=== PATIENT | male | born 1935 | race Caucasian/White ===

== ENCOUNTER 2018-06-28 12:01 | Inpatient (IN) | payer MEDICARE, OTHER, SELFPAY ==
[2018-06-28 12:05] VITALS: BP 102/67; PULSE 110; RESP 20; TEMP 36.6; O2SAT 94; BMI 31.3
--- NOTE | 2018-06-28 12:19 | EKG12_ITS ---
Test Reason : ABDOMINAL PAIN Blood Pressure : / mmHG Vent. Rate : 091 BPM Atrial Rate : 091 BPM P-R Int : 174 ms QRS Dur : 096 ms QT Int : 352 ms P-R-T Axes : 047 -64 048 degrees QTc Int : 432 ms Normal sinus rhythm Left anterior fascicular block Abnormal ECG Confirmed by JOSE CRUZ FOWLER, DIAZ ([id number]), international editorial producer SISSY DAWSON ([id number]) on 06/30/2018 9:14:02 AM Referred By: EVIE Confirmed By:DIAZ BILLINGSLEY MD
[2018-06-28] MEDS: 0.9% Normal Saline 1,000 ML 125 ML IV ×2 (12:36→18:21)
[2018-06-28] MEDS: morphine 8 MG/ML Syringe IV (12:36)
[2018-06-28] MEDS: Ondansetron 4 MG/2 ML Vial IV ×2 (12:36→18:21)
[2018-06-28 12:41] LABS: Absolute Neutrophil Count 8.2 X10^3/uL (2.0-7.7); Basophil# 0.03 X10^3/uL; Basophil% 0.3 % (0-1); Differential Indicated SCAN CRITERIA MET; Eosinophil# 0.05 X10^3/uL; Eosinophils% 0.5 % (0-5); Hematocrit 52.5 % (40-54); Hemoglobin 17.7 g/dl (13.0-16.5); Lymphocyte % 4.4 % (19-41); Mean Corp Hgb Conc 33.7 g/gl (32-36); Mean Corpuscular Hgb 31.5 pg (27.0-32.0); Mean Corpuscular Volume 93.4 fL (80-94); Mean Platelet Vol. 9.4 fl (6.2-12.0); Monocyte# 0.45 X10^3/uL; Monocyte% 4.9 % (0-10); Neutrophil # 8.22 X10^3/uL (2.7-7.7); Neutrophil % 89.7 % (47-70); POSITIVE COUNT NO; POSITIVE DIFFERENTIAL YES; POSITIVE MORPHOLOGY NO; Platelet Count 198 K/mm3 (150-450); RBC Distribution Width CV 14.1 % (11.6-14.6); Red Blood Count 5.62 M/mm3 (4.6-6.2); White Blood Count 9.2 K/mm3 (4.4-11.0)
--- NOTE | 2018-06-28 12:47 | CT_ITS ---
STUDY: CT ABDOMEN AND PELVIS WITH CONTRAST REASON FOR EXAM: Male, 83 years old. Right-sided abdominal pain with nausea and vomiting. RADIATION DOSAGE (If Supplied By Facility): CTDIvol = ( 18.65 ) mGy, DLP = ( 1235.66 ) mGycm TECHNIQUE: Transaxial images were obtained from the dome of the diaphragm to the symphysis pubis without oral contrast. 100 ml of Isovue 300 contrast was administered. Sagittal and coronal images were reconstructed. Individualized dose optimization techniques were used for this CT. COMPARISON: Comparison is made with prior study dated November 05, 2016. FINDINGS: Stable increased linear markings at the lung bases suggestive of scarring. Stable lobulated nodular density in the posterior segment of the right lower lobe measuring 2.5 cm x 2.5 cm. There appears to be fat within the nodular density. Coronary artery calcification. There is decreased attenuation of the liver consistent with steatosis. The patient is status post cholecystectomy. Normal spleen. Normal pancreas. The zones of a 1.5 cm fat-containing lesion in the left adrenal gland. This may represent a myelolipoma. There is a 1.4 cm x 2.6 cm inhomogeneously enhancing solid mass arising from the inferior lateral aspect of the right kidney. This has increased in size as compared to prior study. Normal left kidney. Fluid distention of the stomach. Normal small intestine. There are multiple colonic diverticula consistent with diverticulosis. The appendix is visualized and appears normal. There is diffuse atherosclerotic calcification of the abdominal aorta and its major visceral branches. There is evidence of an infrarenal abdominal aortic aneurysm with a transverse dimension of 4.4 cm. Stable ectasia and dilatation of the common iliac arteries bilaterally. Mural thrombus is seen. Normal inferior vena cava. Normal retroperitoneum. Normal urinary bladder. There is enlargement of the prostate gland. It is lobulated and contour. It measures 6.1 cm x 4 cm. Normal abdominal wall. There are diffuse degenerative changes of the visualized lumbar spine. Stable loss of height of the T12 and L1 vertebrae. CT/Abdomen/Pelvis W IV Cont ONLY IMPRESSION: Stable right lower lobe pulmonary nodule. 1.4 cm x 2.6 cm inhomogenous enhancing solid mass arising from the inferior lateral aspect of the right kidney. A neoplastic process should be ruled out. Infrarenal abdominal aortic aneurysm with mural thrombus. Irregular enlargement of the prostate. Electronically Signed: Clayton Stevens MD at 13:43 EST Tel [phone], Service support ,
--- NOTE | 2018-06-28 12:50 | ED.VISSUMM ---
- ER Visit Summary Date of Service: 06/28/18 Chief Complaint: [] Right-sided abdominal pain since last night vomiting History of Present Illness: The patient is a 83 M [] history of prior cholecystectomy, 2 years later developed right sided abdominal pain found to have retained stone, history of unspecified right lung nodule that stable, unspecified renal lesions that are being followed up via CT his usual state of health until yesterday at 8 PM when he began having vague right-sided abdominal pain that intensified he vomited once or twice and he vomited again this morning came in for evaluation he points to the right upper quadrant as focus of his pain goes into his back he has had no fever no cough runny diarrheal bowel movements no blood in his vomitus consisted of old food no blood he has had no exposures no antibiotics he is followed up with all of his physicians recently and had a recent CT of the chest for follow-up of lung nodule, he scheduled to have a follow-up study for renal lesion but otherwise he has not been ill except as above Physical Examination: [] 102/68 afebrile General, no distress resting comfortably he does have moderate amount of pain to the right side abdomen HEENT is generally unremarkable The neck is supple no adenopathy Cardiovascular, regular rate and rhythm Lungs, clear bilateral Abdomen, soft, there is moderate amount of pain to palpation of the right side abdomen there is guarding no rebound no obvious mass slightly distended Extremities, no clubbing cyanosis or edema Neurologic, awake alert answering questions appropriately moving all 4 extremities Test Results: [] Emergency Department Course and Treatment: [] His complaints and all of the above screening labs are obtained urinalysis will obtain IV CT contrast given his scheduled CT contrast for the renal disorder This time the CT scan shows generally no acute findings the lesion in the right kidney is larger than before please see that report, his labs UA are unremarkable, he continues to have vomiting explained test results to him given all the above will arrange for admission via the hospitalist for further management Treatment Plan: [] Disposition: [] Admit stable Impression: [] Right-sided abdominal pain etiology unclear vomiting diarrhea, enlarging right renal mass, stable right lung mass This note was generated with [employer] dictation software. It may contain incorrect words, spelling, and punctuation that were not noted in review of the chart prior to signing ED Disposition - Plan for ED Patient: Chief Complaint: Abd Pain Referrals: Kameron Murillo MD [Primary Care Provider] -
[2018-06-28 12:57] LABS: AST(SGOT) 25 U/L (15-37); Alanine Aminotransfer ALT/SGPT 38 U/L (16-61); Alkaline Phosphatase 53 U/L (45-117); Anion Gap 9 (5-15); BUN 32 mg/dL (7-18); BUN/Creat Ratio 25.4 RATIO (10-20); Bilirubin, Direct 0.35 mg/dL (0.00-0.30); Calcium,Total 9.2 mg/dL (8.5-10.1); Chloride 108 mmol/L (98-107); Creatinine, Serum 1.26 mg/dL (0.70-1.30); EST Glomerular Filtration Rate 58 mL/min (>60); Est Glom Filt Rate - Afr Amer 71 mL/min (>60); Estimated Creatinine Clearance 45.98 ml/min; Globulin 3.9 g/dL (2.2-4.2); Glucose 123 mg/dL (74-106); Lipase 243 U/L (73-393); Potassium 4.2 mmol/L (3.5-5.1); Protein, Total 7.9 g/dL (6.4-8.2); Sodium Level 140 mmol/L (136-145)
[2018-06-28 13:13] LABS: Platelet Estimate ADEQUATE (ADEQ); Red Cell Morphology NORM C+C NORMAL (NORM C&C)
--- NOTE | 2018-06-28 13:41 | ED.RN ---
PT PULSE OX 88-89% ON RA, 2L O2 APPLIED VIA NC.
[2018-06-28] MEDS: Morphine 4 MG/ML Syringe IV (14:16)
[2018-06-28 14:53] LABS: Red Blood Cells-Urine 0 SEEN /hpf (0-5); White Blood Cells 0 SEEN /hpf (0-5)
--- NOTE | 2018-06-28 15:19 | NURSING ---
DR AILEEN BAILEY
[2018-06-28 15:39] VITALS: BP 111/62; PULSE 72; RESP 19; O2SAT 99
[2018-06-28 15:40] LABS: Color, Urine Yellow (Yellow); Glucose, Dipstick Normal (Normal); Ketone-Dipstick Negative (Negative); Leukocyte Esterase-Dipstick Negative /ul (Negative); Nitrite-Dipstick Negative (Negative); Occult Blood-Urine Negative /ul (Negative); Protein-Dipstick Negative (Negative); Urine Bilirubin Dipstick Negative (Negative); Urine Clarity Clear (Clear); Urine Urobilinogen Normal (Normal)
--- NOTE | 2018-06-28 15:44 | HP.PCM_ITS ---
Problem List (1) HTN (hypertension), benign Status: Chronic (2) Chronic obstructive lung disease Status: Chronic (3) Dyslipidemia Status: Chronic (4) Hx-TIA (transient ischemic attack) Status: Chronic (5) History of gastrointestinal bleeding Status: Chronic (6) Peripheral neuropathy Status: Chronic (7) GERD (gastroesophageal reflux disease) Status: Chronic (8) BPH (benign prostatic hyperplasia) Status: Chronic History of Present Illness Date of Admission: 06/28/18 Chief Complaint: Abdominal pain, N/V, diarrhea The patient is a 83 year old M who presents to the Emergency Room due to abdominal pain, nausea, vomiting, diarrhea. Patient states shortly after dinner last evening he developed significant abdominal pain which extended across the top of his abdomen. He states pain was sharp in nature and not located in one specific area. He has had repeat episodes of emesis since that time. Patient reports diarrhea approximately every 2 hours. He denies hematemesis, denies blood in stool. He denies fever, chills. He denies recent antibiotic use. He reports a history of recurrent diverticulitis however he states his current symptoms feel different than prior episodes of diverticulitis. He states he has not had anything like this before. Denies other associated symptoms. He has a past medical history of hypertension, hyperlipidemia, history of TIA, history of GI bleed, COPD, BPH, GERD, peripheral neuropathy. Past Medical History Past Medical History (Chronic Problems): Chronic Problems Peripheral neuropathy (Chronic) GERD (gastroesophageal reflux disease) (Chronic) BPH (benign prostatic hyperplasia) (Chronic) HTN (hypertension), benign (Chronic) Chronic obstructive lung disease (Chronic) Dyslipidemia (Chronic) Hx-TIA (transient ischemic attack) (Chronic) History of gastrointestinal bleeding (Chronic) Allergies cerivastatin sodium [From Baycol] Allergy (Severe, Verified 06/28/18 12:08) Other KIDNEY FAILURE gemfibrozil [From Lopid] Adverse Reaction (Verified 06/28/18 12:08) Other meperidine [From Demerol] Adverse Reaction (Verified 06/28/18 12:08) Other Home Medications: Ambulatory Orders Medication Instructions Recorded Albuterol Inhaler [Ventolin Hfa] 2 puff INHALATION Q4H PRN PRN 07/05/14 Budesonide/Formoterol 80-4.5 2 puff INHALATION BID 12/19/14 [Symbicort 80-4.5 Mcg Inhaler] Clopidogrel Bisulfate [Plavix] 75 mg PO DAILY 07/05/14 Fenofibrate [Tricor] 145 mg PO DAILY 07/05/14 Gabapentin [Neurontin] 100 mg PO TIDCM 07/05/14 Ramipril [Altace] 10 mg PO DAILY 07/05/14 Pantoprazole Sodium [Protonix] 40 mg PO DAILY 08/21/14 Cholecalciferol (VIT D3) [Vitamin 3,000 unit PO BID 11/23/14 D3] Meclizine HCl [Antivert] 25 mg PO DAILY PRN PRN 11/23/14 Tamsulosin HCl [Flomax] 0.4 mg PO DAILY 11/23/14 Ipratropium [Atrovent Aerosols] 0.5 mg INHALATION Q8H PRN PRN 11/05/16 Surgical History: cholecystectomy, tonsillectomy, - - .Right eye surgery, Left knee surgery, lung biopsy, bile duct stone removal. 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 HEENT: Denies: Head Aches, Sinus Congestion, Sinus Drainage Cardiovascular: Denies: Chest Pain, Edema, Palpitations, Syncope Respiratory: Denies: Cough, Shortness of breath at rest, Sputum production Gastrointestinal: Reports: Abdominal Pain, Diarrhea, Nausea, Vomiting. Denies: Hematemesis, Hematochezia, Melena Genitourinary: Denies: Dysuria Musculoskeletal: Denies: Joint Pain, Joint Tenderness Skin: Denies: Rash, Wounds Neurological: Denies: Focal weakness, Numbness, Tingling Psychiatric: Denies: Anxiety, Depression, Homicidal Ideations, Suicidal Ideations Hematologic/ Lymphatic: Denies: Easy Bruising, Easy Bleeding VTE Information - Inpt Only VTE Present on Admission: No VTE Mechan Device Prophylaxis: None VTE Pharm Prophylaxis ordered?: Yes - Physical Exam General: Alert, Oriented x3, Cooperative, - - Appears uncomfortable HEENT: Atraumatic, PERRLA, EOMI, Normocephalic Oral: Dry Mucosa Neck: Supple, No JVD, Negative Carotid Bruits Lungs: Clear to auscultation, Diminished Cardiovascular: Regular Rhythm, Normal S1, Normal S2, No murmurs, Tachycardic Abdomen: Bowel Sounds Present, Soft, Distended, Obese, Tender - Diffuse Extremities: No clubbing, No cyanosis, No edema, Capillary Refill Less than 3 Seconds Skin: No rashes, No breakdown Musculoskeletal: No Tenderness to Palpation of Joints or Extremities Neurological: Cranial nerves II-XII grossly intact, Neuro grossly intact Psych/Mental Status: Normal Affect, Appropriate Vital Signs Temp Pulse Resp BP Pulse Ox 97.9 F 110 H 20 H 102/67 94 06/28/18 12:05 06/28/18 12:05 06/28/18 12:05 06/28/18 12:05 06/28/18 12:05 Oxygen Delivery Method Room Air Weight: 212 lb Body Mass Index (BMI) 31.3 Laboratory Tests Past 24 Hrs 06/28/18 06/28/18 06/28/18 12:30 12:30 14:50 WBC 9.2 RBC 5.62 Hgb 17.7 H Hct 52.5 MCV 93.4 MCH 31.5 MCHC 33.7 RDW 14.1 RDW Differential 47.0 H Plt Count 198 MPV 9.4 Immature Gran % (Auto) 0.200 Neut % (Auto) 89.7 H Lymph % (Auto) 4.4 L [place] % (Auto) 4.9 Eos % (Auto) 0.5 Baso % (Auto) 0.3 Absolute Neuts (auto) 8.2 H Absolute Lymphs (auto) 0.40 L Total Counted Not Reportable Differential Comment Platelet Estimate ADEQUATE RBC Morphology NORM C+C Sodium 140 Potassium 4.2 Chloride 108 H Carbon Dioxide 23.0 Anion Gap 9 BUN 32 H Creatinine 1.26 Estim Creat Clear Calc 45.98 Est GFR (MDRD) Af Amer 71 Est GFR (MDRD) Non-Af 58 L BUN/Creatinine Ratio 25.4 H Glucose 123 H Calcium 9.2 Total Bilirubin 1.00 Direct Bilirubin 0.35 H AST 25 ALT 38 Alkaline Phosphatase 53 Troponin I < 0.015 Total Protein 7.9 Albumin 4.0 Globulin 3.9 Lipase 243 Urine Color Pending Urine Clarity Pending Urine pH Pending Ur Specific [place] Pending Urine Protein Pending Urine Glucose (UA) Pending Urine Ketones Pending Urine Occult Blood Pending Urine Nitrite Pending Urine Bilirubin Pending Urine Urobilinogen Pending Ur Leukocyte Esterase Pending Urine RBC Pending Urine WBC Pending Ur Squamous Epith Cells Pending Urine Bacteria Pending Urine Mucus Pending Assessment/Plan All Active Problems Change in mental status (Acute) 1. Abdominal pain, N/V, diarrhea-Acute viral gastroenteritis? Send stool for cdiff, enteric pathogen panel, lactoferrin. IV fluids. PRN zofran for nausea. P RN pain regimen. CT of abdomen and pelvis showed stable right lower lobe pulmonary nodule. 1.4cmX2.6cm and homogenous enhancing solid mass arising from the inferior lateral aspect of the right kidney. Infrarenal abdominal aortic aneurysm with mural thrombus. 2. Right renal mass-CT of abdomen and pelvis showed 1.4cmX2.6cm and homogenous enhancing solid mass arising from the inferior lateral aspect of the right kidney. Patient will need further outpatient evaluation by urology, arrange outpatient follow-up with Dr. Zavala. 3. Chronic lung nodule-stable per CT. Follows with Dr. Braov, Pulmonary Medicine. Continue outpatient follow-up. 4. Hypertension-stable, continue home ramipril regimen. 5. Hyperlipidemia-continue fenofibrate. 6. History of TIA-continue Plavix, fenofibrate. 7. History of GI bleed/GERD-continue PPI. 8. COPD-no acute exacerbation. Albuterol aerosol as needed. 9. BPH-continue Flomax regimen. 10. Peripheral neuropathy-continue home gabapentin regimen. DVT prophylaxis- Lovenox sc This patient was seen by CHRIS Choudhury under the supervision of Dr. Daigle.
[2018-06-28 16:22] LABS: Squamous Epithelial Cells - UA 0-5 SEEN /hpf (0-5)
--- NOTE | 2018-06-28 16:22 | NURSING ---
MED SURG OBS SEMENTI RT SIDE ABD PAIN, INTRACTABLE VOMITING, RT RENAL MASS
[2018-06-28 16:24] LABS: Bacteria 0 SEEN /hpf (None Seen); Mucous, Urine RARE /hpf (<or=2+)
[2018-06-28 16:34] VITALS: BMI 31.3
[2018-06-28 17:29] VITALS: BP 119/76; PULSE 81; RESP 21; O2SAT 93
[2018-06-28 17:31] VITALS: BMI 31.3
[2018-06-28 18:04] VITALS: BP 119/62; PULSE 74; RESP 16; TEMP 36.3; O2SAT 91
[2018-06-28] MEDS: Morphine 2 MG/ML Syringe IV (18:21)
[2018-06-28 19:53] VITALS: BP 125/72; PULSE 69; RESP 18; TEMP 36.8; O2SAT 94
[2018-06-28 20:00] VITALS: O2SAT 94
--- NOTE | 2018-06-28 20:30 | NURSING ---
3 attempts made at NG tube insertion by this RN and rim fire charger operator. Pt tolerated procedure poorly, c/o pain and would not allow RN to advance NG without pulling tube out. Spoke with Dr. Renner about failed attempts at NG insertion and received order for Cetacaine spray to assist with numbing prior to NG insertion. Returned to pt's room to educated on Cetacaine spray. Pt states, I don't want that tube. I spoke with some people that are in the same profession as you, and they said I don't need that tube unless I have an obstruction! I'm not having any nausea, so I don't need it. Explained to pt that he recently received Zofran and Morphine for pain and nausea, so the pain and nausea may return after these meds wear off. Pt verbalizes understanding and again states he will not allow an NG tube to be placed.
[2018-06-29] VITALS (7 sets, daily range): BP systolic 99–120; BP diastolic 49–70; PULSE 60–69; RESP 16–18; TEMP 36.4–37; O2SAT 92–95
[2018-06-29] MEDS: 0.9% Normal Saline 1,000 ML 125 ML IV (01:59)
--- NOTE | 2018-06-29 05:55 | RAD_ITS ---
STUDY: X-RAY - ACUTE ABDOMINAL SERIES REASON FOR EXAM: Male, 83 years old. Abdominal distention and pain. TECHNIQUE: Single view of the chest. Supine, and erect view(s) of the abdomen were obtained. COMPARISON: CT abdomen and pelvis June 28, 2018 FINDINGS: 3 cm soft tissue nodule in the medial right lung base is unchanged. There are mild chronic appearing peripheral most distal densities in the lung bases as well. No new infiltrate Normal size heart. Normal mediastinum and antwan. Normal visualized pulmonary arteries. There is stable atherosclerotic calcification of the aortic arch with tortuosity of the mid to distal descending aorta. There is gas in nondistended segments of small bowel and colon. Occasional fluid levels are present on upright exam, which suggests a mild generalized ileus. No demonstrated free gas. There are atherosclerotic vascular calcifications, but the aortic and common iliac artery aneurysms seen by CT are not clearly depicted here. There are also calcified phleboliths in the pelvic soft tissues. There are diffuse degenerative changes of the visualized spine. Left lateral wedging of the L3 vertebra and 23 degree scoliosis of the spine centered at L3 are unchanged. There is moderate degenerative narrowing of the bilateral hip joint spaces. RAD/Acute Abdomen Inc Chest IMPRESSION: 1. Mild generalized ileus without distention. No free gas. 2. Atherosclerotic vascular calcifications noted, but the aortic and common iliac artery aneurysms evident on CT are not clearly depicted here. 3. Stable soft tissue nodule in the medial right lung base as well as chronic appearing peripheral basilar interstitial densities. 4. Left lateral wedging of the L3 vertebra, mid lumbar dextroscoliosis, as well as degenerative changes of the spine and hips are stable. Electronically Signed: Ricky Baxter MD at 17:47 EST , Service support ,
[2018-06-29 06:28] LABS: Anion Gap 8 (5-15); BUN 29 mg/dL (7-18); BUN/Creat Ratio 23.2 RATIO (10-20); Calcium,Total 8.3 mg/dL (8.5-10.1); Chloride 112 mmol/L (98-107); Creatinine, Serum 1.25 mg/dL (0.70-1.30); EST Glomerular Filtration Rate 59 mL/min (>60); Est Glom Filt Rate - Afr Amer 71 mL/min (>60); Estimated Creatinine Clearance 46.35 ml/min; Glucose 92 mg/dL (74-106); Potassium 4.1 mmol/L (3.5-5.1); Sodium Level 144 mmol/L (136-145)
--- NOTE | 2018-06-29 07:36 | PN_ITS ---
Subjective: Patient was seen and examined. He had diarrhea at this morning about 200 mils. Reportedly had 100 mils of diarrhea yesterday. NG tube resolved. Denied any nausea or vomiting. He is eager to eat. No more abdominal pain. Vitals/I&O's: Vital Signs Temp Pulse Resp BP Pulse Ox 98.6 F 69 18 120/69 92 06/29/18 02:01 06/29/18 02:01 06/29/18 02:01 06/29/18 02:01 06/29/18 02:01 Oxygen Flow Rate (L/min) 1 Oxygen Delivery Method Nasal Cannula Weight: 96.162 kg Body Mass Index (BMI) 31.3 Intake and Output for Last 24 Hours 06/27/18 06/28/18 06/29/18 23:59 23:59 23:59 Intake Total 1615 / 1615 Output Total 600 / 600 Balance 1015 / 1015 General: Alert, Oriented x3, Cooperative, No apparent distress HEENT: Atraumatic, PERRLA, EOMI, Normocephalic Neck: Supple, No JVD, Negative Carotid Bruits Lungs: Clear to auscultation, Normal air movement Cardiovascular: Regular rate, Regular Rhythm, Normal S1, Normal S2, No murmurs Abdomen: Bowel Sounds Present, Soft, Non Tender, Non-Distended, No Hepato- splenomegaly Extremities: No edema Skin: No rashes, No breakdown Musculoskeletal: No Tenderness to Palpation of Joints or Extremities Lymphatic: No Cervical, Supraclavicular, or Inguinal Adenopathy Neurological: Cranial nerves II-XII grossly intact, Neuro grossly intact Psych/Mental Status: Normal Affect, Appropriate Microbiology Past 72 Hours 06/28/18 19:10 Stool C. difficile DNA Amplification - Final 06/28/18 19:10 Stool Stool Lactoferrin - Final Laboratory Results 06/28/18 12:30: WBC 9.2, RBC 5.62, Hgb 17.7 H, Hct 52.5, MCV 93.4, MCH 31.5, MCHC 33.7, RDW 14.1, RDW Differential 47.0 H, Plt Count 198, MPV 9.4, Immature Gran % (Auto) 0.200, Neut % (Auto) 89.7 H, Lymph % (Auto) 4.4 L, [place] % (Auto) 4.9, Eos % (Auto) 0.5, Baso % (Auto) 0.3, Absolute Neuts (auto) 8.2 H, Absolute Lymphs (auto) 0.40 L, Total Counted Not Reportable, Differential Comment , Platelet Estimate ADEQUATE, RBC Morphology NORM C+C 06/28/18 12:30: Sodium 140, Potassium 4.2, Chloride 108 H, Carbon Dioxide 23.0, Anion Gap 9, BUN 32 H, Creatinine 1.26, Estim Creat Clear Calc 45.98, Est GFR (MDRD) Af Amer 71, Est GFR (MDRD) Non-Af 58 L, BUN/Creatinine Ratio 25.4 H, Glucose 123 H, Calcium 9.2, Total Bilirubin 1.00, Direct Bilirubin 0.35 H, AST 25, ALT 38, Alkaline Phosphatase 53, Troponin I < 0.015, Total Protein 7.9, Albumin 4.0, Globulin 3.9, Lipase 243 06/28/18 14:50: Urine Color Yellow, Urine Clarity Clear, Urine pH 5.0, Ur Specific [place] 1.010, Urine Protein Negative, Urine Glucose (UA) Normal, Urine Ketones Negative, Urine Occult Blood Negative, Urine Nitrite Negative, Urine Bilirubin Negative, Urine Urobilinogen Normal, Ur Leukocyte Esterase Negative, Urine RBC 0 SEEN, Urine WBC 0 SEEN, Ur Squamous Epith Cells 0-5 SEEN, Urine Bacteria 0 SEEN, Urine Mucus RARE 06/29/18 05:45: Sodium 144, Potassium 4.1, Chloride 112 H, Carbon Dioxide 24.0, Anion Gap 8, BUN 29 H, Creatinine 1.25, Estim Creat Clear Calc 46.35, Est GFR (MDRD) Af Amer 71, Est GFR (MDRD) Non-Af 59 L, BUN/Creatinine Ratio 23.2 H, Glucose 92, Calcium 8.3 L Current Medications Acetaminophen (Tylenol) 650 mg RECTAL Q6H PRN PRN PRN Reason: PAIN Albuterol Sulfate (Ventolin Aerosols) 2.5 mg INHALATION Q2H PRN PRN PRN Reason: SHORTNESS OF BREATH Cholecalciferol (Vitamin D) 3,000 unit PO BID [facility] Last Admin: 06/28/18 22:21 Dose: Not Given Clopidogrel Bisulfate (Plavix) 75 mg PO DAILY [facility] Fenofibrate (Tricor) 145 mg PO DAILY [facility] Gabapentin (Neurontin) 100 mg PO TID [facility] Last Admin: 06/29/18 05:13 Dose: Not Given Pantoprazole Sodium 40 mg/ (Sodium Chloride) 110 mls @ 330 mls/hr IV Q12 [facility] Last Admin: 06/28/18 22:21 Dose: 330 mls/hr Sodium Chloride () 1,000 mls @ 125 mls/hr IV .Q8H [facility] Last Admin: 06/29/18 01:59 Dose: 125 mls/hr Morphine Sulfate () 1 - 2 mg IV Q2H PRN PRN PRN Reason: SEVERE PAIN (6-10/10) Last Admin: 06/28/18 18:21 Dose: 2 mg Ondansetron HCl (Zofran) 4 mg IV Q6H PRN PRN PRN Reason: NAUSEA Last Admin: 06/28/18 18:21 Dose: 4 mg Ramipril (Altace) 10 mg PO DAILY [facility] Sodium Chloride () 5 - 15 ml IV UD PRN PRN Reason: SALINE FLUSH Tamsulosin HCl (Flomax) 0.4 mg PO DAILY [facility] Medical Necessity - Tobacco Use Smoking Status: Former smoker Tobacco Use: Cigarettes Assessment/Plan All Active Problems Change in mental status (Acute) 83-year-old male with past medical history of hypertension, history of TIA, hyperlipidemia, peripheral neuropathy who comes in with complaints of abdominal pain, nausea, vomiting and diarrhea. 1. Acute gastroenteritis, likely viral, stool for C. difficile is negative, enteric panel is pending, patient continues to have diarrhea, will continue to monitor expectantly. 2. Right renal mass, seen on CT of abdomen and pelvis, will need outpatient follow-up with Dr. Zavala. 3. Infrarenal abdominal aortic aneurysm with mural thrombus, will follow-up with vascular surgery in the outpatient 4. Chronic lung nodule, following pulmonary medicine in the outpatient. 4. Hypertension, controlled, continue on ramipril, will continue to monitor. 5. Hyperlipidemia, on fenofibrate. 6. History of TIA, on Plavix, fenofibrate. 7. History of GI bleed/GERD, on PPI. 8. COPD, stable, no signs of acute exacerbation. 9. BPH, on flomax 10. Peripheral neuropathy, on gabapentin 11. DVT prophylaxis- Lovenox sc 12. Disposition: Possible dc in am Code Visit Inpatient E&M: 67405 Subs Hosp L2
--- NOTE | 2018-06-29 11:20 | CASEMGMT ---
RUBEN WEEKS ASSESSMENT D/C PLAN: Home w/family support and discharge plans in place. Face to Face with patient for initial transition planning/care coordination assessment. RUBEN WEEKS introduced self and role at [facility]. Son at bedside. Pt voices understanding and consents to assessment at this time. Pt resting in bed in no distress at this time. Pt is A/O at this time and answers all questions appropriately. Care providers, pharmacy, and demographics verified/updated at this time. PCP: [facility] Specialists: Lung specialist. Kidney specialist in [place]. Preferred Pharmacy: [facility] Retail on day of d/c only. [facility] Insurance: [facility], [employer] Prescription Benefit: [employer] Living Will/HPOA: Pt does not currently have LW/HCPOA and declines info at this time. LNOK: , son Living Arrangements: Lives with his in a one-story home. No steps to enter. States is independent. Transportation: Pt states drives self and states no transportation concerns at this time. DME: States uses a cane but no other DME use. Pt states no need for further DME at this time. Does not use home O2. HHC: States has used HHC in the past. Declines need for HHC on discharge. Pt wishes to return home and states has no concerns with going home at time of discharge. CM to follow for home oxygen needs and any further discharge planning/needs. Pt voices no further concerns/needs at this time. Advised pt to ask for CM if any further questions/concerns/needs arise. Voices understanding. Magnus BENNETT RN, CM
[2018-06-29] MEDS: 0.9% Normal Saline 1,000 ML 75 ML IV (11:55)
[2018-06-29] MEDS: Pantoprazole Sodium 40 MG Tablet PO (11:56)
[2018-06-29] MEDS: Clopidogrel Bisulfate 75 MG Tablet PO (11:57)
[2018-06-29] MEDS: Gabapentin 100 MG Capsule PO ×2 (11:57→21:01)
[2018-06-29] MEDS: Tamsulosin HCl 0.4 MG Capsule PO (11:57)
[2018-06-29] MEDS: Fenofibrate 145 MG Tablet PO (11:57)
[2018-06-29] MEDS: Ramipril 10 MG Capsule PO (11:58)
--- NOTE | 2018-06-29 12:36 | NURSING ---
This RN received call from Dr. Sandoval ordering to cancel consult with Dr. Lawton. She states she spoke with Dr. Reid and will be ordering a follow up outpatient. This RN called office and spoke with nel biomedical instrument technician and was notified that consult that had been called in was cancelled at this time by ordering physician. Understanding verbalized. Phone number given to charge phone in case any questions arise.
[2018-06-29] MEDS: Albuterol 2.5 MG/3 ML VIAL.NEB. INHALATION ×2 (13:32→18:56)
--- NOTE | 2018-06-29 16:26 | CHAPLAIN ---
Type of Pastoral Visit _x__ Initial Visit ___ Follow-up Visit ___ On-call Visit ___ General Patient Visit ___ Spiritual Assessment ___ Family Conference ___ Bereavement ___ Rapid Response ___ Code Blue ___ Other (describe below) Pastoral Care Referral From _x__ Patient ___ Family ___ Nurse ___ Physician ___ Service Agent ___ Couples Therapist ___ Other (describe below) Sacrament/Intervention _x__ Active listening ___ Anointing ___ Restorationism ___ Bereavement ___ Communion ___ Theodora exploration ___ ___ Life review _x__ Prayer ___ Reconciliation ___ Sacrament of Sick _x__ Supportive presence ___ Wedding ___ Other (describe below) Pastoral Comments
[2018-06-29] MEDS: Budesonide Respules 0.5 MG/2 ML AMPUL.NEB. INHALATION (18:56)
[2018-06-30] MEDS: 0.9% Normal Saline 1,000 ML 75 ML IV (00:04)
[2018-06-30 05:04] VITALS: BP 98/54; PULSE 60; RESP 14; TEMP 36.8; O2SAT 94
[2018-06-30] MEDS: Gabapentin 100 MG Capsule PO (05:09)
[2018-06-30 06:20] LABS: Absolute Lymphocyte Count 1.39 X10^3/ul (0.83-4.51); Absolute Neutrophil Count 4.6 X10^3/uL (2.0-7.7); Basophil# 0.02 X10^3/uL; Basophil% 0.3 % (0-1); Eosinophil# 0.06 X10^3/uL; Eosinophils% 0.9 % (0-5); Hematocrit 43.9 % (40-54); Hemoglobin 14.1 g/dl (13.0-16.5); Lymphocyte # 1.39 X10^3/ul (4.0); Lymphocyte % 19.8 % (19-41); Mean Corp Hgb Conc 32.1 g/gl (32-36); Mean Corpuscular Hgb 30.9 pg (27.0-32.0); Mean Corpuscular Volume 96.1 fL (80-94); Mean Platelet Vol. 9.5 fl (6.2-12.0); Monocyte# 0.97 X10^3/uL; Monocyte% 13.8 % (0-10); Neutrophil # 4.57 X10^3/uL (2.7-7.7); Neutrophil % 65.2 % (47-70); Platelet Count 156 K/mm3 (150-450); RBC Distribution Width CV 14.1 % (11.6-14.6); RBC Distribution Width SD 50.1 fl (35.1-43.9); Red Blood Count 4.57 M/mm3 (4.6-6.2)
[2018-06-30 06:24] LABS: POSITIVE COUNT NO; POSITIVE DIFFERENTIAL NO; POSITIVE MORPHOLOGY NO
[2018-06-30 06:40] VITALS: BP 99/58; PULSE 60; RESP 16; TEMP 36.8; O2SAT 95
[2018-06-30 06:42] LABS: Anion Gap 8 (5-15); BUN 23 mg/dL (7-18); BUN/Creat Ratio 21.7 RATIO (10-20); Calcium,Total 8.1 mg/dL (8.5-10.1); Chloride 114 mmol/L (98-107); Creatinine, Serum 1.06 mg/dL (0.70-1.30); EST Glomerular Filtration Rate 71 mL/min (>60); Est Glom Filt Rate - Afr Amer 86 mL/min (>60); Estimated Creatinine Clearance 54.66 ml/min; Glucose 96 mg/dL (74-106); Potassium 3.9 mmol/L (3.5-5.1); Sodium Level 145 mmol/L (136-145)
[2018-06-30 06:58] VITALS: PULSE 58; RESP 19; O2SAT 94
[2018-06-30] MEDS: Budesonide Respules 0.5 MG/2 ML AMPUL.NEB. INHALATION (06:58)
[2018-06-30] MEDS: Albuterol 2.5 MG/3 ML VIAL.NEB. INHALATION (06:58)
[2018-06-30 07:58] VITALS: BP 111/60; PULSE 61; RESP 18; TEMP 36.3; O2SAT 93
--- NOTE | 2018-06-30 08:29 | DCINST_ITS ---
- Discharge Diagnoses Current Active Problems: Current Active and Chronic Problems Peripheral neuropathy (Chronic) GERD (gastroesophageal reflux disease) (Chronic) BPH (benign prostatic hyperplasia) (Chronic) Reason(s) for Visit for Discharge Instructions: Nausea, vomiting, diarrhea You will use the following diet at home:: Regular Your food should be the consistency of: Regular Your liquids should be the consistency of: Regular/Thin Discharge Activity: Return to Normal Activity Additional Instructions: Continue on all your medications. Follow-up with your primary doctor within 1-2 weeks. Allergies/Adverse Reactions: Allergies cerivastatin sodium [From Baycol] Allergy (Severe, Verified 06/28/18 12:08) Other KIDNEY FAILURE gemfibrozil [From Lopid] Adverse Reaction (Verified 06/28/18 12:08) Other meperidine [From Demerol] Adverse Reaction (Verified 06/28/18 12:08) Other Medications to take at Discharge Albuterol Inhaler [Ventolin Hfa] 2 puff INHALATION Q4H PRN PRN 07/05/14 Clopidogrel Bisulfate [Plavix] 75 mg PO DAILY 07/05/14 Fenofibrate [Tricor] 160 mg PO DAILY 07/05/14 Ramipril [Altace] 10 mg PO DAILY 07/05/14 Pantoprazole Sodium [Protonix] 40 mg PO DAILY 08/21/14 Cholecalciferol (VIT D3) [Vitamin D3] 3,000 unit PO BID 11/23/14 Tamsulosin HCl [Flomax] 0.4 mg PO DAILY 11/23/14 Ipratropium [Atrovent Aerosols] 0.5 mg INHALATION Q8H PRN PRN 11/05/16 Budesonide/Formoterol 160/4.5 [Symbicort 160/4.5 Mcg Inhaler (SP)] 2 puff INHALATION BID 06/28/18 Gabapentin [Neurontin] 100 mg PO TID 06/28/18 Lactobacillus Acidophilus [Acidophilus] 1 tablet PO TID #30 tablet 06/30/18 Loperamide [Imodium] 2 mg PO Q2H PRN PRN #5 capsule 06/30/18 The following prescriptions were given: Lactobacillus Acidophilus [Acidophilus] 1 tablet PO TID #30 tablet Primary Care Physician: Kameron Murillo MD [Primary Care Provider] - Please follow up with your Primary Care Physician in: within 1-2 weeks Test Results: Test results from this visit will be discussed in further detail at your follow- up appointment, if applicable. Please Follow Up With: Dennis Reid MD When: within 2 weeks to follow-up on abnormal CT findings Proposed Discharge Date: 06/30/18
--- NOTE | 2018-06-30 08:32 | DS.PCM_ITS ---
Discharge Date and Diagnosis Date of Admission: 06/28/18 Date of Discharge: 06/30/18 - Primary Discharge Diagnosis Acute gastroenteritis, likely viral, bacterial etiology ruled out Right renal mass Infrarenal abdominal aortic aneurysm, 4.4cm - Secondary Discharge Diagnosis Chronic Problems Peripheral neuropathy (Chronic) GERD (gastroesophageal reflux disease) (Chronic) BPH (benign prostatic hyperplasia) (Chronic) HTN (hypertension), benign (Chronic) Chronic obstructive lung disease (Chronic) Dyslipidemia (Chronic) Hx-TIA (transient ischemic attack) (Chronic) History of gastrointestinal bleeding (Chronic) Hospital Course and Treatment Imaging Results: Clinical Impression(s) from Imaging Studies Abdomen/Pelvis CT 06/28/18 12:47 IMPRESSION: Stable right lower lobe pulmonary nodule. 1.4 cm x 2.6 cm inhomogenous enhancing solid mass arising from the inferior lateral aspect of the right kidney. A neoplastic process should be ruled out. Infrarenal abdominal aortic aneurysm with mural thrombus. Irregular enlargement of the prostate. Electronically Signed: Clayton Stevens MD at 13:43 EST Tel [phone], Service support , Acute Abdomen Series 06/29/18 05:55 IMPRESSION: 1. Mild generalized ileus without distention. No free gas. 2. Atherosclerotic vascular calcifications noted, but the aortic and common iliac artery aneurysms evident on CT are not clearly depicted here. 3. Stable soft tissue nodule in the medial right lung base as well as chronic appearing peripheral basilar interstitial densities. 4. Left lateral wedging of the L3 vertebra, mid lumbar dextroscoliosis, as well as degenerative changes of the spine and hips are stable. Electronically Signed: Ricky Baxter MD at 17:47 EST , Service support , Operations: None Summary of Care Provided: 83-year-old male with past medical history of hypertension, history of TIA, hyperlipidemia, peripheral neuropathy who comes in with complaints of right sided abdominal pain, nausea, vomiting and diarrhea. His admitting blood work was unremarkable as well as urinalysis. CT scan of the abdomen showed right lung nodule, right kidney mass, dilated abdominal aortic aneurysm, infrarenal. He was managed conservatively initially with NG tube, kept n.p.o., advance to clears with improvement in his nausea. Patient had multiple episodes of diarrhea. Stool studies were negative for C. difficile and for any bacterial etiology. On the day of discharge he had 3-4 bowel movements, was given Imodium as needed. Patient knows about the lung nodule in the renal mass. He will follow-up with his outpatient urology and pulmonology appointments. He will also follow-up with Dr. Reid for the aortic aneurysm. Subjective: On the day of exam, patient felt better, had 3-4 bowel movements that day. Denied abdominal pain. Denied nausea or vomiting. Able to tolerate his diet. Patient was walked around, the lowest SPO2 was 90%, did not qualify for home oxygen. He had had breathing treatments during the hospital stay. Objective: Physical exam: General: Alert, Oriented x3, Cooperative, No apparent distress, obese HEENT: Atraumatic, PERRLA, EOMI, Normocephalic Neck: Supple, No JVD, Negative Carotid Bruits Lungs: Clear to auscultation, Normal air movement Cardiovascular: Regular rate, Regular Rhythm, Normal S1, Normal S2, No murmurs Abdomen: Bowel Sounds Present, Soft, Non Tender, Non-Distended, No Hepato- splenomegaly Extremities: No edema Skin: No rashes, No breakdown Musculoskeletal: No Tenderness to Palpation of Joints or Extremities Lymphatic: No Cervical, Supraclavicular, or Inguinal Adenopathy Neurological: Cranial nerves II-XII grossly intact, Neuro grossly intact Psych/Mental Status: Normal Affect, Appropriate - Physical Exam Vital Signs Temp Pulse Resp BP Pulse Ox 97.4 F L 61 18 111/60 93 06/30/18 07:58 06/30/18 07:58 06/30/18 07:58 06/30/18 07:58 06/30/18 07:58 Oxygen Flow Rate (L/min) 2 Oxygen Delivery Method Room Air Weight: 96.162 kg Body Mass Index (BMI) 31.3 Intake and Output for Last 24 Hours 06/28/18 06/29/18 06/30/18 23:59 23:59 23:59 Intake Total 3355 / 3355 1606 / 1606 Output Total 800 / 800 Balance 2555 / 2555 1606 / 1606 Microbiology Past 72 Hours 06/28/18 19:10 Enteric Bacteriology - Final Stool 06/28/18 19:10 C. difficile DNA Amplification - Final Stool 06/28/18 19:10 Stool Lactoferrin - Final Stool Laboratory Tests Past 24 Hrs 06/30/18 06/30/18 05:32 05:32 WBC 7.0 RBC 4.57 L Hgb 14.1 Hct 43.9 MCV 96.1 H MCH 30.9 MCHC 32.1 RDW 14.1 RDW Differential 50.1 H Plt Count 156 MPV 9.5 Immature Gran % (Auto) 0.000 Neut % (Auto) 65.2 Lymph % (Auto) 19.8 [place] % (Auto) 13.8 H Eos % (Auto) 0.9 Baso % (Auto) 0.3 Absolute Neuts (auto) 4.6 Absolute Lymphs (auto) 1.39 Total Counted Not Reportable Sodium 145 Potassium 3.9 Chloride 114 H Carbon Dioxide 23.0 Anion Gap 8 BUN 23 H Creatinine 1.06 Estim Creat Clear Calc 54.66 Est GFR (MDRD) Af Amer 86 Est GFR (MDRD) Non-Af 71 BUN/Creatinine Ratio 21.7 H Glucose 96 Calcium 8.1 L Discharge Diet: Low fat/ Low Cholesterol, 2000 mg Sodium Diet Discharge Activity: Return to Normal Activity Home Medications: Medications to take at Discharge Albuterol Inhaler [Ventolin Hfa] 2 puff INHALATION Q4H PRN PRN 07/05/14 Clopidogrel Bisulfate [Plavix] 75 mg PO DAILY 07/05/14 Fenofibrate [Tricor] 160 mg PO DAILY 07/05/14 Ramipril [Altace] 10 mg PO DAILY 07/05/14 Pantoprazole Sodium [Protonix] 40 mg PO DAILY 08/21/14 Cholecalciferol (VIT D3) [Vitamin D3] 3,000 unit PO BID 11/23/14 Tamsulosin HCl [Flomax] 0.4 mg PO DAILY 11/23/14 Ipratropium [Atrovent Aerosols] 0.5 mg INHALATION Q8H PRN PRN 11/05/16 Budesonide/Formoterol 160/4.5 [Symbicort 160/4.5 Mcg Inhaler (SP)] 2 puff INHALATION BID 06/28/18 Gabapentin [Neurontin] 100 mg PO TID 06/28/18 Lactobacillus Acidophilus [Acidophilus] 1 tablet PO TID #30 tablet 06/30/18 Loperamide [Imodium] 2 mg PO Q2H PRN PRN #5 capsule 06/30/18 Following Prescrptions Were Given to Patient: Loperamide [Imodium] 2 mg PO Q2H PRN PRN #5 capsule PRN Reason: Diarrhea Lactobacillus Acidophilus [Acidophilus] 1 tablet PO TID #30 tablet Primary Care Physician: Kameron Murillo MD [Primary Care Provider] - Please follow up with your Primary Care Physician in: within 1-2 weeks Please Follow Up With: Dennis Reid MD When: within 2 weeks to follow-up on abnormal CT findings Disposition: Home Minutes spent on discharge:: 40 Patient Condition:: Stable Medical Necessity - Tobacco Use Smoking Status: Former smoker Tobacco Use: Cigarettes Meaningful Use Info Meaningful Use Diagnoses (Choose all that apply): None applicable Code Visit Inpatient E&M: 41016 Disch Hosp
[2018-06-30] MEDS: Loperamide 2 MG Capsule 4 MG PO (09:31)
[2018-06-30] MEDS: Fenofibrate 145 MG Tablet PO (09:32)
[2018-06-30] MEDS: Clopidogrel Bisulfate 75 MG Tablet PO (09:32)
[2018-06-30] MEDS: Pantoprazole Sodium 40 MG Tablet PO (09:33)
[2018-06-30 09:44] VITALS: O2SAT 90
--- NOTE | 2018-07-03 15:56 | CASEMGMT ---
RUBEN WEEKS Discharge Follow-up Phone Call: MOHSENMicaela: Bao Strata: 3 Call Date: 07/03/18 Discharge Date: 06/30/18 Time of Call: 1555 Duration: 4 MINUTES ? Admitting Diagnosis: Viral gastroenteritis, renal mass This RUBEN WEEKS contacted pt via phone regarding discharge follow-up. Pt denies any complaints, states he has been doing well since discharge, is a little weak but improving. Pt denies any further n/v or diarrhea. Pt states he has an appointment with Dr. Murillo and will be discussing the plan going forward in regard to his masses and aneurysm. Pt is awaiting this visit before scheduling any further follow-up with Dr. Reid or urology. Pt denies any additional questions or concerns. Frederic Hernandez RN
--- OUTSIDE RECORDS SUMMARY | 2018-08-14 16:34 | XMS RPT_ITS ---
:1935 Author Organization OHIP Care Team Providers Name Role Phone CLARICE RYDER Attending Unavailable CLARICE RYDER Referring Unavailable JIL HENRIQUEZ (PA) Referring Unavailable JIL HENRIQUEZ (PA) Referring Unavailable JIL HENRIQUEZ (PA) Attending Unavailable JIL HENRIQUEZ (PA) Referring Unavailable CHALINO VALDEZ Attending Unavailable CLARICE RYDER Referring Unavailable CLARICE RYDER Referring Unavailable CLARICE RYDER Attending Unavailable CLARICE RYDER Referring Unavailable CLARICE RYDER Attending Unavailable CLARICE RYDER Referring Unavailable FRED ROWELL Referring Unavailable ELDERBROFIDELIA, CLARICE Evans Referring Unavailable ELDERBROCLARICE MISTRY Attending Unavailable ELDERBROCK, CLARICE Evans Referring Unavailable OLBRYCHFRED Attending Unavailable ELDERBROCK, CLARICE Evans Referring Unavailable OLBRYFRED ENCARNACION Referring Unavailable DIDUREVELYN DO Admitting Unavailable DIDUR, EVELYN WILKERSON Attending Unavailable ELDERBROCK, CLARICE Evans Referring Unavailable DIDUREVELYN DO Primary Care Unavailable ELDERBROCK, CLARICE Evans Consulting Unavailable PROVIDER, UNKNOWN Consulting Unavailable Elderbrock, Clarice Primary Care Unavailable Sementi, Kathy Admitting Unavailable Paintsil, [place] Attending Unavailable LawtonFelix A Consulting Unavailable Sementi, Kathy Admitting Unavailable Elderbrock, Clarice Primary Care Unavailable Sementi, Kathy Consulting Unavailable Sementi, Kathy Attending Unavailable Sementi, Kathy Admitting Unavailable [place], [place] Attending Unavailable Elderbrock, Clarice Primary Care Unavailable [place], [place] Consulting Unavailable Sementi, Kathy Admitting Unavailable [place], [place] Attending Unavailable Elderbrock, Clarice Primary Care Unavailable Paintsil, [place] Consulting Unavailable PROBLEMS PROBLEMS DATE TYPE CONDITION / CODE ATTENDING STATUS SOURCE 08/01/2018 Active Chronic NA Active [facility] obstructive [place] pulmonary disease, Repository unspecified / J44.9(ICD-10) 10/30/2015 Active Other nonspecific NA Active [facility] abnormal finding [place] of lung field / Repository R91.8(ICD-10) 06/25/2015 Active Hyperlipidemia, NA Active [facility] unspecified / [place] E78.5(ICD-10) Repository 07/14/2006 Active Essential NA Active [facility] (primary) [place] hypertension / Repository I10(ICD-10) 02/03/2018 Active Other specified NA Active [facility] disorders of [place] kidney and ureter Repository / N28.89(ICD-10) 11/23/2017 Active 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[facility] of right kidney, [place] except renal Repository pelvis / C64.1(ICD-10) 11/22/2017 Active Encounter for NA Active [facility] screening for [place] other disorder / Repository Z13.89(ICD-10) PROCEDURES PROCEDURES No Procedure Records FoundRESULTS RESULTS PROGRESS Observed: 08/01/2018 Status: COMPLETED Source: [place] 4:49 PM [facility] REPOSITORY HNO ID: [id number] Author: Fred Rowell Service: (none) Author Type: Physician Type: Progress Notes Filed: 08/01/2018 5:00 PM Note Text: [facility] [place], 08/01/2018: INTERVAL HISTORY: Mr. Whitney has no complaints when questioned about exertional shortness of breath, cough, wheezing. He claims consistent compliance with twice daily Symbicort, but rarely if ever needs albuterol inhaler. His spouse does seem to notice, He has slowed down a bit. When questioned further, Mr. Whitney does not disagree. No pleuritic chest pain, purulent sputum, hemoptysis. 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 ROS: Reviewed with patient, confirmed as documented by Briana Nuñez LPN. TO Allergies reviewed and updated, and medications reconciled today. Immunization History Administered Date(s) Administered Influenza Seasonal - High Dose - Age 65+ 06/25/2015 06/28/2016 03/31/2017 05/22/2018 Influenza Seasonal Inj Age 3+ 05/13/2014 Influenza Vaccine, Split-Non Spec 04/30/2009 04/22/2010 05/22/2012 05/21/2013 Pneumococcal-13 Vac Conjugate 06/25/2015 Pneumovax 04/17/2006 TD Adult 02/09/2012 PMH, FAMH, SOCH: Updated with patient today. PHYSICAL EXAMINATION: BP 122/80 Pulse 77 Resp 18 Wt 216 lb (98.0kg) SpO2 93% Gen: No acute distress. Cooperative with examination. ENT: Sclerae clear. Nares clear. Oral hygeine/dentition good. Pharynx clear. No halitosis. Resp: No stridor, accessory respiratory muscle use, supra- sternal or intercostal retractions. No crackles, wheezes, rubs. CV: Regular rythm. Heart tones normal. Radial pulses normal. Abd: Not distended. MSK: No kyphoscoliosis. Ext: Warm and well perfused. No clubbing, cyanosis, edema. Skin: Tanned. Texture normal. No rash. Neuro: Mental status normal. Affect normal. Muscle strength symmetrical. No tremor. DATA REVIEW: CT Chest report 06/26/2018 - I have personally and independently reviewed serial CT chest images and I appreciate no interval 06/2018, 07/2017, 07/06/2016. TO Spirometry today and 08/14/2014. IMPRESSION AND RECOMMENDATIONS: RLL Lung mass likely represents rounded atelectasis. Current CT chest without change compared to 07/2017, and has not changed since 2016. - I do not believe there is reason to repeat scanning with this stability. COPD/chronic bronchitis. Current PFT normal and without decline compared to 08/14/2014. - Increasing shortness of breath with exertion may be related to advancing age and deconditioning; although, discuss with Dr. Ryder, especially if associated with exertional chest discomfort. - Continue Symbicort twice daily. - Continue Albuterol HFA inhaler, 2 inhalations 10?15 minutes prior to activities associated with shortness of breath, and as needed for rescue relief of shortness of breath or wheezing, up to 4 times daily. Fred Rowell MD, [facility] [place] [facility] [address] [place] [address] P: [phone] F: [phone] [email or web address] OBSOLETE Observed: 08/01/2018 Status: COMPLETED Source: [place] 2:30 PM [facility] REPOSITORY Procedure (PULMWS) PACO WHITNEY ([id number]) 1935 M Date Time Provider Department 08/01/18 2:30 PM RESPIRATORY THERAPIST [facility] WSTRPULMWS During your visit today, we recorded the following information about you: Weight Height 97.5 kg 1.676 m Referring Provider: FRED ROWELL [[id number]] Allergies As of Date: 08/01/2018 Noted Allergy Reaction baycolOther] [Other] 09/08/2006 14 - Other: See Comments Comments: Rhabdomyolysis. DEMEROL (MEPERIDINE (PF)) 11/18/2016 1 - Mental Status Change LOPID (GEMFIBROZIL) 07/14/2006 14 - Other: See Comments Comments: Myalgia. Date Reviewed: 08/01/2018 Reviewed by: Fred Rowell - Fully Assessed Reason for Visit: Spirometry [191] Visit Diagnosis:COPD with chronic bronchitis (HCC) [J44.9] Order(s):SPIROMETRY BASELINE ONLY [2303599] Order #: [id number]. #:[id number] Prescriptions as of 08/01/2018 Sig: ACIDOPHILUS ORAL Take by mouth. ALBUTEROL SULFATE HFA 90 MCG/* Inhale 1-2 Puffs as instructe* PANTOPRAZOLE 40 MG TABLET,DEL* Take 1 tablet by mouth daily * CLOPIDOGREL 75 MG TABLET Take 1 tablet by mouth once d* GABAPENTIN 100 MG CAPSULE Take 1 capsule by mouth three* FENOFIBRATE 160 MG TABLET Take 1 tablet by mouth once d* RAMIPRIL 10 MG CAPSULE Take 1 capsule by mouth once * TAMSULOSIN 0.4 MG CAPSULE TAKE ONE CAPSULE BY MOUTH ONC* HYDROCORTISONE 2.5 % TOPICAL * Apply to affected area 3-4 ti* BUDESONIDE-FORMOTEROL HFA 80 * Inhale 2 Puffs as instructed * MECLIZINE 25 MG TABLET Take 1 tablet by mouth every * CLOTRIMAZOLE-BETAMETHASONE 1 * Apply 1 application to affect* HYDROCODONE 10 MG-CHLORPHENIR* Take 5 mL by mouth twice leyla* [id number] * Use 4 Drops in the ears four * IPRATROPIUM BROMIDE 0.02 % SO* Use via nebulizer. 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] INVALID FOR* Diverticulosis [K57.90] INVALID FOR* Right renal mass [N28.89] INVALID FOR* Renal cyst [N28.1] INVALID FOR* Benign non-nodular prostatic hyperplasia with l*INVALID FOR* Abdominal aortic aneurysm without rupture (HCC)*INVALID FOR* Lung mass [R91.8] INVALID FOR* Encounter Status:Closed by DEA OMER RRT on 08/01/18 CNOV Observed: 08/01/2018 Status: COMPLETED Source: [place] 1:30 PM [facility] REPOSITORY Office Visit (PULMWS) PACO WHITNEY ([id number]) 1935 M Date Time Provider Department 08/01/18 1:30 PM FRED ROWELL PULJABIER During your visit today, we recorded the following information about you: Pulse Respiration Blood pressure Weight 77/minute 18/minute 122/80 98 kg Briana Nuñez STACK MATCHER 08/01/2018 2:01 PM Addendum ROS: General: Generally feels well. Appetite good. Eyes, Ears, nose, throat: denies post nasal drip. denies rhinorrhea. denies purulent nasal discharge. denies epistaxis. denies hoarseness. Vision stable. Cardiac: denies angina, denies edema, denies orthopnea. GI: Recent GI illness with nausea and emesis evaluated at [facility], since resolved. 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 Menses: n/a Musculoskeletal: notes neuropathy pain. Neuro: denies headache, denies focal weakness. denies tremor. Skin: denies rash. Otherwise negative. Attestation signed by Fred Rowell at 08/01/2018 4:57 PM to a previous version Reviewed with patient, confirmed as documented by Briana Nuñez LPN. TO Fred Rowell MD 08/01/2018 2:[address] chest without change compared to 07/2017, and has not changed since 2016. - I do not think there is reason to repeat scanning with this stability. Increasing shortness of breath with exertion may be related to - 2014 Pulmonary Function Testing was normal, current shows no decline. - It is possible that you tore more easily because you are 4 years older. - If increasing shortness of breath continue to trouble you, especially if you develop chest discomfort with that exertional shortness of breath, you and Dr. Ryder may want to investigate the heart. Continue Symbicort twice daily. Continue Albuterol HFA inhaler, 2 inhalations 10?15 minutes prior to activities associated with shortness of breath, and as needed for rescue relief of shortness of breath or wheezing, up to 4 times daily. Fred Rowell MD, [facility] [address] [place] [address] P: [phone] F: [phone] [email or web address] Fred Rowell MD 08/01/2018 5:00 PM Signed [facility] [place], 08/01/2018: INTERVAL HISTORY: Mr. Whitney has no complaints when questioned about exertional shortness of breath, cough, wheezing. He claims consistent compliance with twice daily Symbicort, but rarely if ever needs albuterol inhaler. His spouse does seem to notice, He has slowed down a bit. When questioned further, Mr. Whitney does not disagree. No pleuritic chest pain, purulent sputum, hemoptysis. 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 ROS: Reviewed with patient, confirmed as documented by Briana Nuñez LPN. TO Allergies reviewed and updated, and medications reconciled today. Immunization History Administered Date(s) Administered Influenza Seasonal - High Dose - Age 65+ 06/25/2015 06/28/2016 03/31/2017 05/22/2018 Influenza Seasonal Inj Age 3+ 05/13/2014 Influenza Vaccine, Split-Non Spec 04/30/2009 04/22/2010 05/22/2012 05/21/2013 Pneumococcal-13 Vac Conjugate 06/25/2015 Pneumovax 04/17/2006 TD Adult 02/09/2012 PMH, FAMH, SOCH: Updated with patient today. PHYSICAL EXAMINATION: BP 122/80 Pulse 77 Resp 18 Wt 216 lb (98.0kg) SpO2 93% Gen: No acute distress. Cooperative with examination. ENT: Sclerae clear. Nares clear. Oral hygeine/dentition good. Pharynx clear. No halitosis. Resp: No stridor, accessory respiratory muscle use, supra- sternal or intercostal retractions. No crackles, wheezes, rubs. CV: Regular rythm. Heart tones normal. Radial pulses normal. Abd: Not distended. MSK: No kyphoscoliosis. Ext: Warm and well perfused. No clubbing, cyanosis, edema. Skin: Tanned. Texture normal. No rash. Neuro: Mental status normal. Affect normal. Muscle strength symmetrical. No tremor. DATA REVIEW: CT Chest report 06/26/2018 - I have personally and independently reviewed serial CT chest images and I appreciate no interval 06/2018, 07/2017, 07/06/2016. TO Spirometry today and 08/14/2014. IMPRESSION AND RECOMMENDATIONS: RLL Lung mass likely represents rounded atelectasis. Current CT chest without change compared to 07/2017, and has not changed since 2016. - I do not believe there is reason to repeat scanning with this stability. COPD/chronic bronchitis. Current PFT normal and without decline compared to 08/14/2014. - Increasing shortness of breath with exertion may be related to advancing age and deconditioning; although, discuss with Dr. Ryder, especially if associated with exertional chest discomfort. - Continue Symbicort twice daily. - Continue Albuterol HFA inhaler, 2 inhalations 10?15 minutes prior to activities associated with shortness of breath, and as needed for rescue relief of shortness of breath or wheezing, up to 4 times daily. Fred Rowell MD, [facility] [place] [facility] [address] [place] [address] P: [phone] F: [phone] [email or web address] Referring Provider: CLARICE RYDER [[id number]] Allergies As of Date: 08/01/2018 Noted Allergy Reaction baycolOther] [Other] 09/08/2006 14 - Other: See Comments Comments: Rhabdomyolysis. DEMEROL (MEPERIDINE (PF)) 11/18/2016 1 - Mental Status Change LOPID (GEMFIBROZIL) 07/14/2006 14 - Other: See Comments Comments: Myalgia. Date Reviewed: 08/01/2018 Reviewed by: Fred Rowell - Fully Assessed Reason for Visit: Recheck [92] Cmt: lung mass Reason For Visit History Recorded Primary Visit Diagnosis:COPD with chronic bronchitis (HCC) [J44.9] Other Visit Diagnosis:Lung mass [R91.8] Order(s):SPIROMETRY BASELINE ONLY [[id number]] Order #: [id number] FUTURE Prescriptions as of 08/01/2018 Sig: ACIDOPHILUS ORAL Take by mouth. ALBUTEROL SULFATE HFA 90 MCG/* Inhale 1-2 Puffs as instructe* PANTOPRAZOLE 40 MG TABLET,DEL* Take 1 tablet by mouth daily * CLOPIDOGREL 75 MG TABLET Take 1 tablet by mouth once d* GABAPENTIN 100 MG CAPSULE Take 1 capsule by mouth three* FENOFIBRATE 160 MG TABLET Take 1 tablet by mouth once d* RAMIPRIL 10 MG CAPSULE Take 1 capsule by mouth once * TAMSULOSIN 0.4 MG CAPSULE TAKE ONE CAPSULE BY MOUTH ONC* HYDROCORTISONE 2.5 % TOPICAL * Apply to affected area 3-4 ti* BUDESONIDE-FORMOTEROL HFA 80 * Inhale 2 Puffs as instructed * MECLIZINE 25 MG TABLET Take 1 tablet by mouth every * CLOTRIMAZOLE-BETAMETHASONE 1 * Apply 1 application to affect* HYDROCODONE 10 MG-CHLORPHENIR* Take 5 mL by mouth twice leyla* [id number] * Use 4 Drops in the ears four * IPRATROPIUM BROMIDE 0.02 % SO* Use via nebulizer. 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] INVALID FOR* Diverticulosis [K57.90] INVALID FOR* Right renal mass [N28.89] INVALID FOR* Renal cyst [N28.1] INVALID FOR* Benign non-nodular prostatic hyperplasia with l*INVALID FOR* Abdominal aortic aneurysm without rupture (HCC)*INVALID FOR* Lung mass [R91.8] INVALID FOR* Notes for Staff Discussed this visit Other instructions from your clinician: Current CT chest without change compared to 07/2017, and has not changed since 2016. - I do not think there is reason to repeat scanning with this stability. Increasing shortness of breath with exertion may be related to - 2014 Pulmonary Function Testing was normal, current shows no decline. - It is possible that you tore more easily because you are 4 years older. - If increasing shortness of breath continue to trouble you, especially if you develop chest discomfort with that exertional shortness of breath, you and Dr. Ryder may want to investigate the heart. Continue Symbicort twice daily. Continue Albuterol HFA inhaler, 2 inhalations 10?15 minutes prior to activities associated with shortness of breath, and as needed for rescue relief of shortness of breath or wheezing, up to 4 times daily. Fred Rowell MD, [facility] [place] [facility] [address] [place] [address] P: [phone] F: [phone] [email or web address] Visit Notes: >> Briana Daly Aug 01, 2018 1:31 PM Status: Addendum ROS: General: Generally feels well. Appetite good. Eyes, Ears, nose, throat: denies post nasal drip. denies rhinorrhea. denies purulent nasal discharge. denies epistaxis. denies hoarseness. Vision stable. Cardiac: denies angina, denies edema, denies orthopnea. GI: Recent GI illness with nausea and emesis evaluated at [facility], since resolved. 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 Menses: n/a Musculoskeletal: notes neuropathy pain. Neuro: denies headache, denies focal weakness. denies tremor. Skin: denies rash. Otherwise negative. Medications Discontinued During This Encounter CHOLECALCIFEROL (VITAMIN D3) 1,000 U* 0 0 01/28/2010 08/01/2018 Class: OTC Route: ORAL Sig: take 6 tablets daily Disc: Course of therapy completed albuterol 2.5 mg /3 mL (0.083 %) neb* 24 mL 2 11/26/2013 08/01/2018 Route: NEBULIZATION -UNSPEC Sig: Use 3 mL via nebulizer three times daily as needed. OVER 5-15 MINUTES. FOR WHEEZING AND SHORTNESS OF BREATH. Disc: Course of therapy completed Follow Up: Discussed this visit Disposition: Return if symptoms worsen or fail to improve. Follow-up and Disposition History Recorded Encounter Status:Closed by FRED ROWELL MD on 08/01/18 BO Observed: 07/04/2018 Status: COMPLETED Source: [place] 1:20 PM [facility] REPOSITORY Office Visit (FAMPWS) PACO WHITNEY ([id number]) 1935 M Date Time Provider Department 07/04/18 1:20 PM CLARICE RYDER During your visit today, we recorded the following information about you: Temperature Pulse Respiration Blood pressure 98.2 degrees 82/minute 12/minute 110/68 Weight 96.6 kg Clarice Ryder MD 07/05/2018 9:31 PM Signed Chief Complaint Patient presents with: Transition Of Care HPI Paco Whitney is a 83 year old male who presents here today for [facility]. Pt here today for hospital follow up, he was admitted to [facility] on 06/28/18 for acute gastroenteritis. He was in [place] visiting family prior to getting sick and believes he caught something from traveling. Pt states he was very sick with vomiting and diarrhea and very weak. He was given Imodium and acidophilus. He is not taking imodium at this time. Pt was tested for c diff and this was negative, he also had a CT of abdomen and pelvis; he would like to discuss results of this with pcp. Pt states he is now able to eat and has been doing good, he has no diarrhea or abdominal pain at this time. He is now having regular bowel movements. AAA: pt would like to discuss aneurysm with pcp, states he would much rather stay within the clinic and see a vascular surgeon if necessary. Pt has been having CT every six months to monitor this. Past medical history, appointments, medications, allergies reviewed. 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 Romeo - REMOVAL GALLBLADDER 2006 Cholecystectomy - REMOVAL OF TONSILS,<12 Y/O Tonsillectomy - REPAIR,DETACH RETINA,PHOTOCOAG 2003 Laser repair retinal detach, right eye - TOTAL KNEE REPLACEMENT 2002 Knee replacement, total, left - VASECTOMY 1964 Family History FAMILY HISTORY Problem Relation Age of Onset - Hypertension Mother - other (Parkinsons disease) Mother - Heart Father - Heart Brother Heart surgery - Cancer Brother of liver. - Diabetes Brother Patient Allergies ALLERGIES Allergen Reactions - Baycolother] [Other] Other: See Comments Rhabdomyolysis. - Demerol [Meperidine* Mental Status Change - Lopid [Gemfibrozil] Other: See Comments Myalgia. Current Medications Current Outpatient Prescriptions on File Prior to Visit: albuterol 2.5 mg /3 mL (0.083 %) nebulizer solution Use 3 mL via nebulizer three times daily as needed. OVER 5-15 MINUTES. FOR WHEEZING AND SHORTNESS OF BREATH. albuterol HFA (PROVENTIL HFA, VENTOLIN HFA) 90 mcg/actuation inhaler Inhale 1-2 Puffs as instructed four times daily as needed. FOR WHEEZING AND SHORTNESS OF BREATH. budesonide-formoterol (SYMBICORT) 80-4.5 mcg/actuation inhaler Inhale 2 Puffs as instructed twice daily. Rinse mouth after use. Chlorpheniramine-HYDROcodone (TUSSIONEX PENNKINETIC ER) 10- 8 mg/5 mL suspension Take 5 mL by mouth twice daily. CHOLECALCIFEROL (VITAMIN D3) 1,000 UNIT CAP take 6 tablets daily clopidogrel (PLAVIX) 75 mg tablet Take 1 tablet by mouth once daily. clotrimazole-betamethasone (LOTRISONE) cream Apply 1 application to affected area twice daily. Fenofibrate (LOFIBRA) 160 mg tablet Take 1 tablet by mouth once daily. gabapentin (NEURONTIN) 100 mg capsule Take 1 capsule by mouth three times daily for 180 days. hydrocortisone (ANUSOL-HC) 2.5 % rectal cream Apply to affected area 3-4 times daily as needed ipratropium 0.02 % nebulizer solution Use via nebulizer. 1 nebule 3 times a day as needed. meclizine (ANTIVERT) 25 mg tab Take 1 tablet by mouth every 6 hours as needed. FOR DIZZINESS lwqjzwtd-dagrvpqtl-xagykbikwiqdlc (CORTISPORIN) 3.5-10,000-1 mg/mL-unit/mL-% otic suspension Use 4 Drops in the ears four times daily. x [address] (PROTONIX) 40 mg tablet Take 1 tablet by mouth daily before breakfast. Take on empty stomach, 1/2 hr before meal. ramipril (ALTACE) 10 mg capsule Take 1 capsule by mouth once daily. tamsulosin ER (FLOMAX) 0.4 mg cp24 TAKE ONE CAPSULE BY MOUTH ONCE DAILY AT BEDTIME No current facility-administered medications on file prior to visit. 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 General Appearance: Well appearing, alert, in no acute distress, well-hydrated, well nourished.. Lungs: lungs clear to auscultation. No wheezing, rhonchi, rales. Heart: RRR without murmur, gallop, or rubs. No ectopy. Health Maintenance List DTAP,TDAP,TD(1 - Tdap) due on 02/10/2012 DIABETES SCREEN due on 06/26/2021 ADULT PREVNAR-13 Completed INFLUENZA Completed PNEUMOVAX AGE 65 AND OVER WITH 5YR LOOKBACK Completed Data reviewed [facility] discharge papers CT showing AAA 4.4 cm, was measured at 4.7 cm in past CTs ASSESSMENT/PLAN: 1. Gastroenteritis - ICD9: 558.9, ICD10: K52.9 (primary diagnosis) Resolved 2. Abdominal 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) - ICD9: 441.4, ICD10: I71.4 Continue to monitor 3. Right renal mass - ICD9: 593.9, ICD10: N28.89 Followed by Urology 4. Pulmonary emphysema, unspecified emphysema type (HCC) - ICD9: 492.8, ICD10: J43.9 Follow with Pulm Follow up in 3 months I agree with the Chief Complaint, ROS, and Past Histories independently gathered by the clinical production support specialist and the remaining scribed note accurately describes my personal service to the patient. Clarice Ryder MD The documentation for this note was completed by Elisa Granger Ma acting as scribe for Clarice Ryder MD. July 04, 2018 1:11 PM. Patient's Date of discharge: 06/30/18 Date of initial coordinator contact after discharge: 07/03/18 ? Discharge diagnosis: Acute Gastroenteritis Medication review completed Yes ? ? Neelam Vela LPN ? Provider Documentation: ? In follow-up of hospitalization, Paco Whitney is a 83 year old male with the chief complaint of Gastroenteritis ? I have reviewed the patient?s last hospital course including diagnostic testing performed during this hospitalization, their discharge medications, and my assessment and plan with the patient and any family members present at today?s visit. ? Pt states feeling much better. TRANSITION CARE MANAGEMENT (TCM) INITIAL CONTACT Laboratory Secretary Outreach ? Provider Action/FYI: ? ? Initial contact with patient post discharge, spoke to patient. Patient identified by name and . ? TRANSITION CARE MANAGEMENT INITIAL OUTREACH DOCUMENTATION: Date of Outreach: 07/03/2018 Date of Discharge 06/30/2018 Some recent data might be hidden ? ? SUMMARY: -Pt discharged from [facility] on 06/30/18. -Admitted for: Right sided abdominal pain and vomiting ? Do you have a hospital follow up appointment with your PCP? Appointment on 07/04/[address] Ryder. ? ? MEDICATIONS: Many patients have questions or concerns about their medications once they are home. Were you prescribed any new medications? Yes , Acidophilus and Imodium. Not taking the Imodium ? Were you told to hold any medications? No Were any of your medications discontinued? No ? Do you have any questions about getting or taking your medications? No ? Your discharge instructions/After visit Summary (AVS) are important in guiding you through the recovery process. Is there anything I might help you understand? No ? Do you have all the necessary equipment and supplies at home? Yes ? Medical records from recent hospitalization: Placed for provider to review ? Referring Provider: CLARICE RYDER [[id number]] Allergies As of Date: 07/04/2018 Noted Allergy Reaction baycolOther] [Other] 09/08/2006 14 - Other: See Comments Comments: Rhabdomyolysis. DEMEROL (MEPERIDINE (PF)) 11/18/2016 1 - Mental Status Change LOPID (GEMFIBROZIL) 07/14/2006 14 - Other: See Comments Comments: Myalgia. Date Reviewed: 07/04/2018 Reviewed by: Elisa Granger Ma - Fully Assessed Reason for Visit: Transition Of Care [4074] Primary Visit Diagnosis:Gastroenteritis [K52.9] Other Visit Diagnoses:Abdominal 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) [I71.4] Right renal mass [N28.89] Pulmonary emphysema, unspecified emphysema type (HCC) [J43.9] Prescriptions as of 07/04/2018 Sig: ALBUTEROL SULFATE 2.5 MG/3 ML* Use 3 mL via nebulizer three * ALBUTEROL SULFATE HFA 90 MCG/* Inhale 1-2 Puffs as instructe* BUDESONIDE-FORMOTEROL HFA 80 * Inhale 2 Puffs as instructed * HYDROCODONE 10 MG-CHLORPHENIR* Take 5 mL by mouth twice leyla* * CHOLECALCIFEROL (VITAMIN D3) * take 6 tablets daily CLOPIDOGREL 75 MG TABLET Take 1 tablet by mouth once d* CLOTRIMAZOLE-BETAMETHASONE 1 * Apply 1 application to affect* FENOFIBRATE 160 MG TABLET Take 1 tablet by mouth once d* GABAPENTIN 100 MG CAPSULE Take 1 capsule by mouth three* HYDROCORTISONE 2.5 % TOPICAL * Apply to affected area 3-4 ti* IPRATROPIUM BROMIDE 0.02 % SO* Use via nebulizer. 1 nebule * ACIDOPHILUS ORAL Take by mouth. 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] INVALID FOR* Diverticulosis [K57.90] INVALID FOR* Right renal mass [N28.89] INVALID FOR* Renal cyst [N28.1] INVALID FOR* Benign non-nodular prostatic hyperplasia with l*INVALID FOR* Abdominal aortic aneurysm without rupture (HCC)*INVALID FOR* Lung mass [R91.8] INVALID FOR* Encounter Status:Closed by CLARICE RYDER MD on 07/05/18 PROGRESS Observed: 07/04/2018 Status: COMPLETED Source: [place] 1:10 PM [facility] REPOS[facility]ORY HNO ID: [id number] Author: Clarice Ryder Service: (none) Author Type: Physician Type: Progress Notes Filed: 07/05/2018 9:31 PM Note Text: Chief Complaint Patient presents with: Transition Of Care HPI Paco Whitney is a 83 year old male who presents here today for [facility] hospital. Pt here today for hospital follow up, he was admitted to [facility] on 06/28/18 for acute gastroenteritis. He was in [place] visiting family prior to getting sick and believes he caught something from traveling. Pt states he was very sick with vomiting and diarrhea and very weak. He was given Imodium and acidophilus. He is not taking imodium at this time. Pt was tested for c diff and this was negative, he also had a CT of abdomen and pelvis; he would like to discuss results of this with pcp. Pt states he is now able to eat and has been doing good, he has no diarrhea or abdominal pain at this time. He is now having regular bowel movements. AAA: pt would like to discuss aneurysm with pcp, states he would much rather stay within the clinic and see a vascular surgeon if necessary. Pt has been having CT every six months to monitor this. Past medical history, appointments, medications, allergies reviewed. Previous Medical History PAST MEDICAL HISTORY Diagnosis Date - Chronic airway obstruction, not elsewhere classified - Diaphragmatic hernia without mention of obstruction or gangrene - Diverticulitis 12/16/2014 - Diverticulosis of colon with hemorrhage - Essential hypertension, benign - History of eye surgery 03/29/2011 Right eye - Other and unspecified hyperlipidemia - Rectal bleeding 12/16/2014 - Retinal detachment with retinal defect, unspecified RIGHT EYE, WITH LENSE - Rhabdomyolysis 2003 had as a result of Baycol - Unspecified asthma(493.90) - Unspecified cause of encephalitis, myelitis, 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 Romeo - REMOVAL GALLBLADDER 2006 Cholecystectomy - REMOVAL OF TONSILS,<12 Y/O Tonsillectomy - REPAIR,DETACH RETINA,PHOTOCOAG 2003 Laser repair retinal detach, right eye - TOTAL KNEE REPLACEMENT 2003 Knee replacement, total, left - VASECTOMY 1964 Family History FAMILY HISTORY Problem Relation Age of Onset - Hypertension Mother - other (Parkinsons disease) Mother - Heart Father - Heart Brother Heart surgery - Cancer Brother of liver. - Diabetes Brother Patient Allergies ALLERGIES Allergen Reactions - Baycolother] [Other] Other: See Comments Rhabdomyolysis. - Demerol [Meperidine* Mental Status Change - Lopid [Gemfibrozil] Other: See Comments Myalgia. Current Medications Current Outpatient Prescriptions on File Prior to Visit: albuterol 2.5 mg /3 mL (0.083 %) nebulizer solution Use 3 mL via nebulizer three times daily as needed. OVER 5-15 MINUTES. FOR WHEEZING AND SHORTNESS OF BREATH. albuterol HFA (PROVENTIL HFA, VENTOLIN HFA) 90 mcg/actuation inhaler Inhale 1-2 Puffs as instructed four times daily as needed. FOR WHEEZING AND SHORTNESS OF BREATH. budesonide-formoterol (SYMBICORT) 80-4.5 mcg/actuation inhaler Inhale 2 Puffs as instructed twice daily. Rinse mouth after use. Chlorpheniramine-HYDROcodone (TUSSIONEX PENNKINETIC ER) 10- 8 mg/5 mL suspension Take 5 mL by mouth twice daily. CHOLECALCIFEROL (VITAMIN D3) 1,000 UNIT CAP take 6 tablets daily clopidogrel (PLAVIX) 75 mg tablet Take 1 tablet by mouth once daily. clotrimazole-betamethasone (LOTRISONE) cream Apply 1 application to affected area twice daily. Fenofibrate (LOFIBRA) 160 mg tablet Take 1 tablet by mouth once daily. gabapentin (NEURONTIN) 100 mg capsule Take 1 capsule by mouth three times daily for 180 days. hydrocortisone (ANUSOL-HC) 2.5 % rectal cream Apply to affected area 3-4 times daily as needed ipratropium 0.02 % nebulizer solution Use via nebulizer. 1 nebule 3 times a day as needed. meclizine (ANTIVERT) 25 mg tab Take 1 tablet by mouth every 6 hours as needed. FOR DIZZINESS ypdpuyed-vdntwunar-fvkxvshavmywzz (CORTISPORIN) 3.5-10,000-1 mg/mL-unit/mL-% otic suspension Use 4 Drops in the ears four times daily. x [address] (PROTONIX) 40 mg tablet Take 1 tablet by mouth daily before breakfast. Take on empty stomach, 1/2 hr before meal. ramipril (ALTACE) 10 mg capsule Take 1 capsule by mouth once daily. tamsulosin ER (FLOMAX) 0.4 mg cp24 TAKE ONE CAPSULE BY MOUTH ONCE DAILY AT BEDTIME No current facility-administered medications on file prior to visit. 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 General Appearance: Well appearing, alert, in no acute distress, well-hydrated, well nourished.. Lungs: lungs clear to auscultation. No wheezing, rhonchi, rales. Heart: RRR without murmur, gallop, or rubs. No ectopy. Health Maintenance List DTAP,TDAP,TD(1 - Tdap) due on 02/10/2012 DIABETES SCREEN due on 06/26/2021 ADULT PREVNAR-13 Completed INFLUENZA Completed PNEUMOVAX AGE 65 AND OVER WITH 5YR LOOKBACK Completed Data reviewed [facility] discharge papers CT showing AAA 4.4 cm, was measured at 4.7 cm in past CTs ASSESSMENT/PLAN: 1. Gastroenteritis - ICD9: 558.9, ICD10: K52.9 (primary diagnosis) Resolved 2. Abdominal 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) - ICD9: 441.4, ICD10: I71.4 Continue to monitor 3. Right renal mass - ICD9: 593.9, ICD10: N28.89 Followed by Urology 4. Pulmonary emphysema, unspecified emphysema type (HCC) - ICD9: 492.8, ICD10: J43.9 Follow with Pulm Follow up in 3 months I agree with the Chief Complaint, ROS, and Past Histories independently gathered by the clinical production support specialist and the remaining scribed note accurately describes my personal service to the patient. Clarice Ryder MD The documentation for this note was completed by Elisa Granger Ma acting as scribe for Clarice Ryder MD. July 04, 2018 1:11 PM. Patient's Date of discharge: 06/30/18 Date of initial coordinator contact after discharge: 07/03/18 ? Discharge diagnosis: Acute Gastroenteritis Medication review completed Yes ? ? Neelam Vela LPN ? Provider Documentation: ? In follow-up of hospitalization, Paco Whitney is a 83 year old male with the chief complaint of Gastroenteritis ? I have reviewed the patient?s last hospital course including diagnostic testing performed during this hospitalization, their discharge medications, and my assessment and plan with the patient and any family members present at today?s visit. ? Pt states feeling much better. TRANSITION CARE MANAGEMENT (TCM) INITIAL CONTACT Laboratory Secretary Outreach ? Provider Action/FYI: ? ? Initial contact with patient post discharge, spoke to patient. Patient identified by name and . ? TRANSITION CARE MANAGEMENT INITIAL OUTREACH DOCUMENTATION: Date of Outreach: 07/03/2018 Date of Discharge 06/30/2018 Some recent data might be hidden ? ? SUMMARY: -Pt discharged from [facility] on 06/30/18. -Admitted for: Right sided abdominal pain and vomiting ? Do you have a hospital follow up appointment with your PCP? Appointment on 07/04/[address] Ryder. ? ? MEDICATIONS: Many patients have questions or concerns about their medications once they are home. Were you prescribed any new medications? Yes , Acidophilus and Imodium. Not taking the Imodium ? Were you told to hold any medications? No Were any of your medications discontinued? No ? Do you have any questions about getting or taking your medications? No ? Your discharge instructions/After visit Summary (AVS) are important in guiding you through the recovery process. Is there anything I might help you understand? No ? Do you have all the necessary equipment and supplies at home? Yes ? Medical records from recent hospitalization: Placed for provider to review ? CNPTOUTREACH Observed: 07/03/2018 Status: COMPLETED Source: [place] 12:00 AM [facility] REPOSIT[facility] Patient Outreach (FAMPWS) PACO WHITNEY ([id number]) 1935 M Date Time Provider Department 07/03/18 CLARICE RYDER During your visit today, we recorded the following information about you: Neelam Vela LPN 08/03/2018 3:00 AM Signed Transitional Care Management Progress Note The patients TCM visit was performed within the 7 days of discharge. TCM Eligibility Documentation The following information was gathered during the initial Patient Outreach Encounter. Date of Outreach: 07/03/2018 Date of Discharge 06/30/2018 Some recent data might be hidden If no data exists please enter it manually. If data exists please delete date of discharge and date of initial contact seen below. Patient's Date of discharge: 06/30/18 Date of initial coordinator contact after discharge: 07/03/18 Discharge diagnosis: Acute Gastroenteritis Medication review completed Yes Neelam Vela LPN Provider Documentation: In follow-up of hospitalization, Paco Whitney is a 83 year old male with the chief complaint of Gastroenteritis I have reviewed the patient?s last hospital course including diagnostic testing performed during this hospitalization, their discharge medications, and my assessment and plan with the patient and any family members present at today?s visit. Pt states feeling much better. TRANSITION CARE MANAGEMENT (TCM) INITIAL CONTACT Laboratory Secretary Outreach Provider Action/FYI: Initial contact with patient post discharge, spoke to patient. Patient identified by name and . TRANSITION CARE MANAGEMENT INITIAL OUTREACH DOCUMENTATION: Date of Outreach: 07/03/2018 Date of Discharge 06/30/2018 Some recent data might be hidden SUMMARY: -Pt discharged from [facility] on 06/30/18. -Admitted for: Right sided abdominal pain and vomiting Do you have a hospital follow up appointment with your PCP? Appointment on 07/04/[address] Ryder. MEDICATIONS: Many patients have questions or concerns about their medications once they are home. Were you prescribed any new medications? Yes , Acidophilus and Imodium. Not taking the Imodium Were you told to hold any medications? No Were any of your medications discontinued? No Do you have any questions about getting or taking your medications? No Your discharge instructions/After visit Summary (AVS) are important in guiding you through the recovery process. Is there anything I might help you understand? No Do you have all the necessary equipment and supplies at home? Yes Medical records from recent hospitalization: Placed for provider to review Allergies As of Date: 07/03/2018 Noted Allergy Reaction baycolOther] [Other] 09/08/2006 14 - Other: See Comments Comments: Rhabdomyolysis. DEMEROL (MEPERIDINE (PF)) 11/18/2016 1 - Mental Status Change LOPID (GEMFIBROZIL) 07/14/2006 14 - Other: See Comments Comments: Myalgia. Date Reviewed: 06/23/2018 Reviewed by: Suzie Jones Ct - Fully Assessed Reason for Visit: Transition Of Care [4074] Prescriptions as of 07/03/2018 Sig: ALBUTEROL SULFATE HFA 90 MCG/* Inhale 1-2 Puffs as instructe* PANTOPRAZOLE 40 MG TABLET,DEL* Take 1 tablet by mouth daily * CLOPIDOGREL 75 MG TABLET Take 1 tablet by mouth once d* GABAPENTIN 100 MG CAPSULE Take 1 capsule by mouth three* FENOFIBRATE 160 MG TABLET Take 1 tablet by mouth once d* RAMIPRIL 10 MG CAPSULE Take 1 capsule by mouth once * TAMSULOSIN 0.4 MG CAPSULE TAKE ONE CAPSULE BY MOUTH ONC* HYDROCORTISONE 2.5 % TOPICAL * Apply to affected area 3-4 ti* BUDESONIDE-FORMOTEROL HFA 80 * Inhale 2 Puffs as instructed * MECLIZINE 25 MG TABLET Take 1 tablet by mouth every * CLOTRIMAZOLE-BETAMETHASONE 1 * Apply 1 application to affect* HYDROCODONE 10 MG-CHLORPHENIR* Take 5 mL by mouth twice leyla* [id number] * Use 4 Drops in the ears four * IPRATROPIUM BROMIDE 0.02 % SO* Use via nebulizer. 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] INVALID FOR* Diverticulosis [K57.90] INVALID FOR* Right renal mass [N28.89] INVALID FOR* Renal cyst [N28.1] INVALID FOR* Benign non-nodular prostatic hyperplasia with l*INVALID FOR* Abdominal aortic aneurysm without rupture (HCC)*INVALID FOR* Lung mass [R91.8] INVALID FOR* Encounter Status:Closed by EPIC, PRODUSER on 08/03/18 DISCHARGE SUMMARY Observed: 06/30/2018 Status: F Source: [place] 1:07 PM [facility] [place] [facility] Medical Records Department [address] [place] [address] Discharge Summary 06/30/18 0832 MR#: [id number] Acct: [id number] Name: PACO WHITNEY Rep #: [id number] : 1935 83 From: Rae Sandoval MD PCP: Chidi FOWLER,Clarice Status: DIS IN Y Location: [place] [address] Discharge Date and Diagnosis Date of Admission: 06/28/18 Date of Discharge: 06/30/18 - Primary Discharge Diagnosis Acute gastroenteritis, likely viral, bacterial etiology ruled out Right renal mass Infrarenal abdominal aortic aneurysm, 4.4cm - Secondary Discharge Diagnosis Chronic Problems Peripheral neuropathy (Chronic) GERD (gastroesophageal reflux disease) (Chronic) BPH (benign prostatic hyperplasia) (Chronic) HTN (hypertension), benign (Chronic) Chronic obstructive lung disease (Chronic) Dyslipidemia (Chronic) Hx-TIA (transient ischemic attack) (Chronic) History of gastrointestinal bleeding (Chronic) Hospital Course and Treatment Imaging Results: Clinical Impression(s) from Imaging Studies Abdomen/Pelvis CT 06/28/18 12:47 IMPRESSION: Stable right lower lobe pulmonary nodule. 1.4 cm x 2.6 cm inhomogenous enhancing solid mass arising from the inferior lateral aspect of the right kidney. A neoplastic process should be ruled out. Infrarenal abdominal aortic aneurysm with mural thrombus. Irregular enlargement of the prostate. Electronically Signed: Clayton Stevens MD at 13:43 EST Tel [phone], Service support , Acute Abdomen Series 06/29/18 05:55 IMPRESSION: 1. Mild generalized ileus without distention. No free gas. 2. Atherosclerotic vascular calcifications noted, but the aortic and common iliac artery aneurysms evident on CT are not clearly depicted here. 3. Stable soft tissue nodule in the medial right lung base as well as chronic appearing peripheral basilar interstitial densities. 4. Left lateral wedging of the L3 vertebra, mid lumbar dextroscoliosis, as well as degenerative changes of the spine and hips are stable. Electronically Signed: Ricky Baxter MD at 17:47 EST , Service support , Operations: None Summary of Care Provided: 83-year-old male with past medical history of hypertension, history of TIA, hyperlipidemia, peripheral neuropathy who comes in with complaints of right sided abdominal pain, nausea, vomiting and diarrhea. His admitting blood work was unremarkable as well as urinalysis. CT scan of the abdomen showed right lung nodule, right kidney mass, dilated abdominal aortic aneurysm, infrarenal. He was managed conservatively initially with NG tube, kept n.p.o., advance to clears with improvement in his nausea. Patient had multiple episodes of diarrhea. Stool studies were negative for C. difficile and for any bacterial etiology. On the day of discharge he had 3-4 bowel movements, was given Imodium as needed. Patient knows about the lung nodule in the renal mass. He will follow-up with his outpatient urology and pulmonology appointments. He will also follow- up with Dr. Reid for the aortic aneurysm. Subjective: On the day of exam, patient felt better, had 3-4 bowel movements that day. Denied abdominal pain. Denied nausea or vomiting. Able to tolerate his diet. Patient was walked around, the lowest SPO2 was 90%, did not qualify for home oxygen. He had had breathing treatments during the hospital stay. Objective: Physical exam: General: Alert, Oriented x3, Cooperative, No apparent distress, obese HEENT: Atraumatic, PERRLA, EOMI, Normocephalic Neck: Supple, No JVD, Negative Carotid Bruits Lungs: Clear to auscultation, Normal air movement Cardiovascular: Regular rate, Regular Rhythm, Normal S1, Normal S2, No murmurs Abdomen: Bowel Sounds Present, Soft, Non Tender, Non-Distended, No Hepato-splenomegaly Extremities: No edema Skin: No rashes, No breakdown Musculoskeletal: No Tenderness to Palpation of Joints or Extremities Lymphatic: No Cervical, Supraclavicular, or Inguinal Adenopathy Neurological: Cranial nerves II-XII grossly intact, Neuro grossly intact Psych/Mental Status: Normal Affect, Appropriate - Physical Exam Vital Signs Temp Pulse Resp BP Pulse Ox 97.4 F L 61 18 111/60 93 06/30/18 07:58 06/30/18 07:58 06/30/18 07:58 06/30/18 07:58 06/30/18 07:58 Oxygen Flow Rate (L/min) 2 Oxygen Delivery Method Room Air Weight: 96.162 kg Body Mass Index (BMI) 31.3 Intake and Output for Last 24 Hours Intake Total 3355 / 3355 1606 / 1606 Output Total 800 / 800 Balance 2555 / 2555 1606 / 1606 Microbiology Past 72 Hours 06/28/18 19:10 Enteric Bacteriology - Final Stool 06/28/18 19:10 C. difficile DNA Amplification - Final Stool 06/28/18 19:10 Stool Lactoferrin - Final Stool Laboratory Tests Past 24 Hrs WBC 7.0 RBC 4.57 L Hgb 14.1 Hct 43.9 MCV 96.1 H MCH 30.9 MCHC 32.1 Discharge Diet: Low fat/ Low Cholesterol, 2000 mg Sodium Diet Discharge Activity: Return to Normal Activity Home Medications: Medications to take at Discharge Albuterol Inhaler [Ventolin Hfa] 2 puff INHALATION Q4H PRN PRN 07/05/14 Clopidogrel Bisulfate [Plavix] 75 mg PO DAILY 07/05/14 Fenofibrate [Tricor] 160 mg PO DAILY 07/05/14 Ramipril [Altace] 10 mg PO DAILY 07/05/14 Pantoprazole Sodium [Protonix] 40 mg PO DAILY 08/21/14 Cholecalciferol (VIT D3) [Vitamin D3] 3,000 unit PO BID 11/23/14 Tamsulosin HCl [Flomax] 0.4 mg PO DAILY 11/23/14 Ipratropium [Atrovent Aerosols] 0.5 mg INHALATION Q8H PRN PRN 11/05/16 Budesonide/Formoterol 160/4.5 [Symbicort 160/4.5 Mcg Inhaler (SP)] 2 puff INHALATION BID 06/28/18 Gabapentin [Neurontin] 100 mg PO TID 06/28/18 Lactobacillus Acidophilus [Acidophilus] 1 tablet PO TID #30 tablet 06/30/18 Loperamide [Imodium] 2 mg PO Q2H PRN PRN #5 capsule 06/30/18 Following Prescrptions Were Given to Patient: Loperamide [Imodium] 2 mg PO Q2H PRN PRN #5 capsule PRN Reason: Diarrhea Lactobacillus Acidophilus [Acidophilus] 1 tablet PO TID #30 tablet Primary Care Physician: Clarice Ryder MD [Primary Care Provider] - Please follow up with your Primary Care Physician in: within 1-2 weeks Please Follow Up With: Dennis Reid MD When: within 2 weeks to follow-up on abnormal CT findings Disposition: Home Minutes spent on discharge:: 40 Patient Condition:: Stable Medical Necessity - Tobacco Use Smoking Status: Former smoker Tobacco Use: Cigarettes Meaningful Use Info Meaningful Use Diagnoses (Choose all that apply): None applicable Code Visit Inpatient E AND M: 64878 Disch Hosp 06/30/18 1307 <Electronically signed by Rae Sandoval MD> Date Rae Sandoval MD Cosigner Signature (if applicable): Date CC: Rae Sandoval MD; Clarice Ryder MD Signed 12 LEAD ELECTROCARDIOGRAM Observed: 06/30/2018 Status: F Source: JOSE 9:14 [facility] REPOSITORY [facility] Cardiovascular Services [address] [place] [address] 12 Lead EKG 06/28/18 1226 MR#: [id number] Acct: [id number] Name: PACO WHITNEY Rep #: [id number] : 1935 83 From: Agus Watts MD Attending Dr: Rae Sandoval MD Status: ADM IN Ordering Dr: Beverly Bernard MD Date: 06/28/18 Location: [facility] Sex: M C Admitted: 06/29/18 Test Reason : ABDOMINAL PAIN Blood Pressure : / mmHG Vent. Rate : 091 BPM Atrial Rate : 091 BPM P-R Int : 174 ms QRS Dur : 096 ms QT Int : 352 ms P-R-T Axes : 047 -64 048 degrees QTc Int : 432 ms Normal sinus rhythm Left anterior fascicular block Abnormal ECG Confirmed by AGUS WATTS MD ([id number]), acquisitions editor SISSY DAWSON ([id number]) on 06/30/2018 9:14:02 AM Referred By: SJ Confirmed By:AGUS WATTS MD 06/30/18913 Date Agus Watts MD CC: MD Linda Brownayyetyree; Rae Sandoval MD; Clarice Ryder MD Signed DISCHARGE INSTRUCTION Observed: 06/30/2018 Status: F Source: [place] 8:38 [facility] REPOSITORY [facility] Medical Records Department [address] [place] [address] Instructions for Home/Discharge Instructions 06/30/18 0824 MR#: [id number] Acct: [id number] Name: PACO WHITNEY Rep #: [id number] : 1935 83 From: Rae Sandoval MD PCP: Clarice Ryder MD Status: ADM IN ADDENDUM by Rae Sandoval MD on 06/30/18 at 0838 Follow-up with urology as scheduled for your right kidney mass and chronic lung nodule. 06/30/18 0838 Date Rae Sandoval MD cc: Clarice Ryder MD * Signed - Discharge Diagnoses Current Active Problems: Current Active and Chronic Problems Peripheral neuropathy (Chronic) GERD (gastroesophageal reflux disease) (Chronic) BPH (benign prostatic hyperplasia) (Chronic) Reason(s) for Visit for Discharge Instructions: Nausea, vomiting, diarrhea You will use the following diet at home:: Regular Your food should be the consistency of: Regular Your liquids should be the consistency of: Regular/Thin Discharge Activity: Return to Normal Activity Additional Instructions: Continue on all your medications. Follow-up with your primary doctor within 1-2 weeks. Allergies/Adverse Reactions: Allergies cerivastatin sodium [From Baycol] Allergy (Severe, Verified 06/28/18 12:08) Other KIDNEY FAILURE gemfibrozil [From Lopid] Adverse Reaction (Verified 06/28/18 12:08) Other meperidine [From Demerol] Adverse Reaction (Verified 06/28/18 12:08) Other Medications to take at Discharge Albuterol Inhaler [Ventolin Hfa] 2 puff INHALATION Q4H PRN PRN 07/05/14 Clopidogrel Bisulfate [Plavix] 75 mg PO DAILY 07/05/14 Fenofibrate [Tricor] 160 mg PO DAILY 07/05/14 Ramipril [Altace] 10 mg PO DAILY 07/05/14 Pantoprazole Sodium [Protonix] 40 mg PO DAILY 08/21/14 Cholecalciferol (VIT D3) [Vitamin D3] 3,000 unit PO BID 11/23/14 Tamsulosin HCl [Flomax] 0.4 mg PO DAILY 11/23/14 Ipratropium [Atrovent Aerosols] 0.5 mg INHALATION Q8H PRN PRN 11/05/16 Budesonide/Formoterol 160/4.5 [Symbicort 160/4.5 Mcg Inhaler (SP)] 2 puff INHALATION BID 06/28/18 Gabapentin [Neurontin] 100 mg PO TID 06/28/18 Lactobacillus Acidophilus [Acidophilus] 1 tablet PO TID #30 tablet 06/30/18 Loperamide [Imodium] 2 mg PO Q2H PRN PRN #5 capsule 06/30/18 The following prescriptions were given: Lactobacillus Acidophilus [Acidophilus] 1 tablet PO TID #30 tablet Primary Care Physician: Clarice Ryder MD [Primary Care Provider] - Please follow up with your Primary Care Physician in: within 1-2 weeks Test Results: Test results from this visit will be discussed in further detail at your follow-up appointment, if applicable. Please Follow Up With: Dennis Reid MD When: within 2 weeks to follow-up on abnormal CT findings Proposed Discharge Date: 06/30/18 06/30/18 0832 <Electronically signed by Rae Sandoval MD> Date Rae Sandoval MD CC: Clarice Ryder MD CBC W/DIFF, AUTOMATED Collected: 06/30/2018 Status: F Source: [place] 5:32 AM [facility] [place] TYPE CODE TESTS RESULT OUT OF RANGE REFERENCE UNITS LAB L100.1000 4.4-11.0 K/mm3 Normal WBC 7.0 LAB L100.1200 4.6-6.2 M/mm3 Low RBC 4.57 LAB L100.1300 13.0-16.5 g/dl Normal HGB 14.1 LAB L100.1400 40-54 % Normal HCT 43.9 LAB L100.1500 80-94 fL High MCV 96.1 LAB L100.1600 27.0-32.0 pg Normal MCH 30.9 LAB L100.1700 32-36 g/gl Normal MCHC 32.1 LAB L100.1810 11.6-14.6 % Normal RDW CV 14.1 LAB L100.1820 35.1-43.9 fl High RDW SD 50.1 LAB L100.1900 150-450 K/mm3 Normal PLT 156 LAB L100.2000 6.2-12.0 fl Normal MPV 9.5 LAB L100.2100 47-70 % Normal NEUT% 65.2 LAB L100.2200 19-41 % Normal LY% 19.8 LAB L100.2300 0-10 % High MONO% 13.8 LAB L100.2400 0-5 % Normal EO% 0.9 LAB L100.2500 0-1 % Normal BASO% 0.3 LAB L100.2550 0.0-0.9 % Normal IM GRAN % 0.000 Result Comment: IG% - Immature Granulocytes (promyelocytes, myelocytes and metamyelocytes) > 1% indicates that a LEFT SHIFT is Present. LAB L100.2620 2.0-7.7 X10 3/uL Normal Absolute Neut 4.6 LAB L100.2720 0.83-4.51 X10 3/ul Normal Absolute Lymph 1.39 Performed By: #### L100.0100 #### [facility] [address] [place], [place], [address] BASIC METABOLIC Collected: 06/30/2018 Status: F Source: [place] PROFILE ([facility]) 5:32 AM [facility] [place] TYPE CODE TESTS RESULT OUT OF RANGE REFERENCE UNITS LAB L501.0100 74-106 mg/dL Normal GLU 96 Result Comment: Please note revised GLUCOSE reference range effective 2017. LAB L501.1000 7-18 mg/dL High BUN 23 LAB L501.1100 0.70-1.30 mg/dL Normal CREAT,SERUM 1.06 Result Comment: The validity of the calculated GFR AND GFRAA in patients over 70 years has not been determined. Clinical correlation is essential. LAB L501.1110 >60 mL/min Normal EST GFR 71 Result Comment: Non- GFR Calc LAB L501.1115 >60 mL/min Normal EST GFR - AA 86 Result Comment: GFR Calc LAB L501.1255 ml/min Normal Estimated CRCL 54.66 LAB L501.1300 10-20 RATIO High BUN/CRE 21.7 LAB L501.2200 8.5-10 mg/dL Low .1 CA 8.1 LAB L501.5300 136-14 mmol/L Normal 5 NA 145 LAB L501.5600 3.5-5. mmol/L Normal 1 K 3.9 Result Comment: Slight Hemolysis, Result may be falsely increased. LAB L501.5900 98-107 mmol/L High CL 114 LAB L501.6100 21.0-32.0 mmol/L Normal CO2 23.0 LAB L501.6200 5-15 Normal 8 GAP Performed By: #### L500.2500 #### [facility] [address] [place], [address] CNPN Observed: 06/30/2018 Status: COMPLETED Source: [place]I 12:00 AM [facility] REPOSITORY Telephone (UROLWS) WHITNEYPACO ([id number]) 1935 M Date Time Provider Department 06/30/18 JIL HENRIQUEZ (OLI) UROLWS During your visit today, we recorded the following information about you: Warren Downing PSR 06/30/2018 11:10 AM Signed Patient called to ask if Dr. Henriquez still wanted the patient to get the Kidney CT that was cancelled for today. Patient had called Tuesday to cancel the appointment due to being admitted to [facility] ED. He states that the ED did a CT and the patient is looking into getting the images released to us. Please review images when they arrive from [facility] and evaluate if patient needs to have previously scheduled imaging redone. Please notify patient with results. Thanks Warren Downing PSR Briana Nuñez LPN 06/30/2018 11:16 AM Signed Patient is home from the hospital. He states he had a CT completed at [facility] that was chest to [facility]. He is asking if we are able to obtain images and if he should still be seen today? Please advise. OLI Arnold LPN 06/30/2018 12:13 PM Signed Very minimal change in size of right renal mass, this is not concerning, follow up as planned in November 2018 with new imaging Jil Henriquez, [facility], [place], PALudivinaC Sofie Sanchez Ma 06/30/2018 4:59 PM Signed Pt notified. Sofie Sanchez Ma Allergies As of Date: 06/30/2018 Noted Allergy Reaction baycolOther] [Other] 09/08/2006 14 - Other: See Comments Comments: Rhabdomyolysis. DEMEROL (MEPERIDINE (PF)) 11/18/2016 1 - Mental Status Change LOPID (GEMFIBROZIL) 07/14/2006 14 - Other: See Comments Comments: Myalgia. Date Reviewed: 06/23/2018 Reviewed by: Suzie Jones Ct - Fully Assessed Reason for Visit: Question [0387] Prescriptions as of 06/30/2018 Sig: ALBUTEROL SULFATE 2.5 MG/3 ML* Use 3 mL via nebulizer three * ALBUTEROL SULFATE HFA 90 MCG/* Inhale 1-2 Puffs as instructe* BUDESONIDE-FORMOTEROL HFA 80 * Inhale 2 Puffs as instructed * HYDROCODONE 10 MG-CHLORPHENIR* Take 5 mL by mouth twice leyla* * CHOLECALCIFEROL (VITAMIN D3) * take 6 tablets daily CLOPIDOGREL 75 MG TABLET Take 1 tablet by mouth once d* CLOTRIMAZOLE-BETAMETHASONE 1 * Apply 1 application to affect* FENOFIBRATE 160 MG TABLET Take 1 tablet by mouth once d* GABAPENTIN 100 MG CAPSULE Take 1 capsule by mouth three* HYDROCORTISONE 2.5 % TOPICAL * Apply to affected area 3-4 ti* IPRATROPIUM BROMIDE 0.02 % SO* Use via nebulizer. 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] INVALID FOR* Diverticulosis [K57.90] INVALID FOR* Right renal mass [N28.89] INVALID FOR* Renal cyst [N28.1] INVALID FOR* Benign non-nodular prostatic hyperplasia with l*INVALID FOR* Abdominal aortic aneurysm without rupture (HCC)*INVALID FOR* Lung mass [R91.8] INVALID FOR* Encounter Status:Closed by JIL HENRIQUEZ PA-C on 06/30/18 BASIC METABOLIC Collected: 06/29/2018 Status: F Source: [place] PROFILE ([facility]) 5:45 AM [facility] [place] TYPE CODE TESTS RESULT OUT OF RANGE REFERENCE UNITS LAB L501.0100 74-106 mg/dL Normal GLU 92 Result Comment: Please note revised GLUCOSE reference range effective 2017. LAB L501.1000 7-18 mg/dL High BUN 29 LAB L501.1100 0.70-1.30 mg/dL Normal CREAT,SERUM 1.25 Result Comment: The validity of the calculated GFR AND GFRAA in patients over 70 years has not been determined. Clinical correlation is essential. LAB L501.1110 >60 mL/min Low EST GFR 59 Result Comment: Non- GFR Calc LAB L501.1115 >60 mL/min Normal EST GFR - AA 71 Result Comment: GFR Calc LAB L501.1255 ml/min Normal Estimated CRCL 46.35 LAB L501.1300 10-20 RATIO High BUN/CRE 23.2 LAB L501.2200 8.5-10 mg/dL Low .1 CA 8.3 LAB L501.5300 136-14 mmol/L Normal 5 NA 144 LAB L501.5600 3.5-5. mmol/L Normal 1 K 4.1 LAB L501.5900 98-107 mmol/L High CL 112 LAB L501.6100 21.0-3 mmol/L Normal 2.0 CO2 24.0 LAB L501.6200 5-15 Normal GAP 8 Performed By: #### L500.2500 #### [facility] [address] [facility] [place], [address] ACUTE ABDOMEN INC Observed: 06/29/2018 Status: F Source: JO[place] CHEST 12:00 AM [facility] [place] [facility] Imaging Services [address] [place] [address] Acute Abdomen Inc Chest MR#: [id number] Acct: [id number] Name: PACO WHITNEY Rep #: [id number] : 1935 M 83 From: Jose Ramon Baxter MD PCP: Clarice Ryder MD Status: ADM IN Study: Acute Abdomen Inc Chest Date of Exam: 06/29/18 Exam# [id number] Ordering Dr: Melanie Daigle DO STUDY: X-RAY - ACUTE ABDOMINAL SERIES REASON FOR EXAM: Male, 83 years old. Abdominal distention and pain. TECHNIQUE: Single view of the chest. Supine, and erect view(s) of the abdomen were obtained. COMPARISON: CT abdomen and pelvis June 28, 2018 FINDINGS: 3 cm soft tissue nodule in the medial right lung base is unchanged. There are mild chronic appearing peripheral most distal densities in the lung bases as well. No new infiltrate Normal size heart. Normal mediastinum and antwan. Normal visualized pulmonary arteries. There is stable atherosclerotic calcification of the aortic arch with tortuosity of the mid to distal descending aorta. There is gas in nondistended segments of small bowel and colon. Occasional fluid levels are present on upright exam, which suggests a mild generalized ileus. No demonstrated free gas. There are atherosclerotic vascular calcifications, but the aortic and common iliac artery aneurysms seen by CT are not clearly depicted here. There are also calcified phleboliths in the pelvic soft tissues. There are diffuse degenerative changes of the visualized spine. Left lateral wedging of the L3 vertebra and 23 degree scoliosis of the spine centered at L3 are unchanged. There is moderate degenerative narrowing of the bilateral hip joint spaces. RAD/Acute Abdomen Inc Chest IMPRESSION: 1. Mild generalized ileus without distention. No free gas. 2. Atherosclerotic vascular calcifications noted, but the aortic and common iliac artery aneurysms evident on CT are not clearly depicted here. 3. Stable soft tissue nodule in the medial right lung base as well as chronic appearing peripheral basilar interstitial densities. 4. Left lateral wedging of the L3 vertebra, mid lumbar dextroscoliosis, as well as degenerative changes of the spine and hips are stable. Electronically Signed: Ricky Baxter MD at 17:47 EST , Service support , CC: Kathy Daigle; Clarice Ryder MD Food And Beverage Service Manager: Signed STOOL Observed: 06/28/2018 Status: F Source: [place] LACTOFERRIN/WBC 7:10 PM [facility] [place] Stool Lacto/WBC Normal Reference Range = Negative Fecal WBC Lactoferrin Positive: Fecal WBC Lactoferrin present Performed By: #### M100.0605 #### [facility] [address] [place], [address] Observed: 06/28/2018 Status: F Source: [place] CDIFF (MOLECULAR) 7:10 PM [facility] [place] Is the patient receiving laxatives? N New/unexplained onset of 3 or more stools in past 24 hrs? Y Cdiff-Molecular Normal Reference Range = Negative C. Diff DNA Negative- No toxigenic C. Diff DNA Detected NAAT METHOD Testing was performed using nucleic acid amplification Performed By: #### M100.6796 #### [facility] [address] [place], [place], [address] Observed: 06/28/2018 Status: F Source: [place] ENTERIC PATHOGEN 7:10 PM [facility] [place] PANEL STOOL REPOSITORY EP PANEL STOOL Not detected for Campylobacter group, Salmonella species, Shigella species, Vibrio Group, Yersinia enterocolitica, EHEC (Shiga Toxin 1, Shiga Toxin 2), Norovirus Gl/Gll, and Rotavirus A. Other common stool pathogens are not detected on this panel include: Aeromonas/Plesiomonas or parasites. Order testing for these organisms separately if suspected. This is an amplified DNA test which makes it both specific and sensitive. Normal Reference Range = Not Detected CAMPYLOBACTER Not Detected Salmonella Not Detected Shigella sp. Not Detected Shiga Toxin Not Detected Yersinia Not Detected VIBRIO Not Detected Norovirus Not Detected Rotavirus Not Detected Performed By: #### M100.637 #### [facility] [address] [place], [place], [address] HISTORY AND PHYSICAL Observed: 06/28/2018 Status: F Source: [place] EXAM 6:45 PM [facility] [place] [facility] Medical Records Department [address] [place] [address] History and Physical 06/28/18 1538 MR#: [id number] Acct: [id number] Name: PACO WHITNEY Rep #: [id number] : 1935 83 From: Kaleigh Guillaume ALLERGY NURSE-C PCP: Chidi FOWLER,Clarice Status: ADM CORDELIA Y Location: [facility] [id number] ADDENDUM by Kathy Daigle on 06/28/18 at 1845 Code Visit This patient was seen in conjunction with génesis Guillaume NP. I have independently interviewed and examined the patient and reviewed pertinent historical, laboratory and other data. Please refer to history and physical note for details of this patient's presentation, findings and recommendations. I have reviewed Kaleigh's note and concur fully with documented findings. In brief, patient is a 83YO L with a PMH of retention, COPD, hyperlipidemia, TIA, recurrent gastrointestinal bleeding, peripheral neuropathy, GERD and BPH who presented to the emergency department at [facility] on 06/28/2018 complaining of abdominal pain, nausea, vomiting and diarrhea which began the preceding evening after supper. The pain is located primarily in the upper abdomen. The CT of the abdomen and pelvis is significant for a large fluid filled stomach and per my review the duodenum is also dilated. There is a solid mass on the R kidney which is enlarging. the is a 4.4 cm infrarenal AA with mural thrombus......denies claudication and has no evidence of emboli to his toes. PHYSICAL EXAM: GENERAL: alert, oriented X 3, Cooperative, appears to be uncomfortable and in pain ORAL: dry mucosa, no mucosal lesions NECK: No JVD, supple, trachea midline LUNGS: CTA, symmetric chest expansion, diminished HEART: Reg with tachycardia, Normal S1 and S2, no rub, no gallop ABDOMEN: soft, distended, diffusely tender in the upper abdomen, + BS, painful to palpation in the upper abdomen EXTREMITIES: no edema, no cyanosis, no calf tenderness SKIN: No rashes, no breakdown NEUROLOGIC: no focal neurologic deficits PSYCH: appropriate, normal affect, pleasant Assessment: 1. abdominal pain of uncertain etiology - possibly due to gastroenteritis? the stomach and the duodenum are fluid filled and distended and this is likely contributing to the pain. Will make him NPO except sips and chips and insert an NG and place to LIS. Recheck an AA series in the AM. Enteric pathogen panel and fecal Leuko's ordered. Pain medication ordered. 2. enlarging solid Right renal mass - will need a bx going forward....I do not feel that this is the etiology of the pain 3. 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 OBSV E AND M: [id number] Initial observation care L3 06/28/18 1845 <Electronically signed by Melanie Daigle DO> Date Melanie Daigle DO cc: CHRIS Guillaume; Kathy Daigle; Clarice Ryder MD * Signed Problem List (1) HTN (hypertension), benign Status: Chronic (2) Chronic obstructive lung disease Status: Chronic (3) Dyslipidemia Status: Chronic (4) Hx-TIA (transient ischemic attack) Status: Chronic (5) History of gastrointestinal bleeding Status: Chronic (6) Peripheral neuropathy Status: Chronic (7) GERD (gastroesophageal reflux disease) Status: Chronic (8) BPH (benign prostatic hyperplasia) Status: Chronic History of Present Illness Date of Admission: 06/28/18 Chief Complaint: Abdominal pain, N/V, diarrhea The patient is a 83 year old M who presents to the Emergency Room due to abdominal pain, nausea, vomiting, diarrhea. Patient states shortly after dinner last evening he developed significant abdominal pain which extended across the top of his abdomen. He states pain was sharp in nature and not located in one specific area. He has had repeat episodes of emesis since that time. Patient reports diarrhea approximately every 2 hours. He denies hematemesis, denies blood in stool. He denies fever, chills. He denies recent antibiotic use. He reports a history of recurrent diverticulitis however he states his current symptoms feel different than prior episodes of diverticulitis. He states he has not had anything like this before. Denies other associated symptoms. He has a past medical history of hypertension, hyperlipidemia, history of TIA, history of GI bleed, COPD, BPH, GERD, peripheral neuropathy. Past Medical History Past Medical History (Chronic Problems): Chronic Problems Peripheral neuropathy (Chronic) GERD (gastroesophageal reflux disease) (Chronic) BPH (benign prostatic hyperplasia) (Chronic) HTN (hypertension), benign (Chronic) Chronic obstructive lung disease (Chronic) Dyslipidemia (Chronic) Hx-TIA (transient ischemic attack) (Chronic) History of gastrointestinal bleeding (Chronic) Allergies cerivastatin sodium [From Baycol] Allergy (Severe, Verified 06/28/18 12:08) Other KIDNEY FAILURE gemfibrozil [From Lopid] Adverse Reaction (Verified 06/28/18 12:08) Other meperidine [From Demerol] Adverse Reaction (Verified 06/28/18 12:08) Other Home Medications: Ambulatory Orders Medication Instructions Recorded Albuterol Inhaler [Ventolin Hfa] 2 puff INHALATION Q4H PRN PRN 07/05/14 Budesonide/Formoterol 80-4.5 2 puff INHALATION BID 07/05/14 Surgical History: cholecystectomy, tonsillectomy, - - .Right eye surgery, Left knee surgery, lung biopsy, bile duct stone removal. 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 HEENT: Denies: Head Aches, Sinus Congestion, Sinus Drainage Cardiovascular: Denies: Chest Pain, Edema, Palpitations, Syncope Respiratory: Denies: Cough, Shortness of breath at rest, Sputum production Gastrointestinal: Reports: Abdominal Pain, Diarrhea, Nausea, Vomiting. Denies: Hematemesis, Hematochezia, Melena Genitourinary: Denies: Dysuria Musculoskeletal: Denies: Joint Pain, Joint Tenderness Skin: Denies: Rash, Wounds Neurological: Denies: Focal weakness, Numbness, Tingling Psychiatric: Denies: Anxiety, Depression, Homicidal Ideations, Suicidal Ideations Hematologic/ Lymphatic: Denies: Easy Bruising, Easy Bleeding VTE Information - Inpt Only VTE Present on Admission: No VTE Mechan Device Prophylaxis: None VTE Pharm Prophylaxis ordered?: Yes - Physical Exam General: Alert, Oriented x3, Cooperative, - - Appears uncomfortable HEENT: Atraumatic, PERRLA, EOMI, Normocephalic Oral: Dry Mucosa Neck: Supple, No JVD, Negative Carotid Bruits Lungs: Clear to auscultation, Diminished Cardiovascular: Regular Rhythm, Normal S1, Normal S2, No murmurs, Tachycardic Abdomen: Bowel Sounds Present, Soft, Distended, Obese, Tender - Diffuse Extremities: No clubbing, No cyanosis, No edema, Capillary Refill Less than 3 Seconds Skin: No rashes, No breakdown Musculoskeletal: No Tenderness to Palpation of Joints or Extremities Neurological: Cranial nerves II-XII grossly intact, Neuro grossly intact Psych/Mental Status: Normal Affect, Appropriate Vital Signs Temp Pulse Resp BP Pulse Ox 97.9 F 110 H 20 H 102/67 94 06/28/18 12:05 06/28/18 12:05 06/28/18 12:05 06/28/18 12:05 06/28/18 12:05 Oxygen Delivery Method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 Status Change LOPID (GEMFIBROZIL) 07/14/2006 14 - Other: See Comments Comments: Myalgia. 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] Right renal mass [N28.89] BENIGN HYPERTENSION [I10] Order(s):Fenofibrate (LOFIBRA) 160 mg tabletTake 1 tablet by mouth once daily.Disp: 30 tabletRfl: 11 LIPID PANEL BASIC [SQLIPB] Order #: [id number] FUTURE COMP METABOLIC PANEL [SQCMP] Order #: [id number] FUTURE ramipril (ALTACE) 10 mg capsuleTake 1 capsule by mouth once daily.Disp: Rfl: Prescriptions as of 02/09/2018 Sig: RAMIPRIL 10 MG CAPSULE Take 1 capsule by mouth once * CLOPIDOGREL 75 MG TABLET Take 1 tablet by mouth once d* GABAPENTIN 100 MG CAPSULE Take 1 capsule by mouth three* TAMSULOSIN 0.4 MG CAPSULE TAKE ONE CAPSULE BY MOUTH ONC* HYDROCORTISONE 2.5 % TOPICAL * Apply to affected area 3-4 ti* PANTOPRAZOLE 40 MG TABLET,DEL* Take 1 tablet by mouth daily * BUDESONIDE-FORMOTEROL HFA 80 * Inhale 2 Puffs as instructed * MECLIZINE 25 MG TABLET Take 1 tablet by mouth every * ALBUTEROL SULFATE HFA 90 MCG/* Inhale 1-2 Puffs as instructe* CLOTRIMAZOLE-BETAMETHASONE 1 * Apply 1 application to affect* HYDROCODONE 10 MG-CHLORPHENIR* Take 5 mL by mouth twice leyla* [id number] * Use 4 Drops in the ears four * IPRATROPIUM BROMIDE 0.02 % SO* Use via nebulizer. 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] INVALID FOR* Diverticulosis [K57.90] INVALID FOR* Right renal mass [N28.89] INVALID FOR* Renal cyst [N28.1] INVALID FOR* Benign non-nodular prostatic hyperplasia with l*INVALID FOR* Abdominal aortic aneurysm without rupture (HCC)*INVALID FOR* Lung mass [R91.8] INVALID FOR* Prescriptions ordered this encounter Disp Refills Start End FENOFIBRATE 160 MG TABLET 30 t* 11 02/09/2018 Route: ORAL Sig: Take 1 tablet by mouth once daily. RAMIPRIL 10 MG CAPSULE 02/09/2018 Class: Med Update Route: ORAL Sig: Take 1 capsule by mouth once daily. Medications Discontinued During This Encounter iv contrast (radiology procedure) 1 Ea* 0 11/25/2016 02/09/2018 Class: In Office Sig: CT kidney wow Inject, intravenously, once for 1 dose.No IV access, insert saline lock prior to the beginning of sedation, infusion, injection of imaging exam. Discontinue saline lock post exam. If Pt. has a central line or IVAD, may access for administration according to line specific nursing protocol. Once exam is complete flush line and de-access according to line specific nursing protocol in the CT contrast administration guidelines link. Patient not taking: Reported on 11/25/2017 Disc: Reason for discontinue is not on file. Fenofibrate (LOFIBRA) 160 mg tablet 30 t* 11 01/19/2017 02/09/2018 Route: ORAL Sig: Take 1 tablet by mouth once daily. Disc: Reason for discontinue is not on file. ramipril (ALTACE) 10 mg capsule 180 * 1 01/10/2018 02/09/2018 Route: ORAL Sig: Take 1 capsule by mouth twice daily. Disc: Reason for discontinue is not on file. Disposition: Return in about 3 months (around 05/12/2018). Follow-up and Disposition History Recorded Encounter Status:Closed by CLARICE RYDER MD on 02/10/18 PROGRESS Observed: 02/09/2018 Status: COMPLETED Source: [place] 10:58 AM [facility] REPOSITORY HNO ID: [id number] Author: Clarice Ryder Service: (none) Author Type: Physician Type: Progress Notes Filed: 02/10/2018 3:33 PM Note Text: Chief Complaint Patient presents with: F/U 6 months HPI Paco Whitney is a 82 year old male who presents here today for 6 month follow up. No bowel, Gi, or urinary concerns. Watching diet to control the Diverticulitis. Scheduled in Jun to repeat CT of lungs and kidneys. HTN: does check BP occ at home. Admits to CP, dizziness, or SOB with exertion. Taking Altace 10 mg BID. Taking Plavix 75 mg daily. Does not see a curriculum director. Today feels that his head is foggy, difficulty focusing. He had this happen in the past where he got up went out to the chair and his head felt funny so he went to bed and slept most that day and into the following day. He has never checked his BP to see if this is triggered to his BP being low or high. This has been something that has been ongoing for a long time. He states some days the head feels normal. Has not been able to correlate what causes him to feel that way. GERD: controlled on the Protonix 40 mg daily. COPD: Coughing up bloody mucous, has been ongoing for the last year. Had CT done to check lungs. He is following the Dr. Rowell, Pulmonary. Had a bx of the lung that was benign. He does use albuterol inhalers and nebulizer. The heat makes his breathing worse. Lipid: tries to watch diet and tries to exercise. Is taking Fenofibrate 160 mg daily. Pain: is taking Gabapentin 100 mg TID. Has a spot on the middle of spine that is a dull ache. He denies any lumps or redness. Kidney mass: has been following wit urologist Dr. Chalino Valdez who is keeping an eye on the kidneys. Past medical history, appointments, medications, allergies reviewed. Previous Medical History PAST MEDICAL HISTORY Diagnosis Date - Chronic airway obstruction, not elsewhere classified - Diaphragmatic hernia without mention of obstruction or gangrene - Diverticulitis 12/16/2014 - Diverticulosis of colon with hemorrhage - Essential hypertension, benign - History of eye surgery 03/29/2011 Right eye - Other and unspecified hyperlipidemia - Rectal bleeding 12/16/2014 - Retinal detachment with retinal defect, unspecified RIGHT EYE, WITH LENSE - Rhabdomyolysis 2003 had as a result of Baycol - Unspecified asthma(493.90) - Unspecified cause of encephalitis, myelitis, 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 Romeo - REMOVAL GALLBLADDER 2005 Cholecystectomy - REMOVAL OF TONSILS,<12 Y/O Tonsillectomy - REPAIR,DETACH RETINA,PHOTOCOAG 2003 Laser repair retinal detach, right eye - TOTAL KNEE REPLACEMENT 2002 Knee replacement, total, left - VASECTOMY 1964 Family History FAMILY HISTORY Problem Relation Age of Onset - Hypertension Mother - Parkinsons disease [OTHER] Mother - Heart Father - Heart Brother Heart surgery - Cancer Brother of liver. - Diabetes Brother Patient Allergies ALLERGIES Allergen Reactions - Baycolother] [Other] Other: See Comments Rhabdomyolysis. - Demerol [Meperidine* Mental Status Change - Lopid [Gemfibrozil] Other: See Comments Myalgia. Current Medications Current Outpatient Prescriptions on File Prior to Visit: ramipril (ALTACE) 10 mg capsule Take 1 capsule by mouth twice daily. clopidogrel (PLAVIX) 75 mg tablet Take 1 tablet by mouth once daily. gabapentin (NEURONTIN) 100 mg capsule Take 1 capsule by mouth three times daily for 180 days. tamsulosin ER (FLOMAX) 0.4 mg cp24 TAKE ONE CAPSULE BY MOUTH ONCE DAILY AT BEDTIME hydrocortisone (ANUSOL-HC) 2.5 % rectal cream Apply to affected area 3-4 times daily as needed pantoprazole DR (PROTONIX) 40 mg tablet Take 1 tablet by mouth daily before breakfast. Take on empty stomach, 1/2 hr before meal. budesonide-formoterol (SYMBICORT) 80-4.5 mcg/actuation inhaler Inhale 2 Puffs as instructed twice daily. Rinse mouth after use. Fenofibrate (LOFIBRA) 160 mg tablet Take 1 tablet by mouth once daily. meclizine (ANTIVERT) 25 mg tab Take 1 tablet by mouth every 6 hours as needed. FOR DIZZINESS albuterol HFA (PROVENTIL HFA, VENTOLIN HFA) 90 mcg/actuation inhaler Inhale 1-2 Puffs as instructed four times daily as needed. FOR WHEEZING AND SHORTNESS OF BREATH. clotrimazole-betamethasone (LOTRISONE) cream Apply 1 application to affected area twice daily. Chlorpheniramine-HYDROcodone (TUSSIONEX PENNKINETIC ER) 10- 8 mg/5 mL suspension Take 5 mL by mouth twice daily. mflweypf-wptrqujeb-qdpfhscvzfkvmw (CORTISPORIN) 3.5-10,000-1 mg/mL-unit/mL-% otic suspension Use 4 Drops in the ears four times daily. x 1 week ipratropium 0.02 % nebulizer solution Use via nebulizer. 1 nebule 3 times a day as needed. albuterol 2.5 mg /3 mL (0.083 %) nebulizer solution Use 3 mL via nebulizer three times daily as needed. OVER 5-15 MINUTES. FOR WHEEZING AND SHORTNESS OF BREATH. CHOLECALCIFEROL (VITAMIN D3) 1,000 UNIT CAP take 6 tablets daily iv contrast (radiology procedure) CT kidney wow Inject, intravenously, once for 1 dose.No IV access, insert saline lock prior to the beginning of sedation, infusion, injection of imaging exam. Discontinue saline lock post exam. If Pt. has a central line or IVAD, may access for administration according to line specific nursing protocol. Once exam is complete flush line and de-access according to line specific nursing protocol in the CT contrast administration guidelines link. (Patient not taking: Reported on 11/25/2017 ) No current facility-administered medications on file prior to visit. 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 General Appearance: Well appearing, alert, in no acute distress, well-hydrated, well nourished. and Overweight. Back: muscle tightness and tenderness to spine/rib Lungs: Lungs clear to auscultation. No wheezing, rhonchi, rales. Heart: RRR without murmur, gallop, or rubs. No ectopy. Abdomen: Normal abdominal exam, Abdomen soft, non-tender. Bowel sounds normal. No masses, organomegaly. Health Maintenance List DTAP,TDAP,TD(1 - Tdap) due on 02/10/2012 STEROID INHALER ADHERENCE due on 02/15/2018 INFLUENZA(1) due on 03/18/2018 ANNUAL PCP TEAM CHRONIC DISEASE VISIT due on 08/11/2018 BLOOD PRESSURE CONTROLLED due on 11/25/2018 DIABETES SCREEN due on 02/03/2021 LIPID SCREEN due on 02/03/2023 ADULT PREVNAR-13 Completed PNEUMOVAX AGE 65 AND OVER WITH 5YR LOOKBACK Completed Data reviewed Appointment on 02/03/2018 Component Date Value - Protein, Total 02/03/2018 6.8 - Albumin 02/03/2018 4.2 - Calcium 02/03/2018 10.2 - Bilirubin, Total 02/03/2018 0.6 - Alkaline Phosphatase 02/03/2018 42 - AST 02/03/2018 32 - Glucose 02/03/2018 96 - BUN 02/03/2018 27* - Creatinine 02/03/2018 1.22 - Sodium 02/03/2018 140 - Potassium 02/03/2018 4.7 - Chloride 02/03/2018 103 - CO2 02/03/2018 25 - Anion Gap 02/03/2018 12 - ALT 02/03/2018 33 - eGFR- 02/03/2018 >60 - eGFR-All Other Races 02/03/2018 57 - Cholesterol, Total 02/03/2018 181 - Triglyceride 02/03/2018 335* - HDL Cholesterol 02/03/2018 29* - LDL Cholesterol 02/03/2018 85 - Non HDL Cholesterol 02/03/2018 152* - Fasting Time 02/03/2018 11 - VLDL Cholesterol 02/03/2018 67* - TC:HDL Ratio 02/03/2018 6.24* - LDL:HDL Ratio 02/03/2018 2.93* Office Visit on 12/29/2017 Component Date Value - GLUCOSE UA (POCT) 12/29/2017 Negative - BILIRUBIN UA (POCT) 12/29/2017 Negative - KETONE UA (POCT) 12/29/2017 Negative - SPECIFIC GRAVITY UA (POC* 12/29/2017 1.020 - HEMOGLOBIN/BLOOD UA (PO* 12/29/2017 Trace-intact* - PH UA (POCT) 12/29/2017 5.5 - PROTEIN UA (POCT) 12/29/2017 Negative - UROBILINOGEN UA (POCT) 12/29/2017 0.2 - NITRITE UA (POCT) 12/29/2017 Negative - LEUKOCYTES UA (POCT) 12/29/2017 Negative - COLOR UA (POCT) 12/29/2017 Yellow - CLARITY UA (POCT) 12/29/2017 Clear ASSESSMENT/PLAN: 1. COPD with exacerbation (HCC) - ICD9: 491.21, ICD10: J44.1 (primary diagnosis) Continue current medications. Continue with Pulmonary 2. Essential hypertension, benign - ICD9: 401.1, ICD10: I10 - good control - Decrease altace to once daily - Recommended regular aerobic exercise. - Recommend home blood pressure monitoring, to bring results in on next visit - Goal of BP <140/90 3. Hyperlipidemia, unspecified hyperlipidemia type - ICD9: 272.4, ICD10: E78.5 - good control - Continue current medication. - Encouraged following a low fat, low cholesterol diet. - Discussed the benefits of regular aerobic exercise and weight loss. - FENOFIBRATE 160 MG TABLET 4. Abdominal 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) - ICD9: 441.4, ICD10: I71.4 Stable 5. Other osteoarthritis of spine, lumbar region - ICD9: 721.3, ICD10: M47.896 6. Right renal mass - ICD9: 593.9, ICD10: N28.89 Continue with specialist 7. BENIGN HYPERTENSION - ICD9: 401.1, ICD10: I10 - good control - Decrease Altace to 1 tablet daily - Recommended regular aerobic exercise. - Recommend home blood pressure monitoring, to bring results in on next visit - Goal of BP <140/90 Follow up in 3 month to check BP and see how he feels on lower dose of altace Clarice Ryder MD The documentation for this note was completed by Marianne Escobar Ma acting as scribe for Clarice Ryder MD. February 09, 2018 10:59 AM. COMP METABOLIC PANEL Collected: 02/03/2018 Status: F Source: [place] 8:21 AM [facility] REPOSITORY TYPE CODE TESTS RESULT OUT OF REFERENCE UNITS RANGE LAB TP 6.3-8.0 g/dL Protein, Total 6.8 LAB ALB 3.9-4.9 g/dL Albumin 4.2 LAB CA 8.5-10.2 mg/dL Calcium, Total 10.2 LAB TBIL 0.2-1.3 mg/dL Bilirubin, Total 0.6 LAB ALKP 36-108 U/L Alkaline Phosphatase 42 LAB AST 14-40 U/L AST 32 LAB GLU 74-99 mg/dL Glucose 96 Result Comment: The [place] Diabetes Association (ADA) provides guidance for cutoff values for fasting glucose and random glucose. The ADA defines fasting as no caloric intake for at least 8 hours. Fas ting plasma glucose results between 100 to 125 mg/dL indicate increased risk for diabetes (prediabetes). Fasting plasma glucose results greater than or equal to 126 mg/dL meet the criteria for diagnosis of diabetes. In the absence of unequivocal hyperglycemia, results should be confirmed by repeat testing. In a patient with classic symptoms of hyperglycemia or hyperglycemic crisis, random plasma glucose results greater than or equal to 200 mg/dL meet the criteria for diagnosis of diabetes. Reference: Standards of Medical Care in Diabetes 2016, [place] Diabetes Association. Diabetes Care. 2016.39(Suppl 1). LAB BUN 9-24 mg/dL BUN High 27 LAB CRET 0.73-1.22 mg/dL Creatinine 1.22 LAB NA 136-144 mmol/L Sodium 140 LAB K 3.7-5.1 mmol/L Potassium 4.7 LAB CL 97-105 mmol/L Chloride 103 LAB CO2 22-30 mmol/L CO2 25 LAB AGAP 9-18 mmol/L Anion Gap 12 LAB ALT 10-54 U/L ALT 33 LAB GFRAA eGFR- Amer. >60 LAB GFRNAA . eGFR-All Other Races 57 Result Comment: eGFR (Estimated GFR) Units of measure: mL/min/1.73 meters squared eGFR is derived from the reexpressed MDRD Study equation using the following parameters: serum creatinine, age, gender and race. The creatinine assay has been calibrated to be traceable to IDMS. An eGFR <60 mL/min/1.73m2 for >3 months is consistent with chronic kidney disease. Refer to KDOQI guidelines for clinical interpretation. In patients with unstable renal function, e.g. those with acute kidney injury, the eGFR may not accurately reflect actual GFR. Performed By: #### CMP, LIPB #### [facility] [address] [place], [place] [address] LIPID PANEL, BASIC Collected: 02/03/2018 Status: F Source: [place] 8:21 AM [facility] REPOSITORY TYPE CODE TESTS RESULT OUT OF REFERENCE UNITS RANGE LAB CHOL <200 mg/dL Cholesterol 181 Result Comment: <200 mg/dL, Desirable 200-239 mg/dL, Borderline high >239 mg/dL, High LAB TRIGLY <150 mg/dL Triglyceride High 335 Result Comment: <150 mg/dL, Normal 150-199 mg/dL, Borderline high 200-499 mg/dL, High >499 mg/dL, Very high LAB HDL >39 mg/dL HDL-Cholesterol Low 29 Result Comment: 40-59 mg/dL, Acceptable >59 mg/dL, High: Negative risk factor for coronary heart disease <40 mg/dL, Low: Positive risk factor for coronary heart disease LAB LDL <100 mg/dL LDL-Cholesterol 85 Result Comment: <100 mg/dL, Optimal 100-129 mg/dL, Near optimal/above optimal 130-159 mg/dL, Borderline high 160-189 mg/dL, High >189 mg/dL, Very high Secondary prevention optimal LDL Cholesterol levels are recommended to be < 70 mg/dL LAB NONHDL <130 mg/dL Non HDL High Cholesterol 152 Result Comment: <130 mg/dL, Optimal 130-159 mg/dL, Near optimal/above optimal 160-189 mg/dL, Borderline high 190-219 mg/dL, High >219 mg/dL, Very high Secondary prevention optimal non HDL Cholesterol levels are recommended to be < 100 mg/dL LAB FT hrs Fasting Time 11 LAB VLDL <30 mg/dL High VLDL Cholesterol 67 LAB TCHDL <5.10 High TC:HDL Ratio 6.24 LAB LDLHDL <2.54 High LDL:HDL Ratio 2.93 Result Comment: Reference: 1. National Cholesterol Education Program ATP III Guideline At-A-Glance Quick Desk Reference: National Heart, Lung, and Blood [place]. National Institutes of Health. 2001: NIH Publication No. 01-3305. 2. An International Atherosclerosis Society position paper: global recommendations for the management of dyslipidemia: executive summary, Atherosclerosis. 2014: 232(2):410-413. Performed By: #### CMP, LIPB #### [facility] [address] [address] PROGRESS Observed: 12/29/2017 Status: COMPLETED Source: [place] 11:28 AM [facility] REPOSITORY HNO ID: [id number] Author: Chalino Valdez DO Service: (none) Author Type: Physician Type: Progress Notes Filed: 12/29/2017 10:26 PM Note Text: ?? [facility] [place] [facility] LOCATION: [address] [place] [address] Paco Whitney is a 82 year old male. CC : Small renal mass and aortic aneurysm history of lung mass HPI: Patient here for Renal Mass evaluation. Completely asymptomatic. He is getting chest examination a regular basis. No nausea vomiting diarrhea fevers chills weight loss. No bladder sections kidney stones blood in the urine. Frequency frequency straining or hesitancy. He says he has no urinary symptoms as long as he takes his Flomax. Reviewed and discussed recent CT Scan we have discussed possible PNx v Renal Cryoablation 4.7 cm AAA that is stable in size on recent CT scan VITALS: Height 170.2 cm (5' 7), weight 101.6 kg (224 lb). LAB RESULTS: Results for orders placed or performed in visit on 12/29/17 UA DIP, URINE (POC) Result Value Ref Range GLUCOSE UA (POCT) Negative Negative mg/dL BILIRUBIN UA (POCT) Negative Negative KETONE UA (POCT) Negative Negative mg/dL SPECIFIC GRAVITY UA (POCT) 1.020 1.005 - 1.030 HEMOGLOBIN/BLOOD UA (POCT) Trace-intact (A) Negative PH UA (POCT) 5.5 4.5 - 8.0 PROTEIN UA (POCT) Negative Negative mg/dL UROBILINOGEN UA (POCT) 0.2 Normal E.U./dL NITRITE UA (POCT) Negative Negative LEUKOCYTES UA (POCT) Negative Negative COLOR UA (POCT) Yellow CLARITY UA (POCT) Clear Creatinine Date Value Ref Range Status 11/22/2017 1.26 (H) 0.73 - 1.22 mg/dL Final 07/26/2017 1.29 (H) 0.73 - 1.22 mg/dL Final 01/24/2017 1.24 (H) 0.73 - 1.22 mg/dL Final 06/14/2016 1.34 (H) 0.73 - 1.22 mg/dL Final IMAGES: IMPRESSION: Increase in the size of the right lung base nodule, when compared with more remote studies. Further slight increase in size of the enhancing solid right renal mass. No additional suspicious mass or adenopathy within the visualized abdomen. Physical Exam: PHYSICAL EXAMINATION: General appearance: cooperative, pleasant, no acute distress, alert and oriented, well hydrated, well nourished male.. 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 Romeo Hx of Pulmonary Nodule - Stable , biopsied previously and was not malignant Hx of BPH nubia Valdez DO, MBA CNOV Observed: 12/29/2017 Status: COMPLETED Source: [place] 10:45 AM [facility] REPOSITORY Office Visit (UROLMD) PACO WHITNEY ([id number]) 1935 M Date Time Provider Department 12/29/17 10:45 AM [place] CHALINO JACOBO During your visit today, we recorded the following information about you: Weight Height 101.6 kg 1.702 m [facility] 12/29/2017 11:19 AM Signed Patient presents with: New Patient: Renal mass Chalino Valdez DO, MBA, DO 12/29/2017 10:26 PM Signed ?? [facility] [place] [facility] LOCATION: [address] [place] [address] Paco Whitney is a 82 year old male. CC : Small renal mass and aortic aneurysm history of lung mass HPI: Patient here for Renal Mass evaluation. Completely asymptomatic. He is getting chest examination a regular basis. No nausea vomiting diarrhea fevers chills weight loss. No bladder sections kidney stones blood in the urine. Frequency frequency straining or hesitancy. He says he has no urinary symptoms as long as he takes his Flomax. Reviewed and discussed recent CT Scan we have discussed possible PNx v Renal Cryoablation 4.7 cm AAA that is stable in size on recent CT scan VITALS: Height 170.2 cm (5' 7), weight 101.6 kg (224 lb). LAB RESULTS: Results for orders placed or performed in visit on 12/29/17 UA DIP, URINE (POC) Result Value Ref Range GLUCOSE UA (POCT) Negative Negative mg/dL BILIRUBIN UA (POCT) Negative Negative KETONE UA (POCT) Negative Negative mg/dL SPECIFIC GRAVITY UA (POCT) 1.020 1.005 - 1.030 HEMOGLOBIN/BLOOD UA (POCT) Trace-intact (A) Negative PH UA (POCT) 5.5 4.5 - 8.0 PROTEIN UA (POCT) Negative Negative mg/dL UROBILINOGEN UA (POCT) 0.2 Normal E.U./dL NITRITE UA (POCT) Negative Negative LEUKOCYTES UA (POCT) Negative Negative COLOR UA (POCT) Yellow CLARITY UA (POCT) Clear Creatinine Date Value Ref Range Status 11/22/2017 1.26 (H) 0.73 - 1.22 mg/dL Final 07/26/2017 1.29 (H) 0.73 - 1.22 mg/dL Final 01/24/2017 1.24 (H) 0.73 - 1.22 mg/dL Final 06/14/2016 1.34 (H) 0.73 - 1.22 mg/dL Final IMAGES: IMPRESSION: Increase in the size of the right lung base nodule, when compared with more remote studies. Further slight increase in size of the enhancing solid right renal mass. No additional suspicious mass or adenopathy within the visualized abdomen. Physical Exam: PHYSICAL EXAMINATION: General appearance: cooperative, pleasant, no acute distress, alert and oriented, well hydrated, well nourished male.. 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 Romeo Hx of Pulmonary Nodule - Stable , biopsied previously and was not malignant Hx of BPH w LUTS Chalino Valdez DO, LISANDRO Referring Provider: CLARICE RYDER [[id number]] Allergies As of Date: 12/29/2017 Noted Allergy Reaction baycolOther] [Other] 09/08/2006 14 - Other: See Comments Comments: Rhabdomyolysis. DEMEROL (MEPERIDINE (PF)) 11/18/2016 1 - Mental Status Change LOPID (GEMFIBROZIL) 07/14/2006 14 - Other: See Comments Comments: Myalgia. Date Reviewed: 12/29/2017 Reviewed by: Chalino Valdez DO - Fully Assessed Reason for Visit: New Patient [172] Cmt: Renal mass Primary Visit Diagnosis:Renal mass [N28.89] Other Visit Diagnoses:Other specified disorders of kidney and ureter [N28.89] Benign non-nodular prostatic hyperplasia with lower urinary tract symptoms [N40.1] Order(s):UA DIP, URINE (POC) [[id number]] Order #: [id number]. #:[id number] CT KIDNEY WO/W IVCON [[id number]] Order #: [id number] FUTURE iv contrast (will be provided with radiology test)CT kidney wow Inject, intravenously, once for 1 dose.No IV access, insert saline lock prior to the beginning of sedation, infusion, injection of imaging exam. Discontinue saline lock post exam. If Pt. has a central line or IVAD, may access for administration according to line specific nursing protocol. Once exam is complete flush line and de-access according to line specific nursing protocol in the CT contrast administration guidelines link.Disp: 1 EachRfl: 0 BASIC METABOLIC PNL [SQBMP] Order #: [id number] FUTURE Prescriptions as of 12/29/2017 Sig: IV CONTRAST (RADIOLOGY PROCED* CT kidney wow Inject, intrave* CLOPIDOGREL 75 MG TABLET Take 1 tablet by mouth once d* GABAPENTIN 100 MG CAPSULE Take 1 capsule by mouth three* TAMSULOSIN 0.4 MG CAPSULE TAKE ONE CAPSULE BY MOUTH ONC* HYDROCORTISONE 2.5 % TOPICAL * Apply to affected area 3-4 ti* PANTOPRAZOLE 40 MG TABLET,DEL* Take 1 tablet by mouth daily * BUDESONIDE-FORMOTEROL HFA 80 * Inhale 2 Puffs as instructed * FENOFIBRATE 160 MG TABLET Take 1 tablet by mouth once d* RAMIPRIL 10 MG CAPSULE Take 1 capsule by mouth twice* IV CONTRAST (RADIOLOGY PROCED* CT kidney wow Inject, intrave* Patient not taking: Reported on 11/25/2017 MECLIZINE 25 MG TABLET Take 1 tablet by mouth every * ALBUTEROL SULFATE HFA 90 MCG/* Inhale 1-2 Puffs as instructe* CLOTRIMAZOLE-BETAMETHASONE 1 * Apply 1 application to affect* HYDROCODONE 10 MG-CHLORPHENIR* Take 5 mL by mouth twice leyla* [id number] * Use 4 Drops in the ears four * IPRATROPIUM BROMIDE 0.02 % SO* Use via nebulizer. 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] INVALID FOR* Diverticulosis [K57.90] INVALID FOR* Right renal mass [N28.89] INVALID FOR* Renal cyst [N28.1] INVALID FOR* Benign non-nodular prostatic hyperplasia with l*INVALID FOR* Abdominal aortic aneurysm without rupture (HCC)*INVALID FOR* Lung mass [R91.8] INVALID FOR* Visit Notes: >> Nithya Brooks Ma Mireille Dec 29, 2017 11:13 AM Status: Signed Patient presents with: New Patient: Renal mass Prescriptions ordered this encounter Disp Refills Start End IV CONTRAST (RADIOLOGY PROCEDURE) 1 Ea* 0 12/29/2017 12/30/2017 Class: In Office Sig: CT kidney wow Inject, intravenously, once for 1 dose.No IV access, insert saline lock prior to the beginning of sedation, infusion, injection of imaging exam. Discontinue saline lock post exam. If Pt. has a central line or IVAD, may access for administration according to line specific nursing protocol. Once exam is complete flush line and de-access according to line specific nursing protocol in the CT contrast administration guidelines link. Disposition: Return in about 6 months (around 06/30/2018). Follow-up and Disposition History Recorded Letter Text Encounter Status:Closed by CHALINO VALDEZ DO, MBA on 12/29/17 CNOV Observed: 11/25/2017 Status: COMPLETED Source: [place] 11:30 AM [facility] REPOSITORY Office Visit (UROLWS) PACO WHITNEY ([id number]) 1935 M Date Time Provider Department 11/25/17 11:30 AM JIL HENRIQUEZ) UROLWS During your visit today, we recorded the following information about you: Pulse Blood pressure Weight 80/minute 108/68 102.3 kg Jil Henriquez (Oli) 11/25/2017 12:36 PM Signed Paco Whitney is a 82 year old male. CC : Small renal mass and aortic aneurysm history of lung mass HPI: Patient here for Renal Mass follow-up. Completely asymptomatic. He is getting chest examination a regular basis. No nausea vomiting diarrhea fevers chills weight loss. No bladder sections kidney stones blood in the urine. Frequency frequency straining or hesitancy. He says he has no urinary symptoms as long as he takes his Flomax. Reviewed and discussed recent CT Scan and made consult with Dr. Valdez to discuss possible PNx v Renal Cryoablation 4.7 cm AAA VITALS: There were no vitals taken for this visit. LAB RESULTS: Results for orders placed or performed in visit on 11/22/17 CREATININE BLD Result Value Ref Range Creatinine 1.26 (H) 0.73 - 1.22 mg/dL eGFR- >60 eGFR-All Other Races 55 . Creatinine Date Value Ref Range Status 11/22/2017 1.26 (H) 0.73 - 1.22 mg/dL Final 07/26/2017 1.29 (H) 0.73 - 1.22 mg/dL Final 01/24/2017 1.24 (H) 0.73 - 1.22 mg/dL Final 06/14/2016 1.34 (H) 0.73 - 1.22 mg/dL Final IMAGES: IMPRESSION: Increase in the size of the right lung base nodule, when compared with more remote studies. Further slight increase in size of the enhancing solid right renal mass. No additional suspicious mass or adenopathy within the visualized abdomen. Physical Exam: PHYSICAL EXAMINATION: General appearance: cooperative, pleasant, no acute distress, alert and oriented, well hydrated, well nourished male.. 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 Valdez to discuss Possible treatment of R Renal Mass > Hx of 4.7 cm infrarenal abdominal aortic aneurysm - stable followed by Dr. Romeo > Hx of Pulmonary Nodule - Stable , biopsied previously and was not malignant > Hx of BPH w LUTS Jil Henriquez, MPAS, MT, PA-C Referring Provider: JIL HENRIQUEZ (OLI) [[id number]] Allergies As of Date: 11/25/2017 Noted Allergy Reaction baycolOther] [Other] 09/08/2006 14 - Other: See Comments Comments: Rhabdomyolysis. DEMEROL (MEPERIDINE (PF)) 11/18/2016 1 - Mental Status Change LOPID (GEMFIBROZIL) 07/14/2006 14 - Other: See Comments Comments: Myalgia. Date Reviewed: 11/25/2017 Reviewed by: Sofie Sanchez Ma - Fully Assessed Reason for Visit: Follow Up [171] Renal Cyst [1345] Reason For Visit History Recorded Primary Visit Diagnosis:Right renal mass [N28.89] Other Visit Diagnoses:Renal cyst [N28.1] Lung mass [R91.8] Abdominal aortic aneurysm without rupture (HCC) [I71.4] Order(s):UA DIP, URINE (POC) [[id number]] Order #: [id number] UA DIP, URINE (POC) [[id number]] Order #: [id number]. #:[id number] CONSULT TO UROLOGY [9041] Order #: [id number]: 1 Prescriptions as of 11/25/2017 Sig: GABAPENTIN 100 MG CAPSULE Take 1 capsule by mouth three* TAMSULOSIN 0.4 MG CAPSULE TAKE ONE CAPSULE BY MOUTH ONC* HYDROCORTISONE 2.5 % TOPICAL * Apply to affected area 3-4 ti* PANTOPRAZOLE 40 MG TABLET,DEL* Take 1 tablet by mouth daily * BUDESONIDE-FORMOTEROL HFA 80 * Inhale 2 Puffs as instructed * FENOFIBRATE 160 MG TABLET Take 1 tablet by mouth once d* RAMIPRIL 10 MG CAPSULE Take 1 capsule by mouth twice* CLOPIDOGREL 75 MG TABLET Take 1 tablet by mouth once d* MECLIZINE 25 MG TABLET Take 1 tablet by mouth every * ALBUTEROL SULFATE HFA 90 MCG/* Inhale 1-2 Puffs as instructe* CLOTRIMAZOLE-BETAMETHASONE 1 * Apply 1 application to affect* HYDROCODONE 10 MG-CHLORPHENIR* Take 5 mL by mouth twice leyla* [id number] * Use 4 Drops in the ears four * IPRATROPIUM BROMIDE 0.02 % SO* Use via nebulizer. 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] INVALID FOR* Diverticulosis [K57.90] INVALID FOR* Right renal mass [N28.89] INVALID FOR* Renal cyst [N28.1] INVALID FOR* Benign non-nodular prostatic hyperplasia with l*INVALID FOR* Abdominal aortic aneurysm without rupture (HCC)*INVALID FOR* Lung mass [R91.8] INVALID FOR* Follow-up and Disposition History Recorded Encounter Status:Closed by JIL HENRIQUEZ PA-C on 11/25/17 PROGRESS Observed: 11/25/2017 Status: COMPLETED Source: [place] 11:26 AM [facility] REPOSITORY HNO ID: [id number] Author: Jil Henriquez (Oli) Service: (none) Author Type: Physician Overcoil Stepper Type: Progress Notes Filed: 11/25/2017 12:36 PM Note Text: Paco Whitney is a 82 year old male. CC : Small renal mass and aortic aneurysm history of lung mass HPI: Patient here for Renal Mass follow-up. Completely asymptomatic. He is getting chest examination a regular basis. No nausea vomiting diarrhea fevers chills weight loss. No bladder sections kidney stones blood in the urine. Frequency frequency straining or hesitancy. He says he has no urinary symptoms as long as he takes his Flomax. Reviewed and discussed recent CT Scan and made consult with Dr. Valdez to discuss possible PNx v Renal Cryoablation 4.7 cm AAA VITALS: There were no vitals taken for this visit. LAB RESULTS: Results for orders placed or performed in visit on 11/22/17 CREATININE BLD Result Value Ref Range Creatinine 1.26 (H) 0.73 - 1.22 mg/dL eGFR- >60 eGFR-All Other Races 55 . Creatinine Date Value Ref Range Status 11/22/2017 1.26 (H) 0.73 - 1.22 mg/dL Final 07/26/2017 1.29 (H) 0.73 - 1.22 mg/dL Final 01/24/2017 1.24 (H) 0.73 - 1.22 mg/dL Final 06/14/2016 1.34 (H) 0.73 - 1.22 mg/dL Final IMAGES: IMPRESSION: Increase in the size of the right lung base nodule, when compared with more remote studies. Further slight increase in size of the enhancing solid right renal mass. No additional suspicious mass or adenopathy within the visualized abdomen. Physical Exam: PHYSICAL EXAMINATION: General appearance: cooperative, pleasant, no acute distress, alert and oriented, well hydrated, well nourished male.. 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 Valdez to discuss Possible treatment of R Renal Mass > Hx of 4.7 cm infrarenal abdominal aortic aneurysm - stable followed by Dr. Romeo > Hx of Pulmonary Nodule - Stable , biopsied previously and was not malignant > Hx of BPH w LUTS Jil Henriquez, MPAS, MT, PA-C PROGRESS Observed: 11/23/2017 Status: COMPLETED Source: [place] 2:46 PM [facility] REPOSITORY HNO ID: [id number] Author: Suzie Moseley Service: (none) Author Type: (none) Type: Progress Notes Filed: 11/23/2017 2:47 PM Note Text: Radiology Service Progress Note PATIENT NAME: Paco Whitney DATE OF SERVICE: November 23, 2017 TIME: 2:46 PM PATIENT IDENTITY VERIFICATION COMPLETED USING TWO (2) METHODS: Patient confirmed name verbally and Date of . PATIENT GENDER DATA: Male PATIENT RELEVANT IMPLANT DATA REVIEWED: Not Applicable CONTRAST INDUCED NEPHROPATHY RISK FACTORS: Patient age > 60 years CREATININE: Creatinine Date Value Ref Range Status 11/22/2017 1.26 (H) 0.73 - 1.22 mg/dL Final 07/26/2017 1.29 (H) 0.73 - 1.22 mg/dL Final 01/24/2017 1.24 (H) 0.73 - 1.22 mg/dL Final eGFR-All Other Races Date Value Ref Range Status 11/22/2017 55 . Final Comment: eGFR (Estimated GFR) Units of measure: mL/min/1.73 meters squared eGFR is derived from the reexpressed MDRD Study equation using the following parameters: serum creatinine, age, gender and race. The creatinine assay has been calibrated to be traceable to IDMS. An eGFR <60 mL/min/1.73m2 for >3 months is consistent with chronic kidney disease. Refer to KDOQI guidelines for clinical interpretation. In patients with unstable renal function, e.g. those with acute kidney injury, the eGFR may not accurately reflect actual GFR. eGFR- Date Value Ref Range Status 11/22/2017 >60 Final P.O.C.T. RESULTS: POC done: Yes, See Lab Tab November 23, 2017 RADIOLOGIST NOTIFIED?: No ALLERGIES: Reviewed and unchanged CONTRAST ALLERGY: NO. PERIPHERAL IV ACCESS: Ambulatory: IV type: A peripheral IV was started in the Left antecubital site with a Angio cath: 18 gauge., Site assessment: Clean,Dry and Intact, Site disposition Discontinued RADIOLOGY DEPARTMENT: CT; Exam(s) Completed: Kidney SIGNED BY: Suziepaty Paiz Jones Ct November 23, 2017 2:[address] KIDNEY WO/W Observed: 11/23/2017 Status: F Source: [place] IVCON 12:13 PM [facility] REPOSITORY * * *Final Report* * * DATE OF EXAM: Nov 23 2017 12:13PM [facility] [id number] - CT KIDNEY WO/W IVCON / PROCEDURE REASON: Malignant neoplasm of right kidney, except renal pelvis * * * * Physician Interpretation * * * * HISTORY: Solid right renal mass. TECHNIQUE: Contrast 1: [address] Ionizing Radiation: CT Dose Length Product (DLP): 2095 mG*y cm CT Dose Reduction Employed: Automated exposure control (AEC) RESULTS: Three-phase scans through the abdomen were performed including precontrast, arterial phase and portal venous phase imaging . Comparison is made with 11/23/2016. 3.5 x 2.5 cm right lung base nodule has increased in size from more remote CT scans of 05/24/2016. It is stable, however, from 07/25/2017. Diffuse fatty infiltration of the liver is seen. No developing focal hepatic or splenic abnormality is noted. Fatty left adrenal lesion is benign and stable. Adrenal glands are otherwise normal. Pancreas appears unremarkable. The lateral solid right renal lesion has increased in size and now measures 2 x 2.2 cm. No additional solid or enhancing renal mass. No gross obstructive uropathy. No ascites or lymphadenopathy within the abdomen. Diverticulosis of the colon is seen. Grossly stable appearance of the infrarenal abdominal aortic aneurysm. 4.7 x 4.2 cm in AP and transverse dimensions. Iliac artery ectasia is stable. IMPRESSION: Increase in the size of the right lung base nodule, when compared with more remote studies. Further slight increase in size of the enhancing solid right renal mass. No additional suspicious mass or adenopathy within the visualized abdomen. Food And Beverage Service Manager: PENNY Transcribe Date/Time: Nov 23 2017 4:41P Dictated by : HORTENSIA FLORES MD This examination was interpreted and the report reviewed and electronically signed by: HORTENSIA FLORES MD on Nov 23 2017 4:53PM EST [id number] CREATININE Collected: 11/22/2017 Status: F Source: [place] 9:05 AM [facility] REPOSITORY TYPE CODE TESTS RESULT OUT OF REFERENCE UNITS RANGE LAB CRET 0.73-1.22 mg/dL High Creatinine 1.26 LAB GFRAA eGFR- >60 Amer. LAB GFRNAA . eGFR-All Other Races 55 Result Comment: eGFR (Estimated GFR) Units of measure: mL/min/1.73 meters squared eGFR is derived from the reexpressed MDRD Study equation using the following parameters: serum creatinine, age, gender and race. The creatinine assay has been calibrated to be traceable to IDMS. An eGFR <60 mL/min/1.73m2 for >3 months is consistent with chronic kidney disease. Refer to KDOQI guidelines for clinical interpretation. In patients with unstable renal function, e.g. those with acute kidney injury, the eGFR may not accurately reflect actual GFR. Performed By: #### CRET1 #### [facility] [employer] [id number] [place] [id number] CNOV Observed: 08/11/2017 Status: COMPLETED Source: [place] 11:00 AM [facility] REPOSITORY Office Visit (FAMPWS) PACO WHITNEY ([id number]) 1935 M Date Time Provider Department 08/11/17 11:00 AM CLARICE RYDER FAMPWS During your visit today, we recorded the following information about you: Pulse Respiration Blood pressure Weight 72/minute 16/minute 110/76 102.1 kg Clarice Ryder MD 08/11/2017 11:46 AM Signed Chief Complaint Patient presents with: F/U 6 Month: HTN and Lipid HPI Paco Rocha Whitney is a 82 year old male who presents here today for a 6 mo f/u. Hypertension - Denies checking BP at home, but overall usually normal. Denies any chest pain. Admits to sob due to COPD and dizziness occasionally. Currently taking Altace 10 mg 1 tab po bid. Feels that he mostly worries about AAA, will have CT coming up in the Spring. COPD - Follows with Dr. Rowell and had recent CT done of his lung to mass. Currently taking Symbicort 2 puffs bid and intermittent use of rescue inhaler. States that he rarely ever uses nebulizer. Prostate/Kidney - Follows with Jil Henriquez and will have CT of his Kidney in November. Also taking Flomax 0.4 mg once daily, doing well. Lipids - States that he eats whatever he wants, he's 82 years old. Currently taking Lofibra 160 mg once daily. Pain - PAD worse when weather is warmer. Currently taking Gabapentin 100 mg 1 tab po TID. Notes that his arthritis is bad, worse with more activity, but manages. Uses cane to get around. GERD - Uses Protonix 40 mg once daily and seems to work well. Past medical history, appointments, medications, allergies reviewed. 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 Romeo - REMOVAL GALLBLADDER 2006 Cholecystectomy - REMOVAL OF TONSILS,ANDlt;14 Y/O Tonsillectomy - REPAIR,DETACH RETINA,PHOTOCOAG 2003 Laser repair retinal detach, right eye - TOTAL KNEE REPLACEMENT 2002 Knee replacement, total, left - VASECTOMY 1964 Family History FAMILY HISTORY Problem Relation Age of Onset - Hypertension Mother - Parkinsons disease [OTHER] Mother - Heart Father - Heart Brother Heart surgery - Cancer Brother of liver. - Diabetes Brother Patient Allergies ALLERGIES Allergen Reactions - Demerol [Meperidine* Mental Status Change - M[place]nolot] [Other] Other: See Comments Rhabdomyolysis. - Lopid [Gemfibrozil] Other: See Comments Myalgia. Current Medications Current Outpatient Prescriptions on File Prior to Visit: gabapentin (NEURONTIN) 100 mg capsule Take 1 capsule by mouth three times daily. Fenofibrate (LOFIBRA) 160 mg tablet Take 1 tablet by mouth once daily. ramipril (ALTACE) 10 mg capsule Take 1 capsule by mouth twice daily. clopidogrel (PLAVIX) 75 mg tablet Take 1 tablet by mouth once daily. pantoprazole DR (PROTONIX) 40 mg tablet Take 1 tablet by mouth daily before breakfast. Take on empty stomach, 1/2 hr before meal. tamsulosin ER (FLOMAX) 0.4 mg cp24 TAKE ONE CAPSULE BY MOUTH ONCE DAILY AT BEDTIME hydrocortisone (ANUSOL-HC) 2.5 % rectal cream Apply to affected area 3-4 times daily as needed meclizine (ANTIVERT) 25 mg tab Take 1 tablet by mouth every 6 hours as needed. FOR DIZZINESS albuterol HFA (PROVENTIL HFA, VENTOLIN HFA) 90 mcg/actuation inhaler Inhale 1-2 Puffs as instructed four times daily as needed. FOR WHEEZING AND SHORTNESS OF BREATH. clotrimazole-betamethasone (LOTRISONE) cream Apply 1 application to affected area twice daily. Chlorpheniramine-HYDROcodone (TUSSIONEX PENNKINETIC ER) 10- 8 mg/5 mL suspension Take 5 mL by mouth twice daily. kfpetdsy-aeczevldo-azgwayvkjboprm (CORTISPORIN) 3.5-10,000-1 mg/mL-unit/mL-% otic suspension Use 4 Drops in the ears four times daily. x 1 week ipratropium 0.02 % nebulizer solution Use via nebulizer. 1 nebule 3 times a day as needed. albuterol 2.5 mg /3 mL (0.083 %) nebulizer solution Use 3 mL via nebulizer three times daily as needed. OVER 5-15 MINUTES. FOR WHEEZING AND SHORTNESS OF BREATH. CHOLECALCIFEROL (VITAMIN D3) 1,000 UNIT CAP take 6 tablets daily budesonide-formoterol (SYMBICORT) 80-4.5 mcg/actuation inhaler Inhale 2 Puffs as instructed twice daily. Rinse mouth after use. iv contrast (radiology procedure) CT kidney wow Inject, intravenously, once for 1 dose.No IV access, insert saline lock prior to the beginning of sedation, infusion, injection of imaging exam. Discontinue saline lock post exam. If Pt. has a central line or IVAD, may access for administration according to line specific nursing protocol. Once exam is complete flush line and de-access according to line specific nursing protocol in the CT contrast administration guidelines link. No current facility-administered medications on file prior to visit. 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 Lungs: Lungs clear to auscultation. No wheezing, rhonchi, rales. Heart: RRR without murmur, gallop, or rubs. No ectopy. Abdomen: Abdomen soft, tender in the epigastric area. Bowel sounds normal. No masses, organomegaly. Health Maintenance List DIABETES SCREEN due on 07/26/2020 TETANUS due on 02/08/2022 ADULT PREVNAR-13 Completed INFLUENZA Completed PNEUMOVAX AGE 65 AND OVER WITH 5YR LOOKBACK Completed Data reviewed Appointment on 07/26/2017 Protein, Total Value: 7.2(g/dL) Date: 07/26/2017 Albumin Value: 4.4(g/dL) Date: 07/26/2017 Calcium Value: 9.8(mg/dL) Date: 07/26/2017 Bilirubin, Total Value: 0.8(mg/dL) Date: 07/26/2017 Alkaline Phosphatase Value: 41(U/L) Date: 07/26/2017 AST Value: 29(U/L) Date: 07/26/2017 Glucose Value: 101(mg/dL)* Date: 07/26/2017 BUN Value: 25(mg/dL)* Date: 07/26/2017 Creatinine Value: 1.29(mg/dL)* Date: 07/26/2017 Sodium Value: 139(mmol/L) Date: 07/26/2017 Potassium Value: 4.6(mmol/L) Date: 07/26/2017 Chloride Value: 101(mmol/L) Date: 07/26/2017 CO2 Value: 27(mmol/L) Date: 07/26/2017 Anion Gap Value: 11(mmol/L) Date: 07/26/2017 ALT Value: 34(U/L) Date: 07/26/2017 eGFR- Value: ANDgt;60 Date: 07/26/2017 eGFR-All Other Races Value: 54(.) Date: 07/26/2017 Triglyceride Value: 372(mg/dL)* Date: 07/26/2017 Cholesterol, Total Value: 194(mg/dL) Date: 07/26/2017 HDL Cholesterol Value: 29(mg/dL)* Date: 07/26/2017 VLDL Cholesterol Value: 74(mg/dL)* Date: 07/26/2017 LDL Cholesterol Value: 91(mg/dL) Date: 07/26/2017 Fasting Time Value: 11(hrs) Date: 07/26/2017 TC:HDL Ratio Value: 6.69* Date: 07/26/2017 LDL:HDL Ratio Value: 3.14 Date: 07/26/2017 Non HDL Cholesterol Value: 165(mg/dL)* Date: 07/26/2017 ASSESSMENT/PLAN: 1. Essential hypertension, benign - ICD9: 401.1, ICD10: I10 (primary diagnosis) - good control - Continue current medication(s) - Goal of BP ANDlt;140/90 2. Hyperlipidemia, unspecified hyperlipidemia type - ICD9: 272.4, ICD10: E78.5 - good control - Continue current medication. 3. Other osteoarthritis of spine, lumbar region - ICD9: 721.3, ICD10: M47.896 4. GERD without esophagitis - ICD9: 530.81, ICD10: K21.9 Continue current medications. 5. COPD with exacerbation (HCC) - ICD9: 491.21, ICD10: J44.1 Follow with Pulm 6. Hemorrhoids, unspecified hemorrhoid type - ICD9: 455.6, ICD10: K64.9 - HYDROCORTISONE 2.5 % TOPICAL CREAM WITH PERINEAL APPLICATOR 7. Secondary infection of skin - ICD9: 686.8, ICD10: L08.89 - MUPIROCIN 2 % TOPICAL OINTMENT 8. Enlarged prostate - ICD9: 600.00, ICD10: N40.0 9. AAA Scheduled for repeat CT in November Follow up in 6 months Clarice Ryder MD The documentation for this note was completed by Korin Calixto Ma acting as scribe for Clarice Ryder MD. August 11, 2017 10:43 AM. Referring Provider: CLARICE RYDER [[id number]] Allergies As of Date: 08/11/2017 Noted Allergy Reaction DEMEROL (MEPERIDINE (PF)) 11/18/2016 1 - Mental Status Change [facility]] [Other] 09/08/2006 14 - Other: See Comments Comments: Rhabdomyolysis. LOPID (GEMFIBROZIL) 07/14/2006 14 - Other: See Comments Comments: Myalgia. Date Reviewed: 08/11/2017 Reviewed by: Korin Calixto Ma - Fully Assessed Reason for Visit: F/U 6 Month [444] Cmt: HTN and Lipid Primary Visit Diagnosis:Essential hypertension, benign [I10] Other Visit Diagnoses:Hyperlipidemia, unspecified hyperlipidemia type [E78.5] Other osteoarthritis of spine, lumbar region [M47.896] GERD without esophagitis [K21.9] COPD with exacerbation (HCC) [J44.1] Hemorrhoids, unspecified hemorrhoid type [K64.9] Secondary infection of skin [L08.89] Enlarged prostate [N40.0] Order(s):hydrocortisone (ANUSOL-HC) 2.5 % rectal creamApply to affected area 3-4 times daily as neededDisp: 30 gRfl: [address] (PROTONIX) 40 mg tabletTake 1 tablet by mouth daily before breakfast. Take on empty stomach, 1/2 hr before meal.Disp: 90 tabletRfl: 3 mupirocin (BACTROBAN) 2 % ointmentApply 1 application to affected area three times daily for 7 days.Disp: 22 gRfl: 0 COMP METABOLIC PANEL [SQCMP] Order #: [id number] FUTURE LIPID PANEL BASIC [SQLIPB] Order #: [id number] FUTURE Prescriptions as of 08/11/2017 Sig: GABAPENTIN 100 MG CAPSULE Take 1 capsule by mouth three* FENOFIBRATE 160 MG TABLET Take 1 tablet by mouth once d* RAMIPRIL 10 MG CAPSULE Take 1 capsule by mouth twice* CLOPIDOGREL 75 MG TABLET Take 1 tablet by mouth once d* TAMSULOSIN 0.4 MG CAPSULE TAKE ONE CAPSULE BY MOUTH ONC* MECLIZINE 25 MG TABLET Take 1 tablet by mouth every * ALBUTEROL SULFATE HFA 90 MCG/* Inhale 1-2 Puffs as instructe* CLOTRIMAZOLE-BETAMETHASONE 1 * Apply 1 application to affect* HYDROCODONE 10 MG-CHLORPHENIR* Take 5 mL by mouth twice leyla* DHJDVMWN-NHGAKRRZQ-DNCZSNHOX * Use 4 Drops in the ears four * IPRATROPIUM BROMIDE 0.02 % SO* Use via nebulizer. 1 nebule * ALBUTEROL SULFATE 2.5 MG/3 ML* Use 3 mL via nebulizer three * * CHOLECALCIFEROL (VITAMIN D3) * take 6 tablets daily HYDROCORTISONE 2.5 % TOPICAL * Apply to affected area 3-4 ti* PANTOPRAZOLE 40 MG TABLET,DEL* Take 1 tablet by mouth daily * MUPIROCIN 2 % TOPICAL OINTMENT Apply 1 application to affect* BUDESONIDE-FORMOTEROL HFA 80 * Inhale 2 Puffs as instructed * IV CONTRAST (RADIOLOGY PROCED* CT kidney wow Inject, intrave* Problem List As Of Date 08/11/2017 Noted Resolved COPD with exacerbation (HCC) [J44.1] Asthma [J45.909] BENIGN HYPERTENSION [I10] Hyperlipidemia [E78.5] Vitamin D Deficiency [E55.9] INVALID FOR* 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 Take on empty stomach, 1/2 hr before meal. MUPIROCIN 2 % TOPICAL OINTMENT 22 g 0 08/11/2017 08/18/2017 Route: TOPICAL Sig: Apply 1 application to affected area three times daily for 7 days. Medications Discontinued During This Encounter metroNIDAZOLE (FLAGYL) 500 mg tablet 30 t* 0 05/16/2017 08/11/2017 Route: ORAL Sig: Take 1 tablet by mouth three times daily. Disc: Course of therapy completed hydrocortisone (ANUSOL-HC) 2.5 % rec* 30 g 2 06/28/2016 08/11/2017 Sig: Apply to affected area 3-4 times daily as needed Disc: Reason for discontinue is not on file. pantoprazole DR (PROTONIX) 40 mg tab* 90 t* 3 09/01/2016 08/11/2017 Route: ORAL Sig: Take 1 tablet by mouth daily before breakfast. Take on empty stomach, 1/2 hr before meal. Disc: Reason for discontinue is not on file. mupirocin (BACTROBAN) 2 % ointment 22 g 0 02/18/2016 08/11/2017 Route: TOPICAL Sig: Apply 1 application to affected area three times daily for 7 days. Disc: Reason for discontinue is not on file. Disposition: Return in about 6 months (around 02/08/2018). Follow-up and Disposition History Recorded Encounter Status:Closed by CLARICE RYDER MD on 08/11/17 PROGRESS Observed: 08/11/2017 Status: COMPLETED Source: [place] 10:43 AM [facility] [place] REPOSITORY HNO ID: [id number] Author: Clarice Ryder Service: (none) Author Type: Physician Type: Progress Notes Filed: 08/11/2017 11:46 AM Note Text: Chief Complaint Patient presents with: F/U 6 Month: HTN and Lipid HPI Paco Whitney is a 82 year old male who presents here today for a 6 mo f/u. Hypertension - Denies checking BP at home, but overall usually normal. Denies any chest pain. Admits to sob due to COPD and dizziness occasionally. Currently taking Altace 10 mg 1 tab po bid. Feels that he mostly worries about AAA, will have CT coming up in the Spring. COPD - Follows with Dr. Rowell and had recent CT done of his lung to mass. Currently taking Symbicort 2 puffs bid and intermittent use of rescue inhaler. States that he rarely ever uses nebulizer. Prostate/Kidney - Follows with Jil Henriquez and will have CT of his Kidney in November. Also taking Flomax 0.4 mg once daily, doing well. Lipids - States that he eats whatever he wants, he's 82 years old. Currently taking Lofibra 160 mg once daily. Pain - PAD worse when weather is warmer. Currently taking Gabapentin 100 mg 1 tab po TID. Notes that his arthritis is bad, worse with more activity, but manages. Uses cane to get around. GERD - Uses Protonix 40 mg once daily and seems to work well. Past medical history, appointments, medications, allergies reviewed. Previous Medical History PAST MEDICAL HISTORY Diagnosis Date - Chronic airway obstruction, not elsewhere classified - Diaphragmatic hernia without mention of obstruction or gangrene - Diverticulitis 12/16/2014 - Diverticulosis of colon with hemorrhage - Essential hypertension, benign - History of eye surgery 03/29/2011 Right eye - Other and unspecified hyperlipidemia - Rectal bleeding 12/16/2014 - Retinal detachment with retinal defect, unspecified RIGHT EYE, WITH LENSE - Rhabdomyolysis 2003 had as a result of [facility] - Unspecified asthma(493.90) - Unspecified cause of encephalitis, myelitis, 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 Romeo - REMOVAL GALLBLADDER 2006 Cholecystectomy - REMOVAL OF TONSILS,<12 Y/O Tonsillectomy - REPAIR,DETACH RETINA,PHOTOCOAG 2003 Laser repair retinal detach, right eye - TOTAL KNEE REPLACEMENT 2002 Knee replacement, total, left - VASECTOMY 1964 Family History FAMILY HISTORY Problem Relation Age of Onset - Hypertension Mother - Parkinsons disease [OTHER] Mother - Heart Father - Heart Brother Heart surgery - Cancer Brother of liver. - Diabetes Brother Patient Allergies ALLERGIES Allergen Reactions - Demerol [Meperidine* Mental Status Change - [facility]] [Other] Other: See Comments Rhabdomyolysis. - Lopid [Gemfibrozil] Other: See Comments Myalgia. Current Medications Current Outpatient Prescriptions on File Prior to Visit: gabapentin (NEURONTIN) 100 mg capsule Take 1 capsule by mouth three times daily. Fenofibrate (LOFIBRA) 160 mg tablet Take 1 tablet by mouth once daily. ramipril (ALTACE) 10 mg capsule Take 1 capsule by mouth twice daily. clopidogrel (PLAVIX) 75 mg tablet Take 1 tablet by mouth once daily. pantoprazole DR (PROTONIX) 40 mg tablet Take 1 tablet by mouth daily before breakfast. Take on empty stomach, 1/2 hr before meal. tamsulosin ER (FLOMAX) 0.4 mg cp24 TAKE ONE CAPSULE BY MOUTH ONCE DAILY AT BEDTIME hydrocortisone (ANUSOL-HC) 2.5 % rectal cream Apply to affected area 3-4 times daily as needed meclizine (ANTIVERT) 25 mg tab Take 1 tablet by mouth every 6 hours as needed. FOR DIZZINESS albuterol HFA (PROVENTIL HFA, VENTOLIN HFA) 90 mcg/actuation inhaler Inhale 1-2 Puffs as instructed four times daily as needed. FOR WHEEZING AND SHORTNESS OF BREATH. clotrimazole-betamethasone (LOTRISONE) cream Apply 1 application to affected area twice daily. Chlorpheniramine-HYDROcodone (TUSSIONEX PENNKINETIC ER) 10- 8 mg/5 mL suspension Take 5 mL by mouth twice daily. zvczqkef-dadbhncsk-hgdoeclcstvgga (CORTISPORIN) 3.5-10,000-1 mg/mL-unit/mL-% otic suspension Use 4 Drops in the ears four times daily. x 1 week ipratropium 0.02 % nebulizer solution Use via nebulizer. 1 nebule 3 times a day as needed. albuterol 2.5 mg /3 mL (0.083 %) nebulizer solution Use 3 mL via nebulizer three times daily as needed. OVER 5-15 MINUTES. FOR WHEEZING AND SHORTNESS OF BREATH. CHOLECALCIFEROL (VITAMIN D3) 1,000 UNIT CAP take 6 tablets daily budesonide-formoterol (SYMBICORT) 80-4.5 mcg/actuation inhaler Inhale 2 Puffs as instructed twice daily. Rinse mouth after use. iv contrast (radiology procedure) CT kidney wow Inject, intravenously, once for 1 dose.No IV access, insert saline lock prior to the beginning of sedation, infusion, injection of imaging exam. Discontinue saline lock post exam. If Pt. has a central line or IVAD, may access for administration according to line specific nursing protocol. Once exam is complete flush line and de-access according to line specific nursing protocol in the CT contrast administration guidelines link. No current facility-administered medications on file prior to visit. 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 Lungs: Lungs clear to auscultation. No wheezing, rhonchi, rales. Heart: RRR without murmur, gallop, or rubs. No ectopy. Abdomen: Abdomen soft, tender in the epigastric area. Bowel sounds normal. No masses, organomegaly. Health Maintenance List DIABETES SCREEN due on 07/26/2020 TETANUS due on 02/08/2022 ADULT PREVNAR-13 Completed INFLUENZA Completed PNEUMOVAX AGE 65 AND OVER WITH 5YR LOOKBACK Completed Data reviewed Appointment on 07/26/2017 Protein, Total Value: 7.2(g/dL) Date: 07/26/2017 Albumin Value: 4.4(g/dL) Date: 07/26/2017 Calcium Value: 9.8(mg/dL) Date: 07/26/2017 Bilirubin, Total Value: 0.8(mg/dL) Date: 07/26/2017 Alkaline Phosphatase Value: 41(U/L) Date: 07/26/2017 AST Value: 29(U/L) Date: 07/26/2017 Glucose Value: 101(mg/dL)* Date: 07/26/2017 BUN Value: 25(mg/dL)* Date: 07/26/2017 Creatinine Value: 1.29(mg/dL)* Date: 07/26/2017 Sodium Value: 139(mmol/L) Date: 07/26/2017 Potassium Value: 4.6(mmol/L) Date: 07/26/2017 Chloride Value: 101(mmol/L) Date: 07/26/2017 CO2 Value: 27(mmol/L) Date: 07/26/2017 Anion Gap Value: 11(mmol/L) Date: 07/26/2017 ALT Value: 34(U/L) Date: 07/26/2017 eGFR- Value: >60 Date: 07/26/2017 eGFR-All Other Races Value: 54(.) Date: 07/26/2017 Triglyceride Value: 372(mg/dL)* Date: 07/26/2017 Cholesterol, Total Value: 194(mg/dL) Date: 07/26/2017 HDL Cholesterol Value: 29(mg/dL)* Date: 07/26/2017 VLDL Cholesterol Value: 74(mg/dL)* Date: 07/26/2017 LDL Cholesterol Value: 91(mg/dL) Date: 07/26/2017 Fasting Time Value: 11(hrs) Date: 07/26/2017 TC:HDL Ratio Value: 6.69* Date: 07/26/2017 LDL:HDL Ratio Value: 3.14 Date: 07/26/2017 Non HDL Cholesterol Value: 165(mg/dL)* Date: 07/26/2017 ASSESSMENT/PLAN: 1. Essential hypertension, benign - ICD9: 401.1, ICD10: I10 (primary diagnosis) - good control - Continue current medication(s) - Goal of BP <140/90 2. Hyperlipidemia, unspecified hyperlipidemia type - ICD9: 272.4, ICD10: E78.5 - good control - Continue current medication. 3. Other osteoarthritis of spine, lumbar region - ICD9: 721.3, ICD10: M47.896 4. GERD without esophagitis - ICD9: 530.81, ICD10: K21.9 Continue current medications. 5. COPD with exacerbation (HCC) - ICD9: 491.21, ICD10: J44.1 Follow with Pulm 6. Hemorrhoids, unspecified hemorrhoid type - ICD9: 455.6, ICD10: K64.9 - HYDROCORTISONE 2.5 % TOPICAL CREAM WITH PERINEAL APPLICATOR 7. Secondary infection of skin - ICD9: 686.8, ICD10: L08.89 - MUPIROCIN 2 % TOPICAL OINTMENT 8. Enlarged prostate - ICD9: 600.00, ICD10: N40.0 9. AAA Scheduled for repeat CT in November Follow up in 6 months Clarice Ryder MD The documentation for this note was completed by Korin Calixto Ma acting as scribe for Clarice Ryder MD. August 11, 2017 10:43 AM. ALLERGIES ALLERGIES DATE TYPE / CODE NAME / CODE REACTION SEVERITY SOURCE Drug cerivastatin Other [place] 8 Allergy/339165268( sodium/[id number] Community SNOMED CT) (RXNORM) Hospital Repository Drug gemfibrozil/F0060 Other Unknown Jose 8 Allergy/055816063( 58076(RXNORM) [facility] SN[facility]) Hospital Repository Drug meperidine/Y87577 Other Unknown [place] 8 Allergy/177795834( 4620(RXNORM) [facility] Hospital Repository DRUG/751141531(SNO MEPERIDINE (PF) Mental Chg [facility] [address]) [facility] [place] Repository Miscellaneous OTHER OTHER: SEE C [facility] 7 Allergy/724792807( [facility] SNOMED CT) [place] Rep[place] DRUG GEMFIBROZIL OTHER: SEE C [place] INGREDI/765480444( [facility] SNOMED CT) [place] Rep[place] Drug DEMEROL/85205228( Moderate Anoop Pomerene Allergy/080111190( RXNORM) ([facility]) Modifier) [facility] (Qualifier Repository Value) ENCOUNTERS ENCOUNTERS ADMIT/DISCHARGE ACCOUNT ADMITTING ENCOUNTER LOCATION SOURCE NUMBER CLASS 08/01/2018/08/03/19 [id number] Ambulatory [address] Repository 08/01/2018/08/03/19 [id number] Ambulatory [address] Repository 07/04/2018/07/06/20 [id number] Ambulatory [address] Repository 06/29/2018/06/30/20 [id number] Sementi, Inpatient Jose Garcia 18 Kathy Encounter [facility] ing:US0Rjgk: Repository JN106Vqj: 1 06/29/2018 [id number] Sementi, Ambulatory BMSBuilding:B Jose Chavez MS.[facility] Repository 06/28/2018 [id number] Sementi, Ambulatory BMSBuilding:B Jose Chavez MS.[facility] Repository 06/28/2018 [id number] Sementi, Ambulatory BMSBuilding:B Jose Cahvez MS.[facility] Repository 06/26/2018/06/27/20 [id number] Ambulatory [address] Repository 06/26/2018/06/26/20 [id number] Ambulatory [address] Repository 05/22/2018/05/24/20 [id number] Ambulatory [address] Repository 02/12/2018/02/13/20 [id number] EVELYN MADDEN Emergency BuildinR Anoop Rivera 18 DO oom: ERBed: F [facility] Repository 02/09/2018/02/14/20 [id number] Ambulatory [address] Repository 02/03/2018/02/04/20 [id number] Ambulatory [address] Repository 12/29/2017/12/31/19 [id number] Ambulatory [address] Repository 11/25/2017/11/29/19 [id number] Ambulatory [address] Repository 11/23/2017/11/24/19 [id number] Ambulatory [address] Repository 11/22/2017/11/23/19 [id number] Ambulatory [address] Repository 08/11/2017/08/11/19 [id number] Ambulatory [address] Repository PAYERS PAYERS ENCOUNTER GUARANTOR PAYER SUBSCRIBER SOURCE 06/29/2018 PACO R Primary PACO Garcia [id number] SR Insurance:MEDICARE PART BAKERDOB: [address] BPolicy Number: [id number] [address]Bgg: [id number] Repository Date:2018-06-28 () 06/29/2018 Secondary PACO Rgoster Insurance:[employer] [facility]: [facility] [id number] Hospital Number: Repository [id number] Date:[id number] [address]YN: 06/29/2018 Tertiary Insurance:SELF NOT GIVENUNK Jose PAY INSURANCEPoly Community Number: Effective Hospital Date:2018-06-28 Repository 06/29/2018 PACO R Primary PACO Garcia [id number] SR Insurance:MEDICARE PART CLERMONTDOB: [address] Number: [id number] [facility] [address]Ems: [id number] Repository Date:2018-06-28 () 06/29/2018 Secondary PACO Garcia Insurance:[employer]ED LIFE BAKERDOB: [facility] [id number] Hospital Number: Repository [id number] Date:[id number], [place] [address]HL: 06/29/2018 Tertiary Insurance:SELF NOT GIVENUNK Jose PAY INSURANCEPolicy Community Number: Effective Hospital Date:2018-06-29 Repository 06/28/2018 PACO R Primary PACO R Jose [id number] SR Insurance:MEDICARE PART BAKERDOB: [address] BPolicy Number: [id number] [address]Flq: [id number] Repository Date:2018-06-28 () 06/28/2018 Secondary PACO R Jose Insurance:[employer] [facility]: [facility] [id number] Hospital Number: Repository [id number] Date:[id number], [place] [address]FT: 06/28/2018 Tertiary Insurance:SELF NOT GIVENUNK [place] PAY INSURANCEPolicy Community Number: Effective Hospital Date:2018-06-28 Repository 06/28/2018 PACO R Primary PACO R Jose [id number] SR Insurance:MEDICARE PART BAKERDOB: [address] BPolicy Number: [id number] [facility] [address]Hwp: [id number] Repository Date:2018-06-28 () 06/28/2018 Secondary PACO R [place] Insurance:[employer] [facility]: [facility] [id number] Hospital Number: Repository [id number] Date:[id number], [place] [address]IY: 06/28/2018 Tertiary Insurance:SELF NOT GIVENUNK [place] PAY INSURANCEPolicy Community Number: Effective Hospital Date:2018-06-28 Repository 02/12/2018 PACO R Primary PACO R Anoop Jose BAKERDOB: Insurance:LIABILITY BAKERDOB: [facility] [id number] [facility] [id number] RT Number: [id number] [address]: Date:Plan Name:[facility] [id number] () 02/12/2018 Secondary PACO Rivera Insurance:MEDICARE CLERMONTDOB: [facility] [id number] Hospital Number: 9 ST RT Repository [id number], Date:Plan Name:[facility] [id number] 02/12/2018 Tertiary PACO Rivera Insurance:[facility] BAKERDOB: [facility] [id number] Hospital Number: [address] Repository [id number], Date:Plan Name:[facility] [id number]
== END 2018-06-30 09:55 | disposition home or self-care (01) | DRG 392 ==
LOC: ED 16:30 → MS2 17:24
PROVIDERS: Nurse Practitioner Family; Admitting Provider Internal Medicine; Emergency Provider Emergency Medicine; Family Provider Family Medicine; PCP Family Medicine; Visit Provider Internal Medicine
DX: A08.4 Viral intestinal infection, unspecified (principal); N28.89 Other specified disorders of kidney and ureter; I71.4 Abdominal aortic aneurysm, without rupture; J44.9 Chronic obstructive pulmonary disease, unspecified; G62.9 Polyneuropathy, unspecified; N40.0 Benign prostatic hyperplasia without lower urinary tract symptoms; K21.9 Gastro-esophageal reflux disease without esophagitis; I10 Essential (primary) hypertension; E78.5 Hyperlipidemia, unspecified; Z86.73 Personal history of transient ischemic attack (TIA), and cerebral infarction without residual deficits; Z87.19 Personal history of other diseases of the digestive system; Z87.891 Personal history of nicotine dependence; Z79.02 Long term (current) use of antithrombotics/antiplatelets; Z79.899 Other long term (current) drug therapy
CPT/HCPCS: 36415; 74022; 74177; 80048; 80076; 81001; 83630; 83690; 84484; 85025; 87493; 87506; 93005; 94640; 97802; 99284; J7030; J7040; Q9967; A4216; J2405

== ENCOUNTER 2019-04-08 21:50 | Inpatient (IN) | payer MEDICARE, OTHER, SELFPAY ==
[2019-04-08 21:51] VITALS: BP 124/93; PULSE 96; RESP 16; TEMP 36.8; O2SAT 96; BMI 31.8
--- NOTE | 2019-04-08 22:08 | ED.VIS.GEN ---
History of Present Illness Chief Complaint: GI Bleed Narrative: Patient is an 83-year-old male who presents with bright red blood per rectum. He does have a prior history of GI bleed. He has a history of extensive diverticulosis. He initially had bright red blood per rectum with pea-sized clots this morning. He was then okay most of the day. However a couple of hours ago he developed recurrent bleeding with 2 or 3 episodes of vero bright red blood per rectum. No melanotic stools. He complains of mild lower abdominal discomfort but is not having really any pain. He otherwise denies recent illness. No fever chest pain shortness of breath nausea vomiting diarrhea. He is on Plavix for history of TIA but no other anticoagulation. Past Medical History - Allergies and Home Meds Allergies/Adverse Reactions: Allergies cerivastatin sodium [From Baycol] Allergy (Severe, Verified 04/08/19 21:52) Other KIDNEY FAILURE gemfibrozil [From Lopid] Adverse Reaction (Verified 04/08/19 21:52) Other meperidine [From Demerol] Adverse Reaction (Verified 04/08/19 21:52) Other Primary Care Physician: Kameron Murillo MD [Primary Care Provider] - Past Medical History: - - TIA, hypertension, diverticulosis Surgical History: cholecystectomy, tonsillectomy, - - .Right eye surgery, Left knee surgery, lung biopsy, bile duct stone removal. Smoking Status: Former smoker - Family History Maternal Family History: Reports: Hypertension, - - Parkinson's Disease Paternal Family History: Reports: Heart Disease Review of Systems All systems negative except as indicated General: Denies: Fever Cardiovascular: Denies: Chest pain Respiratory: Denies: Dyspnea Gastrointestinal: Reports: - - Bright red blood per rectum with clots. Denies: Nausea, Vomiting, Diarrhea Skin: Denies: Rash Neurological: Denies: Headache Physical Exam Vital Signs/Narrative: Vital Signs Temp Pulse Resp BP Pulse Ox 04/08/19 21:51 98.2 F 96 16 124/93 H 96 Inital Vital Signs reviewed: Yes General: Well nourished, Well developed Head: Normocephalic Eyes: EOMI ENT: Moist mucous membranes Neck: Supple Cardiovascular: Regular rate, Regular rhythm Respiratory: No distress Abdomen: Soft, Nontender, Nondistended Rectal: - - Rectal exam shows small amount of bright red blood Skin: Normal color Neurological: Alert Psychological: Normal affect Diagnostic/Tx/Re-eval Laboratory Results 04/08/19 04/08/19 04/08/19 22:34 22:34 22:34 WBC 8.0 RBC 4.68 Hgb 14.7 Hct 44.6 MCV 95.3 H MCH 31.4 MCHC 33.0 RDW Std Deviation 47.8 H RDW Coeff of Nohemi 13.5 Plt Count 188 MPV 9.6 Immature Gran % (Auto) 0.300 Neut % (Auto) 62.5 Lymph % (Auto) 23.0 [place] % (Auto) 11.4 H Eos % (Auto) 1.9 Baso % (Auto) 0.9 Absolute Neuts (auto) 5.0 Absolute Lymphs (auto) 1.84 Nucleated RBC % 0 PT 14.2 INR 1.1 Sodium 143 Potassium 4.3 Chloride 112 H Carbon Dioxide 25.0 Anion Gap 6 BUN 26 H Creatinine 1.38 H Estim Creat Clear Calc 41.98 Est GFR (MDRD) Af Amer 64 Est GFR (MDRD) Non-Af 53 L BUN/Creatinine Ratio 18.8 Glucose 118 H Calcium 9.2 Total Bilirubin 0.40 AST 21 ALT 30 Alkaline Phosphatase 49 Total Protein 6.6 Albumin 3.5 Globulin 3.1 Albumin/Globulin Ratio 1.1 - Medical Decision Making Laboratory studies as above essentially unremarkable. Hemoglobin is 14.7. However patient has had grossly bloody bowel movements here. He has remained hemodynamically stable. I suspect this is a diverticular bleed. At this point I do feel he needs admitted for monitoring of his hemodynamic status, serial hemoglobins. Patient will be discussed with the hospitalist and admitted. ED Disposition - Plan for ED Patient: Disposition: Acute Care Hospital [facility] Diagnosis: Lower GI bleed Referrals: Kameron Murillo MD [Primary Care Provider] -
[2019-04-08 22:51] LABS: Absolute Lymphocyte Count 1.84 X10^3/uL (0.83-4.51); Basophil# 0.07 X10^3/uL; Basophil% 0.9 % (0-1); Eosinophil# 0.15 X10^3/uL; Eosinophils% 1.9 % (0-5); Hematocrit 44.6 % (40-54); Hemoglobin 14.7 g/dL (13.0-16.5); Lymphocyte # 1.84 X10^3/ul (4.0); Mean Corpuscular Hgb 31.4 pg (27.0-32.0); Mean Corpuscular Volume 95.3 fL (80-94); Mean Platelet Vol. 9.6 fl (6.2-12.0); Monocyte# 0.91 X10^3/uL; Monocyte% 11.4 % (0-10); NRBC Flagged by Analyzer 0 % (0-5); Neutrophil # 5.01 X10^3/uL (2.7-7.7); Neutrophil % 62.5 % (47-70); Platelet Count 188 K/mm3 (150-450); RBC Distribution Width CV 13.5 % (11.6-14.6); RBC Distribution Width SD 47.8 fl (35.1-43.9); Red Blood Count 4.68 M/mm3 (4.6-6.2)
[2019-04-08 22:55] LABS: International Normalized Ratio 1.1; Prothrombin Time (Protime)PT. 14.2 SECONDS (11.7-14.9)
[2019-04-08 23:06] LABS: ALB/GLOB Ratio 1.1 RATIO (0.9-2.4); AST(SGOT) 21 U/L (15-37); Alanine Aminotransfer ALT/SGPT 30 U/L (16-61); Albumin, Serum 3.5 g/dL (3.2-5.0); Alkaline Phosphatase 49 U/L (45-117); Anion Gap 6 (5-15); BUN 26 mg/dL (7-18); BUN/Creat Ratio 18.8 RATIO (10-20); Calcium,Total 9.2 mg/dL (8.5-10.1); Chloride 112 mmol/L (98-107); Creatinine, Serum 1.38 mg/dL (0.70-1.30); EST Glomerular Filtration Rate 53 mL/min (>60); Est Glom Filt Rate - Afr Amer 64 mL/min (>60); Estimated Creatinine Clearance 41.98 ml/min; Globulin 3.1 g/dL (2.2-4.2); Glucose 118 mg/dL (74-106); Potassium 4.3 mmol/L (3.5-5.1); Protein, Total 6.6 g/dL (6.4-8.2); Sodium Level 143 mmol/L (136-145)
--- NOTE | 2019-04-08 23:29 | HP.PCM_ITS ---
Problem List (1) Peripheral neuropathy Status: Chronic (2) BPH (benign prostatic hyperplasia) Status: Chronic (3) HTN (hypertension), benign Status: Chronic (4) Chronic obstructive lung disease Status: Chronic (5) Hx-TIA (transient ischemic attack) Status: Chronic (6) Diverticular hemorrhage Status: Suspected History of Present Illness Date of Admission: 04/08/19 Chief Complaint: Bright red blood per rectum The patient is a 83 year old M with a significant history of COPD; TIA; peripheral neuropathy; diverticular bleed and GERD who presented to the emergency department with progressively worsening bright red blood per rectum. He reports multiple episodes of bright red blood per rectum. Also he has noticed blood clots in his stool. He brought extensive napkins with blood that he had passed from his rectum. Emergency department doctor also found bright red blood per rectum on his physical exams. Further, nurses at the emergency department also reported bloody stool. He reports dull abdominal pain. He denies any nausea or vomiting. Patient has had previous colonoscopy with Dr. Romeo, General Surgeon. Past Medical History Past Medical History (Chronic Problems): Chronic Problems Peripheral neuropathy (Chronic) GERD (gastroesophageal reflux disease) (Chronic) BPH (benign prostatic hyperplasia) (Chronic) HTN (hypertension), benign (Chronic) Chronic obstructive lung disease (Chronic) Dyslipidemia (Chronic) Hx-TIA (transient ischemic attack) (Chronic) History of gastrointestinal bleeding (Chronic) Allergies cerivastatin sodium [From Baycol] Allergy (Severe, Verified 04/08/19 21:52) Other KIDNEY FAILURE gemfibrozil [From Lopid] Adverse Reaction (Verified 04/08/19 21:52) Other meperidine [From Demerol] Adverse Reaction (Verified 04/08/19 21:52) Other Home Medications: Ambulatory Orders Medication Instructions Recorded Albuterol Inhaler [Ventolin Hfa] 2 puff INHALATION Q4H PRN PRN 07/05/14 Clopidogrel Bisulfate [Plavix] 75 mg PO DAILY 07/05/14 Fenofibrate [Tricor] 160 mg PO DAILY 07/05/14 Ramipril [Altace] 10 mg PO DAILY 07/05/14 Pantoprazole Sodium [Protonix] 40 mg PO DAILY 08/21/14 Cholecalciferol (VIT D3) [Vitamin 3,000 unit PO BID 11/23/14 D3] Tamsulosin HCl [Flomax] 0.4 mg PO QHS 11/23/14 Ipratropium [Atrovent Aerosols] 0.5 mg INHALATION Q8H PRN PRN 11/05/16 Budesonide/Formoterol 160/4.5 2 puff INHALATION BID 06/28/18 [Symbicort 160/4.5 Mcg Inhaler (SP)] Gabapentin [Neurontin] 100 mg PO TID 06/28/18 Loperamide [Imodium] 2 mg PO Q2H PRN PRN #5 capsule 06/30/18 Surgical History: cholecystectomy, tonsillectomy, - - .Right eye surgery, Left knee surgery, lung biopsy, bile duct stone removal. Psychiatric History: No pertinent psych hx Smoking Status: Former smoker - *Family History Maternal History Items: Hypertension, - - Parkinson's Disease Paternal History Items: Heart Disease Review of Systems Constitutional: Denies: Chills, Fever, Weight Change HEENT: Denies: Head Aches, Sinus Congestion, Sinus Drainage Cardiovascular: Denies: Chest Pain, Palpitations Respiratory: Reports: Shortness of Breath - chronic. Denies: Cough, Sputum production Gastrointestinal: Reports: Abdominal Pain, Hematochezia. Denies: Nausea, Vomiting Genitourinary: Denies: Dysuria Musculoskeletal: Denies: Joint Pain, Joint Tenderness Skin: Denies: Rash, Wounds Neurological: Denies: Numbness, Tingling, Focal weakness Psychiatric: Denies: Anxiety, Depression, Homicidal Ideations, Suicidal Ideations Hematologic/ Lymphatic: Denies: Easy Bruising, Easy Bleeding VTE Information - Inpt Only VTE Present on Admission: No VTE Mechan Device Prophylaxis: SCD's VTE Pharm Prophylaxis ordered?: No Patient Problems: Active and Suspected Problems Lower GI bleed (Acute) Diverticular hemorrhage (Suspected) - Physical Exam General: Alert, Oriented x3, Cooperative HEENT: Atraumatic, PERRLA, EOMI, Normocephalic Neck: Supple, No JVD, Negative Carotid Bruits Lungs: Clear to auscultation, Normal air movement Cardiovascular: Regular rate, Normal S1, Normal S2, - Abdomen: Bowel Sounds Present, Soft, Non Tender, - - Per Emergency department doctor bright red blood per rectum was noted; and no masses or hemorrhoids were noted. Extremities: No edema, Capillary Refill Less than 3 Seconds Skin: No rashes, No breakdown Musculoskeletal: No Tenderness to Palpation of Joints or Extremities Neurological: Cranial nerves II-XII grossly intact Psych/Mental Status: Normal Affect, Appropriate Vital Signs Temp Pulse Resp BP Pulse Ox 98.2 F 96 16 124/93 H 96 04/08/19 21:51 04/08/19 21:51 04/08/19 21:51 04/08/19 21:51 04/08/19 21:51 Oxygen Delivery Method Room Air Weight: 97.9 kg Body Mass Index (BMI) 31.8 Laboratory Tests Past 24 Hrs 04/08/19 04/08/19 04/08/19 22:34 22:34 22:34 WBC 8.0 RBC 4.68 Hgb 14.7 Hct 44.6 MCV 95.3 H MCH 31.4 MCHC 33.0 RDW Std Deviation 47.8 H RDW Coeff of Nohemi 13.5 Plt Count 188 MPV 9.6 Immature Gran % (Auto) 0.300 Neut % (Auto) 62.5 Lymph % (Auto) 23.0 [place] % (Auto) 11.4 H Eos % (Auto) 1.9 Baso % (Auto) 0.9 Absolute Neuts (auto) 5.0 Absolute Lymphs (auto) 1.84 Nucleated RBC % 0 PT 14.2 INR 1.1 Sodium 143 Potassium 4.3 Chloride 112 H Carbon Dioxide 25.0 Anion Gap 6 BUN 26 H Creatinine 1.38 H Estim Creat Clear Calc 41.98 Est GFR (MDRD) Af Amer 64 Est GFR (MDRD) Non-Af 53 L BUN/Creatinine Ratio 18.8 Glucose 118 H Calcium 9.2 Total Bilirubin 0.40 AST 21 ALT 30 Alkaline Phosphatase 49 Total Protein 6.6 Albumin 3.5 Globulin 3.1 Albumin/Globulin Ratio 1.1 Blood Type Antibody Screen 04/08/19 22:34 WBC RBC Hgb Hct MCV MCH MCHC RDW Std Deviation RDW Coeff of Nohemi Plt Count MPV Immature Gran % (Auto) Neut % (Auto) Lymph % (Auto) [place] % (Auto) Eos % (Auto) Baso % (Auto) Absolute Neuts (auto) Absolute Lymphs (auto) Nucleated RBC % PT INR Sodium Potassium Chloride Carbon Dioxide Anion Gap BUN Creatinine Estim Creat Clear Calc Est GFR (MDRD) Af Amer Est GFR (MDRD) Non-Af BUN/Creatinine Ratio Glucose Calcium Total Bilirubin AST ALT Alkaline Phosphatase Total Protein Albumin Globulin Albumin/Globulin Ratio Blood Type O NEGATIVE Antibody Screen NEGATIVE Assessment/Plan All Active Problems Lower GI bleed (Acute) The patient is a 83 year old M with a significant history of COPD; TIA; peripheral neuropathy; diverticular bleed and GERD who presented to the emergency department with progressively worsening bright red blood per rectum consistent with suspected GI bleed. Suspected Diverticular bleed Discussed with Dr. Smyth General Surgery. Recommendations were: Transfuse platelets to counteract Plavix; if patient continues to bleed consider tagged red bleed cell scan. If hemodynamic unstable consider transfer to outside Hospital for GI service. Dr. Smyth will follow patient while inpatient. Received IVF NSS 1L bolus at the ED. Will give additional NSS 500ml bolus and continue on NSS maintenance infusion at 100ml/hr Will keep npo Type and screen already ordered. Type and cross for 2 units of blood to be hold. Trend H&H Hold Plavix Hold home Plavix and FEDERICO inhibitor. COPD Stable On inhaled corticosteroid. On scheduled albuterol. Ipratropium as needed continued. Polyneuropathy On home Neurontin. Currently held secondary to n.p.o. status History of TIA On home Plavix. Currently held because of bright red blood per rectum. Hypertriglyceridemia On TriCor. Held because of bright red blood per rectum. BPH On Flomax. Held because of n.p.o. status and GI bleed with risk for hypotension CKD Stage III Stable DVT prophylaxis SCDs ordered Code Visit Inpatient E&M: 10735 Init Hosp L3
[2019-04-08] MEDS: 0.9% Normal Saline 1,000 ML 999 ML IV (23:32)
--- NOTE | 2019-04-08 23:38 | ED.RN ---
50ML OF DARK RED BLOOD AND WATERY STOOL IN THE COMODE. DR. PATRICK MADE AWARE, WILL CONTINUE TO MONITOR THE PT, PT HAS NO FURTHER NEEDS AT THIS TIME.
[2019-04-09] VITALS (27 sets, daily range): BP systolic 71–118; BP diastolic 46–69; PULSE 60–96; RESP 14–24; TEMP 36.3–36.9; O2SAT 91–98; BMI 31.3; BMI 31.4
[2019-04-09] MEDS: 0.9% Normal Saline 1,000 ML 100 ML IV ×2 (01:11→15:08)
[2019-04-09 01:19] LABS: Hematocrit 42.4 % (40-54); Hemoglobin 14.1 g/dL (13.0-16.5)
[2019-04-09] MEDS: Gabapentin 100 MG Capsule PO (01:39)
[2019-04-09] MEDS: Albuterol 2.5 MG/3 ML VIAL.NEB. INHALATION ×3 (02:01→19:08)
[2019-04-09 06:53] LABS: Hematocrit 35.6 % (40-54); Hemoglobin 11.7 g/dL (13.0-16.5)
[2019-04-09 07:06] LABS: Anion Gap 8 (5-15); BUN 25 mg/dL (7-18); BUN/Creat Ratio 20.7 RATIO (10-20); Calcium,Total 8.2 mg/dL (8.5-10.1); Chloride 114 mmol/L (98-107); Creatinine, Serum 1.21 mg/dL (0.70-1.30); EST Glomerular Filtration Rate 61 mL/min (>60); Est Glom Filt Rate - Afr Amer 74 mL/min (>60); Estimated Creatinine Clearance 47.88 ml/min; Glucose 107 mg/dL (74-106); Potassium 4.2 mmol/L (3.5-5.1); Sodium Level 146 mmol/L (136-145)
--- NOTE | 2019-04-09 07:14 | NM_ITS ---
CLINICAL: 83 year old female with history of gastrointestinal hemorrhage. LABELED BLOOD POOL GASTROINTESTINAL BLEEDING STUDY COMPARISON: None available FINDINGS: Following the intravenous administration of 25.8 mCi of 99m Tc Ultratag labeled RBCs, image acquisitions of the anterior-abdomen and pelvis for a total of 60 minutes reveal: 1. Sequential one minute acquisitions of the anterior abdomen and pelvis demonstrate no evidence of increased radiopharmaceutical concentration indicative of gastrointestinal hemorrhage. 2. Physiologic distribution of the tracer is otherwise defined in the hepatic, splenic, major vascular blood pool, urinary bladder and external genitalia. NM/GI Bleed Scan IMPRESSION: 1. NEGATIVE 99m Tc ULTRATAG LABELED BLOOD POOL GASTROINTESTINAL BLEEDING EXAMINATION. 2. There is no evidence of acute gastrointestinal hemorrhage on the present evaluation. Electronically Signed: Leandro Pastrana DO at 11:16 EDT Tel , Service support ,
[2019-04-09] MEDS: Budesonide Respules 0.5 MG/2 ML AMPUL.NEB. INHALATION ×2 (07:35→18:48)
--- NOTE | 2019-04-09 07:54 | PCM.CONS.GEN ---
Problem List (1) Lower GI bleed Status: Acute Reason for Consult Date of Consultation: 04/09/19 Reason for Consultation: GI bleed History of Present Illness: The patient is a 83 year old M admitted with GI bleed. The patient reports that he started passing bright red blood with clots yesterday. He is having some right lower quadrant pain. He has a history of diverticular bleed in the past. His last colonoscopy was 2 years ago which revealed extensive diverticulosis of the entire colon. Patient is on Plavix for TIAs. Past Medical History Past Medical History (Chronic Problems): Chronic Problems Peripheral neuropathy (Chronic) GERD (gastroesophageal reflux disease) (Chronic) BPH (benign prostatic hyperplasia) (Chronic) HTN (hypertension), benign (Chronic) Chronic obstructive lung disease (Chronic) Dyslipidemia (Chronic) Hx-TIA (transient ischemic attack) (Chronic) History of gastrointestinal bleeding (Chronic) Allergies cerivastatin sodium [From Baycol] Allergy (Severe, Verified 04/08/19 21:52) Other KIDNEY FAILURE gemfibrozil [From Lopid] Adverse Reaction (Verified 04/08/19 21:52) Other meperidine [From Demerol] Adverse Reaction (Verified 04/08/19 21:52) Other Home Medications: Ambulatory Orders Medication Instructions Recorded Albuterol Inhaler [Ventolin Hfa] 2 puff INHALATION Q4H PRN PRN 07/05/14 Clopidogrel Bisulfate [Plavix] 75 mg PO DAILY 07/05/14 Fenofibrate [Tricor] 160 mg PO DAILY 07/05/14 Ramipril [Altace] 10 mg PO DAILY 07/05/14 Pantoprazole Sodium [Protonix] 40 mg PO DAILY 08/21/14 Cholecalciferol (VIT D3) [Vitamin 3,000 unit PO BID 11/23/14 D3] Tamsulosin HCl [Flomax] 0.4 mg PO QHS 11/23/14 Ipratropium [Atrovent Aerosols] 0.5 mg INHALATION Q8H PRN PRN 11/05/16 Budesonide/Formoterol 160/4.5 2 puff INHALATION BID 06/28/18 [Symbicort 160/4.5 Mcg Inhaler (SP)] Gabapentin [Neurontin] 100 mg PO TID 06/28/18 Loperamide [Imodium] 2 mg PO Q2H PRN PRN #5 capsule 06/30/18 Surgical History: cholecystectomy, tonsillectomy, - - .Right eye surgery, Left knee surgery, lung biopsy, bile duct stone removal. Psychiatric History: No pertinent psych hx Smoking Status: Former smoker - *Family History Maternal History Items: Hypertension, - - Parkinson's Disease Paternal History Items: Heart Disease Review of Systems Constitutional: Denies: Anorexia, Fever Eyes: Denies: Blurred vision HEENT: Denies: Difficulty Swallowing Cardiovascular: Denies: Chest Pain, Claudication Respiratory: Denies: Cough, Shortness of Breath Gastrointestinal: Reports: Abdominal Pain - Right lower quadrant, Hematochezia. Denies: Hematemesis, Nausea, Vomiting Genitourinary: Denies: Dysuria Psychiatric: Denies: Anxiety Patient Problems: Active and Suspected Problems Lower GI bleed (Acute) Diverticular hemorrhage (Suspected) - Physical Exam General: Alert, Oriented x3 Neck: No JVD Lungs: Normal air movement Cardiovascular: Regular rate, Regular Rhythm Abdomen: Soft, Non-Distended Extremities: No clubbing Vital Signs Temp Pulse Resp BP Pulse Ox 97.6 F L 67 18 101/63 95 04/09/19 06:27 04/09/19 06:27 04/09/19 06:27 04/09/19 06:27 04/09/19 06:27 Oxygen Delivery Method Room Air Weight: 212 lb 5 oz Body Mass Index (BMI) 31.3 Intake and Output for Last 24 Hours 04/07/19 04/08/19 04/09/19 23:59 23:59 23:59 Intake Total 1820 / 1820 Output Total 650 / 650 Balance 1170 / 1170 Laboratory Tests Past 24 Hrs 04/08/19 04/08/19 04/08/19 22:34 22:34 22:34 WBC 8.0 RBC 4.68 Hgb 14.7 Hct 44.6 MCV 95.3 H MCH 31.4 MCHC 33.0 RDW Std Deviation 47.8 H RDW Coeff of Nohemi 13.5 Plt Count 188 MPV 9.6 Immature Gran % (Auto) 0.300 Neut % (Auto) 62.5 Lymph % (Auto) 23.0 [place] % (Auto) 11.4 H Eos % (Auto) 1.9 Baso % (Auto) 0.9 Absolute Neuts (auto) 5.0 Absolute Lymphs (auto) 1.84 Nucleated RBC % 0 PT 14.2 INR 1.1 Sodium 143 Potassium 4.3 Chloride 112 H Carbon Dioxide 25.0 Anion Gap 6 BUN 26 H Creatinine 1.38 H Estim Creat Clear Calc 41.98 Est GFR (MDRD) Af Amer 64 Est GFR (MDRD) Non-Af 53 L BUN/Creatinine Ratio 18.8 Glucose 118 H Calcium 9.2 Total Bilirubin 0.40 AST 21 ALT 30 Alkaline Phosphatase 49 Total Protein 6.6 Albumin 3.5 Globulin 3.1 Albumin/Globulin Ratio 1.1 Blood Type Antibody Screen Crossmatch 04/08/19 04/08/19 04/09/19 22:34 22:34 01:09 WBC RBC Hgb 14.1 Hct 42.4 MCV MCH MCHC RDW Std Deviation RDW Coeff of Nohemi Plt Count MPV Immature Gran % (Auto) Neut % (Auto) Lymph % (Auto) [place] % (Auto) Eos % (Auto) Baso % (Auto) Absolute Neuts (auto) Absolute Lymphs (auto) Nucleated RBC % PT INR Sodium Potassium Chloride Carbon Dioxide Anion Gap BUN Creatinine Estim Creat Clear Calc Est GFR (MDRD) Af Amer Est GFR (MDRD) Non-Af BUN/Creatinine Ratio Glucose Calcium Total Bilirubin AST ALT Alkaline Phosphatase Total Protein Albumin Globulin Albumin/Globulin Ratio Blood Type O NEGATIVE Antibody Screen NEGATIVE Crossmatch See Detail 04/09/19 04/09/19 06:34 06:34 WBC RBC Hgb 11.7 L Hct 35.6 L MCV MCH MCHC RDW Std Deviation RDW Coeff of Nohemi Plt Count MPV Immature Gran % (Auto) Neut % (Auto) Lymph % (Auto) [place] % (Auto) Eos % (Auto) Baso % (Auto) Absolute Neuts (auto) Absolute Lymphs (auto) Nucleated RBC % PT INR Sodium 146 H Potassium 4.2 Chloride 114 H Carbon Dioxide 24.0 Anion Gap 8 BUN 25 H Creatinine 1.21 Estim Creat Clear Calc 47.88 Est GFR (MDRD) Af Amer 74 Est GFR (MDRD) Non-Af 61 BUN/Creatinine Ratio 20.7 H Glucose 107 H Calcium 8.2 L Total Bilirubin AST ALT Alkaline Phosphatase Total Protein Albumin Globulin Albumin/Globulin Ratio Blood Type Antibody Screen Crossmatch Assessment/Plan All Active Problems Lower GI bleed (Acute) 83-year-old male with GI bleed 1. I discussed the patient's situation with him. He is receiving a platelet transfusion due to the Plavix to try to stop the bleeding. The patient is getting serial hemoglobins. I will order 2 L of GoLYTELY and attempt upper and lower endoscopy this afternoon. 2. I explained endoscopy in detail to the patient. I explained the risks including but not limited to stroke or heart attack with anesthesia, perforation of the GI tract, bleeding, infection. I explained that any of these could necessitate further emergency surgery. The patient understands and all questions were answered sufficiently. The patient wishes to proceed with procedure. Tesfaye Smyth MD Pager: [facility] [address] [place] [address] [address] [place] [address] Office:
[2019-04-09] MEDS: Acetaminophen 325 MG Tablet 650 MG PO (08:13)
[2019-04-09] MEDS: Electrolyte Solution/Peg's 4000 ML 2000 ML PO (08:27)
--- NOTE | 2019-04-09 09:39 | PN_ITS ---
Patient Problems: Active and Suspected Problems Lower GI bleed (Acute) Diverticular hemorrhage (Suspected) Subjective: Patient was admitted overnight with complaint of bright red bleeding per rectum. Patient seen and examined this morning. He still complains of rectal bleeding which is painless. He has some associated clots. He denies any nausea vomiting, abdominal pain or diarrhea. He denies any lightheadedness or dizziness. He does have a history of diverticulosis. Review of systems otherwise negative. Labs and vitals reviewed. General surgery is on board and patient is for colonoscopy later today. Vitals/I&O's: Vital Signs Temp Pulse Resp BP Pulse Ox 97.5 F L 68 15 110/61 93 04/09/19 08:02 04/09/19 08:02 04/09/19 08:02 04/09/19 08:02 04/09/19 07:35 Oxygen Delivery Method Room Air Weight: 212 lb 5 oz Body Mass Index (BMI) 31.3 Intake and Output for Last 24 Hours 04/07/19 04/08/19 04/09/19 23:59 23:59 23:59 Intake Total 1820 / 1820 Output Total 650 / 650 Balance 1170 / 1170 General: Alert, Oriented x3, Cooperative, No apparent distress HEENT: Atraumatic, PERRLA, EOMI, Normocephalic Oral: Moist Mucosa Neck: Supple Lungs: Clear to auscultation, Normal air movement, No rhonchi, No wheeze, No rales Cardiovascular: Regular rate, Regular Rhythm, Normal S1, Normal S2, No murmurs Abdomen: Bowel Sounds Present, Soft, Non Tender, Non-Distended, No Hepato- splenomegaly Extremities: No clubbing, No cyanosis, No edema, Capillary Refill Less than 3 Seconds Skin: No rashes, No breakdown Musculoskeletal: No Tenderness to Palpation of Joints or Extremities Lymphatic: No Cervical, Supraclavicular, or Inguinal Adenopathy Neurological: Cranial nerves II-XII grossly intact, Neuro grossly intact, Motor Exam 5/5 strength throughout Psych/Mental Status: Normal Affect, Appropriate, Alert and oriented to time, place, person, mood and affect Laboratory Results 04/08/19 22:34: WBC 8.0, RBC 4.68, Hgb 14.7, Hct 44.6, MCV 95.3 H, MCH 31.4, MCHC 33.0, RDW Std Deviation 47.8 H, RDW Coeff of Nohemi 13.5, Plt Count 188, MPV 9.6, Immature Gran % (Auto) 0.300, Neut % (Auto) 62.5, Lymph % (Auto) 23.0, [place] % (Auto) 11.4 H, Eos % (Auto) 1.9, Baso % (Auto) 0.9, Absolute Neuts (auto) 5.0, Absolute Lymphs (auto) 1.84, Nucleated RBC % 0 04/08/19 22:34: Sodium 143, Potassium 4.3, Chloride 112 H, Carbon Dioxide 25.0, Anion Gap 6, BUN 26 H, Creatinine 1.38 H, Estim Creat Clear Calc 41.98, Est GFR (MDRD) Af Amer 64, Est GFR (MDRD) Non-Af 53 L, BUN/Creatinine Ratio 18.8, Glucose 118 H, Calcium 9.2, Total Bilirubin 0.40, AST 21, ALT 30, Alkaline Phosphatase 49, Total Protein 6.6, Albumin 3.5, Globulin 3.1, Albumin/Globulin Ratio 1.1 04/08/19 22:34: PT 14.2, INR 1.1 04/08/19 22:34: Blood Type O NEGATIVE, Antibody Screen NEGATIVE 04/08/19 22:34: Crossmatch See Detail 04/09/19 01:09: Hgb 14.1, Hct 42.4 04/09/19 06:34: Sodium 146 H, Potassium 4.2, Chloride 114 H, Carbon Dioxide 24.0, Anion Gap 8, BUN 25 H, Creatinine 1.21, Estim Creat Clear Calc 47.88, Est GFR (MDRD) Af Amer 74, Est GFR (MDRD) Non-Af 61, BUN/Creatinine Ratio 20.7 H, Glucose 107 H, Calcium 8.2 L 04/09/19 06:34: Hgb 11.7 L, Hct 35.6 L Current Medications Acetaminophen (Tylenol) 650 mg PO Q6H PRN PRN PRN Reason: Mild Pain (1-3)/Temp > 100.7 F Last Admin: 04/09/19 08:13 Dose: 650 mg Documented by: Albuterol Sulfate (Ventolin Aerosols) 2.5 mg INHALATION Q2H PRN PRN PRN Reason: Shortness of Breath/Wheezing Albuterol Sulfate (Ventolin Aerosols) 2.5 mg INHALATION Q6HWA.RT [facility] Last Admin: 04/09/19 07:34 Dose: 2.5 mg Documented by: Budesonide (Pulmicort Aerosol) 0.5 mg INHALATION BID.RT [facility] Last Admin: 04/09/19 07:35 Dose: 0.5 mg Documented by: Dextrose (D50w Syringe) 0 gm IV X1 PRN; Protocol PRN Reason: Hypoglycemia Glucagon () 1 mg IM .X1 PRN PRN Reason: Hypoglycemia Sodium Chloride () 1,000 mls @ 100 mls/hr IV .Q10H [facility] Stop: 04/09/19 20:58 Last Admin: 04/09/19 01:11 Dose: 100 mls/hr Documented by: Pantoprazole Sodium 40 mg/ (Sodium Chloride) 110 mls @ 330 mls/hr IV Q12 [facility] Ipratropium [place] (Atrovent) 0.5 mg INHALATION Q8H PRN PRN PRN Reason: SOB &/OR WHEEZING Sodium Chloride () 10 - 40 ml IV UD PRN PRN Reason: SALINE FLUSH Medical Necessity - Tobacco Use Smoking Status: Former smoker Assessment/Plan All Active Problems Lower GI bleed (Acute) 1. Lower GI bleed likely due to diverticular bleed * still complains of rectal bleeding * Hb today is 11.7, was 14.7 on admission * general surgery on board; recommended to transfuse platelets to counteract Plavis * for colonoscopy today * currently NPO; continue iVF NS @ 100cc/hr and bowel prep * plavix on hold * type and crossmatch for 2 units of PRBCs done; will transfuse if he continue bleeding profusely, and Hb falls to <7 * 2. COPD: stable. On breathing treatments. 3. History of TIAA: plavix on hold o/a of rectal bleeding. 4. History of abdominal aortic aneurysm: says aneurysm is ~ 5.2cm in diameter. He follows up with a vascular surgeon at [facility]. Stable 5. BPH: on flomax 6. Hypertriglyceridemia: on Tricor 7. CKD stage 3: Cr is 1.21 today, from 1.21 on admission. Stable. Will monitor. 8. Polyneuropathy: on neurontin. DVT prophylaxis: SCDs Code Visit Inpatient E&M: 83270 Subs Hosp L3
--- NOTE | 2019-04-09 11:30 | CASEMGMT ---
RN CM Face to Face with patient for initial transition planning/care coordination assessment. RN CM introduced self and role at [facility]. Patient lying in bed, alert and oriented, at bedside. Patient willing to participate in assessment and is able to answer all questions appropriately. Care providers, pharmacy, and demographics verified. Patient wishes to discharge home, denies need for home health at this time. Patient states he has no further needs or concerns at this time. CM to follow for discharge planning needs that may arise. PCP: Chidi Specialists: Taiwo urologist; Tamanna vascular surgeon Preferred Pharmacy: [facility] Insurance: [facility] Prescription Benefit: yes Living Will/HPOA: none LNOK: Living Arrangements: Patient lives with in 1 story home with no steps to enter the home. Patient is independent at home. Transportation: self/ DME/HHC: Patient states he has cane, rollator, and nebulizer at home. Disposition Plan: Patient to discharge home with family support and follow-up plans in place. Layla BENNETT, RN, CM
[2019-04-09 12:54] LABS: Hematocrit 36.4 % (40-54); Hemoglobin 12.1 g/dL (13.0-16.5)
--- NOTE | 2019-04-09 15:10 | NURSING ---
OFF IVAC TO GO FOR PROCEDURE. 0FF UNIT VIA BED
--- NOTE | 2019-04-09 16:13 | OP.ENDO_ITS ---
04/09/2019 Kameron Murillo [address] [place] [address] Re : Upper GI endoscopy procedure for Leandro Hernandez Dear Dr. Murillo This procedure was performed on Tuesday, April 09, 2019. My impressions and recommendations are as follows: Impressions : - Normal esophagus. - Normal stomach. - Normal examined duodenum. - No specimens collected. Recommendations : - Observe patient in [Observe area] [Time] [Reason]. - The patient has taken no previous anticoagulant or antiplatelet agents and therefore does not require instructions for their resumption. My findings are described in the full procedure note, which is enclosed. If I can be of further assistance, please feel free to contact me at Doctor phone number(s): , Work: . Sincerely, Tesfaye Smyth MD 04/09/2019 4:13:16 PM This report has been signed electronically.
--- NOTE | 2019-04-09 16:16 | OP.ENDO_ITS ---
04/09/2019 Kameron Murillo [address] [place] [address] Re : Colonoscopy procedure for Leandro Hernandez Dear Dr. Murillo This procedure was performed on Tuesday, April 09, 2019. My impressions and recommendations are as follows: Impressions : - Diverticulosis in the entire examined colon. - Blood in the sigmoid colon. - No specimens collected. Recommendations : - Observe patient in GI recovery unit for ongoing care. - Resume previous diet. - Continue present medications. - No recommendation at this time regarding repeat colonoscopy due to age. My findings are described in the full procedure note, which is enclosed. If I can be of further assistance, please feel free to contact me at Doctor phone number(s): , Work: . Sincerely, Tesfaye Smyth MD 04/09/2019 4:16:06 PM This report has been signed electronically.
--- NOTE | 2019-04-09 16:17 | PCM.PN.BLA ---
Progress Note Performed EGD and colonoscopy on the patient. EGD revealed no stigmata of bleeding or ulceration or active bleeding. Colonoscopy did reveal some small blood clots in the sigmoid colon associated with diverticulum. The patient had extensive diverticulosis of the entire colon. No blood clots in the right or transverse colon. Likely source of the bleed is sigmoid diverticulosis. No bleeding from hemorrhoids. Overall the patient's bowel prep was very good with minimal blood and blood clots in the colon. No active bleeding noted. Okay for diet. Tesfaye Smyth MD Pager: [facility] [address] [place] [address], [address] [place] [address] Office:
[2019-04-09 19:44] LABS: Hematocrit 30.3 % (40-54); Hemoglobin 9.9 g/dL (13.0-16.5)
[2019-04-10] VITALS (15 sets, daily range): BP systolic 110–121; BP diastolic 62–75; PULSE 60–90; RESP 14–20; TEMP 36.9–37.3; O2SAT 93–95
[2019-04-10 02:28] LABS: Absolute Neutrophil Count 3.5 X10^3/uL (2.0-7.7); Basophil# 0.07 X10^3/uL; Basophil% 1.2 % (0-1); Eosinophil# 0.17 X10^3/uL; Eosinophils% 2.8 % (0-5); Hematocrit 28.1 % (40-54); Hemoglobin 9.5 g/dL (13.0-16.5); Mean Corp Hgb Conc 33.8 g/dL (32-36); Mean Corpuscular Hgb 32.2 pg (27.0-32.0); Mean Corpuscular Volume 95.3 fL (80-94); Mean Platelet Vol. 9.6 fl (6.2-12.0); Monocyte# 0.73 X10^3/uL; Monocyte% 12.2 % (0-10); NRBC Flagged by Analyzer 0 % (0-5); Neutrophil % 58.5 % (47-70); Platelet Count 170 K/mm3 (150-450); RBC Distribution Width CV 13.7 % (11.6-14.6); RBC Distribution Width SD 47.5 fl (35.1-43.9); Red Blood Count 2.95 M/mm3 (4.6-6.2)
[2019-04-10 02:53] LABS: Anion Gap 7 (5-15); BUN 21 mg/dL (7-18); BUN/Creat Ratio 18.3 RATIO (10-20); Chloride 110 mmol/L (98-107); Creatinine, Serum 1.15 mg/dL (0.70-1.30); EST Glomerular Filtration Rate 65 mL/min (>60); Est Glom Filt Rate - Afr Amer 78 mL/min (>60); Estimated Creatinine Clearance 50.38 ml/min; Glucose 99 mg/dL (74-106); Sodium Level 141 mmol/L (136-145)
[2019-04-10] MEDS: Budesonide Respules 0.5 MG/2 ML AMPUL.NEB. INHALATION ×2 (06:59→19:33)
[2019-04-10] MEDS: Albuterol 2.5 MG/3 ML VIAL.NEB. INHALATION ×3 (06:59→19:32)
[2019-04-10] MEDS: 0.9% NaCl Peripheral Flush Adult/Peds IV ×2 (07:15→10:13)
--- NOTE | 2019-04-10 08:31 | PCM.PN.SRG ---
Patient Problems: Active and Suspected Problems Lower GI bleed (Acute) Diverticular hemorrhage (Suspected) Subjective: Patient reports no more bloody bowel movements. - Physical Exam General: Alert, Oriented x3 Lungs: Normal air movement Cardiovascular: Regular rate, Regular Rhythm Abdomen: Soft, Non Tender, Non-Distended Vital Signs Temp Pulse Resp BP Pulse Ox 98.4 F 73 20 H 110/63 93 04/10/19 01:00 04/10/19 08:00 04/10/19 01:00 04/10/19 01:00 04/10/19 01:00 Oxygen Delivery Method Room Air Weight: 212 lb 4.882 oz Body Mass Index (BMI) 31.3 Intake and Output for Last 24 Hours 04/08/19 04/09/19 04/10/19 23:59 23:59 23:59 Intake Total 3875 / 4115 240 / 240 Output Total 650 / 650 Balance 3225 / 3465 240 / 240 Laboratory Tests Past 24 Hrs 04/09/19 04/09/19 04/10/19 12:45 19:07 02:10 WBC 6.0 RBC 2.95 L Hgb 12.1 L 9.9 L 9.5 L Hct 36.4 L 30.3 L 28.1 L MCV 95.3 H MCH 32.2 H MCHC 33.8 RDW Std Deviation 47.5 H RDW Coeff of Nohemi 13.7 Plt Count 170 MPV 9.6 Immature Gran % (Auto) 0.300 Neut % (Auto) 58.5 Lymph % (Auto) 25.0 [place] % (Auto) 12.2 H Eos % (Auto) 2.8 Baso % (Auto) 1.2 H Absolute Neuts (auto) 3.5 Absolute Lymphs (auto) 1.50 Nucleated RBC % 0 Sodium Potassium Chloride Carbon Dioxide Anion Gap BUN Creatinine Estim Creat Clear Calc Est GFR (MDRD) Af Amer Est GFR (MDRD) Non-Af BUN/Creatinine Ratio Glucose Calcium 04/10/19 02:10 WBC RBC Hgb Hct MCV MCH MCHC RDW Std Deviation RDW Coeff of Nohemi Plt Count MPV Immature Gran % (Auto) Neut % (Auto) Lymph % (Auto) [place] % (Auto) Eos % (Auto) Baso % (Auto) Absolute Neuts (auto) Absolute Lymphs (auto) Nucleated RBC % Sodium 141 Potassium 4.0 Chloride 110 H Carbon Dioxide 24.0 Anion Gap 7 BUN 21 H Creatinine 1.15 Estim Creat Clear Calc 50.38 Est GFR (MDRD) Af Amer 78 Est GFR (MDRD) Non-Af 65 BUN/Creatinine Ratio 18.3 Glucose 99 Calcium 8.0 L Medical Necessity - Tobacco Use Smoking Status: Former smoker Assessment/Plan All Active Problems Lower GI bleed (Acute) 83-year-old male with diverticular bleed 1. Patient had no more bloody bowel movements overnight. His hemoglobin did slightly decreased. May need to be rechecked before discharge. Regular diet. Tesfaye Smyth MD Pager: [facility] [address] [place] [address], [address] [place] [address] Office:
--- NOTE | 2019-04-10 09:30 | PN_ITS ---
Patient Problems: Active and Suspected Problems Lower GI bleed (Acute) Diverticular hemorrhage (Suspected) Subjective: Patient seen and examined. He had no complaints. He has not had any recurrence of rectal bleeding. He had EGD and colonoscopy yesterday. Colonoscopy showed diverticulosis in the entire examined colon with blood in the sigmoid colon. EGD was normal. Hemoglobin is down to 9.5 today. Vitals/I&O's: Vital Signs Temp Pulse Resp BP Pulse Ox 98.4 F 68 14 121/62 H 93 04/10/19 08:10 04/10/19 08:10 04/10/19 08:10 04/10/19 08:10 04/10/19 08:10 Oxygen Delivery Method Room Air Weight: 212 lb 4.882 oz Body Mass Index (BMI) 31.3 Intake and Output for Last 24 Hours 04/08/19 04/09/19 04/10/19 23:59 23:59 23:59 Intake Total 3875 / 4115 240 / 240 Output Total 650 / 650 Balance 3225 / 3465 240 / 240 General: Alert, Oriented x3, Cooperative, No apparent distress HEENT: Atraumatic, PERRLA, EOMI, Normocephalic Oral: Moist Mucosa Neck: Supple Lungs: Clear to auscultation, Normal air movement, No rhonchi, No wheeze, No rales Cardiovascular: Regular rate, Regular Rhythm, Normal S1, Normal S2, No murmurs Abdomen: Bowel Sounds Present, Soft, Non Tender, Non-Distended, No Hepato- splenomegaly Extremities: No clubbing, No cyanosis, No edema, Capillary Refill Less than 3 Seconds Skin: No rashes, No breakdown Musculoskeletal: No Tenderness to Palpation of Joints or Extremities Lymphatic: No Cervical, Supraclavicular, or Inguinal Adenopathy Neurological: Cranial nerves II-XII grossly intact, Neuro grossly intact, Motor Exam 5/5 strength throughout Psych/Mental Status: Normal Affect, Appropriate, Alert and oriented to time, place, person, mood and affect Laboratory Results 04/09/19 12:45: Hgb 12.1 L, Hct 36.4 L 04/09/19 19:07: Hgb 9.9 L, Hct 30.3 L 04/10/19 02:10: WBC 6.0, RBC 2.95 L, Hgb 9.5 L, Hct 28.1 L, MCV 95.3 H, MCH 32.2 H, MCHC 33.8, RDW Std Deviation 47.5 H, RDW Coeff of Nohemi 13.7, Plt Count 170, MPV 9.6, Immature Gran % (Auto) 0.300, Neut % (Auto) 58.5, Lymph % (Auto) 25.0, [place] % (Auto) 12.2 H, Eos % (Auto) 2.8, Baso % (Auto) 1.2 H, Absolute Neuts (auto) 3.5, Absolute Lymphs (auto) 1.50, Nucleated RBC % 0 04/10/19 02:10: Sodium 141, Potassium 4.0, Chloride 110 H, Carbon Dioxide 24.0, Anion Gap 7, BUN 21 H, Creatinine 1.15, Estim Creat Clear Calc 50.38, Est GFR (MDRD) Af Amer 78, Est GFR (MDRD) Non-Af 65, BUN/Creatinine Ratio 18.3, Glucose 99, Calcium 8.0 L Current Medications Acetaminophen (Tylenol) 650 mg PO Q6H PRN PRN PRN Reason: Mild Pain (1-3)/Temp > 100.7 F Last Admin: 04/09/19 08:13 Dose: 650 mg Documented by: Albuterol Sulfate (Ventolin Aerosols) 2.5 mg INHALATION Q2H PRN PRN PRN Reason: Shortness of Breath/Wheezing Albuterol Sulfate (Ventolin Aerosols) 2.5 mg INHALATION Q6HWA.RT [facility] Last Admin: 04/10/19 06:59 Dose: 2.5 mg Documented by: Budesonide (Pulmicort Aerosol) 0.5 mg INHALATION BID.RT [facility] Last Admin: 04/10/19 06:59 Dose: 0.5 mg Documented by: Dextrose (D50w Syringe) 0 gm IV X1 PRN; Protocol PRN Reason: Hypoglycemia Glucagon () 1 mg IM .X1 PRN PRN Reason: Hypoglycemia Pantoprazole Sodium 40 mg/ (Sodium Chloride) 110 mls @ 330 mls/hr IV Q12 [facility] Last Infusion: 04/09/19 22:07 Dose: Infused Documented by: Ipratropium [place] (Atrovent) 0.5 mg INHALATION Q8H PRN PRN PRN Reason: SOB &/OR WHEEZING Sodium Chloride () 10 - 40 ml IV UD PRN PRN Reason: SALINE FLUSH Last Admin: 04/10/19 07:15 Dose: 20 ml Documented by: Medical Necessity - Tobacco Use Smoking Status: Former smoker Assessment/Plan All Active Problems Lower GI bleed (Acute) 1. Lower GI bleed due to diverticular bleed * hasnt had any more rectal bleeding since admission * Hb today is 9.5 * had EGD which was normal; colonoscopy showed diverticulosis in the entire colon, with blood in sigmoid colon * plavix still on hold * is s/p transfusion of 1 unit of platelets * monitor for today * 2. COPD: stable. On breathing treatments. 3. History of TIAA: plavix on hold o/a of rectal bleeding. 4. History of abdominal aortic aneurysm: says aneurysm is ~ 5.2cm in diameter. He follows up with a vascular surgeon at [facility]. Stable 5. BPH: on flomax 6. Hypertriglyceridemia: on Tricor 7. CKD stage 3: Cr is 1.15 today, from 1.21 on admission. Stable. Will monitor. 8. Polyneuropathy: on neurontin. DVT prophylaxis: SCDs Code Visit Inpatient E&M: 40012 Subs Hosp L2
[2019-04-10] MEDS: Gabapentin 100 MG Capsule PO (21:52)
[2019-04-10] MEDS: Tamsulosin HCl 0.4 MG Capsule PO (21:52)
[2019-04-11 01:15] VITALS: BP 107/61; PULSE 61; RESP 18; TEMP 36.7; O2SAT 97
[2019-04-11 03:37] VITALS: PULSE 60
[2019-04-11] MEDS: Gabapentin 100 MG Capsule PO (05:11)
[2019-04-11 06:07] LABS: Absolute Lymphocyte Count 1.29 X10^3/uL (0.83-4.51); Absolute Neutrophil Count 4.1 X10^3/uL (2.0-7.7); Basophil# 0.04 X10^3/uL; Basophil% 0.6 % (0-1); Eosinophil# 0.17 X10^3/uL; Eosinophils% 2.7 % (0-5); Hematocrit 29.5 % (40-54); Hemoglobin 9.6 g/dL (13.0-16.5); Lymphocyte # 1.29 X10^3/ul (4.0); Lymphocyte % 20.6 % (19-41); Mean Corp Hgb Conc 32.5 g/dL (32-36); Mean Corpuscular Hgb 31.2 pg (27.0-32.0); Mean Corpuscular Volume 95.8 fL (80-94); Mean Platelet Vol. 9.6 fl (6.2-12.0); Monocyte# 0.65 X10^3/uL; Monocyte% 10.4 % (0-10); NRBC Flagged by Analyzer 0 % (0-5); Neutrophil # 4.07 X10^3/uL (2.7-7.7); Neutrophil % 65.2 % (47-70); Platelet Count 186 K/mm3 (150-450); RBC Distribution Width CV 13.7 % (11.6-14.6); RBC Distribution Width SD 47.6 fl (35.1-43.9); Red Blood Count 3.08 M/mm3 (4.6-6.2); White Blood Count 6.3 K/mm3 (4.4-11.0)
[2019-04-11 06:22] LABS: Anion Gap 9 (5-15); BUN 24 mg/dL (7-18); BUN/Creat Ratio 18.5 RATIO (10-20); Calcium,Total 8.7 mg/dL (8.5-10.1); Chloride 109 mmol/L (98-107); EST Glomerular Filtration Rate 56 mL/min (>60); Est Glom Filt Rate - Afr Amer 68 mL/min (>60); Estimated Creatinine Clearance 44.57 ml/min; Glucose 107 mg/dL (74-106); Potassium 3.8 mmol/L (3.5-5.1); Sodium Level 143 mmol/L (136-145)
[2019-04-11] MEDS: Budesonide Respules 0.5 MG/2 ML AMPUL.NEB. INHALATION (06:55)
[2019-04-11] MEDS: Albuterol 2.5 MG/3 ML VIAL.NEB. INHALATION (06:55)
[2019-04-11 07:00] VITALS: PULSE 70; RESP 20
[2019-04-11 07:40] VITALS: PULSE 68
[2019-04-11 08:00] VITALS: BP 118/67; PULSE 68; RESP 16; TEMP 36.4; O2SAT 93
[2019-04-11 08:02] VITALS: O2SAT 96
[2019-04-11] MEDS: 0.9% NaCl Peripheral Flush Adult/Peds IV (09:51)
[2019-04-11] MEDS: Fenofibrate 145 MG Tablet PO (09:55)
--- NOTE | 2019-04-11 10:11 | DCINST_ITS ---
- Discharge Diagnoses Current Active Problems: Current Active and Chronic Problems Lower GI bleed (Acute) You will use the following diet at home:: Cardiac, High fiber Your food should be the consistency of: Regular Your liquids should be the consistency of: Regular/Thin Discharge Activity: Return to Normal Activity Call your doctor if you observe: Fever of 101 or Higher, Shortness of breath, Dizziness, - - rectal bleeding Instructions: When You Have Gastrointestinal (GI) Bleeding Additional Instructions: plavix discontinued as it is contributing to GI bleed; please follow up with your PCP for decision to be made about resuming Plavix Allergies/Adverse Reactions: Allergies cerivastatin sodium [From Baycol] Allergy (Severe, Verified 04/08/19 21:52) Other KIDNEY FAILURE gemfibrozil [From Lopid] Adverse Reaction (Verified 04/08/19 21:52) Other meperidine [From Demerol] Adverse Reaction (Verified 04/08/19 21:52) Other Medications to take at Discharge Albuterol Inhaler [Ventolin Hfa] 2 puff INHALATION Q4H PRN PRN 07/05/14 Ramipril [Altace] 10 mg PO DAILY 07/05/14 Pantoprazole Sodium [Protonix] 40 mg PO DAILY 08/21/14 Cholecalciferol (VIT D3) [Vitamin D3] 3,000 unit PO BID 11/23/14 Tamsulosin HCl [Flomax] 0.4 mg PO QHS 11/23/14 Ipratropium [Atrovent Aerosols] 0.5 mg INHALATION Q8H PRN PRN 11/05/16 Budesonide/Formoterol 160/4.5 [Symbicort 160/4.5 Mcg Inhaler (SP)] 2 puff INHALATION BID 06/28/18 Gabapentin [Neurontin] 100 mg PO TID 06/28/18 Loperamide [Imodium] 2 mg PO Q2H PRN PRN #5 capsule 06/30/18 Fenofibrate 160 mg PO DAILY 04/10/19 Primary Care Physician: Kameron Murillo MD [Primary Care Provider] - Please follow up with your Primary Care Physician in: one week Test Results: Test results from this visit will be discussed in further detail at your follow- up appointment, if applicable. Please Follow Up With: Tesfaye Smyth MD When: 1-2 weeks Proposed Discharge Date: 04/11/19
--- NOTE | 2019-04-11 10:14 | DS.PCM_ITS ---
Discharge Date and Diagnosis Date of Admission: 04/08/19 Date of Discharge: 04/11/19 - Primary Discharge Diagnosis Active and Suspected Problems Lower GI bleed (Acute) Diverticular hemorrhage (Suspected) - Secondary Discharge Diagnosis Chronic Problems Peripheral neuropathy (Chronic) GERD (gastroesophageal reflux disease) (Chronic) BPH (benign prostatic hyperplasia) (Chronic) HTN (hypertension), benign (Chronic) Chronic obstructive lung disease (Chronic) Dyslipidemia (Chronic) Hx-TIA (transient ischemic attack) (Chronic) History of gastrointestinal bleeding (Chronic) Hospital Course and Treatment Imaging Results: Diagnostic Data GI Bleed Scan Nuclear Medicine 04/09/19 07:14 IMPRESSION: 1. NEGATIVE 99m Tc ULTRATAG LABELED BLOOD POOL GASTROINTESTINAL BLEEDING EXAMINATION. 2. There is no evidence of acute gastrointestinal hemorrhage on the present evaluation. Electronically Signed: Leandro Pastrana DO at 11:16 EDT Tel , Service support , general surgery -Dr Smyth Operations: None Procedures: Colonoscopy, EGD Summary of Care Provided: The patient is a 83 year old M with a past medical history as listed which includes diverticulosis with previous history of diverticular bleed. He was admitted through the ED on 04/08/2019 with a complaint of progressively worsening bleeding per rectum with associated clots. He complained of some dull abdominal pain but denied any nausea or vomiting. On admission, his hemoglobin was 14.7 and INR was 1.1. Labs were otherwise unremarkable. He was admitted and managed for acute lower GI bleed likely due to diverticular bleed. He was hydrated with IV fluids and his Plavix was held. General surgery was consulted and recommended transfusion of 1 unit of packed red blood cells to counteract Plavix. He had GI bleeding scan which was negative. He had EGD and colonoscopy on 04/09/2019. EGD revealed no stigmata of bleeding ulceration or active bleeding. Colonoscopy revealed some small blood clots in the sigmoid colon associated with a diverticulum and he had extensive diverticulosis of the entire colon but no blood clots were seen. He was therefore believe that the likely source of the bleed was sigmoid diverticulosis. Bleeding stopped and did not recur. Patient remained stable. Hemoglobin on day of discharge was 9.6. Per discussion with general surgery, decision was made to discontinue Plavix completely as patient states it was for a TIA that he had many many years ago. Patient is to continue follow-up with his primary care doctor and neurologist for decision to be made about resuming Plavix as needed. He is to follow-up with his primary care doctor within 1 week. Patient seen and examined prior to discharge. He felt well and had no complaints. Review of systems otherwise negative. Labs and vitals reviewed. Home medications reviewed and reconciled. o/e: Vital Signs Height 5 ft 9 in Weight: 212 lb 4.882 oz Weight in Pounds 212.3 lbs Pulse Ox 96 Temperature 97.6 F Pulse Rate 68 Respiratory Rate 16 Blood Pressure 118/67 Blood Pressure Position Semi-Fowlers [] General: Alert, Oriented x3, Cooperative, No apparent distress HEENT: Atraumatic, PERRLA, EOMI, Normocephalic Oral: Moist Mucosa Neck: Supple Lungs: Clear to auscultation, Normal air movement, No rhonchi, No wheeze, No rales Cardiovascular: Regular rate, Regular Rhythm, Normal S1, Normal S2, No murmurs Abdomen: Bowel Sounds Present, Soft, Non Tender, Non-Distended, No Hepato- splenomegaly Extremities: No clubbing, No cyanosis, No edema, Capillary Refill Less than 3 Seconds Skin: No rashes, No breakdown Musculoskeletal: No Tenderness to Palpation of Joints or Extremities Lymphatic: No Cervical, Supraclavicular, or Inguinal Adenopathy Neurological: Cranial nerves II-XII grossly intact, Neuro grossly intact, Motor Exam 5/5 strength throughout Psych/Mental Status: Normal Affect, Appropriate, Alert and oriented to time, place, person, mood and affect Plan as above. - Physical Exam Vital Signs Temp Pulse Resp BP Pulse Ox 97.6 F L 68 16 118/67 96 04/11/19 08:00 04/11/19 08:00 04/11/19 08:00 04/11/19 08:00 04/11/19 08:02 Oxygen Delivery Method Room Air Weight: 212 lb 4.882 oz Body Mass Index (BMI) 31.3 Intake and Output for Last 24 Hours 04/09/19 04/10/19 04/11/19 23:59 23:59 23:59 Intake Total 3875 / 4115 860 / 860 Output Total 650 / 650 3 / 3 Balance 3225 / 3465 857 / 857 Laboratory Tests Past 24 Hrs 04/11/19 04/11/19 05:38 05:38 WBC 6.3 RBC 3.08 L Hgb 9.6 L Hct 29.5 L MCV 95.8 H MCH 31.2 MCHC 32.5 RDW Std Deviation 47.6 H RDW Coeff of Nohemi 13.7 Plt Count 186 MPV 9.6 Immature Gran % (Auto) 0.500 Neut % (Auto) 65.2 Lymph % (Auto) 20.6 [place] % (Auto) 10.4 H Eos % (Auto) 2.7 Baso % (Auto) 0.6 Absolute Neuts (auto) 4.1 Absolute Lymphs (auto) 1.29 Nucleated RBC % 0 Sodium 143 Potassium 3.8 Chloride 109 H Carbon Dioxide 25.0 Anion Gap 9 BUN 24 H Creatinine 1.30 Estim Creat Clear Calc 44.57 Est GFR (MDRD) Af Amer 68 Est GFR (MDRD) Non-Af 56 L BUN/Creatinine Ratio 18.5 Glucose 107 H Calcium 8.7 Discharge Diet: Low fat/ Low Cholesterol - high fiber Discharge Activity: Return to Normal Activity Weight Bearing Status: Weight bearing as tolerated Call your doctor if you observe: Fever of 101 or Higher, Shortness of breath, Dizziness, - - rectal bleeding Home Medications: Medications to take at Discharge Albuterol Inhaler [Ventolin Hfa] 2 puff INHALATION Q4H PRN PRN 07/05/14 Ramipril [Altace] 10 mg PO DAILY 07/05/14 Pantoprazole Sodium [Protonix] 40 mg PO DAILY 08/21/14 Cholecalciferol (VIT D3) [Vitamin D3] 3,000 unit PO BID 11/23/14 Tamsulosin HCl [Flomax] 0.4 mg PO QHS 11/23/14 Ipratropium [Atrovent Aerosols] 0.5 mg INHALATION Q8H PRN PRN 11/05/16 Budesonide/Formoterol 160/4.5 [Symbicort 160/4.5 Mcg Inhaler (SP)] 2 puff INHALATION BID 06/28/18 Gabapentin [Neurontin] 100 mg PO TID 06/28/18 Loperamide [Imodium] 2 mg PO Q2H PRN PRN #5 capsule 06/30/18 Fenofibrate 160 mg PO DAILY 04/10/19 Primary Care Physician: Kameron Murillo MD [Primary Care Provider] - Please follow up with your Primary Care Physician in: one week Please Follow Up With: Tesfaye Smyth MD When: 1-2 weeks Patient Instructions: When You Have Gastrointestinal (GI) Bleeding Disposition: Home Minutes spent on discharge:: 35 Patient Condition:: Stable Medical Necessity - Tobacco Use Smoking Status: Former smoker Meaningful Use Info Meaningful Use Diagnoses (Choose all that apply): None applicable Code Visit Inpatient E&M: 30693 Disch Hosp
--- NOTE | 2019-04-12 14:59 | CASEMGMT ---
RUBEN WEEKS Discharge Follow-Up Phone Call. Sanam: Javier Strata: 3 Discharge Date: 04/11/19 Adm Dx: Bright red blood per rectum Call to pt to inquire about how he has been doing since being discharged from the hospital. Pt stated, I've been doing pretty good. Stated he just had a spell, though, where I felt all tingly in my head. I've had these spells before on/off over the past year and they've been checking me out for it. I think I'm a difficult one to figure out. Pt states he just took his blood pressure and it is 98/56 and pulse is 81. Pt stated the tingling has resolved now and that he is feeling well and has no other c/o. Pt stated Dr Murillo is aware of these spells and has been following him for it. RUBEN WEEKS advised pt to call Dr Murillo's office to make them aware of this and of his BP and to see if they would like to see him earlier than 04/16. Pt stated he would do this. Pt denies having any questions about his discharge instructions, medications, or appts. RUBEN WEEKS thanked pt for choosing [facility]. Magnus BENNETT RN, CM
== END 2019-04-11 11:05 | disposition home or self-care (01) | DRG 378 ==
LOC: ED 23:36 → MS3 04-09 00:12
PROVIDERS: Surgery; Admitting Provider Hospitalist; Emergency Provider Emergency Medicine; Family Provider Family Medicine; PCP Family Medicine; Referring Provider Hospitalist; Visit Provider Student in an Organized Health Care Education/Training Program
PROC: 0DJD8ZZ Inspection of Lower Intestinal Tract, Via Natural or Artificial Opening Endoscopic (ICD-10-PCS; CPT 45378; principal; 2019-04-09 13:55)
DX: K57.31 Diverticulosis of large intestine without perforation or abscess with bleeding (principal); D62 Acute posthemorrhagic anemia; J44.9 Chronic obstructive pulmonary disease, unspecified; G62.9 Polyneuropathy, unspecified; N18.3 Chronic kidney disease, stage 3 (moderate); I12.9 Hypertensive chronic kidney disease with stage 1 through stage 4 chronic kidney disease, or unspecified chronic kidney disease; N40.0 Benign prostatic hyperplasia without lower urinary tract symptoms; E78.5 Hyperlipidemia, unspecified; K21.9 Gastro-esophageal reflux disease without esophagitis; E78.1 Pure hyperglyceridemia; Z86.73 Personal history of transient ischemic attack (TIA), and cerebral infarction without residual deficits; Z87.891 Personal history of nicotine dependence; Z86.79 Personal history of other diseases of the circulatory system; Z79.02 Long term (current) use of antithrombotics/antiplatelets; Z79.51 Long term (current) use of inhaled steroids; Z82.49 Family history of ischemic heart disease and other diseases of the circulatory system; Z82.0 Family history of epilepsy and other diseases of the nervous system
CPT/HCPCS: 36415; 78278; 80048; 80053; 85014; 85018; 85025; 85610; 86850; 86900; 86901; 86920; 86965; 94640; 99285; A9560; J7030; J7040; P9035; A4216

== ENCOUNTER 2020-06-27 15:14 | Emergency (ER) | payer MEDICARE, OTHER, SELFPAY ==
[2019-04-20 12:56] VITALS: BMI 31.3
[2020-06-27 15:15] VITALS: BP 114/69; PULSE 70; RESP 16; TEMP 36.6; O2SAT 95; BMI 31.8
--- NOTE | 2020-06-27 15:47 | RAD_ITS ---
STUDY: X-RAY - LUMBAR SPINE REASON FOR EXAM: Male, 85 years old. Lower back pain that radiates to right hip, osteoarthritis. TECHNIQUE: 5 view(s) of the lumbar spine were obtained. COMPARISON: None FINDINGS: Normal lumbar lordosis. Mild dextroscoliosis centered at L3. 5 mm retrolisthesis of L2 on L3 and 5 mm retrolisthesis of L3 on L4. There is multilevel endplate spondylosis of the lumbar vertebrae. There is multi-level degenerative disc disease with multi-level disc space narrowing. The soft tissue structures are unremarkable. RAD/L/S Spine Min 4 Views IMPRESSION: Mild dextroscoliosis with severe degenerative disc disease. Electronically Signed: Leandro Reddy MD at 16:55 EST Tel , Service support ,
--- NOTE | 2020-06-27 16:02 | ED.DCSUM_ITS ---
History of Present Illness Chief Complaint: Back Informant: Patient Onset: Today Narrative: Patient is an 85-year-old male with a past medical history of hypertension, TIA, AAA who presents to the emergency department for right buttock pain. He states that it started this morning. He currently rates the pain as a 7 out of 10. He does have chronic back issues. Today it started to hurt after he was emptying a dehumidifier. He states he has had previous back surgeries. The last being over 30 years ago. The pain does not go down his legs. Denies any saddle anesthesia. No urinary retention. He has not had any fevers or chills. Denies any associated abdominal pain. He did have a recent CT scan of his abdomen/pelvis to evaluate his AAA and states that it has been stable and under 5 cm. Patient symptoms are aggravated by moving and pushing on the area. He denies any loss of sensation going down his legs. No chest pain or shortness of breath. He has been taking Tylenol but this has not been giving him any relief of his symptoms. Past Medical History - Allergies and Home Meds Allergies/Adverse Reactions: Allergies cerivastatin sodium [From Baycol] Allergy (Severe, Verified 06/27/20 15:17) Other KIDNEY FAILURE gemfibrozil [From Lopid] Adverse Reaction (Verified 06/27/20 15:17) Other meperidine [From Demerol] Adverse Reaction (Verified 06/27/20 15:17) Other Primary Care Physician: Kameron Murillo MD [Primary Care Provider] - 2 Days Prior records reviewed: Yes Surgical History: cholecystectomy, tonsillectomy, - Smoking Status: Former smoker - Family History Maternal Family History: Reports: Hypertension, - - Parkinson's Disease Paternal Family History: Reports: Heart Disease Review of Systems All systems negative except as indicated General: Denies: Chills, Fever, Sweats Eyes: Denies: Visual changes - bilaterally, Diplopia ENT: Denies: Rhinorrhea, Sore throat Cardiovascular: Denies: Chest pain, Palpitations Respiratory: Denies: Dyspnea, Cough, Dyspnea on exertion Gastrointestinal: Denies: Abdominal pain, Nausea, Vomiting, Diarrhea Genitourinary: Denies: Dysuria, Hematuria, Frequency Musculoskeletal: Reports: Back pain. Denies: Neck pain, Extremity Pain Skin: Denies: Rash, Wounds Neurological: Denies: Headache, Weakness, Numbness Physical Exam Vital Signs/Narrative: Vital Signs Temp Pulse Resp BP Pulse Ox 06/27/20 15:15 97.8 F 70 16 114/69 95 Inital Vital Signs reviewed: Yes General: Well nourished, Well developed, No Acute Distress Head: Normocephalic, Atraumatic Eyes: Perrl, EOMI ENT: Moist mucous membranes, No rhinorrhea Neck: Supple, Nontender Cardiovascular: Regular rate, Regular rhythm, No murmurs Respiratory: No distress, CTA bilaterally, Chest nontender Abdomen: Soft, Nontender, Nondistended, Normal bowel sounds Back: Normal Inspection, - - Tenderness over the right piriformis region. Symptoms are reproducible. 5 out of 5 muscle strength. Neurovascular intact of both lower extremities.. Negative for: Spinal tenderness Extremities: Nontender, No edema Skin: Normal color, No rash Neurological: Alert, Oriented x3, Cranial nerves II-XII grossly intact, Normal Strength, Normal Sensation Psychological: Normal affect, Normal Mood Diagnostic/Tx/Re-eval - Medical Decision Making Patient presents to the ED for low back/upper buttock pain. He does have chronic back issues and states that this is similar to previous episodes. He does have a known AAA but he is denying any abdominal pain. No tearing back pain. The majority the pain is over the right buttock. This does occur after lifting although did not trigger immediately. Vascularly intact. Low concern for any AAA dissection given the benign exam. He has a negative psoas sign although does have pain over the area when lifting his leg. Will check x-ray of the low back and give Bronson for symptomatic relief. X-ray showed severe degenerative changes but no acute fractures. He is feeling much better on reexamination and does feel comfortable going home. He was able to ambulate on his own power. I do not think that this is AAA related as it is reproducible over the buttock. Vital signs are within normal limits. He is otherwise neurovascularly intact. He is requesting a prescription for Bronson and will be provided a short course as he is not getting much pain relief with Tylenol. He is to follow-up with his PCP. He is to be cautious taking the Bronson as this can make him tired and should not operate machinery on it. Warning signs and symptoms for which to return to the ED are reviewed. He understands and is agreeable this plan. Discharged home in stable condition. All questions answered. ED Disposition - Plan for ED Patient: Disposition: Home or Assisted Living Diagnosis: Low back pain Instructions: ED Back Pain (Acute or Chronic) Prescriptions: Lidocaine [Lidoderm Patch] 2 patch TOPICAL DAILY 3 Days #6 patch Transmission Status: Received by [facility] Hydrocodone/Acetaminophen [Bronson 5-325 Tablet] 1 ea PO Q8H PRN 3 Days #8 tab PRN Reason: Pain Score 6-10 Transmission Status: Received by [facility] Referrals: Kameron Murillo MD [Primary Care Provider] - 2 Days
[2020-06-27] MEDS: HYDROcodone Bitartrate/Apap 5/325 Tablet PO (16:19)
== END 2020-06-27 18:26 | disposition home or self-care (01) ==
PROVIDERS: Emergency Provider Emergency Medicine; PCP Family Medicine
DX: M54.5 Low back pain (principal); I10 Essential (primary) hypertension; Z86.73 Personal history of transient ischemic attack (TIA), and cerebral infarction without residual deficits; Z82.49 Family history of ischemic heart disease and other diseases of the circulatory system; Z87.891 Personal history of nicotine dependence; Z88.5 Allergy status to narcotic agent; Z90.49 Acquired absence of other specified parts of digestive tract
CPT/HCPCS: 72110; 99283

== ENCOUNTER 2024-11-08 17:58 | Inpatient (IN) | payer MEDICARE, SELFPAY ==
[2024-11-08 17:59] VITALS: BP 124/72; PULSE 86; RESP 20; TEMP 37.5; O2SAT 94; BMI 29.2
--- NOTE | 2024-11-08 18:20 | EX.ED.UPPERE ---
HPI History of Present Illness Chief Complaint: Upper Extremity Injury Detail of Chief Complaint: Pain and swelling and redness to left wrist Informant: patient Narrative Narrative: Patient presents the emergency department with pain swelling and redness to his wrist that started about 6 hours ago. He denies trauma. Patient went to urgent care and was referred to the emergency department. He was told he had a low-grade fever there to 99.5. No history of gout. Denies chills or sweats PFSH PFSH Medical History PAD (peripheral artery disease) Renal cyst Vertebrobasilar artery syndrome Diverticulosis Kidney stone Lung nodule AAA (abdominal aortic aneurysm) Bilateral carotid artery stenosis Asthma Arthritis Diverticular hemorrhage Lower GI bleed BPH (benign prostatic hyperplasia) GERD (gastroesophageal reflux disease) Peripheral neuropathy History of gastrointestinal bleeding Hx-TIA (transient ischemic attack) Chronic obstructive lung disease HTN (hypertension), benign Home Medications ?Medication ?Instructions ?Recorded ?Last Taken ?Type albuterol sulfate 90 mcg/actuation 2 puff inhalation Q4H PRN Sob &/Or 07/05/14 04/08/19 23:00 History aerosol inhaler Wheezing 2 puffs ramipril 10 mg capsule 10 mg PO DAILY BP 07/05/14 11/08/24 History pantoprazole 40 mg tablet,delayed 40 mg PO DAILY gerd 08/21/14 11/08/24 History release cholecalciferol (vitamin D3) 25 3,000 unit PO BID Supplement 11/23/14 11/08/24 History mcg (1,000 unit) tablet tamsulosin 0.4 mg capsule 0.4 mg PO QHS Prostate 11/23/14 11/07/24 History budesonide-formoterol HFA 160 2 puff inhalation BID Breathing 06/28/18 04/08/19 08:00 History mcg-4.5 mcg/actuation aerosol 1 puff inhaler fenofibrate 160 mg tablet 160 mg PO DAILY cholesterol 04/10/19 11/08/24 History albuterol sulfate 2.5 mg/3 mL 2.5 mg continuous nebulization Q4H 11/08/24 Unknown History (0.083 %) solution for nebulization PRN wheezing benzonatate 100 mg capsule 200 mg PO TID PRN cough 11/08/24 11/07/24 History gabapentin 600 mg tablet 600 mg PO TID 11/08/24 11/08/24 History latanoprost 0.005 % eye drops 1 drp ophthalmic (eye) DAILY 11/08/24 11/08/24 History loperamide 2 mg capsule 2 mg PO Q2H PRN Diarrhea 11/08/24 Unknown History Allergy/AdvReac Type Severity Reaction Status Date / Time cerivastatin sodium (From Allergy Severe Other Verified 11/08/24 18:02 Baycol) gemfibrozil (From Lopid) AdvReac Other Verified 11/08/24 18:02 meperidine (From Demerol) AdvReac Other Verified 11/08/24 18:02 Surgical History Total knee replacement status History of colonoscopy (~03/2019) History of esophagogastroduodenoscopy (EGD) (~03/2019) History of back surgery History of detached retina repair Status post vasectomy History of cholecystectomy History of left knee replacement History of back surgery Social History Smoking Status: Never smoker ROS ROS ED Review of Systems ROS Unobtainable: other Constitutional Constitutional ED: Reports lethargy; Denies chills, fever(s), sweats or weight loss Eyes Eyes: Denies blurry vision, change in vision or diplopia ENT ENT ED: Denies rhinorrhea or sore throat Cardiovascular Cardiovascular: Denies chest pain, orthopnea or racing heartbeat Respiratory/Chest Respiratory/Chest: Denies cough, dyspnea, dyspnea on exertion, orthopnea or sputum Gastrointestinal Gastrointestinal: Denies abdominal pain, diarrhea, nausea or vomiting Genitourinary Genitourinary ED: Denies dysuria, hematuria or urinary frequency Musculoskeletal Musculoskeletal: Reports other Details: Left wrist pain and swelling ; Denies arthralgias, back pain, myalgias or neck pain Integumentary Denies abscess, Abrasions or rash Neurologic Neurologic: Denies headache(s) or weakness Psychiatric Psychiatric: Denies anxiety, depression or suicidal thoughts Endocrine Endocrinology: Denies polydipsia, polyphagia or polyuria Hematologic/Lymphatic Hematologic/Lymphatic: Denies easy bleeding, easy bruising or lymphadenopathy Allergic/Immunologic Allergic/Immunologic ED: Denies mouth swelling, tongue swelling or urticaria EXAM Physical Exam Const Vital Signs: 11/08/24 17:59 Temperature 99.5 F H Temperature Source Oral Pulse Rate 86 Respiratory Rate 20 H Blood Pressure 124/72 H Blood Pressure Mean 89 Pulse Ox 94 Positive well nourished and well developed General Appearance ED: well developed and NAD HEENT Reports TM's clear and moist mucous membranes normocephalic and atraumatic; Negative for trauma or tenderness Tympanic Membrane ED: Yes TM's clear Eyes PERRL and EOMs intact bilaterally General Eye ED: Negative for pale conjunctiva or scleral icterus Neck no lymphadenopathy, supple and no JVD General: Negative for tenderness Chest Wall inspection of chest normal and palpation of chest normal Chest: Negative for tenderness Resp normal respiratory effort and clear to auscultation bilaterally Effort and Inspection: Negative for respiratory distress or pain with movement Auscultation: Negative for rhonchi, wheezes or diminished lung sounds Cardio regular rate, regular rhythm, S1 normal heart sound, S2 normal heart sound and no murmurs Peripheral Pulses: pulses 2+ throughout GI normal to inspection, nondistended, normoactive bowel sounds, soft to palpation, non-tender, non-distended and no masses Back/Spine no CVA tenderness and no thoracic nor lumbar tenderness Extremity Extremity Narrative: Left wrist-patient has diffuse swelling to the base of the left thumb with erythema and subtle cellulitic changes involving the area of the radial wrist onto the dorsum of the hand. Pain with range of motion flexion extension of the wrist. He does have arthritic changes noted to the hand and wrist. General Extremety ED: Negative for edema General Extremity: Negative for edema Neuro oriented x3, CN's II-XII intact bilaterally, no sensory deficits noted and gait normal Sensorium / Orientation: awake, alert, oriented to person, oriented to place and oriented to time Motor Exam: strength 5/5 throughout and strength abnormal Psych mental status grossly normal Skin no rashes or lesions noted and no wounds MDM MDM MDM Narrative Medical decision making narrative: Patient presents with pain and swelling to his left wrist. No trauma. Low-grade fever. Sent to ER from urgent care for concern for infection. Patient had an IV line established. CBC with differential obtained showed a WBC count of 10.0. Chemistries unremarkable. C-reactive protein elevated at 5. Sed rate pending. Three-view x-rays of the left wrist obtained interpreted by myself as no evidence of fracture. He had degenerative changes without any gas in the tissues noted. I did discuss case with Dr. Rocha who presented to the emergency department evaluate patient as I had some concern for possibility of septic joint. Patient had a arthrocentesis performed by who ordered diagnostic studies on the fluid. I was asked to have patient admitted by hospitalist for cellulitis and he will follow in consultation. I did start patient on Zosyn IV. Lab Data Attestation: I reviewed the patient's lab results. Radiography Diagnostic Testing: Three-view x-rays of the left wrist obtained interpreted by myself no evidence of fracture dislocation. Patient had degenerative changes and arthritic changes noted. Radiology in agreement. Three-view x-rays of the left hand obtained interpreted by myself as no obvious fractures or dislocations but did have significant degenerative and arthritic changes. Radiology agreed and felt there may be changes of crystalline arthropathy. Discharge Plan Dx/Rx/DC Orders Clinical Impression: Cellulitis, History of hypertension, Left wrist pain Disposition Disposition: Acute Care [facility]
[2024-11-08] MEDS: Lidocaine 1% (20 ml mdv) 20 ML Vial 10 ML INFILT (18:40)
--- NOTE | 2024-11-08 18:53 | EX.PCM.CON.S ---
Assessment & Plan Assessment/Plan (1) Swelling of joint of left wrist: PLAN: Concern for septic arthritis versus an inflammatory arthritis v. trauma Given concern for septic joint by ED and history of inflammatory arthritis (in the setting of no reported trauma), I recommended joint tap. I talked the patient about the risks, benefits, and alternatives to aspiration of the left wrist joint. I talked to him about how this could be both diagnostic and therapeutic. He elected to proceed. Hemarthrosis identified (See photo) which was sent to the lab for cell studies and cultures. I am going to recommend admission to medicine for IV antibiotics empirically. He was in agreement. I am suspicious for trauma rather than an infection (patient may not have realized that he bumped his wrist?). Plan for empiric IV antibiotics and admission to medicine Plan for rest and elevation of the left upper extremity (blue arm elevator) I wrapped the hand/wrist with a gentle FEDERICO. Plastic surgery will follow F/u hand xray PLAN: Plan Procedure details (left wrist aspiration): Patient signed consent A timeout was performed with the nursing staff The left wrist was prepped and draped in sterile fashion, then anesthetized with 1% lidocaine. A 21-gauge needle was used to aspirate the left wrist joint through the 3/4 interval just distal to Elvis's tubercle with the patient in flexion and ulnar deviation. 2 cc of bloody fluid was removed. Patient tolerated the procedure well and a Band-Aid was applied. Blood fluid sent for cell and crystal studies, as well as cultures. HPI Consult Data Date of Consult: 11/08/24 HPI Narrative HPI Narrative: PACO WHITNEY is a 89 M with past medical history of hypertension COPD, , TIAs, and peripheral neuropathy who presents today for left wrist pain of 6 hours duration. He denies any trauma. He presented to the urgent care earlier today who referred him immediately to the emergency department. Today in the emergency department he reports left wrist pain that is sharp and improved with rest and elevation. He has a history of gout in the 1st MTP joint. He has stable vital signs and is afebrile. His white blood cell count is wnl (10). 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Last Taken ?Type albuterol sulfate 90 mcg/actuation 2 puff inhalation Q4H PRN Sob &/Or 07/05/14 04/08/19 23:00 History aerosol inhaler Wheezing 2 puffs ramipril 10 mg capsule 10 mg PO DAILY BP 07/05/14 11/08/24 History pantoprazole 40 mg tablet,delayed 40 mg PO DAILY gerd 08/21/14 11/08/24 History release cholecalciferol (vitamin D3) 25 3,000 unit PO BID Supplement 11/23/14 11/08/24 History mcg (1,000 unit) tablet tamsulosin 0.4 mg capsule 0.4 mg PO QHS Prostate 11/23/14 11/07/24 History budesonide-formoterol HFA 160 2 puff inhalation BID Breathing 06/28/18 04/08/19 08:00 History mcg-4.5 mcg/actuation aerosol 1 puff inhaler fenofibrate 160 mg tablet 160 mg PO DAILY cholesterol 04/10/19 11/08/24 History albuterol sulfate 2.5 mg/3 mL 2.5 mg continuous nebulization Q4H 11/08/24 Unknown History (0.083 %) solution for nebulization PRN wheezing benzonatate 100 mg capsule 200 mg PO TID PRN cough 11/08/24 11/07/24 History gabapentin 600 mg tablet 600 mg PO TID 11/08/24 11/08/24 History latanoprost 0.005 % eye drops 1 drp ophthalmic (eye) DAILY 11/08/24 11/08/24 History loperamide 2 mg capsule 2 mg PO Q2H PRN Diarrhea 11/08/24 Unknown History Allergy/AdvReac Type Severity Reaction Status Date / Time cerivastatin sodium (From Allergy Severe Other Verified 11/08/24 18:02 Baycol) gemfibrozil (From Lopid) AdvReac Other Verified 11/08/24 18:02 meperidine (From Demerol) AdvReac Other Verified 11/08/24 18:02 Surgical History Total knee replacement status History of colonoscopy (~03/2019) History of esophagogastroduodenoscopy (EGD) (~03/2019) History of back surgery History of detached retina repair Status post vasectomy History of cholecystectomy History of left knee replacement History of back surgery Social History Smoking Status: Never smoker Physical Exam Narrative Left upper Extremity Inspection: Arthritic hands. Redness and swelling of the left wrist. Some swelling on the dorsal/radial side of the thenar eminence consistent with hematoma (it is not warm or indurated as an abscess would be). Palpation: Pain with axial loading of the left wrist. Motor: Able to bend and extend all MP, PIP, and DIP joints. 5 out of 5 tyre retreader strength. Sensory: Intact to light touch on the radial and ulnar borders. Vascular: Finger tips are warm and well perfused with <2 second capillary refill. Const alert and oriented x3 Lab / Micro Data 11/08/24 18:28 11/08/24 18:28 Charges/Coding Multi Select Codes Visit Charges Office Visit/Consults: 90183 OV L5 New 60min (This visit took greater than 60 minutes (history, physical exam, review of imaging). Procedure performed as well)
[2024-11-08 19:02] VITALS: BP 118/71; PULSE 87; RESP 18; TEMP 36.8; O2SAT 96
[2024-11-08 19:09] LABS: Absolute Lymphocyte Count 1.96 X10^3/uL (0.83-4.51); Absolute Neutrophil Count 6.9 X10^3/uL (2.0-7.7); Basophil# 0.06 X10^3/uL; Basophil% 0.6 % (0-1); Eosinophil# 0.18 X10^3/uL; Eosinophils% 1.8 % (0-5); Hemoglobin 14.3 g/dL (13.0-16.5); Lymphocyte # 1.96 X10^3/ul (0.83-4.51); Lymphocyte % 19.5 % (19-41); Mean Corp Hgb Conc 33.3 g/dL (32-36); Mean Corpuscular Hgb 31.7 pg (27.0-32.0); Mean Corpuscular Volume 95.3 fL (80-94); Mean Platelet Vol. 9.8 fl (6.2-12.0); Monocyte# 0.94 X10^3/uL; Monocyte% 9.4 % (0-10); NRBC Flagged by Analyzer 0 % (0-5); Neutrophil # 6.86 X10^3/uL (2.7-7.7); Neutrophil % 68.3 % (47-70); Platelet Count 233 K/mm3 (150-450); RBC Distribution Width CV 13.9 % (11.6-14.6); RBC Distribution Width SD 49.1 fl (35.1-43.9); Red Blood Count 4.51 M/mm3 (4.6-6.2)
[2024-11-08 19:34] LABS: Erythrocyte Sedimentation Rate < 1 mm/hr (0-20)
--- NOTE | 2024-11-08 19:37 | RAD_ITS ---
PROCEDURE: HAND MIN 3 VIEWS 11/08/2024 REASON FOR EXAM: WRIST PAIN (POSSIBLE SEPTIC ARTHRITIS) TECHNIQUE: Three views of the left hand COMPARISON: None FINDINGS: See impression RAD/Hand Min 3 Views IMPRESSION: Negative for acute displaced fracture or dislocation. Severe osteopenia. 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 Marked diffuse soft tissue swelling about the wrist. Reading Location: [facility]
--- NOTE | 2024-11-08 19:37 | RAD_ITS ---
EXAM: Left wrist radiographs CLINICAL HISTORY: Pain, swelling COMPARISON: None TECHNIQUE: Three views of the left wrist FINDINGS: See impression RAD/Wrist min 3 Views IMPRESSION: Negative for acute displaced fracture or dislocation. Severe arthritic changes of the wrist including [id number] articulation, subcortical cysts/erosions and significant osseous remodeling concerning for un derlying crystalline/inflammatory arthropathy. Severe diffuse soft tissue swelling about the wrist. No cortical destruction. Osteopenia. Reading Location: [facility]
[2024-11-08 19:47] VITALS: BP 118/71; PULSE 87; RESP 18; TEMP 36.8; O2SAT 96
[2024-11-08 19:51] LABS: Anion Gap 10 (5-15); BUN 37 mg/dL (4-19); BUN/Creat Ratio 29.3 RATIO (10-20); CRP 5.25 mg/L (0.0-3.0); Calcium,Total 9.5 mg/dL (7.6-11.0); Carbon Dioxide 22.8 mmol/L (21.0-32.0); Chloride 108 mmol/L (98-108); Creatinine, Serum 1.26 mg/dL (0.70-1.20); EST Glomerular Filtration Rate 55 (>60); Estimated Creatinine Clearance 45.77 ml/min (50-250); Glucose 116 mg/dL (70-99); Potassium 4.6 mmol/L (3.3-5.1); Sodium Level 141 mmol/L (133-145); Uric Acid 4.5 mg/dL (3.5-7.2)
[2024-11-08 20:00] VITALS: BP 118/71; PULSE 70; RESP 14; TEMP 36.3; O2SAT 98
--- NOTE | 2024-11-08 20:01 | PCM.HP.STD ---
[facility] - General General Date of Admission: 11/08/24 Date of Service: 11/08/24 Chief Complaint: Left Wrist Redness, Swelling, Pain and Fever. HPI Narrative PACO HERNANDEZ, is a 89 M with a past medical history of essential hypertension; on ramipril, hypertriglyceridemia; on fenofibrate, overweight; with BMI of 29.2 this admission, history of asthma/COPD; on budesonide-formoterol twice daily, history of TIA; with vertebrobasilar artery syndrome, history of bilateral carotid stenosis, PAD, history of AAA, peripheral neuropathy; on gabapentin 3 times daily, glaucoma; on latanoprost eyedrops, history of detached retina; s/p repair, BPH; on tamsulosin, history of vasectomy, history of renal cyst, history of renal calculi, history of cholecystectomy, history of lower GI bleed due to diverticular hemorrhage; s/p panendoscopy (2019), GERD; on pantoprazole, OA; s/p Left TKR along with history of back surgery and history of gout; affecting his first MTP joint who presents to [facility] ER complaining of Left wrist redness, swelling, pain and fever. Mr. Hernandez reports his symptoms began approximately 6 hours prior to admission with the abrupt-onset of redness and swelling around his Left wrist. He denies recent trauma or similar previous episodes. He initially went to urgent care and was noted to have a low-grade fever of 99.5 ?F and was then instructed to come to the ER for further evaluation and treatment. He admits to lethargy and worsening Left wrist pain that is sharp, moderate and made worse with movement. He denies associated chills, sweats, weight loss, changes in vision, runny nose, sore throat, ear pain, chest pain, heart racing, palpitations, shortness of breath, cough, wheezing, abdominal pain, nausea, vomiting, diarrhea, dysuria, hematuria, headache or rash. In the ER he was diagnosed with Left wrist Cellulitis and was also suspected to have septic arthritis of the Left wrist with the ER physician then contacting Dr. Rocha of the surgical service who performed arthrocentesis of the Left wrist joint with the patient noted to have hemarthrosis with ~2 cc of bloody fluid removed with cultures, crystal studies and other fluid analysis pending at this time with an elevated CRP of 5.25 mg/L and a normal serum uric acid of 4.5 mg/dL. He was also noted to have laboratory evidence of Dehydration evidenced by BUN/creatinine ratio of 29.3 present on admission. He was then empirically treated with IV piperacillin-tazobactam and then transferred to the general medical floor for ongoing care for stay that is expected to extend beyond 2 midnights. [facility] Medical History PAD (peripheral artery disease) Renal cyst Vertebrobasilar artery syndrome Diverticulosis Kidney stone Lung nodule AAA (abdominal aortic aneurysm) Bilateral carotid artery stenosis Asthma Arthritis Diverticular hemorrhage Lower GI bleed BPH (benign prostatic hyperplasia) GERD (gastroesophageal reflux disease) Peripheral neuropathy History of gastrointestinal bleeding Hx-TIA (transient ischemic attack) Chronic obstructive lung disease HTN (hypertension), benign Home Medications ?Medication ?Instructions ?Recorded ?Last Taken ?Type albuterol sulfate 90 mcg/actuation 2 puff inhalation Q4H PRN Sob &/Or 07/05/14 04/08/19 23:00 History aerosol inhaler Wheezing 2 puffs ramipril 10 mg capsule 10 mg PO DAILY BP 07/05/14 11/08/24 History pantoprazole 40 mg tablet,delayed 40 mg PO DAILY gerd 08/21/14 11/08/24 History release cholecalciferol (vitamin D3) 25 3,000 unit PO BID Supplement 11/23/14 11/08/24 History mcg (1,000 unit) tablet tamsulosin 0.4 mg capsule 0.4 mg PO QHS Prostate 11/23/14 11/07/24 History budesonide-formoterol HFA 160 2 puff inhalation BID Breathing 06/28/18 04/08/19 08:00 History mcg-4.5 mcg/actuation aerosol 1 puff inhaler fenofibrate 160 mg tablet 160 mg PO DAILY cholesterol 04/10/19 11/08/24 History albuterol sulfate 2.5 mg/3 mL 2.5 mg continuous nebulization Q4H 11/08/24 Unknown History (0.083 %) solution for nebulization PRN wheezing benzonatate 100 mg capsule 200 mg PO TID PRN cough 11/08/24 11/07/24 History gabapentin 600 mg tablet 600 mg PO TID 11/08/24 11/08/24 History latanoprost 0.005 % eye drops 1 drp ophthalmic (eye) DAILY 11/08/24 11/08/24 History loperamide 2 mg capsule 2 mg PO Q2H PRN Diarrhea 11/08/24 Unknown History Allergy/AdvReac Type Severity Reaction Status Date / Time cerivastatin sodium (From Allergy Severe Other Verified 11/08/24 18:02 Baycol) gemfibrozil (From Lopid) AdvReac Other Verified 11/08/24 18:02 meperidine (From Demerol) AdvReac Other Verified 11/08/24 18:02 Surgical History Total knee replacement status History of colonoscopy (~03/2019) History of esophagogastroduodenoscopy (EGD) (~03/2019) History of back surgery History of detached retina repair Status post vasectomy History of cholecystectomy History of left knee replacement History of back surgery Social History Smoking Status: Never smoker ROS ROS Narrative Review of Systems: Constitutional: Patient admits to fever as per HPI but denies chills or weight loss. Eyes: Patient denies changes in vision or discharge from eyes. ENT: Patient denies runny nose, sore throat or ear pain. Resp: Patient denies shortness of breath or cough. CV: Patient denies chest pain, palpitations, heart racing or lower extremity edema. GI: Patient denies abdominal pain, nausea, vomiting, diarrhea or constipation. : Patient denies dysuria, hematuria urinary frequency. MSK: Patient admits to Left wrist pain that is sharp and made worse with movement as per HPI. Skin: Patient admits to redness over the dorsal aspect of the Left wrist but he denies rash, abscess, wounds or jaundice. Psych: Patient denies symptoms of uncontrolled depression or anxiety. Neuro: Patient denies headache, paresthesias or focal neurologic deficits. Allergy: Patient denies lip swelling, tongue swelling or urticaria. Hematology: Patient denies easy bleeding or easy bruisability. Endocrinology: Patient denies polyuria, polydipsia, polyphagia or heat/cold intolerance. 14 point ROS otherwise negative save for positives noted above in HPI. Vital Signs Vital Signs Vital Signs: 11/08/24 17:59 11/08/24 19:02 11/08/24 19:47 Temperature 99.5 F H 98.2 F 98.2 F Temperature Source Oral Oral Pulse Rate 86 87 87 Respiratory Rate 20 H 18 18 Blood Pressure 124/72 H 118/71 118/71 Blood Pressure Mean 89 86 86 Pulse Ox 94 96 96 Oxygen Delivery Method Room Air Weight Weight: 198 lb Body Mass Index (BMI) 29.2 Physical Exam Const alert, oriented x3, no apparent distress, average body habitus and healthy appearing General Appearance: cooperative HEENT normocephalic, head/scalp atraumatic, hearing grossly normal bilaterally and moist oral mucous membranes Eyes PERRL, EOMs intact bilaterally and conjunctivae normal Neck no lymphadenopathy, supple and no JVD Resp normal respiratory effort, no retractions, no use of accessory muscles and clear to auscultation bilaterally Cardio regular rate and regular rhythm GI normal to inspection, nondistended, normoactive bowel sounds, soft to palpation, non-tender and non-distended Extremity Extremity Narrative: Patient has erythema and edema over the dorsal aspect of the Left wrist extending to the base of the left thumb with subtle cellulitic changes involving the area of the radial portion of the wrist onto the dorsum of the hand. He was also noted to have good range of motion with flexion and extension of the wrist but with pain noted. Patient noted to have advanced chronic arthritic changes to both the hand and the wrist. Skin Skin Narrative: Patient has erythema and edema over the dorsal aspect of the Left wrist extending to the base of the left thumb with subtle cellulitic changes involving the area of the radial portion of the wrist onto the dorsum of the hand. Neuro oriented x3, CN's II-XII intact bilaterally, moves all extremities and no focal motor deficits Sensorium / Orientation: awake, alert, oriented to person, oriented to place and oriented to time Speech: speech normal Psych affect normal Results Medical Records Data Attestation: I reviewed the patient's medical records Lab / Micro Data Attestation: I reviewed the patient's lab results. 11/08/24 18:28 11/08/24 18:28 Labs: Laboratory Results - last 24 hr 11/08/24 18:28: WBC 10.0, RBC 4.51 L, Hgb 14.3, Hct 43.0, MCV 95.3 H, MCH 31.7, MCHC 33.3, RDW Std Deviation 49.1 H, RDW Coeff of Nohemi 13.9, Plt Count 233, MPV 9.8, Immature Gran % (Auto) 0.400, Neut % (Auto) 68.3, Lymph % (Auto) 19.5, [place] % (Auto) 9.4, Eos % (Auto) 1.8, Baso % (Auto) 0.6, Absolute Neuts (auto) 6.9, Absolute Lymphs (auto) 1.96, Nucleated RBC % 0, ESR < 1, Sodium 141, Potassium 4.6, Chloride 108, Carbon Dioxide 22.8, Anion Gap 10, BUN 37 H, Creatinine 1.26 H, Estim Creat Clear Calc 45.77 L, Est GFR (MDRD) Non-Af 55 L, BUN/Creatinine Ratio 29.3 H, Glucose 116 H, Uric Acid 4.5, Calcium 9.5, C-React Prot Ext Range 5.25 H Assessment & Plan Assessment/Plan (1) Cellulitis: QUALIFIERS: Site of cellulitis: extremity Site of cellulitis of extremity: upper extremity Laterality: left Qualified Code(s): L03.114 - Cellulitis of left upper limb (2) Swelling of joint of left wrist: (3) Left wrist pain: (4) Gout: QUALIFIERS: Gout site: unspecified site Gout etiology: unspecified cause Chronicity: unspecified Qualified Code(s): M10.9 - Gout, unspecified (5) Dehydration: (6) Overweight (BMI 25.0-29.9): PLAN: Plan 1. Left wrist Cellulitis and was also suspected to have septic arthritis of the Left wrist in the setting of previously known Gout with associated Pain and Swelling - Admit to general medical floor. Continue empiric IV piperacillin-tazobactam began in the ER and await culture and sensitivity data including fluid analysis from recent arthrocentesis. General surgical consultation by Dr. Rocha is greatly appreciated. Acetaminophen as needed for [id number] (level 1-5/10) pain or fever. Give morphine IV as needed for severe (level 6-10/10) pain. 2. Dehydration evidenced by BUN/creatinine ratio of 29.3 present on admission complicating #1 - Give volume resuscitation and recheck renal indices daily to confirm improvement. 3. Overweight; with BMI of 29.2 this admission compounding #1 & #2 - Weight loss will be recommended. Check TSH. 4. Essential hypertension; on ramipril - Blood pressure currently well-controlled on this agent which will be continued. 5. Hypertriglyceridemia; on fenofibrate - Maintain current treatment check lipid profile. 6. History of asthma/COPD; on budesonide-formoterol twice daily - Stable no evidence of acute flare at this time. Resume budesonide-formoterol twice daily plus give as needed albuterol nebulizers. 7. History of TIA; with vertebrobasilar artery syndrome - Noted. 8. History of bilateral carotid stenosis - Noted. 9. PAD - Stable. 10. History of AAA - Noted with no complaints related to this issue at this time. 11. Peripheral neuropathy; on gabapentin 3 times daily - Continue current regimen. 12. Glaucoma; on latanoprost eyedrops - Resume latanoprost as previous. 13. History of detached retina; s/p repair - Noted. 14. BPH; on tamsulosin - Maintain current therapy. 15. History of vasectomy - Noted for the sake of completeness. 16. History of renal cyst - Noted. 17. History of renal calculi - Noted with no active complaints related to this issue. 18. History of cholecystectomy - Noted. 19. History of lower GI bleed due to diverticular hemorrhage; s/p panendoscopy (2019) - Noted no signs of bleeding at this time. 20. GERD; on pantoprazole - Resume PPI. 21. OA; s/p Left TKR along with history of back surgery - Give acetaminophen as needed as per scale noted in #1. 22. DVT prophylaxis - Heparin 5,000U sq BID plus SCD's. Total time: Approximately (but not less than) 55 minutes. Charges/Coding Visit Charges Inpatient E&M: 00381 Init Hosp L2
[2024-11-08] MEDS: Piperacil/Tazobactam 4.5 GM in 0.9% Normal Saline (100mL MB+) 100 ML IV (20:02)
[2024-11-08] MEDS: Ondansetron 4 MG/2 ML Vial IV (20:03)
[2024-11-08] MEDS: Morphine 4 MG/ML Syringe IV (20:03)
[2024-11-08 20:07] LABS: Pathologist Comment May follow
[2024-11-08 21:03] VITALS: RESP 15; BMI 28.8
[2024-11-08 21:09] VITALS: BP 114/65; PULSE 76; RESP 20; TEMP 36.4; O2SAT 97
[2024-11-08 21:12] LABS: Magnesium 1.6 mg/dL (1.5-2.2)
[2024-11-08] MEDS: 0.9% Normal Saline (1000mL) 1,000 ML 100 ML IV (21:35)
[2024-11-08 21:49] LABS: RBC /Synovial Fluid 2.743 10^6/uL (0); Synovial Fld Mononuclear WBC # 1.409 10^3/ul; Synovial Fld Mononuclear WBC % 35.4 %; Synovial Fld Polynuclear WBC # 2.572 10^3/uL; Synovial Fld Polynuclear WBC % 64.6 %
[2024-11-08 22:20] LABS: AUTO B FLUID DILUENT BKGD CT WBC <0.1 RBC <0.01 (W<.1,R<.01)
[2024-11-08] MEDS: Acetaminophen 325 MG Tablet 650 MG PO (22:21)
[2024-11-08] MEDS: Gabapentin 600 MG Tablet PO (22:21)
[2024-11-08 22:24] LABS: CRYSTALS, BODY FLUID NO CRYSTALS SEEN
[2024-11-08 22:26] LABS: Color / Synovial Fluid RED (Pale Yellow); Source / Synovial Fluid LEFT WRIST ASPIRATE
[2024-11-08] MEDS: Tamsulosin HCl 0.4 MG Capsule PO (22:26)
[2024-11-08] MEDS: Lactobacillis Acidophilus 1 CAP PO (22:26)
[2024-11-08 22:27] LABS: Appearance /Synovial Fluid Opaque (CLEAR)
[2024-11-08] MEDS: Cholecalciferol (VIT D3) 25 MCG TABLET (1,000 UNITS) 75 MCG PO (22:27)
[2024-11-08] MEDS: Heparin Injection (Vial) 5,000 UNIT/ML VIAL 5000 UNIT SC (22:27)
[2024-11-08 22:49] LABS: Lymph 40 %; Monocyte /Synovial Fluid 14 %; Neutrophil 46 % (0-25)
[2024-11-08 22:51] LABS: Body Fluid QC Type(s) BF2Q,BF3Q
[2024-11-08 22:52] LABS: Source- Body Fluid SYNOVIAL
[2024-11-09] VITALS (7 sets, daily range): BP systolic 110–124; BP diastolic 52–60; PULSE 57–84; RESP 14–20; TEMP 36.5–37.4; O2SAT 92–99; BMI 29.4
[2024-11-09] MEDS: Morphine 2 MG/ML Syringe IV ×5 (00:07→20:50)
[2024-11-09 05:37] LABS: Absolute Lymphocyte Count 1.82 X10^3/uL (0.83-4.51); Absolute Neutrophil Count 5.8 X10^3/uL (2.0-7.7); Basophil# 0.05 X10^3/uL; Basophil% 0.6 % (0-1); Eosinophil# 0.19 X10^3/uL; Eosinophils% 2.2 % (0-5); Hematocrit 39.5 % (40-54); Hemoglobin 13.2 g/dL (13.0-16.5); Lymphocyte # 1.82 X10^3/ul (0.83-4.51); Lymphocyte % 20.8 % (19-41); Mean Corp Hgb Conc 33.4 g/dL (32-36); Mean Corpuscular Hgb 32.3 pg (27.0-32.0); Mean Corpuscular Volume 96.6 fL (80-94); Mean Platelet Vol. 9.8 fl (6.2-12.0); Monocyte# 0.85 X10^3/uL; Monocyte% 9.7 % (0-10); NRBC Flagged by Analyzer 0 % (0-5); Neutrophil # 5.81 X10^3/uL (2.7-7.7); Neutrophil % 66.4 % (47-70); Platelet Count 196 K/mm3 (150-450); RBC Distribution Width CV 13.9 % (11.6-14.6); RBC Distribution Width SD 49.5 fl (35.1-43.9); Red Blood Count 4.09 M/mm3 (4.6-6.2); White Blood Count 8.8 K/mm3 (4.4-11.0)
[2024-11-09] MEDS: Piperacil/Tazobactam 3.375 GM in 0.9% Normal Saline (50mL MB+) 50 ML IV ×3 (06:16→21:20)
[2024-11-09] MEDS: Gabapentin 600 MG Tablet PO ×3 (06:16→21:11)
[2024-11-09 06:21] LABS: ALB/GLOB Ratio 1.5 RATIO (0.9-2.4); AST(SGOT) 24 U/L (<=37); Alanine Aminotransfer ALT/SGPT 22 U/L (<=46); Albumin, Serum 3.2 g/dL (3.4-4.8); Alkaline Phosphatase 60 U/L (40-129); Anion Gap 10 (5-15); BUN 32 mg/dL (4-19); BUN/Creat Ratio 26.9 RATIO (10-20); Calcium,Total 8.8 mg/dL (7.6-11.0); Carbon Dioxide 23.1 mmol/L (21.0-32.0); Chloride 107 mmol/L (98-108); Cholesterol 103 mg/dL (<=200); Creatinine, Serum 1.17 mg/dL (0.70-1.20); EST Glomerular Filtration Rate 60 (>60); Estimated Creatinine Clearance 49.39 ml/min (50-250); Globulin 2.1 g/dL (2.2-4.2); Glucose 88 mg/dL (70-99); High Density Lipoprotein 29 mg/dL; Low Density Lipoprotein Calc. 43 mg/dL; Phosphorus 3.6 mg/dL (2.7-4.5); Potassium 4.1 mmol/L (3.3-5.1); Protein, Total 5.3 g/dL (5.9-8.4); Sodium Level 140 mmol/L (133-145); Total Bilirubin 0.71 mg/dL (0.00-1.30); Triglycerides 155 mg/dL; Very Low Density Lipoprotein 31 mg/dL (5-40); cholesterol:hdl ratio screen 3.52
[2024-11-09] MEDS: Albuterol 2.5 MG/3 ML VIAL.NEB. INHALATION (06:57)
[2024-11-09] MEDS: Budesonide Respules 0.5 MG/2 ML AMPUL.NEB. INHALATION ×2 (06:57→19:40)
[2024-11-09] MEDS: Ascorbic Acid 500 MG Tablet 1000 MG PO ×2 (08:32→17:12)
--- NOTE | 2024-11-09 09:39 | WOUNDNOTE ---
In to assess the left arm/hand with Dr Rocha. FEDERICO wrap removed. there is still some redness noted. moderate edema noted. pt has not been keeping the arm elevated. applied a light FEDERICO wrap to the hand and forearm and placed arm on an arm elevator. educated patient on the importance of keeping the hand and arm elevated as much as possible. Pt states understanding. will monitor.
--- NOTE | 2024-11-09 09:49 | PCM.PN.HOSP ---
Reason for Visit Reason for Visit: Diagnoses Overweight (11/08/24) Dehydration (11/08/24) Cellulitis of left upper limb (11/08/24) Gout, unspecified (11/08/24) Effusion, left wrist (11/08/24) Pain in left wrist (11/08/24) Objective Data Objective Data Vital Signs: Vital Signs Temp Pulse Resp BP Pulse Ox O2 Del Method 98.1 F 68 16 110/59 L 93 Room Air 11/09/24 08:22 11/09/24 08:22 11/09/24 08:22 11/09/24 08:22 11/09/24 08:22 11/09/24 08:22 Oxygen Delivery Method Room Air Weight: 198 lb 13.711 oz Body Mass Index (BMI) 29.4 Intake & Output: Intake and Output for Last 24 Hours 11/07/24 11/08/24 11/09/24 23:59 23:59 23:59 Intake Total 100 / 200 100 / 100 Output Total 450 / 450 Balance 100 / 200 -350 / -350 Lab / Micro Data 11/09/24 04:20 11/09/24 04:20 Labs: Laboratory Results - last 24 hr 11/08/24 18:28: WBC 10.0, RBC 4.51 L, Hgb 14.3, Hct 43.0, MCV 95.3 H, MCH 31.7, MCHC 33.3, RDW Std Deviation 49.1 H, RDW Coeff of Nohemi 13.9, Plt Count 233, MPV 9.8, Immature Gran % (Auto) 0.400, Neut % (Auto) 68.3, Lymph % (Auto) 19.5, [place] % (Auto) 9.4, Eos % (Auto) 1.8, Baso % (Auto) 0.6, Absolute Neuts (auto) 6.9, Absolute Lymphs (auto) 1.96, Nucleated RBC % 0, ESR < 1, Sodium 141, Potassium 4.6, Chloride 108, Carbon Dioxide 22.8, Anion Gap 10, BUN 37 H, Creatinine 1.26 H, Estim Creat Clear Calc 45.77 L, Est GFR (MDRD) Non-Af 55 L, BUN/Creatinine Ratio 29.3 H, Glucose 116 H, Uric Acid 4.5, Calcium 9.5, Magnesium 1.6, C-React Prot Ext Range 5.25 H, TSH 2.530 11/08/24 19:21: Fluid Source Cancelled, Fluid Color Cancelled, Fluid Appearance Cancelled, Fluid WBC Cancelled, Fluid RBC Cancelled, Fluid Tot Cell Count Cancelled, Fld Polynuclear WBCs # Cancelled, Fld Polynuclear WBCs % Cancelled, Fluid Mononuclear WBCs Cancelled, Fld Mononuclear WBCs % Cancelled, Fluid Neutrophils Cancelled, Fluid Lymphocytes Cancelled, Fluid Monocytes Cancelled, Fluid Plasma Cells Cancelled, Fluid Macrophages Cancelled, Fld Mesothelial Cells Cancelled, Fluid Other Cells Cancelled, Fluid Crystals NO CRYSTALS SEEN, Fluid Crystal Source SYNOVIAL, Fl Pathologist Comment Cancelled, Fluid Comment 2 Cancelled, Synovial Source LEFT WRIST ASPIRATE, Synovial Color RED, Synovial Appearance [place]pa[place], Synovial WBC 3.9810 H, Synovial RBC 2.743 H, Synovial Tot Cell Ct 4.0010 H, Synov Polynuclear WBCs 2.572, Synov Mononuclear WBCs 1.409, Synovial Neutrophils 46 H, Synovial Lymphocytes 40, Synovial Monocytes 14, Synovial Polynuclear % 64.6, Synovial Mononuclear % 35.4, Synovial Path Comment May follow 11/09/24 04:20: WBC 8.8, RBC 4.09 L, Hgb 13.2, Hct 39.5 L, MCV 96.6 H, MCH 32.3 H, MCHC 33.4, RDW Std Deviation 49.5 H, RDW Coeff of Nohemi 13.9, Plt Count 196, MPV 9.8, Immature Gran % (Auto) 0.300, Neut % (Auto) 66.4, Lymph % (Auto) 20.8, [place] % (Auto) 9.7, Eos % (Auto) 2.2, Baso % (Auto) 0.6, Absolute Neuts (auto) 5.8, Absolute Lymphs (auto) 1.82, Nucleated RBC % 0, Sodium 140, Potassium 4.1, Chloride 107, Carbon Dioxide 23.1, Anion Gap 10, BUN 32 H, Creatinine 1.17, Estim Creat Clear Calc 49.39 L, Est GFR (MDRD) Non-Af 60, BUN/Creatinine Ratio 26.9 H, Glucose 88, Calcium 8.8, Phosphorus 3.6, Total Bilirubin 0.71, AST 24, ALT 22, Alkaline Phosphatase 60, Total Protein 5.3 L, Albumin 3.2 L, Globulin 2.1 L, Albumin/Globulin Ratio 1.5, Triglycerides 155, Cholesterol 103, LDL Cholesterol, Calc 43, VLDL Cholesterol 31, HDL Cholesterol 29 L, Cholesterol/HDL Ratio 3.52 Micro: Microbiology 11/08/24 19:21 Fluid - Synovial (joint) Body Fluid Culture - Preliminary No growth-Final to follow Radiography Diagnostic Testing: Radiology Impression Hand X-Ray 11/08/24 19:37 IMPRESSION: Negative for acute displaced fracture or dislocation. Severe osteopenia. Advanced arthritic changes throughout the hand and carpus concerning for underlying inflammatory/crystalline arthropathy. 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 Marked diffuse soft tissue swelling about the wrist. Reading Location: [facility] Wrist X-Ray 11/08/24 19:37 IMPRESSION: Negative for acute displaced fracture or dislocation. Severe arthritic changes of the wrist including fria-fx-assy articulation, subcortical cysts/erosions and significant osseous remodeling concerning for underlying crystalline/inflammatory arthropathy. Severe diffuse soft tissue swelling about the wrist. No cortical destruction. Osteopenia. Reading Location: [facility] Physical Exam Narrative Seen and examined Patient admitted with left hand cellulitis. Was seen by plastic surgeon Dr. Galeana and aspirated about 2 mL pus. Sent for culture. Patient denies any history of prior cellulitis in the hand, foreign body or any animal bite or inciting factor. It is a spontaneous onset. Patient has intermittent history of about 10 pack years of smoking. He also worked in [employer] environment. Has history of COPD Physical exam General: Alert, Oriented x3, Cooperative HEENT: Atraumatic, PERRLA, EOMI, Normocephalic Oral: No Gingival or Mucosal Lesions/ Ulcerations Neck: Supple, No JVD, Negative Carotid Bruits Chest wall/Lungs: Air entry diminished in bilateral lung bases. Mild bilateral expiratory rhonchi Cardiovascular: Regular rate, Regular Rhythm, Normal S1, Normal S2, No M/G/R Abdomen: Bowel Sounds Present, Soft, Non Tender, Non-Distended : No dysuria. No renal angle tenderness. No suprapubic tenderness. Extremities: No edema, Capillary Refill Less than 3 Seconds Skin: Redness swelling induration of left hand mainly extending proximally from left thumb to radial aspect of wrist. Covered with dressing. Musculoskeletal: Bony deformity/arthritic changes of right wrist, right knee suggestive of degenerative arthritis. Left knee TKR. Neurological: Cranial nerves II-XII grossly intact, DTR 2+/4. No acute focal neurological deficit. Psych/Mental Status: Normal Affect, Appropriate. Assessment & Plan Assessment/Plan (1) Cellulitis: QUALIFIERS: Laterality: left Site of cellulitis: extremity Site of cellulitis of extremity: upper extremity Qualified Code(s): L03.114 - Cellulitis of left upper limb (2) Swelling of joint of left wrist: (3) Left wrist pain: (4) Gout: QUALIFIERS: Chronicity: unspecified Gout etiology: unspecified cause Gout site: unspecified site Qualified Code(s): M10.9 - Gout, unspecified (5) Dehydration: (6) Overweight (BMI 25.0-29.9): PLAN: Plan This 89-year-old gentleman is being admitted for swelling pain redness of his left wrist started about 6 hours prior to presentation. No trauma. Low-grade fever Tmax 99.5 Fahrenheit. 1. Left wrist Cellulitis, concern for septic arthritis versus inflammatory/crystal induced arthritis: [facility] Patient had joint tap, no crystals on the bloody joint aspirate. Left wrist and hand wrapped. Left upper extremity elevation with arm elevation. Left hand x-ray is negative for acute displaced fracture or dislocation but severe osteopenia. Advanced arthritic changes, reported concerning for inflammatory/crystalline arthropathy and superimposed severe osteoarthritis. Gram stain shows 4+ RBC, no organisms seen. Severe on broad-spectrum antibiotic IV Zosyn. Pain control. 2. CKD stage IIIb with dehydration: Patient baseline creatinine runs about 1.26-1.30. BUN elevated 37, creatinine 1.26. IV fluids given. Be creatinine improved to 1.17. 3. Overweight; with BMI of 29.2 KG per square meter 4. Essential hypertension; on ramipril -BP controlled 5. Hypertriglyceridemia; on fenofibrate. Lipid profile shows HDL 29 low but otherwise in normal range. 6. History of asthma/COPD; on budesonide-formoterol twice daily - Stable no evidence of acute flare at this time. 7. PAD - Stable. 8. Peripheral neuropathy; on gabapentin 3 times daily - Continue current regimen. 9. BPH; on tamsulosin - Maintain current therapy. 10. GERD; on pantoprazole - Resume PPI. DVT prophylaxis - Heparin 5,000U sq BID plus SCD's. Charges/Coding Visit Charges Inpatient E&M: 23967 Subs Hosp L2
--- NOTE | 2024-11-09 10:09 | PN.SURG_ITS ---
Subjective Subjective Patient doing well overall. Less pain today. LUE was not elevated overnight. Objective Data Objective Data Xrays reviewed Degenerative arthritis Vital Signs: Vital Signs Temp Pulse Resp BP Pulse Ox O2 Del Method 98.1 F 68 16 110/59 L 93 Room Air 11/09/24 08:22 11/09/24 08:22 11/09/24 08:22 11/09/24 08:22 11/09/24 08:22 11/09/24 08:22 Oxygen Delivery Method Room Air Weight: 198 lb 13.711 oz Body Mass Index (BMI) 29.4 Intake & Output: Intake and Output for Last 24 Hours 11/07/24 11/08/24 11/09/24 23:59 23:59 23:59 Intake Total 100 / 200 100 / 100 Output Total 450 / 450 Balance 100 / 200 -350 / -350 Lab / Micro Data 11/09/24 04:20 11/09/24 04:20 Labs: Laboratory Results - last 24 hr 11/08/24 18:28: WBC 10.0, RBC 4.51 L, Hgb 14.3, Hct 43.0, MCV 95.3 H, MCH 31.7, MCHC 33.3, RDW Std Deviation 49.1 H, RDW Coeff of Nohemi 13.9, Plt Count 233, MPV 9.8, Immature Gran % (Auto) 0.400, Neut % (Auto) 68.3, Lymph % (Auto) 19.5, [place] % (Auto) 9.4, Eos % (Auto) 1.8, Baso % (Auto) 0.6, Absolute Neuts (auto) 6.9, Absolute Lymphs (auto) 1.96, Nucleated RBC % 0, ESR < 1, Sodium 141, Potassium 4.6, Chloride 108, Carbon Dioxide 22.8, Anion Gap 10, BUN 37 H, Creatinine 1.26 H, Estim Creat Clear Calc 45.77 L, Est GFR (MDRD) Non-Af 55 L, BUN/Creatinine Ratio 29.3 H, Glucose 116 H, Uric Acid 4.5, Calcium 9.5, Magnesium 1.6, C-React Prot Ext Range 5.25 H, TSH 2.530 11/08/24 19:21: Fluid Source Cancelled, Fluid Color Cancelled, Fluid Appearance Cancelled, Fluid WBC Cancelled, Fluid RBC Cancelled, Fluid Tot Cell Count Cancelled, Fld Polynuclear WBCs # Cancelled, Fld Polynuclear WBCs % Cancelled, Fluid Mononuclear WBCs Cancelled, Fld Mononuclear WBCs % Cancelled, Fluid Neutrophils Cancelled, Fluid Lymphocytes Cancelled, Fluid Monocytes Cancelled, Fluid Plasma Cells Cancelled, Fluid Macrophages Cancelled, Fld Mesothelial Cells Cancelled, Fluid Other Cells Cancelled, Fluid Crystals NO CRYSTALS SEEN, Fluid Crystal Source SYNOVIAL, Fl Pathologist Comment Cancelled, Fluid Comment 2 Cancelled, Synovial Source LEFT WRIST ASPIRATE, Synovial Color RED, Synovial Appearance [place], Synovial WBC 3.9810 H, Synovial RBC 2.743 H, Synovial Tot Cell Ct 4.0010 H, Synov Polynuclear WBCs 2.572, Synov Mononuclear WBCs 1.409, S ynovial Neutrophils 46 H, Synovial Lymphocytes 40, Synovial Monocytes 14, Synovial Polynuclear % 64.6, Synovial Mononuclear % 35.4, Synovial Path Comment May follow 11/09/24 04:20: WBC 8.8, RBC 4.09 L, Hgb 13.2, Hct 39.5 L, MCV 96.6 H, MCH 32.3 H, MCHC 33.4, RDW Std Deviation 49.5 H, RDW Coeff of Nohemi 13.9, Plt Count 196, MPV 9.8, Immature Gran % (Auto) 0.300, Neut % (Auto) 66.4, Lymph % (Auto) 20.8, [place] % (Auto) 9.7, Eos % (Auto) 2.2, Baso % (Auto) 0.6, Absolute Neuts (auto) 5.8, Absolute Lymphs (auto) 1.82, Nucleated RBC % 0, Sodium 140, Potassium 4.1, Chloride 107, Carbon Dioxide 23.1, Anion Gap 10, BUN 32 H, Creatinine 1.17, E stim Creat Clear Calc 49.39 L, Est GFR (MDRD) Non-Af 60, BUN/Creatinine Ratio 26.9 H, Glucose 88, Calcium 8.8, Phosphorus 3.6, Total Bilirubin 0.71, AST 24, ALT 22, Alkaline Phosphatase 60, Total Protein 5.3 L, Albumin 3.2 L, Globulin 2.1 L, Albumin/Globulin Ratio 1.5, Triglycerides 155, Cholesterol 103, LDL Cholesterol, Calc 43, VLDL Cholesterol 31, HDL Cholesterol 29 L, Cholesterol/HDL Ratio 3.52 Micro: Microbiology 11/08/24 19:21 Fluid - Synovial (joint) Body Fluid Culture - Preliminary No growth-Final to follow Radiography Diagnostic Testing: Radiology Impression Hand X-Ray 11/08/24 19:37 IMPRESSION: Negative for acute displaced fracture or dislocation. Severe osteopenia. Advanced arthritic changes throughout the hand and carpus concerning for underlying inflammatory/crystalline arthropathy. 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 Marked diffuse soft tissue swelling about the wrist. Reading Location: [facility] Wrist X-Ray 11/08/24 19:37 IMPRESSION: Negative for acute displaced fracture or dislocation. Severe arthritic changes of the wrist including [id number] articulation, subcortical cysts/erosions and significant osseous remodeling concerning for underlying crystalline/inflammatory arthropathy. Severe diffuse soft tissue swelling about the wrist. No cortical destruction. Osteopenia. Reading Location: [facility] Physical Exam Narrative Left Upper Extremity Inspection: Some persistent swelling consistent with soft hematoma. No skin breaks and tight skin/pressure or tension. No induration or drainage. Palpation: No pain with axial loading today. Motor: Able to bend and extend all MP, PIP, and DIP joints. Sensory: Intact to light touch on the radial and ulnar borders. Vascular: Finger tips are warm and well perfused with <2 second capillary refill. Assessment & Plan Assessment/Plan (1) Swelling of joint of left wrist: PLAN: No crystals on the bloody joint aspirate. F/u cultures. LUE elevation with arm elevator today (above heart) as well as compression wrap. PSU will continue to follow. O.K. for a diet Charges/Coding Multi Select Codes Visit Charges Visit Charges: 16863 Subs Hosp L1
[2024-11-09] MEDS: Lactobacillis Acidophilus 1 CAP PO ×4 (10:42→21:11)
[2024-11-09] MEDS: Ramipril 10 MG Capsule PO (10:42)
[2024-11-09] MEDS: Heparin Injection (Vial) 5,000 UNIT/ML VIAL 5000 UNIT SC ×2 (10:42→21:11)
[2024-11-09] MEDS: Cholecalciferol (VIT D3) 25 MCG TABLET (1,000 UNITS) 75 MCG PO ×2 (10:43→21:10)
[2024-11-09] MEDS: Pantoprazole Sodium 40 MG Tablet PO (10:43)
[2024-11-09] MEDS: Fenofibrate 145 MG Tablet PO (10:43)
[2024-11-09] MEDS: 0.9% Normal Saline (1000mL) 1,000 ML 100 ML IV (12:08)
--- NOTE | 2024-11-09 14:25 | CASEMGMT ---
RN CM Face to Face with patient for initial transition planning/care coordination assessment. RN CM introduced self and role at [facility]. Patient lying in bed, alert and oriented. Patient willing to participate in assessment and is able to answer all questions appropriately. Care providers, pharmacy, and demographics verified. Strata: 2 PCP: Chidi Specialists: Sandie Bright, industrial rehabilitation consultant; [facility] Insurance: [employer] Prescription Benefit: yes Living Will/HPOA: none LNOK: Living Arrangements: Omkar lives with in a first floor apartment with no steps to enter. Patient states he is independent at home. Transportation: self, DME/HHC: Patient has shower chair, cane, walker, nebulizer, pulse ox at home. No previous HHC or SNF. Patient wishes to discharge home, denies need for home health at this time. Patient states he has no further needs or concerns at this time. CM to follow for discharge planning needs that may arise. Disposition Plan: Patient to discharge home with family support and follow-up plans in place. Layla BENNETT, RN, CM
[2024-11-09] MEDS: Acetaminophen 325 MG Tablet 650 MG PO (20:51)
[2024-11-09] MEDS: Latanoprost 0.005% 1 Bottle 1 DRP OPHTHALMIC (21:09)
[2024-11-09] MEDS: Tamsulosin HCl 0.4 MG Capsule PO (21:11)
[2024-11-10 02:48] VITALS: BP 106/57; PULSE 60; RESP 16; TEMP 36.7; O2SAT 93
[2024-11-10 04:23] LABS: Absolute Lymphocyte Count 1.91 X10^3/uL (0.83-4.51); Absolute Neutrophil Count 4.9 X10^3/uL (2.0-7.7); Basophil# 0.05 X10^3/uL; Basophil% 0.6 % (0-1); Eosinophil# 0.19 X10^3/uL; Eosinophils% 2.4 % (0-5); Hematocrit 38.7 % (40-54); Hemoglobin 12.9 g/dL (13.0-16.5); Lymphocyte # 1.91 X10^3/ul (0.83-4.51); Lymphocyte % 24.1 % (19-41); Mean Corp Hgb Conc 33.3 g/dL (32-36); Mean Corpuscular Hgb 32.2 pg (27.0-32.0); Mean Corpuscular Volume 96.5 fL (80-94); Mean Platelet Vol. 9.4 fl (6.2-12.0); Monocyte# 0.84 X10^3/uL; Monocyte% 10.6 % (0-10); NRBC Flagged by Analyzer 0 % (0-5); Neutrophil # 4.91 X10^3/uL (2.7-7.7); Neutrophil % 61.9 % (47-70); Platelet Count 181 K/mm3 (150-450); RBC Distribution Width SD 49.6 fl (35.1-43.9); Red Blood Count 4.01 M/mm3 (4.6-6.2); White Blood Count 7.9 K/mm3 (4.4-11.0)
[2024-11-10 05:30] LABS: Anion Gap 9 (5-15); BUN 23 mg/dL (4-19); BUN/Creat Ratio 19.7 RATIO (10-20); Calcium,Total 9.1 mg/dL (7.6-11.0); Carbon Dioxide 24.1 mmol/L (21.0-32.0); Chloride 105 mmol/L (98-108); Creatinine, Serum 1.19 mg/dL (0.70-1.20); EST Glomerular Filtration Rate 59 (>60); Estimated Creatinine Clearance 48.56 ml/min (50-250); Glucose 101 mg/dL (70-99); Phosphorus 3.3 mg/dL (2.7-4.5); Potassium 4.3 mmol/L (3.3-5.1); Sodium Level 137 mmol/L (133-145)
[2024-11-10 05:33] VITALS: BMI 29.7
[2024-11-10 05:40] VITALS: BP 118/62; PULSE 66; RESP 16; TEMP 37.1; O2SAT 96
[2024-11-10] MEDS: Piperacil/Tazobactam 3.375 GM in 0.9% Normal Saline (50mL MB+) 50 ML IV (05:42)
[2024-11-10] MEDS: Acetaminophen 325 MG Tablet 650 MG PO (05:42)
[2024-11-10] MEDS: Morphine 2 MG/ML Syringe IV (05:42)
[2024-11-10] MEDS: Gabapentin 600 MG Tablet PO (05:42)
[2024-11-10] MEDS: Budesonide Respules 0.5 MG/2 ML AMPUL.NEB. INHALATION (07:31)
[2024-11-10 07:32] VITALS: PULSE 82; RESP 18; O2SAT 94
--- NOTE | 2024-11-10 09:38 | PN.SURG_ITS ---
Subjective Subjective Doing well. Reports that pain has dissipated significantly from the left wrist and hand with elevation. No fevers or chills. Patient thinking back on , 08 November 2024 the date of admission and reports that he may have been carrying some grocery bags that may have caused the shear force leading to underlying hematoma. Objective Data Objective Data Vital Signs: Vital Signs Temp Pulse Resp BP Pulse Ox O2 Del Method 98.8 F 82 18 118/62 94 Room Air 11/10/24 05:40 11/10/24 07:32 11/10/24 07:32 11/10/24 05:40 11/10/24 07:32 11/10/24 07:32 Oxygen Delivery Method Room Air Weight: 200 lb 6.403 oz Body Mass Index (BMI) 29.7 Intake & Output: Intake and Output for Last 24 Hours 11/08/24 11/09/24 11/10/24 23:59 23:59 23:59 Intake Total 100 / 200 1199.79 / 1199.79 1050 / 1050 Output Total 1050 / 1050 550 / 550 Balance 100 / 200 149.79 / 149.79 500 / 500 Lab / Micro Data 11/10/24 03:56 11/10/24 03:56 Labs: Laboratory Results - last 24 hr 11/10/24 03:56: WBC 7.9, RBC 4.01 L, Hgb 12.9 L, Hct 38.7 L, MCV 96.5 H, MCH 32.2 H, MCHC 33.3, RDW Std Deviation 49.6 H, RDW Coeff of Nohemi 14.0, Plt Count 181, MPV 9.4, Immature Gran % (Auto) 0.400, Neut % (Auto) 61.9, Lymph % (Auto) 24.1, [place] % (Auto) 10.6 H, Eos % (Auto) 2.4, Baso % (Auto) 0.6, Absolute Neuts (auto) 4.9, Absolute Lymphs (auto) 1.91, Nucleated RBC % 0, Sodium 137, Potassium 4.3, Chloride 105, Carbon Dioxide 24.1, Anion Gap 9, BUN 23 H, Creatinine 1.19, Estim Creat Clear Calc 48.56 L, Est GFR (MDRD) Non-Af 59 L, BUN/Creatinine Ratio 19.7, Glucose 101 H, Calcium 9.1, Phosphorus 3.3 Micro: Microbiology 11/08/24 19:21 Fluid - Synovial (joint) Gram Stain - Final 11/08/24 19:21 Fluid - Synovial (joint) Body Fluid Culture - Preliminary No growth-Final to follow Physical Exam Narrative Left Upper Extremity Inspection: Significant improvement of left upper extremity swelling around the hand and wrist with 24 hours of elevation. There is a small soft hematoma on the radial side of the hand near the thumb base. No skin breaks and tight skin/pressure or tension. No induration or drainage. Palpation: No pain with axial loading today. Motor: Able to bend and extend all MP, PIP, and DIP joints. Sensory: Intact to light touch on the radial and ulnar borders. Vascular: Finger tips are warm and well perfused with <2 second capillary refill. Assessment & Plan Assessment/Plan (1) Swelling of joint of left wrist: PLAN: No crystals on the bloody joint aspirate. Negative cultures LUE elevation with arm elevator (above heart) as well as compression wrap. Okay for discharge today and agree with empiric course of antibiotics. Likely a hematoma secondary to small trauma. Continue elevation at home and follow-up with me in 3 days at [facility] in clinic. Charges/Coding Visit Charges Inpatient E&M: 77011 Subs Hosp L1
--- NOTE | 2024-11-10 09:40 | DCINST_ITS ---
Discharge Instructions DC O2, CPAP, BIPAP needs Home O2 Discharge instructions: No Follow Up Care Test Results: Test results from this visit will be discussed in further detail at your follow- up appointment, if applicable. Discharge Plan Admission Admit Date/Time: 11/08/24 20:32 Primary Reason for Your Visit: Left hand possible small hematoma secondary to small trauma and cellulitis Attending Provider: Riky Li Primary Care Provider: Kameron Murillo Consulting Providers: Kash Doss Instructions Additional Instructions / Restrictions: Plastic surgery discharge instructions Elevate left upper extremity above heart, especially while sleeping but during the course of the day as well. Return if left hand and wrist becomes hot and swollen or if there is any fevers or chills. Follow-up with me in clinic in [address] [facility] on Tuesday, 13 November 2024, Discharge Orders/Prescriptions Prescriptions: New polyethylene glycol 3350 [Miralax] 17 gram/dose powder 17 g PO DAILY 30 Days Qty: 510 0RF amoxicillin-pot clavulanate 875-125 mg tablet 1 tab PO BID Qty: 14 0RF Continued albuterol sulfate 1 INHALER inhaler 2 puff inhalation Q4H PRN (Reason: Sob &/Or Wheezing) ramipril 10 MG capsule 10 mg PO DAILY Patient Comments: BLOOD PRESSURE pantoprazole 40 MG tablet 40 mg PO DAILY Patient Comments: ACID REFLUX tamsulosin 0.4 MG capsule 0.4 mg PO QHS Patient Comments: PROSTATE cholecalciferol (vitamin D3) 1,000 UNIT tablet 3,000 unit PO BID budesonide-formoterol 1 INHALER inhaler 2 puff inhalation BID fenofibrate 160 MG tablet 160 mg PO DAILY gabapentin 600 mg tablet 600 mg PO TID benzonatate 100 mg capsule 200 mg PO TID PRN (Reason: cough) latanoprost 0.005 % drops 1 drp ophthalmic (eye) DAILY albuterol sulfate 2.5 mg /3 mL (0.083 %) solution for nebulization 2.5 mg continuous nebulization Q4H PRN (Reason: wheezing) Patient Comments: PT HAS NOT USED YET Discontinued loperamide 2 MG capsule 2 mg PO Q2H PRN (Reason: Diarrhea) Referrals / Follow Up: Kameron Murillo MD [Primary Care Provider] - Within 2 Weeks Dennis Rocha MD [Med Staff - Active Staff] - (Follow-up in [address] [facility] in clinic) Disposition Disposition (needs filled in before D/C Order can be placed): Home, Self Care
[2024-11-10 09:46] VITALS: BP 103/58; PULSE 71; RESP 18; TEMP 36.5; O2SAT 95
--- NOTE | 2024-11-10 09:47 | DS.PCM_ITS ---
Providers Date of Admission: 11/08/24 Date of Discharge: 11/10/24 Primary Care Physician: Dr. Kameron Murillo MD Reason For Visit: LEFT WRIST CELLULITIS WITH POSSIBLE SEPTIC Diagnosis Discharge Diagnosis (1) Swelling of joint of left wrist: Status: Acute Code(s): M25.432 - Effusion, left wrist Plan This 89-year-old gentleman is being admitted for swelling pain redness of his left wrist started about 6 hours prior to presentation. No trauma. Low-grade fever Tmax 99.5 Fahrenheit. 1. Left wrist Cellulitis, concern for septic arthritis versus inflammatory/crystal induced arthritis: [facility] Patient had joint tap, no crystals on the bloody joint aspirate. Left wrist and hand wrapped. Left upper extremity elevation with arm elevation. Left hand x-ray is negative for acute displaced fracture or dislocation but severe osteopenia. Advanced arthritic changes, reported concerning for inflammatory/crystalline arthropathy and superimposed severe osteoarthritis. Gram stain shows 4+ RBC, no organisms seen. Severe on broad-spectrum antibiotic IV Zosyn. Pain control. 11/10: Hand is wrapped. Left hand photo reviewed and shows decreased edema swelling, discoloration/purpleish discoloration from reabsorb hematoma Discharged on empiric 1 week of Augmentin 875 mg twice daily As per nursing staff, patient complained of constipation and has not moved BM for couple days. He was on Imodium as needed at home that is discontinued. Dulcolax 10 mg oral and suppository ordered. MiraLAX 17 g orally daily ordered. Follow with PCP Patient does not know why Imodium was on his home med list. 2. CKD stage IIIb with dehydration: Patient baseline creatinine runs about 1.26-1.30. BUN elevated 37, creatinine 1.26. IV fluids given. Be creatinine improved to 1.17. 11/10: Creatinine 1.19. BUN normal. 3. Overweight; with BMI of 29.2 KG per square meter 4. Essential hypertension; on ramipril -BP controlled 5. Hypertriglyceridemia; on fenofibrate. Lipid profile shows HDL 29 low but otherwise in normal range. 6. History of asthma/COPD; on budesonide-formoterol twice daily - Stable no evidence of acute flare at this time. 7. PAD - Stable. 8. Peripheral neuropathy; on gabapentin 3 times daily - Continue current regimen. 9. BPH; on tamsulosin - Maintain current therapy. 10. GERD; on pantoprazole - Resume PPI. DVT prophylaxis - Heparin 5,000U sq BID plus SCD's. Discharge medication reconciliation done. Discharge follow-up instructions completed. Discharge process discussed with the patient and all questions were answered to patient's satisfaction. Follow with PCP in 1 to 2 weeks Total time spent, exact 35 minutes on discharge meds reconciliation, examination, coordination of care with nurses and ancillary staff, review of imaging and blood test and discussion with the patient on follow-up instructions. Medications at Discharge Home Medications albuterol sulfate 90 mcg/actuation aerosol inhaler 2 puff inhalation Q4H PRN Sob &/Or Wheezing 07/05/14 ramipril 10 mg capsule 10 mg PO DAILY BP 07/05/14 pantoprazole 40 mg tablet,delayed release 40 mg PO DAILY gerd 08/21/14 cholecalciferol (vitamin D3) 25 mcg (1,000 unit) tablet 3,000 unit PO BID Supplement 11/23/14 tamsulosin 0.4 mg capsule 0.4 mg PO QHS Prostate 11/23/14 budesonide-formoterol HFA 160 mcg-4.5 mcg/actuation aerosol inhaler 2 puff inhalation BID Breathing 06/28/18 fenofibrate 160 mg tablet 160 mg PO DAILY cholesterol 04/10/19 albuterol sulfate 2.5 mg/3 mL (0.083 %) solution for nebulization 2.5 mg continuous nebulization Q4H PRN wheezing 11/08/24 benzonatate 100 mg capsule 200 mg PO TID PRN cough 11/08/24 gabapentin 600 mg tablet 600 mg PO TID 11/08/24 latanoprost 0.005 % eye drops 1 drp ophthalmic (eye) DAILY 11/08/24 amoxicillin 875 mg-potassium clavulanate 125 mg tablet 1 tab PO BID #14 tabs 11/10/24 polyethylene glycol 3350 17 gram/dose oral powder (Miralax) 17 g PO DAILY 1 month #510 grams 11/10/24 Physical Exam Narrative Seen and examined Left hand photo reviewed. Shows purplish discoloration probably from hematoma. Cellulitis looks better. Patient has intermittent history of about 10 pack years of smoking. He also worked in [employer] environment. Has history of COPD Physical exam General: Alert, Oriented x3, Cooperative HEENT: Atraumatic, PERRLA, EOMI, Normocephalic Oral: No Gingival or Mucosal Lesions/ Ulcerations Neck: Supple, No JVD, Negative Carotid Bruits Chest wall/Lungs: Air entry diminished in bilateral lung bases. Mild bilateral expiratory rhonchi Cardiovascular: Regular rate, Regular Rhythm, Normal S1, Normal S2, No M/G/R Abdomen: Bowel Sounds Present, Soft, Non Tender, Non-Distended : No dysuria. No renal angle tenderness. No suprapubic tenderness. Extremities: No edema, Capillary Refill Less than 3 Seconds Skin: Redness swelling induration of left hand mainly extending proximally from left thumb to radial aspect of wrist, improved. Covered with dressing. Musculoskeletal: Bony deformity/arthritic changes of right wrist, right knee suggestive of degenerative arthritis. Left knee TKR. Neurological: Cranial nerves II-XII grossly intact, DTR 2+/4. No acute focal neurological deficit. Psych/Mental Status: Normal Affect, Appropriate. Weight / BMI Weight Weight: 200 lb 6.403 oz Body Mass Index (BMI) 29.7 ABG / Lab / Microbiology Data 11/10/24 03:56 11/10/24 03:56 Laboratory: Laboratory Results - last 24 hr 11/10/24 03:56: WBC 7.9, RBC 4.01 L, Hgb 12.9 L, Hct 38.7 L, MCV 96.5 H, MCH 32.2 H, MCHC 33.3, RDW Std Deviation 49.6 H, RDW Coeff of Nohemi 14.0, Plt Count 181, MPV 9.4, Immature Gran % (Auto) 0.400, Neut % (Auto) 61.9, Lymph % (Auto) 24.1, Wilson % (Auto) 10.6 H, Eos % (Auto) 2.4, Baso % (Auto) 0.6, Absolute Neuts (auto) 4.9, Absolute Lymphs (auto) 1.91, Nucleated RBC % 0, Sodium 137, Potassium 4.3, Chloride 105, Carbon Dioxide 24.1, Anion Gap 9, BUN 23 H, Creatinine 1.19, Estim Creat Clear Calc 48.56 L, Est GFR (MDRD) Non-Af 59 L, BUN/Creatinine Ratio 19.7, Glucose 101 H, Calcium 9.1, Phosphorus 3.3 Microbiology: Microbiology 11/08/24 19:21 Fluid - Synovial (joint) Gram Stain - Final 11/08/24 19:21 Fluid - Synovial (joint) Body Fluid Culture - Preliminary No growth-Final to follow D/C Instructions DC O2, CPAP, BIPAP Needs Home O2 Discharge instructions: No Meaningful Use Info Meaningful Use Meaningful Use Diagnoses (Choose all that apply): None applicable Ischemic Stroke Statin Dosing Therapy Reference: STATIN DOSE THERAPY REFERENCE: * Patients > 75 years receive moderate or high dose statin therapy. * Patients 75 years or YOUNGER should receive HIGH intensity statin dose unless contraindicated. You will be required to document reason for non-treatment if statin daily dose does not meet guidelines. HIGH DOSE STATIN THERAPY DAILY Atorvastatin > than or = to 40 mg Rosuvastatin > than or = to 20 mg Amlodipine + Atorvastatin > than or = to 2.5/40 mg Ezetimibe + Simvastatin 10/80 mg Simvastatin 80mg Discharge Plan Admission Admit Date/Time: 11/08/24 20:32 Primary Reason for Your Visit: Left hand possible small hematoma secondary to small trauma and cellulitis Attending Provider: Riky Li Primary Care Provider: Kameron Murillo Consulting Providers: Kash Doss Instructions Additional Instructions / Restrictions: Plastic surgery discharge instructions Elevate left upper extremity above heart, especially while sleeping but during the course of the day as well. Return if left hand and wrist becomes hot and swollen or if there is any fevers or chills. Follow-up with me in clinic in 3 days at [facility] on Tuesday, 13 November 2024, Discharge Orders/Prescriptions Prescriptions: New polyethylene glycol 3350 [Miralax] 17 gram/dose powder 17 g PO DAILY 30 Days Qty: 510 0RF amoxicillin-pot clavulanate 875-125 mg tablet 1 tab PO BID Qty: 14 0RF Continued albuterol sulfate 1 INHALER inhaler 2 puff inhalation Q4H PRN (Reason: Sob &/Or Wheezing) ramipril 10 MG capsule 10 mg PO DAILY Patient Comments: BLOOD PRESSURE pantoprazole 40 MG tablet 40 mg PO DAILY Patient Comments: ACID REFLUX tamsulosin 0.4 MG capsule 0.4 mg PO QHS Patient Comments: PROSTATE cholecalciferol (vitamin D3) 1,000 UNIT tablet 3,000 unit PO BID budesonide-formoterol 1 INHALER inhaler 2 puff inhalation BID fenofibrate 160 MG tablet 160 mg PO DAILY gabapentin 600 mg tablet 600 mg PO TID benzonatate 100 mg capsule 200 mg PO TID PRN (Reason: cough) latanoprost 0.005 % drops 1 drp ophthalmic (eye) DAILY albuterol sulfate 2.5 mg /3 mL (0.083 %) solution for nebulization 2.5 mg continuous nebulization Q4H PRN (Reason: wheezing) Patient Comments: PT HAS NOT USED YET Discontinued loperamide 2 MG capsule 2 mg PO Q2H PRN (Reason: Diarrhea) Referrals / Follow Up: Kameron Murillo MD [Primary Care Provider] - Within 2 Weeks Dennis Rocha MD [Med Staff - Active Staff] - (Follow-up in 3 days at [facility] in clinic) Disposition Disposition (needs filled in before D/C Order can be placed): Home, Self Care Charges/Coding Visit Charges Inpatient E&M: 91501 Disch Hosp >30min
[2024-11-10] MEDS: Ascorbic Acid 500 MG Tablet 1000 MG PO (09:51)
[2024-11-10] MEDS: Cholecalciferol (VIT D3) 25 MCG TABLET (1,000 UNITS) 75 MCG PO (09:52)
[2024-11-10] MEDS: Lactobacillis Acidophilus 1 CAP PO (09:52)
[2024-11-10] MEDS: Fenofibrate 145 MG Tablet PO (09:52)
[2024-11-10] MEDS: Pantoprazole Sodium 40 MG Tablet PO (09:52)
[2024-11-10] MEDS: Heparin Injection (Vial) 5,000 UNIT/ML VIAL 5000 UNIT SC (09:52)
== END 2024-11-10 11:48 | disposition home or self-care (01) | DRG 603 ==
LOC: ED 19:59 → MS3 20:24
PROVIDERS: Surgery Plastic and Reconstructive Surgery; Admitting Provider Internal Medicine; Emergency Provider Emergency Medicine; PCP Family Medicine; Visit Provider Internal Medicine
DX: L03.114 Cellulitis of left upper limb (principal); E66.3 Overweight; J44.9 Chronic obstructive pulmonary disease, unspecified; N18.32 Chronic kidney disease, stage 3b; I73.9 Peripheral vascular disease, unspecified; I12.9 Hypertensive chronic kidney disease with stage 1 through stage 4 chronic kidney disease, or unspecified chronic kidney disease; E86.0 Dehydration; G62.9 Polyneuropathy, unspecified; M17.12 Unilateral primary osteoarthritis, left knee; K21.9 Gastro-esophageal reflux disease without esophagitis; M25.432 Effusion, left wrist; M10.9 Gout, unspecified; Z68.29 Body mass index [BMI] 29.0-29.9, adult; Z86.73 Personal history of transient ischemic attack (TIA), and cerebral infarction without residual deficits; N40.0 Benign prostatic hyperplasia without lower urinary tract symptoms; Z87.891 Personal history of nicotine dependence; E88.810 Metabolic syndrome
CPT/HCPCS: 36415; 73110; 73130; 80048; 80053; 80061; 83735; 84100; 84443; 84550; 85025; 85652; 86140; 87070; 87075; 87205; 89050; 89051; 89060; 94640; 94668; 97166; 99252; 99284; A4216; G0463; J2405

== ENCOUNTER 2025-03-10 15:48 | Inpatient (IN) | payer MEDICARE, SELFPAY ==
[2025-03-10] VITALS (7 sets, daily range): BP systolic 95–149; BP diastolic 57–71; PULSE 58–84; RESP 14–26; TEMP 36.6–37.1; O2SAT 95–98; BMI 28.6; BMI 28.5
--- NOTE | 2025-03-10 16:05 | CT_ITS ---
PROCEDURE: ABDOMEN/PELVIS W IV CONT ONLY 03/10/2025 REASON FOR EXAM: ABDOMINAL PAIN TECHNIQUE: ABDOMEN/PELVIS W IV CONT ONLY Coronal and Sagittal reconstruction series were provided. CONTRAST: Isovue 370 VOLUME: 75 mL One or more dose reduction techniques were used (e.g., Automated exposure control, adjustment of the mA and/or kV according to patient size, use of iterative reconstruction technique. RADIATION DOSE SUMMARY: CTDlvol: 6.65 and 22.63 mGy DLP: 1102.96 mGycm FINDINGS: Lung bases: A 3 cm right lower lobe, medial segment solid mass is identified possibly stable since the prior chest radiograph of June 29, 2018. Previous CT on June 28, 2018 showed a 2 point a cm solid mass at this location Liver: Normal Gallbladder: not detected. No cholecystectomy clips identified. Spleen: Unremarkable Pancreas: Normal Adrenals: Normal Kidneys: Bilateral cysts. Bilateral parapelvic cysts. Bladder: Normal. Reproductive Organs: Unremarkable. Bowel: Diverticulosis of transverse and descending colon sigmoid colon Appendix: Normal appendix identified. Lymph nodes: No adenopathy. Vasculature: Aortoiliac aneurysms treated with aortoiliac metallic mesh stent graft. 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 No aggressive bone lesion. CT/Abdomen/Pelvis W IV Cont ONLY IMPRESSION: No obvious GI extravasation of contrast. No source of bleeding identified. Diverticulosis without identified diverticulitis. Right lung base mass of unknown etiology, but either stable or very slow growin g compared to CT exam of 2018. Bilateral parapelvic cysts and cortical cystic lesions in the kidneys Reading [facility] [place]
--- NOTE | 2025-03-10 16:05 | ED.VIS.GI ---
HPI HPI - GI History of Present Illness Chief Complaint: GI Bleed Narrative Narrative: 89-year-old male past medical history of remote diverticular bleed when he was on Plavix presents with lower GI bleeding that began today. He had a family related history that his currently hospitalized. He has been going back and forth and running himself ragged. This afternoon, he felt as if he had to have a bowel movement and he had a bloody stool. He states he passed dark red blood as well as clots. He returned home and had a second bloody bowel movement. He endorses fatigue and tiredness as he has been stressed recently. States he has diffuse abdominal pain as well. He currently does not take any blood thinners, no Plavix, but he does take a baby aspirin. No exacerbating or alleviating factors. [facility] Medical History PAD (peripheral artery disease) Renal cyst Vertebrobasilar artery syndrome Diverticulosis Kidney stone Lung nodule AAA (abdominal aortic aneurysm) Bilateral carotid artery stenosis Asthma Arthritis Diverticular hemorrhage Lower GI bleed BPH (benign prostatic hyperplasia) GERD (gastroesophageal reflux disease) Peripheral neuropathy History of gastrointestinal bleeding Hx-TIA (transient ischemic attack) Chronic obstructive lung disease HTN (hypertension), benign Home Medications ?Medication ?Instructions ?Recorded ?Last Taken ?Type albuterol sulfate 90 mcg/actuation 2 puff inhalation Q4H PRN Sob &/Or 07/05/14 03/10/25 History aerosol inhaler Wheezing ramipril 10 mg capsule 10 mg PO DAILY BP 07/05/14 03/10/25 History pantoprazole 40 mg tablet,delayed 40 mg PO DAILY gerd 08/21/14 11/08/24 History release cholecalciferol (vitamin D3) 25 5,000 unit PO TID Supplement 11/23/14 03/10/25 History mcg (1,000 unit) tablet tamsulosin 0.4 mg capsule 0.4 mg PO QHS Prostate 11/23/14 03/09/25 20:40 History budesonide-formoterol HFA 160 2 puff inhalation BID Breathing 06/28/18 03/10/25 08:39 History mcg-4.5 mcg/actuation aerosol inhaler fenofibrate 160 mg tablet 160 mg PO DAILY cholesterol 04/10/19 03/10/25 History albuterol sulfate 2.5 mg/3 mL 2.5 mg continuous nebulization Q4H 11/08/24 Unknown History (0.083 %) solution for nebulization PRN wheezing gabapentin 600 mg tablet 600 mg PO TID neuropathy 11/08/24 03/10/25 02:40 History latanoprost 0.005 % eye drops 1 drp ophthalmic (eye) DAILY 11/08/24 03/10/25 History glaucoma Allergy/AdvReac Type Severity Reaction Status Date / Time cerivastatin sodium (From Allergy Severe Other Verified 03/10/25 15:48 Baycol) gemfibrozil (From Lopid) AdvReac Other Verified 03/10/25 15:48 meperidine (From Demerol) AdvReac Other Verified 03/10/25 15:48 Surgical History Total knee replacement status History of colonoscopy (~03/2019) History of esophagogastroduodenoscopy (EGD) (~03/2019) History of back surgery History of detached retina repair Status post vasectomy History of cholecystectomy History of left knee replacement History of back surgery Social History (Updated 03/10/25 @ 16:21 by April Gardner) household members: none Smoking Status: Never smoker ROS ROS ED ROS Narrative Review of systems positive for dark blood in stool as well as passage of clots. No fevers or chills. No nausea or vomiting. Positive diffuse abdominal pain. History of AAA repair. Does not take blood thinners. No exacerbating or alleviating factors. EXAM Physical Exam Narrative Exam Narrative: Afebrile. Vital signs noted. Nontoxic-appearing. Cardiovascular examination reveals a regular rate and rhythm. Lungs are clear to auscultation bilaterally. The abdomen is soft with diffuse tenderness to palpation. Positive ventral hernia. Reducible. Positive bowel sounds. Neurological examination nonfocal, nonlateralizing. Const Vital Signs: 03/10/25 15:48 03/10/25 16:48 03/10/25 18:00 Temperature 98.5 F Temperature Source Oral Pulse Rate 84 59 L 64 Respiratory Rate 18 23 H 26 H Blood Pressure 95/64 140/57 H Blood Pressure Mean 74 84 Pulse Ox 97 98 96 Oxygen Delivery Method Room Air Room Air 03/10/25 19:00 Temperature Temperature Source Pulse Rate 62 Respiratory Rate 14 Blood Pressure 118/61 Blood Pressure Mean 80 Pulse Ox 96 Oxygen Delivery Method Room Air MDM MDM MDM Narrative Medical decision making narrative: I reviewed the patient's prior records. In 2019 he did have suspected diverticular bleed on Plavix. He had been scoped by Dr. Smyth as an inpatient. Differential diagnosis includes but not limited to nonspecific abdominal pain versus diverticular bleed versus AV malformation versus diverticulitis versus hemorrhoidal bleed. I have lower suspicion for aortoenteric fistula. Currently having any bleeding. He may have dehydration as well. Comprehensive workup was pursued. I do feel CT imaging is indicated. I reviewed the patient's laboratory work and he has a normal white count of 8.6 with hemoglobin slightly anemic at 12.9, hematocrit 37.7, platelet count normal at 237. BUN is elevated 33 with creatinine 1.33, just above normal/his baseline of 1.1. LFTs are grossly unremarkable. Lipase normal at 71. I do not think he has a pancreatitis. Urinalysis negative for infection with 0-5 WBCs. I do not feel he needs antibiotics for a UTI. I reviewed the radiology report of the CT of the abdomen and pelvis and while he has diverticulosis there is no evidence of diverticulitis or acute process. I was going to perform a fecal occult blood test, however the patient had a bloody bowel movement here in the emergency department. Given his age, and continued GI bleeding, while I suspect a diverticular bleed, I do feel that he merits at least observation overnight. Patient will be discussed with the hospitalist. I discussed patient with Dr. Vides. Disposition is admit in stable condition. History & Record Review Discussion w/independent historian: Patient and Family Additional record(s) reviewed:: Prior ED visit (2019 had diverticular hemorrhage) Lab Data Attestation: I reviewed the patient's lab results. Labs: Laboratory Results - last 24 hr 03/10/25 03/10/25 15:58 18:18 WBC 8.6 RBC 4.00 L Hgb 12.9 L Hct 37.7 L MCV 94.3 H MCH 32.3 H MCHC 34.2 RDW Std Deviation 48.0 H RDW Coeff of Nohemi 14.1 Plt Count 237 MPV 9.4 Immature Gran % (Auto) 0.300 Neut % (Auto) 73.3 H Lymph % (Auto) 17.5 L [place] % (Auto) 7.2 Eos % (Auto) 0.9 Baso % (Auto) 0.8 Absolute Neuts (auto) 6.3 Absolute Lymphs (auto) 1.51 Nucleated RBC % 0 Sodium 141 Potassium 4.6 Chloride 108 Carbon Dioxide 20.3 L Anion Gap 13 BUN 33 H Creatinine 1.33 H Estim Creat Clear Calc 42.96 L Est GFR (MDRD) Non-Af 52 L BUN/Creatinine Ratio 25.0 H Glucose 127 H Calcium 9.6 Total Bilirubin 0.45 AST 30 ALT 21 Alkaline Phosphatase 86 Total Protein 5.9 Albumin 3.5 Globulin 2.4 Albumin/Globulin Ratio 1.4 Lipase 71 Urine Color Straw Urine Clarity Clear Urine pH 7.0 Ur Specific Beryl 1.010 Urine Protein 30 H Urine Glucose (UA) Normal Urine Ketones Negative Urine Occult Blood Negative Urine Nitrite Negative Urine Bilirubin Negative Urine Urobilinogen 1 H Ur Leukocyte Esterase Negative Urine RBC 0-5 SEEN Urine WBC 0-5 SEEN Ur Squamous Epith Cells 0-5 SEEN Urine Bacteria 0 SEEN Urine Mucus 0 SEEN Radiography Diagnostic Testing: Clinical Impression(s) from Imaging Studies Abdomen/Pelvis CT 03/10/25 16:05 IMPRESSION: No obvious GI extravasation of contrast. No source of bleeding identified. Diverticulosis without identified diverticulitis. 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 Bilateral parapelvic cysts and cortical cystic lesions in the kidneys Reading [facility] Management Discussion w/another healthcare provider: Hospitalist Discharge Plan Dx/Rx/DC Orders Clinical Impression: Lower GI bleed, History of gastrointestinal bleeding, Elevated serum creatinine, Rectal bleed Disposition Disposition: Acute Care Hospital [facility] Discharge Date/Time: 03/10/25 20:10
[2025-03-10 16:18] LABS: Hematocrit 37.7 % (40-54); Hemoglobin 12.9 g/dL (13.0-16.5); Immature Granulocytes Count 0.030 X10^3/uL (0.0-0.0); Mean Corp Hgb Conc 34.2 g/dL (32-36); Mean Corpuscular Volume 94.3 fL (80-94); Mean Platelet Vol. 9.4 fl (6.2-12.0); NRBC Flagged by Analyzer 0 % (0-5); Platelet Count 237 K/mm3 (150-450); RBC Distribution Width CV 14.1 % (11.6-14.6); RBC Distribution Width SD 48.0 fl (35.1-43.9); Red Blood Count 4.00 M/mm3 (4.6-6.2); White Blood Count 8.6 K/mm3 (4.4-11.0)
[2025-03-10] MEDS: 0.9% Normal Saline (1000mL) 1,000 ML 999 ML IV (16:20)
[2025-03-10 16:42] LABS: AST(SGOT) 30 U/L (<=37); Alanine Aminotransfer ALT/SGPT 21 U/L (<=46); Albumin, Serum 3.5 g/dL (3.4-4.8); Alkaline Phosphatase 86 U/L (40-129); Anion Gap 13 (5-15); BUN 33 mg/dL (4-19); BUN/Creat Ratio 25.0 RATIO (10-20); Calcium,Total 9.6 mg/dL (7.6-11.0); Carbon Dioxide 20.3 mmol/L (21.0-32.0); Chloride 108 mmol/L (98-108); Estimated Creatinine Clearance 42.96 ml/min (50-250); Globulin 2.4 g/dL (2.2-4.2); Glucose 127 mg/dL (70-99); Lipase 71 U/L (13-75); Potassium 4.6 mmol/L (3.3-5.1)
--- OUTSIDE RECORDS SUMMARY | 2025-03-10 17:12 | XMS RPT_ITS | CCD ---
Author Organization [facility] CliniSymi Care Team Providers Care Varnish Blender Name Role Phone EVELYN MADDEN DO Unavailable Unavailable EVELYN MADDEN DO Unavailable Unavailable CLARICE MURILLO Unavailable Unavailable EVELYN MADDEN DO Unavailable Unavailable CLARICE MURILLO Unavailable Unavailable PROVIDER, UNKNOWN Unavailable Unavailable Clarice Murlilo MD Primary Care Provider Marianne Balderas RN Unavailable Unavail able Manuel Bravo MD Unavailable Marianne Balderas RN Unavailable Clarice Murillo MD Primary Care Provider Marianne Balderas RN Unavailable Manuel Bravo MD Unavailable Clarice Murillo MD Primary Care Provider Marianne Balderas RN Unavailable Mahogany MIRANDA, Adriel Unavailable Clarice Murillo MD Primary Care Provider Manuel Bravo MD Unavailable Mahogany RN, Adriel Unavailable Mahogany RN, Adriel Unavailable PROVIDER, UNKNOWN Referring Unavailable CLARICE MURILLO Primary Care Unavailable PROVIDER, UNKNOWN Referring Unavailable CLARICE MURILLO Primary Care Unavailable CLARICE MURILLO Primary Care Unavailable ELADIO PABLO Attending Unavailable ELADIO PABLO Admitting Unavailable Manuel Bravo MD Unavailable Mahogany MIRANDA, Adriel Unavailable Clarice Murillo MD Primary Care Provider Tannhof VENEER MANUFACTURER.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, Karla Unavailable Zac VENEER MANUFACTURER.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, Sid Unavailable Tannhof VENEER MANUFACTURER.SARAI, Karla Unavailable Unavail able Chidi FOWLER, Dr. Melo Primary Care Provider Odilia DO, Dr. Clark Emergency Provider Josefina FOWLER, Dr. Collins Attending Provider Doss DO, Dr. Hewitt Admit Provider Unavail able Doss DO, Dr. Hewitt Other Provider Unavail able Guillermo FOWLER, Dr. Lan Attending Provider Guillermo FOWLER, Dr. Lan Other Provider Tannhof VENEER MANUFACTURER.SARAI, Karla Unavailable YNES TALAMANTES Attending Unavailable CLARICE MURILLO Referring Unavailable ELDERGIOVANI, CLARICE Evans Primary Care Unavailable ELDERCLARICE TRAYLOR Referring Unavailable ELDERGIOVANI, CLARICE Evans Primary Care Unavailable ELDERCLARICE TRAYLOR Attending Unavailable CLARICE MURILLO Primary Care Unavailable TANNKARLA SINHAE Referring Unavailabl e ELDERBROFIDELIA, CLARICE D Primary Care Unavailable ELDERGIOVANI, CLARICE Evans Primary Care Unavailable VASYL WELSH Attending Unavailable ELDERBROCK, CLARICE Evans Primary Care Unavailable JYOTHI MOSLEY Attending Unavailable FRANCIA LUNA Attending Unavailable SELF Referring Unavailable ELDERBROCK, CLARICE Cristina Primary Care Unavailable FABIO NORIEGA Attending Unavailable ELDERBROCLARICE MISTRY Primary Care Unavailable TANNKARLA SINHA Attending Unavailabl e ELDERBROFIDELIA, CLARICE D Primary Care Unavailable TANNHOFKARLAE Referring Unavailabl e ELDERBROCK, CLARICE D Primary Care Unavailable TANNKARLA SINHA Attending Unavailabl e ELDERGIOVANI, CLARICE D Primary Care Unavailable TANNHOF, KARLA ROSAE Referring Unavailabl e ELDERBROCK, CLARICE D Primary Care Unavailable YNES TALAMANTES Referring Unavailable ELDERGIOVANI, CLARICE Evans Primary Care Unavailable ElderClarice traylor Referring Unavailable Elderbrock, Clarice Primary Care Unavailable Dennis Rocha Attending Unavailable Clarice Murillo Primary Care Unavailable Riky Li Attending Unavailable Evelyn Doss Consulting Unavailable Evelyn Doss Admitting Unavailable Riky Li Consulting Unavailable Clarice Murillo Primary Care Unavailable Evelyn Doss Admitting Unavailable Riky Li Attending Unavailable Evelyn Doss Consulting Unavailable Clarice Murillo Primary Care Unavailable Riky Li Referring Unavailable Dennis Rocha Attending Unavailable Evelyn Doss Attending Unavailable Guillermo Riky Referring Unavailable Dennis Rocha Attending Unavailable Allergies Allergy Classification Reported Allergen(s) Allergy Type Date of Onset Reaction(s) Facility cerivastatin (1 source) cerivastatin Drug Allergy 3 Other: See Comments [facility] Work Phone: Gemfibrozil (1 source) Gemfibrozil Drug Allergy 6 Other: See Comments [facility] Work Phone: Iodine (and Iodine containting drugs) (1 source) Iodine Drug Allergy 9 Intolerance [facility] Opioid Agonists (1 source) Meperidine Drug Allergy 7 Mental Status Change [facility] (1 source) meperidine Drug Allergy [facility] Repository (20 sources) Gemfibrozil; Translations: [GEMFIBROZIL] Drug Allergy 6 Other: See Comments [facility] Work Phone: (20 sources) Iodine; Translations: [IODINE] Drug Allergy 9 Intolerance [facility] (20 sources) Meperidine; Translations: [MEPERIDINE (PF)] Drug Allergy 7 Mental Status Change [facility] (20 sources) baycolOther] [Other] Propensity to adverse reactions 7 Other: See Comments [facility] Work Phone: (1 source) OTHER; Translations: [OTHER] Propensity to adverse reactions (disorder) 7 [facility] Other [place] Repository (20 sources) cerivastatin; Translations: [BAYCOL] Drug Allergy 3 Other: See Comments [facility] Other [place] Repository (2 sources) cerivastatin; Translations: [cerivastatin sodium] Drug Allergy 5 Other [facility] Comment on above: KIDNEY FAILURE (1 source) Meperidine Drug Allergy 5 Other [facility] (1 source) Gemfibrozil Drug Allergy 5 [facility] Repository (1 source) Meperidine Drug Allergy 5 [facility] Repository Medications Current Medications Medication Drug Class(es) Dates Sig (Normalized) Sig (Original) acetaminophen 500 mg oral tablet (20 sources) Start: 02-01-2023 take 2 tablets by mouth every six hours acetaminophen (TYLENOL) 500 mg tablet Take 2 tablets by mouth every 6 hours. 02/01/2023 Active Comment on above: Take 2 tablets by mo ut every 6 hours. albuterol 0.83 mg/ml inhalation solution (20 sources) beta2-Adrenergic Agonist Start: 11-08-2024 Albuterol Sulfate 2.5 mg /3 mL (0.083 %) solution for nebulization Active 2.5 mg continuous nebulization Q4H as needed for wheezing November 08, 2024 12:00am Start: 11-03-2024 take 2.5 mg by inhal ation every four hours as needed albuterol (PROVENTIL) 2.5 mg /3 mL (0.083 %) nebulizer solution Use 3 mL via nebulizer every 4 hours as needed for wheezing/shortness of breath. 36 mL 11/03/2024 Active Start: 08-19-2020 End: 08-01-2024 take 2 puff(s) by inhalation every four hours as needed for wheezing albuterol HFA (VENTOLIN HFA) 90 mcg/actuation inhaler Inhale 2 Puffs as instructed every 4 hours as needed for wheezing/shortness of breath. 18 g 11 08/01/2024 Active Start: 11-27-2019 take 1-2 puff(s) by inhalation four times daily as needed for wheezing albuterol HFA (PROVENTIL HFA, VENTOLIN HFA) 90 mcg/actuation inhaler Indications: COPD with exacerbation (HCC) , Mild intermittent asthma without complication Inhale 1-2 Puffs as instructed four times daily as needed. FOR WHEEZING AND SHORTNESS OF BREATH. 1 Inhaler 11 11/27/2019 Active Start: 07-05-2014 Albuterol Sulf ate 1 INHALER inhaler Active 2 NMA INHALATION Q4H as needed for Sob &/Or Wheezing July 05, 2014 1:00am Comment on above: Inhale 1-2 Puffs as instructed four times daily as needed. FOR WHEEZING AND SHORTNESS OF BREATH. Inhale 2 Puffs as in structed every 4 hours as needed for Wheezing/Shortness of Breath. amoxicillin 875 mg / clavulanate 125 mg oral tablet (1 source) Penicillin-class Antibacterial Start: 11-11-19 Amoxicillin-Pot Clavulanate 875-125 mg tablet Active 1 {tbl} PO TWICE A DAY November 10, 2024 12:00am aspirin 81 mg oral tablet (20 sources) Platelet Aggregation Inhibitor, Nonsteroidal Anti-inflammatory Drug Start: 12-01-19 take 1 capsule by mouth once daily aspirin 81 mg cap Take 1 capsule by mouth once daily. 11/30/2021 Active Comment on above: Take 1 capsule by mo [facility] once daily. azithromycin 250 mg oral tablet (1 source) Macrolide Antimicrobial Start: 10-07-19 End: 10-12-19 azithromycin (ZITHROMAX Z-BENJAMIN) 250 mg tablet Indications: Bronchitis Take 2 tablets day one, then, 1 tablet daily until gone. 6 tablet 0 10/07/2023 10/12/2023 Active Comment on above: Take 2 tablets day o ne, then, 1 tablet daily until gone. betamethasone 0.5 mg/ml / clotrimazole 10 mg/ml topical cream (20 sources) Azole Antifungal, Corticosteroid Start: 07-08-20 clotrimazole-betame thasone (LOTRISONE) cream Indications: Tinea pedis of left foot Apply 1 application to affected area two times a day. As needed 30 g 2 07/08/2023 Active Start: 05-18-2023 clotrimazole-b etamethasone (LOTRISONE) cream Indications: Tinea pedis of left foot Apply 1 application to affected area two times a day. As needed 30 g 2 05/18/2023 Active Start: 02-01-2023 End: 05-18-2023 clotrimazole-betamethasone ( LOTRISONE) cream Indications: Tinea pedis of left foot Apply 1 application to affected area twice daily. As needed 0 02/01/2023 05/18/2023 Discontinued Start: 11-27-2019 End: 02-01-2023 clotrimazole-betamethasone ( LOTRISONE) cream Indications: Tinea pedis of left foot Apply 1 application to affected area twice daily. 30 g 1 02/04/2022 02/01/2023 Discontinued Comment on above: Apply 1 application to affected area twice daily. Apply 1 application to affected area twice daily. As needed Apply 1 application to affected area two times a day. As needed 60 actuat budesonide 0.16 mg/actuat / formoterol fumarate 0.0045 mg/actuat metered dose inhaler (20 sources) Corticosteroid, beta2-Adrenergic Agonist Start: take 2 puff(s) by inhalation twice daily SYMBICORT 160-4.5 mcg/actuation inhaler Indications: Asthma-COPD overlap syndrome (HCC) Inhale 2 puffs as instructed two times a day. 11 g 5 11/01/2024 Active Start: 12-02-2023 End: 11-01-2024 take 2 puff(s) by mouth twice daily SYMBICORT 160-4.5 mcg/actuation inhaler Indications: Asthma-COPD overlap syndrome (HCC) INHALE 2 PUFFS BY MOUTH TWICE DAILY DIRECTED 11 g 12/02/2023 11/01/2024 Discontinued Start: 07-04-2023 End: 12-02-2023 take 2 puff(s) by inhalation twice daily budesonide-formoterol (SYMBICORT) 160-4.5 mcg/actuation inhaler Indications: Asthma-COPD overlap syndrome (HCC) Inhale 2 Puffs as instructed two times a day. 1 Each 5 07/04/2023 12/02/2023 Discontinued Start: 07-04-2023 take 2 puff(s) by in halation twice daily budesonide-formoterol (SYMBICORT) 160-4.5 mcg/actuation inhaler Indications: Asthma-COPD overlap syndrome (HCC) Inhale 2 Puffs as instructed two times a day. 1 Each 5 07/04/2023 Active Start: 07-04-2023 take 2 puff(s) by in halation twice daily budesonide-formoterol (SYMBICORT) 160-4.5 mcg/actuation inhaler Indications: Asthma-COPD overlap syndrome Inhale 2 Puffs as instructed two times a day. 1 Each 5 07/04/2023 Active Start: 07-06-2022 End: 07-04-2023 take 2 puff(s) by inhalation twice daily budesonide-formoterol (SYMBICORT) 160-4.5 mcg/actuation inhaler Inhale 2 Puffs as instructed twice daily. 1 Each 5 07/06/2022 07/04/2023 Discontinued Start: 07-06-2022 take 2 puff(s) by in halation twice daily budesonide-formoterol (SYMBICORT) 160-4.5 mcg/actuation inhaler Inhale 2 Puffs as instructed twice daily. 1 Each 5 07/06/2022 Active Start: 05-29-2021 End: 12-06-2022 take 2 puff(s) by inhalation twice daily SYMBICORT 80-4.5 mcg/actuation inhaler Inhale 2 Puffs as instructed twice daily. 10.2 g 11 06/04/2022 12/06/2022 Discontinued Start: 06-28-2018 End: 12-06-2022 budesonide-formoterol (SYMBI OLIVIA) 160-4.5 mcg/actuation inhaler Budesonide/Formoterol 160/4.5 Active 2 PUFF TWICE A DAY June 28, 2018 4:04pm 0 06/28/2018 12/06/2022 Discontinued Start: 06-28-2018 budesonide-for moterol (SYMBICORT) 160-4.5 mcg/actuation inhaler Budesonide/Formoterol 160/4.5 Active 2 PUFF TWICE A DAY June 28, 2018 4:04pm 0 06/28/2018 Active Start: 06-28-2018 Budesonide-For moterol 1 INHALER inhaler Active 2 NMA INHALATION TWICE A DAY June 28, 2018 1:00am Comment on above: Inhale 2 Puffs as in structed twice daily. Budesonide/Formotero l 160/4.5 Active 2 PUFF TWICE A DAY June 28, 2018 4:04pm Inhale 2 Puffs as in structed two times a day. cholecalciferol 0.025 mg oral tablet (20 sources) Vitamin D Start: 11-23-2014 cholecalciferol (VITAMIN D3) 1,000 unit tab tablet Cholecalciferol (Vit D3) Active 3000 UNIT TWICE A DAY November 23, 2014 8:06am 11/23/2014 Active Start: 11-23-2014 take 3 tablets by mo [facility] twice daily Cholecalciferol (Vitamin D3) 1,000 UNIT tablet Active 3000 U PO TWICE A DAY November 23, 2014 12:00am Comment on above: Cholecalciferol (Vit D3) Active 3000 UNIT TWICE A DAY November 23, 2014 8:06am doxycycline hyclate 100 mg oral tablet (5 sources) Tetracycline-class Drug Start: 03-14-20 End: 03-24-20 take 1 tablet by mouth twice daily doxycycline (VIBRA-TABS) 100 mg tablet Indications: COPD with exacerbation (HCC) Take 1 tablet by mouth twice daily for 10 days. 20 tablet 0 03/14/2023 03/24/2023 Active Start: 01-06-2023 End: 01-13-2023 take 1 tablet by mouth twice daily doxycycline (VIBRA-TABS) 100 mg tablet Indications: Asthma with COPD with exacerbation (HCC) Take 1 tablet by mouth twice daily for 7 days. 14 tablet 0 01/06/2023 01/13/2023 Active Start: 2022 End: 06-25-2022 take 1 tablet by mouth twice daily doxycycline (VIBRA-TABS) 100 mg tablet Indications: Acute exacerbation of chronic obstructive pulmonary disease (COPD) (HCC) Take 1 tablet by mouth twice daily for 10 days. 10 tablet 0 2022 06/25/2022 Active Start: 06-08-2022 End: 06-13-2022 take 1 capsule by mouth twice daily doxycycline monohydrate (MONODOX) 100 mg capsule Take 1 capsule by mouth twice daily for 5 days. 10 capsule 06/08/2022 06/13/2022 Comment on above: Take 1 tablet by татьяна th twice daily for 10 days. Take 1 tablet by татьяна th twice daily for 7 days. fenofibrate 160 mg oral tablet (20 sources) Peroxisome Proliferator Receptor alpha Agonist Start: 04-10-20 End: 05-04-20 take 1 tablet by mouth once daily Fenofibrate (LOFIBRA) 160 mg tablet Indications: Hyperlipidemia, unspecified hyperlipidemia type Take 1 tablet by mouth once daily. 30 tablet 11 05/04/2024 Active Comment on above: Take 1 tablet by татьяна th once daily. gabapentin 600 mg oral tablet (20 sources) Anti-epileptic Agent Start: 01-25-20 End: 01-29-20 take 1 tablet by mouth three times daily gabapentin (NEURONTIN) 600 mg tablet Indications: Neuropathy Take 1 tablet by mouth three times a day for 180 days. 90 tablet 5 08/01/2024 Active Start: 06-04-2022 End: 06-24-2024 take 1 capsule by mouth three times daily gabapentin (NEURONTIN) 300 mg capsule Take 1 capsule by mouth three times a day for 180 days. 270 capsule 1 07/08/2023 01/04/2024 Active Start: 06-28-2018 End: 11-08-2024 take 1 capsule by mouth three times daily gabapentin (NEURONTIN) 100 mg capsule Indications: Osteoarthritis of lumbar spine, unspecified spinal osteoarthritis complication status Take 1 capsule by mouth three times daily. 270 capsule 3 06/04/2022 06/04/2022 Discontinued Comment on above: Take 1 capsule by [facility] three times daily. Take 1 capsule by [facility] three times daily for 180 days. Take 1 capsule by [facility] three times a day for 180 days. 12 hr guaiFENesin 600 mg extended release oral tablet (20 sources) Start: 11-03-2024 take 2 tablets by mouth twice daily guaiFENesin (MUCINEX) 600 mg 12 hr tablet Take 2 tablets by mouth two times a day. 24 tablet 11/03/2024 Active Start: 2022 End: 02-01-2023 take 2 tablets by mouth twice daily guaiFENesin (MUCINEX) 600 mg 12 hr tablet Take 2 tablets by mouth two times a day. 24 tablet 11/03/2024 Active Comment on above: Take 2 tablets by [facility] twice daily. Take 2 tablets by [facility] twice daily. As needed hydrocortisone 10 mg/ml / neomycin 3.5 mg/ml / polymyxin b 20445 unt/ml otic suspension (20 sources) Aminoglycoside Antibacterial, Polymyxin-class Antibacterial, Corticosteroid Start: 07-08-2023 [id number] drocortisone (CORTISPORIN) 3.5-10,000-1 mg/mL-unit/mL-% otic suspension Use 4 Drops in the ears four times daily. x 1 week 10 mL 2 07/08/2023 Active Start: 05-29-2021 End: 05-18-2023 dyjkllvo-[id number]-[id number] isone (CORTISPORIN) 3.5-10,000-1 mg/mL-unit/mL-% otic suspension Use 4 Drops in the ears four times daily. x 1 week 10 mL 2 05/29/2021 05/18/2023 Discontinued Comment on above: Use 4 Drops in the e ars four times daily. x 1 week latanoprost 0.05 mg/ml ophthalmic solution (1 source) Prostaglandin Analog Start: 11-09-19 Latanoprost 0.005 % drops Active 1 NMA OPHTHALMIC DAILY November 08, 2024 12:00am meclizine hydrochloride 25 mg oral tablet (20 sources) Antiemetic Start: 02-05-20 End: 08-01-19 take 1 tablet by mouth every six hours as needed for dizziness and dizziness meclizine (ANTIVERT) 25 mg tab Indications: Dizziness Take 1 tablet by mouth every 6 hours as needed. FOR DIZZINESS 30 tablet 5 08/01/2024 Active Comment on above: Take 1 tablet by татьяна every 6 hours as needed. FOR DIZZINESS pantoprazole 40 mg delayed release oral tablet (20 sources) Proton Pump Inhibitor Start: 08-15-19 End: 09-07-19 take 1 tablet by mouth once daily before breakfast pantoprazole DR (PROTONIX) 40 mg tablet Indications: GERD without esophagitis Take 1 tablet by mouth daily before breakfast. Take on empty stomach, 1/2 hr before meal. 90 tablet 3 09/07/2024 Active Start: 08-21-2014 End: 08-12-2022 take 1 tablet by mouth once daily before breakfast pantoprazole DR (PROTONIX) 40 mg tablet Indications: GERD without esophagitis Take 1 tablet by mouth daily before breakfast. Take on empty stomach, 1/2 hr before meal. 90 tablet 3 05/29/2021 08/12/2022 Discontinued Comment on above: Take 1 tablet by татьяна th daily before breakfast. Take on empty stomach, 1/2 hr before meal. polyethylene glycol 3350 09832 mg powder for oral solution (1 source) Osmotic Laxative Start: Polyethylene Glycol 3350 (Miralax) 17 gram/dose powder Active 17 g PO DAILY 510 November 10, 2024 12:00am predniSONE 20 mg oral tablet (7 sources) Start: End: take 2 tablets by mouth once daily predniSONE (DELTASONE) 20 mg tablet Take 2 tablets by mouth once daily for 5 days. 10 tablet 11/03/2024 11/08/2024 Active Start: 10-07-2023 End: 10-12-2023 take 1 tablet by mouth once daily predniSONE (DELTASONE) 20 mg tablet Indications: Bronchitis Take 1 tablet by mouth once daily for 5 days. 5 tablet 0 10/07/2023 10/12/2023 Active Start: 03-14-2023 End: 03-19-2023 take 1 tablet by mouth once daily predniSONE (DELTASONE) 20 mg tablet Indications: COPD with exacerbation (HCC) Take 1 tablet by mouth once daily for 5 days. 5 tablet 0 03/14/2023 03/19/2023 Active Start: 01-06-2023 End: 01-11-2023 take 2 tablets by mouth once daily predniSONE (DELTASONE) 20 mg tablet Indications: Asthma with COPD with exacerbation (HCC) Take 2 tablets by mouth once daily for 5 days. 10 tablet 0 01/06/2023 01/11/2023 Active Start: 09-06-2022 End: 09-21-2022 predniSONE (DELTASONE) 10 mg tablet Indications: Acute pain of both shoulders Take 4 tabs daily x5 days, then 2 tabs daily for 5 days, then 1 tab daily for 5 days. 35 tablet 0 09/06/2022 09/21/2022 Active Start: 2022 End: 06-24-2022 predniSONE (DELTASONE) 10 mg tablet Indications: Acute exacerbation of chronic obstructive pulmonary disease (COPD) (HCC) Take 4 tabs daily for 3 days, then 2 tabs daily for 3 days, then 1 tab daily for 3 days with food. 21 tablet 0 2022 06/24/2022 Active Start: 06-08-2022 End: 06-13-2022 take 1 tablet by mouth once daily predniSONE (DELTASONE) 50 mg Take 1 tablet by mouth once daily for 5 days. 5 tablet 06/08/2022 06/13/2022 Comment on above: Take 4 tabs daily fo r 3 days, then 2 tabs daily for 3 days, then 1 tab daily for 3 days with food. Take 4 tabs daily x5 days, then 2 tabs daily for 5 days, then 1 tab daily for 5 days. Take 2 tablets by [facility] once daily for 5 days. Take 1 tablet by [facility] once daily for 5 days. ramipril 10 mg oral capsule (20 sources) Angiotensin Converting Enzyme Inhibitor Start: 4 End: 6 take 1 capsule by mouth once daily ramipril (ALTACE) 10 mg capsule Indications: Essential hypertension, benign Take 1 capsule by mouth once daily. 90 capsule 3 11/19/2024 11/19/2025 Active Comment on above: Take 1 capsule by [facility] once daily. tamsulosin hydrochloride 0.4 mg oral capsule (20 sources) alpha-Adrenergic Edward Start: 1 End: 5 take 1 capsule by mouth once daily at bedtime tamsulosin (FLOMAX) 0.4 mg TAKE ONE CAPSULE BY MOUTH ONCE DAILY AT BEDTIME 90 capsule 3 09/07/2024 Active Start: 11-23-2014 take 1 capsule by [facility] at bedtime Tamsulosin 0.4 MG capsule Active 0.4 mg PO AT BEDTIME November 23, 2014 12:00am Comment on above: TAKE ONE CAPSULE BY MOUTH ONCE DAILY AT BEDTIME Completed/Discontinued Medications Medication Drug Class(es) Dates Sig (Normalized) Sig (Original) acetaminophen 325 mg / HYDROcodone bitartrate 5 mg oral tablet (1 source) Opioid Agonist Start: 06-27-2020 End: 06-30-2020 Hydrocodone-Acetam inophen 1 EACH tablet Discontinued 1 NMA PO Q8H as needed for Pain Score 6-10 8 3 June 27, 2020 June 29, 2020 1:00am June 30, 2020 1:03am benzonatate 100 mg oral capsule (4 sources) Non-narcotic Antitussive Start: 11-03-2024 End: 02-05-2025 take 2 capsules by mouth every eight hours as needed benzonatate (TESSALON PERLE) 100 mg capsule Take 2 capsules by mouth three times a day as needed. 30 capsule 11/03/2024 02/05/2025 Discontinued betamethasone 3 mg/ml / betamethasone acetate 3 mg/ml injectable suspension (2 sources) Corticosteroid Start: 10-11-2022 End: 10-11-2022 betamethasone acetate-betamethas one sodium phosphate 6 mg injection (CELESTONE) Start: 10-11-2022 End: 10-11-2022 betamethasone acetate-betame thasone sodium phosphate 6 mg injection (CELESTONE) clopidogrel 75 mg oral tablet (1 source) [id number] Platelet Inhibitor Start: 07-05-2014 End: 04-11-2019 take 1 tablet by mouth once daily Clopidogrel 75 MG tablet Discontinued 75 mg PO DAILY July 05, 2014 1:00am April 11, 2019 10:10am ipratropium bromide 0.2 mg/ml inhalation solution (1 source) Anticholinergic Start: 11-05-2016 End: 11-08-2024 take 0.5 mg by inhalation every eight hours as needed for wheezing Ipratropium [place] 0.5 MG/2.5 ML solution Discontinued 0.5 mg INHALATION Q8H as needed for Sob &/Or Wheezing November 05, 2016 12:00am November 08, 2024 7:38pm 10 ml lidocaine hydrochloride 10 mg/ml injection (3 sources) Antiarrhythmic, Amide Local Anesthetic Start: 10-11-2022 End: 10-11-2022 lidocaine (PF) 10 mg/mL (1 %) 4 mL injection (XYLOCAINE) Start: 10-11-2022 End: 10-11-2022 lidocaine (PF) 10 mg/mL (1 % ) 4 mL injection (XYLOCAINE) Start: 06-27-2020 End: 06-30-2020 Lidocaine 1 PATCH patch Disc ontinued 2 NMA TOPICAL DAILY 6 3 June 27, 2020 1:00am June 29, 2020 1:00am June 30, 2020 1:03am loperamide hydrochloride 2 mg oral capsule (2 sources) Opioid Agonist Start: 06-30-2018 End: 11-10-2024 take 1 capsule by mouth every two hours as needed for diarrhea Loperamide 2 MG capsule Discontinued 2 mg PO Q2H as needed for Diarrhea November 08, 2024 12:00am November 10, 2024 9:41am regadenoson 0.4 mg injection (LEXISCAN) (1 source) Start: 11-29-2022 End: 11-29-2022 regadenoson 0.4 mg injection (LEXISCAN) Problems Active Problems Problem Classification Problem Date Documented Da te Episodic/Chronic Aortic; peripheral; and visceral artery aneurysms (20 sources) Abdominal aortic aneurysm without rupture; Translations: [Abdominal aortic aneurysm, without rupture] Onset: 4 Resolved: 1 10-30-2015 Chronic Asthma (20 sources) Asthma; Translations: [Unspecified asthma, uncomplicated] Onset: 6 12-27-2015 Chronic Chronic obstructive pulmonary disease and bronchiectasis (20 sources) Chronic obstructive lung disease; Translations: [Chronic obstructive pulmonary disease, unspecified] Onset: 3 11-25-2020 Chronic Chronic obstructive pulmonary disease and bronchiectasis (1 source) Bronchitis; Translations: [Bronchitis, not specified as acute or chronic] 10-07-2023 Episodic Diabetes mellitus without complication (2 sources) Increased glucose level; Translations: [Other abnormal glucose] Onset: 5 08-01-2024 Episodic Disorders of lipid metabolism (20 sources) Hyperlipidemia; Translations: [Hyperlipidemia, unspecified] Onset: 3 06-25-2015 Chronic Diverticulosis and diverticulitis (20 sources) Diverticular disease; Translations: [Diverticulosis of intestine, part unspecified, without perforation or abscess without bleeding] Onset: 5 12-24-2014 Chronic Esophageal disorders (9 sources) Gastroesophageal reflux disease without esophagitis; Translations: [Gastro-esophageal reflux disease without esophagitis] Onset: 5 Chronic Essential hypertension (20 sources) Benign essential hypertension; Translations: [Essential (primary) hypertension] Onset: 5 07-14-2006 Chronic Fluid and electrolyte disorders (3 sources) Dehydration; Translations: [Dehydration] Onset: 5 11-08-2024 Episodic Gastrointestinal hemorrhage (1 source) Lower gastrointestinal hemorrhage; Translations: [Gastrointestinal hemorrhage, unspecified] 04-20-2019 Episodic Gout and other crystal arthropathies (3 sources) Gout; Translations: [Gout, unspecified] Onset: 5 11-08-2024 Chronic Hyperplasia of prostate (20 sources) Benign prostatic hyperplasia; Translations: [Benign prostatic hyperplasia without lower urinary tract symptoms] Onset: 4 01-01-2014 Chronic Mycoses (2 sources) Tinea pedis; Translations: [Tinea pedis] Onset: 3 Episodic Nutritional deficiencies (20 sources) Vitamin D deficiency; Translations: [Vitamin D deficiency, unspecified] Onset: 0 11-03-2009 Chronic Occlusion or stenosis of precerebral arteries (20 sources) Carotid artery occlusion; Translations: [Occlusion and stenosis of unspecified carotid artery] Onset: 1 01-28-2011 Chronic Osteoarthritis (6 sources) Bilateral shoulder osteoarthritis; Translations: [Primary osteoarthritis, right shoulder] Onset: 5 Chronic Other circulatory disease (2 sources) H/O: hypertension; Translations: [Personal history of other diseases of the circulatory system] 11-08-2024 Episodic Other connective tissue disease (20 sources) History of left total knee replacement; Translations: [Presence of left artificial knee joint] Onset: 3 01-28-2023 Chronic Other diseases of kidney and ureters (20 sources) Renal mass; Translations: [Other specified disorders of kidney and ureter] Onset: 6 10-30-2015 Chronic Other lower respiratory disease (1 source) Interstitial lung disease; Translations: [Interstitial pulmonary disease, unspecified] 01-03-2024 Chronic Other lower respiratory disease (4 sources) Multiple nodules of lung; Translations: [Other nonspecific abnormal finding of lung field] Episodic Other lower respiratory disease (1 source) Other nonspecific abnormal finding of lung field; Translations: [Swelling, mass, or lump in chest] 01-03-2024 Episodic Other lower respiratory disease (1 source) Cough; Translations: [Acute cough] 06-08-2022 Episodic Other nervous system disorders (20 sources) Neuropathy; Translations: [Polyneuropathy, unspecified] Onset: 3 01-28-2023 Chronic Other nervous system disorders (1 source) Peripheral nerve disease ; Translations: [Polyneuropathy, unspecified] 04-20-2019 Chronic Other nervous system disorders (1 source) Other chronic pain; Translations: [Chronic pain of both shoulders] Onset: 5 Chronic Other nervous system disorders (1 source) Polyneuropathy, unspecified; Translations: [Neuropathy] Onset: 3 Chronic Other nervous system disorders (1 source) Other acute postprocedural pain; Translations: [Acute post-operative pain] Onset: 3 Episodic Other non-traumatic joint disorders (8 sources) Shoulder pain; Translations: [Pain in left shoulder] Episodic Other non-traumatic joint disorders (1 source) Hip pain; Translations: [Pain in left hip] Episodic Other non-traumatic joint disorders (5 sources) Bilateral chronic pain of upper limbs; Translations: [Pain in right shoulder] Episodic Other non-traumatic joint disorders (3 sources) Pain in right shoulder; Translations: [Pain in joint, shoulder region] Onset: 5 10-11-2022 Episodic Other non-traumatic joint disorders (2 sources) Pain in wrist; Translations: [Pain in left wrist] 11-08-2024 Episodic Other non-traumatic joint disorders (2 sources) Swelling of wrist joint; Translations: [Effusion, left wrist] 11-08-2024 Episodic Other non-traumatic joint disorders (1 source) Pain in left shoulder; Translations: [Chronic pain of both shoulders] Onset: 5 Episodic Other non-traumatic joint disorders (3 sources) Effusion, left wrist; Translations: [Swelling of left wrist] Onset: 5 Episodic Other non-traumatic joint disorders (1 source) Pain in left wrist; Translations: [Pain in left wrist] Onset: 5 Episodic Other nutritional; endocrine; and metabolic disorders (20 sources) Hypomagnesemia; Translations: [Hypomagnesemia] Onset: 3 02-01-2023 Chronic Other nutritional; endocrine; and metabolic disorders (20 sources) High density lipoprotein above reference range; Translations: [Other lipoprotein metabolism disorders] Onset: 3 03-08-2023 Chronic Other nutritional; endocrine; and metabolic disorders (2 sources) Body mass index 25-29 - overweight; Translations: [Overweight] 11-08-2024 Episodic Other nutritional; endocrine; and metabolic disorders (1 source) Overweight; Translations: [Overweight] Onset: 5 Episodic Other screening for suspected conditions (not mental disorders or infectious disease) (2 sources) Encounter for screening for cardiovascular disorders; Translations: [Patient encounter status] Onset: 3 Episodic Peripheral and visceral atherosclerosis (20 sources) Peripheral vascular disease, unspecified; Translations: [Peripheral vascular disease, unspecified] Onset: 3 03-08-2023 Chronic Pleurisy; pneumothorax; pulmonary collapse (1 source) Focal atelectasis; Translations: [Atelectasis] 09-24-2024 Episodic Residual codes; unclassified (1 source) Procedure not done; Translations: [Procedure and treatment not carried out, unspecified reason] 03-01-2023 Episodic Residual codes; unclassified (1 source) Altered mental status; Translations: [Altered mental status, unspecified] 04-20-2019 Episodic Residual codes; unclassified (1 source) Edema of foot; Translations: [Localized edema] 02-05-2025 Episodic Residual codes; unclassified (1 source) Localized edema; Translations: [Pedal edema] Onset: 5 Episodic Skin and subcutaneous tissue infections (4 sources) Cellulitis; Translations: [Cellulitis, unspecified] Onset: 5 11-08-2024 Episodic Spondylosis; intervertebral disc disorders; other back problems (20 sources) Lumbar spondylosis; Translations: [Spondylosis without myelopathy or radiculopathy, lumbar region] Onset: 4 01-01-2014 Chronic Spondylosis; intervertebral disc disorders; other back problems (1 source) Low back pain; Translations: [Low back pain] 06-28-2020 Episodic Transient cerebral ischemia (20 sources) Vertebrobasilar artery syndrome; Translations: [Vertebro-basilar artery syndrome] Onset: 9 05-29-2019 Chronic Unclassified (1 source) Follow-up in 3 days at [facility] in clinic Unclassified (3 sources) Bilateral chronic pain of upper limbs 02-05-2025 Unclassified (1 source) Abdominal aortic aneurysm (AAA) without rupture, unspecified part; Translations: [Abdominal aortic aneurysm (AAA) without rupture, unspecified part] Onset: 3 Unclassified (1 source) Abdominal aortic aneurysm (AAA) without rupture, unspecified part (HCC); Translations: [Abdominal aortic aneurysm (AAA) without rupture, unspecified part (HCC)] Onset: 3 Past or Other Problems Problem Classification Problem Date Documented Da te Episodic/Chronic Calculus of urinary tract (20 sources) History of calculus of kidney; Translations: [Personal history of urinary calculi] Onset: 5 10-29-2014 Episodic Conditions associated with dizziness or vertigo (2 sources) Dizziness; Translations: [Dizziness and giddiness] Onset: 5 08-01-2024 Episodic Genitourinary symptoms and ill-defined conditions (20 sources) Lower urinary tract symptoms; Translations: [Unspecified symptoms and signs involving the genitourinary system] Onset: 5 10-29-2014 Episodic Immunizations and screening for infectious disease (3 sources) Needs influenza immunization; Translations: [Encounter for immunization] Onset: 4 Episodic Nausea and vomiting (20 sources) Nausea; Translations: [Nausea] Onset: 3 02-01-2023 Episodic Other circulatory disease (20 sources) History of transient ischemic attack; Translations: [Personal history of transient ischemic attack (TIA), and cerebral infarction without residual deficits] Onset: 3 01-28-2023 Episodic Other diseases of kidney and ureters (20 sources) Complex renal cyst; Translations: [Cyst of kidney, acquired] Onset: 5 10-29-2014 Episodic Other diseases of kidney and ureters (20 sources) Cyst of kidney; Translations: [Cyst of kidney, acquired] Onset: 6 10-30-2015 Episodic Other gastrointestinal disorders (20 sources) History of gastrointestinal bleed; Translations: [Personal history of other diseases of the digestive system] Onset: 9 04-16-2019 Episodic Other lower respiratory disease (20 sources) Lung mass; Translations: [Other nonspecific abnormal finding of lung field] Onset: 6 10-30-2015 Episodic Other lower respiratory disease (20 sources) Nodule of lung; Translations: [Solitary pulmonary nodule] Onset: 6 01-28-2023 Episodic Other upper respiratory infections (2 sources) Upper respiratory infection; Translations: [Acute upper respiratory infection, unspecified] Onset: 5 11-03-2024 Episodic Screening and history of mental health and substance abuse codes (9 sources) Ex-cigarette smoker; Translations: [Personal history of nicotine dependence] Onset: 5 Episodic Results Test Name Value Interpretation Reference Range Facility Crystals, Body Fluidon 03-06 PATH REV Reviewed Normal [facility] Comment on above: Order Comment: Comme nts: Left wrist aspirateComments: Left wrist aspirateReviewed by Dr. Fletcher.Sammie Fletcher MD 03/06/2025 Performed By: #### L 501.2300, L500.2500 #### [facility] [address] [place], [address] Synovial Fluid RBC, WBC AND Diffon 02-26-2025 PATH COM/SYFL Reviewed Normal [facility] Comment on above: Order Comment: Comme nts: Left wrist aspirateComments: Left wrist aspirate Result Comment: NEGA TIVE FOR CRYSTALS. Sammie Fletcher MD 02/25/2025 AMENDED REPORT 02/26/25 0848 PATH COM/SYFL previously reported as: May follow Performed By: #### L 501.2300, L500.2500 #### [facility] [address] [place], [place], [address] CNOVon 02-22-2025 CNOV Office Visit (ORTHWS ) PACO WHITNEY ([id number]) 1935 M Date Time Provider Department 02/22/25 1:00 PM YNES TALAMANTES During your visit today, we recorded the following information about you: Mary Wagner MA 02/22/2025 1:42 PM Signed AMB ROOMING INTAKE FLOWSHEET DATA Pain Pain Level: 2 (as high as 10) Pain Location: (bilateral shoulders) Description: Aching, Sharp, Dull Duration Amount of Time: (ongoing) Frequency: Continuous Intervention/Comfort measure: Medication Ynes Talamantes PA-C 02/22/2025 1:42 PM Signed Ynes Talamantes PA-C Department of Orthopaedics [facility] [address] [facility] [facility] [facility] [address] Dept: [phone] Dept February 22, 2025 CHIEF COMPLAINT: Pain of the Left Shoulder and Pain of the Right Shoulder Bilateral Shoulder Pain: - Chronic bilateral shoulder pain, with the right shoulder being more painful than the left. - Limited ROM; pain exacerbated when lifting arms to touch head or face. - Recent x-rays on 02/05 showed significant arthritis in both shoulders. - Cortisone injections in both shoulders approximately [address] Noriega; left shoulder injection provided relief. - Noted asymmetry in shoulder size; right shoulder appears larger and more puffy compared to the left. - Right hand dominant, ambulates with the assistance of a rollator. Osteoarthritis: - Right knee is bothering him quite a bit as well, having difficulty climbing stairs and ambulating, is inquiring about a corticosteroid injection for the right knee as well. - [place] [address] Guzmán; limited flexion in the left knee. - Uses a rollator for mobility due to knee and hip pain. - Applies Blue Emu cream for pain relief. ASSESSMENT: M19.011, M19.012 Primary osteoarthritis of both shoulders (primary encounter diagnosis) M17.11 Primary osteoarthritis of right knee PLAN: 1. Primary osteoarthritis of both shoulders (M19.011) - Chronic, severe bilateral shoulder OA with significant joint space narrowing and deformity on X-rays from 02/05. - Provided intra-articular corticosteroid injections to both shoulders. - Educated patient on the option to repeat corticosteroid injections every 91 days if beneficial for pain relief. - Advised use of pillows to elevate head of bed to improve comfort and sleep quality. 2. Primary osteoarthritis of right knee (M17.11) - Chronic right knee OA, likely [id number]. - Ordered new X-rays of the right knee. - Discussed option for intra-articular corticosteroid injection to right knee after imaging is completed. Mr. Paco Whitney was advised as to contrast therapies and/or to take analgesics/anti-inflammatori es as needed and all contraindications were reviewed. OBJECTIVE: Mr. Paco Whitney is a pleasant 89 year old in no apparent distress. Gen:There were no vitals taken for this visit. nl development, non obese, no deformities ENT: Normocephalic, normal hearing, moist mucosa CV: Pulses:Radial= 2+ and symmetric, capillary refill < 2 secs, no peripheral edema/varicosities Skin: no rash, bruising or lesions. Good turgor. Psych: cooperative and appropriate, alert and oriented x 3, good mood and affect. Musculoskeletal: Arthritic changes noted in both shoulders, active forward elevation of about 85 degrees bilaterally. Passive range of motion was not performed, strength testing was not performed. Right knee with some arthritic changes, some tenderness to palpation along the medial joint line. Extension with about a 5 degree lag. Right knee flexion to about 110 degrees. In addition to the comprehensive evaluation, assessment and plan outlined above, and as a distinct and separate element to the visit today, separate from imaging tests for additional assessment and right knee pain, we have made the determination to proceed with an injection to aid in the management of the patient's condition. We discussed the risks, benefits, alternatives and expected outcomes of this injection in detail, and the patient agreed to proceed. The procedure was performed as detailed below. Large Joint Arthro/Inj: bilateral subacromial bursas 02/22/2025 1:42 PM The procedure site was prepped in the usual sterile fashion. Site: bilateral subacromial bursas Medications (Right): 6 mg betamethasone acetate-betamethasone sodium phosphate 6 mg/mL Medications (Left): 6 mg betamethasone acetate-betamethasone sodium phosphate 6 mg/mL Anesthetics (Right): 5 mL lidocaine (PF) 10 mg/mL (1 %) Anesthetics (Left): 5 mL lidocaine (PF) 10 mg/mL (1 %) Outcome: Tolerated well, no immediate complications Post-injection instructions were reviewed with the patient and the patient voiced understanding of these instructions. Informed Consent Consent Obtained: Verbal [place] Protocol A moment to CARE was complete (more content not included)... Normal [facility] XR KNEE 4V AP/PA BOTH+LAT/ME R RTon 02-22-2025 XR KNEE 4V AP/PA BOTH+LAT/ALEM RT * * *Final Report* * * DATE OF EXAM: Feb 22 2025 2:04PM WRX [id number] - XR KNEE 4V AP/PA BOTH+LAT/ALEM RT / PROCEDURE REASON: Primary osteoarthritis of right knee * * * * Physician Interpretation * * * * PROCEDURE: Right knee INDICATION: Primary osteoarthritis of right knee .PT STATES RIGHT KNEE PAIN TECHNIQUE: XR KNEE 4V AP/PA BOTH+LAT/ALEM RT COMPARISON: None FINDINGS: Severe medial and patellofemoral joint compartment narrowing with [id number] appearance and tricompartment spur formation. Chondrocalcinosis. No fracture or dislocation. Small joint effusion. Advanced vascular calcifications. Significant varus angulation. IMPRESSION: Advanced osteoarthrosis Reefer Engineer: [facility] Transcribe Date/Time: Feb 24 2025 5:22P Dictated by : SKYLAR JAIN MD This examination was interpreted and the report reviewed and electronically signed by: SKYLAR JAIN MD on Feb 24 2025 5:23PM EST [id number] Normal [facility] CNOVon 02-05-2025 CNOV Office Visit (FAMPWS ) PACO WHITNEY ([id number]) 1935 M Date Time Provider Department 02/05/25 3:00 PM [facility] During your visit today, we recorded the following information about you: Pulse Respiration Blood pressure Weight 76/minute 16/minute 110/68 86.4 kg Clarice Murillo MD 02/05/2025 3:42 PM Signed Chief Complaint Patient presents with: 6 Month Exam HPI Paco Whitney is a 89 year old male who presents here today for 6 month follow up. Pt recently discharged from [facility] to SNF as pt is not able to care for pt any longer. She is in [facility] due to Stroke with left side weakness. No bowel, Gi, or urinary issues. GERD: controlled on Protonix 40 mg daily. Chronic shoulder pain: Refers that bilateral shoulder pain seems to be getting worse. Taking Tylenol 650 mg daily prn. Had appt with Ortho that he was not able to keep. Dizziness: Using Meclizine 25 mg as needed which has been helpful. Edema: right ankle and foot swelling, improves over night. Uses diabetic socks. HTN: Taking ramipril 10 mg daily. Not currently checking blood pressure at home. Has had ongoing dizziness in the past, uses meclizine as needed. Stress test was completed in November 2022. AAA: Surgery 2022. Had follow up with Dr. Sultana (surgeon), had an US completed. Has stent in place. Us showed patent graft. No further follow up. COPD: Follows with Pulm Dr. Luna. Chronic neuropathy: Using cane for ambulation. Taking gabapentin 600 mg 3 times daily and Tylenol as needed. He experiences muscle spasms and cramps, particularly in the toes, which he describes as tightening up and hurting. He is currently taking vitamin D and drinking plenty of fluids. He also reports neuropathic pain, especially when standing barefoot on the floor, and is taking gabapentin for this condition. Past medical history, appointments, medications, allergies reviewed. Previous Medical History PAST MEDICAL HISTORY Diagnosis Date AAA (abdominal aortic aneurysm) without rupture Bronchitis, chronic (HCC) Diverticulitis 12/16/2014 Diverticulosis of colon with hemorrhage Essential hypertension, benign Focal atelectasis Rounded atelectasis GERD (gastroesophageal reflux disease) History of eye surgery 03/29/2011 Right eye Other and unspecified hyperlipidemia Peripheral neuropathy Rectal bleeding 12/16/2014 Retinal detachment with retinal defect, unspecified RIGHT EYE, WITH LENSE Rhabdomyolysis 07/18/2003 had as a result of Baycol Unspecified asthma(493.90) Unspecified cause of encephalitis, myelitis, and encephalomyelitis had 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 Romeo RPR RETINAL DTCHMNT DRG SUBRETINAL FLUID PC 2003 Laser repair retinal detach, right eye TONSILLECTOMY PRIMARY/SECONDARY Tonsillectomy VASECTOMY UNI/BI SPX W/POSTOP SEMEN EXAMS 1964 Family History FAMILY HISTORY Problem Relation Age of Onset Hypertension Mother other (Parkinsons disease) Mother Heart Father Heart Brother Heart surgery Cancer Brother of liver. Diabetes Brother Heart disease Son No Family History No Family History No COPD, lung cancer. Patient Allergies ALLERGIES Allergen Reactions Demerol [Meperidine* Mental Status Change Gave too high of dose Baycol Other: See Comments Rhabdoymyolysis Contrast Dye [Iodin* Intolerance pt needs to be oral hydrated after injection,..patient STATES HE IS NOT ALLERGIC TO IV DYE.. Lopid [Gemfibrozil] Other: See Comments Myalgia. Current Medications Current Outpatient Medications on File Prior to Visit Medication Sig ramipril (ALTACE) 10 mg capsule Take 1 capsule by mouth once daily. albuterol (PROVENTIL) 2.5 mg /3 mL (0.083 %) nebulizer solution Use 3 mL via nebulizer every 4 hours as needed for wheezing/shortness of breath. benzonatate (TESSALON PERLE) 100 mg capsule Take 2 capsules by mouth three times a day as needed. guaiFENesin (MUCINEX) 600 mg 12 hr tablet Take 2 tablets by mouth two times a day. SYMBICORT 160-4.5 mcg/actuation inhaler Inhale 2 puffs as instructed two times a day. pantoprazole DR (PROTONIX) 40 mg tablet Take 1 tablet by mouth daily before breakfast. Take on empty stomach, 1/2 hr before meal. tamsulosin ( (more content not included)... Normal [facility] XR SHLDR >/=3V AP/TIA AP/OTH R LTon 02-05-2025 XR SHLDR >/=3V AP/TIA AP/OTHR LT * * *Final Report* * * DATE OF EXAM: Feb 05 2025 4:07PM WOX [id number] - XR SHLDR >/=3V AP/TIA AP/OTHR LT / PROCEDURE REASON: multiple diagnoses * * * * Physician Interpretation * * * * XR SHLDR >/=3V AP/TIA AP/OTHR RT, XR SHLDR >/=3V AP/TIA AP/OTHR LT Ordering Physician: CLARICE MURILLO [facility] Clinical Statement: Chronic pain Comparison: 10/11/2022 FINDINGS: Bone mineralization is decreased. There is no acute fracture or dislocation. Advanced degenerative changes are present within the glenohumeral joint bilaterally with complete loss of the joint space, subchondral sclerosis and cyst formation. There is underlying osseous remodeling with exuberant osteophyte formation. Degenerative changes are noted within the acromioclavicular joints bilaterally to a lesser extent. Soft tissues are unremarkable. IMPRESSION: Advanced bilateral glenohumeral osteoarthritis. Reefer Engineer: [facility] Transcribe Date/Time: Feb 08 2025 7:55A Dictated by : FRANCIA EDEN MD This examination was interpreted and the report reviewed and electronically signed by: FRANCIA EDEN MD on Feb 08 2025 7:56AM EST [id number] Normal [facility] XR SHLDR >/=3V AP/TIA AP/OTH R RTon 02-05-2025 XR SHLDR >/=3V AP/TIA AP/OTHR RT * * *Final Report* * * DATE OF EXAM: Feb 05 2025 4:07PM WOX [id number] - XR SHLDR >/=3V AP/TIA AP/OTHR RT / PROCEDURE REASON: multiple diagnoses * * * * Physician Interpretation * * * * XR SHLDR >/=3V AP/TIA AP/OTHR RT, XR SHLDR >/=3V AP/TIA AP/OTHR LT Ordering Physician: CLARICE MURILLO [facility] Clinical Statement: Chronic pain Comparison: 10/11/2022 FINDINGS: Bone mineralization is decreased. There is no acute fracture or dislocation. Advanced degenerative changes are present within the glenohumeral joint bilaterally with complete loss of the joint space, subchondral sclerosis and cyst formation. There is underlying osseous remodeling with exuberant osteophyte formation. Degenerative changes are noted within the acromioclavicular joints bilaterally to a lesser extent. Soft tissues are unremarkable. IMPRESSION: Advanced bilateral glenohumeral osteoarthritis. Reefer Engineer: [facility] Transcribe Date/Time: Feb 08 2025 7:55A Dictated by : FRANCIA EDEN MD This examination was interpreted and the report reviewed and electronically signed by: FRANCIA EDEN MD on Feb 08 2025 7:56AM EST [id number] Normal [facility] Comprehensive metabolic 2000 panelon 01-30-2025 Albumin [Mass/Vol] 3.8 g/dL Low 3.9-4.9 [facility] Comment on above: Order Comment: Speci men Type: BLOOD SPECIMENOrdering Facility: [facility] Address: [address] [place] [address] Performed By: #### 2 4323-8, 25584-9 ####[facility] [id number] [place] [address] [place] AL[place] [Catalytic activity/Vol] 91 U/L Normal 38-113 [facility] [facility] Comment on above: Order Comment: Speci men Type: BLOOD SPECIMENOrdering Facility: [facility] Address: [address] [place] [address] Performed By: #### 2 4323-8, 30322-6 ####[facility] LABCLIA [id number] [place] [address] [place] ALT [Catalytic activity/Vol] 15 U/L Normal 10-54 [facility] Comment on above: Order Comment: Speci men Type: BLOOD SPECIMENOrdering Facility: [facility] Address: [address] [place] [address] Performed By: #### 2 4323-8, 99982-1 ####[facility] [id number] [place] [id number] [place] Anion gap [Moles/Vol] 10 mmol/L Normal 8-15 [facility] Comment on above: Order Comment: Speci men Type: BLOOD SPECIMENOrdering Facility: [facility] Address: [address] [place] [address] Performed By: #### 2 4323-8, 43611-3 ####[facility]CL[facility] [id number] [place] [id number] [place] AST [Catalytic activity/Vol] 29 U/L Normal 14-40 [facility] Comment on above: Order Comment: Speci men Type: BLOOD SPECIMENOrdering Facility: [facility] Address: [address] [place] [address] Performed By: #### 2 4323-8, 72174-7 ####[facility] [id number] [place] [address] [place] Bilirubin [Mass/Vol] 0.9 mg/dL Normal 0.2-1.3 [facility] Comment on above: Order Comment: Speci men Type: BLOOD SPECIMENOrdering Facility: [facility] Address: [address] [place] [address] Performed By: #### 2 4323-8, 86656-1 ####[facility] [id number] [place] [address] [place] Calcium [Mass/Vol] 10.2 mg/dL Normal 8.5-10.2 [facility] Comment on above: Order Comment: Speci men Type: BLOOD SPECIMENOrdering Facility: [facility] Address: [address] [place] [address] Performed By: #### 2 4323-8, 20074-0 ####[facility] [id number] [place] [address] [place] Chloride [Moles/Vol] 107 mmol/L Normal 98-107 [facility] Comment on above: Order Comment: Speci men Type: BLOOD SPECIMENOrdering Facility: [facility] Address: [address] [place] [address] Performed By: #### 2 4323-8, 82950-4 ####[facility] [id number] [place] [id number] [place] CO2 [Moles/Vol] 25 mmol/L Normal 22-30 [facility] Comment on above: Order Comment: Speci men Type: BLOOD SPECIMENOrdering Facility: [facility] Address: [address] [place] [address] Performed By: #### 2 4323-8, 79633-9 ####[facility] LABIA [id number] [address] [address] [place] Creatinine [Mass/Vol] 1.11 mg/dL Normal 0.73-1.22 [facility] Comment on above: Order Comment: Speci men Type: BLOOD SPECIMENOrdering Facility: [facility] Address: [address] [place] [address] Performed By: #### 2 4323-8, 75465-1 ####[facility] LABIA [id number] [place] [address] [place] eGFRcr SerPlBld CKD-EPI 2020 64 mL/min/1.73m??? Normal >=60 [facility] Comment on above: Order Comment: Speci men Type: BLOOD SPECIMENOrdering Facility: [facility] Address: [address] [place] [address] Result Comment: Toya mated Glomerular Filtration Rate (eGFR) is calculated using the 2020 CKD-EPI creatinine equation. This equation utilizes serum creatinine, sex, and age as parameters. The creatinine assay has traceable calibration to isotope dilution-mass spectrometry. Refer to KDIGO guidelines for clinical interpretation. In patients with unstable renal function, e.g. those with acute kidney injury, the eGFR may not accurately reflect actual GFR. Performed By: #### 2 4323-8, 17310-6 ####[facility] LABIA [id number] [address] [address] [place] Glucose [Mass/Vol] 90 mg/dL Normal 74-99 [facility] Comment on above: Order Comment: Speci men Type: BLOOD SPECIMENOrdering Facility: [facility] Address: [address] [place] [address] Result Comment: The [place] Diabetes Association (ADA) provides guidance for cutoff values for fasting glucose and random glucose. The ADA defines fasting as no caloric intake for at least 8 hours. Fasting plasma glucose results between 100 to 125 [...] Standards of Medical Care in Diabetes 2016, [place] [employer]. Diabetes Care. 2016.39(Suppl 1). Performed By: #### 2 4323-8, 79531-0 ####[facility]CL[facility] [id number] [place] [address] [place] Potassium [Moles/Vol] 4.8 mmol/L Normal 3.7-5.1 [facility] Comment on above: Order Comment: Speci men Type: BLOOD SPECIMENOrdering Facility: [facility] Address: [address] [place] [address] Performed By: #### 2 4323-8, ####[facility]CL[facility] [id number] [place] [address] [place] Protein [Mass/Vol] 6.5 g/dL Normal 6.3-8.0 [facility] Comment on above: Order Comment: Speci men Type: BLOOD SPECIMENOrdering Facility: [facility] Address: [address] [place] [address] Performed By: #### 2 4323-8, ####[facility]CL[facility] [id number] [address] [address] [place] Sodium [Moles/Vol] 142 mmol/L Normal 136-144 [facility] Comment on above: Order Comment: Speci men Type: BLOOD SPECIMENOrdering Facility: [facility] Address: [address] [place] [address] Performed By: #### 2 4323-8, ####[facility]CLIA [id number] [address] [address] [place] Urea nitrogen [Mass/Vol] 29 mg/dL High 9-24 [facility] Comment on above: Order Comment: Maryi men Type: BLOOD SPECIMENOrdering Facility: [facility] Address: [address] [place] [address] Performed By: #### 2 4323-8, 14684-3 ####[facility] [id number] [address] [address] [place] HbA1c (Bld)on 01-30-2025 Average glucose Estimated from glycated hemoglobin (Bld) [Mass/Vol] 88 mg/dL Normal [facility] Comment on above: Order Comment: Zach vinson Type: BLOOD SPECIMENOrdering Facility: [facility] Address: [address] [place] [address] Result Comment: eAG: (Estimated average glucose) is a calculated value from HgbA1c and is manufacturers representative of the average blood glucose level in the last 2-3 month period. Performed By: #### 5 5454-3 ####[facility]CL[facility] [id number] [place] [address] [place] HbA1c (Bld) [Mass fraction] 4.7 % Normal 4.3-5.6 [facility] Comment on above: Order Comment: Maryi men Type: BLOOD SPECIMENOrdering Facility: [facility] Address: [address] [place] [address] Result Comment: [place] Diabetes Association guidelines indicate that patients with HgbA1c in the range 5.7-6.4% are at increased risk for development of diabetes, and intervention by lifestyle modification may be beneficial. HgbA1c greater or equal to 6.5% is considered diagnostic of diabetes. Performed By: #### 5 5454-3 ####[facility]CL[facility] [id number] [address] [address] [place] Lipid 1996 panelon 5 Cholesterol [Mass/Vol] 143 mg/dL Normal <200 [facility] Comment on above: Order Comment: Speci men Type: BLOOD SPECIMENOrdering Facility: [facility] Address: [address] [place] [address] Result Comment: <200 mg/dL, Desirable 200-239 mg/dL, Borderline high >239 mg/dL, High Performed By: #### 2 4323-8, 79813-2 ####[facility]CL[facility] [id number] [facility] [place] [id number] [address] [place] Cholesterol in HDL [Mass/Vol] 29 mg/dL Low >39 [facility] Comment on above: Order Comment: Speci men Type: BLOOD SPECIMENOrdering Facility: [facility] Address: [address] [place] [address] Result Comment: 40-5 9 mg/dL, Acceptable >59 mg/dL, High: Negative risk factor for coronary heart disease <40 mg/dL, Low: Positive risk factor for coronary heart disease Performed By: #### 2 4323-8, 58191-4 ####[facility]CL[facility] [id number] [facility] [id number] [address] [place] Cholesterol in LDL [Mass/Vol] 86 mg/dL Normal <100 [facility] Comment on above: Order Comment: Speci men Type: BLOOD SPECIMENOrdering Facility: [facility] Address: [address] [place] [address] Result Comment: <100 mg/dL, Optimal 100-129 mg/dL, Near optimal/above optimal 130-159 mg/dL, Borderline high 160-189 mg/dL, High >189 mg/dL, Very high Secondary prevention optimal LDL Cholesterol levels are recommended to be <70 mg/dL LDL cholesterol is calculated using the Torres-NIH equation. Performed By: #### 2 4323-8, 63943-2 ####[facility]CLIA [id number] [place] [address] [place] Cholesterol in LDL/Cholesterol in HDL [Mass ratio] 2.97 {ratio} High <2.54 [facility] Comment on above: Order Comment: Speci men Type: BLOOD SPECIMENOrdering Facility: [facility] Address: [address] [place] [address] Result Comment: Arnoldo ross: 1. National Cholesterol Education Program ATP III Guideline At-A-Glance Quick Desk Reference: National Heart, Lung, and Blood [place]. National Institutes of Health. 2001: NIH Publication No. 01-3305. 2. An International Atherosclerosis Society position paper: global recommendations for the management of dyslipidemia: executive summary, Atherosclerosis. 2014: 232(2):410-413. Performed By: #### 2 4323-8, 45543-6 ####[facility]CLIA [id number] [place] [address] [place] Cholesterol in VLDL [Mass/Vol] 25 mg/dL Normal <30 [facility] Comment on above: Order Comment: Marychichi vinson Type: BLOOD SPECIMENOrdering Facility: [facility] Address: [address] [place] [address] Performed By: #### 2 4323-8, 08346-9 ####[facility]CLIA [id number] [place] [address] [place] Cholesterol non HDL [Mass/Vol] 114 mg/dL Normal <130 [facility] Comment on above: Order Comment: Marychichi vinson Type: BLOOD SPECIMENOrdering Facility: [facility] Address: [address] [place] [address] Result Comment: <130 mg/dL, Optimal 130-159 mg/dL, Near optimal/above optimal 160-189 mg/dL, Borderline high 190-219 mg/dL, High >219 mg/dL, Very high Secondary prevention optimal non HDL Cholesterol levels are recommended to be <100 mg/dL Performed By: #### 2 4323-8, 26759-0 ####[facility]CL[facility] [id number] [address] [address] [place] Cholesterol.total/Chol esterol in HDL [Mass ratio] 4.93 {ratio} Normal <5.10 [facility] Comment on above: Order Comment: Speci men Type: BLOOD SPECIMENOrdering Facility: [facility] Address: [address] [place] [address] Performed By: #### 2 4323-8, 14830-6 ####[facility]CL[facility] [id number] [address] [address] [place] FASTING TIME 12 hrs Normal [facility] Comment on above: Order Comment: Speci men Type: BLOOD SPECIMENOrdering Facility: [facility] Address: [address] [place] [address] Performed By: #### 2 4323-8, 69691-8 ####[facility]CL[facility] [id number] [address] [address] [place] Triglyceride [Mass/Vol] 158 mg/dL High <150 [facility] Comment on above: Order Comment: Speci men Type: BLOOD SPECIMENOrdering Facility: [facility] Address: [address] [place] [address] Result Comment: <150 mg/dL, Normal 150-199 mg/dL, Borderline high 200-499 mg/dL, High >499 mg/dL, Very high Performed By: #### 2 4323-8, 64469-0 ####[facility]CL[facility] [id number] [address] [address] [place] Body Fluid Culton 11-14-2024 BFC Left wrist aspirate No growth aerobically. Normal [facility] Comment on above: Performed By: #### L 501.2300, L500.4050, L100.0100, L500.4100 #### [facility] [address] [place], [place], [id number] Plastic Surgery Visit Report on 11-13-2024 Plastic Surgery Visit Report [facility] Plastic Reconstructive Surgery [address], [address] [place] [address] OFFICE VISIT Date of Service: 11/13/24 MR#: [id number] Acct: [id number] Name: PACO WHITNEY Rep #: [id number] : 1935 Provider: Dr. Dennis Rocha MD Age/Sex: 89/M Location: [place] [address] Status: Signed Intake Vital Signs 3 11/08/24 21:03 Height 5 ft 9 in Intake Visit Reasons: ED FOLLOW UP Chief Complaint: ED follow up left wrist Allergies cerivastatin sodium (From Baycol) Allergy (Severe, Verified 11/13/24 13:53) Other gemfibrozil (From Lopid) Adverse Reaction (Verified 11/13/24 13:53) Other meperidine (From Demerol) Adverse Reaction (Verified 11/13/24 13:53) Other Medications 3 ???Medication ???Instructions ???Recorded ???Confirmed ???Type albuterol sulfate 90 mcg/actuation 2 puff inhalation Q4H PRN Sob / Or 07/05/14 11/08/24 History aerosol inhaler Wheezing ramipril 10 mg capsule 10 mg PO DAILY BP 07/05/14 5 History pantoprazole 40 mg tablet,delayed 40 mg PO DAILY gerd 08/21/1410/17 History release cholecalciferol (vitamin D3) 25 3,000 unit PO BID Supplement 11/2311/08/24 History mcg (1,000 unit) tablet tamsulosin 0.4 mg capsule 0.4 mg PO QHS Prostate 11/23/14 History budesonide-formoterol HFA 160 2 puff inhalation BID Breathing 11/08/24 History mcg-4.5 mcg/actuation aerosol inhaler fenofibrate 160 mg tablet 160 mg PO DAILY cholesterol 11/08/24 History albuterol sulfate 2.5 mg/3 mL 2.5 mg continuous nebulization Q4H 11/08/24 11/13/24 History (0.083 %) solution for nebulization PRN wheezing benzonatate 100 mg capsule 200 mg PO TID PRN cough 11/08/24 0 11/13/24 History gabapentin 600 mg tablet 600 mg PO TID 11/08/24 11/13/24 Hi story latanoprost 0.005 % eye drops 1 drp ophthalmic (eye) DAILY 11/0811/13/24 History amoxicillin 875 mg-potassium 1 tab PO BID #14 tabs 11/10/24 Rx clavulanate 125 mg tablet polyethylene glycol 3350 17 17 g PO DAILY 1 month #510 grams 0 11/10/24 11/13/24 Rx gram/dose oral powder (Miralax) guaifenesin 600 mg tablet, 1,200 mg PO BID 11/13/24 11/13/24 History extended release 12 hr (Mucus Relief ER) Have you fallen in the past year?: No PFSH Medical History PAD (peripheral artery disease) Renal cyst Vertebrobasilar artery syndrome Diverticulosis Kidney stone Lung nodule AAA (abdominal aortic aneurysm) Bilateral carotid artery stenosis Asthma Arthritis Diverticular hemorrhage Lower GI bleed BPH (benign prostatic hyperplasia) GERD (gastroesophageal reflux disease) Peripheral neuropathy History of gastrointestinal bleeding Hx-TIA (transient ischemic attack) Chronic obstructive lung disease HTN (hypertension), benign Surgical History Total knee replacement status History of colonoscopy ( 03/2019) History of esophagogastroduodenoscopy (EGD) ( 03/2019) History of back surgery History of detached retina repair Status post vasectomy History of cholecystectomy History of left knee replacement History of back surgery Social History Smoking Status: Never smoker HPI ED FOLLOW UP Details: Paco Whitney is a an 89-year-old male admitted to [facility] on 08 November 2024 for left hand and wrist swelling likely secondary to a hematoma but possibly secondary to cellulitis. Negative joint tap (no growth on cultures and no crystals). X-ray did not demonstrate any acute fractures. He was discharged on 10 November 2024. Today he presents in clinic and is doing better overall. Pain is controlled. Feels like the swelling is going down. No fevers or chills Exam Details Left Upper Extremity Inspection: Significant improvement of left upper extremity swelling around the hand and wrist. The hematoma on the radial side of the hand near the thumb base has resolved. No skin breaks and tight skin/pressure or tension. No induration or drainage. Palpation: No pain with axial loading today. Motor: Able to bend and extend all MP, PIP, and DIP joints. Sensory: Intact to light touch on the radial and ulnar borders. Vascular: Finger tips are warm and well perfused with <2 second capillary refill. Coding Level of Care Code Off vis,est,level 3 Diagnoses Swelling of joint of left wrist M25.432 Assessment and Plan (No Qualifiers) Assessment and Plan (1) Swelling of joint of left wrist: Status: Acute Plan: No crystals on the bloody joint aspirate. Negative cultures Hematoma/swelling resolved with rest and elevation F/u as needed Patient and happy with the plan Clinical Qu (more content not included)... Normal [facility] Basic Metabolic Profile (BMP )on 11-11-2024 BUN Normal 4-19 [facility] Comment on above: Result Comment: Canc elled via OM: Order cancelled - Patient discharged Performed By: #### L 501.2300, L500.2500 #### [facility] [address] [facility] [address] BUN/CRE Normal 10-20 [facility] Comment on above: Result Comment: Canc elled via OM: Order cancelled - Patient discharged Performed By: #### L 501.2300, L500.2500 #### [facility] [address] [facility] [address] Calcium Normal 7.6-11.0 [facility] Comment on above: Result Comment: Canc elled via OM: Order cancelled - Patient discharged Performed By: #### L 501.2300, L500.2500 #### [facility] [address] [facility] [address] CL Normal 98-108 [facility] Comment on above: Result Comment: Canc elled via OM: Order cancelled - Patient discharged Performed By: #### L 501.2300, L500.2500 #### [facility] [address] [facility] [address] CO2 Normal 21.0-32.0 [facility] Comment on above: Result Comment: Canc elled via OM: Order cancelled - Patient discharged Performed By: #### L 501.2300, L500.2500 #### [facility] [address] [place], [address] CREAT,SERUM Normal 0.70-1.20 [facility] Comment on above: Result Comment: Canc elled via OM: Order cancelled - Patient discharged Performed By: #### L 501.2300, L500.2500 #### [facility] [address] [place], [address] eGFR Normal >60 [facility] Comment on above: Result Comment: Canc elled via OM: Order cancelled - Patient discharged Performed By: #### L 501.2300, L500.2500 #### [facility] [address] [place], [address] GAP Normal 5-15 [facility] Comment on above: Result Comment: Canc elled via OM: Order cancelled - Patient discharged Performed By: #### L 501.2300, L500.2500 #### [facility] [address] [place], [address] GLU Normal 70-99 [facility] Comment on above: Result Comment: Canc elled via OM: Order cancelled - Patient discharged Performed By: #### L 501.2300, L500.2500 #### [facility] [address] [place], [address] Potassium Normal 3.3-5.1 [facility] Comment on above: Result Comment: Canc elled via OM: Order cancelled - Patient discharged Performed By: #### L 501.2300, L500.2500 #### [facility] [address] [place], [address] Basic Metabolic Profile (BMP) Normal 133-145 [facility] Comment on above: Result Comment: Canc elled via OM: Order cancelled - Patient discharged Performed By: #### L 501.2300, L500.2500 #### [facility] [address] [place], [address] CBC W/Diff, Automatedon 04-2 Absolute Neut Normal 2.0-7.7 [facility] Comment on above: Result Comment: Canc elled via OM: Order cancelled - Patient discharged Performed By: #### L 501.2300, L500.2500 #### [facility] [address] [place] [place], [address] HCT Normal 40-54 [facility] Comment on above: Result Comment: Canc elled via OM: Order cancelled - Patient discharged Performed By: #### L 501.2300, L500.2500 #### [facility] [address] [place], [address] HGB Normal 13.0-16.5 [facility] Comment on above: Result Comment: Canc elled via OM: Order cancelled - Patient discharged Performed By: #### L 501.2300, L500.2500 #### [facility] [address] [place], [address] MCH Normal 27.0-32.0 [facility] Comment on above: Result Comment: Canc elled via OM: Order cancelled - Patient discharged Performed By: #### L 501.2300, L500.2500 #### [facility] [address] [place], [address] MCHC Normal 32-36 [facility] Comment on above: Result Comment: Canc elled via OM: Order cancelled - Patient discharged Performed By: #### L 501.2300, L500.2500 #### [facility] [address] [place], [address] MCV Normal 80-94 [facility] Comment on above: Result Comment: Canc elled via OM: Order cancelled - Patient discharged Performed By: #### L 501.2300, L500.2500 #### [facility] [address] [place], [address] NEUT% Normal 47-70 [facility] Comment on above: Result Comment: Canc elled via OM: Order cancelled - Patient discharged Performed By: #### L 501.2300, L500.2500 #### [facility] [address] [place], [address] PLT Normal 150-450 [facility] Comment on above: Result Comment: Canc elled via OM: Order cancelled - Patient discharged Performed By: #### L 501.2300, L500.2500 #### [facility] [address] [place], [address] RBC Normal 4.6-6.2 [facility] Comment on above: Result Comment: Canc elled via OM: Order cancelled - Patient discharged Performed By: #### L 501.2300, L500.2500 #### [facility] [address] [place], [address] RDW CV Normal 11.6-14.6 [facility] Comment on above: Result Comment: Canc elled via OM: Order cancelled - Patient discharged Performed By: #### L 501.2300, L500.2500 #### [facility] [address] [place], [address] RDW SD Normal 35.1-43.9 [facility] Comment on above: Result Comment: Canc elled via OM: Order cancelled - Patient discharged Performed By: #### L 501.2300, L500.2500 #### [facility] [address] [place], [address] WBC Normal 4.4-11.0 [facility] Comment on above: Result Comment: Canc elled via OM: Order cancelled - Patient discharged Performed By: #### L 501.2300, L500.2500 #### [facility] [address] [place], [address] Culture, Anaerobic Any Sourc sayda 11-11-2024 CUAN Left wrist aspirate No anaerobic bacteria isolated. Normal [facility] Comment on above: Performed By: #### L 501.2300, L500.4050, L100.0100, L500.4100 #### [facility] [address] [place], [address] Absolute neutrophil countOrd ered By: Riky Li on 11-10-2024 Neutrophils (Bld) [#/Vol] 4.9 10*3/uL 2.0-7.7 [facility] Anion gap in Serum or Plasma Ordered By: Riky Li on 11-10-2024 Anion gap [Moles/Vol] 9 mmol/L - [facility] BUN/creatinine ratioOrdered By: Riky Li on 11-10-2024 Urea nitrogen/Creatinine [Mass ratio] 19.7 mg/mg 05-06 [facility] Basic Metabolic Profile (BMP )on 11-10-2024 BUN/CRE 19.7 RATIO Normal 05-06 [facility] Comment on above: Performed By: #### L 501.2300, L500.2500 #### [facility] [address] [place], [address] Calcium [Mass/Vol] 9.1 mg/dL Normal 7.6-11.0 [facility] Comment on above: Performed By: #### L 501.2300, L500.2500 #### [facility] [address] [place], [address] Chloride [Moles/Vol] 105 mmol/L Normal 98-108 [facility] Comment on above: Performed By: #### L 501.2300, L500.2500 #### [facility] [address] [place], [address] CO2 [Moles/Vol] 24.1 mmol/L Normal 21.0-32.0 [facility] Comment on above: Performed By: #### L 501.2300, L500.2500 #### [facility] [address] [place], [address] Creatinine [Mass/Vol] 1.19 mg/dL Normal 0.70-1.20 [facility] Comment on above: Performed By: #### L 501.2300, L500.2500 #### [facility] [address] [place], [address] ECRCL 48.56 ml/min Low 50-250 [facility] Comment on above: Performed By: #### L 501.2300, L500.2500 #### [facility] [address] [place], [address] GAP 9 Normal 5-15 [facility] Comment on above: Performed By: #### L 501.2300, L500.2500 #### [facility] [address] [place], [address] GFR/1.73 sq M.predicted among non-blacks MDRD (S/P/Bld) [Vol rate/Area] 59 mL/min/{1.73_m2} Low >60 [facility] Comment on above: Result Comment: mL/m in/1.73m2 CKD-EPI Creatinine Equation (2020) Performed By: #### L 501.2300, L500.2500 #### [facility] [address] [place], [address] Glucose [Mass/Vol] 101 mg/dL High 70-99 [facility] Comment on above: Performed By: #### L 501.2300, L500.2500 #### [facility] [address] [place], [address] Potassium [Moles/Vol] 4.3 mmol/L Normal 3.3-5.1 [facility] Comment on above: Performed By: #### L 501.2300, L500.2500 #### [facility] [address] [place], [address] Sodium [Moles/Vol] 137 mmol/L Normal 133-145 [facility] Comment on above: Performed By: #### L 501.2300, L500.2500 #### [facility] [address] [place], [address] Urea nitrogen [Mass/Vol] 23 mg/dL High 4-19 [facility] Comment on above: Performed By: #### L 501.2300, L500.2500 #### [facility] [address] [place], [address] Basophil percentageOrdered B y: Riky Guillermo on 11-10-2024 Basophils/100 WBC (Bld) 0.6 % 0-1 [facility] CBC W/Diff, Automatedon 10-17 Absolute Lymph 1.91 X10 3/uL Normal 0.83-4.51 [facility] Comment on above: Performed By: #### L 501.2300, L500.2500 #### [facility] [address] [place], [address] Absolute Neut 4.9 X10 3/uL Normal 2.0-7.7 [facility] Comment on above: Performed By: #### L 501.2300, L500.2500 #### [facility] [address] [place], [address] Basophils/100 WBC (Bld) 0.6 % Normal 0-1 [facility] Comment on above: Performed By: #### L 501.2300, L500.2500 #### [facility] [address] [place], [address] Eosinophils/100 WBC (Bld) 2.4 % Normal 0-5 [facility] Comment on above: Performed By: #### L 501.2300, L500.2500 #### [facility] [address] [place], [address] Erythrocyte distribution width (RBC) [Ratio] 14.0 % Normal 11.6-14.6 [facility] Comment on above: Performed By: #### L 501.2300, L500.2500 #### [facility] [address] [place] [place], [address] Hematocrit (Bld) [Volume fraction] 38.7 % Low 40-54 [facility] Comment on above: Performed By: #### L 501.2300, L500.2500 #### [facility] [address] [place], [address] Hemoglobin (Bld) [Mass/Vol] 12.9 g/dL Low 13.0-16.5 [facility] Comment on above: Performed By: #### L 501.2300, L500.2500 #### [facility] [address] [place], [address] IG% 0.400 Normal 0.0-0.9 [facility] Comment on above: Result Comment: IG% - Immature Granulocytes (promyelocytes, myelocytes and metamyelocytes) > 1% indicates that a LEFT SHIFT is Present. Performed By: #### L 501.2300, L500.2500 #### [facility] [address] [place] [place], [address] Lymphocytes/100 WBC (Bld) 24.1 % Normal 19-41 [facility] Comment on above: Performed By: #### L 501.2300, L500.2500 #### [facility] [address] [place], [address] MCH (RBC) [Entitic mass] 32.2 pg High 27.0-32.0 [facility] Comment on above: Performed By: #### L 501.2300, L500.2500 #### [facility] [address] [place], [address] MCHC (RBC) [Mass/Vol] 33.3 g/dL Normal 32-36 [facility] Comment on above: Performed By: #### L 501.2300, L500.2500 #### [facility] [address] [place], [address] MCV (RBC) [Entitic vol] 96.5 fL High 80-94 [facility] Comment on above: Performed By: #### L 501.2300, L500.2500 #### [facility] [address] [place], [address] Monocytes/100 WBC (Bld) 10.6 % High 0-10 [facility] Comment on above: Performed By: #### L 501.2300, L500.2500 #### [facility] [address] [place], [address] Neutrophils/100 WBC (Bld) 61.9 % Normal 47-70 [facility] Comment on above: Performed By: #### L 501.2300, L500.2500 #### [facility] [address] [place], [address] Nucleated RBC (Bld) [#/Vol] 0 10*3/uL Normal 0-5 [facility] Comment on above: Performed By: #### L 501.2300, L500.2500 #### [facility] [address] [place], [address] Platelet mean volume (Bld) [Entitic vol] 9.4 fL Normal 6.2-12.0 [facility] Comment on above: Performed By: #### L 501.2300, L500.2500 #### [facility] [address] [place], [address] Platelets (Bld) [#/Vol] 181 10*3/uL Normal 150-450 [facility] Comment on above: Performed By: #### L 501.2300, L500.2500 #### [facility] [address] [place], [address] RBC (Bld) [#/Vol] 4.01 10*6/uL Low 4.6-6.2 [facility] Comment on above: Performed By: #### L 501.2300, L500.2500 #### [facility] [address] [place], [address] RDW SD 49.6 fl High 35.1-43.9 [facility] Comment on above: Performed By: #### L 501.2300, L500.2500 #### [facility] [address] [place], [address] WBC (Bld) [#/Vol] 7.9 10*3/uL Normal 4.4-11.0 [facility] Comment on above: Performed By: #### L 501.2300, L500.2500 #### [facility] [address] [place], [address] Carbon dioxide, total [Moles /volume] in Central venous bloodOrdered By: Riky Li on 11-10-2024 CO2 [Moles/Vol] 24.1 mmol/L 21.0-32.0 [facility] Chloride assayOrdered By: Moses Li on 11-10-2024 Chloride [Moles/Vol] 105 mmol/L 98-108 [facility] Discharge Instructionon 10-17 Discharge Instruction [facility] Medical Records Department [address] [place] [address] Instructions for Home/Discharge Instructions 11/10/24 0940 MR#: [id number] Acct: [id number] Name: PACO WHITNEY Rep #: [id number] : 1935 89 From: Riky Li MD PCP: Dr. Clarice Murillo MD Status:ADM IN Discharge Instructions DC O2, CPAP, BIPAP needs Home O2 Discharge instructions: No Follow Up Care Test Results: Test results from this visit will be discussed in further detail at your follow-up appointment, if applicable. Discharge Plan Admission Admit Date/Time: 11/08/24 20:32 Primary Reason for Your Visit: Left hand possible small hematoma secondary to small trauma and cellulitis Attending Provider: Riky Li Primary Care Provider: Clarice Murillo Consulting Providers: Evelyn Doss Instructions Additional Instructions / Restrictions: Plastic surgery discharge instructions Elevate left upper extremity above heart, especially while sleeping but during the course of the day as well. Return if left hand and wrist becomes hot and swollen or if there is any fevers or chills. Follow-up with me in clinic in 3 days at [facility] on 13 November 2024, Discharge Orders/Prescriptions Prescriptions: New polyethylene glycol 3350 [Miralax] 17 gram/dose powder 17 g PO DAILY 30 Days Qty: 510 0RF amoxicillin-pot clavulanate 875-125 mg tablet 1 tab PO BID Qty: 14 0RF Continued albuterol sulfate 1 INHALER inhaler 2 puff inhalation Q4H PRN (Reason: Sob /Or Wheezing) ramipril 10 MG capsule 10 mg PO DAILY Patient Comments: BLOOD PRESSURE pantoprazole 40 MG tablet 40 mg PO DAILY Patient Comments: ACID REFLUX tamsulosin 0.4 MG capsule 0.4 mg PO QHS Patient Comments: PROSTATE cholecalciferol (vitamin D3) 1,000 UNIT tablet 3,000 unit PO BID budesonide-formoterol 1 INHALER inhaler 2 puff inhalation BID fenofibrate 160 MG tablet 160 mg PO DAILY gabapentin 600 mg tablet 600 mg PO TID benzonatate 100 mg capsule 200 mg PO TID PRN (Reason: cough) latanoprost 0.005 % drops 1 drp ophthalmic (eye) DAILY albuterol sulfate 2.5 mg /3 mL (0.083 %) solution for nebulization 2.5 mg continuous nebulization Q4H PRN (Reason: wheezing) Patient Comments: PT HAS NOT USED YET Discontinued loperamide 2 MG capsule 2 mg PO Q2H PRN (Reason: Diarrhea) Referrals / Follow Up: Clarice Murillo MD [Primary Care Provider] - Within 2 Weeks Dennis Rocha MD [Med Staff - Active Staff] - (Follow-up in 3 days at [facility] in clinic) Disposition Disposition (needs filled in before D/C Order can be placed): Home, Self Care 11/10/24 0377 Riky Li MD CC: Dr. Evelyn Doss DO; Dr. Clarice Murillo MD Signed Normal [facility] Eosinophil percentageOrdered By: Riky Li on 11-10-2024 Eosinophils/100 WBC (Bld) 2.4 % 0-5 [facility] Erythrocyte distribution wid th (RBC) [Ratio]Ordered By: Riky Li on 11-10-2024 Erythrocyte distribution width (RBC) [Entitic vol] 49.6 fL High 35.1-43.9 [facility] Erythrocyte distribution wid th ratioOrdered By: Riky Li on 11-10-2024 Erythrocyte distribution width (RBC) [Ratio] 14.0 % 11.6-14.6 [facility] Estimation of creatinine alan aranceOrdered By: Riky Li on 11-10-2024 Estimated Creatinine Clearance Calc 48.56 ml/min Low 50-250 [facility] GFR/1.73 sq M.predicted mauro g non-blacks MDRD (S/P/Bld) [Vol rate/Area]Ordered By: Riky Li on 11-10-2024 Estimated GFR (MDRD) Non-Af Amer 59 Low >60 [facility] Comment on above: mL/min/1.73m2 CKD-EP I Creatinine Equation (2020) Hematocrit Auto (Bld) [Volum e fraction]Ordered By: Riky Li on 11-10-2024 Hematocrit (Bld) [Volume fraction] 38.7 % Low 40-54 [facility] Hemoglobin measurementOrdere d By: Riky Li on 11-10-2024 Hemoglobin (Bld) [Mass/Vol] 12.9 g/dL Low 13.0-16.5 [facility] Immature granulocytes/100 WB C Auto (Bld)Ordered By: Riky Li on 11-10-2024 Immature granulocytes/100 WBC (Bld) 0.400 % 0.0-0.9 [facility] Comment on above: IG% - Immature Granu locytes (promyelocytes, myelocytes and metamyelocytes) > 1% indicates that a LEFT SHIFT is Present. Lymphocytes Auto (Unsp spec) [#/Vol]Ordered By: Riky Li on 11-10-2024 Lymphocytes (Bld) [#/Vol] 1.91 10*3/uL 0.83-4.51 [facility] Lymphocytes/100 WBC Auto (Un sp spec)Ordered By: Riky Li on 11-10-2024 Lymphocytes/100 WBC (Bld) 24.1 % 19-41 [facility] MCV (mean corpuscular volume ) determinationOrdered By: Riky Li on 11-10-2024 MCV (RBC) [Entitic vol] 96.5 fL High 80-94 [facility] Mean corpuscular hemoglobin (MCH) determinationOrdered By: Riky Li on 11-10-2024 MCH (RBC) [Entitic mass] 32.2 pg High 27.0-32.0 [facility] Mean corpuscular hemoglobin concentration (MCHC) determinationOrdered By: Riky Li on 11-10-2024 MCHC (RBC) [Mass/Vol] 33.3 g/dL 32-36 [facility] Mean platelet volume determi nationOrdered By: Riky Li on 11-10-2024 Platelet mean volume (Bld) [Entitic vol] 9.4 fL 6.2-12.0 [facility] Monocyte percentageOrdered B y: Riky Li on 11-10-2024 Monocytes/100 WBC (Bld) 10.6 % High 0-10 [facility] Neutrophil percentageOrdered By: Riky Li on 11-10-2024 Neutrophils/100 WBC (Bld) 61.9 % 47-70 [facility] Nucleated red blood cell per centageOrdered By: Riky Li on 11-10-2024 Nucleated RBC/100 WBC (Bld) [Ratio] 0 % 0-5 [facility] Phosphoruson 11-10-2024 Phosphate [Mass/Vol] 3.3 mg/dL Normal 2.7-4.5 [facility] Comment on above: Performed By: #### L 501.2300, L500.2500 #### [facility] [address], [address] Platelet countOrdered By: Moses Li on 11-10-2024 Platelets (Bld) [#/Vol] 181 10*3/uL 150-450 [facility] Potassium (Unsp spec) [Mass/ Vol]Ordered By: Riky Li on 11-10-2024 Potassium [Moles/Vol] 4.3 mmol/L 3.3-5.1 [facility] RBC Auto (Bld) [#/Vol]Ordere d By: Riky Li on 11-10-2024 RBC (Bld) [#/Vol] 4.01 10*6/uL Low 4.6-6.2 [facility] Serum creatinine measurement (mass/volume)Ordered By: Riky Li on 11-10-2024 Creatinine [Mass/Vol] 1.19 mg/dL 0.70-1.20 [facility] Serum glucose measurement (m ass/volume)Ordered By: Riky Li on 11-10-2024 Glucose [Mass/Vol] 101 mg/dL High 70-99 [facility] Serum or plasma calcium saige urement (mass/volume)Ordered By: Riky Li on 11-10-2024 Calcium [Mass/Vol] 9.1 mg/dL 7.6-11.0 [facility] Serum or plasma urea nitroge n measurement (mass/volume)Ordered By: Riky Li on 11-10-2024 Urea nitrogen [Mass/Vol] 23 mg/dL High 4-19 [facility] Serum phosphorus measurement Ordered By: Evelyn Mccall on 11-10-2024 Phosphorus Level 3.3 mg/dL 2.7-4.5 [facility] Sodium levelOrdered By: Mike Li on 11-10-2024 Sodium [Moles/Vol] 137 mmol/L 133-145 [facility] White blood cell (WBC) count Ordered By: Riky Li on 11-10-2024 WBC (Bld) [#/Vol] 7.9 10*3/uL 4.4-11.0 [facility] Bilirubin, totalOrdered By: Evelyn Mccall on 11-09-2024 Bilirubin [Mass/Vol] 0.71 mg/dL 0.00-1.30 [facility] CBC W/Diff, Automatedon 10-17 Absolute Lymph 1.82 X10 3/uL Normal 0.83-4.51 [facility] Comment on above: Performed By: #### L 501.2300, L500.4050, L100.0100, L500.4100 #### [facility] [address] [place], [address] Absolute Neut 5.8 X10 3/uL Normal 2.0-7.7 [facility] Comment on above: Performed By: #### L 501.2300, L500.4050, L100.0100, L500.4100 #### [facility] [address] [place], [address] Basophils/100 WBC (Bld) 0.6 % Normal 0-1 [facility] Comment on above: Performed By: #### L 501.2300, L500.4050, L100.0100, L500.4100 #### [facility] [address] [place], [address] Eosinophils/100 WBC (Bld) 2.2 % Normal 0-5 [facility] Comment on above: Performed By: #### L 501.2300, L500.4050, L100.0100, L500.4100 #### [facility] [address] [place], [address] Erythrocyte distribution width (RBC) [Ratio] 13.9 % Normal 11.6-14.6 [facility] Comment on above: Performed By: #### L 501.2300, L500.4050, L100.0100, L500.4100 #### [facility] [address] [place], [address] Hematocrit (Bld) [Volume fraction] 39.5 % Low 40-54 [facility] Comment on above: Performed By: #### L 501.2300, L500.4050, L100.0100, L500.4100 #### [facility] [address] [place], [address] Hemoglobin (Bld) [Mass/Vol] 13.2 g/dL Normal 13.0-16.5 [facility] Comment on above: Performed By: #### L 501.2300, L500.4050, L100.0100, L500.4100 #### [facility] [address] [place], [address] IG% 0.300 Normal 0.0-0.9 [facility] Comment on above: Result Comment: IG% - Immature Granulocytes (promyelocytes, myelocytes and metamyelocytes) > 1% indicates that a LEFT SHIFT is Present. Performed By: #### L 501.2300, L500.4050, L100.0100, L500.4100 #### [facility] [address] [place], [address] Lymphocytes/100 WBC (Bld) 20.8 % Normal 19-41 [facility] Comment on above: Performed By: #### L 501.2300, L500.4050, L100.0100, L500.4100 #### [facility] [address] [place], [address] MCH (RBC) [Entitic mass] 32.3 pg High 27.0-32.0 [facility] Comment on above: Performed By: #### L 501.2300, L500.4050, L100.0100, L500.4100 #### [facility] [address] [place], [address] MCHC (RBC) [Mass/Vol] 33.4 g/dL Normal 32-36 [facility] Comment on above: Performed By: #### L 501.2300, L500.4050, L100.0100, L500.4100 #### [facility] [address] [place], [address] MCV (RBC) [Entitic vol] 96.6 fL High 80-94 [facility] Comment on above: Performed By: #### L 501.2300, L500.4050, L100.0100, L500.4100 #### [facility] [address] [place], [address] Monocytes/100 WBC (Bld) 9.7 % Normal 0-10 [facility] Comment on above: Performed By: #### L 501.2300, L500.4050, L100.0100, L500.4100 #### [facility] [address] [place], [address] Neutrophils/100 WBC (Bld) 66.4 % Normal 47-70 [facility] Comment on above: Performed By: #### L 501.2300, L500.4050, L100.0100, L500.4100 #### [facility] [address] [place], [address] Nucleated RBC (Bld) [#/Vol] 0 10*3/uL Normal 0-5 [facility] Comment on above: Performed By: #### L 501.2300, L500.4050, L100.0100, L500.4100 #### [facility] [address] [place], [address] Platelet mean volume (Bld) [Entitic vol] 9.8 fL Normal 6.2-12.0 [facility] Comment on above: Performed By: #### L 501.2300, L500.4050, L100.0100, L500.4100 #### [facility] [address] [place], [address] Platelets (Bld) [#/Vol] 196 10*3/uL Normal 150-450 [facility] Comment on above: Performed By: #### L 501.2300, L500.4050, L100.0100, L500.4100 #### [facility] [address] [place], [address] RBC (Bld) [#/Vol] 4.09 10*6/uL Low 4.6-6.2 [facility] Comment on above: Performed By: #### L 501.2300, L500.4050, L100.0100, L500.4100 #### [facility] [address] [place], [address] RDW SD 49.5 fl High 35.1-43.9 [facility] Comment on above: Performed By: #### L 501.2300, L500.4050, L100.0100, L500.4100 #### [facility] [address] [place], [address] WBC (Bld) [#/Vol] 8.8 10*3/uL Normal 4.4-11.0 [facility] Comment on above: Performed By: #### L 501.2300, L500.4050, L100.0100, L500.4100 #### [facility] [address] [place], [address] Calculated very low density lipoprotein (VLDL) cholesterol measurementOrdered By: Evelyn Mccall on 11-09-2024 VLDL Cholesterol 31 mg/dL 5-40 [facility] Comprehensive Metabolic Prof ilon 11-09-2024 Albumin [Mass/Vol] 3.2 g/dL Low 3.4-4.8 [facility] Comment on above: Performed By: #### L 501.2300, L500.4050, L100.0100, L500.4100 #### [facility] [address] [place], [address] Albumin/Globulin [Mass ratio] 1.5 {ratio} Normal 0.9-2.4 [facility] Comment on above: Performed By: #### L 501.2300, L500.4050, L100.0100, L500.4100 #### [facility] [address] [place], [address] ALK PHOS 60 U/L Normal 40-129 [facility] Comment on above: Performed By: #### L 501.2300, L500.4050, L100.0100, L500.4100 #### [facility] [address] [place], [address] ALT [Catalytic activity/Vol] 22 U/L Normal <=46 [facility] Comment on above: Performed By: #### L 501.2300, L500.4050, L100.0100, L500.4100 #### [facility] [address] [place], [address] AST [Catalytic activity/Vol] 24 U/L Normal <=37 [facility] Comment on above: Performed By: #### L 501.2300, L500.4050, L100.0100, L500.4100 #### [facility] [address] [place], [address] Bilirubin [Mass/Vol] 0.71 mg/dL Normal 0.00-1.30 [facility] Comment on above: Performed By: #### L 501.2300, L500.4050, L100.0100, L500.4100 #### [facility] [address] [place], [address] BUN/CRE 26.9 RATIO High 10-20 [facility] Comment on above: Performed By: #### L 501.2300, L500.4050, L100.0100, L500.4100 #### [facility] [address] [place], [address] Calcium [Mass/Vol] 8.8 mg/dL Normal 7.6-11.0 [facility] Comment on above: Performed By: #### L 501.2300, L500.4050, L100.0100, L500.4100 #### [facility] [address] [place], [address] Chloride [Moles/Vol] 107 mmol/L Normal 98-108 [facility] Comment on above: Performed By: #### L 501.2300, L500.4050, L100.0100, L500.4100 #### [facility] [address] [place], [address] CO2 [Moles/Vol] 23.1 mmol/L Normal 21.0-32.0 [facility] Comment on above: Performed By: #### L 501.2300, L500.4050, L100.0100, L500.4100 #### [facility] [address] [place], [address] Creatinine [Mass/Vol] 1.17 mg/dL Normal 0.70-1.20 [facility] Comment on above: Performed By: #### L 501.2300, L500.4050, L100.0100, L500.4100 #### [facility] [address] [place], [place], [address] ECRCL 49.39 ml/min Low 50-250 [facility] Comment on above: Performed By: #### L 501.2300, L500.4050, L100.0100, L500.4100 #### [facility] [address] [place], [address] GAP 10 Normal 5-15 [facility] Comment on above: Performed By: #### L 501.2300, L500.4050, L100.0100, L500.4100 #### [facility] [address] [place], [address] GFR/1.73 sq M.predicted among non-blacks MDRD (S/P/Bld) [Vol rate/Area] 60 mL/min/{1.73_m2} Normal >60 [facility] Comment on above: Result Comment: mL/m in/1.73m2 CKD-EPI Creatinine Equation (2020) Performed By: #### L 501.2300, L500.4050, L100.0100, L500.4100 #### [facility] [address] [place], [address] Globulin (S) [Mass/Vol] 2.1 g/dL Low 2.2-4.2 [facility] Comment on above: Performed By: #### L 501.2300, L500.4050, L100.0100, L500.4100 #### [facility] [address] [place], [address] Glucose [Mass/Vol] 88 mg/dL Normal 70-99 [facility] Comment on above: Performed By: #### L 501.2300, L500.4050, L100.0100, L500.4100 #### [facility] [address] [place], [address] Potassium [Moles/Vol] 4.1 mmol/L Normal 3.3-5.1 [facility] Comment on above: Performed By: #### L 501.2300, L500.4050, L100.0100, L500.4100 #### [facility] [address] [place], [address] Sodium [Moles/Vol] 140 mmol/L Normal 133-145 [facility] Comment on above: Performed By: #### L 501.2300, L500.4050, L100.0100, L500.4100 #### [facility] [address] [place], [address] T PROT 5.3 g/dL Low 5.9-8.4 [facility] Comment on above: Performed By: #### L 501.2300, L500.4050, L100.0100, L500.4100 #### [facility] [address] [place], [address] Urea nitrogen [Mass/Vol] 32 mg/dL High 4-19 [facility] Comment on above: Performed By: #### L 501.2300, L500.4050, L100.0100, L500.4100 #### [facility] [address] [place], [address] Gram Stainon 11-09-2024 GS Left wrist aspirate Centrifuged Specimen? Culture performed on centrifuged specimen Gram Stain 4+ Red Blood Cells Rare White Blood Cells No organisms seen Normal [facility] Comment on above: Performed By: #### L 501.2300, L500.4050, L100.0100, L500.4100 #### [facility] [address] [place], [address] LDL calc ser/plasOrdered By: Evelyn Mccall on 11-09-2024 LDL Cholesterol, Calculated 43 mg/dL [facility] Comment on above: Txuunoyclx=182-786 m g/dL & Higher Bdcl=310 mg/dL or greater Laboratory - Chemistry and C hemistry - challengeOrdered By: Evelyn Mccall on 11-09-2024 AST [Catalytic activity/Vol] 24 U/L <38 [facility] Lipid Profileon 11-09-2024 CHOL:HDL 3.52 Normal [facility] Comment on above: Performed By: #### L 501.2300, L500.4050, L100.0100, L500.4100 #### [facility] [address] [place] [place], [address] Cholesterol [Mass/Vol] 103 mg/dL Normal <=200 [facility] Comment on above: Result Comment: Chol esterol level, Desirable <200 mg/dL Borderline high cholesterol 200-239 mg/dL High cholesterol >=240 mg/dL Recommendations of the NCEP Adult Treatment Panel for the following risk-cutoff thresholds for the [place] population. Performed By: #### L 501.2300, L500.4050, L100.0100, L500.4100 #### [facility] [address] [place], [address] Cholesterol in HDL [Mass/Vol] 29 mg/dL Low [facility] Comment on above: Result Comment: Maribell onjesus Cholesterol Education Program (NCEP) guidelines: <40 mg/dL: Low HDL-cholesterol (major risk factor for CHD) >= 60 mg/dL: High HDL-cholesterol (negative risk factor for CHD) HDL-cholesterol is affected by a number of factors, e.g. smoking, exercise, hormones, sex and age. Performed By: #### L 501.2300, L500.4050, L100.0100, L500.4100 #### [facility] [address] [place], [address] Cholesterol in LDL [Mass/Vol] 43 mg/dL Normal [facility] Comment on above: Result Comment: Bord suyqgn=414-582 mg/dL Higher Olck=430 mg/dL or greater Performed By: #### L 501.2300, L500.4050, L100.0100, L500.4100 #### [facility] [address] [place], [address] Cholesterol in VLDL [Mass/Vol] 31 mg/dL Normal 5-40 [facility] Comment on above: Performed By: #### L 501.2300, L500.4050, L100.0100, L500.4100 #### [facility] [address] [place], [address] Triglyceride [Mass/Vol] 155 mg/dL Normal [facility] Comment on above: Result Comment: The drugs N-Acetylcysteine and Metamizole may falsely depress this assay. Normal range: <150 mg/dL Borderline High: 150-199 mg/dL High: 200-499 mg/dL Very High: >500 mg/dL Performed By: #### L 501.2300, L500.4050, L100.0100, L500.4100 #### [facility] [address] [place], [address] Phosphoruson 11-09-2024 Phosphate [Mass/Vol] 3.6 mg/dL Normal 2.7-4.5 [facility] Comment on above: Performed By: #### L 501.2300, L500.4050, L100.0100, L500.4100 #### [facility] [place], [address] Screening total cholesterol/ high density lipoprotein (HDL) cholesterol ratioOrdered By: Evelyn Mccall on 11-09-2024 Cholesterol.total/Chol esterol in HDL [Mass ratio] 3.52 {ratio} [facility] Serum globulin measurementOr dered By: Evelyn Mccall on 11-09-2024 Globulin (S) [Mass/Vol] 2.1 g/dL Low 2.2-4.2 [facility] Serum or plasma alanine hopkins otransferase (ALT) measurementOrdered By: Evelyn Mccall on 11-09-2024 ALT [Catalytic activity/Vol] 22 U/L <47 [facility] Serum or plasma albumin saige urement (mass/volume)Ordered By: Evelyn Mccall on 11-09-2024 Albumin [Mass/Vol] 3.2 g/dL Low 3.4-4.8 [facility] Serum or plasma albumin/glob ulin mass ratioOrdered By: Evelyn Mccall on 11-09-2024 Albumin/Globulin [Mass ratio] 1.5 {ratio} 0.9-2.4 [facility] Serum or plasma alkaline jaki sphatase measurementOrdered By: Evelyn Mccall on 11-09-2024 ALP [Catalytic activity/Vol] 60 U/L 40-129 [facility] Serum or plasma cholesterol in HDL measurement (mass/volume)Ordered By: Evelyn Mccall on 11-09-2024 Cholesterol in HDL [Mass/Vol] 29 mg/dL Low >40 [facility] Comment on above: National Cholesterol Education Program (NCEP) guidelines:<40 mg/dL: Low HDL-cholesterol (major risk factor for CHD)>= 60 mg/dL: High HDL-cholesterol (negative risk factor for CHD)HDL-cholesterol is affected by a number of factors, e.g. smoking, exercise, hormones, sex and age. Serum or plasma cholesterol measurement (mass/volume)Ordered By: Evelyn Mccall on 11-09-2024 Cholesterol [Mass/Vol] 103 mg/dL <201 [facility] Comment on above: Cholesterol level, D esirable <200 mg/dLBorderline high cholesterol 200-239 mg/dLHigh cholesterol >=240 mg/dLRecommendations of the NCEP Adult Treatment Panel for the following risk-cutoff thresholds for the [place] population. Total proteinOrdered By: Willem Mccall on 11-09-2024 Protein [Mass/Vol] 5.3 g/dL Low 5.9-8.4 [facility] Triglycerides measurementOrd ered By: Evelyn Mccall on 11-09-2024 Triglyceride [Mass/Vol] 155 mg/dL <199 [facility] Comment on above: The drugs N-Acetylcy steine and Metamizole may falsely depress this assay. Normal range: <150 mg/dLBorderline High: 150-199 mg/dLHigh: 200-499 mg/dLVery High: >500 mg/dL Appearance (Syn fld)Ordered By: Dennis Rocha on 11-08-2024 Synovial Fluid Appearance Opaque CLEAR [facility] Basic Metabolic Profile (BMP )on 11-08-2024 BUN/CRE 29.3 RATIO High 10-20 [facility] Comment on above: Performed By: #### L 500.2500, L501.6710, L501.1400, L100.0100, L101.9900 #### [facility] [address] [place], [address] Calcium [Mass/Vol] 9.5 mg/dL Normal 7.6-11.0 [facility] Comment on above: Performed By: #### L 500.2500, L501.6710, L501.1400, L100.0100, L101.9900 #### [facility] [address] [place], [address] Chloride [Moles/Vol] 108 mmol/L Normal 98-108 [facility] Comment on above: Performed By: #### L 500.2500, L501.6710, L501.1400, L100.0100, L101.9900 #### [facility] [address] [place], [address] CO2 [Moles/Vol] 22.8 mmol/L Normal 21.0-32.0 [facility] Comment on above: Performed By: #### L 500.2500, L501.6710, L501.1400, L100.0100, L101.9900 #### [facility] [address] [place], [address] Creatinine [Mass/Vol] 1.26 mg/dL High 0.70-1.20 [facility] Comment on above: Performed By: #### L 500.2500, L501.6710, L501.1400, L100.0100, L101.9900 #### [facility] [address] [place], [address] ECRCL 45.77 ml/min Low 50-250 [facility] Comment on above: Performed By: #### L 500.2500, L501.6710, L501.1400, L100.0100, L101.9900 #### [facility] [address] [place], [address] GAP 10 Normal 5-15 [facility] Comment on above: Performed By: #### L 500.2500, L501.6710, L501.1400, L100.0100, L101.9900 #### [facility] [address] [place], [address] GFR/1.73 sq M.predicted among non-blacks MDRD (S/P/Bld) [Vol rate/Area] 55 mL/min/{1.73_m2} Low >60 [facility] Comment on above: Result Comment: mL/m in/1.73m2 CKD-EPI Creatinine Equation (2020) Performed By: #### L 500.2500, L501.6710, L501.1400, L100.0100, L101.9900 #### [facility] [address] [place], [address] Glucose [Mass/Vol] 116 mg/dL High 70-99 [facility] Comment on above: Performed By: #### L 500.2500, L501.6710, L501.1400, L100.0100, L101.9900 #### [facility] [address] [place], [address] Potassium [Moles/Vol] 4.6 mmol/L Normal 3.3-5.1 [facility] Comment on above: Performed By: #### L 500.2500, L501.6710, L501.1400, L100.0100, L101.9900 #### [facility] [address] [place], [address] Sodium [Moles/Vol] 141 mmol/L Normal 133-145 [facility] Comment on above: Performed By: #### L 500.2500, L501.6710, L501.1400, L100.0100, L101.9900 #### [facility] [address] [place], [address] Urea nitrogen [Mass/Vol] 37 mg/dL High 4-19 [facility] Comment on above: Performed By: #### L 500.2500, L501.6710, L501.1400, L100.0100, L101.9900 #### [facility] [address] [place], [address] CBC W/Diff, Automatedon 04-2 Absolute Lymph 1.96 X10 3/uL Normal 0.83-4.51 [facility] Comment on above: Performed By: #### L 500.2500, L501.6710, L501.1400, L100.0100, L101.9900 #### [facility] [address] [place], [address] Absolute Neut 6.9 X10 3/uL Normal 2.0-7.7 [facility] Comment on above: Performed By: #### L 500.2500, L501.6710, L501.1400, L100.0100, L101.9900 #### [facility] [address] [place], [address] Basophils/100 WBC (Bld) 0.6 % Normal 0-1 [facility] Comment on above: Performed By: #### L 500.2500, L501.6710, L501.1400, L100.0100, L101.9900 #### [facility] [address] [place], [address] Eosinophils/100 WBC (Bld) 1.8 % Normal 0-5 [facility] Comment on above: Performed By: #### L 500.2500, L501.6710, L501.1400, L100.0100, L101.9900 #### [facility] [address] [place], [address] Erythrocyte distribution width (RBC) [Ratio] 13.9 % Normal 11.6-14.6 [facility] Comment on above: Performed By: #### L 500.2500, L501.6710, L501.1400, L100.0100, L101.9900 #### [facility] [address] [place], [address] Hematocrit (Bld) [Volume fraction] 43.0 % Normal 40-54 [facility] Comment on above: Performed By: #### L 500.2500, L501.6710, L501.1400, L100.0100, L101.9900 #### [facility] [address] [place], [address] Hemoglobin (Bld) [Mass/Vol] 14.3 g/dL Normal 13.0-16.5 [facility] Comment on above: Performed By: #### L 500.2500, L501.6710, L501.1400, L100.0100, L101.9900 #### [facility] [address] [place], [address] IG% 0.400 Normal 0.0-0.9 [facility] Comment on above: Result Comment: IG% - Immature Granulocytes (promyelocytes, myelocytes and metamyelocytes) > 1% indicates that a LEFT SHIFT is Present. Performed By: #### L 500.2500, L501.6710, L501.1400, L100.0100, L101.9900 #### [facility] [address] [place], [address] Lymphocytes/100 WBC (Bld) 19.5 % Normal 19-41 [facility] Comment on above: Performed By: #### L 500.2500, L501.6710, L501.1400, L100.0100, L101.9900 #### [facility] [address] [place], [address] MCH (RBC) [Entitic mass] 31.7 pg Normal 27.0-32.0 [facility] Comment on above: Performed By: #### L 500.2500, L501.6710, L501.1400, L100.0100, L101.9900 #### [facility] [address] [place], [address] MCHC (RBC) [Mass/Vol] 33.3 g/dL Normal 32-36 [facility] Comment on above: Performed By: #### L 500.2500, L501.6710, L501.1400, L100.0100, L101.9900 #### [facility] [address] [place], [address] MCV (RBC) [Entitic vol] 95.3 fL High 80-94 [facility] Comment on above: Performed By: #### L 500.2500, L501.6710, L501.1400, L100.0100, L101.9900 #### [facility] [address] [place], [address] Monocytes/100 WBC (Bld) 9.4 % Normal 0-10 [facility] Comment on above: Performed By: #### L 500.2500, L501.6710, L501.1400, L100.0100, L101.9900 #### [facility] [address] [place], [address] Neutrophils/100 WBC (Bld) 68.3 % Normal 47-70 [facility] Comment on above: Performed By: #### L 500.2500, L501.6710, L501.1400, L100.0100, L101.9900 #### [facility] [address] [place], [address] Nucleated RBC (Bld) [#/Vol] 0 10*3/uL Normal 0-5 [facility] Comment on above: Performed By: #### L 500.2500, L501.6710, L501.1400, L100.0100, L101.9900 #### [facility] [address] [place], [address] Platelet mean volume (Bld) [Entitic vol] 9.8 fL Normal 6.2-12.0 [facility] Comment on above: Performed By: #### L 500.2500, L501.6710, L501.1400, L100.0100, L101.9900 #### [facility] [address] [place], [address] Platelets (Bld) [#/Vol] 233 10*3/uL Normal 150-450 [facility] Comment on above: Performed By: #### L 500.2500, L501.6710, L501.1400, L100.0100, L101.9900 #### [facility] [address] [place], [address] RBC (Bld) [#/Vol] 4.51 10*6/uL Low 4.6-6.2 [facility] Comment on above: Performed By: #### L 500.2500, L501.6710, L501.1400, L100.0100, L101.9900 #### [facility] [address] [place], [address] RDW SD 49.1 fl High 35.1-43.9 [facility] Comment on above: Performed By: #### L 500.2500, L501.6710, L501.1400, L100.0100, L101.9900 #### [facility] [address] [place], [address] WBC (Bld) [#/Vol] 10.0 10*3/uL Normal 4.4-11.0 [facility] Comment on above: Performed By: #### L 500.2500, L501.6710, L501.1400, L100.0100, L101.9900 #### [facility] [address] [place], [address] CNOVon 11-08-2024 [facility] Office Visit ([facility] ) PACO WHITNEY ([id number]) 1935 M Date Time Provider Department 11/08/24 5:30 PM VASYL WELSH [facility] During your visit today, we recorded the following information about you: Temperature Pulse Respiration Blood pressure 99.5 degrees 79/minute 22/minute 118/68 Weight 90 kg Vasyl Welsh MD 11/08/2024 6:31 PM Signed [facility] Subjective Paco Whitney is a 89 year old male. Patient presents with: Musculoskeletal Problem: L hand pain, swelling redness, warmth, itchy, x 1 day Patient with history of severe degenerative joint disease but without history of gout presents with significant increase in redness, pain, and swelling in his left wrist. He recalls no injury. It is painful to move the joint. He feels warm. He was treated for URI with asthma exacerbation with prednisone 5 days ago. Musculoskeletal Problem Review of Systems Objective BP 118/68 Pulse 79 Temp 37.5 ?C (99.5 ?F) Resp 22 Wt 90 kg (198 lb 6.6 oz) SpO2 95% BMI 28.47 kg/m? Physical Exam Constitutional: Appearance: He is not ill-appearing. Musculoskeletal: Hands: Comments: Chronic degenerative joint changes of the hands and wrists. Significant edema and erythema of the medial left wrist. Pain with range of motion of the wrist. No pain with range of motion of the thumb or fingers. Swelling is tender to palpation. Neurological: Mental Status: He is alert. Latest Ref Rng 07/24/2024 eGFR >=60 mL/min/1.73m? 73 {ASSESSMENT/PLAN: 1. Swelling of left wrist - ICD9: 719.03, ICD10: M25.432 Differential includes occult injury, reactive tenosynovitis, occult insect envenomation, new onset gout, or septic joint. Patient will proceed to the emergency room where stat lab is available. He will take himself to the [facility]. Vasyl Welsh MD History and Record Review External record(s) reviewed: prior outpatient record. Findings from review of outpatient records: No history of gout or uric acid level Differential Diagnoses - Occult injury - Septic joint is more likely for the following reason(s): Borderline temperature elevation; immune suppression with current steroid - Gout is less likely for the following reason(s): No prior history of hyperuricemia or gout. Normal renal function. Additional Tests or Interventions The following testing was considered but ultimately not selected after discussion with patient/family: Wrist x-ray not performed since he will be seeking further care outside the [facility] hospital system. Disposition The patient was other (comment) (Self transport to ER). Procedures Allergies As of Date: 11/08/2024 Noted Allergy Reaction DEMEROL (MEPERIDINE (PF)) 11/18/2016 1 - Mental Status Change Comments: Gave too high of dose BAYCOL 02/01/2023 14 - Other: See Comments Comments: Rhabdoymyolysis CONTRAST DYE (IODINE) 06/28/2019 5 - Intolerance Comments: pt needs to be oral hydrated after injection,..patient STATES HE IS NOT ALLERGIC TO IV DYE.. LOPID (GEMFIBROZIL) 07/14/2006 14 - Other: See Comments Comments: Myalgia. Date Reviewed: 11/08/2024 Reviewed by: Gabrielle Richards LPN - Fully Assessed Reason for Visit: Musculoskeletal Problem [69] Cmt: L hand pain, swelling redness, warmth, itchy, x 1 day Primary Visit Diagnosis:Swelling of left wrist [M25.432] Prescriptions as of 11/08/2024 - albuterol (PROVENTIL) 2.5 mg /3 mL (0.083 %) nebulizer solution Use 3 mL via nebulizer every 4 hours as needed for wheezing/shortness of breath. - predniSONE (DELTASONE) 20 mg tablet Take 2 tablets by mouth once daily for 5 days. - benzonatate (TESSALON PERLE) 100 mg capsule Take 2 capsules by mouth three times a day as needed. - guaiFENesin (MUCINEX) 600 mg 12 hr tablet Take 2 tablets by mouth two times a day. - SYMBICORT 160-4.5 mcg/actuation inhaler Inhale 2 puffs as instructed two times a day. - pantoprazole DR (PROTONIX) 40 mg tablet Take 1 tablet by mouth daily before breakfast. Take on empty stomach, 1/2 hr before meal. - tamsulosin (FLOMAX) 0.4 mg TAKE ONE CAPSULE BY MOUTH ONCE DAILY AT BEDTIME - albuterol HFA (VENTOLIN HFA) 90 mcg/actuation inhaler Inhale 2 Puffs as instructed every 4 hours as needed for wheezing/shortness of breath. - gabapentin (NEURONTIN) 600 mg tablet Take 1 tablet by mouth three times a day for 180 days. - meclizine (ANTIVERT) 25 mg tab Take 1 tablet by mouth every 6 hours as needed. FOR DIZZINESS - Fenofibrate (LOFIBRA) 160 mg tablet Take 1 tablet by mouth once daily. - ramipril (ALTACE) 10 mg capsule Take 1 capsule by mouth once daily. - xstxztrd-lfvsquoym-fdmoaozxk isone (CORTISPORIN) 3.5-10,000-1 mg/mL-unit/mL-% otic suspension Use 4 Drops in the ears four times daily. x 1 week - clotrimazole-betamethasone (LOTRISONE) cream Apply 1 application to affected area two times (more content not included)... Normal [facility] CRPon 11-08-2024 C-REACTIVE PROT 5.25 mg/L High 0.0-3.0 [facility] Comment on above: Performed By: #### L 501.2300, L500.2500 #### [facility] [address] [place], [address] CRP [Mass/Vol]Ordered By: Tiago Hartley on 11-08-2024 C-Reactive Protein Extended Range 5.25 mg/L High 0.0-3.0 [facility] Cells Counted Total (Syn fld ) [#]Ordered By: Dennis Rocha on 11-08-2024 Synovial Fluid Total Cells Counted 4.0010 10^3/uL High 0.000-0.00 0 [facility] Comment on above: This is the Total Nu mber of Nucleated Cell Types in the Body Fluid. Color (Syn fld)Ordered By: Josefina Rocha on 11-08-2024 Synovial Fluid Color RED Pale Yellow [facility] Consultation - Surgicalon Consultation - Surgical [facility] Medical Records Department [address] [place] [address] Consultation - Surgical 11/08/24 1853 MR#: [id number] Acct: [id number] Name: PACO WHITNEY Rep #: [id number] : 1935 89 From: Dennis Rocha MD PCP: Dr. Clarice Murillo MD Status:DIS IN Location: [place] [id number] Dennis Rocha MD on 12/13/24 at 0846 Addendum CPT 82691 (arthrocentesis, aspiration) 12/13/24 0846 Cosigner Signature (if applicable): cc: Dr. Clarice Murillo MD * Signed Assessment Plan Assessment/Plan (1) Swelling of joint of left wrist: PLAN: Concern for septic arthritis versus an inflammatory arthritis v. trauma Given concern for septic joint by ED and history of inflammatory arthritis (in the setting of no reported trauma), I recommended joint tap. I talked the patient about the risks, benefits, and alternatives to aspiration of the left wrist joint. I talked to him about how this could be both diagnostic and therapeutic. He elected to proceed. Hemarthrosis identified (See photo) which was sent to the lab for cell studies and cultures. I am going to recommend admission to medicine for IV antibiotics empirically. He was in agreement. I am suspicious for trauma rather than an infection (patient may not have realized that he bumped his wrist?). Plan for empiric IV antibiotics and admission to medicine Plan for rest and elevation of the left upper extremity (blue arm elevator) I wrapped the hand/wrist with a gentle FEDERICO. Plastic surgery will follow F/u hand xray PLAN: Plan Procedure details (left wrist aspiration): Patient signed consent A timeout was performed with the nursing staff The left wrist was prepped and draped in sterile fashion, then anesthetized with 1% lidocaine. A 21-gauge needle was used to aspirate the left wrist joint through the 3/4 interval just distal to Elvis's tubercle with the patient in flexion and ulnar deviation. 2 cc of bloody fluid was removed. Patient tolerated the procedure well and a Band-Aid was applied. Blood fluid sent for cell and crystal studies, as well as cultures. HPI Consult Data Date of Consult: 11/08/24 HPI Narrative HPI Narrative: PACO WHITNEY is a 89 M with past medical history of hypertension COPD, , TIAs, and peripheral neuropathy who presents today for left wrist pain of 6 hours duration. He denies any trauma. He presented to the urgent care earlier today who referred him immediately to the emergency department. Today in the emergency department he reports left wrist pain that is sharp and improved with rest and elevation. He has a history of gout in the 1st MTP joint. He has stable vital signs and is afebrile. His white blood cell count is wnl (10). 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 [employer] Medical History PAD (peripheral artery disease) Renal cyst Vertebrobasilar artery syndrome Diverticulosis Kidney stone Lung nodule AAA (abdominal aortic aneurysm) Bilateral carotid artery stenosis Asthma Arthritis Diverticular hemorrhage Lower GI bleed BPH (benign prostatic hyperplasia) GERD (gastroesophageal reflux disease) Peripheral neuropathy History of gastrointestinal bleeding Hx-TIA (transient ischemic attack) Chronic obstructive lung disease HTN (hypertension), benign Home Medications ???Medication ???Instructions ???Recorded ???Last Taken ???Type albuterol sulfate 90 mcg/actuation 2 puff inhalation Q4H PRN Sob / Or 07/05/14 04/08/19 23:00 History aerosol inhaler Wheezing 2 puffs ramipril 10 mg capsule 10 mg PO DAILY BP 07/05/14 5 History pantoprazole 40 mg tablet,delayed 40 mg PO DAILY gerd 08/21/1410/17 History release cholecalciferol (vitamin D3) 25 3,000 unit PO BID Supplement 11/2311/08/24 History mcg (1,000 unit) tablet tamsulosin 0.4 mg capsule 0.4 mg PO QHS Prostate 11/23/14 History budesonide-formoterol HFA 160 2 puff inhalation BID Breathing 04/08/19 08:00 History mcg-4.5 mcg/actuation aerosol 1 puff inhaler fenofibrate 160 mg tablet 160 mg PO DAILY cholesterol 11/08/24 History albuterol sulfate 2.5 mg/3 mL 2.5 mg continuous nebulization Q4H 11/08/24 Unknown History (0.083 %) solution for nebulization PRN wheezing benzonatate 100 mg capsule 200 mg PO TID PRN cough 11/08/24 0 11/07/24 History gabapentin 600 mg tablet 600 mg PO TID 11/08/24 11/08/24 Hi story latanoprost 0.005 % eye drops 1 drp ophthalmic (eye) DAILY 11/0811/08/24 History loperamide 2 mg capsule 2 mg PO Q2H PRN Diarrhea 11/08/24 Unknown History Allergy/AdvReac Type Severity Reaction Status Date / Time cerivastatin sodium (From Allergy Severe Other Verified 11/08/24 18:02 Baycol) gemfibrozil (From Lopid (more content not included)... Normal [facility] Crystals LM Nom (Body fld)Or dered By: Dennis Rocha on 11-08-2024 Body Fluid Crystals NO CRYSTALS SEEN [facility] Comment on above: CRYSTAL RESULT IS PRELIMINARY. SEE PATH REVIEW FOR FINAL REPORT. Emergency Department Summary on 11-08-2024 Emergency Department Summary [facility] Medical Records Department [address] [place] [address] Emergency Department Summary 11/08/24 MR#: [id number] Acct: [id number] Name: PACO WHITNEY Rep #: [id number] : 1935 89 From: Eduardo Hartley DO PCP: Dr. Clarice Murillo MD Status:ADM IN Location: [place] [address] HPI History of Present Illness Chief Complaint: Upper Extremity Injury Detail of Chief Complaint: Pain and swelling and redness to left wrist Informant: patient Narrative Narrative: Patient presents the emergency department with pain swelling and redness to his wrist that started about 6 hours ago. He denies trauma. Patient went to urgent care and was referred to the emergency department. He was told he had a low-grade fever there to 99.5. No history of gout. Denies chills or sweats PFSH PFSH Medical History PAD (peripheral artery disease) Renal cyst Vertebrobasilar artery syndrome Diverticulosis Kidney stone Lung nodule AAA (abdominal aortic aneurysm) Bilateral carotid artery stenosis Asthma Arthritis Diverticular hemorrhage Lower GI bleed BPH (benign prostatic hyperplasia) GERD (gastroesophageal reflux disease) Peripheral neuropathy History of gastrointestinal bleeding Hx-TIA (transient ischemic attack) Chronic obstructive lung disease HTN (hypertension), benign Home Medications ???Medication ???Instructions ???Recorded ???Last Taken ???Type albuterol sulfate 90 mcg/actuation 2 puff inhalation Q4H PRN Sob / Or 07/05/14 04/08/19 23:00 History aerosol inhaler Wheezing 2 puffs ramipril 10 mg capsule 10 mg PO DAILY BP 07/05/14 5 History pantoprazole 40 mg tablet,delayed 40 mg PO DAILY gerd 08/21/1410/17 History release cholecalciferol (vitamin D3) 25 3,000 unit PO BID Supplement 11/2311/08/24 History mcg (1,000 unit) tablet tamsulosin 0.4 mg capsule 0.4 mg PO QHS Prostate 11/23/14 History budesonide-formoterol HFA 160 2 puff inhalation BID Breathing 04/08/19 08:00 History mcg-4.5 mcg/actuation aerosol 1 puff inhaler fenofibrate 160 mg tablet 160 mg PO DAILY cholesterol 11/08/24 History albuterol sulfate 2.5 mg/3 mL 2.5 mg continuous nebulization Q4H 11/08/24 Unknown History (0.083 %) solution for nebulization PRN wheezing benzonatate 100 mg capsule 200 mg PO TID PRN cough 11/08/24 0 11/07/24 History gabapentin 600 mg tablet 600 mg PO TID 11/08/24 11/08/24 Hi story latanoprost 0.005 % eye drops 1 drp ophthalmic (eye) DAILY 11/0811/08/24 History loperamide 2 mg capsule 2 mg PO Q2H PRN Diarrhea 11/08/24 Unknown History Allergy/AdvReac Type Severity Reaction Status Date / Time cerivastatin sodium (From Allergy Severe Other Verified 11/08/24 18:02 Baycol) gemfibrozil (From Lopid) AdvReac Other Verified 11/08/24 18:02 meperidine (From Demerol) AdvReac Other Verified 11/08/24 18:02 Surgical History Total knee replacement status History of colonoscopy ( 03/2019) History of esophagogastroduodenoscopy (EGD) ( 03/2019) History of back surgery History of detached retina repair Status post vasectomy History of cholecystectomy History of left knee replacement History of back surgery Social History Smoking Status: Never smoker ROS ROS ED Review of Systems ROS Unobtainable: other Constitutional Constitutional ED: Reports lethargy; Denies chills, fever(s), sweats or weight loss Eyes Eyes: Denies blurry vision, change in vision or diplopia ENT ENT ED: Denies rhinorrhea or sore throat Cardiovascular Cardiovascular: Denies chest pain, orthopnea or racing heartbeat Respiratory/Chest Respiratory/Chest: Denies cough, dyspnea, dyspnea on exertion, orthopnea or sputum Gastrointestinal Gastrointestinal: Denies abdominal pain, diarrhea, nausea or vomiting Genitourinary Genitourinary ED: Denies dysuria, hematuria or urinary frequency Musculoskeletal Musculoskeletal: Reports other Details: Left wrist pain and swelling ; Denies arthralgias, back pain, myalgias or neck pain Integumentary Denies abscess, Abrasions or rash Neurologic Neurologic: Denies headache(s) or weakness Psychiatric Psychiatric: Denies anxiety, depression or suicidal thoughts Endocrine Endocrinology: Denies polydipsia, polyphagia or polyuria Hematologic/Lymphatic Hematologic/Lymphatic: Denies easy bleeding, easy bruising or lymphadenopathy Allergic/Immunologic Allergic/Immunologic ED: Denies mouth swelling, tongue swelling or urticaria EXAM Physical Exam Const Vital Signs: 11/08/24 17:59 Temperature 99.5 F H Temperature Source Oral Pulse Rate 86 Respiratory R (more content not included)... Normal [facility] Erythrocyte Sed Rateon 11-08 SED RATE < 1 Normal 0-20 [facility] Comment on above: Performed By: #### L 500.2500, L501.6710, L501.1400, L100.0100, L101.9900 #### [facility] Laboratory [address], [address] Erythrocyte sedimentation ra teOrdered By: Eduardo Hartley on 11-08-2024 ESR (Bld) [Velocity] mm/h 0-20 [facility] Gram stainOrdered By: Dennis Rocha on 11-08-2024 Microscopic observation Gram stain Nom (Unsp spec) [facility] H AND P Exam - Hospital[place] 11-08-2024 H&P Exam - Hospitalist [facility] Medical Records Department [address] [place] [address] H P Exam - Hospitalist 11/08/242000 MR#: [id number] Acct: [id number] Name: PACO WHITNEY Rep #: [id number] : 1935 89 From: Evelyn Doss DO PCP: Dr. Clarice Murillo MD Status:ADM IN Location: [id number] HPI - General General Date of Admission: 11/08/24 Date of Service: 11/08/24 Chief Complaint: Left Wrist Redness, Swelling, Pain and Fever. HPI Narrative PACO WHITNEY, is a 89 M with a past medical history of essential hypertension; on ramipril, hypertriglyceridemia; on fenofibrate, overweight; with BMI of 29.2 this admission, history of asthma/COPD; on budesonide-formoterol twice daily, history of TIA; with vertebrobasilar artery syndrome, history of bilateral carotid stenosis, PAD, history of AAA, peripheral neuropathy; on gabapentin 3 times daily, glaucoma; on latanoprost eyedrops, history of detached retina; s/p repair, BPH; on tamsulosin, history of vasectomy, history of renal cyst, history of renal calculi, history of cholecystectomy, history of lower GI bleed due to diverticular hemorrhage; s/p panendoscopy (2019), GERD; on pantoprazole, OA; s/p Left TKR along with history of back surgery and history of gout; affecting his first MTP joint who presents to [facility] ER complaining of Left wrist redness, swelling, pain and fever. Mr. Whitney reports his symptoms began approximately 6 hours prior to admission with the abrupt-onset of redness and swelling around his Left wrist. He denies recent trauma or similar previous episodes. He initially went to urgent care and was noted to have a low-grade fever of 99.5 ???F and was then instructed to come to the ER for further evaluation and treatment. He admits to lethargy and worsening Left wrist pain that is sharp, moderate and made worse with movement. He denies associated chills, sweats, weight loss, changes in vision, runny nose, sore throat, ear pain, chest pain, heart racing, palpitations, shortness of breath, cough, wheezing, abdominal pain, nausea, vomiting, diarrhea, dysuria, hematuria, headache or rash. In the ER he was diagnosed with Left wrist Cellulitis and was also suspected to have septic arthritis of the Left wrist with the ER physician then contacting Dr. Rocha of the surgical service who performed arthrocentesis of the Left wrist joint with the patient noted to have hemarthrosis with 2 cc of bloody fluid removed with cultures, crystal studies and other fluid analysis pending at this time with an elevated CRP of 5.25 mg/L and a normal serum uric acid of 4.5 mg/dL. He was also noted to have laboratory evidence of Dehydration evidenced by BUN/creatinine ratio of 29.3 present on admission. He was then empirically treated with IV piperacillin-tazobactam and then transferred to the general medical floor for ongoing care for stay that is expected to extend beyond 2 midnights. [facility] Medical History PAD (peripheral artery disease) Renal cyst Vertebrobasilar artery syndrome Diverticulosis Kidney stone Lung nodule AAA (abdominal aortic aneurysm) Bilateral carotid artery stenosis Asthma Arthritis Diverticular hemorrhage Lower GI bleed BPH (benign prostatic hyperplasia) GERD (gastroesophageal reflux disease) Peripheral neuropathy History of gastrointestinal bleeding Hx-TIA (transient ischemic attack) Chronic obstructive lung disease HTN (hypertension), benign Home Medications ???Medication ???Instructions ???Recorded ???Last Taken ???Type albuterol sulfate 90 mcg/actuation 2 puff inhalation Q4H PRN Sob / Or 07/05/14 04/08/19 23:00 History aerosol inhaler Wheezing 2 puffs ramipril 10 mg capsule 10 mg PO DAILY BP 07/05/14 5 History pantoprazole 40 mg tablet,delayed 40 mg PO DAILY gerd 08/21/1410/17 History release cholecalciferol (vitamin D3) 25 3,000 unit PO BID Supplement 11/2311/08/24 History mcg (1,000 unit) tablet tamsulosin 0.4 mg capsule 0.4 mg PO QHS Prostate 11/23/14 History budesonide-formoterol HFA 160 2 puff inhalation BID Breathing 04/08/19 08:00 History mcg-4.5 mcg/actuation aerosol 1 puff inhaler fenofibrate 160 mg tablet 160 mg PO DAILY cholesterol 11/08/24 History albuterol sulfate 2.5 mg/3 mL 2.5 mg continuous nebulization Q4H 11/08/24 Unknown History (0.083 %) solution for nebulization PRN wheezing benzonatate 100 mg capsule 200 mg PO TID PRN cough 11/08/24 0 11/07/24 History gabapentin 600 mg tablet 600 mg PO TID 11/08/24 11/08/24 Hi story latanoprost 0.005 % eye drops 1 drp ophthalmic (eye) DAILY 11/0811/08/24 History loperamide 2 mg capsule 2 mg PO Q2H PRN Diarrhea 11/08/24 Unknown History Allergy/AdvReac Type Severity Reaction Status (more content not included)... Normal [facility] Hand Min 3 Viewson Hand Min 3 Views [facility] Imaging Services [address] [place] [address] Hand Min 3 Views MR#: [id number] Acct: [id number] Name: PACO WHITNEY Rep #: [id number] : 1935 M 89 From: Dennis Lechuga PCP: Dr. Clarice Murillo MD Status: REG ER Study: Hand Min 3 Views Date of Exam: 11/08/24 Exam# [id number] Ordering Dr: Dennis Rocha MD PROCEDURE: HAND MIN 3 VIEWS 11/08/2024 REASON FOR EXAM: WRIST PAIN (POSSIBLE SEPTIC ARTHRITIS) TECHNIQUE: Three views of the left hand COMPARISON: None FINDINGS: See impression RAD/Hand Min 3 Views IMPRESSION: Negative for acute displaced fracture or dislocation. Severe osteopenia. 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 Marked diffuse soft tissue swelling about the wrist. Reading Location: [facility] CC: Dr. Clarice Murillo MD; Dr. Dennis Rocha MD Reefer Engineer: Signed Normal [facility] Lymphocytes/100 WBC (Bld)Ord ered By: Dennis Rocha on 11-08-2024 Synovial Fluid Lymphocytes 40 % [facility] Magnesiumon 11-08-2024 Magnesium [Mass/Vol] 1.6 mg/dL Normal 1.5-2.2 [facility] Comment on above: Performed By: #### L 501.2300, L500.2500 #### [facility] [address] [place], [place], [address] Magnesium (Unsp spec) [Mass/ Vol]Ordered By: Evelyn Mccall on 11-08-2024 Magnesium [Mass/Vol] 1.6 mg/dL 1.5-2.2 [facility] Monocytes/100 WBC (Syn fld)O rdered By: Dennis Rocha on 11-08-2024 Synovial Fluid Monocytes 14 % [facility] Mononuclear cells Auto (Syn fld) [#/Vol]Ordered By: Dennis Rocha on 11-08-2024 Synovial Fluid Mononuclear WBCs 1.409 10^3/ul [facility] Mononuclear cells/100 WBC (S yn fld)Ordered By: Dennis Rocha on 11-08-2024 Synovial Fluid Mononuclear WBCs % 35.4 % [facility] Neutrophils/100 WBC (Syn fld )Ordered By: Dennis Rocha on 11-08-2024 Synovial Fluid Neutrophils 46 % High 0-25 [facility] Pathologist review Mitchell (Unsp spec) [Interp]Ordered By: Dennis Rocha on 11-08-2024 Synovial Fluid Pathologist Comment May follow [facility] Polymorphonuclear cells Auto (Syn fld) [#/Vol]Ordered By: Dennis Rocha on 11-08-2024 Synovial Fluid Polynuclear WBCs 2.572 10^3/uL [facility] Polymorphonuclear cells/100 WBC Auto (Syn fld)Ordered By: Dennis Rocha on 11-08-2024 Synovial Fluid Polynuclear WBCs % 64.6 % [facility] RBC (Syn fld) [#/Vol]Ordered By: Dennis Rocha on 11-08-2024 Synovial Fluid RBC 2.743 10^6/uL High 0-0 [facility] Serum or plasma uric acid me asurement (mass/volume)Ordered By: Eduardo Hartley on 11-08-2024 Urate [Mass/Vol] 4.5 mg/dL 3.5-7.2 [facility] Comment on above: The drugs N-Acetylcy steine and Metamizole may falsely depress this assay. Specimen source Nom (Body fl d)Ordered By: Dennis Rocha on 11-08-2024 Body Fluid Crystal Source SYNOVIAL [facility] Synovial Fluid Source LEFT WRIST ASPIRATE [facility] TSH DL <= 0.005 mIU/L QnOrde red By: Evelyn Mccall on 11-08-2024 Thyroid Stimulating Hormone (TSH) 2.530 uIU/mL 0.300-4.20 0 [facility] Thyroid Stim Hormone (TSH)on 11-08-2024 TSH 2.530 uIU/mL Normal 0.300-4.20 0 [facility] Comment on above: Performed By: #### L 501.2300, L500.2500 #### [facility] [address], [address] Uric Acidon 11-08-2024 URIC 4.5 mg/dL Normal 3.5-7.2 [facility] Comment on above: Result Comment: The drugs N-Acetylcysteine and Metamizole may falsely depress this assay. Performed By: #### L 500.2500, L501.6710, L501.1400, L100.0100, L101.9900 #### [facility] [address] [place], [address] WBC Auto (Syn fld) [#/Vol]Or dered By: Dennis Rocha on 11-08-2024 Synovial Fluid WBC 3.9810 10^3/uL High 0.000-0 .00 2 [facility] Wrist min 3 Viewson 11-09-19 Wrist min 3 Views [facility] Imaging Services [address] [place] [address] Wrist min 3 Views MR#: [id number] Acct: [id number] Name: PACO WHITNEY Rep #: [id number] : 1935 M 89 From: Dennis Lechuga PCP: Dr. Clarice Murillo MD Status: [facility] ER Study: Wrist min 3 Views Date of Exam: 11/08/24 Exam# [id number] Ordering Dr: Eduardo Hartley DO EXAM: Left wrist radiographs CLINICAL HISTORY: Pain, swelling COMPARISON: None TECHNIQUE: Three views of the left wrist FINDINGS: See impression RAD/Wrist min 3 Views IMPRESSION: Negative for acute displaced fracture or dislocation. 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 Severe diffuse soft tissue swelling about the wrist. No cortical destruction. Osteopenia. Reading Location: [facility] CC: Dr. Clarice Murillo MD; Dr. Eduardo Hartley DO Reefer Engineer: Signed Normal [facility] CNOVon 11-03-2024 [facility] Office Visit (UCWSTR ) PACO WHITNEY ([id number]) 1935 M Date Time Provider Department 11/03/24 8:30 AM [facility] During your visit today, we recorded the following information about you: Temperature Pulse Respiration Blood pressure 97.8 degrees 68/minute 16/minute 132/72 Weight 91.1 kg Jyothi Mosley APRN.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 11/03/2024 9:08 AM Signed [facility] Subjective Paco Whitney is a 89 year old male. - Worsening cough and rhinorrhea x4 days. - Reports tightness in the chest. - feels like he can't get a good breath in, no chest pain - Usually does not produce sputum, but currently expectorating greenish material. - Denies fever >100.4?F. - Using Symbicort inhaler; refilled yesterday. - Has not used albuterol nebulizer recently; reports doing well without it. - Using albuterol inhaler. - Has Mucinex but has not used it. - Denies diabetes mellitus. Positive h/o of COPD, Asthma Patient presents with: Cough: Cough, congestion and ST x 4 days The history is provided by the patient. No language assistant was used. Review of Systems Constitutional: Negative for fatigue and fever. HENT: Positive for congestion and rhinorrhea. Negative for ear pain, sinus pressure, sinus pain and sore throat. Eyes: Negative for discharge. Respiratory: Positive for cough, shortness of breath and wheezing. Gastrointestinal: Negative for abdominal pain, diarrhea, nausea and vomiting. Musculoskeletal: Negative for arthralgias and myalgias. Neurological: Negative for headaches. Constitutional: (-) fever Ears/Nose/Mouth/Throat: (+) sneezing, (+) congestion Respiratory: (+) cough, (+) phlegm Objective BP 132/72 Pulse 68 Temp 36.6 ?C (97.8 ?F) (Tympanic) Resp 16 Wt 91.1 kg (200 lb 13.4 oz) SpO2 95% BMI 28.82 kg/m? Physical Exam Vitals and nursing note reviewed. Constitutional: General: He is not in acute distress. Appearance: He is not diaphoretic. HENT: Head: Normocephalic and atraumatic. Right Ear: Tympanic membrane, ear canal and external ear normal. No middle ear effusion. Tympanic membrane is not injected, erythematous, retracted or bulging. Left Ear: Tympanic membrane, ear canal and external ear normal. No middle ear effusion. Tympanic membrane is not injected, erythematous, retracted or bulging. Nose: Nose normal. Right Sinus: No maxillary sinus tenderness or frontal sinus tenderness. Left Sinus: No maxillary sinus tenderness or frontal sinus tenderness. Mouth/Throat: Pharynx: Uvula midline. Eyes: Conjunctiva/sclera: Conjunctivae normal. Pupils: Pupils are equal, round, and reactive to light. Cardiovascular: Rate and Rhythm: Normal rate and regular rhythm. Heart sounds: Normal heart sounds. Pulmonary: Effort: Pulmonary effort is normal. No respiratory distress. Breath sounds: Normal breath sounds. Decreased air movement present. No wheezing or rales. Comments: A rattling moist cough was noted during this encounter. Talking in full sentences. Handling secretions without drooling. Lips and nailbeds are pink without cyanosis. Musculoskeletal: Cervical back: Normal range of motion and neck supple. Lymphadenopathy: Head: Right side of head: No submental, submandibular, tonsillar, preauricular or posterior auricular adenopathy. Left side of head: No submental, submandibular, tonsillar, preauricular or posterior auricular adenopathy. Skin: General: Skin is dry. Neurological: Mental Status: He is alert and oriented to person, place, and time. History and Record Review External record(s) reviewed: prior outpatient record. Findings from review of outpatient records: medications, kidney funtion, GFR ASSESSMENT/PLAN: 1. URI with cough and congestion - ICD9: 465.9, ICD10: J06.9 (primary diagnosis) - Onset 3-4 days ago, progressively worsening; no fever >100.4?F reported. - Examination reveals nasal congestion and productive cough with greenish sputum; lung auscultation reveals no significant abnormalities. - Suspected viral etiology exacerbating underlying COPD and asthma. - Ordered rapid COVID-19 test to be performed in the office. - Prescribed prednisone for 5 days to reduce inflammation. - Advised use of albuterol inhaler every 4 hours and provided new albuterol nebulizer solution. - Recommended initiation of Mucinex to aid in mucus clearance. - COVID-19 MOLECULAR (POC) 2. COPD with acute exacerbation (HCC) - ICD9: 491.21, ICD10: J44.1 3. Asthma with COPD with exacerbation (HCC) - ICD9: 493.22, ICD10: J44.1 Albuteral inhaler or nebulizer prn Follow up with charting clerk as needed Diagnosis and treatment plan were discussed and questions were answered to the patient's satisfaction. Pt acknowledged understanding of concepts and follow up plan. Specific signs and symptoms that would indicate the need for higher level of (more content not included)... Normal [facility] COVID-19 MOLECULAR (POC)on 0 11-03-2024 Procedural Control Valid [facility] SARS-CoV-2 (COVID-19) RNA DEV+probe Ql (Unsp spec) Negative Negative [facility] Comment on above: Location:[facility], [address] [place] [address], [place], [place], [address] [place] [address] CNOVon 09-24-2024 CNOV Office Visit (PULMWS ) PACO WHITNEY ([id number]) 1935 M Date Time Provider Department 09/24/24 10:00 AM FRANCIA LUNA PULMWS During your visit today, we recorded the following information about you: Pulse Respiration Blood pressure Weight 74/minute 16/minute 118/73 90.2 kg Francia Luna MD 09/24/2024 7:37 PM Signed . Respiratory [place] Note Patient name: Paco Rocha Devonte PCP: Clarice Murillo MD CC: COPD HPI: Paco Whitney 89 year old male former 60 pack year smoker, quitting in 1990 with PMH significant ofr chronic bronchitis GERD, HTN, AAA s/p repair, pulmonary nodules, ILD. History or RLL 3 cm lung mass s/p biopsy in 2014 negative for malignancy. Chest imaging consistent with rounded atelectasis. Current inhaled therapy with Symbicort and as needed albuterol. Overall doing well, a few asthma attacks. Seems to be triggered by certain smells/odors. Rare use of albuterol. He has not been ill with any upper respiratory infection nor required hospitalization. DATA: Imaging / Diagnostic Studies: ABD CT 02/2023: Chest CT 2018: PAST MEDICAL HISTORY Diagnosis Date AAA (abdominal aortic aneurysm) without rupture (HCC) Bronchitis, chronic (HCC) Diverticulitis 12/16/2014 Diverticulosis of colon with hemorrhage Essential hypertension, benign Focal atelectasis Rounded atelectasis GERD (gastroesophageal reflux disease) History of eye surgery 03/29/2011 Right eye Other and unspecified hyperlipidemia Peripheral neuropathy Rectal bleeding 12/16/2014 Retinal detachment with retinal defect, unspecified RIGHT EYE, WITH LENSE Rhabdomyolysis 07/18/2003 had as a result of Baycol Unspecified asthma(493.90) Unspecified cause of encephalitis, myelitis, 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 Lopid [Gemfibrozil] Other: See Comments Myalgia. pantoprazole DR (PROTONIX) 40 mg tablet Take 1 tablet by mouth daily before breakfast. Take on empty stomach, 1/2 hr before meal. tamsulosin (FLOMAX) 0.4 mg TAKE ONE CAPSULE BY MOUTH ONCE DAILY AT BEDTIME albuterol HFA (VENTOLIN HFA) 90 mcg/actuation inhaler Inhale 2 Puffs as instructed every 4 hours as needed for wheezing/shortness of breath. gabapentin (NEURONTIN) 600 mg tablet Take 1 tablet by mouth three times a day for 180 days. meclizine (ANTIVERT) 25 mg tab Take 1 tablet by mouth every 6 hours as needed. FOR DIZZINESS Fenofibrate (LOFIBRA) 160 mg tablet Take 1 tablet by mouth once daily. SYMBICORT 160-4.5 mcg/actuation inhaler INHALE 2 PUFFS BY MOUTH TWICE DAILY DIRECTED ramipril (ALTACE) 10 mg capsule Take 1 capsule by mouth once daily. yyerzdeh-gpfilvnkj-rokgkptfh isone (CORTISPORIN) 3.5-10,000-1 mg/mL-unit/mL-% otic suspension Use 4 Drops in the ears four times daily. x 1 week clotrimazole-betamethasone (LOTRISONE) cream Apply 1 application to affected area two times a day. As needed guaiFENesin (MUCINEX) 600 mg 12 hr tablet Take 2 tablets by mouth twice daily. As needed acetaminophen (TYLENOL) 500 mg tablet Take 2 tablets by mouth every 6 hours. cholecalciferol (VITAMIN D3) 1,000 unit tab tablet Cholecalciferol (Vit D3) Active 3000 UNIT TWICE A DAY November 23, 2014 8:06am aspirin 81 mg cap Take 1 capsule by mouth once daily. Social History Tobacco Use Smoking status: Former Current packs/day: 0.00 Average packs/day: 2.0 packs/day for 32.0 years (64.0 ttl pk-yrs) Types: Cigarettes Start date: 1957 Quit date: 10/30/1990 Years since quittin.9 Smokeless tobacco: Never Tobacco comments: Multiple 4-5 year quits during smoking career. Vaping Use Vaping status: Never Used Substance Use Topics Alcohol use: No Drug use: No PMH, Social history, family history and surgical history reviewed and updated in EMR REVIEW OF SYSTEMS: CONSTITUTIONAL: No fevers, chills, nightsweats, unintended weight loss HEENT: Denies nasal congestion/sinus symptoms, allergy problems. CARDIOVASCULAR: No chest pain, dyspnea, palpitations, edema. PULM: See HPI GI: No dysphagia/odynophagia, problematic reflux, constipation, diarrhea, changes in stool habits, hematochezia, melena. NEURO: Neuropathy INTEGUMENTARY: No new skin changes PHYSICAL EXAMINATION: BP 118/73 Pulse 74 Resp 16 Wt 198 lb 12.8 oz (90.2kg) SpO2 96% General Appearance: Elderly male, NAD. Skin: Skin color, texture, turgor normal, no suspicious rashes or lesions. Head: Normocephalic, no masses, lesions, tenderness or abnormalities. Oropharynx: Poor dentition, no thrush. (more content not included)... Normal [facility] CNOVon 08-01-2024 CNOV Office Visit (FAMWS ) PACO WHITNEY ([id number]) 1935 M Date Time Provider Department 08/01/24 2:40 PM KALRA CAMPUZANO [facility] During your visit today, we recorded the following information about you: Pulse Respiration Blood pressure Weight 71/minute 16/minute 104/62 89.7 kg Karla Campuzano APRN.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 08/01/2024 3:33 PM Signed This is a 89 year old male who presents today with: Patient presents with: Follow Up: 4 month follow up HISTORY OF PRESENT ILLNESS: Paco Whitney is a 89 year old male. Patient presents with: Follow Up: 4 month follow up 4 month follow up GERD: Taking Protonix 40 mg daily, symptoms well controlled. HTN: Taking ramipril 10 mg daily. Not currently checking blood pressure at home. Has had ongoing dizziness in the past, uses meclizine as needed. Stress test was completed in November 2022. AAA: Following with vascular medicine, Dr. Nolen. Had follow up with Dr. Sultana (surgeon), had an US completed. Has stent in place. Us showed patent graft. Monitoring. Lipid: Watching diet, difficulty exercising due to pain and neuropathy. Taking Lofibra 160 mg daily. Trigs elevated on recent labs. Chronic neuropathy: Using cane for ambulation. Taking gabapentin 600 mg 3 times daily and Tylenol as needed. Gabapentin was increased at last office visit which has been helpful. 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 Taking aspirin 81 mg daily. Will apply diabetic foot cream to feet as needed for pain. COPD: Taking Symbicort twice daily, albuterol and nebulizer as needed. Follows with pulmonology every 6 months. Chronic shoulder pain: Following with orthopedics, Dr. Ashton . Has had injections in the past. Refers that bilateral shoulder pain seems to be getting worse. Taking Tylenol 650 mg daily prn. Dizziness: Using Meclizine 25 mg as needed which has been helpful. 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 Romeo RPR RETINAL DTCHMNT DRG SUBRETINAL FLUID PC 2003 Laser repair retinal detach, right eye TONSILLECTOMY PRIMARY/SECONDARY Tonsillectomy VASECTOMY UNI/BI SPX W/POSTOP SEMEN EXAMS 1964 ALLERGIES Demerol [Meperidine (Pf)], Baycol, Contrast Dye [Iodine], and Lopid [Gemfibrozil] MEDICATIONS Current Outpatient Medications Medication Sig Fenofibrate (LOFIBRA) 160 mg tablet Take 1 tablet by mouth once daily. gabapentin (NEURONTIN) 600 mg tablet Take 1 tablet by mouth three times a day for 180 days. SYMBICORT 160-4.5 mcg/actuation inhaler INHALE 2 PUFFS BY MOUTH TWICE DAILY DIRECTED ramipril (ALTACE) 10 mg capsule Take 1 capsule by mouth once daily. tamsulosin (FLOMAX) 0.4 mg TAKE ONE CAPSULE BY MOUTH ONCE DAILY AT BEDTIME pantoprazole DR (PROTONIX) 40 mg tablet Take 1 tablet by mouth daily before breakfast. Take on empty stomach, 1/2 hr before meal. merqlvgf-yjrokxvka-azasxckkd isone (CORTISPORIN) 3.5-10,000-1 mg/mL-unit/mL-% otic suspension Use 4 Drops in the ears four times daily. x 1 week clotrimazole-betamethasone (LOTRISONE) cream Apply 1 application to affected area two times a day. As needed meclizine (ANTIVERT) 25 mg tab Take 1 tablet by mouth every 6 hours as needed. FOR DIZZINESS albuterol HFA (VENTOLIN HFA) 90 mcg/actuation inhaler Inhale 2 Puffs as instructed every 4 hours as needed for wheezing/shortness of breath. guaiFENesin (MUCINEX) 600 mg 12 hr tablet Take 2 tablets by mouth twice daily. As needed acetaminophen (TYLENOL) 500 mg tablet Take 2 tablets by mouth every 6 hours. cholecalciferol (VITAMIN D3) 1,000 unit tab tablet Cholecalciferol (Vit D3) Active 3000 UNIT TWICE A DAY November 23, 2014 8:06am aspirin 81 mg cap Take 1 capsule by mo (more content not included)... Normal [facility] Comprehensive metabolic 2000 panelon 07-24-2024 Albumin [Mass/Vol] 4.2 g/dL Normal 3.9-4.9 [facility] Comment on above: Order Comment: Speci men Type: BLOOD SPECIMENOrdering Facility: [facility] Address: [address] [place] [address] Performed By: #### 2 4323-8, 51971-4 ####[facility] LABCLIA [id number] [place] [address] [place] ALP [Catalytic activity/Vol] 81 U/L Normal 38-113 [facility] Comment on above: Order Comment: Speci men Type: BLOOD SPECIMENOrdering Facility: [facility] Address: [address] [place] [address] Performed By: #### 2 4323-8, 48827-4 ####[facility] LABCL[facility] [id number] [place] [address] [place] ALT [Catalytic activity/Vol] 20 U/L Normal 10-54 [facility] Comment on above: Order Comment: Speci men Type: BLOOD SPECIMENOrdering Facility: [facility] Address: [address] [place] [address] Performed By: #### 2 4323-8, 68717-2 ####[facility]CLIA [id number] [place] [address] [place] Anion gap [Moles/Vol] 12 mmol/L Normal 8-15 [facility] Comment on above: Order Comment: Speci men Type: BLOOD SPECIMENOrdering Facility: [facility] Address: [address] [place] [address] Performed By: #### 2 4323-8, 17525-9 ####[facility]CLIA [id number] [place] [address] [place] AST [Catalytic activity/Vol] 26 U/L Normal 14-40 [facility] Comment on above: Order Comment: Speci men Type: BLOOD SPECIMENOrdering Facility: [facility] Address: [address] [place] [address] Performed By: #### 2 4323-8, 75824-6 ####[facility]CLIA [id number] [place] [address] [place] Bilirubin [Mass/Vol] 0.9 mg/dL Normal 0.2-1.3 [facility] Comment on above: Order Comment: Speci men Type: BLOOD SPECIMENOrdering Facility: [facility] Address: [address] [place] [address] Performed By: #### 2 4323-8, 55082-0 ####[facility]CLIA [id number] [place] [address] [place] Calcium [Mass/Vol] 10.2 mg/dL Normal 8.5-10.2 [facility] Comment on above: Order Comment: Speci men Type: BLOOD SPECIMENOrdering Facility: [facility] Address: [address] [place] [id number] Performed By: #### 2 4323-8, 53447-4 ####[facility] LABCLIA [id number] [place] [id number] [place] Chloride [Moles/Vol] 106 mmol/L Normal 98-107 [facility] Comment on above: Order Comment: Speci men Type: BLOOD SPECIMENOrdering Facility: [facility] Address: [address] [place] [address] Performed By: #### 2 4323-8, 25737-5 ####[facility]CL[facility] [id number] [place] [address] [place] CO2 [Moles/Vol] 25 mmol/L Normal 22-30 [facility] Comment on above: Order Comment: Speci men Type: BLOOD SPECIMENOrdering Facility: [facility] Address: [address] [place] [address] Performed By: #### 2 4323-8, 99872-2 ####[facility]CLIA [id number] [place] [address] [place] Creatinine [Mass/Vol] 1.00 mg/dL Normal 0.73-1.22 [facility] Comment on above: Order Comment: Speci men Type: BLOOD SPECIMENOrdering Facility: [facility] Address: [address] [place] [address] Performed By: #### 2 4323-8, 82131-4 ####[facility]CLIA [id number] [place] [address] [place] Creatinine and Glomerular filtration rate.predicted panel (S/P/Bld) 73 mL/min/1.73m??? Normal >=60 [facility] Comment on above: Order Comment: Speci men Type: BLOOD SPECIMENOrdering Facility: [facility] Address: [address] [place] [address] Result Comment: Toya mated Glomerular Filtration Rate (eGFR) is calculated using the 2020 CKD-EPI creatinine equation. This equation utilizes serum creatinine, sex, and age as parameters. The creatinine assay has traceable calibration to isotope dilution-mass spectrometry. Refer to KDIGO guidelines for clinical interpretation. In patients with unstable renal function, e.g. those with acute kidney injury, the eGFR may not accurately reflect actual GFR. Performed By: #### 2 4323-8, 23581-3 ####[facility] LABIA [id number] [place] [address] [place] Glucose [Mass/Vol] 107 mg/dL High 74-99 [facility] Comment on above: Order Comment: Speci men Type: BLOOD SPECIMENOrdering Facility: [facility] Address: [address] [place] [address] Result Comment: The [place] Diabetes Association (ADA) provides guidance for cutoff values for fasting glucose and random glucose. The ADA defines fasting as no caloric intake for at least 8 hours. Fasting plasma glucose results between 100 to 125 [...] Standards of Medical Care in Diabetes 2016, [place] [employer] Association. Diabetes Care. 2016.39(Suppl 1). Performed By: #### 2 4323-8, 39034-2 ####[facility] LABIA [id number] [place] [id number] [place] Potassium [Moles/Vol] 4.5 mmol/L Normal 3.7-5.1 [facility] Comment on above: Order Comment: Specchichi men Type: BLOOD SPECIMENOrdering Facility: [facility] Address: [address] [place] [address] Performed By: #### 2 4323-8, 84763-0 ####[facility]CLIA [id number] [place] [address] [place] Protein [Mass/Vol] 7.0 g/dL Normal 6.3-8.0 [facility] Comment on above: Order Comment: Speci men Type: BLOOD SPECIMENOrdering Facility: [facility] Address: [address] [place] [address] Performed By: #### 2 4323-8, 17470-8 ####[facility] LABCLIA [id number] [place] [address] [place] Sodium [Moles/Vol] 143 mmol/L Normal 136-144 [facility] Comment on above: Order Comment: Speci men Type: BLOOD SPECIMENOrdering Facility: [facility] Address: [address] [place] [address] Performed By: #### 2 4323-8, 49577-4 ####[facility] LABIA [id number] [place] [address] [place] Urea nitrogen [Mass/Vol] 27 mg/dL High 9-24 [facility] Comment on above: Order Comment: Speci men Type: BLOOD SPECIMENOrdering Facility: [facility] Address: [address] [place] [address] Performed By: #### 2 4323-8, 18687-8 ####[facility] LABCLIA [id number] [place] [address] [place] Lipid 1996 panelon 5 Cholesterol [Mass/Vol] 159 mg/dL Normal <200 [facility] Comment on above: Order Comment: Speci men Type: BLOOD SPECIMENOrdering Facility: [facility] Address: [address] [place] [address] Result Comment: <200 mg/dL, Desirable 200-239 mg/dL, Borderline high >239 mg/dL, High Performed By: #### 2 4323-8, 04694-3 ####[facility]CLIA [id number] [address] [place] Cholesterol in HDL [Mass/Vol] 33 mg/dL Low >39 [facility] Comment on above: Order Comment: Zach vinson Type: BLOOD SPECIMENOrdering Facility: [facility] Address: [address] [place] [address] Result Comment: 40-5 9 mg/dL, Acceptable >59 mg/dL, High: Negative risk factor for coronary heart disease <40 mg/dL, Low: Positive risk factor for coronary heart disease Performed By: #### 2 4323-8, 38666-0 ####[facility]CLIA [id number] [address] Cholesterol in LDL [Mass/Vol] 86 mg/dL Normal <100 [facility] Comment on above: Order Comment: Zach [facility] Type: BLOOD SPECIMENOrdering Facility: [facility] Address: [address] [place] [address] Result Comment: <100 mg/dL, Optimal 100-129 mg/dL, Near optimal/above optimal 130-159 mg/dL, Borderline high 160-189 mg/dL, High >189 mg/dL, Very high Secondary prevention optimal LDL Cholesterol levels are recommended to be < 70 mg/dL Performed By: #### 2 4323-8, 52780-9 ####[facility]CLIA [id number] [address] OF [facility] Cholesterol in LDL/Cholesterol in HDL [Mass ratio] 2.61 {ratio} High <2.54 [facility] Comment on above: Order Comment: Specchichi [facility] Type: BLOOD SPECIMENOrdering Facility: [facility] Address: [address] [place] [address] Result Comment: Arnoldo ross: 1. National Cholesterol Education Program ATP III Guideline At-A-Glance Quick Desk Reference: National Heart, Lung, and Blood [place]. National Institutes of Health. 2001: NIH Publication No. 01-3305. 2. An International Atherosclerosis Society position paper: global recommendations for the management of dyslipidemia: executive summary, Atherosclerosis. 2014: 232(2):410-413. Performed By: #### 2 4323-8, 30761-0 ####[facility]CLIA [id number] [place] [address] [place] Cholesterol in VLDL [Mass/Vol] 40 mg/dL High <30 [facility] Comment on above: Order Comment: Speci men Type: BLOOD SPECIMENOrdering Facility: [facility] Address: [address] [place] [address] Performed By: #### 2 4323-8, 61298-3 ####[facility]CLIA [id number] [place] [address] [place] Cholesterol non HDL [Mass/Vol] 126 mg/dL Normal <130 [facility] Comment on above: Order Comment: Speci men Type: BLOOD SPECIMENOrdering Facility: [facility] Address: [address] [place] [address] Result Comment: <130 mg/dL, Optimal 130-159 mg/dL, Near optimal/above optimal 160-189 mg/dL, Borderline high 190-219 mg/dL, High >219 mg/dL, Very high Secondary prevention optimal non HDL Cholesterol levels are recommended to be <100 mg/dL Performed By: #### 2 4323-8, 18568-1 ####[facility]CL[facility] [id number] [place] [address] [place] Cholesterol.total/Chol esterol in HDL [Mass ratio] 4.82 {ratio} Normal <5.10 [facility] Comment on above: Order Comment: Speci men Type: BLOOD SPECIMENOrdering Facility: [facility] Address: [address] [place] [address] Performed By: #### 2 4323-8, 03172-7 ####[facility] LABCLIA [id number] [place] [id number] [place] FASTING TIME 12 hrs Normal [facility] Comment on above: Order Comment: Speci men Type: BLOOD SPECIMENOrdering Facility: [facility] Address: [address] [place] [address] Performed By: #### 2 4323-8, 34597-8 ####[facility] LABCLIA [id number] [place] [address] [place] Triglyceride [Mass/Vol] 200 mg/dL High <150 [facility] Comment on above: Order Comment: Speci men Type: BLOOD SPECIMENOrdering Facility: [facility] Address: [address] [place] [address] Result Comment: <150 mg/dL, Normal 150-199 mg/dL, Borderline high 200-499 mg/dL, High >499 mg/dL, Very high Performed By: #### 2 4323-8, 64132-6 ####[facility] LABCLIA [id number] [place] [address] [place] CNOVon 03-21-2024 [facility] PACO WHITNEY ([id number]) 1935 M Date Time Provider Department 03/21/24 1:40 PM KARLA CAMPUZANO [facility] During your visit today, we recorded the following information about you: Karla Campuzano APRN.CNP 03/21/2024 3:12 PM Signed This is a 88 year old male who presents today with: Patient presents with: Follow Up HISTORY OF PRESENT ILLNESS: Paco Whitney is a 88 year old male. Patient presents with: Follow Up GERD: Taking Protonix 40 mg daily, symptoms well controlled. HTN: Taking ramipril 10 mg daily. Not currently checking blood pressure at home. Has had ongoing dizziness in the past, uses meclizine as needed. Stress test was completed in November 2022. AAA: Following with vascular medicine, Dr. Nolen. Had follow up with Dr. Sultana (surgeon), had an US completed. Has stent in place. Us showed patent graft. Lipid: Watching diet, difficulty exercising due to pain and neuropathy. Taking Lofibra 160 mg daily. Trigs elevated on recent labs. Chronic neuropathy: Using cane for ambulation. Taking gabapentin 600 mg 3 times daily and Tylenol as needed. Gabapentin was increased at last office visit which has been helpful. 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 Taking aspirin 81 mg daily. Will apply diabetic foot cream to feet as needed for pain. COPD: Taking Symbicort twice daily, albuterol and nebulizer as needed. Follows with pulmonology every 6 months. Chronic shoulder pain: Following with orthopedics. Has had injections in the past. Vaccine: Would like flu vaccine PAST MEDICAL HISTORY: PAST MEDICAL HISTORY No date: AAA (abdominal aortic aneurysm) without rupture (HCC) No date: Bronchitis, chronic (HCC) 12/16/2014: Diverticulitis No date: Diverticulosis of colon with hemorrhage No date: Essential hypertension, benign No date: GERD (gastroesophageal reflux disease) 03/29/2011: History of eye surgery Comment: Right eye No date: Other and unspecified hyperlipidemia 12/16/2014: Rectal bleeding No date: Retinal detachment with retinal defect, unspecified Comment: RIGHT EYE, WITH LENSE 07/18/2003: Rhabdomyolysis Comment: had as a result of Baycol No date: Unspecified asthma(493.90) No date: Unspecified cause of encephalitis, myelitis, and encephalomyelitis Comment: had mumps as an adult No date: Unspecified transient cerebral ischemia Comment: x 2; artery syndrome PAST SURGICAL HISTORY 2002: ARTHRP KNE CONDYLEANDPLATU MEDIALANDLAT COMPARTMENTS Comment: Knee replacement, total, left 2006: CHOLECYSTECTOMY Comment: Cholecystectomy 04/11/2006: COLONOSCOPY 12/16/2014: COLONOSCOPY Comment: widespread diverticulosis,Repeat 202409/19/2011: COLONOSCOPY FLX DX W/COLLJ SPEC WHEN PFRMD Comment: Colonoscopy [facility] 01/2013: ENDOVASCULAR ANEURYSM REPAIR Comment: with bi-liac device 04/03/2013: HERNIA REPAIR HX 1971: PAST SURGICAL HISTORY OF Comment: Back Surgery 11/15/2016: PAST SURGICAL HISTORY OF Comment: Colonoscopy, Dr. Romeo 2004: RPR RETINAL DTCHMNT DRG SUBRETINAL FLUID PC Comment: Laser repair retinal detach, right eye No date: TONSILLECTOMY PRIMARY/SECONDARY Comment: Tonsillectomy 1964: VASECTOMY UNI/BI SPX W/POSTOP SEMEN EXAMS ALLERGIES Demerol [Meperidine (Pf)], Baycol, Contrast Dye [Iodine], and Lopid [Gemfibrozil] MEDICATIONS Current Outpatient Medications Medication Sig gabapentin (NEURONTIN) 600 mg tablet Take 1 tablet by mouth three times a day for 180 days. SYMBICORT 160-4.5 mcg/actuation inhaler INHALE 2 PUFFS BY MOUTH TWICE DAILY DIRECTED ramipril (ALTACE) 10 mg capsule Take 1 capsule by mouth once daily. tamsulosin (FLOMAX) 0.4 mg TAKE ONE CAPSULE BY MOUTH ONCE DAILY AT BEDTIME pantoprazole DR (PROTONIX) 40 mg tablet Take 1 tablet by mouth daily before breakfast. Take on empty stomach, 1/2 hr before meal. wjigbmcd-rwksrgjkt-mmvwurtao isone (CORTISPORIN) 3.5-10,000-1 mg/mL-unit/mL-% otic suspension Use 4 Drops in the ears four times daily. x 1 week clotrimazole-betamethasone (LOTRISONE) cream Apply 1 application to affected area two times a day. As needed meclizine (ANTIVERT) 25 mg tab Take 1 tablet by mouth every 6 hours as needed. FOR DIZZINESS Fenofibrate (LOFIBRA) 160 mg tablet Take 1 tablet by mouth once daily. albuterol HFA (VENTOLIN HFA) 90 mcg/actuation inhaler Inhale 2 Puffs as instructed every 4 hours as needed for wheezing/shortness of breath. guaiFENesin (MUCINEX) 600 mg 12 hr tablet Take 2 tablets by mouth twice daily. As needed acetaminophen (TYLENOL) 500 mg tablet Take 2 tablets by mouth every 6 hours. cholecalciferol (VITAMIN D3) 1,000 unit tab tablet Cholecalciferol (Vit D3) Active 3000 UNIT TWICE A DAY November 23, 2014 8:06am aspirin 81 mg cap Take 1 capsule by mouth once daily. No current facility-administered medications for this visit. FAMILY HISTORY Pro (more content not included)... Normal [facility] PACO WHITNEY ([id number]) 1935 M Date Time Provider Department 03/14/24 KARLA CAMPUZANO During your visit today, we recorded the following information about you: Karla Campuzano APRN.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 03/14/2024 12:27 PM Signed Can you please call the patient and let him know that I reviewed his lab results. Triglycerides are elevated. I would like him to take current medication. Try to be mindful of processed foods in the diet. Increase lean protein, vegetables, and get some form exercise. May keep upcoming appointment. Please let me know if he has any questions. Thank you. Karla Campuzano APRN.Jhoan Rutherford LPN 03/14/2024 2:24 PM Signed Patient notified of results, verbalizes understanding of instructions. Jhoan Siegel LPN Allergies As of Date: 03/14/2024 Noted Allergy Reaction DEMEROL (MEPERIDINE (PF)) 11/18/2016 1 - Mental Status Change Comments: Gave too high of dose BAYCOL 02/01/2023 14 - Other: See Comments Comments: Rhabdoymyolysis CONTRAST DYE (IODINE) 06/28/2019 5 - Intolerance Comments: pt needs to be oral hydrated after injection,..patient STATES HE IS NOT ALLERGIC TO IV DYE.. LOPID (GEMFIBROZIL) 07/14/2006 14 - Other: See Comments Comments: Myalgia. Date Reviewed: 01/16/2024 Reviewed by: Jhoan Siegel LPN - Fully Assessed Reason for Visit: Results [95] Prescriptions as of 03/14/2024 - gabapentin (NEURONTIN) 600 mg tablet Take 1 tablet by mouth three times a day for 180 days. - SYMBICORT 160-4.5 mcg/actuation inhaler INHALE 2 PUFFS BY MOUTH TWICE DAILY DIRECTED - ramipril (ALTACE) 10 mg capsule Take 1 capsule by mouth once daily. - tamsulosin (FLOMAX) 0.4 mg TAKE ONE CAPSULE BY MOUTH ONCE DAILY AT BEDTIME - pantoprazole DR (PROTONIX) 40 mg tablet Take 1 tablet by mouth daily before breakfast. Take on empty stomach, 1/2 hr before meal. - timqifzc-tdyhqrvfo-icrzrqvrk isone (CORTISPORIN) 3.5-10,000-1 mg/mL-unit/mL-% otic suspension Use 4 Drops in the ears four times daily. x 1 week - clotrimazole-betamethasone (LOTRISONE) cream Apply 1 application to affected area two times a day. As needed - meclizine (ANTIVERT) 25 mg tab Take 1 tablet by mouth every 6 hours as needed. FOR DIZZINESS - Fenofibrate (LOFIBRA) 160 mg tablet Take 1 tablet by mouth once daily. - albuterol HFA (VENTOLIN HFA) 90 mcg/actuation inhaler Inhale 2 Puffs as instructed every 4 hours as needed for wheezing/shortness of breath. - guaiFENesin (MUCINEX) 600 mg 12 hr tablet Take 2 tablets by mouth twice daily. As needed - acetaminophen (TYLENOL) 500 mg tablet Take 2 tablets by mouth every 6 hours. - cholecalciferol (VITAMIN D3) 1,000 unit tab tablet Cholecalciferol (Vit D3) Active 3000 UNIT TWICE A DAY November 23, 2014 8:06am - aspirin 81 mg cap Take 1 capsule by mouth once daily. 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]01/01/2014 AAA (abdominal aortic aneurysm) (HCC) [I71.40] 07/09/2014 11/25/2020 Enlarged prostate [N40.0] 10/29/2014 Lower urinary tract symptoms (LUTS) [R39.9] 10/29/2014 History of kidney stones [Z87.442] 10/29/2014 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0] 02/01/2023 Hypomagnesemia [E83.42] 02/01/2023 Peripheral arterial disease (HCC) [I73.9] 03/08/2023 Elevated HDL [E78.89] 03/08/2023 Encounter Status:Closed by JHOAN SIEGEL on 03/14/24 Normal [facility] Comprehensive metabolic 2000 panelon 03-07-2024 Albumin [Mass/Vol] 4.0 g/dL Normal 3.9-4.9 [facility] Comment on above: Order Comment: Speci men Type: BLOOD SPECIMENOrdering Facility: [facility] Address: [address] [place] [address] Performed By: #### 2 3143-8, 04612-4 ####[facility] LABCL[facility] [id number] [place] [address] [place] ALP [Catalytic activity/Vol] 74 U/L Normal 38-113 [facility] Comment on above: Order Comment: Speci men Type: BLOOD SPECIMENOrdering Facility: [facility] Address: [address] [place] [address] Performed By: #### 2 4323-8, 60199-9 ####[facility] LABCL[facility] [id number] [address] [address] [place] ALT [Catalytic activity/Vol] 20 U/L Normal 10-54 [facility] Comment on above: Order Comment: Speci men Type: BLOOD SPECIMENOrdering Facility: [facility] Address: [address] [place] [address] Performed By: #### 2 4323-8, 49477-5 ####[facility] LABCLIA [id number] [place] [address] [place] Anion gap [Moles/Vol] 11 mmol/L Normal 8-15 [facility] Comment on above: Order Comment: Speci men Type: BLOOD SPECIMENOrdering Facility: [facility] Address: [address] [place] [address] Performed By: #### 2 4323-8, 21248-8 ####[facility] LABCLIA [id number] [place] [address] [place] AST [Catalytic activity/Vol] 28 U/L Normal 14-40 [facility] Comment on above: Order Comment: Speci men Type: BLOOD SPECIMENOrdering Facility: [facility] Address: [address] [place] [address] Performed By: #### 2 4323-8, 91003-6 ####[facility] LABCLIA [id number] [place] [address] [place] Bilirubin [Mass/Vol] 0.9 mg/dL Normal 0.2-1.3 [facility] Comment on above: Order Comment: Speci men Type: BLOOD SPECIMENOrdering Facility: [facility] Address: [address] [place] [address] Performed By: #### 2 4323-8, 18803-2 ####[facility] LABCLIA [id number] [place] [address] [place] Calcium [Mass/Vol] 9.8 mg/dL Normal 8.5-10.2 [facility] Comment on above: Order Comment: Speci men Type: BLOOD SPECIMENOrdering Facility: [facility] Address: [address] [place] [place] [id number] Performed By: #### 2 4323-8, 42376-8 ####[facility] LABCLIA [id number] [facility] [place] [address] [place] Chloride [Moles/Vol] 105 mmol/L Normal 98-107 [facility] Comment on above: Order Comment: Speci men Type: BLOOD SPECIMENOrdering Facility: [facility] Address: [address] [place] [address] Performed By: #### 2 4323-8, 42806-3 ####[facility] LABCLIA [id number] [place] [address] [place] CO2 [Moles/Vol] 24 mmol/L Normal 22-30 [facility] Comment on above: Order Comment: Speci men Type: BLOOD SPECIMENOrdering Facility: [facility] Address: [address] [place] [address] Performed By: #### 2 4323-8, 91134-1 ####[facility] LABCLIA [id number] [place] [address] [place] Creatinine [Mass/Vol] 1.06 mg/dL Normal 0.73-1.22 [facility] Comment on above: Order Comment: Speci men Type: BLOOD SPECIMENOrdering Facility: [facility] Address: [address] [place] [address] Performed By: #### 2 4323-8, 96369-7 ####[facility] LABCLIA [id number] [place] [address] [place] Creatinine and Glomerular filtration rate.predicted panel (S/P/Bld) 68 mL/min/1.73m??? Normal >=60 [facility] Comment on above: Order Comment: Speci men Type: BLOOD SPECIMENOrdering Facility: [facility] Address: [address] [place] [address] Result Comment: Toya mated Glomerular Filtration Rate (eGFR) is calculated using the 2020 CKD-EPI creatinine equation. This equation utilizes serum creatinine, sex, and age as parameters. The creatinine assay has traceable calibration to isotope dilution-mass spectrometry. Refer to KDIGO guidelines for clinical interpretation. In patients with unstable renal function, e.g. those with acute kidney injury, the eGFR may not accurately reflect actual GFR. Performed By: #### 2 4323-8, 96421-8 ####[facility] [id number] [place] [address] [place] Glucose [Mass/Vol] 81 mg/dL Normal 74-99 [facility] Comment on above: Order Comment: Zach vinson Type: BLOOD SPECIMENOrdering Facility: [facility] Address: [address] [place] [address] Result Comment: The [place] Diabetes Association (ADA) provides guidance for cutoff values for fasting glucose and random glucose. The ADA defines fasting as no caloric intake for at least 8 hours. Fasting plasma glucose results between 100 to 125 [...] Standards of Medical Care in Diabetes 2016, [place] [employer]. Diabetes Care. 2016.39(Suppl 1). Performed By: #### 2 4323-8, 27959-6 ####[facility] [id number] [place] [id number] [place] Potassium [Moles/Vol] 4.7 mmol/L Normal 3.7-5.1 [facility] Comment on above: Order Comment: Zach [facility] Type: BLOOD SPECIMENOrdering Facility: [facility] Address: [address] [place] [address] Performed By: #### 2 4323-8, 39541-2 ####[facility] LABCLIA [id number] [place] [address] [place] Protein [Mass/Vol] 6.2 g/dL Low 6.3-8.0 [facility] Comment on above: Order Comment: Speci men Type: BLOOD SPECIMENOrdering Facility: [facility] Address: [address] [place] [address] Performed By: #### 2 4323-8, 85950-7 ####[facility] LABIA [id number] [place] [address] [place] Sodium [Moles/Vol] 140 mmol/L Normal 136-144 [facility] Comment on above: Order Comment: Speci men Type: BLOOD SPECIMENOrdering Facility: [facility] Address: [address] [place] [address] Performed By: #### 2 4323-8, 04134-3 ####[facility] LABIA [id number] [place] [address] [place] Urea nitrogen [Mass/Vol] 22 mg/dL Normal 9-24 [facility] Comment on above: Order Comment: Speci men Type: BLOOD SPECIMENOrdering Facility: [facility] Address: [address] [place] [address] Performed By: #### 2 4323-8, 57946-3 ####[facility] LABIA [id number] [place] [id number] [place] Lipid 1996 panelon 4 Cholesterol [Mass/Vol] 179 mg/dL Normal <200 [facility] Comment on above: Order Comment: Speci men Type: BLOOD SPECIMENOrdering Facility: [facility] Address: [address] [place] [address] Result Comment: <200 mg/dL, Desirable 200-239 mg/dL, Borderline high >239 mg/dL, High Performed By: #### 2 4323-8, 62507-2 ####[facility] LABCLIA [id number] [address] OF [facility] Cholesterol in HDL [Mass/Vol] 29 mg/dL Low >39 [facility] Comment on above: Order Comment: Marychichi vinson Type: BLOOD SPECIMENOrdering Facility: [facility] Address: [address] [place] [address] Result Comment: 40-5 9 mg/dL, Acceptable >59 mg/dL, High: Negative risk factor for coronary heart disease <40 mg/dL, Low: Positive risk factor for coronary heart disease Performed By: #### 2 4323-8, 06334-8 ####[facility]CL[facility] [id number] [address] Cholesterol in LDL [Mass/Vol] 97 mg/dL Normal <100 [facility] Comment on above: Order Comment: Zach karel Type: BLOOD SPECIMENOrdering Facility: [facility] Address: [address] [place] [address] Result Comment: <100 mg/dL, Optimal 100-129 mg/dL, Near optimal/above optimal 130-159 mg/dL, Borderline high 160-189 mg/dL, High >189 mg/dL, Very high Secondary prevention optimal LDL Cholesterol levels are recommended to be < 70 mg/dL Performed By: #### 2 4323-8, 11576-4 ####[facility] LABCLIA [id number] [address] OF [facility] Cholesterol in LDL/Cholesterol in HDL [Mass ratio] 3.34 {ratio} High <2.54 [facility] Comment on above: Order Comment: Marychichi vinson Type: BLOOD SPECIMENOrdering Facility: [facility] Address: [address] [place] [address] Result Comment: Arnoldo ross: 1. National Cholesterol Education Program ATP III Guideline At-A-Glance Quick Desk Reference: National Heart, Lung, and Blood [place]. National Institutes of Health. 2001: NIH Publication No. 01-3305. 2. An International Atherosclerosis Society position paper: global recommendations for the management of dyslipidemia: executive summary, Atherosclerosis. 2014: 232(2):410-413. Performed By: #### 2 4323-8, 05501-5 ####[facility] LABCLIA [id number] [place] [address] [place] Cholesterol in VLDL [Mass/Vol] 53 mg/dL High <30 [facility] Comment on above: Order Comment: Speci men Type: BLOOD SPECIMENOrdering Facility: [facility] Address: [address] [place] [address] Performed By: #### 2 4323-8, 75097-6 ####[facility] LABCLIA [id number] [place] [address] [place] Cholesterol non HDL [Mass/Vol] 150 mg/dL High <130 [facility] Comment on above: Order Comment: Maryi men Type: BLOOD SPECIMENOrdering Facility: [facility] Address: [address] [place] [address] Result Comment: <130 mg/dL, Optimal 130-159 mg/dL, Near optimal/above optimal 160-189 mg/dL, Borderline high 190-219 mg/dL, High >219 mg/dL, Very high Secondary prevention optimal non HDL Cholesterol levels are recommended to be <100 mg/dL Performed By: #### 2 4323-8, 02056-7 ####[facility]CL[facility] [id number] [place] [address] [place] Cholesterol.total/Chol esterol in HDL [Mass ratio] 6.17 {ratio} High <5.10 [facility] Comment on above: Order Comment: Maryi men Type: BLOOD SPECIMENOrdering Facility: [facility] Address: [address] [place] [address] Performed By: #### 2 4323-8, 80922-6 ####[facility] LABCLIA [id number] [place] [id number] [place] FASTING TIME 12 hrs Normal [facility] Comment on above: Order Comment: Speci men Type: BLOOD SPECIMENOrdering Facility: [facility] Address: [address] [place] [address] Performed By: #### 2 4323-8, 52824-1 ####[facility] LABCLIA [id number] [place] [address] [place] Triglyceride [Mass/Vol] 264 mg/dL High <150 [facility] Comment on above: Order Comment: Speci men Type: BLOOD SPECIMENOrdering Facility: [facility] Address: [address] [place] [address] Result Comment: <150 mg/dL, Normal 150-199 mg/dL, Borderline high 200-499 mg/dL, High >499 mg/dL, Very high Performed By: #### 2 4323-8, 41674-5 ####[facility] LABCLIA [id number] [place] [address] [place] [facility] 2000 panelon 02-01-2023 Anion gap [Moles/Vol] 7 mmol/L Low -18 [facility] Comment on above: Order Comment: Speci men Type: BLOOD SPECIMENOrdering Facility: [facility] Address: [address] Performed By: #### 2 4321-2, ####[facility] [id number] [place] [id number] [place] Calcium [Mass/Vol] 8.9 mg/dL Normal 8.5-10.2 [facility] Comment on above: Order Comment: Speci men Type: BLOOD SPECIMENOrdering Facility: [facility] Address: [address] Performed By: #### 2 4321-2, ####[facility]ATORYCLIA [id number] [place] [id number] [place] Chloride [Moles/Vol] 105 mmol/L Normal 97-105 [facility] Comment on above: Order Comment: Speci men Type: BLOOD SPECIMENOrdering Facility: [facility] Address: [address] [place] [address] Performed By: #### 2 4321-2, ####[facility]ATORYCLIA [id number] [place] [id number] [place] CO2 [Moles/Vol] 27 mmol/L Normal 22-30 [facility] Comment on above: Order Comment: Speci men Type: BLOOD SPECIMENOrdering Facility: [facility] Address: [address] [place] [address] Performed By: #### 2 2, ####[facility]ATORYCLIA [id number] [place] [address] [place] Creatinine [Mass/Vol] 1.13 mg/dL Normal 0.73-1.22 [facility] Comment on above: Order Comment: Speci men Type: BLOOD SPECIMENOrdering Facility: [facility] Address: [address] [place] [address] Performed By: #### 2 4320-08, ####[facility]ATORYCLIA [id number] [place] [address] [place] ESTIMATED GLOMERULAR FILTRATION RATE 64 mL/min/1.73m??? Normal >=60 [facility] Comment on above: Order Comment: Speci men Type: BLOOD SPECIMENOrdering Facility: [facility] Address: [address] [place] [address] Result Comment: Toya mated Glomerular Filtration Rate (eGFR) is calculated using the 2020 CKD-EPI creatinine equation. This equation utilizes serum creatinine, sex, and age as parameters. The creatinine assay has traceable calibration to isotope dilution-mass spectrometry. Refer to KDIGO guidelines for clinical interpretation. In patients with unstable renal function, e.g. those with acute kidney injury, the eGFR may not accurately reflect actual GFR. Performed By: #### 2 4321-2, ####[facility]ATORYCLIA [id number] [place] [id number] [place] Glucose [Mass/Vol] 118 mg/dL High 74-99 [facility] Comment on above: Order Comment: Speci men Type: BLOOD SPECIMENOrdering Facility: [facility] Address: [address] [place] [address] Result Comment: The [place] Diabetes Association (ADA) provides guidance for cutoff values for fasting glucose and random glucose. The ADA defines fasting as no caloric intake for at least 8 hours. Fasting plasma glucose results between 100 to 125 [...] Standards of Medical Care in Diabetes 2016, [place] Diabetes Association. Diabetes Care. 2016.39(Suppl 1). Performed By: #### 2 4320-08, ####[facility]ORY[facility] [id number] [place] [address] [place] Potassium [Moles/Vol] 3.9 mmol/L Normal 3.7-5.1 [facility] Comment on above: Order Comment: Speci men Type: BLOOD SPECIMENOrdering Facility: [facility] Address: [address] [place] [address] Performed By: #### 2 4320-08, ####[facility]ATORYCLIA [id number] [place] [id number] [place] Sodium [Moles/Vol] 139 mmol/L Normal 136-144 [facility] Comment on above: Order Comment: Speci men Type: BLOOD SPECIMENOrdering Facility: [facility] Address: [address] [place] [address] Performed By: #### 2 4320-08, ####[facility]ATORYCLIA [id number] [place] [id number] [place] Urea nitrogen [Mass/Vol] 19 mg/dL Normal 9-24 [facility] Comment on above: Order Comment: Speci men Type: BLOOD SPECIMENOrdering Facility: [facility] Address: [address] [place] [address] Performed By: #### 2 4321-2, 85009-9 ####[facility]ATORYCLIA [id number] [place] [address] [place] CBC panel Auto (Bld)on 02-01 Erythrocyte distribution width (RBC) [Ratio] 14.0 % Normal 11.5-15.0 [facility] Comment on above: Order Comment: Speci men Type: BLOOD SPECIMEN [facility] Address: [address] [place] [address] Performed By: #### 5 8410-2 #### [facility] CLIA [id number] [address] [place] [address] [place] Hematocrit (Bld) [Volume fraction] 35.8 % Low 39.0-51.0 [facility] Comment on above: Order Comment: Speci men Type: BLOOD SPECIMEN [facility] Address: [address] [place] [address] Performed By: #### 5 8410-2 #### [facility] CLIA [id number] [address] [place] [address] [place] Hemoglobin (Bld) [Mass/Vol] 11.9 g/dL Low 13.0-17.0 [facility] Comment on above: Order Comment: Speci men Type: BLOOD SPECIMEN [facility] Address: [address] [place] [address] Performed By: #### 5 8410-2 #### [facility] CLIA [id number] [address] [place] [address] [place] MCH (RBC) [Entitic mass] 31.6 pg Normal 26.0-34.0 [facility] Comment on above: Order Comment: Speci men Type: BLOOD SPECIMEN [facility] Address: [address] [place] [address] Performed By: #### 5 8410-2 #### [facility] CLIA [id number] [place] [address] [place] MCHC (RBC) [Mass/Vol] 33.2 g/dL Normal 30.5-36.0 [facility] Comment on above: Order Comment: Speci men Type: BLOOD SPECIMEN [facility] Address: [address] [place] [address] Performed By: #### 5 8410-2 #### [facility] CLIA [id number] [address] [place] [address] [place] MCV (RBC) [Entitic vol] 95.0 fL Normal 80.0-100.0 [facility] Comment on above: Order Comment: Speci men Type: BLOOD SPECIMEN [facility] Address: [address] [place] [address] Performed By: #### 5 8410-2 #### [facility] CLIA [id number] [address] [place] [address] [place] Nucleated RBC (Bld) [#/Vol] 10*3/uL Normal <0.01 [facility] Comment on above: Order Comment: Speci men Type: BLOOD SPECIMEN [facility] Address: [address] [place] [address] Performed By: #### 5 8410-2 #### [facility] CLIA [id number] [address] [place] [address] [place] Platelet mean volume (Bld) [Entitic vol] 9.2 fL Normal 9.0-12.7 [facility] Comment on above: Order Comment: Speci men Type: BLOOD SPECIMEN Ordering Facility: [facility] Address: [address] [address] Performed By: #### 5 8410-2 #### [facility] CLIA [id number] [address] [place] [address] [place] Platelets (Bld) [#/Vol] 152 10*3/uL Normal 150-400 [facility] Comment on above: Order Comment: Speci men Type: BLOOD SPECIMEN Ordering Facility: [facility] Address: [address] [address] Performed By: #### 5 8410-2 #### [facility] CLIA [id number] [address] [place] [address] [place] RBC (Bld) [#/Vol] 3.77 10*6/uL Low 4.20-6.00 [facility] Comment on above: Order Comment: Speci men Type: BLOOD SPECIMEN Ordering Facility: [facility] Address: [address] [place] [address] Performed By: #### 5 8410-2 #### [facility] [place] [id number] [address] [place] [address] [place] WBC (Bld) [#/Vol] 6.60 10*3/uL Normal 3.70-11.00 [facility] Comment on above: Order Comment: Speci men Type: BLOOD SPECIMEN Ordering Facility: [facility] Address: [address] [place] [address] Performed By: #### 5 8410-2 #### [facility] [place] [id number] [address] [place] [address] [place] Magnesium SerPl-mCncon 02-01 Magnesium [Mass/Vol] 1.5 mg/dL Low 1.7-2.3 [facility] Comment on above: Order Comment: Speci men Type: BLOOD SPECIMENOrdering Facility: [facility] Address: [address] [place] [address] Performed By: #### 2 4321-2, 52890-0 ####[facility] [id number] [place] [address] [place] ANES POSTPROC EVALon 023 ANES POSTPROC EVAL HNO ID: [id number] Author: Rylie Schulz MD Service: Critical Care Author Type: Anesthesiologist Type: Anesthesia Postprocedure Evaluation Filed: 01/31/2023 12:42 PM Note Text: POST ANESTHESIA EVALUATION NOTE : 1935 Procedure Summary Date: 01/31/23 Room / Location: OR04A / [facility] OR Anesthesia Start: 741 Anesthesia Stop: 1226 Procedure: ENDOVASCULAR REPAIR AORTA TO RENAL LEVEL,W/AORTO-AORTIC ENDOGRAFT,WITHOUT RUPTURE (Aorta) Diagnosis: Abdominal aortic aneurysm (AAA) without rupture, unspecified part (HCC) (Abdominal aortic aneurysm (AAA) without rupture, unspecified part (HCC) [I71.40]) Surgeons: Eladio Pablo MD Responsible Provider: Rylie Schulz MD Anesthesia Type: general ASA Status: 3 Anesthesia Type: general Airway Type: ETT Last Vitals Vitals Value Taken Time BP 97/49 01/31/23 1236 Temp 36.4 01/31/23 1241 Pulse 58 01/31/23 1240 Resp 14 01/31/23 1240 SpO2 99 % 01/31/23 1240 Vitals shown include unvalidated device data. Post Anesthesia Patient Status Patient Evaluation: ICU. PACU/ICU Patient Condition: stable. Anticipated Disposition: ICU planned admission. Neurological Status: aware and responsive. Pulmonary Status: breathing comfortably on supplemental oxygen Airway Control: returned to baseline unsupported. Cardiovascular Status: stable. Pain Management: clinically adequate Postoperative Hydration: acceptable. Intraoperative Events: no significant anesthesia events Post Operative Nausea/Vomiting Status: no significant post operative nausea or vomiting Recommendation: further care per PACU/ICU/floor team. Anesthesia Observations No Documentation SIGNATURE: Rylie Schulz MD PATIENT NAME: Paco Whitney DATE: January 31, 2023 TIME: 12:41 PM CSN: [id number] [facility] ANES PRE-OPon 01-31-2023 ANES PRE-OP HNO ID: [id number] Author: Rylie Schulz MD Service: Critical Care Author Type: Anesthesiologist Type: Anesthesia Preprocedure Evaluation Filed: 01/31/2023 7:24 AM Note Text: ANESTHESIOLOGY DAY OF SURGERY NOTE : 1935 Procedure Information Date/Time: 01/31/23729 Procedure: ENDOVASCULAR REPAIR AORTA TO RENAL LEVEL,W/AORTO-AORTIC ENDOGRAFT,WITHOUT RUPTURE (Aorta) - Endovascular aortic aneurysm repair with iliac branch device - Damián Pierre from [employer] will bring implant - 01/17 [employer] SUPERVISOR NEEDED Location: ORA / OR Surgeons: Eladio Pablo MD Estimated body mass index is 34.06 kg/m? as calculated from the following: Height as of 01/24/23: 167.6 cm (5' 6). Weight as of 01/24/23: 95.7 kg (211 lb). 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 Negative stress test in November 2022. Did not take ramipril this AM. Notices easy bruising on his ASA. Last dose was 7 days ago. I - PHYSICAL EVALUATION AIRWAY Patient intubated: No. Tracheostomy tube not present Mallampati: III. TM distance: >3 FB. Neck ROM: full ROM without neurological symptoms. Mouth opening: adequate. Short neck: yes. Thick neck: yes DENTAL Dental findings: poor dentition and missing tooth/teeth. II - ANESTHESIA PLAN ASA Score: 3 Anesthetic Plan: general Airway type: ETT The patient is not a current smoker. NPO Status: adequate Beta Edward Monitoring Plan Monitoring plan: standard ASA. Post Procedure Analgesic Plan Postoperative analgesic plan: multimodal analgesia and parenteral or oral opioids. Informed Consent Anesthetic risks, benefits, alternatives, personnel and consent discussed: yes. Patient / Responsible Constitution Party agrees to proceed: yes Patient / Surrogate agrees to blood products: Yes DNR status not reviewed with patient and/or family prior to surgery. Significant changes in the patient condition since the History and Physical, not otherwise documented in primary service progress note: no. Potential Anesthesia issues that may suggest increased risk of complications or contraindication to planned procedure: none. Vitals Value Taken Time BP 137/57 01/31/23632 Pulse 71 01/31/23632 Resp 16 01/31/23632 Temp 36.9 ?C (98.4 ?F) 01/31/23632 SpO2 94 % 01/31/23632 No current facility-administered medications on file as of 01/31/2023. Outpatient Medications as of 01/31/2023 Medication Sig - ramipril (ALTACE) 10 mg capsule Take 1 capsule by mouth once daily. - tamsulosin (FLOMAX) 0.4 mg TAKE ONE CAPSULE BY MOUTH ONCE DAILY AT BEDTIME - pantoprazole DR (PROTONIX) 40 mg tablet Take 1 tablet by mouth daily before breakfast. Take on empty stomach, 1/2 hr before meal. - budesonide-formoterol (SYMBICORT) 160-4.5 mcg/actuation inhaler Inhale 2 Puffs as instructed twice daily. - Fenofibrate (LOFIBRA) 160 mg tablet Take 1 tablet by mouth once daily. - aspirin 81 mg cap Take 1 capsule by mouth once daily. - albuterol HFA (VENTOLIN HFA) 90 mcg/actuation inhaler Inhale 2 Puffs as instructed every 4 hours as needed for Wheezing/Shortness of Breath. - cholecalciferol (VITAMIN D3) 1,000 unit tab tablet Cholecalciferol (Vit D3) Active 3000 UNIT TWICE A DAY November 23, 2014 8:06am - guaiFENesin (MUCINEX) 600 mg 12 hr tablet Take 2 tablets by mouth twice daily. (Patient taking differently: Take 1,200 mg by mouth twice daily. As needed) - meclizine (ANTIVERT) 25 mg tab Take 1 tablet by mouth every 6 hours as needed. FOR DIZZINESS - clotrimazole-betamethasone (LOTRISONE) cream Apply 1 application to affected area twice daily. (Patient taking differently: Apply 1 application to affected area twice daily. As needed) - lmylwbni-iartzvtet-nasyofnvt isone (CORTISPORIN) 3.5-10,000-1 mg/mL-unit/mL-% otic suspension Use 4 Drops in the ears four times daily. x 1 week I have interviewed and examined the patient. I have reviewed the medical record and/or the pre-anesthesia evaluation, pertinent labs, and test results. This contains updated information obtained within 48 hours of Surgery/Procedure. SIGNATURE: Rylie Schulz MD PATIENT NAME: Paco Whitney DATE: January 31, 2023 TIME: 7:18 AM CSN: [id number] [facility] BRIEF OP NOTon 01-31-2023 BRIEF OP NOT HNO ID: [id number] Author: Boris Ramey MD Service: Vascular Surgery Author Type: Resident Type: Brief Op Note Filed: 01/31/2023 12:11 PM Note Text: BRIEF OPERATIVE / PROCEDURE NOTE LOG ID: [id number] Surgery/Procedure Date: 01/31/2023 Incision/Procedure Start Time: 8:58 AM Incision Close/Procedure End Time: 11:51 AM Surgeon(s)/Proceduralist(s) and Manager Mining(s): Surgeon(s) and Role: * Eladio Pablo MD - Primary * Boris Ramey MD - Resident - Assisting No Additional Staff Procedure(s): ENDOVASCULAR REPAIR AORTA TO RENAL LEVEL,W/AORTO-AORTIC ENDOGRAFT,WITHOUT RUPTURE: 14792 (CPT?) KRISTOPHER AAA: Endo AAA Hypogastric Intentionally Covered: No Hypogastric Unintentionally Covered: Right - Patent and Left - Patent Access: Percutaneous Contrast Volume: 80 cc Endoleak Type: Lumbar branch (II) Unfit for Open Repair: Yes, due to frailty Devices Used: [place] Excluder and Iliac branch device Fluoro Time: 32.2 min, 2196 mGy Anesthesia: General ASA Class: Findings: LEFT Iliac branch device [id number] mainbody and [id number] hypogastric limb. 32x14.5x14cm [place] Excluder Main body EVAR component, bridged IBD and main body with a 27mm Gould limb and extended the R iliac limb with a [id number] Gould limb into the R MARCIN aneurysm. R hypogastric artery aneurysm left untreated. Type II endoleak on completion Pulses: LLE: Palpable +2 PT, biphasic DP RLE: Palpable +2 DP, biphasic PT Medications: No current facility-administered medications on file prior to encounter. Current Outpatient Medications on File Prior to Encounter Medication Sig ramipril (ALTACE) 10 mg capsule Take 1 capsule by mouth once daily. tamsulosin (FLOMAX) 0.4 mg TAKE ONE CAPSULE BY MOUTH ONCE DAILY AT BEDTIME pantoprazole DR (PROTONIX) 40 mg tablet Take 1 tablet by mouth daily before breakfast. Take on empty stomach, 1/2 hr before meal. budesonide-formoterol (SYMBICORT) 160-4.5 mcg/actuation inhaler Inhale 2 Puffs as instructed twice daily. Fenofibrate (LOFIBRA) 160 mg tablet Take 1 tablet by mouth once daily. aspirin 81 mg cap Take 1 capsule by mouth once daily. albuterol HFA (VENTOLIN HFA) 90 mcg/actuation inhaler Inhale 2 Puffs as instructed every 4 hours as needed for Wheezing/Shortness of Breath. cholecalciferol (VITAMIN D3) 1,000 unit tab tablet Cholecalciferol (Vit D3) Active 3000 UNIT TWICE A DAY November 23, 2014 8:06am guaiFENesin (MUCINEX) 600 mg 12 hr tablet Take 2 tablets by mouth twice daily. (Patient taking differently: Take 1,200 mg by mouth twice daily. As needed) meclizine (ANTIVERT) 25 mg tab Take 1 tablet by mouth every 6 hours as needed. FOR DIZZINESS clotrimazole-betamethasone (LOTRISONE) cream Apply 1 application to affected area twice daily. (Patient taking differently: Apply 1 application to affected area twice daily. As needed) oqgzwwle-agevvtrze-meusamejo isone (CORTISPORIN) 3.5-10,000-1 mg/mL-unit/mL-% otic suspension Use 4 Drops in the ears four times daily. x 1 week Post-operative Plan of Care: ICU post op for q1h NV checks Regular diet Zuñiga pulled in OR, bladder scan as needed D/c a-line 0600 tomorrow morning Will address R hypogastric aneurysm at a later date Estimated Blood Loss: 50 ml Specimens: * No specimens in log * Implants: * No implants in log * Complications: None Pre-Op/Pre-Procedure Diagnosis: Asymptomatic, non-ruptured infrarenal AAA, bilateral common iliac aneurysms, and right hypogastric aneurysm Post-Op/Post-Procedure Diagnosis: Same as Preop SIGNATURE: Boris Ramey MD PATIENT NAME: Paco Whitney DATE: January 31, 2023 TIME: 12:04 PM PAGER/CONTACT #: [phone] [facility] 01-31-2023 [facility] HNO ID: [id number] Author: Ibeth Paredes APRN.SARAI Service: Vascular Surgery Author Type: Nurse Practitioner Type: Discharge Summary Filed: 02/01/2023 10:56 AM Note Text: Attestation signed by Eladio Pablo MD at 02/01/2023 1:13 PM agree Department of Vascular Surgery Discharge Summary (Template ID [id number]) PATIENT NAME: Paco Whitney ADMISSION DATE: 01/31/2023 DISCHARGE DATE: 02/01/2023 Attending Physician: Eladio Pablo MD Code Status: Not on file Primary Service: Vascular surgery Admission Diagnosis: Infrarenal Abdominal Aortic Aneurysm without rupture I71.43 Discharge Diagnosis: Infrarenal Abdominal Aortic Aneurysm without rupture I71.43 Reason for Hospitalization: Paco Whitney is a 87 year old male with past medical/surgical history of HTN, HLD, PAD s/p left TKA (2002), prior TIA, asthma/COPD, former smoker (quit 1990), GERD, BPH, and AAA who presents with 5.5 cm asymptomatic AAA Operations during Hospitalization: 01/31/2023 EVAR with Iliac branch device Hospital Course * How was the Reason for Hospitalization Addressed: Underwent above stated procedure, tolerated procedure well. Immediately post op recovered in the ICU. Vital signs significant for hypotension resolved with IVF. Post op pain controlled with multimodal pain regimen. Replete electrolytes PRN. Nausea resolved with Zofran. Progressed appropriately. Voided without difficulty. POD #1 discharge home in stable condition. * What were the Active Issues: Post-op Pain: controlled with scheduled Tylenol, Oxy PRN, Fentanyl breakthrough, home gabapentin Hypomagnesemia: replete PRN Nausea- IV PRN Zofran * Hospital Course Complicated by: Uncomplicated * Extended Hospital Stay Due to: Expected length of stay * Specific Medication Changes: temp hold Ramipril resumed by discharge * ID/Microbiology: Lauren-op Ancef * Pain: Jeffery Tylenol, Oxy PRN, Fentanyl breakthrough, home Gabapentin * Surgical Incisions/Wounds: Mario groin incision * Pulses: LLE palpable PT, biphasic DP RLE palpable DP, biphasic PT * PT/OT: Home with self care * Patient Condition at Discharge: Stable * Disposition: Home with Self Care Physical Exam: GENERAL: No acute distress NEURO: Alert and oriented with no gross focal deficits CARDIAC: Regular rate and rhythm LUNGS: Non labored breathing on 2L ABDOMEN: Soft EXTREMITIES: Warm and well perfused - Pulses/Signals: LLE palpable PT, biphasic DP RLE palpable DP, biphasic PT WOUNDS: Bilateral catheter entry sites without bleeding or swelling Problem List: Patient Active Hospital Problem List: Infrarenal abdominal aortic aneurysm (AAA) without rupture ([facility]) (01/31/2023) COPD (chronic obstructive pulmonary disease) ([facility]) () Essential hypertension, benign () Hyperlipidemia () Vitamin D deficiency (11/03/2009) Bilateral carotid artery stenosis (01/28/2011) BPH (benign prostatic hyperplasia) (01/01/2014) Nausea (02/01/2023) Hypomagnesemia (02/01/2023) Consults: None Procedures Performed and Major Radiology: N/A Information Provided to the Patient: Patient given copy of After Visit Summary which included activity instructions, diet instructions, wound care instructions, medication instructions and follow up appointment. ALLERGIES Allergen Reactions Baycolother] [Other] Other: See Comments Rhabdomyolysis. Demerol [Meperidine* Mental Status Change Gave too high of dose Contrast Dye [Iodin* Intolerance pt needs to be oral hydrated after injection,..patient STATES HE IS NOT ALLERGIC TO IV DYE.. Lopid [Gemfibrozil] Other: See Comments Myalgia. Discharge Medications: Medication List START taking these medications acetaminophen 500 mg tablet Commonly known as: TYLENOL Take 2 tablets by mouth every 6 hours. oxyCODONE IR 5 mg immediate release tablet Commonly known as: ROXICODONE Take 1 tablet by mouth every 6 hours as needed for pain for up to 3 days. CONTINUE taking these medications albuterol HFA 90 mcg/actuation inhaler Commonly known as: VENTOLIN HFA Inhale 2 Puffs as instructed every 4 hours as needed for Wheezing/Shortness of Breath. aspirin 81 mg Cap Take 1 capsule by mouth once daily. budesonide-formoterol 160-4.5 mcg/actuation inhaler Commonly known as: SYMBICORT Inhale 2 Puffs as instructed twice daily. cholecalciferol 1,000 unit Tab tablet Commonly known as: VITAMIN D3 clotrimazole-betamethasone cream Commonly known as: LOTRISONE Apply 1 application to affected area twice daily. As needed Fenofibrate 160 mg tablet Commonly known as: LOFIBRA Take 1 tablet by mouth once daily. gabapentin 300 mg capsule Commonly known as: NEURONTIN Take 1 capsule by mouth three times daily for 180 days. guaiFENesin 600 mg 12 hr tablet Commonly known as: M (more content not included)... Normal [facility] CONFIRM BLOOD TYPEon 023 ABO O [facility] Comment on above: Order Comment: Speci men Type: BLOOD SPECIMENOrdering Facility: [facility] Address: [address] [address] Performed By: #### C ONABO ####[facility] [id number] [address] Rh Nom (Bld) Negative [facility] Comment on above: Order Comment: Speci men Type: BLOOD SPECIMENOrdering Facility: [facility] Address: [address] [address] Performed By: #### C ONABO ####[facility] [id number] [address] HISTORY PHYSICALon HISTORY PHYSICAL HNO ID: [id number] Author: Reji Zarco MD Service: Critical Care Author Type: Resident Type: HANDP Filed: 01/31/2023 12:52 PM Note Text: Attestation signed by Pallavi Cazares MD at 01/31/2023 3:58 PM [facility] STAFF PHYSICIAN SUPERVISING RESIDENT I have reviewed the progress note obtained and documented by the resident. I have discussed the case and the plan and management of the patient's care with the resident and the bedside nurse. The following comments revise or confirm relevant bha components of the note: 87 year old s/p EVAR is in ICU for vascular check. Currently adequate blood pressure without vasopressor support. Adequate oxygenation on supplemental oxygen. Will continue to follow along. Pallavi Cazares MD January 31, 2023 3:55 PM SICU HANDP NOTE SERVICE DATE: 01/31/2023 SERVICE TIME: 12:51 PM Subjective HPI: Paco Whitney is a 87 year old male with past medical/surgical history of HTN, HLD, PAD s/p left TKA (2002), prior TIA, asthma/COPD, former smoker (quit 1990), GERD, BPH, and AAA who presents to [facility] for AAA repair. The patient has undergone serial monitoring by Vascular Surgery for known AAA. Although they have remained asymptomatic, the abdominal aortic aneurysm had increased in size to 5.5cm with 3cm aneurysms in the L MARCIN and R IIA. Patient is now s/p EVAR with PERLA. Type II endoleak on completion. No intraoperative complications. 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 Arrived extubated and not requiring any pressor support. Operative Course: Airway: Extubated EBL: 50cc Blood: None Intake: 2800cc UOP: 340cc PAST MEDICAL HISTORY Diagnosis Date Chronic airway obstruction, not elsewhere classified Diverticulitis 12/16/2014 Diverticulosis of colon with hemorrhage Essential hypertension, benign GERD (gastroesophageal reflux disease) History of eye surgery 03/29/2011 Right eye Other and unspecified hyperlipidemia Rectal bleeding 12/16/2014 Retinal detachment with retinal defect, unspecified RIGHT EYE, WITH LENSE Rhabdomyolysis 07/18/2003 had as a result of Baycol Unspecified asthma(493.90) Unspecified cause of encephalitis, myelitis, 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 Romeo RPR RETINAL DTCHMNT DRG SUBRETINAL FLUID PC 2003 Laser repair retinal detach, right eye TONSILLECTOMY PRIMARY/SECONDARY Tonsillectomy VASECTOMY UNI/BI SPX W/POSTOP SEMEN EXAMS 1964 FAMILY HISTORY Problem Relation Age of Onset Hypertension Mother other (Parkinsons disease) Mother Heart Father Heart Brother Heart surgery Cancer Brother of liver. Diabetes Brother Heart disease Son No Family History No Family History No COPD, lung cancer. Social History Tobacco Use Smoking status: Former Packs/day: 2.00 Years: 32.00 Total pack years: 64.00 Types: Cigarettes Start date: 1959 Quit date: 10/30/1990 Years since quittin.2 Smokeless tobacco: Never Tobacco comments: Multiple 4-5 year quits during smoking career. Vaping Use Vaping Use: Never used Substance Use Topics Alcohol use: No Drug use: No PRIOR TO ADMISSION MEDICATIONS gabapentin (NEURONTIN) 300 mg capsule, Take 1 capsule by mouth three times daily for 180 days., Disp: 270 capsule, Rfl: 1, 01/31/2023 ramipril (ALTACE) 10 mg capsule, Take 1 capsule by mouth once daily., Disp: 90 capsule, Rfl: 3, Past Week tamsulosin (FLOMAX) 0.4 mg, TAKE ONE CAPSULE BY MOUTH ONCE DAILY AT BEDTIME, Disp: 90 capsule, Rfl: 3, 01/31/[address] (PROTONIX) 40 mg tablet, Take 1 tablet by mouth daily before breakfast. Take on empty stomach, 1/2 hr before meal., Disp: 90 tablet, Rfl: 3, 01/31/2023 budesonide-formoterol (SYMBICORT) 160-4.5 mcg/actuation inhaler, Inhale 2 Puffs as instructed twice daily., Disp: 1 Each, Rfl: 5, 01/31/2023 Fenofibrate (LOFIBRA) 160 mg tablet, Take 1 tablet by mouth once daily., Disp: 30 tablet, Rfl: , 01/31/2023 aspirin 81 mg cap, Take 1 capsule by mouth once daily., Disp: , Rfl: , Past Week albuterol HFA (VENTOLIN HFA) 90 mcg/actuation inhaler, Inhale 2 Puffs as instructed every 4 hours as needed for Wheezing/Shortness of Breath., Disp: 18 g, Rfl: , 01/31/2023 cholecalciferol (VITAMIN D3) 1,000 unit tab tablet, Cholecalciferol (Vit D3 (more content not included)... [facility] NURSING PROGon 01-31-2023 NURSING PROG HNO ID: [id number] Author: Pamela Sparks RN Service: Nursing Author Type: Registered Nurse Type: Nursing Progress Note Filed: 01/31/2023 6:06 AM Note Text: PATIENT EDUCATION TOPIC: PROCEDURE / SURGERY: Pre-op Teaching: Surgical Safety Principles READINESS TO LEARN COGNITIVE ABILITY: Alert and oriented MOTIVATION TO LEARN: Interested FAMILY SUPPORT: Unable to assess - Family not present INSTRUCTION PROVIDED TO: Patient PATIENT LEARNS BEST BY: Individual Instruction FACTORS AFFECTING LEARNING: None PHYSICAL LIMITATIONS AFFECTING LEARNING: None LEARNING RESPONSE DIAGNOSIS: ADULT: Well Adult PATIENT/FAMILY RESPONSE: Information received as demonstrated by interest and questions METHOD OF INSTRUCTION: Individual instruction FOLLOW-UP PLAN: Complete - No need for follow-up INSTRUCTIONAL AIDS USED: NA SUPPLEMENTAL MATERIAL PROVIDED TO PATIENT: None REFERRAL (RECOMMENDATION): None Electronically Signed By: Pmaela Sparks [facility] OPERATIVE NOon 01-31-2023 OPERATIVE NO HNO ID: [id number] Author: Eladio Pablo MD Service: Vascular Surgery Author Type: Physician Type: Operative Report Filed: 01/31/2023 9:58 PM Note Text: OPERATIVE/PROCEDURE REPORT LOG ID: [id number] Surgery/Procedure Date: 01/31/2023 Incision/Procedure Start Time:8:58 AM Incision Close/Procedure End Time: 11:51 AM Surgeon(s)/Proceduralist(s) and Manager Mining(s): Surgeon(s) and Role: * Eladio Pablo MD - Primary * Boris Ramey MD - Resident - Assisting Procedure(s): -Percutaneous common femoral artery access and closure for large bore arterial sheath during endograft aortic repair -Endovascular abdominal aortic aneurysm repair with aortobi-iliac device -Iliac branch endoprosthesis with internal iliac artery stent graft Anesthesia: General Operative Indications: 87 year old male with an enlarging 5.5 cm infrarenal abdominal aortic aneurysm and 3cm left common iliac artery aneurysm, presents for endovascular repair. Procedure Details: A huddle was performed with the surgery, anesthesia, and nursing teams to confirm patient name, medical record number, date of , allergies, and procedure. Patient was taken to the operating room and laid supine on the operating room table. Anesthesia was induced by the anesthesiologist and appropriate monitoring lines were placed. The abdomen and bilateral groins were prepped and draped in the usual sterile fashion. Bilateral common femoral artery were accessed with a micropuncture systems under ultrasound guidance. Radiographic confirmation of access site was obtained. A 6F sheath was placed and then the groins were closed with a preclose technique using two offset 6F Proglide devices. The puncture sites were then upsized to an 8F sheath. Heparin was administered and ACTs were evaluated. Additional heparin was administered as needed to achieve an adequate ACT and repeated every 30 minutes. A marking pigtail catheter was placed via the right side. An aortogram was obtained to determine the anatomy, location of the renal arteries, location of the iliac arteries, and the length required for coverage. The right side was selected for ipsilateral main body device placement and the left side for the PERLA. Stiff Lunderquist guide wires were placed into the descending thoracic aorta and marked on the table to avoid wire excursion. A 12F Dryseal sheath was placed through the right common femoral artery and a 16F Dryseal sheath placed through the left common femoral artery. A stiff glide wire was placed up the right and snared out of the left groin access. The iliac branch endoprosthesis was then inserted and deployed via the left side taking care to avoid or cure wire wrap. The left internal iliac artery was selected and a 1 cm tipped Amplatz wire was placed. A 14x7 [place] hypogastric limb was used to stent the internal iliac artery into the hypogastric branch of the PERLA. The stent was angioplastied with a 12x2 balloon. An 18F sheath was then placed in exchange for the 12F sheath via the right groin. The main body device was placed via the right side and positioned near the renal arteries. Aortography was performed in orthogonal views and the main body was deployed until the contralateral gate was exposed. The contralateral gate was cannulated with an angled glidewire and glide catheter and true lumen postioning was confirmed by catheter rotation at the aortic neck. The marking catheter was placed and a pelvic angiogram performed through the sheath to determine the appropriate length. A bridge graft 27x10 [place] Excluder was placed and deployed. The marking catheter was then placed up the ipsilateral side and a pelvic angiogram performed through the sheath to determine the location of the hypogastric artery and to determine the appropriate limb length extension. A 27 x10 bellbottom [place] extension was placed as the ipsilateral iliac extension in standard fashion. A CODA balloon was inflated in the proximal and distal landing zones as well as overlap zones. Kissing angioplasty with 12x4 balloons at the bifurcation was performed. Completion angiogram with iliac runoff showed good flow through the graft with appropriate location of the proximal and distal seal zones. There was delayed endoleak identified near the neck suspected to be type II endoleak. Bilateral groins were closed using the previously placed pre-closure sutures with a good result. Heparin was reversed. Pulse exam remained unchanged from baseline. The skin incisions were closed with 4-0 Monocryl sutures. The skin was dressed with Sureclose. The patient was taken to the ICU in stable condition. Implantable Devices: Main body [place] Excluder Conformable [id number] Ipsilateral extension [place] Excluder 27x10 gould bottom Iliac branch endoprosthesis Baltimore Excluder [id number] Hypogastric branch [place] Excluder 14 x 7 Bridge graft [place] Excluder 27x10 Pre-Op/Pre-Procedure Diagnosi (more content not included)... Normal [facility] TYPE AND SCREEN,30 DAYon ABO O [facility] HIstorical Ab Scr Status Negative [facility] Rh Nom (Bld) Negative [facility] NM CARDIAC PERF STRESS/PHARM on 11-29-2022 NM CARDIAC PERF STRESS/PHARM * * *Final Report* * * DATE OF EXAM: Nov 29 2022 11:25AM DIONNA 0006 - NM CARDIAC PERF STRESS/PHARM / PROCEDURE REASON: Z13.6-Encounter for screening for cardiovascular disorders * * * * Physician Interpretation * * * * PATIENT: Name: MR. PACO WHITNEY Age: 87 years Gender: M CONCLUSIONS: 1. SPECT Perfusion Study: Normal. 2. There is no scintigraphic evidence for inducible ischemia. 3. No evidence of scarred myocardium. 4. Left ventricle is normal in size. The left ventricle systolic function is normal. 5. Right ventricle is normal in size. The right ventricle systolic function is normal. 6. This is a low risk scan. Gated Stress IR:3D LVEF % 70 Prior Study Comparison No prior nuclear cardiology exam available for comparison. Nuclear Med Report:1-Day Gated SPECT Myocardial Perfusion with Regadenoson Stress: Myocardial perfusion imaging was performed at rest 30 minutes following the IV injection of the radiotracer. The patient received 0.4 mg of regadenoson, via rapid IV push, immediately followed by radiotracer IV. Gated post stress tomographic imaging was performed 30 to 60 minutes later. See administered radiotracer and doses below. [facility] Date of service: 11/29/2022 9:55:40 AM Ordering Physician: ELADIO Pablo. Requesting Physician: Indication: CAD screening, high CAD risk, not treadmill candidate Interpreting physician: Niles Ramos MD Height: 167.64 cm BSA: 2.12 m? Weight: 96.16 kg BMI: 34.2 kg/m? Exam Type: Rest Stress Radiopharm: Tc-99m Tetrofosmin Tc-99m Tetrofosmin Dosage(mCi): 12.4 33.7 Atten Correction: not performed not performed Stress Agent: Regadenoson 0.4mg Supply provided from [facility] Resting Blood Press: 115/61 mmHg Image Quality The overall study imaging quality was deemed to be good. FINDINGS: Left Ventricle Wall Motion: Stress IR:3D - All segments are normal. Rest IR:3D - Gated Stress IR:3D - Reversibility - Stress IR:3D Stress IR:3D Gated Stress IR:3D LVEF: 70 % ED Volume: 135 ml ES Volume: 40 ml TID: 1.01 Perfusion Findings Stress IR:3D - Summed Score=0 All segments demonstrate normal perfusion. Rest IR:3D - Summed Score=0 All segments demonstrate normal perfusion. Stress IR:3D Rest IR:3D Summed Score=0 Summed Score=0 LEFT VENTRICLE The left ventricle is normal in size. Left ventricular systolic function is normal. Right Ventricle The right ventricle is normal in size. Right ventricle systolic function is normal. Stress Test Findings: There is no scintigraphic evidence for inducible ischemia. There is no evidence of scarring. The left ventricular cavity size is unchanged with stress. * * * Final * * * Stress ECG Report: [facility] Date of service: 11/29/2022 9:55:40 AM Ordering physician: ELADIO PABLO medicare insurance specialist: Tosha Fernando Manager Mining: Lucina Mccarthy Interpreting physician: Kris Jones MD Patient name: MR. PACO WHITNEY Age: 87 years Gender: M Height: 167.64 cm BSA: 2.12 m? Weight: 96.16 kg BMI: 34.2 kg/m? Indication: Encounter for screening for cardiovascular disorders Stress ECG Conclusion: Conclusion: Normal Stress ECG Summary: The patient's resting heart rate was 75 bpm and blood pressure was 115/61 mmHg. The test was terminated due to end of protocol. No symptoms provoked during stress. The maximum heart rate was 73 bpm, which is 54% of the predicted heart rate for age. Peak blood pressure was 112/58 mmHg. The double product achieved was 8176. Medications: Last Used ALTACE SYMBICORT PROTONIX ASPIRIN ALBUTEROL INHALER NEURONTIN ANTIVERT Resting ECG: Normal Sinus Rhythm Symptoms at rest: No symptoms Pharamcologic Protocol: Regadenoson Stress Exercise Table: +-----+--+---+---+ Stage HR SYS TIM +-----+--+---+---+ 1 73 106 53 +-----+--+---+---+ 2 71 96 55 +-----+--+---+---+ 3 67 106 53 +-----+--+---+---+ 4 71 112 58 +-----+--+---+---+ 5 69 110 60 +-----+--+---+---+ 6 66 113 61 +-----+--+---+---+ +-----+--+---+---+ HR JALEN TIM +-----+--+---+---+ Final 73 112 58 +-----+--+---+---+ Stress Observations: Resting HR: 75 bpm Peak HR: 73 bpm (54% MPHR) Resting BP: 115 / 61 mmHg Peak BP: 112 / 58 mmHg Rate Pressure Product (RPP): 8176 Stress Exercise Observations: Reason for test termination: end of protocol, Symptoms during test: No symptoms provoked during stress, ST segment and T wave changes: No ST changes and Arrhythmias: No arrhythmias * * * Final * * * Stress Super (more content not included)... [facility] Ortiz 11-26-2022 CNPN Telephone (CDLBME) PACO WHITNEY ([id number]) 1935 M Date Time Provider Department 11/26/22 TOSHA FERNANDO During your visit today, we recorded the following information about you: Tosha Fernando RN 11/26/2022 2:36 PM Signed Spoke with patient regarding reminder for stress test on Tuesday and given instructions Allergies As of Date: 11/26/2022 Noted Allergy Reaction baycolOther] [Other] 09/08/2006 14 - Other: See Comments Comments: Rhabdomyolysis. DEMEROL (MEPERIDINE (PF)) 11/18/2016 1 - Mental Status Change Comments: Gave too high of dose CONTRAST DYE (IODINE) 06/28/2019 5 - Intolerance Comments: pt needs to be oral hydrated after injection,..patient STATES HE IS NOT ALLERGIC TO IV DYE.. LOPID (GEMFIBROZIL) 07/14/2006 14 - Other: See Comments Comments: Myalgia. Date Reviewed: 11/11/2022 Reviewed by: Chalino Valdez DO - Fully Assessed Reason for Visit: Reminder Call [[id number]] Prescriptions as of 11/26/2022 - ramipril (ALTACE) 10 mg capsule Take 1 capsule by mouth once daily. - cholecalciferol (VITAMIN D3) 1,000 unit tab tablet Cholecalciferol (Vit D3) Active 3000 UNIT TWICE A DAY November 23, 2014 8:06am - budesonide-formoterol (SYMBICORT) 160-4.5 mcg/actuation inhaler Budesonide/Formoterol 160/4.5 Active 2 PUFF TWICE A DAY June 28, 2018 4:04pm - tamsulosin (FLOMAX) 0.4 mg TAKE ONE CAPSULE BY MOUTH ONCE DAILY AT BEDTIME - pantoprazole DR (PROTONIX) 40 mg tablet Take 1 tablet by mouth daily before breakfast. Take on empty stomach, 1/2 hr before meal. - budesonide-formoterol (SYMBICORT) 160-4.5 mcg/actuation inhaler Inhale 2 Puffs as instructed twice daily. - guaiFENesin (MUCINEX) 600 mg 12 hr tablet Take 2 tablets by mouth twice daily. - SYMBICORT 80-4.5 mcg/actuation inhaler Inhale 2 Puffs as instructed twice daily. - gabapentin (NEURONTIN) 300 mg capsule Take 1 capsule by mouth three times daily for 180 days. - Fenofibrate (LOFIBRA) 160 mg tablet Take 1 tablet by mouth once daily. - meclizine (ANTIVERT) 25 mg tab Take 1 tablet by mouth every 6 hours as needed. FOR DIZZINESS - clotrimazole-betamethasone (LOTRISONE) cream Apply 1 application to affected area twice daily. - aspirin 81 mg cap Take 1 capsule by mouth once daily. - dlcxitze-eusnpqauq-nzaxhmdlj isone (CORTISPORIN) 3.5-10,000-1 mg/mL-unit/mL-% otic suspension Use 4 Drops in the ears four times daily. x 1 week - albuterol HFA (VENTOLIN HFA) 90 mcg/actuation inhaler Inhale 2 Puffs as instructed every 4 hours as needed for Wheezing/Shortness of Breath. 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]01/01/2014 AAA (abdominal aortic aneurysm) (HCC) [I71.40] 07/09/2014 11/25/2020 Enlarged prostate [N40.0] 10/29/2014 Lower urinary tract symptoms (LUTS) [R39.9] 10/29/2014 History of kidney stones [Z87.442] 10/29/2014 Complex renal cyst [N28.1] 10/29/2014 Diverticulosis [K57.90] 12/24/2014 Right renal mass [N28.89] 10/30/2015 Renal cyst [N28.1] 10/30/2015 Benign non-nodular prostatic hyperplasia with l*10/30/2015 Abdominal aortic aneurysm without rupture (HCC)*10/30/2015 Lung mass [R91.8] 10/30/2015 History of GI diverticular bleed [Z87.19] 04/09/2019 Class: Acute 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 Stable appearing 3 cm right lower lobe mass. 2. Underlying pulmonary fibrosis. Reefer Engineer: PENNY Transcribe Date/Time: Jun 08 2022 3:23P Dictated by : ZAC WASSERMAN MD This examination was interpreted and the report reviewed and electronically signed by: ZAC WASSERMAN MD on Jun 08 2022 3:27PM [facility] DIVISION OF RADIOLOGY * * *Final Report* * * DATE OF EXAM: Jun 08 2022 3:17PM WOX [id number] - XR CHEST 2V FRONTAL/LAT / PROCEDURE REASON: Acute cough * * * * Physician Interpretation * * * * EXAMINATION: CHEST RADIOGRAPH (2 VIEW FRONTAL & LATERAL) CLINICAL HISTORY: Acute cough MQ: XC2_6 EXAM DATE/TIME: 06/08/2022 3:17 PM COMPARISON: Correlation made to CT chest dated June 26, 2018 RESULT: Lines, tubes, and devices: None. Lungs and pleura: There is a stable appearing 3 cm mass in the medial right lower lobe. There is prominence of the interstitial markings in a peripheral and basilar predominance most compatible with underlying pulmonary fibrosis. No pleural effusion or pneumothorax. Cardiomediastinal silhouette: Heart is normal in size. Atherosclerotic calcification of the tortuous aorta. Bones and soft tissues: Degenerative changes chronic mild anterior wedging of a lower thoracic versus upper lumbar vertebral body. DIVISION OF RADIOLOGY Provider, [facility] - 06/08/2022 * * *Final Report* * * DATE OF EXAM: Jun 08 2022 3:17PM WOX [id number] - XR CHEST 2V FRONTAL/LAT / PROCEDURE REASON: Acute cough * * * * Physician Interpretation * * * * EXAMINATION: CHEST RADIOGRAPH (2 VIEW FRONTAL & LATERAL) CLINICAL HISTORY: Acute cough MQ: XC2_6 EXAM DATE/TIME: 06/08/2022 3:17 PM COMPARISON: Correlation made to CT chest dated June 26, 2018 RESULT: Lines, tubes, and devices: None. Lungs and pleura: There is a stable appearing 3 cm mass in the medial right lower lobe. There is prominence of the interstitial markings in a peripheral and basilar predominance most compatible with underlying pulmonary fibrosis. No pleural effusion or pneumothorax. Cardiomediastinal silhouette: Heart is normal in size. Atherosclerotic calcification of the tortuous aorta. Bones and soft tissues: Degenerative changes chronic mild anterior wedging of a lower thoracic versus upper lumbar vertebral body. IMPRESSION IMPRESSION: 1. Stable appearing 3 cm right lower lobe mass. 2. Underlying pulmonary fibrosis. Reefer Engineer: PSCB Transcribe Date/Time: Jun 08 2022 3:23P Dictated by : ZAC WASSERMAN MD This examination was interpreted and the report reviewed and electronically signed by: ZAC WASSERMAN MD on Jun 08 2022 3:27PM EST [facility] Radiology Study observation (narrative) [facility] XR Chest PA and LateralOrder ed By: [facility] Provider on 06-08-2022 [facility] CNOVon 12-06-2018 CNOV Office Visit (AKURFL ) PACO WHITNEY ([id number]) 1935 M Date Time Provider Department 12/06/18 2:00 PM CHALINO VALDEZ During your visit today, we recorded the following information about you: Blood pressure Weight Height 122/66 97.5 kg 1.676 m Mecca Lombardo CMA 12/06/2018 2:25 PM Signed No urine sample given. Mecca Valdez DO, MBA 12/07/2018 10:55 AM Signed ?? [facility] [place] [facility] LOCATION: [address] [place] [address] ESTABLISHED PATIENT PATIENT INFO: Paco Whitney 83 year old Chief Complaint: Renal Mass HPI F/u for renal mass surveillance. Denies gross hematuria or difficulty with urination. Has AAA that has increased in size from 4.7 to 5.2 cm. Long discussion on continued surveillance vs surgery (radical vs partial) vs cryo. Patient not interested in surgery and would prefer to continue surveillance. 1-Duration: years 2-Location: kidney 3-Severity: N/A 4-Quality: Not applicable 5-Context: surveillance 6-Timing: N/A 7-Modifying factors: No treatment prior to referral 8-Associated signs AND symptoms: no additional symptoms PATHOLOGY: N/A LAB: WBC (k/uL) Date Value 11/15/2018 5.50 RBC (m/uL) Date Value 11/15/2018 5.30 Hemoglobin (g/dL) Date Value 11/15/2018 16.6 Hematocrit (%) Date Value 11/15/2018 50.5 MCV (fL) Date Value 11/15/2018 95.3 MCH (pG) Date Value 11/15/2018 31.3 MCHC (g/dL) Date Value 11/15/2018 32.9 RDW-CV (%) Date Value 11/15/2018 13.7 Platelet Count (k/uL) Date Value 11/15/2018 176 MPV (fL) Date Value 11/15/2018 10.2 Neut% (%) Date Value 12/20/2014 51.1 Lymph% (%) Date Value 12/20/2014 31.4 Pitt% (%) Date Value 12/20/2014 13.2 Eosin% (%) Date Value 12/20/2014 3.8 Baso% (%) Date Value 12/20/2014 0.5 Abs Neut (ANC) (k/uL) Date Value 12/20/2014 2.97 Abs Pitt (k/uL) Date Value 12/20/2014 0.77 Abs Eosin (k/uL) Date Value 12/20/2014 0.22 Abs Baso (k/uL) Date Value 12/20/2014 0.03 Creatinine Date Value Ref Range Status 11/15/2018 1.20 0.73 - 1.22 mg/dL Final 06/26/2018 1.17 0.73 - 1.22 mg/dL Final 02/03/2018 1.22 0.73 - 1.22 mg/dL Final 11/22/2017 1.26 (H) 0.73 - 1.22 mg/dL Final PSA (ng/mL) Date Value 10/29/2014 0.55 05/23/2012 0.63 pH, Urine Date Value Ref Range Status 02/26/2009 5.0 4.5 - 8.0 Specific Fouke, Ur Date Value Ref Range Status 02/26/2009 1.015 1.005 - 1.030 Glucose, Urine Date Value Ref Range Status 02/26/2009 neg Neg mg/dL Bilirubin, Urine Date Value Ref Range Status 02/26/2009 neg Neg Ketones, Urine Date Value Ref Range Status 02/26/2009 neg Neg Hemoglobin/Blood,Ur Date Value Ref Range Status 02/26/2009 neg Neg Protein, Urine Date Value Ref Range Status 02/26/2009 trace Neg mg/dL Nitrites Date Value Ref Range Status 02/26/2009 neg Neg Leukocytes Date Value Ref Range Status 02/26/2009 neg Neg IMAGING: CT Scan: IMPRESSION: Exophytic left mid lateral 2.8 x 2.5 cm renal neoplasm which measured 1.6 x 1.1 cm on 10/15/2015. 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 ?Lesion is amenable to percutaneous ablation. Slight increase in size in infrarenal abdominal aortic aneurysm. Hepatic steatosis. Grossly stable right basilar lung lesion. ALLERGIES: ALLERGIES Allergen Reactions - Baycolother] [Other] Other: See Comments Rhabdomyolysis. - Demerol [Meperidine* Mental Status Change Gave too high of dose - Lopid [Gemfibrozil] Other: See Comments Myalgia. MEDICATIONS: ramipril (ALTACE) 10 mg capsule Take 1 capsule by mouth once daily. clopidogrel (PLAVIX) 75 mg tablet Take 1 tablet by mouth once daily. tamsulosin ER (FLOMAX) 0.4 mg cap TAKE ONE CAPSULE BY MOUTH ONCE DAILY AT BEDTIME budesonide-formoterol (SYMBICORT) 80-4.5 mcg/actuation inhaler Inhale 2 Puffs as instructed twice daily. Rinse mouth after use. Lactobacillus acidophilus (ACIDOPHILUS ORAL) Take by mouth. albuterol HFA (PROVENTIL HFA, VENTOLIN HFA) 90 mcg/actuation inhaler Inhale 1-2 Puffs as instructed four times daily as needed. FOR WHEEZING AND SHORTNESS OF BREATH. pantoprazole DR (PROTONIX) 40 mg tablet Take 1 tablet by mouth daily before breakfast. Take on empty stomach, 1/2 hr before meal. gabapentin (NEURONTIN) 100 mg capsule Take 1 capsule by mouth three times daily for 180 days. Fenofibrate (LOFIBRA) 160 mg tablet Take 1 tablet by mouth once daily. hydrocortisone (ANUSOL-HC) 2.5 % rectal cream Apply to affected area 3-4 times daily as needed meclizine (ANTIVERT) 25 mg tab Take 1 tablet by mouth every 6 hours as needed. FOR DIZZINESS clotrimazole-betamethasone (LOTRISONE) cream Apply 1 application to affected area twice daily. Chlorpheniramine-HYDROcodone (TUSSIONEX PENNKINETIC ER) 10-8 mg/5 mL suspension Take 5 mL by mouth twice daily. xrfiqjyz-bkpgnjwab-ruhlqergg isone (CORTISPORIN) 3.5-10,000-1 mg/mL-unit/mL-% otic suspension Use 4 Drops in the ears four times daily. x 1 week ipratropium 0.02 % nebulizer solution Use via nebulizer. 1 nebule 3 times a day as needed. 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 0 TIMES IN PAST MONTH NEED TO URINATE AGAIN WITHIN 2 HRS OF LAST EMPTY? 1 TIMES IN PAST MONTH YOU HAVE STOPPED AND STARTED URINE FLOW? 1 TIMES IN THE PAST MONTH YOU FOUND IT DIFFICULT TO POSTPONE URINATING? 0 TIMES IN THE PAST MONTH YOU HAVE HAD A WEAK URINARY STREAM? 1 TIMES IN PAST MONTH YOU HAVE HAD TO PUSH OR STRAIN TO URINATE? 0 TIMES IN PAST MONTH YOU GET UP TO URINATE FROM SLEEP UNTIL AWAKE? 1 HOW WOULD YOU FEEL IF YOU HAD TO LIVE WITH YOUR URINARY CONDITION IT IS NOW? 1 - Pleased WHAT IT THE TOTAL AUA SCORE? 4 REVIEW OF SYSTEMS General:No weight loss, malaise or fevers., SEE HPI Genitourinary: No history of dysuria, frequency or incontinence The remainder of the ROS was negative. PHYSICAL EXAMINATION BP 122/66 (BP Site: Left Arm, BP Position: Sitting, BP Cuff Size: Extra Large Adult) Ht 167.6 cm (5' 6) Wt 97.5 kg (215 lb) BMI 34.70 kg/m? General appearance: Well appearing, alert, in no acute distress and well-hydrated, well nourished Skin: Skin color, texture, turgor normal, no suspicious rashes or lesions Head: Normocephalic, no masses, lesions, tenderness or abnormalities Abdomen: Normal abdominal exam, Abdomen soft, non-tender. Bowel sounds normal. 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 I agree with the resident's findings and plan as documented and have discussed the case and management of the patient's care with the resident. Long discussion with patient regarding this mass. Follow-up in 6 months with a CAT scan I am more concerned about his increasing size of the AAA The diagnosis of renal mass was discussed in great detail. We discussed the fact that enhancement within a renal mass suggests malignancy, but that a benign renal tumor cannot be excluded. Overall the risks of malignancy appears to be about 80-90%. We discussed the problems with renal biopsy, the limited indications, and the need to treat based primarily on radiographic findings. The patient appears to understand that there is about a 10-20% chance that this mass may be benign. Regarding treatment, we discussed radical vs. partial nephrectomy. With respect to partial nephrectomy we discussed a potential advantage with preservation of long-term renal function intermediate and the equivalent long-term cancer control rates with appropriately selected patients. We discussed the small (~4%) risk of local recurrence and recurrence in the contralateral kidney and the need for long-term radiographic surveillance postoperatively. We discussed the higher complication rate with partial vs. radical nephrectomy related to a higher risk of prolonged urine leak, urinoma, hemorrhage requiring transfusion, infection, and possible need for reoperation. We also discussed the potential need for radical nephrectomy based on intraoperative findings. For radical and partial nephrectomy, we discussed the risks associated with any major surgery, including cardiovascular, pulmonary, anesthetic, and thromboembolic problems as well as wound healing problems. We discussed risk of cancer recurrence and the potential need for additional therapy. We also discussed risk of renal insufficiency and dialysis short and long-term with radical nephrectomy. We also discussed open vs. robotic/laparoscopic surgery and advantages and disadvantages each way. For robotic/laparoscopic surgery, we discussed possibility that conversion to open surgery might be required dependent on intraoperative findings and anatomy. We also discussed renal ablative therapies such as cryotherapy and RFA. We reviewed the data for these modalities and the overall encouraging findings thus far, but also discussed the fact that long-term cancer control issues remain unproven due to the still somewhat novel status of these modalities. As such, the fact that these procedures are still considered experimental was conveyed. All questions were answered. Signature: Chalino Valdez DO, MBA Date: 12/07/2018 Time: 10:54 AM Referring Provider: JIL HENRIQUEZ) [454089] Allergies As of Date: 12/06/2018 Noted Allergy Reaction baycolOther] [Other] 09/08/2006 14 - Other: See Comments Comments: Rhabdomyolysis. DEMEROL (MEPERIDINE (PF)) 11/18/2016 1 - Mental Status Change Comments: Gave too high of dose LOPID (GEMFIBROZIL) 07/14/2006 14 - Other: See Comments Comments: Myalgia. Date Reviewed: 12/06/2018 Reviewed by: Stanislav (Res) MD Anthony - Fully Assessed Reason for Visit: Mass [64] Cmt: kidney Primary Visit Diagnosis:Renal mass [N28.89] Other Visit Diagnoses:Other specified disorders of kidney and ureter [N28.89] Benign prostatic hyperplasia, unspecified whether lower urinary tract symptoms present [N40.0] Order(s):CT KIDNEY WO/W IVCON [[id number]] Order #: [id number] FUTURE iv contrast (will be provided with [...] contrast administration guidelines link.Disp: 1 EachRfl: 0 CREATININE BLD [SQCRET] Order #: [id number] FUTURE Prescriptions as of 12/06/2018 Sig: IV CONTRAST (RADIOLOGY PROCED* CT kidney wow Inject, intrave* RAMIPRIL 10 MG CAPSULE Take 1 capsule by mouth once * CLOPIDOGREL 75 MG TABLET Take 1 tablet by mouth once d* TAMSULOSIN 0.4 MG CAPSULE TAKE ONE CAPSULE BY MOUTH ONC* BUDESONIDE-FORMOTEROL HFA 80 * Inhale 2 Puffs as instructed * ACIDOPHILUS ORAL Take by mouth. ALBUTEROL SULFATE HFA 90 MCG/* Inhale 1-2 Puffs as instructe* PANTOPRAZOLE 40 MG TABLET,DEL* Take 1 tablet by mouth daily * GABAPENTIN 100 MG CAPSULE Take 1 capsule by mouth three* FENOFIBRATE 160 MG TABLET Take 1 tablet by mouth once d* HYDROCORTISONE 2.5 % TOPICAL * Apply to affected area 3-4 ti* MECLIZINE 25 MG TABLET Take 1 tablet by mouth every * CLOTRIMAZOLE-BETAMETHASONE 1 * Apply 1 application to affect* HYDROCODONE 10 MG-CHLORPHENIR* Take 5 mL by mouth twice leyla* HNHQIBXO-[id number]-[id number] * Use 4 Drops in the ears four * IPRATROPIUM BROMIDE 0.02 % SO* Use via nebulizer. 1 nebule * Problem List As Of Date 12/06/2018 Noted Resolved COPD with exacerbation (HCC) [J44.1] [...] mass [R91.8] INVALID FOR* Visit Notes: >> Mecca Lombardo CMA TueDecember 06, 2018 2:24 PM Status: Signed No urine sample given. Mecca Lombardo CMA Prescriptions ordered this encounter Disp Refills Start End IV CONTRAST (RADIOLOGY PROCEDURE) 1 Ea* 0 12/06/2018 12/07/2018 Class: In Office Sig: CT kidney wow [...] Disposition: Return in about 6 months (around 06/08/2019). Follow-up and Disposition History Recorded Questionnaire: AUA QUESTIONNAIRE TIMES IN THE PAST MONTH YOU HAD A FEELING OF NOT EMPTYING BLADDER? -> 0 TIMES IN PAST MONTH NEED TO URINATE AGAIN WITHIN 2 HRS OF LAST EMPTY? -> 1 TIMES IN PAST MONTH YOU HAVE STOPPED AND STARTED URINE FLOW? -> 1 TIMES IN THE PAST MONTH YOU FOUND IT DIFFICULT TO POSTPONE URINATING? -> 0 TIMES IN THE PAST MONTH YOU HAVE HAD A WEAK URINARY STREAM? -> 1 TIMES IN PAST MONTH YOU HAVE HAD TO PUSH OR STRAIN TO URINATE? -> 0 TIMES IN PAST MONTH YOU GET UP TO URINATE FROM SLEEP UNTIL AWAKE? -> 1 HOW WOULD YOU FEEL IF YOU HAD TO LIVE WITH YOUR URINARY CONDITION IT IS NOW? * WHAT IT THE TOTAL AUA SCORE? -> 4 Encounter Status:Closed by CHALINO VALDEZ on 12/07/18 [facility] PROGRESSon 12-06-2018 Protein mass conc HNO ID: [id number] Author: Chalino Valdez Service: ? Author Type: Physician Type: Progress Notes Filed: 12/07/2018 10:55 AM Note Text: ?? [facility] [place] [facility] LOCATION: [address] [place] [address] ESTABLISHED PATIENT PATIENT INFO: Paco Whitney 83 year old Chief Complaint: Renal Mass HPI F/u for renal mass surveillance. Denies gross hematuria or difficulty with urination. Has AAA that has increased in size from 4.7 to 5.2 cm. Long discussion on continued surveillance vs surgery (radical vs partial) vs cryo. Patient not interested in surgery and would prefer to continue surveillance. 1-Duration: years 2-Location: kidney 3-Severity: N/A 4-Quality: Not applicable 5-Context: surveillance 6-Timing: N/A 7-Modifying factors: No treatment prior to referral 8-Associated signs AND symptoms: no additional symptoms PATHOLOGY: N/A LAB: WBC (k/uL) Date Value 11/15/2018 5.50 RBC (m/uL) Date Value 11/15/2018 5.30 Hemoglobin (g/dL) Date Value 11/15/2018 16.6 Hematocrit (%) Date Value 11/15/2018 50.5 MCV (fL) Date Value 11/15/2018 95.3 MCH (pG) Date Value 11/15/2018 31.3 MCHC (g/dL) Date Value 11/15/2018 32.9 RDW-CV (%) Date Value 11/15/2018 13.7 Platelet Count (k/uL) Date Value 11/15/2018 176 MPV (fL) Date Value 11/15/2018 10.2 Neut% (%) Date Value 12/20/2014 51.1 Lymph% (%) Date Value 12/20/2014 31.4 Pitt% (%) Date Value 12/20/2014 13.2 Eosin% (%) Date Value 12/20/2014 3.8 Baso% (%) Date Value 12/20/2014 0.5 Abs Neut (ANC) (k/uL) Date Value 12/20/2014 2.97 Abs Pitt (k/uL) Date Value 12/20/2014 0.77 Abs Eosin (k/uL) Date Value 12/20/2014 0.22 Abs Baso (k/uL) Date Value 12/20/2014 0.03 Creatinine Date Value Ref Range Status 11/15/2018 1.20 0.73 - 1.22 mg/dL Final 06/26/2018 1.17 0.73 - 1.22 mg/dL Final 02/03/2018 1.22 0.73 - 1.22 mg/dL Final 11/22/2017 1.26 (H) 0.73 - 1.22 mg/dL Final PSA (ng/mL) Date Value 10/29/2014 0.55 05/23/2012 0.63 pH, Urine Date Value Ref Range Status 02/26/2009 5.0 4.5 - 8.0 Specific Fouke, Ur Date Value Ref Range Status 02/26/2009 1.015 1.005 - 1.030 Glucose, Urine Date Value Ref Range Status 02/26/2009 neg Neg mg/dL Bilirubin, Urine Date Value Ref Range Status 02/26/2009 neg Neg Ketones, Urine Date Value Ref Range Status 02/26/2009 neg Neg Hemoglobin/Blood,Ur Date Value Ref Range Status 02/26/2009 neg Neg Protein, Urine Date Value Ref Range Status 02/26/2009 trace Neg mg/dL Nitrites Date Value Ref Range Status 02/26/2009 neg Neg Leukocytes Date Value Ref Range Status 02/26/2009 neg Neg IMAGING: CT Scan: IMPRESSION: Exophytic left mid lateral 2.8 x 2.5 cm renal neoplasm which measured 1.6 x 1.1 cm on 10/15/2015. 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 ?Lesion is amenable to percutaneous ablation. Slight increase in size in infrarenal abdominal aortic aneurysm. Hepatic steatosis. Grossly stable right basilar lung lesion. ALLERGIES: ALLERGIES Allergen Reactions - Baycolother] [Other] Other: See Comments Rhabdomyolysis. - Demerol [Meperidine* Mental Status Change Gave too high of dose - Lopid [Gemfibrozil] Other: See Comments Myalgia. MEDICATIONS: ramipril (ALTACE) 10 mg capsule Take 1 capsule by mouth once daily. clopidogrel (PLAVIX) 75 mg tablet Take 1 tablet by mouth once daily. tamsulosin ER (FLOMAX) 0.4 mg cap TAKE ONE CAPSULE BY MOUTH ONCE DAILY AT BEDTIME budesonide-formoterol (SYMBICORT) 80-4.5 mcg/actuation inhaler Inhale 2 Puffs as instructed twice daily. Rinse mouth after use. Lactobacillus acidophilus (ACIDOPHILUS ORAL) Take by mouth. albuterol HFA (PROVENTIL HFA, VENTOLIN HFA) 90 mcg/actuation inhaler Inhale 1-2 Puffs as instructed four times daily as needed. FOR WHEEZING AND SHORTNESS OF BREATH. pantoprazole DR (PROTONIX) 40 mg tablet Take 1 tablet by mouth daily before breakfast. Take on empty stomach, 1/2 hr before meal. gabapentin (NEURONTIN) 100 mg capsule Take 1 capsule by mouth three times daily for 180 days. Fenofibrate (LOFIBRA) 160 mg tablet Take 1 tablet by mouth once daily. hydrocortisone (ANUSOL-HC) 2.5 % rectal cream Apply to affected area 3-4 times daily as needed meclizine (ANTIVERT) 25 mg tab Take 1 tablet by mouth every 6 hours as needed. FOR DIZZINESS clotrimazole-betamethasone (LOTRISONE) cream Apply 1 application to affected area twice daily. Chlorpheniramine-HYDROcodone (TUSSIONEX PENNKINETIC ER) 10-8 mg/5 mL suspension Take 5 mL by mouth twice daily. lojltnfc-tgpvoexic-xyyvfeszp isone (CORTISPORIN) 3.5-10,000-1 mg/mL-unit/mL-% otic suspension Use 4 Drops in the ears four times daily. x 1 week ipratropium 0.02 % nebulizer solution Use via nebulizer. 1 nebule 3 times a day as needed. Does the patient take any herbal medications?: No HISTORIES PAST MEDICAL HISTORY Diagnosis Date - Chronic [...] - Unspecified transient cerebral ischemia x 2 Smoking Status Reviewed: Yes TIMES IN THE PAST MONTH YOU HAD A FEELING OF NOT EMPTYING BLADDER? 0 TIMES IN PAST MONTH NEED TO URINATE AGAIN WITHIN 2 HRS OF LAST EMPTY? 1 TIMES IN PAST MONTH YOU HAVE STOPPED AND STARTED URINE FLOW? 1 TIMES IN THE PAST MONTH YOU FOUND IT DIFFICULT TO POSTPONE URINATING? 0 TIMES IN THE PAST MONTH YOU HAVE HAD A WEAK URINARY STREAM? 1 TIMES IN PAST MONTH YOU HAVE HAD TO PUSH OR STRAIN TO URINATE? 0 TIMES IN PAST MONTH YOU GET UP TO URINATE FROM SLEEP UNTIL AWAKE? 1 HOW WOULD YOU FEEL IF YOU HAD TO LIVE WITH YOUR URINARY CONDITION IT IS NOW? 1 - Pleased WHAT IT THE TOTAL AUA SCORE? 4 REVIEW OF SYSTEMS General:No weight loss, malaise or fevers., SEE HPI Genitourinary: No history of dysuria, frequency or incontinence The remainder of the ROS was negative. PHYSICAL EXAMINATION BP 122/66 (BP Site: Left Arm, BP Position: Sitting, BP Cuff Size: Extra Large Adult) Ht 167.6 cm (5' 6) Wt 97.5 kg (215 lb) BMI 34.70 kg/m? General appearance: Well appearing, alert, in no acute distress and well-hydrated, well nourished Skin: Skin color, texture, turgor normal, no suspicious rashes or lesions Head: Normocephalic, no masses, lesions, tenderness or abnormalities Abdomen: Normal abdominal exam, Abdomen soft, non-tender. Bowel sounds normal. 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 I agree with the resident's findings and plan as documented and have discussed the case and management of the patient's care with the resident. Long discussion with patient regarding this mass. Follow-up in 6 months with a CAT scan I am more concerned about his increasing size of the AAA The diagnosis of renal mass was discussed in great detail. We discussed the fact that enhancement within a renal mass suggests malignancy, but that a benign renal tumor cannot be excluded. Overall the risks of malignancy appears to be about 80-90%. We discussed the problems with renal biopsy, the limited indications, and the need to treat based primarily on radiographic findings. The patient appears to understand that there is about a 10-20% chance that this mass may be benign. Regarding treatment, we discussed radical vs. partial nephrectomy. With respect to partial nephrectomy we discussed a potential advantage with preservation of long-term renal function intermediate and the equivalent long-term cancer control rates with appropriately selected patients. We discussed the small (~4%) risk of local recurrence and recurrence in the contralateral kidney and the need for long-term radiographic surveillance postoperatively. We discussed the higher complication rate with partial vs. radical nephrectomy related to a higher risk of prolonged urine leak, urinoma, hemorrhage requiring transfusion, infection, and possible need for reoperation. We also discussed the potential need for radical nephrectomy based on intraoperative findings. For radical and partial nephrectomy, we discussed the risks associated with any major surgery, including cardiovascular, pulmonary, anesthetic, and thromboembolic problems as well as wound healing problems. We discussed risk of cancer recurrence and the potential need for additional therapy. We also discussed risk of renal insufficiency and dialysis short and long-term with radical nephrectomy. We also discussed open vs. robotic/laparoscopic surgery and advantages and disadvantages each way. For robotic/laparoscopic surgery, we discussed possibility that conversion to open surgery might be required dependent on intraoperative findings and anatomy. We also discussed renal ablative therapies such as cryotherapy and RFA. We reviewed the data for these modalities and the overall encouraging findings thus far, but also discussed the fact that long-term cancer control issues remain unproven due to the still somewhat novel status of these modalities. As such, the fact that these procedures are still considered experimental was conveyed. All questions were answered. Signature: Chalino Valdez DO, MBA Date: 12/07/2018 Time: 10:54 AM Normal [facility] CT BRAIN W/O CONTRASTon 01-16 CT BRAIN W/O CONTRAST [place] [id number] Patient: PACO WHITNEY Phone#: : 1935 Age: 82 Gender: M Pt. Type: ER Account: [id number] Location: 052 Ordering: EVELYN MADDEN Exam Date: 02/12/201813:39 Family Phys: CLARICE MURILLO Charge Code: [id number] Physician: Towner Order #: [id number] DLP Dose#: 57.50 PROCEDURE: CT BRAIN WITHOUT [...] 82 Gender: M Pt. Type: ER Account: [id number] Location: 052 Ordering: EVELYN MADDEN Exam Date: 02/12/2018/13:39 Family Phys: CLARICE MURILLO Charge Code: [id number] Physician: Towner Order #: [id number] DLP Dose#: 57.50 Dictated by: Gail Morrison MD on 02/12/2018 at 17:20 Approved by: Gail Morrison MD on 02/12/2018 at 17:20 Normal [facility] CT CERVICAL W/O CONTRASTon 0 02-12-2018 CT CERVICAL W/O CONTRAST [place] [id number] [place], [place] [address] Patient: PACO WHITNEY Phone#: : 1935 Age: 82 Gender: M Pt. Type: ER Account: [id number] Location: 052 Ordering: EVELYN MADDEN Exam Date: 02/12/2018/13:39 Family Phys: CLARICE MURILLO Charge Code: [id number] Physician: Towner Order #: [id number] DLP Dose#: 12.00 PROCEDURE: CT CERVICAL WITHOUT [...] 82 Gender: M Pt. Type: ER Account: [id number] Location: 052 Ordering: EVELYN MADDEN Exam Date: 02/12/2018/13:39 Family Phys: CLARICE MURILLO Charge Code: [id number] Physician: Towner Order #: [id number] DLP Dose#: 12.00 1. 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 2. There is disc space narrowing at the C3-4 level. Dictated by: Gail Morrison MD on 02/12/2018 at 17:23 Approved by: Gail Morrison MD on 02/12/2018 at 17:23 [facility] CT CHEST/ABD/PELVIS C-C+on 0 02-12-2018 CT CHEST/ABD/PELVIS C-C+ [place] [address] Patient: PACO WHITNEY Phone#: : 1935 Age: 82 Gender: M Pt. Type: ER Account: [id number] Location: 052 Ordering: EVELYN MADDEN Exam Date: 02/12/2018/13:45 Family Phys: CLARICE MURILLO Charge Code: [id number] Physician: Towner Order #: [id number] DLP Dose#: 64.7 PROCEDURE: CT CHEST/ABD/PELVIS W/WO [...] No visible pulmonary arterial thrombus or attenuation. MAULIK: Normal. No mass or adenopathy. MEDIASTINUM: Normal. [...] - Page 2 of 2 Patient: PACO WHITNYE Phone#: : 1935 Age: 82 Gender: M Pt. Type: ER Account: [id number] Location: [facility] Ordering: EVELYN MADDEN Exam Date: 02/12/2018/13:45 Family Phys: CLARICE MURILLO Charge Code: [id number] Physician: Towner Order #: [id number] DLP Dose#: 64.7 ADRENALS: Normal. No mass [...] Gail Morrison MD on 02/13/2018 at 9:46 Normal [facility] Large [facility] Vital Signs Date Time Vital Sign Value Performing Clinician Facility 02-05-2025 14:48-0400 Body mass index (BMI) [Ratio] 27.33 kg/m2 Clarice Murillo MD [facility] 02-05-2025 14:48-0400 Body weight 86.4 kg Clarice Murillo MD Work Phone: [facility] 02-05-2025 14:48-0400 Diastolic blood pressure 68 mm[Hg] Clarice Murillo MD Work Phone: [facility] 02-05-2025 14:48-0400 Heart rate 76 /min Clarice Murillo MD Work Phone: [facility] 02-05-2025 14:48-0400 Respiratory rate 16 /min Clarice Murillo MD Work Phone: [facility] 02-05-2025 14:48-0400 SaO2% (BldA) [Mass fraction] 94 % Clarice Murillo MD Work Phone: [facility] 02-05-2025 14:48-0400 Systolic blood pressure 110 mm[Hg] Clarice Murillo MD Work Phone: [facility] 11-10-2024 09:46-0400 Body temperature 97.7 [degF] Dr. Clarice Murillo MD Work Phone: [facility] 11-10-2024 09:46-0400 Diastolic blood pressure 58 mm[Hg] Dr. Clarice Murillo MD Work Phone: [facility] 11-10-2024 09:46-0400 Heart rate 71 /min Dr. Clarice Murillo MD Work Phone: [facility] 11-10-2024 09:46-0400 Respiratory rate 18 /min Dr. Clarice Murillo MD Work Phone: [phone] [place] [address] 11-10-2024 09:46-0400 SaO2% (BldA) [Mass fraction] 95 % Dr. Clarice Murillo MD Work Phone: 4(336)[phone] [place] [address] 11-10-2024 09:46-0400 Systolic blood pressure 103 mm[Hg] Dr. Clarice Murillo MD Work Phone: 6(975)[phone] [place] [address] 11-10-2024 05:33-0400 Body mass index (BMI) [Ratio] 29.7 kg/m2 Dr. Clarice Murillo MD Work Phone: 8(658)[phone] [place] [address] 11-10-2024 05:33-0400 Body weight 90.[address] Clarice Murillo MD Work Phone: 5(753)[phone] [place] [address] 11-08-2024 21:03-0400 Body height 175.[address] Clarice Murillo MD Work Phone: 1(817)315-851361 [place] [address] 11-03-2024 08:25-0400 Body mass index (BMI) [Ratio] 28.82 kg/m2 Jyothi Mosley APRN.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 Work Phone: [facility] 11-03-2024 08:25-0400 Body temperature 97.81 [degF] Jyothi Melany [employer]ENEER MANUFACTURER.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 Work Phone: [facility] 11-03-2024 08:25-0400 Body weight 91.1 kg Jyothi Mosley APRN.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 Work Phone: [facility] 11-03-2024 08:25-0400 Diastolic blood pressure 72 mm[Hg] Jyothi Mosley [employer]ENEER MANUFACTURER.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 Work Phone: [facility] 11-03-2024 08:25-0400 Heart rate 68 /min Jyothi Sabillonk [employer]ENE[employer] MANUFACTURER.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 Work Phone: [facility] 11-03-2024 08:25-0400 Respiratory rate 16 /min Jyothi Sabillonk VENEER MANUFACTURER.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 Work Phone: [facility] 11-03-2024 08:25-0400 SaO2% (BldA) [Mass fraction] 95 % Jyothi Sabillonk VENEER MANUFACTURER.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 Work Phone: [facility] 11-03-2024 08:25-0400 Systolic blood pressure 132 mm[Hg] Jyothi Mosley VENEER MANUFACTURER.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 Work Phone: [facility] 09-24-2024 10:02-0400 Body mass index (BMI) [Ratio] 28.52 kg/m2 Francia Luna MD Work Phone: [facility] 09-24-2024 10:02-0400 Body weight 90.17 kg Francia Luna MD Work Phone: [facility] 09-24-2024 10:02-0400 Diastolic blood pressure 73 mm[Hg] Francia Luna MD Work Phone: [facility] 09-24-2024 10:02-0400 Heart rate 74 /min Francia Luna MD Work Phone: [facility] 09-24-2024 10:02-0400 Respiratory rate 16 /min Francia Luna MD Work Phone: [facility] 09-24-2024 10:02-0400 SaO2% (BldA) [Mass fraction] 96 % Francia Luna MD Work Phone: [facility] 09-24-2024 10:02-0400 Systolic blood pressure 118 mm[Hg] Francia Luna MD Work Phone: [facility] 08-01-2024 14:16-0500 Body mass index (BMI) [Ratio] 28.37 kg/m2 Karla Campuzano [employer] MANUFACTURER.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 Work Phone: [facility] 08-01-2024 14:16-0500 Body weight 89.7 kg Karla Tannhof [employer]ER MANUFACTURER.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 Work Phone: [facility] 08-01-2024 14:16-0500 Diastolic blood pressure 62 mm[Hg] Karla Tannhof VENEER MANUFACTURER.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 Work Phone: [facility] 08-01-2024 14:16-0500 Heart rate 71 /min Karla Tannhof VENEER MANUFACTURER.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 Work Phone: [facility] 08-01-2024 14:16-0500 Respiratory rate 16 /min Karla Tannhof VENEER MANUFACTURER.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 Work Phone: [facility] 08-01-2024 14:16-0500 SaO2% (BldA) [Mass fraction] 97 % Karla Tannhof VENEER MANUFACTURER.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 Work Phone: [facility] 08-01-2024 14:16-0500 Systolic blood pressure 104 mm[Hg] Karla Tannhof VENEER MANUFACTURER.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 Work Phone: [facility] 01-16-2024 12:59-0400 Body mass index (BMI) [Ratio] 29.13 kg/m2 Karla Tannhof VENEER MANUFACTURER.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 Work Phone: [facility] 01-16-2024 12:59-0400 Body weight 92.08 kg Karla Tannhof VENEER MANUFACTURER.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 Work Phone: [facility] 01-16-2024 12:59-0400 Diastolic blood pressure 70 mm[Hg] Karla Tannhof VENEER MANUFACTURER.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 Work Phone: [facility] 01-16-2024 12:59-0400 Heart rate 86 /min Karla Tannhof VENEER MANUFACTURER.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 Work Phone: [facility] 01-16-2024 12:59-0400 Respiratory rate 16 /min Karla Tannhof VENEER MANUFACTURER.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 Work Phone: [facility] 01-16-2024 12:59-0400 SaO2% (BldA) [Mass fraction] 95 % Karla Tannhof VENEER MANUFACTURER.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 Work Phone: [facility] 01-16-2024 12:59-0400 Systolic blood pressure 110 mm[Hg] Karla Tannhof VENEER MANUFACTURER.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 Work Phone: [facility] 01-03-2024 10:46-0400 Body mass index (BMI) [Ratio] 28.84 kg/m2 Francia Luna MD Work Phone: [facility] 01-03-2024 10:46-0400 Body weight 91.17 kg Francia Luna MD Work Phone: [facility] 01-03-2024 10:46-0400 Diastolic blood pressure 68 mm[Hg] Francia Luna MD Work Phone: [facility] 01-03-2024 10:46-0400 Heart rate 75 /min Francia Luna MD Work Phone: [facility] 01-03-2024 10:46-0400 Respiratory rate 14 /min Francia Luna MD Work Phone: [facility] 01-03-2024 10:46-0400 SaO2% (BldA) [Mass fraction] 96 % Francia Luna MD Work Phone: [facility] 01-03-2024 10:46-0400 Systolic blood pressure 120 mm[Hg] Francia Luna MD Work Phone: [facility] 10-07-2023 09:59-0400 Body weight 91.17 kg Karla Tannhof VENEER MANUFACTURER.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 Work Phone: [facility] 10-07-2023 09:59-0400 Diastolic blood pressure 72 mm[Hg] Karla Tannhof VENEER MANUFACTURER.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 Work Phone: [facility] 10-07-2023 09:59-0400 Heart rate 64 /min Karla Tannhof VENEER MANUFACTURER.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 Work Phone: [facility] 10-07-2023 09:59-0400 Respiratory rate 16 /min Karla Tannhof VENEER MANUFACTURER.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 Work Phone: [facility] 10-07-2023 09:59-0400 SaO2% (BldA) [Mass fraction] 95 % Karla Tannhof VENEER MANUFACTURER.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 Work Phone: [facility] 10-07-2023 09:59-0400 Systolic blood pressure 126 mm[Hg] Karla Tannhof VENEER MANUFACTURER.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 Work Phone: [facility] 07-04-2023 11:03-0500 Body weight 90.27 kg Samaria Jaleesa ANN Work Phone: [facility] 03-14-2023 12:55-0400 Body weight 91.17 kg Karla Tannhof VENEER MANUFACTURER.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 Work Phone: [facility] 03-14-2023 12:55-0400 Diastolic blood pressure 78 mm[Hg] Karla Tannhof VENEER MANUFACTURER.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 Work Phone: [facility] 03-14-2023 12:55-0400 Heart rate 51 /min Karla Tannhof VENEER MANUFACTURER.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 Work Phone: [facility] 03-14-2023 12:55-0400 Respiratory rate 16 /min Karla Tannhof VENEER MANUFACTURER.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 Work Phone: [facility] 03-14-2023 12:55-0400 SaO2% (BldA) [Mass fraction] 94 % Karla Tannhof VENEER MANUFACTURER.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 Work Phone: [facility] 03-14-2023 12:55-0400 Systolic blood pressure 102 mm[Hg] Karla Tannhof VENEER MANUFACTURER.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 Work Phone: [facility] 03-08-2023 10:40-0400 Diastolic blood pressure 80 mm[Hg] Ibeth Reggie VENEER MANUFACTURER.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 Work Phone: [facility] 03-08-2023 10:40-0400 Heart rate 78 /min Ibeth Reggie VENEER MANUFACTURER.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 Work Phone: [facility] 03-08-2023 10:40-0400 SaO2% (BldA) [Mass fraction] 97 % Ibeth Reggie VENEER MANUFACTURER.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 Work Phone: [facility] 03-08-2023 10:40-0400 Systolic blood pressure 132 mm[Hg] Ibeth Paredes VENEER MANUFACTURER.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 Work Phone: [facility] 01-24-2023 11:12-0400 Body height 167.6 cm Pacc 1 Work Phone: [facility] 01-24-2023 11:12-0400 Body temperature 98.49 [degF] Pacc 1 Work Phone: [facility] 01-24-2023 11:12-0400 Body weight 95.71 kg Pacc 1 Work Phone: [facility] 01-24-2023 11:12-0400 Diastolic blood pressure 64 mm[Hg] Pacc 1 Work Phone: [facility] 01-24-2023 11:12-0400 Heart rate 72 /min Pacc 1 Work Phone: [facility] 01-24-2023 11:12-0400 Respiratory rate 18 /min Pacc 1 Work Phone: [facility] 01-24-2023 11:12-0400 SaO2% (BldA) [Mass fraction] 92 % Pacc 1 Work Phone: [facility] 01-24-2023 11:12-0400 Systolic blood pressure 134 mm[Hg] Pacc 1 Work Phone: [facility] 01-06-2023 12:57-0400 Body weight 91.17 kg Samaria Jaleesa PA-C Work Phone: [facility] 01-06-2023 12:57-0400 Diastolic blood pressure 64 mm[Hg] Samaria Jaleesa PA-C Work Phone: [facility] 01-06-2023 12:57-0400 Heart rate 95 /min Samaria Jaleesa PA-C Work Phone: [facility] 01-06-2023 12:57-0400 Respiratory rate 14 /min Samaria Jaleesa PA-C Work Phone: [facility] 01-06-2023 12:57-0400 SaO2% (BldA) [Mass fraction] 96 % Samaria rAceone PA-C Work Phone: [facility] 01-06-2023 12:57-0400 Systolic blood pressure 98 mm[Hg] Samaria Arceone PA-C Work Phone: [facility] 11-11-2022 11:51-0400 Body height 167.6 cm Chalino Vladez DO Work Phone: [facility] 11-11-2022 11:51-0400 Body weight 96.16 kg Chalino Valdez DO Work Phone: [facility] 10-27-2022 14:28-0400 Body weight 97.07 kg Eladio Pablo MD Work Phone: [facility] 10-27-2022 14:28-0400 Diastolic blood pressure 65 mm[Hg] Eladio Pablo MD Work Phone: [facility] 10-27-2022 14:28-0400 Heart rate 83 /min Eladio Pablo MD Work Phone: [facility] 10-27-2022 14:28-0400 SaO2% (BldA) [Mass fraction] 95 % Eladio Pablo MD Work Phone: [facility] 10-27-2022 14:28-0400 Systolic blood pressure 116 mm[Hg] Eladio Pablo MD Work Phone: [facility] 09-06-2022 18:29-0500 Body weight 96.3 kg Clarice Murillo MD Work Phone: [facility] 09-06-2022 18:29-0500 Diastolic blood pressure 78 mm[Hg] Clarice Murillo MD Work Phone: [facility] 09-06-2022 18:29-0500 Heart rate 74 /min Clarice Murillo MD Work Phone: [facility] 09-06-2022 18:29-0500 Respiratory rate 16 /min Clarice Murillo MD Work Phone: [facility] 09-06-2022 18:29-0500 Systolic blood pressure 130 mm[Hg] Clarice Mruillo MD Work Phone: [facility] 07-06-2022 13:25-0500 Body height 167.6 cm Francia Luna MD Work Phone: [facility] 07-06-2022 13:25-0500 Body weight 92.99 kg Francia Luna MD Work Phone: [facility] 07-06-2022 13:25-0500 Heart rate 69 /min Francia Luna MD Work Phone: [facility] 07-06-2022 13:25-0500 Respiratory rate 14 /min Francia Luna MD Work Phone: [facility] 07-06-2022 13:25-0500 SaO2% (BldA) [Mass fraction] 96 % Francia Luna MD Work Phone: [facility] 2022 09:49-0500 Body temperature 98.2 [degF] Tiffanie Schwartz VENEER MANUFACTURER.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 Work Phone: [facility] 2022 09:49-0500 Body weight 92.53 kg Tiffanie Schwartz VENEER MANUFACTURER.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 Work Phone: [facility] 2022 09:49-0500 Diastolic blood pressure 60 mm[Hg] Tiffanie Schwartz VENEER MANUFACTURER.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 Work Phone: [facility] 2022 09:49-0500 Heart rate 82 /min Tiffanie Lana VENEER MANUFACTURER.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 Work Phone: [facility] 2022 09:49-0500 Respiratory rate 16 /min Tiffanie Schwartz VENEER MANUFACTURER.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 Work Phone: [facility] 2022 09:49-0500 SaO2% (BldA) [Mass fraction] 97 % Tiffanie Schwartz APRN.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 Work Phone: [facility] 2022 09:49-0500 Systolic blood pressure 110 mm[Hg] Tiffanie Schwartz APRN.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 Work Phone: [facility] 06-04-2022 10:38-0500 Body weight 91.9 kg Clarice Murillo MD Work Phone: [facility] 06-04-2022 10:38-0500 Diastolic blood pressure 78 mm[Hg] Clarice Murillo MD Work Phone: [facility] 06-04-2022 10:38-0500 Heart rate 86 /min Clarice Murillo MD Work Phone: [facility] 06-04-2022 10:38-0500 Respiratory rate 20 /min Clarice Murillo MD Work Phone: [facility] 06-04-2022 10:38-0500 Systolic blood pressure 122 mm[Hg] Clarice Murillo MD Work Phone: [facility] 11-30-2021 15:45-0400 Body weight 91.63 kg Clarice Murillo MD Work Phone: [facility] 11-30-2021 15:45-0400 Diastolic blood pressure 60 mm[Hg] Clarice Murillo MD Work Phone: [facility] 11-30-2021 15:45-0400 Heart rate 62 /min Clarice Murillo MD Work Phone: [facility] 11-30-2021 15:45-0400 Respiratory rate 14 /min Clarice Murillo MD Work Phone: [facility] 11-30-2021 15:45-0400 Systolic blood pressure 100 mm[Hg] Clarice Murillo MD Work Phone: [facility] Encounters Encounter Date Encounter Type Care Provider Facility Start: 02-22-2025 End: 02-22-2025 Subsequent hospital visit by physician Marisol [facility] [place] Work Phone: Radiology Comment on above: Primary osteoarthrit is of right knee [M17.11] Start: 02-22-2025 End: 02-22-2025 ambulatory YNES TALAMANTES Facility:[facility] Start: 02-08-2025 End: 02-08-2025 Follow-up encounter Sidjustus Frank APRN.CNP Work Phone: [facility] Comment on above: Results Start: 02-05-2025 ambulatory CLARICE MURILLO Facil ity:[facility] Start: 02-05-2025 End: 02-05-2025 Subsequent hospital visit by physician Xr [facility] [place] Work Phone: Radiology Comment on above: Chronic pain of both shoulders [M25.511, G89.29, M25.512] Start: 02-05-2025 End: 02-05-2025 Office outpatient visit 25 minutes Clarice Murillo MD Work Phone: [facility] Comment on above: Essential hypertensi on, benign (Primary Dx); Abdominal aortic aneurysm (AAA) without rupture, unspecified part; Hyperlipidemia, unspecified hyperlipidemia type; Chronic pain of both shoulders; Neuropathy; Primary osteoarthritis of both shoulders; Pulmonary emphysema, unspecified emphysema type (HCC); Pedal edema Start: 02-05-2025 End: 02-05-2025 ambulatory CLARICE MURILLO Facility:[facility] Start: 01-30-2025 End: 01-30-2025 ambulatory KARLA CAMPOS Facility:[facility] Start: 11-19-2024 End: 11-19-2024 Refill Clarice Murillo MD Work Phone: [address] [place] [address] Comment on above: Refill Request Start: 11-13-2024 End: 11-13-2024 ambulatory Clarice Murillo [place]: 11-10-2024 Non-patient / Non-visit Dr. Riky Li MD -[facility] Work Phone: Start: 11-09-2024 Non-patient / Non-visit Dr. Dennis hameed MD -[facility] Start: 11-08-2024 ambulatory Clarice Murillo Facilit y:[facility] Start: 11-08-2024 End: 11-10-2024 Evaluation and management of inpatient Dr. Riky Li MD -[facility] Work Phone: Start: 11-08-2024 ambulatory Clarice Murillo Facilit y:[facility] Start: 11-08-2024 Non-patient / Non-visit Dr. Dennis hameed MD -[facility] Start: 11-08-2024 End: 11-08-2024 [facility] Start: 11-03-2024 End: 11-03-2024 Patient encounter procedure Jyothi Mosley APRN.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 Work Phone: [facility] Comment on above: URI with cough and c ongestion (Primary Dx); COPD with acute exacerbation (HCC); Asthma with COPD with exacerbation (HCC) Start: 11-03-2024 End: 11-03-2024 ambulatory CLARICE MURILLO Facility:[facility] Start: 11-01-2024 End: 11-01-2024 Refill Francia Luna MD Work Phone: Pulmonary Medicine Comment on above: Refill Request Start: 09-24-2024 End: 09-24-2024 ambulatory FRANCIA LUNA Facility:[facility] Start: 09-24-2024 End: 09-24-2024 Patient encounter procedure Francia Luna MD Work Phone: Pulmonary Medicine Comment on above: COPD, mild (HCC) (Pr imary Dx); Lobular atelectasis; Former cigarette smoker Start: 09-07-2024 End: 09-07-2024 Refill Clarice Murillo MD Work Phone: [facility] [place] Comment on above: Refill Request Start: 08-27-2024 End: 08-27-2024 ambulatory FABIO NORIEGA Facility:[facility] Start: 08-15-2024 End: 08-15-2024 Orders Only Fabio Noriega MD Work Phone: Orthopaedics Comment on above: Bilateral shoulder p ain, unspecified chronicity (Primary Dx) Start: 08-01-2024 End: 08-01-2024 Office outpatient visit 25 minutes Karla Campuzano APRN.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 Work Phone: [facility] Comment on above: Essential hypertensi on, benign (Primary Dx); Abdominal aortic aneurysm (AAA) without rupture, unspecified part (HCC); Hyperlipidemia, unspecified hyperlipidemia type; GERD without esophagitis; COPD with exacerbation (HCC); Neuropathy; Chronic pain of both shoulders; Mild intermittent asthma without complication; Elevated glucose; Dizziness; Screening for depression; Encounter for screening examination for other mental health and behavioral disorders Start: 08-01-2024 End: 08-01-2024 ambulatory [facility] Facility:[facility] Start: 07-24-2024 End: 07-24-2024 [facility] Facility:[facility] Start: 06-21-2024 End: 06-21-2024 ambulatory Adriel Vides RN Work Phone: [employer] Comment on above: community monitoring outreach (CDM-Telephonic outreach) Start: 05-24-2024 End: 05-24-2024 ambulatory Adriel Vides RN Work Phone: [facility] [employer] Comment on above: community monitoring outreach (CDM-Telephonic outreach/) Start: 05-04-2024 End: 05-04-2024 Refill Clarice Murillo MD Work Phone: [facility] Comment on above: Refill Request Start: 04-26-2024 End: 04-26-2024 ambulatory Adriel Vides RN Work Phone: [employer] Comment on above: community monitoring outreach (CDM-Telephonic outreach) Start: 04-25-2024 End: 04-25-2024 ambulatory Adriel Vides RN Work Phone: [facility] Comment on above: community monitoring outreach (CDM-Telephonic outreach) Start: 03-26-2024 End: 03-26-2024 ambulatory Adriel Vides RN Work Phone: [facility] Comment on above: community monitoring outreach (CDM-Telephonic outreach) Start: 03-21-2024 End: 03-21-2024 ambulatory [facility] Facility:[facility] Start: 03-21-2024 End: 03-21-2024 Patient encounter procedure Karla Campuzano VENEER MANUFACTURER.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 Work Phone: [facility] [place] Comment on above: Essential hypertensi on, benign (Primary Dx); Hyperlipidemia, unspecified hyperlipidemia type; Abdominal aortic aneurysm (AAA) without rupture, unspecified part (HCC); GERD without esophagitis; COPD with exacerbation (HCC); Neuropathy; Chronic pain of both shoulders; Encounter for immunization Start: 03-14-2024 End: 03-14-2024 Telephone encounter Karla Justen VENEER MANUFACTURER.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 Work Phone: [facility] [place] Comment on above: Results Start: 03-07-2024 End: 03-07-2024 ambulatory KARLA JAS TEJASAlbert Facility:[facility] Start: 02-24-2024 ambulatory Adriel Vides RN Work Phone: [facility] Comment on above: community monitoring outreach (CDM-Telephonic outreach) Start: 02-17-2024 Telephone encounter Clarice ellison MD Work Phone: [facility] [place] Comment on above: Patient Update Start: 01-26-2024 ambulatory Adriel Vides RN Work Phone: [facility] Comment on above: community monitoring outreach (CDM-Telephonic outreach) Start: 01-25-2024 Telephone encounter Karla cB syed VENEER MANUFACTURER.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 Work Phone: [facility] [place] Comment on above: Patient Update Start: 01-16-2024 End: 01-16-2024 Patient encounter procedure Karla Justen VENEER MANUFACTURER.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 Work Phone: [facility] [place] Comment on above: Essential hypertensi on, benign (Primary Dx); Hyperlipidemia, unspecified hyperlipidemia type; Abdominal aortic aneurysm (AAA) without rupture, unspecified part (HCC); GERD without esophagitis; Neuropathy; Chronic obstructive pulmonary disease, unspecified COPD type (HCC); Acute pain of both shoulders Start: 01-03-2024 End: 01-03-2024 Patient encounter procedure Francia Luna MD Work Phone: Pulmonary Medicine Comment on above: COPD with chronic br onchitis (HCC) (Primary Dx); Right lower lobe lung mass; ILD (interstitial lung disease) (HCC); Former cigarette smoker Start: 12-27-2023 Refill Clarice araujo MD Work Phone: [facility] [place] Comment on above: Refill Request Start: 12-26-2023 ambulatory Adriel Vides RN Work Phone: [facility] Comment on above: community monitoring outreach (CDM-Telephonic outreach) Start: 12-02-2023 Refill Samaria ValerioC Work Phone: Pulmonary Medicine Comment on above: Refill Request Start: 11-23-2023 ambulatory Adriel Vides RN Work Phone: [facility] Comment on above: community monitoring outreach (CDM-Telephonic outreach) Start: 11-21-2023 Refill Clarice araujo MD Work Phone: [address] [place] [address] Comment on above: Refill Request Start: 10-24-2023 ambulatory Adriel Vides RN Work Phone: [employer] Comment on above: community monitoring outreach (CDM-Telephonic outreach) Start: 10-07-2023 End: 10-07-2023 Patient encounter procedure Karla Campuzano APRN.CNP Work Phone: Family [facility] [place] Comment on above: Bronchitis (Primary Dx); GERD without esophagitis; Essential hypertension, benign; Abdominal aortic aneurysm (AAA) without rupture, unspecified part (HCC); Hyperlipidemia, unspecified hyperlipidemia type; Neuropathy; Chronic obstructive pulmonary disease, unspecified COPD type (HCC); Acute pain of both shoulders Start: 10-03-2023 Refill Clarice araujo MD Work Phone: [facility] [place] Comment on above: Refill Request Start: 09-14-2023 ambulatory Adriel Vides RN Work Phone: [facility] [employer] Comment on above: community monitoring outreach (CDM-Telephonic outreach/) Start: 07-04-2023 End: 07-04-2023 Office outpatient visit 10 minutes Samaria Lazcano PA-C Work Phone: Pulmonary Medicine Comment on above: Asthma-COPD overlap syndrome (Primary Dx); Lung nodules; Former cigarette smoker Start: 06-01-2023 ambulatory Adriel Vides RN Work Phone: [employer] Comment on above: community monitoring outreach (CDM-Telephonic outreach) Start: 05-13-2023 Refill Clarice araujo MD Work Phone: Family [facility] [place] Comment on above: Refill Request Start: 05-02-2023 ambulatory Adriel Vides RN Work Phone: [facility] Comment on above: community monitoring outreach (CDM-Telephonic outreach) Start: 03-29-2023 ambulatory Adriel Vides RN Work Phone: [facility] [employer] Comment on above: community monitoring outreach (CDM-Telephonic outreach) Start: 03-14-2023 End: 03-14-2023 Patient encounter procedure Karla Campuzano APRN.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 Work Phone: [facility] Comment on above: COPD with exacerbati on (HCC) (Primary Dx); Essential hypertension, benign; Hyperlipidemia, unspecified hyperlipidemia type; Abdominal aortic aneurysm (AAA) without rupture, unspecified part (HCC); GERD without esophagitis; Acute pain of both shoulders; Neuropathy Start: 03-08-2023 End: 03-08-2023 Office outpatient visit 25 minutes Ibeth Paredes APRN.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 Work Phone: Vascular Surgery Comment on above: Abdominal aortic ane urysm (AAA) without rupture, unspecified part (HCC) (Primary Dx); Peripheral arterial disease (HCC); Primary hypertension; Elevated HDL Start: 03-04-2023 End: 03-04-2023 Subsequent hospital visit by physician [facility] ([facility]-Stat) Work Phone: Cat Scan Comment on above: 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) [I71.43] Start: 03-01-2023 Telephone encounter Samaria Lazcano PA-C Work Phone: Pulmonary Medicine Comment on above: Patient Update Start: 03-01-2023 End: 03-01-2023 Patient encounter procedure Ramses Jacinto VENEER MANUFACTURER.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 Work Phone: [facility] Comment on above: Procedure not susan d out (Primary Dx) Start: 02-23-2023 ambulatory Adriel Vides RN Work Phone: [facility] Comment on above: community monitoring outreach (CDM-Telephonic outreach/) Start: 01-31-2023 End: 02-01-2023 Evaluation and management of inpatient [facility] Facility:[facility] Start: 01-25-2023 ambulatory Adriel Vides RN Work Phone: [facility] Comment on above: community monitoring outreach (CDM-Telephonic outreach) Start: 01-24-2023 End: 01-24-2023 Admission to establishment [facility] 1 Work Phone: [facility] Start: 01-24-2023 End: [facility] Comment on above: Pre-operative examin ation (Primary Dx); Chronic obstructive pulmonary disease, unspecified COPD type (HCC); Vertebrobasilar artery syndrome; Benign non-nodular prostatic hyperplasia with lower urinary tract symptoms; Renal cyst; Hyperlipidemia, unspecified hyperlipidemia type; Essential hypertension, benign; History of transient ischemic attack (TIA); History of total knee arthroplasty, left; Osteoarthritis of lumbar spine, unspecified spinal osteoarthritis complication status; Neuropathy; Bilateral carotid artery stenosis; Lung nodule Start: 01-24-2023 End: 01-24-2023 Preprocedural examination done Pac [place] 1 Work Phone: [facility] Work Phone: Start: 01-06-2023 End: 01-06-2023 Patient encounter procedure Samaria Lazcano PA-C Work Phone: Pulmonary Medicine Comment on above: Asthma with COPD wit h exacerbation (HCC) (Primary Dx); Lung nodules; Former cigarette smoker Start: 12-22-2022 ambulatory Adriel Vides RN Work Phone: [facility] Comment on above: community monitoring outreach (CDM-Telephonic outreach/) Start: 11-29-2022 ambulatory UNKNOWN PROVIDER Facili ty:[facility] Start: 11-29-2022 ambulatory UNKNOWN PROVIDER Facili ty:[facility] Start: 11-29-2022 End: 11-29-2022 Subsequent hospital visit by physician [facility] Work Phone: Cardiology Lab Comment on above: Encounter for screen ing for cardiovascular disorders [Z13.6] Start: 11-29-2022 End: 11-29-2022 Subsequent hospital visit by physician [facility] 2 Work Phone: Molecular Imaging Comment on above: Encounter for screen ing for cardiovascular disorders [Z13.6] Start: 11-26-2022 Telephone encounter Tosha cervantes RN Cardiology Lab Comment on above: Reminder Call Start: 11-25-2022 Refill Clarice araujo MD Work Phone: [address] [place] [address] Comment on above: Refill Request Start: 11-19-2022 ambulatory Adriel Vides RN Work Phone: [facility] [employer] Comment on above: community monitoring outreach (CDM-Telephonic outreach) Start: 11-11-2022 End: 11-11-2022 Patient encounter procedure Chalino Valdez Work Phone: Urology Comment on above: Benign non-nodular p rostatic hyperplasia with lower urinary tract symptoms (Primary Dx); Right renal mass Start: 10-28-2022 Telephone encounter Eladio lim MD Work Phone: Vascular Surgery Comment on above: Patient Question Start: 10-27-2022 End: 10-27-2022 Patient encounter procedure Eladio Pablo MD Work Phone: Vascular Surgery Comment on above: Abdominal aortic ane urysm (AAA) without rupture, unspecified part (HCC) Start: 10-22-2022 Telephone encounter Clarice ellison MD Work Phone: [facility] Comment on above: question on CT incid ental finding Start: 10-21-2022 ambulatory Adriel Vides RN Work Phone: [facility] Comment on above: community monitoring outreach (CDM-Telephonic outreach) Start: 10-13-2022 End: 10-13-2022 Subsequent hospital visit by physician [facility] (I-Stat) Work Phone: Cat Scan Comment on above: 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) [I71.43] Start: 10-11-2022 End: 10-11-2022 Patient encounter procedure Fabio Noriega MD Work Phone: Orthopaedics Comment on above: Chronic pain of both shoulders (Primary Dx); Acute pain of both shoulders; Primary osteoarthritis of both shoulders Start: 10-11-2022 End: 10-11-2022 Subsequent hospital visit by physician Marisol [facility] [place] Work Phone: Radiology Comment on above: Bilateral shoulder p ain, unspecified chronicity [M25.511, M25.512] Start: 10-06-2022 Orders Only Fabio Noriega MD Work Phone: Orthopaedics Comment on above: Bilateral shoulder p ain, unspecified chronicity (Primary Dx) Start: 09-29-2022 Telephone encounter Clarice ellison MD Work Phone: [facility] [place] Comment on above: Referral Request Start: 09-06-2022 End: 09-06-2022 Patient encounter procedure Clarice Murillo MD Work Phone: [facility] [place] Comment on above: Acute pain of both s houlders (Primary Dx); Right renal mass; Abdominal aortic aneurysm (AAA) without rupture, unspecified part (HCC) Start: 09-02-2022 Refill Clarice araujo MD Work Phone: [facility] [place] Comment on above: Refill Request Start: 08-19-2022 ambulatory Adriel Vides RN Work Phone: [facility] [employer] Comment on above: community monitoring outreach (CDM-Telephonic outreach) Start: 08-12-2022 Refill Clarice araujo MD Work Phone: [facility] [place] Comment on above: Refill Request Start: 07-16-2022 ambulatory Adriel Vides RN Work Phone: [facility] Comment on above: community monitoring outreach (CDM-Telephonic outreach) Start: 07-14-2022 Telephone encounter Francia Luna MD Work Phone: Pulmonary Medicine Comment on above: Results (Chest CT) Start: 07-08-2022 End: 07-08-2022 Subsequent hospital visit by physician [facility] (I-Stat) Work Phone: Cat Scan Comment on above: Lung nodules [R91.8] Start: 07-06-2022 End: 07-06-2022 Patient encounter procedure Francia Luna MD Work Phone: Pulmonary Medicine Comment on above: 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); Lung nodules; Former cigarette smoker Start: 2022 Telephone encounter Tiffanie marie APRN.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 Work Phone: [facility] [place] Comment on above: clarify doxycycline rx Start: 2022 End: 2022 Patient encounter procedure Tiffanie Schwartz APRN.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 Work Phone: [facility] [place] Comment on above: Acute exacerbation o f chronic obstructive pulmonary disease (COPD) (HCC) (Primary Dx) Start: 06-11-2022 ambulatory Adriel Mahogany MIRANDA Work Phone: [facility] [employer] Comment on above: community monitoring outreach (CDM telephonic outreach/) Start: 06-09-2022 Telephone encounter Jyothi Mosley APRN.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 Work Phone: [facility] Comment on above: Results Start: 06-08-2022 End: 06-08-2022 Subsequent hospital visit by physician Xr [facility] [place] Work Phone: Radiology Comment on above: Acute cough [R05.1] Start: 06-04-2022 End: 06-04-2022 Patient encounter procedure Clarice Murillo MD Work Phone: [facility] [place] Comment on above: Essential hypertensi on, benign (Primary Dx); Hyperlipidemia, unspecified hyperlipidemia type; Chronic obstructive pulmonary disease, unspecified COPD type (HCC); Osteoarthritis of lumbar spine, unspecified spinal osteoarthritis complication status; Vitamin D deficiency; Benign prostatic hyperplasia, unspecified whether lower urinary tract symptoms present; Need for influenza vaccination; Acute pain of left shoulder; Left hip pain Start: 04-30-2022 Refill Clarice araujo MD Work Phone: [facility] [facility] Comment on above: Refill Request Start: 04-12-2022 ambulatory Marianne alexis RN Work Phone: [employer] Comment on above: Community Monitoring Outreach (CDM Telephonic.) Start: 03-15-2022 ambulatory Marianne alexis RN Work Phone: [facility] Start: 03-15-2022 Follow-up encounter Marianne Balderas RN Work Phone: [employer] Comment on above: Community Monitoring Outreach (CDM Telephonic Follow Up) Start: 02-16-2022 ambulatory Marianne alexis RN Work Phone: [facility] Start: 02-16-2022 Follow-up encounter Marianne Balderas RN Work Phone: [employer] Comment on above: Community Monitoring Outreach (Telephonic Follow Up) Start: 02-15-2022 ambulatory Marianne alexis RN Work Phone: [facility] Start: 02-15-2022 Follow-up encounter Marianne Balderas RN Work Phone: [employer] Comment on above: Community Monitoring Outreach (Telephonic Follow Up) Start: 02-04-2022 Refill Clarice araujo MD Work Phone: [facility] [place] Comment on above: Refill Request Start: 01-19-2022 ambulatory Marianne alexis RN Work Phone: [facility] Start: 01-19-2022 Follow-up encounter Marianne Balderas RN Work Phone: [employer] Comment on above: Community Monitoring Outreach (Telephonic Follow Up) Start: 12-03-2021 Telephone encounter Clarice ellison MD Work Phone: [facility] [place] Comment on above: Results Start: 11-30-2021 End: 11-30-2021 Patient encounter procedure Clarice Murillo MD Work Phone: [facility] [place] Comment on above: Hyperlipidemia, unsp ecified hyperlipidemia type (Primary Dx); BENIGN HYPERTENSION; Abdominal aortic aneurysm without rupture (HCC); Chronic obstructive pulmonary disease, unspecified COPD type (HCC); Vitamin D deficiency; Osteoarthritis of lumbar spine, unspecified spinal osteoarthritis complication status; Benign prostatic hyperplasia, unspecified whether lower urinary tract symptoms present; Vertebrobasilar artery syndrome Start: 11-02-2021 [facility] Start: 11-02-2021 Follow-up encounter Marianne Balderas RN [employer] Comment on above: Community Monitoring Outreach (Telephonic Follow Up) Start: 10-05-2021 [facility] Start: 10-05-2021 Follow-up encounter Marianne Balderas technical research scientistO[employer] Worker [employer] Comment on above: Community Monitoring Outreach (Telephonic Follow Up) Start: 02-12-2018 End: 02-12-2018 [facility] Procedures Date Procedure Procedure Detail Performing Clinician Start: 11-08-2024 Plain x-ray of hand Dr. Clarice Murillo MD Work Phone: Start: 11-08-2024 Plain x-ray of wrist Dr Collin Murillo MD Work Phone: Start: 11-08-2024 Gram stain microscopy D jason Murillo MD Work Phone: Start: 11-03-2024 COVID-19 MOLECULAR (POC) Jyothi Mosley [employer]UFACTURER.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 Work Phone: Start: 08-01-2024 Adult depression scr eening assessment Karla Campuzano [employer] MANUFACTURER.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 Work Phone: Start: 03-04-2023 Ct angio abd&plvis c ntrst mtrl w/wo cntrst img Eladio Pablo MD Work Phone: Start: 01-25-2023 Antibody screen Pacc 1 Work Phone: Start: 11-29-2022 Myocardial spect mul tiple studies Eladio Pablo MD Work Phone: Start: 10-13-2022 Ct abdomen & pelvis w/o contrast material Briana Nolen DO Work Phone: Start: 10-11-2022 Arthrocentesis aspir &/inj major jt/bursa w/o us Fabio Noriega MD Work Phone: Start: 10-11-2022 Radex shoulder compl ete minimum 2 views Fabio Noriega MD Work Phone: Start: 07-08-2022 Ct thorax w/o contra st material Francia Luna MD Work Phone: Start: 06-08-2022 Radiologic exam ches t 2 views Ramses Jacinto [employer]ENEER MANUFACTURER.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 Work Phone: Start: 06-04-2022 INFLUENZA SEASONAL QUADRIVALENT HIGH DOSE AGE 65+ Clarice Murillo MD Work Phone: Plan of Treatment Date Care Activity Detail Author Start: 01-31-2028 Diabetes Screening [facility] Start: 07-24-2027 Diabetes Screening [facility] Start: 03-07-2027 [facility] Scre[facility] Start: 07-29-2026 Diabetes Screening [facility] Start: 02-01-2026 DIABETES SCREEN DIABETES SCREEN [facility] Start: 02-01-2026 Diabetes Screening [facility] Start: 12-02-2025 DIABETES SCREEN DIABETES SCREEN [facility] Start: 08-09-2025 End: 08-09-2025 Patient encounter procedure [facility] [place] Comment on above: transfer care/6 duane h follow up Start: 08-01-2025 Anxiety Screening [facility] Start: 08-01-2025 Covid-19 Vaccine ( season) Covid-19 Vaccine () [facility] Comment on above: Postponed from 03/18 (Declined at this time) Start: 08-01-2025 Depression Screening Depression Scre [facility] Start: 08-01-2025 RSV Vaccine (1 - 1-d ose 75+ series) RSV Vaccine (1 - 1-dose 75+ series) [facility] Comment on above: Postponed from 06/15 (Declined at this time) Start: 08-01-2025 Shingrix Vaccine (1 of 2) Shingrix Vaccine (1 of 2) [facility] Comment on above: Postponed from 06/15 (Declined at this time) Start: 05-20-2025 DIABETES SCREEN DIABETES SCREEN [facility] Start: 04-02-2025 End: 04-02-2025 Patient encounter procedure 04/02/2025 2:15 PM EDT Office Visit Pulmonary Medicine [address] [place], [place] [id number] Francia Luna MD [address] [place], [place] [address] 6 month f/u Pulmonary Medicine Comment on above: 6 month f/u Start: 03-18-2025 Influenza vaccination Influenza Vacc ine (#1) [facility] Start: 02-22-2025 End: 02-22-2025 Patient encounter procedure 02/22/2025 1:00 PM EDT Office Visit Orthopaedics [address] [place], [place] [id number] Ynes Talamantes PA-C [address], [place] [id number] Chronic pain of both shoulders [M25.511, G89.29, M25.512] Orthopaedics Comment on above: Chronic pain of both shoulders [M25.511, G89.29, M25.512] Start: 02-05-2025 End: 02-05-2025 Patient encounter procedure 02/05/2025 3:00 PM EDT Office Visit Family Medicine [place] [address] [place] [address] Clarice Murillo MD [address] [place] [address] 6 month follow up and labs [facility] Comment on above: 6 month follow up an d labs Start: 01-29-2025 End: 04-30-2025 Comprehensive metabolic 2000 panel - Serum or Plasma COMPREHENSIVE METABOLIC PANEL Lab Routine Hyperlipidemia, unspecified hyperlipidemia type Expected: 01/29/2025, Expires: 04/30/2025 [facility] Work Phone: Comment on above: Expected: 01/29/2025 , Expires: 04/30/2025 Start: 01-29-2025 End: 04-30-2025 Hemoglobin A1c in Blood HEMOGLOBIN A1C Lab Routine Elevated glucose Expected: 01/29/2025, Expires: 04/30/2025 [facility] Comment on above: Expected: 01/29/2025 , Expires: 04/30/2025 Start: 01-29-2025 End: 04-30-2025 Lipid 1996 panel - Serum or Plasma LIPID PANEL BASIC Lab Routine Hyperlipidemia, unspecified hyperlipidemia type Expected: 01/29/2025, Expires: 04/30/2025 [facility] Comment on above: Expected: 01/29/2025 , Expires: 04/30/2025 Start: 12-01-2024 DIABETES SCREEN DIABETES SCREEN [facility] Start: 11-10-2024 Patient discharge [facility] Start: 11-10-2024 Inhalation therapy procedure [facility] Start: 11-08-2024 Assessment of risk o f venous thromboembolism [facility] Start: 11-08-2024 Incentive spirometry [facility] Start: 11-08-2024 Insertion of cathete r into peripheral vein [facility] Start: 11-08-2024 Measuring intake and output [facility] Start: 11-08-2024 Providing care accor ding to standard [facility] Start: 11-08-2024 Provision of activit y privileges [facility] Start: 11-08-2024 Referral to occupati onal therapist [facility] Start: 11-08-2024 Referral to service [facility] Start: 11-08-[address] [facility] Start: 11-08-2024 Verification routine [facility] Start: 11-08-2024 Admission procedure [facility] Start: 11-08-2024 Elevation of affecte d extremity [facility] Start: 11-08-2024 End: 11-08-2024 Microbial culture, body fluid [facility] Start: 11-08-2024 Anaerobic Culture Anaerobic Culture [facility] Start: 09-24-2024 End: 09-24-2024 Patient encounter procedure 09/24/2024 10:00 AM EDT Office Visit Pulmonary Medicine [address] [place] [address] Francia Luna MD [address] [facility] [place] [address] Follow up COPD Pulmonary Medicine Comment on above: Follow up COPD Start: 08-27-2024 End: 08-27-2024 Patient encounter procedure 08/27/2024 2:30 PM EST Office Visit Orthopaedics [address] [place] [address] Fabio Noriega MD [address] [facility] [place] [place] [address] Shoulder Pain (Cortizone Injection)/Last visit 10/11/22) Orthopaedics Comment on above: Shoulder Pain (Corti zone Injection)/Last visit 10/11/22) Start: 08-01-2024 End: 08-01-2024 Patient encounter procedure 08/01/2024 2:40 PM EST Office Visit Family Medicine [place] [address] [facility] [place] [address] Karla Campuzano APRN.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 [address] [place] [address] 4 month follow up with labs [facility] [place] Comment on above: 4 month follow up wi labs Start: 07-19-2024 End: 07-19-2024 Patient encounter procedure 07/19/2024 1:15 PM EST Office Visit Pulmonary Medicine [address] [place] [address] Francia Luna MD [address] [place] [address] 6 MTH F/U COPD Pulmonary Medicine Comment on above: 6 MTH F/U COPD Start: 07-18-2024 Advance Directive Discussion [facility] Start: 07-18-2024 End: 10-17-2024 Comprehensive metabolic 2000 panel - Serum or Plasma COMPREHENSIVE METABOLIC PANEL Lab Routine Hyperlipidemia, unspecified hyperlipidemia type Expected: 07/18/2024, Expires: 10/17/2024 [facility] Work Phone: Comment on above: Expected: 07/18/2024 , Expires: 10/17/2024 Start: 07-18-2024 End: 10-17-2024 Lipid 1996 panel - Serum or Plasma LIPID PANEL BASIC Lab Routine Hyperlipidemia, unspecified hyperlipidemia type Expected: 07/18/2024, Expires: 10/17/2024 [facility] Comment on above: Expected: 07/18/2024 , Expires: 10/17/2024 Start: 07-18-2024 Medicare Advantage Annual Wellness Visit Medicare Advantage Annual Wellness [facility] Start: 05-12-2024 DIABETES SCREEN DIABETES SCREEN [facility] Start: 04-08-2024 End: 07-08-2024 Comprehensive metabolic 2000 panel - Serum or Plasma COMP METABOLIC PANEL Lab Routine Hyperlipidemia, unspecified hyperlipidemia type Expected: 04/08/2024, Expires: 07/08/2024 [facility] Work Phone: Comment on above: Expected: 04/08/2024 , Expires: 07/08/2024 Start: 04-08-2024 End: 07-08-2024 Lipid 1996 panel - Serum or Plasma LIPID PANEL BASIC Lab Routine Hyperlipidemia, unspecified hyperlipidemia type Expected: 04/08/2024, Expires: 07/08/2024 [facility] Work Phone: Comment on above: Expected: 04/08/2024 , Expires: 07/08/2024 Start: 03-21-2024 End: 03-21-2024 Patient encounter procedure 03/21/2024 1:40 PM EDT Office Visit Family Medicine [place] [address] [place] [address] Karla Campuzano, ROSS.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 [address] [facility] [place] [address] 3 month follow up Family Medicine [place] Comment on above: 3 month follow up Start: 03-18-2024 Covid-19 Vaccine () Covid-19 Vaccine () [facility] Start: 03-18-2024 Covid-19 Vaccine () Covid-19 Vaccine () [facility] Start: 03-18-2024 Influenza vaccination Influenza Vacc ine (#1) [facility] Start: 01-16-2024 End: 01-16-2024 Patient encounter procedure 01/16/2024 1:00 PM EDT Office Visit Family Medicine [place] [address] [place] [address] Karla Campuzano, VENEER MANUFACTURER.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 [address] [facility] [place] [address] 3 month follow up Family Medicine [place] Comment on above: 3 month follow up Start: 01-03-2024 End: 01-03-2024 Patient encounter procedure 01/03/2024 11:00 AM EDT Office Visit Pulmonary Medicine [address] [place] [address] Francia Luna MD [address] [place] [address] six month follow up Pulmonary Medicine Comment on above: six month follow up Start: 09-08-2023 End: 03-08-2024 US ABD AORTA COMPLETE VAS LAB US ABD AORTA COMPLETE VAS LAB Vascular Lab Routine Abdominal aortic aneurysm (AAA) without rupture, unspecified part (HCC) Expected: 09/08/2023, Expires: 03/08/2024 [facility] Work Phone: Comment on above: Expected: 09/08/2023 , Expires: 03/08/2024 Start: 07-18-2023 Advance Directive Discussion [facility] Start: 07-18-2023 Behavioral Health Screening Behavioral Health [facility] Start: 07-18-2023 Depression Assessment Depression Ass essment [facility] Start: 03-18-2023 Covid-19 Vaccine () Covid-19 Vaccine () [facility] Start: 03-18-2023 Influenza vaccination [facility] Start: 01-24-2023 End: 03-26-2023 CONFIRM BLOOD TYPE CONFIRM BLOOD TYPE Blood Bank Routine Pre-operative examination Expected: 01/24/2023, Expires: 03/26/2023 [facility] Work Phone: Comment on above: Expected: 01/24/2023 , Expires: 03/26/2023 Start: 12-02-2022 End: 02-01-2023 CBC W Auto Differential panel - Blood CBC + DIFF Lab Routine Hyperlipidemia, unspecified hyperlipidemia type Expected: 12/02/2022 (Approximate), Expires: 02/01/2023 [facility] Work Phone: Comment on above: Expected: 12/02/2022 (Approximate), Expires: 02/01/2023 Start: 12-02-2022 End: 02-01-2023 Comprehensive metabolic 2000 panel - Serum or Plasma COMP METABOLIC PANEL Lab Routine Hyperlipidemia, unspecified hyperlipidemia type Expected: 12/02/2022 (Approximate), Expires: 02/01/2023 [facility] Work Phone: Comment on above: Expected: 12/02/2022 (Approximate), Expires: 02/01/2023 Start: 12-02-2022 End: 02-01-2023 Lipid 1996 panel - Serum or Plasma LIPID PANEL BASIC Lab Routine Hyperlipidemia, unspecified hyperlipidemia type Expected: 12/02/2022 (Approximate), Expires: 02/01/2023 [facility] Work Phone: Comment on above: Expected: 12/02/2022 (Approximate), Expires: 02/01/2023 Start: 07-18-2022 ADVANCE DIRECTIVE DISCUSSION ADVANCE DIRECTIVE DISCUSSION [facility] Start: 07-18-2022 DEPRESSION ASSESSMENT DEPRESSION ASS ESSMENT [facility] Start: 03-18-2022 Influenza vaccination INFLUENZA (#1) [facility] Start: 09-30-2021 COVID-19 VACCINE (4 - Booster for Moderna series) COVID-19 VACCINE (4 - Booster for Moderna series) [facility] Start: 07-28-2021 COVID-19 VACCINE (4 - Booster for Moderna series) COVID-19 VACCINE (4 - Booster for Moderna series) [facility] Start: 07-28-2021 COVID-19 VACCINE (4 - Moderna series) COVID-19 VACCINE (4 - Moderna series) [facility] Start: 07-18-2021 ADVANCE DIRECTIVE DISCUSSION ADVANCE DIRECTIVE DISCUSSION [facility] Start: 07-18-2021 DEPRESSION ASSESSMENT DEPRESSION ASS ESSMENT [facility] Start: 01-31-2021 COVID-19 VACCINE (3 - Booster for Moderna series) COVID-19 VACCINE (3 - Booster for Moderna series) [facility] Start: 2012 RSV Vaccine (1 - 1-d ose 75+ series) RSV Vaccine (1 - 1-dose 75+ series) [facility] Start: 02-10-2012 Urine microalbumin profile [facility] Start: 1997 RSV Vaccine (1 - 1-d ose 60+ series) RSV Vaccine (1 - 1-dose 60+ series) [facility] Start: 1987 SHINGRIX VACCINE (1 of 2) SHINGRIX VACCINE (1 of 2) [facility] Start: 1955 Anxiety Screening Anxiety Scre[facility] Start: 1955 Depression Screening Depression Scre ening [facility] Anion gap in Serum o r Plasma [facility] Bacteria identified in Unspecified specimen by Anaerobe culture [facility] BUN/Creatinine ratio [facility] Calcium [Mass/volume ] in Serum or Plasma [facility] Carbon dioxide, tota l [Moles/volume] in Central venous blood [facility] Creatinine [Mass/vol ume] in Serum or Plasma [facility] End: 08-05-2023 Ct thorax w/o contrast material CT CHEST WO IVC Radiology Routine Lung nodules 1 Occurrences starting 07/06/2022 until 08/05/2023 [facility] Work Phone: Comment on above: 1 Occurrences starti ng 07/06/2022 until 08/05/2023 Erythrocyte mean corpuscular volume determination [facility] Glucose [Mass/volume ] in Serum or Plasma [facility] Hematocrit [Volume Fraction] of Blood [facility] Hemoglobin [Mass/vol ume] in Blood [facility] Leukocytes [#/volume ] in Blood [facility] Mean corpuscular hemoglobin concentration determination [facility] Mean corpuscular hemoglobin determination [facility] Measurement of renal function [facility] Neutrophil count [facility] Neutrophil percent differential count [facility] Patient referral [facility] Work Phone: Platelets [#/volume] in Blood [facility] Potassium measurement [facility] Red blood cell count [facility] Red cell distributio n width determination [facility] Serum chloride measurement [facility] Sodium measurement [facility] Urea nitrogen [Mass/volume] in Serum or Plasma [facility] XR Knee - right 4 Views XR KNEE GENERAL 4V AP BOTH/PA BOTH/LAT/MERC RIGHT Radiology Routine Primary osteoarthritis of right knee 02/22/2025 2:04 PM EDT [facility] Work Phone: End: 09-14-2025 XR Shoulder - left 3 Views XR SHOULDER GENERAL 3V OR MORE AP/TRUE AP/OTHER LEFT Radiology Routine Bilateral shoulder pain, unspecified chronicity 1 Occurrences starting 08/15/2024 until 09/14/2025 [facility] Work Phone: Comment on above: 1 Occurrences starti ng 08/15/2024 until 09/14/2025 End: 03-07-2026 XR Shoulder - left 3 Views XR SHOULDER GENERAL 3V OR MORE AP/TRUE AP/OTHER LEFT Radiology Routine Chronic pain of both shoulders 1 Occurrences starting 02/05/2025 until 03/07/2026 [facility] Comment on above: 1 Occurrences starti ng 02/05/2025 until 03/07/2026 XR Shoulder - left 3 Views XR SHOULDER GENERAL 3V OR MORE AP/TRUE AP/OTHER LEFT Radiology Routine Chronic pain of both shoulders 02/05/2025 4:07 PM EDT [facility] End: 09-14-2025 XR Shoulder - right 3 Views XR SHOULDER GENERAL 3V OR MORE AP/TRUE AP/OTHER RIGHT Radiology Routine Bilateral shoulder pain, unspecified chronicity 1 Occurrences starting 08/15/2024 until 09/14/2025 [facility] Comment on above: 1 Occurrences starti ng 08/15/2024 until 09/14/2025 End: 03-07-2026 XR Shoulder - right 3 Views XR SHOULDER GENERAL 3V OR MORE AP/TRUE AP/OTHER RIGHT Radiology Routine Chronic pain of both shoulders 1 Occurrences starting 02/05/2025 until 03/07/2026 [facility] Work Phone: Comment on above: 1 Occurrences starti ng 02/05/2025 until 03/07/2026 XR Shoulder - right 3 Views XR SHOULDER GENERAL 3V OR MORE AP/TRUE AP/OTHER RIGHT Radiology Routine Chronic pain of both shoulders 02/05/2025 4:07 PM EDT [facility] End: 11-05-2023 XR SHOULDER GENERAL 3V OR MORE AP/TRUE AP/OTHER LEFT XR SHOULDER GENERAL 3V OR MORE AP/TRUE AP/OTHER LEFT Radiology Routine Bilateral shoulder pain, unspecified chronicity 1 Occurrences starting 10/06/2022 until 11/05/2023 [facility] Work Phone: Comment on above: 1 Occurrences starti ng 10/06/2022 until 11/05/2023 End: 11-05-2023 XR SHOULDER GENERAL 3V OR MORE AP/TRUE AP/OTHER RIGHT XR SHOULDER GENERAL 3V OR MORE AP/TRUE AP/OTHER RIGHT Radiology Routine Bilateral shoulder pain, unspecified chronicity 1 Occurrences starting 10/06/2022 until 11/05/2023 [facility] Work Phone: Comment on above: 1 Occurrences starti ng 10/06/2022 until 11/05/2023 [facility] Immunizations Immunization Date Immunization Notes Care Provider Wilberto real 03-21-2024 influenza, high dose seasonal, preservative-free Karla Camposf [employer]ENEER MANUFACTURER.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 Work Phone: [facility] 03-21-2024 influenza virus vacc ine, unspecified formulation Clarice Murillo MD Work Phone: [facility] 07-08-2023 influenza (HD-IIV4) vaccine, age 65+ yr, high dose, quadrivalent, PF (FLUZONE HIGH-DOSE) Adriel Vides RN Work Phone: [facility] 07-08-2023 influenza virus vacc ine, unspecified formulation Karla Campuzano VENEER MANUFACTURER.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 Work Phone: [facility] 06-04-2022 influenza, high-dose , quadrivalent vaccine (FLUZONE HIGH DOSE QUADRIVALENT) Clarice Murillo MD Work Phone: [facility] 06-04-2022 influenza virus vacc ine, unspecified formulation Adriel Vides RN Work Phone: [facility] 06-02-2021 COVID-19 original vaccine, full dose, monovalent (MODERNA) Adriel Vides RN Work Phone: [facility] 05-29-2021 influenza, high-dose , quadrivalent vaccine (FLUZONE HIGH DOSE QUADRIVALENT) Marianne Balderas RN [facility] 09-03-2020 COVID-19 vaccine, fu ll dose (MODERNA) Marianne Balderas RN [facility] 08-06-2020 COVID-19 vaccine, fu ll dose (MODERNA) Marianne Balderas RN [facility] 05-29-2020 influenza, high-dose , quadrivalent vaccine (FLUZONE HIGH DOSE QUADRIVALENT) Marianne Balderas RN [facility] 04-16-2019 influenza, high dose seasonal, preservative-free Marianne Balderas RN [facility] 05-22-2018 influenza, high dose seasonal, preservative-free Marianne Balderas RN [facility] 04-04-2018 influenza, injectabl e, quadrivalent, preservative free Dr. Clarice Murillo MD Work Phone: [facility] 03-31-2017 influenza, high dose seasonal, preservative-free Marianne Balderas RN [facility] 06-28-2016 influenza, high dose seasonal, preservative-free Marianne Balderas RN [facility] 06-17-[address] Clarice Murillo MD Work Phone: [facility] 06-25-2015 influenza, high dose seasonal, preservative-free Marianne Balderas RN [facility] 06-25-2015 pneumococcal conjuga te vaccine, 13 valent Marianne Balderas RN [facility] 05-13-2014 influenza, seasonal, injectable Marianne Balderas RN [facility] Work Phone: 05-21-2013 influenza virus vacc ine, unspecified formulation Marianne Balderas RN [facility] 05-22-2012 influenza virus vacc ine, unspecified formulation Marianne Balderas RN [facility] 02-09-2012 tetanus and diphther ia toxoids, adsorbed, preservative free, for adult use (2 Lf of tetanus toxoid and 2 Lf of diphtheria toxoid) Marianne Balderas RN [facility] 04-22-2010 influenza virus vacc ine, unspecified formulation Marianne Balderas RN [facility] 04-30-2009 influenza virus vacc ine, unspecified formulation Marianne Balderas RN [facility] Work Phone: 04-17-2006 pneumococcal polysaccharide vaccine, 23 valent Marianne Balderas RN [facility] Payers Date Payer Category Payer Self-pay 2022 Medicare (Managed Care) PRIMETIM E [id number] 2022 Unknown [id number] 2010 Unknown [employer] LIFE MEDICARE SUPPLEMENT [id number] 2010-Present [phone] [address] [place] [address] Indemnity [id number] 2010 Unknown [id number] 2002 Medicare MEDICARE MEDICAR E A AND B [id number] 2002-Present [phone] [place] [address] Medicare [id number] 2002 Medicare MEDICARE MEDICAR E A AND B [id number] 2002-Present [phone] [address] [place] [id number] Medicare [id number] Unknown [id number] Unknown COMMERCIAL OTHER [id number] Unknown [id number] 62 Unknown [id number] 62 Unknown [id number] 62 Unknown [id number] 62 Unknown [id number] 62 Unknown [id number] 62 Unknown [id number] 62 Unknown [id number] 62 Social History Date Type Detail Facility Start: 08-01-2018 End: 08-01-2024 Tobacco smoking status NHIS Ex-smoker [facility] Start: 1959 End: 10-30-1990 History of tobacco use Current smoker [facility] Start: 1959 End: 10-30-1990 History of tobacco use Cigarette Smoker [facility] Start: 05-29-2021 End: 02-22-2025 Alcohol intake Current non-drinker of alcohol (finding) [facility] Start: 08-01-2018 End: 06-04-2022 Tobacco Comment Multiple 4-5 year quits during smoking career. [facility] Start: 1935 Sex Assigned At Male C [facility] Work Phone: Start: 11-20-2021 End: 06-08-2022 Exposure to SARS-CoV-2 (event) Not sure [facility] Start: 08-01-2018 End: 11-29-2022 Cigarettes smoked current (pack per day) - Reported 2 [facility] Work Phone: Start: 08-01-2018 End: 08-01-2024 Tobacco use and exposure Smokeless tobacco non-user [facility] Work Phone: Start: 11-29-2022 End: 01-24-2023 Tobacco use panel [facility] Work Phone: Start: 06-18-2012 Adult Depression Screening Assessment 0 [facility] Work Phone: Start: 07-25-2017 Gender identity Identifies as male gender (finding) [facility] Work Phone: Start: 07-25-2017 Sexual orientation Heterosexual (fin ding) [facility] Work Phone: Start: 11-08-2024 Tobacco smoking stat us KSIS Never smoked tobacco (finding) [facility] Start: 11-08-[address] [facility] Start: 11-08-[address] [facility] Start: 06-28-2018 Spouse/ Significant Other Spouse/ Significant Other [facility] Start: 11-08-2024 Non-smoker Non-smoker [facility] Start: 11-10-2024 Sex Male (finding) [facility] Medical Equipment Procedure Code Equipment Code Equipment Origin al Text Equipment Identifier Dates Excluder Conform able Aaa Endoprostesis 32mm X 14.5mm X [id number] Start: 01-31-2023 Conform Aaa Capitation [id number] tart: 01-31-2023 Excluder Stent E npros Excdr Ibc 23x12 [id number] Start: 01-31-2023 Excluder Stent E npros Excdr Hc [id number] Start: 01-31-2023 Graft Excluder 2 7mm 21.5-25mm [place]-Derek Nitinol Fep 10cm Endovascular Stent - [id number] Start: 01-31-2023 Graft Excluder 2 7mm 21.5-25mm [place]-Derek Nitinol Fep 10cm Endovascular Stent - [id number] Start: 01-31-2023 2-Pc Uni Perla Capitation [id number] Start: 01-31-2023 Goals Date Patient Goal Desired Activity /State Personal health goal Comment on above: Formatting of this n ote might be different from the original. Avoid hospitalization Personal health goal Comment on above: Formatting of this n ote might be different from the original. Patient has the following Chronic Obstructive Pulmonary Disease goals: Two PCP visits annually and Pulmonology visit annually Education provided and reviewed with patient - sent on 12/24/22 COPD Action Plan/Zones Patient will meet these goals by 07/17/2023 (describe interventions done by PCC) Personal health goal Comment on above: Formatting of this n ote might be different from the original. This patient has the following High Blood Pressure/Hypertension Health Maintenance goals: Two PCP Visits annually, Nurse / pharmacist / STEPHEN visit within 4 weeks after PCP visit with uncontrolled BP (>140/90), BMP annually, and Patients specific blood pressure target:130/80 This patient has the following education goals: Medication compliance education, Advise / educate patient to ask for repeat BP check at any appointment if first BP is >140/90, Checking your Blood Pressure at Home, High Blood Pressure: Talking to Your Health Care Provider, High Blood Pressure - When to Seek Emergency Care, High Blood Pressure and Nutrition, Your Sodium-Controlled Diet, and Hypertension Treatment Overview Patient will meet these goals by 07/17/2024 (describe interventions done by PCC) Comment on above: Formatting of this n ote might be different from the original. Would like to live to see his next birthday Comment on above: Formatting of this n ote might be different from the original. Comment on above: Formatting of this n ote might be different from the original. Avoid hospitalization Comment on above: Formatting of this n ote might be different from the original. Patient has the following Chronic Obstructive Pulmonary Disease goals: Two PCP visits annually and Pulmonology visit annually Education provided and reviewed with patient - sent on 12/24/22 COPD Action Plan/Zones Patient will meet these goals by 07/17/2023 (describe interventions done by PCC) Functional Status Date Assessment Result Facility 11-10-2024 Functional status Ambulates;Bath room Privilege [facility] Work Phone: 02-01-2023 Are you deaf, or do you have serious difficulty hearing No 02/01/2023 10:19 AM Jey Pearson, RUBEN No [facility] 02-01-2023 Are you blind, or do you have serious difficulty seeing, even when wearing glasses No 02/01/2023 10:19 AM Jey Pearson, RUBEN No [facility] 02-01-2023 Do you have serious difficulty walking or climbing stairs No 02/01/2023 10:19 AM Jey Pearson, RUBEN No [facility] 02-01-2023 Do you have difficul ty dressing or bathing No 02/01/2023 10:19 AM Jey Pearson, RUBEN No [facility] 02-01-2023 Because of a physica l, mental, or emotional condition, do you have difficulty doing errands alone such as visiting a physician's office or shopping No 02/01/2023 10:19 AM EDT Jey Ahuja, RUBEN No [facility] Mental Status Date Assessment Result Facility 11-10-2024 Cognitive function Voice/Name [facility] Work Phone: 12-24-2014 Because of a physica l, mental, or emotional condition, do you have serious difficulty concentrating, remembering, or making decisions No 12/24/2014 10:18 AM EDT Marianne Escobar MA No [facility] Clinical Notes 07-09-2014 to 02-22-2025 Telephone Encounter - Korin Calixto MA - 02/08/2025 2:45 PM EDTTelephone Encounter - Korin Calixto MA - 02/08/2025 2:45 PM EDTTelephone Encounter - Sid Frank APRN.CNP - 02/08/2025 9:12 AM EDT Note Date & Type Note Facility 02-22-2025 Note HNO ID: [id number] Author: YNES TALAMANTES PA-C Service: ? Author Type: Physician Manager Mining Type: Progress Notes Filed: 02/22/2025 13:42 Note Text: Ynes Talamantes PA-C Department of Orthopaedics Orthopaedics [address] [facility] [address] Dept: [phone] Dept February 22, 2025 CHIEF COMPLAINT: Pain of the Left Shoulder and Pain of the Right Shoulder Bilateral Shoulder Pain: - Chronic bilateral shoulder pain, with the right shoulder being more painful than the left. - Limited ROM; pain exacerbated when lifting arms to touch head or face. - Recent x-rays on 02/05 showed significant arthritis in both shoulders. - Cortisone injections in both shoulders approximately [address] Noriega; left shoulder injection provided relief. - Noted asymmetry in shoulder size; right shoulder appears larger and more puffy compared to the left. - Right hand dominant, ambulates with the assistance of a rollator. Osteoarthritis: - Right knee is bothering him quite a bit as well, having difficulty climbing stairs and ambulating, is inquiring about a corticosteroid injection for the right knee as well. - [place] [address] Guzmán; limited flexion in the left knee. - Uses a rollator for mobility due to knee and hip pain. - Applies Blue Emu cream for pain relief. ASSESSMENT: M19.011, M19.012 Primary osteoarthritis of both shoulders (primary encounter diagnosis) M17.11 Primary osteoarthritis of right knee PLAN: 1. Primary osteoarthritis of both shoulders (M19.011) - Chronic, severe bilateral shoulder OA with significant joint space narrowing and deformity on X-rays from 02/05. - Provided intra-articular corticosteroid injections to both shoulders. - Educated patient on the option to repeat corticosteroid injections every 91 days if beneficial for pain relief. - Advised use of pillows to elevate head of bed to improve comfort and sleep quality. 2. Primary osteoarthritis of right knee (M17.11) - Chronic right knee OA, likely [id number]. - Ordered new X-rays of the right knee. - Discussed option for intra-articular corticosteroid injection to right knee after imaging is completed. Mr. Paco Whitney was advised as to contrast therapies and/or to take analgesics/anti-inflammatories as needed and all contraindications were reviewed. OBJECTIVE: Mr. Paco Whitney is a pleasant 89 year old in no apparent distress. Gen:There were no vitals taken for this visit. nl development, non obese, no deformities ENT: Normocephalic, normal hearing, moist mucosa CV: Pulses:Radial= 2+ and symmetric, capillary refill < 2 secs, no peripheral edema/varicosities Skin: no rash, bruising or lesions. Good turgor. Psych: cooperative and appropriate, alert and oriented x 3, good mood and affect. Musculoskeletal: Arthritic changes noted in both shoulders, active forward elevation of about 85 degrees bilaterally. Passive range of motion was not performed, strength testing was not performed. Right knee with some arthritic changes, some tenderness to palpation along the medial joint line. Extension with about a 5 degree lag. Right knee flexion to about 110 degrees. In addition to the comprehensive evaluation, assessment and plan outlined above, and as a distinct and separate element to the visit today, separate from imaging tests for additional assessment and right knee pain, we have made the determination to proceed with an injection to aid in the management of the patient's condition. We discussed the risks, benefits, alternatives and expected outcomes of this injection in detail, and the patient agreed to proceed. The procedure was performed as detailed below. Large Joint Arthro/Inj: bilateral subacromial bursas 02/22/2025 1:42 PM The procedure site was prepped in the usual sterile fashion. Site: bilateral subacromial bursas Medications (Right): 6 mg betamethasone acetate-betamethasone sodium phosphate 6 mg/mL Medications (Left): 6 mg betamethasone acetate-betamethasone sodium phosphate 6 mg/mL Anesthetics (Right): 5 mL lidocaine (PF) 10 mg/mL (1 %) Anesthetics (Left): 5 mL lidocaine (PF) 10 mg/mL (1 %) Outcome: Tolerated well, no immediate complications Post-injection instructions were reviewed with the patient and the patient voiced understanding of these instructions. Informed Consent Consent Obtained: Verbal [place] Protocol A moment to CARE was completed. SIGN IN Sign in communication not applicable due to emergent procedure. Personnel directly involved with the procedure wore the appropriate PPE. Special Equipment: N/A Patient/Surrogate Stated/Verified: Patient name, Date of , Relevant allergies and Intended procedure TIME OUT Relevant labs, photos, and/or imaging studies have been reviewed. Consent documented and matches the intended procedure. Correct side/site marked and visible. Medications requ (more content not included)... [facility] 02-22-2025 Note HNO ID: [id number] Author: MARY WAGNER MA Service: ? Author Type: Plant Culture Manager Type: Progress Notes Filed: 02/22/2025 13:42 Note Text: AMB ROOMING INTAKE FLOWSHEET DATA Pain Pain Level: 2 (as high as 10) Pain Location: (bilateral shoulders) Description: Aching, Sharp, Dull Duration Amount of Time: (ongoing) Frequency: Continuous Intervention/Comfort measure: Medication [facility] 02-08-2025 Telephone encounter Note Call to pt and notified him of results and recommendations below from Provider. Pt verbalized understanding. Korin Calixto MA [facility] 02-08-2025 Miscellaneous Notes Call to pt and notified him of results and recommendations below from Provider. Pt verbalized understanding. Korin Calixto MA Please let the patient know that the xray of his shoulders show advanced arthritis present in both. Recommendation is to continue with his upcoming appointment with orthopedics to see if they can provide an intervention. Sid Frank APRN.CNP documented in this encounter [facility] 02-08-2025 Telephone encounter Note Please let the patient know that the xray of his shoulders show advanced arthritis present in both. Recommendation is to continue with his upcoming appointment with orthopedics to see if they can provide an intervention. Sid Frank APRN.CNP [facility] 02-05-2025 History of Presen t illness Narrative Radiology Service Progress Note PATIENT NAME: Paco Whitney DATE OF SERVICE: February 05, 2025 TIME: 4:04 PM PATIENT IDENTITY VERIFICATION COMPLETED USING TWO (2) IDENTIFIERS: Name and Date of confirmed by patient verbally. FALL SCREENING: Has the patient had 2 falls in the last year or 1 fall with injury or currently using an Ambulatory Assistive Device (Walker, Cane, Wheelchair, Crutches, etc.)? Yes, Patient High Risk for Falls What interventions were put in place to prevent falls during this visit? Offered Assistance with Transfers/Clothing, Instructed Patient to Remain Seated (Not on Exam Table) Until Exam, and Increased Observations by Caregivers PATIENT GENDER DATA: Assigned male at PATIENT RELEVANT IMPLANT DATA REVIEWED: Yes PATIENT PRESENTS WITH AN IMPLANTABLE OR ATTACHED FRUIT FARMWORKER: No RADIOLOGY DEPARTMENT: General X-ray: Exam(s) Completed: Upper Extremity X-Ray(s): Shoulder, AP / TRUE AP / AXILLARY bilateral PERIPHERAL IV DATA: Not applicable SIGNED BY: RT Noam(R) February 05, 2025 4:04 PM documented in this encounter [facility] 02-05-2025 Note HNO ID: [id number] Author: ALFONSO PORTILLO RT(R) Service: ? Author Type: [employer] Type: Progress Notes Filed: 02/05/2025 16:05 Note Text: Radiology Service Progress Note PATIENT NAME: Paco Whitney DATE OF SERVICE: February 05, 2025 TIME: 4:04 PM PATIENT IDENTITY VERIFICATION COMPLETED USING TWO (2) IDENTIFIERS: Name and Date of confirmed by patient verbally. FALL SCREENING: Has the patient had 2 falls in the last year or 1 fall with injury or currently using an Ambulatory Assistive Device (Walker, Cane, Wheelchair, Crutches, etc.)? Yes, Patient High Risk for Falls What interventions were put in place to prevent falls during this visit? Offered Assistance with Transfers/Clothing, Instructed Patient to Remain Seated (Not on Exam Table) Until Exam, and Increased Observations by Caregivers PATIENT GENDER DATA: Assigned male at PATIENT RELEVANT IMPLANT DATA REVIEWED: Yes PATIENT PRESENTS WITH AN IMPLANTABLE OR ATTACHED FRUIT FARMWORKER: No RADIOLOGY DEPARTMENT: General X-ray: Exam(s) Completed: Upper Extremity X-Ray(s): Shoulder, AP / TRUE AP / AXILLARY bilateral PERIPHERAL IV DATA: Not applicable SIGNED BY: RT Noam(R) February 05, 2025 4:04 PM [facility] 02-05-2025 History of Presen t illness Narrative Chief Complaint Patient presents with: 6 Month Exam HPI Paco Whitney is a 89 year old male who presents here today for 6 month follow up. Pt recently discharged from [facility] to SNF as pt is not able to care for pt any longer. She is in [facility] due to Stroke with left side weakness. No bowel, Gi, or urinary issues. GERD: controlled on Protonix 40 mg daily. Chronic shoulder pain: Refers that bilateral shoulder pain seems to be getting worse. Taking Tylenol 650 mg daily prn. Had appt with Ortho that he was not able to keep. Dizziness: Using Meclizine 25 mg as needed which has been helpful. Edema: right ankle and foot swelling, improves over night. Uses diabetic socks. HTN: Taking ramipril 10 mg daily. Not currently checking blood pressure at home. Has had ongoing dizziness in the past, uses meclizine as needed. Stress test was completed in November 2022. AAA: Surgery 2022. Had follow up with Dr. Sultana (surgeon), had an US completed. Has stent in place. Us showed patent graft. No further follow up. COPD: Follows with Pulm Dr. Luna. Chronic neuropathy: Using cane for ambulation. Taking gabapentin 600 mg 3 times daily and Tylenol as needed. He experiences muscle spasms and cramps, particularly in the toes, which he describes as tightening up and hurting. He is currently taking vitamin D and drinking plenty of fluids. He also reports neuropathic pain, especially when standing barefoot on the floor, and is taking gabapentin for this condition. Past medical history, appointments, medications, allergies reviewed. Previous Medical History PAST MEDICAL HISTORY Diagnosis Date AAA (abdominal aortic aneurysm) without rupture Bronchitis, chronic (HCC) Diverticulitis 12/16/2014 Diverticulosis of colon with hemorrhage Essential hypertension, benign Focal atelectasis Rounded atelectasis GERD (gastroesophageal reflux disease) History of eye surgery 03/29/2011 Right eye Other and unspecified hyperlipidemia Peripheral neuropathy Rectal bleeding 12/16/2014 Retinal detachment with retinal defect, unspecified RIGHT EYE, WITH LENSE Rhabdomyolysis 07/18/2003 had as a result of Baycol Unspecified asthma(493.90) Unspecified cause of encephalitis, myelitis, 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 Romeo RPR RETINAL DTCHMNT DRG SUBRETINAL FLUID PC 2003 Laser repair retinal detach, right eye TONSILLECTOMY PRIMARY/SECONDARY <AGE 14 Tonsillectomy VASECTOMY UNI/BI SPX W/POSTOP SEMEN EXAMS 1964 Family History FAMILY HISTORY Problem Relation Age of Onset Hypertension Mother other (Parkinsons disease) Mother Heart Father Heart Brother Heart surgery Cancer Brother of liver. Diabetes Brother Heart disease Son No Family History No Family History No COPD, lung cancer. Patient Allergies ALLERGIES Allergen Reactions Demerol [Meperidine* Mental Status Change Gave too high of dose Baycol Other: See Comments Rhabdoymyolysis Contrast Dye [Iodin* Intolerance pt needs to be oral hydrated after injection,..patient STATES HE IS NOT ALLERGIC TO IV DYE.. Lopid [Gemfibrozil] Other: See Comments Myalgia. Current Medications Current Outpatient Medications on File Prior to Visit Medication Sig ramipril (ALTACE) 10 mg capsule Take 1 capsule by mouth once daily. albuterol (PROVENTIL) 2.5 mg /3 mL (0.083 %) nebulizer solution Use 3 mL via nebulizer every 4 hours as needed for wheezing/shortness of breath. benzonatate (TESSALON PERLE) 100 mg capsule Take 2 capsules by mouth three times a day as needed. guaiFENesin (MUCINEX) 600 mg 12 hr tablet Take 2 tablets by mouth two times a day. SYMBICORT 160-4.5 mcg/actuation inhaler Inhale 2 puffs as instructed two times a day. pantoprazole DR (PROTONIX) 40 mg tablet Take 1 tablet by mouth daily before breakfast. Take on empty stomach, 1/2 hr before meal. tamsulosin (FLOMAX) 0.4 mg TAKE ONE CAPSULE BY MOUTH ONCE DAILY AT BEDTIME albuterol HFA (VENTOLIN HFA) 90 mcg/actuation inhaler Inhale 2 Puffs as instructed every 4 hours as needed for wheezing/shortness of breath. gabapentin (NEURONTIN) 600 mg tablet Take 1 tablet by mouth three times a day for 180 days. meclizine (ANTIVERT) 25 mg tab Take 1 tablet by mouth every 6 hours as needed. FOR DIZZINESS Fenofibrate (LOFIBRA) 160 mg tablet Take 1 tablet by mouth once daily. zlaamxxt-tgdqkzzfz-gurhhyhpcigiv e (CORTISPORIN) 3.5-10,000-1 mg/mL-unit/mL-% otic suspension Use 4 Drops in the ears four times daily. x 1 week clotrimazole-betamethasone (LOTRISONE) cream Apply 1 application to affected area two times a day. As needed guaiFENesin (MUCINEX) 600 mg 12 hr tablet Take 2 tablets by mouth twice daily. As needed acetaminophen (TYLENOL) 500 mg tablet Take 2 tablets by mouth every 6 hours. cholecalciferol (VITAMIN D3) 1,000 unit tab tablet Cholecalciferol (Vit D3) Active 3000 UNIT TWICE A DAY November 23, 2014 8:06am aspirin 81 mg cap Take 1 capsule by mouth once daily. No current facility-administered medications on file prior to visit. Social History Social History Tobacco Use Smoking status: Former Current packs/day: 0.00 Average packs/day: 2.0 packs/day for 32.0 years (64.0 ttl pk-yrs) Types: Cigarettes Start date: 1957 Quit date: 10/30/1990 Years since quittin.2 Smokeless tobacco: Never Tobacco comments: Multiple 4-5 year quits during smoking career. Vaping Use Vaping status: Never Used Substance Use Topics Alcohol use: No Drug use: No EXAM: BP 110/68 Pulse 76 Resp 16 Wt 86.4 kg (190 lb 7.6 oz) SpO2 94% BMI 27.33 kg/m General Appearance: Well appearing, alert, in no acute distress, well-hydrated, well nourished. and Walker. Lungs: Lungs clear to auscultation. No wheezing, rhonchi, rales.. Heart: RRR without murmur, gallop, or rubs. No ectopy. Ext: mild ankle edema, right > left Health Maintenance List DTaP,Tdap,Td Vaccine(1 - Tdap) due on 02/10/2012 Advance Directive Discussion due on 07/18/2024 Medicare Advantage Annual Wellness Visit Never done RSV Vaccine(1 - 1-dose 75+ series) due on 08/01/2025 Shingrix Vaccine(1 of 2) due on 08/01/2025 Covid-19 Vaccine( - season) due on 08/01/2025 Influenza Vaccine(1) due on 03/18/2025 Depression Screening due on 08/01/2025 Anxiety Screening due on 08/01/2025 Diabetes Screening due on 01/31/2028 Pneumococcal Vaccine: 50+ Completed Data reviewed Results Only on 01/30/2025 Component Date Value Protein, Total 01/30/2025 6.5 Albumin 01/30/2025 3.8 (L) Calcium, Total 01/30/2025 10.2 Bilirubin, Total 01/30/2025 0.9 Alkaline Phosphatase 01/30/2025 91 AST 01/30/2025 29 ALT 01/30/2025 15 Glucose 01/30/2025 90 BUN 01/30/2025 29 (H) Creatinine 01/30/2025 1.11 Sodium 01/30/2025 142 Potassium 01/30/2025 4.8 Chloride 01/30/2025 107 CO2 01/30/2025 25 Anion Gap 01/30/2025 10 Estimated Glomerular [place]* 01/30/2025 64 Cholesterol, Total 01/30/2025 143 Triglyceride 01/30/2025 158 (H) HDL Cholesterol 01/30/2025 29 (L) LDL Cholesterol, Calcula* 01/30/2025 86 Non HDL Cholesterol 01/30/2025 114 VLDL Cholesterol 01/30/2025 25 TC:HDL Ratio 01/30/2025 4.93 LDL:HDL Ratio 01/30/2025 2.97 (H) Fasting Time 01/30/2025 12 Hemoglobin A1C 01/30/2025 4.7 Estimated Average Glucose 01/30/2025 88 1. Essential hypertension, benign (I10) Blood pressure is well-controlled. Continue current antihypertensive regimen. 2. Abdominal aortic aneurysm (AAA) without rupture, unspecified part (I71.40) Previously evaluated by vascular surgery; no current follow-up required. Monitor for any new symptoms or changes. 3. Hyperlipidemia, unspecified hyperlipidemia type (E78.5) Recent lipid panel shows cholesterol at 143 mg/dL, indicating good control. Continue current lipid-lowering therapy. 4. Chronic pain of both shoulders (M25.511) Primary osteoarthritis of both shoulders (M19.011) Persistent pain and crepitus in both shoulders; previous orthopedic consultation with Dr. Noriega recommended imaging prior to intervention. - Ordered bilateral shoulder X-rays. - Referred back to Dr. Noriega for further evaluation and management. 5. Neuropathy (G62.9) Experiencing neuropathic pain, particularly when standing barefoot; currently managed with gabapentin. Continue gabapentin therapy. 6. Pulmonary emphysema, unspecified emphysema type (HCC) (J43.9) Under the care of charting clerk Dr. Luna, with a follow-up appointment scheduled for April 02. Continue current pulmonary management and attend scheduled follow-up with Dr. Luna. 7. Pedal edema (R60.0) Noted swelling in the lower extremities, particularly around the ankles, which reduces overnight. Monitor edema; consider compression stockings if swelling persists or worsens. Follow up in 6 months Recording using [employer] software for draft documentation of the visit was discussed with the patient/authorized manufacturers representative; all questions welcomed and answered. Patient/authorized manufacturers representative agreed to proceed I agree with the Chief Complaint, ROS, and Past Histories independently gathered by the clinical program support specialist and the remaining scribed note accurately describes my personal service to the patient. Medical Decision Making: Problems: Moderate: 2+ stable chronic illnesses Data: Unique test result(s) reviewed: 3+ Unique test(s) ordered: 1 Risk: Moderate: Drug management Medical Decision Making Level: 4 - Moderate Clarice Murillo MD The documentation for this note was completed by Marianne Escobar MA acting as scribe for Clarice Murillo MD. February 05, 2025 2:43 PM. Marianne Escobar MA documented in this encounter [facility] 02-05-2025 Note HNO ID: [id number] Author: CLARICE MURILLO MD Service: ? Author Type: Physician Type: Progress Notes Filed: 02/05/2025 15:42 Note Text: Chief Complaint Patient presents with: 6 Month Exam HPI Paco Whitney is a 89 year old male who presents here today for 6 month follow up. Pt recently discharged from [facility] to SNF as pt is not able to care for pt any longer. She is in [facility] due to Stroke with left side weakness. No bowel, Gi, or urinary issues. GERD: controlled on Protonix 40 mg daily. Chronic shoulder pain: Refers that bilateral shoulder pain seems to be getting worse. Taking Tylenol 650 mg daily prn. Had appt with Ortho that he was not able to keep. Dizziness: Using Meclizine 25 mg as needed which has been helpful. Edema: right ankle and foot swelling, improves over night. Uses diabetic socks. HTN: Taking ramipril 10 mg daily. Not currently checking blood pressure at home. Has had ongoing dizziness in the past, uses meclizine as needed. Stress test was completed in November 2022. AAA: Surgery 2022. Had follow up with Dr. Sultana (surgeon), had an US completed. Has stent in place. Us showed patent graft. No further follow up. COPD: Follows with Pulm Dr. Luna. Chronic neuropathy: Using cane for ambulation. Taking gabapentin 600 mg 3 times daily and Tylenol as needed. He experiences muscle spasms and cramps, particularly in the toes, which he describes as tightening up and hurting. He is currently taking vitamin D and drinking plenty of fluids. He also reports neuropathic pain, especially when standing barefoot on the floor, and is taking gabapentin for this condition. Past medical history, appointments, medications, allergies reviewed. Previous Medical History PAST MEDICAL HISTORY Diagnosis Date AAA (abdominal aortic aneurysm) without rupture Bronchitis, chronic (HCC) Diverticulitis 12/16/2014 Diverticulosis of colon with hemorrhage Essential hypertension, benign Focal atelectasis Rounded atelectasis GERD (gastroesophageal reflux disease) History of eye surgery 03/29/2011 Right eye Other and unspecified hyperlipidemia Peripheral neuropathy Rectal bleeding 12/16/2014 Retinal detachment with retinal defect, unspecified RIGHT EYE, WITH LENSE Rhabdomyolysis 07/18/2003 had as a result of Baycol Unspecified asthma(493.90) Unspecified cause of encephalitis, myelitis, 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 Romeo RPR RETINAL DTCHMNT DRG SUBRETINAL FLUID PC 2003 Laser repair retinal detach, right eye TONSILLECTOMY PRIMARY/SECONDARY Tonsillectomy VASECTOMY UNI/BI SPX W/POSTOP SEMEN EXAMS 1964 Family History FAMILY HISTORY Problem Relation Age of Onset Hypertension Mother other (Parkinsons disease) Mother Heart Father Heart Brother Heart surgery Cancer Brother of liver. Diabetes Brother Heart disease Son No Family History No Family History No COPD, lung cancer. Patient Allergies ALLERGIES Allergen Reactions Demerol [Meperidine* Mental Status Change Gave too high of dose Baycol Other: See Comments Rhabdoymyolysis Contrast Dye [Iodin* Intolerance pt needs to be oral hydrated after injection,..patient STATES HE IS NOT ALLERGIC TO IV DYE.. Lopid [Gemfibrozil] Other: See Comments Myalgia. Current Medications Current Outpatient Medications on File Prior to Visit Medication Sig ramipril (ALTACE) 10 mg capsule Take 1 capsule by mouth once daily. albuterol (PROVENTIL) 2.5 mg /3 mL (0.083 %) nebulizer solution Use 3 mL via nebulizer every 4 hours as needed for wheezing/shortness of breath. benzonatate (TESSALON PERLE) 100 mg capsule Take 2 capsules by mouth three times a day as needed. guaiFENesin (MUCINEX) 600 mg 12 hr tablet Take 2 tablets by mouth two times a day. SYMBICORT 160-4.5 mcg/actuation inhaler Inhale 2 puffs as instructed two times a day. pantoprazole DR (PROTONIX) 40 mg tablet Take 1 tablet by mouth daily before breakfast. Take on empty stomach, 1/2 hr before meal. tamsulosin (FLOMAX) 0.4 mg TAKE ONE CAPSULE BY MOUTH ONCE DAILY AT BEDTIME albuterol HFA (VENTOLIN HFA) 90 mcg/actuation inhaler Inhale 2 Puffs as instructed every 4 hours as needed for wheezing/shortness of breath. gabapentin (NEURONTIN) 600 mg tablet Take 1 tablet by mouth three breana (more content not included)... [facility] 11-19-2024 Telephone encounter Note The following approved medication requests have been transmitted electronically. Requested Prescriptions Pending Prescriptions Disp Refills ramipril (ALTACE) 10 mg capsule 90 capsule 3 Sig: Take 1 capsule by mouth once daily. Sid Frank APRN.CNP [facility] 11-19-2024 Miscellaneous Notes The following approved medication requests have been transmitted electronically. Requested Prescriptions Pending Prescriptions Disp Refills ramipril (ALTACE) 10 mg capsule 90 capsule 3 Sig: Take 1 capsule by mouth once daily. Sid Frank APRN.CNP Prescription Refill Information The patient has been identified by name and date of : Yes Caregiver verified no other encounters exist for this prescription request: Yes Caregiver confirmed with patient/requestor that no other refills are due, in the near future, with this provider at this time: Yes The last office visit in the department: Does the patient have a future office visit with this provider/department: Yes Requested Prescriptions Pending Prescriptions Disp Refills ramipril (ALTACE) 10 mg capsule 90 capsule 3 Sig: Take 1 capsule by mouth once daily. Monet Santiago November 19, 2024 8:50 AM documented in this encounter [facility] 11-19-2024 Telephone encounter Note Prescription Refill Information The patient has been identified by name and date of : Yes Caregiver verified no other encounters exist for this prescription request: Yes Caregiver confirmed with patient/requestor that no other refills are due, in the near future, with this provider at this time: Yes The last office visit in the department: Does the patient have a future office visit with this provider/department: Yes Requested Prescriptions Pending Prescriptions Disp Refills ramipril (ALTACE) 10 mg capsule 90 capsule 3 Sig: Take 1 capsule by mouth once daily. Monet Matos [facility] November 19, 2024 8:50 AM [facility] 11-10-2024 Discharge summary Note Date/Time November 10, 2024 9:47am [facility] Medical Records Department [address] [place] [address] Instructions for Home/Discharge Instructions 11/10/24 0940 MR#: [id number] Acct: [id number] Name: PACO WHITNEY Rep #:[id number] : 1935 89 From: Riky Evans PCP: Dr. Clarice Murillo MD Status:AD M IN Discharge Instructions DC O2, CPAP, BIPAP needs Home O2 Discharge instructions: No Follow Up Care Test Results: Test results from this visit will be discussed in further detail at your follow-up appointment, if applicable. Discharge Plan Admission Admit Date/Time: 11/08/24 20:32 Primary Reason for Your Visit: Left hand possible small hematoma secondary to small trauma and cellulitis Attending Provider: Riky Li Primary Care Provider: Clarice Murillo Consulting Providers: Evelyn Doss Instructions Additional Instructions / Restrictions: Plastic surgery discharge instructions Elevate left upper extremity above heart, especially while sleeping but during the course of the day as well. Return if left hand and wrist becomes hot and swollen or if there is any fevers or chills. Follow-up with me in clinic in 3 days at [facility] on Tuesday, 13 November 2024, Discharge Orders/Prescriptions Prescriptions: New polyethylene glycol 3350 [Miralax] 17 gram/dose powder 17 g PO DAILY 30 Days Qty: 510 0RF amoxicillin-pot clavulanate 875-125 mg tablet 1 tab PO BID Qty: 14 0RF Continued albuterol sulfate 1 INHALER inhaler 2 puff inhalation Q4H PRN (Reason: Sob &/Or Wheezing) ramipril 10 MG capsule 10 mg PO DAILY Patient Comments: BLOOD PRESSURE pantoprazole 40 MG tablet 40 mg PO DAILY Patient Comments: ACID REFLUX tamsulosin 0.4 MG capsule 0.4 mg PO QHS Patient Comments: PROSTATE cholecalciferol (vitamin D3) 1,000 UNIT tablet 3,000 unit PO BID budesonide-formoterol 1 INHALER inhaler 2 puff inhalation BID fenofibrate 160 MG tablet 160 mg PO DAILY gabapentin 600 mg tablet 600 mg PO TID benzonatate 100 mg capsule 200 mg PO TID PRN (Reason: cough) latanoprost 0.005 % drops 1 drp ophthalmic (eye) DAILY albuterol sulfate 2.5 mg /3 mL (0.083 %) solution for nebulization 2.5 mg continuous nebulization Q4H PRN (Reason: wheezing) Patient Comments: PT HAS NOT USED YET Discontinued loperamide 2 MG capsule 2 mg PO Q2H PRN (Reason: Diarrhea) Referrals / Follow Up: Clarice Murillo MD [Primary Care Provider] - Within 2 Weeks Siska,Dennis, MD [Med Staff - Active Staff] - (Follow-up in 3 days at [facility] in clinic) Disposition Disposition (needs filled in before D/C Order can be placed): Home, Self Care 11/10/24 0947<Electronically signed by Riky Li MD>Riky Li MD CC: Dr. Evelyn Doss, DO; Dr. Clarice Murillo MD ~ Signed [facility] Work Phone: 1(312) 596-152904-26-2025 Discharge summary Author Riky Li [facility] Note Date/Time November 10, 2024 10: 34am [facility] Medical Records Department [address] [place] [address] Discharge Summary 11/10/24946 MR#: [id number] Acct: [id number] Name: PACO WHITNEY Rep #:[id number] : 1935 89 From: Riky Evans PCP: Dr. Clarice Murillo MD Status:AD M IN Location: [facility] [id number] Providers Date of Admission: 11/08/24 Date of Discharge: 11/10/24 Primary Care Physician: Dr. Clarice Murillo MD Reason For Visit: LEFT WRIST CELLULITIS WITH POSSIBLE SEPTIC Diagnosis Discharge Diagnosis (1) Swelling of joint of left wrist: Status: Acute Code(s): M25.432 - Effusion, left wrist Plan This 89-year-old gentleman is being admitted for swelling pain redness of his left wrist started about 6 hours prior to presentation. No trauma. Low-grade fever Tmax 99.5 Fahrenheit. 1. Left wrist Cellulitis, concern for septic arthritis versus inflammatory/crystal induced arthritis: Patient is being admitted to MedSurg floor. Patient had joint tap, no crystals on the bloody joint aspirate. Left wrist and hand wrapped. Left upper extremity elevation with arm elevation. Left hand x-ray is negative for acute displaced fracture or dislocation but severe osteopenia. Advanced arthritic changes, reported concerning for inflammatory/crystalline arthropathy and superimposed severe osteoarthritis. Gram stain shows 4+ RBC, no organisms seen. Severe on broad- spectrum antibioticIV Zosyn. Pain control. 11/10: Hand is wrapped. Left hand photo reviewed and shows decreased edema swelling, discoloration/purpleish discoloration from reabsorb hematoma Discharged on empiric 1 week of Augmentin 875 mg twice daily As per nursing staff, patient complained of constipation and has not moved BM for couple days. He was on Imodium as needed at home that is discontinued. Dulcolax 10 mg oral and suppository ordered. MiraLAX 17 g orally daily ordered. Follow with PCP Patient does not know why Imodium was on his home med list. 2. CKD stage IIIb with dehydration: Patient baseline creatinine runs about 1.26- 1.30. BUN elevated 37, creatinine 1.26. IV fluids given. Be creatinine improved to 1.17. 11/10: Creatinine 1.19. BUN normal. 3. Overweight; with BMI of 29.2 KG per square meter 4. Essential hypertension; on ramipril -BP controlled 5. Hypertriglyceridemia; on fenofibrate. Lipid profile shows HDL 29 low but otherwise in normal range. 6. History of asthma/COPD; on budesonide-formoterol twice daily - Stable no evidence of acute flare at this time. 7. PAD - Stable. 8. Peripheral neuropathy; on gabapentin 3 times daily - Continue current regimen. 9. BPH; on tamsulosin - Maintain current therapy. 10. GERD; on pantoprazole - Resume PPI. DVT prophylaxis - Heparin 5,000U sq BID plus SCD's. Discharge medication reconciliation done. Discharge follow-up instructions completed. Discharge process discussed with the patient and all questions wereanswered to patient's satisfaction. Follow with PCP in 1 to 2 weeks Total time spent, exact 35 minutes on discharge meds reconciliation, examination, coordination of care with nurses and ancillary staff, review of imaging and blood test and discussion with the patient on follow-up instructions. Medications at Discharge Home Medications albuterol sulfate 90 mcg/actuation aerosol inhaler 2 puff inhalation Q4H PRN Sob&/Or Wheezing 07/05/14 ramipril 10 mg capsule 10 mg PO DAILY BP 07/05/14 pantoprazole 40 mg tablet,delayed release 40 mg PO DAILY gerd 08/21/14 cholecalciferol (vitamin D3) 25 mcg (1,000 unit) tablet 3,000 unit PO BID Supplement 11/23/14 tamsulosin 0.4 mg capsule 0.4 mg PO QHS Prostate 11/23/14 budesonide-formoterol HFA 160 mcg-4.5 mcg/actuation aerosol inhaler 2 puff inhalation BID Breathing 06/28/18 fenofibrate 160 mg tablet 160 mg PO DAILY cholesterol 04/10/19 albuterol sulfate 2.5 mg/3 mL (0.083 %) solution for nebulization 2.5 mg continuous nebulization Q4H PRN wheezing 11/08/24 benzonatate 100 mg capsule 200 mg PO TID PRN cough 11/08/24 gabapentin 600 mg tablet 600 mg PO TID 11/08/24 latanoprost 0.005 % eye drops 1 drp ophthalmic (eye) DAILY 11/08/24 amoxicillin 875 mg-potassium clavulanate 125 mg tablet 1 tab PO BID #14 tabs 11/10/24 polyethylene glycol 3350 17 gram/dose oral powder (Miralax) 17 g PO DAILY 1 month #510 grams 11/10/24 Physical Exam Narrative Seen and examined Left hand photo reviewed. Shows purplish discoloration probably from hematoma. Cellulitis looks better. Patient has intermittent history of about 10 pack years of smoking. He also worked in [employer] environment. Has history of COPD Physical exam General: Alert, Oriented x3, Cooperative HEENT: Atraumatic, PERRLA, EOMI, Normocephalic Oral: No Gingival or Mucosal Lesions/ Ulcerations Neck: Supple, No JVD, Negative Carotid Bruits Chest wall/Lungs: Air entry diminished in bilateral lung bases. Mild bilateralexpiratory rhonchi Cardiovascular: Regular rate, Regular Rhythm, Normal S1, Normal S2, No M/G/R Abdomen: Bowel Sounds Present, Soft, Non Tender, Non-Distended : No dysuria. No renal angle tenderness. No suprapubic tenderness. Extremities: No edema, Capillary Refill Less than 3 Seconds Skin: Redness swelling induration of left hand mainly extending proximally from left thumb to radial aspect of wrist, improved. Covered with dressing. Musculoskeletal: Bony deformity/arthritic changes of right wrist, right knee suggestive of degenerative arthritis. Left knee TKR. Neurological: Cranial nerves II-XII grossly intact, DTR 2+/4. No acute focal neurological deficit. Psych/Mental Status: Normal Affect, Appropriate. Weight / BMI Weight Weight: 200 lb 6.403 oz Body Mass Index (BMI) 29.7 ABG / Lab / Microbiology Data 11/10/24 03:56 11/10/24 03:56 Laboratory: Laboratory Results - last 24 hr 11/10/24 03:56: WBC 7.9, RBC 4.01 L, Hgb 12.9 L, Hct 38.7 L, MCV 96.5 H, MCH 32.2 H, MCHC 33.3, RDW Std Deviation 49.6 H, RDW Coeff of Nohemi 14.0, Plt Count 181, MPV 9.4, Immature Gran % (Auto) 0.400, Neut % (Auto) 61.9, Lymph % (Auto) 24.1, Pitt % (Auto) 10.6 H, Eos % (Auto) 2.4, Baso % (Auto) 0.6, Absolute Neuts (auto) 4.9, Absolute Lymphs (auto) 1.91, Nucleated RBC % 0, Sodium 137, Potassium 4.3, Chloride 105, Carbon Dioxide 24.1, Anion Gap 9, BUN 23 H, Creatinine 1.19, Estim Creat Clear Calc 48.56 L, Est GFR (MDRD) Non-Af 59 L, BUN/Creatinine Ratio 19.7, Glucose 101 H, Calcium 9.1, Phosphorus 3.3 Microbiology: Microbiology 11/08/24 19:21 Fluid - Synovial (joint) Gram Stain - Final 11/08/24 19:21 Fluid - Synovial (joint) Body Fluid Culture - Preliminary No growth-Final to follow D/C Instructions DC O2, CPAP, BIPAP Needs Home O2 Discharge instructions: No Meaningful Use Info Meaningful Use Meaningful Use Diagnoses (Choose all that apply): None applicable Ischemic Stroke Statin Dosing Therapy Reference: STATIN DOSE THERAPY REFERENCE: * Patients > 75 years receive moderate or high dose statin therapy. * Patients 75 years or YOUNGER should receive HIGH intensity statin dose unless contraindicated. You will be required to document reason for non-treatment if statin daily dose does not meet guidelines. HIGH DOSE STATIN THERAPY DAILY Atorvastatin > than or = to 40 mg Rosuvastatin > than or = to 20 mg Amlodipine + Atorvastatin > than or = to 2.5/40 mg Ezetimibe + Simvastatin 10/80 mg Simvastatin 80mg Discharge Plan Admission Admit Date/Time: 11/08/24 20:32 Primary Reason for Your Visit: Left hand possible small hematoma secondary to small trauma and cellulitis Attending Provider: Riky Li Primary Care Provider: Clarice Murillo Consulting Providers: Evelyn Doss Instructions Additional Instructions / Restrictions: Plastic surgery discharge instructions Elevate left upper extremity above heart, especially while sleeping but during the course of the day as well. Return if left hand and wrist becomes hot and swollen or if there is any fevers or chills. Follow-up with me in clinic in 3 days at [facility] on Tuesday, 13 November 2024, Discharge Orders/Prescriptions Prescriptions: New polyethylene glycol 3350 [Miralax] 17 gram/dose powder 17 g PO DAILY 30 Days Qty: 510 0RF amoxicillin-pot clavulanate 875-125 mg tablet 1 tab PO BID Qty: 14 0RF Continued albuterol sulfate 1 INHALER inhaler 2 puff inhalation Q4H PRN (Reason: Sob &/Or Wheezing) ramipril 10 MG capsule 10 mg PO DAILY Patient Comments: BLOOD PRESSURE pantoprazole 40 MG tablet 40 mg PO DAILY Patient Comments: ACID REFLUX tamsulosin 0.4 MG capsule 0.4 mg PO QHS Patient Comments: PROSTATE cholecalciferol (vitamin D3) 1,000 UNIT tablet 3,000 unit PO BID budesonide-formoterol 1 INHALER inhaler 2 puff inhalation BID fenofibrate 160 MG tablet 160 mg PO DAILY gabapentin 600 mg tablet 600 mg PO TID benzonatate 100 mg capsule 200 mg PO TID PRN (Reason: cough) latanoprost 0.005 % drops 1 drp ophthalmic (eye) DAILY albuterol sulfate 2.5 mg /3 mL (0.083 %) solution for nebulization 2.5 mg continuous nebulization Q4H PRN (Reason: wheezing) Patient Comments: PT HAS NOT USED YET Discontinued loperamide 2 MG capsule 2 mg PO Q2H PRN (Reason: Diarrhea) Referrals / Follow Up: Clarice Murillo MD [Primary Care Provider] - Within 2 Weeks Dennis Rocha MD [Med Staff - Active Staff] - (Follow-up in 3 days at [facility] in clinic) Disposition Disposition (needs filled in before D/C Order can be placed): Home, Self Care Charges/Coding Visit Charges Inpatient E&M: 37981 Disch Hosp >30min 11/10/24 1034 <Electronically signed by Riky Li MD> Cosigner Signature (if applicable): CC: Dr. Clarice Murillo MD; Dr. Riky Li MD; Dr. Dennis Rocha MD~ Signed [facility] Work Phone: 1(964) 360-799104-26-2025 Progress note Author Dennis Rocha [facility] Note Date/Time November 10, 2024 9:4 1am [facility] Medical Records Department [address] [place] [address] Progress Note - Surgery 11/10/24 0938 MR#: [id number] Acct: [id number] Name: PACO WHITNEY Rep #:[id number] : 1935 89 From: Dennis Rocha MD PCP: Dr. Clarice Murillo MD Status:AD M IN Location: [place] [id number] Subjective Subjective Doing well. Reports that pain has dissipated significantly from the left wrist and hand with elevation. No fevers or chills. Patient thinking back on , 08 November 2024 the date of admission and reports that he may have been carrying some grocery bags that may have caused the shear force leading to underlying hematoma. Objective Data Objective Data Vital Signs: Vital Signs Temp Pulse Resp BP Pulse Ox O2 Del Method 98.8 F 82 18 118/62 94 Room Air 11/10/24 05:40 11/10/24 07:32 11/10/24 07:32 11/10/24 05:40 11/10/24 07:32 11/10/24 07:32 Oxygen Delivery Method Room Air Weight: 200 lb 6.403 oz Body Mass Index (BMI) 29.7 Intake & Output: Intake and Output for Last 24 Hours 11/08/24 11/09/24 11/10/24 23:59 23:59 23:59 Intake Total 100 / 200 1199.79 / 1199.79 1050 / 1050 Output Total 1050 / 1050 550 / 550 Balance 100 / 200 149.79 / 149.79 500 / 500 Lab / Micro Data 11/10/24 03:56 11/10/24 03:56 Labs: Laboratory Results - last 24 hr 11/10/24 03:56: WBC 7.9, RBC 4.01 L, Hgb 12.9 L, Hct 38.7 L, MCV 96.5 H, MCH 32.2 H, MCHC 33.3, RDW Std Deviation 49.6 H, RDW Coeff of Nohemi 14.0, Plt Count 181, MPV 9.4, Immature Gran % (Auto) 0.400, Neut % (Auto) 61.9, Lymph % (Auto) 24.1, Pitt % (Auto) 10.6 H, Eos % (Auto) 2.4, Baso % (Auto) 0.6, Absolute Neuts (auto) 4.9, Absolute Lymphs (auto) 1.91, Nucleated RBC % 0, Sodium 137, Potassium 4.3, Chloride 105, Carbon Dioxide 24.1, Anion Gap 9, BUN 23 H, Creatinine 1.19, Estim Creat Clear Calc 48.56 L, Est GFR (MDRD) Non-Af 59 L, BUN/Creatinine Ratio 19.7, Glucose 101 H, Calcium 9.1, Phosphorus 3.3 Micro: Microbiology 11/08/24 19:21 Fluid - Synovial (joint) Gram Stain - Final 11/08/24 19:21 Fluid - Synovial (joint) Body Fluid Culture - Preliminary No growth-Final to follow Physical Exam Narrative Left Upper Extremity Inspection: Significant improvement of left upper extremity swelling around the hand and wrist with 24 hours of elevation. There is a small soft hematoma on the radial side of the hand near the thumb base. No skin breaks and tight skin/pressure or tension. No induration or drainage. Palpation: No pain with axial loading today. Motor: Able to bend and extend all MP, PIP, and DIP joints. Sensory: Intact to light touch on the radial and ulnar borders. Vascular: Finger tips are warm and well perfused with <2 second capillary refill. Assessment & Plan Assessment/Plan (1) Swelling of joint of left wrist: PLAN: No crystals on the bloody joint aspirate. Negative cultures LUE elevation with arm elevator (above heart) as well as compression wrap. Okay for discharge today and agree with empiric course of antibiotics. Likely a hematoma secondary to small trauma. Continue elevation at home and follow-up with me in 3 days at [facility] in clinic. Charges/Coding Visit Charges Inpatient E&M: 95389 Subs Hosp L1 11/10/24 0940 <Electronically signed by Dennis Rocha MD> Cosigner Signature (if applicable): CC: ~ Signed ADDENDUM by Dr. Dennis Rocha MD on 11/10/24 at 0941 Addendum Afebrile with stable vital signs Normal white blood cell count 11/10/24 0941<Electronically signed by Dennis Rocha MD> Cosigner Signature (if applicable): cc: ~* Signed [facility] Work Phone: 1(102) 265-797504-26-2025 Discharge summary [facility] [facility] Medical Records Department [address] [place] [address] Discharge Summary 11/10/24 0947 MR#: [id number] Acct: [id number] Name: PACO WHITNEY Rep #:[id number] : 1935 89 From: Riky Evans PCP: Dr. Clarice Murillo MD Status:AD M IN [id number] Prov[facility] Date of Admission: 11/08/24 Date of Discharge: 11/10/24 Primary Care Physician: Dr. Clarice Murillo MD Reason For Visit: LEFT WRIST CELLULITIS WITH POSSIBLE SEPTIC Diagnosis Discharge Diagnosis (1) Swelling of joint of left wrist: Status: Acute Code(s): M25.432 - Effusion, left wrist Plan This 89-year-old gentleman is being admitted for swelling pain redness of his left wrist started about 6 hours prior to presentation. No trauma. Low-grade fever Tmax 99.5 Fahrenheit. 1. Left wrist Cellulitis, concern for septic arthritis versus inflammatory/crystal induced arthritis: Patient is being admitted to MedSurg floor. Patient had joint tap, no crystals on the bloody joint aspirate. Left wrist and hand wrapped. Left upper extremity elevation with arm elevation. Left hand x-ray is negative for acute displaced fracture or dislocation but severe osteopenia. Advanced arthritic changes, reported concerning for inflammatory/crystalline arthropathy and superimposed severe osteoarthritis. Gram stain shows 4+ RBC, no organisms seen. Severe on broad-spectrum antibioticIV Zosyn. Pain control. 11/10: Hand is wrapped. Left hand photo reviewed and shows decreased edema swelling, discoloration/purpleish discoloration from reabsorb hematoma Discharged on empiric 1 week of Augmentin 875 mg twice daily As per nursing staff, patient complained of constipation and has not moved BM for couple days. He was on Imodium as needed at home that is discontinued. Dulcolax 10 mg oral and suppository ordered. MiraLAX 17 g orally daily ordered. Follow with PCP Patient does not know why Imodium was on his home med list. 2. CKD stage IIIb with dehydration: Patient baseline creatinine runs about 1.26- 1.30. BUN elevated 37, creatinine 1.26. IV fluids given. Be creatinine improved to 1.17. 11/10: Creatinine 1.19. BUN normal. 3. Overweight; with BMI of 29.2 KG per square meter 4. Essential hypertension; on ramipril -BP controlled 5. Hypertriglyceridemia; on fenofibrate. Lipid profile shows HDL 29 low but otherwise in normal range. 6. History of asthma/COPD; on budesonide-formoterol twice daily - Stable no evidence of acute flareat this time. 7. PAD - Stable. 8. Peripheral neuropathy; on gabapentin 3 times daily - Continue current regimen. 9. BPH; on tamsulosin - Maintain current therapy. 10. GERD; on pantoprazole - Resume PPI. DVT prophylaxis - Heparin 5,000U sq BID plus SCD's. Discharge medication reconciliation done. Discharge follow-up instructions completed. Discharge process discussed with the patient and all questions wereanswered to patient's satisfaction. Follow with PCP in 1 to 2 weeks Total time spent, exact 35 minutes on discharge meds reconciliation, examination, coordination of care with nurses and ancillary staff, review of imaging and blood test and discussion with the patient on follow-up instructions. Medications at Discharge Home Medications albuterol sulfate 90 mcg/actuation aerosol inhaler 2 puff inhalation Q4H PRN Sob&/Or Wheezing 07/05/14 ramipril 10 mg capsule 10 mg PO DAILY BP 07/05/14 pantoprazole 40 mg tablet,delayed release 40 mg PO DAILY gerd 08/21/14 cholecalciferol (vitamin D3) 25 mcg (1,000 unit) tablet 3,000 unit PO BID Supplement 11/23/14 tamsulosin 0.4 mg capsule 0.4 mg PO QHS Prostate 11/23/14 budesonide-formoterol HFA 160 mcg-4.5 mcg/actuation aerosol inhaler 2 puff inhalation BID Sooyxfbzf46/12/18 fenofibrate 160 mg tablet 160 mg PO DAILY cholesterol 04/10/19 albuterol sulfate 2.5 mg/3 mL (0.083 %) solution for nebulization 2.5 mg continuous nebulization Q4H PRN wheezing 11/08/24 benzonatate 100 mg capsule 200 mg PO TID PRN cough 11/08/24 gabapentin 600 mg tablet 600 mg PO TID 11/08/24 latanoprost 0.005 % eye drops 1 drp ophthalmic (eye) DAILY 11/08/24 amoxicillin 875 mg-potassium clavulanate 125 mg tablet 1 tab PO BID #14 tabs 11/10/24 polyethylene glycol 3350 17 gram/dose oral powder (Miralax) 17 g PO DAILY 1 month #510 grams 11/10/24 Physical Exam Narrative Seen and examined Left hand photo reviewed. Shows purplish discoloration probably from hematoma. Cellulitis looks better. Patient has intermittent history of about 10 pack years of smoking. He also worked in [employer] environment. Has history of COPD Physical exam General: Alert, Oriented x3, Cooperative HEENT: Atraumatic, PERRLA, EOMI, Normocephalic Oral: No Gingival or Mucosal Lesions/ Ulcerations Neck: Supple, No JVD, Negative Carotid Bruits Chest wall/Lungs: Air entry diminished in bilateral lung bases. Mild bilateralexpiratory rhonchi Cardiovascular: Regular rate, Regular Rhythm, Normal S1, Normal S2, No M/G/R Abdomen: Bowel Sounds Present, Soft, Non Tender, Non-Distended : No dysuria. No renal angle tenderness. No suprapubic tenderness. Extremities: No edema, Capillary Refill Less than 3 Seconds Skin: Redness swelling induration of left hand mainly extending proximally from left thumb to radial aspect of wrist, improved. Covered with dressing. Musculoskeletal: Bony deformity/arthritic changes of right wrist, right knee suggestive of degenerative arthritis. Left knee TKR. Neurological: Cranial nerves II-XII grossly intact, DTR 2+/4. No acute focal neurological deficit. Psych/Mental Status: Normal Affect, Appropriate. Weight / BMI Weight Weight: 200 lb 6.403 oz Body Mass Index (BMI) 29.7 ABG / Lab / Microbiology Data 11/10/24 03:56 11/10/24 03:56 Laboratory: Laboratory Results - last 24 hr 11/10/24 03:56: WBC 7.9, RBC 4.01 L, Hgb 12.9 L, Hct 38.7 L, MCV 96.5 H, MCH 32.2 H, MCHC 33.3, RDWStd Deviation 49.6 H, RDW Coeff of Nohemi 14.0, Plt Count 181, MPV 9.4, Immature Gran % (Auto) 0.400, Neut % (Auto) 61.9, Lymph % (Auto) 24.1, Pitt % (Auto) 10.6 H, Eos % (Auto) 2.4, Baso % (Auto) 0.6, Absolute Neuts (auto) 4.9, Absolute Lymphs (auto) 1.91, Nucleated RBC % 0, Sodium 137, Potassium 4.3, Chloride 105, Carbon Dioxide 24.1, Anion Gap 9, BUN 23 H, Creatinine 1.19, Estim Creat Clear Calc 48.56 L, Est GFR (MDRD) Non-Af 59 L, BUN/Creatinine Ratio 19.7, Glucose 101 H, Calcium 9.1, Phosphorus 3.3 Microbiology: Microbiology 11/08/24 19:21 Fluid - Synovial (joint) Gram Stain - Final 11/08/24 19:21 Fluid - Synovial (joint) Body Fluid Culture - Preliminary No growth-Final to follow D/C Instructions DC O2, CPAP, BIPAP Needs Home O2 Discharge instructions: No Meaningful Use Info Meaningful Use Meaningful Use Diagnoses (Choose all that apply): None applicable Ischemic Stroke Statin Dosing Therapy Reference: STATIN DOSE THERAPY REFERENCE: * Patients > 75 years receive moderate or high dose statin therapy. * Patients 75 years or YOUNGER should receive HIGH intensity statin dose unless contraindicated. You will be required to document reason for non-treatment if statin daily dose does not meet guidelines. HIGH DOSE STATIN THERAPY DAILY Atorvastatin > than or = to 40 mg Rosuvastatin > than or = to 20 mg Amlodipine + Atorvastatin > than or = to 2.5/40 mg Ezetimibe + Simvastatin 10/80 mg Simvastatin 80mg Discharge Plan Admission Admit Date/Time: 11/08/24 20:32 Primary Reason for Your Visit: Left hand possible small hematoma secondary to small trauma and cellulitis Attending Provider: Riky Li Primary Care Provider: Clarice Murillo Consulting Providers: Evelyn Doss Instructions Additional Instructions / Restrictions: Plastic surgery discharge instructions Elevate left upper extremity above heart, especially while sleeping but during the course of the day as well. Return if left hand and wrist becomes hot and swollen or if there is any fevers or chills. Follow-up with me in clinic in 3 days at [facility] on Radha, 13 November 2024, Discharge Orders/Prescriptions Prescriptions: New polyethylene glycol 3350 [Miralax] 17 gram/dose powder 17 g PO DAILY 30 Days Qty: 510 0RF amoxicillin-pot clavulanate 875-125 mg tablet 1 tab PO BID Qty: 14 0RF Continued albuterol sulfate 1 INHALER inhaler 2 puff inhalation Q4H PRN (Reason: Sob &/Or Wheezing) ramipril 10 MG capsule 10 mg PO DAILY Patient Comments: BLOOD PRESSURE pantoprazole 40 MG tablet 40 mg PO DAILY Patient Comments: ACID REFLUX tamsulosin 0.4 MG capsule 0.4 mg PO QHS Patient Comments: PROSTATE cholecalciferol (vitamin D3) 1,000 UNIT tablet 3,000 unit PO BID budesonide-formoterol 1 INHALER inhaler 2 puff inhalation BID fenofibrate 160 MG tablet 160 mg PO DAILY gabapentin 600 mg tablet 600 mg PO TID benzonatate 100 mg capsule 200 mg PO TID PRN (Reason: cough) latanoprost 0.005 % drops 1 drp ophthalmic (eye) DAILY albuterol sulfate 2.5 mg /3 mL (0.083 %) solution for nebulization 2.5 mg continuous nebulization Q4H PRN (Reason: wheezing) Patient Comments: PT HAS NOT USED YET Discontinued loperamide 2 MG capsule 2 mg PO Q2H PRN (Reason: Diarrhea) Referrals / Follow Up: Clarice Murillo MD [Primary Care Provider] - Within 2 Weeks Dennis Rocha MD [Med Staff - Active Staff] - (Follow-up in 3 days at [facility] in clinic) Disposition Disposition (needs filled in before D/C Order can be placed): Home, Self Care Charges/Coding Visit Charges Inpatient E&M: 86836 Disch Hosp >30min 11/10/24 1034 Cosigner Signature (if applicable): CC: Dr. Clarice Murillo MD; Dr. Riky Li MD; Dr. Dennis Rocha MD~ Signed [facility]04-26-2025 Discharge summary [facility] Medical Records Department [address] [place] [address] Instructions for Home/Discharge Instructions 11/10/24 0940 MR#: [id number] Acct: [id number] Name: PACO WHITNEY Rep #:[id number] : 1935 89 From: Riky Evans PCP: Dr. Clarice Murillo MD Status:AD M IN Discharge Instructions DC O2, CPAP, BIPAP needs Home O2 Discharge instructions: No Follow Up Care Test Results: Test results from this visit will be discussed in further detail at your follow- up appointment, if applicable. Discharge Plan Admission Admit Date/Time: 11/08/24 20:32 Primary Reason for Your Visit: Left hand possible small hematoma secondary to small trauma and cellulitis Attending Provider: Riky Li Primary Care Provider: Clarice Murillo Consulting Providers: Evelyn Doss Instructions Additional Instructions / Restrictions: Plastic surgery discharge instructions Elevate left upper extremity above heart, especially while sleeping but during the course of the day as well. Return if left hand and wrist becomes hot and swollen or if there is any fevers or chills. Follow-up with me in clinic in 3 days at [facility] on Tuesday, 13 November 2024, Discharge Orders/Prescriptions Prescriptions: New polyethylene glycol 3350 [Miralax] 17 gram/dose powder 17 g PO DAILY 30 Days Qty: 510 0RF amoxicillin-pot clavulanate 875-125 mg tablet 1 tab PO BID Qty: 14 0RF Continued albuterol sulfate 1 INHALER inhaler 2 puff inhalation Q4H PRN (Reason: Sob &/Or Wheezing) ramipril 10 MG capsule 10 mg PO DAILY Patient Comments: BLOOD PRESSURE pantoprazole 40 MG tablet 40 mg PO DAILY Patient Comments: ACID REFLUX tamsulosin 0.4 MG capsule 0.4 mg PO QHS Patient Comments: PROSTATE cholecalciferol (vitamin D3) 1,000 UNIT tablet 3,000 unit PO BID budesonide-formoterol 1 INHALER inhaler 2 puff inhalation BID fenofibrate 160 MG tablet 160 mg PO DAILY gabapentin 600 mg tablet 600 mg PO TID benzonatate 100 mg capsule 200 mg PO TID PRN (Reason: cough) latanoprost 0.005 % drops 1 drp ophthalmic (eye) DAILY albuterol sulfate 2.5 mg /3 mL (0.083 %) solution for nebulization 2.5 mg continuous nebulization Q4H PRN (Reason: wheezing) Patient Comments: PT HAS NOT USED YET Discontinued loperamide 2 MG capsule 2 mg PO Q2H PRN (Reason: Diarrhea) Referrals / Follow Up: Clarice Murillo MD [Primary Care Provider] - Within 2 Weeks Dennis Rocha MD [Med Staff - Active Staff] - (Follow-up in 3 days at [facility] in clinic) Disposition Disposition (needs filled in before D/C Order can be placed): Home, Self Care 11/10/24 0947Riky Li MD CC: Dr. Evelyn Doss DO; Dr. Clarice Murillo MD ~ Signed [facility]04-26-2025 [facility] Medical Records Department [address] [place] [address] Discharge Summary 11/10/24 0947 MR#: [id number] Acct: [id number] Name: PACO WHITNEY Rep #: [id number] : 1935 89 From: Riky Li MD PCP: Dr. Clarice Murillo MD Status:ADM IN Location: [place] [address] Providers Date of Admission: 11/08/24 Date of Discharge: 11/10/24 Primary Care Physician: Dr. Clarice Murillo MD Reason For Visit: LEFT WRIST CELLULITIS WITH POSSIBLE SEPTIC Diagnosis Discharge Diagnosis (1) Swelling of joint of left wrist: Status: Acute Code(s): M25.432 - Effusion, left wrist Plan This 89-year-old gentleman is being admitted for swelling pain redness of his left wrist started about 6 hours prior to presentation. No trauma. Low-grade fever Tmax 99.5 Fahrenheit. 1. Left wrist Cellulitis, concern for septic arthritis versus inflammatory/crystal induced arthritis: [facility] Patient had joint tap, no crystals on the bloody joint aspirate. Left wrist and hand wrapped. Left upper extremity elevation with arm elevation. Left hand x-ray is negative for acute displaced fracture or dislocation but severe osteopenia. Advanced arthritic changes, reported concerning for inflammatory/crystalline arthropathy and superimposed severe osteoarthritis. Gram stain shows 4+ RBC, no organisms seen. Severe on broad-spectrum antibiotic IV Zosyn. Pain control. 11/10: Hand is wrapped. Left hand photo reviewed and shows decreased edema swelling, discoloration/purpleish discoloration from reabsorb hematoma Discharged on empiric 1 week of Augmentin 875 mg twice daily As per nursing staff, patient complained of constipation and has not moved BM for couple days. He was on Imodium as needed at home that is discontinued. Dulcolax 10 mg oral and suppository ordered. MiraLAX 17 g orally daily ordered. Follow with PCP Patient does not know why Imodium was on his home med list. 2. CKD stage IIIb with dehydration: Patient baseline creatinine runs about 1.26- 1.30. BUN elevated 37, creatinine 1.26. IV fluids given. Be creatinine improved to 1.17. 11/10: Creatinine 1.19. BUN normal. 3. Overweight; with BMI of 29.2 KG per square meter 4. Essential hypertension; on ramipril -BP controlled 5. Hypertriglyceridemia; on fenofibrate. Lipid profile shows HDL 29 low but otherwise in normal range. 6. History of asthma/COPD; on budesonide-formoterol twice daily - Stable no evidence of acute flare at this time. 7. PAD - Stable. 8. Peripheral neuropathy; on gabapentin 3 times daily - Continue current regimen. 9. BPH; on tamsulosin - Maintain current therapy. 10. GERD; on pantoprazole - Resume PPI. DVT prophylaxis - Heparin 5,000U sq BID plus SCD's. Discharge medication reconciliation done. Discharge follow-up instructions completed. Discharge process discussed with the patient and all questions were answered to patient's satisfaction. Follow with PCP in 1 to 2 weeks Total time spent, exact 35 minutes on discharge meds reconciliation, examination, coordination of care with nurses and ancillary staff, review of imaging and blood test and discussion with the patient on follow-up instructions. Medications at Discharge Home Medications albuterol sulfate 90 mcg/actuation aerosol inhaler 2 puff inhalation Q4H PRN Sob /Or Wheezing 07/05/14 ramipril 10 mg capsule 10 mg PO DAILY BP 07/05/14 pantoprazole 40 mg tablet,delayed release 40 mg PO DAILY gerd 08/21/14 cholecalciferol (vitamin D3) 25 mcg (1,000 unit) tablet 3,000 unit PO BID Supplement 11/23/14 tamsulosin 0.4 mg capsule 0.4 mg PO QHS Prostate 11/23/14 budesonide-formoterol HFA 160 mcg-4.5 mcg/actuation aerosol inhaler 2 puff inhalation BID Breathing 06/28/18 fenofibrate 160 mg tablet 160 mg PO DAILY cholesterol 04/10/19 albuterol sulfate 2.5 mg/3 mL (0.083 %) solution for nebulization 2.5 mg continuous nebulization Q4H PRN wheezing 11/08/24 benzonatate 100 mg capsule 200 mg PO TID PRN cough 11/08/24 gabapentin 600 mg tablet 600 mg PO TID 11/08/24 latanoprost 0.005 % eye drops 1 drp ophthalmic (eye) DAILY 11/08/24 amoxicillin 875 mg-potassium clavulanate 125 mg tablet 1 tab PO BID #14 tabs 11/10/24 polyethylene glycol 3350 17 gram/dose oral powder (Miralax) 17 g PO DAILY 1 month #510 grams 11/10/24 Physical Exam Narrative Seen and examined Left hand photo reviewed. Shows purplish discoloration probably from hematoma. Cellulitis looks better. Patient has intermittent history of about 10 pack years of smoking. He also worked in [employer] environment. Has history of COPD Physical exam General: Alert, Oriented x3, Cooperative HEENT: Atraumatic, PERRLA, EOMI, Normocephalic Oral: No Gingival or Mucosal Lesions/ Ulcerations Neck: Supple, No JVD, Negative Carotid Bruits Chest wall/Lungs: Air entry diminished in bilateral lung base (more content not included)...[facility]04-26-2025 Progress note [facility] Medical Records Department [address] [place] [address] Progress Note - Surgery 11/10/24 0938 MR#: [id number] Acct: [id number] Name: PACO WHITNEY Rep #:[id number] : 1935 89 From: Dennis Rocha MD PCP: Dr. Clarice Murillo MD Status:AD M IN Location: [facility] [id number] Subjective Subjective Doing well. Reports that pain has dissipated significantly from the left wrist and hand with elevation. No fevers or chills. Patient thinking back on , 08 November 2024 the date of admission and reports that he may havebeen carrying some grocery bags that may have caused the shear force leading to underlying hematoma. Objective Data Objective Data Vital Signs: Vital Signs Temp Pulse Resp BP Pulse Ox O2 Del Method 98.8 F 82 18 118/62 94 Room Air 11/10/24 05:40 11/10/24 07:32 11/10/24 07:32 11/10/24 05:40 11/10/24 07:32 11/10/24 07:32 Oxygen Delivery Method Room Air Weight: 200 lb 6.403 oz Body Mass Index (BMI) 29.7 Intake & Output: Intake and Output for Last 24 Hours 11/08/24 11/09/24 11/10/24 23:59 23:59 23:59 Intake Total 100 / 200 1199.79 / 1199.79 1050 / 1050 Output Total 1050 / 1050 550 / 550 Balance 100 / 200 149.79 / 149.79 500 / 500 Lab / Micro Data 11/10/24 03:56 11/10/24 03:56 Labs: Laboratory Results - last 24 hr 11/10/24 03:56: WBC 7.9, RBC 4.01 L, Hgb 12.9 L, Hct 38.7 L, MCV 96.5 H, MCH 32.2 H, MCHC 33.3, RDWStd Deviation 49.6 H, RDW Coeff of Nohemi 14.0, Plt Count 181, MPV 9.4, Immature Gran % (Auto) 0.400, Neut % (Auto) 61.9, Lymph % (Auto) 24.1, Pitt % (Auto) 10.6 H, Eos % (Auto) 2.4, Baso % (Auto) 0.6, Absolute Neuts (auto) 4.9, Absolute Lymphs (auto) 1.91, Nucleated RBC % 0, Sodium 137, Potassium 4.3, Chloride 105, Carbon Dioxide 24.1, Anion Gap 9, BUN 23 H, Creatinine 1.19, Estim Creat Clear Calc 48.56 L, Est GFR (MDRD) Non-Af 59 L, BUN/Creatinine Ratio 19.7, Glucose 101 H, Calcium 9.1, Phosphorus 3.3 Micro: Microbiology 11/08/24 19:21 Fluid - Synovial (joint) Gram Stain - Final 11/08/24 19:21 Fluid - Synovial (joint) Body Fluid Culture - Preliminary No growth-Final to follow Physical Exam Narrative Left Upper Extremity Inspection: Significant improvement of left upper extremity swelling around the hand and wrist with24 hours of elevation. There is a small soft hematoma on the radial side of the hand near the thumbbase. No skin breaks and tight skin/pressure or tension. No induration or drainage. Palpation: No pain with axial loading today. Motor: Able to bend and extend all MP, PIP, and DIP joints. Sensory: Intact to light touch on the radial and ulnar borders. Vascular: Finger tips are warm and well perfused with <2 second capillary refill. Assessment & Plan Assessment/Plan (1) Swelling of joint of left wrist: PLAN: No crystals on the bloody joint aspirate. Negative cultures LUE elevation with arm elevator (above heart) as well as compression wrap. Okay for discharge today and agree with empiric course of antibiotics. Likely a hematoma secondary to small trauma. Continue elevation at home and follow-up with me in 3 days at [facility] in clinic. Charges/Coding Visit Charges Inpatient E&M: 07009 Subs Hosp L1 11/10/24 0940 Cosigner Signature (if applicable): CC: ~ Signed ADDENDUM by Dr. Dennis Rocha MD on 11/10/24 at 0941 Addendum Afebrile with stable vital signs Normal white blood cell count 11/10/24 0941 Cosigner Signature (if applicable): cc: ~* Signed [facility]04-25-2025 Progress note Author Riky Li [facility] Note Date/Time November 09, 2024 3:4 5pm [facility] Medical Records Department [address] [place] [address] Progress Note - Hospitalist 11/09/24 0949 MR#: [id number] Acct: [id number] Name: PACO WHITNEY Rep #:[id number] : 1935 89 From: Riky Evans PCP: Dr. Clarice Murillo MD Status:AD M IN Location: [facility] [id number] Reason for Visit Reason for Visit: Diagnoses Overweight (11/08/24) Dehydration (11/08/24) Cellulitis of left upper limb (11/08/24) Gout, unspecified (11/08/24) Effusion, left wrist (11/08/24) Pain in left wrist (11/08/24) Objective Data Objective Data Vital Signs: Vital Signs Temp Pulse Resp BP Pulse Ox O2 Del Method 98.1 F 68 16 110/59 L 93 Room Air 11/09/24 08:22 11/09/24 08:22 11/09/24 08:22 11/09/24 08:22 11/09/24 08:22 11/09/24 08:22 Oxygen Delivery Method Room Air Weight: 198 lb 13.711 oz Body Mass Index (BMI) 29.4 Intake & Output: Intake and Output for Last 24 Hours 11/07/24 11/08/24 11/09/24 23:59 23:59 23:59 Intake Total 100 / 200 100 / 100 Output Total 450 / 450 Balance 100 / 200 -350 / -350 Lab / Micro Data 11/09/24 04:20 11/09/24 04:20 Labs: Laboratory Results - last 24 hr 11/08/24 18:28: WBC 10.0, RBC 4.51 L, Hgb 14.3, Hct 43.0, MCV 95.3 H, MCH 31.7, MCHC 33.3, RDW Std Deviation 49.1 H, RDW Coeff of Nohemi 13.9, Plt Count 233, MPV 9.8, Immature Gran % (Auto) 0.400, Neut % (Auto) 68.3, Lymph % (Auto) 19.5, Pitt% (Auto) 9.4, Eos % (Auto) 1.8, Baso % (Auto) 0.6, Absolute Neuts (auto) 6.9, Absolute Lymphs (auto) 1.96, Nucleated RBC % 0, ESR < 1, Sodium 141, Potassium 4.6, Chloride 108, Carbon Dioxide 22.8, Anion Gap 10, BUN 37 H, Creatinine 1.26 H, Estim Creat Clear Calc 45.77 L, Est GFR (MDRD) Non-Af 55 L, BUN/Creatinine Ratio 29.3 H, Glucose 116 H, Uric Acid 4.5, Calcium 9.5, Magnesium 1.6, C-React Prot Ext Range 5.25 H, TSH 2.530 11/08/24 19:21: Fluid Source Cancelled, Fluid Color Cancelled, Fluid Appearance Cancelled, Fluid WBC Cancelled, Fluid RBC Cancelled, Fluid Tot Cell Count Cancelled, Fld Polynuclear WBCs # Cancelled, Fld Polynuclear WBCs % Cancelled, Fluid Mononuclear WBCs Cancelled, Fld Mononuclear WBCs % Cancelled, Fluid Neutrophils Cancelled, Fluid Lymphocytes Cancelled, Fluid Monocytes Cancelled, Fluid Plasma Cells Cancelled, Fluid Macrophages Cancelled, Fld Mesothelial CellsCancelled, Fluid Other Cells Cancelled, Fluid Crystals NO CRYSTALS SEEN, Fluid Crystal Source SYNOVIAL, Fl Pathologist Comment Cancelled, Fluid Comment 2 Cancelled, Synovial Source LEFT WRIST ASPIRATE, Synovial Color RED, Synovial Appearance Opaque, Synovial WBC 3.9810 H, Synovial RBC 2.743 H, Synovial Tot Cell Ct 4.0010 H, Synov Polynuclear WBCs 2.572, Synov Mononuclear WBCs 1.409, Synovial Neutrophils 46 H, Synovial Lymphocytes 40, Synovial Monocytes 14, Synovial Polynuclear % 64.6, Synovial Mononuclear % 35.4, Synovial Path Comment May follow 11/09/24 04:20: WBC 8.8, RBC 4.09 L, Hgb 13.2, Hct 39.5 L, MCV 96.6 H, MCH 32.3 H, MCHC 33.4, RDW Std Deviation 49.5 H, RDW Coeff of Nohemi 13.9, Plt Count 196, MPV 9.8, Immature Gran % (Auto) 0.300, Neut % (Auto) 66.4, Lymph % (Auto) 20.8, Pitt % (Auto) 9.7, Eos % (Auto) 2.2, Baso % (Auto) 0.6, Absolute Neuts (auto) 5.8, Absolute Lymphs (auto) 1.82, Nucleated RBC % 0, Sodium 140, Potassium 4.1, Chloride 107, Carbon Dioxide 23.1, Anion Gap 10, BUN 32 H, Creatinine 1.17, Estim Creat Clear Calc 49.39 L, Est GFR (MDRD) Non-Af 60, BUN/Creatinine Ratio 26.9 H, Glucose 88, Calcium 8.8, Phosphorus 3.6, Total Bilirubin 0.71, AST 24, ALT 22, Alkaline Phosphatase 60, Total Protein 5.3 L, Albumin 3.2 L, Globulin 2.1 L, Albumin/Globulin Ratio 1.5, Triglycerides 155, Cholesterol 103, LDL Cholesterol, Calc 43, VLDL Cholesterol 31, HDL Cholesterol 29 L, Cholesterol/HDLRatio 3.52 Micro: Microbiology 11/08/24 19:21 Fluid - Synovial (joint) Body Fluid Culture - Preliminary No growth-Final to follow Radiography Diagnostic Testing: Radiology Impression Hand X-Ray 04/24/25 19:37 IMPRESSION: Negative for acute displaced fracture or dislocation. Severe osteopenia. Advanced arthritic changes throughout the hand and carpus concerning for underlying inflammatory/crystalline arthropathy. 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 Marked diffuse soft tissue swelling about the wrist. Reading Location: [facility] Wrist X-Ray 11/08/24 19:37 IMPRESSION: Negative for acute displaced fracture or dislocation. Severe arthritic changes of the wrist including xxbn-kd-bquc articulation, subcortical cysts/erosions and significant osseous remodeling concerning for underlying crystalline/inflammatory arthropathy. Severe diffuse soft tissue swelling about the wrist. No cortical destruction. Osteopenia. Reading Location: [facility] Physical Exam Narrative Seen and examined Patient admitted with left hand cellulitis. Was seen by plastic surgeon Dr. Galeana and aspirated about 2 mL pus. Sent for culture. Patient denies any history of prior cellulitis in the hand, foreign body or any animal bite or inciting factor. It is a spontaneous onset. Patient has intermittent history of about 10 pack years of smoking. He also worked in [employer] environment. Has history of COPD Physical exam General: Alert, Oriented x3, Cooperative HEENT: Atraumatic, PERRLA, EOMI, Normocephalic Oral: No Gingival or Mucosal Lesions/ Ulcerations Neck: Supple, No JVD, Negative Carotid Bruits Chest wall/Lungs: Air entry diminished in bilateral lung bases. Mild bilateralexpiratory rhonchi Cardiovascular: Regular rate, Regular Rhythm, Normal S1, Normal S2, No M/G/R Abdomen: Bowel Sounds Present, Soft, Non Tender, Non-Distended : No dysuria. No renal angle tenderness. No suprapubic tenderness. Extremities: No edema, Capillary Refill Less than 3 Seconds Skin: Redness swelling induration of left hand mainly extending proximally from left thumb to radial aspect of wrist. Covered with dressing. Musculoskeletal: Bony deformity/arthritic changes of right wrist, right knee suggestive of degenerative arthritis. Left knee TKR. Neurological: Cranial nerves II-XII grossly intact, DTR 2+/4. No acute focal neurological deficit. Psych/Mental Status: Normal Affect, Appropriate. Assessment & Plan Assessment/Plan (1) Cellulitis: QUALIFIERS: Laterality: left Site of cellulitis: extremity Site of cellulitis of extremity: upper extremity Qualified Code(s): L03.114 - Cellulitis of left upper limb (2) Swelling of joint of left wrist: (3) Left wrist pain: (4) Gout: QUALIFIERS: Chronicity: unspecified Gout etiology: unspecified cause Gout site: unspecified site Qualified Code(s): M10.9 - Gout, unspecified (5) Dehydration: (6) Overweight (BMI 25.0-29.9): PLAN: Plan This 89-year-old gentleman is being admitted for swelling pain redness of his left wrist started about 6 hours prior to presentation. No trauma. Low-grade fever Tmax 99.5 Fahrenheit. 1. Left wrist Cellulitis, concern for septic arthritis versus inflammatory/crystal induced arthritis: Patient is being admitted to [facility] floor. Patient had joint tap, no crystals on the bloody joint aspirate. Left wrist and hand wrapped. Left upper extremity elevation with arm elevation. Left hand x-ray is negative for acute displaced fracture or dislocation but severe osteopenia. Advanced arthritic changes, reported concerning for inflammatory/crystalline arthropathy and superimposed severe osteoarthritis. Gram stain shows 4+ RBC, no organisms seen. Severe on broad- spectrum antibioticIV Zosyn. Pain control. 2. CKD stage IIIb with dehydration: Patient baseline creatinine runs about 1.26- 1.30. BUN elevated 37, creatinine 1.26. IV fluids given. Be creatinine improved to 1.17. 3. Overweight; with BMI of 29.2 KG per square meter 4. Essential hypertension; on ramipril -BP controlled 5. Hypertriglyceridemia; on fenofibrate. Lipid profile shows HDL 29 low but otherwise in normal range. 6. History of asthma/COPD; on budesonide-formoterol twice daily - Stable no evidence of acute flare at this time. 7. PAD - Stable. 8. Peripheral neuropathy; on gabapentin 3 times daily - Continue current regimen. 9. BPH; on tamsulosin - Maintain current therapy. 10. GERD; on pantoprazole - Resume PPI. DVT prophylaxis - Heparin 5,000U sq BID plus SCD's. Charges/Coding Visit Charges Inpatient E&M: 84209 Subs Hosp L2 11/09/24 3306 <Electronically signed by Riky Li MD> Cosigner Signature (if applicable): CC: ~ Signed [facility] Work Phone: [phone] Progress note [facility] Medical Records Department [address] [place] [address] Progress Note - Hospitalist 11/09/24 0949 MR#: [id number] Acct: [id number] Name: PACO WHITNEY Rep #:[id number] : 1935 89 From: Riky Evans PCP: Dr. Clarice Murillo MD Status:AD M IN Location: [facility] [id number] Reason for Visit Reason for Visit: Diagnoses Overweight (11/08/24) Dehydration (11/08/24) Cellulitis of left upper limb (11/08/24) Gout, unspecified (11/08/24) Effusion, left wrist (11/08/24) Pain in left wrist (11/08/24) Objective Data Objective Data Vital Signs: Vital Signs Temp Pulse Resp BP Pulse Ox O2 Del Method 98.1 F 68 16 110/59 L 93 Room Air 11/09/24 08:22 11/09/24 08:22 11/09/24 08:22 11/09/24 08:22 11/09/24 08:22 11/09/24 08:22 Oxygen Delivery Method Room Air Weight: 198 lb 13.711 oz Body Mass Index (BMI) 29.4 Intake & Output: Intake and Output for Last 24 Hours 11/07/24 11/08/24 11/09/24 23:59 23:59 23:59 Intake Total 100 / 200 100 / 100 Output Total 450 / 450 Balance 100 / 200 -350 / -350 Lab / Micro Data 11/09/24 04:20 11/09/24 04:20 Labs: Laboratory Results - last 24 hr 11/08/24 18:28: WBC 10.0, RBC 4.51 L, Hgb 14.3, Hct 43.0, MCV 95.3 H, MCH 31.7, MCHC 33.3, RDW Std Deviation 49.1 H, RDW Coeff of Nohemi 13.9, Plt Count 233, MPV 9.8, Immature Gran % (Auto) 0.400, Neut % (Auto) 68.3, Lymph % (Auto) 19.5, Pitt% (Auto) 9.4, Eos % (Auto) 1.8, Baso % (Auto) 0.6, Absolute Neuts (auto) 6.9, Absolute Lymphs (auto) 1.96, Nucleated RBC % 0, ESR < 1, Sodium 141, Potassium 4.6, Chloride 108, Carbon Dioxide 22.8, Anion Gap 10, BUN 37 H, Creatinine 1.26 H, Estim Creat ClearCalc 45.77 L, Est GFR (MDRD) Non-Af 55 L, BUN/Creatinine Ratio 29.3 H, Glucose 116 H, Uric Acid 4.5, Calcium 9.5, Magnesium 1.6, C-React Prot Ext Range 5.25 H, TSH 2.530 11/08/24 19:21: Fluid Source Cancelled, Fluid Color Cancelled, Fluid Appearance Cancelled, Fluid WBC Cancelled, Fluid RBC Cancelled, Fluid Tot Cell Count Cancelled, Fld Polynuclear WBCs # Cancelled, Fld Polynuclear WBCs % Cancelled, Fluid Mononuclear WBCs Cancelled, Fld Mononuclear WBCs % Cancelled, Fluid Neutrophils Cancelled, Fluid Lymphocytes Cancelled, Fluid Monocytes Cancelled, Fluid Plasma Cells Cancelled, Fluid Macrophages Cancelled, Fld Mesothelial CellsCancelled, Fluid Other Cells Cancelled, Fluid Crystals NO CRYSTALS SEEN, Fluid Crystal Source SYNOVIAL, Fl Pathologist Comment Cancelled, Fluid Comment 2 Cancelled, Synovial Source LEFT WRIST ASPIRATE, Synovial Color RED, Synovial Stephen earance Opaque, Synovial WBC 3.9810 H, Synovial RBC 2.743 H, Synovial Tot Cell Ct 4.0010 H, Synov Polynuclear WBCs 2.572, Synov Mononuclear WBCs 1.409, Synovial Neutrophils 46 H, Synovial [id number], Synovial Monocytes 14, Synovial Polynuclear % 64.6, Synovial Mononuclear % 35.4, Synovial Path Comment May follow 11/09/24 04:20: WBC 8.8, RBC 4.09 L, Hgb 13.2, Hct 39.5 L, MCV 96.6 H, MCH 32.3 H, MCHC 33.4, RDW Std Deviation 49.5 H, RDW Coeff of Nohemi 13.9, Plt Count 196, MPV 9.8, Immature Gran % (Auto) 0.300, Neut % (Auto) 66.4, Lymph % (Auto) 20.8, Pitt % (Auto) 9.7, Eos % (Auto) 2.2, Baso % (Auto) 0.6, Absolute Neuts (auto) 5.8, Absolute Lymphs (auto) 1.82, Nucleated RBC % 0, Sodium 140, Potassium 4.1, Chloride 107, Carbon Dioxide 23.1, Anion Gap 10, BUN 32 H, Creatinine 1.17, Estim Creat Clear Calc 49.39 L, Est GFR (MDRD) Non-Af 60, BUN/Creatinine Ratio 26.9 H, Glucose 88, Calcium 8.8, Phosphorus 3.6,Total Bilirubin 0.71, AST 24, ALT 22, Alkaline Phosphatase 60, Total Protein 5.3 L, Albumin 3.2 L, Globulin 2.1 L, Albumin/Globulin Ratio 1.5, Triglycerides 155, Cholesterol 103, LDL Cholesterol, Calc 43, VLDL Cholesterol 31, HDL Cholesterol 29 L, Cholesterol/HDLRatio 3.52 Micro: Microbiology 11/08/24 19:21 Fluid - Synovial (joint) Body Fluid Culture - Preliminary No growth-Final to follow Radiography Diagnostic Testing: Radiology Impression Hand X-Ray 11/08/24 19:37 IMPRESSION: Negative for acute displaced fracture or dislocation. Severe osteopenia. 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 Marked diffuse soft tissue swelling about the wrist. Reading Location: [facility] Wrist X-Ray 11/08/24 19:37 IMPRESSION: Negative for acute displaced fracture or dislocation. Severe arthritic changes of the wrist including nhhc-is-aayg articulation, subcortical cysts/erosions and significant osseous remodeling concerning for underlying crystalline/inflammatory arthropathy. Severe diffuse soft tissue swelling about the wrist. No cortical destruction. Osteopenia. Reading Location: [facility] Physical Exam Narrative Seen and examined Patient admitted with left hand cellulitis. Was seen by plastic surgeon Dr. Galeana and aspirated about 2 mL pus. Sent for culture. Patient denies any history of prior cellulitis in the hand, foreign body or any animal bite or inciting factor. It is a spontaneous onset. Patient has intermittent history of about 10 pack years of smoking. He also worked in [employer] environment. Has history of COPD Physical exam General: Alert, Oriented x3, Cooperative HEENT: Atraumatic, PERRLA, EOMI, Normocephalic Oral: No Gingival or Mucosal Lesions/ Ulcerations Neck: Supple, No JVD, Negative Carotid Bruits Chest wall/Lungs: Air entry diminished in bilateral lung bases. Mild bilateralexpiratory rhonchi Cardiovascular: Regular rate, Regular Rhythm, Normal S1, Normal S2, No M/G/R Abdomen: Bowel Sounds Present, Soft, Non Tender, Non-Distended : No dysuria. No renal angle tenderness. No suprapubic tenderness. Extremities: No edema, Capillary Refill Less than 3 Seconds Skin: Redness swelling induration of left hand mainly extending proximally from left thumb to radial aspect of wrist. Covered with dressing. Musculoskeletal: Bony deformity/arthritic changes of right wrist, right knee suggestive of degenerative arthritis. Left knee TKR. Neurological: Cranial nerves II-XII grossly intact, DTR 2+/4. No acute focal neurological deficit. Psych/Mental Status: Normal Affect, Appropriate. Assessment & Plan Assessment/Plan (1) Cellulitis: QUALIFIERS: Laterality: left Site of cellulitis: extremity Site of cellulitis of extremity: upper extremity Qualified Code(s): L03.114 - Cellulitis of left upper limb (2) Swelling of joint of left wrist: (3) Left wrist pain: (4) Gout: QUALIFIERS: Chronicity: unspecified Gout etiology: unspecified cause Gout site: unspecified site Qualified Code(s): M10.9 - Gout, unspecified (5) Dehydration: (6) Overweight (BMI 25.0-29.9): PLAN: Plan This 89-year-old gentleman is being admitted for swelling pain redness of his left wrist started about 6 hours prior to presentation. No trauma. Low-grade fever Tmax 99.5 Fahrenheit. 1. Left wrist Cellulitis, concern for septic arthritis versus inflammatory/crystal induced arthritis: Patient is being admitted to MedSurg floor. Patient had joint tap, no crystals on the bloody joint aspirate. Left wrist and hand wrapped. Left upper extremity elevation with arm elevation. Left hand x-ray is negative for acute displaced fracture or dislocation but severe osteopenia. Advanced arthritic changes, reported concerning for inflammatory/crystalline arthropathy and superimposed severe osteoarthritis. Gram stain shows 4+ RBC, no organisms seen. Severe on broad-spectrum antibioticIV Zosyn. Pain control. 2. CKD stage IIIb with dehydration: Patient baseline creatinine runs about 1.26- 1.30. BUN elevated 37, creatinine 1.26. IV fluids given. Be creatinine improved to 1.17. 3. Overweight; with BMI of 29.2 KG per square meter 4. Essential hypertension; on ramipril -BP controlled 5. Hypertriglyceridemia; on fenofibrate. Lipid profile shows HDL 29 low but otherwise in normal range. 6. History of asthma/COPD; on budesonide-formoterol twice daily - Stable no evidence of acute flareat this time. 7. PAD - Stable. 8. Peripheral neuropathy; on gabapentin 3 times daily - Continue current regimen. 9. BPH; on tamsulosin - Maintain current therapy. 10. GERD; on pantoprazole - Resume PPI. DVT prophylaxis - Heparin 5,000U sq BID plus SCD's. Charges/Coding Visit Charges Inpatient E&M: 33545 Subs Hosp L2 11/09/24 9622 Cosigner Signature (if applicable): CC: ~ Signed [facility]04-25-2025 Progress note Author Dennis Rocha [facility] Note Date/Time November 09, 2024 10: 18am [facility] Medical Records Department [address] [place] [address] Progress Note - Surgery 11/09/24 1009 MR#: [id number] Acct: [id number] Name: PACO WHITNEY Rep #:[id number] : 1935 89 From: Dennis Rocha MD PCP: Dr. Clarice Murillo MD Status:AD M IN Location: [place] [id number] Subjective Subjective Patient doing well overall. Less pain today. LUE was not elevated overnight. Objective Data Objective Data Xrays reviewed Degenerative arthritis Vital Signs: Vital Signs Temp Pulse Resp BP Pulse Ox O2 Del Method 98.1 F 68 16 110/59 L 93 Room Air 11/09/24 08:22 11/09/24 08:22 11/09/24 08:22 11/09/24 08:22 11/09/24 08:22 11/09/24 08:22 Oxygen Delivery Method Room Air Weight: 198 lb 13.711 oz Body Mass Index (BMI) 29.4 Intake & Output: Intake and Output for Last 24 Hours 11/07/24 11/08/24 11/09/24 23:59 23:59 23:59 Intake Total 100 / 200 100 / 100 Output Total 450 / 450 Balance 100 / 200 -350 / -350 Lab / Micro Data 11/09/24 04:20 11/09/24 04:20 Labs: Laboratory Results - last 24 hr 11/08/24 18:28: WBC 10.0, RBC 4.51 L, Hgb 14.3, Hct 43.0, MCV 95.3 H, MCH 31.7, MCHC 33.3, RDW Std Deviation 49.1 H, RDW Coeff of Nohemi 13.9, Plt Count 233, MPV 9.8, Immature Gran % (Auto) 0.400, Neut % (Auto) 68.3, Lymph % (Auto) 19.5, Pitt% (Auto) 9.4, Eos % (Auto) 1.8, Baso % (Auto) 0.6, Absolute Neuts (auto) 6.9, Absolute Lymphs (auto) 1.96, Nucleated RBC % 0, ESR < 1, Sodium 141, Potassium 4.6, Chloride 108, Carbon Dioxide 22.8, Anion Gap 10, BUN 37 H, Creatinine 1.26 H, Estim Creat Clear Calc 45.77 L, Est GFR (MDRD) Non-Af 55 L, BUN/Creatinine Ratio 29.3 H, Glucose 116 H, Uric Acid 4.5, Calcium 9.5, Magnesium 1.6, C-React Prot Ext Range 5.25 H, TSH 2.530 11/08/24 19:21: Fluid Source Cancelled, Fluid Color Cancelled, Fluid Appearance Cancelled, Fluid WBC Cancelled, Fluid RBC Cancelled, Fluid Tot Cell Count Cancelled, Fld Polynuclear WBCs # Cancelled, Fld Polynuclear WBCs % Cancelled, Fluid Mononuclear WBCs Cancelled, Fld Mononuclear WBCs % Cancelled, Fluid Neutrophils Cancelled, Fluid Lymphocytes Cancelled, Fluid Monocytes Cancelled, Fluid Plasma Cells Cancelled, Fluid Macrophages Cancelled, Fld Mesothelial CellsCancelled, Fluid Other Cells Cancelled, Fluid Crystals NO CRYSTALS SEEN, Fluid Crystal Source SYNOVIAL, Fl Pathologist Comment Cancelled, Fluid Comment 2 Cancelled, Synovial Source LEFT WRIST ASPIRATE, Synovial Color RED, Synovial Appearance Opaque, Synovial WBC 3.9810 H, Synovial RBC 2.743 H, Synovial Tot Cell Ct 4.0010 H, Synov Polynuclear WBCs 2.572, Synov Mononuclear WBCs 1.409, Synovial Neutrophils 46 H, Synovial Lymphocytes 40, Synovial Monocytes 14, Synovial Polynuclear % 64.6, Synovial Mononuclear % 35.4, Synovial Path Comment May follow 11/09/24 04:20: WBC 8.8, RBC 4.09 L, Hgb 13.2, Hct 39.5 L, MCV 96.6 H, MCH 32.3 H, MCHC 33.4, RDW Std Deviation 49.5 H, RDW Coeff of Nohemi 13.9, Plt Count 196, MPV 9.8, Immature Gran % (Auto) 0.300, Neut % (Auto) 66.4, Lymph % (Auto) 20.8, Pitt % (Auto) 9.7, Eos % (Auto) 2.2, Baso % (Auto) 0.6, Absolute Neuts (auto) 5.8, Absolute Lymphs (auto) 1.82, Nucleated RBC % 0, Sodium 140, Potassium 4.1, Chloride 107, Carbon Dioxide 23.1, Anion Gap 10, BUN 32 H, Creatinine 1.17, Estim Creat Clear Calc 49.39 L, Est GFR (MDRD) Non-Af 60, BUN/Creatinine Ratio 26.9 H, Glucose 88, Calcium 8.8, Phosphorus 3.6, Total Bilirubin 0.71, AST 24, ALT 22, Alkaline Phosphatase 60, Total Protein 5.3 L, Albumin 3.2 L, Globulin 2.1 L, Albumin/Globulin Ratio 1.5, Triglycerides 155, Cholesterol 103, LDL Cholesterol, Calc 43, VLDL Cholesterol 31, HDL Cholesterol 29 L, Cholesterol/HDLRatio 3.52 Micro: Microbiology 11/08/24 19:21 Fluid - Synovial (joint) Body Fluid Culture - Preliminary No growth-Final to follow Radiography Diagnostic Testing: Radiology Impression Hand X-Ray 11/08/24 19:37 IMPRESSION: Negative for acute displaced fracture or dislocation. Severe osteopenia. Advanced arthritic changes throughout the hand and carpus concerning for underlying inflammatory/crystalline arthropathy. 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 Marked diffuse soft tissue swelling about the wrist. Reading Location: [facility] Wrist X-Ray 11/08/24 19:37 IMPRESSION: Negative for acute displaced fracture or dislocation. Severe arthritic changes of the wrist including ecmr-fx-labp articulation, subcortical cysts/erosions and significant osseous remodeling concerning for underlying crystalline/inflammatory arthropathy. Severe diffuse soft tissue swelling about the wrist. No cortical destruction. Osteopenia. Reading Location: [facility] Physical Exam Narrative Left Upper Extremity Inspection: Some persistent swelling consistent with soft hematoma. No skin breaks and tight skin/pressure or tension. No induration or drainage. Palpation: No pain with axial loading today. Motor: Able to bend and extend all MP, PIP, and DIP joints. Sensory: Intact to light touch on the radial and ulnar borders. Vascular: Finger tips are warm and well perfused with <2 second capillary refill. Assessment & Plan Assessment/Plan (1) Swelling of joint of left wrist: PLAN: No crystals on the bloody joint aspirate. F/u cultures. LUE elevation with arm elevator today (above heart) as well as compression wrap. PSU will continue to follow. O.K. for a diet Charges/Coding Multi Select Codes Visit Charges Visit Charges: 31880 Subs Hosp L1 11/09/24 1018 <Electronically signed by Dennis Rocha MD> Cosigner Signature (if applicable): CC: ~ Signed [facility] Work Phone: [phone] Progress note [facility] Medical Records Department [address] [place] [address] Progress Note - Surgery 11/09/24 1009 MR#: [id number] Acct: [id number] Name: PACO WHITNEY Rep #:[id number] : 1935 89 From: Dennis Rocha MD PCP: Dr. Clarice Murillo MD Status:AD M IN Location: [place] [id number] Subjective Subjective Patient doing well overall. Less pain today. LUE was not elevated overnight. Objective Data Objective Data Xrays reviewed Degenerative arthritis Vital Signs: Vital Signs Temp Pulse Resp BP Pulse Ox O2 Del Method 98.1 F 68 16 110/59 L 93 Room Air 11/09/24 08:22 11/09/24 08:22 11/09/24 08:22 11/09/24 08:22 11/09/24 08:22 11/09/24 08:22 Oxygen Delivery Method Room Air Weight: 198 lb 13.711 oz Body Mass Index (BMI) 29.4 Intake & Output: Intake and Output for Last 24 Hours 11/07/24 11/08/24 11/09/24 23:59 23:59 23:59 Intake Total 100 / 200 100 / 100 Output Total 450 / 450 Balance 100 / 200 -350 / -350 Lab / Micro Data 11/09/24 04:20 11/09/24 04:20 Labs: Laboratory Results - last 24 hr 11/08/24 18:28: WBC 10.0, RBC 4.51 L, Hgb 14.3, Hct 43.0, MCV 95.3 H, MCH 31.7, MCHC 33.3, RDW Std Deviation 49.1 H, RDW Coeff of Nohemi 13.9, Plt Count 233, MPV 9.8, Immature Gran % (Auto) 0.400, Neut % (Auto) 68.3, Lymph % (Auto) 19.5, Pitt% (Auto) 9.4, Eos % (Auto) 1.8, Baso % (Auto) 0.6, Absolute Neuts (auto) 6.9, Absolute Lymphs (auto) 1.96, Nucleated RBC % 0, ESR < 1, Sodium 141, Potassium 4.6, Chloride 108, Carbon Dioxide 22.8, Anion Gap 10, BUN 37 H, Creatinine 1.26 H, Estim Creat ClearCalc 45.77 L, Est GFR (MDRD) Non-Af 55 L, BUN/Creatinine Ratio 29.3 H, Glucose 116 H, Uric Acid 4.5, Calcium 9.5, Magnesium 1.6, C-React Prot Ext Range 5.25 H, TSH 2.530 11/08/24 19:21: Fluid Source Cancelled, Fluid Color Cancelled, Fluid Appearance Cancelled, Fluid WBC Cancelled, Fluid RBC Cancelled, Fluid Tot Cell Count Cancelled, Fld Polynuclear WBCs # Cancelled, Fld Polynuclear WBCs % Cancelled, Fluid Mononuclear WBCs Cancelled, Fld Mononuclear WBCs % Cancelled, Fluid Neutrophils Cancelled, Fluid Lymphocytes Cancelled, Fluid Monocytes Cancelled, Fluid Plasma Cells Cancelled, Fluid Macrophages Cancelled, Fld Mesothelial CellsCancelled, Fluid Other Cells Cancelled, Fluid Crystals NO CRYSTALS SEEN, Fluid Crystal Source SYNOVIAL, Fl Pathologist Comment Cancelled, Fluid Comment 2 Cancelled, Synovial Source LEFT WRIST ASPIRATE, Synovial Color RED, Synovial Stephen earance Opaque, Synovial WBC 3.9810 H, Synovial RBC 2.743 H, Synovial Tot Cell Ct 4.0010 H, Synov Polynuclear WBCs 2.572, Synov Mononuclear WBCs 1.409, Synovial Neutrophils 46 H, Synovial [id number], Synovial Monocytes 14, Synovial Polynuclear % 64.6, Synovial Mononuclear % 35.4, Synovial Path Comment May follow 11/09/24 04:20: WBC 8.8, RBC 4.09 L, Hgb 13.2, Hct 39.5 L, MCV 96.6 H, MCH 32.3 H, MCHC 33.4, RDW Std Deviation 49.5 H, RDW Coeff of Nohemi 13.9, Plt Count 196, MPV 9.8, Immature Gran % (Auto) 0.300, Neut % (Auto) 66.4, Lymph % (Auto) 20.8, Pitt % (Auto) 9.7, Eos % (Auto) 2.2, Baso % (Auto) 0.6, Absolute Neuts (auto) 5.8, Absolute Lymphs (auto) 1.82, Nucleated RBC % 0, Sodium 140, Potassium 4.1, Chloride 107, Carbon Dioxide 23.1, Anion Gap 10, BUN 32 H, Creatinine 1.17, Estim Creat Clear Calc 49.39 L, Est GFR (MDRD) Non-Af 60, BUN/Creatinine Ratio 26.9 H, Glucose 88, Calcium 8.8, Phosphorus 3.6,Total Bilirubin 0.71, AST 24, ALT 22, Alkaline Phosphatase 60, Total Protein 5.3 L, Albumin 3.2 L, Globulin 2.1 L, Albumin/Globulin Ratio 1.5, Triglycerides 155, Cholesterol 103, LDL Cholesterol, Calc 43, VLDL Cholesterol 31, HDL Cholesterol 29 L, Cholesterol/HDLRatio 3.52 Micro: Microbiology 11/08/24 19:21 Fluid - Synovial (joint) Body Fluid Culture - Preliminary No growth-Final to follow Radiography Diagnostic Testing: Radiology Impression Hand X-Ray 11/08/24 19:37 IMPRESSION: Negative for acute displaced fracture or dislocation. Severe osteopenia. 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 Marked diffuse soft tissue swelling about the wrist. Reading Location: [facility] Wrist X-Ray 11/08/24 19:37 IMPRESSION: Negative for acute displaced fracture or dislocation. Severe arthritic changes of the wrist including almr-vr-ixxm articulation, subcortical cysts/erosions and significant osseous remodeling concerning for underlying crystalline/inflammatory arthropathy. Severe diffuse soft tissue swelling about the wrist. No cortical destruction. Osteopenia. Reading Location: [facility] Physical Exam Narrative Left Upper Extremity Inspection: Some persistent swelling consistent with soft hematoma. No skin breaks and tight skin/pressure or tension. No induration or drainage. Palpation: No pain with axial loading today. Motor: Able to bend and extend all MP, PIP, and DIP joints. Sensory: Intact to light touch on the radial and ulnar borders. Vascular: Finger tips are warm and well perfused with <2 second capillary refill. Assessment & Plan Assessment/Plan (1) Swelling of joint of left wrist: PLAN: No crystals on the bloody joint aspirate. F/u cultures. LUE elevation with arm elevator today (above heart) as well as compression wrap. PSU will continue to follow. O.K. for a diet Charges/Coding Multi Select Codes Visit Charges Visit Charges: 98500 Subs Hosp L1 11/09/24 1018 Cosigner Signature (if applicable): CC: ~ Signed [facility]04-25-2025 History and physical note Author Evelyn Mccall [facility] Note Date/Time November 09, 2024 6:2 3am [facility] Medical Records Department [address] [place] [address] H&P Exam - Hospitalist 11/08/242000 MR#: [id number] Acct: [id number] Name: DEVONTEPACO Josefina Rep #:[id number] : 1935 89 From: Evelyn Shah DO PCP: Dr. Clarice Murillo MD Status:AD M IN Location: [facility] [place] [id number] HPI - General General Date of Admission: 11/08/24 Date of Service: 11/08/24 Chief Complaint: Left Wrist Redness, Swelling, Pain and Fever. HPI Narrative PACO WHITNEY, is a 89 M with a past medical history of essential hypertension; on ramipril, hypertriglyceridemia; on fenofibrate, overweight; with BMI of 29.2 this admission, history of asthma/COPD; on budesonide-formoterol twice daily, history of TIA; with vertebrobasilar artery syndrome, history of bilateral carotid stenosis, PAD, history of AAA, peripheral neuropathy; on gabapentin 3 times daily, glaucoma; on latanoprost eyedrops, history of detached retina; s/p repair, BPH; on tamsulosin, history of vasectomy, history of renal cyst, historyof renal calculi, history of cholecystectomy, history of lower GI bleed due to diverticular hemorrhage; s/p panendoscopy (2019), GERD; on pantoprazole, OA; s/pLeft TKR along with history of back surgery and history of gout; affecting his first MTP joint who presents to [facility] ER complaining of Left wrist redness, swelling, pain and fever. Mr. Whitney reports his symptoms began approximately 6 hours prior to admission with the abrupt-onset of redness and swelling around his Left wrist. He denies recent trauma or similar previous episodes. He initially went to urgent care and was noted to have a low-grade fever of 99.5 ?F and was then instructed to come to the ER for further evaluation and treatment. He admits to lethargy and worsening Left wrist pain that is sharp, moderate and made worse with movement. He denies associated chills, sweats, weight loss, changes in vision, runny nose,sore throat, ear pain, chest pain, heart racing, palpitations, shortness of breath, cough, wheezing, abdominal pain, nausea, vomiting, diarrhea, dysuria, hematuria, headache or rash. In the ER he was diagnosed with Left wrist Cellulitis and was also suspected to have septic arthritis of the Left wrist with the ER physician then contacting Dr. Rocha of the surgical service who performed arthrocentesis of the Left wrist joint with the patient noted to have hemarthrosis with ~2 cc of bloody fluid removed with cultures, crystal studies and other fluid analysis pending at this time with an elevated CRP of 5.25 mg/L and a normal serum uric acid of 4.5 mg/dL. He was also noted to have laboratoryevidence of Dehydration evidenced by BUN/creatinine ratio of 29.3 present on admission. He was then empirically treated with IV piperacillin-tazobactam and then transferred to the general medical floor for ongoing care for stay that is expected to extend beyond 2 midnights. [facility] Medical History PAD (peripheral artery disease) Renal cyst Vertebrobasilar artery syndrome Diverticulosis Kidney stone Lung nodule AAA (abdominal aortic aneurysm) Bilateral carotid artery stenosis Asthma Arthritis Diverticular hemorrhage Lower GI bleed BPH (benign prostatic hyperplasia) GERD (gastroesophageal reflux disease) Peripheral neuropathy History of gastrointestinal bleeding Hx-TIA (transient ischemic attack) Chronic obstructive lung disease HTN (hypertension), benign Home Medications ?Medication ?Instructions ?Recorded ?Last Taken ?Type albuterol sulfate 90 mcg/actuation 2 puff inhalation Q 4H PRN Sob &/Or 07/05/14 04/08/19 23:00 History aerosol inhaler Wheezing 2 puffs ramipril 10 mg capsule 10 mg PO DAILY BP 07/05/14 0 11/08/24 History pantoprazole 40 mg tablet,delayed 40 mg PO DAILY gerd 08/21/14 11/08/24 History release cholecalciferol (vitamin D3) 25 3,000 unit PO BID Supp lement 11/23/14 11/08/24 History mcg (1,000 unit) tablet tamsulosin 0.4 mg capsule 0.4 mg PO QHS Prostate 11/2311/07/24 History budesonide-formoterol HFA 160 2 puff inhalation BID Br eathing 06/28/18 04/08/19 08:00 History mcg-4.5 mcg/actuation aerosol 1 puff inhaler fenofibrate 160 mg tablet 160 mg PO DAILY cholesterol 04/10/19 11/08/24 History albuterol sulfate 2.5 mg/3 mL 2.5 mg continuous nebuli zation Q4H 11/08/24 Unknown History (0.083 %) solution for nebulization PRN wheezing benzonatate 100 mg capsule 200 mg PO TID PRN cough 11/07/24 History gabapentin 600 mg tablet 600 mg PO TID 11/08/2411/08 History latanoprost 0.005 % eye drops 1 drp ophthalmic (eye) D AILY 11/08/24 11/08/24 History loperamide 2 mg capsule 2 mg PO Q2H PRN Diarrhea Unknown History Allergy/AdvReac Type Severity Reaction Status Date / Time cerivastatin sodium (From Allergy Severe Other Verified 11/08/24 18:02 Baycol) gemfibrozil (From Lopid) AdvReac Other Verified 11/08/24 18:02 meperidine (From Demerol) AdvReac Other Verified 11/08/24 18:02 Surgical History Total knee replacement status History of colonoscopy (~03/2019) History of esophagogastroduodenoscopy (EGD) (~03/2019) History of back surgery History of detached retina repair Status post vasectomy History of cholecystectomy History of left knee replacement History of back surgery Social History Smoking Status: Never smoker ROS ROS Narrative Review of Systems: Constitutional: Patient admits to fever as per HPI but denies chills or weight loss. Eyes: Patient denies changes in vision or discharge from eyes. ENT: Patient denies runny nose, sore throat or ear pain. Resp: Patient denies shortness of breath or cough. CV: Patient denies chest pain, palpitations, heart racing or lower extremity edema. GI: Patient denies abdominal pain, nausea, vomiting, diarrhea or constipation. : Patient denies dysuria, hematuria urinary frequency. MSK: Patient admits to Left wrist pain that is sharp and made worse with movement as per HPI. Skin: Patient admits to redness over the dorsal aspect of the Left wrist but he denies rash, abscess, wounds or jaundice. Psych: Patient denies symptoms of uncontrolled depression or anxiety. Neuro: Patient denies headache, paresthesias or focal neurologic deficits. Allergy: Patient denies lip swelling, tongue swelling or urticaria. Hematology: Patient denies easy bleeding or easy bruisability. Endocrinology: Patient denies polyuria, polydipsia, polyphagia or heat/cold intolerance. 14 point ROS otherwise negative save for positives noted above in HPI. Vital Signs Vital Signs Vital Signs: 11/08/24 17:59 11/08/24 19:02 11/08/24 19:47 Temperature 99.5 F H 98.2 F 98.2 F Temperature Source Oral Oral Pulse Rate 86 87 87 Respiratory Rate 20 H 18 18 Blood Pressure 124/72 H 118/71 118/71 Blood Pressure Mean 89 86 86 Pulse Ox 94 96 96 Oxygen Delivery Method Room Air Weight Weight: 198 lb Body Mass Index (BMI) 29.2 Physical Exam Const alert, oriented x3, no apparent distress, average body habitus and healthy appearing General Appearance: cooperative HEENT normocephalic, head/scalp atraumatic, hearing grossly normal bilaterally and moist oral mucous membranes Eyes PERRL, EOMs intact bilaterally and conjunctivae normal Neck no lymphadenopathy, supple and no JVD Resp normal respiratory effort, no retractions, no use of accessory muscles and clearto auscultation bilaterally Cardio regular rate and regular rhythm GI normal to inspection, nondistended, normoactive bowel sounds, soft to palpation,non-tender and non-distended Extremity Extremity Narrative: Patient has erythema and edema over the dorsal aspect of the Left wrist extending to the base of the left thumb with subtle cellulitic changes involvingthe area of the radial portion of the wrist onto the dorsum of the hand. He wasalso noted to have good range of motion with flexion and extension of the wrist but with pain noted. Patient noted to have advanced chronic arthritic changes to both the hand and the wrist. Skin Skin Narrative: Patient has erythema and edema over the dorsal aspect of the Left wrist extending to the base of the left thumb with subtle cellulitic changes involvingthe area of the radial portion of the wrist onto the dorsum of the hand. Neuro oriented x3, CN's II-XII intact bilaterally, moves all extremities and no focal motor deficits Sensorium / Orientation: awake, alert, oriented to person, oriented to place andoriented to time Speech: speech normal Psych affect normal Results Medical Records Data Attestation: I reviewed the patient's medical records Lab / Micro Data Attestation: I reviewed the patient's lab results. 11/08/24 18:28 11/08/24 18:28 Labs: Laboratory Results - last 24 hr 11/08/24 18:28: WBC 10.0, RBC 4.51 L, Hgb 14.3, Hct 43.0, MCV 95.3 H, MCH 31.7, MCHC 33.3, RDW Std Deviation 49.1 H, RDW Coeff of Nohemi 13.9, Plt Count 233, MPV 9.8, Immature Gran % (Auto) 0.400, Neut % (Auto) 68.3, Lymph % (Auto) 19.5, Pitt% (Auto) 9.4, Eos % (Auto) 1.8, Baso % (Auto) 0.6, Absolute Neuts (auto) 6.9, Absolute Lymphs (auto) 1.96, Nucleated RBC % 0, ESR < 1, Sodium 141, Potassium 4.6, Chloride 108, Carbon Dioxide 22.8, Anion Gap 10, BUN 37 H, Creatinine 1.26 H, Estim Creat Clear Calc 45.77 L, Est GFR (MDRD) Non-Af 55 L, BUN/Creatinine Ratio 29.3 H, Glucose 116 H, Uric Acid 4.5, Calcium 9.5, C-React Prot Ext Range 5.25 H Assessment & Plan Assessment/Plan (1) Cellulitis: QUALIFIERS: Site of cellulitis: extremity Site of cellulitis of extremity: upper extremity Laterality: left Qualified Code(s): L03.114 - Cellulitis of left upper limb (2) Swelling of joint of left wrist: (3) Left wrist pain: (4) Gout: QUALIFIERS: Gout site: unspecified site Gout etiology: unspecified cause Chronicity: unspecified Qualified Code(s): M10.9 - Gout, unspecified (5) Dehydration: (6) Overweight (BMI 25.0-29.9): PLAN: Plan 1. Left wrist Cellulitis and was also suspected to have septic arthritis of theLeft wrist in the setting of previously known Gout with associated Pain and Swelling - Admit to general medical floor. Continue empiric IV piperacillin-tazobactam began in the ER and await culture and sensitivity data including fluid analysis from recent arthrocentesis. General surgical consultation by is greatly appreciated. Acetaminophen as needed for [id number] (level 1-5/10) pain or fever. Give morphine IV as needed for severe (level 6-10/10) pain. 2. Dehydration evidenced by BUN/creatinine ratio of 29.3 present on admission complicating #1 - Give volume resuscitation and recheck renal indices daily to confirm improvement. 3. Overweight; with BMI of 29.2 this admission compounding #1 & #2 - Weight loss will be recommended. Check TSH. 4. Essential hypertension; on ramipril - Blood pressure currently well- controlled on this agent which will be continued. 5. Hypertriglyceridemia; on fenofibrate - Maintain current treatment check lipid profile. 6. History of asthma/COPD; on budesonide-formoterol twice daily - Stable no evidence of acute flare at this time. Resume budesonide-formoterol twice daily plus give as needed albuterol nebulizers. 7. History of TIA; with vertebrobasilar artery syndrome - Noted. 8. History of bilateral carotid stenosis - Noted. 9. PAD - Stable. 10. History of AAA - Noted with no complaints related to this issue at this time. 11. Peripheral neuropathy; on gabapentin 3 times daily - Continue current regimen. 12. Glaucoma; on latanoprost eyedrops - Resume latanoprost as previous. 13. History of detached retina; s/p repair - Noted. 14. BPH; on tamsulosin - Maintain current therapy. 15. History of vasectomy - Noted for the sake of completeness. 16. History of renal cyst - Noted. 17. History of renal calculi - Noted with no active complaints related to this issue. 18. History of cholecystectomy - Noted. 19. History of lower GI bleed due to diverticular hemorrhage; s/p panendoscopy (2019) - Noted no signs of bleeding at this time. 20. GERD; on pantoprazole - Resume PPI. 21. OA; s/p Left TKR along with history of back surgery - Give acetaminophen asneeded as per scale noted in #1. 22. DVT prophylaxis - Heparin 5,000U sq BID plus SCD's. Total time: Approximately (but not less than) 55 minutes. Charges/Coding Visit Charges Inpatient E&M: 75475 Init Hosp L2 11/09/24 0623 <Electronically signed by Evelyn Doss DO> Cosigner Signature (if applicable): CC: Dr. Evelyn Doss DO; Dr. Clarice Murillo MD~ Signed [facility] Work Phone: [phone] 821-205804-25-2025 History and physical note [facility] Medical Records Department [address] [place] [id number] H&P Exam - Hospitalist 11/08/242000 MR#: [id number] Acct: [id number] Name: PACO WHITNEY Rep #:[id number] : 1935 89 From: Evelyn Shah DO PCP: Dr. Clarice Murillo MD Status:AD M IN Location: [place] [id number] [facility] - General General Date of Admission: 11/08/24 Date of Service: 11/08/24 Chief Complaint: Left Wrist Redness, Swelling, Pain and Fever. HPI Narrative PACO WHITNEY, is a 89 M with a past medical history of essential hypertension; on ramipril, hypertriglyceridemia; on fenofibrate, overweight; with BMI of 29.2 this admission, history of asthma/COPD;on budesonide-formoterol twice daily, history of TIA; with vertebrobasilar artery syndrome, historyof bilateral carotid stenosis, PAD, history of AAA, peripheral neuropathy; on gabapentin 3 times daily, glaucoma; on latanoprost eyedrops, history of detached retina; s/p repair, BPH; on tamsulosin, history of vasectomy, history of renal cyst, historyof renal calculi, history of cholecystectomy, history of lower GI bleed due to diverticular hemorrhage; s/p panendoscopy (2019), GERD; on pantoprazole, OA; s/pLeft TKR along with history of back surgery and history of gout; affecting his first MTP joint who presents to [facility] ER complaining of Left wrist redness, swelling, pain and fever. Mr. Whitney reports his symptoms began approximately 6 hours prior to admission with the abrupt-onsetof redness and swelling around his Left wrist. He denies recent trauma or similar previous episodes. He initially went to urgent care and was noted to have a low-grade fever of 99.5 ?F and was then instructed to come to the ER for further evaluation and treatment. He admits to lethargy and worsening Left wrist pain that is sharp, moderate and made worse with movement. He denies associated chills,sweats, weight loss, changes in vision, runny nose,sore throat, ear pain, chest pain, heart racing,palpitations, shortness of breath, cough, wheezing, abdominal pain, nausea, vomiting, diarrhea, dysuria, hematuria, headache or rash. In the ER he was diagnosed with Left wrist Cellulitis and was also suspected to have septic arthritis of the Left wrist with the ER physician then contacting Dr. Rocha of the surgical service who performed arthrocentesis of the Left wrist joint with the patient noted to have hemarthrosis with ~2 cc of bloody fluid removed with cultures, crystal studies and other fluid analysis pending at this time with an elevated CRP of 5.25 mg/L and a normal serum uric acid of 4.5 mg/dL. He was also noted to have laboratoryevidence of Dehydration evidenced by BUN/creatinineratio of 29.3 present on admission. He was then empirically treated with IV piperacillin-tazobactamand then transferred to the general medical floor for ongoing care for stay that is expected to extend beyond 2 midnights. [facility] Medical History PAD (peripheral artery disease) Renal cyst Vertebrobasilar artery syndrome Diverticulosis Kidney stone Lung nodule AAA (abdominal aortic aneurysm) Bilateral carotid artery stenosis Asthma Arthritis Diverticular hemorrhage Lower GI bleed BPH (benign prostatic hyperplasia) GERD (gastroesophageal reflux disease) Peripheral neuropathy History of gastrointestinal bleeding Hx-TIA (transient ischemic attack) Chronic obstructive lung disease HTN (hypertension), benign Home Medications ?Medication ?Instructions ?Recorded ?Last Taken ?Type albuterol sulfate 90 mcg/actuation 2 puff inhalation Q 4H PRN Sob &/Or 07/05/14 04/08/19 23:00 History aerosol inhaler Wheezing 2 puffs ramipril 10 mg capsule 10 mg PO DAILY BP 07/05/14 0 11/08/24 History pantoprazole 40 mg tablet,delayed 40 mg PO DAILY gerd 08/21/14 11/08/24 History release cholecalciferol (vitamin D3) 25 3,000 unit PO BID Supp lement 11/23/14 11/08/24 History mcg (1,000 unit) tablet tamsulosin 0.4 mg capsule 0.4 mg PO QHS Prostate 11/2311/07/24 History budesonide-formoterol HFA 160 2 puff inhalation BID Br eathing 06/28/18 04/08/19 08:00 History mcg-4.5 mcg/actuation aerosol 1 puff inhaler fenofibrate 160 mg tablet 160 mg PO DAILY cholesterol 04/10/19 11/08/24 History albuterol sulfate 2.5 mg/3 mL 2.5 mg continuous nebuli zation Q4H 11/08/24 Unknown History (0.083 %) solution for nebulization PRN wheezing benzonatate 100 mg capsule 200 mg PO TID PRN cough 11/07/24 History gabapentin 600 mg tablet 600 mg PO TID 11/08/2411/08 History latanoprost 0.005 % eye drops 1 drp ophthalmic (eye) D AILY 11/08/24 11/08/24 History loperamide 2 mg capsule 2 mg PO Q2H PRN Diarrhea Unknown History Allergy/AdvReac Type Severity Reaction Status Date / Time cerivastatin sodium (From Allergy Severe Other Verified 11/08/24 18:02 Baycol) gemfibrozil (From Lopid) AdvReac Other Verified 11/08/24 18:02 meperidine (From Demerol) AdvReac Other Verified 11/08/24 18:02 Surgical History Total knee replacement status History of colonoscopy (~03/2019) History of esophagogastroduodenoscopy (EGD) (~03/2019) History of back surgery History of detached retina repair Status post vasectomy History of cholecystectomy History of left knee replacement History of back surgery Social History Smoking Status: Never smoker ROS ROS Narrative Review of Systems: Constitutional: Patient admits to fever as per HPI but denies chills or weight loss. Eyes: Patient denies changes in vision or discharge from eyes. ENT: Patient denies runny nose, sore throat or ear pain. Resp: Patient denies shortness of breath or cough. CV: Patient denies chest pain, palpitations, heart racing or lower extremity edema. GI: Patient denies abdominal pain, nausea, vomiting, diarrhea or constipation. : Patient denies dysuria, hematuria urinary frequency. MSK: Patient admits to Left wrist pain that is sharp and made worse with movement as per HPI. Skin: Patient admits to redness over the dorsal aspect of the Left wrist but he denies rash, abscess, wounds or jaundice. Psych: Patient denies symptoms of uncontrolled depression or anxiety. Neuro: Patient denies headache, paresthesias or focal neurologic deficits. Allergy: Patient denies lip swelling, tongue swelling or urticaria. Hematology: Patient denies easy bleeding or easy bruisability. Endocrinology: Patient denies polyuria, polydipsia, polyphagia or heat/cold intolerance. 14 point ROS otherwise negative save for positives noted above in HPI. Vital Signs Vital Signs Vital Signs: 11/08/24 17:59 11/08/24 19:02 11/08/24 19:47 Temperature 99.5 F H 98.2 F 98.2 F Temperature Source Oral Oral Pulse Rate 86 87 87 Respiratory Rate 20 H 18 18 Blood Pressure 124/72 H 118/71 118/71 Blood Pressure Mean 89 86 86 Pulse Ox 94 96 96 Oxygen Delivery Method Room Air Weight Weight: 198 lb Body Mass Index (BMI) 29.2 Physical Exam Const alert, oriented x3, no apparent distress, average body habitus and healthy appearing General Appearance: cooperative HEENT normocephalic, head/scalp atraumatic, hearing grossly normal bilaterally and moist oral mucous membranes Eyes PERRL, EOMs intact bilaterally and conjunctivae normal Neck no lymphadenopathy, supple and no JVD Resp normal respiratory effort, no retractions, no use of accessory muscles and clearto auscultation bilaterally Cardio regular rate and regular rhythm GI normal to inspection, nondistended, normoactive bowel sounds, soft to palpation,non-tender and non-distended Extremity Extremity Narrative: Patient has erythema and edema over the dorsal aspect of the Left wrist extending to the base of the left thumb with subtle cellulitic changes involvingthe area of the radial portion of the wrist onto the dorsum of the hand. He wasalso noted to have good range of motion with flexion and extension of the wrist but with pain noted. Patient noted to have advanced chronic arthritic changes to both the hand and the wrist. Skin Skin Narrative: Patient has erythema and edema over the dorsal aspect of the Left wrist extending to the base of the left thumb with subtle cellulitic changes involvingthe area of the radial portion of the wrist onto the dorsum of the hand. Neuro oriented x3, CN's II-XII intact bilaterally, moves all extremities and no focal motor deficits Sensorium / Orientation: awake, alert, oriented to person, oriented to place andoriented to time Speech: speech normal Psych affect normal Results Medical Records Data Attestation: I reviewed the patient's medical records Lab / Micro Data Attestation: I reviewed the patient's lab results. 11/08/24 18:28 11/08/24 18:28 Labs: Laboratory Results - last 24 hr 11/08/24 18:28: WBC 10.0, RBC 4.51 L, Hgb 14.3, Hct 43.0, MCV 95.3 H, MCH 31.7, MCHC 33.3, RDW Std Deviation 49.1 H, RDW Coeff of Nohemi 13.9, Plt Count 233, MPV 9.8, Immature Gran % (Auto) 0.400, Neut % (Auto) 68.3, Lymph % (Auto) 19.5, Pitt% (Auto) 9.4, Eos % (Auto) 1.8, Baso % (Auto) 0.6, Absolute Neuts (auto) 6.9, Absolute Lymphs (auto) 1.96, Nucleated RBC % 0, ESR < 1, Sodium 141, Potassium 4.6, Chloride 108, Carbon Dioxide 22.8, Anion Gap 10, BUN 37 H, Creatinine 1.26 H, Estim Creat ClearCalc 45.77 L, Est GFR (MDRD) Non-Af 55 L, BUN/Creatinine Ratio 29.3 H, Glucose 116 H, Uric Acid 4.5, Calcium 9.5, C-React Prot Ext Range 5.25 H Assessment & Plan Assessment/Plan (1) Cellulitis: QUALIFIERS: Site of cellulitis: extremity Site of cellulitis of extremity: upper extremity Laterality: left Qualified Code(s): L03.114 - Cellulitis of left upper limb (2) Swelling of joint of left wrist: (3) Left wrist pain: (4) Gout: QUALIFIERS: Gout site: unspecified site Gout etiology: unspecified cause Chronicity: unspecified Qualified Code(s): M10.9 - Gout, unspecified (5) Dehydration: (6) Overweight (BMI 25.0-29.9): PLAN: Plan 1. Left wrist Cellulitis and was also suspected to have septic arthritis of theLeft wrist in the setting of previously known Gout with associated Pain and Swelling - Admit to general medical floor. Continue empiric IV piperacillin- tazobactam began in the ER and await culture and sensitivity data including fluid analysis from recent arthrocentesis. General surgical consultation by is greatly appreciated. Acetaminophen as needed for [id number] (level 1-5/10) pain or fever. Give morphine IV as needed for severe (level 6- 10/10) pain. 2. Dehydration evidenced by BUN/creatinine ratio of 29.3 present on admission complicating #1 - Give volume resuscitation and recheck renal indices daily to confirm improvement. 3. Overweight; with BMI of 29.2 this admission compounding #1 & #2 - Weight loss will be recommended. Check TSH. 4. Essential hypertension; on ramipril - Blood pressure currently well- controlled on this agent which will be continued. 5. Hypertriglyceridemia; on fenofibrate - Maintain current treatment check lipid profile. 6. History of asthma/COPD; on budesonide-formoterol twice daily - Stable no evidence of acute flareat this time. Resume budesonide-formoterol twice daily plus give as needed albuterol nebulizers. 7. History of TIA; with vertebrobasilar artery syndrome - Noted. 8. History of bilateral carotid stenosis - Noted. 9. PAD - Stable. 10. History of AAA - Noted with no complaints related to this issue at this time. 11. Peripheral neuropathy; on gabapentin 3 times daily - Continue current regimen. 12. Glaucoma; on latanoprost eyedrops - Resume latanoprost as previous. 13. History of detached retina; s/p repair - Noted. 14. BPH; on tamsulosin - Maintain current therapy. 15. History of vasectomy - Noted for the sake of completeness. 16. History of renal cyst - Noted. 17. History of renal calculi - Noted with no active complaints related to this issue. 18. History of cholecystectomy - Noted. 19. History of lower GI bleed due to diverticular hemorrhage; s/p panendoscopy (2019) - Noted no signs of bleeding at this time. 20. GERD; on pantoprazole - Resume PPI. 21. OA; s/p Left TKR along with history of back surgery - Give acetaminophen asneeded as per scale noted in #1. 22. DVT prophylaxis - Heparin 5,000U sq BID plus SCD's. Total time: Approximately (but not less than) 55 minutes. Charges/Coding Visit Charges Inpatient E&M: 90107 Init Hosp L2 11/09/24 0640 Cosigner Signature (if applicable): CC: Dr. Evelyn Doss DO; Dr. Clarice Murillo MD~ Signed [facility]04-25-2025 Discharge summary Author Eduardo Hartley [facility] Note Date/Time November 08, 2024 10: 09pm [facility] Medical Records Department [address] [place] [address] Emergency Department Summary 11/08/24 MR#: [id number] Acct: [id number] Name: PACO WHITNEY Rep #:[id number] : 1935 89 From: Eduardo Hartley DO PCP: Dr. Clarice Murillo MD Status:AD M IN Location: [place] [address] HPI History of Present Illness Chief Complaint: Upper Extremity Injury Detail of Chief Complaint: Pain and swelling and redness to left wrist Informant: patient Narrative Narrative: Patient presents the emergency department with pain swelling and redness to his wrist that started about 6 hours ago. He denies trauma. Patient went to urgentcare and was referred to the emergency department. He was told he had a low-grade fever there to 99.5. No history of gout. Denies chills or sweats PFSH [facility] Medical History PAD (peripheral artery disease) Renal cyst Vertebrobasilar artery syndrome Diverticulosis Kidney stone Lung nodule AAA (abdominal aortic aneurysm) Bilateral carotid artery stenosis Asthma Arthritis Diverticular hemorrhage Lower GI bleed BPH (benign prostatic hyperplasia) GERD (gastroesophageal reflux disease) Peripheral neuropathy History of gastrointestinal bleeding Hx-TIA (transient ischemic attack) Chronic obstructive lung disease HTN (hypertension), benign Home Medications ?Medication ?Instructions ?Recorded ?Last Taken ?Type albuterol sulfate 90 mcg/actuation 2 puff inhalation Q 4H PRN Sob &/Or 07/05/14 04/08/19 23:00 History aerosol inhaler Wheezing 2 puffs ramipril 10 mg capsule 10 mg PO DAILY BP 07/05/14 0 11/08/24 History pantoprazole 40 mg tablet,delayed 40 mg PO DAILY gerd 08/21/14 11/08/24 History release cholecalciferol (vitamin D3) 25 3,000 unit PO BID Supp lement 11/23/14 11/08/24 History mcg (1,000 unit) tablet tamsulosin 0.4 mg capsule 0.4 mg PO QHS Prostate 11/2311/07/24 History budesonide-formoterol HFA 160 2 puff inhalation BID Br eathing 06/28/18 04/08/19 08:00 History mcg-4.5 mcg/actuation aerosol 1 puff inhaler fenofibrate 160 mg tablet 160 mg PO DAILY cholesterol 04/10/19 11/08/24 History albuterol sulfate 2.5 mg/3 mL 2.5 mg continuous nebuli zation Q4H 11/08/24 Unknown History (0.083 %) solution for nebulization PRN wheezing benzonatate 100 mg capsule 200 mg PO TID PRN cough 11/07/24 History gabapentin 600 mg tablet 600 mg PO TID 11/08/2411/08 History latanoprost 0.005 % eye drops 1 drp ophthalmic (eye) D AILY 11/08/24 11/08/24 History loperamide 2 mg capsule 2 mg PO Q2H PRN Diarrhea Unknown History Allergy/AdvReac Type Severity Reaction Status Date / Time cerivastatin sodium (From Allergy Severe Other Verified 11/08/24 18:02 Baycol) gemfibrozil (From Lopid) AdvReac Other Verified 11/08/24 18:02 meperidine (From Demerol) AdvReac Other Verified 11/08/24 18:02 Surgical History Total knee replacement status History of colonoscopy (~03/2019) History of esophagogastroduodenoscopy (EGD) (~03/2019) History of back surgery History of detached retina repair Status post vasectomy History of cholecystectomy History of left knee replacement History of back surgery Social History Smoking Status: Never smoker ROS ROS ED Review of Systems ROS Unobtainable: other Constitutional Constitutional ED: Reports lethargy; Denies chills, fever(s), sweats or weight loss Eyes Eyes: Denies blurry vision, change in vision or diplopia ENT ENT ED: Denies rhinorrhea or sore throat Cardiovascular Cardiovascular: Denies chest pain, orthopnea or racing heartbeat Respiratory/Chest Respiratory/Chest: Denies cough, dyspnea, dyspnea on exertion, orthopnea or sputum Gastrointestinal Gastrointestinal: Denies abdominal pain, diarrhea, nausea or vomiting Genitourinary Genitourinary ED: Denies dysuria, hematuria or urinary frequency Musculoskeletal Musculoskeletal: Reports other Details: Left wrist pain and swelling ; Denies arthralgias, back pain, myalgias or neck pain Integumentary Denies abscess, Abrasions or rash Neurologic Neurologic: Denies headache(s) or weakness Psychiatric Psychiatric: Denies anxiety, depression or suicidal thoughts Endocrine Endocrinology: Denies polydipsia, polyphagia or polyuria Hematologic/Lymphatic Hematologic/Lymphatic: Denies easy bleeding, easy bruising or lymphadenopathy Allergic/Immunologic Allergic/Immunologic ED: Denies mouth swelling, tongue swelling or urticaria EXAM Physical Exam Const Vital Signs: 11/08/24 17:59 Temperature 99.5 F H Temperature Source Oral Pulse Rate 86 Respiratory Rate 20 H Blood Pressure 124/72 H Blood Pressure Mean 89 Pulse Ox 94 Positive well nourished and well developed General Appearance ED: well developed and NAD HEENT Reports TM's clear and moist mucous membranes normocephalic and atraumatic; Negative for trauma or tenderness Tympanic Membrane ED: Yes TM's clear Eyes PERRL and EOMs intact bilaterally General Eye ED: Negative for pale conjunctiva or scleral icterus Neck no lymphadenopathy, supple and no JVD General: Negative for tenderness Chest Wall inspection of chest normal and palpation of chest normal Chest: Negative for tenderness Resp normal respiratory effort and clear to auscultation bilaterally Effort and Inspection: Negative for respiratory distress or pain with movement Auscultation: Negative for rhonchi, wheezes or diminished lung sounds Cardio regular rate, regular rhythm, S1 normal heart sound, S2 normal heart sound and no murmurs Peripheral Pulses: pulses 2+ throughout GI normal to inspection, nondistended, normoactive bowel sounds, soft to palpation,non-tender, non-distended and no masses Back/Spine no CVA tenderness and no thoracic nor lumbar tenderness Extremity Extremity Narrative: Left wrist-patient has diffuse swelling to the base of the left thumb with erythema and subtle cellulitic changes involving the area of the radial wrist onto the dorsum of the hand. Pain with range of motion flexion extension of thewrist. He does have arthritic changes noted to the hand and wrist. General Extremety ED: Negative for edema General Extremity: Negative for edema Neuro oriented x3, CN's II-XII intact bilaterally, no sensory deficits noted and gait normal Sensorium / Orientation: awake, alert, oriented to person, oriented to place andoriented to time Motor Exam: strength 5/5 throughout and strength abnormal Psych mental status grossly normal Skin no rashes or lesions noted and no wounds MDM MDM MDM Narrative Medical decision making narrative: Patient presents with pain and swelling to his left wrist. No trauma. Low-grade fever. Sent to ER from urgent care for concern for infection. Patient had an IV line established. CBC with differential obtained showed a WBC count of 10.0. Chemistries unremarkable. C-reactive protein elevated at 5. Sed ratepending. Three-view x- rays of the left wrist obtained interpreted by myself as no evidence of fracture. He had degenerative changes without any gas in the tissues noted. I did discuss case with Dr. Rocha who presented to the emergencydepartment evaluate patient as I had some concern for possibility of septic joint. Patient had a arthrocentesis performed by who ordered diagnostic studies on the fluid. I was asked to have patient admitted by hospitalist for cellulitis and he will follow in consultation. I did start patient on Zosyn IV. Lab Data Attestation: I reviewed the patient's lab results. Radiography Diagnostic Testing: Three-view x-rays of the left wrist obtained interpreted by myself no evidence of fracture dislocation. Patient had degenerative changes and arthritic changesnoted. Radiology in agreement. Three-view x-rays of the left hand obtained interpreted by myself as no obvious fractures or dislocations but did have significant degenerative and arthritic changes. Radiology agreed and felt there may be changes of crystalline arthropathy. Discharge Plan Dx/Rx/DC Orders Clinical Impression: Cellulitis, History of hypertension, Left wrist pain Disposition Disposition: Acute Care Hospital [facility] What to do if you have Problems For any increased pain, shortness of breath, bleeding, nausea or vomiting, chestpain, or any unexpected problems, contact your Primary Care Provider. Call [facility] ([phone]) or report to the closest Emergency Room. Call 911 if necessary. 11/08/24 6135 <Electronically signed by Eduardo Hartley DO> Cosigner Signature (if applicable): CC: Dr. Clarice Murillo MD ~ Signed [facility] Work Phone: 1(145) 979-582304-24-2025 Evaluation note* Diagnosis Onset Date Resolution Status Admit Date Cellulitis acute November 08, 8:32pm Dehydration acute November 08, 2 025 8:32pm Gout acute November 08 8:32pm History of hypertension acute A pril 2024 8:32pm Left wrist pain acute October 8:32pm Overweight (BMI 25.0-29.9) acute November 08, 2024 8:32pm Swelling of joint of left wrist acut e November 08, 2024 8:32pm [facility] Work Phone: 1(938) 880-548104-24-2025 Discharge summary [facility] Medical Records Department [address] [place] [address] Emergency Department Summary 11/08/24 MR#: [id number] Acct: [id number] Name: PACO WHITNEY Rep #:[id number] : 1935 89 From: Eduardo Hartley DO PCP: Dr. Clarice Murillo MD Status:AD M IN Location: [place] [address] HPI History of Present Illness Chief Complaint: Upper Extremity Injury Detail of Chief Complaint: Pain and swelling and redness to left wrist Informant: patient Narrative Narrative: Patient presents the emergency department with pain swelling and redness to his wrist that started about 6 hours ago. He denies trauma. Patient went to urgentcare and was referred to the emergency department. He was told he had a low-grade fever there to 99.5. No history of gout. Denies chills or sweats PFSH PFSH Medical History PAD (peripheral artery disease) Renal cyst Vertebrobasilar artery syndrome Diverticulosis Kidney stone Lung nodule AAA (abdominal aortic aneurysm) Bilateral carotid artery stenosis Asthma Arthritis Diverticular hemorrhage Lower GI bleed BPH (benign prostatic hyperplasia) GERD (gastroesophageal reflux disease) Peripheral neuropathy History of gastrointestinal bleeding Hx-TIA (transient ischemic attack) Chronic obstructive lung disease HTN (hypertension), benign Home Medications ?Medication ?Instructions ?Recorded ?Last Taken ?Type albuterol sulfate 90 mcg/actuation 2 puff inhalation Q 4H PRN Sob &/Or 07/05/14 04/08/19 23:00 History aerosol inhaler Wheezing 2 puffs ramipril 10 mg capsule 10 mg PO DAILY BP 07/05/14 0 11/08/24 History pantoprazole 40 mg tablet,delayed 40 mg PO DAILY gerd 08/21/14 11/08/24 History release cholecalciferol (vitamin D3) 25 3,000 unit PO BID Supp lement 11/23/14 11/08/24 History mcg (1,000 unit) tablet tamsulosin 0.4 mg capsule 0.4 mg PO QHS Prostate 11/2311/07/24 History budesonide-formoterol HFA 160 2 puff inhalation BID Br eathing 06/28/18 04/08/19 08:00 History mcg-4.5 mcg/actuation aerosol 1 puff inhaler fenofibrate 160 mg tablet 160 mg PO DAILY cholesterol 04/10/19 11/08/24 History albuterol sulfate 2.5 mg/3 mL 2.5 mg continuous nebuli zation Q4H 11/08/24 Unknown History (0.083 %) solution for nebulization PRN wheezing benzonatate 100 mg capsule 200 mg PO TID PRN cough 11/07/24 History gabapentin 600 mg tablet 600 mg PO TID 11/08/2411/08 History latanoprost 0.005 % eye drops 1 drp ophthalmic (eye) D AILY 11/08/24 11/08/24 History loperamide 2 mg capsule 2 mg PO Q2H PRN Diarrhea Unknown History Allergy/AdvReac Type Severity Reaction Status Date / Time cerivastatin sodium (From Allergy Severe Other Verified 11/08/24 18:02 Baycol) gemfibrozil (From Lopid) AdvReac Other Verified 11/08/24 18:02 meperidine (From Demerol) AdvReac Other Verified 11/08/24 18:02 Surgical History Total knee replacement status History of colonoscopy (~03/2019) History of esophagogastroduodenoscopy (EGD) (~03/2019) History of back surgery History of detached retina repair Status post vasectomy History of cholecystectomy History of left knee replacement History of back surgery Social History Smoking Status: Never smoker ROS ROS ED Review of Systems ROS Unobtainable: other Constitutional Constitutional ED: Reports lethargy; Denies chills, fever(s), sweats or weight loss Eyes Eyes: Denies blurry vision, change in vision or diplopia ENT ENT ED: Denies rhinorrhea or sore throat Cardiovascular Cardiovascular: Denies chest pain, orthopnea or racing heartbeat Respiratory/Chest Respiratory/Chest: Denies cough, dyspnea, dyspnea on exertion, orthopnea or sputum Gastrointestinal Gastrointestinal: Denies abdominal pain, diarrhea, nausea or vomiting Genitourinary Genitourinary ED: Denies dysuria, hematuria or urinary frequency Musculoskeletal Musculoskeletal: Reports other Details: Left wrist pain and swelling ; Denies arthralgias, back pain, myalgias or neck pain Integumentary Denies abscess, Abrasions or rash Neurologic Neurologic: Denies headache(s) or weakness Psychiatric Psychiatric: Denies anxiety, depression or suicidal thoughts Endocrine Endocrinology: Denies polydipsia, polyphagia or polyuria Hematologic/Lymphatic Hematologic/Lymphatic: Denies easy bleeding, easy bruising or lymphadenopathy Allergic/Immunologic Allergic/Immunologic ED: Denies mouth swelling, tongue swelling or urticaria EXAM Physical Exam Const Vital Signs: 11/08/24 17:59 Temperature 99.5 F H Temperature Source Oral Pulse Rate 86 Respiratory Rate 20 H Blood Pressure 124/72 H Blood Pressure Mean 89 Pulse Ox 94 Positive well nourished and well developed General Appearance ED: well developed and NAD HEENT Reports TM's clear and moist mucous membranes normocephalic and atraumatic; Negative for trauma or tenderness Tympanic Membrane ED: Yes TM's clear Eyes PERRL and EOMs intact bilaterally General Eye ED: Negative for pale conjunctiva or scleral icterus Neck no lymphadenopathy, supple and no JVD General: Negative for tenderness Chest Wall inspection of chest normal and palpation of chest normal Chest: Negative for tenderness Resp normal respiratory effort and clear to auscultation bilaterally Effort and Inspection: Negative for respiratory distress or pain with movement Auscultation: Negative for rhonchi, wheezes or diminished lung sounds Cardio regular rate, regular rhythm, S1 normal heart sound, S2 normal heart sound and no murmurs Peripheral Pulses: pulses 2+ throughout GI normal to inspection, nondistended, normoactive bowel sounds, soft to palpation,non-tender, non-distended and no masses Back/Spine no CVA tenderness and no thoracic nor lumbar tenderness Extremity Extremity Narrative: Left wrist-patient has diffuse swelling to the base of the left thumb with erythema and subtle cellulitic changes involving the area of the radial wrist onto the dorsum of the hand. Pain with range of motion flexion extension of thewrist. He does have arthritic changes noted to the hand and wrist. General Extremety ED: Negative for edema General Extremity: Negative for edema Neuro oriented x3, CN's II-XII intact bilaterally, no sensory deficits noted and gait normal Sensorium / Orientation: awake, alert, oriented to person, oriented to place andoriented to time Motor Exam: strength 5/5 throughout and strength abnormal Psych mental status grossly normal Skin no rashes or lesions noted and no wounds MDM MDM MDM Narrative Medical decision making narrative: Patient presents with pain and swelling to his left wrist. No trauma. Low-grade fever. Sent to ER from urgent care for concern for infection. Patient had an IV line established. CBC with differentialobtained showed a WBC count of 10.0. Chemistries unremarkable. C-reactive protein elevated at 5. Sed ratepending. Three-view x-rays of the left wrist obtained interpreted by myself as no evidence of fracture. He had degenerative changes without any gas in the tissues noted. I did discuss case with Dr. Rocha who presented to the emergencydepartment evaluate patient as I had some concern for possibility of septic joint. Patient had a arthrocentesis performed by who ordered diagnostic studies on the fluid. I was asked to have patient admitted by hospitalist for cellulitis and he will follow in consultation. I did start patient on Zosyn IV. Lab Data Attestation: I reviewed the patient's lab results. Radiography Diagnostic Testing: Three-view x-rays of the left wrist obtained interpreted by myself no evidence of fracture dislocation. Patient had degenerative changes and arthritic changesnoted. Radiology in agreement. Three-view x-rays of the left hand obtained interpreted by myself as no obvious fractures or dislocations but did have significant degenerative and arthritic changes. Radiology agreed and felt there may be changes of crystalline arthropathy. Discharge Plan Dx/Rx/DC Orders Clinical Impression: Cellulitis, History of hypertension, Left wrist pain Disposition Disposition: Acute Care Hospital [facility] What to do if you have Problems For any increased pain, shortness of breath, bleeding, nausea or vomiting, chestpain, or any unexpected problems, contact your Primary Care Provider. Call [facility] ([phone]) or report tothe closest Emergency Room. Call 911 if necessary. 11/08/242208 Cosigner Signature (if applicable): CC: Dr. Clarice Murillo MD ~ Signed [facility]04-24-2025 Consult note Author Dennis Rocha [facility] Note Date/Time November 08, 2024 7:4 1pm [facility] Medical Records Department [address] [place] [address] Consultation - Surgical 11/08/24 1853 MR#: [id number] Acct: [id number] Name: PACO WHITNEY Rep #:[id number] : 1935 89 From: Dennis Rocha MD PCP: Dr. Clarice Murillo MD Status:RE G ER Location: ED Assessment & Plan Assessment/Plan (1) Swelling of joint of left wrist: PLAN: Concern for septic arthritis versus an inflammatory arthritis v. trauma Given concern for septic joint by ED and history of inflammatory arthritis (in the setting of no reported trauma), I recommended joint tap. I talked the patient about the risks, benefits, and alternatives to aspiration of the left wrist joint. I talked to him about how this could be both diagnostic and therapeutic. He elected to proceed. Hemarthrosis identified (See photo) which was sent to the lab for cell studies and cultures. I am going to recommend admission to medicine for IV antibiotics empirically. He was in agreement. I am suspicious for trauma rather than an infection (patient may not have realized that he bumped his wrist?). Plan for empiric IV antibiotics and admission to medicine Plan for rest and elevation of the left upper extremity (blue arm elevator) I wrapped the hand/wrist with a gentle FEDERICO. Plastic surgery will follow F/u hand xray PLAN: Plan Procedure details (left wrist aspiration): Patient signed consent A timeout was performed with the nursing staff The left wrist was prepped and draped in sterile fashion, then anesthetized with1% lidocaine. A 21-gauge needle was used to aspirate the left wrist joint through the 3/4 interval just distal to Elvis's tubercle with the patient in flexion and ulnar deviation. 2 cc of bloody fluid was removed. Patient tolerated the procedure well and a Band-Aid was applied. Blood fluid sent for cell and crystal studies, as well as cultures. HPI Consult Data Date of Consult: 11/08/24 HPI Narrative HPI Narrative: PACO WHITNEY is a 89 M with past medical history of hypertension COPD, , TIAs, and peripheral neuropathy who presents today for left wrist pain of 6 hours duration. He denies any trauma. He presented to the urgent care earlier todaywho referred him immediately to the emergency department. Today in the emergency department he reports left wrist pain that is sharp and improved with rest and elevation. He has a history of gout in the 1st MTP joint. He has stable vital signs and is afebrile. His white blood cell count is wnl (10). 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 [facility] [facility] Medical History PAD (peripheral artery disease) Renal cyst Vertebrobasilar artery syndrome Diverticulosis Kidney stone Lung nodule AAA (abdominal aortic aneurysm) Bilateral carotid artery stenosis Asthma Arthritis Diverticular hemorrhage Lower GI bleed BPH (benign prostatic hyperplasia) GERD (gastroesophageal reflux disease) Peripheral neuropathy History of gastrointestinal bleeding Hx-TIA (transient ischemic attack) Chronic obstructive lung disease HTN (hypertension), benign Home Medications ?Medication ?Instructions ?Recorded ?Last Taken ?Type albuterol sulfate 90 mcg/actuation 2 puff inhalation Q 4H PRN Sob &/Or 07/05/14 04/08/19 23:00 History aerosol inhaler Wheezing 2 puffs ramipril 10 mg capsule 10 mg PO DAILY BP 07/05/14 0 11/08/24 History pantoprazole 40 mg tablet,delayed 40 mg PO DAILY gerd 08/21/14 11/08/24 History release cholecalciferol (vitamin D3) 25 3,000 unit PO BID Supp lement 11/23/14 11/08/24 History mcg (1,000 unit) tablet tamsulosin 0.4 mg capsule 0.4 mg PO QHS Prostate 11/2311/07/24 History budesonide-formoterol HFA 160 2 puff inhalation BID Br eathing 06/28/18 04/08/19 08:00 History mcg-4.5 mcg/actuation aerosol 1 puff inhaler fenofibrate 160 mg tablet 160 mg PO DAILY cholesterol 04/10/19 11/08/24 History albuterol sulfate 2.5 mg/3 mL 2.5 mg continuous nebuli zation Q4H 11/08/24 Unknown History (0.083 %) solution for nebulization PRN wheezing benzonatate 100 mg capsule 200 mg PO TID PRN cough 11/07/24 History gabapentin 600 mg tablet 600 mg PO TID 11/08/2411/08 History latanoprost 0.005 % eye drops 1 drp ophthalmic (eye) D AILY 11/08/24 11/08/24 History loperamide 2 mg capsule 2 mg PO Q2H PRN Diarrhea Unknown History Allergy/AdvReac Type Severity Reaction Status Date / Time cerivastatin sodium (From Allergy Severe Other Verified 11/08/24 18:02 Baycol) gemfibrozil (From Lopid) AdvReac Other Verified 11/08/24 18:02 meperidine (From Demerol) AdvReac Other Verified 11/08/24 18:02 Surgical History Total knee replacement status History of colonoscopy (~03/2019) History of esophagogastroduodenoscopy (EGD) (~03/2019) History of back surgery History of detached retina repair Status post vasectomy History of cholecystectomy History of left knee replacement History of back surgery Social History Smoking Status: Never smoker Physical Exam Narrative Left upper Extremity Inspection: Arthritic hands. Redness and swelling of the left wrist. Some swelling on the dorsal/radial side of the thenar eminence consistent with hematoma (it is not warm or indurated as an abscess would be). Palpation: Pain with axial loading of the left wrist. Motor: Able to bend and extend all MP, PIP, and DIP joints. 5 out of 5 lead electrician strength. Sensory: Intact to light touch on the radial and ulnar borders. Vascular: Finger tips are warm and well perfused with <2 second capillary refill. Const alert and oriented x3 Lab / Micro Data 11/08/24 18:28 11/08/24 18:28 Charges/Coding Multi Select Codes Visit Charges Office Visit/Consults: 92049 OV L5 New 60min (This visit took greater than 60 minutes (history, physical exam, review of imaging). Procedure performed as well) 11/08/241940 <Electronically signed by Dennis Rocha MD> Cosigner Signature (if applicable): CC: Dr. Clarice Murillo MD~ Signed [facility] Work Phone: [phone]) 571-446704-24-2025 Radiology Diagnostic study note [facility] Imaging Services [address] [place] [address] Hand Min 3 Views MR#: [id number] Acct: [id number] Name: DEVONTEPACO Josefina Rep #: [id number] : 1935 M 89 From: Davie Pino DO PCP: Dr. Clarice Murillo MD Status: RE G ER Study:Hand Min 3 Views Date of Exam: Exam# [id number] Ordering Dr: Lauryn Rocha MD PROCEDURE: HAND MIN 3 VIEWS 11/08/2024 REASON FOR EXAM: WRIST PAIN (POSSIBLE SEPTIC ARTHRITIS) TECHNIQUE: Three views of the left hand COMPARISON: None FINDINGS: See impression RAD/Hand Min 3 Views IMPRESSION: Negative for acute displaced fracture or dislocation. Severe osteopenia. 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 Marked diffuse soft tissue swelling about the wrist. Reading Location: [facility] CC: Dr. Clarice Murillo MD; Dr. Dennis Rocha MD ~ Reefer Engineer: Signed [facility]04-24-2025 Radiology Diagnostic study note [facility] Imaging Services [address] [place] [address] Wrist min 3 Views MR#: [id number] Acct: [id number] Name: PACO WHITNEY Rep #: [id number] : 1935 M 89 From: Davie Pino DO PCP: Dr. Clarice Murillo MD Status: RE Sue ER Study:Wrist min 3 Views Date of Exam: Exam# [id number] Ordering Dr: Tiago Hartley DO EXAM: Left wrist radiographs CLINICAL HISTORY: Pain, swelling COMPARISON: None TECHNIQUE: Three views of the left wrist FINDINGS: See impression RAD/Wrist min 3 Views IMPRESSION: Negative for acute displaced fracture or dislocation. 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 Severe diffuse soft tissue swelling about the wrist. No cortical destruction. Osteopenia. Reading Location: [facility] CC: Dr. Clarice Murillo MD; Dr. Eduardo Hartley DO ~ Reefer Engineer: Signed [facility]04-24-2025 Consult note [facility] Medical Records Department [address] [place] [address] Consultation - Surgical 11/08/24 1853 MR#: [id number] Acct: [id number] Name: PACO WHITNEY Rep #:[id number] : 1935 89 From: Dennis Rocha MD PCP: Dr. Clarice Murillo MD Status:TIAGO [facility] ER Location: ED Assessment & Plan Assessment/Plan (1) Swelling of joint of left wrist: PLAN: Concern for septic arthritis versus an inflammatory arthritis v. trauma Given concern for septic joint by ED and history of inflammatory arthritis (in the setting of no reported trauma), I recommended joint tap. I talked the patient about the risks, benefits, and alternatives to aspiration of the left wrist joint. I talked to him about how this could be both diagnostic and therapeutic. He elected to proceed.Hemarthrosis identified (See photo) which was sent to the lab for cell studies and cultures. I am going to recommend admission to medicine for IV antibiotics empirically. He was in agreement. I am suspicious for trauma rather than an infection (patient may not have realized that he bumped his wrist?). Plan for empiric IV antibiotics and admission to medicine Plan for rest and elevation of the left upper extremity (blue arm elevator) I wrapped the hand/wrist with a gentle FEDERICO. Plastic surgery will follow F/u hand xray PLAN: Plan Procedure details (left wrist aspiration): Patient signed consent A timeout was performed with the nursing staff The left wrist was prepped and draped in sterile fashion, then anesthetized with1% lidocaine. A 21-gauge needle was used to aspirate the left wrist joint through the 3/4 interval just distal to Elvis's tubercle with the patient in flexion and ulnar deviation. 2 cc of bloody fluid was removed. Patient tolerated the procedure well and a Band-Aid was applied. Blood fluid sent for cell and crystal studies, as well as cultures. HPI Consult Data Date of Consult: 11/08/24 HPI Narrative HPI Narrative: PACO WHITNEY is a 89 M with past medical history of hypertension COPD, , TIAs, and peripheral neuropathy who presents today for left wrist pain of 6 hours duration. He denies any trauma. He presented to the urgent care earlier todaywho referred him immediately to the emergency department. Today in the emergency department he reports left wrist pain that is sharp and improved with rest and elevation. He has a history of gout in the 1st MTP joint. He has stable vital signs and is afebrile. His white blood cell count is wnl (10). 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 [employer] Medical History PAD (peripheral artery disease) Renal cyst Vertebrobasilar artery syndrome Diverticulosis Kidney stone Lung nodule AAA (abdominal aortic aneurysm) Bilateral carotid artery stenosis Asthma Arthritis Diverticular hemorrhage Lower GI bleed BPH (benign prostatic hyperplasia) GERD (gastroesophageal reflux disease) Peripheral neuropathy History of gastrointestinal bleeding Hx-TIA (transient ischemic attack) Chronic obstructive lung disease HTN (hypertension), benign Home Medications ?Medication ?Instructions ?Recorded ?Last Taken ?Type albuterol sulfate 90 mcg/actuation 2 puff inhalation Q 4H PRN Sob &/Or 07/05/14 04/08/19 23:00 History aerosol inhaler Wheezing 2 puffs ramipril 10 mg capsule 10 mg PO DAILY BP 07/05/14 0 11/08/24 History pantoprazole 40 mg tablet,delayed 40 mg PO DAILY gerd 08/21/14 11/08/24 History release cholecalciferol (vitamin D3) 25 3,000 unit PO BID Supp lement 11/23/14 11/08/24 History mcg (1,000 unit) tablet tamsulosin 0.4 mg capsule 0.4 mg PO QHS Prostate 11/2311/07/24 History budesonide-formoterol HFA 160 2 puff inhalation BID Br eathing 06/28/18 04/08/19 08:00 History mcg-4.5 mcg/actuation aerosol 1 puff inhaler fenofibrate 160 mg tablet 160 mg PO DAILY cholesterol 04/10/19 11/08/24 History albuterol sulfate 2.5 mg/3 mL 2.5 mg continuous nebuli zation Q4H 11/08/24 Unknown History (0.083 %) solution for nebulization PRN wheezing benzonatate 100 mg capsule 200 mg PO TID PRN cough 11/07/24 History gabapentin 600 mg tablet 600 mg PO TID 11/08/2411/08 History latanoprost 0.005 % eye drops 1 drp ophthalmic (eye) D AILY 11/08/24 11/08/24 History loperamide 2 mg capsule 2 mg PO Q2H PRN Diarrhea Unknown History Allergy/AdvReac Type Severity Reaction Status Date / Time cerivastatin sodium (From Allergy Severe Other Verified 11/08/24 18:02 Baycol) gemfibrozil (From Lopid) AdvReac Other Verified 11/08/24 18:02 meperidine (From Demerol) AdvReac Other Verified 11/08/24 18:02 Surgical History Total knee replacement status History of colonoscopy (~03/2019) History of esophagogastroduodenoscopy (EGD) (~03/2019) History of back surgery History of detached retina repair Status post vasectomy History of cholecystectomy History of left knee replacement History of back surgery Social History Smoking Status: Never smoker Physical Exam Narrative Left upper Extremity Inspection: Arthritic hands. Redness and swelling of the left wrist. Some swelling on the dorsal/radial side of the thenar eminence consistent with hematoma (it is not warm or indurated as an abscesswould be). Palpation: Pain with axial loading of the left wrist. Motor: Able to bend and extend all MP, PIP, and DIP joints. 5 out of 5 lead electrician strength. Sensory: Intact to light touch on the radial and ulnar borders. Vascular: Finger tips are warm and well perfused with <2 second capillary refill. Const alert and oriented x3 Lab / Micro Data 11/08/24 18:28 11/08/24 18:28 Charges/Coding Multi Select Codes Visit Charges Office Visit/Consults: 45709 OV L5 New 60min (This visit took greater than 60 minutes (history, physical exam, review of imaging). Procedure performed as well) 11/08/241940 Cosigner Signature (if applicable): CC: Dr. Clarice Murillo MD~ Signed [facility]04-24-2025 NoteHNO ID: [id number] Author: VASYL WELSH MD Service: ? Author Type: Physician Type: Progress Notes Filed: 11/08/2024 18:31 Note Text: [facility] Subjective Paco Whitney is a 89 year old male. Patient presents with: Musculoskeletal Problem: L hand pain, swelling redness, warmth, itchy, x 1 day Patient with history of severe degenerative joint disease but without history of gout presents with significant increase in redness, pain, and swelling in his left wrist. He recalls no injury. It is painful to move the joint. He feels warm. He was treated for URI with asthma exacerbation with prednisone 5 days ago. Musculoskeletal Problem Review of Systems Objective BP 118/68 Pulse 79 Temp 37.5 ?C (99.5 ?F) Resp 22 Wt 90 kg (198 lb 6.6 oz) SpO2 95% BMI 28.47 kg/m? Physical Exam Constitutional: Appearance: He is not ill-appearing. Musculoskeletal: Hands: Comments: Chronic degenerative joint changes of the hands and wrists. Significant edema and erythema of the medial left wrist. Pain with range of motion of the wrist. No pain with range of motion of the thumb or fingers. Swelling is tender to palpation. Neurological: Mental Status: He is alert. Latest Ref Rng 07/24/2024 eGFR >=60 mL/min/1.73m? 73 {ASSESSMENT/PLAN: 1. Swelling of left wrist - ICD9: 719.03, ICD10: M25.432 Differential includes occult injury, reactive tenosynovitis, occult insect envenomation, new onset gout, or septic joint. Patient will proceed to the emergency room where stat lab is available. He will take himself to the [facility]. Vasyl Welsh MD History and Record Review External record(s) reviewed: prior outpatient record. Findings from review of outpatient records: No history of gout or uric acid level Differential Diagnoses - Occult injury - Septic joint is more likely for the following reason(s): Borderline temperature elevation; immune suppression with current steroid - Gout is less likely for the following reason(s): No prior history of hyperuricemia or gout. Normal renal function. Additional Tests or Interventions The following testing was considered but ultimately not selected after discussion with patient/family: Wrist x-ray not performed since he will be seeking further care outside the [facility] hospital system. Disposition The patient was other (comment) (Self transport to ER). [facility] Instructions* Patient Instructions* Jyothi Mosley APRN.CNP - 11/03/2024 8:58 AM EDT Use your rescue albuterol (inhaler or nebulizer) every 4 hours as directed. Begin taking Mucinex with your current treatment for your cough. Start the prednisone you were given; take it as prescribed for 5 days. Follow the written instructions provided for your nebulizer medications once you get the new supplies. A rapid COVID test was completed in the office today. Use nebulizer or inhaler every 4 hours as needed. documented in this [facility]City [facility]04-[facility]25 NoteHNO ID: [id number] Author: JYOTHI MOSLEY APRN.CNP Service: ? Author Type: Nurse Practitioner Type: Progress Notes Filed: 11/03/2024 09:08 Note Text: [facility] Subjective Paco Whitney is a 89 year old male. - Worsening cough and rhinorrhea x4 days. - Reports tightness in the chest. - feels like he can't get a good breath in, no chest pain - Usually does not produce sputum, but currently expectorating greenish material. - Denies fever >100.4?F. - Using Symbicort inhaler; refilled yesterday. - Has not used albuterol nebulizer recently; reports doing well without it. - Using albuterol inhaler. - Has Mucinex but has not used it. - Denies diabetes mellitus. Positive h/o of COPD, Asthma Patient presents with: Cough: Cough, congestion and ST x 4 days The history is provided by the patient. No language assistant was used. Review of Systems Constitutional: Negative for fatigue and fever. HENT: Positive for congestion and rhinorrhea. Negative for ear pain, sinus pressure, sinus pain and sore throat. Eyes: Negative for discharge. Respiratory: Positive for cough, shortness of breath and wheezing. Gastrointestinal: Negative for abdominal pain, diarrhea, nausea and vomiting. Musculoskeletal: Negative for arthralgias and myalgias. Neurological: Negative for headaches. Constitutional: (-) fever Ears/Nose/Mouth/Throat: (+) sneezing, (+) congestion Respiratory: (+) cough, (+) phlegm Objective BP 132/72 Pulse 68 Temp 36.6 ?C (97.8 ?F) (Tympanic) Resp 16 Wt 91.1 kg (200 lb 13.4 oz) SpO2 95% BMI 28.82 kg/m? Physical Exam Vitals and nursing note reviewed. Constitutional: General: He is not in acute distress. Appearance: He is not diaphoretic. HENT: Head: Normocephalic and atraumatic. Right Ear: Tympanic membrane, ear canal and external ear normal. No middle ear effusion. Tympanic membrane is not injected, erythematous, retracted or bulging. Left Ear: Tympanic membrane, ear canal and external ear normal. No middle ear effusion. Tympanic membrane is not injected, erythematous, retracted or bulging. Nose: Nose normal. Right Sinus: No maxillary sinus tenderness or frontal sinus tenderness. Left Sinus: No maxillary sinus tenderness or frontal sinus tenderness. Mouth/Throat: Pharynx: Uvula midline. Eyes: Conjunctiva/sclera: Conjunctivae normal. Pupils: Pupils are equal, round, and reactive to light. Cardiovascular: Rate and Rhythm: Normal rate and regular rhythm. Heart sounds: Normal heart sounds. Pulmonary: Effort: Pulmonary effort is normal. No respiratory distress. Breath sounds: Normal breath sounds. Decreased air movement present. No wheezing or rales. Comments: A rattling moist cough was noted during this encounter. Talking in full sentences. Handling secretions without drooling. Lips and nailbeds are pink without cyanosis. Musculoskeletal: Cervical back: Normal range of motion and neck supple. Lymphadenopathy: Head: Right side of head: No submental, submandibular, tonsillar, preauricular or posterior auricular adenopathy. Left side of head: No submental, submandibular, tonsillar, preauricular or posterior auricular adenopathy. Skin: General: Skin is dry. Neurological: Mental Status: He is alert and oriented to person, place, and time. History and Record Review External record(s) reviewed: prior outpatient record. Findings from review of outpatient records: medications, kidney funtion, GFR ASSESSMENT/PLAN: 1. URI with cough and congestion - ICD9: 465.9, ICD10: J06.9 (primary diagnosis) - Onset 3-4 days ago, progressively worsening; no fever >100.4?F reported. - Examination reveals nasal congestion and productive cough with greenish sputum; lung auscultation reveals no significant abnormalities. - Suspected viral etiology exacerbating underlying COPD and asthma. - Ordered rapid COVID-19 test to be performed in the office. - Prescribed prednisone for 5 days to reduce inflammation. - Advised use of albuterol inhaler every 4 hours and provided new albuterol nebulizer solution. - Recommended initiation of Mucinex to aid in mucus clearance. - COVID-19 MOLECULAR (POC) 2. COPD with acute exacerbation (HCC) - ICD9: 491.21, ICD10: J44.1 3. Asthma with COPD with exacerbation (HCC) - ICD9: 493.22, ICD10: J44.1 Albuteral inhaler or nebulizer prn Follow up with charting clerk as needed Diagnosis and treatment plan were discussed and questions were answered to the patient's satisfaction. Pt acknowledged understanding of concepts and follow up plan. Specific signs and symptoms that would indicate the need for higher level of care were discussed in detail warranting prompt ER evaluation. Jyothi Mosley APRN.[facility]04-19-2025 History of Present illness Narrative* Jyothi Mosley APRN.[facility] - 11/03/2024 8:30 AM EDT [facility] Subjective Paco Whitney is a 89 year old male. - Worsening cough and rhinorrhea x4 days. - Reports tightness in the chest. - feels like he can't get a good breath in, no chest pain - Usually does not produce sputum, but currently expectorating greenish material. - Denies fever >100.4 F. - Using Symbicort inhaler; refilled yesterday. - Has not used albuterol nebulizer recently; reports doing well without it. - Using albuterol inhaler. - Has Mucinex but has not used it. - Denies diabetes mellitus. Positive h/o of COPD, Asthma Patient presents with: Cough: Cough, congestion and ST x 4 days The history is provided by the patient. No language assistant was used. Review of Systems Constitutional: Negative for fatigue and fever. HENT: Positive for congestion and rhinorrhea. Negative for ear pain, sinus pressure, sinus pain andsore throat. Eyes: Negative for discharge. Respiratory: Positive for cough, shortness of breath and wheezing. Gastrointestinal: Negative for abdominal pain, diarrhea, nausea and vomiting. Musculoskeletal: Negative for arthralgias and myalgias. Neurological: Negative for headaches. Constitutional: (-) fever Ears/Nose/Mouth/Throat: (+) sneezing, (+) congestion Respiratory: (+) cough, (+) phlegm Objective BP 132/72 Pulse 68 Temp 36.6 C (97.8 F) (Tympanic) Resp 16 Wt 91.1 kg (200 lb 13.4 oz) SpO2 95% BMI 28.82 kg/m Physical Exam Vitals and nursing note reviewed. Constitutional: General: He is not in acute distress. Appearance: He is not diaphoretic. HENT: Head: Normocephalic and atraumatic. Right Ear: Tympanic membrane, ear canal and external ear normal. No middle ear effusion. Tympanic membrane is not injected, erythematous, retracted or bulging. Left Ear: Tympanic membrane, ear canal and external ear normal. No middle ear effusion. Tympanic membrane is not injected, erythematous, retracted or bulging. Nose: Nose normal. Right Sinus: No maxillary sinus tenderness or frontal sinus tenderness. Left Sinus: No maxillary sinus tenderness or frontal sinus tenderness. Mouth/Throat: Pharynx: Uvula midline. Eyes: Conjunctiva/sclera: Conjunctivae normal. Pupils: Pupils are equal, round, and reactive to light. Cardiovascular: Rate and Rhythm: Normal rate and regular rhythm. Heart sounds: Normal heart sounds. Pulmonary: Effort: Pulmonary effort is normal. No respiratory distress. Breath sounds: Normal breath sounds. Decreased air movement present. No wheezing or rales. Comments: A rattling moist cough was noted during this encounter. Talking in full sentences. Handling secretions without drooling. Lips and nailbeds are pink without cyanosis. Musculoskeletal: Cervical back: Normal range of motion and neck supple. Lymphadenopathy: Head: Right side of head: No submental, submandibular, tonsillar, preauricular or posterior auricular adenopathy. Left side of head: No submental, submandibular, tonsillar, preauricular or posterior auricular adenopathy. Skin: General: Skin is dry. Neurological: Mental Status: He is alert and oriented to person, place, and time. History and Record Review External record(s) reviewed: prior outpatient record. Findings from review of outpatient records: medications, kidney funtion, GFR ASSESSMENT/PLAN: 1. URI with cough and congestion - ICD9: 465.9, ICD10: J06.9 (primary diagnosis) - Onset 3-4 days ago, progressively worsening; no fever >100.4 F reported. - Examination reveals nasal congestion and productive cough with greenish sputum; lung auscultationreveals no significant abnormalities. - Suspected viral etiology exacerbating underlying COPD and asthma. - Ordered rapid COVID-19 test to be performed in the office. - Prescribed prednisone for 5 days to reduce inflammation. - Advised use of albuterol inhaler every 4 hours and provided new albuterol nebulizer solution. - Recommended initiation of Mucinex to aid in mucus clearance. - COVID-19 MOLECULAR (POC) 2. COPD with acute exacerbation (HCC) - ICD9: 491.21, ICD10: J44.1 3. Asthma with COPD with exacerbation (HCC) - ICD9: 493.22, ICD10: J44.1 Albuteral inhaler or nebulizer prn Follow up with charting clerk as needed Diagnosis and treatment plan were discussed and questions were answered to the patient's satisfaction. Pt acknowledged understanding of concepts and follow up plan. Specific signs and symptoms that would indicate the need for higher level of care were discussed indetail warranting prompt ER evaluation. Jyothi Mosley APRN.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 documented in this encounterCity Hospital04-17-2025 Telephone encounter Note * Telephone Encounter - Mary Wagner MA - 11/01/2024 9:35 AM EDT Prescription Refill Information The patient has been identified by name and date of : Yes Caregiver verified no other encounters exist for this prescription request: Yes Caregiver confirmed with patient/requestor that no other refills are due, in the near future, with this provider at this time: Yes The last office visit in the department: 09/24/2024 Does the patient have a future office visit with this provider/department: Yes Patient states his current inhaler is . I confirmed [facility] in [place] as pharmacy. He would like a call once it has been sent in so he can go picker packer. [phone]. Requested Prescriptions Pending Prescriptions Disp Refills SYMBICORT 160-4.5 mcg/actuation inhaler 11 g 0 Sig: Inhale 2 puffs as instructed two times a day. Mary Wagner MA November 01, 2024 9:36 AM [facility]04-[facility] Miscellaneous Notes* Telephone Encounter - Mary Wagner MA - 11/01/2024 9:35 AM EDT Prescription Refill Information The patient has been identified by name and date of : Yes Caregiver verified no other encounters exist for this prescription request: Yes Caregiver confirmed with patient/requestor that no other refills are due, in the near future, with this provider at this time: Yes The last office visit in the department: 09/24/2024 Does the patient have a future office visit with this provider/department: Yes Patient states his current inhaler is . I confirmed [facility] in [place] as pharmacy. He would like a call once it has been sent in so he can go picker packer. [phone]. Requested Prescriptions Pending Prescriptions Disp Refills SYMBICORT 160-4.5 mcg/actuation inhaler 11 g 0 Sig: Inhale 2 puffs as instructed two times a day. Mary Wagner MA November 01, 2024 9:36 AM documented in this encounterCity Hospital03-10-2025 History of Present illness Narrative* Francia Luna MD - 09/24/2024 10:00 AM EDT Images from the original note were not included. . Respiratory [place] Note Patient name: Paco Whitney PCP: Clarice Murillo MD CC: COPD HPI: Paco Whitney 89 year old male former 60 pack year smoker, quitting in 1990 with PMH significant ofr chronic bronchitis GERD, HTN, AAA s/p repair, pulmonary nodules, ILD. History or RLL 3 cm lung mass s/p biopsy in 2014 negative for malignancy. Chest imaging consistent with rounded atelectasis. Current inhaled therapy with Symbicort and as needed albuterol. Overall doing well, a few asthma attacks. Seems to be triggered by certain smells/odors. Rare use of albuterol. He has not been ill with any upper respiratory infection nor required hospitalization. DATA: Imaging / Diagnostic Studies: ABD CT 02/2023: Chest CT 2018: PAST MEDICAL HISTORY Diagnosis Date AAA (abdominal aortic aneurysm) without rupture (HCC) Bronchitis, chronic (HCC) Diverticulitis 12/16/2014 Diverticulosis of colon with hemorrhage Essential hypertension, benign Focal atelectasis Rounded atelectasis GERD (gastroesophageal reflux disease) History of eye surgery 03/29/2011 Right eye Other and unspecified hyperlipidemia Peripheral neuropathy Rectal bleeding 12/16/2014 Retinal detachment with retinal defect, unspecified RIGHT EYE, WITH LENSE Rhabdomyolysis 07/18/2003 had as a result of Baycol Unspecified asthma(493.90) Unspecified cause of encephalitis, myelitis, 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 Lopid [Gemfibrozil] Other: See Comments Myalgia. pantoprazole DR (PROTONIX) 40 mg tablet Take 1 tablet by mouth daily before breakfast. Take on empty stomach, 1/2 hr before meal. tamsulosin (FLOMAX) 0.4 mg TAKE ONE CAPSULE BY MOUTH ONCE DAILY AT BEDTIME albuterol HFA (VENTOLIN HFA) 90 mcg/actuation inhaler Inhale 2 Puffs as instructed every 4 hours asneeded for wheezing/shortness of breath. gabapentin (NEURONTIN) 600 mg tablet Take 1 tablet by mouth three times a day for 180 days. meclizine (ANTIVERT) 25 mg tab Take 1 tablet by mouth every 6 hours as needed. FOR DIZZINESS Fenofibrate (LOFIBRA) 160 mg tablet Take 1 tablet by mouth once daily. SYMBICORT 160-4.5 mcg/actuation inhaler INHALE 2 PUFFS BY MOUTH TWICE DAILY DIRECTED ramipril (ALTACE) 10 mg capsule Take 1 capsule by mouth once daily. kvqlinee-cmsshqzkj-aqxmszwcsvoqaj (CORTISPORIN) 3.5-10,000-1 mg/mL-unit/mL-% otic suspension Use 4 Drops in the ears four times daily. x 1 week clotrimazole-betamethasone (LOTRISONE) cream Apply 1 application to affected area two times a day. As needed guaiFENesin (MUCINEX) 600 mg 12 hr tablet Take 2 tablets by mouth twice daily. As needed acetaminophen (TYLENOL) 500 mg tablet Take 2 tablets by mouth every 6 hours. cholecalciferol (VITAMIN D3) 1,000 unit tab tablet Cholecalciferol (Vit D3) Active 3000 UNIT TWICE A DAY November 23, 2014 8:06am aspirin 81 mg cap Take 1 capsule by mouth once daily. Social History Tobacco Use Smoking status: Former Current packs/day: 0.00 Average packs/day: 2.0 packs/day for 32.0 years (64.0 ttl pk-yrs) Types: Cigarettes Start date: 1959 Quit date: 10/30/1990 Years since quittin.9 Smokeless tobacco: Never Tobacco comments: Multiple 4-5 year quits during smoking career. Vaping Use Vaping status: Never Used Substance Use Topics Alcohol use: No Drug use: No PMH, Social history, family history and surgical history reviewed and updated in EMR REVIEW OF SYSTEMS: CONSTITUTIONAL: No fevers, chills, nightsweats, unintended weight loss HEENT: Denies nasal congestion/sinus symptoms, allergy problems. CARDIOVASCULAR: No chest pain, dyspnea, palpitations, edema. PULM: See HPI GI: No dysphagia/odynophagia, problematic reflux, constipation, diarrhea, changes in stool habits, hematochezia, melena. NEURO: Neuropathy INTEGUMENTARY: No new skin changes PHYSICAL EXAMINATION: BP 118/73 Pulse 74 Resp 16 Wt 198 lb 12.8 oz (90.2kg) SpO2 96% General Appearance: Elderly male, NAD. Skin: Skin color, texture, turgor normal, no suspicious rashes or lesions. Head: Normocephalic, no masses, lesions, tenderness or abnormalities. Oropharynx: Poor dentition, no thrush. Neck: No masses or adenopathy. Lungs: Not labored, no wheezes or crackles. Heart: RRR, no murmur. Extremities: Mild edema, no clubbing. Assessment/Plan: Mild COPD -Clinically stable. He will continue on Symbicort with as needed albuterol -He will continue abstinence from tobacco Rounded atelectasis -Previous evaluation negative for malignancy -Stable over 10 years Former cigarette smoker -Former smoker with sequelae of mild COPD -Continue abstinence -Does not qualify for lung cancer screening based on age and duration of smoking cessation Francia Luna MD [facility] [place] [facility] NoteHNO ID: [id number] Author: FRANCIA LUNA MD Service: ? Author Type: Physician Type: Progress Notes Filed: 09/24/2024 19:37 Note Text: . [facility] [place] Note Patient name: Paco Whitney PCP: Clarice Murillo MD CC: COPD HPI: Paco Whitney 89 year old male former 60 pack year smoker, quitting in 1990 with PMH significant ofr chronic bronchitis GERD, HTN, AAA s/p repair, pulmonary nodules, ILD. History or RLL 3 cm lung mass s/p biopsy in 2014 negative for malignancy. Chest imaging consistent with rounded atelectasis. Current inhaled therapy with Symbicort and as needed albuterol. Overall doing well, a few asthma attacks. Seems to be triggered by certain smells/odors. Rare use of albuterol. He has not been ill with any upper respiratory infection nor required hospitalization. DATA: Imaging / Diagnostic Studies: ABD CT 02/2023: Chest CT 2018: PAST MEDICAL HISTORY Diagnosis Date AAA (abdominal aortic aneurysm) without rupture (HCC) Bronchitis, chronic (HCC) Diverticulitis 12/16/2014 Diverticulosis of colon with hemorrhage Essential hypertension, benign Focal atelectasis Rounded atelectasis GERD (gastroesophageal reflux disease) History of eye surgery 03/29/2011 Right eye Other and unspecified hyperlipidemia Peripheral neuropathy Rectal bleeding 12/16/2014 Retinal detachment with retinal defect, unspecified RIGHT EYE, WITH LENSE Rhabdomyolysis 07/18/2003 had as a result of Baycol Unspecified asthma(493.90) Unspecified cause of encephalitis, myelitis, 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 Lopid [Gemfibrozil] Other: See Comments Myalgia. pantoprazole DR (PROTONIX) 40 mg tablet Take 1 tablet by mouth daily before breakfast. Take on empty stomach, 1/2 hr before meal. tamsulosin (FLOMAX) 0.4 mg TAKE ONE CAPSULE BY MOUTH ONCE DAILY AT BEDTIME albuterol HFA (VENTOLIN HFA) 90 mcg/actuation inhaler Inhale 2 Puffs as instructed every 4 hours as needed for wheezing/shortness of breath. gabapentin (NEURONTIN) 600 mg tablet Take 1 tablet by mouth three times a day for 180 days. meclizine (ANTIVERT) 25 mg tab Take 1 tablet by mouth every 6 hours as needed. FOR DIZZINESS Fenofibrate (LOFIBRA) 160 mg tablet Take 1 tablet by mouth once daily. SYMBICORT 160-4.5 mcg/actuation inhaler INHALE 2 PUFFS BY MOUTH TWICE DAILY DIRECTED ramipril (ALTACE) 10 mg capsule Take 1 capsule by mouth once daily. iiietbhu-fsmjxbtne-bmmxgqmadlyzgq (CORTISPORIN) 3.5-10,000-1 mg/mL-unit/mL-% otic suspension Use 4 Drops in the ears four times daily. x 1 week clotrimazole-betamethasone (LOTRISONE) cream Apply 1 application to affected area two times a day. As needed guaiFENesin (MUCINEX) 600 mg 12 hr tablet Take 2 tablets by mouth twice daily. As needed acetaminophen (TYLENOL) 500 mg tablet Take 2 tablets by mouth every 6 hours. cholecalciferol (VITAMIN D3) 1,000 unit tab tablet Cholecalciferol (Vit D3) Active 3000 UNIT TWICE A DAY November 23, 2014 8:06am aspirin 81 mg cap Take 1 capsule by mouth once daily. Social History Tobacco Use Smoking status: Former Current packs/day: 0.00 Average packs/day: 2.0 packs/day for 32.0 years (64.0 ttl pk-yrs) Types: Cigarettes Start date: 1957 Quit date: 10/30/1990 Years since quittin.9 Smokeless tobacco: Never Tobacco comments: Multiple 4-5 year quits during smoking career. Vaping Use Vaping status: Never Used Substance Use Topics Alcohol use: No Drug use: No PMH, Social history, family history and surgical history reviewed and updated in EMR REVIEW OF SYSTEMS: CONSTITUTIONAL: No fevers, chills, nightsweats, unintended weight loss HEENT: Denies nasal congestion/sinus symptoms, allergy problems. CARDIOVASCULAR: No chest pain, dyspnea, palpitations, edema. PULM: See HPI GI: No dysphagia/odynophagia, problematic reflux, constipation, diarrhea, changes in stool habits, hematochezia, melena. NEURO: Neuropathy INTEGUMENTARY: No new skin changes PHYSICAL EXAMINATION: BP 118/73 Pulse 74 Resp 16 Wt 198 lb 12.8 oz (90.2kg) SpO2 96% General Appearance: Elderly male, NAD. Skin: Skin color, texture, turgor normal, no suspicious rashes or lesions. Head: Normocephalic, no masses, lesions, tenderness or abnormalities. Oropharynx: Poor dentition, no thrush. Neck: No masses or adenopathy. Lungs: Not labored, no wheezes or crackles. Heart: RRR, no murmur. Extremities: Mild edema, no clubbing. Assessment/Plan: Mild COPD -Clinically stable. He will continue on Symbicort with as needed albuterol -He will continue abstinence f (more content not included)...[facility]02-21-2025 Telephone encounter Note* Telephone Encounter - Monet Dahl RN - 09/07/2024 10:16 AM EST The patient has been identified by name and date of : Yes Caregiver verified no other encounters exist for this prescription request: Yes Caregiver confirmed with patient/requestor that no other refills are due, in the near future, with this provider at this time: Yes The last office visit in the department: 08/01/2024 Does the patient have a future office visit with this provider/department: Yes 02/05/2025 Requested Prescriptions Pending Prescriptions Disp Refills pantoprazole DR (PROTONIX) 40 mg tablet 90 tablet 3 Sig: Take 1 tablet by mouth daily before breakfast. Take on empty stomach, 1/2 hr before meal. tamsulosin (FLOMAX) 0.4 mg 90 capsule 3 Sig: TAKE ONE CAPSULE BY MOUTH ONCE DAILY AT BEDTIME Monet Dahl RN [facility]02-21-[facility] Miscellaneous Notes* Telephone Encounter - Monet Dahl RN - 09/07/2024 10:16 AM EST The patient has been identified by name and date of : Yes Caregiver verified no other encounters exist for this prescription request: Yes Caregiver confirmed with patient/requestor that no other refills are due, in the near future, with this provider at this time: Yes The last office visit in the department: 08/01/2024 Does the patient have a future office visit with this provider/department: Yes 02/05/2025 Requested Prescriptions Pending Prescriptions Disp Refills pantoprazole DR (PROTONIX) 40 mg tablet 90 tablet 3 Sig: Take 1 tablet by mouth daily before breakfast. Take on empty stomach, 1/2 hr before meal. tamsulosin (FLOMAX) 0.4 mg 90 capsule 3 Sig: TAKE ONE CAPSULE BY MOUTH ONCE DAILY AT BEDTIME Monet Wurst, RN [facility] Instructions* Patient Instructions* Karla Campuzano APRN.CNP - 08/01/2024 3:03 PM EST Get repeat fasting labs completed in 6 months Continue to take all medication as prescribed Recommend follow up with Orthopedics to discuss shoulder pain Continue to eat a well balanced diet and stay active. Follow up in 6 months or sooner as needed. [facility] History of Present illness Narrative* Karla Campuzano APRN.CNP - 08/01/2024 2:40 PM EST This is a 89 year old male who presents today with: Patient presents with: Follow Up: 4 month follow up HISTORY OF PRESENT ILLNESS: Paco Whitney is a 89 year old male. Patient presents with: Follow Up: 4 month follow up 4 month follow up GERD: Taking Protonix 40 mg daily, symptoms well controlled. HTN: Taking ramipril 10 mg daily. Not currently checking blood pressure at home. Has had ongoing dizziness in the past, uses meclizine as needed. Stress test was completed in November 2022. AAA: Following with vascular medicine, Dr. Nolen. Had follow up with Dr. Sultana (surgeon), had an US completed. Has stent in place. Us showed patent graft. Monitoring. Lipid: Watching diet, difficulty exercising due to pain and neuropathy. Taking Lofibra 160 mg daily. Trigs elevated on recent labs. Chronic neuropathy: Using cane for ambulation. Taking gabapentin 600 mg 3 times daily and Tylenol as needed. Gabapentin was increased at last office visit which has been helpful. 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 Taking aspirin 81 mg daily. Will apply diabetic footcream to feet as needed for pain. COPD: Taking Symbicort twice daily, albuterol and nebulizer as needed. Follows with pulmonology every 6 months. Chronic shoulder pain: Following with orthopedics, Dr. Ashton . Has had injections in the past. Refers that bilateral shoulder pain seems to be getting worse. Taking Tylenol 650 mg daily prn. Dizziness: Using Meclizine 25 mg as needed which has been helpful. 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 Romeo RPR RETINAL DTCHMNT DRG SUBRETINAL FLUID PC 2003 Laser repair retinal detach, right eye TONSILLECTOMY PRIMARY/SECONDARY <AGE 14 Tonsillectomy VASECTOMY UNI/BI SPX W/POSTOP SEMEN EXAMS 1964 ALLERGIES Demerol [Meperidine (Pf)], Baycol, Contrast Dye [Iodine], and Lopid [Gemfibrozil] MEDICATIONS Current Outpatient Medications Medication Sig Fenofibrate (LOFIBRA) 160 mg tablet Take 1 tablet by mouth once daily. gabapentin (NEURONTIN) 600 mg tablet Take 1 tablet by mouth three times a day for 180 days. SYMBICORT 160-4.5 mcg/actuation inhaler INHALE 2 PUFFS BY MOUTH TWICE DAILY DIRECTED ramipril (ALTACE) 10 mg capsule Take 1 capsule by mouth once daily. tamsulosin (FLOMAX) 0.4 mg TAKE ONE CAPSULE BY MOUTH ONCE DAILY AT BEDTIME pantoprazole DR (PROTONIX) 40 mg tablet Take 1 tablet by mouth daily before breakfast. Take on empty stomach, 1/2 hr before meal. uftpgqvi-eqsctranj-wwnqqcyzdstmpn (CORTISPORIN) 3.5-10,000-1 mg/mL-unit/mL-% otic suspension Use 4 Drops in the ears four times daily. x 1 week clotrimazole-betamethasone (LOTRISONE) cream Apply 1 application to affected area two times a day. As needed meclizine (ANTIVERT) 25 mg tab Take 1 tablet by mouth every 6 hours as needed. FOR DIZZINESS albuterol HFA (VENTOLIN HFA) 90 mcg/actuation inhaler Inhale 2 Puffs as instructed every 4 hours asneeded for wheezing/shortness of breath. guaiFENesin (MUCINEX) 600 mg 12 hr tablet Take 2 tablets by mouth twice daily. As needed acetaminophen (TYLENOL) 500 mg tablet Take 2 tablets by mouth every 6 hours. cholecalciferol (VITAMIN D3) 1,000 unit tab tablet Cholecalciferol (Vit D3) Active 3000 UNIT TWICE A DAY November 23, 2014 8:06am aspirin 81 mg cap Take 1 capsule by mouth once daily. No current facility-administered medications for this visit. FAMILY HISTORY Problem Relation Age of Onset Hypertension Mother other (Parkinsons disease) Mother Heart Father Heart Brother Heart surgery Cancer Brother of liver. Diabetes Brother Heart disease Son No Family History No Family History No COPD, lung cancer. Social History Tobacco Use Smoking status: Former Current packs/day: 0.00 Average packs/day: 2.0 packs/day for 32.0 years (64.0 ttl pk-yrs) Types: Cigarettes Start date: 1957 Quit date: 10/30/1990 Years since quittin.7 Smokeless tobacco: Never Tobacco comments: Multiple 4-5 year quits during smoking career. Vaping Use Vaping status: Never Used Substance Use Topics Alcohol use: No Drug use: No REVIEW OF SYSTEMS GENERAL: No weight loss, malaise or fevers/chills HEENT: Negative for frequent or significant headaches, No changes in hearing or vision. NECK: Negative for lumps, goiter, pain and significant neck swelling RESPIRATORY: Negative for cough, hemoptysis, wheezing, dyspnea or shortness of breath CARDIOVASCULAR: Negative for chest pain, leg swelling, orthopnea, or palpitations GI: No nausea, vomiting, or diarrhea/constipation. No hematochezia/melena. No heartburn or reflux symptoms. : No history of dysuria, frequency or incontinence MUSCULOSKELETAL: Negative for joint pain or swelling. SKIN: Negative for lesions, rash, and itching ENDOCRINE: Negative for cold or heat intolerance, polyuria, polydipsia and goiter NEURO: No history of headaches, syncope, paralysis, seizures or tremors MOOD: Negative for depression, anxiety, or suicidal ideation. EXAM: BP 104/62 Pulse 71 Resp 16 Wt 89.7 kg (197 lb 12 oz) SpO2 97% BMI 28.37 kg/m PHYSICAL EXAM: General Appearance: Well appearing, alert, in no acute distress, well-hydrated, well nourished. Skin: Skin color, texture, turgor normal, no suspicious rashes or lesions. Head: Normocephalic, no masses, lesions, tenderness or abnormalities. Eyes: Anicteric sclera. Extraocular movements are intact. . Lungs: Lungs clear to auscultation. No wheezing, rhonchi, rales. Heart: RRR without murmur, gallop, or rubs. No ectopy. Extremities: No deformities, edema, skin discoloration, clubbing or cyanosis. Good capillary refill. Peripheral Pulses: Normal, Capillary refill <2secs, strong peripheral pulses, Pulses palpable. Neurologic: Gait normal. Sensation grossly intact. ASSESSMENT/PLAN: 1. Essential hypertension, benign - ICD9: 401.1, ICD10: I10 (primary diagnosis) - Controlled - Continue current medications - Recommend home blood pressure monitoring, to bring results to next visit - Encouraged sodium restriction, DASH or Mediterranean diet - Recommend regular aerobic exercise 2. Abdominal aortic aneurysm (AAA) without rupture, unspecified part (HCC) - ICD9: 441.4, ICD10: I71.40 - Stable, keep scheduled appointments with specialist. 3. Hyperlipidemia, unspecified hyperlipidemia type - ICD9: 272.4, ICD10: E78.5 - Improving control - Continue current medications - Counseled on healthy diet and regular exercise - Discussed need for and benefit of weight loss. BMI 31.92 kg/(m^2) - COMPREHENSIVE METABOLIC PANEL - LIPID PANEL BASIC 4. GERD without esophagitis - ICD9: 530.81, ICD10: K21.9 - Stable, continue take current medication. 5. COPD with exacerbation (HCC) - ICD9: 491.21, ICD10: J44.1 - Stable, continue take current medication. - Keep scheduled appointments with pulmonology. 6. Neuropathy - ICD9: 355.9, ICD10: G62.9 -Stable, refill provided. - GABAPENTIN 600 MG TABLET 7. Chronic pain of both shoulders - ICD9: 719.41, 338.29, ICD10: M25.511, G89.29, M25.512 - Due to increased pain, recommend follow-up with orthopedics. 8. Mild intermittent asthma without complication - ICD9: 493.90, ICD10: J45.20 - Same plan as #5/ 9. Elevated glucose - ICD9: 790.29, ICD10: R73.09 - Get repeat labs in 6 months. - HEMOGLOBIN A1C 10. Dizziness - ICD9: 780.4, ICD10: R42 - stable, refill provided. - MECLIZINE 25 MG TABLET 11. Screening for depression - ICD9: V79.0, ICD10: Z13.31 - DEPRESSION SCREENING 12. Encounter for screening examination for other mental health and behavioral disorders - ICD9: V79.8, ICD10: Z13.39 - ANXIETY SCREENING Follow-up in 6 months with labs. Discussed treatment plan and patient voices understanding. Patient's questions answered appropriately. Medications and potential side effects were discussed and patient voices understanding. Karla Campuzano APRN.SARAI This note was partially generated using [employer] voice recognition system. Note was reviewed for accuracy. There may be minor misspellings or grammar miscues with [employer] voice recognition. documented in this [facility]City [facility]01-15-2025 NoteHNO ID: [id number] Author: KARLA CAMPUZANO APRN.SARAI Service: ? Author Type: Nurse Practitioner Type: Progress Notes Filed: 08/01/2024 15:33 Note Text: This is a 89 year old male who presents today with: Patient presents with: Follow Up: 4 month follow up HISTORY OF PRESENT ILLNESS: Paco Whitney is a 89 year old male. Patient presents with: Follow Up: 4 month follow up 4 month follow up GERD: Taking Protonix 40 mg daily, symptoms well controlled. HTN: Taking ramipril 10 mg daily. Not currently checking blood pressure at home. Has had ongoing dizziness in the past, uses meclizine as needed. Stress test was completed in November 2022. AAA: Following with vascular medicine, Dr. Nolen. Had follow up with Dr. Sultana (surgeon), had an US completed. Has stent in place. Us showed patent graft. Monitoring. Lipid: Watching diet, difficulty exercising due to pain and neuropathy. Taking Lofibra 160 mg daily. Trigs elevated on recent labs. Chronic neuropathy: Using cane for ambulation. Taking gabapentin 600 mg 3 times daily and Tylenol as needed. Gabapentin was increased at last office visit which has been helpful. 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 Taking aspirin 81 mg daily. Will apply diabetic foot cream to feet as needed for pain. COPD: Taking Symbicort twice daily, albuterol and nebulizer as needed. Follows with pulmonology every 6 months. Chronic shoulder pain: Following with orthopedics, Dr. Ashton . Has had injections in the past. Refers that bilateral shoulder pain seems to be getting worse. Taking Tylenol 650 mg daily prn. Dizziness: Using Meclizine 25 mg as needed which has been helpful. 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 Romeo RPR RETINAL DTCHMNT DRG SUBRETINAL FLUID PC 2003 Laser repair retinal detach, right eye TONSILLECTOMY PRIMARY/SECONDARY Tonsillectomy VASECTOMY UNI/BI SPX W/POSTOP SEMEN EXAMS 1963 ALLERGIES Demerol [Meperidine (Pf)], Baycol, Contrast Dye [Iodine], and Lopid [Gemfibrozil] MEDICATIONS Current Outpatient Medications Medication Sig Fenofibrate (LOFIBRA) 160 mg tablet Take 1 tablet by mouth once daily. gabapentin (NEURONTIN) 600 mg tablet Take 1 tablet by mouth three times a day for 180 days. SYMBICORT 160-4.5 mcg/actuation inhaler INHALE 2 PUFFS BY MOUTH TWICE DAILY DIRECTED ramipril (ALTACE) 10 mg capsule Take 1 capsule by mouth once daily. tamsulosin (FLOMAX) 0.4 mg TAKE ONE CAPSULE BY MOUTH ONCE DAILY AT BEDTIME pantoprazole DR (PROTONIX) 40 mg tablet Take 1 tablet by mouth daily before breakfast. Take on empty stomach, 1/2 hr before meal. fyyqdeqt-jnlsavzxv-udmiqjtdvustiu (CORTISPORIN) 3.5-10,000-1 mg/mL-unit/mL-% otic suspension Use 4 Drops in the ears four times daily. x 1 week clotrimazole-betamethasone (LOTRISONE) cream Apply 1 application to affected area two times a day. As needed meclizine (ANTIVERT) 25 mg tab Take 1 tablet by mouth every 6 hours as needed. FOR DIZZINESS albuterol HFA (VENTOLIN HFA) 90 mcg/actuation inhaler Inhale 2 Puffs as instructed every 4 hours as needed for wheezing/shortness of breath. guaiFENesin (MUCINEX) 600 mg 12 hr tablet Take 2 tablets by mouth twice daily. As needed acetaminophen (TYLENOL) 500 mg tablet Take 2 tablets by mouth every 6 hours. cholecalciferol (VITAMIN D3) 1,000 unit tab tablet Cholecalciferol (Vit D3) Active 3000 UNIT TWICE A DAY November 23, 2014 8:06am aspirin 81 mg cap Take 1 capsule by mouth once daily. No current facility-administered medications for this visit. FAMILY HISTORY Problem Relation Age of Onset Hypertension Mother other (Parkinsons disease) Mother Heart Father Heart Brother Heart surgery Cancer Brother of jerrell (more content not included)...[facility]12-05-2024 NoteHNO ID: [id number] Author: ADRIEL VIDES RN Service: ? Author Type: Registered Nurse Type: Progress Notes Filed: 06/21/2024 15:08 Note Text: [facility] Telephonic Outreach Provider Action/FYI Contacted for: Routine Telephonic Outreach Contact made with patient: Yes Patient identified by name and date of . Discussed care with patient Are you experiencing any new or worsening symptoms you need to talk about today? No Based on children's attendant, the following disposition is advised: No symptoms or symptoms present, not severe. Routed to: No Action Needed GEOFF Education Provided this Outreach: No No concerns Cares for - She has appointment tomorrow to check B/P Adriel Vides RN June 21, 2024 3:07 [facility]12-05-2024 History of Present illness Narrative* Adriel Vides RN - 06/21/2024 3:02 PM EST [facility] Telephonic Outreach Provider Action/FYI Contacted for: Routine Telephonic Outreach Contact made with patient: Yes Patient identified by name and date of . Discussed care with patient Are you experiencing any new or worsening symptoms you need to talk about today? No Based on children's attendant, the following disposition is advised: No symptoms or symptoms present, not severe. Routed to: No Action Needed GEOFF Education Provided this Outreach: No No concerns Cares for - She has appointment tomorrow to check B/P Adriel Vides RN June 21, 2024 3:07 PM [facility] NotePatient Outreach ([facility]) PACO WHITNEY ([id number]) 1935 Date Time Provider Department 06/21/24 ADRIEL VIDES [facility] During your visit today, we recorded the following information about you: Adriel Vides RN 06/21/2024 3:08 PM Signed [facility] Telephonic Outreach Provider Action/FYI Contacted for: Routine Telephonic Outreach Contact made with patient: Yes Patient identified by name and date of . Discussed care with patient Are you experiencing any new or worsening symptoms you need to talk about today? No Based on children's attendant, the following disposition is advised: No symptoms or symptoms present, not severe. Routed to: No Action Needed GEOFF Education Provided this Outreach: No No concerns Cares for - She has appointment tomorrow to check B/P Adriel Vides RN June 21, 2024 3:07 PM Allergies As of Date: 06/21/2024 Noted Allergy Reaction DEMEROL (MEPERIDINE (PF)) 11/18/2016 1 - Mental Status Change Comments: Gave too high of dose BAYCOL 02/01/2023 14 - Other: See Comments Comments: Rhabdoymyolysis CONTRAST DYE (IODINE) 06/28/2019 5 - Intolerance Comments: pt needs to be oral hydrated after injection,..patient STATES HE IS NOT ALLERGIC TO IV DYE.. LOPID (GEMFIBROZIL) 07/14/2006 14 - Other: See Comments Comments: Myalgia. Date Reviewed: 01/16/2024 Reviewed by: Jhoan Siegel LPN - Fully Assessed Reason for Visit: community monitoring outreach [Other] Cmt: [facility]-Telephonic outreach Prescriptions as of 07/17/2024 - Fenofibrate (LOFIBRA) 160 mg tablet Take 1 tablet by mouth once daily. - gabapentin (NEURONTIN) 600 mg tablet Take 1 tablet by mouth three times a day for 180 days. - SYMBICORT 160-4.5 mcg/actuation inhaler INHALE 2 PUFFS BY MOUTH TWICE DAILY DIRECTED - ramipril (ALTACE) 10 mg capsule Take 1 capsule by mouth once daily. - tamsulosin (FLOMAX) 0.4 mg TAKE ONE CAPSULE BY MOUTH ONCE DAILY AT BEDTIME - pantoprazole DR (PROTONIX) 40 mg tablet Take 1 tablet by mouth daily before breakfast. Take on empty stomach, 1/2 hr before meal. - tmuqnrhx-fjtgogsde-mnpvcfeujxwodx (CORTISPORIN) 3.5-10,000-1 mg/mL-unit/mL-% otic suspension Use 4 Drops in the ears four times daily. x 1 week - clotrimazole-betamethasone (LOTRISONE) cream Apply 1 application to affected area two times a day. As needed - meclizine (ANTIVERT) 25 mg tab Take 1 tablet by mouth every 6 hours as needed. FOR DIZZINESS - albuterol HFA (VENTOLIN HFA) 90 mcg/actuation inhaler Inhale 2 Puffs as instructed every 4 hours as needed for wheezing/shortness of breath. - guaiFENesin (MUCINEX) 600 mg 12 hr tablet Take 2 tablets by mouth twice daily. As needed - acetaminophen (TYLENOL) 500 mg tablet Take 2 tablets by mouth every 6 hours. - cholecalciferol (VITAMIN D3) 1,000 unit tab tablet Cholecalciferol (Vit D3) Active 3000 UNIT TWICE A DAY November 23, 2014 8:06am - aspirin 81 mg cap Take 1 capsule by mouth once daily. 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]01/01/2014 AAA (abdominal aortic aneurysm) ([facility]) [I71.40] 07/09/2014 11/25/2020 Enlarged prostate [N40.0] 10/29/2014 Lower urinary tract symptoms (LUTS) [R39.9] 10/29/2014 History of kidney stones [Z87.442] 10/29/2014 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 Author Type: Registered Nurse Type: Progress Notes Filed: 05/24/2024 14:33 Note Text: [facility] Telephonic Outreach Provider Action/FYI Contacted for: Routine Telephonic Outreach Contact made with patient: Yes Patient identified by name and date of . Discussed care with patient Are you experiencing any new or worsening symptoms you need to talk about today? No Based on children's attendant, the following disposition is advised: No symptoms or symptoms present, not severe. Routed to: No Action Needed GEOFF Education Provided this Outreach: No Doing well Chronic conditions at baseline Nice gentlemen No concerns today Adriel Vides RN May 24, 2024 2:32 [facility]11-07-2024 History of Present illness Narrative* Adriel Vides RN - 05/24/2024 2:21 PM EST [facility] Telephonic Outreach Provider Action/FYI Contacted for: Routine Telephonic Outreach Contact made with patient: Yes Patient identified by name and date of . Discussed care with patient Are you experiencing any new or worsening symptoms you need to talk about today? No Based on children's attendant, the following disposition is advised: No symptoms or symptoms present, not severe. Routed to: No Action Needed GEOFF Education Provided this Outreach: No Doing well Chronic conditions at baseline Sabiha cristina No concerns today Adriel Vides RN May 24, 2024 2:32 PM documented in this encounterCity [facility]11-07-[facility]24 NotePatient Outreach ([facility]) PACO WHITNEY ([id number]) 1935 M Date Time Provider Department 05/24/24 [facility] During your visit today, we recorded the following information about you: Adriel Vides RN 05/24/2024 2:33 PM Signed CD Telephonic Outreach Provider Action/FYI Contacted for: Routine Telephonic Outreach Contact made with patient: Yes Patient identified by name and date of . Discussed care with patient Are you experiencing any new or worsening symptoms you need to talk about today? No Based on children's attendant, the following disposition is advised: No symptoms or symptoms present, not severe. Routed to: No Action Needed GEOFF Education Provided this Outreach: No Doing well Chronic conditions at baseline Sabiha evans No concerns today Adriel Vides RN May 24, 2024 2:32 PM Allergies As of Date: 05/24/2024 Noted Allergy Reaction DEMEROL (MEPERIDINE (PF)) 11/18/2016 1 - Mental Status Change Comments: Gave too high of dose BAYCOL 02/01/2023 14 - Other: See Comments Comments: Rhabdoymyolysis CONTRAST DYE (IODINE) 06/28/2019 5 - Intolerance Comments: pt needs to be oral hydrated after injection,..patient STATES HE IS NOT ALLERGIC TO IV DYE.. LOPID (GEMFIBROZIL) 07/14/2006 14 - Other: See Comments Comments: Myalgia. Date Reviewed: 01/16/2024 Reviewed by: Jhoan Siegel LPN - Fully Assessed Reason for Visit: community monitoring outreach [Other] Cmt: [facility]-Telephonic outreach Prescriptions as of 05/24/2024 - Fenofibrate (LOFIBRA) 160 mg tablet Take 1 tablet by mouth once daily. - gabapentin (NEURONTIN) 600 mg tablet Take 1 tablet by mouth three times a day for 180 days. - SYMBICORT 160-4.5 mcg/actuation inhaler INHALE 2 PUFFS BY MOUTH TWICE DAILY DIRECTED - ramipril (ALTACE) 10 mg capsule Take 1 capsule by mouth once daily. - tamsulosin (FLOMAX) 0.4 mg TAKE ONE CAPSULE BY MOUTH ONCE DAILY AT BEDTIME - pantoprazole DR (PROTONIX) 40 mg tablet Take 1 tablet by mouth daily before breakfast. Take on empty stomach, 1/2 hr before meal. - zecguysz-gxhsrvlos-oilhxpvvixpgyk (CORTISPORIN) 3.5-10,000-1 mg/mL-unit/mL-% otic suspension Use 4 Drops in the ears four times daily. x 1 week - clotrimazole-betamethasone (LOTRISONE) cream Apply 1 application to affected area two times a day. As needed - meclizine (ANTIVERT) 25 mg tab Take 1 tablet by mouth every 6 hours as needed. FOR DIZZINESS - albuterol HFA (VENTOLIN HFA) 90 mcg/actuation inhaler Inhale 2 Puffs as instructed every 4 hours as needed for wheezing/shortness of breath. - guaiFENesin (MUCINEX) 600 mg 12 hr tablet Take 2 tablets by mouth twice daily. As needed - acetaminophen (TYLENOL) 500 mg tablet Take 2 tablets by mouth every 6 hours. - cholecalciferol (VITAMIN D3) 1,000 unit tab tablet Cholecalciferol (Vit D3) Active 3000 UNIT TWICE A DAY November 23, 2014 8:06am - aspirin 81 mg cap Take 1 capsule by mouth once daily. 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]01/01/2014 AAA (abdominal aortic aneurysm) (HCC) [I71.40] 07/09/2014 11/25/2020 Enlarged prostate [N40.0] 10/29/2014 Lower urinary tract symptoms (LUTS) [R39.9] 10/29/2014 History of kidney stones [Z87.442] 10/29/2014 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0] 02/01/2023 Hypomagnesemia [E83.42] 02/01/2023 Peripheral arterial disease (HCC) [I73.9] 03/08/2023 Elevated HDL [E78.89] 03/08/2023 Encounter Status:Closed by ADRIEL VIDES on 05/24/24[facility] 05-04-2024 Telephone encounter Note* Telephone Encounter - Clarice Murillo MD - 05/04/2024 4:49 PM EDT OK to refill as ordered Clarice Murillo [facility] Miscellaneous Notes* Telephone Encounter - Clarice Murillo MD - 05/04/2024 4:49 PM EDT OK to refill as ordered Clarice Murillo MD * Telephone Encounter - Johanna Uribe - 05/04/2024 3:56 PM EDT Prescription Refill Information The patient has been identified by name and date of : Yes Caregiver verified no other encounters exist for this prescription request: Yes Caregiver confirmed with patient/requestor that no other refills are due, in the near future, with this provider at this time: Yes The last office visit in the department: 03-21-24 Does the patient have a future office visit with this provider/department: Yes Requested Prescriptions Pending Prescriptions Disp Refills Fenofibrate (LOFIBRA) 160 mg tablet 30 tablet 11 Sig: Take 1 tablet by mouth once daily. Johanna Uribe May 04, 2024 3:57 PM documented in [facility] encounterCity [facility] Telephone encounter Note * Telephone Encounter - Johanna Uribe - 05/04/2024 3:56 PM EDT Prescription Refill Information The patient has been identified by name and date of : Yes Caregiver verified no other encounters exist for this prescription request: Yes Caregiver confirmed with patient/requestor that no other refills are due, in the near future, with this provider at this time: Yes The last office visit in the department: 03-21-24 Does the patient have a future office visit with this provider/department: Yes Requested Prescriptions Pending Prescriptions Disp Refills Fenofibrate (LOFIBRA) 160 mg tablet 30 tablet 11 Sig: Take 1 tablet by mouth once daily. Johanna Uribe May 04, 2024 3:57 PM [facility] NoteHNO ID: [id number] Author: ADRIEL VIDES RN Service: ? Author Type: Registered Nurse Type: Progress Notes Filed: 04/26/2024 11:42 Note Text: [facility] Telephonic Outreach Provider Action/FYI Contacted for: Routine Telephonic Outreach Contact made with patient: Yes Patient identified by name and date of . Discussed care with patient Are you experiencing any new or worsening symptoms you need to talk about today? No Based on children's attendant, the following disposition is advised: No symptoms or symptoms present, not severe. Routed to: No Action Needed GEOFF Education Provided this Outreach: No Left knee replaced in 2003 Rt knee bothersome but given spouses dementia and his age does not think it will work for him Ambulates ok with a cane Advised to have discussion with PCP about options-discussed injections. No additional concerns Adriel Vides RN April 26, 2024 11:32 [facility]10-10-2024 History of Present illness Narrative* Adriel Vides RN - 04/26/2024 11:23 AM EDT [facility] Telephonic Outreach Provider Action/FYI Contacted for: Routine Telephonic Outreach Contact made with patient: Yes Patient identified by name and date of . Discussed care with patient Are you experiencing any new or worsening symptoms you need to talk about today? No Based on children's attendant, the following disposition is advised: No symptoms or symptoms present, not severe. Routed to: No Action Needed GEOFF Education Provided this Outreach: No Left knee replaced in 2003 Rt knee bothersome but given spouses dementia and his age does not think it will work for him Ambulates ok with a cane Advised to have discussion with PCP about options-discussed injections. No additional concerns Adriel Vides RN April 26, 2024 11:32 AM documented in this encounterCity [facility]10-10-2024 NotePatient Outreach ([facility]) PACO WHITNEY ([id number]) 1935 M Date Time Provider Department 04/26/24 ADRIEL VIDES [facility] During your visit today, we recorded the following information about you: Adriel Vides, RN 04/26/2024 11:42 AM Signed [facility] Telephonic Outreach Provider Action/FYI Contacted for: Routine Telephonic Outreach Contact made with patient: Yes Patient identified by name and date of . Discussed care with patient Are you experiencing any new or worsening symptoms you need to talk about today? No Based on children's attendant, the following disposition is advised: No symptoms or symptoms present, not severe. Routed to: No Action Needed GEOFF Education Provided this Outreach: No Left knee replaced in 2003 Rt knee bothersome but given spouses dementia and his age does not think it will work for him Ambulates ok with a cane Advised to have discussion with PCP about options-discussed injections. No additional concerns Adriel Vides RN April 26, 2024 11:32 AM Allergies As of Date: 04/26/2024 Noted Allergy Reaction DEMEROL (MEPERIDINE (PF)) 11/18/2016 1 - Mental Status Change Comments: Gave too high of dose BAYCOL 02/01/2023 14 - Other: See Comments Comments: Rhabdoymyolysis CONTRAST DYE (IODINE) 06/28/2019 5 - Intolerance Comments: pt needs to be oral hydrated after injection,..patient STATES HE IS NOT ALLERGIC TO IV DYE.. LOPID (GEMFIBROZIL) 07/14/2006 14 - Other: See Comments Comments: Myalgia. Date Reviewed: 01/16/2024 Reviewed by: Jhoan Siegel LPN - Fully Assessed Reason for Visit: community monitoring outreach [Other] Cmt: [facility]-Telephonic outreach Prescriptions as of 04/26/2024 - gabapentin (NEURONTIN) 600 mg tablet Take 1 tablet by mouth three times a day for 180 days. - SYMBICORT 160-4.5 mcg/actuation inhaler INHALE 2 PUFFS BY MOUTH TWICE DAILY DIRECTED - ramipril (ALTACE) 10 mg capsule Take 1 capsule by mouth once daily. - tamsulosin (FLOMAX) 0.4 mg TAKE ONE CAPSULE BY MOUTH ONCE DAILY AT BEDTIME - pantoprazole DR (PROTONIX) 40 mg tablet Take 1 tablet by mouth daily before breakfast. Take on empty stomach, 1/2 hr before meal. - cxfyxjmh-bjmeykste-abfakhuryntdcc (CORTISPORIN) 3.5-10,000-1 mg/mL-unit/mL-% otic suspension Use 4 Drops in the ears four times daily. x 1 week - clotrimazole-betamethasone (LOTRISONE) cream Apply 1 application to affected area two times a day. As needed - meclizine (ANTIVERT) 25 mg tab Take 1 tablet by mouth every 6 hours as needed. FOR DIZZINESS - Fenofibrate (LOFIBRA) 160 mg tablet Take 1 tablet by mouth once daily. - albuterol HFA (VENTOLIN HFA) 90 mcg/actuation inhaler Inhale 2 Puffs as instructed every 4 hours as needed for wheezing/shortness of breath. - guaiFENesin (MUCINEX) 600 mg 12 hr tablet Take 2 tablets by mouth twice daily. As needed - acetaminophen (TYLENOL) 500 mg tablet Take 2 tablets by mouth every 6 hours. - cholecalciferol (VITAMIN D3) 1,000 unit tab tablet Cholecalciferol (Vit D3) Active 3000 UNIT TWICE A DAY November 23, 2014 8:06am - aspirin 81 mg cap Take 1 capsule by mouth once daily. 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]01/01/2014 AAA (abdominal aortic aneurysm) (HCC) [I71.40] 07/09/2014 11/25/2020 Enlarged prostate [N40.0] 10/29/2014 Lower urinary tract symptoms (LUTS) [R39.9] 10/29/2014 History of kidney stones [Z87.442] 10/29/2014 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0] 02/01/2023 Hypomagnesemia [E83.42] 02/01/2023 Peripheral arterial disease (HCC) [I73.9] 03/08/2023 Elevated HDL [E78.89] 03/08/2023 Encounter Status:Closed by ADRIEL VIDES on 04/26/24[facility] 04-25-2024 History of Present illness Narrative* Adriel Vides RN - 04/25/2024 3:18 PM EDT [facility] Telephonic Outreach Provider Action/FYI Contacted for: Routine Telephonic Outreach Contact made with patient: No, left message. Adriel Vides RN April 25, 2024 3:27 PM documented in this encounterCity Hospital10-09-2024 NoteHNO ID: [id number] Author: ADRIEL VIDES RN Service: ? Author Type: Registered Nurse Type: Progress Notes Filed: 04/25/2024 15:27 Note Text: [facility] Telephonic Outreach Provider Action/FYI Contacted for: Routine Telephonic Outreach Contact made with patient: No, left message. Adriel Vides RN April 25, 2024 3:27 [facility]10-09-2024 NotePatient Outreach ([facility]) DEVONTEPACO ([id number]) 1935 M Date Time Provider Department 04/25/24 ADRILE VIDES [facility] During your visit today, we recorded the following information about you: Adriel Vides RN 04/25/2024 3:27 PM Signed [facility] Telephonic Outreach Provider Action/FYI Contacted for: Routine Telephonic Outreach Contact made with patient: No, left message. Adriel Vides RN April 25, 2024 3:27 PM Allergies As of Date: 04/25/2024 Noted Allergy Reaction DEMEROL (MEPERIDINE (PF)) 11/18/2016 1 - Mental Status Change Comments: Gave too high of dose BAYCOL 02/01/2023 14 - Other: See Comments Comments: Rhabdoymyolysis CONTRAST DYE (IODINE) 06/28/2019 5 - Intolerance Comments: pt needs to be oral hydrated after injection,..patient STATES HE IS NOT ALLERGIC TO IV DYE.. LOPID (GEMFIBROZIL) 07/14/2006 14 - Other: See Comments Comments: Myalgia. Date Reviewed: 01/16/2024 Reviewed by: Jhoan Siegel LPN - Fully Assessed Reason for Visit: community monitoring outreach [Other] Cmt: [facility]-Telephonic outreach Prescriptions as of 04/25/2024 - gabapentin (NEURONTIN) 600 mg tablet Take 1 tablet by mouth three times a day for 180 days. - SYMBICORT 160-4.5 mcg/actuation inhaler INHALE 2 PUFFS BY MOUTH TWICE DAILY DIRECTED - ramipril (ALTACE) 10 mg capsule Take 1 capsule by mouth once daily. - tamsulosin (FLOMAX) 0.4 mg TAKE ONE CAPSULE BY MOUTH ONCE DAILY AT BEDTIME - pantoprazole DR (PROTONIX) 40 mg tablet Take 1 tablet by mouth daily before breakfast. Take on empty stomach, 1/2 hr before meal. - ksvpxyri-kwyqxrkab-fienromruucjii (CORTISPORIN) 3.5-10,000-1 mg/mL-unit/mL-% otic suspension Use 4 Drops in the ears four times daily. x 1 week - clotrimazole-betamethasone (LOTRISONE) cream Apply 1 application to affected area two times a day. As needed - meclizine (ANTIVERT) 25 mg tab Take 1 tablet by mouth every 6 hours as needed. FOR DIZZINESS - Fenofibrate (LOFIBRA) 160 mg tablet Take 1 tablet by mouth once daily. - albuterol HFA (VENTOLIN HFA) 90 mcg/actuation inhaler Inhale 2 Puffs as instructed every 4 hours as needed for wheezing/shortness of breath. - guaiFENesin (MUCINEX) 600 mg 12 hr tablet Take 2 tablets by mouth twice daily. As needed - acetaminophen (TYLENOL) 500 mg tablet Take 2 tablets by mouth every 6 hours. - cholecalciferol (VITAMIN D3) 1,000 unit tab tablet Cholecalciferol (Vit D3) Active 3000 UNIT TWICE A DAY November 23, 2014 8:06am - aspirin 81 mg cap Take 1 capsule by mouth once daily. 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]01/01/2014 AAA (abdominal aortic aneurysm) (HCC) [I71.40] 07/09/2014 11/25/2020 Enlarged prostate [N40.0] 10/29/2014 Lower urinary tract symptoms (LUTS) [R39.9] 10/29/2014 History of kidney stones [Z87.442] 10/29/2014 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 Author Type: Registered Nurse Type: Progress Notes Filed: 03/26/2024 12:33 Note Text: [facility] Telephonic Outreach Provider Action/FYI Contacted for: Routine Telephonic Outreach Contact made with patient: Yes Patient identified by name and date of . Discussed care with patient Are you experiencing any new or worsening symptoms you need to talk about today? No Based on children's attendant, the following disposition is advised: No symptoms or symptoms present, not severe. Routed to: No Action Needed GEOFF Education Provided this Outreach: No Overall doing well. Very nice gentlemen States he received the flu vaccine- had some mild symptoms for a few days-resolved Gabapentin is helping with neuropathy- increased 600 mg tid Uses cane walker if needed for longer distances No falls Adriel Vides RN March 26, 2024 12:30 [facility]09-09-2024 History of Present illness Narrative* Adriel Vides RN - 03/26/2024 12:21 PM EDT [facility] Telephonic Outreach Provider Action/FYI Contacted for: Routine Telephonic Outreach Contact made with patient: Yes Patient identified by name and date of . Discussed care with patient Are you experiencing any new or worsening symptoms you need to talk about today? No Based on children's attendant, the following disposition is advised: No symptoms or symptoms present, not severe. Routed to: No Action Needed GEOFF Education Provided this Outreach: No Overall doing well. Very nice gentlemen States he received the flu vaccine- had some mild symptoms for a few days-resolved Gabapentin is helping with neuropathy- increased 600 mg tid Uses cane walker if needed for longer distances No falls Adriel Vides RN March 26, 2024 12:30 PM documented in [facility]City [facility] NotePatient Outreach ([facility]) PACO WHITNEY ([id number]) 1935 M Date Time Provider Department 03/26/24 [facility] your visit today, we recorded the following information about you: Adriel Vides RN 03/26/2024 12:33 PM Signed [facility] Telephonic Outreach Provider Alaina/FYI Contacted for: Routine Telephonic Outreach Contact made with patient: Yes Patient identified by name and date of . Discussed care with patient Are you experiencing any new or worsening symptoms you need to talk about today? No Based on children's attendant, the following disposition is advised: No symptoms or symptoms present, not severe. Routed to: No Action Needed GEOFF Education Provided this Outreach: No Overall doing well. Very nice gentlemen States he received the flu vaccine- had some mild symptoms for a few days-resolved Gabapentin is helping with neuropathy- increased 600 mg tid Uses cane walker if needed for longer distances No falls Adriel Vides RN March 26, 2024 12:30 PM Allergies As of Date: 03/26/2024 Noted Allergy Reaction DEMEROL (MEPERIDINE (PF)) 11/18/2016 1 - Mental Status Change Comments: Gave too high of dose BAYCOL 02/01/2023 14 - Other: See Comments Comments: Rhabdoymyolysis CONTRAST DYE (IODINE) 06/28/2019 5 - Intolerance Comments: pt needs to be oral hydrated after injection,..patient STATES HE IS NOT ALLERGIC TO IV DYE.. LOPID (GEMFIBROZIL) 07/14/2006 14 - Other: See Comments Comments: Myalgia. Date Reviewed: 01/16/2024 Reviewed by: Jhoan Siegel LPN - Fully Assessed Reason for Visit: community monitoring outreach [Other] Cmt: CDM-Telephonic outreach Prescriptions as of 03/26/2024 - gabapentin (NEURONTIN) 600 mg tablet Take 1 tablet by mouth three times a day for 180 days. - SYMBICORT 160-4.5 mcg/actuation inhaler INHALE 2 PUFFS BY MOUTH TWICE DAILY DIRECTED - ramipril (ALTACE) 10 mg capsule Take 1 capsule by mouth once daily. - tamsulosin (FLOMAX) 0.4 mg TAKE ONE CAPSULE BY MOUTH ONCE DAILY AT BEDTIME - pantoprazole DR (PROTONIX) 40 mg tablet Take 1 tablet by mouth daily before breakfast. Take on empty stomach, 1/2 hr before meal. - sfnatisp-wvuvsnlqy-tvypzifhmpgkwg (CORTISPORIN) 3.5-10,000-1 mg/mL-unit/mL-% otic suspension Use 4 Drops in the ears four times daily. x 1 week - clotrimazole-betamethasone (LOTRISONE) cream Apply 1 application to affected area two times a day. As needed - meclizine (ANTIVERT) 25 mg tab Take 1 tablet by mouth every 6 hours as needed. FOR DIZZINESS - Fenofibrate (LOFIBRA) 160 mg tablet Take 1 tablet by mouth once daily. - albuterol HFA (VENTOLIN HFA) 90 mcg/actuation inhaler Inhale 2 Puffs as instructed every 4 hours as needed for wheezing/shortness of breath. - guaiFENesin (MUCINEX) 600 mg 12 hr tablet Take 2 tablets by mouth twice daily. As needed - acetaminophen (TYLENOL) 500 mg tablet Take 2 tablets by mouth every 6 hours. - cholecalciferol (VITAMIN D3) 1,000 unit tab tablet Cholecalciferol (Vit D3) Active 3000 UNIT TWICE A DAY November 23, 2014 8:06am - aspirin 81 mg cap Take 1 capsule by mouth once daily. 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]01/01/2014 AAA (abdominal aortic aneurysm) (HCC) [I71.40] 07/09/2014 11/25/2020 Enlarged prostate [N40.0] 10/29/2014 Lower urinary tract symptoms (LUTS) [R39.9] 10/29/2014 History of kidney stones [Z87.442] 10/29/2014 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 Flu vaccine given Keep scheduled appointments with specialists Follow up in 3 months, get repeat labs in early July documented in this encounterCity [facility]09-04-[facility] History of Present illness Narrative* Karla Campuzano APRN.SARAI - 03/21/2024 1:40 PM EDT This is a 88 year old male who presents today with: Patient presents with: Follow Up HISTORY OF PRESENT ILLNESS: Paco Whitney is a 88 year old male. Patient presents with: Follow Up GERD: Taking Protonix 40 mg daily, symptoms well controlled. HTN: Taking ramipril 10 mg daily. Not currently checking blood pressure at home. Has had ongoing dizziness in the past, uses meclizine as needed. Stress test was completed in November 2022. AAA: Following with vascular medicine, Dr. Nolen. Had follow up with Dr. Sultana (surgeon), had an US completed. Has stent in place. Us showed patent graft. Lipid: Watching diet, difficulty exercising due to pain and neuropathy. Taking Lofibra 160 mg daily. Trigs elevated on recent labs. Chronic neuropathy: Using cane for ambulation. Taking gabapentin 600 mg 3 times daily and Tylenol as needed. Gabapentin was increased at last office visit which has been helpful. 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 Taking aspirin 81 mg daily. Will apply diabetic footcream to feet as needed for pain. COPD: Taking Symbicort twice daily, albuterol and nebulizer as needed. Follows with pulmonology every 6 months. Chronic shoulder pain: Following with orthopedics. Has had injections in the past. Vaccine: Would like flu vaccine PAST MEDICAL HISTORY: PAST MEDICAL HISTORY No date: AAA (abdominal aortic aneurysm) without rupture (HCC) No date: Bronchitis, chronic (HCC) 12/16/2014: Diverticulitis No date: Diverticulosis of colon with hemorrhage No date: Essential hypertension, benign No date: GERD (gastroesophageal reflux disease) 03/29/2011: History of eye surgery Comment: Right eye No date: Other and unspecified hyperlipidemia 12/16/2014: Rectal bleeding No date: Retinal detachment with retinal defect, unspecified Comment: RIGHT EYE, WITH LENSE 07/18/2003: Rhabdomyolysis Comment: had as a result of Baycol No date: Unspecified asthma(493.90) No date: Unspecified cause of encephalitis, myelitis, and encephalomyelitis Comment: had mumps as an adult No date: Unspecified transient cerebral ischemia Comment: x 2; artery syndrome PAST SURGICAL HISTORY 2002: ARTHRP KNE CONDYLE&PLATU MEDIAL&LAT COMPARTMENTS Comment: Knee replacement, total, left 2005: CHOLECYSTECTOMY Comment: Cholecystectomy 04/11/2006: COLONOSCOPY 12/16/2014: COLONOSCOPY Comment: widespread diverticulosis,Repeat 202409/19/2011: COLONOSCOPY FLX DX W/COLLJ SPEC WHEN PFRMD Comment: Colonoscopy [facility] 01/2013: ENDOVASCULAR ANEURYSM REPAIR Comment: with bi-liac device 04/03/2013: HERNIA REPAIR HX 1971: PAST SURGICAL HISTORY OF Comment: Back Surgery 11/15/2016: PAST SURGICAL HISTORY OF Comment: Colonoscopy, Dr. Romeo 2004: RPR RETINAL DTCHMNT DRG SUBRETINAL FLUID PC Comment: Laser repair retinal detach, right eye No date: TONSILLECTOMY PRIMARY/SECONDARY <AGE 14 Comment: Tonsillectomy 1963: VASECTOMY UNI/BI SPX W/POSTOP SEMEN EXAMS ALLERGIES Demerol [Meperidine (Pf)], Baycol, Contrast Dye [Iodine], and Lopid [Gemfibrozil] MEDICATIONS Current Outpatient Medications Medication Sig gabapentin (NEURONTIN) 600 mg tablet Take 1 tablet by mouth three times a day for 180 days. SYMBICORT 160-4.5 mcg/actuation inhaler INHALE 2 PUFFS BY MOUTH TWICE DAILY DIRECTED ramipril (ALTACE) 10 mg capsule Take 1 capsule by mouth once daily. tamsulosin (FLOMAX) 0.4 mg TAKE ONE CAPSULE BY MOUTH ONCE DAILY AT BEDTIME pantoprazole DR (PROTONIX) 40 mg tablet Take 1 tablet by mouth daily before breakfast. Take on empty stomach, 1/2 hr before meal. nfmpgaeq-hxsluqqyr-ewoxxenlrgcqmv (CORTISPORIN) 3.5-10,000-1 mg/mL-unit/mL-% otic suspension Use 4 Drops in the ears four times daily. x 1 week clotrimazole-betamethasone (LOTRISONE) cream Apply 1 application to affected area two times a day. As needed meclizine (ANTIVERT) 25 mg tab Take 1 tablet by mouth every 6 hours as needed. FOR DIZZINESS Fenofibrate (LOFIBRA) 160 mg tablet Take 1 tablet by mouth once daily. albuterol HFA (VENTOLIN HFA) 90 mcg/actuation inhaler Inhale 2 Puffs as instructed every 4 hours asneeded for wheezing/shortness of breath. guaiFENesin (MUCINEX) 600 mg 12 hr tablet Take 2 tablets by mouth twice daily. As needed acetaminophen (TYLENOL) 500 mg tablet Take 2 tablets by mouth every 6 hours. cholecalciferol (VITAMIN D3) 1,000 unit tab tablet Cholecalciferol (Vit D3) Active 3000 UNIT TWICE A DAY November 23, 2014 8:06am aspirin 81 mg cap Take 1 capsule by mouth once daily. No current facility-administered medications for this visit. FAMILY HISTORY Problem Relation Age of Onset Hypertension Mother other (Parkinsons disease) Mother Heart Father Heart Brother Heart surgery Cancer Brother of liver. Diabetes Brother Heart disease Son No Family History No Family History No COPD, lung cancer. Social History Tobacco Use Smoking status: Former Current packs/day: 0.00 Average packs/day: 2.0 packs/day for 32.0 years (64.0 ttl pk-yrs) Types: Cigarettes Start date: 1959 Quit date: 10/30/1990 Years since quittin.4 Smokeless tobacco: Never Tobacco comments: Multiple 4-5 year quits during smoking career. Vaping Use Vaping status: Never Used Substance Use Topics Alcohol use: No Drug use: No REVIEW OF SYSTEMS GENERAL: No weight loss, malaise or fevers/chills HEENT: Negative for frequent or significant headaches, No changes in hearing or vision. NECK: Negative for lumps, goiter, pain and significant neck swelling RESPIRATORY: Negative for cough, hemoptysis, wheezing, dyspnea or shortness of breath CARDIOVASCULAR: Negative for chest pain, leg swelling, orthopnea, or palpitations GI: No nausea, vomiting, or diarrhea/constipation. No hematochezia/melena. No heartburn or reflux symptoms. : No history of dysuria, frequency or incontinence MUSCULOSKELETAL: Negative for joint pain or swelling. SKIN: Negative for lesions, rash, and itching ENDOCRINE: Negative for cold or heat intolerance, polyuria, polydipsia and goiter NEURO: No history of headaches, syncope, paralysis, seizures or tremors MOOD: Negative for depression, anxiety, or suicidal ideation. EXAM: There were no vitals taken for this visit. PHYSICAL EXAM: General Appearance: Well appearing, alert, in no acute distress, well-hydrated, well nourished. Skin: Skin color, texture, turgor normal, no suspicious rashes or lesions. Head: Normocephalic, no masses, lesions, tenderness or abnormalities. Eyes: Anicteric sclera. Extraocular movements are intact. Lungs: Lungs clear to auscultation. No wheezing, rhonchi, rales. Heart: RRR without murmur, gallop, or rubs. No ectopy. Extremities: No deformities, edema, skin discoloration, clubbing or cyanosis. Good capillary refill. Peripheral Pulses: Normal, Capillary refill <2secs, strong peripheral pulses, Pulses palpable. Neurologic: Gait normal. Sensation grossly intact. Latest Ref Rn 03/07/2024 Protein, Total 6.3 - 8.0 g/dL 6.2 (L) Albumin 3.9 - 4.9 g/dL 4.0 Calcium 8.5 - 10.2 mg/dL 9.8 Bilirubin, Total 0.2 - 1.3 mg/dL 0.9 Alkaline Phosphatase 38 - 113 U/L 74 AST 14 - 40 U/L 28 ALT 10 - 54 U/L 20 Glucose 74 - 99 mg/dL 81 BUN 9 - 24 mg/dL 22 Creatinine 0.73 - 1.22 mg/dL 1.06 Sodium 136 - 144 mmol/L 140 Potassium 3.7 - 5.1 mmol/L 4.7 Chloride 98 - 107 mmol/L 105 CO2 22 - 30 mmol/L 24 Anion Gap 8 - 15 mmol/L 11 eGFR >=60 mL/min/1.73m 68 Cholesterol, Total <200 mg/dL 179 Triglyceride <150 mg/dL 264 (H) HDL Cholesterol >39 mg/dL 29 (L) Non HDL Cholesterol <130 mg/dL 150 (H) Fasting Time hrs 12 VLDL Cholesterol <30 mg/dL 53 (H) TC:HDL Ratio <5.10 6.17 (H) LDL Cholesterol <100 mg/dL 97 LDL:HDL Ratio <2.54 3.34 (H) Legend: (L) Low (H) High ASSESSMENT/PLAN: 1. Essential hypertension, benign - ICD9: 401.1, ICD10: I10 (primary diagnosis) - Continue current medications - Recommend home blood pressure monitoring, to bring results to next visit - Encouraged sodium restriction, DASH or Mediterranean diet - Recommend regular aerobic exercise - Discussed need for and benefit of weight loss. No weight on file for this encounter. 2. Hyperlipidemia, unspecified hyperlipidemia type - ICD9: 272.4, ICD10: E78.5 - Uncontrolled - Continue current medications - Counseled on healthy diet and regular exercise - Discussed need for and benefit of weight loss. No weight on file for this encounter. - Watch processed foods in the diet. - COMPREHENSIVE METABOLIC PANEL - LIPID PANEL BASIC 3. Abdominal aortic aneurysm (AAA) without rupture, unspecified part (HCC) - ICD9: 441.4, ICD10: I71.40 - Stable 4. GERD without esophagitis - ICD9: 530.81, ICD10: K21.9 - Stable, continue to take current medication. 5. COPD with exacerbation (HCC) - ICD9: 491.21, ICD10: J44.1 - Stable, continue take current medication. - Keep scheduled appointments with charting clerk. 6. Neuropathy - ICD9: 355.9, ICD10: G62.9 - Stable, continue to take current medication. 7. Chronic pain of both shoulders - ICD9: 719.41, 338.29, ICD10: M25.511, G89.29, M25.512 - Stable 8. Encounter for immunization - ICD9: V03.89, ICD10: Z23 - VIS provided. - INFLUENZA VACCINE, PRSV FREE, AGE 65+ YR, HIGH DOSE, TRIVALENT (FLUZONE HIGH-DOSE) Follow-up in 3 months or sooner as needed. Discussed treatment plan and patient voices understanding. Patient's questions answered appropriately. Medications and potential side effects were discussed and patient voices understanding. Karla Campuzano APRN.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 This note was partially generated using [employer] voice recognition system. Note was reviewed for accuracy. There may be minor misspellings or grammar miscues with [employer] voice recognition. documented in this encounterCity Hospital09-04-2024 NoteHNO ID: [id number] Author: KARLA CAMPUZANO APRN.SARAI Service: ? Author Type: Nurse Practitioner Type: Progress Notes Filed: 03/21/2024 15:12 Note Text: This is a 88 year old male who presents today with: Patient presents with: Follow Up HISTORY OF PRESENT ILLNESS: Paco Whitney is a 88 year old male. Patient presents with: Follow Up GERD: Taking Protonix 40 mg daily, symptoms well controlled. HTN: Taking ramipril 10 mg daily. Not currently checking blood pressure at home. Has had ongoing dizziness in the past, uses meclizine as needed. Stress test was completed in November 2022. AAA: Following with vascular medicine, Dr. Nolen. Had follow up with Dr. Sultana (surgeon), had an US completed. Has stent in place. Us showed patent graft. Lipid: Watching diet, difficulty exercising due to pain and neuropathy. Taking Lofibra 160 mg daily. Trigs elevated on recent labs. Chronic neuropathy: Using cane for ambulation. Taking gabapentin 600 mg 3 times daily and Tylenol as needed. Gabapentin was increased at last office visit which has been helpful. 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 Taking aspirin 81 mg daily. Will apply diabetic foot cream to feet as needed for pain. COPD: Taking Symbicort twice daily, albuterol and nebulizer as needed. Follows with pulmonology every 6 months. Chronic shoulder pain: Following with orthopedics. Has had injections in the past. Vaccine: Would like flu vaccine PAST MEDICAL HISTORY: PAST MEDICAL HISTORY No date: AAA (abdominal aortic aneurysm) without rupture (HCC) No date: Bronchitis, chronic (HCC) 12/16/2014: Diverticulitis No date: Diverticulosis of colon with hemorrhage No date: Essential hypertension, benign No date: GERD (gastroesophageal reflux disease) 03/29/2011: History of eye surgery Comment: Right eye No date: Other and unspecified hyperlipidemia 12/16/2014: Rectal bleeding No date: Retinal detachment with retinal defect, unspecified Comment: RIGHT EYE, WITH LENSE 07/18/2003: Rhabdomyolysis Comment: had as a result of Baycol No date: Unspecified asthma(493.90) No date: Unspecified cause of encephalitis, myelitis, and encephalomyelitis Comment: had mumps as an adult No date: Unspecified transient cerebral ischemia Comment: x 2; artery syndrome PAST SURGICAL HISTORY 2002: ARTHRP KNE CONDYLEANDPLATU MEDIALANDLAT COMPARTMENTS Comment: Knee replacement, total, left 2006: CHOLECYSTECTOMY Comment: Cholecystectomy 04/11/2006: COLONOSCOPY 12/16/2014: COLONOSCOPY Comment: widespread diverticulosis,Repeat 202409/19/2011: COLONOSCOPY FLX DX W/COLLJ SPEC WHEN PFRMD Comment: Colonoscopy inpt [facility] 01/2013: ENDOVASCULAR ANEURYSM REPAIR Comment: with bi-liac device 04/03/2013: HERNIA REPAIR HX 1971: PAST SURGICAL HISTORY OF Comment: Back Surgery 11/15/2016: PAST SURGICAL HISTORY OF Comment: Colonoscopy, Dr. Romeo 2003: RPR RETINAL DTCHMNT DRG SUBRETINAL FLUID PC Comment: Laser repair retinal detach, right eye No date: TONSILLECTOMY PRIMARY/SECONDARY Comment: Tonsillectomy 1964: VASECTOMY UNI/BI SPX W/POSTOP SEMEN EXAMS ALLERGIES Demerol [Meperidine (Pf)], Baycol, Contrast Dye [Iodine], and Lopid [Gemfibrozil] MEDICATIONS Current Outpatient Medications Medication Sig gabapentin (NEURONTIN) 600 mg tablet Take 1 tablet by mouth three times a day for 180 days. SYMBICORT 160-4.5 mcg/actuation inhaler INHALE 2 PUFFS BY MOUTH TWICE DAILY DIRECTED ramipril (ALTACE) 10 mg capsule Take 1 capsule by mouth once daily. tamsulosin (FLOMAX) 0.4 mg TAKE ONE CAPSULE BY MOUTH ONCE DAILY AT BEDTIME pantoprazole DR (PROTONIX) 40 mg tablet Take 1 tablet by mouth daily before breakfast. Take on empty stomach, 1/2 hr before meal. ajzeymcx-yjdtvtugs-nwfzmknzefvtdc (CORTISPORIN) 3.5-10,000-1 mg/mL-unit/mL-% otic suspension Use 4 Drops in the ears four times daily. x 1 week clotrimazole-betamethasone (LOTRISONE) cream Apply 1 application to affected area two times a day. As needed meclizine (ANTIVERT) 25 mg tab Take 1 tablet by mouth every 6 hours as needed. FOR DIZZINESS Fenofibrate (LOFIBRA) 160 mg tablet Take 1 tablet by mouth once daily. albuterol HFA (VENTOLIN HFA) 90 mcg/actuation inhaler Inhale 2 Puffs as instructed every 4 hours as needed for wheezing/shortness of breath. guaiFENesin (MUCINEX) 600 mg 12 hr tablet Take 2 tablets by mouth twice daily. As needed acetaminophen (TYLENOL) 500 mg tablet Take 2 tablets by mouth every 6 hours. cholecalciferol (VITAMIN D3) 1,000 unit tab tablet Cholecalciferol (Vit D3) Active 3000 UNIT TWICE A DAY November 23, 2014 8:06am aspirin 81 mg cap Take 1 capsule by mouth once daily. No current facility-administered medications for this visit. FAMILY HISTORY Problem Relation Age of Onset Hypertension Mother other (Parkinsons disease) Mother Heart Father Heart Brother Heart surgery Cancer Brother of liver. Diabetes Brother (more content not included)...[facility] 03-14-2024 Telephone encounter Note* Telephone Encounter - Jhoan Siegel LPN - 03/14/2024 2:24 PM EDT Patient notified of results, verbalizes understanding of instructions. Jhoan Siegel LPN [facility] Miscellaneous Notes* Telephone Encounter - Jhoan Siegel LPN - 03/14/2024 2:24 PM EDT Patient notified of results, verbalizes understanding of instructions. Jhoan Siegel LPN * Telephone Encounter - Karla Campuzano APRN.CNP - 03/14/2024 12:25 PM EDT Can you please call the patient and let him know that I reviewed his lab results. Triglycerides areelevated. I would like him to take current medication. Try to be mindful of processed foods in the diet. Increase lean protein, vegetables, and get some form exercise. May keep upcoming appointment. Please let me know if he has any questions. Thank you. Karla Campuzano APRN.SARAI documented in this encounterCity Hospital08-28-2024 Telephone encounter Note * Telephone Encounter - Karla Campuzano APRN.CNP - 03/14/2024 12:25 PM EDT Can you please call the patient and let him know that I reviewed his lab results. Triglycerides areelevated. I would like him to take current medication. Try to be mindful of processed foods in the diet. Increase lean protein, vegetables, and get some form exercise. May keep upcoming appointment. Please let me know if he has any questions. Thank you. Karla Campuzano APRN.CNP [facility] History of Present illness Narrative* Adriel Vides RN - 02/24/2024 2:34 PM EDT [facility] Telephonic Outreach Provider Action/FYI Contacted for: Routine Telephonic Outreach Contact made with patient: Yes Patient identified by name and date of . Discussed care with patient Are you experiencing any new or worsening symptoms you need to talk about today? No Based on children's attendant, the following disposition is advised: No symptoms or symptoms present, not severe. 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 Listened with HEART Adriel Vides RN February 24, 2024 2:47 PM documented in this encounterCity Hospital08-02-2024 Telephone encounter Note * Telephone Encounter - Clarice Murillo MD - 02/17/2024 3:32 PM EDT Done and given to pt in office Clarice Murillo MD [facility] Miscellaneous Notes* Telephone Encounter - Clarice Murillo MD - 02/17/2024 3:32 PM EDT Done and given to pt in office Clarice Murillo MD * Telephone Encounter - Korin Calixto MA - 02/17/2024 2:13 PM EDT Requesting renewal of handicap placard. In office with today for OV. Printed and on your desk to sign. Korin Calixto MA [facility] Telephone encounter Note * Telephone Encounter - Korin Calixto MA - 02/17/2024 2:13 PM EDT Requesting renewal of handicap placard. In office with today for OV. Printed and on your desk to sign. Korin Calixto MA [facility]07-11-2024 History of Present illness Narrative* Adriel Vides RN - 01/26/2024 2:39 PM EDT CDM Telephonic Outreach Provider Action/FYI Doing well No concerns today Taking increased dose of gabapentin and is helping a great deal with his neuropathy Encouraged to stay active, healthy diet Contacted for: Routine Telephonic Outreach Contact made with patient: Yes Patient identified by name and date of . Discussed care with patient Are you experiencing any new or worsening symptoms you need to talk about today? No Based on children's attendant, the following disposition is advised: No symptoms or symptoms present, not severe. Routed to: No Action Needed GEOFF Education Provided this Outreach: No Adriel Vides RN January 26, 2024 2:50 PM documented in [facility]City [facility] Telephone encounter Note * Telephone Encounter - Karla Campuzano APRN.SARAI - 01/25/2024 7:00 PM EDT The following approved medication requests have been transmitted electronically. Requested Prescriptions Signed Prescriptions Disp Refills gabapentin (NEURONTIN) 600 mg tablet 90 tablet 5 Sig: Take 1 tablet by mouth three times a day for 180 days. Authorizing Provider: KARLA CAMPUZANO APRN.CNP [facility]-10[facility]24 Miscellaneous Notes* Telephone Encounter - Karla Campuzano APRN.CNP - 01/25/2024 7:00 PM EDT The following approved medication requests have been transmitted electronically. Requested Prescriptions Signed Prescriptions Disp Refills gabapentin (NEURONTIN) 600 mg tablet 90 tablet 5 Sig: Take 1 tablet by mouth three times a day for 180 days. Authorizing Provider: KARLA CAMPUZANO APRN.CNP * Telephone Encounter - Whit Rodriguez RN - 01/25/2024 4:11 PM EDT Patient calls and states that provider had increased patient's gabapentin to 600 mg TID from 300 mgTID. Patient states that this has been very helpful with his neuropathy. Patient will need a new prescription sent for this to [facility]. Whit Rodriguez RN documented in [facility]City [facility] Telephone encounter Note * Telephone Encounter - Whit Rodriguez RN - 01/25/2024 4:11 PM EDT Patient calls and states that provider had increased patient's gabapentin to 600 mg TID from 300 mgTID. Patient states that this has been very helpful with his neuropathy. Patient will need a new prescription sent for this to [facility]. Whit Rodriguez RN [facility]07-01-[facility]24 Instructions* Patient Instructions* Karla Campuzano APRN.CNP - 01/16/2024 1:12 PM EDT May do a trial of increasing gabapentin 300 mg ( 2 capsules= 600 mg) Three times daily. Contact theoffice with update Keep scheduled appointments with specialists Continue to take all medications as prescribed Check to see if follow up is needed with vascular surgery (Dr. Nolen) Get fasting labs completed April 08 or later. Follow up in 3 months. documented in this encounterCity [facility] History of Present illness Narrative* Karla Campuzano APRN.CNP - 01/16/2024 1:00 PM EDT This is a 88 year old male who presents today with: Patient presents with: Follow Up: 3 month follow up HISTORY OF PRESENT ILLNESS: Paco Whitney is a 88 year old male. Patient presents with: Follow Up: 3 month follow up 3 month follow up GERD: Taking Protonix 40 mg daily, symptoms well controlled. HTN: Taking ramipril 10 mg daily. Not currently checking blood pressure at home. Has had ongoing dizziness in the past, uses meclizine as needed. Stress test was completed in November 2022. AAA: Following with vascular medicine, Dr. Nolen. Had follow up with Dr. Sultana (surgeon), had an US completed. Has stent in place. Us showed patent graft. Lipid: Watching diet, difficulty exercising due to pain and neuropathy. Taking Lofibra 160 mg daily. Chronic neuropathy: Using cane for ambulation. Taking gabapentin 300 mg 3 times daily and Tylenol as needed. Has noticed increased symptoms at night time. 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 Taking aspirin 81 mg daily. Will apply diabetic foot cream to feet as neededfor pain. COPD: Taking Symbicort twice daily, albuterol and nebulizer as needed. Follows with pulmonology every 6 months. Had covid in the fall. Chronic shoulder pain: Following with orthopedics. Has had injections in the past. Lab will be due in March with OV PAST MEDICAL HISTORY: PAST MEDICAL HISTORY Diagnosis Date AAA (abdominal aortic aneurysm) without rupture (HCC) Bronchitis, chronic (HCC) Diverticulitis 12/16/2014 Diverticulosis of colon with hemorrhage Essential hypertension, benign GERD (gastroesophageal reflux disease) History of eye surgery 03/29/2011 Right eye Other and unspecified hyperlipidemia Rectal bleeding 12/16/2014 Retinal detachment with retinal defect, unspecified RIGHT EYE, WITH LENSE Rhabdomyolysis 07/18/2003 had as a result of Baycol Unspecified asthma(493.90) Unspecified cause of encephalitis, myelitis, and encephalomyelitis had mumps as an adult Unspecified transient cerebral ischemia x 2; artery syndrome PAST SURGICAL HISTORY Procedure Laterality Date ARTHRP KNE CONDYLE&PLATU MEDIAL&LAT COMPARTMENTS 2002 Knee replacement, total, left CHOLECYSTECTOMY 2006 Cholecystectomy COLONOSCOPY 04/11/2006 COLONOSCOPY 12/16/2014 widespread diverticulosis,Repeat 2024 COLONOSCOPY FLX DX W/COLLJ SPEC WHEN PFRMD 09/19/2011 Colonoscopy [facility] ENDOVASCULAR ANEURYSM REPAIR 01/2013 with bi-lia device HERNIA REPAIR HX 04/03/2013 PAST SURGICAL HISTORY OF 1971 Back Surgery PAST SURGICAL HISTORY OF 11/15/2016 Colonoscopy, Dr. Romeo RPR RETINAL DTCHMNT DRG SUBRETINAL FLUID PC 2003 Laser repair retinal detach, right eye TONSILLECTOMY PRIMARY/SECONDARY <AGE 14 Tonsillectomy VASECTOMY UNI/BI SPX W/POSTOP SEMEN EXAMS 1964 ALLERGIES Demerol [Meperidine (Pf)], Baycol, Contrast Dye [Iodine], and Lopid [Gemfibrozil] MEDICATIONS Current Outpatient Medications Medication Sig gabapentin (NEURONTIN) 300 mg capsule Take 1 capsule by mouth three times a day for 180 days. SYMBICORT 160-4.5 mcg/actuation inhaler INHALE 2 PUFFS BY MOUTH TWICE DAILY DIRECTED ramipril (ALTACE) 10 mg capsule Take 1 capsule by mouth once daily. tamsulosin (FLOMAX) 0.4 mg TAKE ONE CAPSULE BY MOUTH ONCE DAILY AT BEDTIME pantoprazole DR (PROTONIX) 40 mg tablet Take 1 tablet by mouth daily before breakfast. Take on empty stomach, 1/2 hr before meal. prpauzcm-eedpaatdq-iodwslbpievcgs (CORTISPORIN) 3.5-10,000-1 mg/mL-unit/mL-% otic suspension Use 4 Drops in the ears four times daily. x 1 week clotrimazole-betamethasone (LOTRISONE) cream Apply 1 application to affected area two times a day. As needed meclizine (ANTIVERT) 25 mg tab Take 1 tablet by mouth every 6 hours as needed. FOR DIZZINESS Fenofibrate (LOFIBRA) 160 mg tablet Take 1 tablet by mouth once daily. albuterol HFA (VENTOLIN HFA) 90 mcg/actuation inhaler Inhale 2 Puffs as instructed every 4 hours asneeded for wheezing/shortness of breath. guaiFENesin (MUCINEX) 600 mg 12 hr tablet Take 2 tablets by mouth twice daily. As needed acetaminophen (TYLENOL) 500 mg tablet Take 2 tablets by mouth every 6 hours. cholecalciferol (VITAMIN D3) 1,000 unit tab tablet Cholecalciferol (Vit D3) Active 3000 UNIT TWICE A DAY November 23, 2014 8:06am aspirin 81 mg cap Take 1 capsule by mouth once daily. No current facility-administered medications for this visit. FAMILY HISTORY Problem Relation Age of Onset Hypertension Mother other (Parkinsons disease) Mother Heart Father Heart Brother Heart surgery Cancer Brother of liver. Diabetes Brother Heart disease Son No Family History No Family History No COPD, lung cancer. Social History Tobacco Use Smoking status: Former Packs/day: 2.00 Years: 32.00 Additional pack years: 0.00 Total pack years: 64.00 Types: Cigarettes Start date: 1959 Quit date: 10/30/1990 Years since quittin.2 Smokeless tobacco: Never Tobacco comments: Multiple 4-5 year quits during smoking career. Vaping Use Vaping Use: Never used Substance Use Topics Alcohol use: No Drug use: No REVIEW OF SYSTEMS GENERAL: No weight loss, malaise or fevers/chills HEENT: Negative for frequent or significant headaches, No changes in hearing or vision. NECK: Negative for lumps, goiter, pain and significant neck swelling RESPIRATORY: Negative for cough, hemoptysis, wheezing, dyspnea or shortness of breath CARDIOVASCULAR: Negative for chest pain, leg swelling, orthopnea, or palpitations GI: No nausea, vomiting, or diarrhea/constipation. No hematochezia/melena. No heartburn or reflux symptoms. : No history of dysuria, frequency or incontinence MUSCULOSKELETAL: Negative for joint pain or swelling. SKIN: Negative for lesions, rash, and itching ENDOCRINE: Negative for cold or heat intolerance, polyuria, polydipsia and goiter NEURO: No history of headaches, syncope, paralysis, seizures or tremors MOOD: Negative for depression, anxiety, or suicidal ideation. EXAM: BP 110/70 Pulse 86 Resp 16 Wt 92.1 kg (203 lb) SpO2 95% BMI 29.13 kg/m PHYSICAL EXAM: General Appearance: Well appearing, alert, in no acute distress, well-hydrated, well nourished. Skin: Skin color, texture, turgor normal, no suspicious rashes or lesions. Head: Normocephalic, no masses, lesions, tenderness or abnormalities. Eyes: Anicteric sclera. Extraocular movements are intact. Lungs: Lungs clear to auscultation. No wheezing, rhonchi, rales. Heart: RRR without murmur, gallop, or rubs. No ectopy. Extremities: No deformities, edema, skin discoloration, clubbing or cyanosis. Good capillary refill. Peripheral Pulses: Normal, Capillary refill <2secs, strong peripheral pulses, Pulses palpable. Neurologic: Gait normal. Reflexes normal and symmetric. ASSESSMENT/PLAN: 1. Essential hypertension, benign - ICD9: 401.1, ICD10: I10 (primary diagnosis) - Controlled - Continue current medications - Recommend home blood pressure monitoring, to bring results to next visit - Encouraged sodium restriction, DASH or Mediterranean diet - Recommend regular aerobic exercise 2. Hyperlipidemia, unspecified hyperlipidemia type - ICD9: 272.4, ICD10: E78.5 - Uncontrolled - Continue current medications - Counseled on healthy diet and regular exercise - Discussed need for and benefit of weight loss. BMI 32.76 kg/(m^2) 3. Abdominal aortic aneurysm (AAA) without rupture, unspecified part (HCC) - ICD9: 441.4, ICD10: I71.40 - Stable, keep scheduled appt with Vascular surgery 4. GERD without esophagitis - ICD9: 530.81, ICD10: K21.9 - Stable, continue to take medication as prescribed. 5. Neuropathy - ICD9: 355.9, ICD10: G62.9 - November trial increase in Gabapentin, 300 mg ( 2 capsules- 600 mg) TID. - Instructed to contact the office with an update 6. Chronic obstructive pulmonary disease, unspecified COPD type (HCC) - ICD9: 496, ICD10: J44.9 - Stable, continue to take current medication. - Keep scheduled appt with pulmonology. 7. Acute pain of both shoulders - ICD9: 719.41, ICD10: M25.511, M25.512 - Stable Follow-up in 3 months or sooner as needed. Discussed treatment plan and patient voices understanding. Patient's questions answered appropriately. Medications and potential side effects were discussed and patient voices understanding. Karla Campuzano APRN.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 This note was partially generated using [employer] voice recognition system. Note was reviewed for accuracy. There may be minor misspellings or grammar miscues with [employer] voice recognition. documented in this encounterCity [facility]06-18-[facility]24 History of Present illness Narrative* Francia Luna MD - 01/03/2024 1:39 PM EDT Images from the original note were not included. . [facility] [place] Note Patient name: Paco Whitney PCP: Clarice Murillo MD CC: follow-up CB HPI: Paco Whitney 88 year old male former [id number] smoker quitting in 1990 with PMH significant for chronic bronchitis, GERD, HTN, pulmonary nodules and a 3 cm lung mass previously evaluated by biopsy in 2014 that was negative for malignancy. To my review of his imaging, his 3 cm mass was consistent with rounded atelectasis. Inhaled therapy consists of Symbicort and as needed albuterol. Since RAYO with me, had AAA endovascular repair with bi-iliac stents. Last required antibiotic and prednisone in September. Overall, he states he has been doing fairly well. He has no significant dyspnea or wheezing but does have intermittent chest congestion and cough with phlegm production, mostly clear.No hemoptysis. Some days are better than others. His last CTA abdomen in February showed stable RLL mass and stable peripheral reticulations. DATA: Labs: Imaging / Diagnostic Studies: CTA ABD 02/2023: I personally reviewed the images with interpretation in HPI PAST MEDICAL HISTORY Diagnosis Date AAA (abdominal aortic aneurysm) without rupture (HCC) Bronchitis, chronic (HCC) Diverticulitis 12/16/2014 Diverticulosis of colon with hemorrhage Essential hypertension, benign GERD (gastroesophageal reflux disease) History of eye surgery 03/29/2011 Right eye Other and unspecified hyperlipidemia Rectal bleeding 12/16/2014 Retinal detachment with retinal defect, unspecified RIGHT EYE, WITH LENSE Rhabdomyolysis 07/18/2003 had as a result of Baycol Unspecified asthma(493.90) Unspecified cause of encephalitis, myelitis, 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 Lopid [Gemfibrozil] Other: See Comments Myalgia. gabapentin (NEURONTIN) 300 mg capsule Take 1 capsule by mouth three times a day for 180 days. SYMBICORT 160-4.5 mcg/actuation inhaler INHALE 2 PUFFS BY MOUTH TWICE DAILY DIRECTED ramipril (ALTACE) 10 mg capsule Take 1 capsule by mouth once daily. tamsulosin (FLOMAX) 0.4 mg TAKE ONE CAPSULE BY MOUTH ONCE DAILY AT BEDTIME pantoprazole DR (PROTONIX) 40 mg tablet Take 1 tablet by mouth daily before breakfast. Take on empty stomach, 1/2 hr before meal. Fenofibrate (LOFIBRA) 160 mg tablet Take 1 tablet by mouth once daily. albuterol HFA (VENTOLIN HFA) 90 mcg/actuation inhaler Inhale 2 Puffs as instructed every 4 hours asneeded for wheezing/shortness of breath. guaiFENesin (MUCINEX) 600 mg 12 hr tablet Take 2 tablets by mouth twice daily. As needed cholecalciferol (VITAMIN D3) 1,000 unit tab tablet Cholecalciferol (Vit D3) Active 3000 UNIT TWICE A DAY November 23, 2014 8:06am aspirin 81 mg cap Take 1 capsule by mouth once daily. kknvlebw-jlzfaftjg-pvkdfelxfabace (CORTISPORIN) 3.5-10,000-1 mg/mL-unit/mL-% otic suspension Use 4 Drops in the ears four times daily. x 1 week clotrimazole-betamethasone (LOTRISONE) cream Apply 1 application to affected area two times a day. As needed meclizine (ANTIVERT) 25 mg tab Take 1 tablet by mouth every 6 hours as needed. FOR DIZZINESS acetaminophen (TYLENOL) 500 mg tablet Take 2 tablets by mouth every 6 hours. Social History Tobacco Use Smoking status: Former Packs/day: 2.00 Years: 32.00 Additional pack years: 0.00 Total pack years: 64.00 Types: Cigarettes Start date: 1959 Quit date: 10/30/1990 Years since quittin.2 Smokeless tobacco: Never Tobacco comments: Multiple 4-5 year quits during smoking career. Vaping Use Vaping Use: Never used Substance Use Topics Alcohol use: No Drug use: No FAMILY HISTORY Problem Relation Age of Onset Hypertension Mother other (Parkinsons disease) Mother Heart Father Heart Brother Heart surgery Cancer Brother of liver. Diabetes Brother Heart disease Son No Family History No Family History No COPD, lung cancer. PAST SURGICAL HISTORY Procedure Laterality Date ARTHRP KNE CONDYLE&PLATU MEDIAL&LAT COMPARTMENTS 2002 Knee replacement, total, left CHOLECYSTECTOMY 2005 Cholecystectomy COLONOSCOPY 04/11/2006 COLONOSCOPY 12/16/2014 widespread diverticulosis,Repeat 2024 COLONOSCOPY FLX DX W/COLLJ SPEC WHEN PFRMD 09/19/2011 Colonoscopy [facility] ENDOVASCULAR ANEURYSM REPAIR 01/2013 with bi-liac device HERNIA REPAIR HX 04/03/2013 PAST SURGICAL HISTORY OF 1971 Back Surgery PAST SURGICAL HISTORY OF 11/15/2016 Colonoscopy, Dr. Romeo RPR RETINAL DTCHMNT DRG SUBRETINAL FLUID PC 2003 Laser repair retinal detach, right eye TONSILLECTOMY PRIMARY/SECONDARY <AGE 14 Tonsillectomy VASECTOMY UNI/BI SPX W/POSTOP SEMEN EXAMS 1964 PMH, Social history, family history and surgical history reviewed and updated in EMR REVIEW OF SYSTEMS: CONSTITUTIONAL: No fevers, chills, nightsweats, unintended weight loss HEENT: Denies nasal congestion/sinus symptoms, allergy problems. CARDIOVASCULAR: No chest pain, palpitations, orthopnea, edema. PULM: See HPI GI: No dysphagia/odynophagia, problematic reflux INTEGUMENTARY: No new skin changes PHYSICAL EXAMINATION: BP 120/68 Pulse 75 Resp 14 Wt 201 lb (91.2kg) SpO2 96% General Appearance: Elderly male, NAD. Skin: Skin color, texture, turgor normal. Rash in stocking distribution left leg that appears fungal Head: Normocephalic, no masses, lesions, tenderness or abnormalities. Eyes: Sclera, conjunctiva normal. Oropharynx: No oral lesions or thrush. Lungs: Not Labored, normal to percussion. Wheeze with forced expiration. Heart: RRR, no murmur. Extremities: No edema, no clubbing. Assessment/Plan: 1. COPD with chronic bronchitis -Seems to be controlled with current inhaled therapy -Consider suppressive azithromycin if recurrent bouts of bronchitis. Not indicated at this time 2. Right lower lobe lung mass/rounded atelectasis -No further intervention required at this time 3. 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 Former cigarette smoker -Former smoker with COPD/CB -Not a candidate for lung cancer screening due to age and duration of smoking cessation Francia Luna MD [facility] [place] * Francia Luna MD - 01/03/2024 11:00 AM EDT Images from the original note were not included. . [facility] [place] Note Patient name: Paco Whitney PCP: Clarice Murillo MD CC: follow-up CB HPI: Paco Whitney 88 year old male former [id number] smoker quitting in 1990 with PMH significant for chronic bronchitis, GERD, HTN, pulmonary nodules and a 3 cm lung mass previously evaluated by biopsy in 2014 that was negative for malignancy. To my review of his imaging, his 3 cm mass was consistent with rounded atelectasis. Inhaled therapy consists of Symbicort and as needed albuterol. Since RAYO with me, had AAA endovascular repair with bi-iliac stents. Last required antibiotic and prednisone in September. Overall, he states he has been doing fairly well. He has no significant dyspnea or wheezing but does have persistent chest congestion and cough with phlegm production. Sometimes phlegm is yellow but mostly clear. No hemoptysis. Some days are better than others. His last CTA abdomen in February showed stable RLL mass and stable peripheral reticulations. DATA: Labs: Imaging / Diagnostic Studies: CTA ABD 02/2023: I personally reviewed the images with interpretation in HPI PAST MEDICAL HISTORY Diagnosis Date AAA (abdominal aortic aneurysm) without rupture (HCC) Bronchitis, chronic (HCC) Diverticulitis 12/16/2014 Diverticulosis of colon with hemorrhage Essential hypertension, benign GERD (gastroesophageal reflux disease) History of eye surgery 03/29/2011 Right eye Other and unspecified hyperlipidemia Rectal bleeding 12/16/2014 Retinal detachment with retinal defect, unspecified RIGHT EYE, WITH LENSE Rhabdomyolysis 07/18/2003 had as a result of Baycol Unspecified asthma(493.90) Unspecified cause of encephalitis, myelitis, 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 Lopid [Gemfibrozil] Other: See Comments Myalgia. gabapentin (NEURONTIN) 300 mg capsule Take 1 capsule by mouth three times a day for 180 days. SYMBICORT 160-4.5 mcg/actuation inhaler INHALE 2 PUFFS BY MOUTH TWICE DAILY DIRECTED ramipril (ALTACE) 10 mg capsule Take 1 capsule by mouth once daily. tamsulosin (FLOMAX) 0.4 mg TAKE ONE CAPSULE BY MOUTH ONCE DAILY AT BEDTIME pantoprazole DR (PROTONIX) 40 mg tablet Take 1 tablet by mouth daily before breakfast. Take on empty stomach, 1/2 hr before meal. Fenofibrate (LOFIBRA) 160 mg tablet Take 1 tablet by mouth once daily. albuterol HFA (VENTOLIN HFA) 90 mcg/actuation inhaler Inhale 2 Puffs as instructed every 4 hours asneeded for wheezing/shortness of breath. guaiFENesin (MUCINEX) 600 mg 12 hr tablet Take 2 tablets by mouth twice daily. As needed cholecalciferol (VITAMIN D3) 1,000 unit tab tablet Cholecalciferol (Vit D3) Active 3000 UNIT TWICE A DAY November 23, 2014 8:06am aspirin 81 mg cap Take 1 capsule by mouth once daily. xyublsay-anjfrvage-htnlbnaavanplm (CORTISPORIN) 3.5-10,000-1 mg/mL-unit/mL-% otic suspension Use 4 Drops in the ears four times daily. x 1 week clotrimazole-betamethasone (LOTRISONE) cream Apply 1 application to affected area two times a day. As needed meclizine (ANTIVERT) 25 mg tab Take 1 tablet by mouth every 6 hours as needed. FOR DIZZINESS acetaminophen (TYLENOL) 500 mg tablet Take 2 tablets by mouth every 6 hours. Social History Tobacco Use Smoking status: Former Packs/day: 2.00 Years: 32.00 Additional pack years: 0.00 Total pack years: 64.00 Types: Cigarettes Start date: 1957 Quit date: 10/30/1990 Years since quittin.2 Smokeless tobacco: Never Tobacco comments: Multiple 4-5 year quits during smoking career. Vaping Use Vaping Use: Never used Substance Use Topics Alcohol use: No Drug use: No FAMILY HISTORY Problem Relation Age of Onset Hypertension Mother other (Parkinsons disease) Mother Heart Father Heart Brother Heart surgery Cancer Brother of liver. Diabetes Brother Heart disease Son No Family History No Family History No COPD, lung cancer. PAST SURGICAL HISTORY Procedure Laterality Date ARTHRP KNE CONDYLE&PLATU MEDIAL&LAT COMPARTMENTS 2003 Knee replacement, total, left CHOLECYSTECTOMY 2006 Cholecystectomy COLONOSCOPY 04/11/2006 COLONOSCOPY 12/16/2014 widespread diverticulosis,Repeat 2024 COLONOSCOPY FLX DX W/COLLJ SPEC WHEN PFRMD 09/19/2011 Colonoscopy [facility] ENDOVASCULAR ANEURYSM REPAIR 01/2013 with bi-liac device HERNIA REPAIR HX 04/03/2013 PAST SURGICAL HISTORY OF 1971 Back Surgery PAST SURGICAL HISTORY OF 11/15/2016 Colonoscopy, Dr. Romeo RPR RETINAL DTCHMNT DRG SUBRETINAL FLUID PC 2003 Laser repair retinal detach, right eye TONSILLECTOMY PRIMARY/SECONDARY <AGE 14 Tonsillectomy VASECTOMY UNI/BI SPX W/POSTOP SEMEN EXAMS 1964 PMH, Social history, family history and surgical history reviewed and updated in EMR REVIEW OF SYSTEMS: CONSTITUTIONAL: No fevers, chills, nightsweats, unintended weight loss HEENT: Denies frequent or severe heaches, nasal congestion/sinus symptoms, problematic allergy problems. EYES: No diplopia or blurry vision. CARDIOVASCULAR: No chest pain, dyspnea, palpitations, orthopnea, PND, ankle edema. PULM: No dyspnea, unexplained cough. GI: No dysphagia/odynophagia, problematic reflux, constipation, diarrhea, changes in stool habits, hematochezia, melena. : No new urinary complaints, including dysuria, gross hematuria or pyuria. NEURO: No new balance problems, peripheral weakness/paresthesias or numbness of concern. MUSC-SKEL: No new joint pain, swelling, or erythema. PSY: No concerns regarding depression, anxiety or panic. INTEGUMENTARY: No new skin changes (rash, new or changing mole, new growth) PHYSICAL EXAMINATION: BP 120/68 Pulse 75 Resp 14 Wt 201 lb (91.2kg) SpO2 96% General Appearance: Elderly male, NAD. Skin: Skin color, texture, turgor normal. Rash in stocking distribution left leg that appears fungal Head: Normocephalic, no masses, lesions, tenderness or abnormalities. Eyes: Sclera, conjunctiva normal. Oropharynx: No oral lesions or thrush. Lungs: Not Labored, normal to percussion. Wheeze with forced expiration. Heart: RRR, no murmur. Extremities: No edema, no clubbing. Assessment/Plan: 1. COPD with chronic bronchitis 2. Right lower lobe lung mass/rounded atelectasis 3. ILD 4. Former cigarette smoker Francia Luna MD [facility] [place] [facility]City [facility] Telephone encounter Note * Telephone Encounter - Clarice Murillo MD - 12/27/2023 1:43 PM EDT OK to refill as ordered Clarice Murillo MD [facility] Miscellaneous Notes* Telephone Encounter - Clarice Murillo MD - 12/27/2023 1:43 PM EDT OK to refill as ordered Clarice Murillo MD * Telephone Encounter - Katy Lepe - 12/27/2023 8:50 AM EDT Prescription Refill Information The patient has been identified by name and date of : Yes Caregiver verified no other encounters exist for this prescription request: Yes Caregiver confirmed with patient/requestor that no other refills are due, in the near future, with this provider at this time: Yes The last office visit in the department: 10/07/23 Does the patient have a future office visit with this provider/department: Yes 01/16/24 Requested Prescriptions Pending Prescriptions Disp Refills gabapentin (NEURONTIN) 300 mg capsule 270 capsule 1 Sig: Take 1 capsule by mouth three times a day for 180 days. Katy Rodriguez [facility] December 27, 2023 8:50 AM documented in this encounterCity [facility]06-11-2024 Telephone encounter Note * Telephone Encounter - Katy Lepe - 12/27/2023 8:50 AM EDT Prescription Refill Information The patient has been identified by name and date of : Yes Caregiver verified no other encounters exist for this prescription request: Yes Caregiver confirmed with patient/requestor that no other refills are due, in the near future, with this provider at this time: Yes The last office visit in the department: 10/07/23 Does the patient have a future office visit with this provider/department: Yes 01/16/24 Requested Prescriptions Pending Prescriptions Disp Refills gabapentin (NEURONTIN) 300 mg capsule 270 capsule 1 Sig: Take 1 capsule by mouth three times a day for 180 days. Katy Rodriguez [facility] December 27, 2023 8:50 AM [facility] History of Present illness Narrative* Adriel Vides RN - 12/26/2023 8:59 AM EDT CDM Telephonic Outreach Provider Action/FYI Doing well Just need a new skeleton Discussed active lifestyle bah to aging well COPD- baseline- HTN- at goal Plans for follow up with PCP -last few visits with [facility] Contacted for: Routine Telephonic Outreach Contact made with patient: Yes Patient identified by name and date of . Discussed care with patient Are you experiencing any new or worsening symptoms you need to talk about today? No Disease Specific Do you check your blood pressure at home? No Do you have new or worsening shortness of breath with activity? No Do you have new or worsening cough? No Do you have new or worsening wheezing? No Do you need to use your rescue (Albuterol) inhaler or nebulizer more often than normal? No Based on children's attendant, the following disposition is advised: No symptoms or symptoms present, not severe. Routed to: No Action Needed GEOFF Education Provided this Outreach: No Adriel Vides RN December 26, 2023 11:07 AM documented in this encounterCity Hospital05-08-2024 History of Present illness Narrative* Adriel Vides RN - 11/23/2023 9:31 AM EDT CDM Telephonic Outreach Provider Action/FYI COPD/HTN Doing well. Out [place] drive [place] the [place] with [place]. Enjoying the beautiful day Currently renting recently sold home to his son. Actively looking for smaller place No further bleeding outside of the one episode a month or so ago. Hx diverticular ds-watches diet Very nice man Contacted for: Routine Telephonic Outreach Contact made with patient: Yes Patient identified by name and date of . Discussed care with patient Are you experiencing any new or worsening symptoms you need to talk about today? No Disease Specific Do you check your blood pressure at home? No Do you have new or worsening shortness of breath with activity? No Do you have new or worsening cough? No Do you have new or worsening wheezing? No Do you need to use your rescue (Albuterol) inhaler or nebulizer more often than normal? No Based on children's attendant, the following disposition is advised: No symptoms or symptoms present, not severe. Routed to: No Action Needed GEOFF Education Provided this Outreach: No Adriel Vides RN November 23, 2023 1:34 PM documented in this encounterCity Hospital05-06-2024 Telephone encounter Note * Telephone Encounter - Karla Campuzano APRN.CNP - 11/21/2023 8:38 AM EDT The following approved medication requests have been transmitted electronically. Requested Prescriptions Pending Prescriptions Disp Refills ramipril (ALTACE) 10 mg capsule 90 capsule 3 Sig: Take 1 capsule by mouth once daily. Karla Campuzano APRN.CNP [facility] Miscellaneous Notes* Telephone Encounter - Karla Campuzano APRN.CNP - 11/21/2023 8:38 AM EDT The following approved medication requests have been transmitted electronically. Requested Prescriptions Pending Prescriptions Disp Refills ramipril (ALTACE) 10 mg capsule 90 capsule 3 Sig: Take 1 capsule by mouth once daily. Karla Campuzano APRN.CNP * Telephone Encounter - Malu Brower OCCA - 11/21/2023 8:36 AM EDT RAYO 10/07/2023 NOV 01/16/2024 Please review and advise. Thank you. TOM Graham * Telephone Encounter - Samaria Madison - 11/21/2023 8:15 AM EDT Pharmacy verified in [facility] Patient has been identified by name and date of : Yes Patient aware RX will be sent to pharmacy. No need to notify patient. Patient phones for refill(s): Requested Prescriptions Pending Prescriptions Disp Refills ramipril (ALTACE) 10 mg capsule 90 capsule 3 Sig: Take 1 capsule by mouth once daily. Date of last office visit : Visit date not found Date of next office visit : Visit date not found Last 2 Encounter Wt Readings: Date: Wt: 10/07/2023 91.2 kg (201 lb) 07/08/2023 91.6 kg (202 lb) Not applicable Please advise. Samaria Santiago documented in this encounterCity Hospital05-06-2024 Telephone encounter Note * Telephone Encounter - Malu Brower OCCA - 11/21/2023 8:36 AM EDT RAYO 10/07/2023 NOV 01/16/2024 Please review and advise. Thank you. TOM Graham [facility] Telephone encounter Note* Telephone Encounter - Samaria Madison - 11/21/2023 8:15 AM EDT Pharmacy verified in [facility] Patient has been identified by name and date of : Yes Patient aware RX will be sent to pharmacy. No need to notify patient. Patient phones for refill(s): Requested Prescriptions Pending Prescriptions Disp Refills ramipril (ALTACE) 10 mg capsule 90 capsule 3 Sig: Take 1 capsule by mouth once daily. Date of last office visit : Visit date not found Date of next office visit : Visit date not found Last 2 Encounter Wt Readings: Date: Wt: 10/07/2023 91.2 kg (201 lb) 07/08/2023 91.6 kg (202 lb) Not applicable Please advise. Samaria Martins [facility] History of Present illness Narrative* Adriel Vides RN - 10/24/2023 3:48 PM EDT CDM Telephonic Outreach Provider Action/FYI Doing well PCC outreach to follow up 1 episode of bleeding after bowel movement Denies any further bleeding He attributes this to eating raw vegetables Patient with history of diverticular disease Advised if persistent bleeding, abdominal pain, nausea/vomiting, diarrhea, fever chills needs to goto ED No additional concerns- Answered patient's questions regarding blood work orders Contacted for: Routine Telephonic Outreach Contact made with patient: Yes Patient identified by name and date of . Discussed care with patient Are you experiencing any new or worsening symptoms you need to talk about today? No Based on children's attendant, the following disposition is advised: No symptoms or symptoms present, not severe. Routed to: No Action Needed GEOFF Education Provided this Outreach: Isis Vides RN October 24, 2023 4:04 PM documented in this encounterCity Hospital03-22-2024 Instructions* Patient Instructions* Karla Campuzano APRN.CNP - 10/07/2023 10:19 AM EDT If symptoms do not improve or get worse start prednisone and zpack Continue to take all medication as prescribed. Keep scheduled appointments with specialists. Get repeat fasting labs in 6 months. Follow up in 3 months or sooner as needed. documented in this encounterCity Hospital03-22-2024 History of Present illness Narrative* Karla Campuzano APRN.CNP - 10/07/2023 10:00 AM EDT This is a 88 year old male who presents today with: Patient presents with: Follow Up: 3 month follow up HISTORY OF PRESENT ILLNESS: Paco Whitney is a 88 year old male. Patient presents with: Follow Up: 3 month follow up 3 month follow up GERD: Taking Protonix 40 mg daily, symptoms well controlled. HTN: Taking ramipril 10 mg daily. Not currently checking blood pressure at home. Has had ongoing dizziness in the past, uses meclizine as needed. Stress test was completed in November 2022. AAA: Following with vascular medicine, Dr. Nolne. Had follow up with Dr. Sultana (surgeon), had an US yesterday. CT completed and aneurysm has increased in size to 5.5 cm. Had stent placement. Us showed patent graft. Lipid: Watching diet, difficulty exercising due to pain and neuropathy. Taking Lofibra 160 mg daily. Chronic neuropathy: Using cane for ambulation. Taking gabapentin 300 mg 3 times daily and Tylenol as needed. 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 Taking aspirin 81 mg daily. Will apply diabetic foot cream to feet as needed for pain. COPD: Taking Symbicort twice daily, albuterol and nebulizer as needed. Follows with pulmonology every 6 months. Refers that he has had some sob. Notices worsening sympotoms with seasonal changes. Hadcovid in the fall. Refers that he has been having productive cough with green mucus and wheezing for the past week. No fever. Chronic shoulder pain: Following with orthopedics. Has had injections in the past. 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 Romeo RPR RETINAL DTCHMNT DRG SUBRETINAL FLUID PC 2003 Laser repair retinal detach, right eye TONSILLECTOMY PRIMARY/SECONDARY <AGE 14 Tonsillectomy VASECTOMY UNI/BI SPX W/POSTOP SEMEN EXAMS 1964 ALLERGIES Demerol [Meperidine (Pf)], Baycol, Contrast Dye [Iodine], and Lopid [Gemfibrozil] MEDICATIONS Current Outpatient Medications Medication Sig tamsulosin (FLOMAX) 0.4 mg TAKE ONE CAPSULE BY MOUTH ONCE DAILY AT BEDTIME pantoprazole DR (PROTONIX) 40 mg tablet Take 1 tablet by mouth daily before breakfast. Take on empty stomach, 1/2 hr before meal. upclbpyr-zfafmadyf-tpolpqslljidbh (CORTISPORIN) 3.5-10,000-1 mg/mL-unit/mL-% otic suspension Use 4 Drops in the ears four times daily. x 1 week clotrimazole-betamethasone (LOTRISONE) cream Apply 1 application to affected area two times a day. As needed gabapentin (NEURONTIN) 300 mg capsule Take 1 capsule by mouth three times a day for 180 days. meclizine (ANTIVERT) 25 mg tab Take 1 tablet by mouth every 6 hours as needed. FOR DIZZINESS budesonide-formoterol (SYMBICORT) 160-4.5 mcg/actuation inhaler Inhale 2 Puffs as instructed two times a day. Fenofibrate (LOFIBRA) 160 mg tablet Take 1 tablet by mouth once daily. albuterol HFA (VENTOLIN HFA) 90 mcg/actuation inhaler Inhale 2 Puffs as instructed every 4 hours asneeded for wheezing/shortness of breath. guaiFENesin (MUCINEX) 600 mg 12 hr tablet Take 2 tablets by mouth twice daily. As needed acetaminophen (TYLENOL) 500 mg tablet Take 2 tablets by mouth every 6 hours. ramipril (ALTACE) 10 mg capsule Take 1 capsule by mouth once daily. cholecalciferol (VITAMIN D3) 1,000 unit tab tablet Cholecalciferol (Vit D3) Active 3000 UNIT TWICE A DAY November 23, 2014 8:06am aspirin 81 mg cap Take 1 capsule by mouth once daily. No current facility-administered medications for this visit. FAMILY HISTORY Problem Relation Age of Onset Hypertension Mother other (Parkinsons disease) Mother Heart Father Heart Brother Heart surgery Cancer Brother of liver. Diabetes Brother Heart disease Son No Family History No Family History No COPD, lung cancer. Social History Tobacco Use Smoking status: Former Packs/day: 2.00 Years: 32.00 Additional pack years: 0.00 Total pack years: 64.00 Types: Cigarettes Start date: 1959 Quit date: 10/30/1990 Years since quittin.9 Smokeless tobacco: Never Tobacco comments: Multiple 4-5 year quits during smoking career. Vaping Use Vaping Use: Never used Substance Use Topics Alcohol use: No Drug use: No REVIEW OF SYSTEMS GENERAL: No weight loss, malaise or fevers/chills HEENT: Negative for frequent or significant headaches, No changes in hearing or vision. NECK: Negative for lumps, goiter, pain and significant neck swelling RESPIRATORY: + Cough and SOB CARDIOVASCULAR: Negative for chest pain, leg swelling, orthopnea, or palpitations GI: No nausea, vomiting, or diarrhea/constipation. No hematochezia/melena. No heartburn or reflux symptoms. : No history of dysuria, frequency or incontinence MUSCULOSKELETAL: Negative for joint pain or swelling. SKIN: Negative for lesions, rash, and itching ENDOCRINE: Negative for cold or heat intolerance, polyuria, polydipsia and goiter NEURO: No history of headaches, syncope, paralysis, seizures or tremors MOOD: Negative for depression, anxiety, or suicidal ideation. EXAM: BP 126/72 Pulse 64 Resp 16 Wt 91.2 kg (201 lb) SpO2 95% BMI 28.84 kg/m PHYSICAL EXAM: General Appearance: Well appearing, alert, in no acute distress, well-hydrated, well nourished. Skin: Skin color, texture, turgor normal, no suspicious rashes or lesions. Head: Normocephalic, no masses, lesions, tenderness or abnormalities. Eyes: Anicteric sclera. Extraocular movements are intact. Ears: External ears normal, canals clear. TMs pearly rodrigues. Neck: Supple, no adenopathy; thyroid symmetric, normal size, no bruits. Lungs: Cough Scant wheezing noted. Heart: RRR without murmur, gallop, or rubs. No ectopy. Extremities: No deformities, edema, skin discoloration, clubbing or cyanosis. Good capillary refill. Peripheral Pulses: Normal, Capillary refill <2secs, strong peripheral pulses, Pulses palpable. Neurologic: Gait normal. Sensation grossly intact. Latest Ref Rn 07/29/2023 Protein, Total 6.3 - 8.0 g/dL 6.8 Albumin 3.9 - 4.9 g/dL 4.2 Calcium 8.5 - 10.2 mg/dL 10.3 (H) Bilirubin, Total 0.2 - 1.3 mg/dL 0.7 Alkaline Phosphatase 38 - 113 U/L 73 AST 14 - 40 U/L 26 ALT 10 - 54 U/L 18 Glucose 74 - 99 mg/dL 91 BUN 9 - 24 mg/dL 27 (H) Creatinine 0.73 - 1.22 mg/dL 1.21 Sodium 136 - 144 mmol/L 141 Potassium 3.7 - 5.1 mmol/L 4.7 Chloride 97 - 105 mmol/L 105 CO2 22 - 30 mmol/L 25 Anion Gap 9 - 18 mmol/L 11 eGFR >=60 mL/min/1.73m 58 (L) Cholesterol, Total <200 mg/dL 170 Triglyceride <150 mg/dL 215 (H) HDL Cholesterol >39 mg/dL 33 (L) Non HDL Cholesterol <130 mg/dL 137 (H) Fasting Time hrs 12 VLDL Cholesterol <30 mg/dL 43 (H) TC:HDL Ratio <5.10 5.15 (H) LDL Cholesterol <100 mg/dL 94 LDL:HDL Ratio <2.54 2.85 (H) Legend: (H) High (L) Low ASSESSMENT/PLAN: 1. Bronchitis - ICD9: 490, ICD10: J40 (primary diagnosis) - Due to COPD history will treat for bronchitis. - Start Zpack and Prednisone burst - AZITHROMYCIN 250 MG TABLET - PREDNISONE 20 MG TABLET 2. GERD without esophagitis - ICD9: 530.81, ICD10: K21.9 - Stable, continue with current medication. 3. Essential hypertension, benign - ICD9: 401.1, ICD10: I10 - Controlled - Continue current medications - Recommend home blood pressure monitoring, to bring results to next visit - Encouraged sodium restriction, DASH or Mediterranean diet - Recommend regular aerobic exercise 4. Abdominal aortic aneurysm (AAA) without rupture, unspecified part (HCC) - ICD9: 441.4, ICD10: I71.40 - Stable, Keep scheduled appointments with Vascular Medicine 5. Hyperlipidemia, unspecified hyperlipidemia type - ICD9: 272.4, ICD10: E78.5 - Uncontrolled - Continue current medications - Counseled on healthy diet and regular exercise - Get repeat fasting labs in 6 months. - COMP METABOLIC PANEL - LIPID PANEL BASIC 6. Neuropathy - ICD9: 355.9, ICD10: G62.9 - Stable 7. Chronic obstructive pulmonary disease, unspecified COPD type (HCC) - ICD9: 496, ICD10: J44.9 - Stable, continue take current medication. - Scheduled appointments with pulmonology. 8. Acute pain of both shoulders - ICD9: 719.41, ICD10: M25.511, M25.512 - Stable Follow-up in 3 months or sooner as needed. Discussed treatment plan and patient voices understanding. Patient's questions answered appropriately. Medications and potential side effects were discussed and patient voices understanding. Karla Campuzano APRN.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 This note was partially generated using [employer] voice recognition system. Note was reviewed for accuracy. There may be minor misspellings or grammar miscues with [employer] voice recognition. documented in this encounterCity Hospital03-18-2024 Miscellaneous Notes* Telephone Encounter - Sid Frank APRN.CNP - 10/03/2023 10:14 AM EDT The following approved medication requests have been transmitted electronically. Requested Prescriptions Pending Prescriptions Disp Refills tamsulosin (FLOMAX) 0.4 mg 90 capsule 3 Sig: TAKE ONE CAPSULE BY MOUTH ONCE DAILY AT BEDTIME Sid Frank APRN.CNP * Telephone Encounter - Indy Khanna - 10/03/2023 9:07 AM EDT Patient has been identified by name and date of : Yes, Provider [facility] Patient phones for refill(s): Requested Prescriptions Pending Prescriptions Disp Refills tamsulosin (FLOMAX) 0.4 mg 90 capsule 3 Sig: TAKE ONE CAPSULE BY MOUTH ONCE DAILY AT BEDTIME Date of last office visit in primary care: 07/08/2023 Date of next office visit in primary care: 10/07/2023 Please advise. Thank you. Indy Santiago. documented in this encounterCity Hospital02-28-2024 History of Present illness Narrative* Adriel Vides, RUBEN - 09/14/2023 9:01 AM EST CDM Telephonic Outreach Provider Action/FYI HTN/COPD Had stenting of AAA. Completed aorta ultrasound 09/07 asking about results Discussed results - patient asking size of aneurysm - Offered to forward to Dr. Pablo to contact patient to discuss. Patient declines states he has follow up with PCP 10/06. Plans to discuss at that time if he has notheard from surgeon. Advised most likely anything concerning they would have contacted patient. Feels good, B/P 137/69- taken while on the phone with PCC. COPD-baseline Reports does not miss any medication. Occasionally has some vertigo/dizziness he attributes to problems with his ears. Advised if continues or increasing frequency follow up with PCP/application security engineer. Very nice gentlemen! Contacted for: Routine Telephonic Outreach Contact made with patient: Yes Patient identified by name and date of . Discussed care with patient Are you experiencing any new or worsening symptoms you need to talk about today? No Disease Specific Do you check your blood pressure at home? Yes, Enter readings: 137/69 Do you have new or worsening shortness of breath with activity? No Do you have new or worsening cough? No Do you have new or worsening wheezing? No Do you need to use your rescue (Albuterol) inhaler or nebulizer more often than normal? No Based on children's attendant, the following disposition is advised: No symptoms or symptoms present, not severe. Routed to: No Action Needed GEOFF Education Provided this Outreach: No Adriel Vides RN September 14, 2023 10:47 AM documented in this encounterCity Hospital12-18-2023 History of Present illness Narrative* Samaria Lazcano PA-C - 07/04/2023 11:02 AM EST Images from the original note were not included. Patient: Paco Whitney PCP: Clarice Murillo MD CC: follow up HPI: Paco Whitney 88 year old male former 60 pack year smoker, quitting 1990 with PMH significant for clinical obstructive lung disease (PFTs normal) with CB, GERD, HTN, and lung nodules. Known renal nodules and RLL mass previously evaluated by biopsy in 2014, negative for malignancy. Serial follow-up chest CT images have shown stability, consistent with possible rounded atelectasis. Tested positive for Covid in April, did not require hospitalization. Current maintenance therapy with Symbicort and as needed Albuterol. Today, patient reports occasional cough productive of phlegm. States it is not clear, but stable. No hemoptysis. Variable wheezing. Is not limited by SOB, however, he is limited by knee and hip pain. Lower extremity edema, stable. 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 Lopid [Gemfibrozil] Other: See Comments Comment:Myalgia. npdzyvqt-ommdifdhw-cmjuqcufuelwum (CORTISPORIN) 3.5-10,000-1 mg/mL-unit/mL-% otic suspension Use 4 Drops in the ears four times daily. x 1 week clotrimazole-betamethasone (LOTRISONE) cream Apply 1 application to affected area two times a day. As needed Fenofibrate (LOFIBRA) 160 mg tablet Take 1 tablet by mouth once daily. albuterol HFA (VENTOLIN HFA) 90 mcg/actuation inhaler Inhale 2 Puffs as instructed every 4 hours asneeded for wheezing/shortness of breath. guaiFENesin (MUCINEX) 600 mg 12 hr tablet Take 2 tablets by mouth twice daily. As needed acetaminophen (TYLENOL) 500 mg tablet Take 2 tablets by mouth every 6 hours. gabapentin (NEURONTIN) 300 mg capsule Take 1 capsule by mouth three times daily for 180 days. ramipril (ALTACE) 10 mg capsule Take 1 capsule by mouth once daily. cholecalciferol (VITAMIN D3) 1,000 unit tab tablet Cholecalciferol (Vit D3) Active 3000 UNIT TWICE A DAY November 23, 2014 8:06am tamsulosin (FLOMAX) 0.4 mg TAKE ONE CAPSULE BY MOUTH ONCE DAILY AT BEDTIME pantoprazole DR (PROTONIX) 40 mg tablet Take 1 tablet by mouth daily before breakfast. Take on empty stomach, 1/2 hr before meal. budesonide-formoterol (SYMBICORT) 160-4.5 mcg/actuation inhaler Inhale 2 Puffs as instructed twice daily. meclizine (ANTIVERT) 25 mg tab Take 1 tablet by mouth every 6 hours as needed. FOR DIZZINESS aspirin 81 mg cap Take 1 capsule by mouth once daily. Social History Tobacco Use Smoking status: Former Packs/day: 2.00 Years: 32.00 Additional pack years: 0.00 Total pack years: 64.00 Types: Cigarettes Start date: 1959 Quit date: 10/30/1990 Years since quittin.6 Smokeless tobacco: Never Tobacco comments: Multiple 4-5 year quits during smoking career. Vaping Use Vaping Use: Never used Substance Use Topics Alcohol use: No Drug use: No Family History Problem Relation Age of Onset Hypertension Mother other (Parkinsons disease) Mother Heart Father Heart Brother Heart surgery Cancer Brother of liver. Diabetes Brother Heart disease Son No Family History No Family History No COPD, lung cancer. PAST SURGICAL HISTORY Procedure Laterality Date ARTHRP KNE CONDYLE&PLATU MEDIAL&LAT COMPARTMENTS 2002 Knee replacement, total, left CHOLECYSTECTOMY 2005 Cholecystectomy COLONOSCOPY 04/11/06 COLONOSCOPY 12/16/14 widespread diverticulosis,Repeat 2024 COLONOSCOPY FLX DX W/COLLJ SPEC WHEN PFRMD 09/19/2011 Colonoscopy inpt [facility] HERNIA REPAIR HX 04/03/13 PAST SURGICAL HISTORY OF 1971 Back Surgery PAST SURGICAL HISTORY OF 11/15/2016 Colonoscopy, Dr. Romeo RPR RETINAL DTCHMNT DRG SUBRETINAL FLUID PC 2003 Laser repair retinal detach, right eye TONSILLECTOMY PRIMARY/SECONDARY <AGE 14 Tonsillectomy VASECTOMY UNI/BI SPX W/POSTOP SEMEN EXAMS 1964 I reviewed the past medical history, family history, social history and surgical history with changes noted above and updated in EMR. IMMUNIZATIONS Prevnar 13 - 2014 Pneumovax 23 - 2005 Influenza - xx COVID-19 - most recent 05/2021 ROS: General: No fevers, chills or night sweats. No unintended weight loss. Appetite good. Eyes, Ears, nose, throat: No post nasal drip, sinus congestion. No hoarseness. Vision stable. Cardiac: No angina, orthopnea, chest pain or palpitations. Resp: See HPI. GI: No heartburn, dysphagia. Musculoskeletal: Peripheral neuropathy. Neuro: No headache, focal weakness, tremor. Skin: No new skin changes or rash. Otherwise negative. PHYSICAL EXAMINATION: BP (P) 124/70 Pulse (P) 74 Resp (P) 16 Wt 90.3 kg (199 lb) SpO2 (P) 95% BMI 28.55 kg/m Gen: No acute distress. Cooperative with examination. HEENT: Normocephalic. Sclera, conjunctiva clear. Oral hygeine and dentition poor. No thrush. Resp: No stridor, accessory respiratory muscle use, supra-sternal or intercostal retractions. No wheezes, crackles. CV: Regular rythm. Heart tones normal. Radial pulses normal. MSK: No kyphoscoliosis. Ext: Warm and well perfused. No clubbing, cyanosis. Trace bilateral edema. Skin: No rash, ecchymoses. Neuro: Mental status normal. Affect normal. No tremor. DATA: PFT, 07/06/2022 CT chest, 07/08/2022 IMPRESSION: Again seen is reticulation within the periphery of the lungs and lower lobes, bilaterally, suggesting interstitial disease. Stable nodular density within the right lung base, measuring approximately 3.2 x 2.7 cm. Additionally, there are stable subcentimeter pulmonary nodules. Emphysema with mild, diffuse bronchiectasis. Stable prominent, less than 1 cm mediastinal and bilateral hilar lymph nodes, likely reactive. Dilated main pulmonary artery, measuring approximately 3.2 cm, which can be seen with pulmonary arterial hypertension. Comparison: Chest radiograph dated 05/19/2022. Prior chest CT dated 06/26/2018. RESULT: Limitations: None. Lines, tubes, and devices: None. Lung parenchyma and airways: Again seen is reticulation within the periphery of the lungs and lower lobes, bilaterally, suggesting interstitial disease. There is emphysema with mild, diffuse bronchiectasis. Stable, approximately 3.3 x 2.5 cm nodular density is seen within the right lung base (series 5, image #158). Additionally, there are stable subcentimeter pulmonary nodules. For example, there is a stable, approximately 6 mm nodule seen within the right lower lobe (series 5, image #126). There is a stable, approximately 4 mm nodule within left lower lobe (series 5, image #122). Other pulmonary nodules are also stable. There is no new pulmonary nodule. There is no pneumothorax or endobronchial lesion. A calcified granuloma is again seen within the right lower lobe (series 5, image #158). Pleural space: There is no pleural effusion. Lower neck, lymph nodes, and mediastinum: There are stable prominent, less than 1 cm mediastinal and bilateral hilar lymph nodes, likely reactive. No vero axillary lymphadenopathy is identified. Heart, pericardium, and thoracic vessels: Atherosclerotic calcifications are present within the thoracic aorta and coronary arteries. The heart is normal in size. There is no significant pericardial effusion. The main pulmonary is dilated, measuring approximately 3.2 cm, can be seen with pulmonary arterial hypertension. Bones and soft tissues: There is scoliosis, osteopenia, and multilevel degenerative change seen within the thoracic spine. There is bilateral shoulder DJD. Vacuum disc phenomena is seen at multiple levels. Upper abdomen: There are left renal parapelvic cysts. Cortical cyst seen within upper pole of the left kidney. Other left renal cysts are also seen, which have dependent calcification, suggesting milk of calcium. Nonspecific wall thickening of the stomach likely relates to underdistention. There are prominent, less than 1 cm abdominal lymph nodes, likely reactive. There is colonic diverticulosis. ASSESSMENT/PLAN: 1. 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 Patient states he is getting annual influenza vaccine at PCP office on 07/08 - BUDESONIDE-FORMOTEROL HFA 160 MCG-4.5 MCG/ACTUATION AEROSOL INHALER 2. Lung nodules - ICD9: 793.19, ICD10: R91.8 Stable. Greater then 2 years stability documented and no further imaging required. 3. Former cigarette smoker - ICD9: V15.82, ICD10: Z87.891 Former [id number] smoking having quit in 1990 without sequelae of significant COPD or emphysema. Continue abstinence. Does not qualify for lung cancer screening with LDCT based on age and duration of cessation. Portions of this documentation were copied and pasted from previous office visit notes in order to provide a cohesive continuity of the history. The note has been reviewed and edited and updated as necessary. Samaria Lazcano PA-C documented in this encounterCity [facility]11-15-2023 History of Present illness Narrative* Adriel Vides RN - 06/01/2023 9:22 AM EST [facility] Telephonic Outreach Provider Action/FYI Doing well COPD at baseline In process of moving to a larger apartment. Contacted for: Routine Telephonic Outreach Contact made with patient: Yes Patient identified by name and date of . Discussed care with patient Are you experiencing any new or worsening symptoms you need to talk about today? No Disease Specific Do you check your blood pressure at home? No Do you have new or worsening shortness of breath with activity? No Do you have new or worsening cough? No Do you have new or worsening wheezing? No Do you need to use your rescue (Albuterol) inhaler or nebulizer more often than normal? No Based on children's attendant, the following disposition is advised: No symptoms or symptoms present, not severe. Routed to: No Action Needed GEOFF Education Provided this Outreach: No Adriel Vides RN June 03, 2023 1:36 PM documented in this encounterCity Hospital10-27-2023 Miscellaneous Notes* Telephone Encounter - Clarice Murillo MD - 05/13/2023 11:52 AM EDT OK to refill as ordered Clarice Murillo MD * Telephone Encounter - Tata Perry - 05/13/2023 9:53 AM EDT RAYO:03/14/23 NOV:06/15/23 * Telephone Encounter - Johanna Uribe - 05/13/2023 9:36 AM EDT Patient has been identified by name and date of : Yes Requested Prescriptions Pending Prescriptions Disp Refills Fenofibrate (LOFIBRA) 160 mg tablet 30 tablet 11 Sig: Take 1 tablet by mouth once daily. RX INSTRUCTIONS: Patient aware RX will be sent to pharmacy. No need to notify patient. Johanna Uribe documented in this encounterCity Hospital10-16-2023 History of Present illness Narrative* Adriel Vides RN - 05/02/2023 9:10 AM EDT [facility] Telephonic Outreach Provider Alaina/KOFFI Contacted for: Routine Telephonic Outreach Contact made with patient: No, left message. Adriel Vides RN May 02, 2023 4:25 PM documented in this encounterCity Hospital09-12-2023 History of Present illness Narrative* Adriel Vides RN - 03/29/2023 9:43 AM EDT [facility] Telephonic Outreach Provider Alaina/IHSANI Patient states doing well today States he had some issues after having his CT done on 03/04. Did not feel well, fatigued and no appetite States urine was orange. Discussed importance of drinking a lot of water after test to help eliminate the dye from system. States urine cleared up the next day. COPD at baseline- using his Symbicort as directed. Asthma/COPD/HTN Has quite a few nurses in family, dtr is PA Concerned about and her memory issues Recently underwent some cognitive testing. Will have some further imaging done. B/P at goal Contacted for: Routine Telephonic Outreach Contact made with patient: Yes Patient identified by name and date of . Discussed care with patient Are you experiencing any new or worsening symptoms you need to talk about today? No Disease Specific Do you check your blood pressure at home? No Do you have new or worsening shortness of breath with activity? No Do you have new or worsening cough? No Do you have new or worsening wheezing? No Do you need to use your rescue (Albuterol) inhaler or nebulizer more often than normal? No Based on children's attendant, the following disposition is advised: No symptoms or symptoms present, not severe. Routed to: No Action Needed GEOFF Education Provided this Outreach: No Adriel Vides RN March 30, 2023 1:44 PM documented in this encounterCity Hospital08-28-2023 Instructions* Patient Instructions* Karla Campuzano APRN.SARAI - 03/14/2023 1:28 PM EDT Start Prednisone 20 mg daily for 5 days. Start Doxycycline take 2 times daily with food. Follow up with Pulmonology Continue to take all medication as prescribed . Recommend considering an allergy medication in future if needed. Claritin or a zyrtec. Follow up 3 months or sooner as needed. documented in this encounterCity Hospital08-28-2023 History of Present illness Narrative* Karla Campuzano APRN.SARAI - 03/14/2023 1:20 PM EDT This is a 87 year old male who presents today with: Patient presents with: Follow Up: 3 month follow up HISTORY OF PRESENT ILLNESS: Paco Whitney is a 87 year old male. Patient presents with: Follow Up: 3 month follow up 3 month follow up GERD: Taking Protonix 40 mg daily, symptoms well controlled. HTN: Taking ramipril 10 mg daily. Not currently checking blood pressure at home. Has had ongoing dizziness in the past, uses meclizine as needed. Stress test was completed in November 2022. AAA: Following with vascular medicine, Dr. Nolen. CT completed and aneurysm has increased in size to 5.5 cm. Had stent placement. Lipid: Watching diet, difficulty exercising due to pain and neuropathy. Taking Lofibra 160 mg daily. Chronic neuropathy: Using cane for ambulation. Taking gabapentin 300 mg 3 times daily and Tylenol as needed. 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 Taking aspirin 81 mg daily. Will apply diabetic foot cream to feet as needed for pain. COPD: Taking Symbicort twice daily, albuterol and nebulizer as needed. Follows with pulmonology every 6 months. Refers that he has had some sob. Notices worsening sympotoms with seasonal changes. Coughing up yellow green mucus. Chronic shoulder pain: Following with orthopedics. Has had injections in the past. 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 Romeo RPR RETINAL DTCHMNT DRG SUBRETINAL FLUID PC 2003 Laser repair retinal detach, right eye TONSILLECTOMY PRIMARY/SECONDARY <AGE 14 Tonsillectomy VASECTOMY UNI/BI SPX W/POSTOP SEMEN EXAMS 1963 ALLERGIES Demerol [Meperidine (Pf)], Baycol, Contrast Dye [Iodine], and Lopid [Gemfibrozil] MEDICATIONS Current Outpatient Medications Medication Sig clotrimazole-betamethasone (LOTRISONE) cream Apply 1 application to affected area twice daily. As needed guaiFENesin (MUCINEX) 600 mg 12 hr tablet Take 2 tablets by mouth twice daily. As needed acetaminophen (TYLENOL) 500 mg tablet Take 2 tablets by mouth every 6 hours. gabapentin (NEURONTIN) 300 mg capsule Take 1 capsule by mouth three times daily for 180 days. ramipril (ALTACE) 10 mg capsule Take 1 capsule by mouth once daily. cholecalciferol (VITAMIN D3) 1,000 unit tab tablet Cholecalciferol (Vit D3) Active 3000 UNIT TWICE A DAY November 23, 2014 8:06am tamsulosin (FLOMAX) 0.4 mg TAKE ONE CAPSULE BY MOUTH ONCE DAILY AT BEDTIME pantoprazole DR (PROTONIX) 40 mg tablet Take 1 tablet by mouth daily before breakfast. Take on empty stomach, 1/2 hr before meal. budesonide-formoterol (SYMBICORT) 160-4.5 mcg/actuation inhaler Inhale 2 Puffs as instructed twice daily. Fenofibrate (LOFIBRA) 160 mg tablet Take 1 tablet by mouth once daily. meclizine (ANTIVERT) 25 mg tab Take 1 tablet by mouth every 6 hours as needed. FOR DIZZINESS aspirin 81 mg cap Take 1 capsule by mouth once daily. sqetmpas-mmpaivzmu-bhjlkttfircdhp (CORTISPORIN) 3.5-10,000-1 mg/mL-unit/mL-% otic suspension Use 4 Drops in the ears four times daily. x 1 week albuterol HFA (VENTOLIN HFA) 90 mcg/actuation inhaler Inhale 2 Puffs as instructed every 4 hours asneeded for Wheezing/Shortness of Breath. No current facility-administered medications for this visit. FAMILY HISTORY Problem Relation Age of Onset Hypertension Mother other (Parkinsons disease) Mother Heart Father Heart Brother Heart surgery Cancer Brother of liver. Diabetes Brother Heart disease Son No Family History No Family History No COPD, lung cancer. Social History Tobacco Use Smoking status: Former Packs/day: 2.00 Years: 32.00 Additional pack years: 0.00 Total pack years: 64.00 Types: Cigarettes Start date: 1957 Quit date: 10/30/1990 Years since quittin.3 Smokeless tobacco: Never Tobacco comments: Multiple 4-5 year quits during smoking career. Vaping Use Vaping Use: Never used Substance Use Topics Alcohol use: No Drug use: No REVIEW OF SYSTEMS GENERAL: No weight loss, malaise or fevers/chills HEENT: Negative for frequent or significant headaches, No changes in hearing or vision. NECK: Negative for lumps, goiter, pain and significant neck swelling RESPIRATORY: + Cough CARDIOVASCULAR: Negative for chest pain, leg swelling, orthopnea, or palpitations GI: No nausea, vomiting, or diarrhea/constipation. No hematochezia/melena. No heartburn or reflux symptoms. : No history of dysuria, frequency or incontinence MUSCULOSKELETAL: Negative for joint pain or swelling. SKIN: Negative for lesions, rash, and itching ENDOCRINE: Negative for cold or heat intolerance, polyuria, polydipsia and goiter NEURO: No history of headaches, syncope, paralysis, seizures or tremors MOOD: Negative for depression, anxiety, or suicidal ideation. EXAM: BP 102/78 Pulse (!) 51 Resp 16 Wt 91.2 kg (201 lb) SpO2 94% BMI 28.84 kg/m PHYSICAL EXAM: General Appearance: Well appearing, alert, in no acute distress, well-hydrated, well nourished.. Skin: Skin color, texture, turgor normal, no suspicious rashes or lesions. Head: Normocephalic, no masses, lesions, tenderness or abnormalities. Eyes: Anicteric sclera. Pupils are equally round and reactive to light. Extraocular movements are intact. . Ears: External ears normal, canals clear. Neck: Supple, no adenopathy; thyroid symmetric, normal size, no bruits. Lungs: + Wheezing Heart: RRR without murmur, gallop, or rubs. No ectopy. Extremities: No deformities, edema, skin discoloration, clubbing or cyanosis. Good capillary refill. . Peripheral Pulses: Normal, Capillary refill <2secs, strong peripheral pulses, Pulses palpable. Neurologic: Gait normal. Reflexes normal and symmetric. Sensation grossly intact.. ASSESSMENT/PLAN: 1. COPD with exacerbation (HCC) - ICD9: 491.21, ICD10: J44.1 (primary diagnosis) - Start disown 20 mg daily for 5 days. Start doxycycline. - Continue to take Symbicort as prescribed. - Discussed adding on an antihistamine in the future, patient denies wanting to start at this time. - Instructed to follow-up with pulmonology. - PREDNISONE 20 MG TABLET - DOXYCYCLINE HYCLATE 100 MG TABLET 2. Essential hypertension, benign - ICD9: 401.1, ICD10: I10 - Controlled - Continue current medications - Recommend home blood pressure monitoring, to bring results to next visit - Encouraged sodium restriction, DASH or Mediterranean diet 3. Hyperlipidemia, unspecified hyperlipidemia type - ICD9: 272.4, ICD10: E78.5 - Control undetermined, due for labs - Continue current medications - Counseled on healthy diet and regular exercise 4. Abdominal aortic aneurysm (AAA) without rupture, unspecified part (HCC) - ICD9: 441.4, ICD10: I71.40 - Stable, keep scheduled appointments with vascular medicine. 5. GERD without esophagitis - ICD9: 530.81, ICD10: K21.9 -Stable, continue to take Protonix. 6. Acute pain of both shoulders - ICD9: 719.41, ICD10: M25.511, M25.512 - Stable, follow up with Orthopedics as needed. 7. Neuropathy - ICD9: 355.9, ICD10: G62.9 - Stable, continue to take Gabapentin. Follow-up in 3 months or sooner as needed. Discussed treatment plan and patient voices understanding. Patient's questions answered appropriately. Medications and potential side effects were discussed and patient voices understanding. Karla Campuzano APRN.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 This note was partially generated using [employer] voice recognition system. Note was reviewed for accuracy. There may be minor misspellings or grammar miscues with [employer] voice recognition. documented in this encounterCity Hospital08-22-2023 History of Present illness Narrative* Ibeth Paredes APRN.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 - 03/08/2023 11:00 AM EDT Images from the original note were not included. [facility] [place] DEPARTMENT OF VASCULAR SURGERY OUTPATIENT VISIT DATE March 08, 2023 OUTPATIENT VISIT TYPE ESTABLISHED SERVICE DATE: 03/08/2023 SERVICE TIME: 9:01 AM PRIMARY CARE PHYSICIAN: Clarice Murillo MD HISTORY OF PRESENT ILLNESS: Paco Whitney is a 87 year old male with past medical/surgical history of HTN, HLD, PAD s/p left TKA (2002), prior TIA, asthma/COPD, former smoker (quit 1990), GERD, BPH, recently underwent EVAR for a 5.5 cm asymptomatic AAA by Dr. Pablo.Pt reports feeling well, grointenderness has resolved. Notes some blood pressure problems and is seeing his PCP. Denies back, abdominal or shoulder pain, denies CP or palpitations, claudication. Endorses SOB that is chronic d/tCOPD. Ambulates with rollaider, accompanied by . 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 Romeo RPR RETINAL DTCHMNT DRG SUBRETINAL FLUID PC 2003 Laser repair retinal detach, right eye TONSILLECTOMY PRIMARY/SECONDARY <AGE 14 Tonsillectomy VASECTOMY UNI/BI SPX W/POSTOP SEMEN EXAMS 1964 SOCIAL HISTORY Social History Tobacco Use Smoking status: Former Packs/day: 2.00 Years: 32.00 Additional pack years: 0.00 Total pack years: 64.00 Types: Cigarettes Start date: 1957 Quit date: 10/30/1990 Years since quittin.3 Smokeless tobacco: Never Tobacco comments: Multiple 4-5 year quits during smoking career. Vaping Use Vaping Use: Never used Substance Use Topics Alcohol use: No Drug use: No MEDICATIONS: clotrimazole-betamethasone (LOTRISONE) cream Apply 1 application to affected area twice daily. As needed guaiFENesin (MUCINEX) 600 mg 12 hr tablet Take 2 tablets by mouth twice daily. As needed acetaminophen (TYLENOL) 500 mg tablet Take 2 tablets by mouth every 6 hours. gabapentin (NEURONTIN) 300 mg capsule Take 1 capsule by mouth three times daily for 180 days. ramipril (ALTACE) 10 mg capsule Take 1 capsule by mouth once daily. cholecalciferol (VITAMIN D3) 1,000 unit tab tablet Cholecalciferol (Vit D3) Active 3000 UNIT TWICE A DAY November 23, 2014 8:06am tamsulosin (FLOMAX) 0.4 mg TAKE ONE CAPSULE BY MOUTH ONCE DAILY AT BEDTIME pantoprazole DR (PROTONIX) 40 mg tablet Take 1 tablet by mouth daily before breakfast. Take on empty stomach, 1/2 hr before meal. budesonide-formoterol (SYMBICORT) 160-4.5 mcg/actuation inhaler Inhale 2 Puffs as instructed twice daily. Fenofibrate (LOFIBRA) 160 mg tablet Take 1 tablet by mouth once daily. meclizine (ANTIVERT) 25 mg tab Take 1 tablet by mouth every 6 hours as needed. FOR DIZZINESS aspirin 81 mg cap Take 1 capsule by mouth once daily. kuovoyoe-rbyrscqyh-lrmxwcvrtwyeph (CORTISPORIN) 3.5-10,000-1 mg/mL-unit/mL-% otic suspension Use 4 Drops in the ears four times daily. x 1 week albuterol HFA (VENTOLIN HFA) 90 mcg/actuation inhaler Inhale 2 Puffs as instructed every 4 hours asneeded for Wheezing/Shortness of Breath. ALLERGIES: ALLERGIES Allergen Reactions Demerol [Meperidine* Mental Status Change Gave too high of dose Baycol Other: See Comments Rhabdoymyolysis Contrast Dye [Iodin* Intolerance pt needs to be oral hydrated after injection,..patient STATES HE IS NOT ALLERGIC TO IV DYE.. Lopid [Gemfibrozil] Other: See Comments Myalgia. REVIEW OF SYSTEMS PAIN ASSESSMENT: Negative for pain, history of chronic pain, or current treatment for a chronic pain condition. GENERAL: No weight loss, malaise or fevers HEENT: Negative for frequent or significant headaches, No changes in hearing or vision, no nose bleeds or other nasal problems RESPIRATORY: See HPI CARDIOVASCULAR: Negative for chest pain, leg swelling, hypertension, CHF or palpitations GI: No nausea, vomiting, or diarrhea MUSCULOSKELETAL: Negative for joint pain or swelling, back pain or muscle pain SKIN: Negative for lesions, rash, and itching PHYSICAL EXAM: BP 132/80 Pulse 78 SpO2 97% General: Alert and oriented x3 Integumentary: Normal color, no rash, no lesions. HEENT: EOM, pupils equal, round and reactive. Cardiovascular: Normal S1 & S2, no rubs, murmurs or gallops. No JVD., Pulse regular. Lungs: Normal breath sounds, no wheezes or crackles. Abdomen: Soft, non-tender, no rigidity. Extremities: No deformity, no edema or tenderness, no joint swelling or clubbing. Bilateral catheter entry sites without bleeding or swelling Neurological: Normal cognition and motor skills. Vascular: LLE palpable PT, biphasic DP RLE palpable DP, biphasic PT Diagnostic tests reviewed for today's visit: 03/04/2023: CTA A&P: Interval endovascular repair of abdominal aortic aneurysm with patent aortobiiliac stents. No evidence of endoleak, stent fracture, or infection IMPRESSION: Mr. Whitney is a 87 year old male s/p EVAR with PERLA, stable. PLAN and RECOMMENDATIONS: S/P EVAR for AAA 5.5cm, HTN, HDL, PAD s/p Left TKA - Continue with ASA, Fenofibrate, Gabapentin, Meclizine, Protonix and flomax, additional home medications. - Continue with Heart heathy diet - Encourage physical activity as tolerated - Monitor Blood pressure at home - Follow up in 6mns with Aortic Duplex SIGNATURE: Ibeth Paredes APRN.CNP PATIENT NAME: Paco Whitney DATE: March 08, 2023 TIME: 9:01 AM documented in this encounterCity [facility]08-18-2023 History of Present illness Narrative* Suzie Hickman, RT(R) - 03/04/2023 1:00 PM EDT Radiology Service Progress Note DATE OF SERVICE: March 04, 2023 TIME: 1:38 PM PATIENT IDENTITY VERIFICATION COMPLETED USING TWO (2) STANDARD IDENTIFIERS: Name and Date of confirmed by patient verbally. FALL SCREENING: Has the patient had 2 falls in the last year or 1 fall with injury or currently using an Ambulatory Assistive Device (Walker, Cane, Wheelchair, Crutches, etc.)? No PATIENT GENDER DATA: Male PATIENT RELEVANT IMPLANT DATA REVIEWED: Yes ALLERGIES: Reviewed and unchanged CONTRAST ALLERGY: NO. EXAM: CT -CONTRAST INDUCED NEPHROPATHY RISK FACTORS: Patient age > 60 years CREATININE: Creatinine Date Value Ref Range Status 02/01/2023 1.13 0.73 - 1.22 mg/dL Final 12/02/2022 1.06 0.73 - 1.22 mg/dL Final 05/20/2022 1.13 0.73 - 1.22 mg/dL Final Estimated Glomerular Filtration Rate Date Value Ref Range Status 02/01/2023 64 >=60 mL/min/1.73m Final Comment: Estimated Glomerular Filtration Rate (eGFR) is calculated using the 2020 CKD-EPI creatinine equation. This equation utilizes serum creatinine, sex, and age as parameters. The creatinine assay has traceable calibration to isotope dilution- mass spectrometry. Refer to KDIGO guidelines for clinical interpretation. In patients with unstable renal function, e.g. those with acute kidney injury, the eGFRmay not accurately reflect actual GFR. eGFR- Date Value Ref Range Status 05/12/2021 >60 Final P.O.C.T. RESULTS: POC done: Yes, See Lab Tab March 04, 2023 TREATMENT: N/A PERIPHERAL IV DATA: Ambulatory: A peripheral IV was started in the Left antecubital site with a Angio cath: 18 gauge. RADIOLOGY DEPARTMENT: CT; Exam(s) Completed: CTA Abdomen Pelvis SIGNATURE: RT Anatoliy(R) PATIENT NAME: Paco Whitney DATE: March 04, 2023 TIME: 1:38 PM documented in this encounterCity Hospital08-15-2023 Miscellaneous Notes* Telephone Encounter - Briana Nuñez LPN - 03/01/2023 2:32 PM EDT Patient triaged in today and directed to [facility]. Briana Nuñez LPN * Telephone Encounter - Suzie Landaverde LPN - 03/01/2023 10:39 AM EDT Patient called. Verified name and date of . States he started coughing three to four days ago. Is coughing brownish, some times greenish, thick/heavy. Headache- sinus. Denies fever. States this happens occasionally. Please review and advise. [facility]erred pharmacy [facility]. Suzie Landaverde LPN documented in this encounterCity Hospital08-15-2023 History of Present illness Narrative* Ramses Jacinto APRN.CNP - 03/01/2023 12:50 PM EDT Nontoxic-appearing male presents urgent care accompanied by significant other. Chief complaint dizziness lightheadedness and sweating. Patient states symptoms have been present for 3 days have worsened the last 24 hours. Presents today for evaluation. With patient presenting symptoms I recommend patient be seen the ED to rule out cardiac or neurological or infectious causes of symptoms. Patient significant other verbalized understand agrees with plan of care. Will be seen at [facility]. Ramses Jacinto APRN.CNP documented in this encounterCity Hospital08-09-2023 History of Present illness Narrative* Adriel Vides RN - 02/23/2023 5:00 PM EDT [facility] Telephonic Outreach Provider Action/FYI AAA surgery COPD Contacted for: Routine Telephonic Outreach Contact made with patient: No, left message. Adriel Vides RN February 23, 2023 5:02 PM documented in this encounterCity Hospital07-18-2023 NoteHNO ID: [id number] Author: Too Kaur MD Service: Vascular Surgery Author Type: Resident Type: Progress Notes Filed: 02/01/2023 8:34 AM Note Text: [facility] V[facility]ULAR SURGERY PROGRESS NOTE Template ID: [id number] Service Date: 02/01/2023 Admit Date: 01/31/2023Service Time: 8:30 AM LOS: 1 day(s) Primary Service: Vascular Surgery Vascular Physician: Eladio Pablo MD Interval Events/Issues: No acute event overnight. Doing well, no issues. Subjective Current Facility-Administered Medications Medication Dose Route Frequency gabapentin 300 mg cap(s) (NEURONTIN) 300 mg ORAL TID tamsulosin 0.4 mg cap(s) (FLOMAX) 0.4 mg ORAL DAILY albuterol HFA 90 mcg/actuation 2 Puff (PROVENTIL HFA, VENTOLIN HFA) 2 Puff INHALATION q 4 H PRN Fenofibrate 160 mg (LOFIBRA) 160 mg ORAL DAILY aspirin 81 mg chewable tab(s) 81 mg ORAL DAILY pantoprazole DR 40 mg tab(s) (PROTONIX) 40 mg ORAL BEFORE BREAKFAST DAILY heparin 5,000 Units injection 5,000 Units SUBCUTANEOUS q 12 H NaCl 0.9% iv flush bag 20 mL INTRAVENOUS PRN acetaminophen 1,000 mg tab(s) (TYLENOL) 1,000 mg ORAL q 6 H oxyCODONE IR 2.5-5 mg tab(s) (ROXICODONE) 2.5-5 mg ORAL q 4 H PRN lidocaine 4 % 1 Patch (SALONPAS) 1 Patch TRANSDERMAL DAILY And lidocaine patch - REMOVE OTHER AT BEDTIME And lidocaine - VERIFY PATCH OTHER q 8 H fentaNYL 50 mcg/mL 50 mcg injection (SUBLIMAZE) 50 mcg INTRAVENOUS q 2 H PRN mometasone-formoterol 100-5 mcg/actuation 2 Puff inhaler (DULERA) 2 Puff INHALATION BID ondansetron (PF) 4 mg injection (ZOFRAN) 4 mg INTRAVENOUS q 6 H PRN Medication and Non-Pharmacologic VTE Prophylaxis/Anticoagulants Anticoagulant AND Antiplatelet Medications (From admission, onward) Start Dose Route Frequency Last Action Ordered Stop 01/31/23 1230 aspirin 81 mg chewable tab(s) 81 mg ORAL DAILY Given, 02/01 0751 01/31/23 1219 -- 01/31/23 1230 heparin 5,000 Units injection (Surgical Risk Categories) 5,000 Units SUBCUTANEOUS EVERY 12 HOURS Given, 02/01 0751 01/31/23 1219 -- 01/31/23 1500 activity - mobilize patient (ri,dc) 01/31/23 1230 pneumatic compression stockings ([place]) VTE Prophylaxis: VTE prophylaxis appropriate ALLERGIES Allergen Reactions Demerol [Meperidine* Mental Status Change Gave too high of dose Baycol Other: See Comments Rhabdoymyolysis Contrast Dye [Iodin* Intolerance pt needs to be oral hydrated after injection,..patient STATES HE IS NOT ALLERGIC TO IV DYE.. Lopid [Gemfibrozil] Other: See Comments Myalgia. Objective PHYSICAL EXAM: Patient Vitals for the past 24 hrs: BP Temp Temp src Pulse Resp SpO2 Height Weight 02/01/23 0800 -- 36.6 ?C (97.9 ?F) Oral -- -- -- -- -- 02/01/23 0700 119/58 -- -- 72 28 97 % -- -- 02/01/23 0600 112/57 -- -- 60 19 97 % -- 97.5 kg (214 lb 15.2 oz) 02/01/23 0500 116/59 -- -- (!) 57 16 99 % -- -- 02/01/23 0400 116/58 36.8 ?C (98.2 ?F) Oral 61 27 94 % -- -- 02/01/23 0300 120/59 -- -- (!) 55 25 96 % -- -- 02/01/23 0200 111/54 -- -- (!) 58 21 96 % -- -- 02/01/23 0100 126/64 -- -- (!) 59 23 99 % -- -- 02/01/23 0000 (!) 106/46 37 ?C (98.6 ?F) Oral (!) 54 25 97 % -- -- 01/31/23 2300 80/61 -- -- (!) 52 21 94 % -- -- 01/31/23 2200 123/61 -- -- (!) 52 20 100 % -- -- 01/31/23 2100 126/62 -- -- (!) 56 19 98 % -- -- 01/31/23 2000 (!) 117/49 36.7 ?C (98.1 ?F) Oral (!) 56 27 98 % -- -- 01/31/23 1933 -- -- -- (!) 47 17 100 % -- -- 01/31/23 1900 119/56 -- -- (!) 44 21 93 % -- -- 01/31/23 1800 117/51 -- -- (!) 47 27 100 % -- -- 01/31/23 1700 110/56 -- -- (!) 58 27 100 % -- -- 01/31/23 1600 (!) 111/46 36.3 ?C (97.3 ?F) Axillary (!) 44 19 99 % -- -- 01/31/23 1500 (!) 113/47 -- -- (!) 57 23 97 % -- -- 01/31/23 1430 (!) 110/49 -- -- (!) 50 14 100 % -- -- 01/31/23 1400 99/51 -- -- (!) 49 18 100 % -- -- 01/31/23 1354 -- -- -- -- -- -- 177.8 cm (5' 10) 98.6 kg (217 lb 6 oz) 01/31/23 1330 102/52 -- -- (!) 53 11 99 % -- -- 01/31/23 1315 104/50 -- -- (!) 46 11 100 % -- -- 01/31/23 1300 102/51 -- -- (!) 48 12 100 % -- -- 01/31/23 1245 99/52 -- -- (!) 56 19 100 % -- -- 01/31/23 1230 94/60 36.2 ?C (97.2 ?F) Axillary (!) 56 30 98 % -- -- Intake/Output Summary (Last 24 hours) at 02/01/2023 0830 Last data filed at 02/01/2023 0642 Gross per 24 hour Intake 3390 ml Output 2370 ml Net 1020 ml CONSTITUTIONAL: Well developed NEUROLOGIC/PSYCHIATRIC: Oriented to time, place AND person HEENT: No lesions LUNGS: Respiratory effort: normal HEART: Regular rate AND rhythm ABDOMEN: Soft INTEGUMENTARY: Wound - No SURGICAL SITES: Groin: Clean, Dry, Intact MUSCULOSKELETAL: No deformities Pulses/Signals: 2+ R DP, L PT DATA: Laboratory: Recent Labs 02/01/23 0259 WBC 6.60 HB 11.9* HCT 35.8* PLT 152 Recent Labs 02/01/23 0259 NA 139 K 3.9 BUN 19 CREAT 1.13 GLUC 118* MG 1.5* Impression: Paco Whitney is a 87 year old White male who is POD# 1 s/p EVAR with L iliac branch device Plan: Neuro/Pain: Continue pain contr (more content not included)...[facility] 02-01-2023 NoteHNO ID: [id number] Author: Reji Zarco MD Service: Critical Care Author Type: Resident Type: Progress Notes Filed: 02/01/2023 9:34 AM Note Text: Attestation signed by Pallavi Cazares MD at 02/01/2023 10:38 AM [facility] STAFF PHYSICIAN SUPERVISING RESIDENT I have reviewed the progress note obtained and documented by the resident. I have discussed the case and the plan and management of the patient's care with the resident and the bedside nurse. Pallavi Cazares MD February 01, 2023 10:38 AM SURGICAL INTENSIVE CARE UNIT PROGRESS NOTE Patient Name: Paco Whitney Admission Date: 01/31/2023 Date of Evaluation: February 01, 2023 Events from the last 12-24 hours reviewed. Registered Nurse, Pharmacist and Residents performed multidisciplinary rounds. HPI: Paco Whitney is a 87 year old male with PMHx of HTN, HLD, PAD s/p left TKA (2002), prior TIA, asthma/COPD, former smoker (quit 1990), GERD, BPH, and AAA who presents to [facility] for AAA repair. The patient has undergone serial monitoring by Vascular Surgery for known AAA. Although they have remained asymptomatic, the abdominal aortic aneurysm had increased in size to 5.5cm with 3cm aneurysms in the L MARCIN and R IIA. Patient is now s/p EVAR with PERLA. Type II endoleak on completion. No intraoperative complications. 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 Arrived extubated and not requiring any pressor support. HOSPITAL COURSE: - 01/31: s/p EVAR with PERLA CURRENT CONDITION: Stable OVERNIGHT EVENTS/INTERVAL HISTORY: No acute overnight events PHYSICAL EXAM: BP 109/64 Pulse 71 Temp 36.6 ?C (97.9 ?F) (Oral) Resp 16 Ht 177.8 cm (5' 10) Wt 97.5 kg (214 lb 15.2 oz) SpO2 100% BMI 30.84 kg/m? Body mass index is 30.84 kg/m?. GENERAL: No acute distress NEURO: Alert and oriented with no gross focal deficits CARDIAC: Regular rate and rhythm LUNGS: Non labored breathing on 2L ABDOMEN: Soft EXTREMITIES: Warm and well perfused - Pulses/Signals: LLE palpable DP/PT, biphasic DP RLE palpable DP, biphasic PT WOUNDS: Bilateral catheter entry sites without bleeding or swelling LABS: CBC, Coags, BMP, Mg, Phos Recent Labs 02/01/23 0259 WBC 6.60 HB 11.9* HCT 35.8* PLT 152 NA 139 K 3.9 CHLOR 105 CO2 27 BUN 19 CREAT 1.13 GLUC 118* CA 8.9 MG 1.5* Liver Function, Amylase, AND Lipase Cardiac Labs No results for input(s): CKTEST, CKMB, CKMBP, TROPT, PBNP in the last 168 hours. IMAGIN10/13/2022 CT Abdomen/Pelvis No acute process. Increase in the size of the infrarenal abdominal aortic aneurysm. 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 INTAKE/OUTPUT: Date 01/31/23699 - 02/01/2365802/01/23699 - 02/02/23 0659 Shift 4455-4733 0170-9562 1594-9299 24 Hour Total 0846-7824 9500-9640 5154-8121 24 Hour Total INTAKE PO 350 240 590 PO 350 240 590 IV 2800 2800 Volume (mL) (lactated ringers iv infusion) 1500 1500 Volume (mL) (lactated ringers iv infusion) 1000 1000 Volume (mL) (NaCl 0.9% iv infusion) 300 300 Shift Total 3150 240 3390 OUTPUT Urine 197 159 4692 2320 Void (ml) 600 1380 1980 Amount Voided Before Bladder Scan 0 0 0 0 OR Urine Output 340 340 # of BMs Number of BMs 0 x 0 x Blood 50 50 Estimated Blood loss 50 50 Shift Total 995 874 8598 2370 Weight (kg) 98.6 98.6 97.5 97.5 97.5 97.5 97.5 97.5 CURRENT MEDS: Current Facility-Administered Medications Medication Dose Route Frequency gabapentin 300 mg cap(s) (NEURONTIN) 300 mg ORAL TID tamsulosin 0.4 mg cap(s) (FLOMAX) 0.4 mg ORAL DAILY albuterol HFA 90 mcg/actuation 2 Puff (PROVENTIL HFA, VENTOLIN HFA) 2 Puff INHALATION q 4 H PRN Fenofibrate 160 mg (LOFIBRA) 160 mg ORAL DAILY aspirin 81 mg chewable tab(s) 81 mg ORAL DAILY pantoprazole DR 40 mg tab(s) (PROTONIX) 40 mg ORAL BEFORE BREAKFAST DAILY heparin 5,000 Units injection 5,000 Units SUBCUTANEOUS q 12 H NaCl 0.9% iv flush bag 20 mL INTRAVENOUS PRN acetaminophen 1,000 mg tab(s) (TYLENOL) 1,000 mg ORAL q 6 H lidocaine 4 % 1 Patch (SALONPAS) 1 Patch TRANSDERMAL DAILY And lidocaine patch - REMOVE OTHER AT BEDTIME And lidocaine - VERIFY PATCH OTHER q 8 H mometasone-formoterol 100-5 mcg/actuation 2 Puff inhaler (DULERA) 2 Puff INHALATION BID ondansetron (PF) 4 mg injection (ZOFRAN) 4 mg INTRAVENOUS q 6 H PRN ASSESSMENT AND PLAN: Paco Whitney is a 87 year old male with past medical/surgical history of HTN, HLD, PAD s/p left TKA (2002), prior TIA, asthma/COPD, former smoker (quit 1990), GERD, BPH, and AAA who presents with 5.5 cm asymptomatic AAA who is now s/p EVAR with PERLA. REASON FOR ICU ADMISSION: Hemodynamic monitoring, q1hr vascular neurochecks Neuro: - Pain control: Jeffery Tylenol, Oxy PRN, dc Fentanyl, home gabapentin - Sedation: None (more content not included)...[id number] NoteHNO ID: [id number] Author: HOANG Barton Service: ? Author Type: Appliance Technician Type: Anesthesia Procedure Notes Filed: 01/31/2023 9:28 AM Note Text: ANESTHESIOLOGY PROCEDURE NOTE PIV General Information Procedure Start Time/Medication Administration: 01/31/2023 8:17 AM Staffing Anesthesiologist: Rylie Schulz MD SHIRT MARKER: Jazz Sweet APRN.SHIRT MARKER CAA: Ras Osuna AA Performed by: anesthesiologist Preparation Site Prep: alcohol Procedure Details Indication: need for IV access Needle Size/Type: 16 gauge angiocath Orientation: Right Location: Hand Imaging Guidance Used: No SIGNATURE: HOANG Barton PATIENT NAME: Paco Whitney DATE: January 31, 2023 TIME: 9:27 AM CSN: [id number] ID: [id number] Author: HOANG Barton Service: ? Author Type: Appliance Technician Type: Anesthesia Procedure Notes Filed: 01/31/2023 9:28 AM Note Text: ANESTHESIOLOGY PROCEDURE NOTE PIV General Information Procedure Start Time/Medication Administration: 01/31/2023 8:16 AM Patient Location: OR Staffing Anesthesiologist: Rylie Schulz MD SHIRT MARKER: Jazz Sweet APRN.SHIRT MARKER CAA: Ras Osuna AA Performed by: anesthesiologist Preparation Site Prep: alcohol Procedure Details Indication: need for IV access Needle Size/Type: 16 gauge angiocath Orientation: Left Location: Hand Imaging Guidance Used: No SIGNATURE: HOANG Barton PATIENT NAME: Paco Whitney DATE: January 31, 2023 TIME: 9:26 AM CSN: [id number] ID: [id number] Author: HOANG Barton Service: ? Author Type: Appliance Technician Type: Anesthesia Procedure Notes Filed: 01/31/2023 9:22 AM Note Text: ANESTHESIOLOGY PROCEDURE NOTE A-Line General Information Procedure Start Time/Medication Administration: 01/31/2023 8:05 AM Patient location during procedure: OR Indications: continuous blood pressure monitoring and blood sampling needed Staffing Anesthesiologist: Rylie Schulz MD SHIRT MARKER: Jazz Sweet APRN.SHIRT MARKER CAA: Ras Osuna AA Performed by: anesthesiologist Preparation Sterility Preparation: sterile gloves, drapes, and procedure tray, surgical cap used, mask used, sterile drape used during line insertion, skin prep agent completely dried prior to procedure Site Prep: Chloraprep Procedure Details Catheter Type: arterial line Catheter Size: 20 G Catheter Length: 5.25 in Micropuncture Kit Used: No Guidewire Used: Yes Guidewire Removed Intact: Yes Laterality: right Site: radial artery Ultrasound Guided: Yes Image in Chart: Yes Sites: potential access sites evaluated, selected vessel patent, concurrent real time ultrasound visualization of vascular needle entry Vessel: target vessel identified and guidewire advanced into vessel Line Secured: occlusive biodressing and tape Events Events: patient tolerated procedure well with no complications and greater than 3 attempts Comments First attempt by CAA resulted in successful cannulation (unable to advance wire). Second attempt by CAA resulted the same, with ultrasound used. Third attempt by anesthesiologist (using ultrasound, successful cannulation, unable to thread wire). Fourth attempt successful by anesthesiologist using ultrasound and using a more proximal site on the radial artery. SIGNATURE: HOANG Barton PATIENT NAME: Paco Whitney DATE: January 31, 2023 TIME: 9:15 AM CSN: [id number] [id number] ID: [id number] Author: HOANG Barton Service: ? Author Type: Appliance Technician Type: Anesthesia Procedure Notes Filed: 01/31/2023 9:15 AM Note Text: ANESTHESIOLOGY PROCEDURE NOTE Airway General Information Procedure Start Time/Medication Administration: 01/31/2023 8:15 AM Patient location during procedure: OR Patient identity confirmed: arm band, care steam blocker and patient Staffing Anesthesiologist: Rylie Schulz MD SHIRT MARKER: Jazz Sweet APRN.SHIRT MARKER CAA: Ras Osuna AA Performed by: NICOLE Indications and Patient Condition Indications for airway management: anesthesia Preoxygenated: yes anesthesia circuit Patient position: sniffing Method: asleep Difficult Mask: No Airway Accessory: oral airway (9 cm) Final Airway Details Final airway type: endotracheal airway Final Endotracheal Airway: ETT Successful intubation technique: video laryngoscopy Devices used: Prepmatic Endotracheal tube insertion site: oral Blade size: #4 ETT size (mm): 8.0 Measured from: gums Measurement (cm): 22 Placement verified by: chest auscultation and capnometry Cormack-Lehane Classification: grade I - full view of glottis Number of attempts at approach: 1 Failed airway: no Unrecognized esophageal intubation: no Airway not difficult Comments Atraumatic intubation SIGNATURE: HOANG Barton PATIENT NAME: Paco Whitney DATE: January 31, 2023 TIME: 9:08 AM CSN: [id number] History of Present illness Narrative* Adriel Vides RN - 01/25/2023 10:26 AM EDT [facility] Telephonic Outreach Provider Action/FYI Patient completed pre surgical testing for scheduled surgery 01/31. Received pre op instructions. Plan is for overnight stay. Dtr coming in from out of town to support her parents. She will provide the transportation. Does not have start time yet- should hear in next few days. Feeling better since having COPD/Asthma exacerbation- Completed atx and steroid. Cough, mucous production improved. Very pleased with pulmonary visit and BELT CONVEYOR DRIER taking time to review diagnotic imaging with patient. HTN/COPD Contacted for: Routine Telephonic Outreach Contact made with patient: Yes Patient identified by name and date of . Discussed care with patient Are you experiencing any new or worsening symptoms you need to talk about today? No Disease Specific Do you check your blood pressure at home? No Do you have new or worsening shortness of breath with activity? No Do you have new or worsening cough? No Do you have new or worsening wheezing? No Do you need to use your rescue (Albuterol) inhaler or nebulizer more often than normal? No Based on children's attendant, the following disposition is advised: No symptoms or symptoms present, not severe. Routed to: No Action Needed GEOFF Education Provided this Outreach: No Adriel Vides RN January 26, 2023 12:50 PM documented in this encounterCity Hospital07-10-2023 History and physical note * Rose Wall APRN.SARAI - 01/24/2023 11:44 AM EDT HISTORY AND PHYSICAL EXAMINATION SERVICE DATE: 01/24/2023 SERVICE TIME: 1:01 PM PRIMARY CARE PHYSICIAN: Clarice Murillo MD REASON FOR VISIT: Paco Whitney is a 87 year old male who is scheduled for Procedure(s) with comments: ENDOVASCULAR REPAIR AORTA TO RENAL LEVEL,W/AORTO-AORTIC ENDOGRAFT,WITHOUT RUPTURE (N/A) - Endovascular aortic aneurysm repair with iliac branch device - Damián Pierre from [place] will bring implant - kf7/3 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 My final recommendation will be communicated back to the requesting physician by way of shared medical record or letter. Subjective The patient has the following: ACTIVE PROBLEM LIST Copd (Chronic Obstructive Pulmonary Disease) (Hcc) Asthma Essential Hypertension, Benign Hyperlipidemia Vitamin D Deficiency Bilateral Carotid Artery Stenosis Bph (Benign Prostatic Hyperplasia) Degenerative Arthritis of Lumbar Spine Enlarged Prostate Lower Urinary Tract Symptoms (Luts) History of Kidney Stones Complex Renal Cyst Diverticulosis Right Renal Mass Renal Cyst Benign Non-Nodular Prostatic Hyperplasia With Lower Urinary Tract Symptoms Abdominal Aortic Aneurysm Without Rupture (Hcc) Lung Nodule History of GI Diverticular Bleed Vertebrobasilar Artery Syndrome History of Transient Ischemic Attack (Tia) History of Total Knee Arthroplasty, Left Neuropathy COVID-19 Immunization Status Overdue - COVID-19 VACCINE (4 - Moderna series) Overdue since 07/28/2021 06/02/2021 Imm Admin: COVID-19 original vaccine, full dose, monovalent (MODERNA) 09/03/2020 Imm Admin: COVID-19 original vaccine, full dose, monovalent (MODERNA) 08/06/2020 Imm Admin: COVID-19 original vaccine, full dose, monovalent (MODERNA) CHIEF COMPLAINT: Pre-op exam HPI: Paco Whitney is a 87 year old seen for PAC due to scheduled above surgery because of an AAA. 10/27/2022, Dr. Pablo CHIEF COMPLAINT/HISTORY OF PRESENT ILLNESS: Chief Complaint: Abdominal aortic aneurysm History of Present Illness: Paco Whitney is a 87 year old male Patient presents for evaluation of abdominal aortic aneurysm Abdominal aortic aneurysm grown to 5.5 cm ap dimension on sagital views, 3cm left common iliac artery aneurysm, 3cm right internal iliac artery aneurysm No claudication- walking limited by knee arthritus REVIEW OF SYSTEMS: General: No weight loss, malaise or fevers. Neurological: Positive for: peripheral neuropathy (on rx) and strokes. Patient's stroke is without residual deficits. Negative for: cerebral palsy, HUMIDIFIER OPERATOR tumor, dementia, headaches, impaired sensorium, multiple sclerosis, Parkinson's disease, seizures and TIA. Respiratory: Positive for: asthma and COPD. Negative for: pneumonia within 6 weeks, tobacco use, URI < 2 weeks and obstructive sleep apnea. Cardiovascular: +carotid artery stenosis Positive for: abdominal aortic aneurysm, hyperlipidemia (on rx), hypertension (on rx) and murmur/valvular heart disease (MVP) Negative for: anticoagulation therapy, arrhythmia, atrial fibrillation, CAD, chest pain, CHF, congenital heart defect, DVT/PE, recent ID, open heart surgery and valve surgery. GI: Positive for: GERD (on rx) Negative for: abdominal pain, dysphagia, GI bleed <30 days, irritable bowel syndrome, inflammatory bowel disease, liver disease, nausea, pancreatitis, vomiting and ETOH >2 drinks/day. : +renal cysts Positive for: BPH (on rx). Negative for: urinary incontinence, nephrolithiasis, renal failure, self catheterization, urgency and urinary tract infection. Endocrine: No history of diabetes. Has not taken steroids within the past 30 days. No history of endocrinological symptoms or problems. Hematology: Positive for: bruises/bleeds easily and chronic anti-coagulation/platelet meds. Patient is on anti-coagulation/platelet medication(s): Aspirin. Negative for: anemia and transfusion of at least 4 units within 72 hours prior to surgery. Oncology: No history of CA metastasis, chemo within 30 days, or radiotherapy within 90 days. No history of oncological symptoms or problems. Psych: No history of psychiatric symptoms or problems. Musculoskeletal: S/p left TKA Positive for: back pain and joint pain. Skin: Negative for lesions, rash and itching. PAST MEDICAL HISTORY Diagnosis Date Chronic airway obstruction, not elsewhere classified Diverticulitis 12/16/2014 Diverticulosis of colon with hemorrhage Essential hypertension, benign GERD (gastroesophageal reflux disease) History of eye surgery 03/29/2011 Right eye Other and unspecified hyperlipidemia Rectal bleeding 12/16/2014 Retinal detachment with retinal defect, unspecified RIGHT EYE, WITH LENSE Rhabdomyolysis 07/18/2003 had as a result of [facility] Unspecified asthma(493.90) Unspecified cause of encephalitis, myelitis, and encephalomyelitis had mumps as an adult Unspecified transient cerebral ischemia x 2; artery syndrome PAST SURGICAL HISTORY Procedure Laterality Date ARTHRP KNE CONDYLE&PLATU MEDIAL&LAT COMPARTMENTS 2002 Knee replacement, total, left CHOLECYSTECTOMY 2006 Cholecystectomy COLONOSCOPY 04/11/06 COLONOSCOPY 12/16/14 widespread diverticulosis,Repeat 2024 COLONOSCOPY FLX DX W/COLLJ SPEC WHEN PFRMD 09/19/2011 Colonoscopy inpt [facility] HERNIA REPAIR HX 04/03/13 PAST SURGICAL HISTORY OF 1971 Back Surgery PAST SURGICAL HISTORY OF 11/15/2016 Colonoscopy, Dr. Romeo RPR RETINAL DTCHMNT DRG SUBRETINAL FLUID PC 2003 Laser repair retinal detach, right eye TONSILLECTOMY PRIMARY/SECONDARY <AGE 14 Tonsillectomy VASECTOMY UNI/BI SPX W/POSTOP SEMEN EXAMS 1964 FAMILY HISTORY Problem Relation Age of Onset Hypertension Mother other (Parkinsons disease) Mother Heart Father Heart Brother Heart surgery Cancer Brother of liver. Diabetes Brother Heart disease Son No Family History No Family History No COPD, lung cancer. Social History Tobacco Use Smoking status: Former Packs/day: 2.00 Years: 32.00 Total pack years: 64.00 Types: Cigarettes Start date: 1959 Quit date: 10/30/1990 Years since quittin.2 Smokeless tobacco: Never Tobacco comments: Multiple 4-5 year quits during smoking career. Vaping Use Vaping Use: Never used Substance Use Topics Alcohol use: No Drug use: No Prior to Admission medications as of 01/24/23 1159 Medication Sig Last Dose Taking gabapentin (NEURONTIN) 300 mg capsule Take 1 capsule by mouth three times daily for 180 days. Taking Yes ramipril (ALTACE) 10 mg capsule Take 1 capsule by mouth once daily. Taking Yes cholecalciferol (VITAMIN D3) 1,000 unit tab tablet Cholecalciferol (Vit D3) Active 3000 UNIT TWICE A DAY November 23, 2014 8:06am Taking Yes tamsulosin (FLOMAX) 0.4 mg TAKE ONE CAPSULE BY MOUTH ONCE DAILY AT BEDTIME Taking Yes pantoprazole DR (PROTONIX) 40 mg tablet Take 1 tablet by mouth daily before breakfast. Take on empty stomach, 1/2 hr before meal. Taking Yes budesonide-formoterol (SYMBICORT) 160-4.5 mcg/actuation inhaler Inhale 2 Puffs as instructed twice daily. Taking Yes guaiFENesin (MUCINEX) 600 mg 12 hr tablet Take 2 tablets by mouth twice daily. Patient taking differently: Take 1,200 mg by mouth twice daily. As needed Taking Yes Fenofibrate (LOFIBRA) 160 mg tablet Take 1 tablet by mouth once daily. Taking Yes meclizine (ANTIVERT) 25 mg tab Take 1 tablet by mouth every 6 hours as needed. FOR DIZZINESS TakingYes clotrimazole-betamethasone (LOTRISONE) cream Apply 1 application to affected area twice daily. Patient taking differently: Apply 1 application to affected area twice daily. As needed Taking Yes aspirin 81 mg cap Take 1 capsule by mouth once daily. Taking Yes uoinpccf-ykqevyjpu-uxyoudxregfgrh (CORTISPORIN) 3.5-10,000-1 mg/mL-unit/mL-% otic suspension Use 4 Drops in the ears four times daily. x 1 week Taking Yes albuterol HFA (VENTOLIN HFA) 90 mcg/actuation inhaler Inhale 2 Puffs as instructed every 4 hours asneeded for Wheezing/Shortness of Breath. Taking Yes Medication Comments documented by Korin Calixto Ma on 11/27/2019 at 1501. Started Baby ASA 81 mg daily ALLERGIES Allergen Reactions [facility]] [Other] Other: See Comments Rhabdomyolysis. Demerol [Meperidine* Mental Status Change Gave too high of dose Contrast Dye [Iodin* Intolerance pt needs to be oral hydrated after injection,..patient STATES HE IS NOT ALLERGIC TO IV DYE.. Lopid [Gemfibrozil] Other: See Comments Myalgia. Objective PHYSICAL EXAM: General: alert and oriented (x3), healthy appearance and obese. Pertinent negatives noted - not distressed. Skin: normal color, no rash or lesions. HEENT: EOM intact and pupils equal round. Pertinent negatives noted - no carotid bruit. Cardiovascular: regular rate and rhythm, normal S1 and S2, no rub, murmurs, or gallop. Respiratory: normal breath sounds, no wheezes or crackles. No chest wall deformity or tenderness. Abdomen: soft. Pertinent negatives noted - not tender. Extremities: no deformity, no edema or tenderness, no joint swelling or clubbing. Neurological: normal cognition and motor skills. Gait normal. No weakness or sensory deficit. PAIN ASSESSMENT: VITALS: BP 134/64 Pulse 72 Temp (Src) 98.5 (Temporal) Resp 18 Ht 5' 6 (1.68m) Wt 211 lb (95.7kg) SpO2 92% BMI 34.07 kg/(m^2). Diagnostic tests reviewed for today's visit: Lab Value Units Date High Low HB 15.7 g/dL 12/02/2022 17.0 13.0 HCT 47.0 % 12/02/2022 51.0 39.0 WBC 7.11 k/uL 12/02/2022 11.00 3.70 PLT 221 k/uL 12/02/2022 400 150 NA 141 mmol/L 12/02/2022 144 136 K 4.6 mmol/L 12/02/2022 5.1 3.7 GLUC 93 mg/dL 12/02/2022 99 74 BUN 24 mg/dL 12/02/2022 24 9 CREAT 1.06 mg/dL 12/02/2022 1.22 0.73 PTSEC No results within date range. INR No results within date range. APTT No results within date range. ALT 16 U/L 12/02/2022 54 10 AST 24 U/L 12/02/2022 40 14 TBILI 0.8 mg/dL 12/02/2022 1.3 0.2 TSH No results within date range. Lab Value Units Date High Low HCGQT No results within date range. UHCG No results within date range. HCG, BODY* No results within date range. Lab Value Units Date High Low ABORHD No results within date range. ABSCREEN No results within date range. No results found for: HBA1C No results found for this or any previous visit (from the past 8760 hour(s)). No results found for this or any previous visit (from the past 88705 hour(s)). Assessment Patient has the following medical conditions which may affect lauren-operative course: COPD (chronic obstructive pulmonary disease) (HCC) Assessment: controlled on rx and as needed, former smoker 2ppd/32 years 06/2022 spirometry IMPRESSION: Spirometry is normal. 01/06/2023 Samaria Lazcano PA-C ASSESSMENT/PLAN: 1. Asthma with COPD with exacerbation (HCC) - ICD9: 493.22, ICD10: J44.1, J45.901 (primary diagnosis) Treat with 7-day course of Doxycycline and Prednisone burst. Continue Symbicort with as needed Albuterol. - PREDNISONE 20 MG TABLET - DOXYCYCLINE HYCLATE 100 MG TABLET 2. Lung nodules - ICD9: 793.19, ICD10: R91.[address] chest with patient. 3. Former cigarette smoker - ICD9: V15.82, ICD10: Z87.891 Former [id number] smoking having quit in 1990 without sequelae of significant COPD or emphysema. Continue abstinence. Does not qualify for lung cancer screening with LDCT Portions of this documentation were copied and pasted from previous office visit notes in order to provide a cohesive continuity of the history. The note has been reviewed and edited and updated as necessary. 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 Assessment: controlled on rx Renal cyst Assessment: hx Creatinine Date Value Ref Range Status 12/02/2022 1.06 0.73 - 1.22 mg/dL Final 05/20/2022 1.13 0.73 - 1.22 mg/dL Final 12/01/2021 1.16 0.73 - 1.22 mg/dL Final 05/12/2021 1.23 (H) 0.73 - 1.22 mg/dL Final Hyperlipidemia Assessment: on rx BENIGN HYPERTENSION Assessment: controlled on rx Last 14 BP Last 14 Encounter BP Readings: Date: BP: 01/24/2023 134/64 01/06/2023 98/64 12/06/2022 116/68 10/27/2022 116/65 09/06/2022 130/78 2022 110/60 06/08/2022 118/64 06/04/2022 122/78 11/30/2021 100/60 05/29/2021 116/70 01/20/2021 111/57 11/26/2020 120/74 07/01/2020 128/78 05/29/2020 120/80 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 Clinical Frailty Scale: 4. Apparently vulnerable STOP-Bang Score: Snores loudly Often feels tired, fatigued, or sleepy during the daytime Has been observed to stop breathing or choking/gasping during sleep Has or is being treated for high blood pressure Patient over 50 years old Has a large neck Male patient BMI less than or equal to 35 kg/m^2 STOP-Bang Score: 7 [id number] Score: Age: >=75 Sex: male CHF history: No Hypertension history: Yes Stroke/TIA/thromboembolism history: Yes Vascular disease history: Yes Diabetes history: No [id number] Score: 6 ARISCAT Score: Age: >80 Preoperative SpO2: 91-95% Respiratory infection in the last month: No Preoperative anemia: Yes Surgical incision: peripheral Duration of surgery: >3 hrs Emergency procedure: No ARISCAT Score: 58 ASA Class: 3 ANESTHESIA FINDINGS: Intubation History: No history of difficult intubation Significant Anesthesia Considerations: none Airway History: No history of difficult airway I - PHYSICAL EVALUATION AIRWAY Patient intubated: No. Tracheostomy tube not present Mallampati: I. TM distance: >3 FB. Neck ROM: limited flexion and extension. Mouth opening: adequate. Short neck: no. Thick neck: yes Guidry present: no Lip Bite Test: II Microretrognathia/Micronagthia/Recessed Chin: No DENTAL Dental findings: teeth intact. II - ANESTHESIA PLAN ASA Score: 3 Anesthetic Plan: other Anesthetic plan additional comments: *PACC/TCI - anesthesia choice. Beta Edward Monitoring Plan Post Procedure Analgesic Plan Informed Consent Anesthetic risks, benefits, alternatives, personnel and consent discussed: yes. Patient / Responsible [employer] Party agrees to proceed: yes Patient / Surrogate agrees to blood products: Yes Discussed the possibility of lip / dental damage: yes Prepared for Surgery: optimally prepared for surgery, pending [see comment]. labs CONSULTS: Patient does not require consults for optimization at this time Planned Anesthetic: other anesthesia choice The Following Tests/Procedures Have Been Initiated: Orders Placed This Encounter Type and Screen, 30 day Standing Status: Future Number of Occurrences: 1 Standing Expiration Date: 03/26/2023 Order Specific Question: Hospital of Planned Surgery or Procedure: Answer: Makeda Confirm Blood Type Standing Status: Future Standing Expiration Date: 03/26/2023 Order Specific Question: Did Blood Bank direct you to place this order: Answer: No - Presurgical Workflow Instructions Given to Patient: Instructions located in the after visit summary. Patient given verbal and written preop instructions and voices comprehension and compliance. SIGNATURE: Rose Wall APRN.CNP PATIENT NAME: Paco Whitney DATE: January 24, 2023 TIME: 11:44 AM PAGER/CONTACT #: documented in this encounterCity [facility]07-[facility]23 Instructions* Patient Instructions* Rose Wall APRN.CNP - 01/24/2023 11:44 AM EDT PATIENT PREOPERATIVE INSTRUCTIONS No ref. provider found has scheduled you for your procedure at this surgery center: [facility]: [phone] --[id number] [address]. Please check in on the1st floor at registration desk 6. Please read below carefully for your personalized instructions. Dietary Restrictions: - No solid food after midnight. - You may have 12 ounces of clear liquids (water, clear juices such as apple juice or gatorade, carbonated beverages, clear tea, black coffee, jello) until 2 hours before scheduled arrival at facility. No red/purple coloring and no creamer/sugar Medications: Unless instructed differently below, stay on all of your medications until your surgery. Approved medications to take the morning of surgery with a sip of water: fenofibrate (TRICOR), gabapentin (NEURONTIN), pantoprazole DR (PROTONIX), tamsulosin (FLOMAX), all inhalers/nebulizers Do not take Ramipril the morning and/or evening prior surgery If you take any medications for erectile dysfunction-Cialis (Tadalafil), Levitra, Staxyn (Vardenafil) Viagra (Sildenenafil please do not take these for 48 hours before surgery. If you start any new medications after today's visit, please contact the surgeon's office. Blood Thinning Medications: - Stop NSAIDS (Ibuprofen, Advil, Aleve, Motrin, Celebrex, Mobic, etc.) 7 days before surgery, as directed by your surgeon. - Stop Aspirin 7 days before surgery, as directed by your surgeon. - Stop Vitamin E, ALL multi-vitamins, herbals and dietary supplements 7 days before surgery. - You may take Tylenol (Acetaminophen) or any of your pain medications that do not contain aspirin or NSAIDS as needed. Important Reminders: - Candy, mints, and tobacco products are NOT permitted the morning of surgery. - Hearing aids, dentures and glasses may be worn the morning of surgery. - NO jewelry, body piercings, makeup, hairpins or contacts are to be worn the day of surgery. If you develop symptoms such as a fever, cold, or flu, or have other changes to your health within TWO DAYS of scheduled surgery or the morning of surgery, please contact the surgery center above. Personal Belongings: -Please have photo ID and insurance cards. -If you do not have a copy of advance directives on file with us, please bring a copy with you on the day of surgery. - Leave ALL valuables and money at home or with family members. For Outpatient Procedures: - YOU MUST HAVE A RESPONSIBLE [facility] TAKE YOU HOME. A DIRECTOR OF ASSISTED LIVING OR MARINE ELECTRICIAN HELPER CANNOT BE MADE A RESPONSIBLE [facility]. - We recommend that a responsible person stays with you overnight to take care of you. - You cannot stay in a hotel alone after outpatient surgery. You will not be permitted to have yoursurgery, if you do not have someone to take care of you. Arrival Time for Surgery: - The Surgery Center or hospital where you are having surgery will call the afternoon before surgery (or Tuesday for Tuesday surgery) with a scheduled arrival time. - If you have not heard by 4 pm, please contact the surgery center above. Please be aware that emergency situations arise, which may delay or change your surgical time. If this happens, we will notify you as soon as possible and regret any inconvenience. If you already have an Advance Directive, please fax a copy to [phone] or email to for it to be added to your chart. If you do not have an Advance Directive, you can find the appropriate form and more information at [email or web address]. We recommend that youcomplete the Advance Directive form found on the website and bring it with you the day of your surgery. It can be witnessed and scanned into your chart that day. Rose Wall APRN.SARAI documented in this encounterCity [facility]06-22-2023 History of Present illness Narrative* Samaria Lazcano PA-C - 01/06/2023 1:00 PM EDT Images from the original note were not included. Patient: Paco Whitney PCP: Clarice Murillo MD CC: Follow-up HPI: Paco Whitney 87 year old male former 60 pack year smoker, quitting 1990 with PMH significant for clinical obstructive lung disease (PFTs normal) with CB, GERD, HTN, and lung nodules. Known renal nodules and RLL mass previously evaluated by biopsy in 2014, negative for malignancy. Serial follow-up chest CT images have shown stability, consistent with possible rounded atelectasis. Most recent office visit with Dr. Luna on 07/06/2022 at which time his Symbicort was increased to 160/4.5. Today, reports he coughs daily. Currently productive of yellow/green sputum. No hemoptysis. Nighttimeand exertional wheezing. Denies significant dyspnea, however, he notes chest tightness especially if he is in the heat or triggered by allergies. PAST MEDICAL HISTORY Diagnosis Date Chronic airway obstruction, not elsewhere classified Diverticulitis 12/16/2014 Diverticulosis of colon with hemorrhage Essential hypertension, benign GERD (gastroesophageal reflux disease) History of eye surgery 03/29/2011 Right eye Other and unspecified hyperlipidemia Rectal bleeding 12/16/2014 Retinal detachment with retinal defect, unspecified RIGHT EYE, WITH LENSE Rhabdomyolysis 07/18/2003 had as a result of [facility] Unspecified asthma(493.90) Unspecified cause of encephalitis, myelitis, and encephalomyelitis had mumps as an adult Unspecified transient cerebral ischemia x 2; artery syndrome Allergies: [facility]col[facility]] [Other] Other: See Comments Comment:Rhabdomyolysis. Demerol [Meperidine* Mental Status Change Comment:Gave too high of dose Contrast Dye [Iodin* Intolerance Comment:pt needs to be oral hydrated after injection,..patient STATES HE IS NOT ALLERGIC TO IV DYE.. Lopid [Gemfibrozil] Other: See Comments Comment:Myalgia. ramipril (ALTACE) 10 mg capsule Take 1 capsule by mouth once daily. cholecalciferol (VITAMIN D3) 1,000 unit tab tablet Cholecalciferol (Vit D3) Active 3000 UNIT TWICE A DAY November 23, 2014 8:06am tamsulosin (FLOMAX) 0.4 mg TAKE ONE CAPSULE BY MOUTH ONCE DAILY AT BEDTIME pantoprazole DR (PROTONIX) 40 mg tablet Take 1 tablet by mouth daily before breakfast. Take on empty stomach, 1/2 hr before meal. budesonide-formoterol (SYMBICORT) 160-4.5 mcg/actuation inhaler Inhale 2 Puffs as instructed twice daily. guaiFENesin (MUCINEX) 600 mg 12 hr tablet Take 2 tablets by mouth twice daily. (Patient taking differently: Take 1,200 mg by mouth twice daily. As needed) gabapentin (NEURONTIN) 300 mg capsule Take 1 capsule by mouth three times daily for 180 days. Fenofibrate (LOFIBRA) 160 mg tablet Take 1 tablet by mouth once daily. meclizine (ANTIVERT) 25 mg tab Take 1 tablet by mouth every 6 hours as needed. FOR DIZZINESS clotrimazole-betamethasone (LOTRISONE) cream Apply 1 application to affected area twice daily. (Patient taking differently: Apply 1 application to affected area twice daily. As needed) aspirin 81 mg cap Take 1 capsule by mouth once daily. gsvwujib-ycdmeeumk-vdahdklmdkyadf (CORTISPORIN) 3.5-10,000-1 mg/mL-unit/mL-% otic suspension Use 4 Drops in the ears four times daily. x 1 week albuterol HFA (VENTOLIN HFA) 90 mcg/actuation inhaler Inhale 2 Puffs as instructed every 4 hours asneeded for Wheezing/Shortness of Breath. Social History Tobacco Use Smoking status: Former Packs/day: 2.00 Years: 32.00 Pack years: 64.00 Types: Cigarettes Start date: 1959 Quit date: 10/30/1990 Years since quittin.2 Smokeless tobacco: Never Tobacco comments: Multiple 4-5 year quits during smoking career. Vaping Use Vaping Use: Never used Substance Use Topics Alcohol use: No Drug use: No Family History Problem Relation Age of Onset Hypertension Mother other (Parkinsons disease) Mother Heart Father Heart Brother Heart surgery Cancer Brother of liver. Diabetes Brother Heart disease Son No Family History No Family History No COPD, lung cancer. PAST SURGICAL HISTORY Procedure Laterality Date ARTHRP KNE CONDYLE&PLATU MEDIAL&LAT COMPARTMENTS 2002 Knee replacement, total, left CHOLECYSTECTOMY 2006 Cholecystectomy COLONOSCOPY 04/11/06 COLONOSCOPY 12/16/14 widespread diverticulosis,Repeat 2024 COLONOSCOPY FLX DX W/COLLJ SPEC WHEN PFRMD 09/19/2011 Colonoscopy in[facility] HERNIA REPAIR HX 04/03/13 PAST SURGICAL HISTORY OF 1971 Back Surgery PAST SURGICAL HISTORY OF 11/15/2016 Colonoscopy, Dr. Romeo RPR RETINAL DTCHMNT DRG SUBRETINAL FLUID PC 2003 Laser repair retinal detach, right eye TONSILLECTOMY PRIMARY/SECONDARY <AGE 14 Tonsillectomy VASECTOMY UNI/BI SPX W/POSTOP SEMEN EXAMS 1963 I reviewed the past medical history, family history, social history and surgical history with changes noted above and updated in EMR. IMMUNIZATIONS Prevnar - 06/25/2015 Pneumovax - 04/17/2006 Influenza - 06/04/2022 COVID-19 - 06/02/2021, 09/03/2020, 08/06/2020 ROS: General: No fevers, chills or night sweats. No unintended weight loss. Appetite good. Eyes, Ears, nose, throat: Reports sinus congestion. No post nasal drip. No hoarseness. Vision stable. Cardiac: No angina, edema, orthopnea. Resp: See HPI. GI: No heartburn, dysphagia. Musculoskeletal: Peripheral neuropathy. Neuro: No headache, focal weakness, tremor. Skin: No rash. Otherwise negative. PHYSICAL EXAMINATION: BP 98/64 Pulse 95 Resp 14 Wt 91.2 kg (201 lb) SpO2 96% BMI 32.44 kg/m Gen: No acute distress. Cooperative with examination. HEENT: Normocephalic. Sclera, conjunctiva clear. Oral hygeine and dentition good. No thrush. Resp: No stridor, accessory respiratory muscle use, supra-sternal or intercostal retractions. No wheezes, crackles. CV: Regular rythm. Heart tones normal. Radial pulses normal. Abd: Non distended. MSK: No kyphoscoliosis. Ext: Warm and well perfused. No clubbing, cyanosis, edema. Skin: No rash, ecchymoses. Neuro: Mental status normal. Affect normal. No tremor. DATA: PFT, 07/06/2022 CT chest, 07/08/2022 IMPRESSION: Again seen is reticulation within the periphery of the lungs and lower lobes, bilaterally, suggesting interstitial disease. Stable nodular density within the right lung base, measuring approximately 3.2 x 2.7 cm. Additionally, there are stable subcentimeter pulmonary nodules. Emphysema with mild, diffuse bronchiectasis. Stable prominent, less than 1 cm mediastinal and bilateral hilar lymph nodes, likely reactive. Dilated main pulmonary artery, measuring approximately 3.2 cm, which can be seen with pulmonary arterial hypertension. Comparison: Chest radiograph dated 05/19/2022. Prior chest CT dated 06/26/2018. RESULT: Limitations: None. Lines, tubes, and devices: None. Lung parenchyma and airways: Again seen is reticulation within the periphery of the lungs and lower lobes, bilaterally, suggesting interstitial disease. There is emphysema with mild, diffuse bronchiectasis. Stable, approximately 3.3 x 2.5 cm nodular density is seen within the right lung base (series 5, image #158). Additionally, there are stable subcentimeter pulmonary nodules. For example, there is a stable, approximately 6 mm nodule seen within the right lower lobe (series 5, image #126). There is a stable, approximately 4 mm nodule within left lower lobe (series 5, image #122). Other pulmonary nodules are also stable. There is no new pulmonary nodule. There is no pneumothorax or endobronchial lesion. A calcified granuloma is again seen within the right lower lobe (series 5, image #158). Pleural space: There is no pleural effusion. Lower neck, lymph nodes, and mediastinum: There are stable prominent, less than 1 cm mediastinal and bilateral hilar lymph nodes, likely reactive. No vero axillary lymphadenopathy is identified. Heart, pericardium, and thoracic vessels: Atherosclerotic calcifications are present within the thoracic aorta and coronary arteries. The heart is normal in size. There is no significant pericardial effusion. The main pulmonary is dilated, measuring approximately 3.2 cm, can be seen with pulmonary arterial hypertension. Bones and soft tissues: There is scoliosis, osteopenia, and multilevel degenerative change seen within the thoracic spine. There is bilateral shoulder DJD. Vacuum disc phenomena is seen at multiple levels. Upper abdomen: There are left renal parapelvic cysts. Cortical cyst seen within upper pole of the left kidney. Other left renal cysts are also seen, which have dependent calcification, suggesting milk of calcium. Nonspecific wall thickening of the stomach likely relates to underdistention. There are prominent, less than 1 cm abdominal lymph nodes, likely reactive. There is colonic diverticulosis. ASSESSMENT/PLAN: 1. Asthma with COPD with exacerbation (HCC) - ICD9: 493.22, ICD10: J44.1, J45.901 (primary diagnosis) Treat with 7-day course of Doxycycline and Prednisone burst. Continue Symbicort with as needed Albuterol. - PREDNISONE 20 MG TABLET - DOXYCYCLINE HYCLATE 100 MG TABLET 2. Lung nodules - ICD9: 793.19, ICD10: R91.[address] chest with patient. 3. Former cigarette smoker - ICD9: V15.82, ICD10: Z87.891 Former [id number] smoking having quit in 1990 without sequelae of significant COPD or emphysema. Continue abstinence. Does not qualify for lung cancer screening with LDCT Portions of this documentation were copied and pasted from previous office visit notes in order to provide a cohesive continuity of the history. The note has been reviewed and edited and updated as necessary. Samaria Lazcano PA-C documented in this encounterCity Hospital06-07-2023 History of Present illness Narrative* Adriel Vides RN - 12/22/2022 10:33 AM EDT [facility] Telephonic Outreach Provider Action/FYI Contacted for: Routine Telephonic Outreach Contact made with patient: No, left message. Adriel Vides RN December 22, 2022 3:55 PM documented in this encounterCity Hospital05-15-2023 NoteHNO ID: [id number] Author: CLARA Dunham Service: Nuclear Medicine Author Type: Technologist Type: Progress Notes Filed: 11/29/2022 10:21 AM Note Text: RADIOLOGY SERVICE PROGRESS NOTE SERVICE DATE: 11/29/2022 SERVICE TIME: 10:20 AM PATIENT IDENTITY VERIFICATION COMPLETED USING TWO (2) STANDARD IDENTIFIERS: Name and Date of confirmed by patient verbally and Name and Date of confirmed by identification band FALL SCREENING: Has the patient had 2 falls in the last year or 1 fall with injury or currently using an Ambulatory Assistive Device (Walker, Cane, Wheelchair, Crutches, etc.)? Yes, Patient High Risk for Falls What interventions were put in place to prevent falls during this visit? Instructed Patient to Call for Help if Needed and Increased Observations by Caregivers PATIENT GENDER DATA: .male ALLERGIES: Reviewed and unchanged MEDICATIONS REVIEWED: Not applicable PATIENT RELEVANT IMPLANT DATA REVIEWED: Not Applicable CREATININE: Creatinine Date Value Ref Range Status 05/20/2022 1.13 0.73 - 1.22 mg/dL Final 12/01/2021 1.16 0.73 - 1.22 mg/dL Final 05/12/2021 1.23 (H) 0.73 - 1.22 mg/dL Final Estimated Glomerular Filtration Rate Date Value Ref Range Status 05/20/2022 64 >=60 mL/min/1.73m? Final Comment: Estimated Glomerular Filtration Rate (eGFR) is calculated using the 2020 CKD-EPI creatinine equation. This equation utilizes serum creatinine, sex, and age as parameters. The creatinine assay has traceable calibration to isotope dilution-mass spectrometry. Refer to KDIGO guidelines for clinical interpretation. In patients with unstable renal function, e.g. those with acute kidney injury, the eGFR may not accurately reflect actual GFR. eGFR- Date Value Ref Range Status 05/12/2021 >60 Final P.O.C.T. RESULTS: N/A November 29, [address] PERFORMED: No IV SITE: Ambulatory: A peripheral IV was started in the Right antecubital site with a Angio cath: 22 gauge. POST EXAM PIV STATUS: Discontinued PROCEDURE TYPE: ME Stress: 12.4 mCi [id number] was administered IV for Rest Imaging at 09:33 by . 33.7 mCi Hu00j-Ipsgpyh was administered IV for Stress Imaging at 10:19 by . PATIENT DISCHARGED TO: Ambulatory patient, left ME department area. A Diagnostic radioactive procedure has taken place, with no further precautions necessary other than routine body substance precautions. More information regarding radiation safety can be found using this link: [email or web address] SIGNATURE: CLARA Dunham PATIENT NAME: Paco Whitney DATE: November 29, 2022 TIME: 10:20 AM [phone] History of Present illness Narrative* Juan Woodruff, CT - 11/29/2022 9:30 AM EDT RADIOLOGY SERVICE PROGRESS NOTE SERVICE DATE: 11/29/2022 SERVICE TIME: 10:20 AM PATIENT IDENTITY VERIFICATION COMPLETED USING TWO (2) STANDARD IDENTIFIERS: Name and Date of confirmed by patient verbally and Name and Date of confirmed by identification band FALL SCREENING: Has the patient had 2 falls in the last year or 1 fall with injury or currently using an Ambulatory Assistive Device (Walker, Cane, Wheelchair, Crutches, etc.)? Yes, Patient High Riskfor Falls What interventions were put in place to prevent falls during this visit? Instructed Patient to Callfor Help if Needed and Increased Observations by Caregivers PATIENT GENDER DATA: .male ALLERGIES: Reviewed and unchanged MEDICATIONS REVIEWED: Not applicable PATIENT RELEVANT IMPLANT DATA REVIEWED: Not Applicable CREATININE: Creatinine Date Value Ref Range Status 05/20/2022 1.13 0.73 - 1.22 mg/dL Final 12/01/2021 1.16 0.73 - 1.22 mg/dL Final 05/12/2021 1.23 (H) 0.73 - 1.22 mg/dL Final Estimated Glomerular Filtration Rate Date Value Ref Range Status 05/20/2022 64 >=60 mL/min/1.73m Final Comment: Estimated Glomerular Filtration Rate (eGFR) is calculated using the 2020 CKD-EPI creatinine equation. This equation utilizes serum creatinine, sex, and age as parameters. The creatinine assay has traceable calibration to isotope dilution- mass spectrometry. Refer to KDIGO guidelines for clinical interpretation. In patients with unstable renal function, e.g. those with acute kidney injury, the eGFRmay not accurately reflect actual GFR. eGFR- Date Value Ref Range Status 05/12/2021 >60 Final P.O.C.T. RESULTS: N/A November 29, [address] PERFORMED: No IV SITE: Ambulatory: A peripheral IV was started in the Right antecubital site with a Angio cath: 22 gauge. POST EXAM PIV STATUS: Discontinued PROCEDURE TYPE: NM Stress: 12.4 mCi Jp64h-Jhlyhit was administered IV for Rest Imaging at 09:33 by . 33.7 mCi Jn10j-Zmuqzxs was administered IV for Stress Imaging at 10:19 by . PATIENT DISCHARGED TO: Ambulatory patient, left ME department area. A Diagnostic radioactive procedure has taken place, with no further precautions necessary other than routine body substance precautions. More information regarding radiation safety can be found usingthis link: [email or web address]%20Nuclear%20Medicine%[email or web address] SIGNATURE: CLARA Dunham PATIENT NAME: Paco Whitney DATE: November 29, 2022 TIME: 10:20 AM PAGER/CONTACT #: documented in this encounterCity Hospital05-12-2023 Miscellaneous Notes* Telephone Encounter - Tosha Fernando RN - 11/26/2022 2:33 PM EDT Spoke with patient regarding reminder for stress test on Tuesday and given instructions documented in this encounterCity Hospital05-11-2023 Miscellaneous Notes* Telephone Encounter - Clarice Murillo MD - 11/25/2022 4:14 PM EDT OK to refill as ordered Clarice Murillo MD * Telephone Encounter - Erin Garcia MA - 11/25/2022 1:07 PM EDT Patient has been identified by name and date of : Yes Requested Prescriptions Pending Prescriptions Disp Refills ramipril (ALTACE) 10 mg capsule 90 capsule 3 Sig: Take 1 capsule by mouth once daily. RX INSTRUCTIONS: Patient aware RX will be sent to pharmacy. No need to notify patient. Erin Garcia MA Rayo 05/2022 Nov 11/2022 Last refill: 11/2021 * Telephone Encounter - Monet Santiago - 11/25/2022 12:06 PM EDT Patient has been identified by name and date of : Yes Last office visit in this department: Visit date not found RX INSTRUCTIONS: Patient aware RX will be sent to pharmacy. No need to notify patient. Patient phones requesting refills as follows: Requested Prescriptions Pending Prescriptions Disp Refills ramipril (ALTACE) 10 mg capsule 90 capsule 3 Sig: Take 1 capsule by mouth once daily. Please review and advise. Monet Santiago documented in this encounterCity Hospital05-05-2023 History of Present illness Narrative* Adriel Vides RN - 11/19/2022 10:42 AM EDT [facility] Telephonic Outreach Provider Action/FYI Patient currently working through clearance evaluation for potential candidate for EVAR (endovascular aortic aneurysm repair) with PERLA Coil embolization of right internal iliac artery at some point as well Would need pre op cardiac evaluation. OK per vascular has upcoming stress test 11/29. Very nice gentlemen. Disucssed follow up with PCP 12/06 Contacted for: Routine Telephonic Outreach Contact made with patient: Yes Patient identified by name and date of . Discussed care with patient Are you experiencing any new or worsening symptoms you need to talk about today? No Disease Specific Do you check your blood pressure at home? No Do you have new or worsening shortness of breath with activity? No Do you have new or worsening cough? No Do you have new or worsening wheezing? No Do you need to use your rescue (Albuterol) inhaler or nebulizer more often than normal? No Based on children's attendant, the following disposition is advised: Symptoms present, not severe. Routed to: No Action Needed GEOFF Education Provided this Outreach: No Adriel Vides RN November 19, 2022 4:34 PM documented in this encounterCity Hospital04-27-2023 History of Present illness Narrative* Chalino Valdez DO - 11/11/2022 12:29 PM EDT Images from the original note were not included. [facility] [place] [facility] LOCATION: [address] [place] [address], [place] [address] ESTABLISHED PATIENT PATIENT INFO: Paco Whitney 87 year old Chief Complaint: Renal Mass HPI F/u for renal mass surveillance. Denies gross hematuria or difficulty with urination. Has AAA that has increased in size. Long discussion on continued surveillance vs surgery (radical vs partial) vs cryo. Patient not interested in surgery and would prefer to continue surveillance. 1-Duration: 2018 2-Location: kidney 3-Severity: N/A 4-Quality: Not applicable 5-Context: N/A 6-Timing: N/A 7-Modifying factors: No treatment prior to referral 8-Associated signs & symptoms: no additional symptoms No question data found. PATHOLOGY: none LAB: WBC (k/uL) Date Value 05/21/2019 6.56 RBC (m/uL) Date Value 05/21/2019 4.82 Hemoglobin (g/dL) Date Value 05/21/2019 15.2 Hematocrit (%) Date Value 05/21/2019 46.5 MCV (fL) Date Value 05/21/2019 96.5 MCH (pG) Date Value 05/21/2019 31.5 MCHC (g/dL) Date Value 05/21/2019 32.7 RDW-CV (%) Date Value 05/21/2019 13.2 Platelet Count (k/uL) Date Value 05/21/2019 206 MPV (fL) Date Value 05/21/2019 9.8 Neut% (%) Date Value 04/16/2019 64.1 Lymph% (%) Date Value 04/16/2019 21.3 Pitt% (%) Date Value 04/16/2019 10.5 Eosin% (%) Date Value 04/16/2019 3.0 Baso% (%) Date Value 04/16/2019 1.1 Abs Neut (ANC) (k/uL) Date Value 04/16/2019 5.13 Abs Pitt (k/uL) Date Value 04/16/2019 0.84 Abs Eosin (k/uL) Date Value 04/16/2019 0.24 Abs Baso (k/uL) Date Value 04/16/2019 0.09 Creatinine Date Value Ref Range Status 05/20/2022 1.13 0.73 - 1.22 mg/dL Final 12/01/2021 1.16 0.73 - 1.22 mg/dL Final 05/12/2021 1.23 (H) 0.73 - 1.22 mg/dL Final 11/14/2020 1.16 0.73 - 1.22 mg/dL Final PSA (ng/mL) Date Value 10/29/2014 0.55 05/23/2012 0.63 URINE POC GLUCOSE UA (POCT) Negative 06/28/2019 BILIRUBIN UA (POCT) Negative 06/28/2019 KETONE UA (POCT) Negative 06/28/2019 SPECIFIC GRAVITY UA (POCT) 1.020 06/28/2019 HEMOGLOBIN/BLOOD UA (POCT) Negative 06/28/2019 PH UA (POCT) 6.5 06/28/2019 PROTEIN UA (POCT) Negative 06/28/2019 UROBILINOGEN UA (POCT) 1.0 06/28/2019 NITRITE UA (POCT) Negative 06/28/2019 LEUKOCYTES UA (POCT) Negative 06/28/2019 COLOR UA (POCT) Yellow 06/28/2019 CLARITY UA (POCT) Clear 06/28/2019 IMAGING: CT Scan: IMPRESSION: Stable CT kidneys. Exophytic right mid lateral 2.8 x 2.6 cm renal neoplasm which is unchanged in size and enhancement pattern. Overall stable cortical simple and hyperdense cystic lesions which are unchanged in size and configuration and demonstrate no evidence of enhancement. Bilateral parapelvic cysts. Stable right lower lobe pulmonary nodule. Stable infrarenal abdominal aortic aneurysm. Nonobstructive bowel gas pattern. Multiple diverticula are present compatible with diverticulosis. There is no wall thickening or pericolonic inflammatory change to suggest diverticulitis.. I have independently reviewed films and my findings are the same. ALLERGIES: ALLERGIES Allergen Reactions [facility]] [Other] Other: See Comments Rhabdomyolysis. Demerol [Meperidine* Mental Status Change Gave too high of dose Contrast Dye [Iodin* Intolerance pt needs to be oral hydrated after injection,..patient STATES HE IS NOT ALLERGIC TO IV DYE.. Lopid [Gemfibrozil] Other: See Comments Myalgia. MEDICATIONS: cholecalciferol (VITAMIN D3) 1,000 unit tab tablet Cholecalciferol (Vit D3) Active 3000 UNIT TWICE A DAY November 23, 2014 8:06am budesonide-formoterol (SYMBICORT) 160-4.5 mcg/actuation inhaler Budesonide/Formoterol 160/4.5 Active 2 PUFF TWICE A DAY June 28, 2018 4:04pm tamsulosin (FLOMAX) 0.4 mg TAKE ONE CAPSULE BY MOUTH ONCE DAILY AT BEDTIME pantoprazole DR (PROTONIX) 40 mg tablet Take 1 tablet by mouth daily before breakfast. Take on empty stomach, 1/2 hr before meal. budesonide-formoterol (SYMBICORT) 160-4.5 mcg/actuation inhaler Inhale 2 Puffs as instructed twice daily. guaiFENesin (MUCINEX) 600 mg 12 hr tablet Take 2 tablets by mouth twice daily. (Patient taking differently: Take 1,200 mg by mouth twice daily. As needed) gabapentin (NEURONTIN) 300 mg capsule Take 1 capsule by mouth three times daily for 180 days. Fenofibrate (LOFIBRA) 160 mg tablet Take 1 tablet by mouth once daily. meclizine (ANTIVERT) 25 mg tab Take 1 tablet by mouth every 6 hours as needed. FOR DIZZINESS clotrimazole-betamethasone (LOTRISONE) cream Apply 1 application to affected area twice daily. (Patient taking differently: Apply 1 application to affected area twice daily. As needed) ramipril (ALTACE) 10 mg capsule Take 1 capsule by mouth once daily. aspirin 81 mg cap Take 1 capsule by mouth once daily. aniknami-gbvxcqhxl-rnhtrudgqylzkv (CORTISPORIN) 3.5-10,000-1 mg/mL-unit/mL-% otic suspension Use 4 Drops in the ears four times daily. x 1 week albuterol HFA (VENTOLIN HFA) 90 mcg/actuation inhaler Inhale 2 Puffs as instructed every 4 hours asneeded for Wheezing/Shortness of Breath. SYMBICORT 80-4.5 mcg/actuation inhaler Inhale 2 Puffs as instructed twice daily. (Patient not taking: Reported on 10/27/2022) Does the patient take any herbal medications?: No HISTORIES PAST MEDICAL HISTORY Diagnosis Date Chronic airway obstruction, not elsewhere classified Diverticulitis 12/16/2014 Diverticulosis of colon with hemorrhage Essential hypertension, benign GERD (gastroesophageal reflux disease) History of eye surgery 03/29/2011 Right eye Other and unspecified hyperlipidemia Rectal bleeding 12/16/2014 Retinal detachment with retinal defect, unspecified RIGHT EYE, WITH LENSE Rhabdomyolysis 07/18/2003 had as a result of [facility] Unspecified asthma(493.90) Unspecified cause of encephalitis, myelitis, 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 HEAD & NECK: No blurred vision or Sjogren's syndrome CARDIOVASCULAR: NO CHEST PAIN, PALPITATIONS, ANKLE EDEMA RESPIRATORY: No chronic cough, wheezing, dyspnea, hemoptysis. MUSCULOSKELETAL: NO CHRONIC BACK PAIN, ARTHRITIS, CHRONIC NECK PAIN SKIN: NO VARICOSE VEINS, RASH, ABNORMAL ITCHING BLOOD/LYMPHATIC: No easy bleeding, easy bruising, transfusion Hx NEUROLOGICAL: NO HEADACHES, NUMBNESS, SEIZURES, STROKE PSYCHIATRIC: No depression or inordinate anxiety The remainder of the ROS was negative. PHYSICAL EXAMINATION Ht 167.6 cm (5' 6) Wt 96.2 kg (212 lb) BMI 34.22 kg/m General appearance: Well appearing, alert, in no acute distress and well- hydrated, well nourished Skin: Skin color, texture, turgor normal, no suspicious rashes or lesions Head: Normocephalic, no masses, lesions, tenderness or abnormalities Abdomen: Normal abdominal exam, Abdomen soft, non-tender. Bowel sounds normal. No masses, organomegaly Genitourinary: MALE EXAM: Exam NOT Indicated PVR: NA IMPRESSION/PLAN: Right 2.8 cm x 2.6 cm Renal Mass on surveillance since 2019. Minimal increase in size, around 3 cm, patient would prefer to still follow Continue surveillance. ANNMAREI in 6-12 months. 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 Discussed treatment options including radical Nx, Partial Nx, cryo I spent 30 minutes in the visit, with more than 50% of the total [id number] time of the visit in counseling / coordination of care. Chalino Valdez DO MBA documented in this encounterCity Hospital04-13-2023 Miscellaneous Notes* Telephone Encounter - Charis Callahanmaya - 10/28/2022 9:34 AM EDT Patient calling with questions after OV on 10/27/22. Reviewed the plan from OV note from Patient plans to see urologist in a few weeks and will call the office if he decides to proceed with the procedure documented in this encounterCity Hospital04-12-2023 History of Present illness Narrative* Eladio Pablo MD - 10/27/2022 2:45 PM EDT Images from the original note were not included. [facility] [place] DEPARTMENT OF VASCULAR SURGERY VASCULAR SURGERY INITIAL CONSULT/ H+P SERVICE DATE: 10/27/2022 SERVICE TIME: 2:47 PM PRIMARY CARE PHYSICIAN: Clarice Murillo MD REFERRING PROVIDER: Karla Campuzano [address] [place] [id number] Consult requested for an opinion regarding the evaluation and treatment of the above. My final impression and recommendations will be communicated back to the requesting physician by way of the shared medical record or letter via US mail. CHIEF COMPLAINT/HISTORY OF PRESENT ILLNESS: Chief Complaint: Abdominal aortic aneurysm History of Present Illness: Paco Whitney is a 87 year old male Patient presents for evaluation of abdominal aortic aneurysm Abdominal aortic aneurysm grown to 5.5 cm ap dimension on sagital views, 3cm left common iliac artery aneurysm, 3cm right internal iliac artery aneurysm No claudication- walking limited by knee arthritus PAST MEDICAL/SURGICAL/FAMILY/SOCIAL HISTORY PAST MEDICAL HISTORY Diagnosis Date Chronic airway obstruction, not elsewhere classified Diverticulitis 12/16/2014 Diverticulosis of colon with hemorrhage Essential hypertension, benign GERD (gastroesophageal reflux disease) History of eye surgery 03/29/2011 Right eye Other and unspecified hyperlipidemia Rectal bleeding 12/16/2014 Retinal detachment with retinal defect, unspecified RIGHT EYE, WITH LENSE Rhabdomyolysis 07/18/2003 had as a result of [facility] Unspecified asthma(493.90) Unspecified cause of encephalitis, myelitis, 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 Romeo RPR RETINAL DTCHMNT DRG SUBRETINAL FLUID PC 2003 Laser repair retinal detach, right eye TONSILLECTOMY PRIMARY/SECONDARY <AGE 12 Tonsillectomy VASECTOMY UNI/BI SPX W/POSTOP SEMEN EXAMS 1964 FAMILY HISTORY Problem Relation Age of Onset Hypertension Mother other (Parkinsons disease) Mother Heart Father Heart Brother Heart surgery Cancer Brother of liver. Diabetes Brother Heart disease Son No Family History No Family History No COPD, lung cancer. SOCIAL HISTORY Social History Tobacco Use Smoking status: Former Packs/day: 2.00 Years: 32.00 Pack years: 64.00 Types: Cigarettes Start date: 1959 Quit date: 10/30/1990 Years since quittin.0 Smokeless tobacco: Never Tobacco comments: Multiple 4-5 year quits during smoking career. Vaping Use Vaping Use: Never used Substance Use Topics Alcohol use: No Drug use: No MEDICATIONS/ALLERGIES Current Outpatient Medications Medication Sig Dispense Refill cholecalciferol (VITAMIN D3) 1,000 unit tab tablet Cholecalciferol (Vit D3) Active 3000 UNIT TWICE A DAY November 23, 2014 8:06am budesonide-formoterol (SYMBICORT) 160-4.5 mcg/actuation inhaler Budesonide/Formoterol 160/4.5 Active 2 PUFF TWICE A DAY June 28, 2018 4:04pm tamsulosin (FLOMAX) 0.4 mg TAKE ONE CAPSULE BY MOUTH ONCE DAILY AT BEDTIME [address] (PROTONIX) 40 mg tablet Take 1 tablet by mouth daily before breakfast. Take on empty stomach, 1/2 hr before meal. 90 tablet 3 budesonide-formoterol (SYMBICORT) 160-4.5 mcg/actuation inhaler Inhale 2 Puffs as instructed twice daily. 1 Each 5 guaiFENesin (MUCINEX) 600 mg 12 hr tablet Take 2 tablets by mouth twice daily. (Patient taking differently: Take 1,200 mg by mouth twice daily. As needed) 20 tablet 0 gabapentin (NEURONTIN) 300 mg capsule Take 1 capsule by mouth three times daily for 180 days. 270 capsule 1 Fenofibrate (LOFIBRA) 160 mg tablet Take 1 tablet by mouth once daily. 30 tablet 11 meclizine (ANTIVERT) 25 mg tab Take 1 tablet by mouth every 6 hours as needed. FOR DIZZINESS 30 tablet 5 ramipril (ALTACE) 10 mg capsule Take 1 capsule by mouth once daily. 90 capsule 3 aspirin 81 mg cap Take 1 capsule by mouth once daily. faahdmki-qgfsegmox-vwxtrybpzrvkik (CORTISPORIN) 3.5-10,000-1 mg/mL-unit/mL-% otic suspension Use 4 Drops in the ears four times daily. x 1 week 10 mL 2 albuterol HFA (VENTOLIN HFA) 90 mcg/actuation inhaler Inhale 2 Puffs as instructed every 4 hours asneeded for Wheezing/Shortness of Breath. 18 g 11 SYMBICORT 80-4.5 mcg/actuation inhaler Inhale 2 Puffs as instructed twice daily. (Patient not taking: Reported on 10/27/2022) 10.2 g 11 clotrimazole-betamethasone (LOTRISONE) cream Apply 1 application to affected area twice daily. (Patient taking differently: Apply 1 application to affected area twice daily. As needed) 30 g 1 No current facility-administered medications for this visit. ALLERGIES Allergen Reactions [facility]] [Other] Other: See Comments Rhabdomyolysis. Demerol [Meperidine* Mental Status Change Gave too high of dose Contrast Dye [Iodin* Intolerance pt needs to be oral hydrated after injection,..patient STATES HE IS NOT ALLERGIC TO IV DYE.. Lopid [Gemfibrozil] Other: See Comments Myalgia. REVIEW OF SYSTEMS Constitutional: No weight loss, malaise or fevers., Negative for Malaise, significant weight loss, and fever HEENT: Negative for frequent or significant headaches, No changes in hearing or vision, no nose bleeds or other nasal problems, Negative for frequent or significant headaches, significant change in vision, significant vision problems, nasal discharge or nose bleeds, sore throat, and difficulty swallowing Respiratory: Negative for cough, wheezing, shortness of breath, and chest pain Cardiovascular: Negative for chest pain, palpitations, orthopnea, and paroxysmal nocturnal dyspnea Gatrointestinal: Negative for abdominal discomfort, blood in stools or black stools or change in bowel habits Genitourinary: No history of dysuria, frequency, or incontinence Musculoskeletal: Negative for joint pain or swelling, back pain or muscle pain Endocrine: Negative for cold or heat intolerance, polyuria, polydipsia and goiter Hematology/Lymphatic: Negative for prolonged bleeding, bruising easily or swollen nodes Neurologic: No history or headaches, syncope, paralysis, seizures or tremors Integumentary: Negative for lesions, rash, and itching. PHYSICAL EXAM General: Alert and oriented, No acute distress, Healthy appearance, good historian. Integumentary: Normal color, no rash, no lesions. HEENT: EOM, pupils equal and round, no lesions or deformities. Cardiovascular: Normal S1 & S2, no murmurs Pulse regular. Lungs: Normal breath sounds, no wheezes or crackles., No chest deformities or chest wall tenderness. Abdomen: Soft, non-tender, no rigidity., No masses. Extremities: No deformity, joint swelling or clubbing. Neurological: Normal cognition and motor skills. Normal affect. No weakness or sensory deficit. 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 Appt was changed to see Dr. Pablo on 10/27 this week. He's also scheduled to see Uro later this month. Will continue to keep these appt's. He's noting some left sided back pain. Korin Calixto Ma * Telephone Encounter - Clarice Murillo MD - 10/25/2022 2:[address] scan showed in increase in the size of the aortic aneurysm (from 4.9 cm in 2020 to 5.8 cm now); so he should keep the appointment that is already scheduled with Vascular Surgery next week to see what they recommend. Clarice Murillo MD * Telephone Encounter - Niki Grimes LPN - 10/25/2022 2:16 PM EDT Pt calling to check on status of message. Niki Grimes LPN * Telephone Encounter - Sofie Crain LPN - 10/22/2022 1:19 PM EDT Pt called and wanted you to look at the CT done earlier. There was an incidental finding and pt reports he was to call his family doctor. Please advise pt. Sofie Crain LPN documented in this encounterCity Hospital04-06-2023 History of Present illness Narrative* Adriel Vides RN - 10/21/2022 8:39 AM EDT INSIGHT CDM TELEPHONIC OUTREACH Provider Action/FYI: Patient's spouse answered. They are at [facility], needed to stop and pay a bill. Reports overall he is doing well. COPD- Will follow up next week Contact made with patient: Yes Patient identified by name and . Discussed care with patient It s nice talking to you again. As a reminder, this is our bi-weekly check-in where I will be asking you questions about your health. This will only take a few minutes of your time. Is this a good time? No - today is not a good time for the patient. Agree on a call back time and connect with the patient then. If applicable, update the next patient outreach date using the Track Pt Outreach. End outreach documented in this encounterCity Hospital03-29-2023 History of Present illness Narrative* Suzie Hickman RT(R) - 10/13/2022 11:20 AM EDT Radiology Service Progress Note PATIENT NAME: Paco Whitney DATE OF SERVICE: October 13, 2022 TIME: 12:11 PM PATIENT IDENTITY VERIFICATION COMPLETED USING TWO (2) IDENTIFIERS: Name and Date of confirmedby patient verbally. FALL SCREENING: Has the patient had 2 falls in the last year or 1 fall with injury or currently using an Ambulatory Assistive Device (Walker, Cane, Wheelchair, Crutches, etc.)? No PATIENT GENDER DATA: Male PATIENT RELEVANT IMPLANT DATA REVIEWED: Yes RADIOLOGY DEPARTMENT: CT; Exam(s) Completed: Abdomen/Pelvis PERIPHERAL IV DATA: Not applicable SIGNED BY: RT Anatoliy(R) October 13, 2022 12:11 PM documented in this encounterCity Hospital03-27-2023 History of Present illness Narrative* Fabio Noriega MD - 10/11/2022 10:29 AM EDTAssociated Order(s): Large Joint Arthro/Inj: bilateral glenohumerals Post-Procedure Diagnose(s): Acute pain of both shoulders; Chronic pain of both shoulders; Primary osteoarthritis of both shoulders Patient presents with: Right Shoulder - Pain, New Left Shoulder - Pain, New Fabio Noriega MD Department of Orthopaedics Orthopaedics [address] [facility] [address] Dept: [phone] Dept October 11, 2022 CHIEF COMPLAINT: Pain and New of the Right Shoulder and Pain and New of the Left Shoulder HPI AMB ROOMING INTAKE FLOWSHEET DATA Pain Pain Level: 7 Pain Location: Shoulder-Left Description: Dull Duration Units: Years Frequency: Continuous Intervention/Comfort measure: Medication-tylenol Pt complains of bilateral shoulder pain for many years. States left shoulder is worse than the right. It is difficulty for patient to sleep due to the pain. ASSESSMENT: M25.511, G89.29, M25.512 Chronic pain of both shoulders (primary encounter diagnosis) M25.511, M25.512 Acute pain of both shoulders M19.011, M19.012 Primary osteoarthritis of both shoulders PLAN: We had a lengthy discussion about his shoulders, rotator cuff arthropathy. He would like to try some injections today. Possible surgical candidate down the line if necessary. FOLLOW UP INSTRUCTIONS: As needed Mr. Paco Whitney was advised as to contrast therapies and/or to take analgesics/anti-inflammatories as needed and all contraindications were reviewed. OBJECTIVE: Mr. Paco Whitney is a pleasant 87 year old in no apparent distress. Gen:There were no vitals taken for this visit. nl development, non obese, no deformities ENT: Normocephalic, normal hearing, moist mucosa CV: Pulses:Radial= 2+ and symmetric, capillary refill < 2 secs, no peripheral edema/varicosities Skin: no rash, bruising or lesions. Good turgor. Psych: cooperative and appropriate, alert and oriented x 3, good mood and affect. Musculoskeletal: Limited forward elevation of both shoulders consistent with rotator cuff pathology. Crepitance in the left shoulder at the glenohumeral joint greater than the right. In addition to the comprehensive evaluation, assessment and plan outlined above, and as a distinct and separate element to the visit today, we have made the determination to proceed with an injectionto aid in the management of the patient's condition. We discussed the risks, benefits, alternativesand expected outcomes of this injection in detail, and the patient agreed to proceed. The procedurewas performed as detailed below. Large Joint Arthro/Inj: bilateral glenohumerals Informed Consent Consent Obtained: Verbal [place] Protocol A moment to CARE was completed. SIGN IN Personnel directly involved with the procedure wore the appropriate PPE. Special Equipment: N/A Patient/Surrogate Stated/Verified: Patient name, Date of , Relevant allergies and Intended procedure TIME OUT Intended patient and procedure match the source document(s). Consent documented and matches the intended procedure. Relevant labs, photos, and/or imaging studies have been reviewed. Correct side/site marked and visible. Medications required for procedure verified. No fire risk assessment and interventions applicable. No implant(s) inserted. 10/11/2022 11:08 AM The procedure site was prepped in the usual sterile fashion. Site: bilateral glenohumerals Medications (Right): 6 mg betamethasone acetate-betamethasone sodium phosphate 6 mg/mL Medications (Left): 6 mg betamethasone acetate-betamethasone sodium phosphate 6 mg/mL Anesthetics (Right): 4 mL lidocaine (PF) 10 mg/mL (1 %) Anesthetics (Left): 4 mL lidocaine (PF) 10 mg/mL (1 %) Outcome: Tolerated well, no immediate complications Post-injection instructions were reviewed with the patient and the patient voiced understanding of these instructions. SIGN OUT All instruments, equipment, possible retained foreign bodies accounted for. IMAGING: IMPRESSION: Severe bilateral glenohumeral osteoarthritis and bilateral subacromial subdeltoid calcific bursitis. Reefer Engineer: PENNY Transcribe Date/Time: Oct 13 2022 4:47P Dictated by : EBONI BUTTS DO This examination was interpreted and the report reviewed and electronically signed by: EBONI BUTTS DO on Oct 13 2022 4:51PM EST Results-Findings * * *Final Report* * * DATE OF EXAM: Oct 11 2022 10:35AM WRX [id number] - XR SHLDR >/=3V AP/TIA AP/OTHR RT / PROCEDURE REASON: multiple diagnoses * * * * Physician Interpretation * * * * EXAMINATION: XR SHLDR >/=3V AP/TIA AP/OTHR LT, XR SHLDR >/=3V AP/TIA AP/OTHR RT PATIENT/TECHNOLOGIST PROVIDED HISTORY: Chronic bilateral shoulder pain CLINICAL INFORMATION: 87 years old Male with Bilateral shoulder pain, unspecified chronicity TECHNIQUE: XR SHLDR >/=3V AP/TIA AP/OTHR LT, XR SHLDR >/=3V AP/TIA AP/OTHR RT Laterality: Bilateral Number of different views (projections): 3 COMPARISON: None RESULT: Severe bilateral glenohumeral osteoarthritis with acqp-qw-uvwp contact. Mild degenerative change bilateral acromioclavicular joints. Acromiohumeral intervals appear maintained with subacromial spurs. Faint calcification bilateral subacromial subdeltoid regions likely subacromial subdeltoid calcific bursitis. Marked degenerative changes in the cervicothoracic spine. No fracture. 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 Romeo RPR RETINAL DTCHMNT DRG SUBRETINAL FLUID PC 2003 Laser repair retinal detach, right eye TONSILLECTOMY PRIMARY/SECONDARY <AGE 14 Tonsillectomy VASECTOMY UNI/BI SPX W/POSTOP SEMEN EXAMS 1964 Family History: FAMILY HISTORY Problem Relation Age of Onset Hypertension Mother other (Parkinsons disease) Mother Heart Father Heart Brother Heart surgery Cancer Brother of liver. Diabetes Brother Heart disease Son No Family History No Family History No COPD, lung cancer. Social History: Social History Tobacco Use Smoking status: Former Packs/day: 2.00 Years: 32.00 Pack years: 64.00 Types: Cigarettes Start date: 1959 Quit date: 10/30/1990 Years since quittin.9 Smokeless tobacco: Never Tobacco comments: Multiple 4-5 year quits during smoking career. Vaping Use Vaping Use: Never used Substance Use Topics Alcohol use: No Drug use: No Medications: Current Outpatient Medications Medication Sig cholecalciferol (VITAMIN D3) 1,000 unit tab tablet Cholecalciferol (Vit D3) Active 3000 UNIT TWICE A DAY November 23, 2014 8:06am tamsulosin (FLOMAX) 0.4 mg TAKE ONE CAPSULE BY MOUTH ONCE DAILY AT BEDTIME pantoprazole DR (PROTONIX) 40 mg tablet Take 1 tablet by mouth daily before breakfast. Take on empty stomach, 1/2 hr before meal. budesonide-formoterol (SYMBICORT) 160-4.5 mcg/actuation inhaler Inhale 2 Puffs as instructed twice daily. guaiFENesin (MUCINEX) 600 mg 12 hr tablet Take 2 tablets by mouth twice daily. (Patient taking differently: Take 1,200 mg by mouth twice daily. As needed) gabapentin (NEURONTIN) 300 mg capsule Take 1 capsule by mouth three times daily for 180 days. Fenofibrate (LOFIBRA) 160 mg tablet Take 1 tablet by mouth once daily. meclizine (ANTIVERT) 25 mg tab Take 1 tablet by mouth every 6 hours as needed. FOR DIZZINESS clotrimazole-betamethasone (LOTRISONE) cream Apply 1 application to affected area twice daily. (Patient taking differently: Apply 1 application to affected area twice daily. As needed) ramipril (ALTACE) 10 mg capsule Take 1 capsule by mouth once daily. aspirin 81 mg cap Take 1 capsule by mouth once daily. kqvnesvb-nhlibfdeb-qwqapzsxnfnpmc (CORTISPORIN) 3.5-10,000-1 mg/mL-unit/mL-% otic suspension Use 4 Drops in the ears four times daily. x 1 week albuterol HFA (VENTOLIN HFA) 90 mcg/actuation inhaler Inhale 2 Puffs as instructed every 4 hours asneeded for Wheezing/Shortness of Breath. budesonide-formoterol (SYMBICORT) 160-4.5 mcg/actuation inhaler Budesonide/Formoterol 160/4.5 Active 2 PUFF TWICE A DAY June 28, 2018 4:04pm SYMBICORT 80-4.5 mcg/actuation inhaler Inhale 2 Puffs as instructed twice daily. No current facility-administered medications for this visit. Allergies: Baycolother] [Other], Demerol [Meperidine (Pf)], Contrast Dye [Iodine], and Lopid [Gemfibrozil] ROS: General (negative for fatigue, malaise, weight loss/gain) HEENT (negative for headache, earache, recent vision changes, sinus pain, sore throat) Respiratory (no recent shortness of breath, hemoptysis) CV (negative for chest tightness, palpitations) Musculoskeletal (see HPI) Psych (no depression, anxiety) REFERRING PHYSICIAN: Consultation requested by Karla Richardson for an opinion regarding shoulder pain. My final recommendations will be communicated back to the requesting physician by way of shared Medical record or letter to requesting physician via US mail. Karla Campuzano [address] [facility] [id number] Clarice Murillo MD [address] [facility] [address] Fabio Noriega MD documented in this encounterCity Hospital03-15-2023 Miscellaneous Notes* Telephone Encounter - Jhoan Siegel LPN - 09/29/2022 1:25 PM EDT Patient notified of results, verbalizes understanding of instructions. Jhoan Siegel LPN * Telephone Encounter - Karla Campuzano APRN.CNP - 09/29/2022 12:12 PM EDT Can you please call the patient and let him know that I have placed all the consults he requested. They are good for one year. Please let me know if he has any questions. Thank you. Karla Campuzano APRN.SARAI * Telephone Encounter - Melanie Cruz RN - 09/29/2022 10:50 AM EDT Patient phoned to report the prednisone helped very little for his shoulders. He would like to see Dr. Simpson for an injection. Asking pcp to place referral. Also asking pcp to place referral for him to see urologist, and also vascular, Dr. Nolen. States his priority is to see Dr. Simpson first. documented in this encounterCity Hospital02-20-2023 Instructions* Patient Instructions* Clarice Murillo MD - 09/06/2022 6:51 PM EST Follow up with Dr Nolen, Vascular Surgery, for aneurysm Follow up with Dr Valdez, Urology, for kidney documented in this encounterCity Hospital02-20-2023 History of Present illness Narrative* Clarice Murillo MD - 09/06/2022 6:40 PM EST Chief Complaint Patient presents with: Pain (Shoulder Pain): Bilateral HPI Paco Whitney is a 87 year old male who presents here today for pain. Pt c/o bilateral shoulder pain that have been an issues for several months but worsened. He states he has trouble tucking in the back of his shirt and laying at night. He takes Tylenol for pain. He has trouble picking up a gallon of milk. Limited ROM, difficulty lifting arms up. states he has had some really bad days when he can not do much of anything. Left worse than right; has decreased motion in left. Pain: mario flank pain off and on, mostly with movement. He wonders if he is due for repeat CT to check the renal cysts. No pain with urination. Is taking Gabapentin 100 mg 1 pill TID and Tylenol for neuropathy pain. The increased Gabapentin did help with the neuropathy. Concerned about his aortic aneurysm, wondering if he needs to have another US done. He saw Dr. Nolen in Vascular. Past medical history, appointments, medications, allergies reviewed. 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 Romeo RPR RETINAL DTCHMNT DRG SUBRETINAL FLUID PC 2003 Laser repair retinal detach, right eye TONSILLECTOMY PRIMARY/SECONDARY <AGE 14 Tonsillectomy VASECTOMY UNI/BI SPX W/POSTOP SEMEN EXAMS 1964 Family History FAMILY HISTORY Problem Relation Age of Onset Hypertension Mother other (Parkinsons disease) Mother Heart Father Heart Brother Heart surgery Cancer Brother of liver. Diabetes Brother Heart disease Son No Family History No Family History No COPD, lung cancer. Patient Allergies ALLERGIES Allergen Reactions Baycolother] [Other] Other: See Comments Rhabdomyolysis. Demerol [Meperidine* Mental Status Change Gave too high of dose Contrast Dye [Iodin* Intolerance pt needs to be oral hydrated after injection,..patient STATES HE IS NOT ALLERGIC TO IV DYE.. Lopid [Gemfibrozil] Other: See Comments Myalgia. Current Medications Current Outpatient Medications on File Prior to Visit Medication Sig pantoprazole DR (PROTONIX) 40 mg tablet Take 1 tablet by mouth daily before breakfast. Take on empty stomach, 1/2 hr before meal. budesonide-formoterol (SYMBICORT) 160-4.5 mcg/actuation inhaler Inhale 2 Puffs as instructed twice daily. guaiFENesin (MUCINEX) 600 mg 12 hr tablet Take 2 tablets by mouth twice daily. SYMBICORT 80-4.5 mcg/actuation inhaler Inhale 2 Puffs as instructed twice daily. gabapentin (NEURONTIN) 300 mg capsule Take 1 capsule by mouth three times daily for 180 days. Fenofibrate (LOFIBRA) 160 mg tablet Take 1 tablet by mouth once daily. meclizine (ANTIVERT) 25 mg tab Take 1 tablet by mouth every 6 hours as needed. FOR DIZZINESS clotrimazole-betamethasone (LOTRISONE) cream Apply 1 application to affected area twice daily. ramipril (ALTACE) 10 mg capsule Take 1 capsule by mouth once daily. aspirin 81 mg cap Take 1 capsule by mouth once daily. tamsulosin (FLOMAX) 0.4 mg TAKE ONE CAPSULE BY MOUTH ONCE DAILY AT BEDTIME rcxwtrut-mtpbnxptl-jefohxgnwxhuxs (CORTISPORIN) 3.5-10,000-1 mg/mL-unit/mL-% otic suspension Use 4 Drops in the ears four times daily. x 1 week albuterol HFA (VENTOLIN HFA) 90 mcg/actuation inhaler Inhale 2 Puffs as instructed every 4 hours asneeded for Wheezing/Shortness of Breath. No current facility-administered medications on file prior to visit. Social History Social History Tobacco Use Smoking status: Former Packs/day: 2.00 Years: 32.00 Pack years: 64.00 Types: Cigarettes Start date: 1959 Quit date: 10/30/1990 Years since quittin.8 Smokeless tobacco: Never Tobacco comments: Multiple 4-5 year quits during smoking career. Vaping Use Vaping Use: Never used Substance Use Topics Alcohol use: No Drug use: No EXAM: BP 130/78 Pulse 74 Resp 16 Wt 96.3 kg (212 lb 4.8 oz) BMI 34.27 kg/m General Appearance: Well appearing, alert, in no acute distress, well-hydrated, well nourished. andOverweight. Lungs: Lungs clear to auscultation. No wheezing, rhonchi, rales.. Heart: RRR without murmur, gallop, or rubs. No ectopy. Back: tenderness on palpation to right mid to lower back Extremities: mario shoulders; limited ROM left more than right, tenderness on palpation diffusely Health Maintenance List SHINGRIX VACCINE(1 of 2) Never done DTAP,TDAP,TD(1 - Tdap) due on 02/10/2012 COVID-19 VACCINE(4 - Booster for Moderna series) due on 07/28/2021 ADVANCE DIRECTIVE DISCUSSION Never done DEPRESSION ASSESSMENT due on 07/18/2022 DIABETES SCREEN due on 05/20/2025 SPIROMETRY Completed INFLUENZA Completed PNEUMOCOCCAL: 65+ Completed Data reviewed None ASSESSMENT/PLAN: 1. Acute pain of both shoulders - ICD9: 719.41, ICD10: M25.511, M25.512 (primary diagnosis) Start 15 day taper dose of prednisone If not improving refer to Ortho 2. Right renal mass - ICD9: 593.9, ICD10: N28.89 Follow up with urologist 3. Abdominal aortic aneurysm (AAA) without rupture, unspecified part (HCC) - ICD9: 441.4, ICD10: I71.[address] Nolen, Vascular Follow up in November as scheduled. I agree with the Chief Complaint, ROS, and Past Histories independently gathered by the clinical program support specialist and the remaining scribed note accurately describes my personal service to the patient. Medical Decision Making: Problems: Moderate: 1+ chronic illnesses with change Risk: Moderate: Drug management Medical Decision Making Level: 4 - Moderate Clarice Murillo MD The documentation for this note was completed by Marianne Escobar Ma acting as scribe for Clarice Murillo MD. September 06, 2022 6:31 PM. Marianne Escobar Ma documented in this encounterCity Hospital02-16-2023 Miscellaneous Notes* Telephone Encounter - Sid Frank APRN.CNP - 09/02/2022 10:16 AM EST The following approved medication requests have been transmitted electronically. Requested Prescriptions Pending Prescriptions Disp Refills tamsulosin (FLOMAX) 0.4 mg 90 capsule 3 Sig: TAKE ONE CAPSULE BY MOUTH ONCE DAILY AT BEDTIME Sid Frank APRN.CNP * Telephone Encounter - Samaria Fajardo - 09/02/2022 8:32 AM EST Patient has been identified by name and date of : Yes Last office visit in this department: 2022 RX INSTRUCTIONS: Patient aware RX will be sent to pharmacy. No need to notify patient. Patient phones requesting refills as follows: Requested Prescriptions Pending Prescriptions Disp Refills tamsulosin (FLOMAX) 0.4 mg 90 capsule 3 Sig: TAKE ONE CAPSULE BY MOUTH ONCE DAILY AT BEDTIME Please review and advise. Samaria Fajardo documented in this encounterCity Hospital02-02-2023 History of Present illness Narrative* Adriel Vides RN - 08/19/2022 12:37 PM EST INSIGHT CDM TELEPHONIC OUTREACH Provider Action/FYI: Doing well.olivia Has PCP appointment on 09/06 to discuss his degenerative arthritis. Wants to discuss kidneys-make sure the pain he is having is his arthritis and no concerns with his kidney. Reports urinating ok, good amounts, stream good. Breathing stable rarely using albuterol Using Symbicort as directed. Has constant wheeze. Occassionally cough is productive. Contact made with patient: Yes Patient identified by name and . Discussed care with patient It s nice talking to you again. As a reminder, this is our bi-weekly check-in where I will be asking you questions about your health. This will only take a few minutes of your time. Is this a good time? Yes Symptoms What Chronic Disease(s) does the patient have: COPD Do you check your blood pressures at home? No Do you have new or worse shortness of breath with activity? No Do you have new or worsening cough? No Do you have new or worsening wheezing? No Do you need to use your rescue (Albuterol) inhaler or nebulizer more often than normal? No Are you having any other symptoms that your PCP needs to know about? No Symptoms: none Symptom Escalation GEOFF Education Ordered -: No The patient required an escalation for symptom(s)? No Medications Do you have any questions about taking your medication or which medications you should be on? No Do you need any medication refills at this time, including any of the medications you might take only when needed? No Social We would like to make sure you have what you need so that your basic needs are met- including your personal safety, food, housing, transportation and medications? Would you like to speak with a social work steam blocker to help give you support for any of these needs? No It can be normal to feel anxious or down during a time like this. Would you like to talk to a mental health professional about how you have been feeling? No Closing Thank you for taking the time to talk with me today. We want to work with you to ensure that we arekeeping your medical condition(s) well-controlled and to keep you healthy and out of the doctor's office or hospital. It s also not too late for me to sign you up for automated weekly questionnaires through [employer]. This is an easy way for us to stay connected each week. Are you interested? No, I understand. We can always sign you up in the future if you change your mind. Just as a reminder, will continue to call you every other week to check in on your health. Our calls should take 10-15 minutes or less. Remember, if you have concerns in between our calls, please call your PCP's office right away. Thank you. Enter next patient outreach date for two weeks on the same day of the week as today in the Track PtOutreach and End outreach. documented in this encounterCity [facility]01-26-2023 Miscellaneous Notes* Telephone Encounter - Sid Frank APRN.CNP - 08/12/2022 10:53 AM EST The following approved medication requests have been transmitted electronically. Requested Prescriptions Pending Prescriptions Disp Refills pantoprazole DR (PROTONIX) 40 mg tablet 90 tablet 3 Sig: Take 1 tablet by mouth daily before breakfast. Take on empty stomach, 1/2 hr before meal. Sid Frank APRN.CNP * Telephone Encounter - Samaria Santiago - 08/12/2022 10:41 AM EST Pharmacy verified in [facility] Patient has been identified by name and date of : Yes Patient aware RX will be sent to pharmacy. No need to notify patient. Patient phones for refill(s): Requested Prescriptions Pending Prescriptions Disp Refills pantoprazole DR (PROTONIX) 40 mg tablet 90 tablet 3 Sig: Take 1 tablet by mouth daily before breakfast. Take on empty stomach, 1/2 hr before meal. Date of last office visit : 2022 Date of next office visit : 12/06/2022 Last 2 Encounter Wt Readings: Date: Wt: 07/06/2022 93 kg (205 lb) 07/06/2022 93 kg (205 lb) Please advise. Samaria Martins Pss documented in this encounterCity Hospital12-30-2022 History of Present illness Narrative* Adriel Vides RN - 07/16/2022 8:55 AM EST HO YEE TELEPHONIC OUTREACH Provider Alaina/KOFFI COPD-At baseline- Pulmonary visit 07/06. Trial increased Symbicort. CN-cmxskgjh-xdebejtou from 2018 No concerns outside of his degenerative arthritis-Seems to worsen when damp outside. Advised discussion with PCP next visit if worsening. Does not access GoHome Contact made with patient: Yes Patient identified by name and . Discussed care with patient It s nice talking to you again. As a reminder, this is our bi-weekly check-in where I will be asking you questions about your health. This will only take a few minutes of your time. Is this a good time? Yes Symptoms What Chronic Disease(s) does the patient have: COPD Do you check your blood pressures at home? No Do you have new or worse shortness of breath with activity? No Do you have new or worsening cough? No Do you have new or worsening wheezing? No Do you need to use your rescue (Albuterol) inhaler or nebulizer more often than normal? No Are you having any other symptoms that your PCP needs to know about? No Symptoms: none Symptom Escalation GEOFF Education Ordered -: No The patient required an escalation for symptom(s)? No Medications Do you have any questions about taking your medication or which medications you should be on? No Do you need any medication refills at this time, including any of the medications you might take only when needed? No Social We would like to make sure you have what you need so that your basic needs are met- including your personal safety, food, housing and medications? Would you like to speak with a social work steam blocker to help give you support for any of these needs? No It can be normal to feel anxious or down during a time like this. Would you like to talk to a mental health professional about how you have been feeling? No Closing Thank you for taking the time to talk with me today. We want to work with you to ensure that we arekeeping your medical condition(s) well-controlled and to keep you healthy and out of the doctor's office or hospital. It s also not too late for me to sign you up for automated weekly questionnaires through [employer]. This is an easy way for us to stay connected each week. Are you interested? No, I understand. We can always sign you up in the future if you change your mind. Just as a reminder, will continue to call you every other week to check in on your health. Our calls should take 10-15 minutes or less. Remember, if you have concerns in between our calls, please call your PCP's office right away. Thank you. Enter next patient outreach date for two weeks on the same day of the week as today in the Track PtOutreach and End outreach. documented in this encounterCity Hospital12-28-2022 Miscellaneous Notes* Telephone Encounter - Francia Luna MD - 07/14/2022 10:47 AM EST Spoke with patient regarding results of chest CT. ILD has not progressed and RLL mass-like infiltrate is the same compared to 2018, consistent with rounded atelectasis. documented in this encounterCity Hospital12-22-2022 History of Present illness Narrative* Suzie Hickman RT(R) - 07/08/2022 11:00 AM EST Radiology Service Progress Note PATIENT NAME: Paco Whitney DATE OF SERVICE: July 08, 2022 TIME: 11:57 AM PATIENT IDENTITY VERIFICATION COMPLETED USING TWO (2) IDENTIFIERS: Name and Date of confirmedby patient verbally. FALL SCREENING: Has the patient had 2 falls in the last year or 1 fall with injury or currently using an Ambulatory Assistive Device (Walker, Cane, Wheelchair, Crutches, etc.)? No PATIENT GENDER DATA: Male PATIENT RELEVANT IMPLANT DATA REVIEWED: Yes RADIOLOGY DEPARTMENT: CT; Exam(s) Completed: Chest PERIPHERAL IV DATA: Not applicable SIGNED BY: RT Anatoliy(R) July 08, 2022 11:57 AM documented in this encounterCity Hospital12-20-2022 History of Present illness Narrative* Francia Luna MD - 07/06/2022 1:30 PM EST Images from the original note were not included. . [facility] [place] Note Patient name: Paco Whitney PCP: Clarice Murillo MD CC: Follow-up airways disease HPI: Paco Whitney 87 year old male former 60 pack year smoker, quitting 1990 with PMH significant for clinical obstructive lung disease (not proven by pulmonary function test) with CB, GERD, HTN, and lung nodules former patient of Dr. Bravo last seen in 2019. Known renal nodules and RLL mass previously evaluated by biopsy in 2014, negative for malignancy. Serial follow-up chest CT images have shown stability, consistent with possible rounded atelectasis. My review of chest CT shows very well-circumscribed 3 cm mass, with unusual configuration for rounded atelectasis. He has been on low-dose Symbicort for years. Recently seen by his primary care physician for cough and shortness of breath. He had significant upper chest congestion but no significant sputum production. Treated with antibiotics and steroids with some improvement but not complete resolution of his symptoms. Required a second course of antibiotics. Today he denies significant dyspnea feels as if he has persistent upper chest congestion and has noted wheezing. DATA: PFT: Spirometry is normal PFT 2019: Labs: Component Ref Range & Units 1 mo ago (05/20/22) WBC 3.70 - 11.00 k/uL 6.14 RBC 4.20 - 6.00 m/uL 5.06 Hemoglobin 13.0 - 17.0 g/dL 16.0 Hematocrit 39.0 - 51.0 % 49.3 MCV 80.0 - 100.0 fL 97.4 MCH 26.0 - 34.0 pg 31.6 MCHC 30.5 - 36.0 g/dL 32.5 RDW-CV 11.5 - 15.0 % 13.8 Platelet Count 150 - 400 k/uL 226 MPV 9.0 - 12.7 fL 9.6 Absolute nRBC <0.01 k/uL <0.01 Imaging / Diagnostic Studies: DATE OF EXAM: Jun 08 2022 3:17PM WOX [id number] - XR CHEST 2V FRONTAL/LAT / PROCEDURE REASON: Acute cough CLINICAL HISTORY: Acute cough MQ: [id number] EXAM DATE/TIME: 06/08/2022 3:17 PM COMPARISON: Correlation made to CT chest dated June 26, 2018 RESULT: Lines, tubes, and devices: None. Lungs and pleura: There is a stable appearing 3 cm mass in the medial right lower lobe. There is prominence of the interstitial markings in a peripheral and basilar predominance most compatible with underlying pulmonary fibrosis. No pleural effusion or pneumothorax. Cardiomediastinal silhouette: Heart is normal in size. Atherosclerotic calcification of the tortuous aorta. Bones and soft tissues: Degenerative changes chronic mild anterior wedging of a lower thoracic versus upper lumbar vertebral body IMPRESSION: 1. Stable appearing 3 cm right lower lobe mass. 2. Underlying pulmonary fibrosis. 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 Demerol [Meperidine* Mental Status Change Gave too high of dose Contrast Dye [Iodin* Intolerance pt needs to be oral hydrated after injection,..patient STATES HE IS NOT ALLERGIC TO IV DYE.. Lopid [Gemfibrozil] Other: See Comments Myalgia. budesonide-formoterol (SYMBICORT) 160-4.5 mcg/actuation inhaler Inhale 2 Puffs as instructed twice daily. guaiFENesin (MUCINEX) 600 mg 12 hr tablet Take 2 tablets by mouth twice daily. SYMBICORT 80-4.5 mcg/actuation inhaler Inhale 2 Puffs as instructed twice daily. gabapentin (NEURONTIN) 300 mg capsule Take 1 capsule by mouth three times daily for 180 days. Fenofibrate (LOFIBRA) 160 mg tablet Take 1 tablet by mouth once daily. meclizine (ANTIVERT) 25 mg tab Take 1 tablet by mouth every 6 hours as needed. FOR DIZZINESS clotrimazole-betamethasone (LOTRISONE) cream Apply 1 application to affected area twice daily. ramipril (ALTACE) 10 mg capsule Take 1 capsule by mouth once daily. aspirin 81 mg cap Take 1 capsule by mouth once daily. tamsulosin (FLOMAX) 0.4 mg TAKE ONE CAPSULE BY MOUTH ONCE DAILY AT BEDTIME pantoprazole DR (PROTONIX) 40 mg tablet Take 1 tablet by mouth daily before breakfast. Take on empty stomach, 1/2 hr before meal. lvdgtmik-xoykncvhs-zqrjjlsucctvbs (CORTISPORIN) 3.5-10,000-1 mg/mL-unit/mL-% otic suspension Use 4 Drops in the ears four times daily. x 1 week albuterol HFA (VENTOLIN HFA) 90 mcg/actuation inhaler Inhale 2 Puffs as instructed every 4 hours asneeded for Wheezing/Shortness of Breath. Social History Tobacco Use Smoking status: Former Packs/day: 2.00 Years: 32.00 Pack years: 64.00 Types: Cigarettes Start date: 1959 Quit date: 10/30/1990 Years since quittin.7 Smokeless tobacco: Never Tobacco comments: Multiple 4-5 year quits during smoking career. Vaping Use Vaping Use: Never used Substance Use Topics Alcohol use: No Drug use: No FAMILY HISTORY Problem Relation Age of Onset Hypertension Mother other (Parkinsons disease) Mother Heart Father Heart Brother Heart surgery Cancer Brother of liver. Diabetes Brother Heart disease Son No Family History No Family History No COPD, lung cancer. PAST SURGICAL HISTORY Procedure Laterality Date ARTHRP KNE CONDYLE&PLATU MEDIAL&LAT COMPARTMENTS 2002 Knee replacement, total, left CHOLECYSTECTOMY 2006 Cholecystectomy COLONOSCOPY 04/11/06 COLONOSCOPY 12/16/14 widespread diverticulosis,Repeat 2024 COLONOSCOPY FLX DX W/COLLJ SPEC WHEN PFRMD 09/19/2011 Colonoscopy [facility] HERNIA REPAIR HX 04/03/13 PAST SURGICAL HISTORY OF 1971 Back Surgery PAST SURGICAL HISTORY OF 11/15/2016 Colonoscopy, Dr. Romeo RPR RETINAL DTCHMNT DRG SUBRETINAL FLUID PC 2003 Laser repair retinal detach, right eye TONSILLECTOMY PRIMARY/SECONDARY <AGE 14 Tonsillectomy VASECTOMY UNI/BI SPX W/POSTOP SEMEN EXAMS 1964 PMH, Social history, family history and surgical history reviewed and updated in EMR REVIEW OF SYSTEMS: CONSTITUTIONAL: No fevers, chills, nightsweats, unintended weight loss, fatigue HEENT: Denies nasal congestion/sinus symptoms, allergy problems. CARDIOVASCULAR: No chest pain, dyspnea, palpitations, orthopnea, PND, edema. PULM: See HPI GI: No dysphagia/odynophagia, problematic reflux. NEURO: No new balance problems. Peripheral neuropathy MUSC-SKEL: Significant arthritis pain and back pain PSY: No concerns regarding depression PHYSICAL EXAMINATION: Pulse 69 Resp 14 Ht 5' 6 (1.68m) Wt 205 lb (93.0kg) SpO2 96% BMI 33.10 kg/(m^2). General Appearance: Elderly male, NAD Skin: Skin color, texture, turgor normal Head: Normocephalic, no masses, lesions, tenderness or abnormalities. Eyes: Sclera, conjunctiva normal, arcus senilis Oropharynx: Adequate dentition, no oral lesions or thrush Neck: No JVD, no masses, no lymphadenopathy Lungs: Not labored, normal percussion, no wheezes or crackles Heart: Regular rate and rhythm, no murmurs or gallops Extremities: No significant edema or clubbing Assessment/Plan: 1. Mild persistent airways disease -Symptoms suggestive of airways disease but not confirmed by pulmonary function tests -Trial of increased Symbicort 160/4.5 2. Lung nodules -Chest CT findings typical of rounded atelectasis. In light of previous smoking history will updateCT of the chest 3. Former cigarette smoker -Former 29-acoh-gjns smoker having quit in 1990 without sequelae of significant COPD or emphysema -Continued abstinence Francia Luna MD [facility] [place] documented in this encounterCity Hospital12-20-2022 Nurse Note* Briana Nuñez LPN - 07/06/2022 1:25 PM EST Intake information documented in the prior visit with TUYET Enciso today. documented in this encounterCity Hospital11-29-2022 Miscellaneous Notes* Telephone Encounter - Elizabeth Alvarez LPN - 2022 10:49 AM EST [facility] calling to clarify rx for Doxycyline. Rx says one tablet twice daily for 10 days, rx sent for 10 tablets only. Please send new rx with amount wanted please. Please advise documented in this encounterCity Hospital11-29-2022 Instructions* Patient Instructions* Tiffanie Schwartz APRN.CNP - 2022 10:10 AM EST Continue prednisone and Doxycycline Start Mucinex Follow up with Dr. Bravo documented in this encounterCity Hospital11-29-2022 History of Present illness Narrative* Tiffanie Schwartz APRN.CNP - 2022 9:54 AM EST Chief Complaint Patient presents with: Cough HPI Paco Whitney is a 87 year old male who presents here today for Above Complaints.. Patient seen for continued cough and shortness of breath. Patient reports improvement with antibiotics and steroids however feels treatment was not long enough. Patient reports improvement when sitting up and lying on right side. Patient reports coughing up sputum, green tinted although this has diminished with treatment. Denies fever, chills. Past medical history, appointments, medications, allergies reviewed. Previous Medical History PAST MEDICAL HISTORY Diagnosis Date Chronic airway obstruction, not elsewhere classified Diaphragmatic hernia without mention of obstruction or gangrene Diverticulitis 12/16/2014 Diverticulosis of colon with hemorrhage Essential hypertension, benign History of eye surgery 03/29/2011 Right eye Other and unspecified hyperlipidemia Rectal bleeding 12/16/2014 Retinal detachment with retinal defect, unspecified RIGHT EYE, WITH LENSE Rhabdomyolysis 2003 had as a result of [facility] Unspecified asthma(493.90) Unspecified cause of encephalitis, myelitis, and encephalomyelitis had mumps as an adult Unspecified transient cerebral ischemia x 2 Previous Surgical History PAST SURGICAL HISTORY Procedure Laterality Date ARTHRP KNE CONDYLE&PLATU MEDIAL&LAT COMPARTMENTS 2002 Knee replacement, total, left CHOLECYSTECTOMY 2006 Cholecystectomy COLONOSCOPY 04/11/06 COLONOSCOPY 12/16/14 widespread diverticulosis,Repeat 2024 COLONOSCOPY FLX DX W/COLLJ SPEC WHEN PFRMD 09/19/2011 Colonoscopy in[facility] HERNIA REPAIR HX 04/03/13 PAST SURGICAL HISTORY OF 1971 Back Surgery PAST SURGICAL HISTORY OF 11/15/2016 Colonoscopy, Dr. Romeo RPR RETINAL DTCHMNT DRG SUBRETINAL FLUID PC 2003 Laser repair retinal detach, right eye TONSILLECTOMY PRIMARY/SECONDARY <AGE 14 Tonsillectomy VASECTOMY UNI/BI SPX W/POSTOP SEMEN EXAMS 1964 Family History FAMILY HISTORY Problem Relation Age of Onset Hypertension Mother other (Parkinsons disease) Mother Heart Father Heart Brother Heart surgery Cancer Brother of liver. Diabetes Brother Heart disease Son No Family History No Family History No COPD, lung cancer. Patient Allergies ALLERGIES Allergen Reactions [facility]] [Other] Other: See Comments Rhabdomyolysis. Demerol [Meperidine* Mental Status Change Gave too high of dose Contrast Dye [Iodin* Intolerance pt needs to be oral hydrated after injection,..patient STATES HE IS NOT ALLERGIC TO IV DYE.. Lopid [Gemfibrozil] Other: See Comments Myalgia. Current Medications Current Outpatient Medications on File Prior to Visit Medication Sig SYMBICORT 80-4.5 mcg/actuation inhaler Inhale 2 Puffs as instructed twice daily. gabapentin (NEURONTIN) 300 mg capsule Take 1 capsule by mouth three times daily for 180 days. Fenofibrate (LOFIBRA) 160 mg tablet Take 1 tablet by mouth once daily. meclizine (ANTIVERT) 25 mg tab Take 1 tablet by mouth every 6 hours as needed. FOR DIZZINESS clotrimazole-betamethasone (LOTRISONE) cream Apply 1 application to affected area twice daily. ramipril (ALTACE) 10 mg capsule Take 1 capsule by mouth once daily. aspirin 81 mg cap Take 1 capsule by mouth once daily. tamsulosin (FLOMAX) 0.4 mg TAKE ONE CAPSULE BY MOUTH ONCE DAILY AT BEDTIME pantoprazole DR (PROTONIX) 40 mg tablet Take 1 tablet by mouth daily before breakfast. Take on empty stomach, 1/2 hr before meal. jlekinwo-wvhuajpcn-jnqjdpdcznwdot (CORTISPORIN) 3.5-10,000-1 mg/mL-unit/mL-% otic suspension Use 4 Drops in the ears four times daily. x 1 week albuterol HFA (VENTOLIN HFA) 90 mcg/actuation inhaler Inhale 2 Puffs as instructed every 4 hours asneeded for Wheezing/Shortness of Breath. No current facility-administered medications on file prior to visit. Social History Social History Tobacco Use Smoking status: Former Packs/day: 2.00 Years: 32.00 Pack years: 64.00 Types: Cigarettes Start date: 1959 Quit date: 10/30/1990 Years since quittin.6 Smokeless tobacco: Never Tobacco comments: Multiple 4-5 year quits during smoking career. Vaping Use Vaping Use: Never used Substance Use Topics Alcohol use: No Drug use: No Review of Symptoms REVIEW OF SYSTEMS EXAM: BP 110/60 Pulse 82 Temp 36.8 C (98.2 F) Resp 16 Wt 92.5 kg (204 lb) SpO2 97% BMI 31.95 kg/m General Appearance: Well appearing, alert, in no acute distress, well-hydrated, well nourished.. Lungs: Positive findings: wheezing Shortness of breath: Upon exertion Cough. Heart: RRR without murmur, gallop, or rubs. No ectopy. Health Maintenance List SHINGRIX VACCINE(1 of 2) Never done DTAP,TDAP,TD(1 - Tdap) due on 02/10/2012 ADVANCE DIRECTIVE DISCUSSION Never done COVID-19 VACCINE(4 - Booster for Moderna series) due on 07/28/2021 DIABETES SCREEN due on 05/20/2025 SPIROMETRY Completed INFLUENZA Completed DEPRESSION ASSESSMENT Completed PNEUMOCOCCAL: 65+ Completed Data Reviewed CXR Impression 06/08/2022 IMPRESSION: 1. Stable appearing 3 cm right lower lobe mass. 2. Underlying pulmonary fibrosis. ASSESSMENT/PLAN: 1. Acute exacerbation of chronic obstructive pulmonary disease (COPD) ([facility]) - ICD9: 491.21, ICD10: J44.1 - PREDNISONE 10 MG TABLET - DOXYCYCLINE HYCLATE 100 MG TABLET - GUAIFENESIN ER 600 MG TABLET, EXTENDED RELEASE 12 HR - CONSULT TO PULMONARY MEDICINE Tiffanie Schwartz APRN.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 documented in this encounterCity Hospital11-28-2022 History of Present illness Narrative* Francia Rangel MA - 06/14/2022 9:29 AM EST POPULATION HEALTH NAVIGATION OUTREACH Action/FYI June 14, 2022 Spoke with patient. We have scheduled him with Tiffanie Schwartz CNP for tomorrow, 2022 to be seen for his cough, thank you Pt identified by name and : YES, via phone Outreach Outcome/Action Spoke to patient or caregiver: Patient scheduled Did you use a PCP flex slot to schedule this appointment? No Reason for Outreach [facility] Payer: Payor: PRIMETIME / Plan: PRIMETIME HMO POS / Product Type: HMO / Care Gap Reviewed:: Follow-up appointment Reminder: Reminder note to check Health Maintenance for items below Health Maintenance items due: SHINGRIX VACCINE(1 of 2) Never done DTAP,TDAP,TD(1 - Tdap) due on 02/10/2012 ADVANCE DIRECTIVE DISCUSSION Never done COVID-19 VACCINE(4 - Booster for Moderna series) due on 07/28/2021 Message Sent to Practice: No Navigation Signature: Francia Rangel MA June 14, 2022 9:30 AM * Adriel Vides RN - 06/11/2022 3:20 PM EST INSIGHT CDM TELEPHONIC OUTREACH Provider Action/: COPD Received flu vaccine. Seen in [facility] 06/08 for cough Pulse ox 95% Using inhalers as directed. Has one more day left of doxycyline/prednisone CXR negative.Negative covid/flu Continues to experience some wheezing. Concerned he may need additional antibiotics/steroid. Still feeling about the same. Discussed supportive care. Would like to have follow up with PCP. Will forward to PSS to assist with scheduling Contact made with patient: Yes Patient identified by name and . Discussed care with patient It s nice talking to you again. As a reminder, this is our bi-weekly check-in where I will be asking you questions about your health. This will only take a few minutes of your time. Is this a good time? Yes Symptoms What Chronic Disease(s) does the patient have: COPD Do you check your blood pressures at home? No Do you have new or worse shortness of breath with activity? Yes Do you have new or worsening cough? Yes Do you have new or worsening wheezing? Yes Do you need to use your rescue (Albuterol) inhaler or nebulizer more often than normal? No Are you having any other symptoms that your PCP needs to know about? Yes Symptom Escalation The patient required an escalation for symptom(s)? Yes, Visit (Telehealth, Virtual, or In Office) with PCP within 7 days - Routed to [facility] [[id number]] Medications Do you have any questions about taking your medication or which medications you should be on? No Do you need any medication refills at this time, including any of the medications you might take only when needed? No Social We would like to make sure you have what you need so that your basic needs are met- including your personal safety, food, housing and medications? Would you like to speak with a social work steam blocker to help give you support for any of these needs? No It can be normal to feel anxious or down during a time like this. Would you like to talk to a mental health professional about how you have been feeling? No Closing Thank you for taking the time to talk with me today. We want to work with you to ensure that we arekeeping your medical condition(s) well-controlled and to keep you healthy and out of the doctor's office or hospital. It s also not too late for me to sign you up for automated weekly questionnaires through [employer]. This is an easy way for us to stay connected each week. Are you interested? No, I understand. We can always sign you up in the future if you change your mind. Just as a reminder, will continue to call you every other week to check in on your health. Our calls should take 10-15 minutes or less. Remember, if you have concerns in between our calls, please call your PCP's office right away. Thank you. Enter next patient outreach date for two weeks on the same day of the week as today in the Track PtOutreach and End outreach. * Adriel Vides RN - 06/11/2022 9:42 AM EST INSIGHT CDM TELEPHONIC OUTREACH Provider Action/FYI: Contact made with patient: No - Left message Hello my name is Adriel Vides RN your [place] [facility] I am calling today for your bi-weekly check in. I am sorry I missed your call. I will reach out to you again tomorrow. (if the third call I will reach out to you again next week) Enter next patient outreach date forthe following using the Track Pt Outreach. End outreach. documented in this encounterCity Hospital11-23-2022 Miscellaneous Notes* Telephone Encounter - Charis Branch - 06/09/2022 7:04 AM EST Left detailed message on a secured voicemail. Charis Branch * Telephone Encounter - Jyothi Mosley APRN.CNP - 06/09/2022 6:57 AM EST Please notify of negative influenza and covid test. Continue comfort measures for symptoms as you would for a cold. Any worsening symptoms follow up with PCP or ER. Jyothi Mosley APRN.CNP documented in this encounterCity [facility]11-22-2022 History of Present illness Narrative* Amy Sawyer RT(Josefina) - 06/08/2022 3:10 PM EST Radiology Service Progress Note PATIENT NAME: Paco Whitney DATE OF SERVICE: June 08, 2022 TIME: 3:06 PM PATIENT IDENTITY VERIFICATION COMPLETED USING TWO (2) IDENTIFIERS: Name and Date of confirmedby patient verbally. FALL SCREENING: Has the patient had 2 falls in the last year or 1 fall with injury or currently using an Ambulatory Assistive Device (Walker, Cane, Wheelchair, Crutches, etc.)? No PATIENT GENDER DATA: Male PATIENT RELEVANT IMPLANT DATA REVIEWED: Yes RADIOLOGY DEPARTMENT: General X-ray: Exam(s) Completed: Chest X-Ray PERIPHERAL IV DATA: Not applicable SIGNED BY: RT Kristy(Josefina) June 08, 2022 3:06 PM documented in this encounterCity Hospital11-18-2022 History of Present illness Narrative* Clarice Murillo MD - 06/04/2022 10:40 AM EST Chief Complaint Patient presents with: 6 Month Exam Immunizations: Flu vaccination HPI Paco Whitney is a 86 year old male who presents here today for 6 month follow up. Here with [facility]. No bowel, Gi, or urinary issues. Follows with Dr. Valdez, urologist. Taking Flomax 0.4 mg daily. Hx of diverticulitis and renal mass. GERD: Sx controlled with Protonix 40 mg daily. HTN: Checks BP occ at home, WNL. Denieschest pains, dizziness, or SOB. Current regimen of Ramipril 10 mg daily. He stated he was leaning over working on tire and stood up and became light headed and passed out. 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 Has meclizine to use prn dizziness. AAA: Follows with Dr. Nolen, Vascular. Monitored with CT scans, most recent measurement of 4.8 cm. Lipid: Tries to watch diet, denies much exercise due to neuropathy and back pain. Taking Lofibra 160 mg daily. Neuropathy: Chronic. Uses a cane for support. Taking Gabapentin 100 mg TID and Tylenol which helps.Has seen Neuro in past for dx of vertebrobasilar artery syndrome. Is taking Aspirin 81 mg daily. Andrzejlivs put some diabetes cream on his feel twice a day to help with his foot pain. COPD: Controlled with Symbicort BID, albuterol inhaler prn and nebulizer prn. He states that his breathing worse in musty areas and humid days. Falls Risk Intake: Patient age 65 or over, unsteady, or was advised to use special equipment to aid ambulation (i.e., cane or walker)? Yes Has the patient had two falls in the past year, or one with injury? Yes Does the patient need to use their hands when pushing up from chair, or hold onto furniture when ambulating at home? Yes Is the patient worried about falling? Yes Please inform patient that answering Yes to one or more of the questions above can increase theirrisk of falling Patient is at greater risk for falls. Falls Instruction: Teaching document below - reviewed and given to patient [facility] - FALLS Prevention Safety Plan Past medical history, appointments, medications, allergies reviewed. 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 Romeo RPR RETINAL DTCHMNT DRG SUBRETINAL FLUID PC 2003 Laser repair retinal detach, right eye TONSILLECTOMY PRIMARY/SECONDARY <AGE 14 Tonsillectomy VASECTOMY UNI/BI SPX W/POSTOP SEMEN EXAMS 1964 Family History FAMILY HISTORY Problem Relation Age of Onset Hypertension Mother other (Parkinsons disease) Mother Heart Father Heart Brother Heart surgery Cancer Brother of liver. Diabetes Brother Heart disease Son No Family History No Family History No COPD, lung cancer. Patient Allergies ALLERGIES Allergen Reactions Baycolother] [Other] Other: See Comments Rhabdomyolysis. Demerol [Meperidine* Mental Status Change Gave too high of dose Contrast Dye [Iodin* Intolerance pt needs to be oral hydrated after injection,..patient STATES HE IS NOT ALLERGIC TO IV DYE.. Lopid [Gemfibrozil] Other: See Comments Myalgia. Current Medications Current Outpatient Medications on File Prior to Visit Medication Sig Fenofibrate (LOFIBRA) 160 mg tablet Take 1 tablet by mouth once daily. meclizine (ANTIVERT) 25 mg tab Take 1 tablet by mouth every 6 hours as needed. FOR DIZZINESS clotrimazole-betamethasone (LOTRISONE) cream Apply 1 application to affected area twice daily. ramipril (ALTACE) 10 mg capsule Take 1 capsule by mouth once daily. aspirin 81 mg cap Take 1 capsule by mouth once daily. tamsulosin (FLOMAX) 0.4 mg TAKE ONE CAPSULE BY MOUTH ONCE DAILY AT BEDTIME pantoprazole DR (PROTONIX) 40 mg tablet Take 1 tablet by mouth daily before breakfast. Take on empty stomach, 1/2 hr before meal. gabapentin (NEURONTIN) 100 mg capsule Take 1 capsule by mouth three times daily. SYMBICORT 80-4.5 mcg/actuation inhaler Inhale 2 Puffs as instructed twice daily. bjeoyixc-ircxdzwyr-sexpmlmwbluwqx (CORTISPORIN) 3.5-10,000-1 mg/mL-unit/mL-% otic suspension Use 4 Drops in the ears four times daily. x 1 week albuterol HFA (VENTOLIN HFA) 90 mcg/actuation inhaler Inhale 2 Puffs as instructed every 4 hours asneeded for Wheezing/Shortness of Breath. No current facility-administered medications on file prior to visit. Social History Social History Tobacco Use Smoking status: Former Packs/day: 2.00 Years: 32.00 Pack years: 64.00 Types: Cigarettes Start date: 1959 Quit date: 10/30/1990 Years since quittin.6 Smokeless tobacco: Never Tobacco comments: Multiple 4-5 year quits during smoking career. Vaping Use Vaping Use: Never used Substance Use Topics Alcohol use: No Drug use: No EXAM: BP 122/78 Pulse 86 Resp 20 Wt 91.9 kg (202 lb 9.6 oz) BMI 31.73 kg/m General Appearance: Well appearing, alert, in no acute distress, well-hydrated, well nourished. andOverweight. Lungs: Lungs clear to auscultation. No wheezing, rhonchi, rales.. Heart: RRR without murmur, gallop, or rubs. No ectopy. Health Maintenance List SHINGRIX VACCINE(1 of 2) Never done DTAP,TDAP,TD(1 - Tdap) due on 02/10/2012 ADVANCE DIRECTIVE DISCUSSION Never done DEPRESSION ASSESSMENT Never done COVID-19 VACCINE(4 - Booster for Moderna series) due on 07/28/2021 INFLUENZA(1) due on 03/18/2022 DIABETES SCREEN due on 12/01/2024 SPIROMETRY Completed PNEUMOCOCCAL: 65+ Completed Data reviewed Appointment on 05/20/2022 Component Date Value Protein, Total 05/20/2022 7.0 Albumin 05/20/2022 4.3 Calcium, Total 05/20/2022 10.3 (A) Bilirubin, Total 05/20/2022 1.1 Alkaline Phosphatase 05/20/2022 71 AST 05/20/2022 30 ALT 05/20/2022 21 Glucose 05/20/2022 83 BUN 05/20/2022 26 (A) Creatinine 05/20/2022 1.13 Sodium 05/20/2022 141 Potassium 05/20/2022 4.7 Chloride 05/20/2022 106 (A) CO2 05/20/2022 23 Anion Gap 05/20/2022 12 Estimated Glomerular Garfield* 05/20/2022 64 Cholesterol, Total 05/20/2022 163 Triglyceride 05/20/2022 178 (A) HDL Cholesterol 05/20/2022 32 (A) Non HDL Cholesterol 05/20/2022 131 (A) Fasting Time 05/20/2022 12 VLDL Cholesterol 05/20/2022 36 (A) TC:HDL Ratio 05/20/2022 5.09 LDL Cholesterol 05/20/2022 95 LDL:HDL Ratio 05/20/2022 2.97 (A) WBC 05/20/2022 6.14 RBC 05/20/2022 5.06 Hemoglobin 05/20/2022 16.0 Hematocrit 05/20/2022 49.3 MCV 05/20/2022 97.4 MCH 05/20/2022 31.6 MCHC 05/20/2022 32.5 RDW-CV 05/20/2022 13.8 Platelet Count 05/20/2022 226 MPV 05/20/2022 9.6 Absolute nRBC 05/20/2022 <0.01 ASSESSMENT/PLAN: 1. Essential hypertension, benign - ICD9: 401.1, ICD10: I10 (primary diagnosis) - good control - Continue current medication(s) - Goal of BP <140/90 2. Hyperlipidemia, unspecified hyperlipidemia type - ICD9: 272.4, ICD10: E78.5 - good control - Continue current medication. 3. Chronic obstructive pulmonary disease, unspecified COPD type (HCC) - ICD9: 496, ICD10: J44.9 Stable Continue current medications. 4. Osteoarthritis of lumbar spine, unspecified spinal osteoarthritis complication status - ICD9: 721.3, ICD10: M47.816 Increase neurontin to 300 mg - GABAPENTIN 300 MG CAPSULE 5. Vitamin D deficiency - ICD9: 268.9, ICD10: E55.9 6. Benign prostatic hyperplasia, unspecified whether lower urinary tract symptoms present - ICD9: 600.00, ICD10: N40.0 7. Need for influenza vaccination - ICD9: V04.81, ICD10: Z23 - INFLUENZA SEASONAL QUADRIVALENT HIGH DOSE AGE 65+ 8. Acute pain of left shoulder - ICD9: 719.41, ICD10: M25.512 9. Left hip pain - ICD9: 719.45, ICD10: M25.552 Follow up in 6 months. I agree with the Chief Complaint, ROS, and Past Histories independently gathered by the clinical program support specialist and the remaining scribed note accurately describes my personal service to the patient. Medical Decision Making: Problems: Moderate: 2+ stable chronic illnesses Data: Unique test result(s) reviewed: 2 Unique test(s) ordered: 2 Risk: Moderate: Drug management Medical Decision Making Level: 4 - Moderate Clarice Murillo MD The documentation for this note was completed by Marianne Escobar Ma acting as scribe for Clarice Murillo MD. June 04, 2022 10:26 AM. Marianne Escobar Ma documented in this encounterCity Hospital10-14-2022 Miscellaneous Notes* Telephone Encounter - Marianne Escobar Ma - 04/30/2022 12:13 PM EDT The following approved medication requests have been transmitted electronically. Requested Prescriptions Signed Prescriptions Disp Refills Fenofibrate (LOFIBRA) 160 mg tablet 30 tablet 11 Sig: Take 1 tablet by mouth once daily. Authorizing Provider: CLARICE MURILLO Ma * Telephone Encounter - Clarice Murillo MD - 04/30/2022 12:12 PM EDT OK to refill as ordered Clarice Murillo MD * Telephone Encounter - Charis Santiago - 04/30/2022 11:24 AM EDT Patient has been identified by name and date of : Yes Last office visit in this department: 11/30/2021 RX INSTRUCTIONS: Patient aware RX will be sent to pharmacy. No need to notify patient. Patient phones requesting refills as follows: Requested Prescriptions Pending Prescriptions Disp Refills Fenofibrate (LOFIBRA) 160 mg tablet 30 tablet 11 Sig: Take 1 tablet by mouth once daily. Please review and advise. Charis Santiago documented in this encounterCity Hospital09-26-2022 History of Present illness Narrative* Marianne Balderas RN - 04/12/2022 10:52 AM EDT [facility] TELEPHON[facility] OUTREACH Provider Action/FYI: Patient reports he is doing good, states last week /Tue he was bending over looking up, blacked out a little, fell backwards right on his back, no reported injuries or symptoms such as headache. 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 Patient had no further questions, concerns, needs at this time. Contact made with patient: Yes Patient identified by name and . Discussed care with patient It s nice talking to you again. As a reminder, this is our bi-weekly check-in where I will be asking you questions about your health. This will only take a few minutes of your time. Is this a good time? Yes Symptoms What Chronic Disease(s) does the patient have: COPD Do you check your blood pressures at home? Yes, Enter readings: 120's/60's Do you have new or worse shortness of breath with activity? No Do you have new or worsening cough? No Do you have new or worsening wheezing? No Do you need to use your rescue (Albuterol) inhaler or nebulizer more often than normal? No Are you having any other symptoms that your PCP needs to know about? No Symptom Escalation The patient required an escalation for symptom(s)? No Medications Do you have any questions about taking your medication or which medications you should be on? No Do you need any medication refills at this time, including any of the medications you might take only when needed? No Social We would like to make sure you have what you need so that your basic needs are met- including your personal safety, food, housing and medications? Would you like to speak with a social work steam blocker to help give you support for any of these needs? No It can be normal to feel anxious or down during a time like this. Would you like to talk to a mental health professional about how you have been feeling? No Closing Thank you for taking the time to talk with me today. We want to work with you to ensure that we arekeeping your medical condition(s) well-controlled and to keep you healthy and out of the doctor's office or hospital. It s also not too late for me to sign you up for automated weekly questionnaires through [employer]. This is an easy way for us to stay connected each week. Are you interested? No, I understand. We can always sign you up in the future if you change your mind. Just as a reminder, will continue to call you every other week to check in on your health. Our calls should take 10-15 minutes or less. Remember, if you have concerns in between our calls, please call your PCP's office right away. Thank you. Enter next patient outreach date for two weeks on the same day of the week as today in the Track PtOutreach and End outreach. documented in this encounterCity Hospital08-29-2022 History of Present illness Narrative* Marianne Balderas RN - 03/15/2022 9:17 AM EDT INSIGHT [facility]M TELEPHONIC OUTREACH Provider Action/FYI: Patient reports they are doing good, had no questions, concerns, needs at this time. Contact made with patient: Yes Patient identified by name and . Discussed care with patient It s nice talking to you again. As a reminder, this is our bi-weekly check-in where I will be asking you questions about your health. This will only take a few minutes of your time. Is this a good time? Yes Symptoms What Chronic Disease(s) does the patient have: COPD Do you check your blood pressures at home? Yes, Enter readings: 120/60's Do you have new or worse shortness of breath with activity? No Do you have new or worsening cough? No Do you have new or worsening wheezing? No Do you need to use your rescue (Albuterol) inhaler or nebulizer more often than normal? No Are you having any other symptoms that your PCP needs to know about? No Symptom Escalation The patient required an escalation for symptom(s)? No Medications Do you have any questions about taking your medication or which medications you should be on? No Do you need any medication refills at this time, including any of the medications you might take only when needed? No Social We would like to make sure you have what you need so that your basic needs are met- including your personal safety, food, housing and medications? Would you like to speak with a social work steam blocker to help give you support for any of these needs? No It can be normal to feel anxious or down during a time like this. Would you like to talk to a mental health professional about how you have been feeling? No Closing Thank you for taking the time to talk with me today. We want to work with you to ensure that we arekeeping your medical condition(s) well-controlled and to keep you healthy and out of the doctor's office or hospital. It s also not too late for me to sign you up for automated weekly questionnaires through [employer]. This is an easy way for us to stay connected each week. Are you interested? No, I understand. We can always sign you up in the future if you change your mind. Just as a reminder, will continue to call you every other week to check in on your health. Our calls should take 10-15 minutes or less. Remember, if you have concerns in between our calls, please call your PCP's office right away. Thank you. Enter next patient outreach date for two weeks on the same day of the week as today in the Track PtOutreach and End outreach. documented in this encounterCity Hospital08-02-2022 History of Present illness Narrative* Marianne Balderas RN - 02/16/2022 9:02 AM EDT INSIGHT [facility]M TELEPHONIC OUTREACH Provider Action/FYI: Patient returned call to this nurse last evening, left message stating he is doing good, no concerns at this time. Contact made with patient: Yes Patient identified by name and . Discussed care with patient It s nice talking to you again. As a reminder, this is our bi-weekly check-in where I will be asking you questions about your health. This will only take a few minutes of your time. Is this a good time? Yes Symptoms What Chronic Disease(s) does the patient have: COPD Do you check your blood pressures at home? No Do you have new or worse shortness of breath with activity? No Do you have new or worsening cough? No Do you have new or worsening wheezing? No Do you need to use your rescue (Albuterol) inhaler or nebulizer more often than normal? No Are you having any other symptoms that your PCP needs to know about? No Symptom Escalation The patient required an escalation for symptom(s)? No Medications Do you have any questions about taking your medication or which medications you should be on? No Do you need any medication refills at this time, including any of the medications you might take only when needed? No Social We would like to make sure you have what you need so that your basic needs are met- including your personal safety, food, housing and medications? Would you like to speak with a social work steam blocker to help give you support for any of these needs? No It can be normal to feel anxious or down during a time like this. Would you like to talk to a mental health professional about how you have been feeling? No Closing Thank you for taking the time to talk with me today. We want to work with you to ensure that we arekeeping your medical condition(s) well-controlled and to keep you healthy and out of the doctor's office or hospital. It s also not too late for me to sign you up for automated weekly questionnaires through [employer]. This is an easy way for us to stay connected each week. Are you interested? No, I understand. We can always sign you up in the future if you change your mind. Just as a reminder, will continue to call you every other week to check in on your health. Our calls should take 10-15 minutes or less. Remember, if you have concerns in between our calls, please call your PCP's office right away. Thank you. Enter next patient outreach date for two weeks on the same day of the week as today in the Track PtOutreach and End outreach. documented in this encounterCity Hospital08-01-2022 History of Present illness Narrative* Marianne Balderas RN - 02/15/2022 10:48 AM EDT INSIGHT CD TELEPHONIC OUTREACH Provider Action/FYI: Contact made with patient: No - Left message Hello my name is Marianne Balderas RN [facility] [place] [facility] I am calling today for your monthly check in. I am sorry I missed your call. I will reach out to you again tomorrow. (if the third call I will reach out to you again next week) Enter next patient outreach datefor the following using the Track Pt Outreach. End outreach. documented in this encounterCity Hospital07-21-2022 Miscellaneous Notes* Telephone Encounter - Sid Frank APRN.CNP - 02/04/2022 9:45 AM EDT The following approved medication requests have been transmitted electronically. Pending Prescriptions Disp Refills MECLIZINE 25 MG TABLET 30 tablet 5 Sig: Take 1 tablet by mouth every 6 hours as needed. FOR DIZZINESS LIANET: No CLOTRIMAZOLE-BETAMETHASONE 1 %-0.05 % TOPICAL CREAM 30 g 1 Sig: Apply 1 application to affected area twice daily. LIANET: No Sid Frank APRN.CNP * Telephone Encounter - Johanna Uribe - 02/04/2022 9:15 AM EDT Patient has been identified by name and date of : Yes Pending Prescriptions Disp Refills MECLIZINE 25 MG TABLET 30 tablet 5 Sig: Take 1 tablet by mouth every 6 hours as needed. FOR DIZZINESS LIANET: No CLOTRIMAZOLE-BETAMETHASONE 1 %-0.05 % TOPICAL CREAM 30 g 1 Sig: Apply 1 application to affected area twice daily. LIANET: No RX INSTRUCTIONS: Patient aware RX will be sent to pharmacy. Patient asking for a return call. Johanna Uribe documented in this encounterCity Hospital07-05-2022 History of Present illness Narrative* Marianne Balderas RN - 01/19/2022 9:33 AM EDT INSIGHT CDM TELEPHONIC OUTREACH Provider Action/FYI: Pt reports he is doing good, no questions, concerns, needs at this time. Contact made with patient: Yes Patient identified by name and . Discussed care with patient It s nice talking to you again. As a reminder, this is our bi-weekly check-in where I will be asking you questions about your health. This will only take a few minutes of your time. Is this a good time? Yes Symptoms What Chronic Disease(s) does the patient have: COPD Do you check your blood pressures at home? No Do you have new or worse shortness of breath with activity? No Do you have new or worsening cough? No Do you have new or worsening wheezing? No Do you need to use your rescue (Albuterol) inhaler or nebulizer more often than normal? No Are you having any other symptoms that your PCP needs to know about? No Symptom Escalation The patient required an escalation for symptom(s)? No Medications Do you have any questions about taking your medication or which medications you should be on? No Do you need any medication refills at this time, including any of the medications you might take only when needed? No Social We would like to make sure you have what you need so that your basic needs are met- including your personal safety, food, housing and medications? Would you like to speak with a social work steam blocker to help give you support for any of these needs? No It can be normal to feel anxious or down during a time like this. Would you like to talk to a mental health professional about how you have been feeling? No Closing Thank you for taking the time to talk with me today. We want to work with you to ensure that we arekeeping your medical condition(s) well-controlled and to keep you healthy and out of the doctor's office or hospital. It s also not too late for me to sign you up for automated weekly questionnaires through [employer]. This is an easy way for us to stay connected each week. Are you interested? No, I understand. We can always sign you up in the future if you change your mind. Just as a reminder, will continue to call you every other week to check in on your health. Our calls should take 10-15 minutes or less. Remember, if you have concerns in between our calls, please call your PCP's office right away. Thank you. Enter next patient outreach date for two weeks on the same day of the week as today in the Track PtOutreach and End outreach. documented in this encounterCity Hospital05-20-2022 Miscellaneous Notes* Telephone Encounter - Elisa Granger Ma - 12/04/2021 10:32 AM EDT Pt notified. * Telephone Encounter - Clarice Murillo MD - 12/03/2021 6:08 PM EDT Please notify patient that his blood work all looks good. Clarice Murillo MD documented in this encounterCity Hospital05-16-2022 History of Present illness Narrative* Clarice Murillo MD - 11/30/2021 4:00 PM EDT Chief Complaint Patient presents with: 6 Month Exam HPI Paco Whitney is a 86 year old male who presents here today for 6 month follow up. Here with , Mone. Does not have an advanced directive. He has had a fall in the past year, uses a cane for support. He has some balance issues. Denies any bowel, Gi, or urinary issues. Doing well on Flomax 0.[address] Valdez, Urologist. Hx of renal mass. Hx of diverticulitis. AAA: Monitored with CT scans routinely. Follows with Dr. Nolen, Vascular. AAA measuring 4.8 cm. HTN: Checking BP occ at home. No chest pains, dizziness, or SOB. Taking Ramipril 10 mg daily. COPD: Controlled with Symbicort BID, albuterol inhaler prn and nebulizer prn. He states that the Symbicort is costly and pharmacist recommended another medication. He can not recall the name, thinks it might be Breo Ellipta inhaler, advised pt to call office back with name. Neuropathy: chronic, seems to effect his back mostly. Uses a cane for support. Taking Gabapentin 100 mg TID and Tylenol which helps. 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 Is taking Aspirin 81 mg daily. He has noticed that the right leg and arm are not as strong as the left side, which was opposite for a very long time. Lipid: Taking Lofibra 160 mg daily. Tries to watch diet. GERD: Sx controlled with Protonix 40 mg daily. Past medical history, appointments, medications, allergies reviewed. Previous Medical History PAST MEDICAL HISTORY Diagnosis Date Chronic airway obstruction, not elsewhere classified Diaphragmatic hernia without mention of obstruction or gangrene Diverticulitis 12/16/2014 Diverticulosis of colon with hemorrhage Essential hypertension, benign History of eye surgery 03/29/2011 Right eye Other and unspecified hyperlipidemia Rectal bleeding 12/16/2014 Retinal detachment with retinal defect, unspecified RIGHT EYE, WITH LENSE Rhabdomyolysis 2004 had as a result of Baycol Unspecified asthma(493.90) Unspecified cause of encephalitis, myelitis, and encephalomyelitis had mumps as an adult Unspecified transient cerebral ischemia x 2 Previous Surgical History PAST SURGICAL HISTORY Procedure Laterality Date ARTHRP KNE CONDYLE&PLATU MEDIAL&LAT COMPARTMENTS 2002 Knee replacement, total, left CHOLECYSTECTOMY 2006 Cholecystectomy COLONOSCOPY 04/11/06 COLONOSCOPY 12/16/14 widespread diverticulosis,Repeat 2024 COLONOSCOPY FLX DX W/COLLJ SPEC WHEN PFRMD 09/19/2011 [facility]oscopy [facility] HERNIA REPAIR HX 9/17/13 PAST SURGICAL HISTORY OF 1971 Back Surgery PAST SURGICAL HISTORY OF 11/15/2016 Colonoscopy, Dr. Romeo RPR RETINAL DTCHMNT DRG SUBRETINAL FLUID PC 2003 Laser repair retinal detach, right eye TONSILLECTOMY PRIMARY/SECONDARY <AGE 14 Tonsillectomy VASECTOMY UNI/BI SPX W/POSTOP SEMEN EXAMS 1964 Family History FAMILY HISTORY Problem Relation Age of Onset Hypertension Mother other (Parkinsons disease) Mother Heart Father Heart Brother Heart surgery Cancer Brother of liver. Diabetes Brother Heart disease Son No Family History No Family History No COPD, lung cancer. Patient Allergies ALLERGIES Allergen Reactions Baycolother] [Other] Other: See Comments Rhabdomyolysis. Demerol [Meperidine* Mental Status Change Gave too high of dose Contrast Dye [Iodin* Intolerance pt needs to be oral hydrated after injection,..patient STATES HE IS NOT ALLERGIC TO IV DYE.. Lopid [Gemfibrozil] Other: See Comments Myalgia. Current Medications Current Outpatient Medications on File Prior to Visit Medication Sig tamsulosin (FLOMAX) 0.4 mg TAKE ONE CAPSULE BY MOUTH ONCE DAILY AT BEDTIME pantoprazole DR (PROTONIX) 40 mg tablet Take 1 tablet by mouth daily before breakfast. Take on empty stomach, 1/2 hr before meal. gabapentin (NEURONTIN) 100 mg capsule Take 1 capsule by mouth three times daily. SYMBICORT 80-4.5 mcg/actuation inhaler Inhale 2 Puffs as instructed twice daily. qmvgzpsy-ctegoyoff-rcnekbwtymtfik (CORTISPORIN) 3.5-10,000-1 mg/mL-unit/mL-% otic suspension Use 4 Drops in the ears four times daily. x 1 week Fenofibrate (LOFIBRA) 160 mg tablet Take 1 tablet by mouth once daily. ramipril (ALTACE) 10 mg capsule Take 1 capsule by mouth once daily. albuterol HFA (VENTOLIN HFA) 90 mcg/actuation inhaler Inhale 2 Puffs as instructed every 4 hours asneeded for Wheezing/Shortness of Breath. albuterol HFA (PROVENTIL HFA, VENTOLIN HFA) 90 mcg/actuation inhaler Inhale 1-2 Puffs as instructedfour times daily as needed. FOR WHEEZING AND SHORTNESS OF BREATH. clotrimazole-betamethasone (LOTRISONE) cream Apply 1 application to affected area twice daily. No current facility-administered medications on file prior to visit. Social History Social History Tobacco Use Smoking status: Former Smoker Packs/day: 2.00 Years: 32.00 Pack years: 64.00 Types: Cigarettes Start date: 1957 Quit date: 10/30/1990 Years since quittin.1 Smokeless tobacco: Never Used Tobacco comment: Multiple 4-5 year quits during smoking career. Vaping Use Vaping Use: Never used Substance Use Topics Alcohol use: No Drug use: No EXAM: BP 100/60 Pulse 62 Resp 14 Wt 91.6 kg (202 lb) BMI 31.64 kg/m General Appearance: Well appearing, alert, in no acute distress, well-hydrated, well nourished. andOverweight. Lungs: Lungs clear to auscultation. No wheezing, rhonchi, rales.. Heart: RRR without murmur, gallop, or rubs. No ectopy. Health Maintenance List SHINGRIX VACCINE(1 of 2) Never done DTAP,TDAP,TD(1 - Tdap) due on 02/10/2012 COVID-19 VACCINE(3 - Booster for Moderna series) due on 01/31/2021 ADVANCE DIRECTIVE DISCUSSION Never done DIABETES SCREEN due on 05/12/2024 SPIROMETRY Completed INFLUENZA Completed PNEUMOVAX AGE 65 AND OVER WITH 5YR LOOKBACK Completed MENINGOCOCCAL CONJUGATE Aged Out Data reviewed None ASSESSMENT/PLAN: 1. Hyperlipidemia, unspecified hyperlipidemia type - ICD9: 272.4, ICD10: E78.5 (primary diagnosis) - to be determined upon return of lab results - Continue current medication. - Encouraged following a low fat, low cholesterol diet. - Discussed the benefits of regular aerobic exercise and weight loss. 2. BENIGN HYPERTENSION - ICD9: 401.1, ICD10: I10 - good control - Continue current medication(s) - Recommended regular aerobic exercise. - Recommend home blood pressure monitoring, to bring results in on next visit - Goal of BP <130/80 - RAMIPRIL 10 MG CAPSULE 3. Abdominal aortic aneurysm without rupture (HCC) - ICD9: 441.4, ICD10: I71.4 Continue to monitor Continue with Vascular 4. Chronic obstructive pulmonary disease, unspecified COPD type (HCC) - ICD9: 496, ICD10: J44.9 Continue current medications. Can consider changing inhaler in the future, has plenty of Symbicort currently but is costly. 5. Vitamin D deficiency - ICD9: 268.9, ICD10: E55.9 6. Osteoarthritis of lumbar spine, unspecified spinal osteoarthritis complication status - ICD9: 721.3, ICD10: M47.816 7. Benign prostatic hyperplasia, unspecified whether lower urinary tract symptoms present - ICD9: 600.00, ICD10: N40.0 Continue current medications. Continue with urologist 8. 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 Continue with Neuro Follow up in 6 months. Will call with lab results. I agree with the Chief Complaint, ROS, and Past Histories independently gathered by the clinical program support specialist and the remaining scribed note accurately describes my personal service to the patient. Medical Decision Making: Problems: Moderate: 2+ stable chronic illnesses Risk: Moderate: Drug management Medical Decision Making Level: 4 - Moderate Clarice Murillo MD The documentation for this note was completed by Marianne Escobar Ma acting as scribe for Clarice Murillo MD. November 30, 2021 3:42 PM. Marianne Escobar Ma documented in this encounterCity [facility] Nurse Note* Marianne Escobar Ma - 11/30/2021 3:46 PM EDT Falls Risk Intake: 1. Patient age 65 or over, unsteady, or was advised to use special equipment to aid ambulation (i.e., cane or walker)? Yes 2. Has the patient had two falls in the past year, or one with injury? Yes 3. Does the patient need to use their hands when pushing up from chair, or hold onto furniture whenambulating at home? Yes 4. Is the patient worried about falling? Yes Please inform patient that answering Yes to one or more of the questions above can increase theirrisk of falling Patient is at greater risk for falls. Falls Instruction: Teaching document below - reviewed and given to patient [facility] - Preventing Falls and Maintaining Balance documented in this encounterCity [facility]04-18-2022 History of Present illness Narrative* Marianne Balderas RN - 11/02/2021 9:51 AM EDT INSIGHT CDM TELEPHONIC OUTREACH Provider Action/FYI: Pt reports he is doing good, BP has been good, weight down to 199/200, states he feels good, has been user rescue inhaler a lot less. Pt had no questions/concerns/needs at this time. Contact made with patient: Yes Patient identified by name and . Discussed care with patient It s nice talking to you again. As a reminder, this is our bi-weekly check-in where I will be asking you questions about your health. This will only take a few minutes of your time. Is this a good time? Yes Symptoms What Chronic Disease(s) does the patient have: COPD Do you check your blood pressures at home? Yes, Enter readings: see fyi Do you have new or worse shortness of breath with activity? No Do you have new or worsening cough? No Do you have new or worsening wheezing? No Do you need to use your rescue (Albuterol) inhaler or nebulizer more often than normal? No Are you having any other symptoms that your PCP needs to know about? No Symptom Escalation The patient required an escalation for symptom(s)? No Medications Do you have any questions about taking your medication or which medications you should be on? No Do you need any medication refills at this time, including any of the medications you might take only when needed? No Social We would like to make sure you have what you need so that your basic needs are met- including your personal safety, food, housing and medications? Would you like to speak with a social work steam blocker to help give you support for any of these needs? No It can be normal to feel anxious or down during a time like this. Would you like to talk to a mental health professional about how you have been feeling? No Closing Thank you for taking the time to talk with me today. We want to work with you to ensure that we arekeeping your medical condition(s) well-controlled and to keep you healthy and out of the doctor's office or hospital. It s also not too late for me to sign you up for automated weekly questionnaires through [employer]. This is an easy way for us to stay connected each week. Are you interested? No, I understand. We can always sign you up in the future if you change your mind. Just as a reminder, will continue to call you every other week to check in on your health. Our calls should take 10-15 minutes or less. Remember, if you have concerns in between our calls, please call your PCP's office right away. Thank you. Enter next patient outreach date for two weeks on the same day of the week as today in the Track PtOutreach and End outreach. documented in this encounterCity [facility]03-21-[facility]22 History of Present illness Narrative* Marianne Balderas RN - 10/05/2021 11:58 AM EDT INSIGHT CDM TELEPHONIC OUTREACH Provider Action/FYI: Pt reports he is doing good, has moved into their new place, finalizing house sale today. Pt had no questions/concerns/needs at this time. Contact made with patient: Yes Patient identified by name and . Discussed care with patient It s nice talking to you again. As a reminder, this is our bi-weekly check-in where I will be asking you questions about your health. This will only take a few minutes of your time. Is this a good time? Yes Symptoms What Chronic Disease(s) does the patient have: COPD Do you check your blood pressures at home? Yes, Enter readings: Did not inquire Do you have new or worse shortness of breath with activity? No Do you have new or worsening cough? No Do you have new or worsening wheezing? No Do you need to use your rescue (Albuterol) inhaler or nebulizer more often than normal? No Are you having any other symptoms that your PCP needs to know about? No Symptom Escalation The patient required an escalation for symptom(s)? No Medications Do you have any questions about taking your medication or which medications you should be on? No Do you need any medication refills at this time, including any of the medications you might take only when needed? No Social We would like to make sure you have what you need so that your basic needs are met- including your personal safety, food, housing and medications? Would you like to speak with a social work steam blocker to help give you support for any of these needs? No It can be normal to feel anxious or down during a time like this. Would you like to talk to a mental health professional about how you have been feeling? No Closing Thank you for taking the time to talk with me today. We want to work with you to ensure that we arekeeping your medical condition(s) well-controlled and to keep you healthy and out of the doctor's office or hospital. It s also not too late for me to sign you up for automated weekly questionnaires through [employer]. This is an easy way for us to stay connected each week. Are you interested? No, I understand. We can always sign you up in the future if you change your mind. Just as a reminder, will continue to call you every other week to check in on your health. Our calls should take 10-15 minutes or less. Remember, if you have concerns in between our calls, please call your PCP's office right away. Thank you. Enter next patient outreach date for two weeks on the same day of the week as today in the Track PtOutreach and End outreach. documented in this encounterCity [facility]12-23-2014 History of Past illness Narrative* Problem Noted Date Resolved Date AAA (abdominal aortic aneurysm) 07/09/2014 11/25/2020 Overview: CT abd 06/2014 showing 4.4 x 4.2 cm AAA documented as of this encounter (statuses as of 10/05/2021) [facility] Narrative* Problem Noted Date Resolved Date AAA (abdominal aortic aneurysm) 07/09/2014 11/25/2020 Overview: CT abd 06/2014 showing 4.4 x 4.2 cm AAA documented as of this encounter (statuses as of 11/02/2021) [facility] Narrative* Problem Noted Date Resolved Date AAA (abdominal aortic aneurysm) 07/09/2014 11/25/2020 Overview: CT abd 06/2014 showing 4.4 x 4.2 cm AAA documented as of this encounter (statuses as of 12/01/2021) [facility] Narrative* Problem Noted Date Resolved Date AAA (abdominal aortic aneurysm) 07/09/2014 11/25/2020 Overview: CT abd 06/2014 showing 4.4 x 4.2 cm AAA documented as of this encounter (statuses as of 12/04/2021) [facility] Narrative* Problem Noted Date Resolved Date AAA (abdominal aortic aneurysm) 07/09/2014 11/25/2020 Overview: CT abd 06/2014 showing 4.4 x 4.2 cm AAA documented as of this encounter (statuses as of 01/19/2022) [facility] Narrative* Problem Noted Date Resolved Date AAA (abdominal aortic aneurysm) 07/09/2014 11/25/2020 Overview: CT abd 06/2014 showing 4.4 x 4.2 cm AAA documented as of this encounter (statuses as of 02/04/2022) [facility] Narrative* Problem Noted Date Resolved Date AAA (abdominal aortic aneurysm) 07/09/2014 11/25/2020 Overview: CT abd 06/2014 showing 4.4 x 4.2 cm AAA documented as of this encounter (statuses as of 02/15/2022) [facility] Narrative* Problem Noted Date Resolved Date AAA (abdominal aortic aneurysm) 07/09/2014 11/25/2020 Overview: CT abd 06/2014 showing 4.4 x 4.2 cm AAA documented as of this encounter (statuses as of 02/16/2022) [facility]arrative* Problem Noted Date Resolved Date AAA (abdominal aortic aneurysm) 07/09/2014 11/25/2020 Overview: CT abd 06/2014 showing 4.4 x 4.2 cm AAA documented as of this encounter (statuses as of 03/15/2022) [facility] Narrative* Problem Noted Date Resolved Date AAA (abdominal aortic aneurysm) 07/09/2014 11/25/2020 Overview: CT abd 06/2014 showing 4.4 x 4.2 cm AAA documented as of this encounter (statuses as of 04/12/2022) [facility]arr[facility]* Problem Noted Date Resolved Date AAA (abdominal aortic aneurysm) 07/09/2014 11/25/2020 Overview: CT abd 06/2014 showing 4.4 x 4.2 cm AAA documented as of this encounter (statuses as of 04/30/2022) [facility] Narrative* Problem Noted Date Resolved Date AAA (abdominal aortic aneurysm) 07/09/2014 11/25/2020 Overview: CT abd 06/2014 showing 4.4 x 4.2 cm AAA documented as of this encounter (statuses as of 06/04/2022) [facility]arrative* Problem Noted Date Resolved Date AAA (abdominal aortic aneurysm) 07/09/2014 11/25/2020 Overview: CT abd 06/2014 showing 4.4 x 4.2 cm AAA documented as of this encounter (statuses as of 06/14/2022) [facility]* Problem Noted Date Resolved Date AAA (abdominal aortic aneurysm) 07/09/2014 11/25/2020 Overview: CT abd 06/2014 showing 4.4 x 4.2 cm AAA documented as of this encounter (statuses as of 2022) [facility]* Problem Noted Date Resolved Date AAA (abdominal aortic aneurysm) 07/09/2014 11/25/2020 Overview: CT abd 06/2014 showing 4.4 x 4.2 cm AAA documented as of this encounter (statuses as of 2022) [facility]* Problem Noted Date Resolved Date AAA (abdominal aortic aneurysm) 07/09/2014 11/25/2020 Overview: CT abd 06/2014 showing 4.4 x 4.2 cm AAA documented as of this encounter (statuses as of 07/05/2022) [address]23-2014 History of Past illness Narrative* Problem Noted Date Resolved Date AAA (abdominal aortic aneurysm) 07/09/2014 11/25/2020 Overview: CT abd 06/2014 showing 4.4 x 4.2 cm AAA documented as of this encounter (statuses as of 07/06/2022) [address]23-2014 History of Past illness Narrative* Problem Noted Date Resolved Date AAA (abdominal aortic aneurysm) 07/09/2014 11/25/2020 Overview: CT abd 06/2014 showing 4.4 x 4.2 cm AAA documented as of this encounter (statuses as of 07/20/2022) [facility]* Problem Noted Date Resolved Date AAA (abdominal aortic aneurysm) 07/09/2014 11/25/2020 Overview: CT abd 06/2014 showing 4.4 x 4.2 cm AAA documented as of this encounter (statuses as of 07/21/2022) [facility]* Problem Noted Date Resolved Date AAA (abdominal aortic aneurysm) 07/09/2014 11/25/2020 Overview: CT abd 06/2014 showing 4.4 x 4.2 cm AAA documented as of this encounter (statuses as of 08/12/2022) [facility]* Problem Noted Date Resolved Date AAA (abdominal aortic aneurysm) 07/09/2014 11/25/2020 Overview: CT abd 06/2014 showing 4.4 x 4.2 cm AAA documented as of this encounter (statuses as of 08/19/2022) [facility]* Problem Noted Date Resolved Date AAA (abdominal aortic aneurysm) 07/09/2014 11/25/2020 Overview: CT abd 06/2014 showing 4.4 x 4.2 cm AAA documented as of this encounter (statuses as of 09/02/2022) [place] [address]-23-2014 History of Past illness Narrative* Problem Noted Date Resolved Date AAA (abdominal aortic aneurysm) 07/09/2014 11/25/2020 Overview: CT abd 06/2014 showing 4.4 x 4.2 cm AAA documented as of this encounter (statuses as of 09/07/2022) [facility]* Problem Noted Date Resolved Date AAA (abdominal aortic aneurysm) 07/09/2014 11/25/2020 Overview: CT abd 06/2014 showing 4.4 x 4.2 cm AAA documented as of this encounter (statuses as of 09/29/2022) [facility]* Problem Noted Date Resolved Date AAA (abdominal aortic aneurysm) 07/09/2014 11/25/2020 Overview: CT abd 06/2014 showing 4.4 x 4.2 cm AAA documented as of this encounter (statuses as of 10/06/2022) [facility]* Problem Noted Date Resolved Date AAA (abdominal aortic aneurysm) 07/09/2014 11/25/2020 Overview: CT abd 06/2014 showing 4.4 x 4.2 cm AAA documented as of this encounter (statuses as of 10/21/2022) [facility]* Problem Noted Date Resolved Date AAA (abdominal aortic aneurysm) 07/09/2014 11/25/2020 Overview: CT abd 06/2014 showing 4.4 x 4.2 cm AAA documented as of this encounter (statuses as of 10/26/2022) [facility]* Problem Noted Date Resolved Date AAA (abdominal aortic aneurysm) 07/09/2014 11/25/2020 Overview: CT abd 06/2014 showing 4.4 x 4.2 cm AAA documented as of this encounter (statuses as of 10/28/2022) [facility]* Problem Noted Date Resolved Date AAA (abdominal aortic aneurysm) 07/09/2014 11/25/2020 Overview: CT abd 06/2014 showing 4.4 x 4.2 cm AAA documented as of this encounter (statuses as of 10/29/2022) [facility]* Problem Noted Date Resolved Date AAA (abdominal aortic aneurysm) 07/09/2014 11/25/2020 Overview: CT abd 06/2014 showing 4.4 x 4.2 cm AAA documented as of this encounter (statuses as of 11/11/2022) [facility]* Problem Noted Date Resolved Date AAA (abdominal aortic aneurysm) 07/09/2014 11/25/2020 Overview: CT abd 06/2014 showing 4.4 x 4.2 cm AAA documented as of this encounter (statuses as of 11/15/2022) [facility]* Problem Noted Date Resolved Date AAA (abdominal aortic aneurysm) 07/09/2014 11/25/2020 Overview: CT abd 06/2014 showing 4.4 x 4.2 cm AAA documented as of this encounter (statuses as of 11/20/2022) [facility]* Problem Noted Date Resolved Date AAA (abdominal aortic aneurysm) 07/09/2014 11/25/2020 Overview: CT abd 06/2014 showing 4.4 x 4.2 cm AAA documented as of this encounter (statuses as of 11/26/2022) [facility]* Problem Noted Date Resolved Date AAA (abdominal aortic aneurysm) 07/09/2014 11/25/2020 Overview: CT abd 06/2014 showing 4.4 x 4.2 cm AAA documented as of this encounter (statuses as of 11/26/2022) [facility]* Problem Noted Date Resolved Date AAA (abdominal aortic aneurysm) 07/09/2014 11/25/2020 Overview: CT abd 06/2014 showing 4.4 x 4.2 cm AAA documented as of this encounter (statuses as of 11/30/2022) [facility]* Problem Noted Date Resolved Date AAA (abdominal aortic aneurysm) 07/09/2014 11/25/2020 Overview: CT abd 06/2014 showing 4.4 x 4.2 cm AAA documented as of this encounter (statuses as of 11/30/2022) [facility]* Problem Noted Date Resolved Date AAA (abdominal aortic aneurysm) 07/09/2014 11/25/2020 Overview: CT abd 06/2014 showing 4.4 x 4.2 cm AAA documented as of this encounter (statuses as of 12/23/2022) [facility]* Problem Noted Date Resolved Date AAA (abdominal aortic aneurysm) 07/09/2014 11/25/2020 Overview: CT abd 06/2014 showing 4.4 x 4.2 cm AAA documented as of this encounter (statuses as of 01/06/2023) [facility]* Problem Noted Date Diagnosed Date Resolved Date AAA (abdominal aortic aneurysm) 07/09/2014 11/25/2020 Overview: CT abd 06/2014 showing 4.4 x 4.2 cm AAA documented as of this encounter (statuses as of 01/27/2023) [facility]* Problem Noted Date Diagnosed Date Resolved Date AAA (abdominal aortic aneurysm) 07/09/2014 11/25/2020 Overview: CT abd 06/2014 showing 4.4 x 4.2 cm AAA documented as of this encounter (statuses as of 01/28/2023) [place] [address]2014 History of Past illness Narrative* Problem Noted Date Diagnosed Date Resolved Date AAA (abdominal aortic aneurysm) 07/09/2014 11/25/2020 Overview: CT abd 06/2014 showing 4.4 x 4.2 cm AAA documented as of this encounter (statuses as of 02/24/2023) [facility] of Past [facility] Narrative* Problem Noted Date Diagnosed Date Resolved Date AAA (abdominal aortic aneurysm) 07/09/2014 11/25/2020 Overview: CT abd 06/2014 showing 4.4 x 4.2 cm AAA documented as of this encounter (statuses as of 03/02/2023) [facility] of Past illness Narrative* Problem Noted Date Diagnosed Date Resolved Date AAA (abdominal aortic aneurysm) 07/09/2014 11/25/2020 Overview: CT abd 06/2014 showing 4.4 x 4.2 cm AAA documented as of this encounter (statuses as of 03/02/2023) [facility] History of Past illness Narrative* Problem Noted Date Diagnosed Date Resolved Date AAA (abdominal aortic aneurysm) 07/09/2014 11/25/2020 Overview: CT abd 06/2014 showing 4.4 x 4.2 cm AAA documented as of this encounter (statuses as of 03/08/2023) [facility] History [facility] Past illness Narrative* Problem Noted Date Diagnosed Date Resolved Date AAA (abdominal aortic aneurysm) 07/09/2014 11/25/2020 Overview: CT abd 06/2014 showing 4.4 x 4.2 cm AAA documented as of this encounter (statuses as of 03/15/2023) [facility] Narrative* Problem Noted Date Diagnosed Date Resolved Date AAA (abdominal aortic aneurysm) 07/09/2014 11/25/2020 Overview: CT abd 06/2014 showing 4.4 x 4.2 cm AAA documented as of this encounter (statuses as of 03/30/2023) [facility] Past [facility] Narrative* Problem Noted Date Diagnosed Date Resolved Date AAA (abdominal aortic aneurysm) 07/09/2014 11/25/2020 Overview: CT abd 06/2014 showing 4.4 x 4.2 cm AAA documented as of this encounter (statuses as of 05/03/2023) [facility] Past [facility] Narrative* Problem Noted Date Diagnosed Date Resolved Date AAA (abdominal aortic aneurysm) 07/09/2014 11/25/2020 Overview: CT abd 06/2014 showing 4.4 x 4.2 cm AAA documented as of this encounter (statuses as of 05/13/2023) [facility] Narrative* Problem Noted Date Diagnosed Date Resolved Date AAA (abdominal aortic aneurysm) 07/09/2014 11/25/2020 Overview: CT abd 06/2014 showing 4.4 x 4.2 cm AAA documented as of this encounter (statuses as of 05/22/2023) [facility] Narrative* Problem Noted Date Diagnosed Date Resolved Date AAA (abdominal aortic aneurysm) 07/09/2014 11/25/2020 Overview: CT abd 06/2014 showing 4.4 x 4.2 cm AAA documented as of this encounter (statuses as of 05/22/2023) [facility] Narrative* Problem Noted Date Diagnosed Date Resolved Date AAA (abdominal aortic aneurysm) 07/09/2014 11/25/2020 Overview: CT abd 06/2014 showing 4.4 x 4.2 cm AAA documented as of this encounter (statuses as of 05/22/2023) [facility] Narrative* Problem Noted Date Diagnosed Date Resolved Date AAA (abdominal aortic aneurysm) 07/09/2014 11/25/2020 Overview: CT abd 06/2014 showing 4.4 x 4.2 cm AAA documented as of this encounter (statuses as of 05/22/2023) [facility] Narrative* Problem Noted Date Diagnosed Date Resolved Date AAA (abdominal aortic aneurysm) 07/09/2014 11/25/2020 Overview: CT abd 06/2014 showing 4.4 x 4.2 cm AAA documented as of this encounter (statuses as of 06/03/2023) [facility] Past [facility] Narrative* Problem Noted Date Diagnosed Date Resolved Date AAA (abdominal aortic aneurysm) 07/09/2014 11/25/2020 Overview: CT abd 06/2014 showing 4.4 x 4.2 cm AAA documented as of this encounter (statuses as of 07/05/2023) [facility] Past [facility] Narrative* Problem Noted Date Diagnosed Date Resolved Date AAA (abdominal aortic aneurysm) 07/09/2014 11/25/2020 Overview: CT abd 06/2014 showing 4.4 x 4.2 cm AAA documented as of this encounter (statuses as of 09/14/2023) [facility] Narrative* Problem Noted Date Diagnosed Date Resolved Date AAA (abdominal aortic aneurysm) 07/09/2014 11/25/2020 Overview: CT abd 06/2014 showing 4.4 x 4.2 cm AAA documented as of this encounter (statuses as of 10/03/2023) [facility] Narrative* Problem Noted Date Diagnosed Date Resolved Date AAA (abdominal aortic aneurysm) 07/09/2014 11/25/2020 Overview: CT abd 06/2014 showing 4.4 x 4.2 cm AAA documented as of this encounter (statuses as of 10/07/2023) [facility] Narrative* Problem Noted Date Diagnosed Date Resolved Date AAA (abdominal aortic aneurysm) 07/09/2014 11/25/2020 Overview: CT abd 06/2014 showing 4.4 x 4.2 cm AAA documented as of this encounter (statuses as of 10/24/2023) [facility] Diagnosis Hyperlipidemia, unspecified hyperlipidemia type- Primary BENIGN HYPERTENSION Essential hypertension, benign Abdominal aortic aneurysm without rupture (HCC) Abdominal aneurysm without mention of rupture Chronic obstructive pulmonary disease, unspecified COPD type (HCC) Vitamin D deficiency Unspecified vitamin D deficiency Osteoarthritis of lumbar spine, unspecified spinal osteoarthritis complication status Benign prostatic hyperplasia, unspecified whether lower urinary tract symptoms present Vertebrobasilar artery syndrome [facility] Diagnosis Tinea pedis of left foot Dermatophytosis of foot [facility] Diagnosis Hyperlipidemia, unspecified hyperlipidemia type [facility] Diagnosis Essential hypertension, benign- Primary Hyperlipidemia, unspecified hyperlipidemia type Chronic obstructive pulmonary disease, unspecified COPD type (HCC) Osteoarthritis of lumbar spine, unspecified spinal osteoarthritis complication status Vitamin D deficiency Unspecified vitamin D deficiency Benign prostatic hyperplasia, unspecified whether lower urinary tract symptoms present Need for influenza vaccination Need for prophylactic vaccination and inoculation against influenza Acute pain of left shoulder Left hip pain Pain in joint, pelvic region and thigh [facility] Diagnosis Acute exacerbation of chronic obstructive pulmonary disease (COPD) (HCC)- Primary Obstructive chronic bronchitis with exacerbation [facility] Diagnosis Acute exacerbation of chronic obstructive pulmonary disease (COPD) (HCC) Obstructive chronic bronchitis with exacerbation [facility] Diagnosis 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- Primary Lung nodules Other nonspecific abnormal finding of lung field Former cigarette smoker Personal history of tobacco use, presenting hazards to health [facility] Diagnosis GERD without esophagitis Esophageal reflux [facility] Diagnosis Acute pain of both shoulders- Primary Right renal mass Unspecified disorder of kidney and ureter Abdominal aortic aneurysm (AAA) without rupture, unspecified part (HCC) [facility] Acute pain of both shoulders- Primary Right renal mass Unspecified disorder of kidney and ureter Abdominal aortic aneurysm (AAA) without rupture, unspecified part (HCC) [facility] Diagnosis Bilateral shoulder pain, unspecified chronicity- Primary [facility] Diagnosis Abdominal aortic aneurysm (AAA) without rupture, unspecified part (HCC) [facility] Diagnosis Benign non-nodular prostatic hyperplasia with lower urinary tract symptoms- Primary Right renal mass Unspecified disorder of kidney and ureter [facility] Diagnosis Chronic pain of both shoulders- Primary Pain in joint, shoulder region Acute pain of both shoulders Primary osteoarthritis of both shoulders [facility] Diagnosis BENIGN HYPERTENSION Essential hypertension, benign [facility] Diagnosis Encounter for screening for cardiovascular disorders Screening for other and unspecified cardiovascular conditions [facility] Diagnosis Asthma with COPD with exacerbation (HCC)- Primary Chronic obstructive asthma with exacerbation Lung nodules Other nonspecific abnormal finding of lung field Former cigarette smoker Personal history of tobacco use, presenting hazards to health Abdominal aortic aneurysm (AAA) without rupture, unspecified part (HCC) [facility] Diagnosis Pre-operative examination- Primary Preoperative examination, unspecified Chronic obstructive pulmonary disease, unspecified COPD type (HCC) Vertebrobasilar artery syndrome Benign non-nodular prostatic hyperplasia with lower urinary tract symptoms Renal cyst Unspecified congenital cystic kidney disease Hyperlipidemia, unspecified hyperlipidemia type Essential hypertension, benign 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), 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, left Osteoarthritis of lumbar spine, unspecified spinal osteoarthritis complication status Neuropathy Mononeuritis of unspecified site Bilateral carotid artery stenosis Occlusion and stenosis of carotid artery without mention of cerebral infarction Lung nodule Solitary pulmonary nodule Abdominal aortic aneurysm (AAA) without rupture, unspecified part (HCC) [facility] Diagnosis Procedure not carried out- Primary Procedure not carried out for other reasons [facility] Diagnosis Abdominal aortic aneurysm (AAA) without rupture, unspecified part (HCC)- Primary Peripheral arterial disease (HCC) Peripheral vascular disease, unspecified Primary hypertension Unspecified essential hypertension Elevated HDL Other symptoms involving cardiovascular system [facility] Diagnosis COPD with exacerbation (HCC)- Primary Obstructive chronic bronchitis with exacerbation Essential hypertension, benign Hyperlipidemia, unspecified hyperlipidemia type Abdominal aortic aneurysm (AAA) without rupture, unspecified part (HCC) GERD without esophagitis Esophageal reflux Acute pain of both shoulders Neuropathy Mononeuritis of unspecified site [facility] Diagnosis Hyperlipidemia, unspecified hyperlipidemia type [facility] Diagnosis 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) [facility] Diagnosis 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) [facility] Diagnosis Bilateral shoulder pain, unspecified chronicity [facility] Diagnosis Lung nodules Other nonspecific abnormal finding of lung field [facility] Diagnosis Asthma-COPD overlap syndrome- Primary Lung nodules Other nonspecific abnormal finding of lung field Former cigarette smoker Personal history of tobacco use, presenting hazards to health GERD without esophagitis- Primary Esophageal reflux Essential hypertension, benign Abdominal aortic aneurysm (AAA) without rupture, unspecified part (HCC) Hyperlipidemia, unspecified hyperlipidemia type COPD with exacerbation (HCC) Obstructive chronic bronchitis with exacerbation Neuropathy Mononeuritis of unspecified site [facility] Diagnosis Bronchitis- Primary Bronchitis, not specified as acute or chronic GERD without esophagitis Esophageal reflux Essential hypertension, benign Abdominal aortic aneurysm (AAA) without rupture, unspecified part (HCC) Hyperlipidemia, unspecified hyperlipidemia type Neuropathy Mononeuritis of unspecified site Chronic obstructive pulmonary disease, unspecified COPD type (HCC) Acute pain of both shoulders [facility] Diagnosis BENIGN HYPERTENSION Essential hypertension, benign [facility] Diagnosis Asthma-COPD overlap syndrome (HCC) [facility] Diagnosis COPD with chronic bronchitis (HCC)- Primary Obstructive chronic bronchitis without exacerbation Right lower lobe lung mass Swelling, mass, or lump in chest ILD (interstitial lung disease) (HCC) Postinflammatory pulmonary fibrosis Former cigarette smoker Personal history of tobacco use, presenting hazards to health [facility] Diagnosis Essential hypertension, benign- Primary Hyperlipidemia, unspecified hyperlipidemia type Abdominal aortic aneurysm (AAA) without rupture, unspecified part (HCC) GERD without esophagitis Esophageal reflux Neuropathy Mononeuritis of unspecified site Chronic obstructive pulmonary disease, unspecified COPD type (HCC) Acute pain of both shoulders [facility] Diagnosis Neuropathy- Primary Mononeuritis of unspecified site [facility] Diagnosis Pre-operative examination- Primary Preoperative examination, unspecified Chronic obstructive pulmonary disease, unspecified COPD type (HCC) Vertebrobasilar artery syndrome Benign non-nodular prostatic hyperplasia with lower urinary tract symptoms Renal cyst Unspecified congenital cystic kidney disease Hyperlipidemia, unspecified hyperlipidemia type Essential hypertension, benign 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), 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, left Osteoarthritis of lumbar spine, unspecified spinal osteoarthritis complication status Neuropathy Mononeuritis of unspecified site Bilateral carotid artery stenosis Occlusion and stenosis of carotid artery without mention of cerebral infarction Lung nodule Solitary pulmonary nodule Essential hypertension, benign- Primary Hyperlipidemia, unspecified hyperlipidemia type Abdominal aortic aneurysm (AAA) without rupture, unspecified part (HCC) GERD without esophagitis Esophageal reflux COPD with exacerbation (HCC) Obstructive chronic bronchitis with exacerbation Neuropathy 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 Pain in joint, shoulder region Encounter for immunization Need for other specified prophylactic vaccination against single bacterial disease [facility] Diagnosis Acute cough Pre-operative examination- Primary Preoperative examination, unspecified Chronic obstructive pulmonary disease, unspecified COPD type (HCC) Vertebrobasilar artery syndrome Benign non-nodular prostatic hyperplasia with lower urinary tract symptoms Renal cyst Unspecified congenital cystic kidney disease Hyperlipidemia, unspecified hyperlipidemia type Essential hypertension, benign 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), 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, left Osteoarthritis of lumbar spine, unspecified spinal osteoarthritis complication status Neuropathy Mononeuritis of unspecified site Bilateral carotid artery stenosis Occlusion and stenosis of carotid artery without mention of cerebral infarction Lung nodule Solitary pulmonary nodule [facility] Diagnosis Pre-operative examination- Primary Preoperative examination, unspecified Chronic obstructive pulmonary disease, unspecified COPD type (HCC) Vertebrobasilar artery syndrome Benign non-nodular prostatic hyperplasia with lower urinary tract symptoms Renal cyst Unspecified congenital cystic kidney disease Hyperlipidemia, unspecified hyperlipidemia type Essential hypertension, benign 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), 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, left Osteoarthritis of lumbar spine, unspecified spinal osteoarthritis complication status Neuropathy Mononeuritis of unspecified site Bilateral carotid artery stenosis Occlusion and stenosis of carotid artery without mention of cerebral infarction Lung nodule Solitary pulmonary nodule Hyperlipidemia, unspecified hyperlipidemia type [facility] Diagnosis Pre-operative examination- Primary Preoperative examination, unspecified Chronic obstructive pulmonary disease, unspecified COPD type (HCC) Vertebrobasilar artery syndrome Benign non-nodular prostatic hyperplasia with lower urinary tract symptoms Renal cyst Unspecified congenital cystic kidney disease Hyperlipidemia, unspecified hyperlipidemia type Essential hypertension, benign 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), 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, left Osteoarthritis of lumbar spine, unspecified spinal osteoarthritis complication status Neuropathy Mononeuritis of unspecified site Bilateral carotid artery stenosis Occlusion and stenosis of carotid artery without mention of cerebral infarction Lung nodule Solitary pulmonary nodule Essential hypertension, benign- Primary Abdominal aortic aneurysm (AAA) without rupture, unspecified part (HCC) Hyperlipidemia, unspecified hyperlipidemia type GERD without esophagitis Esophageal reflux COPD with exacerbation (HCC) Obstructive chronic bronchitis with exacerbation Neuropathy 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 Pain in joint, shoulder region Mild intermittent asthma without complication Unspecified asthma Elevated glucose Other abnormal glucose Dizziness Dizziness and giddiness Screening for depression Encounter for screening examination for other mental health and behavioral disorders documented in this encounter [facility]* Diagnosis Pre-operative examination- Primary Preoperative examination, unspecified Chronic obstructive pulmonary disease, unspecified COPD type (HCC) Vertebrobasilar artery syndrome Benign non-nodular prostatic hyperplasia with lower urinary tract symptoms Renal cyst Unspecified congenital cystic kidney disease Hyperlipidemia, unspecified hyperlipidemia type Essential hypertension, benign 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), 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, left Osteoarthritis of lumbar spine, unspecified spinal osteoarthritis complication status Neuropathy Mononeuritis of unspecified site Bilateral carotid artery stenosis Occlusion and stenosis of carotid artery without mention of cerebral infarction Lung nodule Solitary pulmonary nodule Bilateral shoulder pain, unspecified chronicity- Primary [facility] Diagnosis Pre-operative examination- Primary Preoperative examination, unspecified Chronic obstructive pulmonary disease, unspecified COPD type (HCC) Vertebrobasilar artery syndrome Benign non-nodular prostatic hyperplasia with lower urinary tract symptoms Renal cyst Unspecified congenital cystic kidney disease Hyperlipidemia, unspecified hyperlipidemia type Essential hypertension, benign 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), 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, left Osteoarthritis of lumbar spine, unspecified spinal osteoarthritis complication status Neuropathy Mononeuritis of unspecified site Bilateral carotid artery stenosis Occlusion and stenosis of carotid artery without mention of cerebral infarction Lung nodule Solitary pulmonary nodule GERD without esophagitis Esophageal reflux [facility] Diagnosis Pre-operative examination- Primary Preoperative examination, unspecified Chronic obstructive pulmonary disease, unspecified COPD type (HCC) Vertebrobasilar artery syndrome Benign non-nodular prostatic hyperplasia with lower urinary tract symptoms Renal cyst Unspecified congenital cystic kidney disease Hyperlipidemia, unspecified hyperlipidemia type Essential hypertension, benign 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), 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, left Osteoarthritis of lumbar spine, unspecified spinal osteoarthritis complication status Neuropathy Mononeuritis of unspecified site Bilateral carotid artery stenosis Occlusion and stenosis of carotid artery without mention of cerebral infarction Lung nodule Solitary pulmonary nodule COPD, mild (HCC)- Primary Chronic airway obstruction, not elsewhere classified Lobular atelectasis Pulmonary collapse Former cigarette smoker Personal history of tobacco use, presenting hazards to health [facility]* Diagnosis Pre-operative examination- Primary Preoperative examination, unspecified Chronic obstructive pulmonary disease, unspecified COPD type (HCC) Vertebrobasilar artery syndrome Benign non-nodular prostatic hyperplasia with lower urinary tract symptoms Renal cyst Unspecified congenital cystic kidney disease Hyperlipidemia, unspecified hyperlipidemia type Essential hypertension, benign 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), 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, left Osteoarthritis of lumbar spine, unspecified spinal osteoarthritis complication status Neuropathy Mononeuritis of unspecified site Bilateral carotid artery stenosis Occlusion and stenosis of carotid artery without mention of cerebral infarction Lung nodule Solitary pulmonary nodule Asthma-COPD overlap syndrome (HCC) documented [facility]* Diagnosis Pre-operative examination- Primary Preoperative examination, unspecified Chronic obstructive pulmonary disease, unspecified COPD type (HCC) Vertebrobasilar artery syndrome Benign non-nodular prostatic hyperplasia with lower urinary tract symptoms Renal cyst Unspecified congenital cystic kidney disease Hyperlipidemia, unspecified hyperlipidemia type Essential hypertension, benign 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), 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, left Osteoarthritis of lumbar spine, unspecified spinal osteoarthritis complication status Neuropathy Mononeuritis of unspecified site Bilateral carotid artery stenosis Occlusion and stenosis of carotid artery without mention of cerebral infarction Lung nodule Solitary pulmonary nodule URI with cough and congestion- Primary COPD with acute exacerbation (HCC) Obstructive chronic bronchitis with exacerbation Asthma with COPD with exacerbation (HCC) Chronic obstructive asthma with exacerbation [facility] Diagnosis Pre-operative examination- Primary Preoperative examination, unspecified Chronic obstructive pulmonary disease, unspecified COPD type (HCC) Vertebrobasilar artery syndrome Benign non-nodular prostatic hyperplasia with lower urinary tract symptoms Renal cyst Unspecified congenital cystic kidney disease Hyperlipidemia, unspecified hyperlipidemia type Essential hypertension, benign 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), 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, left Osteoarthritis of lumbar spine, unspecified spinal osteoarthritis complication status Neuropathy Mononeuritis of unspecified site Bilateral carotid artery stenosis Occlusion and stenosis of carotid artery without mention of cerebral infarction Lung nodule Solitary pulmonary nodule BENIGN HYPERTENSION Essential hypertension, benign documented in this encounter [facility] note* Diagnosis Pre-operative examination- Primary Preoperative examination, unspecified Chronic obstructive pulmonary disease, unspecified COPD type (HCC) Vertebrobasilar artery syndrome Benign non-nodular prostatic hyperplasia with lower urinary tract symptoms Renal cyst Unspecified congenital cystic kidney disease Hyperlipidemia, unspecified hyperlipidemia type Essential hypertension, benign 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), 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, left Osteoarthritis of lumbar spine, unspecified spinal osteoarthritis complication status Neuropathy Mononeuritis of unspecified site Bilateral carotid artery stenosis Occlusion and stenosis of carotid artery without mention of cerebral infarction Lung nodule Solitary pulmonary nodule Essential hypertension, benign- Primary Abdominal aortic aneurysm (AAA) without rupture, unspecified part Hyperlipidemia, unspecified hyperlipidemia type Chronic pain of both shoulders Pain in joint, shoulder region Neuropathy Mononeuritis of unspecified site Primary osteoarthritis of both shoulders Pulmonary emphysema, unspecified emphysema type (HCC) Pedal edema Edema documented in this encounter [facility] note* Diagnosis Pre-operative examination- Primary Preoperative examination, unspecified Chronic obstructive pulmonary disease, unspecified COPD type (HCC) Vertebrobasilar artery syndrome Benign non-nodular prostatic hyperplasia with lower urinary tract symptoms Renal cyst Unspecified congenital cystic kidney disease Hyperlipidemia, unspecified hyperlipidemia type Essential hypertension, benign 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), 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, left Osteoarthritis of lumbar spine, unspecified spinal osteoarthritis complication status Neuropathy Mononeuritis of unspecified site Bilateral carotid artery stenosis Occlusion and stenosis of carotid artery without mention of cerebral infarction Lung nodule Solitary pulmonary nodule Chronic pain of both shoulders Pain in joint, shoulder region [facility] Diagnosis Pre-operative examination- Primary Preoperative examination, unspecified Chronic obstructive pulmonary disease, unspecified COPD type (HCC) Vertebrobasilar artery syndrome Benign non-nodular prostatic hyperplasia with lower urinary tract symptoms Renal cyst Unspecified congenital cystic kidney disease Hyperlipidemia, unspecified hyperlipidemia type Essential hypertension, benign 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), 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, left Osteoarthritis of lumbar spine, unspecified spinal osteoarthritis complication status Neuropathy Mononeuritis of unspecified site Bilateral carotid artery stenosis Occlusion and stenosis of carotid artery without mention of cerebral infarction Lung nodule Solitary pulmonary nodule Primary osteoarthritis of right knee Primary localized osteoarthrosis, lower leg [facility] Diagnostic Procedure Only (Routine) - Pending Review Specialty Diagnoses / Procedures Referred By Contac t Referred To Contact XR IMAGING Diagnoses Bilateral shoulder pain, unspecified chronicity Procedures XR SHOULDER GENERAL 3V OR MORE AP/TRUE AP/OTHER RIGHT RADEX SHOULDER COMPLETE MINIMUM 2 VIEWS Fabio Noriega MD [address] [place] [address] Xr Imaging Referral ID Status Reason Start Date Expiration Date Visits Requested Visits Authorized [id number] Pending Review Auto-Generat ed Referral 10/06/2022 11/05/2023 1 1 * Diagnostic Procedure Only (Routine) - Pending Review Specialty Diagnoses / Procedures Referred By Contac t Referred To Contact XR IMAGING Diagnoses Bilateral shoulder pain, unspecified chronicity Procedures XR SHOULDER GENERAL 3V OR MORE AP/TRUE AP/OTHER LEFT RADEX SHOULDER COMPLETE MINIMUM 2 VIEWS Fabio Noriega MD [address] [place] [address] Xr Imaging Referral ID Status Reason Start Date Expiration Date Visits Requested Visits Authorized [id number] Pending Review Auto-Generat ed Referral 10/06/2022 11/05/2023 1 1 [facility] for referral (narrative)* Diagnostic Procedure Only (Routine) - Closed Specialty Diagnoses / Procedures Referred By Contac t Referred To Contact MOLECULAR & FUNCTIONAL IMAGING Diagnoses Encounter for screening for cardiovascular disorders Procedures NM CARDIAC PERF STRESS/PHARM MYOCARDIAL SPECT MULTIPLE STUDIES Eladio Pablo MD [address] [place] [id number] Molecular & Functional Imaging [address] [place] [address] Referral ID Status Reason Start Date Expiration Date V isits Requested Visits Authorized [id number] Closed Auto-Generate d Referral 11/17/2022 07/17/2023 1 1 [facility] for referral (narrative)* Outpatient Procedure (Routine) - Pending Review Specialty Diagnoses / Procedures Referred By Contac t Referred To Contact [facility] Diagnoses Abdominal aortic aneurysm (AAA) without rupture, unspecified part (HCC) Procedures US ABD AORTA COMPLETE VAS LAB DUP-SCAN AORTA IVC ILIAC VASCL/BPGS COMPLETE Ibeth Paredes, VENEER MANUFACTURER.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 [address] [place] [address] [facility] [place] [address] [place] [address] Referral ID Status Reason Start Date Expiration Date Visits Requested Visits Authorized [id number] Pending Review Auto-Generat ed Referral 09/08/2023 03/07/2024 1 1 [facility] for referral (narrative)* Diagnostic Procedure Only (Routine) - Closed Specialty Diagnoses / Procedures Referred By Contac t Referred To Contact XR IMAGING Diagnoses Bilateral shoulder pain, unspecified chronicity Procedures XR SHOULDER GENERAL 3V OR MORE AP/TRUE AP/OTHER RIGHT RADEX SHOULDER COMPLETE MINIMUM 2 VIEWS Fabio Noriega MD [address] [place] [address] [place] [address] Referral ID Status Reason Start Date Expiration Date V isits Requested Visits Authorized [id number] Closed Auto-Generate d Referral 10/06/2022 11/05/2023 1 1 * Diagnostic Procedure Only (Routine) - Closed Specialty Diagnoses / Procedures Referred By Contac t Referred To Contact XR IMAGING Diagnoses Bilateral shoulder pain, unspecified chronicity Procedures XR SHOULDER GENERAL 3V OR MORE AP/TRUE AP/OTHER LEFT RADEX SHOULDER COMPLETE MINIMUM 2 VIEWS Fabio Noriega MD [address] [place] [address] [place] [address] Referral ID Status Reason Start Date Expiration Date V isits Requested Visits Authorized [id number] Closed Auto-Generate d Referral 10/06/2022 11/05/2023 1 1 [facility] for referral (narrative)* Diagnostic Procedure Only (Routine) - New Request Specialty Diagnoses / Procedures Referred By Contac t Referred To Contact XR IMAGING Diagnoses Bilateral shoulder pain, unspecified chronicity Procedures XR SHOULDER GENERAL 3V OR MORE AP/TRUE AP/OTHER RIGHT RADEX SHOULDER COMPLETE MINIMUM 2 VIEWS Fabio Noriega MD [address] [place] [address] [place] [address] Referral ID Status Reason Start Date Expiration Date Visits Requested Visits Authorized [id number] New Request Auto-Generat ed Referral 08/15/2024 09/14/2025 1 1 * Diagnostic Procedure Only (Routine) - New Request Specialty Diagnoses / Procedures Referred By Contac t Referred To Contact XR IMAGING Diagnoses Bilateral shoulder pain, unspecified chronicity Procedures XR SHOULDER GENERAL 3V OR MORE AP/TRUE AP/OTHER LEFT RADEX SHOULDER COMPLETE MINIMUM 2 VIEWS Fabio Noriega MD [address] [place] [address] [place] [address] Referral ID Status Reason Start Date Expiration Date Visits Requested Visits Authorized [id number] New Request Auto-Generat ed Referral 08/15/2024 09/14/2025 1 1 [facility] for visit Narrative* Diagnostic Procedure Only (Routine) - Closed Specialty Diagnoses / Procedures Referred By Contac t Referred To Contact MOLECULAR & FUNCTIONAL IMAGING Diagnoses Encounter for screening for cardiovascular disorders Procedures NM CARDIAC PERF STRESS/PHARM MYOCARDIAL SPECT MULTIPLE STUDIES Eladio Pablo MD [address] [place] [address] Molecular & Functional Imaging [address] [place] [address] Referral ID Status Reason Start Date Expiration Date V isits Requested Visits Authorized [id number] Closed Auto-Generate d Referral 11/17/2022 07/17/2023 1 1 [facility] for visit Narrative* Diagnostic Procedure Only (Routine) - Closed Specialty Diagnoses / Procedures Referred By Contac t Referred To Contact XR IMAGING Diagnoses Bilateral shoulder pain, unspecified chronicity Procedures XR SHOULDER GENERAL 3V OR MORE AP/TRUE AP/OTHER RIGHT RADEX SHOULDER COMPLETE MINIMUM 2 VIEWS Fabio Noriega MD [address] [place] [address] [place] [address] Referral ID Status Reason Start Date Expiration Date V isits Requested Visits Authorized [id number] Closed Auto-Generate d Referral 10/06/2022 11/05/2023 1 1 [facility] for visit Narrative* Diagnostic Procedure Only (Routine) - Closed Specialty Diagnoses / Procedures Referred By Contac t Referred To Contact XR IMAGING Diagnoses Chronic pain of both shoulders Procedures XR SHOULDER GENERAL 3V OR MORE AP/TRUE AP/OTHER LEFT RADEX SHOULDER COMPLETE MINIMUM 2 VIEWS Clarice Murillo MD [address] [place] [address] Phone: tel: fax: [place] [address] Referral ID Status Reason Start Date Expiration Date V isits Requested Visits Authorized [id number] Closed Auto-Generate d Referral 02/05/2025 03/07/2026 1 1 [facility] Diagnostic Procedure Only (Routine) - Closed Specialty Diagnoses / Procedures Referred By Contac t Referred To Contact XR IMAGING Diagnoses Primary osteoarthritis of right knee Procedures XR KNEE GENERAL 4V AP BOTH/PA BOTH/LAT/MERC RIGHT RADIOLOGIC EXAM KNEE COMPLETE 4/MORE VIEWS Ynes Talamantes PA-C [address] [place] [address] Phone: tel: fax: [place] [address] Referral ID Status Reason Start Date Expiration Date V isits Requested Visits Authorized [id number] Closed Auto-Generate d Referral 02/22/2025 03/24/2026 1 1 [facility] Family History No Family History Records Found Relationship Condition Age at Onset Recorded Date/T angela Unknown Family History?Heart Disease Unknown June 28, 2018 5:20pm Family History?Hypertension, - Unknown June 28, 2018 5:20pm Family History?Hypertension, - Unknown April 11, 2019 10:29am Advance Directives No Advanced Directives Records FoundDocuments on File Type Date Recorded Patient Cardiovascular Disease Specialist Expl anation Advance Directive(s) 11/15/2016 12:20 PM Advance Directive Response Recorded Date/ Time Do you have a Healthcare Power of [employer]? No November 08, 2024 9:03pm Advance Directives No March 10:29am Health Concerns Infection Onset Date Last Indicated Resolved Time COVID-19 Rule-Out 06/08/2022 06/08/2022 06/09/2022 5:29 AM EST Reason for Referral Specialty Diagnoses / Procedures Referred By Contac t Referred To Contact CT IMAGING Diagnoses Lung nodules Procedures CT CHEST WO IVCON DIAGNOSTIC COMPUTED TOMOGRAPHY THORAX W/O Francia Arredondo MD [address] [place] [address] Ct Imaging Referral ID Status Reason Start Date Expiration Date Visits Requested Visits Authorized [id number] Pending Review Auto-Generat ed Referral 12/2008/05/2023 1 1 Specialty Diagnoses / Procedures Referred By Contac t Referred To Contact [facility] Diagnoses SOB (shortness of breath) Procedures SPIROMETRY WITH DILATOR IF OBSTRUCTED BRNCDILAT RSPSE SPMTRY PRE&POST-BRNCDILAT ADMFrancia Chase MD [address] [place] [address] Respiratory [place] [address] [place] [address] Referral ID Status Reason Start Date Expiration Date V isits Requested Visits Authorized [id number] Closed Auto-Generate d Referral 07/06/2022 08/05/2023 1 1 Specialty Diagnoses / Procedures Referred By Contac t Referred To Contact Orthopedics Diagnoses Acute pain of both shoulders Procedures CONSULT TO ORTHOPAEDICS OFFICE/OUTPATIENT [facility] 60-74 MINUTES Karla Campuzano APRN.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[place] [address] Referral ID Status Reason Start Date Expiration Date Visits Requested Visits Authorized [id number] Pending Review PCP Requested Referral 09/29/2022 09/29/2023 1 1 Specialty Diagnoses / Procedures Referred By Contac t Referred To Contact Urology Diagnoses Right renal mass Procedures CONSULT TO UROLOGY OFFICE/OUTPATIENT [facility] 60-74 MINUTES Karla Campuzano APRN.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 [address] [place] [address] Referral ID Status Reason Start Date Expiration Date Visits Requested Visits Authorized [id number] Pending Review PCP Requested Referral 09/29/2022 09/29/2023 1 1 Specialty Diagnoses / Procedures Referred By Contac t Referred To Contact Vascular Surgery Diagnoses Abdominal aortic aneurysm (AAA) without rupture, unspecified part (HCC) Procedures CONSULT TO VASCULAR SURGERY OFFICE/OUTPATIENT [facility] 60-74 MINUTES Karla Campuzano APRN.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 [address] [place] [address] Referral ID Status Reason Start Date Expiration Date Visits Requested Visits Authorized [id number] Pending Review PCP Requested Referral 09/29/2022 09/29/2023 1 1 Specialty Diagnoses / Procedures Referred By Contac t Referred To Contact CT IMAGING Diagnoses 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) Procedures CT ABD/PEL WO IVCON CT ABD & PELVIS W/O CONTRAST Briana Nolen DO [address] [place] [address] Ct Imaging [facility] Referral ID Status Reason Start Date Expiration Date V isits Requested Visits Authorized [id number] Closed Auto-Generate d Referral 09/30/2022 07/17/2023 1 1 Specialty Diagnoses / Procedures Referred By Contac t Referred To Contact CT IMAGING Diagnoses 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) Procedures CTA ABD/PEL WO/W IVCON CT ANGIO ABD&PLVIS CNTRST MTRL W/WO CNTRST Eladio Mckoy MD [address] [place] [address] Ct Imaging [place] [address] Referral ID Status Reason Start Date Expiration Date V isits Requested Visits Authorized [id number] Closed Auto-Generate d Referral 02/25/2023 07/17/2023 1 1 Specialty Diagnoses / Procedures Referred By Contac t Referred To Contact CT IMAGING Diagnoses Lung nodules Procedures CT CHEST WO IVCON DIAGNOSTIC COMPUTED TOMOGRAPHY THORAX W/O CNTRST Francia Luna MD [address] [place] [address] Ct Imaging [place] [address] Referral ID Status Reason Start Date Expiration Date V isits Requested Visits Authorized [id number] Closed Auto-Generat ed Referral Patient Cleared - Admin/Chairm an/Director advise to proceed or did not respond 07/07/2022 01/03/2023 1 1 Medications Administered Section Inactive Administered Medications - up to 3 most recent administrations Medication Order MAR Action Action Date Dose Rate Site betamethasone acetate-betamethasone sodium phosphate 6 mg injection (CELESTONE) 6 mg, Injection - FOR ORTHO USE ONLY, ONE TIME INJECTION, 1 dose, Starting on Tue10/11/22 at 1108, Until Tue10/11/22 at 1108 Given 10/11/2022 11:08 AM EDT 6 mg Shoulder, Left betamethasone acetate-betamethasone sodium phosphate 6 mg injection (CELESTONE) 6 mg, Injection - FOR ORTHO USE ONLY, ONE TIME INJECTION, 1 dose, Starting on Tue10/11/22 at 1108, Until Tue10/11/22 at 1108 Given 10/11/2022 11:08 AM EDT 6 mg Shoulder, Right lidocaine (PF) 10 mg/mL (1 %) 4 mL injection (XYLOCAINE) 4 mL, Injection - FOR ORTHO USE ONLY, ONE TIME INJECTION, 1 dose, Starting on Tue10/11/22 at 1108, Until Tue10/11/22 at 1108 Given 10/11/2022 11:08 AM EDT 4 mL Shoulder, Left lidocaine (PF) 10 mg/mL (1 %) 4 mL injection (XYLOCAINE) 4 mL, Injection - FOR ORTHO USE ONLY, ONE TIME INJECTION, 1 dose, Starting on Tue10/11/22 at 1108, Until Tue10/11/22 at 1108 Given 10/11/2022 11:08 AM EDT 4 mL Shoulder, Right Inactive Administered Medications - up to 3 most recent administrations Medication Order MAR Action Action Date Dose Rate Site regadenoson 0.4 mg injection (LEXISCAN) 0.4 mg, INTRAVENOUS, ONCE, 1 dose, On Tue11/29/22 at 1200, Give 0.4 mg (5 mL) over ~10 seconds, followed immediately by a 5 mL saline flush. Wait 10-20 seconds, then administer the radionuclide myocardial perfusion imaging agent. Given 11/29/2022 10:30 AM EDT 0.4 mg Chief Complaint and Reason for Visit Chief Complaint Admit Date UPPER EXT November 08, 2024 6:5 3pm LEFT WRIST CELLULITIS WITH POSSIBLE SEPT IC November 08, 2024 8:32pm LEFT WRIST CELLULITIS WITH POSSIBLE SEPT IC November 09, 2024 9:49am LEFT WRIST CELLULITIS WITH POSSIBLE SEPT IC November 09, 2024 10:09am LEFT WRIST CELLULITIS WITH POSSIBLE SEPT IC November 10, 2024 9:38am LEFT WRIST CELLULITIS WITH POSSIBLE SEPT IC November 10, 2024 9:47am Reason for Visit Admit Date Cellulitis November 08, 2024 8:3 2pm Dehydration November 08, 2024 8:3 2pm Gout November 08, 2024 8:3 2pm History of hypertension November 08, 2024 8:32pm Left wrist pain November 08, 2024 8:3 2pm Overweight (BMI 25.0-29.9) November 08 025 8:32pm Swelling of joint of left wrist November 082024 8:32pm Additional Source Comments (unrecognized sect ion and content) No Status Records FoundNo Status Records FoundNo Status Records FoundNo Status Records FoundNo Status Records FoundNo Status Records Found INFORMATION SOURCE (unrecogn ized section and content) DATE CREATED AUTHOR 02/13/2018 Anoop Garcia [facility] DATE CREATED AUTHOR AUTHOR'S ORGANIZ ATION 12/18/2018 [facility] DATE CREATED AUTHOR AUTHOR'S ORGANIZ ATION 11/29/2022 [facility] DATE CREATED AUTHOR AUTHOR'S ORGANIZ ATION 02/01/2023 [facility] DATE CREATED AUTHOR AUTHOR'S ORGANIZ ATION 02/25/2025 [facility] DATE CREATED AUTHOR AUTHOR'S ORGANIZ ATION 03/07/2025 [facility] Source Comments (unrecognize d section and content) In the event this informatio n is protected by the Federal Confidentiality of Alcohol and Drug Abuse Patient Records regulations: The Federal rules restrict any use of the information to criminally investigate or prosecute any alcohol or drug abuse patient.[facility] the event this information is protected by the Federal Confidentiality of Alcohol and Drug Abuse Patient Records regulations: The Federal rules restrict any use of the information to criminally investigate or prosecute any alcohol or drug abuse patient.[facility] the event this information is protected by the Federal Confidentiality of Alcohol and Drug Abuse Patient Records regulations: The Federal rules restrict any use of the information to criminally investigate or prosecute any alcohol or drug abuse patient.[facility] the event this information is protected by the Federal Confidentiality of Alcohol and Drug Abuse Patient Records regulations: The Federal rules restrict any use of the information to criminally investigate or prosecute any alcohol or drug abuse patient.[facility] the event this information is protected by the Federal Confidentiality of Alcohol and Drug Abuse Patient Records regulations: The Federal rules restrict any use of the information to criminally investigate or prosecute any alcohol or drug abuse patient.[facility] the event this information is protected by the Federal Confidentiality of Alcohol and Drug Abuse Patient Records regulations: The Federal rules restrict any use of the information to criminally investigate or prosecute any alcohol or drug abuse patient.[facility] the event this information is protected by the Federal Confidentiality of Alcohol and Drug Abuse Patient Records regulations: The Federal rules restrict any use of the information to criminally investigate or prosecute any alcohol or drug abuse patient.[facility] the event this information is protected by the Federal Confidentiality of Alcohol and Drug Abuse Patient Records regulations: The Federal rules restrict any use of the information to criminally investigate or prosecute any alcohol or drug abuse patient.[facility] the event this information is protected by the Federal Confidentiality of Alcohol and Drug Abuse Patient Records regulations: The Federal rules restrict any use of the information to criminally investigate or prosecute any alcohol or drug abuse patient.[facility] the event this information is protected by the Federal Confidentiality of Alcohol and Drug Abuse Patient Records regulations: The Federal rules restrict any use of the information to criminally investigate or prosecute any alcohol or drug abuse patient.[facility] the event this information is protected by the Federal Confidentiality of Alcohol and Drug Abuse Patient Records regulations: The Federal rules restrict any use of the information to criminally investigate or prosecute any alcohol or drug abuse patient.[facility] the event this information is protected by the Federal Confidentiality of Alcohol and Drug Abuse Patient Records regulations: The Federal rules restrict any use of the information to criminally investigate or prosecute any alcohol or drug abuse patient.[facility] Hospital[facility] the event this information is protected by the Federal Confidentiality of Alcohol and Drug Abuse Patient Records regulations: The Federal rules restrict any use of the information to criminally investigate or prosecute any alcohol or drug abuse patient.[facility] HospitalIn the event this information is protected by the Federal Confidentiality of Alcohol and Drug Abuse Patient Records regulations: The Federal rules restrict any use of the information to criminally investigate or prosecute any alcohol or drug abuse patient.[facility] HospitalIn the event this information is protected by the Federal Confidentiality of Alcohol and Drug Abuse Patient Records regulations: The Federal rules restrict any use of the information to criminally investigate or prosecute any alcohol or drug abuse patient.[facility] HospitalIn the event this information is protected by the Federal Confidentiality of Alcohol and Drug Abuse Patient Records regulations: The Federal rules restrict any use of the information to criminally investigate or prosecute any alcohol or drug abuse patient.[facility] HospitalIn the event this information is protected by the Federal Confidentiality of Alcohol and Drug Abuse Patient Records regulations: The Federal rules restrict any use of the information to criminally investigate or prosecute any alcohol or drug abuse patient.[facility] Hospital[facility] the event this information is protected by the Federal Confidentiality of Alcohol and Drug Abuse Patient Records regulations: The Federal rules restrict any use of the information to criminally investigate or prosecute any alcohol or drug abuse patient.[facility] HospitalIn the event this information is protected by the Federal Confidentiality of Alcohol and Drug Abuse Patient Records regulations: The Federal rules restrict any use of the information to criminally investigate or prosecute any alcohol or drug abuse patient.[facility] HospitalIn the event this information is protected by the Federal Confidentiality of Alcohol and Drug Abuse Patient Records regulations: The Federal rules restrict any use of the information to criminally investigate or prosecute any alcohol or drug abuse patient.[facility] HospitalIn the event this information is protected by the Federal Confidentiality of Alcohol and Drug Abuse Patient Records regulations: The Federal rules restrict any use of the information to criminally investigate or prosecute any alcohol or drug abuse patient.[facility] HospitalIn the event this information is protected by the Federal Confidentiality of Alcohol and Drug Abuse Patient Records regulations: The Federal rules restrict any use of the information to criminally investigate or prosecute any alcohol or drug abuse patient.[facility] HospitalIn the event this information is protected by the Federal Confidentiality of Alcohol and Drug Abuse Patient Records regulations: The Federal rules restrict any use of the information to criminally investigate or prosecute any alcohol or drug abuse patient.[facility] HospitalIn the event this information is protected by the Federal Confidentiality of Alcohol and Drug Abuse Patient Records regulations: The Federal rules restrict any use of the information to criminally investigate or prosecute any alcohol or drug abuse patient.[facility] HospitalIn the event this information is protected by the Federal Confidentiality of Alcohol and Drug Abuse Patient Records regulations: The Federal rules restrict any use of the information to criminally investigate or prosecute any alcohol or drug abuse patient.[facility] HospitalIn the event this information is protected by the Federal Confidentiality of Alcohol and Drug Abuse Patient Records regulations: The Federal rules restrict any use of the information to criminally investigate or prosecute any alcohol or drug abuse patient.[facility] HospitalIn the event this information is protected by the Federal Confidentiality of Alcohol and Drug Abuse Patient Records regulations: The Federal rules restrict any use of the information to criminally investigate or prosecute any alcohol or drug abuse patient.[facility] HospitalIn the event this information is protected by the Federal Confidentiality of Alcohol and Drug Abuse Patient Records regulations: The Federal rules restrict any use of the information to criminally investigate or prosecute any alcohol or drug abuse patient.[facility] HospitalIn the event this information is protected by the Federal Confidentiality of Alcohol and Drug Abuse Patient Records regulations: The Federal rules restrict any use of the information to criminally investigate or prosecute any alcohol or drug abuse patient.[facility] HospitalIn the event this information is protected by the Federal Confidentiality of Alcohol and Drug Abuse Patient Records regulations: The Federal rules restrict any use of the information to criminally investigate or prosecute any alcohol or drug abuse patient.[facility] HospitalIn the event this information is protected by the Federal Confidentiality of Alcohol and Drug Abuse Patient Records regulations: The Federal rules restrict any use of the information to criminally investigate or prosecute any alcohol or drug abuse patient.[facility] HospitalIn the event this information is protected by the Federal Confidentiality of Alcohol and Drug Abuse Patient Records regulations: The Federal rules restrict any use of the information to criminally investigate or prosecute any alcohol or drug abuse patient.[facility] HospitalIn the event this information is protected by the Federal Confidentiality of Alcohol and Drug Abuse Patient Records regulations: The Federal rules restrict any use of the information to criminally investigate or prosecute any alcohol or drug abuse patient.[facility] HospitalIn the event this information is protected by the Federal Confidentiality of Alcohol and Drug Abuse Patient Records regulations: The Federal rules restrict any use of the information to criminally investigate or prosecute any alcohol or drug abuse patient.[facility] HospitalIn the event this information is protected by the Federal Confidentiality of Alcohol and Drug Abuse Patient Records regulations: The Federal rules restrict any use of the information to criminally investigate or prosecute any alcohol or drug abuse patient.[facility] HospitalIn the event this information is protected by the Federal Confidentiality of Alcohol and Drug Abuse Patient Records regulations: The Federal rules restrict any use of the information to criminally investigate or prosecute any alcohol or drug abuse patient.[facility] HospitalIn the event this information is protected by the Federal Confidentiality of Alcohol and Drug Abuse Patient Records regulations: The Federal rules restrict any use of the information to criminally investigate or prosecute any alcohol or drug abuse patient.[facility] HospitalIn the event this information is protected by the Federal Confidentiality of Alcohol and Drug Abuse Patient Records regulations: The Federal rules restrict any use of the information to criminally investigate or prosecute any alcohol or drug abuse patient.[facility] HospitalIn the event this information is protected by the Federal Confidentiality of Alcohol and Drug Abuse Patient Records regulations: The Federal rules restrict any use of the information to criminally investigate or prosecute any alcohol or drug abuse patient.[facility] HospitalIn the event this information is protected by the Federal Confidentiality of Alcohol and Drug Abuse Patient Records regulations: The Federal rules restrict any use of the information to criminally investigate or prosecute any alcohol or drug abuse patient.[facility] HospitalIn the event this information is protected by the Federal Confidentiality of Alcohol and Drug Abuse Patient Records regulations: The Federal rules restrict any use of the information to criminally investigate or prosecute any alcohol or drug abuse patient.[facility] HospitalIn the event this information is protected by the Federal Confidentiality of Alcohol and Drug Abuse Patient Records regulations: The Federal rules restrict any use of the information to criminally investigate or prosecute any alcohol or drug abuse patient.[facility] HospitalIn the event this information is protected by the Federal Confidentiality of Alcohol and Drug Abuse Patient Records regulations: The Federal rules restrict any use of the information to criminally investigate or prosecute any alcohol or drug abuse patient.[facility] HospitalIn the event this information is protected by the Federal Confidentiality of Alcohol and Drug Abuse Patient Records regulations: The Federal rules restrict any use of the information to criminally investigate or prosecute any alcohol or drug abuse patient.[facility] HospitalIn the event this information is protected by the Federal Confidentiality of Alcohol and Drug Abuse Patient Records regulations: The Federal rules restrict any use of the information to criminally investigate or prosecute any alcohol or drug abuse patient.[facility] HospitalIn the event this information is protected by the Federal Confidentiality of Alcohol and Drug Abuse Patient Records regulations: The Federal rules restrict any use of the information to criminally investigate or prosecute any alcohol or drug abuse patient.[facility] HospitalIn the event this information is protected by the Federal Confidentiality of Alcohol and Drug Abuse Patient Records regulations: The Federal rules restrict any use of the information to criminally investigate or prosecute any alcohol or drug abuse patient.[facility] HospitalIn the event this information is protected by the Federal Confidentiality of Alcohol and Drug Abuse Patient Records regulations: The Federal rules restrict any use of the information to criminally investigate or prosecute any alcohol or drug abuse patient.[facility] HospitalIn the event this information is protected by the Federal Confidentiality of Alcohol and Drug Abuse Patient Records regulations: The Federal rules restrict any use of the information to criminally investigate or prosecute any alcohol or drug abuse patient.[facility] HospitalIn the event this information is protected by the Federal Confidentiality of Alcohol and Drug Abuse Patient Records regulations: The Federal rules restrict any use of the information to criminally investigate or prosecute any alcohol or drug abuse patient.[facility] HospitalIn the event this information is protected by the Federal Confidentiality of Alcohol and Drug Abuse Patient Records regulations: The Federal rules restrict any use of the information to criminally investigate or prosecute any alcohol or drug abuse patient.[facility] HospitalIn the event this information is protected by the Federal Confidentiality of Alcohol and Drug Abuse Patient Records regulations: The Federal rules restrict any use of the information to criminally investigate or prosecute any alcohol or drug abuse patient.[facility] HospitalIn the event this information is protected by the Federal Confidentiality of Alcohol and Drug Abuse Patient Records regulations: The Federal rules restrict any use of the information to criminally investigate or prosecute any alcohol or drug abuse patient.[facility] HospitalIn the event this information is protected by the Federal Confidentiality of Alcohol and Drug Abuse Patient Records regulations: The Federal rules restrict any use of the information to criminally investigate or prosecute any alcohol or drug abuse patient.[facility] HospitalIn the event this information is protected by the Federal Confidentiality of Alcohol and Drug Abuse Patient Records regulations: The Federal rules restrict any use of the information to criminally investigate or prosecute any alcohol or drug abuse patient.[facility] HospitalIn the event this information is protected by the Federal Confidentiality of Alcohol and Drug Abuse Patient Records regulations: The Federal rules restrict any use of the information to criminally investigate or prosecute any alcohol or drug abuse patient.[facility] HospitalIn the event this information is protected by the Federal Confidentiality of Alcohol and Drug Abuse Patient Records regulations: The Federal rules restrict any use of the information to criminally investigate or prosecute any alcohol or drug abuse patient.[facility] HospitalIn the event this information is protected by the Federal Confidentiality of Alcohol and Drug Abuse Patient Records regulations: The Federal rules restrict any use of the information to criminally investigate or prosecute any alcohol or drug abuse patient.[facility] HospitalIn the event this information is protected by the Federal Confidentiality of Alcohol and Drug Abuse Patient Records regulations: The Federal rules restrict any use of the information to criminally investigate or prosecute any alcohol or drug abuse patient.[facility] HospitalIn the event this information is protected by the Federal Confidentiality of Alcohol and Drug Abuse Patient Records regulations: The Federal rules restrict any use of the information to criminally investigate or prosecute any alcohol or drug abuse patient.[facility] HospitalIn the event this information is protected by the Federal Confidentiality of Alcohol and Drug Abuse Patient Records regulations: The Federal rules restrict any use of the information to criminally investigate or prosecute any alcohol or drug abuse patient.[facility] HospitalIn the event this information is protected by the Federal Confidentiality of Alcohol and Drug Abuse Patient Records regulations: The Federal rules restrict any use of the information to criminally investigate or prosecute any alcohol or drug abuse patient.[facility] HospitalIn the event this information is protected by the Federal Confidentiality of Alcohol and Drug Abuse Patient Records regulations: The Federal rules restrict any use of the information to criminally investigate or prosecute any alcohol or drug abuse patient.[facility] HospitalIn the event this information is protected by the Federal Confidentiality of Alcohol and Drug Abuse Patient Records regulations: The Federal rules restrict any use of the information to criminally investigate or prosecute any alcohol or drug abuse patient.[facility] HospitalIn the event this information is protected by the Federal Confidentiality of Alcohol and Drug Abuse Patient Records regulations: The Federal rules restrict any use of the information to criminally investigate or prosecute any alcohol or drug abuse patient.[facility] HospitalIn the event this information is protected by the Federal Confidentiality of Alcohol and Drug Abuse Patient Records regulations: The Federal rules restrict any use of the information to criminally investigate or prosecute any alcohol or drug abuse patient.[facility] HospitalIn the event this information is protected by the Federal Confidentiality of Alcohol and Drug Abuse Patient Records regulations: The Federal rules restrict any use of the information to criminally investigate or prosecute any alcohol or drug abuse patient.[facility] HospitalIn the event this information is protected by the Federal Confidentiality of Alcohol and Drug Abuse Patient Records regulations: The Federal rules restrict any use of the information to criminally investigate or prosecute any alcohol or drug abuse patient.[facility] HospitalIn the event this information is protected by the Federal Confidentiality of Alcohol and Drug Abuse Patient Records regulations: The Federal rules restrict any use of the information to criminally investigate or prosecute any alcohol or drug abuse patient.[facility] HospitalIn the event this information is protected by the Federal Confidentiality of Alcohol and Drug Abuse Patient Records regulations: The Federal rules restrict any use of the information to criminally investigate or prosecute any alcohol or drug abuse patient.[facility] HospitalIn the event this information is protected by the Federal Confidentiality of Alcohol and Drug Abuse Patient Records regulations: The Federal rules restrict any use of the information to criminally investigate or prosecute any alcohol or drug abuse patient.[facility] HospitalIn the event this information is protected by the Federal Confidentiality of Alcohol and Drug Abuse Patient Records regulations: The Federal rules restrict any use of the information to criminally investigate or prosecute any alcohol or drug abuse patient.[facility] HospitalIn the event this information is protected by the Federal Confidentiality of Alcohol and Drug Abuse Patient Records regulations: The Federal rules restrict any use of the information to criminally investigate or prosecute any alcohol or drug abuse patient.[facility] HospitalIn the event this information is protected by the Federal Confidentiality of Alcohol and Drug Abuse Patient Records regulations: The Federal rules restrict any use of the information to criminally investigate or prosecute any alcohol or drug abuse patient.[facility] HospitalIn the event this information is protected by the Federal Confidentiality of Alcohol and Drug Abuse Patient Records regulations: The Federal rules restrict any use of the information to criminally investigate or prosecute any alcohol or drug abuse patient.[facility] HospitalIn the event this information is protected by the Federal Confidentiality of Alcohol and Drug Abuse Patient Records regulations: The Federal rules restrict any use of the information to criminally investigate or prosecute any alcohol or drug abuse patient.[facility] HospitalIn the event this information is protected by the Federal Confidentiality of Alcohol and Drug Abuse Patient Records regulations: The Federal rules restrict any use of the information to criminally investigate or prosecute any alcohol or drug abuse patient.[facility] HospitalIn the event this information is protected by the Federal Confidentiality of Alcohol and Drug Abuse Patient Records regulations: The Federal rules restrict any use of the information to criminally investigate or prosecute any alcohol or drug abuse patient.[facility] HospitalIn the event this information is protected by the Federal Confidentiality of Alcohol and Drug Abuse Patient Records regulations: The Federal rules restrict any use of the information to criminally investigate or prosecute any alcohol or drug abuse patient.[facility] HospitalIn the event this information is protected by the Federal Confidentiality of Alcohol and Drug Abuse Patient Records regulations: The Federal rules restrict any use of the information to criminally investigate or prosecute any alcohol or drug abuse patient.[facility] HospitalIn the event this information is protected by the Federal Confidentiality of Alcohol and Drug Abuse Patient Records regulations: The Federal rules restrict any use of the information to criminally investigate or prosecute any alcohol or drug abuse patient.[facility] HospitalIn the event this information is protected by the Federal Confidentiality of Alcohol and Drug Abuse Patient Records regulations: The Federal rules restrict any use of the information to criminally investigate or prosecute any alcohol or drug abuse patient.[facility] HospitalIn the event this information is protected by the Federal Confidentiality of Alcohol and Drug Abuse Patient Records regulations: The Federal rules restrict any use of the information to criminally investigate or prosecute any alcohol or drug abuse patient.[facility] HospitalIn the event this information is protected by the Federal Confidentiality of Alcohol and Drug Abuse Patient Records regulations: The Federal rules restrict any use of the information to criminally investigate or prosecute any alcohol or drug abuse patient.[facility] HospitalIn the event this information is protected by the Federal Confidentiality of Alcohol and Drug Abuse Patient Records regulations: The Federal rules restrict any use of the information to criminally investigate or prosecute any alcohol or drug abuse patient.[facility] HospitalIn the event this information is protected by the Federal Confidentiality of Alcohol and Drug Abuse Patient Records regulations: The Federal rules restrict any use of the information to criminally investigate or prosecute any alcohol or drug abuse patient.[facility] HospitalIn the event this information is protected by the Federal Confidentiality of Alcohol and Drug Abuse Patient Records regulations: The Federal rules restrict any use of the information to criminally investigate or prosecute any alcohol or drug abuse patient.[facility] HospitalIn the event this information is protected by the Federal Confidentiality of Alcohol and Drug Abuse Patient Records regulations: The Federal rules restrict any use of the information to criminally investigate or prosecute any alcohol or drug abuse patient.[facility] HospitalIn the event this information is protected by the Federal Confidentiality of Alcohol and Drug Abuse Patient Records regulations: The Federal rules restrict any use of the information to criminally investigate or prosecute any alcohol or drug abuse patient.[facility] Reason for Visit (unrecogniz ed section and content) Reason Onset Date Comments Community Monitoring Outreach 10/05/2021 Te lephonic Follow Up Reason Onset Date Comments Community Monitoring Outreach 11/02/2021 Te lephonic Follow Up Reason Comments 6 Month Exam Reason Comments Results Reason Onset Date Comments Community Monitoring Outreach 01/19/2022 Te lephonic Follow Up Reason Onset Date Comments Refill Request 02/04/2022 Reason Onset Date Comments Community Monitoring Outreach 02/15/2022 Te lephonic Follow Up Reason Onset Date Comments Community Monitoring Outreach 02/16/2022 Te lephonic Follow Up Reason Onset Date Comments Community Monitoring Outreach 03/15/2022 CD M Telephonic Follow Up Reason Onset Date Comments Community Monitoring Outreach 04/12/2022 CD M Telephonic. Reason Onset Date Comments Refill Request 04/30/2022 Reason Onset Date Comments 6 Month Exam Immunizations 06/04/2022 Flu vaccination Reason Onset Date Comments community monitoring outreach 06/11/2022 CD M telephonic outreach Reason Comments Cough Reason Comments clarify doxycycline rx Reason Comments New Patient COPD Reason Comments Results Chest CT Reason Onset Date Comments community monitoring outreach 07/16/2022 CD M-Telephonic outreach Reason Onset Date Comments Refill Request 08/12/2022 Reason Onset Date Comments community monitoring outreach 08/19/2022 M-Telephonic outreach Reason Comments Refill Request Reason Comments Pain (Shoulder Pain) Bilateral Reason Comments Referral Request Reason Onset Date Comments community monitoring outreach 10/21/2022 M-Telephonic outreach Reason Comments question on CT incidental finding Reason Comments Follow Up Specialty Diagnoses / Procedures Referred By Contac t Referred To Contact Vascular Surgery / [facility] Diagnoses Abdominal aortic aneurysm (AAA) without rupture, unspecified part (HCC) Procedures CONSULT TO VASCULAR SURGERY OFFICE/OUTPATIENT [facility] MDM 60-74 MINUTES Karla Campuzano, ROSS.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 [address] [place] [address] [place] [address] [address] Referral ID Status Reason Start Date Expiration Date Visits Requested Visits Authorized [id number] Pending Review PCP Requested Referral 09/29/2022 09/29/2023 1 1 Reason Comments Patient Question Reason Comments Established Patient Renal mass Specialty Diagnoses / Procedures Referred By Contac t Referred To Contact Urology Diagnoses Right renal mass Procedures CONSULT TO UROLOGY OFFICE/OUTPATIENT NEW HIGH MDM 60-74 MINUTES Karla Campuzano APRN.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 [address] [place] [address] Referral ID Status Reason Start Date Expiration Date Visits Requested Visits Authorized [id number] Pending Review PCP Requested Referral 09/29/2022 09/29/2023 1 1 Reason Comments Pain New Specialty Diagnoses / Procedures Referred By Contac t Referred To Contact Orthopedics Diagnoses Acute pain of both shoulders Procedures CONSULT TO ORTHOPAEDICS OFFICE/OUTPATIENT NEW HIGH MDM 60-74 MINUTES Karla Campuzano, ROSS.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 [address] [place] [address] Referral ID Status Reason Start Date Expiration Date Visits Requested Visits Authorized [id number] Pending Review PCP Requested Referral 09/29/2022 09/29/2023 1 1 Reason Onset Date Comments community monitoring outreach 11/19/2022 CD M-Telephonic outreach Reason Onset Date Comments Refill Request 11/25/2022 Reason Comments Reminder Call Reason Onset Date Comments community monitoring outreach 12/22/2022 CD M-Telephonic outreach Reason Comments Established Patient CT review Reason Onset Date Comments community monitoring outreach 01/25/2023 CD M-Telephonic outreach Reason Comments Consult Reason Onset Date Comments community monitoring outreach 02/23/2023 CD M-Telephonic outreach Reason Comments Patient Update Reason Comments Post Op EVAR Reason Comments Follow Up 3 month follow up Reason Onset Date Comments community monitoring outreach 03/29/2023 CD M-Telephonic outreach Reason Onset Date Comments community monitoring outreach 05/02/2023 CD M-Telephonic outreach Reason Onset Date Comments Refill Request 05/13/[address] Specialty Diagnoses / Procedures Referred By Contac t Referred To Contact CT IMAGING Diagnoses 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) Procedures CT ABD/PEL WO IVCON CT ABD & PELVIS W/O CONTRAST Briana Nolen D, DO [address] [place] [address] [facility] [place] [address] Referral ID Status Reason Start Date Expiration Date V isits Requested Visits Authorized [id number] Closed Auto-Generate d Referral 09/30/2022 07/17/2023 1 1 Specialty Diagnoses / Procedures Referred By Contac t Referred To Contact CT IMAGING Diagnoses 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) Procedures CTA ABD/PEL WO/W IVCON CT ANGIO ABD&PLVIS CNTRST MTRL W/WO CNTRST Eladio Mckoy MD [address] [place] [address] [facility] [place] [address] Referral ID Status Reason Start Date Expiration Date V isits Requested Visits Authorized [id number] Closed Auto-Generate d Referral 02/25/2023 07/17/2023 1 1 Specialty Diagnoses / Procedures Referred By Contac t Referred To Contact CT IMAGING Diagnoses Lung nodules Procedures CT CHEST WO IVCON DIAGNOSTIC COMPUTED TOMOGRAPHY THORAX W/O Francia Arredondo MD [address] [place] [address] [place] [address] Referral ID Status Reason Start Date Expiration Date V isits Requested Visits Authorized [id number] Closed Auto-Generat ed Referral Patient Cleared - Admin/Chairm an/Director advise to proceed or did not respond 07/07/2022 01/03/2023 1 1 Reason Onset Date Comments community monitoring outreach 06/01/2023 CD M-Telephonic outreach Reason Comments Established Patient 6 month follow up Reason Onset Date Comments community monitoring outreach 09/14/2023 CD M-Telephonic outreach Reason Onset Date Comments Refill Request 10/03/2023 Reason Onset Date Comments community monitoring outreach 10/24/2023 CD M-Telephonic outreach Reason Onset Date Comments Refill Request 11/21/2023 Reason Onset Date Comments community monitoring outreach 11/23/2023 CD M-Telephonic outreach Reason Onset Date Comments Refill Request 12/27/2023 Reason Comments Established Patient six month follow up asthma/COPD overlap syndrome Reason Onset Date Comments community monitoring outreach 01/26/2024 CD M-Telephonic outreach Reason Onset Date Comments community monitoring outreach 02/24/2024 CD M-Telephonic outreach Reason Onset Date Comments community monitoring outreach 03/26/2024 CD M-Telephonic outreach Reason Onset Date Comments community monitoring outreach 04/25/2024 CD M-Telephonic outreach Reason Onset Date Comments community monitoring outreach 04/26/2024 CD M-Telephonic outreach Reason Onset Date Comments Refill Request 05/04/2024 Reason Onset Date Comments community monitoring outreach 12/26/2023 CD M-Telephonic outreach Reason Onset Date Comments community monitoring outreach 05/24/2024 CD M-Telephonic outreach Reason Onset Date Comments community monitoring outreach 06/21/2024 CD M-Telephonic outreach Reason Comments Follow Up 4 month follow up Reason Onset Date Comments Refill Request 09/07/2024 Reason Comments Established Patient COPD Reason Onset Date Comments Refill Request 11/01/2024 Reason Comments Cough Cough, congestion an d ST x 4 days Reason Onset Date Comments Refill Request 11/19/2024 Reason Comments 6 Month Exam Reason Onset Date Comments Results 02/08/2025 Care Teams (unrecognized sec tion and content) Varnish Blender Relationship Specialty Start Date End Date Clarice Murillo MD [address] [place], [place] [id number] PCP - General 02/07/09 Marianne Balderas circular distributorOperations Support Coordinator 03/19/21 Manuel Bravo MD [address] [id number] Vice President Quality Improvement Pulmonary and Critical Care Medicine 06/01/21 Varnish Blender Relationship Specialty Start Date End Date Clarice Murillo MD [address] [place], [place] [id number] PCP - General 02/07/09 Marianne Balderas, RN [address] [place], [place] [id number] Operations Support Coordinator 03/19/21 Manuel Bravo MD [address] [id number] Vice President Quality Improvement Pulmonary and Critical Care Medicine 06/01/21 Varnish Blender Relationship Specialty Start Date End Date Clarice Murillo MD [address] [place] [address] PCP - General 02/07/09 Marianne Balderas RN [address] [place], [place] [id number] Operations Support Coordinator 03/19/21 Manuel Bravo MD [address] [phone] Vice President Quality Improvement Pulmonary and Critical Care Medicine 06/01/21 Varnish Blender Relationship Specialty Start Date End Date Clarice Murillo MD [address] [place], [place] [id number] PCP - General 02/07/09 Marianne Balderas RN [address] [place], [place] [id number] Operations Support Coordinator 03/19/21 Manuel Bravo MD [address] [id number] Vice President Quality Improvement Pulmonary and Critical Care Medicine 06/01/21 Varnish Blender Relationship Specialty Start Date End Date Clarice Murillo MD [address] [place] [address] PCP - General 02/07/09 Marianne Balderas, RN [address] [place] [address] Operations Support Coordinator 03/19/21 Manuel Bravo MD [address] [id number] Vice President Quality Improvement Pulmonary and Critical Care Medicine 06/01/21 Varnish Blender Relationship Specialty Start Date End Date Clarice Murillo MD [address] [place] [address] PCP - General 02/07/09 Marianne Balderas, RN [address] [place], [place] [phone] Operations Support Coordinator 03/19/21 Manuel Bravo MD [address] [phone] Vice President Quality Improvement Pulmonary and Critical Care Medicine 06/01/21 Varnish Blender Relationship Specialty Start Date End Date Clarice Murillo MD [address] [place] [address] PCP - General 02/07/09 Marianne Balderas, RN [address] [place] [address] Operations Support Coordinator 03/19/21 Manuel Bravo MD [address] [id number] Vice President Quality Improvement Pulmonary and Critical Care Medicine 06/01/21 Varnish Blender Relationship Specialty Start Date End Date Clarice Murillo MD [address] [place] [address] PCP - General 02/07/09 Manuel Bravo MD [address] [address] Vice President Quality Improvement Pulmonary and Critical Care Medicine 06/01/21 Adriel Vides RN [address] [place], [place] [id number] Operations Support Coordinator Family [facility] 03/19/21 Varnish Blender Relationship Specialty Start Date End Date Clarice Murillo MD [address] [place] [address] PCP - General 02/07/09 Manuel Bravo MD [address] [address] Vice President Quality Improvement Pulmonary and Critical Care Medicine 06/01/21 Adriel Vides RN [address] [place], [place] [phone] Operations Support Coordinator Family [facility] 03/19/21 Varnish Blender Relationship Specialty Start Date End Date Clarice Murillo MD [address] [place] [address] PCP - General 02/07/09 Manuel Bravo MD [address] [phone] Vice President Quality Improvement Pulmonary and Critical Care Medicine 06/01/21 Adriel Vides RN [address] [place], [place] [id number] Operations Support Coordinator Family [facility] 03/19/21 Varnish Blender Relationship Specialty Start Date End Date Clarice Murillo MD [address] [place] [address] PCP - General 02/07/09 Manuel Bravo MD [address] [phone] Vice President Quality Improvement Pulmonary and Critical Care Medicine 06/01/21 Adriel Vides RN [address] [place], [place] [phone] Operations Support Coordinator Family [facility] 05/19/22 Varnish Blender Relationship Specialty Start Date End Date Clarice Murillo MD [address] [place] [address] PCP - General 02/07/09 Manuel Bravo MD [address] [phone] Vice President Quality Improvement Pulmonary and Critical Care Medicine 06/01/21 Adriel Vides RN [address] [place], [place] [phone] Operations Support Coordinator Family Medicine 05/19/22 Varnish Blender Relationship Specialty Start Date End Date Clarice Murillo MD [address] [place], [place] 166851 PCP - General 02/07/09 Manuel Bravo MD [address] [phone] Vice President Quality Improvement Pulmonary and Critical Care Medicine 06/01/21 Adriel Vides RN [address] [place], [place] 3145931 Operations Support Coordinator Family Medicine 05/19/22 Varnish Blender Relationship Specialty Start Date End Date Clarice Murillo MD [address] [place] [address] PCP - General 02/07/09 Manuel Bravo MD [address] [phone] Vice President Quality Improvement Pulmonary and Critical Care Medicine 06/01/21 Adriel Vides RN [address] [place], [place] 2636031 Operations Support Coordinator Family [facility] 05/19/22 Varnish Blender Relationship Specialty Start Date End Date Clarice Murillo MD [address] [place], [place] [id number] PCP - General 02/07/09 Manuel Bravo MD [address] [id number] Vice President Quality Improvement Pulmonary and Critical Care Medicine 06/01/21 Adriel Vides RN [address] [place] [address] Operations Support Coordinator Family Medicine 05/19/22 Varnish Blender Relationship Specialty Start Date End Date Clarice Murillo MD [address] [place] [address] PCP - General 02/07/09 Manuel Bravo MD [address] [phone] Vice President Quality Improvement Pulmonary and Critical Care Medicine 06/01/21 Adriel Vides RN [address] [place], [place] 1887031 Operations Support Coordinator Family Medicine 05/19/22 Varnish Blender Relationship Specialty Start Date End Date Clarice Murillo MD [address] [place] [address] PCP - General 02/07/09 Manuel Bravo MD [address] [phone] Vice President Quality Improvement Pulmonary and Critical Care Medicine 06/01/21 Adriel Vides RN [address] [place], [place] [phone] Operations Support Coordinator Family Medicine 05/19/22 Varnish Blender Relationship Specialty Start Date End Date Clarice Murillo MD [address] [place] [address] PCP - General 02/07/09 Manuel Bravo MD [address] [phone] Vice President Quality Improvement Pulmonary and Critical Care Medicine 06/01/21 Adriel Vides RN [address] [place], [place] [phone] Operations Support Coordinator Family Medicine 05/19/22 Varnish Blender Relationship Specialty Start Date End Date Clarice Murillo MD [address] [place] [address] PCP - General 02/07/09 Manuel Bravo MD [address] [phone] Vice President Quality Improvement Pulmonary and Critical Care Medicine 06/01/21 Adriel Vides RN [address] [place], [place] [phone] Operations Support Coordinator Family Medicine 05/19/22 Varnish Blender Relationship Specialty Start Date End Date Clarice Murillo MD [address] [place] [address] PCP - General 02/07/09 Manuel Bravo MD [address] [address] Vice President Quality Improvement Pulmonary and Critical Care Medicine 06/01/21 Adriel Vides RN [address] [place], [place] [id number] Operations Support Coordinator Family [facility] 05/19/22 Varnish Blender Relationship Specialty Start Date End Date Clarice Murillo MD [address] [place] [address] PCP - General 02/07/09 Manuel Bravo MD [address] [address] Vice President Quality Improvement Pulmonary and Critical Care Medicine 06/01/21 Adriel Vides RN [address] [place], [place] [id number] Operations Support Coordinator [facility] 05/19/22 Varnish Blender Relationship Specialty Start Date End Date Clarice Murillo MD [address] [place] [address] PCP - General 02/07/09 Manuel Bravo MD [address] [address] Vice President Quality Improvement Pulmonary and Critical Care Medicine 06/01/21 Adriel Vides RN [address] [place] [address] Operations Support Coordinator Family [facility] 05/19/22 Varnish Blender Relationship Specialty Start Date End Date Clarice uMrillo MD [address] [place] [address] PCP - General 02/07/09 Manuel Bravo MD [address] [address] Vice President Quality Improvement Pulmonary and Critical Care Medicine 06/01/21 Adriel Vides RN [address] [place], [place] 1167631 Operations Support Coordinator [facility] 05/19/22 Varnish Blender Relationship Specialty Start Date End Date Clarice Murillo MD [address] [place] [address] PCP - General 02/07/09 Manuel Bravo MD [address] [phone] Vice President Quality Improvement Pulmonary and Critical Care Medicine 06/01/21 Adriel Vides RN [address] [place], [place] [id number] Operations Support Coordinator [facility] 05/19/22 Varnish Blender Relationship Specialty Start Date End Date Clarice Murillo MD [address] [place] [address] PCP - General 02/07/09 Manuel Bravo MD [address] [phone] Vice President Quality Improvement Pulmonary and Critical Care Medicine 06/01/21 Adriel Vides RN [address] [place], [place] [phone] Operations Support Coordinator [facility] 05/19/22 Varnish Blender Relationship Specialty Start Date End Date Clarice Murillo MD [address] [place] [address] PCP - General 02/07/09 Manuel Bravo MD [address] [phone] Vice President Quality Improvement Pulmonary and Critical Care Medicine 06/01/21 Adriel Vides RN [address] [place], [place] 5066531 Operations Support Coordinator [facility] 05/19/22 Varnish Blender Relationship Specialty Start Date End Date Clarice Murillo MD [address] [place] [address] PCP - General 02/07/09 Manuel Bravo MD [address] [address] Vice President Quality Improvement Pulmonary and Critical Care Medicine 06/01/21 Adriel Vides RN [address] [place], [place] 5128831 Operations Support Coordinator Family Medicine 05/19/22 Varnish Blender Relationship Specialty Start Date End Date Clarice Murillo MD [address] [place] [address] PCP - General 02/07/09 Manuel Bravo MD [address] [phone] Vice President Quality Improvement Pulmonary and Critical Care Medicine 06/01/21 Adriel Vides RN [address] [place], [place] [phone] Operations Support Coordinator Family Medicine 05/19/22 Varnish Blender Relationship Specialty Start Date End Date Clarice Murillo MD [address] [place] [address] PCP - General 02/07/09 Manuel Bravo MD [address] [phone] Vice President Quality Improvement Pulmonary and Critical Care Medicine 06/01/21 Adriel Vides RN [address] [place] [address] Operations Support Coordinator Family Medicine 05/19/22 Varnish Blender Relationship Specialty Start Date End Date Clarice Murillo MD [address] [place] [address] PCP - General 02/07/09 Manuel Bravo MD [address] [address] Vice President Quality Improvement Pulmonary and Critical Care Medicine 06/01/21 Adriel Vides RN [address] [place], [place] [phone] Operations Support Coordinator Family Medicine 05/19/22 Varnish Blender Relationship Specialty Start Date End Date Clarice Murillo MD [address] [place] [address] PCP - General 02/07/09 Manuel Bravo MD [address] [address] Vice President Quality Improvement Pulmonary and Critical Care Medicine 06/01/21 Adriel Vides RN [address] [place] [address] Operations Support Coordinator Family [facility] 05/19/22 Varnish Blender Relationship Specialty Start Date End Date Clarice Murillo MD [address] [place] [address] PCP - General 02/07/09 Manuel Bravo MD [address] [phone] Vice President Quality Improvement Pulmonary and Critical Care Medicine 06/01/21 Adriel Vides RN [address] [place], [place] 9141431 Operations Support Coordinator Family Medicine 05/19/22 Varnish Blender Relationship Specialty Start Date End Date Clarice Murillo MD [address] [place] [address] PCP - General 02/07/09 Manuel Bravo MD [address] [phone] Vice President Quality Improvement Pulmonary and Critical Care Medicine 06/01/21 Adriel Vides RN [address] [place] [address] Operations Support Coordinator Family Medicine 05/19/22 Varnish Blender Relationship Specialty Start Date End Date Clarice Murillo MD [address] [place] [address] PCP - General 02/07/09 Maneul Bravo MD [address] [phone] Vice President Quality Improvement Pulmonary and Critical Care Medicine 06/01/21 Adriel Vides, RUBEN [address] [place] [address] Operations Support Coordinator Family Medicine 05/19/22 Varnish Blender Relationship Specialty Start Date End Date Clarice Murillo MD [address] [place] [address] PCP - General 02/07/09 Manuel Bravo MD [address] [phone] Vice President Quality Improvement Pulmonary and Critical Care Medicine 06/01/21 Adriel Vides RN [address] [place], [place] 5033231 Operations Support Coordinator Family Medicine 05/19/22 Varnish Blender Relationship Specialty Start Date End Date Clarice Murillo MD [address] [place] [address] PCP - General 02/07/09 Manuel Bravo MD [address] [phone] Vice President Quality Improvement Pulmonary and Critical Care Medicine 06/01/21 Adriel Vides RN [address] [place] [address] Operations Support Coordinator Family Medicine 05/19/22 Varnish Blender Relationship Specialty Start Date End Date Clarice Murillo MD [address] [place], [place] 530361 PCP - General 02/07/09 Manuel Bravo MD [address] [phone] Vice President Quality Improvement Pulmonary and Critical Care Medicine 06/01/21 Adriel Vides RN [address] [place], [place] [phone] Operations Support Coordinator Family Medicine 05/19/22 Varnish Blender Relationship Specialty Start Date End Date Clarice Murillo MD [address] [place] [address] PCP - General 02/07/09 Manuel Bravo MD [address] [phone] Vice President Quality Improvement Pulmonary and Critical Care Medicine 06/01/21 Adriel Vides RN [address] [place] [address] Operations Support Coordinator Family Medicine 05/19/22 Varnish Blender Relationship Specialty Start Date End Date Clarice Murillo MD [address] [place] [address] PCP - General 02/07/09 Manuel Bravo MD [address] [phone] Vice President Quality Improvement Pulmonary and Critical Care Medicine 06/01/21 Adriel Vides RN [address] [place] [address] Operations Support Coordinator Family Medicine 05/19/22 Varnish Blender Relationship Specialty Start Date End Date Clarice Murillo MD [address] [place] [address] PCP - General 02/07/09 Manuel Braov MD [address] [phone] Vice President Quality Improvement Pulmonary and Critical Care Medicine 06/01/21 Adriel Vides RN [address] [place] [address] Operations Support Coordinator Family Medicine 05/19/22 Varnish Blender Relationship Specialty Start Date End Date Clarice Murillo MD [address] [place] [address] PCP - General 02/07/09 Manuel Bravo MD [address] [phone] Vice President Quality Improvement Pulmonary and Critical Care Medicine 06/01/21 Adriel Vides RN [address] [place] [address] Operations Support Coordinator Family [facility] 05/19/22 Varnish Blender Relationship Specialty Start Date End Date Clarice Murillo MD [address] [place] [address] PCP - General 02/07/09 Manuel Bravo MD [address] [phone] Vice President Quality Improvement Pulmonary and Critical Care Medicine 06/01/21 Adriel Vides RN [address] [place], [place] 8089631 Operations Support Coordinator Family [facility] 05/19/22 Varnish Blender Relationship Specialty Start Date End Date Clarice Murillo MD [address] [place] [address] PCP - General 02/07/09 Manuel Bravo MD [address] [id number] Vice President Quality Improvement Pulmonary and Critical Care Medicine 06/01/21 Adriel Vides RN [address] [place], [place] 2017631 Operations Support Coordinator Family Medicine 05/19/22 Varnish Blender Relationship Specialty Start Date End Date Clarice Murillo MD [address] [place] [address] PCP - General 02/07/09 Manuel Bravo MD [address] [phone] Vice President Quality Improvement Pulmonary and Critical Care Medicine 06/01/21 Adriel Vides RN [address] [place], [place] 9134531 Operations Support Coordinator Family Medicine 05/19/22 Varnish Blender Relationship Specialty Start Date End Date Clarice Murillo MD [address] [place] [address] PCP - General 02/07/09 Manuel Bravo MD [address] [address] Vice President Quality Improvement Pulmonary and Critical Care Medicine 06/01/21 Adriel Vides RN [address] [place], [place] [phone] Operations Support Coordinator Family Medicine 05/19/22 Varnish Blender Relationship Specialty Start Date End Date Clarice Murillo MD [address] [place] [address] PCP - General 02/07/09 Manuel Bravo MD [address] [phone] Vice President Quality Improvement Pulmonary and Critical Care Medicine 06/01/21 Adriel Vides RN [address] [place], [place] [phone] Operations Support Coordinator Family Medicine 05/19/22 Varnish Blender Relationship Specialty Start Date End Date Clarice Murillo MD [address] [place] [address] PCP - General 02/07/09 Manuel Bravo MD [address] [phone] Vice President Quality Improvement Pulmonary and Critical Care Medicine 06/01/21 Adriel Vides RN [address] [place] [address] Operations Support Coordinator Family Medicine 05/19/22 Varnish Blender Relationship Specialty Start Date End Date Clarice Murillo MD [address] [place], [place] 080011 PCP - General 02/07/09 Manuel Bravo MD [address] [phone] Vice President Quality Improvement Pulmonary and Critical Care Medicine 06/01/21 Adriel Vides RN [address] [place] [address] Operations Support Coordinator Family Medicine 05/19/22 Varnish Blender Relationship Specialty Start Date End Date Clarice Murillo MD [address] [place], [place] 95984691 PCP - General 02/07/09 Manuel Bravo MD [address] [phone] Vice President Quality Improvement Pulmonary and Critical Care Medicine 06/01/21 Adriel Vides RN [address] [place] [address] Operations Support Coordinator Family Medicine 05/19/22 Varnish Blender Relationship Specialty Start Date End Date Clarice Murillo MD [address] [place], [place] [id number] PCP - General 02/07/09 Manuel Bravo MD [address] [phone] Vice President Quality Improvement Pulmonary and Critical Care Medicine 06/01/21 Adriel Vides, RN [address] [place] [address] Operations Support Coordinator Family Medicine 05/19/22 Varnish Blender Relationship Specialty Start Date End Date Clarice Murillo MD [address] [place] [address] PCP - General 02/07/09 Manuel Bravo MD [address] [place] [address] [id number] Vice President Quality Improvement Pulmonary and Critical Care Medicine 06/01/21 Karla Campuzano APRN.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 [address] [place] [address] [facility] 06/24/24 Sid Frank APRN.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 [address] [place] [address] [facility] 07/03/24 Varnish Blender Relationship Specialty Start Date End Date Clarice Murillo MD [address] [place] [address] PCP - General 02/07/09 Manuel Bravo MD [address] [place] [address] Vice President Quality Improvement Pulmonary and Critical Care Medicine 06/01/21 Karla Campuzano VENEER MANUFACTURER.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 [address] [place] [address] [facility] 06/24/24 Sid Frank APRN.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 [address] [place] [address] [facility] 07/03/24 Varnish Blender Relationship Specialty Start Date End Date Clarice Murillo MD [address] [place] [address] PCP - General 02/07/09 Manuel Bravo MD [address] [address] Vice President Quality Improvement Pulmonary and Critical Care Medicine 06/01/21 Karla Campuzano, VENEER MANUFACTURER.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 [address] [place] [address] Sock Boarder Family [facility] 06/24/24 Sid Frank VENEER MANUFACTURER.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 [address] [place] [address] [facility] Varnish Blender Relationship Specialty Start Date End Date Clarice Murillo MD [address] [place] [address] PCP - General 02/07/09 Manuel Bravo MD [address] [address] Vice President Quality Improvement Pulmonary and Critical Care Medicine 06/01/21 Karla Campuzano, VENEER MANUFACTURER.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 [address] [address] Sock Boarder [facility] Medicine 06/24/24 Sid Frank VENEER MANUFACTURER.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 [address] [place] [address] [facility] 07/[facility]/24 Varnish Blender Relationship Specialty Start Date End Date Clarice Murillo MD [address] [place] [address] PCP - General 02/07/09 Manuel Bravo MD [address] [address] Vice President Quality Improvement Pulmonary and Critical Care Medicine 06/01/21 Karla Campuzano, VENEER MANUFACTURER.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 [address] [address] Sock Boarder Family Medicine 06/24/24 Sid Frank, VENEER MANUFACTURER.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 [address] [place] [address] Sock Boarder [facility] 07/03/24 Team Status: Active Member Role Status Dates Dr. Clarice Murillo MD Primary Care Provider Active Team Status: Active Member Role Status Dates Dr. Clarice Murillo MD Primary Care Provider Active Start: November 08, 2024 Dr. Eduardo Hartley DO Emergency Provider Active S tart: November 08, 2024 Dr. Dennis Rocha MD Attending Provider Active Start: November 08, 2024 Team Status: Inactive Member Role Status Dates Dr. Clarice Murillo MD Primary Care Provider Active Start: November 08, 2024 End: November 10, 2024 Dr. Eduardo Hartley DO Emergency Provider Active S tart: November 08, 2024 End: November 10, 2024 Dr. Evelyn Doss DO Admit Provider Active Start: November 08, 2024 End: November 10, 2024 Dr. Evelyn Doss DO Other Provider Active Start: November 08, 2024 End: November 10, 2024 Dr. Riky Li MD Attending Provider Active Start: November 08, 2024 End: November 10, 2024 Team Status: Active Member Role Status Dates Dr. Clarice Murillo MD Primary Care Provider Active Start: November 09, 2024 Dr. Eduardo Hartley DO Emergency Provider Active S tart: November 09, 2024 Dr. Evelyn Doss DO Admit Provider Active Start: November 09, 2024 Dr. Evelyn Doss DO Other Provider Active Start: November 09, 2024 Dr. Riky Li MD Attending Provider Active Start: November 09, 2024 Dr. Riky Li MD Other Provider Active Sta rt: November 09, 2024 Team Status: Active Member Role Status Dates Dr. Clarice Murillo MD Primary Care Provider Active Start: November 09, 2024 Dr. Eduardo Hartley DO Emergency Provider Active S tart: November 09, 2024 Dr. Evelyn Doss DO Admit Provider Active Start: November 09, 2024 Dr. Evelyn Doss DO Other Provider Active Start: November 09, 2024 Dr. Riky Li MD Other Provider Active Sta rt: November 09, 2024 Dr. Dennis Rocha MD Attending Provider Active Start: November 09, 2024 Team Status: Active Member Role Status Dates Dr. Clarice Murillo MD Primary Care Provider Active Start: November 10, 2024 Dr. Eduardo Hartley DO Emergency Provider Active S tart: November 10, 2024 Dr. Evelyn Doss DO Admit Provider Active Start: November 10, 2024 Dr. Evelyn Doss DO Other Provider Active Start: November 10, 2024 Dr. Riky Li MD Other Provider Active Sta rt: November 10, 2024 Dr. Dennis Rocha MD Attending Provider Active Start: November 10, 2024 Team Status: Active Member Role Status Dates Dr. Clarice Murillo MD Primary Care Provider Active Start: November 10, 2024 Dr. Eduardo Hartley DO Emergency Provider Active S tart: November 10, 2024 Dr. Evelyn Doss DO Admit Provider Active Start: November 10, 2024 Dr. Evelyn Doss DO Other Provider Active Start: November 10, 2024 Dr. Riky Li MD Attending Provider Active Start: November 10, 2024 Dr. Riky Li MD Other Provider Active Sta rt: November 10, 2024 Varnish Blender Relationship Specialty Start Date End Date Clarice Murillo MD [address] [place] [address] PCP - General 02/07/09 Manuel Bravo MD [address] [address] Vice President Quality Improvement Pulmonary and Critical Care Medicine 06/01/21 Karla Campuzano APRN.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 [address] [address] Sock Boarder [facility] Medicine 06/24/24 Sid Frank APRN.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 [address] [place] [address] [facility] 07/03/24 Varnish Blender Relationship Specialty Start Date End Date Clarice Murillo MD [address] [place] [address] PCP - General 02/07/09 Manuel Bravo MD [address] [address] Vice President Quality Improvement Pulmonary and Critical Care Medicine 06/01/21 Sid Frank APRN.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 [address] [place] [address] [facility] Varnish Blender Relationship Specialty Start Date End Date Clarice Murillo MD [address] [place] [address] PCP - General 02/07/09 Manuel Bravo MD [address] [address] Vice President Quality Improvement Pulmonary and Critical Care Medicine 06/01/21 Sid Frank VENEER MANUFACTURER.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 [address] [place] [address] [facility] 07/03/24 Varnish Blender Relationship Specialty Start Date End Date Clarice Murillo MD [address] [place] [address] PCP - General 02/07/09 Manuel Bravo MD [address] [id number] Vice President Quality Improvement Pulmonary and Critical Care Medicine 06/01/21 Sid Frank APRN.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 [address] [place], [place] [id number] [facility] 07/03/24 Varnish Blender Relationship Specialty Start Date End Date Clarice Murillo MD [address] [place], [place] [address] PCP - General 02/07/09 Manuel Bravo MD [address] [id number] Vice President Quality Improvement Pulmonary and Critical Care Medicine 06/01/21 Sid Frank APRN.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 [address] [place], [place] [address] [facility] 07/03/24 FOR RECORDS PERTAINING TO PATIENTS WHO ARE OR HAVE BEEN ENROLLED IN A CHEMICAL DEPENDENCY/SUBSTANCEABUSE PROGRAM, SOME INFORMATION MAY BE OMITTED. This clinical summary was aggregated from multiple sources. Caution should be exercised in using it in the provision of clinical care. This summary normalizes information from multiple sources, and as a consequence, information in this document may materially change the coding, format and clinical context of patient data. In addition, data may be omitted in some cases. CLINICAL DECISIONS SHOULD BE BASED ON THE PRIMARY CLINICAL RECORDS. [facility] [employer] [facility]. provides no warranty or guarantee of the accuracy or completeness of information in this document.
[2025-03-10 18:24] LABS: Mucous, Urine 0 SEEN /hpf (<or=2+)
[2025-03-10 18:29] LABS: Color, Urine Straw (Yellow); Glucose, Dipstick Normal (Normal); Ketone-Dipstick Negative (Negative); Leukocyte Esterase-Dipstick Negative /ul (Negative); Nitrite-Dipstick Negative (Negative); Occult Blood-Urine Negative /ul (Negative); Protein-Dipstick 30 mg/dl (Negative); Specific Gravity, Urine 1.010 (1.002-1.030); Urine Bilirubin Dipstick Negative (Negative)
[2025-03-10 18:43] LABS: Red Blood Cells-Urine 0-5 SEEN /hpf (0-5); Squamous Epithelial Cells - UA 0-5 SEEN /hpf (0-5)
--- NOTE | 2025-03-10 19:21 | PCM.HP.STD ---
HPI - General General Date of Admission: 03/10/25 Date of Service: 03/10/25 Chief Complaint: Lower GI bleed HPI Narrative PACO WHITNEY, is a 89 M who presented to [facility] ED on 03/10/2025 with lower GI bleed. Medical history significant for diverticulosis with diverticular bleeds. Last diverticular bleed was back in 2019. He presented with bright red blood per rectum with significant clots. Colonoscopy showed diverticulosis in the entire examined colon with blood in the sigmoid colon, no active signs of bleeding. Patient notes that his was hospitalized here this week and is now at [place], and he has been on his normal routine and frequently going back and forth from home to the hospital and now [place]. He has also been eating out with more meals over that timeframe. This afternoon while he was out of the house, he fell again to have an urgent bowel movement and went to the bathroom and had a bloody stool. He then went home and had another bloody bowel movement, so he came in for further evaluation. In the ED he had a third bright red stool. He was normotensive and hemodynamically stable on room air. Hemoglobin 12.9, baseline 12-13. BMP with creatinine 1.33, baseline 1.1-1.2. CT abdomen pelvis showed diverticulosis with no source of bleeding identified. Given the multiple episodes of BRBPR and history of diverticular hemorrhage, hospitalist was contacted for admission. I saw the patient at bedside in the ED, family members were present. Patient was mildly fatigued appearing but otherwise sitting back comfortably in bed, conversing normally, in no acute distress. Patient was alert and oriented x 3 and is mentally sharp for his age. Had mild left lower quadrant abdominal pain but otherwise denies any other pain or discomfort. No other acute concerns currently. Will be admitted for further management. [facility] Medical History PAD (peripheral artery disease) Renal cyst Vertebrobasilar artery syndrome Diverticulosis Kidney stone Lung nodule AAA (abdominal aortic aneurysm) Bilateral carotid artery stenosis Asthma Arthritis Diverticular hemorrhage Lower GI bleed BPH (benign prostatic hyperplasia) GERD (gastroesophageal reflux disease) Peripheral neuropathy History of gastrointestinal bleeding Hx-TIA (transient ischemic attack) Chronic obstructive lung disease HTN (hypertension), benign Home Medications ?Medication ?Instructions ?Recorded ?Last Taken ?Type albuterol sulfate 90 mcg/actuation 2 puff inhalation Q4H PRN Sob &/Or 07/05/14 03/10/25 History aerosol inhaler Wheezing ramipril 10 mg capsule 10 mg PO DAILY BP 07/05/14 03/10/25 History pantoprazole 40 mg tablet,delayed 40 mg PO DAILY gerd 08/21/14 11/08/24 History release cholecalciferol (vitamin D3) 25 5,000 unit PO TID Supplement 11/23/14 03/10/25 History mcg (1,000 unit) tablet tamsulosin 0.4 mg capsule 0.4 mg PO QHS Prostate 11/23/14 03/09/25 20:40 History budesonide-formoterol HFA 160 2 puff inhalation BID Breathing 06/28/18 03/10/25 08:39 History mcg-4.5 mcg/actuation aerosol inhaler fenofibrate 160 mg tablet 160 mg PO DAILY cholesterol 04/10/19 03/10/25 History albuterol sulfate 2.5 mg/3 mL 2.5 mg continuous nebulization Q4H 11/08/24 Unknown History (0.083 %) solution for nebulization PRN wheezing gabapentin 600 mg tablet 600 mg PO TID neuropathy 11/08/24 03/10/25 02:40 History latanoprost 0.005 % eye drops 1 drp ophthalmic (eye) DAILY 11/08/24 03/10/25 History glaucoma Allergy/AdvReac Type Severity Reaction Status Date / Time cerivastatin sodium (From Allergy Severe Other Verified 03/10/25 15:48 Baycol) gemfibrozil (From Lopid) AdvReac Other Verified 03/10/25 15:48 meperidine (From Demerol) AdvReac Other Verified 03/10/25 15:48 Surgical History Total knee replacement status History of colonoscopy (~03/2019) History of esophagogastroduodenoscopy (EGD) (~03/2019) History of back surgery History of detached retina repair Status post vasectomy History of cholecystectomy History of left knee replacement History of back surgery Social History (Updated 03/10/25 @ 16:21 by April Gardner) household members: none Smoking Status: Never smoker ROS Constitutional Constitutional: Reports fatigue; Denies chills, fever(s) or weakness Cardiovascular Cardiovascular: Denies chest pain Respiratory/Chest Respiratory/Chest: Denies shortness of breath at rest Gastrointestinal Gastrointestinal: Reports abdominal pain and hematochezia; Denies constipation, diarrhea, nausea or vomiting Musculoskeletal Musculoskeletal: Denies arthralgias or myalgias Neurologic Neurologic: Denies dizziness, focal weakness, headache(s), numbness or tingling Vital Signs Vital Signs Vital Signs: 03/10/25 15:48 03/10/25 16:48 03/10/25 18:00 Temperature 98.5 F Temperature Source Oral Pulse Rate 84 59 L 64 Respiratory Rate 18 23 H 26 H Blood Pressure 95/64 140/57 H Blood Pressure Mean 74 84 Pulse Ox 97 98 96 Oxygen Delivery Method Room Air Room Air 03/10/25 19:00 Temperature Temperature Source Pulse Rate 62 Respiratory Rate 14 Blood Pressure 118/61 Blood Pressure Mean 80 Pulse Ox 96 Oxygen Delivery Method Room Air Weight Weight: 88 kg Body Mass Index (BMI) 28.6 Physical Exam Const alert, oriented x3, no apparent distress and average body habitus Constitutional Narrative: Pleasant elderly male, mentally sharp for his age, mildly fatigued appearing but otherwise sitting back comfortably in bed, conversing normally, in no acute distress. General Appearance: cooperative and comfortable HEENT normocephalic, head/scalp atraumatic, hearing grossly normal bilaterally, nasal mucous membranes and turbinates normal and moist oral mucous membranes Eyes PERRL, EOMs intact bilaterally and conjunctivae normal Neck full ROM Chest inspection of chest normal Resp normal respiratory effort, normal air movement, no use of accessory muscles and clear to auscultation bilaterally Cardio regular rate, regular rhythm, no murmurs and peripheral pulses 2+ throughout GI GI Narrative: Mild left lower quadrant tenderness palpation. Abdomen otherwise soft and nondistended. Back/Spine normal ROM Extremity normal to inspection, full ROM and no pedal edema Skin no rashes or lesions noted Psych mental status grossly normal Results Lab / Micro Data 03/10/25 15:58 03/10/25 15:58 Labs: Laboratory Results - last 24 hr 03/10/25 15:58: WBC 8.6, RBC 4.00 L, Hgb 12.9 L, Hct 37.7 L, MCV 94.3 H, MCH 32.3 H, MCHC 34.2, RDW Std Deviation 48.0 H, RDW Coeff of Nohemi 14.1, Plt Count 237, MPV 9.4, Immature Gran % (Auto) 0.300, Neut % (Auto) 73.3 H, Lymph % (Auto) 17.5 L, Stevens % (Auto) 7.2, Eos % (Auto) 0.9, Baso % (Auto) 0.8, Absolute Neuts (auto) 6.3, Absolute Lymphs (auto) 1.51, Nucleated RBC % 0, Sodium 141, Potassium 4.6, Chloride 108, Carbon Dioxide 20.3 L, Anion Gap 13, BUN 33 H, Creatinine 1.33 H, Estim Creat Clear Calc 42.96 L, Est GFR (MDRD) Non-Af 52 L, BUN/Creatinine Ratio 25.0 H, Glucose 127 H, Calcium 9.6, Total Bilirubin 0.45, AST 30, ALT 21, Alkaline Phosphatase 86, Total Protein 5.9, Albumin 3.5, Globulin 2.4, Albumin/Globulin Ratio 1.4, Lipase 71 03/10/25 18:18: Urine Color Straw, Urine Clarity Clear, Urine pH 7.0, Ur Specific Tebbetts 1.010, Urine Protein 30 H, Urine Glucose (UA) Normal, Urine Ketones Negative, Urine Occult Blood Negative, Urine Nitrite Negative, Urine Bilirubin Negative, Urine Urobilinogen 1 H, Ur Leukocyte Esterase Negative, Urine RBC 0-5 SEEN, Urine WBC 0-5 SEEN, Ur Squamous Epith Cells 0-5 SEEN, Urine Bacteria 0 SEEN, Urine Mucus 0 SEEN Imaging Radiology Impression Abdomen/Pelvis CT 03/10/25 16:05 IMPRESSION: No obvious GI extravasation of contrast. No source of bleeding identified. Diverticulosis without identified diverticulitis. 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 Bilateral parapelvic cysts and cortical cystic lesions in the kidneys Reading [facility] Assessment & Plan Assessment/Plan (1) Lower GI bleed: PLAN: Plan Patient is an 89-year-old male who presented to [facility] ED on 03/10/2025 with lower GI bleed. 1. Bright red blood per rectum suspected secondary to recurrent diverticular bleed ? Admit under inpatient status to PCU. GI consulted. Presented with multiple episodes of bright bloody stools. 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 Hemoglobin 12.9 on admit, stable at baseline but given his multiple episodes of bloody stools, suspect hemoglobin will begin to downtrend. Will keep n.p.o. at midnight with plan for possible lower scope tomorrow if needed. Follow-up a.m. CBC. 2. Mildly elevated creatinine ? Creatinine 1.33 on admit, baseline 1.1-1.2. Given 1 L of IV fluids in the ED for suspected dehydration in setting of multiple bowel movements. Follow-up a.m. BMP and monitor urine output. Chronic medical conditions: ? COPD: Stable on room air, not in acute exacerbation. Continue home inhalers. ? GERD: Continue home PPI. ? Hypertension/hyperlipidemia: Holding home FEDERICO inhibitor. Continue home fenofibrate. ? Neuropathy: Continue home gabapentin. DVT prophylaxis: SCDs CODE STATUS: Full code, verified Expected disposition: Home, TBD Total clinical time spent by myself addressing the patient's medical issues, reviewing all the data, and collaborating with patient's care team: 55 minutes. Charges/Coding Visit Charges Inpatient E&M: 74203 Init Hosp L2
--- OUTSIDE RECORDS SUMMARY | 2025-03-10 20:05 | XMS RPT_ITS | CCD ---
Author Organization [facility] CliniSytn Care Team Providers Care Filenet Developer Name Role Phone EVELYN MADDEN DO Unavailable Unavailable EVELYN MADDEN DO Unavailable Unavailable CLARICE MURILLO Unavailable Unavailable EVELYN MADDEN DO Unavailable Unavailable CLARICE MURILLO Unavailable Unavailable PROVIDER, UNKNOWN Unavailable Unavailable Clarice Murillo MD Primary Care Provider [...] Clarice Murillo MD Primary Care Provider Tannhof MEDICAL TECHNOLOGIST CHEMISTRY.WARHEAD MAINTENANCE SPECIALIST, Karla Unavailable Zac MEDICAL TECHNOLOGIST CHEMISTRY.WARHEAD MAINTENANCE SPECIALIST, Sid Unavailable Tannhof MEDICAL TECHNOLOGIST CHEMISTRY.SARAI, Karla Unavailable Unavail able Chidi FOWLER, Dr. Melo Primary Care Provider Odilia DO, Dr. Clark Emergency Provider Josefina FOWLER, Dr. Collins Attending Provider Doss DO, Dr. Hewitt Admit Provider Unavail able Doss DO, Dr. Hewitt Other Provider Unavail able Guillermo FOWLER, Dr. Lan Attending Provider Guillermo FOWLER, Dr. Lan Other Provider Tannhof MEDICAL TECHNOLOGIST CHEMISTRY.SARAI, Karla Unavailable YNES TALAMANTES Attending Unavailable CLARICE [...] CLARICE D Primary Care Unavailable TANNHOF, KARLA ROASE Referring Unavailabl e ELDERBROCK, CLARICE D Primary [...] cerivastatin Drug Allergy 3 Other: See Comments [facility] Work Phone: Gemfibrozil (1 source) Gemfibrozil Drug Allergy 6 Other: See Comments [facility] Work Phone: Iodine (and Iodine containting drugs) (1 source) Iodine Drug Allergy [address] [facility] Opioid Agonists (1 source) Meperidine Drug Allergy 7 Mental Status Change [facility] (1 source) meperidine Drug Allergy [facility] Repository (20 sources) Gemfibrozil; Translations: [GEMFIBROZIL] Drug Allergy 6 Other: See Comments [facility] Work Phone: (20 sources) Iodine; Translations: [IODINE] Drug Allergy [address] [facility] (20 sources) Meperidine; Translations: [MEPERIDINE (PF)] Drug Allergy 7 Mental Status Change [facility] (20 sources) baycolOther] [Other] Propensity to adverse reactions 7 Other: See Comments [facility] Work Phone: (1 source) OTHER; Translations: [OTHER] Propensity to adverse reactions (disorder) [address] [facility] Other [facility] (20 sources) cerivastatin; Translations: [BAYCOL] Drug Allergy 3 Other: See Comments [facility] Other [facility] (2 sources) cerivastatin; Translations: [cerivastatin sodium] Drug Allergy 5 Other [facility] Comment on above: KIDNEY FAILURE (1 source) Meperidine Drug Allergy 5 Other [facility] (1 source) Gemfibrozil Drug Allergy 5 [facility] Repository (1 source) Meperidine Drug Allergy 5 [facility] Repository Medications Current Medications Medication Drug Class(es) [...] on above: Take 1 capsule by mo [facility] once daily. azithromycin 250 mg oral tablet [...] Start: 11-23-2014 take 3 tablets by mo [facility] twice daily Cholecalciferol (Vitamin D3) 1,000 UNIT [...] for 10 days. Take 1 tablet by татяьна th twice daily for 7 days. fenofibrate [...] Comment on above: Take 1 capsule by [facility] three times daily. Take 1 capsule by [facility] three times daily for 180 days. Take 1 capsule by [facility] three times a day for 180 days. [...] Comment on above: Take 2 tablets by [facility] twice daily. Take 2 tablets by [facility] twice daily. As needed hydrocortisone 10 mg/ml / neomycin 3.5 mg/ml / polymyxin b 28583 unt/ml otic suspension (20 sources) Aminoglycoside Antibacterial, Polymyxin-class Antibacterial, Corticosteroid Start: 07-08-2023 fftnmnyh-fsjfutuqb-ao drocortisone (CORTISPORIN) 3.5-10,000-1 mg/mL-unit/mL-% otic suspension Use 4 Drops in the ears four times daily. x 1 week 10 mL 2 07/08/2023 Active Start: 05-29-2021 End: 05-18-2023 uoedjnep-hydhkfhqh-dggqehgwx isone (CORTISPORIN) 3.5-10,000-1 mg/mL-unit/mL-% otic suspension Use [...] 1/2 hr before meal. polyethylene glycol 3350 64463 mg powder for oral solution (1 source) [...] for 5 days. Take 2 tablets by [facility] once daily for 5 days. Take 1 tablet by [facility] once daily for 5 days. ramipril 10 mg oral capsule (20 sources) Angiotensin Converting Enzyme Inhibitor Start: 4 End: 6 take 1 capsule by mouth once daily ramipril (ALTACE) 10 mg capsule Indications: Essential hypertension, benign Take 1 capsule by mouth once daily. 90 capsule 3 11/19/2024 11/19/2025 Active Comment on above: Take 1 capsule by [facility] once daily. tamsulosin hydrochloride 0.4 mg oral capsule (20 sources) alpha-Adrenergic Edward Start: 1 End: 5 take 1 capsule by mouth once daily at bedtime tamsulosin (FLOMAX) 0.4 mg TAKE ONE CAPSULE BY MOUTH ONCE DAILY AT BEDTIME 90 capsule 3 09/07/2024 Active Start: 11-23-2014 take 1 capsule by [facility] at bedtime Tamsulosin 0.4 MG capsule Active [...] eight hours as needed for wheezing Ipratropium [place] 0.5 MG/2.5 ML solution Discontinued 0.5 mg [...] (1 source) Follow-up in 3 days at [facility] in clinic Unclassified (3 sources) Bilateral [...] Body Fluidon 03-06 PATH REV Reviewed Normal [facility] Comment on above: Order Comment: Comme nts: Left wrist aspirateComments: Left wrist aspirateReviewed by Dr. Fletcher.Sammie Fletcher MD 03/06/2025 Performed By: #### L 501.2300, L500.2500 #### [facility] [address] [place], [address] Synovial Fluid RBC, WBC AND Diffon 02-26-2025 PATH COM/SYFL Reviewed Normal [facility] Comment on above: Order Comment: Comme nts: Left wrist aspirateComments: Left wrist aspirate Result Comment: NEGA TIVE FOR CRYSTALS. Sammie Fletcher MD 02/25/2025 AMENDED REPORT 02/26/25 0848 PATH COM/SYFL previously reported as: May follow Performed By: #### L 501.2300, L500.2500 #### [facility] [address] [place], [place], [address] CNOVon 02-22-2025 CNOV Office Visit (ORTHWS ) PACO WHITNEY ([id number]) 1935 M Date Time Provider Department 02/22/25 [...] Department of Orthopaedics [facility] [address] [facility] [address] Dept: [phone] Dept February 22, 2025 CHIEF COMPLAINT: Pain [...] (M17.11) - Chronic right knee OA, likely rdqm-pe-vaja. - Ordered new X-rays of the right [...] these instructions. Informed Consent Consent Obtained: Verbal Hunter Protocol A moment to CARE was complete (more content not included)... Normal [facility] XR KNEE 4V AP/PA BOTH+LAT/ME R [...] medial and patellofemoral joint compartment narrowing with cqsf-rv-qjfa appearance and tricompartment spur formation. Chondrocalcinosis. No fracture or dislocation. Small joint effusion. Advanced vascular calcifications. Significant varus angulation. 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: [employer] Transcribe Date/Time: Feb 24 2025 5:22P Dictated by : SKYLAR JAIN MD This examination was interpreted and the report reviewed and electronically signed by: SKYLAR JAIN MD on Feb 24 2025 5:23PM EST [id number] Normal [facility] CNOVon 02-05-2025 CNOV Office Visit (FAMPWS ) PACO WHITNEY ([id number]) 1935 M Date Time Provider Department 02/05/25 3:00 PM [facility] During your visit today, we recorded the following information about you: Pulse Respiration Blood pressure Weight 76/minute 16/minute 110/68 86.4 kg Clarice Murillo MD 02/05/2025 3:42 PM Signed Chief Complaint Patient presents with: 6 Month Exam HPI Paco Whitney is a 89 year old male who presents here today for 6 month follow up. Pt recently discharged from [facility] to SNF as pt is not able to care for pt any longer. 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 [...] W/COLLJ SPEC WHEN PFRMD 09/19/2011 [facility] ENDOVASCULAR ANEURYSM REPAIR 01/2013 with bi-liac [...] tamsulosin ( (more content not included)... Normal [facility] XR SHLDR >/=3V AP/TIA AP/OTH R [...] are unremarkable. IMPRESSION: Advanced bilateral glenohumeral osteoarthritis. 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 IMPRESSION: Advanced bilateral glenohumeral osteoarthritis. 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: [facility] Transcribe Date/Time: Feb 08 2025 7:55A Dictated by : FRANCIA EDEN MD This examination was interpreted and the report reviewed and electronically signed by: FRANCIA EDEN MD on Feb 08 2025 7:56AM EST [id number] Normal [facility] Comprehensive metabolic 2000 panelon 01-30-2025 Albumin [Mass/Vol] 3.8 g/dL Low 3.9-4.9 [facility] Comment on above: Order Comment: Speci men Type: BLOOD SPECIMENOrdering Facility: [facility] Address: [address] [place] [address] Performed By: #### 2 4323-8, 99027-0 ####[facility] LABCLIA [id number] [place] [address] [place] ALP [Catalytic activity/Vol] 91 U/L Normal 38-113 [facility] Comment on above: Order Comment: Speci men Type: BLOOD SPECIMENOrdering Facility: [facility] Address: [address] [place] [address] Performed By: #### 2 4323-8, 44693-7 ####[facility] LABCLIA [id number] [place] [address] [place] ALT [Catalytic activity/Vol] 15 U/L Normal 10-54 [facility] Comment on above: Order Comment: Speci men Type: BLOOD SPECIMENOrdering Facility: [facility] Address: [address] [place] [address] Performed By: #### 2 4323-8, 89121-7 ####[facility] LABCLIA [id number] [place] [id number] [place] Anion gap [Moles/Vol] 10 mmol/L Normal 8-15 [facility] Comment on above: Order Comment: Speci men Type: BLOOD SPECIMENOrdering Facility: [facility] Address: [address] [place] [address] Performed By: #### 2 4323-8, 09847-1 ####[facility] LABCLIA [id number] [place] [id number] [place] AST [Catalytic activity/Vol] 29 U/L Normal 14-40 [facility] Comment on above: Order Comment: Speci men Type: BLOOD SPECIMENOrdering Facility: [facility] Address: [address] [place] [address] Performed By: #### 2 4323-8, 60311-2 ####[facility] LABCLIA [id number] [place] [address] [place] Bilirubin [Mass/Vol] 0.9 mg/dL Normal 0.2-1.3 [facility] Comment on above: Order Comment: Speci men Type: BLOOD SPECIMENOrdering Facility: [facility] Address: [address] [place] [address] Performed By: #### 2 4323-8, 78624-0 ####[facility] LABCLIA [id number] [place] [address] [place] Calcium [Mass/Vol] 10.2 mg/dL Normal 8.5-10.2 [facility] Comment on above: Order Comment: Speci men Type: BLOOD SPECIMENOrdering Facility: [facility] Address: [address] [place] [address] Performed By: #### 2 4323-8, 73514-6 ####[facility] LABCLIA [id number] [place] [address] [place] Chloride [Moles/Vol] 107 mmol/L Normal 98-107 [facility] Comment on above: Order Comment: Speci men Type: BLOOD SPECIMENOrdering Facility: [facility] Address: [address] [place] [address] Performed By: #### 2 4323-8, 62927-2 ####[facility] LABCLIA [id number] [place] [id number] [place] CO2 [Moles/Vol] 25 mmol/L Normal 22-30 [facility] Comment on above: Order Comment: Speci men Type: BLOOD SPECIMENOrdering Facility: [facility] Address: [address] [place] [address] Performed By: #### 2 4323-8, 35477-4 ####[facility] LABIA [id number] [address] [address] [place] Creatinine [Mass/Vol] 1.11 mg/dL Normal 0.73-1.22 [facility] Comment on above: Order Comment: Speci men Type: BLOOD SPECIMENOrdering Facility: [facility] Address: [address] [place] [address] Performed By: #### 2 4323-8, 54190-6 ####[facility] LABIA [id number] [place] [address] [place] eGFRcr SerPlBld CKD-EPI 2020 64 mL/min/1.73m??? Normal >=60 [facility] Comment on above: Order Comment: Speci men Type: BLOOD SPECIMENOrdering Facility: [facility] Address: [address] [place] [address] Result Comment: Toya mated Glomerular Filtration Rate [...] actual GFR. Performed By: #### 2 4323-8, 63399-0 ####[facility] LABIA [id number] [address] [address] [place] Glucose [Mass/Vol] 90 mg/dL Normal 74-99 [facility] Comment on above: Order Comment: Speci men Type: BLOOD SPECIMENOrdering Facility: [facility] Address: [address] [place] [address] Result Comment: The [place] Diabetes Association (ADA) provides guidance for cutoff [...] Standards of Medical Care in Diabetes 2016, [place] Diabetes Association. Diabetes Care. 2016.39(Suppl 1). Performed By: #### 2 4323-8, 34628-8 ####[facility] LABCLIA [id number] [place] [address] [place] Potassium [Moles/Vol] 4.8 mmol/L Normal 3.7-5.1 [facility] Comment on above: Order Comment: Speci men Type: BLOOD SPECIMENOrdering Facility: [facility] Address: [address] [place] [address] Performed By: #### 2 4323-8, ####[facility] LABCLIA [id number] [place] [address] [place] Protein [Mass/Vol] 6.5 g/dL Normal 6.3-8.0 [facility] Comment on above: Order Comment: Speci men Type: BLOOD SPECIMENOrdering Facility: [facility] Address: [address] [place] [address] Performed By: #### 2 4323-8, ####[facility] LABCLIA [id number] [address] [address] [place] Sodium [Moles/Vol] 142 mmol/L Normal 136-144 [facility] Comment on above: Order Comment: Speci men Type: BLOOD SPECIMENOrdering Facility: [facility] Address: [address] [place] [address] Performed By: #### 2 4323-8, ####[facility] LABCLIA [id number] [address] [address] [place] Urea nitrogen [Mass/Vol] 29 mg/dL High 9-24 [facility] Comment on above: Order Comment: Maryi men Type: BLOOD SPECIMENOrdering Facility: [facility] Address: [address] [place] [address] Performed By: #### 2 4323-8, 02275-6 ####[facility] LABCLIA [id number] [address] [address] [place] HbA1c (Bld)on 01-30-2025 Average glucose Estimated from glycated hemoglobin (Bld) [Mass/Vol] 88 mg/dL Normal [facility] Comment on above: Order Comment: Zach vinson Type: BLOOD SPECIMENOrdering Facility: [facility] Address: [address] [place] [address] Result Comment: eAG: (Estimated average glucose) is a calculated value from HgbA1c and is transportation services representative of the average blood glucose level in the last 2-3 month period. Performed By: #### 5 5454-3 ####[facility] LABCLIA [id number] [place] [address] [place] HbA1c (Bld) [Mass fraction] 4.7 % Normal 4.3-5.6 [facility] Comment on above: Order Comment: Maryi men Type: BLOOD SPECIMENOrdering Facility: [facility] Address: [address] [place] [address] Result Comment: Amer [place] Diabetes Association guidelines indicate that patients with HgbA1c in the range 5.7-6.4% are at increased risk for development of diabetes, and intervention by lifestyle modification may be beneficial. HgbA1c greater or equal to 6.5% is considered diagnostic of diabetes. Performed By: #### 5 5454-3 ####[facility] LABCLIA [id number] [address] [address] [place] Lipid 1996 panelon 5 Cholesterol [Mass/Vol] 143 mg/dL Normal <200 [facility] Comment on above: Order Comment: Speci men Type: BLOOD SPECIMENOrdering Facility: [facility] Address: [address] [place] [address] Result Comment: <200 mg/dL, Desirable 200-239 mg/dL, Borderline high >239 mg/dL, High Performed By: #### 2 4323-8, 05593-2 ####[facility] LABCLIA [id number] [facility] [id number] [address] [place] Cholesterol in HDL [Mass/Vol] 29 mg/dL Low >39 [facility] Comment on above: Order Comment: Speci men Type: BLOOD SPECIMENOrdering Facility: [facility] Address: [address] [place] [address] Result Comment: 40-5 9 mg/dL, Acceptable >59 mg/dL, High: Negative risk factor for coronary heart disease <40 mg/dL, Low: Positive risk factor for coronary heart disease Performed By: #### 2 4323-8, 39687-2 ####[facility] LABCLIA [id number] [facility] [id number] [address] [place] Cholesterol in LDL [Mass/Vol] 86 mg/dL Normal <100 [facility] Comment on above: Order Comment: Speci men Type: BLOOD SPECIMENOrdering Facility: [facility] Address: [address] [place] [address] Result Comment: <100 mg/dL, Optimal 100-129 mg/dL, Near optimal/above optimal 130-159 mg/dL, Borderline high 160-189 mg/dL, High >189 mg/dL, Very high Secondary prevention optimal LDL Cholesterol levels are recommended to be <70 mg/dL LDL cholesterol is calculated using the Torres-NIH equation. Performed By: #### 2 4323-8, 54296-6 ####[facility] LABCLIA [id number] [id number], [place] [address] [place] Cholesterol in LDL/Cholesterol in HDL [Mass ratio] 2.97 {ratio} High <2.54 [facility] Comment on above: Order Comment: Speci men Type: BLOOD SPECIMENOrdering Facility: [facility] Address: [address] [place] [address] Result Comment: Arnoldo ross: 1. National Cholesterol Education Program ATP III Guideline At-A-Glance Quick Desk Reference: National Heart, Lung, and Blood Medicine Bow. National Institutes of Health. 2001: NIH Publication No. 01-3305. 2. An International Atherosclerosis Society position paper: global recommendations for the management of dyslipidemia: executive summary, Atherosclerosis. 2014: 232(2):410-413. Performed By: #### 2 4323-8, 16816-1 ####[facility] LABCLIA [id number] [place] [address] [place] Cholesterol in VLDL [Mass/Vol] 25 mg/dL Normal <30 [facility] Comment on above: Order Comment: Marychichi vinson Type: BLOOD SPECIMENOrdering Facility: [facility] Address: [address] [place] [address] Performed By: #### 2 4323-8, 28094-0 ####[facility] LABCLIA [id number] [place] [address] [place] Cholesterol non HDL [Mass/Vol] 114 mg/dL Normal <130 [facility] Comment on above: Order Comment: Marychichi vinson Type: BLOOD SPECIMENOrdering Facility: [facility] Address: [address] [place] [address] Result Comment: <130 mg/dL, Optimal 130-159 mg/dL, Near optimal/above optimal 160-189 mg/dL, Borderline high 190-219 mg/dL, High >219 mg/dL, Very high Secondary prevention optimal non HDL Cholesterol levels are recommended to be <100 mg/dL Performed By: #### 2 4323-8, 97030-6 ####[facility] LABCLIA [id number] [address] [address] [place] Cholesterol.total/Chol esterol in HDL [Mass ratio] 4.93 {ratio} Normal <5.10 [facility] Comment on above: Order Comment: Speci men Type: BLOOD SPECIMENOrdering Facility: [facility] Address: [address] [place] [address] Performed By: #### 2 4323-8, 07510-8 ####[facility] LABCLIA [id number] [address] [address] [place] FASTING TIME 12 hrs Normal [facility] Comment on above: Order Comment: Speci men Type: BLOOD SPECIMENOrdering Facility: [facility] Address: [address] [place] [address] Performed By: #### 2 4323-8, 72866-7 ####[facility] LABCLIA [id number] [address] [address] [place] Triglyceride [Mass/Vol] 158 mg/dL High <150 [facility] Comment on above: Order Comment: Speci men Type: BLOOD SPECIMENOrdering Facility: [facility] Address: [address] [place] [address] Result Comment: <150 mg/dL, Normal 150-199 mg/dL, Borderline high 200-499 mg/dL, High >499 mg/dL, Very high Performed By: #### 2 4323-8, 59454-0 ####[facility] LABCLIA [id number] [address] [address] [place] Body Fluid Culton 11-14-2024 BFC Left wrist aspirate No growth aerobically. Normal [facility] Comment on above: Performed By: #### L 501.2300, L500.4050, L100.0100, L500.4100 #### [facility] [address] [place], [place], [id number] Plastic Surgery Visit Report on 11-13-2024 Plastic Surgery Visit Report [facility] Plastic Reconstructive Surgery [address], [address] [place] [address] OFFICE VISIT Date of Service: 11/13/24 MR#: [id number] Acct: [id number] Name: PACO WHITNEY Rep #: [id number] : 1935 Provider: Dr. Dennis Rocha MD Age/Sex: 89/M Location: [place] [address] Status: Signed Intake Vital Signs 3 11/08/24 [...] is a an 89-year-old male admitted to [facility] on 08 November 2024 for left hand [...] Clinical Qu (more content not included)... Normal [facility] Basic Metabolic Profile (BMP )on 11-11-2024 BUN Normal 4-19 [facility] Comment on above: Result Comment: Canc elled via OM: Order cancelled - Patient discharged Performed By: #### L 501.2300, L500.2500 #### [facility] [address] [facility] [address] BUN/CRE Normal 10-20 [facility] Comment on above: Result Comment: Canc elled via OM: Order cancelled - Patient discharged Performed By: #### L 501.2300, L500.2500 #### [facility] [address] [facility] [address] Calcium Normal 7.6-11.0 [facility] Comment on above: Result Comment: Canc elled via OM: Order cancelled - Patient discharged Performed By: #### L 501.2300, L500.2500 #### [facility] [address] [facility] [address] CL Normal 98-108 [facility] Comment on above: Result Comment: Canc elled via OM: Order cancelled - Patient discharged Performed By: #### L 501.2300, L500.2500 #### [facility] [address] [facility] [address] CO2 Normal 21.0-32.0 [facility] Comment on above: Result Comment: Canc elled via OM: Order cancelled - Patient discharged Performed By: #### L 501.2300, L500.2500 #### [facility] [address] [place], [address] CREAT,SERUM Normal 0.70-1.20 [facility] Comment on above: Result Comment: Canc elled via OM: Order cancelled - Patient discharged Performed By: #### L 501.2300, L500.2500 #### [facility] [address] [place], [address] eGFR Normal >60 [facility] Comment on above: Result Comment: Canc elled via OM: Order cancelled - Patient discharged Performed By: #### L 501.2300, L500.2500 #### [facility] [address] [place], [address] GAP Normal 5-15 [facility] Comment on above: Result Comment: Canc elled via OM: Order cancelled - Patient discharged Performed By: #### L 501.2300, L500.2500 #### [facility] [address] [place], [address] GLU Normal 70-99 [facility] Comment on above: Result Comment: Canc elled via OM: Order cancelled - Patient discharged Performed By: #### L 501.2300, L500.2500 #### [facility] [address] [place], [address] Potassium Normal 3.3-5.1 [facility] Comment on above: Result Comment: Canc elled via OM: Order cancelled - Patient discharged Performed By: #### L 501.2300, L500.2500 #### [facility] [address] [place], [address] Basic Metabolic Profile (BMP) Normal 133-145 [facility] Comment on above: Result Comment: Canc elled via OM: Order cancelled - Patient discharged Performed By: #### L 501.2300, L500.2500 #### [facility] [address] [place], [address] CBC W/Diff, Automatedon 04-2 Absolute Neut Normal 2.0-7.7 [facility] Comment on above: Result Comment: Canc elled via OM: Order cancelled - Patient discharged Performed By: #### L 501.2300, L500.2500 #### [facility] [address] [place], [address] HCT Normal 40-54 [facility] Comment on above: Result Comment: Canc elled via OM: Order cancelled - Patient discharged Performed By: #### L 501.2300, L500.2500 #### [facility] [address] [place], [address] HGB Normal 13.0-16.5 [facility] Comment on above: Result Comment: Canc elled via OM: Order cancelled - Patient discharged Performed By: #### L 501.2300, L500.2500 #### [facility] [address] [place], [address] MCH Normal 27.0-32.0 [facility] Comment on above: Result Comment: Canc elled via OM: Order cancelled - Patient discharged Performed By: #### L 501.2300, L500.2500 #### [facility] [address] [place], [address] MCHC Normal 32-36 [facility] Comment on above: Result Comment: Canc elled via OM: Order cancelled - Patient discharged Performed By: #### L 501.2300, L500.2500 #### [facility] [address] [place], [address] MCV Normal 80-94 [facility] Comment on above: Result Comment: Canc elled via OM: Order cancelled - Patient discharged Performed By: #### L 501.2300, L500.2500 #### [facility] [address] [place], [address] NEUT% Normal 47-70 [facility] Comment on above: Result Comment: Canc elled via OM: Order cancelled - Patient discharged Performed By: #### L 501.2300, L500.2500 #### [facility] [address] [place], [address] PLT Normal 150-450 [facility] Comment on above: Result Comment: Canc elled via OM: Order cancelled - Patient discharged Performed By: #### L 501.2300, L500.2500 #### [facility] [address] [place], [address] RBC Normal 4.6-6.2 [facility] Comment on above: Result Comment: Canc elled via OM: Order cancelled - Patient discharged Performed By: #### L 501.2300, L500.2500 #### [facility] [address] [place], [address] RDW CV Normal 11.6-14.6 [facility] Comment on above: Result Comment: Canc elled via OM: Order cancelled - Patient discharged Performed By: #### L 501.2300, L500.2500 #### [facility] [address] [place], [address] RDW SD Normal 35.1-43.9 [facility] Comment on above: Result Comment: Canc elled via OM: Order cancelled - Patient discharged Performed By: #### L 501.2300, L500.2500 #### [facility] [address] [place], [address] WBC Normal 4.4-11.0 [facility] Comment on above: Result Comment: Canc elled via OM: Order cancelled - Patient discharged Performed By: #### L 501.2300, L500.2500 #### [facility] [address] [place], [address] Culture, Anaerobic Any Sourc sayda 11-11-2024 CUAN Left wrist aspirate No anaerobic bacteria isolated. Normal [facility] Comment on above: Performed By: #### L 501.2300, L500.4050, L100.0100, L500.4100 #### [facility] [address] [place], [address] Absolute neutrophil countOrd ered By: Riky Li on 11-10-2024 Neutrophils (Bld) [#/Vol] 4.9 10*3/uL 2.0-7.7 [facility] Anion gap in Serum or Plasma Ordered By: Riky Li on 11-10-2024 Anion gap [Moles/Vol] 9 mmol/L - [facility] BUN/creatinine ratioOrdered By: Riky Li on 11-10-2024 Urea nitrogen/Creatinine [Mass ratio] 19.7 mg/mg 05-06 [facility] Basic Metabolic Profile (BMP )on 11-10-2024 BUN/CRE 19.7 RATIO Normal 05-06 [facility] Comment on above: Performed By: #### L 501.2300, L500.2500 #### [facility] [address] [place], [address] Calcium [Mass/Vol] 9.1 mg/dL Normal 7.6-11.0 [facility] Comment on above: Performed By: #### L 501.2300, L500.2500 #### [facility] [address] [place], [address] Chloride [Moles/Vol] 105 mmol/L Normal 98-108 [facility] Comment on above: Performed By: #### L 501.2300, L500.2500 #### [facility] [address] [place], [address] CO2 [Moles/Vol] 24.1 mmol/L Normal 21.0-32.0 [facility] Comment on above: Performed By: #### L 501.2300, L500.2500 #### [facility] [address] [place], [address] Creatinine [Mass/Vol] 1.19 mg/dL Normal 0.70-1.20 [facility] Comment on above: Performed By: #### L 501.2300, L500.2500 #### [facility] [address] [place], [address] ECRCL 48.56 ml/min Low 50-250 [facility] Comment on above: Performed By: #### L 501.2300, L500.2500 #### [facility] [address] [place], [address] GAP 9 Normal 5-15 [facility] Comment on above: Performed By: #### L 501.2300, L500.2500 #### [facility] [address] [place], [address] GFR/1.73 sq M.predicted among non-blacks MDRD (S/P/Bld) [Vol rate/Area] 59 mL/min/{1.73_m2} Low >60 [facility] Comment on above: Result Comment: mL/m in/1.73m2 CKD-EPI Creatinine Equation (2020) Performed By: #### L 501.2300, L500.2500 #### [facility] [address] [place], [address] Glucose [Mass/Vol] 101 mg/dL High 70-99 [facility] Comment on above: Performed By: #### L 501.2300, L500.2500 #### [facility] [address] [place], [address] Potassium [Moles/Vol] 4.3 mmol/L Normal 3.3-5.1 [facility] Comment on above: Performed By: #### L 501.2300, L500.2500 #### [facility] [address] [place], [address] Sodium [Moles/Vol] 137 mmol/L Normal 133-145 [facility] Comment on above: Performed By: #### L 501.2300, L500.2500 #### [facility] [address] [place], [address] Urea nitrogen [Mass/Vol] 23 mg/dL High 4-19 [facility] Comment on above: Performed By: #### L 501.2300, L500.2500 #### [facility] [address] [place], [address] Basophil percentageOrdered B y: Riky Guillermo on 11-10-2024 Basophils/100 WBC (Bld) 0.6 % 0-1 [facility] CBC W/Diff, Automatedon 10-17 Absolute Lymph 1.91 X10 3/uL Normal 0.83-4.51 [facility] Comment on above: Performed By: #### L 501.2300, L500.2500 #### [facility] [address] [place], [address] Absolute Neut 4.9 X10 3/uL Normal 2.0-7.7 [facility] Comment on above: Performed By: #### L 501.2300, L500.2500 #### [facility] [address] [place], [address] Basophils/100 WBC (Bld) 0.6 % Normal 0-1 [facility] Comment on above: Performed By: #### L 501.2300, L500.2500 #### [facility] [address] [place], [address] Eosinophils/100 WBC (Bld) 2.4 % Normal 0-5 [facility] Comment on above: Performed By: #### L 501.2300, L500.2500 #### [facility] [address] [place], [address] Erythrocyte distribution width (RBC) [Ratio] 14.0 % Normal 11.6-14.6 [facility] Comment on above: Performed By: #### L 501.2300, L500.2500 #### [facility] [address] [place], [address] Hematocrit (Bld) [Volume fraction] 38.7 % Low 40-54 [facility] Comment on above: Performed By: #### L 501.2300, L500.2500 #### [facility] [address] [place], [address] Hemoglobin (Bld) [Mass/Vol] 12.9 g/dL Low 13.0-16.5 [facility] Comment on above: Performed By: #### L 501.2300, L500.2500 #### [facility] [address] [place], [address] IG% 0.400 Normal 0.0-0.9 [facility] Comment on above: Result Comment: IG% - Immature Granulocytes (promyelocytes, myelocytes and metamyelocytes) > 1% indicates that a LEFT SHIFT is Present. Performed By: #### L 501.2300, L500.2500 #### [facility] [address] [place], [address] Lymphocytes/100 WBC (Bld) 24.1 % Normal 19-41 [facility] Comment on above: Performed By: #### L 501.2300, L500.2500 #### [facility] [address] [place], [address] MCH (RBC) [Entitic mass] 32.2 pg High 27.0-32.0 [facility] Comment on above: Performed By: #### L 501.2300, L500.2500 #### [facility] [address] [place], [address] MCHC (RBC) [Mass/Vol] 33.3 g/dL Normal 32-36 [facility] Comment on above: Performed By: #### L 501.2300, L500.2500 #### [facility] [address] [place], [address] MCV (RBC) [Entitic vol] 96.5 fL High 80-94 [facility] Comment on above: Performed By: #### L 501.2300, L500.2500 #### [facility] [address] [place], [address] Monocytes/100 WBC (Bld) 10.6 % High 0-10 [facility] Comment on above: Performed By: #### L 501.2300, L500.2500 #### [facility] [address] [place], [address] Neutrophils/100 WBC (Bld) 61.9 % Normal 47-70 [facility] Comment on above: Performed By: #### L 501.2300, L500.2500 #### [facility] [address] [place], [address] Nucleated RBC (Bld) [#/Vol] 0 10*3/uL Normal 0-5 [facility] Comment on above: Performed By: #### L 501.2300, L500.2500 #### [facility] [address] [place], [address] Platelet mean volume (Bld) [Entitic vol] 9.4 fL Normal 6.2-12.0 [facility] Comment on above: Performed By: #### L 501.2300, L500.2500 #### [facility] [address] [place], [address] Platelets (Bld) [#/Vol] 181 10*3/uL Normal 150-450 [facility] Comment on above: Performed By: #### L 501.2300, L500.2500 #### [facility] [address] [place], [address] RBC (Bld) [#/Vol] 4.01 10*6/uL Low 4.6-6.2 [facility] Comment on above: Performed By: #### L 501.2300, L500.2500 #### [facility] [address] [place], [address] RDW SD 49.6 fl High 35.1-43.9 [facility] Comment on above: Performed By: #### L 501.2300, L500.2500 #### [facility] [address] [place], [address] WBC (Bld) [#/Vol] 7.9 10*3/uL Normal 4.4-11.0 [facility] Comment on above: Performed By: #### L 501.2300, L500.2500 #### [facility] [address] [place], [address] Carbon dioxide, total [Moles /volume] in Central venous bloodOrdered By: Riky Li on 11-10-2024 CO2 [Moles/Vol] 24.1 mmol/L 21.0-32.0 [facility] Chloride assayOrdered By: Moses Li on 11-10-2024 Chloride [Moles/Vol] 105 mmol/L 98-108 [facility] Discharge Instructionon 10-17 Discharge Instruction [facility] Medical Records Department [address] [place] [address] Instructions for Home/Discharge Instructions 11/10/24 0940 MR#: [id number] Acct: [id number] Name: PACO WHITNEY Rep #: [id number] : [id number] 89 From: Riky Li MD [...] me in clinic in 3 days at [facility] on 13 November 2024, Discharge Orders/Prescriptions [...] Staff] - (Follow-up in 3 days at [facility] in clinic) Disposition Disposition (needs filled in before D/C Order can be placed): Home, Self Care 11/10/24 5486 Riky Li MD CC: Dr. Evelyn Doss DO; Dr. Clarice Murillo MD Signed Normal [facility] Eosinophil percentageOrdered By: Riky Li on 11-10-2024 Eosinophils/100 WBC (Bld) 2.4 % 0-5 [facility] Erythrocyte distribution wid th (RBC) [Ratio]Ordered By: Riky Li on 11-10-2024 Erythrocyte distribution width (RBC) [Entitic vol] 49.6 fL High 35.1-43.9 [facility] Erythrocyte distribution wid th ratioOrdered By: Riky Li on 11-10-2024 Erythrocyte distribution width (RBC) [Ratio] 14.0 % 11.6-14.6 [facility] Estimation of creatinine alan aranceOrdered By: Riky Li on 11-10-2024 Estimated Creatinine Clearance Calc 48.56 ml/min Low 50-250 [facility] GFR/1.73 sq M.predicted mauro g non-blacks MDRD (S/P/Bld) [Vol rate/Area]Ordered By: Riky Li on 11-10-2024 Estimated GFR (MDRD) Non-Af Amer 59 Low >60 [facility] Comment on above: mL/min/1.73m2 CKD-EP I Creatinine Equation (2020) Hematocrit Auto (Bld) [Volum e fraction]Ordered By: Riky Li on 11-10-2024 Hematocrit (Bld) [Volume fraction] 38.7 % Low 40-54 [facility] Hemoglobin measurementOrdere d By: Riky Li on 11-10-2024 Hemoglobin (Bld) [Mass/Vol] 12.9 g/dL Low 13.0-16.5 [facility] Immature granulocytes/100 WB C Auto (Bld)Ordered By: Riky Li on 11-10-2024 Immature granulocytes/100 WBC (Bld) 0.400 % 0.0-0.9 [facility] Comment on above: IG% - Immature Granu locytes (promyelocytes, myelocytes and metamyelocytes) > 1% indicates that a LEFT SHIFT is Present. Lymphocytes Auto (Unsp spec) [#/Vol]Ordered By: Riky Li on 11-10-2024 Lymphocytes (Bld) [#/Vol] 1.91 10*3/uL 0.83-4.51 [facility] Lymphocytes/100 WBC Auto (Un sp spec)Ordered By: Riky Li on 11-10-2024 Lymphocytes/100 WBC (Bld) 24.1 % 19-41 [facility] MCV (mean corpuscular volume ) determinationOrdered By: Riky Li on 11-10-2024 MCV (RBC) [Entitic vol] 96.5 fL High 80-94 [facility] Mean corpuscular hemoglobin (MCH) determinationOrdered By: Riky Li on 11-10-2024 MCH (RBC) [Entitic mass] 32.2 pg High 27.0-32.0 [facility] Mean corpuscular hemoglobin concentration (MCHC) determinationOrdered By: Riky Li on 11-10-2024 MCHC (RBC) [Mass/Vol] 33.3 g/dL 32-36 [facility] Mean platelet volume determi nationOrdered By: Riky Li on 11-10-2024 Platelet mean volume (Bld) [Entitic vol] 9.4 fL 6.2-12.0 [facility] Monocyte percentageOrdered B y: Riky Li on 11-10-2024 Monocytes/100 WBC (Bld) 10.6 % High 0-10 [facility] Neutrophil percentageOrdered By: Riky Li on 11-10-2024 Neutrophils/100 WBC (Bld) 61.9 % 47-70 [facility] Nucleated red blood cell per centageOrdered By: Riky Li on 11-10-2024 Nucleated RBC/100 WBC (Bld) [Ratio] 0 % 0-5 [facility] Phosphoruson 11-10-2024 Phosphate [Mass/Vol] 3.3 mg/dL Normal 2.7-4.5 [facility] Comment on above: Performed By: #### L 501.2300, L500.2500 #### [facility] [address] [place], [address] Platelet countOrdered By: Moses Li on 11-10-2024 Platelets (Bld) [#/Vol] 181 10*3/uL 150-450 [facility] Potassium (Unsp spec) [Mass/ Vol]Ordered By: Riky Li on 11-10-2024 Potassium [Moles/Vol] 4.3 mmol/L 3.3-5.1 [facility] RBC Auto (Bld) [#/Vol]Ordere d By: Riky Li on 11-10-2024 RBC (Bld) [#/Vol] 4.01 10*6/uL Low 4.6-6.2 [facility] Serum creatinine measurement (mass/volume)Ordered By: Riky Li on 11-10-2024 Creatinine [Mass/Vol] 1.19 mg/dL 0.70-1.20 [facility] Serum glucose measurement (m ass/volume)Ordered By: Riky Li on 11-10-2024 Glucose [Mass/Vol] 101 mg/dL High 70-99 [facility] Serum or plasma calcium saige urement (mass/volume)Ordered By: Riky Li on 11-10-2024 Calcium [Mass/Vol] 9.1 mg/dL 7.6-11.0 [facility] Serum or plasma urea nitroge n measurement (mass/volume)Ordered By: Riky Li on 11-10-2024 Urea nitrogen [Mass/Vol] 23 mg/dL High 4-19 [facility] Serum phosphorus measurement Ordered By: Evelyn Mccall on 11-10-2024 Phosphorus Level 3.3 mg/dL 2.7-4.5 [facility] Sodium levelOrdered By: Mike Li on 11-10-2024 Sodium [Moles/Vol] 137 mmol/L 133-145 [facility] White blood cell (WBC) count Ordered By: Riky Li on 11-10-2024 WBC (Bld) [#/Vol] 7.9 10*3/uL 4.4-11.0 [facility] Bilirubin, totalOrdered By: Evelyn Mccall on 11-09-2024 Bilirubin [Mass/Vol] 0.71 mg/dL 0.00-1.30 [facility] CBC W/Diff, Automatedon 10-17 Absolute Lymph 1.82 X10 3/uL Normal 0.83-4.51 [facility] Comment on above: Performed By: #### L 501.2300, L500.4050, L100.0100, L500.4100 #### [facility] [address] [place], [address] Absolute Neut 5.8 X10 3/uL Normal 2.0-7.7 [facility] Comment on above: Performed By: #### L 501.2300, L500.4050, L100.0100, L500.4100 #### [facility] [address] [place], [address] Basophils/100 WBC (Bld) 0.6 % Normal 0-1 [facility] Comment on above: Performed By: #### L 501.2300, L500.4050, L100.0100, L500.4100 #### [facility] [address] [place], [address] Eosinophils/100 WBC (Bld) 2.2 % Normal 0-5 [facility] Comment on above: Performed By: #### L 501.2300, L500.4050, L100.0100, L500.4100 #### [facility] [address] [place], [address] Erythrocyte distribution width (RBC) [Ratio] 13.9 % Normal 11.6-14.6 [facility] Comment on above: Performed By: #### L 501.2300, L500.4050, L100.0100, L500.4100 #### [facility] [address] [place], [address] Hematocrit (Bld) [Volume fraction] 39.5 % Low 40-54 [facility] Comment on above: Performed By: #### L 501.2300, L500.4050, L100.0100, L500.4100 #### [facility] [address] [place], [address] Hemoglobin (Bld) [Mass/Vol] 13.2 g/dL Normal 13.0-16.5 [facility] Comment on above: Performed By: #### L 501.2300, L500.4050, L100.0100, L500.4100 #### [facility] [address] [place], [address] IG% 0.300 Normal 0.0-0.9 [facility] Comment on above: Result Comment: IG% - Immature Granulocytes (promyelocytes, myelocytes and metamyelocytes) > 1% indicates that a LEFT SHIFT is Present. Performed By: #### L 501.2300, L500.4050, L100.0100, L500.4100 #### [facility] [address] [place], [address] Lymphocytes/100 WBC (Bld) 20.8 % Normal 19-41 [facility] Comment on above: Performed By: #### L 501.2300, L500.4050, L100.0100, L500.4100 #### [facility] [address] [place], [address] MCH (RBC) [Entitic mass] 32.3 pg High 27.0-32.0 [facility] Comment on above: Performed By: #### L 501.2300, L500.4050, L100.0100, L500.4100 #### [facility] [address] [place], [address] MCHC (RBC) [Mass/Vol] 33.4 g/dL Normal 32-36 [facility] Comment on above: Performed By: #### L 501.2300, L500.4050, L100.0100, L500.4100 #### [facility] [address] [place], [address] MCV (RBC) [Entitic vol] 96.6 fL High 80-94 [facility] Comment on above: Performed By: #### L 501.2300, L500.4050, L100.0100, L500.4100 #### [facility] [address] [place], [address] Monocytes/100 WBC (Bld) 9.7 % Normal 0-10 [facility] Comment on above: Performed By: #### L 501.2300, L500.4050, L100.0100, L500.4100 #### [facility] [address] [place], [address] Neutrophils/100 WBC (Bld) 66.4 % Normal 47-70 [facility] Comment on above: Performed By: #### L 501.2300, L500.4050, L100.0100, L500.4100 #### [facility] [address] [place], [address] Nucleated RBC (Bld) [#/Vol] 0 10*3/uL Normal 0-5 [facility] Comment on above: Performed By: #### L 501.2300, L500.4050, L100.0100, L500.4100 #### [facility] [address] [place], [address] Platelet mean volume (Bld) [Entitic vol] 9.8 fL Normal 6.2-12.0 [facility] Comment on above: Performed By: #### L 501.2300, L500.4050, L100.0100, L500.4100 #### [facility] [address] [place], [address] Platelets (Bld) [#/Vol] 196 10*3/uL Normal 150-450 [facility] Comment on above: Performed By: #### L 501.2300, L500.4050, L100.0100, L500.4100 #### [facility] [address] [place], [address] RBC (Bld) [#/Vol] 4.09 10*6/uL Low 4.6-6.2 [facility] Comment on above: Performed By: #### L 501.2300, L500.4050, L100.0100, L500.4100 #### [facility] [address] [place], [address] RDW SD 49.5 fl High 35.1-43.9 [facility] Comment on above: Performed By: #### L 501.2300, L500.4050, L100.0100, L500.4100 #### [facility] [address] [place], [address] WBC (Bld) [#/Vol] 8.8 10*3/uL Normal 4.4-11.0 [facility] Comment on above: Performed By: #### L 501.2300, L500.4050, L100.0100, L500.4100 #### [facility] [address] [place], [address] Calculated very low density lipoprotein (VLDL) cholesterol measurementOrdered By: Evelyn Mccall on 11-09-2024 VLDL Cholesterol 31 mg/dL 5-40 [facility] Comprehensive Metabolic Prof ilon 11-09-2024 Albumin [Mass/Vol] 3.2 g/dL Low 3.4-4.8 [facility] Comment on above: Performed By: #### L 501.2300, L500.4050, L100.0100, L500.4100 #### [facility] [address] [place], [address] Albumin/Globulin [Mass ratio] 1.5 {ratio} Normal 0.9-2.4 [facility] Comment on above: Performed By: #### L 501.2300, L500.4050, L100.0100, L500.4100 #### [facility] [address] [place], [address] ALK PHOS 60 U/L Normal 40-129 [facility] Comment on above: Performed By: #### L 501.2300, L500.4050, L100.0100, L500.4100 #### [facility] [facility] [address] [place], [address] ALT [Catalytic activity/Vol] 22 U/L Normal <=46 [facility] Comment on above: Performed By: #### L 501.2300, L500.4050, L100.0100, L500.4100 #### [facility] [address] [place], [address] AST [Catalytic activity/Vol] 24 U/L Normal <=37 [facility] Comment on above: Performed By: #### L 501.2300, L500.4050, L100.0100, L500.4100 #### [facility] [address] [place], [address] Bilirubin [Mass/Vol] 0.71 mg/dL Normal 0.00-1.30 [facility] Comment on above: Performed By: #### L 501.2300, L500.4050, L100.0100, L500.4100 #### [facility] [address] [place], [address] BUN/CRE 26.9 RATIO High 10-20 [facility] Comment on above: Performed By: #### L 501.2300, L500.4050, L100.0100, L500.4100 #### [facility] [address] [place], [address] Calcium [Mass/Vol] 8.8 mg/dL Normal 7.6-11.0 [facility] Comment on above: Performed By: #### L 501.2300, L500.4050, L100.0100, L500.4100 #### [facility] [address] [place], [address] Chloride [Moles/Vol] 107 mmol/L Normal 98-108 [facility] Comment on above: Performed By: #### L 501.2300, L500.4050, L100.0100, L500.4100 #### [facility] [address] [place], [address] CO2 [Moles/Vol] 23.1 mmol/L Normal 21.0-32.0 [facility] Comment on above: Performed By: #### L 501.2300, L500.4050, L100.0100, L500.4100 #### [facility] [address] [place], [address] Creatinine [Mass/Vol] 1.17 mg/dL Normal 0.70-1.20 [facility] Comment on above: Performed By: #### L 501.2300, L500.4050, L100.0100, L500.4100 #### [facility] [address] [place], [address] ECRCL 49.39 ml/min Low 50-250 [facility] Comment on above: Performed By: #### L 501.2300, L500.4050, L100.0100, L500.4100 #### [facility] [address] [place], [address] GAP 10 Normal 5-15 [facility] Comment on above: Performed By: #### L 501.2300, L500.4050, L100.0100, L500.4100 #### [facility] [address] [place], [address] GFR/1.73 sq M.predicted among non-blacks MDRD (S/P/Bld) [Vol rate/Area] 60 mL/min/{1.73_m2} Normal >60 [facility] Comment on above: Result Comment: mL/m in/1.73m2 CKD-EPI Creatinine Equation (2020) Performed By: #### L 501.2300, L500.4050, L100.0100, L500.4100 #### [facility] [address] [place], [address] Globulin (S) [Mass/Vol] 2.1 g/dL Low 2.2-4.2 [facility] Comment on above: Performed By: #### L 501.2300, L500.4050, L100.0100, L500.4100 #### [facility] [address] [place], [address] Glucose [Mass/Vol] 88 mg/dL Normal 70-99 [facility] Comment on above: Performed By: #### L 501.2300, L500.4050, L100.0100, L500.4100 #### [facility] [address] [place], [address] Potassium [Moles/Vol] 4.1 mmol/L Normal 3.3-5.1 [facility] Comment on above: Performed By: #### L 501.2300, L500.4050, L100.0100, L500.4100 #### [facility] [address] [place], [address] Sodium [Moles/Vol] 140 mmol/L Normal 133-145 [facility] Comment on above: Performed By: #### L 501.2300, L500.4050, L100.0100, L500.4100 #### [facility] [address] [place], [address] T PROT 5.3 g/dL Low 5.9-8.4 [facility] Comment on above: Performed By: #### L 501.2300, L500.4050, L100.0100, L500.4100 #### [facility] [address] [place], [address] Urea nitrogen [Mass/Vol] 32 mg/dL High 4-19 [facility] Comment on above: Performed By: #### L 501.2300, L500.4050, L100.0100, L500.4100 #### [facility] [address] [place], [address] Gram Stainon 11-09-2024 GS Left wrist aspirate Centrifuged Specimen? Culture performed on centrifuged specimen Gram Stain 4+ Red Blood Cells Rare White Blood Cells No organisms seen Normal [facility] Comment on above: Performed By: #### L 501.2300, L500.4050, L100.0100, L500.4100 #### [facility] [address] [place], [address] LDL calc ser/plasOrdered By: Evelyn Mccall on 11-09-2024 LDL Cholesterol, Calculated 43 mg/dL [facility] Comment on above: Deyfxgopla=958-484 m g/dL & Higher Impe=840 mg/dL or greater Laboratory - Chemistry and C hemistry - challengeOrdered By: Evelyn Mccall on 11-09-2024 AST [Catalytic activity/Vol] 24 U/L <38 [facility] Lipid Profileon 11-09-2024 CHOL:HDL 3.52 Normal [facility] Comment on above: Performed By: #### L 501.2300, L500.4050, L100.0100, L500.4100 #### [facility] [address] [place], [address] Cholesterol [Mass/Vol] 103 mg/dL Normal <=200 [facility] Comment on above: Result Comment: Chol esterol level, Desirable <200 mg/dL Borderline high cholesterol 200-239 mg/dL High cholesterol >=240 mg/dL Recommendations of the NCEP Adult Treatment Panel for the following risk-cutoff thresholds for the [place] population. Performed By: #### L 501.2300, L500.4050, L100.0100, L500.4100 #### [facility] [address] [place], [address] Cholesterol in HDL [Mass/Vol] 29 mg/dL Low [facility] Comment on above: Result Comment: Maribell onjseus Cholesterol Education Program (NCEP) guidelines: <40 mg/dL: Low HDL-cholesterol (major risk factor for CHD) >= 60 mg/dL: High HDL-cholesterol (negative risk factor for CHD) HDL-cholesterol is affected by a number of factors, e.g. smoking, exercise, hormones, sex and age. Performed By: #### L 501.2300, L500.4050, L100.0100, L500.4100 #### [facility] [address] [place], [address] Cholesterol in LDL [Mass/Vol] 43 mg/dL Normal [facility] Comment on above: Result Comment: Bord mtxfdd=809-429 mg/dL Higher Nanl=692 mg/dL or greater Performed By: #### L 501.2300, L500.4050, L100.0100, L500.4100 #### [facility] [address] [place], [address] Cholesterol in VLDL [Mass/Vol] 31 mg/dL Normal 5-40 [facility] Comment on above: Performed By: #### L 501.2300, L500.4050, L100.0100, L500.4100 #### [facility] [address] [place], [address] Triglyceride [Mass/Vol] 155 mg/dL Normal [facility] Comment on above: Result Comment: The drugs N-Acetylcysteine and Metamizole may falsely depress this assay. Normal range: <150 mg/dL Borderline High: 150-199 mg/dL High: 200-499 mg/dL Very High: >500 mg/dL Performed By: #### L 501.2300, L500.4050, L100.0100, L500.4100 #### [facility] [address] [place], [address] Phosphoruson 11-09-2024 Phosphate [Mass/Vol] 3.6 mg/dL Normal 2.7-4.5 [facility] Comment on above: Performed By: #### L 501.2300, L500.4050, L100.0100, L500.4100 #### [facility] [place], [address] Screening total cholesterol/ high density lipoprotein (HDL) cholesterol ratioOrdered By: Evelyn Mccall on 11-09-2024 Cholesterol.total/Chol esterol in HDL [Mass ratio] 3.52 {ratio} [facility] Serum globulin measurementOr dered By: Evelyn Mccall on 11-09-2024 Globulin (S) [Mass/Vol] 2.1 g/dL Low 2.2-4.2 [facility] Serum or plasma alanine hopkins otransferase (ALT) measurementOrdered By: Evelyn Mccall on 11-09-2024 ALT [Catalytic activity/Vol] 22 U/L <47 [facility] Serum or plasma albumin saige urement (mass/volume)Ordered By: Evelyn Mccall on 11-09-2024 Albumin [Mass/Vol] 3.2 g/dL Low 3.4-4.8 [facility] Serum or plasma albumin/glob ulin mass ratioOrdered By: Evelyn Mccall on 11-09-2024 Albumin/Globulin [Mass ratio] 1.5 {ratio} 0.9-2.4 [facility] Serum or plasma alkaline jaki sphatase measurementOrdered By: Evelyn Mccall on 11-09-2024 ALP [Catalytic activity/Vol] 60 U/L 40-129 [facility] Serum or plasma cholesterol in HDL measurement (mass/volume)Ordered By: Evelyn Mccall on 11-09-2024 Cholesterol in HDL [Mass/Vol] 29 mg/dL Low >40 [facility] Comment on above: National Cholesterol Education Program (NCEP) guidelines:<40 mg/dL: Low HDL-cholesterol (major risk factor for CHD)>= 60 mg/dL: High HDL-cholesterol (negative risk factor for CHD)HDL-cholesterol is affected by a number of factors, e.g. smoking, exercise, hormones, sex and age. Serum or plasma cholesterol measurement (mass/volume)Ordered By: Evelyn Mccall on 11-09-2024 Cholesterol [Mass/Vol] 103 mg/dL <201 [facility] Comment on above: Cholesterol level, D esirable <200 mg/dLBorderline high cholesterol 200-239 mg/dLHigh cholesterol >=240 mg/dLRecommendations of the NCEP Adult Treatment Panel for the following risk-cutoff thresholds for the [place] population. Total proteinOrdered By: Willem Mccall on 11-09-2024 Protein [Mass/Vol] 5.3 g/dL Low 5.9-8.4 [facility] Triglycerides measurementOrd ered By: Evelyn Mccall on 11-09-2024 Triglyceride [Mass/Vol] 155 mg/dL <199 [facility] Comment on above: The drugs N-Acetylcy steine and Metamizole may falsely depress this assay. Normal range: <150 mg/dLBorderline High: 150-199 mg/dLHigh: 200-499 mg/dLVery High: >500 mg/dL Appearance (Syn fld)Ordered By: Dennis Rocha on 11-08-2024 Synovial Fluid Appearance Opaque CLEAR [facility] Basic Metabolic Profile (BMP )on 11-08-2024 BUN/CRE 29.3 RATIO High 10-20 [facility] Comment on above: Performed By: #### L 500.2500, L501.6710, L501.1400, L100.0100, L101.9900 #### [facility] [address] [place], [address] Calcium [Mass/Vol] 9.5 mg/dL Normal 7.6-11.0 [facility] Comment on above: Performed By: #### L 500.2500, L501.6710, L501.1400, L100.0100, L101.9900 #### [facility] [address] [place], [address] Chloride [Moles/Vol] 108 mmol/L Normal 98-108 [facility] Comment on above: Performed By: #### L 500.2500, L501.6710, L501.1400, L100.0100, L101.9900 #### [facility] [address] [place], [address] CO2 [Moles/Vol] 22.8 mmol/L Normal 21.0-32.0 [facility] Comment on above: Performed By: #### L 500.2500, L501.6710, L501.1400, L100.0100, L101.9900 #### [facility] [address] [place], [address] Creatinine [Mass/Vol] 1.26 mg/dL High 0.70-1.20 [facility] Comment on above: Performed By: #### L 500.2500, L501.6710, L501.1400, L100.0100, L101.9900 #### [facility] [address] [place], [address] ECRCL 45.77 ml/min Low 50-250 [facility] Comment on above: Performed By: #### L 500.2500, L501.6710, L501.1400, L100.0100, L101.9900 #### [facility] [address] [place], [address] GAP 10 Normal 5-15 [facility] Comment on above: Performed By: #### L 500.2500, L501.6710, L501.1400, L100.0100, L101.9900 #### [facility] [address] [place], [address] GFR/1.73 sq M.predicted among non-blacks MDRD (S/P/Bld) [Vol rate/Area] 55 mL/min/{1.73_m2} Low >60 [facility] Comment on above: Result Comment: mL/m in/1.73m2 CKD-EPI Creatinine Equation (2020) Performed By: #### L 500.2500, L501.6710, L501.1400, L100.0100, L101.9900 #### [facility] [address] [place], [address] Glucose [Mass/Vol] 116 mg/dL High 70-99 [facility] Comment on above: Performed By: #### L 500.2500, L501.6710, L501.1400, L100.0100, L101.9900 #### [facility] [address] [place], [address] Potassium [Moles/Vol] 4.6 mmol/L Normal 3.3-5.1 [facility] Comment on above: Performed By: #### L 500.2500, L501.6710, L501.1400, L100.0100, L101.9900 #### [facility] [address] [place], [address] Sodium [Moles/Vol] 141 mmol/L Normal 133-145 [facility] Comment on above: Performed By: #### L 500.2500, L501.6710, L501.1400, L100.0100, L101.9900 #### [facility] [address] [place], [address] Urea nitrogen [Mass/Vol] 37 mg/dL High 4-19 [facility] Comment on above: Performed By: #### L 500.2500, L501.6710, L501.1400, L100.0100, L101.9900 #### [facility] [address] [place], [address] CBC W/Diff, Automatedon 04-2 Absolute Lymph 1.96 X10 3/uL Normal 0.83-4.51 [facility] Comment on above: Performed By: #### L 500.2500, L501.6710, L501.1400, L100.0100, L101.9900 #### [facility] [address] [place], [address] Absolute Neut 6.9 X10 3/uL Normal 2.0-7.7 [facility] Comment on above: Performed By: #### L 500.2500, L501.6710, L501.1400, L100.0100, L101.9900 #### [facility] [address] [place], [address] Basophils/100 WBC (Bld) 0.6 % Normal 0-1 [facility] Comment on above: Performed By: #### L 500.2500, L501.6710, L501.1400, L100.0100, L101.9900 #### [facility] [address] [place], [address] Eosinophils/100 WBC (Bld) 1.8 % Normal 0-5 [facility] Comment on above: Performed By: #### L 500.2500, L501.6710, L501.1400, L100.0100, L101.9900 #### [facility] [address] [place], [address] Erythrocyte distribution width (RBC) [Ratio] 13.9 % Normal 11.6-14.6 [facility] Comment on above: Performed By: #### L 500.2500, L501.6710, L501.1400, L100.0100, L101.9900 #### [facility] [address] [place], [address] Hematocrit (Bld) [Volume fraction] 43.0 % Normal 40-54 [facility] Comment on above: Performed By: #### L 500.2500, L501.6710, L501.1400, L100.0100, L101.9900 #### [facility] [address] [place], [address] Hemoglobin (Bld) [Mass/Vol] 14.3 g/dL Normal 13.0-16.5 [facility] Comment on above: Performed By: #### L 500.2500, L501.6710, L501.1400, L100.0100, L101.9900 #### [facility] [address] [place], [address] IG% 0.400 Normal 0.0-0.9 [facility] Comment on above: Result Comment: IG% - Immature Granulocytes (promyelocytes, myelocytes and metamyelocytes) > 1% indicates that a LEFT SHIFT is Present. Performed By: #### L 500.2500, L501.6710, L501.1400, L100.0100, L101.9900 #### [facility] [address] [place], [address] Lymphocytes/100 WBC (Bld) 19.5 % Normal 19-41 [facility] Comment on above: Performed By: #### L 500.2500, L501.6710, L501.1400, L100.0100, L101.9900 #### [facility] [address] [place], [address] MCH (RBC) [Entitic mass] 31.7 pg Normal 27.0-32.0 [facility] Comment on above: Performed By: #### L 500.2500, L501.6710, L501.1400, L100.0100, L101.9900 #### [facility] [address] [place], [address] MCHC (RBC) [Mass/Vol] 33.3 g/dL Normal 32-36 [facility] Comment on above: Performed By: #### L 500.2500, L501.6710, L501.1400, L100.0100, L101.9900 #### [facility] [address] [place], [address] MCV (RBC) [Entitic vol] 95.3 fL High 80-94 [facility] Comment on above: Performed By: #### L 500.2500, L501.6710, L501.1400, L100.0100, L101.9900 #### [facility] [address] [place], [address] Monocytes/100 WBC (Bld) 9.4 % Normal 0-10 [facility] Comment on above: Performed By: #### L 500.2500, L501.6710, L501.1400, L100.0100, L101.9900 #### [facility] [address] [place], [address] Neutrophils/100 WBC (Bld) 68.3 % Normal 47-70 [facility] Comment on above: Performed By: #### L 500.2500, L501.6710, L501.1400, L100.0100, L101.9900 #### [facility] [address] [place], [address] Nucleated RBC (Bld) [#/Vol] 0 10*3/uL Normal 0-5 [facility] Comment on above: Performed By: #### L 500.2500, L501.6710, L501.1400, L100.0100, L101.9900 #### [facility] [address] [place], [address] Platelet mean volume (Bld) [Entitic vol] 9.8 fL Normal 6.2-12.0 [facility] Comment on above: Performed By: #### L 500.2500, L501.6710, L501.1400, L100.0100, L101.9900 #### [facility] [address] [place], [address] Platelets (Bld) [#/Vol] 233 10*3/uL Normal 150-450 [facility] Comment on above: Performed By: #### L 500.2500, L501.6710, L501.1400, L100.0100, L101.9900 #### [facility] [address] [place], [address] RBC (Bld) [#/Vol] 4.51 10*6/uL Low 4.6-6.2 [facility] Comment on above: Performed By: #### L 500.2500, L501.6710, L501.1400, L100.0100, L101.9900 #### [facility] [address] [place], [address] RDW SD 49.1 fl High 35.1-43.9 [facility] Comment on above: Performed By: #### L 500.2500, L501.6710, L501.1400, L100.0100, L101.9900 #### [facility] [address] [place], [address] WBC (Bld) [#/Vol] 10.0 10*3/uL Normal 4.4-11.0 [facility] Comment on above: Performed By: #### L 500.2500, L501.6710, L501.1400, L100.0100, L101.9900 #### [facility] [address] [place], [address] CNOVon 11-08-2024 [facility] Office Visit ([facility] ) PACO WHITNEY ([id number]) 1935 M Date Time Provider Department 11/08/24 5:30 PM VASYL WELSH [facility] During your visit today, we recorded the following information about you: Temperature Pulse Respiration Blood pressure 99.5 degrees 79/minute 22/minute 118/68 Weight 90 kg Vasyl Welsh MD 11/08/2024 6:31 PM Signed [facility] Subjective Paco Whitney is a [...] available. He will take himself to the [facility]. Vasyl Welsh MD History and Record Review [...] will be seeking further care outside the [facility] hospital system. Disposition The patient was other [...] 1 capsule by mouth once daily. - lcsjwudm-ceuecputu-nbxncemnr isone (CORTISPORIN) 3.5-10,000-1 mg/mL-unit/mL-% otic suspension Use 4 Drops in the ears four times daily. x 1 week - clotrimazole-betamethasone (LOTRISONE) cream Apply 1 application to affected area two times (more content not included)... Normal [facility] CRPon 11-08-2024 C-REACTIVE PROT 5.25 mg/L High 0.0-3.0 [facility] Comment on above: Performed By: #### L 501.2300, L500.2500 #### [facility] [address] [place], [address] CRP [Mass/Vol]Ordered By: Tiago Hartley on 11-08-2024 C-Reactive Protein Extended Range 5.25 mg/L High 0.0-3.0 [facility] Cells Counted Total (Syn fld ) [#]Ordered By: Dennis Rocha on 11-08-2024 Synovial Fluid Total Cells Counted 4.0010 10^3/uL High 0.000-0.00 0 [facility] Comment on above: This is the Total Nu mber of Nucleated Cell Types in the Body Fluid. Color (Syn fld)Ordered By: Josefina Rocha on 11-08-2024 Synovial Fluid Color RED Pale Yellow [facility] Consultation - Surgicalon Consultation - Surgical [facility] Medical Records Department [address] [place] [address] Consultation - Surgical 11/08/24 1853 MR#: [id number] Acct: [id number] Name: PACO WHITNEY Rep #: [id number] : 1935 89 From: Dennis Rocha MD PCP: Dr. Clarice Murillo MD Status:DIS IN Location: [place] [id number] 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 Normal [facility] Crystals LM Nom (Body fld)Or dered By: Dennis Rocha on 11-08-2024 Body Fluid Crystals NO CRYSTALS SEEN [facility] Comment on above: CRYSTAL RESULT IS PRELIMINARY. SEE PATH REVIEW FOR FINAL REPORT. Emergency Department Summary on 11-08-2024 Emergency Department Summary [facility] Medical Records Department [address] [place] [address] Emergency Department Summary 11/08/24 MR#: [id number] Acct: [id number] Name: PACO WHITNEY Rep #: [id number] : 1935 89 From: Eduardo Hartley DO PCP: Dr. Clarice Murillo MD Status:ADM IN Location: [place] [address] HPI History of Present Illness Chief Complaint: [...] Respiratory R (more content not included)... Normal [facility] Erythrocyte Sed Rateon 11-08 SED RATE < 1 Normal 0-20 [facility] Comment on above: Performed By: #### L 500.2500, L501.6710, L501.1400, L100.0100, L101.9900 #### [facility] [address] [place], [address] Erythrocyte sedimentation ra teOrdered By: Eduardo Hartley on 11-08-2024 ESR (Bld) [Velocity] mm/h 0-20 [facility] Gram stainOrdered By: Dennis Rocha on 11-08-2024 Microscopic observation Gram stain Nom (Unsp spec) [facility] H AND P Exam - Hospitaliston 11-08-2024 H&P Exam - Hospitalist [facility] Medical Records Department [address] [place] [address] H P Exam - Hospitalist 11/08/242000 MR#: [id number] Acct: [id number] Name: PACO WHITNEY Rep #: [id number] : 1935 89 From: Evelyn Doss DO PCP: Dr. Clarice Murillo MD Status:ADM IN Location: [place] [id number] HPI - General General Date of Admission: [...] his first MTP joint who presents to [facility] ER complaining of Left wrist redness, swelling, [...] to extend beyond 2 midnights. [facility] Medical History PAD (peripheral artery disease) Renal [...] Reaction Status (more content not included)... Normal [facility] Hand Min 3 Viewson Hand Min 3 Views [facility] Imaging Services [address] [place] [address] Hand Min 3 Views MR#: [id number] Acct: [id number] Name: PACO WHITNEY Rep #: [id number] : 1935 M 89 From: Dennis Lechuga PCP: Dr. Clarice Murillo MD Status: REG ER Study: Hand Min 3 Views Date of Exam: 11/08/24 Exam# [id number] Ordering Dr: Dennis Rocha MD PROCEDURE: HAND [...] Clarice Murillo MD; Dr. Dennis Rocha MD 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: Signed Normal [facility] Lymphocytes/100 WBC (Bld)Ord ered By: Dennis Rocha on 11-08-2024 Synovial Fluid Lymphocytes 40 % [facility] Magnesiumon 11-08-2024 Magnesium [Mass/Vol] 1.6 mg/dL Normal 1.5-2.2 [facility] Comment on above: Performed By: #### L 501.2300, L500.2500 #### [facility] [address] [place], [place], [address] Magnesium (Unsp spec) [Mass/ Vol]Ordered By: Evelyn Mccall on 11-08-2024 Magnesium [Mass/Vol] 1.6 mg/dL 1.5-2.2 [facility] Monocytes/100 WBC (Syn fld)O rdered By: Dennis Rocha on 11-08-2024 Synovial Fluid Monocytes 14 % [facility] Mononuclear cells Auto (Syn fld) [#/Vol]Ordered By: Dennis Rocha on 11-08-2024 Synovial Fluid Mononuclear WBCs 1.409 10^3/ul [facility] Mononuclear cells/100 WBC (S yn fld)Ordered By: Dennis Rocha on 11-08-2024 Synovial Fluid Mononuclear WBCs % 35.4 % [facility] Neutrophils/100 WBC (Syn fld )Ordered By: Dennis Rocha on 11-08-2024 Synovial Fluid Neutrophils 46 % High 0-25 [facility] Pathologist review Mitchell (Unsp spec) [Interp]Ordered By: Dennis Rocha on 11-08-2024 Synovial Fluid Pathologist Comment May follow [facility] Polymorphonuclear cells Auto (Syn fld) [#/Vol]Ordered By: Dennis Rocha on 11-08-2024 Synovial Fluid Polynuclear WBCs 2.572 10^3/uL [facility] Polymorphonuclear cells/100 WBC Auto (Syn fld)Ordered By: Dennis Rocha on 11-08-2024 Synovial Fluid Polynuclear WBCs % 64.6 % [facility] RBC (Syn fld) [#/Vol]Ordered By: Dennis Rocha on 11-08-2024 Synovial Fluid RBC 2.743 10^6/uL High 0-0 [facility] Serum or plasma uric acid me asurement (mass/volume)Ordered By: Eduardo Hartley on 11-08-2024 Urate [Mass/Vol] 4.5 mg/dL 3.5-7.2 [facility] Comment on above: The drugs N-Acetylcy steine and Metamizole may falsely depress this assay. Specimen source Nom (Body fl d)Ordered By: Dennis Rocha on 11-08-2024 Body Fluid Crystal Source SYNOVIAL [facility] Synovial Fluid Source LEFT WRIST ASPIRATE [facility] TSH DL <= 0.005 mIU/L QnOrde red By: Evelyn Mccall on 11-08-2024 Thyroid Stimulating Hormone (TSH) 2.530 uIU/mL 0.300-4.20 0 [facility] Thyroid Stim Hormone (TSH)on 11-08-2024 TSH 2.530 uIU/mL Normal 0.300-4.20 0 [facility] Comment on above: Performed By: #### L 501.2300, L500.2500 #### [facility] [address] [place], [address] Uric Acidon 11-08-2024 URIC 4.5 mg/dL Normal 3.5-7.2 [facility] Comment on above: Result Comment: The drugs N-Acetylcysteine and Metamizole may falsely depress this assay. Performed By: #### L 500.2500, L501.6710, L501.1400, L100.0100, L101.9900 #### [facility] [address] [place], [address] WBC Auto (Syn fld) [#/Vol]Or dered By: Dennis Rocha on 11-08-2024 Synovial Fluid WBC 3.9810 10^3/uL High 0.000-0 .00 2 [facility] Wrist min 3 Viewson 11-09-19 Wrist min 3 Views [facility] [address] [place] [address] Wrist min 3 Views MR#: [id number] Acct: [id number] Name: PACO WHITNEY Rep #: [id number] : 1935 M 89 From: Dennis Lechuga PCP: Dr. Clarice Murillo MD Status: [facility] ER Study: Wrist min 3 Views Date of Exam: 11/08/24 Exam# [id number] Ordering Dr: Eduardo Hartley DO EXAM: Left wrist radiographs CLINICAL HISTORY: Pain, swelling COMPARISON: None TECHNIQUE: Three views of the left wrist FINDINGS: See impression RAD/Wrist min 3 Views IMPRESSION: Negative for acute displaced fracture or dislocation. 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 Severe diffuse soft tissue swelling about the wrist. No cortical destruction. Osteopenia. Reading Location: [facility] CC: Dr. Clarice Murillo MD; Dr. Eduardo Hartley DO 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: Signed Normal [facility] CNOVon 11-03-2024 [facility] Office Visit (UCWSTR ) PACO WHITNEY ([id number]) 1935 M Date Time Provider Department 11/03/24 8:30 AM [facility] During your visit today, we recorded the following information about you: Temperature Pulse Respiration Blood pressure 97.8 degrees 68/minute 16/minute 132/72 Weight 91.1 kg Jyothi Mosley APRN.WARHEAD MAINTENANCE SPECIALIST 11/03/2024 9:08 AM Signed [facility] Subjective Paco Whitney is a [...] history is provided by the patient. No speech language pathologist travel was used. Review of Systems Constitutional: Negative [...] inhaler or nebulizer prn Follow up with quiller machine fixer as needed Diagnosis and treatment plan were discussed and questions were answered to the patient's satisfaction. Pt acknowledged understanding of concepts and follow up plan. Specific signs and symptoms that would indicate the need for higher level of (more content not included)... Normal [facility] COVID-19 MOLECULAR (POC)on 0 11-03-2024 Procedural Control Valid [facility] SARS-CoV-2 (COVID-19) RNA DEV+probe Ql (Unsp spec) Negative Negative [facility] Comment on above: Location:[facility], [address] [place] [address], [place], [place], [address] [place] [address] CNOVon 09-24-2024 CNOV Office Visit (PULMWS ) PACO WHITNEY ([id number]) 1935 M Date Time Provider Department 09/24/24 10:00 AM FRANCIA LUNA PULMWS During your visit today, we recorded the following information about you: Pulse Respiration Blood pressure Weight 74/minute 16/minute 118/73 90.2 kg Francia Luna MD 09/24/2024 7:37 PM Signed . Respiratory Medicine Bow Note Patient name: Paco Rocha Devonte PCP: [...] Take 1 capsule by mouth once daily. pqvklwcv-qalsdafar-vulcmpfis isone (CORTISPORIN) 3.5-10,000-1 mg/mL-unit/mL-% otic suspension Use [...] no thrush. (more content not included)... 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 tmyfwfum-oxmrgogem-rnirxpece isone (CORTISPORIN) 3.5-10,000-1 mg/mL-unit/mL-% otic suspension Use [...] by mo (more content not included)... Normal [facility] Comprehensive metabolic 2000 panelon 07-24-2024 Albumin [Mass/Vol] 4.2 g/dL Normal 3.9-4.9 [facility] Comment on above: Order Comment: Speci men Type: BLOOD SPECIMENOrdering Facility: [facility] Address: [address] [place] [address] Performed By: #### 2 4323-8, 67710-1 ####[facility] LABCLIA [id number] [place] [address] [place] ALP [Catalytic activity/Vol] 81 U/L Normal 38-113 [facility] Comment on above: Order Comment: Speci men Type: BLOOD SPECIMENOrdering Facility: [facility] Address: [address] [place] [address] Performed By: #### 2 4323-8, 65163-9 ####[facility] LABCLIA [id number] [place] [address] [place] ALT [Catalytic activity/Vol] 20 U/L Normal 10-54 [facility] Comment on above: Order Comment: Speci men Type: BLOOD SPECIMENOrdering Facility: [facility] Address: [address] [place] [address] Performed By: #### 2 4323-8, 61511-4 ####[facility] LABCLIA [id number] [place] [address] [place] Anion gap [Moles/Vol] 12 mmol/L Normal 8-15 [facility] Comment on above: Order Comment: Speci men Type: BLOOD SPECIMENOrdering Facility: [facility] Address: [address] [place] [address] Performed By: #### 2 4323-8, 54160-1 ####[facility] LABCLIA [id number] [place] [address] [place] AST [Catalytic activity/Vol] 26 U/L Normal 14-40 [facility] Comment on above: Order Comment: Speci men Type: BLOOD SPECIMENOrdering Facility: [facility] Address: [address] [place] [address] Performed By: #### 2 4323-8, 66864-3 ####[facility] LABCLIA [id number] [place] [address] [place] Bilirubin [Mass/Vol] 0.9 mg/dL Normal 0.2-1.3 [facility] Comment on above: Order Comment: Speci men Type: BLOOD SPECIMENOrdering Facility: [facility] Address: [address] [place] [address] Performed By: #### 2 4323-8, 74960-1 ####[facility] LABCLIA [id number] [place] [address] [place] Calcium [Mass/Vol] 10.2 mg/dL Normal 8.5-10.2 [facility] Comment on above: Order Comment: Speci men Type: BLOOD SPECIMENOrdering Facility: [facility] Address: [address] [place] [id number] Performed By: #### 2 4323-8, 59952-0 ####[facility] LABCLIA [id number] [place] [id number] [place] Chloride [Moles/Vol] 106 mmol/L Normal 98-107 [facility] Comment on above: Order Comment: Speci men Type: BLOOD SPECIMENOrdering Facility: [facility] Address: [address] [place] [address] Performed By: #### 2 4323-8, 98636-4 ####[facility] LABCLIA [id number] [place] [address] [place] CO2 [Moles/Vol] 25 mmol/L Normal 22-30 [facility] Comment on above: Order Comment: Speci men Type: BLOOD SPECIMENOrdering Facility: [facility] Address: [address] [place] [address] Performed By: #### 2 4323-8, 59617-5 ####[facility] LABCLIA [id number] [place] [address] [place] Creatinine [Mass/Vol] 1.00 mg/dL Normal 0.73-1.22 [facility] Comment on above: Order Comment: Speci men Type: BLOOD SPECIMENOrdering Facility: [facility] Address: [address] [place] [address] Performed By: #### 2 4323-8, 09194-0 ####[facility] LABCLIA [id number] [place] [address] [place] Creatinine and Glomerular filtration rate.predicted panel (S/P/Bld) 73 mL/min/1.73m??? Normal >=60 [facility] Comment on above: Order Comment: Speci men Type: BLOOD SPECIMENOrdering Facility: [facility] Address: [address] [place] [address] Result Comment: Toya mated Glomerular Filtration Rate [...] actual GFR. Performed By: #### 2 4323-8, 68738-8 ####[facility] LABIA [id number] [place] [address] [place] Glucose [Mass/Vol] 107 mg/dL High 74-99 [facility] Comment on above: Order Comment: Speci men Type: BLOOD SPECIMENOrdering Facility: [facility] Address: [address] [place] [address] Result Comment: The [place] Diabetes Association (ADA) provides guidance for cutoff [...] Standards of Medical Care in Diabetes 2016, [place] [employer]. Diabetes Care. 2016.39(Suppl 1). Performed By: #### 2 4323-8, 26805-7 ####[facility] LABIA [id number] [place] [id number] [place] Potassium [Moles/Vol] 4.5 mmol/L Normal 3.7-5.1 [facility] Comment on above: Order Comment: Specch[place] men Type: BLOOD SPECIMENOrdering Facility: [facility] Address: [address] [place] [address] Performed By: #### 2 4323-8, 43754-6 ####[facility] LABCLIA [id number] [place] [address] [place] Protein [Mass/Vol] 7.0 g/dL Normal 6.3-8.0 [facility] Comment on above: Order Comment: Speci men Type: BLOOD SPECIMENOrdering Facility: [facility] Address: [address] [place] [address] Performed By: #### 2 4323-8, 15965-2 ####[facility] LABCLIA [id number] [place] [address] [place] Sodium [Moles/Vol] 143 mmol/L Normal 136-144 [facility] Comment on above: Order Comment: Speci men Type: BLOOD SPECIMENOrdering Facility: [facility] Address: [address] [place] [address] Performed By: #### 2 4323-8, 64160-4 ####[facility] LABIA [id number] [place] [address] [place] Urea nitrogen [Mass/Vol] 27 mg/dL High 9-24 [facility] Comment on above: Order Comment: Speci men Type: BLOOD SPECIMENOrdering Facility: [facility] Address: [address] [place] [address] Performed By: #### 2 4323-8, 74090-2 ####[facility] LABCLIA [id number] [place] [address] [place] Lipid 1996 panelon 5 Cholesterol [Mass/Vol] 159 mg/dL Normal <200 [facility] Comment on above: Order Comment: Speci men Type: BLOOD SPECIMENOrdering Facility: [facility] Address: [address] [place] [address] Result Comment: <200 mg/dL, Desirable 200-239 mg/dL, Borderline high >239 mg/dL, High Performed By: #### 2 4323-8, 84091-1 ####[facility] LABCLIA [id number] [address] [place] Cholesterol in HDL [Mass/Vol] 33 mg/dL Low >39 [facility] Comment on above: Order Comment: Zach vinson Type: BLOOD SPECIMENOrdering Facility: [facility] Address: [address] [place] [address] Result Comment: 40-5 9 mg/dL, Acceptable >59 mg/dL, High: Negative risk factor for coronary heart disease <40 mg/dL, Low: Positive risk factor for coronary heart disease Performed By: #### 2 4323-8, 56782-9 ####[facility] LABCLIA [id number] [address] Cholesterol in LDL [Mass/Vol] 86 mg/dL Normal <100 [facility] Comment on above: Order Comment: [facility] Type: BLOOD SPECIMENOrdering Facility: [facility] Address: [address] [place] [address] Result Comment: <100 mg/dL, Optimal 100-129 mg/dL, Near optimal/above optimal 130-159 mg/dL, Borderline high 160-189 mg/dL, High >189 mg/dL, Very high Secondary prevention optimal LDL Cholesterol levels are recommended to be < 70 mg/dL Performed By: #### 2 4323-8, 70508-2 ####[facility] LABCLIA [id number] [address] OF [facility] Cholesterol in LDL/Cholesterol in HDL [Mass ratio] 2.61 {ratio} High <2.54 [facility] Comment on above: Order Comment: [facility] Type: BLOOD SPECIMENOrdering Facility: [facility] Address: [address] [place] [address] Result Comment: Arnoldo ross: 1. National Cholesterol Education Program ATP III Guideline At-A-Glance Quick Desk Reference: National Heart, Lung, and Blood Medicine Bow. National Institutes of Health. 2001: NIH Publication No. 01-3305. 2. An International Atherosclerosis Society position paper: global recommendations for the management of dyslipidemia: executive summary, Atherosclerosis. 2014: 232(2):410-413. Performed By: #### 2 4323-8, 29148-7 ####[facility] LABCLIA [id number] [place] [address] [place] Cholesterol in VLDL [Mass/Vol] 40 mg/dL High <30 [facility] Comment on above: Order Comment: Speci men Type: BLOOD SPECIMENOrdering Facility: [facility] Address: [address] [place] [address] Performed By: #### 2 4323-8, 18787-3 ####[facility] LABCLIA [id number] [place] [address] [place] Cholesterol non HDL [Mass/Vol] 126 mg/dL Normal <130 [facility] Comment on above: Order Comment: Speci men Type: BLOOD SPECIMENOrdering Facility: [facility] Address: [address] [place] [address] Result Comment: <130 mg/dL, Optimal 130-159 mg/dL, Near optimal/above optimal 160-189 mg/dL, Borderline high 190-219 mg/dL, High >219 mg/dL, Very high Secondary prevention optimal non HDL Cholesterol levels are recommended to be <100 mg/dL Performed By: #### 2 4323-8, 56483-7 ####[facility] LABCLIA [id number] [place] [address] [place] Cholesterol.total/Chol esterol in HDL [Mass ratio] 4.82 {ratio} Normal <5.10 [facility] Comment on above: Order Comment: Speci men Type: BLOOD SPECIMENOrdering Facility: [facility] Address: [address] [place] [address] Performed By: #### 2 4323-8, 46861-4 ####[facility] LABCLIA [id number] [place] [id number] [place] FASTING TIME 12 hrs Normal [facility] Comment on above: Order Comment: Speci men Type: BLOOD SPECIMENOrdering Facility: [facility] Address: [address] [place] [address] Performed By: #### 2 4323-8, 93115-8 ####[facility] LABCLIA [id number] [place] [address] [place] Triglyceride [Mass/Vol] 200 mg/dL High <150 [facility] Comment on above: Order Comment: Speci men Type: BLOOD SPECIMENOrdering Facility: [facility] Address: [address] [place] [address] Result Comment: <150 mg/dL, Normal 150-199 mg/dL, Borderline high 200-499 mg/dL, High >499 mg/dL, Very high Performed By: #### 2 4323-8, 64937-6 ####[facility] LABCLIA [id number] [place] [address] [place] CNOVon 03-21-2024 [facility] ([id number]) 1935 M Date Time Provider Department 03/21/24 1:40 PM [facility] During your visit today, we recorded [...] W/COLLJ SPEC WHEN PFRMD Comment: [facility] 01/2013: ENDOVASCULAR ANEURYSM REPAIR Comment: with [...] on empty stomach, 1/2 hr before meal. wzhlhslr-seggstnub-aefseshgy isone (CORTISPORIN) 3.5-10,000-1 mg/mL-unit/mL-% otic suspension Use [...] HISTORY Pro (more content not included)... Normal [facility] Ortiz 03-14-2024 [facility] Tele[facility] ([facility]) PACO WHITNEY ([id number]) 1935 M Date Time Provider Department 03/14/24 KARLA CAMPUZANO During your visit today, we recorded the following information about you: Karla Campuzano APRN.WARHEAD MAINTENANCE SPECIALIST 03/14/2024 12:27 PM Signed Can you please [...] empty stomach, 1/2 hr before meal. - rbinxkwy-euwsbgvyd-afttzugfe isone (CORTISPORIN) 3.5-10,000-1 mg/mL-unit/mL-% otic suspension Use [...] Status:Closed by JHOAN SIEGEL on 03/14/24 Normal [facility] Comprehensive metabolic 2000 panelon 03-07-2024 Albumin [Mass/Vol] 4.0 g/dL Normal 3.9-4.9 [facility] Comment on above: Order Comment: Speci men Type: BLOOD SPECIMENOrdering Facility: [facility] Address: [address] [place] [address] Performed By: #### 2 3353-8, 25092-9 ####[facility] LABCLIA [id number] [place] [address] [place] ALP [Catalytic activity/Vol] 74 U/L Normal 38-113 [facility] Comment on above: Order Comment: Speci men Type: BLOOD SPECIMENOrdering Facility: [facility] Address: [address] [place] [address] Performed By: #### 2 4323-8, 08547-6 ####[facility] LABCLIA [id number] [address] [address] [place] ALT [Catalytic activity/Vol] 20 U/L Normal 10-54 [facility] Comment on above: Order Comment: Speci men Type: BLOOD SPECIMENOrdering Facility: [facility] Address: [address] [place] [address] Performed By: #### 2 4323-8, 62599-4 ####[facility] LABCLIA [id number] [place] [address] [place] Anion gap [Moles/Vol] 11 mmol/L Normal 8-15 [facility] Comment on above: Order Comment: Speci men Type: BLOOD SPECIMENOrdering Facility: [facility] Address: [address] [place] [address] Performed By: #### 2 4323-8, 95316-4 ####[facility] LABCLIA [id number] [place] [address] [place] AST [Catalytic activity/Vol] 28 U/L Normal 14-40 [facility] Comment on above: Order Comment: Speci men Type: BLOOD SPECIMENOrdering Facility: [facility] Address: [address] [place] [address] Performed By: #### 2 4323-8, 97699-6 ####[facility] LABCLIA [id number] [place] [address] [place] Bilirubin [Mass/Vol] 0.9 mg/dL Normal 0.2-1.3 [facility] Comment on above: Order Comment: Speci men Type: BLOOD SPECIMENOrdering Facility: [facility] Address: [address] [place] [address] Performed By: #### 2 4323-8, 38854-7 ####[facility] LABCLIA [id number] [place] [address] [place] Calcium [Mass/Vol] 9.8 mg/dL Normal 8.5-10.2 [facility] Comment on above: Order Comment: Speci men Type: BLOOD SPECIMENOrdering Facility: [facility] Address: [address] [id number] Performed By: #### 2 4323-8, 04876-6 ####[facility] LABCLIA [id number] [place] [address] [place] Chloride [Moles/Vol] 105 mmol/L Normal 98-107 [facility] Comment on above: Order Comment: Speci men Type: BLOOD SPECIMENOrdering Facility: [facility] Address: [address] [place] [address] Performed By: #### 2 4323-8, 18284-4 ####[facility] LABCLIA [id number] [place] [address] [place] CO2 [Moles/Vol] 24 mmol/L Normal 22-30 [facility] Comment on above: Order Comment: Speci men Type: BLOOD SPECIMENOrdering Facility: [facility] Address: [address] [place] [address] Performed By: #### 2 4323-8, 30583-9 ####[facility] LABCLIA [id number] [place] [address] [place] Creatinine [Mass/Vol] 1.06 mg/dL Normal 0.73-1.22 [facility] Comment on above: Order Comment: Speci men Type: BLOOD SPECIMENOrdering Facility: [facility] Address: [address] [place] [address] Performed By: #### 2 4323-8, 61367-8 ####[facility] LABCLIA [id number] [place] [address] [place] Creatinine and Glomerular filtration rate.predicted panel (S/P/Bld) 68 mL/min/1.73m??? Normal >=60 [facility] Comment on above: Order Comment: Speci men Type: BLOOD SPECIMENOrdering Facility: [facility] Address: [address] [place] [address] Result Comment: Toya mated Glomerular Filtration Rate [...] actual GFR. Performed By: #### 2 4323-8, 84000-0 ####[facility] [id number] [place] [address] [place] Glucose [Mass/Vol] 81 mg/dL Normal 74-99 [facility] Comment on above: Order Comment: Zach vinson Type: BLOOD SPECIMENOrdering Facility: [facility] Address: [address] [place] [address] Result Comment: The [place] Diabetes Association (ADA) provides guidance for cutoff [...] Standards of Medical Care in Diabetes 2016, [place] Diabetes Association. Diabetes Care. 2016.39(Suppl 1). Performed By: #### 2 4323-8, 09653-6 ####[facility] [id number] [place] [id number] [place] Potassium [Moles/Vol] 4.7 mmol/L Normal 3.7-5.1 [facility] Comment on above: Order Comment: [facility] Type: BLOOD SPECIMENOrdering Facility: [facility] Address: [address] [place] [address] Performed By: #### 2 4323-8, 60098-2 ####[facility] LABCLIA [id number] [place] [address] [place] Protein [Mass/Vol] 6.2 g/dL Low 6.3-8.0 [facility] Comment on above: Order Comment: Speci men Type: BLOOD SPECIMENOrdering Facility: [facility] Address: [address] [place] [address] Performed By: #### 2 4323-8, 72679-6 ####[facility] LABIA [id number] [place] [address] [place] Sodium [Moles/Vol] 140 mmol/L Normal 136-144 [facility] Comment on above: Order Comment: Speci men Type: BLOOD SPECIMENOrdering Facility: [facility] Address: [address] [place] [address] Performed By: #### 2 4323-8, 81725-6 ####[facility] LABIA [id number] [place] [address] [place] Urea nitrogen [Mass/Vol] 22 mg/dL Normal 9-24 [facility] Comment on above: Order Comment: Speci men Type: BLOOD SPECIMENOrdering Facility: [facility] Address: [address] [place] [address] Performed By: #### 2 4323-8, 96060-1 ####[facility] LABIA [id number] [place] [id number] [place] Lipid 1996 panelon 4 Cholesterol [Mass/Vol] 179 mg/dL Normal <200 [facility] Comment on above: Order Comment: Speci men Type: BLOOD SPECIMENOrdering Facility: [facility] Address: [address] [place] [address] Result Comment: <200 mg/dL, Desirable 200-239 mg/dL, Borderline high >239 mg/dL, High Performed By: #### 2 4323-8, 49201-6 ####[facility] LABCLIA [id number] [address] OF [facility] Cholesterol in HDL [Mass/Vol] 29 mg/dL Low >39 [facility] Comment on above: Order Comment: Marychichi vinson Type: BLOOD SPECIMENOrdering Facility: [facility] Address: [address] [place] [address] Result Comment: 40-5 9 mg/dL, Acceptable >59 mg/dL, High: Negative risk factor for coronary heart disease <40 mg/dL, Low: Positive risk factor for coronary heart disease Performed By: #### 2 4323-8, 37587-3 ####[facility] LABCLIA [id number] [address] Cholesterol in LDL [Mass/Vol] 97 mg/dL Normal <100 [facility] Comment on above: Order Comment: Zach karel Type: BLOOD SPECIMENOrdering Facility: [facility] Address: [address] [place] [address] Result Comment: <100 mg/dL, Optimal 100-129 mg/dL, Near optimal/above optimal 130-159 mg/dL, Borderline high 160-189 mg/dL, High >189 mg/dL, Very high Secondary prevention optimal LDL Cholesterol levels are recommended to be < 70 mg/dL Performed By: #### 2 4323-8, 55511-5 ####[facility] LABCLIA [id number] [address] OF [facility] Cholesterol in LDL/Cholesterol in HDL [Mass ratio] 3.34 {ratio} High <2.54 [facility] Comment on above: Order Comment: Marychichi vinson Type: BLOOD SPECIMENOrdering Facility: [facility] Address: [address] [place] [address] Result Comment: Arnoldo ross: 1. National Cholesterol Education Program ATP III Guideline At-A-Glance Quick Desk Reference: National Heart, Lung, and Blood Medicine [place]. National Institutes of Health. 2001: NIH Publication No. 01-3305. 2. An International Atherosclerosis Society position paper: global recommendations for the management of dyslipidemia: executive summary, Atherosclerosis. 2014: 232(2):410-413. Performed By: #### 2 4323-8, 36733-0 ####[facility] LABCLIA [id number] [place] [address] [place] Cholesterol in VLDL [Mass/Vol] 53 mg/dL High <30 [facility] Comment on above: Order Comment: Speci men Type: BLOOD SPECIMENOrdering Facility: [facility] Address: [address] [place] [address] Performed By: #### 2 4323-8, 29867-1 ####[facility] LABCLIA [id number] [place] [address] [place] Cholesterol non HDL [Mass/Vol] 150 mg/dL High <130 [facility] Comment on above: Order Comment: Maryi men Type: BLOOD SPECIMENOrdering Facility: [facility] Address: [address] [place] [address] Result Comment: <130 mg/dL, Optimal 130-159 mg/dL, Near optimal/above optimal 160-189 mg/dL, Borderline high 190-219 mg/dL, High >219 mg/dL, Very high Secondary prevention optimal non HDL Cholesterol levels are recommended to be <100 mg/dL Performed By: #### 2 4323-8, 23343-6 ####[facility] LABCLIA [id number] [place] [address] [place] Cholesterol.total/Chol esterol in HDL [Mass ratio] 6.17 {ratio} High <5.10 [facility] Comment on above: Order Comment: Maryi men Type: BLOOD SPECIMENOrdering Facility: [facility] Address: [address] [place] [address] Performed By: #### 2 4323-8, 60477-5 ####[facility] LABCLIA [id number] [place] [id number] [place] FASTING TIME 12 hrs Normal [facility] Comment on above: Order Comment: Speci men Type: BLOOD SPECIMENOrdering Facility: [facility] Address: [address] [place] [address] Performed By: #### 2 4323-8, 68419-0 ####[facility] LABCLIA [id number] [place] [address] [place] Triglyceride [Mass/Vol] 264 mg/dL High <150 [facility] Comment on above: Order Comment: Speci men Type: BLOOD SPECIMENOrdering Facility: [facility] Address: [address] [place] [address] Result Comment: <150 mg/dL, Normal 150-199 mg/dL, Borderline high 200-499 mg/dL, High >499 mg/dL, Very high Performed By: #### 2 4323-8, 04388-4 ####[facility] LABCLIA [id number] [place] [address] [place] CTA ABD/PEL WO/W IVCONon [facility] Basic metabolic 2000 panelon 02-01-2023 Anion gap [Moles/Vol] 7 mmol/L Low -18 [facility] Comment on above: Order Comment: Speci men Type: BLOOD SPECIMENOrdering Facility: [facility] Address: [address] Performed By: #### 2 4321-2, ####[facility] [id number] [place] [id number] [place] Calcium [Mass/Vol] 8.9 mg/dL Normal 8.5-10.2 [facility] Comment on above: Order Comment: Speci men Type: BLOOD SPECIMENOrdering Facility: [facility] Address: [address] Performed By: #### 2 4321-2, ####[facility]ORY[facility]IA [id number] [place] [id number] [place] Chloride [Moles/Vol] 105 mmol/L Normal 97-105 [facility] Comment on above: Order Comment: Speci men Type: BLOOD SPECIMENOrdering Facility: [facility] Address: [address] [place] [address] Performed By: #### 2 4321-2, ####[facility]ORYCLIA [id number] [place] [id number] [place] CO2 [Moles/Vol] 27 mmol/L Normal 22-30 [facility] Comment on above: Order Comment: Speci men Type: BLOOD SPECIMENOrdering Facility: [facility] Address: [address] [place] [address] Performed By: #### 2 2, ####[facility]ORYCLIA [id number] [place] [address] [place] Creatinine [Mass/Vol] 1.13 mg/dL Normal 0.73-1.22 [facility] Comment on above: Order Comment: Speci men Type: BLOOD SPECIMENOrdering Facility: [facility] Address: [address] [place] [address] Performed By: #### 2 4320-08, ####[facility]ORYCLIA [id number] [place] [address] [place] ESTIMATED GLOMERULAR FILTRATION RATE 64 mL/min/1.73m??? Normal >=60 [facility] Comment on above: Order Comment: Speci men Type: BLOOD SPECIMENOrdering Facility: [facility] Address: [address] [place] [address] Result Comment: Toya mated Glomerular Filtration Rate [...] Performed By: #### 2 4321-2, ####[facility]ORYCLIA [id number] [place] [id number] [place] Glucose [Mass/Vol] 118 mg/dL High 74-99 [facility] Comment on above: Order Comment: Speci men Type: BLOOD SPECIMENOrdering Facility: [facility] Address: [address] [place] [address] Result Comment: The [place] Diabetes Association (ADA) provides guidance for cutoff [...] Standards of Medical Care in Diabetes 2016, [place] Diabetes Association. Diabetes Care. 2016.39(Suppl 1). Performed By: #### 2 4320-08, ####[facility]ORY[facility] [id number] [place] [address] [place] Potassium [Moles/Vol] 3.9 mmol/L Normal 3.7-5.1 [facility] Comment on above: Order Comment: Speci men Type: BLOOD SPECIMENOrdering Facility: [facility] Address: [address] [place] [address] Performed By: #### 2 4320-08, ####[facility]ORY[facility] [id number] [place] [id number] [place] Sodium [Moles/Vol] 139 mmol/L Normal 136-144 [facility] Comment on above: Order Comment: Speci men Type: BLOOD SPECIMENOrdering Facility: [facility] Address: [address] [place] [address] Performed By: #### 2 4320-08, ####[facility] [id number] [place] [id number] [place] Urea nitrogen [Mass/Vol] 19 mg/dL Normal 9-24 [facility] Comment on above: Order Comment: Speci men Type: BLOOD SPECIMENOrdering Facility: [facility] Address: [address] [place] [address] Performed By: #### 2 4321-2, 33581-0 ####[facility]ORYCLIA [id number] [place] [address] [place] CBC panel Auto (Bld)on 02-01 Erythrocyte distribution width (RBC) [Ratio] 14.0 % Normal 11.5-15.0 [facility] Comment on above: Order Comment: Speci men Type: BLOOD SPECIMEN [facility] Address: [address] [place] [address] Performed By: #### 5 8410-2 #### [facility] CLIA [id number] [address] [place] [address] [place] Hematocrit (Bld) [Volume fraction] 35.8 % Low 39.0-51.0 [facility] Comment on above: Order Comment: Speci men Type: BLOOD SPECIMEN [facility] Address: [address] [place] [address] Performed By: #### 5 8410-2 #### [facility] CLIA [id number] [address] [place] [address] [place] Hemoglobin (Bld) [Mass/Vol] 11.9 g/dL Low 13.0-17.0 [facility] Comment on above: Order Comment: Speci men Type: BLOOD SPECIMEN [facility] Address: [address] [place] [address] Performed By: #### 5 8410-2 #### [facility] CLIA [id number] [address] [place] [address] [place] MCH (RBC) [Entitic mass] 31.6 pg Normal 26.0-34.0 [facility] Comment on above: Order Comment: Speci men Type: BLOOD SPECIMEN [facility] Address: [address] [place] [address] Performed By: #### 5 8410-2 #### [facility] CLIA [id number] [place] [address] [place] MCHC (RBC) [Mass/Vol] 33.2 g/dL Normal 30.5-36.0 [facility] Comment on above: Order Comment: Speci men Type: BLOOD SPECIMEN [facility] Address: [address] [place] [address] Performed By: #### 5 8410-2 #### [facility] CLIA [id number] [address] [place] [address] [place] MCV (RBC) [Entitic vol] 95.0 fL Normal 80.0-100.0 [facility] Comment on above: Order Comment: Speci men Type: BLOOD SPECIMEN [facility] Address: [address] [place] [address] Performed By: #### 5 8410-2 #### [facility] CLIA [id number] [address] [place] [address] [place] Nucleated RBC (Bld) [#/Vol] 10*3/uL Normal <0.01 [facility] Comment on above: Order Comment: Speci men Type: BLOOD SPECIMEN [facility] Address: [address] [place] [address] Performed By: #### 5 8410-2 #### [facility] CLIA [id number] [address] [place] [address] [place] Platelet mean volume (Bld) [Entitic vol] 9.2 fL Normal 9.0-12.7 [facility] Comment on above: Order Comment: Speci men Type: BLOOD SPECIMEN [facility] Address: [address] [place] [address] Performed By: #### 5 8410-2 #### [facility] CLIA [id number] [address] [place] [address] [place] Platelets (Bld) [#/Vol] 152 10*3/uL Normal 150-400 [facility] Comment on above: Order Comment: Speci men Type: BLOOD SPECIMEN [facility] Address: [address] [place] [address] Performed By: #### 5 8410-2 #### [facility] CLIA [id number] [address] [place] [address] [place] RBC (Bld) [#/Vol] 3.77 10*6/uL Low 4.20-6.00 [facility] Comment on above: Order Comment: Speci men Type: BLOOD SPECIMEN [facility] Address: [address] [place] [address] Performed By: #### 5 8410-2 #### [facility] IA [id number] [address] [place] [address] [place] WBC (Bld) [#/Vol] 6.60 10*3/uL Normal 3.70-11.00 [facility] Comment on above: Order Comment: Speci men Type: BLOOD SPECIMEN [facility] Address: [address] [place] [address] Performed By: #### 5 8410-2 #### [facility] IA [id number] [address] [place] [address] [place] Magnesium SerPl-mCncon 02-01 Magnesium [Mass/Vol] 1.5 mg/dL Low 1.7-2.3 [facility] Comment on above: Order Comment: Speci men Type: BLOOD SPECIMENOrdering Facility: [facility] Address: [address] [place] [address] Performed By: #### 2 4321-2, 91699-4 ####[facility] LABORATORYIA [id number] [place] [address] [place] ANES POSTPROC EVALon 023 ANES POSTPROC EVAL HNO ID: [id number] Author: Rylie Schulz MD Service: Critical Care [...] January 31, 2023 TIME: 12:41 PM CSN: [id number] [facility] ANES PRE-OPon 01-31-2023 ANES PRE-OP HNO ID: [id number] Author: Rylie Schulz MD Service: Critical Care Author Type: Anesthesiologist Type: Anesthesia Preprocedure Evaluation Filed: 01/31/2023 7:24 AM Note Text: ANESTHESIOLOGY DAY OF SURGERY NOTE : 1935 Procedure Information Date/Time: 01/31/23729 Procedure: ENDOVASCULAR REPAIR AORTA TO RENAL LEVEL,W/AORTO-AORTIC ENDOGRAFT,WITHOUT RUPTURE (Aorta) - Endovascular aortic aneurysm repair with iliac branch device - Damián Pierre from [employer] will bring implant - 01/17 EVENT DESIGNER NEEDED Location: ORA / OR Surgeons: Eladio [...] affected area twice daily. As needed) - qwubgqwz-efpolmvld-kyxftoffy isone (CORTISPORIN) 3.5-10,000-1 mg/mL-unit/mL-% otic suspension Use [...] January 31, 2023 TIME: 7:18 AM CSN: [id number] [facility] BRIEF OP NOTon 01-31-2023 BRIEF OP NOT HNO ID: [id number] Author: Boris Ramey MD Service: Vascular Surgery Author Type: Resident Type: Brief Op Note Filed: 01/31/2023 12:11 PM Note Text: BRIEF OPERATIVE / PROCEDURE NOTE LOG ID: [id number] Surgery/Procedure Date: 01/31/2023 Incision/Procedure Start Time: 8:58 AM Incision Close/Procedure End Time: 11:51 AM Surgeon(s)/Proceduralist(s) and Business Broker(s): Surgeon(s) and Role: * Eladio Pablo MD - Primary * Boris Ramey MD - Resident - Assisting No Additional Staff Procedure(s): ENDOVASCULAR REPAIR AORTA TO RENAL LEVEL,W/AORTO-AORTIC ENDOGRAFT,WITHOUT RUPTURE: [id number] (CPT?) KRISTOPHER AAA: Endo AAA Hypogastric Intentionally Covered: No Hypogastric Unintentionally Covered: Right - Patent and Left - Patent Access: Percutaneous Contrast Volume: 80 cc Endoleak Type: Lumbar branch (II) Unfit for Open Repair: Yes, due to frailty Devices Used: Cartwright Excluder and Iliac branch device Fluoro Time: 32.2 min, 2196 mGy Anesthesia: General ASA Class: Findings: LEFT Iliac branch device [id number] mainbody and [id number] hypogastric limb. 32x14.5x14cm Cartwright Excluder Main body EVAR component, bridged IBD and main body with a 27mm Gould limb and extended the R iliac limb with a [id number] Gould limb into the R MARCIN aneurysm. [...] to affected area twice daily. As needed) cqnzolug-jdwlrzpxc-frvgoalwe isone (CORTISPORIN) 3.5-10,000-1 mg/mL-unit/mL-% otic suspension Use [...] 31, 2023 TIME: 12:04 PM PAGER/CONTACT #: [phone] [facility] 01-31-2023 [facility] HNO ID: [id number] Author: Ibeth Paredes APRN.SARAI Service: Vascular Surgery Author Type: Nurse Practitioner Type: Discharge Summary Filed: 02/01/2023 10:56 AM Note Text: Attestation signed by Eladio Pablo MD at 02/01/2023 1:13 PM agree Department of Vascular Surgery Discharge Summary (Template ID [id number]) PATIENT NAME: Paco Whitney ADMISSION DATE: 01/31/2023 [...] Infrarenal abdominal aortic aneurysm (AAA) without rupture ([facility]) (01/31/2023) COPD (chronic obstructive pulmonary disease) ([facility]) () Essential hypertension, benign () Hyperlipidemia () [...] as: M (more content not included)... Normal [facility] CONFIRM BLOOD TYPEon 023 ABO O [facility] Comment on above: Order Comment: Speci men Type: BLOOD SPECIMENOrdering Facility: [facility] Address: [address] [place] [address] Performed By: #### C ONABO ####[facility] [id number] [address] Rh Nom (Bld) Negative [facility] Comment on above: Order Comment: Speci men Type: BLOOD SPECIMENOrdering Facility: [facility] Address: [address] [place] [address] Performed By: #### C ONABO ####[facility] [id number] [address] HISTORY PHYSICALon HISTORY PHYSICAL HNO ID: [id number] Author: Reji Zarco MD Service: Critical Care Author Type: Resident Type: HANDP Filed: 01/31/2023 12:52 PM Note Text: Attestation signed by Pallavi Cazares MD at 01/31/2023 3:58 PM [facility] STAFF PHYSICIAN SUPERVISING RESIDENT I have reviewed the progress note obtained and documented by the resident. I have discussed the case and the plan and management of the patient's care with the resident and the bedside nurse. The following comments revise or confirm relevant bah components of the note: 87 year old [...] GERD, BPH, and AAA who presents to [facility] for AAA repair. The patient has [...] W/COLLJ SPEC WHEN PFRMD 09/19/2011 [facility]oscopy [facility] HERNIA REPAIR HX 04/03/13 PAST SURGICAL [...] Cholecalciferol (Vit D3 (more content not included)... [facility] NURSING PROGon 01-31-2023 NURSING PROG HNO ID: [id number] Author: Pamela Sparks RN Service: Nursing Author [...] None REFERRAL (RECOMMENDATION): None Electronically Signed By: Pamela Sparks [facility] OPERATIVE NOon 01-31-2023 OPERATIVE NO HNO ID: [id number] Author: Eladio Pablo MD Service: Vascular Surgery Author Type: Physician Type: Operative Report Filed: 01/31/2023 9:58 PM Note Text: OPERATIVE/PROCEDURE REPORT LOG ID: [id number] Surgery/Procedure Date: 01/31/2023 Incision/Procedure Start Time:8:58 AM Incision Close/Procedure End Time: 11:51 AM Surgeon(s)/Proceduralist(s) and Business Broker(s): Surgeon(s) and Role: * Eladio Pablo MD [...] tipped Amplatz wire was placed. A 14x7 Cartwright hypogastric limb was used to stent the [...] the appropriate length. A bridge graft 27x10 Cartwright Excluder was placed and deployed. The marking catheter was then placed up the ipsilateral side and a pelvic angiogram performed through the sheath to determine the location of the hypogastric artery and to determine the appropriate limb length extension. A 27 x10 bellbottom Cartwright extension was placed as the ipsilateral iliac [...] in stable condition. Implantable Devices: Main body Cartwright Excluder Conformable [id number] Ipsilateral extension Cartwright Excluder 27x10 gould bottom Iliac branch endoprosthesis Cartwright Excluder [id number] Hypogastric branch Cartwright Excluder 14 x 7 Bridge graft Cartwright Excluder 27x10 Pre-Op/Pre-Procedure Diagnosi (more content not included)... Normal [facility] TYPE AND SCREEN,30 DAYon ABO O [facility] HIstorical Ab Scr Status Negative [facility] Rh Nom (Bld) Negative [facility] NM CARDIAC PERF STRESS/PHARM on 11-29-2022 [...] later. See administered radiotracer and doses below. [facility] Date of service: 11/29/2022 9:55:40 AM [...] Final * * * Stress ECG Report: [facility] Date of service: 11/29/2022 9:55:40 AM Ordering physician: ELADIO PABLO equipment validation specialist: Tosha Fernando Business Broker: Lucina Mccarthy Interpreting physician: Kris oJnes MD Patient name: MR. PACO WHITNEY Age: [...] * Stress Super (more content not included)... [facility] Ortiz 11-26-2022 CNPN Telephone (CDLBME) PACO WHITNEY ([id number]) 1935 M Date Time Provider Department 11/26/22 [...] Fully Assessed Reason for Visit: Reminder Call [[id number]] Prescriptions as of 11/26/2022 - ramipril (ALTACE) [...] 1 capsule by mouth once daily. - ijifmawa-lhhsqelqj-ejtztepyt isone (CORTISPORIN) 3.5-10,000-1 mg/mL-unit/mL-% otic suspension Use [...] Status:Closed by TOSHA FERNANDO on 11/26/22 Normal [facility] CT ABD/PEL WO IVCONon 2022 Radiology Result ACTIONABLE Abnormal [facility] No Panel Informationon 10-[address] [facility] CT CHEST WO IVCONon 07-08-[address] [facility] SPIROMETRY WITH DILATOR IF O BSTRUCTEDon 07-06-2022 TQH65-82% PRE (L/S) 1.60 L/S [facility] FEV1 PRE (L) 2.[address] [facility] FEV1/FVC PRE (%) 72 % [facility] FVC PRE (L) 3.[address] [facility] PEF PRE (L/S) 7.30 L/S [facility] XR Chest PA and Lateralon IMPRESSION: 1. Stable appearing 3 cm right lower lobe mass. 2. Underlying pulmonary fibrosis. 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: PENNY Transcribe Date/Time: Jun 08 2022 3:23P Dictated by : ZAC WASSERMAN MD This examination was interpreted and the report reviewed and electronically signed by: ZAC WASSERMAN MD on Jun 08 2022 3:27PM [facility] DIVISION OF RADIOLOGY * * *Final Report* [...] lumbar vertebral body. DIVISION OF RADIOLOGY Provider, [facility] - 06/08/2022 * * *Final Report* * [...] lower lobe mass. 2. Underlying pulmonary fibrosis. 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: PSCB Transcribe Date/Time: Jun 08 2022 3:23P Dictated by : ZAC WASSERMAN MD This examination was interpreted and the report reviewed and electronically signed by: ZAC WASSERMAN MD on Jun 08 2022 3:27PM EST [facility] Radiology Study observation (narrative) [facility] XR Chest PA and LateralOrder ed By: Ccf Provider on 06-08-[address] [facility] CNOVon 12-06-2018 CNOV Office Visit (AKURFL ) PACO WHITNEY ([id number]) 1935 M Date Time Provider Department 12/06/18 2:00 PM CHALINO VALDEZ During your visit today, we recorded the following information about you: Blood pressure Weight Height 122/66 97.5 kg 1.676 m Mecca Lombardo CMA 12/06/2018 2:25 PM Signed No urine sample given. Mecca Valdez DO, MBA 12/07/2018 10:55 AM Signed ?? [facility] LOCATION: [address] [place] [address] ESTABLISHED PATIENT PATIENT INFO: Paco Whitney 83 [...] 51.1 Lymph% (%) Date Value 12/20/2014 31.4 Delta% (%) Date Value 12/20/2014 13.2 Eosin% (%) Date Value 12/20/2014 3.8 Baso% (%) Date Value 12/20/2014 0.5 Abs Neut (ANC) (k/uL) Date Value 12/20/2014 2.97 Abs Delta (k/uL) Date Value 12/20/2014 0.77 Abs Eosin [...] Status 02/26/2009 5.0 4.5 - 8.0 Specific [place], Ur Date Value Ref Range Status 02/26/2009 [...] Take 5 mL by mouth twice daily. gpzqfufr-pkoyyjxgc-fpgmkzgtj isone (CORTISPORIN) 3.5-10,000-1 mg/mL-unit/mL-% otic suspension Use [...] advantage with preservation of long-term renal function prison and the equivalent long-term cancer control rates [...] Time: 10:54 AM Referring Provider: JIL HENRIQUEZ) [[id number]] Allergies As of Date: 12/06/2018 Noted Allergy [...] symptoms present [N40.0] Order(s):CT KIDNEY WO/W IVCON [[id number]] Order #: [id number] FUTURE iv contrast (will be provided with [...] EachRfl: 0 CREATININE BLD [SQCRET] Order #: [id number] FUTURE Prescriptions as of 12/06/2018 Sig: IV [...] Take 5 mL by mouth twice leyla* MOJQZXRR-QUZFTHCZT-AUKMMGYQL * Use 4 Drops in the ears [...] Encounter Status:Closed by CHALINO VALDEZ on 12/07/18 [facility] PROGRESSon 12-06-2018 Protein mass conc HNO ID: [id number] Author: Chalino Valdez Service: ? Author Type: Physician Type: Progress Notes Filed: 12/07/2018 10:55 AM Note Text: ?? [facility] LOCATION: [address] [place] [address] ESTABLISHED PATIENT PATIENT INFO: Pcao Whitney 83 year old Chief Complaint: Renal [...] 51.1 Lymph% (%) Date Value 12/20/2014 31.4 Delta% (%) Date Value 12/20/2014 13.2 Eosin% (%) Date Value 12/20/2014 3.8 Baso% (%) Date Value 12/20/2014 0.5 Abs Neut (ANC) (k/uL) Date Value 12/20/2014 2.97 Abs Delta (k/uL) Date Value 12/20/2014 0.77 Abs Eosin [...] Status 02/26/2009 5.0 4.5 - 8.0 Specific [place], [place] Date Value Ref Range Status 02/26/2009 [...] Take 5 mL by mouth twice daily. fheebcns-jsjyuomsg-urhypokyw isone (CORTISPORIN) 3.5-10,000-1 mg/mL-unit/mL-% otic suspension Use [...] 5 cm Recommended eval by cardiology/vascular in [facility] Repeat CT in 6 months Call with [...] advantage with preservation of long-term renal function prison and the equivalent long-term cancer control rates [...] MBA Date: 12/07/2018 Time: 10:54 AM Normal [facility] CT BRAIN W/O CONTRASTon 01-16 CT BRAIN W/O CONTRAST [place] [id number] Patient: PACO WHITNEY Phone#: : [phone] Age: 82 Gender: M Pt. Type: ER Account: [id number] Location: 052 Ordering: EVELYN MADDEN Exam Date: 02/12/201813:39 Family Phys: CLARICE MURILLO Charge Code: [id number] Physician: Delta Order #: [id number] DLP Dose#: [id number] PROCEDURE: CT BRAIN WITHOUT [...] 82 Gender: M Pt. Type: ER Account: [id number] Location: 052 Ordering: EVELYN MADDEN Exam Date: 02/12/2018/13:39 Family Phys: CLARICE MURILLO Charge Code: [id number] Physician: Delta Order #: [id number] DLP Dose#: 57.50 Dictated by: Gail Morrison MD on 02/12/2018 at 17:20 Approved by: Gail Morrison MD on 02/12/2018 at 17:20 Normal [facility] CT CERVICAL W/O CONTRASTon 0 02-12-2018 CT CERVICAL W/O CONTRAST [place] [id number] [place], [place] [address] Patient: PACO WHITNEY Phone#: : [phone] Age: 82 Gender: M Pt. Type: ER Account: [id number] Location: 052 Ordering: EVELYN MADDEN Exam Date: 02/12/2018/13:39 Family Phys: CLARICE MURILLO Charge Code: [id number] Physician: Delta Order #: [id number] DLP Dose#: 12.00 PROCEDURE: CT CERVICAL WITHOUT [...] 82 Gender: M Pt. Type: ER Account: [id number] Location: 052 Ordering: EVELYN MADDEN Exam Date: 02/12/2018/13:39 Family Phys: CLARICE MURILLO Charge Code: [id number] Physician: Delta Order #: [id number] DLP Dose#: 12.00 1. 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 2. There is disc space narrowing at the C3-4 level. Dictated by: Gail Morrison MD on 02/12/2018 at 17:23 Approved by: Gail Morrison MD on 02/12/2018 at 17:23 [facility] CT CHEST/ABD/PELVIS C-C+on 0 02-12-2018 CT CHEST/ABD/PELVIS C-C+ [place] [address] Patient: PACO WHITNEY Phone#: : 1935 Age: 82 Gender: M Pt. Type: ER Account: [id number] Location: 052 Ordering: EVELYN MADDEN Exam Date: 02/12/2018/13:45 Family Phys: CLARICE MURILLO Charge Code: [id number] Physician: Delta Order #: [id number] DLP Dose#: 64.7 PROCEDURE: CT CHEST/ABD/PELVIS W/WO [...] 82 Gender: M Pt. Type: ER Account: [id number] Location: [facility] Ordering: EVELYN MADDEN Exam Date: 02/12/2018/13:45 Family Phys: CLARICE MURILLO Charge Code: 517989 Physician: Delta Order #: [id number] DLP Dose#: 64.7 ADRENALS: Normal. No mass [...] Morrison MD on 02/13/2018 at 9:46 Normal [facility] Large Joint Arthro/Inj: bila teral glenohumerals [facility] Vital Signs Date Time Vital Sign Value Performing Clinician Facility 02-05-2025 14:48-0400 Body mass index (BMI) [Ratio] 27.33 kg/m2 Clarice Murillo MD Work Phone: [facility] 02-05-2025 14:48-0400 Body weight 86.4 kg Clarice Murillo MD Work Phone: [facility] 02-05-2025 14:48-0400 Diastolic blood pressure 68 mm[Hg] Clarice Murillo MD Work Phone: [facility] 02-05-2025 14:48-0400 Heart rate 76 /min Clarice Murillo MD Work Phone: [facility] 02-05-2025 14:48-0400 Respiratory rate 16 /min Clarice Murillo MD Work Phone: [facility] 02-05-2025 14:48-0400 SaO2% (BldA) [Mass fraction] 94 % Clarice Murillo MD Work Phone: [facility] 02-05-2025 14:48-0400 Systolic blood pressure 110 mm[Hg] Clarice Murillo MD Work Phone: [facility] 11-10-2024 09:46-0400 Body temperature 97.7 [degF] Dr. Clarice Murillo MD Work Phone: [facility] 11-10-2024 09:46-0400 Diastolic blood pressure 58 mm[Hg] Dr. Clarice Murillo MD Work Phone: [facility] 11-10-2024 09:46-0400 Heart rate 71 /min Dr. Clarice Murillo MD Work Phone: [facility] 11-10-2024 09:46-0400 Respiratory rate 18 /min Dr. Clarice Murillo MD Work Phone: 6(891)[phone] [place] [address] 11-10-2024 09:46-0400 SaO2% (BldA) [Mass fraction] 95 % Dr. Clarice Murillo MD Work Phone: 1(652)[phone] [place] [address] 11-10-2024 09:46-0400 Systolic blood pressure 103 mm[Hg] Dr. Clarice Murillo MD Work Phone: 9(744)[phone] [place] [address] 11-10-2024 05:33-0400 Body mass index (BMI) [Ratio] 29.7 kg/m2 Dr. Clarice Murillo MD Work Phone: 1(585)[phone] [place] [address] 11-10-2024 05:33-0400 Body weight 90.[address] Clarice Murillo MD Work Phone: 1(998)[phone] [place] [address] 11-08-2024 21:03-0400 Body height 175.[address] Clarice Murillo MD Work Phone: 2(521)[phone] [place] [address] 11-03-2024 08:25-0400 Body mass index (BMI) [Ratio] 28.82 kg/m2 Jyothi Mosley APRN.[employer]ARHEAD MAINTENANCE SPECIALIST Work Phone: [facility] 11-03-2024 08:25-0400 Body temperature 97.81 [degF] Jyothi Melany MEDICAL TECHNOLOGIST CHEMISTRY.WARHEAD MAINTENANCE SPECIALIST Work Phone: [facility] 11-03-2024 08:25-0400 Body weight 91.1 kg Jyothi Mosley APRN.WARHEAD MAINTENANCE SPECIALIST Work Phone: [facility] 11-03-2024 08:25-0400 Diastolic blood pressure 72 mm[Hg] Jyothi Mosley MEDICAL TECHNOLOGIST CHEMISTRY.WARHEAD MAINTENANCE SPECIALIST Work Phone: [facility] 11-03-2024 08:25-0400 Heart rate 68 /min Jyothi Sabillonk MEDICAL TECHNOLOGIST CHEMISTRY.WARHEAD MAINTENANCE SPECIALIST Work Phone: [facility] 11-03-2024 08:25-0400 Respiratory rate 16 /min Jyothi Sabillonk MEDICAL TECHNOLOGIST CHEMISTRY.WARHEAD MAINTENANCE SPECIALIST Work Phone: [facility] 11-03-2024 08:25-0400 SaO2% (BldA) [Mass fraction] 95 % Jyothi Sabillonk MEDICAL TECHNOLOGIST CHEMISTRY.WARHEAD MAINTENANCE SPECIALIST Work Phone: [facility] 11-03-2024 08:25-0400 Systolic blood pressure 132 mm[Hg] Jyothi Mosley MEDICAL TECHNOLOGIST CHEMISTRY.WARHEAD MAINTENANCE SPECIALIST Work Phone: [facility] 09-24-2024 10:02-0400 Body mass index (BMI) [Ratio] 28.52 kg/m2 Francia Luna MD Work Phone: [facility] 09-24-2024 10:02-0400 Body weight 90.17 kg Francia Luna MD Work Phone: [facility] 09-24-2024 10:02-0400 Diastolic blood pressure 73 mm[Hg] Francia Luna MD Work Phone: [facility] 09-24-2024 10:02-0400 Heart rate 74 /min Francia Luna MD Work Phone: [facility] 09-24-2024 10:02-0400 Respiratory rate 16 /min Francia Luna MD Work Phone: [facility] 09-24-2024 10:02-0400 SaO2% (BldA) [Mass fraction] 96 % Francia Luna MD Work Phone: [facility] 09-24-2024 10:02-0400 Systolic blood pressure 118 mm[Hg] Francia Luna MD Work Phone: [facility] 08-01-2024 14:16-0500 Body mass index (BMI) [Ratio] 28.37 kg/m2 Karla Campuzano MEDICAL TECHNOLOGIST CHEMISTRY.WARHEAD MAINTENANCE SPECIALIST Work Phone: [facility] 08-01-2024 14:16-0500 Body weight 89.7 kg Karla Tannhof MEDICAL TECHNOLOGIST CHEMISTRY.WARHEAD MAINTENANCE SPECIALIST Work Phone: [facility] 08-01-2024 14:16-0500 Diastolic blood pressure 62 mm[Hg] Karla Tannhof MEDICAL TECHNOLOGIST CHEMISTRY.WARHEAD MAINTENANCE SPECIALIST Work Phone: [facility] 08-01-2024 14:16-0500 Heart rate 71 /min Karla Tannhof MEDICAL TECHNOLOGIST CHEMISTRY.WARHEAD MAINTENANCE SPECIALIST Work Phone: [facility] 08-01-2024 14:16-0500 Respiratory rate 16 /min Karla Tannhof MEDICAL TECHNOLOGIST CHEMISTRY.WARHEAD MAINTENANCE SPECIALIST Work Phone: [facility] 08-01-2024 14:16-0500 SaO2% (BldA) [Mass fraction] 97 % Karla Tannhof MEDICAL TECHNOLOGIST CHEMISTRY.WARHEAD MAINTENANCE SPECIALIST Work Phone: [facility] 08-01-2024 14:16-0500 Systolic blood pressure 104 mm[Hg] Karla Tannhof MEDICAL TECHNOLOGIST CHEMISTRY.WARHEAD MAINTENANCE SPECIALIST Work Phone: [facility] 01-16-2024 12:59-0400 Body mass index (BMI) [Ratio] 29.13 kg/m2 Karla Tannhof MEDICAL TECHNOLOGIST CHEMISTRY.WARHEAD MAINTENANCE SPECIALIST Work Phone: [facility] 01-16-2024 12:59-0400 Body weight 92.08 kg Karla Tannhof MEDICAL TECHNOLOGIST CHEMISTRY.WARHEAD MAINTENANCE SPECIALIST Work Phone: [facility] 01-16-2024 12:59-0400 Diastolic blood pressure 70 mm[Hg] Karla Tannhof MEDICAL TECHNOLOGIST CHEMISTRY.WARHEAD MAINTENANCE SPECIALIST Work Phone: [facility] 01-16-2024 12:59-0400 Heart rate 86 /min Karla Tannhof MEDICAL TECHNOLOGIST CHEMISTRY.WARHEAD MAINTENANCE SPECIALIST Work Phone: [facility] 01-16-2024 12:59-0400 Respiratory rate 16 /min Karla Tannhof MEDICAL TECHNOLOGIST CHEMISTRY.WARHEAD MAINTENANCE SPECIALIST Work Phone: [facility] 01-16-2024 12:59-0400 SaO2% (BldA) [Mass fraction] 95 % Karla Tannhof MEDICAL TECHNOLOGIST CHEMISTRY.WARHEAD MAINTENANCE SPECIALIST Work Phone: [facility] 01-16-2024 12:59-0400 Systolic blood pressure 110 mm[Hg] Karla Tannhof MEDICAL TECHNOLOGIST CHEMISTRY.WARHEAD MAINTENANCE SPECIALIST Work Phone: [facility] 01-03-2024 10:46-0400 Body mass index (BMI) [Ratio] 28.84 kg/m2 Francia Luna MD Work Phone: [facility] 01-03-2024 10:46-0400 Body weight 91.17 kg Francia Luna MD Work Phone: [facility] 01-03-2024 10:46-0400 Diastolic blood pressure 68 mm[Hg] Francia Luna MD Work Phone: [facility] 01-03-2024 10:46-0400 Heart rate 75 /min Francia Luna MD Work Phone: [facility] 01-03-2024 10:46-0400 Respiratory rate 14 /min Francia Luna MD Work Phone: [facility] 01-03-2024 10:46-0400 SaO2% (BldA) [Mass fraction] 96 % Francia Luna MD Work Phone: [facility] 01-03-2024 10:46-0400 Systolic blood pressure 120 mm[Hg] Francia Luna MD Work Phone: [facility] 10-07-2023 09:59-0400 Body weight 91.17 kg Karla Tannhof MEDICAL TECHNOLOGIST CHEMISTRY.WARHEAD MAINTENANCE SPECIALIST Work Phone: [facility] 10-07-2023 09:59-0400 Diastolic blood pressure 72 mm[Hg] Karla Tannhof MEDICAL TECHNOLOGIST CHEMISTRY.WARHEAD MAINTENANCE SPECIALIST Work Phone: [facility] 10-07-2023 09:59-0400 Heart rate 64 /min Karla Tannhof MEDICAL TECHNOLOGIST CHEMISTRY.WARHEAD MAINTENANCE SPECIALIST Work Phone: [facility] 10-07-2023 09:59-0400 Respiratory rate 16 /min Karla Tannhof MEDICAL TECHNOLOGIST CHEMISTRY.WARHEAD MAINTENANCE SPECIALIST Work Phone: [facility] 10-07-2023 09:59-0400 SaO2% (BldA) [Mass fraction] 95 % Karla Tannhof MEDICAL TECHNOLOGIST CHEMISTRY.WARHEAD MAINTENANCE SPECIALIST Work Phone: [facility] 10-07-2023 09:59-0400 Systolic blood pressure 126 mm[Hg] Karla Tannhof MEDICAL TECHNOLOGIST CHEMISTRY.WARHEAD MAINTENANCE SPECIALIST Work Phone: [facility] 07-04-2023 11:03-0500 Body weight 90.27 kg Samaria Jaleesa ANN Work Phone: [facility] 03-14-2023 12:55-0400 Body weight 91.17 kg Karla Tannhof MEDICAL TECHNOLOGIST CHEMISTRY.WARHEAD MAINTENANCE SPECIALIST Work Phone: [facility] 03-14-2023 12:55-0400 Diastolic blood pressure 78 mm[Hg] Karla Tannhof MEDICAL TECHNOLOGIST CHEMISTRY.WARHEAD MAINTENANCE SPECIALIST Work Phone: [facility] 03-14-2023 12:55-0400 Heart rate 51 /min Karla Tannhof MEDICAL TECHNOLOGIST CHEMISTRY.WARHEAD MAINTENANCE SPECIALIST Work Phone: [facility] 03-14-2023 12:55-0400 Respiratory rate 16 /min Karla Tannhof MEDICAL TECHNOLOGIST CHEMISTRY.WARHEAD MAINTENANCE SPECIALIST Work Phone: [facility] 03-14-2023 12:55-0400 SaO2% (BldA) [Mass fraction] 94 % Karla Tannhof MEDICAL TECHNOLOGIST CHEMISTRY.WARHEAD MAINTENANCE SPECIALIST Work Phone: [facility] 03-14-2023 12:55-0400 Systolic blood pressure 102 mm[Hg] Karla Tannhof MEDICAL TECHNOLOGIST CHEMISTRY.WARHEAD MAINTENANCE SPECIALIST Work Phone: [facility] 03-08-2023 10:40-0400 Diastolic blood pressure 80 mm[Hg] Ibeth Reggie MEDICAL TECHNOLOGIST CHEMISTRY.WARHEAD MAINTENANCE SPECIALIST Work Phone: [facility] 03-08-2023 10:40-0400 Heart rate 78 /min Ibeth Reggie MEDICAL TECHNOLOGIST CHEMISTRY.WARHEAD MAINTENANCE SPECIALIST Work Phone: [facility] 03-08-2023 10:40-0400 SaO2% (BldA) [Mass fraction] 97 % Ibeth Reggie MEDICAL TECHNOLOGIST CHEMISTRY.WARHEAD MAINTENANCE SPECIALIST Work Phone: [facility] 03-08-2023 10:40-0400 Systolic blood pressure 132 mm[Hg] Ibeth Paredes MEDICAL TECHNOLOGIST CHEMISTRY.WARHEAD MAINTENANCE SPECIALIST Work Phone: [facility] 01-24-2023 11:12-0400 Body height 167.6 cm Pacc 1 Work Phone: [facility] 01-24-2023 11:12-0400 Body temperature 98.49 [degF] Pacc 1 Work Phone: [facility] 01-24-2023 11:12-0400 Body weight 95.71 kg Pacc 1 Work Phone: [facility] 01-24-2023 11:12-0400 Diastolic blood pressure 64 mm[Hg] Pacc 1 Work Phone: [facility] 01-24-2023 11:12-0400 Heart rate 72 /min Pacc 1 Work Phone: [facility] 01-24-2023 11:12-0400 Respiratory rate 18 /min Pacc 1 Work Phone: [facility] 01-24-2023 11:12-0400 SaO2% (BldA) [Mass fraction] 92 % Pacc 1 Work Phone: [facility] 01-24-2023 11:12-0400 Systolic blood pressure 134 mm[Hg] Pacc 1 Work Phone: [facility] 01-06-2023 12:57-0400 Body weight 91.17 kg Samaria Jaleesa PA-C Work Phone: [facility] 01-06-2023 12:57-0400 Diastolic blood pressure 64 mm[Hg] Samaria Jaleesa PA-C Work Phone: [facility] 01-06-2023 12:57-0400 Heart rate 95 /min Samaria Jaleesa PA-C Work Phone: [facility] 01-06-2023 12:57-0400 Respiratory rate 14 /min Samaria Jaleesa PA-C Work Phone: [facility] 01-06-2023 12:57-0400 SaO2% (BldA) [Mass fraction] 96 % Samaria Arceone PA-C Work Phone: [facility] 01-06-2023 12:57-0400 Systolic blood pressure 98 mm[Hg] Samaria Arceone PA-C Work Phone: [facility] 11-11-2022 11:51-0400 Body height 167.6 cm Chalino Valdez DO Work Phone: [facility] 11-11-2022 11:51-0400 Body weight 96.16 kg Chalino Valdez DO Work Phone: [facility] 10-27-2022 14:28-0400 Body weight 97.07 kg Eladio Pablo MD Work Phone: [facility] 10-27-2022 14:28-0400 Diastolic blood pressure 65 mm[Hg] Eladio Pablo MD Work Phone: [facility] 10-27-2022 14:28-0400 Heart rate 83 /min Eladio Pablo MD Work Phone: [facility] 10-27-2022 14:28-0400 SaO2% (BldA) [Mass fraction] 95 % Eladio Pablo MD Work Phone: [facility] 10-27-2022 14:28-0400 Systolic blood pressure 116 mm[Hg] Eladio Pablo MD Work Phone: [facility] 09-06-2022 18:29-0500 Body weight 96.3 kg Clarice Murillo MD Work Phone: [facility] 09-06-2022 18:29-0500 Diastolic blood pressure 78 mm[Hg] Clarice Murillo MD Work Phone: [facility] 09-06-2022 18:29-0500 Heart rate 74 /min Clarice Murillo MD Work Phone: [facility] 09-06-2022 18:29-0500 Respiratory rate 16 /min Clarice Murillo MD Work Phone: [facility] 09-06-2022 18:29-0500 Systolic blood pressure 130 mm[Hg] Clarice Murillo MD Work Phone: [facility] 07-06-2022 13:25-0500 Body height 167.6 cm Francia Luna MD Work Phone: [facility] 07-06-2022 13:25-0500 Body weight 92.99 kg Francia Luna MD Work Phone: [facility] 07-06-2022 13:25-0500 Heart rate 69 /min Francia Luna MD Work Phone: [facility] 07-06-2022 13:25-0500 Respiratory rate 14 /min Francia Luna MD Work Phone: [facility] 07-06-2022 13:25-0500 SaO2% (BldA) [Mass fraction] 96 % Francia Luna MD Work Phone: [facility] 2022 09:49-0500 Body temperature 98.2 [degF] Tiffanie Schwartz MEDICAL TECHNOLOGIST CHEMISTRY.WARHEAD MAINTENANCE SPECIALIST Work Phone: [facility] 2022 09:49-0500 Body weight 92.53 kg Tiffanie Schwartz MEDICAL TECHNOLOGIST CHEMISTRY.WARHEAD MAINTENANCE SPECIALIST Work Phone: [facility] 2022 09:49-0500 Diastolic blood pressure 60 mm[Hg] Tiffanie Schwartz MEDICAL TECHNOLOGIST CHEMISTRY.WARHEAD MAINTENANCE SPECIALIST Work Phone: [facility] 2022 09:49-0500 Heart rate 82 /min Tiffanie Lana MEDICAL TECHNOLOGIST CHEMISTRY.WARHEAD MAINTENANCE SPECIALIST Work Phone: [facility] 2022 09:49-0500 Respiratory rate 16 /min Tiffanie Schwartz MEDICAL TECHNOLOGIST CHEMISTRY.WARHEAD MAINTENANCE SPECIALIST Work Phone: [facility] 2022 09:49-0500 SaO2% (BldA) [Mass fraction] 97 % Tiffanie Schwartz APRN.WARHEAD MAINTENANCE SPECIALIST Work Phone: [facility] 2022 09:49-0500 Systolic blood pressure 110 mm[Hg] Tiffanie Schwartz APRN.WARHEAD MAINTENANCE SPECIALIST Work Phone: [facility] 06-04-2022 10:38-0500 Body weight 91.9 kg Clarice Murillo MD Work Phone: [facility] 06-04-2022 10:38-0500 Diastolic blood pressure 78 mm[Hg] Clarice Murillo MD Work Phone: [facility] 06-04-2022 10:38-0500 Heart rate 86 /min Clarice Murillo MD Work Phone: [facility] 06-04-2022 10:38-0500 Respiratory rate 20 /min Clarice Murillo MD Work Phone: [facility] 06-04-2022 10:38-0500 Systolic blood pressure 122 mm[Hg] Clarice Murillo MD Work Phone: [facility] 11-30-2021 15:45-0400 Body weight 91.63 kg Clarice Murillo MD Work Phone: [facility] 11-30-2021 15:45-0400 Diastolic blood pressure 60 mm[Hg] Clarice Murillo MD Work Phone: [facility] 11-30-2021 15:45-0400 Heart rate 62 /min Clarice Murillo MD Work Phone: [facility] 11-30-2021 15:45-0400 Respiratory rate 14 /min Clarice Murillo MD Work Phone: [facility] 11-30-2021 15:45-0400 Systolic blood pressure 100 mm[Hg] Clarice Murillo MD Work Phone: [facility] Encounters Encounter Date Encounter Type Care Provider Facility Start: 02-22-2025 End: 02-22-2025 Subsequent hospital visit by physician Marisol [facility] Jose Monte Work Phone: Radiology Comment on above: Primary osteoarthrit is of right knee [M17.11] Start: 02-22-2025 End: 02-22-2025 ambulatory YNES TALAMANTES Facility:[facility] Start: 02-08-2025 End: 02-08-2025 Follow-up encounter Sidjustus Frank APRN.CNP Work Phone: [facility] Comment on above: Results Start: 02-05-2025 ambulatory CLARICE MURILLO Facil ity:[facility] Start: 02-05-2025 End: 02-05-2025 Subsequent hospital visit by physician Xr [facility] Jose Work Phone: Radiology Comment on above: Chronic pain of both shoulders [M25.511, G89.29, M25.512] Start: 02-05-2025 End: 02-05-2025 Office outpatient visit 25 minutes Clarice Murillo MD Work Phone: [facility] Comment on above: Essential hypertensi on, benign (Primary Dx); Abdominal aortic aneurysm (AAA) without rupture, unspecified part; Hyperlipidemia, unspecified hyperlipidemia type; Chronic pain of both shoulders; Neuropathy; Primary osteoarthritis of both shoulders; Pulmonary emphysema, unspecified emphysema type (HCC); Pedal edema Start: 02-05-2025 End: 02-05-2025 ambulatory CLARICE MURILLO Facility:[facility] Start: 01-30-2025 End: 01-30-2025 ambulatory KARLA CAMPOS Facility:[facility] Start: 11-19-2024 End: 11-19-2024 Refill Clarice Murillo MD Work Phone: [address] [place] [address] Comment on above: Refill Request Start: 11-13-2024 End: 11-13-2024 ambulatory Clarice Murillo Facility:[facility] Start: 11-10-2024 Non-patient / Non-visit Dr. Riky Li MD -[facility] Work Phone: Start: 11-09-2024 Non-patient / Non-visit Dr. Dennis hameed MD -[facility] Start: 11-08-2024 ambulatory Clarice Murillo Facilit y:[facility] Start: 11-08-2024 End: 11-10-2024 Evaluation and management of inpatient Dr. Riky Li MD -[facility] 3 Work Phone: Start: 11-08-2024 ambulatory Clarice Murillo Facilit y:[facility] Start: 11-08-2024 Non-patient / Non-visit Dr. Dennis hameed MD -[facility] Start: 11-08-2024 End: 11-08-2024 [facility] Start: 11-03-2024 End: 11-03-2024 Patient encounter procedure Jyothi Mosley APRN.WARHEAD MAINTENANCE SPECIALIST Work Phone: [facility] Comment on above: URI with cough and c ongestion (Primary Dx); COPD with acute exacerbation (HCC); Asthma with COPD with exacerbation (HCC) Start: 11-03-2024 End: 11-03-2024 ambulatory CLARICE MURILOL Facility:[facility] Start: 11-01-2024 End: 11-01-2024 Refill Francia Luna MD Work Phone: Pulmonary Medicine Comment on above: Refill Request Start: 09-24-2024 End: 09-24-2024 ambulatory FRANCIA LUNA Facility:[facility] Start: 09-24-2024 End: 09-24-2024 Patient encounter procedure Francia Luna MD Work Phone: Pulmonary Medicine Comment on above: COPD, mild (HCC) (Pr imary Dx); Lobular atelectasis; Former cigarette smoker Start: 09-07-2024 End: 09-07-2024 Refill Clarice Murillo MD Work Phone: [facility] [place] Comment on above: Refill Request Start: 08-27-2024 End: 08-27-2024 ambulatory FABIO NORIEGA Facility:[facility] Start: 08-15-2024 End: 08-15-2024 Orders Only Fabio Noriega MD Work Phone: Orthopaedics Comment on above: Bilateral shoulder p ain, unspecified chronicity (Primary Dx) Start: 08-01-2024 End: 08-01-2024 Office outpatient visit 25 minutes Karla Campuzano APRN.WARHEAD MAINTENANCE SPECIALIST Work Phone: [facility] Comment on above: Essential hypertensi on, benign (Primary Dx); Abdominal aortic aneurysm (AAA) without rupture, unspecified part (HCC); Hyperlipidemia, unspecified hyperlipidemia type; GERD without esophagitis; COPD with exacerbation (HCC); Neuropathy; Chronic pain of both shoulders; Mild intermittent asthma without complication; Elevated glucose; Dizziness; Screening for depression; Encounter for screening examination for other mental health and behavioral disorders Start: 08-01-2024 End: 08-01-2024 ambulatory [facility] Facility:[facility] Start: 07-24-2024 End: 07-24-2024 [facility] Facility:[facility] Start: 06-21-2024 End: 06-21-2024 ambulatory Adriel Vides RN Work Phone: [employer] Comment on above: community monitoring outreach (CDM-Telephonic outreach) Start: 05-24-2024 End: 05-24-2024 ambulatory Adriel Vides RN Work Phone: [employer] Comment on above: community monitoring outreach (CDM-Telephonic outreach/) Start: 05-04-2024 End: 05-04-2024 Refill Clarice Murillo MD Work Phone: [facility] Comment on above: Refill Request Start: 04-26-2024 End: 04-26-2024 ambulatory Adriel Vides RN Work Phone: [employer] Comment on above: community monitoring outreach (CDM-Telephonic outreach) Start: 04-25-2024 End: 04-25-2024 ambulatory Adriel Vides RN Work Phone: [employer] Comment on above: community monitoring outreach (CDM-Telephonic outreach) Start: 03-26-2024 End: 03-26-2024 ambulatory Adriel Vides RN Work Phone: [employer] Comment on above: community monitoring outreach (CDM-Telephonic outreach) Start: 03-21-2024 End: 03-21-2024 ambulatory [facility] Facility:[facility] Start: 03-21-2024 End: 03-21-2024 Patient encounter procedure Karla Campuzano MEDICAL TECHNOLOGIST CHEMISTRY.WARHEAD MAINTENANCE SPECIALIST Work Phone: [facility] [place] Comment on above: Essential hypertensi on, benign (Primary Dx); Hyperlipidemia, unspecified hyperlipidemia type; Abdominal aortic aneurysm (AAA) without rupture, unspecified part (HCC); GERD without esophagitis; COPD with exacerbation (HCC); Neuropathy; Chronic pain of both shoulders; Encounter for immunization Start: 03-14-2024 End: 03-14-2024 Telephone encounter Karla Justen MEDICAL TECHNOLOGIST CHEMISTRY.WARHEAD MAINTENANCE SPECIALIST Work Phone: [facility] [place] Comment on above: Results Start: 03-07-2024 End: 03-07-2024 ambulatory KARLA JAS TEJASAlbert Facility:[facility] Start: 02-24-2024 ambulatory Adriel Vides RN Work Phone: [employer] Comment on above: community monitoring outreach (CDM-Telephonic outreach) Start: 02-17-2024 Telephone encounter Clarice ellison MD Work Phone: [facility] [place] Comment on above: Patient Update Start: 01-26-2024 ambulatory Adriel Vides RN Work Phone: [employer] Comment on above: community monitoring outreach (CDM-Telephonic outreach) Start: 01-25-2024 Telephone encounter Karla Bc syed MEDICAL TECHNOLOGIST CHEMISTRY.WARHEAD MAINTENANCE SPECIALIST Work Phone: [facility] [place] Comment on above: Patient Update Start: 01-16-2024 End: 01-16-2024 Patient encounter procedure Karla Justen MEDICAL TECHNOLOGIST CHEMISTRY.WARHEAD MAINTENANCE SPECIALIST Work Phone: [facility] [place] Comment on above: Essential hypertensi on, benign [...] 12-26-2023 ambulatory Adriel Vides RN Work Phone: [employer] Comment on above: community monitoring outreach (CDM-Telephonic outreach) Start: 12-02-2023 Refill Samaria ValerioC Work Phone: Pulmonary Medicine Comment on above: Refill Request Start: 11-23-2023 ambulatory Adriel Vides RN Work Phone: [employer] Comment on above: community monitoring outreach (CDM-Telephonic outreach) Start: 11-21-2023 Refill Clarice araujo MD Work Phone: [address] [place] [address] Comment on above: Refill Request Start: 10-24-2023 ambulatory Adriel Vides RN Work Phone: [employer] Comment on above: community monitoring outreach (CDM-Telephonic outreach) Start: 10-07-2023 End: 10-07-2023 Patient encounter procedure Karla Campuzano APRN.CNP Work Phone: [facility] [place] Comment on above: Bronchitis (Primary [...] 09-14-2023 ambulatory Adriel Vides RN Work Phone: [employer] Comment on above: community monitoring outreach (CDM-Telephonic outreach/) Start: 07-04-2023 End: 07-04-2023 Office outpatient visit 10 minutes Samaria Lazcano PA-C Work Phone: Pulmonary Medicine Comment on above: Asthma-COPD overlap syndrome (Primary Dx); Lung nodules; Former cigarette smoker Start: 06-01-2023 ambulatory Adriel Vides RN Work Phone: [employer] Comment on above: community monitoring outreach (CDM-Telephonic outreach) Start: 05-13-2023 Refill Clarice araujo MD Work Phone: [facility] [place] Comment on above: Refill Request Start: 05-02-2023 ambulatory Adriel Vides RN Work Phone: [employer] Comment on above: community monitoring outreach (CDM-Telephonic outreach) Start: 03-29-2023 ambulatory Adriel Vides RN Work Phone: [employer] Comment on above: community monitoring outreach (CDM-Telephonic outreach) Start: 03-14-2023 End: 03-14-2023 Patient encounter procedure Karla Campuzano APRN.WARHEAD MAINTENANCE SPECIALIST Work Phone: [facility] Comment on above: COPD with exacerbati on (HCC) (Primary Dx); Essential hypertension, benign; Hyperlipidemia, unspecified hyperlipidemia type; Abdominal aortic aneurysm (AAA) without rupture, unspecified part (HCC); GERD without esophagitis; Acute pain of both shoulders; Neuropathy Start: 03-08-2023 End: 03-08-2023 Office outpatient visit 25 minutes Ibeth Paredes APRN.WARHEAD MAINTENANCE SPECIALIST Work Phone: Vascular Surgery Comment on above: Abdominal aortic ane urysm (AAA) without rupture, unspecified part (HCC) (Primary Dx); Peripheral arterial disease (HCC); Primary hypertension; Elevated HDL Start: 03-04-2023 End: 03-04-2023 Subsequent hospital visit by physician [facility] (I-Stat) Work Phone: Cat Scan Comment on above: 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) [I71.43] Start: 03-01-2023 Telephone encounter Samaria Lazcano PA-C Work Phone: Pulmonary Medicine Comment on above: Patient Update Start: 03-01-2023 End: 03-01-2023 Patient encounter procedure Ramses Jacinto MEDICAL TECHNOLOGIST CHEMISTRY.WARHEAD MAINTENANCE SPECIALIST Work Phone: [place] [facility] Comment on above: Procedure not susan d out (Primary Dx) Start: 02-23-2023 ambulatory Adriel Vides RN Work Phone: [employer] Comment on above: community monitoring outreach (CDM-Telephonic outreach/) Start: 01-31-2023 End: 02-01-2023 Evaluation and management of inpatient [facility] Facility:[facility] Start: 01-25-2023 ambulatory Adriel Vides RN Work Phone: [employer] Comment on above: community monitoring outreach (CDM-Telephonic outreach) Start: 01-24-2023 End: 01-24-2023 Admission to establishment Pac [place] 1 Work Phone: [facility] Start: 01-24-2023 End: 01-24-[facility]23 [facility] Work Phone: Pre [facility] Comment on [...] examination done Pac [place] 1 Work Phone: [facility] Work Phone: Start: 01-06-2023 End: 01-06-2023 Patient encounter procedure Samaria Lazcano PA-C Work Phone: Pulmonary Medicine Comment on above: Asthma with COPD wit h exacerbation (HCC) (Primary Dx); Lung nodules; Former cigarette smoker Start: 12-22-2022 ambulatory Adriel Vides RN Work Phone: [employer] Comment on above: community monitoring outreach (CDM-Telephonic outreach/) Start: 11-29-2022 ambulatory UNKNOWN PROVIDER Facili ty:[facility] Start: 11-29-2022 ambulatory UNKNOWN PROVIDER Facili ty:[facility] Start: 11-29-2022 End: 11-29-2022 Subsequent hospital visit by physician [facility] Work Phone: Cardiology Lab Comment on above: Encounter for screen ing for cardiovascular disorders [Z13.6] Start: 11-29-2022 End: 11-29-2022 Subsequent hospital visit by physician [facility] 2 Work Phone: Molecular Imaging Comment on above: Encounter for screen ing for cardiovascular disorders [Z13.6] Start: 11-26-2022 Telephone encounter Tosha cervantes RN Cardiology Lab Comment on above: Reminder Call Start: 11-25-2022 Refill Clarice araujo MD Work Phone: [address] [place] [address] Comment on above: Refill Request Start: 11-19-2022 ambulatory Adriel Vides RN Work Phone: [employer] Comment on above: community monitoring outreach [...] Telephone encounter Clarice ellison MD Work Phone: [facility] Comment on above: question on CT incid ental finding Start: 10-21-2022 ambulatory Adriel Vides RN Work Phone: [employer] Comment on above: community monitoring outreach (CDM-Telephonic outreach) Start: 10-13-2022 End: 10-13-2022 Subsequent hospital visit by physician [facility] (I-Stat) Work Phone: Cat Scan Comment on above: 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) [I71.43] Start: 10-11-2022 End: 10-11-2022 Patient encounter procedure Fabio Noriega MD Work Phone: Orthopaedics Comment on above: Chronic pain of both shoulders (Primary Dx); Acute pain of both shoulders; Primary osteoarthritis of both shoulders Start: 10-11-2022 End: 10-11-2022 Subsequent hospital visit by physician Marisol [facility] [place] Work Phone: Radiology Comment [...] 08-19-2022 ambulatory Adriel Vides RN Work Phone: [employer] Comment on above: community monitoring outreach (CDM-Telephonic outreach) Start: 08-12-2022 Refill Clarice araujo MD Work Phone: [facility] [place] Comment on above: Refill Request Start: 07-16-2022 ambulatory Adriel Vides RN Work Phone: [employer] Comment on above: community monitoring outreach (CDM-Telephonic outreach) Start: 07-14-2022 Telephone encounter Francia Luna MD Work Phone: Pulmonary Medicine Comment on above: Results (Chest CT) Start: 07-08-2022 End: 07-08-2022 Subsequent hospital visit by physician [facility] (I-Stat) Work Phone: Cat Scan Comment on above: Lung nodules [R91.8] Start: 07-06-2022 End: 07-06-2022 Patient encounter procedure Francia Luna MD Work Phone: Pulmonary Medicine Comment on above: 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); Lung nodules; Former cigarette smoker Start: 2022 Telephone encounter Tiffanie marie APRN.WARHEAD MAINTENANCE SPECIALIST Work Phone: [facility] [place] Comment on above: clarify doxycycline rx Start: 2022 End: 2022 Patient encounter procedure Tiffanie Schwartz APRN.WARHEAD MAINTENANCE SPECIALIST Work Phone: [facility] [place] Comment on above: Acute exacerbation o f chronic obstructive pulmonary disease (COPD) (HCC) (Primary Dx) Start: 06-11-2022 ambulatory Adriel Mahogany MIRANDA Work Phone: [employer] Comment on above: community monitoring outreach (CDM telephonic outreach/) Start: 06-09-2022 Telephone encounter Jyothi Mosley APRN.WARHEAD MAINTENANCE SPECIALIST Work Phone: [facility] Comment on above: Results Start: 06-08-2022 End: 06-08-2022 Subsequent hospital visit by physician Xr [facility] [place] Work Phone: Radiology Comment on above: Acute cough [R05.1] Start: 06-04-2022 End: 06-04-2022 Patient encounter procedure Clarice Murillo MD Work Phone: [facility] [place] Comment on above: Essential hypertensi on, benign (Primary Dx); Hyperlipidemia, unspecified hyperlipidemia type; Chronic obstructive pulmonary disease, unspecified COPD type (HCC); Osteoarthritis of lumbar spine, unspecified spinal osteoarthritis complication status; Vitamin D deficiency; Benign prostatic hyperplasia, unspecified whether lower urinary tract symptoms present; Need for influenza vaccination; Acute pain of left shoulder; Left hip pain Start: 04-30-2022 Refill Clarice araujo MD Work Phone: [facility] [place] Comment on above: Refill Request Start: 04-12-2022 ambulatory Marianne alexis RN Work Phone: [employer] Comment on above: Community Monitoring Outreach (CDM Telephonic.) Start: 03-15-2022 ambulatory Marianne alexis RN Work Phone: [facility] Start: 03-15-2022 Follow-up encounter Marianne Balderas RN Work Phone: [employer] Management Comment on above: Community Monitoring Outreach (CDM Telephonic Follow Up) Start: 02-16-2022 ambulatory Marianne alexis RN Work Phone: [facility] Start: 02-16-2022 Follow-up encounter Marianne Balderas RN Work Phone: [employer] Comment on above: Community Monitoring Outreach (Telephonic Follow Up) Start: 02-15-2022 ambulatory Marianne alexis RN Work Phone: [facility] Start: 02-15-2022 Follow-up encounter Marianne Balderas RN Work Phone: [employer] Comment on above: Community Monitoring Outreach (Telephonic Follow Up) Start: 02-04-2022 Refill Clarice araujo MD Work Phone: [facility] [place] Comment on above: Refill Request Start: 01-19-2022 ambulatory Marianne alexis RN Work Phone: [facility] Start: 01-19-2022 Follow-up encounter Marianne Balderas RN Work Phone: [employer] Comment on above: Community Monitoring Outreach (Telephonic Follow Up) Start: 12-03-2021 Telephone encounter Clarice ellison MD Work Phone: [facility] [place] Comment on above: Results Start: 11-30-2021 End: 11-30-2021 Patient encounter procedure Clarice Murillo MD Work Phone: [facility] [place] Comment on above: Hyperlipidemia, unsp ecified hyperlipidemia type (Primary Dx); BENIGN HYPERTENSION; Abdominal aortic aneurysm without rupture (HCC); Chronic obstructive pulmonary disease, unspecified COPD type (HCC); Vitamin D deficiency; Osteoarthritis of lumbar spine, unspecified spinal osteoarthritis complication status; Benign prostatic hyperplasia, unspecified whether lower urinary tract symptoms present; Vertebrobasilar artery syndrome Start: 11-02-2021 [facility] Start: 11-02-2021 Follow-up encounter Marianne Balderas RN [employer] Comment on above: Community Monitoring Outreach (Telephonic Follow Up) Start: 10-05-2021 [facility] Start: 10-05-2021 Follow-up encounter Marianne Balderas upper lining cementerFeed Crusher Operator Management Comment on above: Community Monitoring Outreach (Telephonic Follow Up) Start: 02-12-2018 End: 02-12-2018 [facility] Procedures Date Procedure Procedure Detail Performing Clinician Start: 11-08-2024 Plain x-ray of hand Dr. Clarice Murillo MD Work Phone: Start: 11-08-2024 Plain x-ray of wrist Dr Collin Murillo MD Work Phone: Start: 11-08-2024 Gram stain microscopy D jason Murillo MD Work Phone: Start: 11-03-2024 COVID-19 MOLECULAR (POC) Jyothi Mosley MEDICAL TECHNOLOGIST CHEMISTRY.WARHEAD MAINTENANCE SPECIALIST Work Phone: Start: 08-01-2024 Adult depression scr eening assessment Karla Campuzano MEDICAL TECHNOLOGIST CHEMISTRY.WARHEAD MAINTENANCE SPECIALIST Work Phone: Start: 03-04-2023 Ct angio abd&plvis [...] exam ches t 2 views Ramses Jacinto MEDICAL TECHNOLOGIST CHEMISTRY.WARHEAD MAINTENANCE SPECIALIST Work Phone: Start: 06-04-2022 INFLUENZA SEASONAL QUADRIVALENT HIGH DOSE AGE 65+ Clarice Murillo MD Work Phone: Plan of Treatment Date Care Activity Detail Author Start: 01-31-2028 Diabetes Screening Diabetes Screenin [facility] Start: 07-24-2027 Diabetes Screening Diabetes Screenin [facility] Start: 03-07-2027 Diabetes Screening Diabetes Screenin g [facility] Start: 07-29-2026 Diabetes Screening Diabetes Screenin g [facility] Start: 02-01-2026 DIABETES SCREEN DIABETES SCREEN [facility] Start: 02-01-2026 Diabetes Screening Diabetes Screenin g [facility] Start: 12-02-2025 DIABETES SCREEN DIABETES SCREEN [facility] Start: 08-09-2025 End: 08-09-2025 Patient encounter procedure [facility] [place] Comment on above: transfer care/6 duane h follow up Start: 08-01-2025 Anxiety Screening Anxiety Screening [facility] Start: 08-01-2025 Covid-19 Vaccine ( season) Covid-19 Vaccine () [facility] Comment on above: Postponed from 03/18 (Declined at this time) Start: 08-01-2025 Depression Screening Depression Scre elias [facility] Start: 08-01-2025 RSV Vaccine (1 - 1-d ose 75+ series) RSV Vaccine (1 - 1-dose 75+ series) [facility] Comment on above: Postponed from 06/15 (Declined at this time) Start: 08-01-2025 Shingrix Vaccine (1 of 2) Shingrix Vaccine (1 of 2) [facility] Comment on above: Postponed from 06/15 (Declined at this time) Start: 05-20-2025 DIABETES SCREEN DIABETES SCREEN [facility] Start: 04-02-2025 End: 04-02-2025 Patient encounter procedure 04/02/2025 2:15 PM EDT Office Visit Pulmonary Medicine [address] [place], [place] [id number] Francia Luna MD [address] [place], [place] [id number] 6 month f/u Pulmonary Medicine Comment on above: 6 month f/u Start: 03-18-2025 Influenza vaccination Influenza Vacc ine (#1) [facility] Start: 02-22-2025 End: 02-22-2025 Patient encounter procedure 02/22/2025 1:00 PM EDT Office Visit Orthopaedics [address] [place], [place] [id number] Ynes Talamantes PA-C [address] [place], [place] [id number] Chronic pain of both shoulders [M25.511, G89.29, M25.512] Orthopaedics Comment on above: Chronic pain of both shoulders [M25.511, G89.29, M25.512] Start: 02-05-2025 End: 02-05-2025 Patient encounter procedure 02/05/2025 3:00 PM EDT Office Visit Family Medicine [place] [address] [place] [address] Clarice Murillo MD [address] [place] [address] 6 month follow up and labs [facility] Comment on above: 6 month follow up an d labs Start: 01-29-2025 End: 04-30-2025 Comprehensive metabolic 2000 panel - Serum or Plasma COMPREHENSIVE METABOLIC PANEL Lab Routine Hyperlipidemia, unspecified hyperlipidemia type Expected: 01/29/2025, Expires: 04/30/2025 [facility] Work Phone: Comment on above: Expected: 01/29/2025 , Expires: 04/30/2025 Start: 01-29-2025 End: 04-30-2025 Hemoglobin A1c in Blood HEMOGLOBIN A1C Lab Routine Elevated glucose Expected: 01/29/2025, Expires: 04/30/[address] [facility] Comment on above: Expected: 01/29/2025 , Expires: 04/30/2025 Start: 01-29-2025 End: 04-30-2025 Lipid 1996 panel - Serum or Plasma LIPID PANEL BASIC Lab Routine Hyperlipidemia, unspecified hyperlipidemia type Expected: 01/29/2025, Expires: 04/30/[address] [facility] Comment on above: Expected: 01/29/2025 , Expires: 04/30/2025 Start: 12-01-2024 DIABETES SCREEN DIABETES SCREEN [facility] Start: 11-10-2024 Patient discharge [facility] Start: 11-10-2024 Inhalation therapy procedure [facility] Start: 11-08-2024 Assessment of risk o f venous thromboembolism [facility] Start: 11-08-2024 Incentive spirometry [facility] Start: 11-08-2024 Insertion of cathete r into peripheral vein [facility] Start: 11-08-2024 Measuring intake and output [facility] Start: 11-08-2024 Providing care accor ding to standard [facility] Start: 11-08-2024 Provision of activit y privileges [facility] Start: 11-08-2024 Referral to occupati onal therapist [facility] Start: 11-08-2024 Referral to service [facility] Start: 11-08-2024 [facility] Start: 11-08-2024 Verification routine [facility] Start: 11-08-2024 Admission procedure [facility] Start: 11-08-2024 Elevation of affecte d extremity [facility] Start: 11-08-2024 End: 11-08-2024 Microbial culture, body fluid [facility] Start: 11-08-2024 Anaerobic Culture Anaerobic Culture [facility] Start: 09-24-2024 End: 09-24-2024 Patient encounter procedure 09/24/2024 10:00 AM EDT Office Visit Pulmonary Medicine [address] [place] [address] Francia Luna MD [address] [facility] [place] [address] Follow up COPD Pulmonary Medicine Comment on above: Follow up COPD Start: 08-27-2024 End: 08-27-2024 Patient encounter procedure 08/27/2024 2:30 PM EST Office Visit Orthopaedics [address] [place] [address] Fabio Noriega MD [address] [facility] [place] [address] Shoulder Pain (Cortizone Injection)/Last visit 10/11/22) Orthopaedics Comment on above: Shoulder Pain (Corti zone Injection)/Last visit 10/11/22) Start: 08-01-2024 End: 08-01-2024 Patient encounter procedure 08/01/2024 2:40 PM EST Office Visit Family Medicine [place] [address] [facility] [place] [address] Karla Campuzano APRN.WARHEAD MAINTENANCE SPECIALIST [address] [facility] [place] [address] 4 month follow up with labs [facility] [place] Comment on above: 4 month follow up wi labs Start: 07-19-2024 End: 07-19-2024 Patient encounter procedure 07/19/2024 1:15 PM EST Office Visit Pulmonary Medicine [address] [place] [address] Francia Luna MD [address] [place] [address] 6 MTH F/U COPD Pulmonary Medicine Comment on above: 6 MTH F/U COPD Start: 07-18-2024 Advance Directive Discussion Advance Directive Discussion [facility] Start: 07-18-2024 End: 10-17-2024 Comprehensive metabolic 2000 panel - Serum or Plasma COMPREHENSIVE METABOLIC PANEL Lab Routine Hyperlipidemia, unspecified hyperlipidemia type Expected: 07/18/2024, Expires: 10/17/2024 [facility] Work Phone: Comment on above: Expected: 07/18/2024 , Expires: 10/17/2024 Start: 07-18-2024 End: 10-17-2024 Lipid 1996 panel - Serum or Plasma LIPID PANEL BASIC Lab Routine Hyperlipidemia, unspecified hyperlipidemia type Expected: 07/18/2024, Expires: 10/17/[address] [facility] Comment on above: Expected: 07/18/2024 , Expires: 10/17/2024 Start: 07-18-2024 Medicare Advantage Annual Wellness Visit Medicare Advantage Annual Wellness Visit [facility] Start: 05-12-2024 DIABETES SCREEN DIABETES SCREEN [facility] Start: 04-08-2024 End: 07-08-2024 Comprehensive metabolic 2000 panel - Serum or Plasma COMP METABOLIC PANEL Lab Routine Hyperlipidemia, unspecified hyperlipidemia type Expected: 04/08/2024, Expires: 07/08/2024 [facility] Work Phone: Comment on above: Expected: 04/08/2024 , Expires: 07/08/2024 Start: 04-08-2024 End: 07-08-2024 Lipid 1996 panel - Serum or Plasma LIPID PANEL BASIC Lab Routine Hyperlipidemia, unspecified hyperlipidemia type Expected: 04/08/2024, Expires: 07/08/2024 [facility] Work Phone: Comment on above: Expected: 04/08/2024 , Expires: 07/08/2024 Start: 03-21-2024 End: 03-21-2024 Patient encounter procedure 03/21/2024 1:40 PM EDT Office Visit [facility] [place] [address] [facility] [place] [address] Karla Campuzano, ROSS.WARHEAD MAINTENANCE SPECIALIST [address] [facility] [place] [address] 3 month follow up [facility] [place] Comment on above: 3 month follow up Start: 03-18-2024 Covid-19 Vaccine () Covid-19 Vaccine () [facility] Start: 03-18-2024 Covid-19 Vaccine () Covid-19 Vaccine () [facility] Start: 03-18-2024 Influenza vaccination Influenza Vacc ine (#1) [facility] Start: 01-16-2024 End: 01-16-2024 Patient encounter procedure 01/16/2024 1:00 PM EDT Office Visit [facility] Medicine [place] [address] [facility] [place] [address] Karla Campuzano, MEDICAL TECHNOLOGIST CHEMISTRY.WARHEAD MAINTENANCE SPECIALIST [address] [facility] [place] [address] 3 month follow up [facility] Medicine [place] Comment on above: 3 month follow up Start: 01-03-2024 End: 01-03-2024 Patient encounter procedure 01/03/2024 11:00 AM EDT Office Visit Pulmonary Medicine [address] [place] [address] Francia Luna MD [address] [place] [address] six month follow up Pulmonary Medicine Comment on above: six month follow up Start: 09-08-2023 End: 03-08-2024 US ABD AORTA COMPLETE VAS LAB US ABD AORTA COMPLETE VAS LAB Vascular Lab Routine Abdominal aortic aneurysm (AAA) without rupture, unspecified part (HCC) Expected: 09/08/2023, Expires: 03/08/2024 [facility] Work Phone: Comment on above: Expected: 09/08/2023 , Expires: 03/08/2024 Start: 07-18-2023 Advance Directive Discussion Advance Directive Discussion [facility] Start: 07-18-2023 Behavioral Health Screening Behavioral Health Screening [facility] Start: 07-18-2023 Depression Assessment Depression Ass essment [facility] Start: 03-18-2023 Covid-19 Vaccine () Covid-19 Vaccine () [facility] Start: 03-18-2023 Influenza vaccination [facility] Start: 01-24-2023 End: 03-26-2023 CONFIRM BLOOD TYPE CONFIRM BLOOD TYPE Blood Bank Routine Pre-operative examination Expected: 01/24/2023, Expires: 03/26/2023 [facility] Work Phone: Comment on above: Expected: 01/24/2023 , Expires: 03/26/2023 Start: 12-02-2022 End: 02-01-2023 CBC W Auto Differential panel - Blood CBC + DIFF Lab Routine Hyperlipidemia, unspecified hyperlipidemia type Expected: 12/02/2022 (Approximate), Expires: 02/01/2023 [facility] Work Phone: Comment on above: Expected: 12/02/2022 (Approximate), Expires: 02/01/2023 Start: 12-02-2022 End: 02-01-2023 Comprehensive metabolic 2000 panel - Serum or Plasma COMP METABOLIC PANEL Lab Routine Hyperlipidemia, unspecified hyperlipidemia type Expected: 12/02/2022 (Approximate), Expires: 02/01/2023 [facility] Work Phone: Comment on above: Expected: 12/02/2022 (Approximate), Expires: 02/01/2023 Start: 12-02-2022 End: 02-01-2023 Lipid 1996 panel - Serum or Plasma LIPID PANEL BASIC Lab Routine Hyperlipidemia, unspecified hyperlipidemia type Expected: 12/02/2022 (Approximate), Expires: 02/01/2023 [facility] Work Phone: Comment on above: Expected: 12/02/2022 (Approximate), Expires: 02/01/2023 Start: 07-18-2022 ADVANCE DIRECTIVE DISCUSSION ADVANCE DIRECTIVE DISCUSSION [facility] Start: 07-18-2022 DEPRESSION ASSESSMENT DEPRESSION ASS ESSMENT [facility] Start: 03-18-2022 Influenza vaccination INFLUENZA (#1) [facility] Start: 09-30-2021 COVID-19 VACCINE (4 - Booster for Moderna series) COVID-19 VACCINE (4 - Booster for Moderna series) [facility] Start: 07-28-2021 COVID-19 VACCINE (4 - Booster for Moderna series) COVID-19 VACCINE (4 - Booster for Moderna series) [facility] Start: 07-28-2021 COVID-19 VACCINE (4 - Moderna series) COVID-19 VACCINE (4 - Moderna series) [facility] Start: 07-18-2021 ADVANCE DIRECTIVE DISCUSSION ADVANCE DIRECTIVE DISCUSSION [facility] Start: 07-18-2021 DEPRESSION ASSESSMENT DEPRESSION ASS ESSMENT [facility] Start: 01-31-2021 COVID-19 VACCINE (3 - Booster for Moderna series) COVID-19 VACCINE (3 - Booster for Moderna series) [facility] Start: 2012 RSV Vaccine (1 - 1-d ose 75+ series) RSV Vaccine (1 - 1-dose 75+ series) [facility] Start: 02-10-2012 Urine microalbumin profile [facility] Start: 1997 RSV Vaccine (1 - 1-d ose 60+ series) RSV Vaccine (1 - 1-dose 60+ series) [facility] Start: 1987 SHINGRIX VACCINE (1 of 2) SHINGRIX VACCINE (1 of 2) [facility] Start: 1955 Anxiety Screening Anxiety Screening [facility] Start: 1955 Depression Screening Depression Scre ening [facility] Anion gap in Serum o r Plasma [facility] Bacteria identified in Unspecified specimen by Anaerobe culture [facility] BUN/Creatinine ratio [facility] Calcium [Mass/volume ] in Serum or Plasma [facility] Carbon dioxide, tota l [Moles/volume] in Central venous blood [facility] Creatinine [Mass/vol ume] in Serum or Plasma [facility] End: 08-05-2023 Ct thorax w/o contrast material CT CHEST WO IVC Radiology Routine Lung nodules 1 Occurrences starting 07/06/2022 until 08/05/2023 [facility] Work Phone: Comment on above: 1 Occurrences starti ng 07/06/2022 until 08/05/2023 Erythrocyte mean corpuscular volume determination [facility] Glucose [Mass/volume ] in Serum or Plasma [facility] Hematocrit [Volume Fraction] of Blood [facility] Hemoglobin [Mass/vol ume] in Blood [facility] Leukocytes [#/volume ] in Blood [facility] Mean corpuscular hemoglobin concentration determination [facility] Mean corpuscular hemoglobin determination [facility] Measurement of renal function [facility] Neutrophil count [facility] Neutrophil percent differential count [facility] Patient referral [facility] Work Phone: Platelets [#/volume] in Blood [facility] Potassium measurement [facility] Red blood cell count [facility] Red cell distributio n width determination [facility] Serum chloride measurement [facility] Sodium measurement [facility] Urea nitrogen [Mass/volume] in Serum or Plasma [facility] XR Knee - right 4 Views XR KNEE GENERAL 4V AP BOTH/PA BOTH/LAT/MERC RIGHT Radiology Routine Primary osteoarthritis of right knee 02/22/2025 2:04 PM EDT [facility] Work Phone: End: 09-14-2025 XR Shoulder - left 3 Views XR SHOULDER GENERAL 3V OR MORE AP/TRUE AP/OTHER LEFT Radiology Routine Bilateral shoulder pain, unspecified chronicity 1 Occurrences starting 08/15/2024 until 09/14/2025 [facility] Work Phone: Comment on above: 1 Occurrences starti ng 08/15/2024 until 09/14/2025 End: 03-07-2026 XR Shoulder - left 3 Views XR SHOULDER GENERAL 3V OR MORE AP/TRUE AP/OTHER LEFT Radiology Routine Chronic pain of both shoulders 1 Occurrences starting 02/05/2025 until 03/07/[address] [facility] Comment on above: 1 Occurrences starti ng 02/05/2025 until 03/07/2026 XR Shoulder - left 3 Views XR SHOULDER GENERAL 3V OR MORE AP/TRUE AP/OTHER LEFT Radiology Routine Chronic pain of both shoulders 02/05/2025 4:07 PM EDT [facility] End: 09-14-2025 XR Shoulder - right 3 Views XR SHOULDER GENERAL 3V OR MORE AP/TRUE AP/OTHER RIGHT Radiology Routine Bilateral shoulder pain, unspecified chronicity 1 Occurrences starting 08/15/2024 until 09/14/[address] [facility] Comment on above: 1 Occurrences starti ng 08/15/2024 until 09/14/2025 End: 03-07-2026 XR Shoulder - right 3 Views XR SHOULDER GENERAL 3V OR MORE AP/TRUE AP/OTHER RIGHT Radiology Routine Chronic pain of both shoulders 1 Occurrences starting 02/05/2025 until 03/07/2026 [facility] Work Phone: Comment on above: 1 Occurrences starti ng 02/05/2025 until 03/07/2026 XR Shoulder - right 3 Views XR SHOULDER GENERAL 3V OR MORE AP/TRUE AP/OTHER RIGHT Radiology Routine Chronic pain of both shoulders 02/05/2025 4:07 PM EDT [facility] End: 11-05-2023 XR SHOULDER GENERAL 3V OR MORE AP/TRUE AP/OTHER LEFT XR SHOULDER GENERAL 3V OR MORE AP/TRUE AP/OTHER LEFT Radiology Routine Bilateral shoulder pain, unspecified chronicity 1 Occurrences starting 10/06/2022 until 11/05/2023 [facility] Work Phone: Comment on above: 1 Occurrences starti ng 10/06/2022 until 11/05/2023 End: 11-05-2023 XR SHOULDER GENERAL 3V OR MORE AP/TRUE AP/OTHER RIGHT XR SHOULDER GENERAL 3V OR MORE AP/TRUE AP/OTHER RIGHT Radiology Routine Bilateral shoulder pain, unspecified chronicity 1 Occurrences starting 10/06/2022 until 11/05/2023 [facility] Work Phone: Comment on above: 1 Occurrences starti ng 10/06/2022 until 11/05/2023 [facility] Immunizations Immunization Date Immunization Notes Care Provider Wilberto real 03-21-2024 influenza, high dose seasonal, preservative-free Karla Camposf MEDICAL TECHNOLOGIST CHEMISTRY.WARHEAD MAINTENANCE SPECIALIST Work Phone: [facility] 03-21-2024 influenza virus vacc ine, unspecified formulation Clarice Murillo MD Work Phone: [facility] 07-08-2023 influenza (HD-IIV4) vaccine, age 65+ yr, high dose, quadrivalent, PF (FLUZONE HIGH-DOSE) Adriel Vides RN Work Phone: [facility] 07-08-2023 influenza virus vacc ine, unspecified formulation Karla Campuzano MEDICAL TECHNOLOGIST CHEMISTRY.WARHEAD MAINTENANCE SPECIALIST Work Phone: [facility] 06-04-2022 influenza, high-dose , quadrivalent vaccine (FLUZONE HIGH DOSE QUADRIVALENT) Clarice Murillo MD Work Phone: [facility] 06-04-2022 influenza virus vacc ine, unspecified formulation Adriel Vides RN Work Phone: [facility] 06-02-2021 COVID-19 original vaccine, full dose, monovalent (MODERNA) Adriel Vides RN Work Phone: [facility] 05-29-2021 influenza, high-dose , quadrivalent vaccine (FLUZONE HIGH DOSE QUADRIVALENT) Marianne Balderas RN [facility] 09-03-2020 COVID-19 vaccine, fu ll dose (MODERNA) Marianne Balderas RN [facility] 08-06-2020 COVID-19 vaccine, fu ll dose (MODERNA) Marianne Balderas RN [facility] 05-29-2020 influenza, high-dose , quadrivalent vaccine (FLUZONE HIGH DOSE QUADRIVALENT) Marianne Balderas RN [facility] 04-16-2019 influenza, high dose seasonal, preservative-free Marianne Balderas RN [facility] 05-22-2018 influenza, high dose seasonal, preservative-free Marianne Balderas RN [facility] 04-04-2018 influenza, injectabl e, quadrivalent, preservative free Dr. Clarice Murillo MD Work Phone: [facility] 03-31-2017 influenza, high dose seasonal, preservative-free Marianne Balderas RN [facility] 06-28-2016 influenza, high dose seasonal, preservative-free Marianne Balderas RN [facility] 06-17-[address] Clarice Murillo MD Work Phone: [facility] 06-25-2015 influenza, high dose seasonal, preservative-free Marianne Balderas RN [facility] 06-25-2015 pneumococcal conjuga te vaccine, 13 valent Marianne Balderas RN [facility] 05-13-2014 influenza, seasonal, injectable Marianne Balderas RN [facility] Work Phone: 05-21-2013 influenza virus vacc ine, unspecified formulation Marianne Balderas RN [facility] 05-22-2012 influenza virus vacc ine, unspecified formulation Marianne Balderas RN [facility] 02-09-2012 tetanus and diphther ia toxoids, adsorbed, preservative free, for adult use (2 Lf of tetanus toxoid and 2 Lf of diphtheria toxoid) Marianne Balderas RN [facility] 04-22-2010 influenza virus vacc ine, unspecified formulation Marianne Balderas RN [facility] 04-30-2009 influenza virus vacc ine, unspecified formulation Marianne Balderas RN [facility] Work Phone: 04-17-2006 pneumococcal polysaccharide vaccine, 23 valent Marianne Balderas RN [facility] Payers Date Payer Category Payer Self-pay 2022 Medicare (Managed Care) PRIMETIM E [id number] 2022 Unknown [id number] 2010 Unknown ASSURED LIFE ASS URED LIFE MEDICARE SUPPLEMENT [id number] 2010-Present [phone] [address] [place] [address] Indemnity [id number] 2010 Unknown [id number] 2002 Medicare MEDICARE MEDICAR E A AND B [id number] 2002-Present [phone] [place] [address] Medicare [id number] 2002 Medicare MEDICARE MEDICAR E A AND B [id number] 2002-Present [phone] [place] [id number] Medicare [id number] Unknown [id number] Unknown COMMERCIAL OTHER [id number] Unknown [id number] 62 Unknown [id number] 62 Unknown [id number] 62 Unknown [id number] 62 Unknown [id number] 62 Unknown [id number] 62 Unknown [id number] 62 Unknown [id number] 62 Social History Date Type Detail Facility Start: 08-01-2018 End: 08-01-2024 Tobacco smoking status NHIS Ex-smoker [facility] Start: 1959 End: 10-30-1990 History of tobacco use Current smoker [facility] Start: 1959 End: 10-30-1990 History of tobacco use Cigarette Smoker [facility] Start: 05-29-2021 End: 02-22-2025 Alcohol intake Current non-drinker of alcohol (finding) [facility] Start: 08-01-2018 End: 06-04-2022 Tobacco Comment Multiple 4-5 year quits during smoking career. [facility] Start: 1935 Sex Assigned At Male C [facility] Work Phone: Start: 11-20-2021 End: 06-08-2022 Exposure to SARS-CoV-2 (event) Not sure [facility] Start: 08-01-2018 End: 11-29-2022 Cigarettes smoked current (pack per day) - Reported [address] [facility] Work Phone: Start: 08-01-2018 End: 08-01-2024 Tobacco use and exposure Smokeless tobacco non-user [facility] Work Phone: Start: 11-29-2022 End: 01-24-2023 Tobacco use panel [facility] Work Phone: Start: 06-18-2012 Adult Depression Screening Assessment [address] [facility] Work Phone: Start: 07-25-2017 Gender identity Identifies as male gender (finding) [facility] Work Phone: Start: 07-25-2017 Sexual orientation Heterosexual (fin ding) [facility] Work Phone: Start: 11-08-2024 Tobacco smoking stat us LAIS Never smoked tobacco (finding) [facility] Start: 11-08-2024 Rare Rare [facility] Start: 11-08-2024 None None [facility] Start: 06-28-2018 Spouse/ Significant Other Spouse/ Significant Other [facility] Start: 11-08-2024 Non-smoker Non-smoker [facility] Start: 11-10-2024 Sex Male (finding) [facility] Medical Equipment Procedure Code Equipment Code Equipment Origin al Text Equipment Identifier Dates Excluder Conform able Aaa Endoprostesis 32mm X 14.5mm X [id number] Start: 01-31-2023 Conform Aaa Capitation [id number] tart: 01-31-2023 Excluder Stent E npros Excdr Ibc 23x12 [id number] Start: 01-31-2023 Excluder Stent E npros Excdr Hc [id number] Start: 01-31-2023 Graft Excluder 2 7mm 21.5-25mm Cartwright-Derek Nitinol Fep 10cm Endovascular Stent - [id number] Start: 01-31-2023 Graft Excluder 2 7mm 21.5-25mm Cartwright-Derek Nitinol Fep 10cm Endovascular Stent - [id number] Start: 01-31-2023 2-Pc Uni Perla Capitation [...] Facility 11-10-2024 Functional status Ambulates;Bath room Privilege [facility] Work Phone: 02-01-2023 Are you deaf, or do you have serious difficulty hearing No 02/01/2023 10:19 AM Jey Pearson, RUBEN No [facility] 02-01-2023 Are you blind, or do you have serious difficulty seeing, even when wearing glasses No 02/01/2023 10:19 AM Jey Pearson, RUBEN No [facility] 02-01-2023 Do you have serious difficulty walking or climbing stairs No 02/01/2023 10:19 AM Jey Pearson, RUBEN No [facility] 02-01-2023 Do you have difficul ty dressing or bathing No 02/01/2023 10:19 AM Jey Pearson, RUBEN No [facility] 02-01-2023 Because of a physica l, mental, or emotional condition, do you have difficulty doing errands alone such as visiting a physician's office or shopping No 02/01/2023 10:19 AM EDT Jey Ahuja, RUBEN No [facility] Mental Status Date Assessment Result Facility 11-10-2024 Cognitive function Voice/Name [facility] Work Phone: 12-24-2014 Because of a physica l, mental, or emotional condition, do you have serious difficulty concentrating, remembering, or making decisions No 12/24/2014 10:18 AM EDT Marianne Escobar MA No [facility] Clinical Notes 07-09-2014 to 02-22-2025 Telephone Encounter - Korin Calixto MA - 02/08/2025 2:45 PM EDTTelephone Encounter - Korin Calixto MA - 02/08/2025 2:45 PM EDTTelephone Encounter - Sid Frank APRN.CNP - 02/08/2025 9:12 AM EDT Note Date & Type Note Facility 02-22-2025 Note HNO ID: [id number] Author: YNES TALAMANTES PA-C Service: ? Author Type: Physician Business Broker Type: Progress Notes Filed: 02/22/2025 13:42 Note Text: Ynes Talamantes PA-C Department of Orthopaedics Orthopaedics [address] [facility] [address] Dept: [phone] Dept February 22, 2025 CHIEF COMPLAINT: Pain [...] (M17.11) - Chronic right knee OA, likely [id number]. - Ordered new X-rays of the right [...] these instructions. Informed Consent Consent Obtained: Verbal Hunter Protocol A moment to CARE was completed. [...] visible. Medications requ (more content not included)... [facility] 02-22-2025 Note HNO ID: [id number] Author: MARY WAGNER MA Service: ? Author Type: Final Cleaner Type: Progress Notes Filed: 02/22/2025 13:42 Note Text: AMB ROOMING INTAKE FLOWSHEET DATA Pain Pain Level: 2 (as high as 10) Pain Location: (bilateral shoulders) Description: Aching, Sharp, Dull Duration Amount of Time: (ongoing) Frequency: Continuous Intervention/Comfort measure: Medication [facility] 02-08-2025 Telephone encounter Note Call to pt and notified him of results and recommendations below from Provider. Pt verbalized understanding. Korin Calixto MA [facility] 02-08-2025 Miscellaneous Notes Call to pt [...] Sid Frank APRN.CNP documented in this encounter [facility] 02-08-2025 Telephone encounter Note Please let the patient know that the xray of his shoulders show advanced arthritis present in both. Recommendation is to continue with his upcoming appointment with orthopedics to see if they can provide an intervention. Sid Frank APRN.CNP [facility] 02-05-2025 History of Presen t illness [...] PATIENT PRESENTS WITH AN IMPLANTABLE OR ATTACHED HUMAN RESOURCES BENEFITS SPECIALIST: No RADIOLOGY DEPARTMENT: General X-ray: Exam(s) Completed: Upper Extremity X-Ray(s): Shoulder, AP / TRUE AP / AXILLARY bilateral PERIPHERAL IV DATA: Not applicable SIGNED BY: RT Noam(R) February 05, 2025 4:04 PM documented in this encounter [facility] 02-05-2025 Note HNO ID: [id number] Author: ALFONSO PORTILLO RT(R) Service: ? Author Type: Transmission Rebuilder Type: Progress Notes Filed: 02/05/2025 16:05 Note [...] PATIENT PRESENTS WITH AN IMPLANTABLE OR ATTACHED HUMAN RESOURCES BENEFITS SPECIALIST: No RADIOLOGY DEPARTMENT: General X-ray: Exam(s) Completed: Upper Extremity X-Ray(s): Shoulder, AP / TRUE AP / AXILLARY bilateral PERIPHERAL IV DATA: Not applicable SIGNED BY: RT Noam(R) February 05, 2025 4:04 PM [facility] 02-05-2025 History of Presen t illness Narrative Chief Complaint Patient presents with: 6 Month Exam HPI Paco Whitney is a 89 year old male who presents here today for 6 month follow up. Pt recently discharged from [facility] to SNF as pt is not able to care for pt any longer. 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 [...] W/COLLJ SPEC WHEN PFRMD 09/19/2011 [facility]oscopy [facility] ENDOVASCULAR ANEURYSM REPAIR 01/2013 with bi-liac [...] Take 1 tablet by mouth once daily. ftjccgwl-ezxkmmagi-uzvjlkxygkucd e (CORTISPORIN) 3.5-10,000-1 mg/mL-unit/mL-% otic suspension Use [...] type (HCC) (J43.9) Under the care of quiller machine fixer Dr. Luna, with a follow-up appointment scheduled for April 02. Continue current pulmonary management and attend scheduled follow-up with Dr. Luna. 7. Pedal edema (R60.0) Noted swelling in the lower extremities, particularly around the ankles, which reduces overnight. Monitor edema; consider compression stockings if swelling persists or worsens. Follow up in 6 months Recording using [email or web address] software for draft documentation of the visit was discussed with the patient/authorized transportation services representative; all questions welcomed and answered. Patient/authorized transportation services representative agreed to proceed I agree with the Chief Complaint, ROS, and Past Histories independently gathered by the clinical field support technician and the remaining scribed note accurately describes [...] Marianne Escobar MA documented in this encounter [facility] 02-05-2025 Note HNO ID: [id number] Author: CLARICE MURILLO MD Service: ? Author Type: Physician Type: Progress Notes Filed: 02/05/2025 15:42 Note Text: Chief Complaint Patient presents with: 6 Month Exam HPI Paco Whitney is a 89 year old male who presents here today for 6 month follow up. Pt recently discharged from [facility] to SNF as pt is not able to care for pt any longer. 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 [...] W/COLLJ SPEC WHEN PFRMD 09/19/2011 Colonoscopy [facility] ENDOVASCULAR ANEURYSM REPAIR 01/2013 with bi-liac [...] mouth three breana (more content not included)... [facility] 11-19-2024 Telephone encounter Note The following approved medication requests have been transmitted electronically. Requested Prescriptions Pending Prescriptions Disp Refills ramipril (ALTACE) 10 mg capsule 90 capsule 3 Sig: Take 1 capsule by mouth once daily. Sid Frank APRN.CNP [facility] 11-19-2024 Miscellaneous Notes The following approved [...] 2024 8:50 AM documented in this encounter [facility] 11-19-2024 Telephone encounter Note Prescription Refill [...] capsule by mouth once daily. Monet Matos [facility] November 19, 2024 8:[address] [facility] 11-10-2024 Discharge summary Note Date/Time November 10, 2024 9:47am [facility] Medical Records Department [address] [place] [address] Instructions for Home/Discharge Instructions 11/10/24 0940 MR#: [id number] Acct: [id number] Name: PACO WHITNEY Rep #:[id number] : 1935 89 From: Riky Evans PCP: [...] me in clinic in 3 days at [facility] on Tuesday, 13 November 2024, Discharge [...] Staff] - (Follow-up in 3 days at [facility] in clinic) Disposition Disposition (needs filled in before D/C Order can be placed): Home, Self Care 11/10/24 0947<Electronically signed by Riky Li MD>Riky Li MD CC: Dr. Evelyn Doss, DO; Dr. Clarice Murillo MD ~ Signed [facility] Work Phone: 1(802) 172-186804-26-2025 Discharge summary Author Riky Li [facility] Note Date/Time November 10, 2024 10: 34am [facility] Medical Records Department [address] [place] [address] Discharge Summary 11/10/24946 MR#: [id number] Acct: [id number] Name: PACO WHITNEY Rep #:[id number] : 1935 89 From: Riky Evans PCP: Dr. Clarice Murillo MD Status:AD M IN [place] [id number] Providers Date of Admission: 11/08/24 Date of [...] % (Auto) 61.9, Lymph % (Auto) 24.1, Delta % (Auto) 10.6 H, Eos % (Auto) [...] me in clinic in 3 days at [facility] on Tuesday, 13 November 2024, Discharge [...] Staff] - (Follow-up in 3 days at [facility] in clinic) Disposition Disposition (needs filled in before D/C Order can be placed): Home, Self Care Charges/Coding Visit Charges Inpatient E&M: 56122 Disch Hosp >30min 11/10/24 1034 <Electronically signed by Riky Li MD> Cosigner Signature (if applicable): CC: Dr. Clarice Murillo MD; Dr. Riky Li MD; Dr. Dennis Rocha MD~ Signed [facility] Work Phone: 1(191) 574-581304-26-2025 Progress note Author Dennis Rocha [facility] Note Date/Time November 10, 2024 9:4 1am [facility] Medical Records Department [address] [place] [address] Progress Note - Surgery 11/10/24 0938 MR#: [id number] Acct: [id number] Name: PACO WHITNEY Rep #:[id number] : 1935 89 From: Dennis Rocha MD PCP: Dr. Clarice Murillo MD Status:AD M IN Location: [place] SF862-6 Subjective Subjective Doing well. Reports that pain [...] % (Auto) 61.9, Lymph % (Auto) 24.1, Delta % (Auto) 10.6 H, Eos % (Auto) [...] follow-up with me in 3 days at [facility] in clinic. Charges/Coding Visit Charges Inpatient E&M: 96748 Subs Hosp L1 11/10/24 0940 <Electronically signed by Dennis Rocha MD> Cosigner Signature (if applicable): CC: ~ Signed ADDENDUM by Dr. Dennis Rocha MD on 11/10/24 at 0941 Addendum Afebrile with stable vital signs Normal white blood cell count 11/10/24 0941<Electronically signed by Dennis Rocha MD> Cosigner Signature (if applicable): cc: ~* Signed [facility] Work Phone: 1(825) 560-995604-26-2025 Discharge summary [facility] Medical Records Department [address] [place] [address] Discharge Summary 11/10/24 0947 MR#: [id number] Acct: [id number] Name: PACO WHITNEY Rep #:[id number] : 1935 89 From: Riky Evans PCP: Dr. Clarice Murillo MD Status:AD M IN [facility] Prov[facility] Date of Admission: 11/08/24 Date of [...] mcg/actuation aerosol inhaler 2 puff inhalation BID Yvjkmzcfp05/12/18 fenofibrate 160 mg tablet 160 mg PO [...] % (Auto) 61.9, Lymph % (Auto) 24.1, Delta % (Auto) 10.6 H, Eos % (Auto) [...] me in clinic in 3 days at [facility] on Radha, 13 November 2024, Discharge [...] Staff] - (Follow-up in 3 days at [facility] in clinic) Disposition Disposition (needs filled in before D/C Order can be placed): Home, Self Care Charges/Coding Visit Charges Inpatient E&M: 67339 Disch Hosp >30min 11/10/24 1034 Cosigner Signature (if applicable): CC: Dr. Clarice Murillo MD; Dr. Riky Li MD; Dr. Dennis Rocha MD~ Signed [facility]04-26-2025 Discharge summary [facility] Medical Records Department [address] [place] [address] Instructions for Home/Discharge Instructions 11/10/24 0940 MR#: [id number] Acct: [id number] Name: PACO WHITNEY Rep #:[id number] : 1935 89 From: Riky Evans PCP: [...] me in clinic in 3 days at [facility] on Tuesday, 13 November 2024, Discharge [...] Staff] - (Follow-up in 3 days at [facility] in clinic) Disposition Disposition (needs filled in before D/C Order can be placed): Home, Self Care 11/10/24 0947Riky Li MD CC: Dr. Evelyn Doss DO; Dr. Clarice Murillo MD ~ Signed [facility]04-26-2025 [facility] Medical Records Department [address] [place] [address] Discharge Summary 11/10/24 0947 MR#: [id number] Acct: [id number] Name: PACO WHITNEY Rep #: [id number] : 1935 89 From: Riky Li MD PCP: Dr. Clarice Murillo MD Status:ADM IN Location: [place] [address] Providers Date of Admission: 11/08/24 Date of Discharge: 11/10/24 Primary Care Physician: Dr. Clarice Mruillo MD Reason For Visit: LEFT WRIST CELLULITIS [...] induced arthritis: [facility]. Patient had joint tap, no [...] in bilateral lung base (more content not included)...[facility]04-26-2025 Progress note [facility] Medical Records Department [address] [place] [address] Progress Note - Surgery 11/10/24 0938 MR#: [id number] Acct: [id number] Name: PACO WHITNEY Rep #:[id number] : 1935 89 From: Dennis Rocha MD PCP: Dr. Clarice Murillo MD Status:AD M IN [place] [facility] FJ609-0 Subjective Subjective Doing well. Reports that pain [...] % (Auto) 61.9, Lymph % (Auto) 24.1, Delta % (Auto) 10.6 H, Eos % (Auto) [...] follow-up with me in 3 days at [facility] in clinic. Charges/Coding Visit Charges Inpatient E&M: 08738 Subs Hosp L1 11/10/24 0940 Cosigner Signature (if applicable): CC: ~ Signed ADDENDUM by Dr. Dennis Rocha MD on 11/10/24 at 0941 Addendum Afebrile with stable vital signs Normal white blood cell count 11/10/24 0941 Cosigner Signature (if applicable): cc: ~* Signed [facility]04-25-2025 Progress note Author Riky Li [facility] Note Date/Time November 09, 2024 3:4 5pm [facility] Medical Records Department [address] [place] [address] Progress Note - Hospitalist 11/09/24 0949 MR#: [id number] Acct: [id number] Name: PACO WHITNEY Rep #:[id number] : 1935 89 From: Riky Evans PCP: Dr. Clarice Murillo MD Status:AD M IN [place] [facility] PE121-9 Reason for Visit Reason for Visit: Diagnoses [...] % (Auto) 68.3, Lymph % (Auto) 19.5, Delta% (Auto) 9.4, Eos % (Auto) 1.8, Baso [...] % (Auto) 66.4, Lymph % (Auto) 20.8, Delta % (Auto) 9.7, Eos % (Auto) 2.2, [...] tissue swelling about the wrist. Reading Location: [facility] Wrist X-Ray 11/08/24 19:37 IMPRESSION: Negative for acute displaced fracture or dislocation. 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 Severe diffuse soft tissue swelling about the wrist. No cortical destruction. Osteopenia. Reading Location: [facility] Physical Exam Narrative Seen and examined Patient [...] induced arthritis: Patient is being admitted to [facility] floor. Patient had joint tap, no crystals [...] plus SCD's. Charges/Coding Visit Charges Inpatient E&M: 98642 Subs Hosp L2 11/09/24 9111 <Electronically signed by Riky Li MD> Cosigner Signature (if applicable): CC: ~ Signed [facility] Work Phone: 1(736) 567-363204-25-2025 Progress note [facility] Medical Records Department [address] [place] [address] Progress Note - Hospitalist 11/09/24 0949 MR#: [id number] Acct: [id number] Name: PACO WHITNEY Rep #:[id number] : 1935 89 From: Riky Evans PCP: Dr. Clarice Murillo MD Status:AD M IN [place] [facility] AH334-7 Reason for Visit Reason for Visit: Diagnoses [...] % (Auto) 68.3, Lymph % (Auto) 19.5, Delta% (Auto) 9.4, Eos % (Auto) 1.8, Baso [...] WBCs 1.409, Synovial Neutrophils 46 H, Synovial Acsifilcfle20, Synovial Monocytes 14, Synovial Polynuclear % 64.6, [...] % (Auto) 66.4, Lymph % (Auto) 20.8, Delta % (Auto) 9.7, Eos % (Auto) 2.2, [...] tissue swelling about the wrist. Reading Location: [facility] Wrist X-Ray 11/08/24 19:37 IMPRESSION: Negative for acute displaced fracture or dislocation. 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 Severe diffuse soft tissue swelling about the wrist. No cortical destruction. Osteopenia. Reading Location: [facility] Physical Exam Narrative Seen and examined Patient [...] plus SCD's. Charges/Coding Visit Charges Inpatient E&M: 33643 Subs Hosp L2 11/09/24 0337 Cosigner Signature (if applicable): CC: ~ Signed [facility]04-25-2025 Progress note Author Dennis Rocha [facility] Note Date/Time November 09, 2024 10: 18am [facility] Medical Records Department [address] [place] [address] Progress Note - Surgery 11/09/24 1009 MR#: [id number] Acct: [id number] Name: PACO WHITNEY Rep #:[id number] : 1935 89 From: Dennis Rocha MD PCP: Dr. Clarice Murillo MD Status:AD M IN Location: [place] 308554-1 Subjective Subjective Patient doing well overall. 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 Severe diffuse soft tissue swelling about the wrist. No cortical destruction. Osteopenia. Reading Location: [facility] Physical Exam Narrative Left Upper Extremity Inspection: [...] Multi Select Codes Visit Charges Visit Charges: 25856 Subs Hosp L1 11/09/24 1018 <Electronically signed by Dennis Rocha MD> Cosigner Signature (if applicable): CC: ~ Signed [facility] Work Phone: 1(155) 152-952604-25-2025 Progress note [facility] Medical Records Department [address] [place] [address] Progress Note - Surgery 11/09/24 1009 MR#: [id number] Acct: [id number] Name: PACO WHITNEY Rep #:[id number] : 1935 89 From: Dennis Rocha MD PCP: Dr. Clarice Murillo MD Status:AD M IN Location: [place] MA565-5 Subjective Subjective Patient doing well overall. Less [...] % (Auto) 68.3, Lymph % (Auto) 19.5, Delta% (Auto) 9.4, Eos % (Auto) 1.8, Baso [...] WBCs 1.409, Synovial Neutrophils 46 H, Synovial Fzusgzcaqgj81, Synovial Monocytes 14, Synovial Polynuclear % 64.6, [...] % (Auto) 66.4, Lymph % (Auto) 20.8, Delta % (Auto) 9.7, Eos % (Auto) 2.2, [...] tissue swelling about the wrist. Reading Location: [facility] Wrist X-Ray 11/08/24 19:37 IMPRESSION: Negative for acute displaced fracture or dislocation. 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 Severe diffuse soft tissue swelling about the wrist. No cortical destruction. Osteopenia. Reading Location: [facility] Physical Exam Narrative Left Upper Extremity Inspection: [...] Multi Select Codes Visit Charges Visit Charges: 62478 Subs Hosp L1 11/09/24 1018 Cosigner Signature (if applicable): CC: ~ Signed [facility]04-25-2025 History and physical note Author Evelyn Mccall [facility] Note Date/Time November 09, 2024 6:2 3am [facility] Medical Records Department [address] [place] [address] H&P Exam - Hospitalist 11/08/242000 MR#: [id number] Acct: [id number] Name: DEVONTEPACO Josefina Rep #:[id number] : 1935 89 From: Evelyn Shah DO PCP: Dr. Clarice Murillo MD Status:AD M IN [place] [facility] FI433-4 HPI - General General Date of Admission: 11/08/24 Date of Service: 11/08/24 Chief Complaint: Left Wrist Redness, Swelling, Pain and Fever. HPI Narrative PACO WHINTEY, is a 89 M with a past [...] his first MTP joint who presents to [facility] ER complaining of Left wrist redness, swelling, [...] to extend beyond 2 midnights. [facility] Medical History PAD (peripheral artery disease) Renal [...] % (Auto) 68.3, Lymph % (Auto) 19.5, Delta% (Auto) 9.4, Eos % (Auto) 1.8, Baso [...] is greatly appreciated. Acetaminophen as needed for hrtz-uq-zalwhnci (level 1-5/10) pain or fever. Give morphine [...] 55 minutes. Charges/Coding Visit Charges Inpatient E&M: 91990 Init Hosp L2 11/09/24 0623 <Electronically signed by Evelyn Doss DO> Cosigner Signature (if applicable): CC: Dr. Evelyn Doss DO; Dr. Clarice Murillo MD~ Signed [facility] Work Phone: 1([phone]) 691-845304-25-2025 History and physical note [facility] Medical Records Department [address] [place] [address] H&P Exam - Hospitalist 11/08/242000 MR#: [id number] Acct: [id number] Name: PACO WHITNEY Rep #:[id number] : 1935 89 From: Evelyn Shah DO PCP: Dr. Clarice Murillo MD Status:AD M IN Location: [place] UT337-3 [facility] - General General Date of Admission: [...] his first MTP joint who presents to [facility] ER complaining of Left wrist redness, swelling, [...] to extend beyond 2 midnights. [facility] Medical History PAD (peripheral artery disease) Renal [...] % (Auto) 68.3, Lymph % (Auto) 19.5, Delta% (Auto) 9.4, Eos % (Auto) 1.8, Baso [...] is greatly appreciated. Acetaminophen as needed for jqyx-nd-aopcarhl (level 1-5/10) pain or fever. Give morphine [...] 55 minutes. Charges/Coding Visit Charges Inpatient E&M: 91217 Init Hosp L2 11/09/24 0666 Cosigner Signature (if applicable): CC: Dr. Evelyn Doss DO; Dr. Clarice Murillo MD~ Signed [facility]04-25-2025 Discharge summary Author Eduardo Hartley [facility] Note Date/Time November 08, 2024 10: 09pm [facility] Medical Records Department [address] [place] [address] Emergency Department Summary 11/08/24 MR#: [id number] Acct: [id number] Name: PACO WHITNEY Rep #:[id number] : 1935 89 From: Eduardo Hartley DO PCP: Dr. Clarice Murillo MD Status:AD M IN Location: [place] [address] HPI History of Present Illness Chief Complaint: [...] Denies chills or sweats PFSH [facility] Medical History PAD (peripheral artery disease) Renal [...] wrist pain Disposition Disposition: Acute Care Hospital [facility] What to do if you have Problems For any increased pain, shortness of breath, bleeding, nausea or vomiting, chestpain, or any unexpected problems, contact your Primary Care Provider. Call [facility] ([phone]) or report to the closest Emergency Room. Call 911 if necessary. 11/08/24 7060 <Electronically signed by Eduardo Hartley DO> Cosigner Signature (if applicable): CC: Dr. Clarice Murillo MD ~ Signed [facility] Work Phone: 1(291) 699-564904-24-2025 Evaluation note* Diagnosis Onset Date Resolution Status Admit Date Cellulitis acute November 08, 8:32pm Dehydration acute November 08, 2 025 8:32pm Gout acute November 08 8:32pm History of hypertension acute A pril 2024 8:32pm Left wrist pain acute October 8:32pm Overweight (BMI 25.0-29.9) acute November 08, 2024 8:32pm Swelling of joint of left wrist acut e November 08, 2024 8:32pm [facility] Work Phone: 1(217) 428-567704-24-2025 Discharge summary [facility] Medical Records Department [address] [place] [address] Emergency Department Summary 11/08/24 MR#: [id number] Acct: [id number] Name: PACO HWITNEY Rep #:[id number] : 1935 89 From: Eduardo Hartley DO PCP: Dr. Clarice Murillo MD Status:AD M IN Location: [place] [address] HPI History of Present Illness Chief Complaint: [...] wrist pain Disposition Disposition: Acute Care Hospital [facility] What to do if you have Problems For any increased pain, shortness of breath, bleeding, nausea or vomiting, chestpain, or any unexpected problems, contact your Primary Care Provider. Call [facility] ([phone]) or report tothe closest Emergency Room. Call 911 if necessary. 11/08/242208 Cosigner Signature (if applicable): CC: Dr. 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 5 out of 5 music agent strength. Sensory: Intact to light touch on the radial and ulnar borders. Vascular: Finger tips are warm and well perfused with <2 second capillary refill. Const alert and oriented x3 Lab / Micro Data 11/08/24 18:28 11/08/24 18:28 Charges/Coding Multi Select Codes Visit Charges Office Visit/Consults: 05088 OV L5 New 60min (This visit took greater than 60 minutes (history, physical exam, review of imaging). Procedure performed as well) 11/08/241940 <Electronically signed by Dennis Rocha MD> Cosigner Signature (if applicable): CC: Dr. Clarice Murillo MD~ Signed [facility] Work Phone: 1(671) 196-523504-24-2025 Radiology Diagnostic study note [facility] Imaging Services [address] [place] [address] Hand Min 3 Views MR#: [id number] Acct: [id number] Name: DEVONTEPACO Josefina Rep #: [id number] : 1935 M 89 From: Davie Pino DO PCP: Dr. Clarice Murillo MD Status: RE G ER Study:Hand Min 3 Views Date of Exam: Exam# [id number] Ordering Dr: Lauryn Rocha MD PROCEDURE: HAND [...] Murillo MD; Dr. Dennis Rocha MD ~ 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: Signed [facility]04-24-2025 Radiology Diagnostic study note [facility] Imaging Services [address] [place] [address] Wrist min 3 Views MR#: [id number] Acct: [id number] Name: PACO WHITNEY Rep #: [id number] : 1935 M 89 From: Davie Pino DO PCP: Dr. Clarice Murillo MD Status: RE Sue ER Study:Wrist min 3 Views Date of Exam: Exam# [id number] Ordering Dr: Tiago Hartley DO EXAM: Left wrist radiographs CLINICAL HISTORY: Pain, swelling COMPARISON: None TECHNIQUE: Three views of the left wrist FINDINGS: See impression RAD/Wrist min 3 Views IMPRESSION: Negative for acute displaced fracture or dislocation. 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 Severe diffuse soft tissue swelling about the wrist. No cortical destruction. Osteopenia. Reading Location: [facility] CC: Dr. Clarice Murillo MD; Dr. 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 5 out of 5 music agent strength. Sensory: Intact to light touch on the radial and ulnar borders. Vascular: Finger tips are warm and well perfused with <2 second capillary refill. Const alert and oriented x3 Lab / Micro Data 11/08/24 18:28 11/08/24 18:28 Charges/Coding Multi Select Codes Visit Charges Office Visit/Consults: 93204 OV L5 New 60min (This visit took greater than 60 minutes (history, physical exam, review of imaging). Procedure performed as well) 11/08/241940 Cosigner Signature (if applicable): CC: Dr. Clarice Murillo MD~ Signed [facility]04-24-2025 NoteHNO ID: [id number] Author: VASYL WELSH MD Service: ? Author Type: Physician Type: Progress Notes Filed: 11/08/2024 18:31 Note Text: [facility] Subjective Paco Whitney is a [...] available. He will take himself to the [facility]. Vasyl Welsh MD History and Record Review [...] will be seeking further care outside the [facility] hospital system. Disposition The patient was other (comment) (Self transport to ER). [facility] Instructions* Patient Instructions* Jyothi Mosley APRN.CNP [...] 4 hours as needed. documented in this [facility]-19-2025 NoteHNO ID: [id number] Author: JYOTHI MOSLEY APRN.CNP Service: ? Author Type: Nurse Practitioner Type: Progress Notes Filed: 11/03/2024 09:08 Note Text: [facility] Subjective Paco Whitney is a 89 [...] history is provided by the patient. No speech language pathologist travel was used. Review of Systems Constitutional: Negative [...] inhaler or nebulizer prn Follow up with quiller machine fixer as needed Diagnosis and treatment plan were discussed and questions were answered to the patient's satisfaction. Pt acknowledged understanding of concepts and follow up plan. Specific signs and symptoms that would indicate the need for higher level of care were discussed in detail warranting prompt ER evaluation. Jyothi Mosley APRN.[facility]04-19-2025 History of Present illness Narrative* Jyothi Mosley APRN.[facility] - 11/03/2024 8:30 AM EDT [facility] [...] history is provided by the patient. No speech language pathologist travel was used. Review of Systems Constitutional: Negative [...] inhaler or nebulizer prn Follow up with quiller machine fixer as needed Diagnosis and treatment plan were discussed and questions were answered to the patient's satisfaction. Pt acknowledged understanding of concepts and follow up plan. Specific signs and symptoms that would indicate the need for higher level of care were discussed indetail warranting prompt ER evaluation. Jyothi Mosley APRN.[employer] SPECIALIST documented in this encounterMercy [facility]. [facility]04-17-2025 Telephone encounter Note * Telephone Encounter [...] is . I confirmed [facility] in [place] as pharmacy. 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 [phone]. Requested Prescriptions Pending Prescriptions Disp Refills SYMBICORT 160-4.5 mcg/actuation inhaler 11 g 0 Sig: Inhale 2 puffs as instructed two times a day. Mary Wagner MA November 01, 2024 9:[address] [facility]04-17-2025 Miscellaneous Notes* Telephone Encounter - Mary [...] is . I confirmed [facility] in [place] as pharmacy. 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 [phone]. Requested Prescriptions Pending Prescriptions Disp Refills SYMBICORT 160-4.5 mcg/actuation inhaler 11 g 0 Sig: Inhale 2 puffs as instructed two times a day. Mary Wagner MA November 01, 2024 9:36 AM documented in this encounterMercy Health [facility]. [facility]03-10-2025 History of Present illness Narrative* Francia Luna MD - 09/24/2024 10:00 AM EDT Images from the original note were not included. . [facility] [place] Note Patient name: Paco Whitney PCP: Clarice [...] Take 1 capsule by mouth once daily. orrlpxaa-jvtehgmph-bpjzxpyvjfjjzn (CORTISPORIN) 3.5-10,000-1 mg/mL-unit/mL-% otic suspension Use 4 [...] of smoking cessation Francia Luna MD [facility] documented in this encounterMer[facility]. [facility]03-10-2025 NoteHNO ID: [id number] Author: FRANCIA LUNA MD Service: ? Author Type: Physician Type: Progress Notes Filed: 09/24/2024 19:37 Note Text: . [facility] [place] Note Patient name: Paco Whitney PCP: Clarice [...] Take 1 capsule by mouth once daily. nbzflvfi-goimwiebo-rjbelwpbtgbklo (CORTISPORIN) 3.5-10,000-1 mg/mL-unit/mL-% otic suspension Use 4 [...] will continue abstinence f (more content not included)...[facility]02-[facility] Telephone encounter Note* Telephone Encounter - [...] ONCE DAILY AT BEDTIME Monet Dahl RN [facility]02-21-2025 Miscellaneous Notes* Telephone Encounter - Monet [...] BEDTIME Monet Wurst, RN documented in this encounterMer[facility]. [facility]01-15-2025 Instructions* Patient Instructions* Karla Campuzano APRN.CNP - 08/01/2024 3:03 PM EST Get repeat fasting labs completed in 6 months Continue to take all medication as prescribed Recommend follow up with Orthopedics to discuss shoulder pain Continue to eat a well balanced diet and stay active. Follow up in 6 months or sooner as needed. documented in this encounterMercy Health [facility]. [facility]01-15-2025 History of Present illness Narrative* Karla [...] W/COLLJ SPEC WHEN PFRMD 09/19/2011 [facility] ENDOVASCULAR ANEURYSM REPAIR 01/2013 with bi-[facility] device HERNIA REPAIR HX 04/03/2013 PAST SURGICAL [...] on empty stomach, 1/2 hr before meal. vmpxkwat-utfitggsh-kszbegerankdax (CORTISPORIN) 3.5-10,000-1 mg/mL-unit/mL-% otic suspension Use 4 [...] APRN.SARAI This note was partially generated using Tragara voice recognition system. Note was reviewed for accuracy. There may be minor misspellings or grammar miscues with Tragara voice recognition. documented in this encounterMercy Health St. [facility]01-15-2025 NoteHNO ID: [id number] Author: KARLA CAMPUZANO APRN.SARAI Service: ? Author [...] W/COLLJ SPEC WHEN PFRMD 09/19/2011 Colonoscopy [facility] ENDOVASCULAR ANEURYSM REPAIR 01/2013 with bi-liac [...] on empty stomach, 1/2 hr before meal. xlfnexje-dtbgkbsjm-gncrpojiwfhrya (CORTISPORIN) 3.5-10,000-1 mg/mL-unit/mL-% otic suspension Use 4 [...] Cancer Brother of jerrell (more content not included)...[facility]12-05-2024 NoteHNO ID: [id number] Author: ADRIEL VIDES RN Service: ? Author Type: Registered Nurse Type: Progress Notes Filed: 06/21/2024 15:08 Note Text: [facility] Telephonic Outreach Provider Action/FYI Contacted for: Routine Telephonic Outreach Contact made with patient: Yes Patient identified by name and date of . Discussed care with patient Are you experiencing any new or worsening symptoms you need to talk about today? No Based on storage center manager, the following disposition is advised: No symptoms or symptoms present, not severe. Routed to: No Action Needed GEOFF Education Provided this Outreach: No No concerns Cares for - She has appointment tomorrow to check B/P Adriel Vides RN June 21, 2024 3:07 [facility]12-05-2024 History of Present illness Narrative* Adriel Vides RN - 06/21/2024 3:[address] [facility] Telephonic Outreach Provider Action/FYI Contacted for: Routine Telephonic Outreach Contact made with patient: Yes Patient identified by name and date of . Discussed care with patient Are you experiencing any new or worsening symptoms you need to talk about today? No Based on storage center manager, the following disposition is advised: No symptoms or symptoms present, not severe. Routed to: No Action Needed GEOFF Education Provided this Outreach: No No concerns Cares for - She has appointment tomorrow to check B/P Adriel Vides RN June 21, 2024 3:07 PM documented in this encounter[facility]12[facility] NotePatient Outreach ([facility]) PACO WHITNEY ([id number]) 1935 Date Time Provider Department 06/21/24 ADRIEL VIDES [facility] During your visit today, we recorded the following information about you: Adriel Vides RN 06/21/2024 3:[address] [facility] Telephonic Outreach Provider Action/FYI Contacted for: Routine Telephonic Outreach Contact made with patient: Yes Patient identified by name and date of . Discussed care with patient Are you experiencing any new or worsening symptoms you need to talk about today? No Based on storage center manager, the following disposition is advised: No symptoms [...] empty stomach, 1/2 hr before meal. 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 Author Type: Registered Nurse Type: Progress Notes Filed: 05/24/2024 14:33 Note Text: [facility] Telephonic Outreach Provider Action/FYI Contacted for: Routine Telephonic Outreach Contact made with patient: Yes Patient identified by name and date of . Discussed care with patient Are you experiencing any new or worsening symptoms you need to talk about today? No Based on storage center manager, the following disposition is advised: No symptoms or symptoms present, not severe. Routed to: No Action Needed GEOFF Education Provided this Outreach: No Doing well Chronic conditions at baseline Nice gentlemen No concerns today Adriel Vieds RN May 24, 2024 2:32 [facility]11-07-2024 History of Present illness Narrative* Adriel Vides RN - 05/24/2024 2:[address] [facility] Telephonic Outreach Provider Action/FYI Contacted for: Routine Telephonic Outreach Contact made with patient: Yes Patient identified by name and date of . Discussed care with patient Are you experiencing any new or worsening symptoms you need to talk about today? No Based on storage center manager, the following disposition is advised: No symptoms or symptoms present, not severe. Routed to: No Action Needed GEOFF Education Provided this Outreach: No Doing well Chronic conditions at baseline Sabiha cristina No concerns today Adriel Vides RN May 24, 2024 2:32 PM documented in this encounterMer[facility]11-07-[facility]24 NotePatient Outreach ([facility]) PACO WHITNEY ([id number]) 1935 M Date Time Provider Department 05/24/24 AD[facility]EL VIDES [facility] During your visit today, we recorded the following information about you: Adriel Vides RN 05/24/2024 2:33 PM Signed CD Telephonic Outreach Provider Action/FYI Contacted for: Routine Telephonic Outreach Contact made with patient: Yes Patient identified by name and date of . Discussed care with patient Are you experiencing any new or worsening symptoms you need to talk about today? No Based on storage center manager, the following disposition is advised: No symptoms [...] empty stomach, 1/2 hr before meal. - yqggaihh-irzmdmqjt-lyhzwooapqmyfu (CORTISPORIN) 3.5-10,000-1 mg/mL-unit/mL-% otic suspension Use 4 [...] 03/08/2023 Encounter Status:Closed by ADRIEL VIDES on 05/24/24[facility] 05-04-2024 Telephone encounter Note* Telephone Encounter - Clarice Muirllo MD - 05/04/2024 4:49 PM EDT OK to refill as ordered Clarice Murillo MD [facility]10-18-2024 Miscellaneous Notes* Telephone Encounter - Clarice [...] 04, 2024 3:57 PM documented in this encounterMer[facility]. [facility]10-18-2024 Telephone encounter Note * Telephone Encounter [...] Johanna Uribe May 04, 2024 3:[address] [facility]10-10-2024 NoteHNO ID: [id number] Author: ADRIEL VIDES RN Service: ? Author Type: Registered Nurse Type: Progress Notes Filed: 04/26/2024 11:42 Note Text: [facility] Telephonic Outreach Provider Action/FYI Contacted for: Routine Telephonic Outreach Contact made with patient: Yes Patient identified by name and date of . Discussed care with patient Are you experiencing any new or worsening symptoms you need to talk about today? No Based on storage center manager, the following disposition is advised: No symptoms [...] Adriel Vides RN April 26, 2024 11:32 [facility]10-10-2024 History of Present illness Narrative* Adriel Vides RN - 04/26/2024 11:[address] [facility] Telephonic Outreach Provider Action/FYI Contacted for: Routine Telephonic Outreach Contact made with patient: Yes Patient identified by name and date of . Discussed care with patient Are you experiencing any new or worsening symptoms you need to talk about today? No Based on storage center manager, the following disposition is advised: No symptoms [...] 26, 2024 11:32 AM documented in this encounterMer[facility]. [facility]10-10-2024 NotePatient Outreach ([facility]) PACO WHITNEY ([id number]) 1935 M Date Time Provider Department 04/26/24 ADRIEL VIDES [facility] During your visit today, we recorded the following information about you: Adriel Vides, RN 04/26/2024 11:[address] [facility] Telephonic Outreach Provider Action/FYI Contacted for: Routine Telephonic Outreach Contact made with patient: Yes Patient identified by name and date of . Discussed care with patient Are you experiencing any new or worsening symptoms you need to talk about today? No Based on storage center manager, the following disposition is advised: No symptoms [...] empty stomach, 1/2 hr before meal. - tozevkvu-ztvtgzgiw-qmadhtexupcrfm (CORTISPORIN) 3.5-10,000-1 mg/mL-unit/mL-% otic suspension Use 4 [...] 03/08/2023 Encounter Status:Closed by ADRIEL VIDES on 04/26/24[facility] 04-25-2024 History of Present illness Narrative* Adriel Vides RN - 04/25/2024 3:[address] [facility] Telephonic Outreach Provider Action/FYI Contacted for: Routine Telephonic Outreach Contact made with patient: No, left message. Adriel Vides RN April 25, 2024 3:27 PM documented in this encounterMercy [facility]. [facility]10-09-2024 NoteHNO ID: [id number] Author: ADRIEL VIDES RN Service: ? Author Type: Registered Nurse Type: Progress Notes Filed: 04/25/2024 15:27 Note Text: [facility] Telephonic Outreach Provider Action/FYI Contacted for: Routine Telephonic Outreach Contact made with patient: No, left message. Adriel Vides RN April 25, 2024 3:27 [facility]10-09-2024 NotePatient Outreach ([facility]) DEVONTEPACO ([id number]) 1935 M Date Time Provider Department 04/25/24 ADRIEL VIDES [facility] During your visit today, we recorded the following information about you: Adriel Vides RN 04/25/2024 3:[address] [facility] Telephonic Outreach Provider Action/FYI Contacted for: Routine [...] for Visit: community monitoring outreach [Other] Cmt: [facility]-Telephonic outreach Prescriptions as of 04/25/2024 - gabapentin [...] empty stomach, 1/2 hr before meal. - npmalyxp-ddfcmentv-jcwgkvhdfeytjk (CORTISPORIN) 3.5-10,000-1 mg/mL-unit/mL-% otic suspension Use 4 [...] 03/08/2023 Encounter Status:Closed by ADRIEL VIDES on 04/25/24[facility] 03-26-2024 NoteHNO ID: [id number] Author: ADRIEL VIDES RN Service: ? Author Type: Registered Nurse Type: Progress Notes Filed: 03/26/2024 12:33 Note Text: [facility] Telephonic Outreach Provider Action/FYI Contacted for: Routine Telephonic Outreach Contact made with patient: Yes Patient identified by name and date of . Discussed care with patient Are you experiencing any new or worsening symptoms you need to talk about today? No Based on storage center manager, the following disposition is advised: No symptoms [...] Adriel Vides RN March 26, 2024 12:30 [facility]09-09-2024 History of Present illness Narrative* Adriel Vides RN - 03/26/2024 12:[address] [facility] Telephonic Outreach Provider Action/FYI Contacted for: Routine Telephonic Outreach Contact made with patient: Yes Patient identified by name and date of . Discussed care with patient Are you experiencing any new or worsening symptoms you need to talk about today? No Based on storage center manager, the following disposition is advised: No symptoms [...] 26, 2024 12:30 PM documented in this encounterMer[facility]. [facility]09-09-2024 NotePatient Outreach ([facility]) PACO WHITNEY ([id number]) 1935 M Date Time Provider Department 03/26/24 ADRIEL VIDES [facility] During your visit today, we recorded the following information about you: Adriel Vides RN 03/26/2024 12:[address] [facility] Telephonic Outreach Provider Alaina/FYI Contacted for: Routine Telephonic Outreach Contact made with patient: Yes Patient identified by name and date of . Discussed care with patient Are you experiencing any new or worsening symptoms you need to talk about today? No Based on storage center manager, the following disposition is advised: No symptoms [...] empty stomach, 1/2 hr before meal. - fihihvco-eqywmfhck-hmvmapmjycqbtw (CORTISPORIN) 3.5-10,000-1 mg/mL-unit/mL-% otic suspension Use 4 [...] 03/08/2023 Encounter Status:Closed by ADRIEL VIDES on 03/26/24[facility] 03-21-2024 Instructions* Patient Instructions* Karla Campuzano APRN.SARAI - 03/21/2024 2:39 PM EDT Continue to take all medication as prescribed. Flu vaccine given Keep scheduled appointments with specialists Follow up in 3 months, get repeat labs in early July documented in this encounterMer[facility]. 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 thbftfdw-bnknnsjuu-azijglsmgwdnho (CORTISPORIN) 3.5-10,000-1 mg/mL-unit/mL-% otic suspension Use 4 [...] current medication. - Keep scheduled appointments with quiller machine fixer. 6. Neuropathy - ICD9: 355.9, ICD10: G62.9 [...] discussed and patient voices understanding. Karla Campuzano APRN.WARHEAD MAINTENANCE SPECIALIST This note was partially generated using Tragara voice recognition system. Note was reviewed for accuracy. There may be minor misspellings or grammar miscues with Tragara voice recognition. documented in this encounterMercy Health St. [facility]09-04-2024 NoteHNO ID: [id number] Author: KARLA CAMPUZANO APRN.SARAI Service: ? 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 lyeprtho-sfysgbqht-bgedcgbygtacty (CORTISPORIN) 3.5-10,000-1 mg/mL-unit/mL-% otic suspension Use 4 [...] of liver. Diabetes Brother (more content not included)...[facility] 03-14-2024 Telephone encounter Note* Telephone Encounter - Jhoan Siegel LPN - 03/14/2024 2:24 PM EDT Patient notified of results, verbalizes understanding of instructions. Jhoan Siegel LPN [facility]08-28-2024 Miscellaneous Notes* Telephone Encounter - Jhoan [...] you. Karla Campuzano APRN.SARAI documented in this encounterMercy Health St. [facility]08-28-2024 Telephone encounter Note * Telephone Encounter [...] any questions. Thank you. Karla Campuzano APRN.CNP [facility]08-09-2024 History of Present illness Narrative* Adriel Vides RN - 02/24/2024 2:[address] [facility] Telephonic Outreach Provider Action/FYI Contacted for: Routine Telephonic Outreach Contact made with patient: Yes Patient identified by name and date of . Discussed care with patient Are you experiencing any new or worsening symptoms you need to talk about today? No Based on storage center manager, the following disposition is advised: No symptoms or symptoms present, not severe. 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 Listened with HEART Adriel Vides RN February 24, 2024 2:47 PM documented in this encounterMer[facility]08-02-2024 Telephone encounter Note * Telephone Encounter - Clarice Murillo MD - 02/17/2024 3:32 PM EDT Done and given to pt in office Clarice Murillo MD [facility]08-02-2024 Miscellaneous Notes* Telephone Encounter - Clarice Murillo MD - 02/17/2024 3:32 PM EDT Done and given to pt in office Clarice Murillo MD * Telephone Encounter - Korin Calixto MA - 02/17/2024 2:13 PM EDT Requesting renewal of handicap placard. In office with today for OV. Printed and on your desk to sign. Korin Calixto MA documented in this encounterMer[facility] Health [facility]08-02-2024 Telephone encounter Note * Telephone Encounter - Korin Calixto MA - 02/17/2024 2:13 PM EDT Requesting renewal of handicap placard. In office with today for OV. Printed and on your desk to sign. Korin Calixto MA [facility]07-11-2024 History of Present illness Narrative* Adriel [...] to talk about today? No Based on storage center manager, the following disposition is advised: No symptoms or symptoms present, not severe. Routed to: No Action Needed GEOFF Education Provided this Outreach: No Adriel Vides RN January 26, 2024 2:50 PM documented in this encounterMer[facility]. [facility]07-10-2024 Telephone encounter Note * Telephone Encounter - Karla Campuzano APRN.SARAI - 01/25/2024 7:00 PM EDT The following approved medication requests have been transmitted electronically. Requested Prescriptions Signed Prescriptions Disp Refills gabapentin (NEURONTIN) 600 mg tablet 90 tablet 5 Sig: Take 1 tablet by mouth three times a day for 180 days. Authorizing Provider: KARLA CAMPUZANO APRN.CNP [facility]07-10-2024 Miscellaneous Notes* Telephone Encounter - Karla [...] Beebe. Whit Rodriguez RN documented in this encounterMercy Health St. [facility]07-10-2024 Telephone encounter Note * Telephone Encounter - Whit Rodriguez RN - 01/25/2024 4:11 PM EDT Patient calls and states that provider had increased patient's gabapentin to 600 mg TID from 300 mgTID. Patient states that this has been very helpful with his neuropathy. Patient will need a new prescription sent for this to [facility]. Whit Rodriguez RN [facility]07-01-2024 Instructions* Patient Instructions* Karla Campuznao APRN.CNP - 01/16/2024 1:12 PM EDT May [...] up in 3 months. documented in this encounterMercy Health [facility]. 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 ifbsxwxt-ssjpafuvi-ybxuxirgmxbdpf (CORTISPORIN) 3.5-10,000-1 mg/mL-unit/mL-% otic suspension Use 4 [...] discussed and patient voices understanding. Karla Campuzano APRN.WARHEAD MAINTENANCE SPECIALIST This note was partially generated using Tragara voice recognition system. Note was reviewed for accuracy. There may be minor misspellings or grammar miscues with Tragara voice recognition. documented in this encounterMercy Health [facility]. [facility]06-18-2024 History of Present illness Narrative* Francia Luna MD - 01/03/2024 1:39 PM EDT Images from the original note were not included. . [facility] Note Patient name: Paco Whitney PCP: Clarice Murillo MD CC: follow-up CB HPI: Paco Whitney 88 year old male former 69-kjbo-aafo smoker quitting in 1990 with PMH significant [...] Take 1 capsule by mouth once daily. vrucnqyi-rtpuyhcvf-qwjdatsbxgsmen (CORTISPORIN) 3.5-10,000-1 mg/mL-unit/mL-% otic suspension Use 4 [...] DX W/COLLJ SPEC WHEN [facility]FRMD [facility]/2013 with [...] of smoking cessation Francia Luna MD [facility] * Francia Luna MD - 01/03/2024 11:00 AM EDT Images from the original note were not included. . [facility] Patient name: Paco Whitney PCP: Clarice Murillo MD CC: follow-up CB HPI: Paco Whitney 88 year old male former 11-hrox-dngm smoker quitting in 1990 with PMH significant [...] Take 1 capsule by mouth once daily. 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06-11-2024 Telephone encounter Note * Telephone Encounter - Clarice Murillo MD - 12/27/2023 1:43 PM EDT OK to refill as ordered Clarice Murillo MD [facility]06-11-2024 Miscellaneous Notes* Telephone Encounter - Clarice [...] a day for 180 days. Katy Rodriguez [facility] December 27, 2023 8:50 AM documented in this encounterMercy Health [facility]. [facility]06-11-2024 Telephone encounter Note * Telephone Encounter [...] a day for 180 days. Katy Rodriguez [facility] December 27, 2023 8:[address] [facility]06-10-2024 History of Present illness Narrative* Adriel Vides RN - 12/26/2023 8:59 AM EDT CD[facility] Telephonic Outreach Provider Action/FYI Doing well Just need a new skeleton Discussed active lifestyle bah to aging well COPD- baseline- HTN- at goal Plans for follow up with PCP -last few visits with PLASTIC WELDER Contacted for: Routine Telephonic Outreach Contact made [...] more often than normal? No Based on storage center manager, the following disposition is advised: No symptoms or symptoms present, not severe. Routed to: No Action Needed GEOFF Education Provided this Outreach: No Adriel Vides RN December 26, 2023 11:07 AM documented in this encounterMercy Health [facility]. [facility]05-08-2024 History of Present illness Narrative* Adriel [...] more often than normal? No Based on storage center manager, the following disposition is advised: No symptoms or symptoms present, not severe. Routed to: No Action Needed GEOFF Education Provided this Outreach: No Adriel Vides RN November 23, 2023 1:34 PM documented in this encounterMercy Health [facility]. [facility]05-06-2024 Telephone encounter Note * Telephone Encounter - Karla Campuzano APRN.CNP - 11/21/2023 8:38 AM EDT The following approved medication requests have been transmitted electronically. Requested Prescriptions Pending Prescriptions Disp Refills ramipril (ALTACE) 10 mg capsule 90 capsule 3 Sig: Take 1 capsule by mouth once daily. Karla Campuzano APRN.CNP [facility]05-06-2024 Miscellaneous Notes* Telephone Encounter - Karla [...] 11/21/2023 8:15 AM EDT Pharmacy verified in [facility] Patient has been identified by name and [...] Please advise. Samaria Santiago documented in this encounterMercy Health St. [facility]05-06-2024 Telephone encounter Note * Telephone Encounter - Malu Brower OCCA - 11/21/2023 8:36 AM EDT RAYO 10/07/2023 NOV 01/16/2024 Please review and advise. Thank you. TOM Graham [facility]05-06-2024 Telephone encounter Note* Telephone Encounter - Samaria Madison - 11/21/2023 8:15 AM EDT Pharmacy verified in [facility] Patient has been identified by name and [...] Not applicable Please advise. Samaria Martins Pss [facility]04-08-2024 History of Present illness Narrative* Adriel [...] to talk about today? No Based on storage center manager, the following disposition is advised: No symptoms or symptoms present, not severe. Routed to: No Action Needed GEOFF Education Provided this Outreach: Isis Vides RN October 24, 2023 4:04 PM documented in this encounterMercy Health [facility]. [facility]03-22-2024 Instructions* Patient Instructions* Karla Campuzano APRN.CNP - 10/07/2023 10:19 AM EDT If symptoms do not improve or get worse start prednisone and zpack Continue to take all medication as prescribed. Keep scheduled appointments with specialists. Get repeat fasting labs in 6 months. Follow up in 3 months or sooner as needed. documented in this encounterMercy Health [facility]. 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 xfbosvhq-vaqwjmvzd-teghqbbdrwllgp (CORTISPORIN) 3.5-10,000-1 mg/mL-unit/mL-% otic suspension Use 4 [...] discussed and patient voices understanding. Karla Campuzano APRN.WARHEAD MAINTENANCE SPECIALIST This note was partially generated using Tragara voice recognition system. Note was reviewed for accuracy. There may be minor misspellings or grammar miscues with Tragara voice recognition. documented in this encounterMercy Health [facility]. [facility]03-18-2024 Miscellaneous Notes* Telephone Encounter - Sid [...] name and date of : Yes, Provider [facility] Patient phones for refill(s): Requested Prescriptions Pending Prescriptions Disp Refills tamsulosin (FLOMAX) 0.4 mg 90 capsule 3 Sig: TAKE ONE CAPSULE BY MOUTH ONCE DAILY AT BEDTIME Date of last office visit in primary care: 07/08/2023 Date of next office visit in primary care: 10/07/2023 Please advise. Thank you. Indy Santiago. documented in this encounterMercy Health St. [facility]02-28-2024 History of Present illness Narrative* Adriel [...] continues or increasing frequency follow up with PCP/teacher education director. Very nice gentlemen! Contacted for: Routine Telephonic [...] more often than normal? No Based on storage center manager, the following disposition is advised: No symptoms or symptoms present, not severe. Routed to: No Action Needed GEOFF Education Provided this Outreach: No Adriel Vides RN September 14, 2023 10:47 AM documented in this encounterMercy Health [facility]. [facility]12-18-2023 History of Present illness Narrative* Samaria [...] DYE.. Lopid [Gemfibrozil] Other: See Comments Comment:Myalgia. 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 Samaria Lazcano PA-C documented in this encounterMercy Health St. [facility]11-15-2023 History of Present illness Narrative* Adriel Vides RN - 06/01/2023 9:[address] [facility] Telephonic Outreach Provider Action/FYI Doing well COPD [...] more often than normal? No Based on storage center manager, the following disposition is advised: No symptoms or symptoms present, not severe. Routed to: No Action Needed GEOFF Education Provided this Outreach: No Adriel Vides RN June 03, 2023 1:36 PM documented in this encounterMercy Health St. Anne Hospital10-27-2023 Miscellaneous Notes* Telephone Encounter - Clarice [...] notify patient. Johanna Uribe documented in this encounterMercy Health St. Anne Hospital10-16-2023 History of Present illness Narrative* Adriel Vides RN - 05/02/2023 9:[address] [facility] Telephonic Outreach Provider Alaina/KOFFI Contacted for: Routine Telephonic Outreach Contact made with patient: No, left message. Adriel Vides RN May 02, 2023 4:25 PM documented in this encounterMercy Health St. Anne Hospital09-12-2023 History of Present illness Narrative* Adriel Vides RN - 03/29/2023 9:[address] [facility] Telephonic Outreach Provider Alaina/IHSANI Patient states doing [...] more often than normal? No Based on storage center manager, the following disposition is advised: No symptoms or symptoms present, not severe. Routed to: No Action Needed GEOFF Education Provided this Outreach: No Adriel Vides RN March 30, 2023 1:44 PM documented in this encounterMercy Health St. Anne Hospital08-28-2023 Instructions* Patient Instructions* Karla Campuzano APRN.SARAI [...] or sooner as needed. documented in this encounterMercy Health St. 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 bwdoshtz-iqwlwkcfy-dojenbubprsfnr (CORTISPORIN) 3.5-10,000-1 mg/mL-unit/mL-% otic suspension Use 4 [...] discussed and patient voices understanding. Karla Campuzano APRN.WARHEAD MAINTENANCE SPECIALIST This note was partially generated using Tragara voice recognition system. Note was reviewed for accuracy. There may be minor misspellings or grammar miscues with Tragara voice recognition. documented in this encounterMercy Health St. Anne Hospital08-22-2023 History of Present illness Narrative* Ibeth Paredes APRN.WARHEAD MAINTENANCE SPECIALIST - 03/08/2023 11:00 AM EDT Images from the original note were not included. 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 mfxmqknw-tzrlmyzxs-fylzrzncdbvqkc (CORTISPORIN) 3.5-10,000-1 mg/mL-unit/mL-% otic suspension Use 4 [...] 2023 TIME: 9:01 AM documented in this encounterMercy Health St. Anne Hospital08-18-2023 History of Present illness Narrative* Suzie [...] 2023 TIME: 1:38 PM documented in this encounterMercy Health St. Anne Hospital08-15-2023 Miscellaneous Notes* Telephone Encounter - Briana Nuñez LPN - 03/01/2023 2:32 PM EDT Patient triaged in today and directed to [facility]. Briana Nuñez LPN * Telephone Encounter - Suzie Landaverde LPN - 03/01/2023 10:39 AM EDT Patient called. Verified name and date of . States he started coughing three to four days ago. Is coughing brownish, some times greenish, thick/heavy. Headache- sinus. Denies fever. States this happens occasionally. Please review and advise. [facility]erred pharmacy [facility]. Suzie Landaverde LPN documented in this encounterMercy Health St. Anne Hospital08-15-2023 History of Present illness Narrative* Ramses [...] plan of care. Will be seen at [facility]. Ramses Jacinto APRN.CNP documented in this encounterMercy Health St. Anne Hospital08-09-2023 History of Present illness Narrative* Adriel Vides RN - 02/23/2023 5:[address] [facility] Telephonic Outreach Provider Action/FYI AAA surgery COPD Contacted for: Routine Telephonic Outreach Contact made with patient: No, left message. Adriel Vides RN February 23, 2023 5:02 PM documented in this encounterMercy Health St. Anne Hospital07-18-2023 NoteHNO ID: [id number] Author: Too Kaur MD Service: Vascular Surgery Author Type: Resident Type: Progress Notes Filed: 02/01/2023 8:34 AM Note Text: [facility] V[facility]ULAR [facility] PROGRESS NOTE Template ID: [id number] Service Date: 02/01/2023 Admit Date: 01/31/2023Service Time: [...] -- 01/31/23 1500 activity - mobilize patient ([place]) 01/31/23 1230 pneumatic compression stockings ([place], [place]) VTE Prophylaxis: VTE prophylaxis appropriate ALLERGIES [...] Neuro/Pain: Continue pain contr (more content not included)...[facility] 02-01-2023 NoteHNO ID: [id number] Author: Reji Zarco MD Service: Critical Care Author Type: Resident Type: Progress Notes Filed: 02/01/2023 9:34 AM Note Text: Attestation signed by Pallavi Cazares MD at 02/01/2023 10:38 AM [facility] STAFF PHYSICIAN SUPERVISING RESIDENT I have reviewed [...] GERD, BPH, and AAA who presents to [facility] for AAA repair. The patient has [...] 01/31/23699 - 02/01/2365802/01/23699 - 02/02/23 0659 Shift 9896-7415 1650-2917 9453-8553 24 Hour Total 8577-4399 0207-2838 7879-7244 24 Hour Total INTAKE PO 350 240 590 PO 350 240 590 IV 2800 2800 Volume (mL) (lactated ringers iv infusion) 1500 1500 Volume (mL) (lactated ringers iv infusion) 1000 1000 Volume (mL) (NaCl 0.9% iv infusion) 300 300 Shift Total 3150 240 3390 OUTPUT Urine 812 688 8794 2320 Void (ml) 600 1380 1980 Amount Voided Before Bladder Scan 0 0 0 0 OR Urine Output 340 340 # of BMs Number of BMs 0 x 0 x Blood 50 50 Estimated Blood loss 50 50 Shift Total 629 752 1626 2370 Weight (kg) 98.6 98.6 97.5 97.5 [...] gabapentin - Sedation: None (more content not included)...[facility] [id number] NoteHNO ID: [id number] Author: HOANG Barton Service: ? Author Type: Rag Willow Operator Type: Anesthesia Procedure Notes Filed: 01/31/2023 9:28 AM Note Text: ANESTHESIOLOGY PROCEDURE NOTE PIV General Information Procedure Start Time/Medication Administration: 01/31/2023 8:17 AM Staffing Anesthesiologist: Rylie Schulz MD CLAIMS DIRECTOR: Jazz Sweet APRN.CLAIMS DIRECTOR CAA: Ras Osuna AA Performed by: anesthesiologist Preparation Site Prep: alcohol Procedure Details Indication: need for IV access Needle Size/Type: 16 gauge angiocath Orientation: Right Location: Hand Imaging Guidance Used: No SIGNATURE: HOANG Barton PATIENT NAME: Paco Whitney DATE: January 31, 2023 TIME: 9:27 AM CSN: [id number] NoteHNO ID: [id number] Author: HOANG Barton Service: ? Author Type: Rag Willow Operator Type: Anesthesia Procedure Notes Filed: 01/31/2023 9:28 AM Note Text: ANESTHESIOLOGY PROCEDURE NOTE PIV General Information Procedure Start Time/Medication Administration: 01/31/2023 8:16 AM Patient Location: OR Staffing Anesthesiologist: Rylie Schulz MD CLAIMS DIRECTOR: Jazz Sweet APRN.CLAIMS DIRECTOR CAA: Ras Osuna AA Performed by: anesthesiologist Preparation Site Prep: alcohol Procedure Details Indication: need for IV access Needle Size/Type: 16 gauge angiocath Orientation: Left Location: Hand Imaging Guidance Used: No SIGNATURE: HOANG Barton PATIENT NAME: Paco Whitney DATE: January 31, 2023 TIME: 9:26 AM CSN: [id number] NoteHNO ID: [id number] Author: HOANG Barton Service: ? Author Type: Rag Willow Operator Type: Anesthesia Procedure Notes Filed: 01/31/2023 9:22 AM Note Text: ANESTHESIOLOGY PROCEDURE NOTE A-Line General Information Procedure Start Time/Medication Administration: 01/31/2023 8:05 AM Patient location during procedure: OR Indications: continuous blood pressure monitoring and blood sampling needed Staffing Anesthesiologist: Rylie Schulz MD CLAIMS DIRECTOR: Jazz Sweet APRN.CLAIMS DIRECTOR CAA: Ras Osuna AA Performed by: anesthesiologist [...] January 31, 2023 TIME: 9:15 AM CSN: [id number] NoteHNO ID: [id number] Author: HOANG Barton Service: ? 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 Staffing Anesthesiologist: Rylie Schulz MD CLAIMS DIRECTOR: Jazz Sweet APRN.CLAIMS DIRECTOR CAA: Ras Osuna AA Performed by: NICOLE Indications and Patient Condition Indications for airway management: anesthesia Preoxygenated: yes anesthesia circuit Patient position: sniffing Method: asleep Difficult Mask: No Airway Accessory: oral airway (9 cm) Final Airway Details Final airway type: endotracheal airway Final Endotracheal Airway: ETT Successful intubation technique: video laryngoscopy Devices used: Frequent Browser Endotracheal tube insertion site: oral Blade size: [...] January 31, 2023 TIME: 9:08 AM CSN: [id number] History of Present illness Narrative* Adriel Vides RN - 01/25/2023 10:[address] [facility] Telephonic Outreach Provider Action/FYI Patient completed pre [...] improved. Very pleased with pulmonary visit and PLASTIC WELDER taking time to review diagnotic imaging with [...] more often than normal? No Based on storage center manager, the following disposition is advised: No symptoms or symptoms present, not severe. Routed to: No Action Needed GEOFF Education Provided this Outreach: No Adriel Vides RN January 26, 2023 12:50 PM documented in this encounterMercy Health St. Anne Hospital07-10-2023 History and physical note * Rose [...] iliac branch device - Damián Pierre from [employer] will bring implant - kf7/3 EVENT DESIGNER NEEDED at the request of Eladio Livingston [...] without residual deficits. Negative for: cerebral palsy, GAS COMPRESSOR OPERATOR tumor, dementia, headaches, impaired sensorium, multiple [...] pain, CHF, congenital heart defect, DVT/PE, recent NM, open heart surgery and valve surgery. 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 Taking Yes euveudqd-qyoagling-cejbxckzbusqjq (CORTISPORIN) 3.5-10,000-1 mg/mL-unit/mL-% otic suspension Use 4 Drops in the ears four times daily. x 1 week Taking Yes albuterol HFA (VENTOLIN HFA) 90 mcg/actuation inhaler Inhale 2 Puffs as instructed every 4 hours asneeded for Wheezing/Shortness of Breath. Taking Yes Medication Comments documented by Korin Calixto Ma on 11/27/2019 at 1501. Started Baby ASA 81 mg daily ALLERGIES Allergen Reactions [facility]] [Other] Other: See Comments Rhabdomyolysis. Demerol [...] or any previous visit (from the past 61076 hour(s)). Assessment Patient has the following medical conditions which may affect aluren-operative course: COPD (chronic obstructive pulmonary disease) (HCC) [...] smoker - ICD9: V15.82, ICD10: Z87.891 Former 03-mlgt-qsjl smoking having quit in 1990 without sequelae [...] equal to 35 kg/m^2 STOP-Bang Score: 7 [id number] Score: Age: >=75 Sex: male CHF history: No Hypertension history: Yes Stroke/TIA/thromboembolism history: Yes Vascular disease history: Yes Diabetes history: No [id number]-GPMc Score: 6 ARISCAT Score: Age: >80 Preoperative [...] 11:44 AM PAGER/CONTACT #: documented in this encounterMercy Health St. Anne Hospital07-10-2023 Instructions* Patient Instructions* Rose Wall APRN.CNP - 01/24/2023 11:44 AM EDT PATIENT PREOPERATIVE INSTRUCTIONS No ref. provider found has scheduled you for your procedure at this surgery center: [facility]: [phone] --[phone] [address]. Please check in on the1st floor at [...] Procedures: - YOU MUST HAVE A RESPONSIBLE SUMMER LAW CLERK TAKE YOU HOME. A BODY DESIGNER OR DRAWBENCH OPERATOR CANNOT BE MADE A RESPONSIBLE SUMMER LAW CLERK. - We recommend that a responsible person [...] Advance Directive, please fax a copy to [phone] or email to for it to be [...] day. Rose Wall APRN.SARAI documented in this encounterMercy Health St. Anne Hospital06-22-2023 History of Present illness Narrative* Samaria [...] Take 1 capsule by mouth once daily. 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 Continue abstinence. Does not qualify for lung cancer screening with LDCT Portions of this documentation were copied and pasted from previous office visit notes in order to provide a cohesive continuity of the history. The note has been reviewed and edited and updated as necessary. Samaria Lazcano PA-C documented in this encounterMercy Health St. Anne Hospital06-07-2023 History of Present illness Narrative* Adriel Vides RN - 12/22/2022 10:[address] [facility] Telephonic Outreach Provider Action/FYI Contacted for: Routine Telephonic Outreach Contact made with patient: No, left message. Adriel Vides RN December 22, 2022 3:55 PM documented in this encounterMercy Health St. Anne Hospital05-15-2023 NoteHNO ID: [id number] Author: CLARA Dunham Service: Nuclear Medicine Author [...] POST EXAM PIV STATUS: Discontinued PROCEDURE TYPE: TX Stress: 12.4 mCi Hy93p-Uhwntnx was administered IV for Rest Imaging at 09:33 by . 33.7 mCi Dc45b-Cgicpno was administered IV for Stress Imaging at 10:19 by . PATIENT DISCHARGED TO: Ambulatory patient, left [place] department area. A Diagnostic radioactive procedure has taken place, with no further precautions necessary other than routine body substance precautions. More information regarding radiation safety can be found using this link: [email or web address]%20Medicine%20Procedures.[email or web address] SIGNATURE: CLARA Dunham PATIENT NAME: Paco Whitney DATE: November 29, 2022 TIME: 10:20 AM [phone] History of Present illness Narrative* Juan Woodruff, [...] Discontinued PROCEDURE TYPE: NM Stress: 12.4 mCi Kf37e-Eetbeoz was administered IV for Rest Imaging at 09:33 by . 33.7 mCi Ai61h-Fmibvie was administered IV for Stress Imaging at 10:19 by . PATIENT DISCHARGED TO: Ambulatory patient, left [place] department area. A Diagnostic radioactive procedure has taken place, with no further precautions necessary other than routine body substance precautions. More information regarding radiation safety can be found usingthis link: [email or web address]-% 20Diagnostic%20Nuclear%20Medicine%20Procedures.pdf SIGNATURE: CLARA Dunham PATIENT NAME: Paco Whitney DATE: November 29, 2022 TIME: 10:20 AM PAGER/CONTACT #: documented in this encounterMercy Health St. [facility] Hospital05-12-2023 Miscellaneous Notes* Telephone Encounter - Tosha Fernando RN - 11/26/2022 2:33 PM EDT Spoke with patient regarding reminder for stress test on Tuesday and given instructions documented in this encounterMercy Health St. [facility] Hospital05-11-2023 Miscellaneous Notes* Telephone Encounter - Clarice [...] and advise. Monet Santiago documented in this encounterMercy Health St. Anne Hospital05-05-2023 History of Present illness Narrative* Adriel [...] more often than normal? No Based on storage center manager, the following disposition is advised: Symptoms present, not severe. Routed to: No Action Needed GEOFF Education Provided this Outreach: No Adriel Vides RN November 19, 2022 4:34 PM documented in this encounterMercy Health St. Anne Hospital04-27-2023 History of Present illness Narrative* Chalino Valdez DO - 11/11/2022 12:29 PM EDT Images from the original note were not included. [facility] [place] [facility] LOCATION: [address] [place] [address], [place] [address] ESTABLISHED PATIENT PATIENT INFO: Paco Whitney 87 [...] 64.1 Lymph% (%) Date Value 04/16/2019 21.3 Delta% (%) Date Value 04/16/2019 10.5 Eosin% (%) Date Value 04/16/2019 3.0 Baso% (%) Date Value 04/16/2019 1.1 Abs Neut (ANC) (k/uL) Date Value 04/16/2019 5.13 Abs Delta (k/uL) Date Value 04/16/2019 0.84 Abs Eosin [...] Take 1 capsule by mouth once daily. ellhigpr-zmgcfvzfb-tbuuehhsndtoli (CORTISPORIN) 3.5-10,000-1 mg/mL-unit/mL-% otic suspension Use 4 [...] would prefer to still follow Continue surveillance. ANNMARIE in 6-12 months. 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 Discussed treatment options including radical Nx, Partial Nx, cryo I spent 30 minutes in the visit, with more than 50% of the total lwzj-yb-jpdd time of the visit in counseling / coordination of care. Chalino Valdez DO MBA documented in this encounterMercy Health St. Anne Hospital04-13-2023 Miscellaneous Notes* Telephone Encounter - Charis Callahanmaya - 10/28/2022 9:34 AM EDT Patient calling with questions after OV on 10/27/22. Reviewed the plan from OV note from Patient plans to see urologist in a few weeks and will call the office if he decides to proceed with the procedure documented in this encounterMercy Health St. Anne Hospital04-12-2023 History of Present illness Narrative* Eladio Pablo MD - 10/27/2022 2:45 PM EDT Images from the original note were not included. 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 givpvhkx-aatutffef-nuvjhycbzpjggv (CORTISPORIN) 3.5-10,000-1 mg/mL-unit/mL-% otic suspension Use 4 [...] medications for this visit. ALLERGIES Allergen Reactions [facility]] [Other] Other: See Comments Rhabdomyolysis. Demerol [...] pre op cardiac evaluation documented in this encounterMercy Health St. Anne Hospital04-10-2023 Miscellaneous Notes* Telephone Encounter - Korin Calixto Ma - 10/25/2022 2:48 PM EDT Call to pt and notified him of message below from PCP. Appt was changed to see Dr. Palbo on 10/27 this week. He's also scheduled [...] pt. Sofie Crain LPN documented in this encounterMercy Health St. Anne Hospital04-06-2023 History of Present illness Narrative* Adriel Vides RN - 10/21/2022 8:39 AM EDT INSIGHT CDM TELEPHONIC OUTREACH Provider Action/FYI: Patient's spouse answered. They are at [facility], needed to stop and pay a bill. [...] Pt Outreach. End outreach documented in this encounterMercy Health St. Anne Hospital03-29-2023 History of Present illness Narrative* Suzie [...] 13, 2022 12:11 PM documented in this encounterMercy Health St. Anne Hospital03-27-2023 History of Present illness Narrative* Fabio Noriega MD - 10/11/2022 10:29 AM EDTAssociated Order(s): Large Joint Arthro/Inj: bilateral glenohumerals Post-Procedure Diagnose(s): Acute pain of both shoulders; Chronic pain of both shoulders; Primary osteoarthritis of both shoulders Patient presents with: Right Shoulder - Pain, New Left Shoulder - Pain, New Fabio Noriega MD Department of Orthopaedics Orthopaedics [address] [facility] [address] Dept: [phone] Dept October 11, 2022 CHIEF COMPLAINT: Pain [...] bilateral glenohumerals Informed Consent Consent Obtained: Verbal Hunter Protocol A moment to CARE was completed. [...] osteoarthritis and bilateral subacromial subdeltoid calcific bursitis. 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: PENNY Transcribe Date/Time: Oct 13 2022 4:47P [...] None RESULT: Severe bilateral glenohumeral osteoarthritis with exrj-pk-asyg contact. Mild degenerative change bilateral acromioclavicular joints. 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 ridfsdrk-lyokfyqrg-lxdqfvwklysifn (CORTISPORIN) 3.5-10,000-1 mg/mL-unit/mL-% otic suspension Use 4 [...] physician via US mail. Karla Campuzano [address] [facility] [address] Clarice Murillo MD [address] [facility] [address] Fabio Noriega MD documented in this encounterMercy Health St. Anne Hospital03-15-2023 Miscellaneous Notes* Telephone Encounter - Jhoan [...] see Dr. Simpson first. documented in this encounterMercy Health St. Anne Hospital02-20-2023 Instructions* Patient Instructions* Clarice Murillo MD - 09/06/2022 6:51 PM EST Follow up with Dr Nolen, Vascular Surgery, for aneurysm Follow up with Dr Valdez, Urology, for kidney documented in this encounterMercy Health St. 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 Marianne Escobar Ma documented in this encounterMercy Health St. Anne Hospital02-16-2023 Miscellaneous Notes* Telephone Encounter - Sid [...] and advise. Samaria Fajardo documented in this encounterMercy Health St. Anne Hospital02-02-2023 History of Present illness Narrative* Adriel [...] to speak with a social work steam drier operator to help give you support for any [...] you up for automated weekly questionnaires through [employer]. This is an easy way for us [...] PtOutreach and End outreach. documented in this encounterMercy Health St. Anne Hospital01-26-2023 Miscellaneous Notes* Telephone Encounter - Sid [...] 08/12/2022 10:41 AM EST Pharmacy verified in [facility] Patient has been identified by name and [...] advise. Samaria Martins Pss documented in this encounterMercy Health St. Anne Hospital12-30-2022 History of Present illness Narrative* Adriel Vides RN - 07/16/2022 8:55 AM EST HO YEE TELEPHONIC OUTREACH Provider Alaina/KOFFI COPD-At baseline- Pulmonary visit 07/06. Trial increased Symbicort. GH-hgiruhas-hbypdlkeq from 2018 No concerns outside of his degenerative arthritis-Seems to worsen when damp outside. Advised discussion with PCP next visit if worsening. Does not access ITeam Contact made with patient: Yes Patient identified [...] to speak with a social work steam drier operator to help give you support for any [...] you up for automated weekly questionnaires through [employer]. This is an easy way for us [...] PtOutreach and End outreach. documented in this encounterMercy Health St. Anne Hospital12-28-2022 Miscellaneous Notes* Telephone Encounter - Francia Luna MD - 07/14/2022 10:47 AM EST Spoke with patient regarding results of chest CT. ILD has not progressed and RLL mass-like infiltrate is the same compared to 2018, consistent with rounded atelectasis. documented in this encounterMercy Health St. Anne Hospital12-22-2022 History of Present illness Narrative* Suzie [...] 08, 2022 11:57 AM documented in this encounterMercy Health St. Anne Hospital12-20-2022 History of Present illness Narrative* Francia Luna MD - 07/06/2022 1:30 PM EST Images from the original note were not included. . [facility] [place] Note Patient name: Paco Whitney PCP: Clarice [...] cerebral ischemia x [address] Re[address] [facility]] [Other] Other: See Comments Rhabdomyolysis. Demerol [...] on empty stomach, 1/2 hr before meal. cmdcbwmr-nfiyksnhr-kxekuynydeszuu (CORTISPORIN) 3.5-10,000-1 mg/mL-unit/mL-% otic suspension Use 4 [...] W/COLLJ SPEC WHEN PFRMD 09/19/2011 [facility]oscopy [facility] HERNIA REPAIR HX 04/03/13 PAST SURGICAL [...] the chest 3. Former cigarette smoker -Former [id number] smoker having quit in 1990 without sequelae of significant COPD or emphysema -Continued abstinence Francia Luna MD [facility] [place] documented in this encounterMer[facility] Nurse Note* Briana Nuñez LPN - 07/06/2022 1:25 PM EST Intake information documented in the prior visit with TUYET Enciso today. documented in this encounterMer[facility]11-29-2022 Miscellaneous Notes* Telephone Encounter - Elizabeth Alvarez LPN - 2022 10:49 AM EST [facility] calling to clarify rx for Doxycyline. Rx says one tablet twice daily for 10 days, rx sent for 10 tablets only. Please send new rx with amount wanted please. Please advise documented in this encounterMercy Health St. [facility]11-29-2022 Instructions* Patient Instructions* Tiffanie Schwartz APRN.CNP - 2022 10:10 AM EST Continue prednisone and Doxycycline Start Mucinex Follow up with Dr. Bravo documented in this encounterMercy Health St. [facility]11-29-2022 History of Present illness Narrative* Tiffanie [...] W/COLLJ SPEC WHEN PFRMD 09/19/2011 Colonoscopy [facility] HERNIA REPAIR HX 04/03/13 PAST SURGICAL [...] on empty stomach, 1/2 hr before meal. mxrthoqc-yrhairxml-qfkmmbqgvpxfkw (CORTISPORIN) 3.5-10,000-1 mg/mL-unit/mL-% otic suspension Use 4 [...] exacerbation of chronic obstructive pulmonary disease (COPD) ([facility]) - ICD9: 491.21, ICD10: J44.1 - PREDNISONE 10 MG TABLET - DOXYCYCLINE HYCLATE 100 MG TABLET - GUAIFENESIN ER 600 MG TABLET, EXTENDED RELEASE 12 HR - CONSULT TO PULMONARY MEDICINE Tiffanie Schwartz APRN.WARHEAD MAINTENANCE SPECIALIST documented in this encounterMercy Health St. [facility]11-28-2022 History of Present illness Narrative* Francia [...] this appointment? No Reason for Outreach [facility] Payer: Payor: PRIMETIME / Plan: [...] Action/: COPD Received flu vaccine. Seen in [facility] care 06/08 for cough Pulse ox 95% [...] PCP within 7 days - Routed to [facility] [[id number]] Medications Do you have any questions about [...] to speak with a social work steam drier operator to help give you support for any [...] you up for automated weekly questionnaires through [employer]. This is an easy way for us [...] my name is Adriel Vides RN your Wheelchair Van Operator First Responder [facility] the [facility] I am calling today for your bi-weekly check in. I am sorry I missed your call. I will reach out to you again tomorrow. (if the third call I will reach out to you again next week) Enter next patient outreach date forthe following using the Track Pt Outreach. End outreach. documented in this encounterMercy Health St. [facility]11-23-2022 Miscellaneous Notes* Telephone Encounter - Charis [...] ER. Jyothi Mosley APRN.CNP documented in this encounterMercy Health St. [facility]11-22-2022 History of Present illness Narrative* Amy [...] 08, 2022 3:06 PM documented in this encounterMercy [facility] St. [facility]11-18-2022 History of Present illness Narrative* Clarice [...] W/COLLJ SPEC WHEN PFRMD 09/19/2011 [facility]oscopy [facility] HERNIA REPAIR HX 04/03/13 PAST SURGICAL [...] Inhale 2 Puffs as instructed twice daily. qnsptpfp-iegkzigye-qfcrmmfbivwmso (CORTISPORIN) 3.5-10,000-1 mg/mL-unit/mL-% otic suspension Use 4 [...] Past Histories independently gathered by the clinical field support technician and the remaining scribed note accurately describes [...] AM. Marianne Escobar Ma documented in this encounterMercy [facility] St. [facility]10-14-2022 Miscellaneous Notes* Telephone Encounter - Marianne [...] and advise. Charis Santiago documented in this encounterMercy Health St. [facility]09-26-2022 History of Present illness Narrative* Marianne [...] to speak with a social work steam drier operator to help give you support for any [...] you up for automated weekly questionnaires through [employer]. This is an easy way for us [...] PtOutreach and End outreach. documented in this encounterMercy [facility] St. [facility]08-29-2022 History of Present illness Narrative* Marianne [...] to speak with a social work steam drier operator to help give you support for any [...] you up for automated weekly questionnaires through [employer]. This is an easy way for us [...] PtOutreach and End outreach. documented in this encounterMer[facility]. [facility]08-02-2022 History of Present illness Narrative* Marianne [...] to speak with a social work steam drier operator to help give you support for any [...] you up for automated weekly questionnaires through [employer]. This is an easy way for us [...] PtOutreach and End outreach. documented in this encounterMer[facility]. [facility]08-01-2022 History of Present illness Narrative* Marianne Balderas RN - 02/15/2022 10:48 AM EDT INSIGHT CD TELEPHONIC OUTREACH Provider Action/FYI: Contact made with patient: No - Left message Hello my name is Marianne Balderas RN your Wheelchair Van Operator First Responder [facility] I am calling today for your monthly check in. I am sorry I missed your call. I will reach out to you again tomorrow. (if the third call I will reach out to you again next week) Enter next patient outreach datefor the following using the Track Pt Outreach. End outreach. documented in this encounterMercy Health St. [facility]07-21-2022 Miscellaneous Notes* Telephone Encounter - Sid [...] return call. Johanna Uribe documented in this encounterMercy Health St. [facility]07-05-2022 History of Present illness Narrative* Marianne [...] to speak with a social work steam drier operator to help give you support for any [...] you up for automated weekly questionnaires through [employer]. This is an easy way for us [...] PtOutreach and End outreach. documented in this encounterMercy Health St. [facility]05-20-2022 Miscellaneous Notes* Telephone Encounter - Elisa Granger Ma - 12/04/2021 10:32 AM EDT Pt notified. * Telephone Encounter - Clarice Murillo MD - 12/03/2021 6:08 PM EDT Please notify patient that his blood work all looks good. Clarice Murillo MD documented in this encounterMercy Health St. [facility]05-16-2022 History of Present illness Narrative* Clarice [...] W/COLLJ SPEC WHEN PFRMD 09/19/2011 [facility] HERNIA REPAIR HX 9/17/13 PAST SURGICAL [...] Inhale 2 Puffs as instructed twice daily. mmleytdx-cfslibclu-gzzaebmqzdjwqh (CORTISPORIN) 3.5-10,000-1 mg/mL-unit/mL-% otic suspension Use 4 [...] Past Histories independently gathered by the clinical field support technician and the remaining scribed note accurately describes [...] PM. Marianne Escobar Ma documented in this encounterMercy Health St. [facility]05-16-2022 Nurse Note* Marianne Escobar Ma - [...] Falls and Maintaining Balance documented in this encounterMercy Health St. [facility]04-18-2022 History of Present illness Narrative* Marianne [...] to speak with a social work steam drier operator to help give you support for any [...] you up for automated weekly questionnaires through [employer]. This is an easy way for us [...] PtOutreach and End outreach. documented in this encounterMercy [facility] St. [facility]03-21-2022 History of Present illness Narrative* Marianne [...] to speak with a social work steam drier operator to help give you support for any [...] you up for automated weekly questionnaires through [employer]. This is an easy way for us [...] PtOutreach and End outreach. documented in this encounterMercy [facility] St. [facility]12-23-2014 History of Past illness Narrative* Problem Noted Date Resolved Date AAA (abdominal aortic aneurysm) 07/09/2014 11/25/2020 Overview: CT abd 06/2014 showing 4.4 x 4.2 cm AAA documented as of this encounter (statuses as of 10/05/2021) [facility] of Past illness Narrative* Problem Noted Date Resolved Date AAA (abdominal aortic aneurysm) 07/09/2014 11/25/2020 Overview: CT abd 06/2014 showing 4.4 x 4.2 cm AAA documented as of this encounter (statuses as of 11/02/2021) [facility] of Past illness Narrative* Problem Noted Date Resolved Date AAA (abdominal aortic aneurysm) 07/09/2014 11/25/2020 Overview: CT abd 06/2014 showing 4.4 x 4.2 cm AAA documented as of this encounter (statuses as of 12/01/2021) [facility] of Past illness Narrative* Problem Noted Date Resolved Date AAA (abdominal aortic aneurysm) 07/09/2014 11/25/2020 Overview: CT abd 06/2014 showing 4.4 x 4.2 cm AAA documented as of this encounter (statuses as of 12/04/2021) [facility] of Past illness Narrative* Problem Noted Date Resolved Date AAA (abdominal aortic aneurysm) 07/09/2014 11/25/2020 Overview: CT abd 06/2014 showing 4.4 x 4.2 cm AAA documented as of this encounter (statuses as of 01/19/2022) [facility] Past illness Narrative* Problem Noted Date Resolved Date AAA (abdominal aortic aneurysm) 07/09/2014 11/25/2020 Overview: CT abd 06/2014 showing 4.4 x 4.2 cm AAA documented as of this encounter (statuses as of 02/04/2022) [facility] illness Narrative* Problem Noted Date Resolved Date AAA (abdominal aortic aneurysm) 07/09/2014 11/25/2020 Overview: CT abd 06/2014 showing 4.4 x 4.2 cm AAA documented as of this encounter (statuses as of 02/15/2022) [facility] Narrative* Problem Noted Date Resolved Date AAA (abdominal aortic aneurysm) 07/09/2014 11/25/2020 Overview: CT abd 06/2014 showing 4.4 x 4.2 cm AAA documented as of this encounter (statuses as of 02/16/2022) [facility] Narrative* Problem Noted Date Resolved Date AAA (abdominal aortic aneurysm) 07/09/2014 11/25/2020 Overview: CT abd 06/2014 showing 4.4 x 4.2 cm AAA documented as of this encounter (statuses as of 03/15/2022) [facility] Narrative* Problem Noted Date Resolved Date AAA (abdominal aortic aneurysm) 07/09/2014 11/25/2020 Overview: CT abd 06/2014 showing 4.4 x 4.2 cm AAA documented as of this encounter (statuses as of 04/12/2022) [facility] Narrative* Problem Noted Date Resolved Date AAA (abdominal aortic aneurysm) 07/09/2014 11/25/2020 Overview: CT abd 06/2014 showing 4.4 x 4.2 cm AAA documented as of this encounter (statuses as of 04/30/2022) [facility] Narrative* Problem Noted Date Resolved Date AAA (abdominal aortic aneurysm) 07/09/2014 11/25/2020 Overview: CT abd 06/2014 showing 4.4 x 4.2 cm AAA documented as of this encounter (statuses as of 06/04/2022) [facility] Narrative* Problem Noted Date Resolved Date AAA (abdominal aortic aneurysm) 07/09/2014 11/25/2020 Overview: CT abd 06/2014 showing 4.4 x 4.2 cm AAA documented as of this encounter (statuses as of 06/14/2022) [facility] Narrative* Problem Noted Date Resolved Date AAA (abdominal aortic aneurysm) 07/09/2014 11/25/2020 Overview: CT abd 06/2014 showing 4.4 x 4.2 cm AAA documented as of this encounter (statuses as of 2022) [facility] Narrative* Problem Noted Date Resolved Date AAA (abdominal aortic aneurysm) 07/09/2014 11/25/2020 Overview: CT abd 06/2014 showing 4.4 x 4.2 cm AAA documented as of this encounter (statuses as of 2022) [facility] Narrative* Problem Noted Date Resolved Date AAA (abdominal aortic aneurysm) 07/09/2014 11/25/2020 Overview: CT abd 06/2014 showing 4.4 x 4.2 cm AAA documented as of this encounter (statuses as of 07/05/2022) [address]23-2014 History of Past illness Narrative* Problem Noted Date Resolved Date AAA (abdominal aortic aneurysm) 07/09/2014 11/25/2020 Overview: CT abd 06/2014 showing 4.4 x 4.2 cm AAA documented as of this encounter (statuses as of 07/06/2022) [address]23-2014 History of Past illness Narrative* Problem Noted Date Resolved Date AAA (abdominal aortic aneurysm) 07/09/2014 11/25/2020 Overview: CT abd 06/2014 showing 4.4 x 4.2 cm AAA documented as of this encounter (statuses as of 07/20/2022) [facility] Narrative* Problem Noted Date Resolved Date AAA (abdominal aortic aneurysm) 07/09/2014 11/25/2020 Overview: CT abd 06/2014 showing 4.4 x 4.2 cm AAA documented as of this encounter (statuses as of 07/21/2022) [facility] Narrative* Problem Noted Date Resolved Date AAA (abdominal aortic aneurysm) 07/09/2014 11/25/2020 Overview: CT abd 06/2014 showing 4.4 x 4.2 cm AAA documented as of this encounter (statuses as of 08/12/2022) [facility] Narrative* Problem Noted Date Resolved Date AAA (abdominal aortic aneurysm) 07/09/2014 11/25/2020 Overview: CT abd 06/2014 showing 4.4 x 4.2 cm AAA documented as of this encounter (statuses as of 08/19/2022) [facility] Narrative* Problem Noted Date Resolved Date AAA (abdominal aortic aneurysm) 07/09/2014 11/25/2020 Overview: CT abd 06/2014 showing 4.4 x 4.2 cm AAA documented as of this encounter (statuses as of 09/02/2022) [place] [id number] History of Past illness Narrative* Problem Noted Date Resolved Date AAA (abdominal aortic aneurysm) 07/09/2014 11/25/2020 Overview: CT abd 06/2014 showing 4.4 x 4.2 cm AAA documented as of this encounter (statuses as of 09/07/2022) [facility] Narrative* Problem Noted Date Resolved Date AAA (abdominal aortic aneurysm) 07/09/2014 11/25/2020 Overview: CT abd 06/2014 showing 4.4 x 4.2 cm AAA documented as of this encounter (statuses as of 09/29/2022) [facility] Narrative* Problem Noted Date Resolved Date AAA (abdominal aortic aneurysm) 07/09/2014 11/25/2020 Overview: CT abd 06/2014 showing 4.4 x 4.2 cm AAA documented as of this encounter (statuses as of 10/06/2022) [facility] Narrative* Problem Noted Date Resolved Date AAA (abdominal aortic aneurysm) 07/09/2014 11/25/2020 Overview: CT abd 06/2014 showing 4.4 x 4.2 cm AAA documented as of this encounter (statuses as of 10/21/2022) [facility] Narrative* Problem Noted Date Resolved Date AAA (abdominal aortic aneurysm) 07/09/2014 11/25/2020 Overview: CT abd 06/2014 showing 4.4 x 4.2 cm AAA documented as of this encounter (statuses as of 10/26/2022) [facility] Narrative* Problem Noted Date Resolved Date AAA (abdominal aortic aneurysm) 07/09/2014 11/25/2020 Overview: CT abd 06/2014 showing 4.4 x 4.2 cm AAA documented as of this encounter (statuses as of 10/28/2022) [facility] Narrative* Problem Noted Date Resolved Date AAA (abdominal aortic aneurysm) 07/09/2014 11/25/2020 Overview: CT abd 06/2014 showing 4.4 x 4.2 cm AAA documented as of this encounter (statuses as of 10/29/2022) [facility] Narrative* Problem Noted Date Resolved Date AAA (abdominal aortic aneurysm) 07/09/2014 11/25/2020 Overview: CT abd 06/2014 showing 4.4 x 4.2 cm AAA documented as of this encounter (statuses as of 11/11/2022) [facility] Narrative* Problem Noted Date Resolved Date AAA (abdominal aortic aneurysm) 07/09/2014 11/25/2020 Overview: CT abd 06/2014 showing 4.4 x 4.2 cm AAA documented as of this encounter (statuses as of 11/15/2022) [facility] Narrative* Problem Noted Date Resolved Date AAA (abdominal aortic aneurysm) 07/09/2014 11/25/2020 Overview: CT abd 06/2014 showing 4.4 x 4.2 cm AAA documented as of this encounter (statuses as of 11/20/2022) [facility] Narrative* Problem Noted Date Resolved Date AAA (abdominal aortic aneurysm) 07/09/2014 11/25/2020 Overview: CT abd 06/2014 showing 4.4 x 4.2 cm AAA documented as of this encounter (statuses as of 11/26/2022) [facility] Narrative* Problem Noted Date Resolved Date AAA (abdominal aortic aneurysm) 07/09/2014 11/25/2020 Overview: CT abd 06/2014 showing 4.4 x 4.2 cm AAA documented as of this encounter (statuses as of 11/26/2022) [facility] Narrative* Problem Noted Date Resolved Date AAA (abdominal aortic aneurysm) 07/09/2014 11/25/2020 Overview: CT abd 06/2014 showing 4.4 x 4.2 cm AAA documented as of this encounter (statuses as of 11/30/2022) [facility] Narrative* Problem Noted Date Resolved Date AAA (abdominal aortic aneurysm) 07/09/2014 11/25/2020 Overview: CT abd 06/2014 showing 4.4 x 4.2 cm AAA documented as of this encounter (statuses as of 11/30/2022) [facility] Narrative* Problem Noted Date Resolved Date AAA (abdominal aortic aneurysm) 07/09/2014 11/25/2020 Overview: CT abd 06/2014 showing 4.4 x 4.2 cm AAA documented as of this encounter (statuses as of 12/23/2022) [facility] Narrative* Problem Noted Date Resolved Date AAA (abdominal aortic aneurysm) 07/09/2014 11/25/2020 Overview: CT abd 06/2014 showing 4.4 x 4.2 cm AAA documented as of this encounter (statuses as of 01/06/2023) [facility] Past [facility] Narrative* Problem Noted Date Diagnosed Date Resolved Date AAA (abdominal aortic aneurysm) 07/09/2014 11/25/2020 Overview: CT abd 06/2014 showing 4.4 x 4.2 cm AAA documented as of this encounter (statuses as of 01/27/2023) [facility] Past [facility] Narrative* Problem Noted Date Diagnosed Date Resolved Date AAA (abdominal aortic aneurysm) 07/09/2014 11/25/2020 Overview: CT abd 06/2014 showing 4.4 x 4.2 cm AAA documented as of this encounter (statuses as of 01/28/2023) [place] [address]2014 History of Past illness Narrative* Problem Noted Date Diagnosed Date Resolved Date AAA (abdominal aortic aneurysm) 07/09/2014 11/25/2020 Overview: CT abd 06/2014 showing 4.4 x 4.2 cm AAA documented as of this encounter (statuses as of 02/24/2023) [facility] Narrative* Problem Noted Date Diagnosed Date Resolved Date AAA (abdominal aortic aneurysm) 07/09/2014 11/25/2020 Overview: CT abd 06/2014 showing 4.4 x 4.2 cm AAA documented as of this encounter (statuses as of 03/02/2023) [facility] Narrative* Problem Noted Date Diagnosed Date Resolved Date AAA (abdominal aortic aneurysm) 07/09/2014 11/25/2020 Overview: CT abd 06/2014 showing 4.4 x 4.2 cm AAA documented as of this encounter (statuses as of 03/02/2023) [facility] Narrative* Problem Noted Date Diagnosed Date Resolved Date AAA (abdominal aortic aneurysm) 07/09/2014 11/25/2020 Overview: CT abd 06/2014 showing 4.4 x 4.2 cm AAA documented as of this encounter (statuses as of 03/08/2023) [facility] Narrative* Problem Noted Date Diagnosed Date Resolved Date AAA (abdominal aortic aneurysm) 07/09/2014 11/25/2020 Overview: CT abd 06/2014 showing 4.4 x 4.2 cm AAA documented as of this encounter (statuses as of 03/15/2023) [facility] Narrative* Problem Noted Date Diagnosed Date Resolved Date AAA (abdominal aortic aneurysm) 07/09/2014 11/25/2020 Overview: CT abd 06/2014 showing 4.4 x 4.2 cm AAA documented as of this encounter (statuses as of 03/30/2023) [facility] Narrative* Problem Noted Date Diagnosed Date Resolved Date AAA (abdominal aortic aneurysm) 07/09/2014 11/25/2020 Overview: CT abd 06/2014 showing 4.4 x 4.2 cm AAA documented as of this encounter (statuses as of 05/03/2023) [facility] Past [facility] Narrative* Problem Noted Date Diagnosed Date Resolved Date AAA (abdominal aortic aneurysm) 07/09/2014 11/25/2020 Overview: CT abd 06/2014 showing 4.4 x 4.2 cm AAA documented as of this encounter (statuses as of 05/13/2023) [facility] Narrative* Problem Noted Date Diagnosed Date Resolved Date AAA (abdominal aortic aneurysm) 07/09/2014 11/25/2020 Overview: CT abd 06/2014 showing 4.4 x 4.2 cm AAA documented as of this encounter (statuses as of 05/22/2023) [facility] Narrative* Problem Noted Date Diagnosed Date Resolved Date AAA (abdominal aortic aneurysm) 07/09/2014 11/25/2020 Overview: CT abd 06/2014 showing 4.4 x 4.2 cm AAA documented as of this encounter (statuses as of 05/22/2023) [facility] Narrative* Problem Noted Date Diagnosed Date Resolved Date AAA (abdominal aortic aneurysm) 07/09/2014 11/25/2020 Overview: CT abd 06/2014 showing 4.4 x 4.2 cm AAA documented as of this encounter (statuses as of 05/22/2023) [facility] Narrative* Problem Noted Date Diagnosed Date Resolved Date AAA (abdominal aortic aneurysm) 07/09/2014 11/25/2020 Overview: CT abd 06/2014 showing 4.4 x 4.2 cm AAA documented as of this encounter (statuses as of 05/22/2023) [facility] Narrative* Problem Noted Date Diagnosed Date Resolved Date AAA (abdominal aortic aneurysm) 07/09/2014 11/25/2020 Overview: CT abd 06/2014 showing 4.4 x 4.2 cm AAA documented as of this encounter (statuses as of 06/03/2023) [facility] Narrative* Problem Noted Date Diagnosed Date Resolved Date AAA (abdominal aortic aneurysm) 07/09/2014 11/25/2020 Overview: CT abd 06/2014 showing 4.4 x 4.2 cm AAA documented as of this encounter (statuses as of 07/05/2023) [facility] Narrative* Problem Noted Date Diagnosed Date Resolved Date AAA (abdominal aortic aneurysm) 07/09/2014 11/25/2020 Overview: CT abd 06/2014 showing 4.4 x 4.2 cm AAA documented as of this encounter (statuses as of 09/14/2023) [facility] Narrative* Problem Noted Date Diagnosed Date Resolved Date AAA (abdominal aortic aneurysm) 07/09/2014 11/25/2020 Overview: CT abd 06/2014 showing 4.4 x 4.2 cm AAA documented as of this encounter (statuses as of 10/03/2023) [facility] Narrative* Problem Noted Date Diagnosed Date Resolved Date AAA (abdominal aortic aneurysm) 07/09/2014 11/25/2020 Overview: CT abd 06/2014 showing 4.4 x 4.2 cm AAA documented as of this encounter (statuses as of 10/07/2023) [facility] Narrative* Problem Noted Date Diagnosed Date Resolved Date AAA (abdominal aortic aneurysm) 07/09/2014 11/25/2020 Overview: CT abd 06/2014 showing 4.4 x 4.2 cm AAA documented as of this encounter (statuses as of 10/24/2023) [facility] Diagnosis Hyperlipidemia, unspecified hyperlipidemia type- Primary [...] Vertebrobasilar artery syndrome [facility] Diagnosis Tinea pedis of left foot Dermatophytosis of foot [facility] Diagnosis Hyperlipidemia, unspecified hyperlipidemia type documented [facility] Diagnosis Essential hypertension, benign- Primary Hyperlipidemia, [...] region and thigh [facility] Diagnosis Acute exacerbation of chronic obstructive pulmonary disease (COPD) (HCC)- Primary Obstructive chronic bronchitis with exacerbation [facility] Diagnosis Acute exacerbation of chronic obstructive pulmonary disease (COPD) (HCC) Obstructive chronic bronchitis with exacerbation 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* Diagnosis GERD without esophagitis Esophageal reflux [facility]* Diagnosis Acute pain of both shoulders- Primary Right renal mass Unspecified disorder of kidney and ureter Abdominal aortic aneurysm (AAA) without rupture, unspecified part (HCC) [facility] Acute pain of both shoulders- Primary Right renal mass Unspecified disorder of kidney and ureter Abdominal aortic aneurysm (AAA) without rupture, unspecified part (HCC) [facility] Diagnosis Bilateral shoulder pain, unspecified chronicity- Primary [facility] Diagnosis Abdominal aortic aneurysm (AAA) without rupture, unspecified part (HCC) [facility]* Diagnosis Benign non-nodular prostatic hyperplasia with lower urinary tract symptoms- Primary Right renal mass Unspecified disorder of kidney and ureter [facility] Diagnosis Chronic pain of both shoulders- Primary Pain in joint, shoulder region Acute pain of both shoulders Primary osteoarthritis of both shoulders [facility] Diagnosis BENIGN HYPERTENSION Essential hypertension, benign documented [facility]* Diagnosis Encounter for screening for cardiovascular disorders Screening for other and unspecified cardiovascular conditions documented [facility]* Diagnosis Asthma with COPD with exacerbation (HCC)- Primary Chronic obstructive asthma with exacerbation Lung nodules Other nonspecific abnormal finding of lung field Former cigarette smoker Personal history of tobacco use, presenting hazards to health Abdominal aortic aneurysm (AAA) without rupture, unspecified part (HCC) [facility] Diagnosis Pre-operative examination- Primary Preoperative examination, [...] unspecified part (HCC) [facility] Diagnosis Procedure not carried out- Primary Procedure not carried out for other reasons documented [facility] Diagnosis Abdominal aortic aneurysm (AAA) without rupture, unspecified part (HCC)- Primary Peripheral arterial disease (HCC) Peripheral vascular disease, unspecified Primary hypertension Unspecified essential hypertension Elevated HDL Other symptoms involving cardiovascular system documented [facility]* Diagnosis COPD with exacerbation (HCC)- Primary Obstructive chronic bronchitis with exacerbation Essential hypertension, benign Hyperlipidemia, unspecified hyperlipidemia type Abdominal aortic aneurysm (AAA) without rupture, unspecified part (HCC) GERD without esophagitis Esophageal reflux Acute pain of both shoulders Neuropathy Mononeuritis of unspecified site [facility]* Diagnosis Hyperlipidemia, unspecified hyperlipidemia type documented [facility]* Diagnosis 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) [facility]* Diagnosis 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) [facility]* Diagnosis Bilateral shoulder pain, unspecified chronicity documented [facility]* Diagnosis Lung nodules Other nonspecific abnormal finding of lung field documented [facility]* Diagnosis Asthma-COPD overlap syndrome- Primary Lung [...] of unspecified site [facility]* Diagnosis Bronchitis- Primary Bronchitis, not specified as acute or chronic GERD without esophagitis Esophageal reflux Essential hypertension, benign Abdominal aortic aneurysm (AAA) without rupture, unspecified part (HCC) Hyperlipidemia, unspecified hyperlipidemia type Neuropathy Mononeuritis of unspecified site Chronic obstructive pulmonary disease, unspecified COPD type (HCC) Acute pain of both shoulders [facility]* Diagnosis BENIGN HYPERTENSION Essential hypertension, benign documented [facility]* Diagnosis Asthma-COPD overlap syndrome (HCC) documented [facility]* Diagnosis COPD with chronic bronchitis (HCC)- Primary Obstructive chronic bronchitis without exacerbation Right lower lobe lung mass Swelling, mass, or lump in chest ILD (interstitial lung disease) (HCC) Postinflammatory pulmonary fibrosis Former cigarette smoker Personal history of tobacco use, presenting hazards to health documented [facility] this [facility]* Diagnosis Essential hypertension, benign- Primary Hyperlipidemia, unspecified hyperlipidemia type Abdominal aortic aneurysm (AAA) without rupture, unspecified part (HCC) GERD without esophagitis Esophageal reflux Neuropathy Mononeuritis of unspecified site Chronic obstructive pulmonary disease, unspecified COPD type (HCC) Acute pain of both shoulders [facility] Diagnosis Neuropathy- Primary Mononeuritis of unspecified site [facility]* Diagnosis Pre-operative examination- Primary Preoperative examination, [...] single bacterial disease [facility] Diagnosis Acute cough Pre-operative examination- Primary [...] Solitary pulmonary nodule [facility] Diagnosis Pre-operative examination- Primary Preoperative examination, [...] unspecified hyperlipidemia type documented [facility]* Diagnosis Pre-operative examination- Primary Preoperative examination, [...] and behavioral disorders documented in this encounter [facility]* Diagnosis Pre-operative examination- Primary Preoperative examination, [...] unspecified chronicity- Primary [facility] Diagnosis Pre-operative examination- Primary Preoperative examination, [...] esophagitis Esophageal reflux documented [facility]* Diagnosis Pre-operative examination- Primary Preoperative examination, [...] hazards to health [facility] Diagnosis Pre-operative examination- Primary Preoperative examination, [...] overlap syndrome (HCC) [facility] Diagnosis Pre-operative examination- Primary Preoperative examination, [...] asthma with exacerbation [facility] Diagnosis Pre-operative examination- Primary Preoperative examination, [...] Essential hypertension, benign documented in this encounter [facility] note* Diagnosis Pre-operative examination- Primary Preoperative examination, [...] Pedal edema Edema documented in this encounter [facility] note* Diagnosis Pre-operative examination- Primary Preoperative examination, [...] joint, shoulder region [facility] Diagnosis Pre-operative examination- Primary Preoperative [...] osteoarthrosis, lower leg [facility] Diagnostic Procedure Only (Routine) - Pending Review Specialty Diagnoses / Procedures Referred By Contac t Referred To Contact XR IMAGING Diagnoses Bilateral shoulder pain, unspecified chronicity Procedures XR SHOULDER GENERAL 3V OR MORE AP/TRUE AP/OTHER RIGHT RADEX SHOULDER COMPLETE MINIMUM 2 VIEWS Fabio Noriega MD [address] [place] [address] Xr Imaging Referral ID Status Reason Start Date Expiration Date Visits Requested Visits Authorized [id number] Pending Review Auto-Generat ed Referral 10/06/2022 11/05/2023 1 1 * Diagnostic Procedure Only (Routine) - Pending Review Specialty Diagnoses / Procedures Referred By Contac t Referred To Contact XR IMAGING Diagnoses Bilateral shoulder pain, unspecified chronicity Procedures XR SHOULDER GENERAL 3V OR MORE AP/TRUE AP/OTHER LEFT RADEX SHOULDER COMPLETE MINIMUM 2 VIEWS Fabio Noriega MD [address] [place] [address] Xr Imaging Referral ID Status Reason Start Date Expiration Date Visits Requested Visits Authorized [id number] Pending Review Auto-Generat ed Referral 10/06/2022 11/05/2023 1 1 [facility] for referral (narrative)* Diagnostic Procedure Only (Routine) - Closed Specialty Diagnoses / Procedures Referred By Contac t Referred To Contact MOLECULAR & FUNCTIONAL IMAGING Diagnoses Encounter for screening for cardiovascular disorders Procedures NM CARDIAC PERF STRESS/PHARM MYOCARDIAL SPECT MULTIPLE STUDIES Eladio Pablo MD [address] [place] [address] Molecular & Functional Imaging [address] [place] [address] Referral ID Status Reason Start Date Expiration Date V isits Requested Visits Authorized [id number] Closed Auto-Generate d Referral 11/17/2022 07/17/2023 1 1 [facility] for referral (narrative)* Outpatient Procedure (Routine) - Pending Review Specialty Diagnoses / Procedures Referred By Contac t Referred To Contact [facility] Diagnoses Abdominal aortic aneurysm (AAA) without rupture, unspecified part (HCC) Procedures US ABD AORTA COMPLETE VAS LAB DUP-SCAN AORTA IVC ILIAC VASCL/BPGS COMPLETE Ibeth Paredes, MEDICAL TECHNOLOGIST CHEMISTRY.WARHEAD MAINTENANCE SPECIALIST [address] [place] [address] [facility] Vascular Medicine [address] [place] [address] Referral ID Status Reason Start Date Expiration Date Visits Requested Visits Authorized [id number] Pending Review Auto-Generat ed Referral 09/08/2023 03/07/2024 1 1 Electronically signed by Ibeth Paredes MEDICAL TECHNOLOGIST CHEMISTRY.WARHEAD MAINTENANCE SPECIALIST at 03/08/2023 10:53 AM EDT [facility] for referral (narrative)* Diagnostic Procedure Only (Routine) - Closed Specialty Diagnoses / Procedures Referred By Contac t Referred To Contact XR IMAGING Diagnoses Bilateral shoulder pain, unspecified chronicity Procedures XR SHOULDER GENERAL 3V OR MORE AP/TRUE AP/OTHER RIGHT RADEX SHOULDER COMPLETE MINIMUM 2 VIEWS Fabio Noriega MD [address] [place] [address] [place] [address] Referral ID Status Reason Start Date Expiration Date V isits Requested Visits Authorized [id number] Closed Auto-Generate d Referral 10/06/2022 11/05/2023 1 1 * Diagnostic Procedure Only (Routine) - Closed Specialty Diagnoses / Procedures Referred By Contac t Referred To Contact XR IMAGING Diagnoses Bilateral shoulder pain, unspecified chronicity Procedures XR SHOULDER GENERAL 3V OR MORE AP/TRUE AP/OTHER LEFT RADEX SHOULDER COMPLETE MINIMUM 2 VIEWS Fabio Noriega MD [address] [place] [address] [place] [address] Referral ID Status Reason Start Date Expiration Date V isits Requested Visits Authorized [id number] Closed Auto-Generate d Referral 10/06/2022 11/05/2023 1 1 [facility] for referral (narrative)* Diagnostic Procedure Only (Routine) - New Request Specialty Diagnoses / Procedures Referred By Contac t Referred To Contact XR IMAGING Diagnoses Bilateral shoulder pain, unspecified chronicity Procedures XR SHOULDER GENERAL 3V OR MORE AP/TRUE AP/OTHER RIGHT RADEX SHOULDER COMPLETE MINIMUM 2 VIEWS Fabio Noriega MD [address] [place] [address] [place] [address] Referral ID Status Reason Start Date Expiration Date Visits Requested Visits Authorized [id number] New Request Auto-Generat ed Referral 08/15/2024 09/14/2025 1 1 * Diagnostic Procedure Only (Routine) - New Request Specialty Diagnoses / Procedures Referred By Contac t Referred To Contact XR IMAGING Diagnoses Bilateral shoulder pain, unspecified chronicity Procedures XR SHOULDER GENERAL 3V OR MORE AP/TRUE AP/OTHER LEFT RADEX SHOULDER COMPLETE MINIMUM 2 VIEWS Fabio Noriega MD [address] [place] [address] [place] [address] Referral ID Status Reason Start Date Expiration Date Visits Requested Visits Authorized [id number] New Request Auto-Generat ed Referral 08/15/2024 09/14/2025 1 1 [facility] for visit Narrative* Diagnostic Procedure Only (Routine) - Closed Specialty Diagnoses / Procedures Referred By Contac t Referred To Contact MOLECULAR & FUNCTIONAL IMAGING Diagnoses Encounter for screening for cardiovascular disorders Procedures NM CARDIAC PERF STRESS/PHARM MYOCARDIAL SPECT MULTIPLE STUDIES Eladio Pablo MD [address] [place] [address] Molecular & Functional Imaging [address] [place] [address] Referral ID Status Reason Start Date Expiration Date V isits Requested Visits Authorized [id number] Closed Auto-Generate d Referral 11/17/2022 07/17/2023 1 1 [facility] for visit Narrative* Diagnostic Procedure Only (Routine) - Closed Specialty Diagnoses / Procedures Referred By Contac t Referred To Contact XR IMAGING Diagnoses Bilateral shoulder pain, unspecified chronicity Procedures XR SHOULDER GENERAL 3V OR MORE AP/TRUE AP/OTHER RIGHT RADEX SHOULDER COMPLETE MINIMUM 2 VIEWS Fabio Noriega MD [address] [place] [address] [place] [address] Referral ID Status Reason Start Date Expiration Date V isits Requested Visits Authorized [id number] Closed Auto-Generate d Referral 10/06/2022 11/05/2023 1 1 [facility] for visit Narrative* Diagnostic Procedure Only (Routine) - Closed Specialty Diagnoses / Procedures Referred By Contac t Referred To Contact XR IMAGING Diagnoses Chronic pain of both shoulders Procedures XR SHOULDER GENERAL 3V OR MORE AP/TRUE AP/OTHER LEFT RADEX SHOULDER COMPLETE MINIMUM 2 VIEWS Clarice Murillo MD [address] [place] [address] Phone: tel: fax: [place] [address] Referral ID Status Reason Start Date Expiration Date V isits Requested Visits Authorized [id number] Closed Auto-Generate d Referral 02/05/2025 03/07/2026 [address] [facility] Diagnostic Procedure Only (Routine) - Closed Specialty Diagnoses / Procedures Referred By Contac t Referred To Contact XR IMAGING Diagnoses Primary osteoarthritis of right knee Procedures XR KNEE GENERAL 4V AP BOTH/PA BOTH/LAT/MERC RIGHT RADIOLOGIC EXAM KNEE COMPLETE 4/MORE VIEWS Ynes Talamantes PA-C [address] [place] [address] Phone: tel: fax: [place] [address] Referral ID Status Reason Start Date Expiration Date V isits Requested Visits Authorized [id number] Closed Auto-Generate d Referral 02/22/2025 03/24/2026 [address] 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 No November 08, 2024 9:03pm Advance Directives No March 10:29am Health Concerns Infection Onset Date Last Indicated Resolved Time COVID-19 Rule-Out 06/08/2022 06/08/2022 06/09/2022 5:29 AM EST Reason for Referral Specialty Diagnoses / Procedures Referred By Contac t Referred To Contact CT IMAGING Diagnoses Lung nodules Procedures CT CHEST WO IVCON DIAGNOSTIC COMPUTED TOMOGRAPHY THORAX W/O Francia Arredondo MD [address] [place] [address] Ct Imaging Referral ID Status Reason Start Date Expiration Date Visits Requested Visits Authorized [id number] Pending Review Auto-Generat ed Referral 12/2008/05/2023 1 1 Specialty Diagnoses / Procedures Referred By Contac t Referred To Contact [facility] Diagnoses SOB (shortness of breath) Procedures SPIROMETRY WITH DILATOR IF OBSTRUCTED BRNCDILAT RSPSE SPMTRY PRE&POST-BRNCDILAT ADMFrancia Chase MD [address] [place] [address] Respiratory Medicine [address] [place] [address] Referral ID Status Reason Start Date Expiration Date V isits Requested Visits Authorized [id number] Closed Auto-Generate d Referral 07/06/2022 08/05/2023 1 1 Specialty Diagnoses / Procedures Referred By Contac t Referred To Contact Orthopedics Diagnoses Acute pain of both shoulders Procedures CONSULT TO ORTHOPAEDICS OFFICE/OUTPATIENT [facility] 60-74 MINUTES Karla Campuzano APRN.WARHEAD MAINTENANCE SPECIALIST [address] [place] [address] Referral ID Status Reason Start Date Expiration Date Visits Requested Visits Authorized [id number] Pending Review PCP Requested Referral 09/29/2022 09/29/2023 1 1 Specialty Diagnoses / Procedures Referred By Contac t Referred To Contact Urology Diagnoses Right renal mass Procedures CONSULT TO UROLOGY OFFICE/OUTPATIENT [facility] 60-74 MINUTES Karla Campuzano APRN.WARHEAD MAINTENANCE SPECIALIST [address] [place] [address] Referral ID Status Reason Start Date Expiration Date Visits Requested Visits Authorized [id number] Pending Review PCP Requested Referral 09/29/2022 09/29/2023 1 1 Specialty Diagnoses / Procedures Referred By Contac t Referred To Contact Vascular Surgery Diagnoses Abdominal aortic aneurysm (AAA) without rupture, unspecified part (HCC) Procedures CONSULT TO VASCULAR SURGERY OFFICE/OUTPATIENT [facility] 60-74 MINUTES Karla Campuzano APRN.WARHEAD MAINTENANCE SPECIALIST [address] [place] [address] Referral ID Status Reason Start Date Expiration Date Visits Requested Visits Authorized [id number] Pending Review PCP Requested Referral 09/29/2022 09/29/2023 1 1 Specialty Diagnoses / Procedures Referred By Contac t Referred To Contact CT IMAGING Diagnoses 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) Procedures CT ABD/PEL WO IVCON CT ABD & PELVIS W/O CONTRAST Briana Nolen DO [address] [place] [address] Ct Imaging [id number] Referral ID Status Reason Start Date Expiration Date V isits Requested Visits Authorized [id number] Closed Auto-Generate d Referral 09/30/2022 07/17/2023 1 1 Specialty Diagnoses / Procedures Referred By Contac t Referred To Contact CT IMAGING Diagnoses 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) Procedures CTA ABD/PEL WO/W IVCON CT ANGIO ABD&PLVIS CNTRST MTRL W/WO CNTRST Eladio Mckoy MD [address] [place] [address] Ct Imaging [place] [address] Referral ID Status Reason Start Date Expiration Date V isits Requested Visits Authorized [id number] Closed Auto-Generate d Referral 02/25/2023 07/17/2023 1 1 Specialty Diagnoses / Procedures Referred By Contac t Referred To Contact CT IMAGING Diagnoses Lung nodules Procedures CT CHEST WO IVCON DIAGNOSTIC COMPUTED TOMOGRAPHY THORAX W/O CNTRST Francia Luna MD [address] [place] [address] Ct Imaging [place] [address] Referral ID Status Reason Start Date Expiration Date V isits Requested Visits Authorized [id number] Closed Auto-Generat ed Referral Patient Cleared - [...] content) DATE CREATED AUTHOR 02/13/2018 Anoop Garcia [facility] DATE CREATED AUTHOR AUTHOR'S ORGANIZ ATION 12/18/2018 [facility] DATE CREATED AUTHOR AUTHOR'S ORGANIZ ATION 11/29/2022 [facility] DATE CREATED AUTHOR AUTHOR'S ORGANIZ ATION 02/01/2023 [facility] DATE CREATED AUTHOR AUTHOR'S ORGANIZ ATION 02/25/2025 [facility] DATE CREATED AUTHOR AUTHOR'S ORGANIZ ATION 03/07/2025 [facility] Source Comments (unrecognize d section and content) In the event this informatio n is protected by the Federal Confidentiality of Alcohol and Drug Abuse Patient Records regulations: The Federal rules restrict any use of the information to criminally investigate or prosecute any alcohol or drug abuse patient.[facility] the event this information is protected by the Federal Confidentiality of Alcohol and Drug Abuse Patient Records regulations: The Federal rules restrict any use of the information to criminally investigate or prosecute any alcohol or drug abuse patient.[facility] the event this information is protected by the Federal Confidentiality of Alcohol and Drug Abuse Patient Records regulations: The Federal rules restrict any use of the information to criminally investigate or prosecute any alcohol or drug abuse patient.[facility] the event this information is protected by the Federal Confidentiality of Alcohol and Drug Abuse Patient Records regulations: The Federal rules restrict any use of the information to criminally investigate or prosecute any alcohol or drug abuse patient.[facility] the event this information is protected by the Federal Confidentiality of Alcohol and Drug Abuse Patient Records regulations: The Federal rules restrict any use of the information to criminally investigate or prosecute any alcohol or drug abuse patient.[facility] HospitalIn the event this information is protected by the Federal Confidentiality of Alcohol and Drug Abuse Patient Records regulations: The Federal rules restrict any use of the information to criminally investigate or prosecute any alcohol or drug abuse patient.[facility] HospitalIn the event this information is protected by the Federal Confidentiality of Alcohol and Drug Abuse Patient Records regulations: The Federal rules restrict any use of the information to criminally investigate or prosecute any alcohol or drug abuse patient.[facility] HospitalIn the event this information is protected by the Federal Confidentiality of Alcohol and Drug Abuse Patient Records regulations: The Federal rules restrict any use of the information to criminally investigate or prosecute any alcohol or drug abuse patient.[facility] HospitalIn the event this information is protected by the Federal Confidentiality of Alcohol and Drug Abuse Patient Records regulations: The Federal rules restrict any use of the information to criminally investigate or prosecute any alcohol or drug abuse patient.[facility] HospitalIn the event this information is protected by the Federal Confidentiality of Alcohol and Drug Abuse Patient Records regulations: The Federal rules restrict any use of the information to criminally investigate or prosecute any alcohol or drug abuse patient.[facility] HospitalIn the event this information is protected by the Federal Confidentiality of Alcohol and Drug Abuse Patient Records regulations: The Federal rules restrict any use of the information to criminally investigate or prosecute any alcohol or drug abuse patient.[facility] HospitalIn the event this information is protected by the Federal Confidentiality of Alcohol and Drug Abuse Patient Records regulations: The Federal rules restrict any use of the information to criminally investigate or prosecute any alcohol or drug abuse patient.[facility] HospitalIn the event this information is protected by the Federal Confidentiality of Alcohol and Drug Abuse Patient Records regulations: The Federal rules restrict any use of the information to criminally investigate or prosecute any alcohol or drug abuse patient.[facility] HospitalIn the event this information is protected by the Federal Confidentiality of Alcohol and Drug Abuse Patient Records regulations: The Federal rules restrict any use of the information to criminally investigate or prosecute any alcohol or drug abuse patient.[facility] HospitalIn the event this information is protected by the Federal Confidentiality of Alcohol and Drug Abuse Patient Records regulations: The Federal rules restrict any use of the information to criminally investigate or prosecute any alcohol or drug abuse patient.[facility] HospitalIn the event this information is protected by the Federal Confidentiality of Alcohol and Drug Abuse Patient Records regulations: The Federal rules restrict any use of the information to criminally investigate or prosecute any alcohol or drug abuse patient.[facility] HospitalIn the event this information is protected by the Federal Confidentiality of Alcohol and Drug Abuse Patient Records regulations: The Federal rules restrict any use of the information to criminally investigate or prosecute any alcohol or drug abuse patient.[facility] HospitalIn the event this information is protected by the Federal Confidentiality of Alcohol and Drug Abuse Patient Records regulations: The Federal rules restrict any use of the information to criminally investigate or prosecute any alcohol or drug abuse patient.[facility] HospitalIn the event this information is protected by the Federal Confidentiality of Alcohol and Drug Abuse Patient Records regulations: The Federal rules restrict any use of the information to criminally investigate or prosecute any alcohol or drug abuse patient.[facility] HospitalIn the event this information is protected by the Federal Confidentiality of Alcohol and Drug Abuse Patient Records regulations: The Federal rules restrict any use of the information to criminally investigate or prosecute any alcohol or drug abuse patient.[facility] HospitalIn the event this information is protected by the Federal Confidentiality of Alcohol and Drug Abuse Patient Records regulations: The Federal rules restrict any use of the information to criminally investigate or prosecute any alcohol or drug abuse patient.[facility] HospitalIn the event this information is protected by the Federal Confidentiality of Alcohol and Drug Abuse Patient Records regulations: The Federal rules restrict any use of the information to criminally investigate or prosecute any alcohol or drug abuse patient.[facility] HospitalIn the event this information is protected by the Federal Confidentiality of Alcohol and Drug Abuse Patient Records regulations: The Federal rules restrict any use of the information to criminally investigate or prosecute any alcohol or drug abuse patient.[facility] HospitalIn the event this information is protected by the Federal Confidentiality of Alcohol and Drug Abuse Patient Records regulations: The Federal rules restrict any use of the information to criminally investigate or prosecute any alcohol or drug abuse patient.[facility] HospitalIn the event this information is protected by the Federal Confidentiality of Alcohol and Drug Abuse Patient Records regulations: The Federal rules restrict any use of the information to criminally investigate or prosecute any alcohol or drug abuse patient.[facility] HospitalIn the event this information is protected by the Federal Confidentiality of Alcohol and Drug Abuse Patient Records regulations: The Federal rules restrict any use of the information to criminally investigate or prosecute any alcohol or drug abuse patient.[facility] HospitalIn the event this information is protected by the Federal Confidentiality of Alcohol and Drug Abuse Patient Records regulations: The Federal rules restrict any use of the information to criminally investigate or prosecute any alcohol or drug abuse patient.[facility] HospitalIn the event this information is protected by the Federal Confidentiality of Alcohol and Drug Abuse Patient Records regulations: The Federal rules restrict any use of the information to criminally investigate or prosecute any alcohol or drug abuse patient.[facility] HospitalIn the event this information is protected by the Federal Confidentiality of Alcohol and Drug Abuse Patient Records regulations: The Federal rules restrict any use of the information to criminally investigate or prosecute any alcohol or drug abuse patient.[facility] HospitalIn the event this information is protected by the Federal Confidentiality of Alcohol and Drug Abuse Patient Records regulations: The Federal rules restrict any use of the information to criminally investigate or prosecute any alcohol or drug abuse patient.[facility] HospitalIn the event this information is protected by the Federal Confidentiality of Alcohol and Drug Abuse Patient Records regulations: The Federal rules restrict any use of the information to criminally investigate or prosecute any alcohol or drug abuse patient.[facility] HospitalIn the event this information is protected by the Federal Confidentiality of Alcohol and Drug Abuse Patient Records regulations: The Federal rules restrict any use of the information to criminally investigate or prosecute any alcohol or drug abuse patient.[facility] HospitalIn the event this information is protected by the Federal Confidentiality of Alcohol and Drug Abuse Patient Records regulations: The Federal rules restrict any use of the information to criminally investigate or prosecute any alcohol or drug abuse patient.[facility] HospitalIn the event this information is protected by the Federal Confidentiality of Alcohol and Drug Abuse Patient Records regulations: The Federal rules restrict any use of the information to criminally investigate or prosecute any alcohol or drug abuse patient.[facility] HospitalIn the event this information is protected by the Federal Confidentiality of Alcohol and Drug Abuse Patient Records regulations: The Federal rules restrict any use of the information to criminally investigate or prosecute any alcohol or drug abuse patient.[facility] HospitalIn the event this information is protected by the Federal Confidentiality of Alcohol and Drug Abuse Patient Records regulations: The Federal rules restrict any use of the information to criminally investigate or prosecute any alcohol or drug abuse patient.[facility] HospitalIn the event this information is protected by the Federal Confidentiality of Alcohol and Drug Abuse Patient Records regulations: The Federal rules restrict any use of the information to criminally investigate or prosecute any alcohol or drug abuse patient.[facility] HospitalIn the event this information is protected by the Federal Confidentiality of Alcohol and Drug Abuse Patient Records regulations: The Federal rules restrict any use of the information to criminally investigate or prosecute any alcohol or drug abuse patient.[facility] HospitalIn the event this information is protected by the Federal Confidentiality of Alcohol and Drug Abuse Patient Records regulations: The Federal rules restrict any use of the information to criminally investigate or prosecute any alcohol or drug abuse patient.[facility] HospitalIn the event this information is protected by the Federal Confidentiality of Alcohol and Drug Abuse Patient Records regulations: The Federal rules restrict any use of the information to criminally investigate or prosecute any alcohol or drug abuse patient.[facility] HospitalIn the event this information is protected by the Federal Confidentiality of Alcohol and Drug Abuse Patient Records regulations: The Federal rules restrict any use of the information to criminally investigate or prosecute any alcohol or drug abuse patient.[facility] HospitalIn the event this information is protected by the Federal Confidentiality of Alcohol and Drug Abuse Patient Records regulations: The Federal rules restrict any use of the information to criminally investigate or prosecute any alcohol or drug abuse patient.[facility] HospitalIn the event this information is protected by the Federal Confidentiality of Alcohol and Drug Abuse Patient Records regulations: The Federal rules restrict any use of the information to criminally investigate or prosecute any alcohol or drug abuse patient.[facility] HospitalIn the event this information is protected by the Federal Confidentiality of Alcohol and Drug Abuse Patient Records regulations: The Federal rules restrict any use of the information to criminally investigate or prosecute any alcohol or drug abuse patient.[facility] HospitalIn the event this information is protected by the Federal Confidentiality of Alcohol and Drug Abuse Patient Records regulations: The Federal rules restrict any use of the information to criminally investigate or prosecute any alcohol or drug abuse patient.[facility] HospitalIn the event this information is protected by the Federal Confidentiality of Alcohol and Drug Abuse Patient Records regulations: The Federal rules restrict any use of the information to criminally investigate or prosecute any alcohol or drug abuse patient.[facility] HospitalIn the event this information is protected by the Federal Confidentiality of Alcohol and Drug Abuse Patient Records regulations: The Federal rules restrict any use of the information to criminally investigate or prosecute any alcohol or drug abuse patient.[facility] HospitalIn the event this information is protected by the Federal Confidentiality of Alcohol and Drug Abuse Patient Records regulations: The Federal rules restrict any use of the information to criminally investigate or prosecute any alcohol or drug abuse patient.[facility] HospitalIn the event this information is protected by the Federal Confidentiality of Alcohol and Drug Abuse Patient Records regulations: The Federal rules restrict any use of the information to criminally investigate or prosecute any alcohol or drug abuse patient.[facility] HospitalIn the event this information is protected by the Federal Confidentiality of Alcohol and Drug Abuse Patient Records regulations: The Federal rules restrict any use of the information to criminally investigate or prosecute any alcohol or drug abuse patient.[facility] HospitalIn the event this information is protected by the Federal Confidentiality of Alcohol and Drug Abuse Patient Records regulations: The Federal rules restrict any use of the information to criminally investigate or prosecute any alcohol or drug abuse patient.[facility] HospitalIn the event this information is protected by the Federal Confidentiality of Alcohol and Drug Abuse Patient Records regulations: The Federal rules restrict any use of the information to criminally investigate or prosecute any alcohol or drug abuse patient.[facility] HospitalIn the event this information is protected by the Federal Confidentiality of Alcohol and Drug Abuse Patient Records regulations: The Federal rules restrict any use of the information to criminally investigate or prosecute any alcohol or drug abuse patient.[facility] HospitalIn the event this information is protected by the Federal Confidentiality of Alcohol and Drug Abuse Patient Records regulations: The Federal rules restrict any use of the information to criminally investigate or prosecute any alcohol or drug abuse patient.[facility] HospitalIn the event this information is protected by the Federal Confidentiality of Alcohol and Drug Abuse Patient Records regulations: The Federal rules restrict any use of the information to criminally investigate or prosecute any alcohol or drug abuse patient.[facility] HospitalIn the event this information is protected by the Federal Confidentiality of Alcohol and Drug Abuse Patient Records regulations: The Federal rules restrict any use of the information to criminally investigate or prosecute any alcohol or drug abuse patient.[facility] HospitalIn the event this information is protected by the Federal Confidentiality of Alcohol and Drug Abuse Patient Records regulations: The Federal rules restrict any use of the information to criminally investigate or prosecute any alcohol or drug abuse patient.[facility] HospitalIn the event this information is protected by the Federal Confidentiality of Alcohol and Drug Abuse Patient Records regulations: The Federal rules restrict any use of the information to criminally investigate or prosecute any alcohol or drug abuse patient.[facility] HospitalIn the event this information is protected by the Federal Confidentiality of Alcohol and Drug Abuse Patient Records regulations: The Federal rules restrict any use of the information to criminally investigate or prosecute any alcohol or drug abuse patient.[facility] HospitalIn the event this information is protected by the Federal Confidentiality of Alcohol and Drug Abuse Patient Records regulations: The Federal rules restrict any use of the information to criminally investigate or prosecute any alcohol or drug abuse patient.[facility] HospitalIn the event this information is protected by the Federal Confidentiality of Alcohol and Drug Abuse Patient Records regulations: The Federal rules restrict any use of the information to criminally investigate or prosecute any alcohol or drug abuse patient.[facility] HospitalIn the event this information is protected by the Federal Confidentiality of Alcohol and Drug Abuse Patient Records regulations: The Federal rules restrict any use of the information to criminally investigate or prosecute any alcohol or drug abuse patient.[facility] HospitalIn the event this information is protected by the Federal Confidentiality of Alcohol and Drug Abuse Patient Records regulations: The Federal rules restrict any use of the information to criminally investigate or prosecute any alcohol or drug abuse patient.[facility] HospitalIn the event this information is protected by the Federal Confidentiality of Alcohol and Drug Abuse Patient Records regulations: The Federal rules restrict any use of the information to criminally investigate or prosecute any alcohol or drug abuse patient.[facility] HospitalIn the event this information is protected by the Federal Confidentiality of Alcohol and Drug Abuse Patient Records regulations: The Federal rules restrict any use of the information to criminally investigate or prosecute any alcohol or drug abuse patient.[facility] HospitalIn the event this information is protected by the Federal Confidentiality of Alcohol and Drug Abuse Patient Records regulations: The Federal rules restrict any use of the information to criminally investigate or prosecute any alcohol or drug abuse patient.[facility] HospitalIn the event this information is protected by the Federal Confidentiality of Alcohol and Drug Abuse Patient Records regulations: The Federal rules restrict any use of the information to criminally investigate or prosecute any alcohol or drug abuse patient.[facility] HospitalIn the event this information is protected by the Federal Confidentiality of Alcohol and Drug Abuse Patient Records regulations: The Federal rules restrict any use of the information to criminally investigate or prosecute any alcohol or drug abuse patient.[facility] HospitalIn the event this information is protected by the Federal Confidentiality of Alcohol and Drug Abuse Patient Records regulations: The Federal rules restrict any use of the information to criminally investigate or prosecute any alcohol or drug abuse patient.[facility] HospitalIn the event this information is protected by the Federal Confidentiality of Alcohol and Drug Abuse Patient Records regulations: The Federal rules restrict any use of the information to criminally investigate or prosecute any alcohol or drug abuse patient.[facility] HospitalIn the event this information is protected by the Federal Confidentiality of Alcohol and Drug Abuse Patient Records regulations: The Federal rules restrict any use of the information to criminally investigate or prosecute any alcohol or drug abuse patient.[facility] HospitalIn the event this information is protected by the Federal Confidentiality of Alcohol and Drug Abuse Patient Records regulations: The Federal rules restrict any use of the information to criminally investigate or prosecute any alcohol or drug abuse patient.[facility] HospitalIn the event this information is protected by the Federal Confidentiality of Alcohol and Drug Abuse Patient Records regulations: The Federal rules restrict any use of the information to criminally investigate or prosecute any alcohol or drug abuse patient.[facility] HospitalIn the event this information is protected by the Federal Confidentiality of Alcohol and Drug Abuse Patient Records regulations: The Federal rules restrict any use of the information to criminally investigate or prosecute any alcohol or drug abuse patient.[facility] HospitalIn the event this information is protected by the Federal Confidentiality of Alcohol and Drug Abuse Patient Records regulations: The Federal rules restrict any use of the information to criminally investigate or prosecute any alcohol or drug abuse patient.[facility] HospitalIn the event this information is protected by the Federal Confidentiality of Alcohol and Drug Abuse Patient Records regulations: The Federal rules restrict any use of the information to criminally investigate or prosecute any alcohol or drug abuse patient.[facility] HospitalIn the event this information is protected by the Federal Confidentiality of Alcohol and Drug Abuse Patient Records regulations: The Federal rules restrict any use of the information to criminally investigate or prosecute any alcohol or drug abuse patient.[facility] HospitalIn the event this information is protected by the Federal Confidentiality of Alcohol and Drug Abuse Patient Records regulations: The Federal rules restrict any use of the information to criminally investigate or prosecute any alcohol or drug abuse patient.[facility] HospitalIn the event this information is protected by the Federal Confidentiality of Alcohol and Drug Abuse Patient Records regulations: The Federal rules restrict any use of the information to criminally investigate or prosecute any alcohol or drug abuse patient.[facility] HospitalIn the event this information is protected by the Federal Confidentiality of Alcohol and Drug Abuse Patient Records regulations: The Federal rules restrict any use of the information to criminally investigate or prosecute any alcohol or drug abuse patient.[facility] HospitalIn the event this information is protected by the Federal Confidentiality of Alcohol and Drug Abuse Patient Records regulations: The Federal rules restrict any use of the information to criminally investigate or prosecute any alcohol or drug abuse patient.[facility] HospitalIn the event this information is protected by the Federal Confidentiality of Alcohol and Drug Abuse Patient Records regulations: The Federal rules restrict any use of the information to criminally investigate or prosecute any alcohol or drug abuse patient.[facility] HospitalIn the event this information is protected by the Federal Confidentiality of Alcohol and Drug Abuse Patient Records regulations: The Federal rules restrict any use of the information to criminally investigate or prosecute any alcohol or drug abuse patient.[facility] HospitalIn the event this information is protected by the Federal Confidentiality of Alcohol and Drug Abuse Patient Records regulations: The Federal rules restrict any use of the information to criminally investigate or prosecute any alcohol or drug abuse patient.[facility] HospitalIn the event this information is protected by the Federal Confidentiality of Alcohol and Drug Abuse Patient Records regulations: The Federal rules restrict any use of the information to criminally investigate or prosecute any alcohol or drug abuse patient.[facility] HospitalIn the event this information is protected by the Federal Confidentiality of Alcohol and Drug Abuse Patient Records regulations: The Federal rules restrict any use of the information to criminally investigate or prosecute any alcohol or drug abuse patient.[facility] HospitalIn the event this information is protected by the Federal Confidentiality of Alcohol and Drug Abuse Patient Records regulations: The Federal rules restrict any use of the information to criminally investigate or prosecute any alcohol or drug abuse patient.[facility] HospitalIn the event this information is protected by the Federal Confidentiality of Alcohol and Drug Abuse Patient Records regulations: The Federal rules restrict any use of the information to criminally investigate or prosecute any alcohol or drug abuse patient.[facility] HospitalIn the event this information is protected by the Federal Confidentiality of Alcohol and Drug Abuse Patient Records regulations: The Federal rules restrict any use of the information to criminally investigate or prosecute any alcohol or drug abuse patient.[facility] Reason for Visit (unrecogniz ed section [...] Referred To Contact Vascular Surgery / [facility] Diagnoses Abdominal aortic aneurysm (AAA) without rupture, unspecified part (HCC) Procedures CONSULT TO VASCULAR SURGERY OFFICE/OUTPATIENT NEW [facility] MDM 60-74 MINUTES Karla Campuzano, ROSS.WARHEAD MAINTENANCE SPECIALIST [address] [place] [address] [place] [address] [address] Referral ID Status Reason Start Date Expiration Date Visits Requested Visits Authorized [id number] Pending Review PCP Requested Referral 09/29/2022 09/29/2023 1 1 Reason Comments Patient Question Reason Comments Established Patient Renal mass Specialty Diagnoses / Procedures Referred By Contac t Referred To Contact Urology Diagnoses Right renal mass Procedures CONSULT TO UROLOGY OFFICE/OUTPATIENT NEW HIGH MDM 60-74 MINUTES Karla Campuzano APRN.WARHEAD MAINTENANCE SPECIALIST [address] [place] [address] Referral ID Status Reason Start Date Expiration Date Visits Requested Visits Authorized [id number] Pending Review PCP Requested Referral 09/29/2022 09/29/2023 1 1 Reason Comments Pain New Specialty Diagnoses / Procedures Referred By Contac t Referred To Contact Orthopedics Diagnoses Acute pain of both shoulders Procedures CONSULT TO ORTHOPAEDICS OFFICE/OUTPATIENT NEW HIGH MDM 60-74 MINUTES Karla Campuzano, ROSS.WARHEAD MAINTENANCE SPECIALIST [address] [place] [address] Referral ID Status Reason Start Date Expiration Date Visits Requested Visits Authorized [id number] Pending Review PCP Requested Referral 09/29/2022 09/29/2023 [...] W/O CONTRAST Briana Nolen D, DO [address] [place] [address] Ct Imaging [place] [address] Referral ID Status Reason Start Date Expiration Date V isits Requested Visits Authorized [id number] Closed Auto-Generate d Referral 09/30/2022 07/17/2023 1 1 Specialty Diagnoses / Procedures Referred By Contac t Referred To Contact CT IMAGING Diagnoses 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) Procedures CTA ABD/PEL WO/W IVCON CT ANGIO ABD&PLVIS CNTRST MTRL W/WO CNTRST Eladio Mckoy MD [address] [place] [address] Ct Imaging [place] [address] Referral ID Status Reason Start Date Expiration Date V isits Requested Visits Authorized [id number] Closed Auto-Generate d Referral 02/25/2023 07/17/2023 1 1 Specialty Diagnoses / Procedures Referred By Contac t Referred To Contact CT IMAGING Diagnoses Lung nodules Procedures CT CHEST WO IVCON DIAGNOSTIC COMPUTED TOMOGRAPHY THORAX W/O Francia Arredondo MD [address] [place] [address] [place] [address] Referral ID Status Reason Start Date Expiration Date V isits Requested Visits Authorized [id number] Closed Auto-Generat ed Referral Patient Cleared - [...] Care Teams (unrecognized sec tion and content) Filenet Developer Relationship Specialty Start Date End Date Clarice Murillo MD [address] [place], [place] [id number] PCP - General 02/07/09 Marianne Balderas properties supervisorFood Services Manager 03/19/21 Manuel Bravo MD [address] [phone] Gore Inserter Pulmonary and Critical Care Medicine 06/01/21 Filenet Developer Relationship Specialty Start Date End Date Clarice Murillo MD [address] [place], [place] [id number] PCP - General 02/07/09 Marianne Balderas, RN [address] [place], [place] [id number] Food Services Manager 03/19/21 Manuel Bravo MD [address] [id number] Gore Inserter Pulmonary and Critical Care Medicine 06/01/21 Filenet Developer Relationship Specialty Start Date End Date Clarice Murillo MD [address] [place] [address] PCP - General 02/07/09 Marianne Balderas RN [address] [place], [place] [phone] Food Services Manager 03/19/21 Manuel Bravo MD [address] [id number] Gore Inserter Pulmonary and Critical Care Medicine 06/01/21 Filenet Developer Relationship Specialty Start Date End Date Clarice Murillo MD [address] [place], [place] [id number] PCP - General 02/07/09 Marianne Balderas RN [address] [place], [place] [id number] Food Services Manager 03/19/21 Manuel Bravo MD [address] [id number] Gore Inserter Pulmonary and Critical Care Medicine 06/01/21 Filenet Developer Relationship Specialty Start Date End Date Clarice Murillo MD [address] [place] [address] PCP - General 02/07/09 Marianne Balderas, RN [address] [place] [address] Food Services Manager 03/19/21 Manuel Bravo MD [address] [phone] Gore Inserter Pulmonary and Critical Care Medicine 06/01/21 Filenet Developer Relationship Specialty Start Date End Date Clarice Murillo MD [address] [place] [address] PCP - General 02/07/09 Marianne Balderas, RN [address] [place], [place] [phone] Food Services Manager 03/19/21 Manuel Bravo MD [address] [id number] Gore Inserter Pulmonary and Critical Care Medicine 06/01/21 Filenet Developer Relationship Specialty Start Date End Date Clarice Murillo MD [address] [place] [address] PCP - General 02/07/09 Marianne Balderas, RN [address] [place] [address] Food Services Manager 03/19/21 Manuel Bravo MD [address] [phone] Gore Inserter Pulmonary and Critical Care Medicine 06/01/21 Filenet Developer Relationship Specialty Start Date End Date Clarice Murillo MD [address] [place] [address] PCP - General 02/07/09 Manuel Bravo MD [address] [address] Gore Inserter Pulmonary and Critical Care Medicine 06/01/21 Adriel Vides RN [address] [place], [place] [phone] Food Services Manager [facility] 03/19/21 Filenet Developer Relationship Specialty Start Date End Date Clarice Murillo MD [address] [place] [address] PCP - General 02/07/09 Manuel Bravo MD [address] [address] Gore Inserter Pulmonary and Critical Care Medicine 06/01/21 Adriel Vides RN [address] [place], [place] [phone] Food Services Manager [facility] 03/19/21 Filenet Developer Relationship Specialty Start Date End Date Clarice Murillo MD [address] [place] [address] PCP - General 02/07/09 Manuel Bravo MD [address] [phone] Gore Inserter Pulmonary and Critical Care Medicine 06/01/21 Adriel Vides RN [address] [place], [place] [id number] Food Services Manager [facility] 03/19/21 Filenet Developer Relationship Specialty Start Date End Date Clarice Murillo MD [address] [place] [address] PCP - General 02/07/09 Manuel Bravo MD [address] [phone] Gore Inserter Pulmonary and Critical Care Medicine 06/01/21 Adriel Vides RN [address] [place], [place] [phone] Food Services Manager [facility] 05/19/22 Filenet Developer Relationship Specialty Start Date End Date Clarice Murillo MD [address] [place] [address] PCP - General 02/07/09 Manuel Bravo MD [address] [phone] Gore Inserter Pulmonary and Critical Care Medicine 06/01/21 Adriel Vides RN [address] [place], [place] [phone] Food Services Manager Family Medicine 05/19/22 Filenet Developer Relationship Specialty Start Date End Date Clarice Murillo MD [address] [place], [place] 238671 PCP - General 02/07/09 Manuel Bravo MD [address] [phone] Gore Inserter Pulmonary and Critical Care Medicine 06/01/21 Adriel Vides RN [address] [place], [place] [id number] Food Services Manager Family Medicine 05/19/22 Filenet Developer Relationship Specialty Start Date End Date Clarice Murillo MD [address] [place] [address] PCP - General 02/07/09 Manuel Bravo MD [address] [phone] Gore Inserter Pulmonary and Critical Care Medicine 06/01/21 Adriel Vides RN [address] [place], [place] [phone] Food Services Manager [facility] 05/19/22 Filenet Developer Relationship Specialty Start Date End Date Clarice Murillo MD [address] [place], [place] [id number] PCP - General 02/07/09 Manuel Bravo MD [address] [phone] Gore Inserter Pulmonary and Critical Care Medicine 06/01/21 Adriel Vides RN [address] [place] [address] Food Services Manager Family Medicine 05/19/22 Filenet Developer Relationship Specialty Start Date End Date Clarice Murillo MD [address] [place] [address] PCP - General 02/07/09 Manuel Bravo MD [address] [phone] Gore Inserter Pulmonary and Critical Care Medicine 06/01/21 Adriel Vides RN [address] [place], [place] [phone] Food Services Manager Family Medicine 05/19/22 Filenet Developer Relationship Specialty Start Date End Date Clarice Murillo MD [address] [place] [address] PCP - General 02/07/09 Manuel Bravo MD [address] [phone] Gore Inserter Pulmonary and Critical Care Medicine 06/01/21 Adriel Vides RN [address] [place], [place] [phone] Food Services Manager Family Medicine 05/19/22 Filenet Developer Relationship Specialty Start Date End Date Clraice Murillo MD [address] [place] [address] PCP - General 02/07/09 Manuel Bravo MD [address] [phone] Gore Inserter Pulmonary and Critical Care Medicine 06/01/21 Adriel Vides RN [address] [place], [place] [phone] Food Services Manager Family Medicine 05/19/22 Filenet Developer Relationship Specialty Start Date End Date Clarice Murillo MD [address] [place] [address] PCP - General 02/07/09 Manuel Bravo MD [address] [phone] Gore Inserter Pulmonary and Critical Care Medicine 06/01/21 Adriel Vides RN [address] [place], [place] [phone] Food Services Manager Family Medicine 05/19/22 Filenet Developer Relationship Specialty Start Date End Date Clarice Murillo MD [address] [place] [address] PCP - General 02/07/09 Manuel Bravo MD [address] [address] Gore Inserter Pulmonary and Critical Care Medicine 06/01/21 Adriel Vides RN [address] [place], [place] [phone] Food Services Manager [facility] 05/19/22 Filenet Developer Relationship Specialty Start Date End Date lCarice Murillo MD [address] [place] [address] PCP - General 02/07/09 Manuel Bravo MD [address] [address] Gore Inserter Pulmonary and Critical Care Medicine 06/01/21 Adriel Vides RN [address] [place], [place] [phone] Food Services Manager [facility] 05/19/22 Filenet Developer Relationship Specialty Start Date End Date Clarice Murillo MD [address] [place] [address] PCP - General 02/07/09 Manuel Bravo MD [address] [address] Gore Inserter Pulmonary and Critical Care Medicine 06/01/21 Adriel Vides RN [address] [place] [address] Food Services Manager [facility] 05/19/22 Filenet Developer Relationship Specialty Start Date End Date Clarice Murillo MD [address] [place] [address] PCP - General 02/07/09 Manuel Bravo MD [address] [address] Gore Inserter Pulmonary and Critical Care Medicine 06/01/21 Adriel Vides RN [address] [place], [place] [phone] Food Services Manager [facility] 05/19/22 Filenet Developer Relationship Specialty Start Date End Date Clarice Murillo MD [address] [place] [address] PCP - General 02/07/09 Manuel Bravo MD [address] [phone] Gore Inserter Pulmonary and Critical Care Medicine 06/01/21 Adriel Vides RN [address] [place], [place] [phone] Food Services Manager [facility] 05/19/22 Filenet Developer Relationship Specialty Start Date End Date Clarice Murillo MD [address] [place] [address] PCP - General 02/07/09 Manuel Bravo MD [address] [phone] Gore Inserter Pulmonary and Critical Care Medicine 06/01/21 Adriel Vides RN [address] [place], [place] [phone] Food Services Manager [facility] 05/19/22 Filenet Developer Relationship Specialty Start Date End Date Clarice Murillo MD [address] [place] [address] PCP - General 02/07/09 Manuel Bravo MD [address] [phone] Gore Inserter Pulmonary and Critical Care Medicine 06/01/21 Adriel Vides RN [address] [place], [place] [phone] Food Services Manager [facility] 05/19/22 Filenet Developer Relationship Specialty Start Date End Date Clarice Murillo MD [address] [place] [address] PCP - General 02/07/09 Manuel Bravo MD [address] [address] Gore Inserter Pulmonary and Critical Care Medicine 06/01/21 Adriel Vides RN [address] [place], [place] [phone] Food Services Manager Family Medicine 05/19/22 Filenet Developer Relationship Specialty Start Date End Date Clarice Murillo MD [address] [place] [address] PCP - General 02/07/09 Manuel Bravo MD [address] [phone] Gore Inserter Pulmonary and Critical Care Medicine 06/01/21 Adriel Vides RN [address] [place], [place] [phone] Food Services Manager Family Medicine 05/19/22 Filenet Developer Relationship Specialty Start Date End Date Clarice Murillo MD [address] [place] [address] PCP - General 02/07/09 Manuel Bravo MD [address] [phone] Gore Inserter Pulmonary and Critical Care Medicine 06/01/21 Adriel Vides RN [address] [place] [address] Food Services Manager Family Medicine 05/19/22 Filenet Developer Relationship Specialty Start Date End Date Clarice Murillo MD [address] [place] [address] PCP - General 02/07/09 Manuel Bravo MD [address] [address] Gore Inserter Pulmonary and Critical Care Medicine 06/01/21 Adriel Vides RN [address] [place], [place] [phone] Food Services Manager Family Medicine 05/19/22 Filenet Developer Relationship Specialty Start Date End Date Clarice Murillo MD [address] [place] [address] PCP - General 02/07/09 Manuel Bravo MD [address] [address] Gore Inserter Pulmonary and Critical Care Medicine 06/01/21 Adriel Vides RN [address] [place] [address] Food Services Manager [facility] 05/19/22 Filenet Developer Relationship Specialty Start Date End Date Clarice Murillo MD [address] [place] [address] PCP - General 02/07/09 Manuel Bravo MD [address] [phone] Gore Inserter Pulmonary and Critical Care Medicine 06/01/21 Adriel Vides RN [address] [place], [place] [phone] Food Services Manager Family Medicine 05/19/22 Filenet Developer Relationship Specialty Start Date End Date Clarice Murillo MD [address] [place] [address] PCP - General 02/07/09 Manuel Bravo MD [address] [phone] Gore Inserter Pulmonary and Critical Care Medicine 06/01/21 Adriel Vides RN [address] [place] [address] Food Services Manager Family Medicine 05/19/22 Filenet Developer Relationship Specialty Start Date End Date Clarice Murillo MD [address] [place] [address] PCP - General 02/07/09 Manuel Bravo MD [address] [phone] Gore Inserter Pulmonary and Critical Care Medicine 06/01/21 Adriel Vides, RUBEN [address] [place] [address] Food Services Manager Family Medicine 05/19/22 Filenet Developer Relationship Specialty Start Date End Date Clarice Murillo MD [address] [place] [address] PCP - General 02/07/09 Manuel Bravo MD [address] [phone] Gore Inserter Pulmonary and Critical Care Medicine 06/01/21 Adriel Vides RN [address] [place], [place] [phone] Food Services Manager Family Medicine 05/19/22 Filenet Developer Relationship Specialty Start Date End Date Clarice Murillo MD [address] [place] [address] PCP - General 02/07/09 Manuel Bravo MD [address] [phone] Gore Inserter Pulmonary and Critical Care Medicine 06/01/21 Adriel Vides RN [address] [place] [address] Food Services Manager Family Medicine 05/19/22 Filenet Developer Relationship Specialty Start Date End Date Clarice Murillo MD [address] [place], [place] 084351 PCP - General 02/07/09 Manuel Bravo MD [address] [phone] Gore Inserter Pulmonary and Critical Care Medicine 06/01/21 Adriel Vides RN [address] [place], [place] [phone] Food Services Manager Family Medicine 05/19/22 Filenet Developer Relationship Specialty Start Date End Date Clarice Murillo MD [address] [place] [address] PCP - General 02/07/09 Manuel Bravo MD [address] [phone] Gore Inserter Pulmonary and Critical Care Medicine 06/01/21 Adriel Vides RN [address] [place] [address] Food Services Manager Family Medicine 05/19/22 Filenet Developer Relationship Specialty Start Date End Date Clarice Murillo MD [address] [place] [address] PCP - General 02/07/09 Manuel Bravo MD [address] [id number] Gore Inserter Pulmonary and Critical Care Medicine 06/01/21 Adriel Vides RN [address] [place] [address] Food Services Manager Family Medicine 05/19/22 Filenet Developer Relationship Specialty Start Date End Date Clarice Murillo MD [address] [place] [address] PCP - General 02/07/09 Manuel Bravo MD [address] [phone] Gore Inserter Pulmonary and Critical Care Medicine 06/01/21 Adriel Vides RN [address] [place] [address] Food Services Manager Family Medicine 05/19/22 Filenet Developer Relationship Specialty Start Date End Date Clarice Murillo MD [address] [place] [address] PCP - General 02/07/09 Manuel Bravo MD [address] [phone] Gore Inserter Pulmonary and Critical Care Medicine 06/01/21 Adriel Vides RN [address] [place] [address] Food Services Manager [facility] 05/19/22 Filenet Developer Relationship Specialty Start Date End Date Clarice Murillo MD [address] [place] [address] PCP - General 02/07/09 Manuel Bravo MD [address] [phone] Gore Inserter Pulmonary and Critical Care Medicine 06/01/21 Adriel Vides RN [address] [place], [place] [phone] Food Services Manager [facility] 05/19/22 Filenet Developer Relationship Specialty Start Date End Date Clarice Murillo MD [address] [place] [address] PCP - General 02/07/09 Manuel Bravo MD [address] [phone] Gore Inserter Pulmonary and Critical Care Medicine 06/01/21 Adriel Vides RN [address] [place], [place] [phone] Food Services Manager Family Medicine 05/19/22 Filenet Developer Relationship Specialty Start Date End Date Clarice Murillo MD [address] [place] [address] PCP - General 02/07/09 Manuel Bravo MD [address] [phone] Gore Inserter Pulmonary and Critical Care Medicine 06/01/21 Adriel Vides RN [address] [place], [place] 1805131 Food Services Manager Family Medicine 05/19/22 Filenet Developer Relationship Specialty Start Date End Date Clarice Murillo MD [address] [place] [address] PCP - General 02/07/09 Manuel Bravo MD [address] [address] Gore Inserter Pulmonary and Critical Care Medicine 06/01/21 Adriel Vides RN [address] [place], [place] 3666931 Food Services Manager Family Medicine 05/19/22 Filenet Developer Relationship Specialty Start Date End Date Clarice Murillo MD [address] [place] [address] PCP - General 02/07/09 Manuel Bravo MD [address] [phone] Gore Inserter Pulmonary and Critical Care Medicine 06/01/21 Adriel Vides RN [address] [place], [place] 5697831 Food Services Manager Family Medicine 05/19/22 Filenet Developer Relationship Specialty Start Date End Date Clarice Murillo MD [address] [place] [address] PCP - General 02/07/09 Manuel Bravo MD [address] [phone] Gore Inserter Pulmonary and Critical Care Medicine 06/01/21 Adriel Vides RN [address] [place] [address] Food Services Manager Family Medicine 05/19/22 Filenet Developer Relationship Specialty Start Date End Date Clarice Murillo MD [address] [place], [place] 586911 PCP - General 02/07/09 Manuel Bravo MD [address] [phone] Gore Inserter Pulmonary and Critical Care Medicine 06/01/21 Adriel Vides RN [address] [place] [address] Food Services Manager Family Medicine 05/19/22 Filenet Developer Relationship Specialty Start Date End Date Clarice Murillo MD [address] [place], [place] [id number] PCP - General 02/07/09 Manuel Bravo MD [address] [phone] Gore Inserter Pulmonary and Critical Care Medicine 06/01/21 Adriel Vides RN [address] [place] [address] Food Services Manager Family Medicine 05/19/22 Filenet Developer Relationship Specialty Start Date End Date Clarice Murillo MD [address] [place], [place] [phone] PCP - General 02/07/09 Manuel Bravo MD [address] [phone] Gore Inserter Pulmonary and Critical Care Medicine 06/01/21 Adriel Vides, RN [address] [place] [address] Food Services Manager Family Medicine 05/19/22 Filenet Developer Relationship Specialty Start Date End Date Clarice Murillo MD [address] [place] [address] PCP - General 02/07/09 Manuel Bravo MD [address] [place] [address] [id number] Gore Inserter Pulmonary and Critical Care Medicine 06/01/21 Karla Campuzano APRN.WARHEAD MAINTENANCE SPECIALIST [address] [place] [address] Forensic Audit Expert [facility] 06/24/24 Sid Frank APRN.WARHEAD MAINTENANCE SPECIALIST [address] [place] [address] Forensic Audit Expert [facility] 07/03/24 Filenet Developer Relationship Specialty Start Date End Date Clarice Murillo MD [address] [place] [address] PCP - General 02/07/09 Manuel Bravo MD [address] [place] [address] Gore Inserter Pulmonary and Critical Care Medicine 06/01/21 Karla Campuzano MEDICAL TECHNOLOGIST CHEMISTRY.WARHEAD MAINTENANCE SPECIALIST [address] [place] [address] Forensic Audit Expert [facility] 06/24/24 Sid Frank APRN.WARHEAD MAINTENANCE SPECIALIST [address] [place] [address] Forensic Audit Expert [facility] 07/03/24 Filenet Developer Relationship Specialty Start Date End Date Clarice Murillo MD [address] [facility] [place] [address] PCP - General 02/07/09 Manuel Bravo MD [address] [address] Gore Inserter Pulmonary and Critical Care Medicine 06/01/21 Karla Campuzano, MEDICAL TECHNOLOGIST CHEMISTRY.WARHEAD MAINTENANCE SPECIALIST [address] [place] [address] Forensic Audit Expert Family Medicine 06/24/24 Sid Frank MEDICAL TECHNOLOGIST CHEMISTRY.WARHEAD MAINTENANCE SPECIALIST [address] [place] [address] [facility] 07/03/24 Filenet Developer Relationship Specialty Start Date End Date Clarice Murillo MD [address] [place] [address] PCP - General 02/07/09 Manuel Bravo MD [address] [address] Gore Inserter Pulmonary and Critical Care Medicine 06/01/21 Karla Campuzano, MEDICAL TECHNOLOGIST CHEMISTRY.WARHEAD MAINTENANCE SPECIALIST [address] [address] Forensic Audit Expert [facility] Medicine 06/24/24 Sid Frank MEDICAL TECHNOLOGIST CHEMISTRY.WARHEAD MAINTENANCE SPECIALIST [address] [place] [address] [facility] 07/03/24 Filenet Developer Relationship Specialty Start Date End Date Clarice Murillo MD [address] [place] [address] PCP - General 02/07/09 Manuel Bravo MD [address] [address] Gore Inserter Pulmonary and Critical Care Medicine 06/01/21 Karla Campuzano, MEDICAL TECHNOLOGIST CHEMISTRY.WARHEAD MAINTENANCE SPECIALIST [address] [address] Forensic Audit Expert Family Medicine 06/24/24 Sid Frank, MEDICAL TECHNOLOGIST CHEMISTRY.WARHEAD MAINTENANCE SPECIALIST [address] [place] [address] Forensic Audit Expert Family Medicine 07/03/24 Team Status: Active Member [...] Provider Active Sta rt: November 10, 2024 Filenet Developer Relationship Specialty Start Date End Date Clarice Murillo MD [address] [place] [address] PCP - General 02/07/09 Manuel Bravo MD [address] [address] Gore Inserter Pulmonary and Critical Care Medicine 06/01/21 Karla Campuzano APRN.WARHEAD MAINTENANCE SPECIALIST [address] [address] Forensic Audit Expert [facility] Medicine 06/24/24 Sid Frank APRN.WARHEAD MAINTENANCE SPECIALIST [address] [place] [address] Forensic Audit Expert [facility] 07/03/24 Filenet Developer Relationship Specialty Start Date End Date Clarice Murillo MD [address] [place] [address] PCP - General 02/07/09 Manuel Bravo MD [address] [address] Gore Inserter Pulmonary and Critical Care Medicine 06/01/21 Sid Frank APRN.WARHEAD MAINTENANCE SPECIALIST [address] [place] [address] [facility] Filenet Developer Relationship Specialty Start Date End Date Clarice Murillo MD [address] [place] [address] PCP - General 02/07/09 Manuel Bravo MD [address] [address] Gore Inserter Pulmonary and Critical Care Medicine 06/01/21 Sid Frank MEDICAL TECHNOLOGIST CHEMISTRY.WARHEAD MAINTENANCE SPECIALIST [address] [place] [address] [facility] 07/03/24 Filenet Developer Relationship Specialty Start Date End Date Clarice Murillo MD [address] [place] [address] PCP - General 02/07/09 Manuel Bravo MD [address] [phone] Gore Inserter Pulmonary and Critical Care Medicine 06/01/21 Sid Frank APRN.WARHEAD MAINTENANCE SPECIALIST [address] [place], [place] 133251 [facility] 07/03/24 Filenet Developer Relationship Specialty Start Date End Date Clarice Murillo MD [address] [place], [place] 974541 PCP - General 02/07/09 Manuel Bravo MD [address] [phone] Gore Inserter Pulmonary and Critical Care Medicine 06/01/21 Sid Frank APRN.WARHEAD MAINTENANCE SPECIALIST [address] [place], [place] 573611 [facility] 07/03/24 FOR RECORDS PERTAINING TO PATIENTS [...] BE BASED ON THE PRIMARY CLINICAL RECORDS. [facility]. provides no warranty or guarantee of the accuracy or completeness of information in this document.
[2025-03-10] MEDS: Cholecalciferol (Vit D3) 125 MCG CAPSULE (5,000 UNITS) PO (21:39)
[2025-03-10 22:42] LABS: Hematocrit 36.7 % (40-54); Hemoglobin 12.1 g/dL (13.0-16.5); Mean Corp Hgb Conc 33.0 g/dL (32-36); Mean Corpuscular Volume 96.1 fL (80-94); Mean Platelet Vol. 9.3 fl (6.2-12.0); Platelet Count 201 K/mm3 (150-450); RBC Distribution Width CV 14.0 % (11.6-14.6); RBC Distribution Width SD 49.6 fl (35.1-43.9); Red Blood Count 3.82 M/mm3 (4.6-6.2); White Blood Count 9.2 K/mm3 (4.4-11.0)
[2025-03-11 03:47] LABS: Hematocrit 33.7 % (40-54); Hemoglobin 11.5 g/dL (13.0-16.5); Mean Corp Hgb Conc 34.1 g/dL (32-36); Mean Corpuscular Volume 94.7 fL (80-94); Mean Platelet Vol. 9.2 fl (6.2-12.0); Platelet Count 174 K/mm3 (150-450); RBC Distribution Width CV 14.0 % (11.6-14.6); RBC Distribution Width SD 49.3 fl (35.1-43.9); Red Blood Count 3.56 M/mm3 (4.6-6.2); White Blood Count 7.6 K/mm3 (4.4-11.0)
[2025-03-11 04:24] LABS: Anion Gap 10 (5-15); BUN 30 mg/dL (4-19); BUN/Creat Ratio 28.9 RATIO (10-20); Calcium,Total 9.0 mg/dL (7.6-11.0); Carbon Dioxide 22.4 mmol/L (21.0-32.0); Chloride 107 mmol/L (98-108); Estimated Creatinine Clearance 52.47 ml/min (50-250); Glucose 88 mg/dL (70-99); Potassium 4.1 mmol/L (3.3-5.1)
[2025-03-11 04:31] VITALS: BP 130/61; PULSE 54; RESP 16; TEMP 36.2; O2SAT 97
[2025-03-11 07:19] VITALS: PULSE 55; RESP 16; O2SAT 95
[2025-03-11] MEDS: Budesonide Respules 0.5 MG/2 ML AMPUL.NEB. INHALATION (07:19)
[2025-03-11] MEDS: Albuterol 2.5 MG/3 ML VIAL.NEB. INHALATION (07:19)
[2025-03-11 08:00] VITALS: BP 123/62; PULSE 70; RESP 16; TEMP 36.6; O2SAT 95
--- NOTE | 2025-03-11 09:54 | CASEMGMT ---
RUBEN WEEKS Assessment: Face to Face with pt for initial transition planning/care coordination assessment. RN MICKY introduced self and role at [facility], pt voices understanding and consents to assessment. Pt is A&O x4 and answers all questions appropriately at this time. Pt sitting up in bed eating breakfast in no distress. Care providers, pharmacy, and demographics verified/updated. Admitting Dx: lower GIB Strata Score: 3 PCP:Chidi Specialists:domo Coburn [facility] Insurance: [employer] Prescription Benefit: yes LNOK: Temo Hernandez, grandson; Erendira Hernandez, darryn Living Arrangements: Pt lives with but she is currently residing in a SNF. Pt lives in a single story home with 1 small step to enter. Pt reports he is I in ADL/IADLs and denies concerns at home. Transportation: Pt drives self and denies concerns with transportation. DME:cane, rollator, multiple FWW HHC/SNF: Denies hx of Pt states no concerns with going home at time of dc. Pt states his grandson is his financial POA and pt believes his dtr An is his healthcare POA. Pt states he has the papers and he plans to have his dtr bring them in to be scanned into his chart. Updated SW. 6 cl=22, no therapy ordered. Pt states he has a BLACK LEATHER BUFFER and TILE LAYER HELPER in his family. Pt states he has good support. Pt states no further concerns/needs. CM to follow. Advised pt to ask CM if any further questions/concerns/needs arise, voices understanding. Pt Goal: Home Plan: Home Handoff given to [employer] Ji RN, CM
[2025-03-11] MEDS: Latanoprost 0.005% 1 Bottle 1 DRP OPHTHALMIC (10:12)
[2025-03-11] MEDS: Cholecalciferol (Vit D3) 125 MCG CAPSULE (5,000 UNITS) PO (10:52)
--- NOTE | 2025-03-11 12:25 | PCM.PN.HOSP ---
Subjective Subjective No issues overnight, awaiting possible endoscopy Objective Data Objective Data Vital Signs: Vital Signs Temp Pulse Resp BP Pulse Ox O2 Del Method 97.8 F 70 16 123/62 H 95 Room Air 03/11/25 08:00 03/11/25 08:00 03/11/25 08:00 03/11/25 08:00 03/11/25 08:00 03/11/25 09:31 Oxygen Delivery Method Room Air Weight: 182 lb 1.629 oz Body Mass Index (BMI) 28.5 Intake & Output: Intake and Output for Last 24 Hours 03/10/25 03/11/25 03/12/25 03:59 03:59 03:59 Intake Total 1100 / 1100 0 / 0 Balance 1100 / 1100 0 / 0 Lab / Micro Data 03/11/25 03:39 03/11/25 03:39 Labs: Laboratory Results - last 24 hr 03/10/25 15:58: WBC 8.6, RBC 4.00 L, Hgb 12.9 L, Hct 37.7 L, MCV 94.3 H, MCH 32.3 H, MCHC 34.2, RDW Std Deviation 48.0 H, RDW Coeff of Nohemi 14.1, Plt Count 237, MPV 9.4, Immature Gran % (Auto) 0.300, Neut % (Auto) 73.3 H, Lymph % (Auto) 17.5 L, [place] % (Auto) 7.2, Eos % (Auto) 0.9, Baso % (Auto) 0.8, Absolute Neuts (auto) 6.3, Absolute Lymphs (auto) 1.51, Nucleated RBC % 0, Sodium 141, Potassium 4.6, Chloride 108, Carbon Dioxide 20.3 L, Anion Gap 13, BUN 33 H, Creatinine 1.33 H, Estim Creat Clear Calc 42.96 L, Est GFR (MDRD) Non-Af 52 L, BUN/Creatinine Ratio 25.0 H, Glucose 127 H, Calcium 9.6, Total Bilirubin 0.45, AST 30, ALT 21, Alkaline Phosphatase 86, Total Protein 5.9, Albumin 3.5, Globulin 2.4, Albumin/Globulin Ratio 1.4, Lipase 71 03/10/25 18:18: Urine Color Straw, Urine Clarity Clear, Urine pH 7.0, Ur Specific [place] 1.010, Urine Protein 30 H, Urine Glucose (UA) Normal, Urine Ketones Negative, Urine Occult Blood Negative, Urine Nitrite Negative, Urine Bilirubin Negative, Urine Urobilinogen 1 H, Ur Leukocyte Esterase Negative, Urine RBC 0-5 SEEN, Urine WBC 0-5 SEEN, Ur Squamous Epith Cells 0-5 SEEN, Urine Bacteria 0 SEEN, Urine Mucus 0 SEEN 03/10/25 22:19: WBC 9.2, RBC 3.82 L, Hgb 12.1 L, Hct 36.7 L, MCV 96.1 H, MCH 31.7, MCHC 33.0, RDW Std Deviation 49.6 H, RDW Coeff of Nohemi 14.0, Plt Count 201, MPV 9.3 03/11/25 03:39: WBC 7.6, RBC 3.56 L, Hgb 11.5 L, Hct 33.7 L, MCV 94.7 H, MCH 32.3 H, MCHC 34.1, RDW Std Deviation 49.3 H, RDW Coeff of Nohemi 14.0, Plt Count 174, MPV 9.2, Sodium 140, Potassium 4.1, Chloride 107, Carbon Dioxide 22.4, Anion Gap 10, BUN 30 H, Creatinine 1.02, Estim Creat Clear Calc 52.47, Est GFR (MDRD) Non-Af 71, BUN/Creatinine Ratio 28.9 H, Glucose 88, Calcium 9.0 Radiography Diagnostic Testing: Radiology Impression Abdomen/Pelvis CT 03/10/25 16:05 IMPRESSION: No obvious GI extravasation of contrast. No source of bleeding identified. Diverticulosis without identified diverticulitis. 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 Bilateral parapelvic cysts and cortical cystic lesions in the kidneys Reading Location: [facility] Physical Exam Narrative General: Alert, Oriented x3, Cooperative, No apparent distress HEENT: Atraumatic, PERRLA, EOMI, Normocephalic Oral: Moist Mucosa Neck: Supple, No JVD Lungs: Diminished, Normal air movement, No rhonchi, No wheeze, No rales Cardiovascular: Regular rate, Regular Rhythm, Normal S1, Normal S2, No murmurs Abdomen: Soft, Non Tender, Non-Distended, No Hepato-splenomegaly Extremities: No edema, Capillary Refill Less than 3 Seconds Skin: No rashes, No breakdown Musculoskeletal: No Tenderness to Palpation of Joints or Extremities Neurological: No focal neurological deficits, Motor Exam 5/5 strength throughout, Sensory exam intact to light touch and pain Psych/Mental Status: Normal Affect, Appropriate Assessment & Plan Assessment/Plan (1) Lower GI bleed: PLAN: Plan 1. Bright red blood per rectum suspected secondary to recurrent diverticular bleed ? Admit under inpatient status to PCU. GI consulted. ? 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 Hemoglobin 12.9 on admit today he is 11.5 ? Will keep n.p.o. at midnight with plan for possible lower scope tomorrow if needed ? He did have a mild elevation in his creatinine, nothing that indicated an SANTOS and it is back to baseline today 2. Essential HTN/HLD ? Blood pressures are stable ? Will hold his ramipril as he is currently n.p.o. ? Continue with fenofibrate 3. GERD ? Stable ? Continue with PPI 4. Neuropathy ? Stable ? Continue with gabapentin 5. COPD ? Not in exacerbation ? Continue with his home inhalers 6. Glaucoma ? Stable ? 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 Continue with Flomax DVT: SCDs Charges/Coding Visit Charges Inpatient E&M: 25804 Subs Hosp L2
[2025-03-11 14:00] VITALS: BP 131/59; PULSE 69; RESP 16; TEMP 36.4; O2SAT 96
[2025-03-11] MEDS: 0.9% Saline Lock 10 ML Syringe IV (14:59)
--- NOTE | 2025-03-11 16:04 | CHAPLAIN ---
Type of Pastoral Visit _x__ Initial Visit ___ Follow-up Visit ___ On-call Visit ___ General Patient Visit ___ Spiritual Assessment ___ Family Conference ___ Bereavement ___ Rapid Response ___ Code Blue ___ Other (describe below) Pastoral Care Referral From _x__ Patient ___ Family ___ Nurse ___ Physician ___ Straightedge Man ___ Dish Carrier ___ Other (describe below) Sacrament/Intervention _x__ Active listening ___ Anointing ___ Hindu ___ Bereavement ___ Communion _x__ Theodora exploration ___ _x__ Life review _x__ Prayer ___ Reconciliation ___ Sacrament of Sick _x__ Supportive presence ___ Wedding ___ Other (describe below) Pastoral Comments patient is watching TV and waiting on a scope of some kind; pt described what he thinks will be happening for his care; pt asks quite a few questions about the Bible and what this muffle operator believes; focused conversation back to the patient and his needs; pt agrees on value of being in the hospital and spiritual care he needs; pt has a spouse in a half-way with dementia and is concerned for her; pt reports on having a good family although small in number; pt asks for a prayer
[2025-03-11 19:05] VITALS: O2SAT 93
[2025-03-11] MEDS: Polyethylene Glycol 3350 BOWEL PREP PO (21:04)
[2025-03-11 21:12] VITALS: BP 125/72; PULSE 74; RESP 18; TEMP 35.7; O2SAT 97
[2025-03-11 21:29] VITALS: BMI 28.5
[2025-03-12] VITALS (12 sets, daily range): BP systolic 83–143; BP diastolic 58–73; PULSE 63–90; RESP 12–20; TEMP 36.1–36.7; O2SAT 90–98; BMI 28.5
[2025-03-12 04:56] LABS: Hematocrit 37.2 % (40-54); Hemoglobin 12.8 g/dL (13.0-16.5); Immature Granulocytes Count 0.020 X10^3/uL (0.0-0.0); Mean Corp Hgb Conc 34.4 g/dL (32-36); Mean Corpuscular Volume 94.4 fL (80-94); Mean Platelet Vol. 9.3 fl (6.2-12.0); NRBC Flagged by Analyzer 0 % (0-5); Platelet Count 190 K/mm3 (150-450); RBC Distribution Width CV 13.9 % (11.6-14.6); RBC Distribution Width SD 47.9 fl (35.1-43.9); Red Blood Count 3.94 M/mm3 (4.6-6.2); White Blood Count 7.8 K/mm3 (4.4-11.0)
[2025-03-12 05:41] LABS: AST(SGOT) 29 U/L (<=37); Alanine Aminotransfer ALT/SGPT 19 U/L (<=46); Albumin, Serum 3.4 g/dL (3.4-4.8); Alkaline Phosphatase 80 U/L (40-129); Anion Gap 8 (5-15); BUN 22 mg/dL (4-19); BUN/Creat Ratio 22.0 RATIO (10-20); Bilirubin, Direct 0.42 mg/dL (0.00-0.30); Calcium,Total 9.8 mg/dL (7.6-11.0); Carbon Dioxide 24.7 mmol/L (21.0-32.0); Chloride 104 mmol/L (98-108); Estimated Creatinine Clearance 54.61 ml/min (50-250); Globulin 2.3 g/dL (2.2-4.2); Glucose 102 mg/dL (70-99); Potassium 4.5 mmol/L (3.3-5.1)
--- NOTE | 2025-03-12 05:55 | EKG12_ITS ---
Test Reason : PRE-OP Blood Pressure : */* mmHG Vent. Rate : 61 BPM Atrial Rate : 61 BPM P-R Int : 212 ms QRS Dur : 142 ms QT Int : 426 ms P-R-T Axes : 25 -72 18 degrees QTcB Int : 428 ms Sinus rhythm with 1st degree A-V block Left axis deviation Left bundle branch block Abnormal ECG When compared with ECG of 28-Jun-2018 12:26, DC interval has increased Vent. rate has decreased by 30 bpm Left bundle branch block is now Present Confirmed by KELLY PENA ([id number]), editor managing newspaper ADITYA JUAREZ ([id number]) on 03/12/2025 1:10:47 PM Referred By: Confirmed By: KELLY PENA
[2025-03-12 05:58] LABS: Prothrombin Time (Protime)PT. 14.7 SECONDS (11.7-14.9)
[2025-03-12 05:59] LABS: Partial Thromboplast Time 29.5 Seconds (24.1-36.2)
[2025-03-12] MEDS: Albuterol 2.5 MG/3 ML VIAL.NEB. INHALATION ×2 (07:05→13:30)
[2025-03-12] MEDS: Budesonide Respules 0.5 MG/2 ML AMPUL.NEB. INHALATION (07:05)
[2025-03-12] MEDS: Cholecalciferol (Vit D3) 125 MCG CAPSULE (5,000 UNITS) PO (08:36)
[2025-03-12] MEDS: Latanoprost 0.005% 1 Bottle 1 DRP OPHTHALMIC (08:36)
--- NOTE | 2025-03-12 11:34 | PCM.PN.HOSP ---
Subjective Subjective Currently n.p.o. for possible endoscopy today. Hemoglobin is 12.8 so clearly what ever bleeding he has is not significant Objective Data Objective Data Vital Signs: Vital Signs Temp Pulse Resp BP Pulse Ox O2 Del Method 97.8 F 63 20 H 107/60 90 Room Air 03/12/25 06:20 03/12/25 07:05 03/12/25 07:05 03/12/25 06:20 03/12/25 07:05 03/12/25 07:05 Oxygen Delivery Method Room Air Weight: 182 lb 1.629 oz Body Mass Index (BMI) 28.5 Intake & Output: Intake and Output for Last 24 Hours 03/11/25 03/12/25 03/13/25 03:59 03:59 03:59 Intake Total 1100 / 1100 0 / 0 Balance 1100 / 1100 0 / 0 Lab / Micro Data 03/12/25 04:48 03/12/25 04:48 Labs: Laboratory Results - last 24 hr 03/12/25 04:48: WBC 7.8, RBC 3.94 L, Hgb 12.8 L, Hct 37.2 L, MCV 94.4 H, MCH 32.5 H, MCHC 34.4, RDW Std Deviation 47.9 H, RDW Coeff of Nohemi 13.9, Plt Count 190, MPV 9.3, Immature Gran % (Auto) 0.300, Neut % (Auto) 70.3 H, Lymph % (Auto) 16.7 L, [place] % (Auto) 9.7, Eos % (Auto) 2.2, Baso % (Auto) 0.8, Absolute Neuts (auto) 5.5, Absolute Lymphs (auto) 1.31, Nucleated RBC % 0, PT 14.7, INR 1.1, APTT 29.5, Sodium 137, Potassium 4.5, Chloride 104, Carbon Dioxide 24.7, Anion Gap 8, BUN 22 H, Creatinine 0.98, Estim Creat Clear Calc 54.61, Est GFR (MDRD) Non-Af 74, BUN/Creatinine Ratio 22.0 H, Glucose 102 H, Calcium 9.8, Total Bilirubin 0.84, Direct Bilirubin 0.42 H, AST 29, ALT 19, Alkaline Phosphatase 80, Total Protein 5.7 L, Albumin 3.4, Globulin 2.3 Micro: Microbiology 03/10/25 08:12 Stool Stool Occult Blood (LEXI) - Final Occult Blood Positive Physical Exam Narrative General: Alert, Oriented x3, Cooperative, No apparent distress HEENT: Atraumatic, PERRLA, EOMI, Normocephalic Oral: Moist Mucosa Neck: Supple, No JVD Lungs: Diminished, Normal air movement, No rhonchi, No wheeze, No rales Cardiovascular: Regular rate, Regular Rhythm, Normal S1, Normal S2, No murmurs Abdomen: Soft, Non Tender, Non-Distended, No Hepato-splenomegaly Extremities: No edema, Capillary Refill Less than 3 Seconds Skin: No rashes, No breakdown Musculoskeletal: No Tenderness to Palpation of Joints or Extremities Neurological: No focal neurological deficits, Motor Exam 5/5 strength throughout, Sensory exam intact to light touch and pain Psych/Mental Status: Normal Affect, Appropriate Assessment & Plan Assessment/Plan (1) Lower GI bleed: PLAN: Plan 1. Bright red blood per rectum suspected secondary to recurrent diverticular bleed ? Admit under inpatient status to PCU. GI consulted. ? 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 Hemoglobin 12.9 on admit today he is 12.8 ? Will keep n.p.o. at midnight with plan for possible lower scope today though given the stability if he does not get it today we will plan for discharge and outpatient follow-up ? He did have a mild elevation in his creatinine, nothing that indicated an SANTOS and it is back to baseline today 2. Essential HTN/HLD ? Blood pressures are stable ? Will hold his ramipril as he is currently n.p.o. ? Continue with fenofibrate 3. GERD ? Stable ? Continue with PPI 4. Neuropathy ? Stable ? Continue with gabapentin 5. COPD ? Not in exacerbation ? Continue with his home inhalers 6. Glaucoma ? Stable ? 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 Continue with Flomax DVT: SCDs Charges/Coding Visit Charges Inpatient E&M: 20420 Subs Hosp L2
--- NOTE | 2025-03-12 13:21 | DCINST_ITS ---
Discharge Instructions DC O2, CPAP, BIPAP needs Home O2 Discharge instructions: No Dressing / Incision Discharge Activity: Return to Normal Activity Dressing / Incision Call your doctor if you observe: Fever of 101 or Higher, Shortness of breath, Dizziness, Fainting spells, Swelling in the ankles, Chest pain and Increased palpitations (irregular heartbeat) Follow Up Care Test Results: Test results from this visit will be discussed in further detail at your follow- up appointment, if applicable. Discharge Plan Admission Admit Date/Time: 03/10/25 19:22 Attending Provider: Jaspal Prasad Primary Care Provider: Kameron Murillo Consulting Providers: Miller Vides; Riky Li; Jf Mack; Alessia Samuels; Samaria Carlin; Lauren Webber Instructions Additional Instructions / Restrictions: Follow-up with your PCP in 3 to 5 days to monitor your hemoglobin, as we discussed if you develop lightheadedness or dizziness while having bright red blood per rectum come to the hospital otherwise call your PCP to monitor your hemoglobin if you have intermittent episodes of bleeding to determine if and when you need to be evaluated as diverticular bleeding can be oftentimes self- limited. Discharge Orders/Prescriptions Prescriptions: Continued albuterol sulfate 1 INHALER inhaler 2 puff inhalation Q4H PRN (Reason: Sob &/Or Wheezing) ramipril 10 MG capsule 10 mg PO DAILY Patient Comments: BLOOD PRESSURE pantoprazole 40 MG tablet 40 mg PO DAILY Patient Comments: ACID REFLUX tamsulosin 0.4 MG capsule 0.4 mg PO QHS Patient Comments: PROSTATE cholecalciferol (vitamin D3) 1,000 UNIT tablet 5,000 unit PO TID budesonide-formoterol 1 INHALER inhaler 2 puff inhalation BID fenofibrate 160 MG tablet 160 mg PO DAILY gabapentin 600 mg tablet 600 mg PO TID latanoprost 0.005 % drops 1 drp ophthalmic (eye) DAILY albuterol sulfate 2.5 mg /3 mL (0.083 %) solution for nebulization 2.5 mg continuous nebulization Q4H PRN (Reason: wheezing) Patient Comments: PT HAS NOT USED YET Referrals / Follow Up: Kameron Murillo MD [Primary Care Provider] - Within 1 Week Jf Mack DO [Med Staff - Active Staff] - Within 1 Month Disposition Disposition (needs filled in before D/C Order can be placed): Home, Self Care
--- NOTE | 2025-03-12 13:36 | PHA.DC_ITS ---
Pharmacy [facility] Reconciliation Pharmacy Service has performed discharge medication reconciliation for this patient. The patient's discharge medication list was reviewed for discrepancies and discrepancies were resolved. Medications at Discharge Home Medications albuterol sulfate 90 mcg/actuation aerosol inhaler 2 puff inhalation Q4H PRN Sob &/Or Wheezing 07/05/14 ramipril 10 mg capsule 10 mg PO DAILY BP 07/05/14 pantoprazole 40 mg tablet,delayed release 40 mg PO DAILY gerd 08/21/14 cholecalciferol (vitamin D3) 25 mcg (1,000 unit) tablet 5,000 unit PO TID Supplement 11/23/14 tamsulosin 0.4 mg capsule 0.4 mg PO QHS Prostate 11/23/14 budesonide-formoterol HFA 160 mcg-4.5 mcg/actuation aerosol inhaler 2 puff inhalation BID Breathing 06/28/18 fenofibrate 160 mg tablet 160 mg PO DAILY cholesterol 04/10/19 albuterol sulfate 2.5 mg/3 mL (0.083 %) solution for nebulization 2.5 mg cont inuous nebulization Q4H PRN wheezing 11/08/24 gabapentin 600 mg tablet 600 mg PO TID neuropathy 11/08/24 latanoprost 0.005 % eye drops 1 drp ophthalmic (eye) DAILY glaucoma 11/08/24
--- NOTE | 2025-03-12 13:57 | CASEMGMT ---
Patient has order for discharge. RN CM in to discuss needs at discharge, daughter at bedside. Patient denies needs or help at discharge. Patient had no further questions or concerns.
[2025-03-12] MEDS: Lactated Ringers 1,000 ML 15 ML IV (15:06)
--- NOTE | 2025-03-12 15:11 | PCM.PRE.AN2 ---
ASA Classification* ASA Classification ASA Classification: 3 Assessment & Plan Anesthesia* Anesthesia Assessment Anesthesia Assessment: Discussed sedation and/or anesthesia options, risks, benefits, and alternatives with patient/parents/legal guardian/POA. Questions invited. The patient/parents/legal guardian/POA seems to understand and agrees to proceed with anesthesia plan. Reviewed the physical assessment, medical history, allergy history and patient home medications list prior to surgery/procedure/anesthetic and documented any changes. Performed airway and anesthesia risk assessments. Anesthesia Type Anesthesia Type: MAC History Source History Obtained from:: Patient and Chart Anesthesia Focused Assessment* Temperature: 98.0 F Pulse Rate: 90 Blood Pressure: 106/72 Respiratory Rate: 12 Pulse Ox: 98 Oxygen Delivery Method: Room Air Airway Assessment Mouth opens: >3 cm Mallampati Score: I Teeth Condition: Missing (Multiple missing teeth. Remaining teeth are tight.) Neck Range of motion (ROM): Limited ROM (Somewhat Decreased) Labs Anesthesia Preop lab: CBC WBC 7.8 K/mm3 (4.4-11.0) 03/12/25 04:48 03/12/25 RBC 3.94 M/mm3 (4.6-6.2) L 03/12/25 04:48 03/12/25 Hgb 12.8 g/dL (13.0-16.5) L 03/12/25 04:48 03/12/25 Hct 37.2 % (40-54) L 03/12/25 04:48 03/12/25 Plt Count 190 K/mm3 (150-450) 03/12/25 04:48 03/12/25 CHEMISTRY Potassium 4.5 mmol/L (3.3-5.1) 03/12/25 04:48 03/12/25 Sodium 137 mmol/L (133-145) 03/12/25 04:48 03/12/25 Magnesium 1.6 mg/dL (1.5-2.2) 11/08/24 18:28 11/08/24 Phosphorus 3.3 mg/dL (2.7-4.5) 11/10/24 03:56 11/10/24 BUN 22 mg/dL (4-19) H 03/12/25 04:48 03/12/25 Creatinine 0.98 mg/dL (0.70-1.20) 03/12/25 04:48 03/12/25 Glucose 102 mg/dL (70-99) H 03/12/25 04:48 03/12/25 POC Glucose 104 mg/dL (74-106) 03/12/25 13:14 03/12/25 TSH 2.530 uIU/mL (0.300-4.200) 11/08/24 18:28 11/08/24 COAG PT 14.7 SECONDS (11.7-14.9) 03/12/25 04:48 03/12/25 Pre-Assessment Diagnosis/Proposed Procedure Planned Operative Procedure(s): Colonoscopy with possible biopsy and/or polypectomy. Anesthesia History Anesthesia History - information manager: Anesthesia History - information manager Hx Hospitalization No 06/27/20 15:49 Any Problems With Anesthesia Yes: N/V, unsure which 03/11/25 21:24 medicaion Cholinesterase deficiency No 03/11/25 21:24 You/Your Family Experience No 03/11/25 21:24 fever (hyperthermia) with Relationship Recent Exposure to Contagious No 03/11/25 21:24 Disease Does patient have nerve No 03/11/25 21:24 stimulator Patient instructed to have No 03/11/25 21:24 device shut off --Does patient have Pacemaker No 03/12/25 14:56 or ICD? When Was Last Pacemaker Check QUESTION #4 FULL TEXT: You/Your Family Experience fever (hyperthermia) with Anesthesia Last Oral Intake Last Oral intake: Last Oral Intake NPO since 23:30 03/12/25 14:56 Meds taken in AM with sips of No 03/12/25 14:56 water? Meds patient instructed to take am of surgery PONV PONV - information manager: PONV - information manager Female HX of Motion Sickness HX of N/V After Surgery Non-Smoker Duration of Surgery greater than 60 minutes Number of Risk Factors PONV Score Height & Weight Height & Weight: Anesthesia: Height & Weight Height 5 ft 7 in 03/11/25 21:29 Weight: 82.6 kg 03/11/25 21:29 Body Mass Index (BMI) 28.5 03/12/25 14:56 Respiratory Assessment Respiratory Assessment - information manager: Respiratory Tract Infection Hx - information manager Hx Respiratory Tract Infection No 03/11/25 21:24 STOP Sleep Apnea STOP Sleep Apnea - information manager: STOP Sleep Apnea - information manager Hx Hypertension Yes 03/10/25 20:18 Hx Sleep Apnea No 03/10/25 20:18 CPAP BIPAP Do you snore loudly (louder No 03/10/25 20:18 than talking or can be heard Do you often feel tired/ No 03/10/25 20:18 fatigued/ sleepy during daytime? Has anyone observed you stop No 03/10/25 20:18 breathing during sleep? STOP Results Negative 03/10/25 20:18 QUESTION #5 FULL TEXT : Do you snore loudly (louder than talking or can be heard through closed doors)? Tobacco Use History Tobacco Use History - information manager: Tobacco Use History - information manager Tobacco Use Non-smoker 11/08/24 17:59 Smoking Status Never smoker 03/10/25 20:18 Hx Tobacco Use No 03/10/25 20:18 Years Smoking Packs Smoked per Day Smoking Cessation Date was within the last 15 years Hx Smoking Cessation Date Hx Smoking Cessation No 03/10/25 20:18 Counseling Hematologic Medial History Hematologic Hx - information manager: Hematologic Medical Hx - clinical documentation developer Hx of Blood Transfusion Yes 03/10/25 20:18 Hx of Transfusion in last 3 No 03/10/25 20:18 Months Date of Last Transfusion (if within last 3 months) Ever experience any problems No 03/10/25 20:18 with transfusion(s)? Specify any problems Hx of Preganancy in last 3 N/A 03/10/25 20:18 Months Nurse Filling Out Transfusion ALOWDEN 03/10/25 20:18 & Questions: Date: 03/10/25 03/10/25 20:18 Time: 20:28 03/10/25 20:18 Patient unable to answer at this time (ie. confused, unrespo /Reproduction History /Reproductive History - information manager: /Reproductive Hx- information manager Hx Now No 03/11/25 21:24 Gestational Age (in weeks): EDC: Hx Hx Para Hx Section SAB No 03/11/25 21:24 Active Medications Active Medications: Current Medications Generic Name Dose Route Start Last Admin Trade Name Freq PRN Reason Stop Dose Admin Acetaminophen 650 mg 03/10/25 20:18 03/11/25 21:15 Acetaminophen 325 Mg Tablet PO 650 mg Q6H PRN PRN Administration Pain 1-10 Or Fever>100.7 Albuterol Sulfate 2.5 mg 03/10/25 20:58 Albuterol 2.5 Mg/3 Ml Vial.Neb. INHALATION Q4H PRN PRN Sob &/Or Wheezing Albuterol Sulfate 2.5 mg 03/10/25 21:15 03/12/25 13:30 Albuterol 2.5 Mg/3 Ml Vial.Neb. INHALATION 2.5 mg Q6HWA.RT SHILA Administration Budesonide 0.5 mg 03/10/25 21:15 03/12/25 07:05 Budesonide Respules 0.5 Mg/2 Ml Ampul.Neb. INHALATION 0.5 mg Q12H.RT SHILA Administration Calamine/Phenol 1 applic 03/12/25 10:00 03/12/25 08:35 Menthol/Lanolin/Calamine/Znox 113 Gm Tube TOPICAL 1 dose BID SHILA Administration Protocol Cholecalciferol 125 mcg 03/11/25 10:00 03/12/25 08:36 Cholecalciferol (Vit D3) 125 Mcg Capsule (5,000 Units) PO 125 mcg DAILY SHILA Administration Fenofibrate 145 mg 03/11/25 10:00 03/12/25 08:36 Fenofibrate 145 Mg Tablet PO 145 mg DAILY SHILA Administration Gabapentin 600 mg 03/10/25 22:00 03/12/25 13:15 Gabapentin 600 Mg Tablet PO 600 mg TID SHILA Administration Sodium Chloride 250 mls @ 15 mls/hr 03/10/25 20:19 IV .[id number] PRN Saline Flush Sodium Chloride 250 mls @ 15 mls/hr 03/10/25 20:19 IV .[id number] PRN Additional IVPB Infusion Lactated Ringer's 1,000 mls @ 15 mls/hr 03/12/25 15:00 03/12/25 15:06 IV 15 mls/hr .Q48H SHILA Administration Latanoprost 1 drp 03/11/25 10:00 03/12/25 08:36 Latanoprost 0.005% 1 Bottle OPHTHALMIC 1 drp DAILY SHILA Administration Melatonin 3 mg 03/10/25 20:18 Melatonin 3 Mg Tablet PO QHS PRN PRN INSOMNIA Ondansetron HCl 4 mg 03/10/25 20:18 Ondansetron 4 Mg/2 Ml Vial IV Q8H PRN PRN NAUSEA/VOMITING Pantoprazole Sodium 40 mg 03/11/25 10:00 03/12/25 08:36 Pantoprazole Sodium 40 Mg Tablet PO 40 mg DAILY SHILA Administration Sodium Chloride 10 - 40 ml 03/10/25 20:19 03/11/25 14:59 0.9% Saline Lock 10 Ml Syringe IV 10 ml UD PRN Administration SALINE FLUSH Tamsulosin HCl 0.4 mg 03/10/25 22:00 03/11/25 21:16 Tamsulosin Hcl 0.4 Mg Capsule PO 0.4 mg QHS SHILA Administration PFSH Medical History PAD (peripheral artery disease) Renal cyst Vertebrobasilar artery syndrome Diverticulosis Kidney stone Lung nodule AAA (abdominal aortic aneurysm) Bilateral carotid artery stenosis Asthma Arthritis Diverticular hemorrhage Lower GI bleed BPH (benign prostatic hyperplasia) GERD (gastroesophageal reflux disease) Peripheral neuropathy History of gastrointestinal bleeding Hx-TIA (transient ischemic attack) Chronic obstructive lung disease HTN (hypertension), benign Home Medications ?Medication ?Instructions ?Recorded ?Last Taken ?Type albuterol sulfate 90 mcg/actuation 2 puff inhalation Q4H PRN Sob &/Or 07/05/14 03/10/25 History aerosol inhaler Wheezing ramipril 10 mg capsule 10 mg PO DAILY BP 07/05/14 03/10/25 History pantoprazole 40 mg tablet,delayed 40 mg PO DAILY gerd 08/21/14 11/08/24 History release cholecalciferol (vitamin D3) 25 5,000 unit PO TID Supplement 11/23/14 03/10/25 History mcg (1,000 unit) tablet tamsulosin 0.4 mg capsule 0.4 mg PO QHS Prostate 11/23/14 03/09/25 20:40 History budesonide-formoterol HFA 160 2 puff inhalation BID Breathing 06/28/18 03/10/25 08:39 History mcg-4.5 mcg/actuation aerosol inhaler fenofibrate 160 mg tablet 160 mg PO DAILY cholesterol 04/10/19 03/10/25 History albuterol sulfate 2.5 mg/3 mL 2.5 mg continuous nebulization Q4H 11/08/24 Unknown History (0.083 %) solution for nebulization PRN wheezing gabapentin 600 mg tablet 600 mg PO TID neuropathy 11/08/24 03/10/25 02:40 History latanoprost 0.005 % eye drops 1 drp ophthalmic (eye) DAILY 11/08/24 03/10/25 History glaucoma Allergy/AdvReac Type Severity Reaction Status Date / Time cerivastatin sodium (From Allergy Severe Other Verified 03/10/25 15:48 Baycol) gemfibrozil (From Lopid) AdvReac Other Verified 03/10/25 15:48 meperidine (From Demerol) AdvReac Other Verified 03/10/25 15:48 Surgical History Total knee replacement status History of colonoscopy (~03/2019) History of esophagogastroduodenoscopy (EGD) (~03/2019) History of back surgery History of detached retina repair Status post vasectomy History of cholecystectomy History of left knee replacement History of back surgery Social History household members: none Smoking Status: Never smoker Review of Systems (Anesthesia) ROS Narrative System reviewed and no additional complaints, except as documented. Physical Exam Resp Auscultation: wheezes expiratory wheezes (Will plan to give DuoNeb nebulizer treatment.)
--- NOTE | 2025-03-12 16:24 | PCM.PN.BLA ---
Progress Note Patient has been n.p.o. for colonoscopy today. He tolerated department any problems. Physical Exam Const alert, oriented x3, no apparent distress and healthy appearing General Appearance: cooperative GI normal to inspection, nondistended, normoactive bowel sounds, soft to palpation, non-tender and non-distended Percussion: normal to percussion Rectal Exam: deferred Assessment & Plan Assessment/Plan (1) Rectal bleed: PLAN: The patient will undergo colonoscopy to evaluate his lower GI tract. He was explained alternatives, risk and benefits include not withstanding bleeding, fracture, steps, perforation, need for surgery . He will have an ASA of 3. Visit Charges Inpatient E&M: 03018 Subs Hosp L2
[2025-03-12] MEDS: Lactated Ringers 1,000 ML 1000 ML IV (16:33)
--- NOTE | 2025-03-12 16:53 | PCM.POST.ANE ---
Anesthesia: Postop Eval I Current Vital Signs Temperature: 97.8 F Pulse Rate: 84 Blood Pressure: 83/58 Respiratory Rate: 16 Pulse Ox: 97 Oxygen Delivery Method: Room Air Assessment Airway patent: Yes Spontaneous unlabored respirations: Yes Mental status: Awake and Calm nausea: No Vomiting: No Anesthesia Complication: No Fluid Hydration Crystalloid volume administer (ml): 100 Total IV fluid infused: 100 Progress Note Anesthesia document: Postop Eval 1 completed: Yes
--- NOTE | 2025-03-12 16:55 | OP.COLON_ITS ---
Patient Name: Leandro Hernandez Procedure Date: 03/12/2025 4:37 PM Date of : 1935 Age: 89 Procedure: Colonoscopy Indications: Hematochezia Providers: Jf Mack DO Medicines: Monitored Anesthesia Care Patient Profile: This is an 89 year old male. Refer to note in patient chart for documentation of history and physical. Last Colonoscopy: several years ago. Complications: No immediate complications. Procedure: Pre-Anesthesia Assessment: - Prior to the procedure, a History and Physical was performed, and patient medications and allergies were reviewed. The patient is competent. The risks and benefits of the procedure and the sedation options and risks were discussed with the patient. All questions were answered and informed consent was obtained. Patient identification and proposed procedure were verified by the physician in the pre-procedure area. Mental Status Examination: alert and oriented. Airway Examination: normal oropharyngeal airway and neck mobility. Respiratory Examination: clear to auscultation. CV Examination: normal. Prophylactic Antibiotics: The patient does not require prophylactic antibiotics. Prior Anticoagulants: The patient has taken no anticoagulant or antiplatelet agents. ASA Grade Assessment: III - A patient with severe systemic disease. After reviewing the risks and benefits, the patient was deemed in satisfactory condition to undergo the procedure. The anesthesia plan was to use monitored anesthesia care (MAC). Immediately prior to administration of medications, the patient was re-assessed for adequacy to receive sedatives. The heart rate, respiratory rate, oxygen saturations, blood pressure, adequacy of pulmonary ventilation, and response to care were monitored throughout the procedure. The physical status of the patient was re-assessed after the procedure. After I obtained informed consent, the scope was passed under direct vision. Throughout the procedure, the patient's blood pressure, pulse, and oxygen saturations were monitored continuously. The Colonoscope was introduced through the anus and advanced to the cecum, identified by appendiceal orifice and ileocecal valve. The colonoscopy was performed without difficulty. The patient tolerated the procedure well. The quality of the bowel preparation was fair. The ileocecal valve, appendiceal orifice, and rectum were photographed. Scope In: 4:38:16 PM Scope Withdrawal Time 0 hours 3 minutes 31 seconds Scope Out: 4:46:02 PM Total Procedure Duration Time 0 hours 7 minutes 46 seconds Findings: The perianal and digital rectal examinations were normal. Non-bleeding internal hemorrhoids were found during retroflexion. The hemorrhoids were severe, large and Grade IV (internal hemorrhoids that prolapse and cannot be reduced manually). 5 mm, non-bleeding rectal varices were found. Multiple small and large-mouthed diverticula were found in the entire colon. Stool was found in the entire colon. The exam was otherwise without abnormality on direct and retroflexion views. Impression: - Preparation of the colon was fair. - Non-bleeding internal hemorrhoids. - Rectal varices. - Diverticulosis in the entire examined colon. - Stool in the entire examined colon. - The examination was otherwise normal on direct and retroflexion views. - No specimens collected. Recommendation: - Discharge patient to home. - Resume regular diet. - Continue present medications. - No repeat colonoscopy due to age. Procedure Code(s): --- Professional --- 22130, Colonoscopy, flexible; diagnostic, including collection of specimen(s) by brushing or washing, when performed (separate procedure) CPT copyright 2021 [employer]. All rights reserved. The codes documented in this report are preliminary and upon junior systems analyst review may be revised to meet current compliance requirements. Jf Mack DO 03/12/2025 4:55:03 PM This report has been signed electronically. Number of Addenda: 0 Note Initiated On: 03/12/2025 4:37 PM
--- NOTE | 2025-03-12 16:56 | OP.PROVAT_ITS ---
03/12/2025 Kameron Murillo [address] [place] [address] Re : Colonoscopy procedure for Leandro Hernandez Dear Dr. Murillo This procedure was performed on Wednesday, March 12, 2025. My impressions and recommendations are as follows: Impressions : - Preparation of the colon was fair. - Non-bleeding internal hemorrhoids. - Rectal varices. - Diverticulosis in the entire examined colon. - Stool in the entire examined colon. - The examination was otherwise normal on direct and retroflexion views. - No specimens collected. Recommendations : - Discharge patient to home. - Resume regular diet. - Continue present medications. - No repeat colonoscopy due to age. My findings are described in the full procedure note, which is enclosed. If I can be of further assistance, please feel free to contact me at . Sincerely, Jf Mack, 03/12/2025 4:55:03 PM This report has been signed electronically.
--- NOTE | 2025-03-12 17:13 | POSTOPAN2_ITS ---
Anesthesia Postop Eval I Sum Postop Eval Completion status Anesthesia document: Postop Eval 1 completed: Yes Anesthesia Postop Eval I Summary Anesthesia Postop Eval I Summary: Anesthesia Postop Eval I: Assessment Summary Airway patent Yes 03/12/25 16:54 WORKERS COMPENSATION EXAMINER.[email or web address] Spontaneous unlabored Yes 03/12/25 16:54 WORKERS COMPENSATION EXAMINER.PKEL respirations Mental status Awake,Calm 03/12/25 16:54 WORKERS COMPENSATION EXAMINER.PKEL nausea No 03/12/25 16:54 WORKERS COMPENSATION EXAMINER.[email or web address] Vomiting No 03/12/25 16:54 WORKERS COMPENSATION EXAMINER.[email or web address] Anesthesia Postop Eval I: Fluid Summary Crystalloid volume administer 100 03/12/25 16:54 WORKERS COMPENSATION EXAMINER.[email or web address] (ml) Colloids volume administered ( ml) Blood Product volume administered (ml) Total IV fluid infused 100 03/12/25 16:54 WORKERS COMPENSATION EXAMINER.[email or web address] Anesthesia Postop Eval I: Summary Notes Anesthesia Complication No 03/12/25 16:54 WORKERS COMPENSATION EXAMINER.[email or web address] Anesthesia Complication Comment: Post-operative progress note Anesthesia: Postop Eval II Evaluation Mental status: Awake and Calm Pain Level: 0 nausea: No Vomiting: No Complications Anesthesia Complication: No
--- NOTE | 2025-03-12 17:13 | PCM.POSTANE2 ---
Anesthesia Postop Eval I Sum Postop Eval Completion status Anesthesia document: Postop Eval 1 completed: Yes Anesthesia Postop Eval I Summary Anesthesia Postop Eval I Summary: Anesthesia Postop Eval I: Assessment Summary Airway patent Yes 03/12/25 16:54 INDUCTION COORDINATION ENGINEER.[email or web address] Spontaneous unlabored Yes 03/12/25 16:54 INDUCTION COORDINATION ENGINEER.PKEL respirations Mental status Awake,Calm 03/12/25 16:54 INDUCTION COORDINATION ENGINEER.PKEL nausea No 03/12/25 16:54 INDUCTION COORDINATION ENGINEER.[email or web address] Vomiting No 03/12/25 16:54 INDUCTION COORDINATION ENGINEER.[email or web address] Anesthesia Postop Eval I: Fluid Summary Crystalloid volume administer 100 03/12/25 16:54 INDUCTION COORDINATION ENGINEER.PKEL (ml) Colloids volume administered ( ml) Blood Product volume administered (ml) Total IV fluid infused 100 03/12/25 16:54 INDUCTION COORDINATION ENGINEER.[email or web address] Anesthesia Postop Eval I: Summary Notes Anesthesia Complication No 03/12/25 16:54 INDUCTION COORDINATION ENGINEER.PKEL Anesthesia Complication Comment: Post-operative progress note Anesthesia: Postop Eval II Evaluation Mental status: Awake and Calm Pain Level: 0 nausea: No Vomiting: No Complications Anesthesia Complication: No
--- NOTE | 2025-03-12 17:15 | PCM.DC.SUM ---
Providers Date of Admission: 03/10/25 Primary Care Physician: Dr. Kameron Murillo MD Consultations 03/10/25 20:18 Consult: Gastroenterology Routine Consulting Provider: [facility] Reason for Consult: lower GIB, h/o diverticular bleed EMERGENT Consult: No MD Notified: Yes Date Notified: 03/11/25 Time Notified: 19:24 Method of Notification: Text Reason For Visit: LOWER GI BLEED Diagnosis Discharge Diagnosis (1) Rectal bleed: Status: Acute Code(s): K62.5 - Hemorrhage of anus and rectum Medications at Discharge Home Medications albuterol sulfate 90 mcg/actuation aerosol inhaler 2 puff inhalation Q4H PRN Sob &/Or Wheezing 07/05/14 ramipril 10 mg capsule 10 mg PO DAILY BP 07/05/14 pantoprazole 40 mg tablet,delayed release 40 mg PO DAILY gerd 08/21/14 cholecalciferol (vitamin D3) 25 mcg (1,000 unit) tablet 5,000 unit PO TID Supplement 11/23/14 tamsulosin 0.4 mg capsule 0.4 mg PO QHS Prostate 11/23/14 budesonide-formoterol HFA 160 mcg-4.5 mcg/actuation aerosol inhaler 2 puff inhalation BID Breathing 06/28/18 fenofibrate 160 mg tablet 160 mg PO DAILY cholesterol 04/10/19 albuterol sulfate 2.5 mg/3 mL (0.083 %) solution for nebulization 2.5 mg continuous nebulization Q4H PRN wheezing 11/08/24 gabapentin 600 mg tablet 600 mg PO TID neuropathy 11/08/24 latanoprost 0.005 % eye drops 1 drp ophthalmic (eye) DAILY glaucoma 11/08/24 Hospital Course Operations None Procedures Colonoscopy Summary of Care Provided Minutes Spent on Discharge: 45 Hospital Course: Per HPI: PACO WHITNEY, is a 89 M who presented to [facility] ED on 03/10/2025 with lower GI bleed. Medical history significant for diverticulosis with diverticular bleeds. Last diverticular bleed was back in 2019. He presented with bright red blood per rectum with significant clots. Colonoscopy showed diverticulosis in the entire examined colon with blood in the sigmoid colon, no active signs of bleeding. Patient notes that his was hospitalized here this week and is now at [place], and he has been on his normal routine and frequently going back and forth from home to the hospital and now [place]. He has also been eating out with more meals over that timeframe. This afternoon while he was out of the house, he fell again to have an urgent bowel movement and went to the bathroom and had a bloody stool. He then went home and had another bloody bowel movement, so he came in for further evaluation. In the ED he had a third bright red stool. He was normotensive and hemodynamically stable on room air. Hemoglobin 12.9, baseline 12-13. BMP with creatinine 1.33, baseline 1.1-1.2. CT abdomen pelvis showed diverticulosis with no source of bleeding identified. Given the multiple episodes of BRBPR and history of diverticular hemorrhage, hospitalist was contacted for admission. I saw the patient at bedside in the ED, family members were present. Patient was mildly fatigued appearing but otherwise sitting back comfortably in bed, conversing normally, in no acute distress. Patient was alert and oriented x 3 and is mentally sharp for his age. Had mild left lower quadrant abdominal pain but otherwise denies any other pain or discomfort. No other acute concerns currently. Will be admitted for further management. Hospital Course: 1. Bright red blood per rectum suspected secondary to recurrent diverticular bleed and internal hemorrhoids?89-year-old male presented from home to the hospital because of bright red blood per rectum and clots. Hemoglobin was minimally lowered on admission to 12.9 in October of this year he was around 13 and on the day of discharge she was 12.8. No further episodes of bleeding but he did have a colonoscopy which demonstrated significant diverticulosis as well as internal hemorrhoids. I discussed with him the possibly for discharge after his colonoscopy and he expressed understanding of the risks and benefits of going home and would like to go home today. Since there is no active bleeding on his colonoscopy I think going home is reasonable at this time. I do recommend that he follow-up with his PCP in 3 to 5 days to monitor his hemoglobin and I also have him following up with gastroenterology as an outpatient. We discussed indications for returning to the hospital and those include but not limited to symptomatic bleeding with lightheadedness and dizziness. 2. 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 His home medications were continued where appropriate. Physical Exam Narrative General: Alert, Oriented x3, Cooperative, No apparent distress HEENT: Atraumatic, PERRLA, EOMI, Normocephalic Oral: Moist Mucosa Neck: Supple, No JVD Lungs: Diminished, Normal air movement, No rhonchi, No wheeze, No rales Cardiovascular: Regular rate, Regular Rhythm, Normal S1, Normal S2, No murmurs Abdomen: Soft, Non Tender, Non-Distended, No Hepato-splenomegaly Extremities: No edema, Capillary Refill Less than 3 Seconds Skin: No rashes, No breakdown Musculoskeletal: No Tenderness to Palpation of Joints or Extremities Neurological: No focal neurological deficits, Motor Exam 5/5 strength throughout, Sensory exam intact to light touch and pain Psych/Mental Status: Normal Affect, Appropriate Weight / BMI Weight Weight: 182 lb 1.629 oz Body Mass Index (BMI) 28.5 ABG / Lab / Microbiology Data 03/12/25 04:48 03/12/25 04:48 Laboratory: Laboratory Results - last 24 hr 03/12/25 04:48: WBC 7.8, RBC 3.94 L, Hgb 12.8 L, Hct 37.2 L, MCV 94.4 H, MCH 32.5 H, MCHC 34.4, RDW Std Deviation 47.9 H, RDW Coeff of Nohemi 13.9, Plt Count 190, MPV 9.3, Immature Gran % (Auto) 0.300, Neut % (Auto) 70.3 H, Lymph % (Auto) 16.7 L, [place] % (Auto) 9.7, Eos % (Auto) 2.2, Baso % (Auto) 0.8, Absolute Neuts (auto) 5.5, Absolute Lymphs (auto) 1.31, Nucleated RBC % 0, PT 14.7, INR 1.1, APTT 29.5, Sodium 137, Potassium 4.5, Chloride 104, Carbon Dioxide 24.7, Anion Gap 8, BUN 22 H, Creatinine 0.98, Estim Creat Clear Calc 54.61, Est GFR (MDRD) Non-Af 74, BUN/Creatinine Ratio 22.0 H, Glucose 102 H, Calcium 9.8, Total Bilirubin 0.84, Direct Bilirubin 0.42 H, AST 29, ALT 19, Alkaline Phosphatase 80, Total Protein 5.7 L, Albumin 3.4, Globulin 2.3 03/12/25 13:14: POC Glucose 104 Microbiology: Microbiology 03/10/25 08:12 Stool Stool Occult Blood (LEXI) - Final Occult Blood Positive D/C Instructions Call your doctor if you observe: Fever of 101 or Higher, Shortness of breath, Dizziness, Fainting spells, Swelling in the ankles, Chest pain and Increased palpitations (irregular heartbeat) DC O2, CPAP, BIPAP Needs Home O2 Discharge instructions: No Meaningful Use Info Meaningful Use Meaningful Use Diagnoses (Choose all that apply): None applicable Discharge Plan Admission Admit Date/Time: 03/10/25 19:22 Attending Provider: Jaspal Prasad Primary Care Provider: Kameron Murillo Consulting Providers: Miller Vides; Riky Li; Jf Mack; Alessia Samuels; Daniel Canseco; Lauren Webber Instructions Additional Instructions / Restrictions: Follow-up with your PCP in 3 to 5 days to monitor your hemoglobin, as we discussed if you develop lightheadedness or dizziness while having bright red blood per rectum come to the hospital otherwise call your PCP to monitor your hemoglobin if you have intermittent episodes of bleeding to determine if and when you need to be evaluated as diverticular bleeding can be oftentimes self-limited. Discharge Orders/Prescriptions Prescriptions: Continued albuterol sulfate 1 INHALER inhaler 2 puff inhalation Q4H PRN (Reason: Sob &/Or Wheezing) ramipril 10 MG capsule 10 mg PO DAILY Patient Comments: BLOOD PRESSURE pantoprazole 40 MG tablet 40 mg PO DAILY Patient Comments: ACID REFLUX tamsulosin 0.4 MG capsule 0.4 mg PO QHS Patient Comments: PROSTATE cholecalciferol (vitamin D3) 1,000 UNIT tablet 5,000 unit PO TID budesonide-formoterol 1 INHALER inhaler 2 puff inhalation BID fenofibrate 160 MG tablet 160 mg PO DAILY gabapentin 600 mg tablet 600 mg PO TID latanoprost 0.005 % drops 1 drp ophthalmic (eye) DAILY albuterol sulfate 2.5 mg /3 mL (0.083 %) solution for nebulization 2.5 mg continuous nebulization Q4H PRN (Reason: wheezing) Patient Comments: PT HAS NOT USED YET Referrals / Follow Up: Kameron Murillo MD [Primary Care Provider] - 03/19/25 9:00 am (APPOINTMENT WITH [facility] Friend,DO Jf [Med Staff - Active Staff] - 04/08/25 9:30 am (NEW PATIENT APPOINTMENT WITH [facility] Disposition Disposition (needs filled in before D/C Order can be placed): Home, Self Care Charges/Coding Visit Charges Inpatient E&M: 20783 Disch Hosp >30min
== END 2025-03-12 17:53 | disposition home or self-care (01) | DRG 378 ==
LOC: ED 19:43 → PCU 20:00
PROVIDERS: Anesthesiology; Internal Medicine Gastroenterology; Admitting Provider Hospitalist; Emergency Provider Emergency Medicine; PCP Family Medicine; Visit Provider Family Medicine
PROC: 0DJD8ZZ Inspection of Lower Intestinal Tract, Via Natural or Artificial Opening Endoscopic (ICD-10-PCS; CPT 45378; principal; 2025-03-12 15:55)
DX: K62.5 Hemorrhage of anus and rectum (principal); N13.8 Other obstructive and reflux uropathy; J44.9 Chronic obstructive pulmonary disease, unspecified; I10 Essential (primary) hypertension; I71.40 Abdominal aortic aneurysm, without rupture, unspecified; D64.9 Anemia, unspecified; G62.9 Polyneuropathy, unspecified; E78.5 Hyperlipidemia, unspecified; E86.0 Dehydration; K21.9 Gastro-esophageal reflux disease without esophagitis; K64.3 Fourth degree hemorrhoids; I86.8 Varicose veins of other specified sites; K57.30 Diverticulosis of large intestine without perforation or abscess without bleeding; R79.89 Other specified abnormal findings of blood chemistry; H40.9 Unspecified glaucoma; N40.1 Benign prostatic hyperplasia with lower urinary tract symptoms; Z79.82 Long term (current) use of aspirin; Z90.49 Acquired absence of other specified parts of digestive tract; Z87.19 Personal history of other diseases of the digestive system; Z86.73 Personal history of transient ischemic attack (TIA), and cerebral infarction without residual deficits; Z79.51 Long term (current) use of inhaled steroids; Z79.899 Other long term (current) drug therapy
CPT/HCPCS: 36415; 74177; 80048; 80053; 80076; 81001; 82274; 82962; 83690; 85025; 85027; 85610; 85730; 93005; 94640; 94668; 99252; 99284; Q9967; A4216; G0463

== ENCOUNTER 2025-05-19 12:57 | Observation (INO) | payer MEDICARE, SELFPAY ==
[2025-05-19] VITALS (11 sets, daily range): BP systolic 90–130; BP diastolic 51–78; PULSE 61–81; RESP 16–18; TEMP 36.6–37.2; O2SAT 94–98; BMI 29.6; BMI 28.4
--- NOTE | 2025-05-19 13:02 | EKG12_ITS ---
Test Reason : CP Blood Pressure : */* mmHG Vent. Rate : 73 BPM Atrial Rate : 73 BPM P-R Int : 188 ms QRS Dur : 128 ms QT Int : 380 ms P-R-T Axes : 44 -81 64 degrees QTcB Int : 418 ms Normal sinus rhythm Left axis deviation Left bundle branch block Abnormal ECG Confirmed by Juan Brown ([id number]), editorial writer ADITYA JUAREZ ([id number]) on 05/21/2025 8:51:35 AM Referred By: Confirmed By: Juan Brown
[2025-05-19 13:33] LABS: Hematocrit 36.1 % (40-54); Hemoglobin 12.0 g/dL (13.0-16.5); Immature Granulocytes Count 0.040 X10^3/uL (0.0-0.0); Mean Corp Hgb Conc 33.2 g/dL (32-36); Mean Corpuscular Volume 97.0 fL (80-94); Mean Platelet Vol. 9.4 fl (6.2-12.0); NRBC Flagged by Analyzer 0 % (0-5); POSITIVE DIFFERENTIAL YES; Platelet Count 187 K/mm3 (150-450); RBC Distribution Width CV 14.3 % (11.6-14.6); RBC Distribution Width SD 51.2 fl (35.1-43.9); Red Blood Count 3.72 M/mm3 (4.6-6.2); White Blood Count 11.8 K/mm3 (4.4-11.0)
[2025-05-19 13:34] LABS: Differential Indicated SCAN CRITERIA MET
--- NOTE | 2025-05-19 13:38 | EDS_ITS ---
HPI History of Present Illness Chief Complaint: Chest Pain Informant: patient Onset/Context/Timing Onset: Days (2) Activity at onset: gradual Timing: Continuous Quality: Positive for Tightness and - (Hard pain) Location: Substernal, Right Parasternal, Left Parasternal, Right Chest and Left Chest Worsened By: Breathing Relieved By: Nothing Associated Symptoms: Positive for Dyspnea, Cough and Palpitations; Negative for Nausea, Vomiting, Diaphoresis, Fever, Lightheadedness or Acid Reflux Narrative Narrative: Patient presents with lower chest pain and upper abdominal pain that has been getting worse over the past 1-1/2 days. Patient states it came on gradually. Patient describes it as a tightness and a hard pain over his lower chest and upper abdomen. Patient states it is worse with breathing. Patient admits to a cough and some shortness of breath. Patient also admits to some palpitations. Patient denies any nausea or vomiting. Patient denies any fevers or chills. CVD Risk Factors: Positive for Hypertension and Family History 1' </=55; Negative for Diabetes, Hypercholesterolemia or Smoking PE Risk Factors: Negative for Recent Travel/Surgery, Recent Immobilization, Prior DVT or PE, Cancer or OCP + Smoking + >/=35 PFSH [facility] Medical History (Updated 05/19/25 @ 17:[address] Mervin Blanco, DO) Mass of right lung Mass of right kidney Cirrhosis GI bleed Former smoker Chest pain Hypertension Migraines Stroke/cerebrovascular accident PAD (peripheral artery disease) Renal cyst Vertebrobasilar artery syndrome Diverticulosis Kidney stone Lung nodule AAA (abdominal aortic aneurysm) Bilateral carotid artery stenosis Asthma Arthritis Diverticular hemorrhage Lower GI bleed BPH (benign prostatic hyperplasia) GERD (gastroesophageal reflux disease) Peripheral neuropathy History of gastrointestinal bleeding Hx-TIA (transient ischemic attack) Chronic obstructive lung disease HTN (hypertension), benign Home Medications ?Medication ?Instructions ?Recorded ?Last Taken ?Type albuterol sulfate 90 mcg/actuation 2 puff inhalation Q 4H PRN Sob &/Or 07/05/14 03/10/25 History aerosol inhaler Wheezing ramipril 10 mg capsule 10 mg PO DAILY BP 07/05/14 0 03/10/25 History pantoprazole 40 mg tablet,delayed 40 mg PO DAILY gerd 08/21/14 11/08/24 History release cholecalciferol (vitamin D3) 25 5,000 unit PO TID Supp lement 11/23/14 03/10/25 History mcg (1,000 unit) tablet tamsulosin 0.4 mg capsule 0.4 mg PO QHS Prostate 11/2303/09/25 20:40 History budesonide-formoterol HFA 160 2 puff inhalation BID Br eathing 06/28/18 03/10/25 08:39 History mcg-4.5 mcg/actuation aerosol inhaler fenofibrate 160 mg tablet 160 mg PO DAILY cholesterol 04/10/19 03/10/25 History albuterol sulfate 2.5 mg/3 mL 2.5 mg continuous nebuli zation Q4H 11/08/24 Unknown History (0.083 %) solution for nebulization PRN wheezing gabapentin 600 mg tablet 600 mg PO TID neuropathy 03/10/25 02:40 History latanoprost 0.005 % eye drops 1 drp ophthalmic (eye) D AILY 11/08/24 03/10/25 History glaucoma furosemide 20 mg tablet 20 mg PO QODAY 05/19/25 Unkn own History Allergy/AdvReac Type Severity Reaction Status Date / Time cerivastatin sodium (From Allergy Severe Other Verified 05/19/25 12:58 Baycol) gemfibrozil (From Lopid) AdvReac Other Verified 05/19/25 12:58 meperidine (From Demerol) AdvReac Other Verified 05/19/25 12:58 Surgical History Total knee replacement status History of colonoscopy (~03/2019) History of esophagogastroduodenoscopy (EGD) (~03/2019) History of back surgery History of detached retina repair Status post vasectomy History of cholecystectomy History of left knee replacement History of back surgery Social History household members: none Smoking Status: Former smoker ROS ROS ED Constitutional Constitutional ED: Denies chills or fever(s) Eyes Eyes: Denies blurry vision or change in vision ENT ENT ED: Denies rhinorrhea or sore throat Cardiovascular Cardiovascular: Reports as per HPI, chest pain and palpitations Respiratory/Chest Respiratory/Chest: Reports cough and dyspnea Gastrointestinal Gastrointestinal: Denies nausea or vomiting Genitourinary Genitourinary ED: Denies dysuria or hematuria Musculoskeletal Musculoskeletal: Reports back pain; Denies neck pain Integumentary Denies abscess or rash Neurologic Neurologic: Reports headache(s); Denies weakness Allergic/Immunologic Allergic/Immunologic ED: Denies mouth swelling or urticaria EXAM Physical Exam Const Vital Signs: 05/19/25 12:59 05/19/25 14:00 05/19/25 14:11 Temperature 97.8 F Temperature Source Temporal Pulse Rate 75 81 65 Respiratory Rate 18 Blood Pressure 102/58 L 115/72 115/72 Blood Pressure Mean 72 86 Pulse Ox 98 98 Oxygen Delivery Method Room Air Oxygen Flow Rate (L/min) 05/19/25 14:16 05/19/25 15:00 05/19/25 16:00 Temperature Temperature Source Pulse Rate 61 62 Respiratory Rate Blood Pressure 120/63 130/55 H Blood Pressure Mean 82 80 Pulse Ox Oxygen Delivery Method Room Air Oxygen Flow Rate (L/min) 94 05/19/25 16:54 05/19/25 17:00 Temperature Temperature Source Pulse Rate 71 77 Respiratory Rate Blood Pressure 129/63 H 119/68 Blood Pressure Mean 85 Pulse Ox 94 Oxygen Delivery Method Oxygen Flow Rate (L/min) Positive well nourished and well developed Constitutional Narrative: BMI 29 6. General Appearance ED: well developed and NAD HEENT Reports moist mucous membranes Neck supple and no JVD Chest Wall palpation of chest normal Resp normal respiratory effort and clear to auscultation bilaterally Cardio regular rate and regular rhythm GI soft to palpation and non-distended GI Narrative: There is tenderness over the epigastric area and left upper abdomen. There is no rebound or guarding noted. Extremity normal to inspection Neuro oriented x3, CN's II-XII intact bilaterally and no sensory deficits noted Sensorium / Orientation: awake and alert Motor Exam: strength 5/5 throughout Psych mental status grossly normal Heart Score History: Slightly/Non-Suspicious ECG: Nonspecific Repolarization Age: >/= 65 years Risk Factors: 1 or 2 Risk Factors Troponin: >1 - <3 Normal Limit Score: 5 MDM MDM MDM Narrative Medical decision making narrative: Differential diagnosis includes cardiac dysrhythmia, cardiac ischemia, pneumonia, bronchitis, pancreatitis, peptic ulcer disease, duodenal ulcer, gastroesophageal reflux disease, gastritis, and anxiety. EKG will be obtained to assess for cardiac dysrhythmia and cardiac ischemia. Chest x-ray will be obtained to assess for pneumonia or bronchitis. CBC will be obtained to assess for leukocytosis and anemia. Comprehensive metabolic profile will be obtained to assess for hepatic function, renal function, and electrolyte abnormality. Lipase will be obtained to assess for pancreatitis. High-sensitivity troponin will be obtained to assess for cardiac ischemia. 2-hour repeat high-sensitivity troponin will be obtained to assess for ongoing cardiac ischemia. History & Record Review Additional record(s) reviewed:: Prior labs Lab Data Attestation: I reviewed the patient's lab results. Lab results narrative: CBC was reviewed. There is a mild leukocytosis of 11.8. There is a mild anemia with a hemoglobin of 12.0 and hematocrit 36.1. Platelets were normal. Comprehensive metabolic profile was reviewed. Total bilirubin was normal at 0. 92. Direct bilirubin was minimally elevated at 0.54. AST and ALT were within normal limits. Initial high-sensitivity troponin was reviewed and was elevated at 67. 2-hour repeat high-sensitivity troponin was repeated at and was elevated at 64. Lipase was reviewed and was normal at 46. Labs: Laboratory Results - last 24 hr 05/19/25 05/19/25 13:25 15:38 WBC 11.8 H RBC 3.72 L Hgb 12.0 L Hct 36.1 L MCV 97.0 H MCH 32.3 H MCHC 33.2 RDW Std Deviation 51.2 H RDW Coeff of Nohemi 14.3 Plt Count 187 MPV 9.4 Immature Gran % (Auto) 0.300 Neut % (Auto) 75.0 H Lymph % (Auto) 11.3 L [place] % (Auto) 12.8 H Eos % (Auto) 0.2 Baso % (Auto) 0.4 Absolute Neuts (auto) 8.8 H Absolute Lymphs (auto) 1.33 Nucleated RBC % 0 Sodium 136 Potassium 4.3 Chloride 103 Carbon Dioxide 24.2 Anion Gap 9 BUN 33 H Creatinine 1.07 Est GFR (MDRD) Non-Af 67 BUN/Creatinine Ratio 30.8 H Glucose 90 Calcium 9.5 Total Bilirubin 0.92 Direct Bilirubin 0.54 H AST 33 ALT 17 Alkaline Phosphatase 81 Troponin T High Sens 67 H* Troponin T Hi Sens 2 Hr 64 H* Total Protein 6.0 Albumin 3.4 Globulin 2.6 Lipase 46 Radiography Chest X-Ray - ED: 1 View, Read by ED Physician, Read by Radiologist, Bony Structures (DJD of left shoulder) and No Acute Disease Diagnostic Testing: Clinical Impression(s) from Imaging Studies Chest X-Ray 05/19/25 14:20 IMPRESSION: No acute process. DJD left shoulder. [facility]Pelvis CT 05/19/25 15:00 IMPRESSION: 1. 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 Regional adenopathy in the aortocaval and retrocaval regions. Retrospectively, findings are similar to February 2025. The right renal neoplasm currently measures 4.1 cm, previously measured 2.1 cm in 2018. 2. No superimposed acute findings in the abdomen or pelvis. Colonic diverticulosis without diverticulitis. Reading Location: [facility] Portable 1 view chest x-ray was obtained. On my independent interpretation, lung poe are clear. There is normal cardiac silhouette. Bony thorax shows some DJD of the left shoulder. There is no acute process noted. Radiologist also interpreted the x-ray and agrees. CT scan of the abdomen and pelvis was obtained. 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 These are similar to findings in February 2025. There are no acute findings noted. EKG Initial EKG: Attestation: I personally reviewed and interpreted this EKG as follows: Interpretation: Sinus Rhythm (73), LBBB and Non-Specific ST Changes Comments: EKG was obtained. On my independent interpretation, shows normal sinus rhythm with rate of 73. MI interval was normal at 188 ms. QRS interval was slightly prolonged at 128 ms. QTc interval was 418 ms. There is left axis deviation at -81. Prior EKG tracings: available for review Prior: Unchanged (03/12/2025) Management Discussion w/another healthcare provider: Hospitalist Treatment and Re-Evaluation :: Patient was given aspirin and nitroglycerin. Patient is feeling better on reevaluation. Patient was advised of his findings. Patient has a HEART score of 5. Given the elevated troponins, I recommended admission to the hospital. Patient is agreeable with this. Case was discussed with the hospitalist. He w ill admit the patient to his service. Patient and family understood and were agreeable with the plan. All questions were answered. Discharge Plan Dx/Rx/DC Orders Clinical Impression: Chest pain, HTN (hypertension), benign, Elevated troponin Disposition Disposition: Acute Care Hospital [facility]
[2025-05-19 14:00] LABS: Anion Gap 9 (5-15); BUN 33 mg/dL (4-19); BUN/Creat Ratio 30.8 RATIO (10-20); Calcium,Total 9.5 mg/dL (7.6-11.0); Carbon Dioxide 24.2 mmol/L (21.0-32.0); Chloride 103 mmol/L (98-108); Glucose 90 mg/dL (70-99); Potassium 4.3 mmol/L (3.3-5.1)
[2025-05-19 14:01] LABS: Troponin T High Sensitivity 67 ng/L (<=22)
[2025-05-19] MEDS: Nitroglycerin SL (ED/IMG/CATH) 0.4 MG TABLET SL ×2 (14:11→16:54)
--- NOTE | 2025-05-19 14:20 | RAD_ITS ---
PROCEDURE: CHEST 1 VIEW (PORTABLE) 05/19/2025 REASON FOR EXAM: CHEST PAIN TECHNIQUE: Frontal view of the chest. COMPARISON: Chest radiographs June 29, 2018. FINDINGS: Hardware: EKG lead wires project over the chest. Heart: Heart is upper limits normal in size. Lungs: Clear and expanded. Bones: Lytic or erosive process. Advanced degenerative joint disease involving the left shoulder. RAD/Chest 1 View (Portable) IMPRESSION: No acute process. DJD left shoulder. Reading Location: [facility]
--- OUTSIDE RECORDS SUMMARY | 2025-05-19 14:29 | XMS RPT_ITS | CCD ---
Author Organization [facility] Care Team Providers Care Trade Clerk Name Role Phone EVELYN MADDEN DO Unavailable Unavailable EVELYN MADDEN DO Unavailable Unavailable CLARICE MURILLO Unavailable Unavailable EVELYN MADDEN DO Unavailable Unavailable CLARICE MURILLO Unavailable Unavailable PROVIDER, UNKNOWN Unavailable Unavailable Clarice Murillo MD Primary Care Provider Marianne Balderas RN Unavailable Unavail able Manuel Bravo MD Unavailable [phone] Marianne Balderas RN Unavailable Clarice Murillo MD [...] Clarice Murillo MD Primary Care Provider Tannhof GUN FITTER.BORDER MEASURER, Karla Unavailable Zac GUN FITTER.BORDER MEASURER, Sid Unavailable Tannhof GUN FITTER.BORDER MEASURER, Karla Unavailable Unavail able Chidi FOWLER, Dr. Melo Primary Care Provider [phone] Odilia WILKERSON, Dr. Clark Emergency Provider Josefina FOWLER, Dr. Collins Attending Provider de Cal WILKERSON, Dr. Hewitt Admit Provider Unavail able Doss DO, Dr. Hewitt Other Provider Unavail able Guillermo FOWLER, Dr. Lan Attending Provider Guillermo FOWLER, Dr. Lan Other Provider Tannho GUN FITTER.BORDER MEASURER, Karla Unavailable Chidi FOWLER, Dr. Melo Primary Care Provider Odilia WILKERSON, Dr. Clark Emergency Provider Guillermo FOWLER, Dr. Lan Other Provider Dr. Dennis Rocha MD Attending Provider Chidi FOWLER, Dr. Melo Referring Provider Arturo Naranjo MD Emergency Provider Mahogany WILKERSON, Dr. Bhatt Admit Provider Dr. Miller Vides DO Attending Provider Dr. Clarice Murillo MD Primary Care Provider Dr. Dennis Rocha MD Attending Provider Dr. Miller Vides DO Other Provider Shanice FOWLER, Dr. Jaspal Price Attending Provider Guillermo FOWLER, Dr. Lan Other Provider Dr. Jf Mack DO Other Provider Arvind VEGETABLE BUNCHER-C, Alessia Other Provider Tesfaye VEGETABLE BUNCHER-C, Samaria Other Provider Lauren Curry Other Provider [phone] Shanice FOWLER, Dr. Jaspal Price Other Provider [phone] Friend DO, Dr. Rhoades Attending Provider Kelly Ha Referring Unavailable Kelly Ha Attending Unavailable Elderbrock, Clarice Primary Care Unavailable Guillermo, Riky Attending Unavailable Evelyn Doss Admitting Unavailable Elderbrock, Clarice Primary Care Unavailable Evleyn Doss Consulting Unavailable Guillermo, Riky Consulting Unavailable Miller Vides Admitting Unavailable Miller Vides Attending Unavailable Miller Vides Consulting Unavailable Elderbrock, Clarice Primary Care Unavailable Jaspal Prasad Attending Unavailable Guillermo, Riky Consulting Unavailable Frederick, Jf Consulting Unavailable Alessia Samuels Consulting Unavailable Tesfaye, Samaria Consulting Unavailable Lauren Webber Consulting Unavailable Jaspal Prasad Consulting Unavailable Mahogany, Miller Consulting Unavailable Mahogany, Miller Admitting Unavailable Jaspal Prasad Attending Unavailable Elderbrock, Clarice Primary Care Unavailable Guillermo, Riky Consulting Unavailable Frederick, Jf Consulting Unavailable Arvind, Alessia Consulting Unavailable Tesfaye, Samaria Consulting Unavailable Lauren Webber Consulting Unavailable Guillermo, Riky Attending Unavailable Evelyn Doss Admitting Unavailable Evelyn Doss Consulting Unavailable Elderbrock, Clarice Primary Care Unavailable Dennis Rocha Attending Unavailable ElderbrockClraice Referring Unavailable Elderbrock, Clarice Primary Care Unavailable Jf Mack Attending Unavailable Jaspal Prasad Referring Unavailable Guillermo, Riky Referring Unavailable Elderbrock, Clarice Primary Care Unavailable Dennis Rocha Attending Unavailable Evelyn Doss Attending Unavailable Guillermo, Riky Referring Unavailable Dennis Rocha Attending Unavailable ELDERBROCK, CLARICE D Primary Care Unavailable NEISHA COPE Referring Unavailable ELDERBROCK, CLARICE D Primary Care Unavailable ELDERBROCK, CLARICE D Referring Unavailable VETOFAM, YNES Attending Unavailable ELDERBROCK, CLARICE D Primary Care Unavailable VETOVITZ, YNES Referring Unavailable ELDERBROCK, CLARICE D Primary Care Unavailable LESVIAAGEN, NEISHA Attending Unavailable VASYL WELSH Attending Unavailable ELDERBROCK, CLARICE D Primary Care Unavailable ELDERBROCK, CLARICE D Primary Care Unavailable KARLA CAMPUZANO Referring Unavailabl e ELDERBROCK, CLARICE D Primary Care Unavailable ELDERBROCK, CLARICE Evans Attending Unavailable ELDERBROCK, CLARICE Cristina Primary Care Unavailable ELDERBROCK, CLARICE D Referring Unavailable ELDERBROCK, CLARICE D Primary Care Unavailable TANNHOFKARLA Referring Unavailabl e ELDERBROCK, CLARICE D Primary Care Unavailable HAAGEN, NEISHA Attending Unavailable ELDERBROCK, CLARICE D Primary Care Unavailable HAAGEN, NEISHA Referring Unavailable ELDERBROCK, CLARICE D Primary Care Unavailable YNES SOUZA Attending Unavailable ELDERBROCK, CLARICE D Primary Care Unavailable KARLA CAMPUZANO Attending Unavailabl e ELDERBROCK, CLARICE D Primary Care Unavailable FABIO NORIEGA Attending Unavailable ELDERBROCK, CLARICE Cristina Primary Care Unavailable SELF Referring Unavailable FRANCIA LUNA Attending Unavailable ELDERBROCK, CLARICE Cristina Primary Care Unavailable HAAGEN, NEISHA Referring Unavailable ELDERBROCK, CLARICE D Primary Care Unavailable ELDERTURNERCK, CLARICE D Attending Unavailable JYOTHI MOSLEY Attending Unavailable ELDERBROCK, CLARICE Cristina Primary Care Unavailable ELDERBROCK, CLARICE Cristina Primary Care Unavailable HAAGEN, NEISHA Referring Unavailable ELDERBROCK, CLARICE D Primary Care Unavailable HAAGEN, NEISHA Referring Unavailable ELDERBROCK, CLARICE D Primary Care Unavailable FRANCIA LUNA Attending Unavailable Allergies Allergy Classification Reported Allergen(s) Allergy Type Date of Onset Reaction(s) Facility cerivastatin (1 source) cerivastatin Drug Allergy 3 Other: See Comments [facility] Work Phone: Gemfibrozil (1 source) Gemfibrozil Drug Allergy 6 Other: See Comments [facility] Work Phone: Iodine (and Iodine containting drugs) (1 source) Iodine Drug Allergy 9 Intolerance [facility] Opioid Agonists (1 source) Meperidine Drug Allergy 7 Mental Status Change [facility] (1 source) meperidine Drug Allergy [facility] Repository (20 sources) Gemfibrozil; Translations: [GEMFIBROZIL] Drug Allergy 6 Other: See Comments [facility] Work Phone: (20 sources) Iodine; Translations: [IODINE] Drug Allergy 9 Intolerance [facility] (20 sources) Meperidine; Translations: [MEPERIDINE (PF)] Drug Allergy 7 Mental Status Change [facility] (20 sources) baycolOther] [Other] Propensity to adverse reactions 7 Other: See Comments [facility] Work Phone: (1 source) OTHER; Translations: [OTHER] Propensity to adverse reactions (disorder) 7 [facility] Repository (20 sources) cerivastatin; Translations: [BAYCOL] Drug Allergy 3 Other: See Comments [facility] Repository (4 sources) cerivastatin; Translations: [cerivastatin sodium] Drug Allergy 5 Other [facility] Comment on above: KIDNEY FAILURE (3 sources) Meperidine Drug Allergy 5 Other [facility] (1 source) Gemfibrozil Drug Allergy 5 [facility] Repository (1 source) Meperidine Drug Allergy 5 [facility] Repository Medications Current Medications Medication Drug Class(es) Dates Sig (Normalized) Sig (Original) acetaminophen 500 mg oral tablet (20 sources) Start: 02-01-2023 take 2 tablets by mouth every six hours acetaminophen (TYLENOL) 500 mg tablet Take 2 tablets by mouth every 6 hours. 02/01/2023 Active Comment on above: Take 2 tablets by mo uth every 6 hours. albuterol 0.83 mg/ml inhalation [...] for Wheezing/Shortness of Breath. aspirin 81 mg oral tablet (20 sources) Platelet Aggregation Inhibitor, Nonsteroidal Anti-inflammatory Drug Start: 12-01-19 take 1 capsule by mouth once daily aspirin 81 mg cap Take 1 capsule by mouth once daily. 11/30/2021 Active Comment on above: Take 1 capsule by [facility] once daily. azithromycin 250 mg oral tablet [...] (20 sources) Azole Antifungal, Corticosteroid Start: 07-08-20 23 clotrimazole-betame thasone (LOTRISONE) cream Indications: Tinea pedis [...] TWICE A DAY June 28, 2018 1:00am Breathing Start: 06-28-2018 Budesonide-For moterol 1 INHALER inhaler [...] 2014 8:06am 11/23/2014 Active Start: 11-23-2014 take 5 tablets by mo uth three times daily Cholecalciferol (Vitamin D3) 1,000 UNIT tablet Active 5000 U PO THREE TIMES A DAY November 23, 2014 12:00am Supplement Start: 11-23-2014 take 3 tablets by mo uth three times daily Cholecalciferol (Vitamin D3) 1,000 UNIT tablet Active 3000 U PO THREE TIMES A DAY November 23, 2014 12:00am Supplement Start: 11-23-2014 take 3 tablets by mo uth twice daily Cholecalciferol (Vitamin D3) 1,000 UNIT tablet Active 3000 U PO TWICE A DAY November 23, 2014 12:00am Comment on above: Cholecalciferol (Vit D3) Active 3000 UNIT TWICE A DAY November 23, 2014 8:06am doxycycline hyclate 100 mg oral tablet (5 sources) Tetracycline-class Drug Start: 03-14-20 End: 03-24-20 23 take 1 tablet by mouth twice daily [...] 1 tablet by татьяна th once daily. furosemide 20 mg oral tablet (3 sources) Loop Diuretic Start: 03-27-20 take 1 tablet by mouth once daily furosemide (LASIX) 20 mg tablet Indications: Leg swelling Take 1 tablet by mouth once daily. 3 tablet 03/27/2025 Active gabapentin 600 mg oral tablet (20 sources) Anti-epileptic Agent Start: 01-25-20 End: 01-29-20 25 take 1 tablet by mouth three times [...] 1 capsule by mouth three times daily Gabapentin 100 MG capsule Discontinued 100 mg PO THREE TIMES A DAY June 28, 2018 1:00am November 08, 2024 7:35pm Neruopathy Comment on above: Take 1 capsule by mo uth three times daily. Take 1 capsule by [facility] three times daily for 180 days. Take 1 capsule by [facility] three times a day for 180 days. 12 hr guaiFENesin 600 mg extended release oral tablet (20 sources) Start: 06-15-20 End: 03-27-20 take 2 tablets by mouth twice daily guaiFENesin (MUCINEX) 600 mg 12 hr tablet Take 2 tablets by mouth two times a day. 24 tablet 11/03/2024 Active Comment on above: Take 2 tablets by [facility] twice daily. Take 2 tablets by [facility] twice daily. As needed hydrocortisone 10 mg/ml / neomycin 3.5 mg/ml / polymyxin b [id number] unt/ml otic suspension (20 sources) Aminoglycoside Antibacterial, Polymyxin-class Antibacterial, Corticosteroid Start: 07-08-20 23 neomycin-polymyxin -hydrocortisone (CORTISPORIN) 3.5-10,000-1 mg/mL-unit/mL-% otic suspension Use 4 Drops in the ears four times daily. x 1 week 10 mL 2 07/08/2023 Active Start: 05-29-2021 End: 05-18-2023 [id number] isone (CORTISPORIN) 3.5-10,000-1 mg/mL-unit/mL-% otic suspension Use 4 Drops in the ears four times daily. x 1 week 10 mL 2 05/29/2021 05/18/2023 Discontinued Comment on above: Use 4 Drops in the e ars four times daily. x 1 week latanoprost 0.05 mg/ml ophthalmic solution (3 sources) Prostaglandin Analog Start: 11-09-19 Latanoprost 0.005 % drops Active 1 NMA OPHTHALMIC DAILY November 08, 2024 12:00am glaucoma meclizine hydrochloride 25 mg oral tablet (20 sources) Antiemetic Start: 02-05-20 End: 08-01-19 take 1 tablet by mouth every six hours as needed for dizziness and dizziness meclizine (ANTIVERT) 25 mg tab Indications: Dizziness Take 1 tablet by mouth every 6 hours as needed. FOR DIZZINESS 30 tablet 5 08/01/2024 Active Comment on above: Take 1 tablet by [facility] every 6 hours as needed. FOR DIZZINESS pantoprazole 40 mg delayed release oral tablet (20 sources) Proton Pump Inhibitor Start: 08-21-19 End: 09-07-19 take 1 tablet by mouth once daily before breakfast pantoprazole DR (PROTONIX) 40 mg tablet Indications: GERD without esophagitis Take 1 tablet by mouth daily before breakfast. Take on empty stomach, 1/2 hr before meal. 90 tablet 3 09/07/2024 Active Comment on above: Take 1 tablet by татьяна th daily before breakfast. Take on empty stomach, 1/2 hr before meal. predniSONE 20 mg oral tablet (7 sources) Start: 11-04-19 End: 11-09-19 take 2 tablets by mouth once daily [...] for 5 days. Take 2 tablets by [facility] once daily for 5 days. Take 1 [...] Comment on above: Take 1 capsule by [facility] once daily. tamsulosin hydrochloride 0.4 mg oral capsule (20 sources) alpha-Adrenergic Edward Start: 1 End: 5 take 1 capsule by mouth once daily at bedtime tamsulosin (FLOMAX) 0.4 mg TAKE ONE CAPSULE BY MOUTH ONCE DAILY AT BEDTIME 90 capsule 3 09/07/2024 Active Start: 11-23-2014 take 1 capsule by [facility] at bedtime Tamsulosin 0.4 MG capsule Active 0.4 mg PO AT BEDTIME November 23, 2014 12:00am Prostate Comment on above: TAKE ONE CAPSULE BY MOUTH ONCE DAILY AT BEDTIME Completed/Discontinued Medications Medication Drug Class(es) Dates Sig (Normalized) Sig (Original) acetaminophen 325 mg / HYDROcodone bitartrate 5 mg oral tablet (3 sources) Opioid Agonist Start: 06-27-2020 End: 06-30-2020 Hydrocodone-Acetam inophen 1 EACH tablet Discontinued 1 NMA PO Q8H as needed for Pain Score 6-10 8 3 0 June 27, 2020 June 29, 2020 1:00am June 30, 2020 1:03am Low back pain Low back pain amoxicillin 875 mg / clavulanate 125 mg oral tablet (3 sources) Penicillin-class Antibacterial Start: 11-10-2024 End: 03-10-2025 Amoxicillin-Pot Clavulanate 875-125 mg tablet Discontinued 1 {tbl} PO TWICE A DAY 14 0 November 10, 2024 12:00am March 10, 2025 7:21pm benzonatate 100 mg oral capsule (6 sources) Non-narcotic Antitussive Start: 11-03-2024 End: 03-10-2025 take 2 capsules by mouth three times daily as needed for cough Benzonatate 100 mg capsule Discontinued 200 mg PO THREE TIMES A DAY as needed for cough November 08, 2024 12:00am March 10, 2025 7:21pm betamethasone 3 mg/ml / betamethasone acetate 3 mg/ml injectable suspension (2 sources) Corticosteroid Start: 10-11-2022 End: 10-11-2022 betamethasone acetate-betamethas one sodium phosphate 6 mg injection (CELESTONE) Start: 10-11-2022 End: 10-11-2022 betamethasone acetate-betame thasone sodium phosphate 6 mg injection (CELESTONE) clopidogrel 75 mg oral tablet (3 sources) [id number] Platelet Inhibitor Start: 07-05-2014 End: 04-11-2019 take 1 tablet by mouth once daily Clopidogrel 75 MG tablet Discontinued 75 mg PO DAILY July 05, 2014 1:00am April 11, 2019 10:10am TIA ipratropium bromide 0.2 mg/ml inhalation solution (3 sources) Anticholinergic Start: 11-05-2016 End: 11-08-2024 take 0.5 mg by inhalation every eight hours as needed for wheezing Ipratropium [place] 0.5 MG/2.5 ML solution Discontinued 0.5 mg INHALATION Q8H as needed for Sob &/Or Wheezing November 05, 2016 12:00am November 08, 2024 7:38pm 10 ml lidocaine hydrochloride 10 mg/ml injection (5 sources) Antiarrhythmic, Amide Local Anesthetic Start: 10-11-2022 End: 10-11-2022 lidocaine (PF) 10 mg/mL (1 %) 4 mL injection (XYLOCAINE) Start: 10-11-2022 End: 10-11-2022 lidocaine (PF) 10 mg/mL (1 % ) 4 mL injection (XYLOCAINE) Start: 06-27-2020 End: 06-30-2020 Lidocaine 1 PATCH patch Disc ontinued 2 NMA TOPICAL DAILY 6 3 0 June 27, 2020 1:00am June 29, 2020 1:00am June 30, 2020 1:03am loperamide hydrochloride 2 mg oral capsule (6 sources) Opioid Agonist Start: 06-30-2018 End: 11-10-2024 take 1 capsule by mouth every two hours as needed for diarrhea Loperamide 2 MG capsule Discontinued 2 mg PO Q2H as needed for Diarrhea November 08, 2024 12:00am November 10, 2024 9:41am polyethylene glycol 3350 51648 mg powder for oral solution (3 sources) Osmotic Laxative Start: 11-10-2024 End: 03-10-2025 Polyethylene Glycol 3350 (Miralax) 17 gram/dose powder Discontinued 17 g PO DAILY 510 30 0 November 10, 2024 12:00am March 10, 2025 8:07pm regadenoson 0.4 mg injection (LEXISCAN) (1 source) [...] specified as acute or chronic] 10-07-2023 Episodic Deficiency and other anemia (1 source) Anemia; Translations: [Anemia, unspecified] 03-28-2025 Episodic Deficiency and other anemia (1 source) Anemia, unspecified; Translations: [Anemia, unspecified type] Onset: 5 Episodic Diabetes mellitus without complication (2 sources) Increased glucose level; Translations: [Other abnormal glucose] Onset: 5 08-01-2024 Episodic Disorders of lipid metabolism (20 sources) Hyperlipidemia; Translations: [Hyperlipidemia, unspecified] Onset: 3 06-25-2015 Chronic Diverticulosis and diverticulitis (20 sources) Diverticular disease; Translations: [Diverticulosis of intestine, part unspecified, without perforation or abscess without bleeding] Onset: 5 12-24-2014 Chronic Esophageal disorders (11 sources) Gastroesophageal reflux disease without esophagitis; Translations: [Gastro-esophageal reflux disease without esophagitis] Onset: 5 Chronic Essential hypertension (20 sources) Benign essential hypertension; Translations: [Essential (primary) hypertension] Onset: 3 07-14-2006 Chronic Gastrointestinal hemorrhage (14 sources) Lower gastrointestinal hemorrhage; Translations: [Gastrointestinal hemorrhage, unspecified] Onset: 5 04-20-2019 Episodic Gout and other crystal arthropathies (6 sources) Gout; Translations: [Gout, unspecified] Onset: 5 11-08-2024 Chronic Hyperplasia of prostate (20 sources) Benign prostatic hyperplasia; Translations: [Benign prostatic hyperplasia without lower urinary tract symptoms] Onset: 4 01-01-2014 Chronic Immunizations and screening for infectious disease (3 sources) Needs influenza immunization; Translations: [Encounter for immunization] Onset: 5 Episodic Mycoses (2 sources) Tinea pedis; Translations: [Tinea [...] shoulder] Onset: 5 Chronic Other circulatory disease (5 sources) H/O: hypertension; Translations: [Personal history of other diseases of the circulatory system] 11-08-2024 Episodic Other connective tissue disease (20 sources) History of left total knee replacement; Translations: [Presence of left artificial knee joint] Onset: 3 01-28-2023 Chronic Other connective tissue disease (1 source) Swelling of lower limb; Translations: [Other specified soft tissue disorders] 03-27-2025 Episodic Other connective tissue disease (1 source) Other specified soft tissue disorders; Translations: [Leg swelling] Onset: 5 Episodic Other diseases of kidney and ureters (20 sources) Renal mass; Translations: [Other specified disorders of kidney and ureter] Onset: 6 10-30-2015 Chronic Other lower respiratory disease (1 source) Interstitial lung disease; Translations: [Interstitial pulmonary disease, unspecified] 01-03-2024 Chronic Other lower respiratory disease (4 sources) Multiple nodules of lung; Translations: [Other nonspecific abnormal finding of lung field] Episodic Other lower respiratory disease (3 sources) Other nonspecific abnormal finding of lung field; Translations: [Swelling, mass, or lump in chest] Onset: 5 01-03-2024 Episodic Other lower respiratory disease (1 source) Cough; Translations: [Acute cough] 06-08-2022 Episodic Other nervous system disorders (20 sources) Neuropathy; Translations: [Polyneuropathy, unspecified] Onset: 3 01-28-2023 Chronic Other nervous system disorders (3 sources) Peripheral nerve disease ; Translations: [Polyneuropathy, unspecified] [...] 5 10-11-2022 Episodic Other non-traumatic joint disorders (5 sources) Pain in wrist; Translations: [Pain in left wrist] 11-08-2024 Episodic Other non-traumatic joint disorders (7 sources) Swelling of wrist joint; Translations: [Effusion, left wrist] 11-08-2024 Episodic Other non-traumatic joint disorders (1 source) Pain in left shoulder; Translations: [Chronic pain of both shoulders] Onset: 5 Episodic Other nutritional; endocrine; and metabolic disorders (20 sources) Hypomagnesemia; Translations: [Hypomagnesemia] Onset: 3 02-01-2023 Chronic Other nutritional; endocrine; and metabolic disorders (20 sources) High density lipoprotein above reference range; Translations: [Other lipoprotein metabolism disorders] Onset: 3 03-08-2023 Chronic Other nutritional; endocrine; and metabolic disorders (1 source) Hypomagnesemia; Translations: [Hypomagnesemia] Onset: 3 Chronic Other nutritional; endocrine; and metabolic disorders (5 sources) Body mass index 25-29 - overweight; Translations: [Overweight] 11-08-2024 Episodic Other screening for suspected conditions (not mental disorders or infectious disease) (7 sources) Encounter for screening for cardiovascular disorders; [...] unspecified reason] 03-01-2023 Episodic Residual codes; unclassified (3 sources) Altered mental status; Translations: [Altered mental status, unspecified] 04-20-2019 Episodic Residual codes; unclassified (1 source) Edema of foot; Translations: [Localized edema] 02-05-2025 Episodic Residual codes; unclassified (1 source) Localized edema; Translations: [Pedal edema] Onset: 5 Episodic Screening and history of mental health and substance abuse codes (11 sources) Ex-cigarette smoker; Translations: [Personal history of nicotine dependence] Onset: 5 Episodic Spondylosis; intervertebral disc disorders; other back problems (20 sources) Lumbar spondylosis; Translations: [Spondylosis without myelopathy or radiculopathy, lumbar region] Onset: 4 01-01-2014 Chronic Spondylosis; intervertebral disc disorders; other back problems (3 sources) Low back pain; Translations: [Low back pain] 06-28-2020 Episodic Transient cerebral ischemia (20 sources) Vertebrobasilar artery syndrome; 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 Unclassified (1 source) NEW PATIENT APPOINTMENT WITH SAMARIA CARLIN N.P. Unclassified (1 source) Abdominal aortic aneurysm (AAA) [...] [Dizziness and giddiness] Onset: 5 08-01-2024 Episodic Fluid and electrolyte disorders (6 sources) Dehydration; Translations: [Dehydration] Onset: 5 11-08-2024 Episodic Genitourinary symptoms and ill-defined conditions (20 sources) Lower urinary tract symptoms; Translations: [Unspecified symptoms and signs involving the genitourinary system] Onset: 5 10-29-2014 Episodic Nausea and vomiting (20 sources) Nausea; [...] pulmonary nodule] Onset: 6 01-28-2023 Episodic Other non-traumatic joint disorders (3 sources) Effusion, left wrist; Translations: [Effusion, left wrist] Onset: 5 Episodic Other non-traumatic joint disorders (1 source) Pain in left wrist; Translations: [Pain in left wrist] Onset: 5 Episodic Other nutritional; endocrine; and metabolic disorders (1 source) Overweight; Translations: [Overweight] Onset: 5 Episodic Other upper respiratory infections (2 sources) Upper respiratory infection; Translations: [Acute upper respiratory infection, unspecified] Onset: 5 11-03-2024 Episodic Skin and subcutaneous tissue infections (7 sources) Cellulitis; Translations: [Cellulitis, unspecified] Onset: 5 11-08-2024 Episodic Results Test Name Value Interpretation Reference Range Facility [facility] 04-26-2025 CNOV Office Visit ([id number] ) PACO WHITNEY ([id number]) 1935 M Date Time Provider Department 04/26/25 10:20 AM CLARICE MURILLO During your visit today, we recorded the following information about you: Pulse Respiration Blood pressure Weight 84/minute 14/minute 120/56 82.9 kg Height 1.778 m Clarice Murillo MD 04/26/2025 11:47 AM Signed Chief Complaint Follow up leg swelling Recording using [email or web address] software for draft documentation of the visit was discussed with the patient/authorized quality control representative; all questions welcomed and answered. Patient/authorized quality control representative agreed to proceed HPI Paco is a 89-year-old male with a history of mitral valve prolapse, aortic dilation, and COPD, presenting for follow-up on recent echocardiogram results and management of lower extremity edema. Paco reports significant lower extremity edema, which has improved since starting Lasix every other day. Initially, he took Lasix daily for a few days before transitioning to the current regimen. He notes that the edema was severe, describing it as swelled up like crazy, but now observes that his left leg is almost back to normal, while the other still has some residual swelling. He denies dyspnea, and attributes any occasional shortness of breath to his COPD. He also denies any new symptoms related to his mitral valve prolapse or aortic dilation. Paco received a cortisone injection in his knee yesterday, which provided partial relief. He mentions that his knee is worn out, similar to his shoulder. He is also taking a magnesium supplement but admits to occasionally forgetting to take it. He previously discontinued a different magnesium supplement due to gastrointestinal discomfort but reports no issues with the current one. Paco had an echocardiogram yesterday, and he inquires about the results. He recalls being told that his aorta was slightly dilated 15 years ago and wonders if there has been any change. He also mentions a past episode of carotid artery evaluation, which ultimately showed no significant issues. Past medical history, appointments, medications, allergies reviewed. [...] W/COLLJ SPEC WHEN PFRMD 09/19/2011 [facility] ENDOVASCULAR ANEURYSM REPAIR 01/2013 with bi-liac [...] on File Prior to Visit Medication Sig magnesium oxide (MAGOX) 400 mg (241.3 mg magnesium) tablet Take 1 tablet by mouth once daily. furosemide (LASIX) 20 mg tablet Take daily X 3 days; then take one tablet every other day. ramipril (ALTACE) 10 mg capsule Take 1 capsule by mouth once daily. albuterol (PROVENTIL) 2.5 mg /3 mL (0.083 %) nebulizer solution Use 3 mL via nebulizer every 4 hours as needed for wheezing/shortne (more content not included)... Normal [facility] ECHOon 04-25-2025 Echocardiography Echocardiography Rep ort: Transthoracic Echo [facility] Date of service: 04/25/2025 12:56:45 PM GAME ADVISOR Ordering physician: NEISHA COPE Exam indication: Abnormal ECG Technologist: Whit Gallegos [facility] Interpreting physician: Shree Pereira MD PATIENT: Name: MR. PACO WHITNEY : 1935 Age: 89 years Gender: M History of hypertension and dyslipidemia. Primary rhythm: sinus. Secondary rhythm: LBBB. Height: 177.80 cm BSA: 2.06 m Weight: 85.73 kg BMI: 27.1 kg/m Heart rate 80 bpm Technically difficult exam due to suboptimal positioning and body habitus. Color Doppler was utilized to interrogate the cardiac valves assessed and spectral Doppler was utilized to determine the flow velocities and pressure gradients reported in this exam. MEASUREMENTS: Value Indexed Normal Max aortic dimension 4.3 cm Ao < 3.8 Left atrial volume 37 ml (4ch A-L) 18 ml/m Tyler <= 34 LV ID (diastole) 4.8 cm (2D) 2.35 cm/m LV ID (systole) 3.3 cm (2D) 1.61 cm/m IVS, leaflet tips 1.1 cm (2D) Posterior wall thickness 1.1 cm (2D) Left ventricular mass 198 g (2D) 96 g/m LV stroke volume 51 ml (2D biplane) LV end diastolic volume 100 ml (2D biplane) 48.5 ml/m 34<=EDVi<75 LV end systolic volume 48 ml (2D biplane) 23.5 ml/m Ejection Fraction 52 % (2D biplane) EF > 52 FINDINGS: LEFT VENTRICLE The left ventricle is normal in size. Left ventricular systolic function is mildly decreased. Grade I left ventricular diastolic dysfunction. Mitral annular lateral E/e': 7.8. Mitral annular septal E/e': 11.7. Wall Motion: All scored segments are normal. RIGHT VENTRICLE The right ventricle is normal in size. Right ventricular systolic function is normal. RV systolic tissue Doppler velocity is 10.0 cm/s. Estimated right ventricular systolic pressure is not reported due to an insufficient tricuspid regurgitation signal. Estimated right atrial pressure is 3 mmHg (although IVC not seen). LEFT ATRIUM The left atrial cavity is normal in size. RIGHT ATRIUM Unable to reliably measure RA volume due to technical limitations. Inferior Vena Cava: The inferior vena cava appears normal measuring 1.40 cm. MITRAL VALVE The mitral valve leaflets are structurally normal. There is mild (1+) mitral valve regurgitation. The pressure half time is 38 msec. The peak mitral E/A ratio is 0.61. The average mitral E/e' ratio is 9.8. The mitral flow deceleration time is 132 msec. TRICUSPID VALVE The tricuspid valve leaflets are structurally normal. There is trace tricuspid valve regurgitation. AORTIC VALVE The aortic valve cusps are structurally normal. There is no aortic valve regurgitation. Tricuspid aortic valve. There is mild thickening. The peak gradient is 3 mmHg (peak velocity = 88.0 cm/s). PULMONIC VALVE The pulmonic valve cusps are structurally normal. There is no pulmonic valve regurgitation. AORTA The visualized aorta is dilated. Measurements - Aortic valve annulus 2.3 cm. Mid ascending aorta 4.0 cm. Distal ascending aorta 4.3 cm. INTERATRIAL SEPTUM There is no evidence of intracardiac shunting as detected by Doppler. PERICARDIUM There is no pericardial effusion. There is an epicardial fat pad. CONCLUSIONS: - Technically difficult exam due to suboptimal positioning and body habitus. - Exam indication: Abnormal ECG - The left ventricle is normal in size. Left ventricular systolic function is mildly decreased. EF = 52 5% (2D biplane) Grade I left ventricular diastolic dysfunction. - The right ventricle is normal in size. Right ventricular systolic function is normal. - There are no significant valvular abnormalities. - The visualized aorta is dilated with a maximal dimension of 4.3 cm. - The patient has not had a prior CC echocardiographic exam for comparison. * * * Final * * * CC [employer] : [id number] Normal [facility] Magnesium SerPl-mCncon 04-25 Magnesium [Mass/Vol] 1.6 mg/dL Low 1.7-2.3 [facility] Comment on above: Order Comment: Speci men Type: BLOOD SPECIMEN Ordering Facility: [facility] Address: [address] [place] [address] Performed By: #### 5 5454-3 #### [facility] CLIA [id number] [address] [place] [address] OF [facility] CNOVon 04-22-2025 CNOV Office Visit ([facility] ) PACO WHITNEY ([id number]) 1935 M Date Time Provider Department 04/22/25 1:30 PM YNES SOUZA During your visit today, we recorded the following information about you: Samaria Hale MA 04/22/2025 1:38 PM Signed AMB ROOMING INTAKE FLOWSHEET DATA Pain Pain Level: 8 Pain Location: Knee-Right Description: Sharp Duration Amount of Time: 2 Duration Units: Years Frequency: Continuous Intervention/Comfort measure: Medication Ynes Souza PA-C 04/22/2025 1:38 PM Signed Large Joint Arthro/Inj: R knee joint 04/22/2025 1:38 PM The procedure site was prepped in the usual sterile fashion. Site: R knee joint Medications: 6 mg betamethasone acetate-betamethasone sodium phosphate 6 mg/mL Anesthetics: 5 mL lidocaine (PF) 10 mg/mL (1 %) Outcome: Tolerated well, no immediate complications Post-injection instructions were reviewed with the patient and the patient voiced understanding of these instructions. Informed Consent Consent Obtained: Verbal [place] Protocol A moment to CARE was completed. [...] procedure. Correct side/site marked and visible. Medications required for procedure verified. No fire risk assessment and interventions applicable. No implant(s) inserted. SIGN OUT No specimen collected. All instruments, equipment, possible retained foreign bodies accounted for. No post-procedure POC communication to the patient's multidisciplinary team (including the bedside nurse for hospitalized patients) applicable. Allergies As of Date: 04/22/2025 Noted Allergy Reaction DEMEROL (MEPERIDINE (PF)) 11/18/2016 1 - Mental Status Change Comments: Gave too high of dose BAYCOL 02/01/2023 14 - Other: See Comments Comments: Rhabdoymyolysis CONTRAST DYE (IODINE) 06/28/2019 5 - Intolerance Comments: pt needs to be oral hydrated after injection,..patient STATES HE IS NOT ALLERGIC TO IV DYE.. LOPID (GEMFIBROZIL) 07/14/2006 14 - Other: See Comments Comments: Myalgia. Date Reviewed: 04/22/2025 Reviewed by: Samaria Hale MA - Fully Assessed Primary Visit Diagnosis:Primary osteoarthritis of right knee [M17.11] Order(s):Large Joint Arthro/Inj: R knee joint [HHH242] Order #: [id number] [] betamethasone acetate-betamethasone sodium phosphate 6 mg injection (CELESTONE)Disp: Rfl: [] lidocaine (PF) 10 mg/mL (1 %) 5 mL injection (XYLOCAINE)Disp: Rfl: Prescriptions as of 04/22/2025 - magnesium oxide (MAGOX) 400 mg (241.3 mg magnesium) tablet Take 1 tablet by mouth once daily. - furosemide (LASIX) 20 mg tablet Take daily X 3 days; then take one tablet every other day. - ramipril (ALTACE) 10 mg capsule Take 1 capsule by mouth once daily. - albuterol (PROVENTIL) 2.5 mg /3 mL [...] 1 tablet by mouth once daily. - ofusxnuo-uzlobkzbr-kydecrzcw isone (CORTISPORIN) 3.5-10,000-1 mg/mL-unit/mL-% otic suspension Use 4 Drops in the ears four times daily. x 1 week - clotrimazole-betamethasone (LOTRISONE) cream Apply 1 application to affected area two times a day. As needed - acetaminophen (TYLENOL) 500 mg [...] mg daily Problem List As Of Date 04/22/2025 Noted Resolved COPD (chronic obstructive pulmonary disease) (H* Asthma [J45.909] Primary hypertension [I10] Hyperlipidemia [E78.5] Vitamin D deficiency (more content not included)... Normal [facility] CBC W Auto Differential pane l (Bld)on 04-10-2025 Basophils (Bld) [#/Vol] 0.07 10*3/uL Normal <0.11 [facility] Comment on above: Order Comment: Speci men Type: BLOOD SPECIMENOrdering Facility: [facility] Address: [address] [place] [address] Performed By: #### 5 7021-8 ####[facility] [id number] [address], [place] [address] [place] Basophils/100 WBC (Bld) 1.0 % Normal [facility] Comment on above: Order Comment: Speci men Type: BLOOD SPECIMENOrdering Facility: [facility] Address: [address] [place] [address] Performed By: #### 5 7021-8 ####[facility]IA [id number] [address], [place] [address] [place] Differential cell count method Nom (Bld) Auto Normal [facility] Comment on above: Order Comment: Speci men Type: BLOOD SPECIMENOrdering Facility: [facility] Address: [address] [place] [address] Performed By: #### 5 7021-8 ####[facility]IA [id number] [address], [place] [address] [place] Eosinophils (Bld) [#/Vol] 0.12 10*3/uL Normal <0.46 [facility] Comment on above: Order Comment: Speci men Type: BLOOD SPECIMENOrdering Facility: [facility] Address: [address] [place] [address] Performed By: #### 5 7021-8 ####[facility]CLIA [id number] [address], [facility] [place] Eosinophils/100 WBC (Bld) 1.7 % Normal [facility] Comment on above: Order Comment: Speci men Type: BLOOD SPECIMENOrdering Facility: [facility] Address: [address] [place] [address] Performed By: #### 5 7021-8 ####[facility]IA [id number] [address], [facility] [place] Erythrocyte distribution width (RBC) [Ratio] 15.2 % High 11.5-15.0 [facility] Comment on above: Order Comment: Speci men Type: BLOOD SPECIMENOrdering Facility: [facility] Address: [address] [place] [address] Performed By: #### 5 7021-8 ####[facility]CLIA [id number] [place] [address] [place] Hematocrit (Bld) [Volume fraction] 39.1 % Normal 39.0-51.0 [facility] Comment on above: Order Comment: Speci men Type: BLOOD SPECIMENOrdering Facility: [facility] Address: [address] [place] [address] Performed By: #### 5 7021-8 ####[facility]IA [id number] [place] [address] [place] Hemoglobin (Bld) [Mass/Vol] 12.9 g/dL Low 13.0-17.0 [facility] Comment on above: Order Comment: Speci men Type: BLOOD SPECIMENOrdering Facility: [facility] Address: [address] [place] [address] Performed By: #### 5 7021-8 ####[facility]IA [id number] [place] [address] [place] Immature granulocytes (Bld) [#/Vol] 10*3/uL Normal <0.10 [facility] Comment on above: Order Comment: Speci men Type: BLOOD SPECIMENOrdering Facility: [facility] Address: [address] [place] [address] Performed By: #### 5 7021-8 ####[facility]IA [id number] [place] [address] [place] Immature granulocytes/100 WBC (Bld) 0.1 % Normal [facility] Comment on above: Order Comment: Speci men Type: BLOOD SPECIMENOrdering Facility: [facility] Address: [address] [place] [address] Performed By: #### 5 7021-8 ####[facility]CLIA [id number] [place] [address] [place] Lymphocytes (Bld) [#/Vol] 1.98 10*3/uL Normal 1.00-4.00 [facility] Comment on above: Order Comment: Speci men Type: BLOOD SPECIMENOrdering Facility: [facility] Address: [address] [place] [address] Performed By: #### 5 7021-8 ####[facility]CLIA [id number] [place] [address] [place] Lymphocytes/100 WBC (Bld) 27.7 % Normal [facility] Comment on above: Order Comment: Speci men Type: BLOOD SPECIMENOrdering Facility: [facility] Address: [address] [place] [address] Performed By: #### 5 7021-8 ####[facility]CLIA [id number] [place] [address] [place] MCH (RBC) [Entitic mass] 32.4 pg Normal 26.0-34.0 [facility] Comment on above: Order Comment: Speci men Type: BLOOD SPECIMENOrdering Facility: [facility] Address: [address] [place] [address] Performed By: #### 5 7021-8 ####[facility]CLIA [id number] [place] [id number] [place] MCHC (RBC) [Mass/Vol] 33.0 g/dL Normal 30.5-36.0 [facility] Comment on above: Order Comment: Speci men Type: BLOOD SPECIMENOrdering Facility: [facility] Address: [address] [place] [address] Performed By: #### 5 7021-8 ####[facility]CLIA [id number] [place] [address] [place] MCV (RBC) [Entitic vol] 98.2 fL Normal 80.0-100.0 [facility] Comment on above: Order Comment: Speci men Type: BLOOD SPECIMENOrdering Facility: [facility] Address: [address] [place] [address] Performed By: #### 5 7021-8 ####[facility]IA [id number] [place] [address] [place] Monocytes (Bld) [#/Vol] 0.74 10*3/uL Normal <0.87 [facility] Comment on above: Order Comment: Speci men Type: BLOOD SPECIMENOrdering Facility: [facility] Address: [address] [place] [address] Performed By: #### 5 7021-8 ####[facility]CLIA [id number] [place] [address] [place] Monocytes/100 WBC (Bld) 10.3 % Normal [facility] Comment on above: Order Comment: Speci men Type: BLOOD SPECIMENOrdering Facility: [facility] Address: [address] [place] [address] Performed By: #### 5 7021-8 ####[facility]CLIA [id number] [place] [address] [place] Neutrophils (Bld) [#/Vol] 4.23 10*3/uL Normal 1.45-7.50 [facility] Comment on above: Order Comment: Speci men Type: BLOOD SPECIMENOrdering Facility: [facility] Address: [address] [place] [address] Performed By: #### 5 7021-8 ####[facility]CLIA [id number] [place] [id number] [place] Neutrophils/100 WBC (Bld) 59.2 % Normal [facility] Comment on above: Order Comment: Speci men Type: BLOOD SPECIMENOrdering Facility: [facility] Address: [address] [place] [address] Performed By: #### 5 7021-8 ####[facility]CLIA [id number] [place] [address] [place] Nucleated RBC (Bld) [#/Vol] 10*3/uL Normal <0.01 [facility] Comment on above: Order Comment: Speci men Type: BLOOD SPECIMENOrdering Facility: [facility] Address: [address] [place] [address] Performed By: #### 5 7021-8 ####[facility]CLIA [id number] [place] [address] [place] Nucleated RBC/100 WBC (Bld) [Ratio] 0.0 /100 WBC Normal [facility] Comment on above: Order Comment: Speci men Type: BLOOD SPECIMENOrdering Facility: [facility] Address: [address] [place] [address] Performed By: #### 5 7021-8 ####[facility]IA [id number] [place] [address] [place] Platelet mean volume (Bld) [Entitic vol] 10.1 fL Normal 9.0-12.7 [facility] Comment on above: Order Comment: Speci men Type: BLOOD SPECIMENOrdering Facility: [facility] Address: [address] [place] [address] Performed By: #### 5 7021-8 ####[facility]IA [id number] [place] [address] [place] Platelets (Bld) [#/Vol] 216 10*3/uL Normal 150-400 [facility] Comment on above: Order Comment: Speci men Type: BLOOD SPECIMENOrdering Facility: [facility] Address: [address] [place] [address] Performed By: #### 5 7021-8 ####[facility]CLIA [id number] [place] [address] [place] RBC (Bld) [#/Vol] 3.98 10*6/uL Low 4.20-6.00 [facility] Comment on above: Order Comment: Speci men Type: BLOOD SPECIMENOrdering Facility: [facility] Address: [address] [place] [address] Performed By: #### 5 7021-8 ####[facility]CLIA [id number] [place] [address] [place] WBC (Bld) [#/Vol] 7.15 10*3/uL Normal 3.70-11.00 [facility] Comment on above: Order Comment: Speci men Type: BLOOD SPECIMENOrdering Facility: [facility] Address: [address] [place] [address] Performed By: #### 5 7021-8 ####[facility]CLIA [id number] [address] [place] CNOVon 04-10-2025 [facility]O WHITNEY ([id number]) 1935 M Date Time Provider Department 04/10/25 11:40 AM [facility] During your visit today, we recorded the following information about you: Pulse Respiration Blood pressure Weight 80/minute 16/minute 104/62 85.7 kg Neisah Cope APRN.BORDER MEASURER 04/10/2025 12:15 PM Signed Get the labwork. Schedule the echocardiogram. Repeat the lasix -- one pill by mouth daily X 3 days; then continue by taking it every other day. Prop legs. Watch sodium. Recheck in 2 weeks. How to limit salt (sodium) to avoid swelling and hypertension: Keep your daily sodium intake to 2 3 4 grams Keep your daily sodium intake to 2000 3000 4000 mg DO: Read labels Keep a food diary for the first week of restriction - must include snacks! Bake or broil your foods DO NOT DRINK: V8 juice Tomato juice Canned soups DO NOT EAT: Canned food Tomato Sauce Barbecue Sauce Soy Sauce Pickles Prepared meats such as salami, corned beef, etc. Fettuccine [place] con carne Beef burrito Potato salad Cottage cheese (both regular and low fat are high in sodium) [place] Two-egg omelet, ham and cheese Chop suey (not even homemade!) Macaroni and cheese (not even homemade!) Cheeseburger Fish Sticks TIPS: Plain Siler breast is OK as sandwich meat Look for low salt soups in the grocery store- usually a bit more expensive. Neisha Cope APRN.Neisha Argueta APRN.CNP 04/10/2025 1:04 PM Signed This is a 89 year old male who presents today with: The patient is an 89-year-old male with CHF and COPD, presenting for evaluation of lower extremity edema. HISTORY OF PRESENT ILLNESS: Edema: - Generalized LE edema x1.5 months, initially starting in the right leg. - Paco describes sensation in legs as like there's a hole and jelly between the skin and the muscle. - Recent episode of right arm swelling after resting arm on 's chair. Did a 3-day trial of lasix. Pt reports no improvement. However, noted that there was a 5# weight loss between 03/27 and 04/02. - Paco denies dyspnea, chest pain, or palpitations. - Paco is unable to wear most shoes due to swelling; only one pair fits. - Paco is unable to wear compression socks due to difficulty putting them on. - Paco elevates feet daily in an easy chair. - Paco admits to high salt intake. - Paco denies cold sensation in feet. Concerned about possible CHF. - Last echocardiogram was a long time ago. - Paco no longer sees a hair or beauty salon assistant; distrusts previous cardiologists due to past medication issues. - History of mitral valve prolapse and calcification. PAST MEDICAL HISTORY: PAST MEDICAL HISTORY Diagnosis [...] W/COLLJ SPEC WHEN PFRMD 09/19/2011 [facility]oscopy [facility] ENDOVASCULAR ANEURYSM REPAIR 01/2013 with bi-liac [...] [Gemfibrozil] MEDICATIONS Current Outpatient Medications Medication Sig furosemide (LASIX) 20 mg tablet Take daily X 3 days; then take one tablet every other day. ramipril (ALTACE) 10 mg capsule Take 1 [...] as instructed two times a day. pantoprazole (more content not included)... Normal [facility] Comprehensive metabolic 2000 panelon 04-10-2025 Albumin [Mass/Vol] 3.6 g/dL Low 3.9-4.[address] [facility] Comment on above: Order Comment: Speci men Type: BLOOD SPECIMEN [facility] Address: [address] [place] [address] Performed By: #### 5 5454-3 #### [facility] CLIA [id number] [address] [place] [address] [place] ALP [Catalytic activity/Vol] 95 U/L Normal 38-113 [facility] Comment on above: Order Comment: Speci men Type: BLOOD SPECIMEN Ordering Facility: [facility] Address: [address] [place] [address] Performed By: #### 5 5454-3 #### [facility] CLIA [id number] [address] [place] [address] [place] ALT [Catalytic activity/Vol] 19 U/L Normal 10-54 [facility] Comment on above: Order Comment: Speci men Type: BLOOD SPECIMEN Ordering Facility: [facility] Address: [address] [place] [address] Performed By: #### 5 5454-3 #### [facility] CLIA [id number] [address] [place] [address] [place] Anion gap [Moles/Vol] 12 mmol/L Normal 8-15 [facility] Comment on above: Order Comment: Speci men Type: BLOOD SPECIMEN Order[facility] Facility: [facility] Address: [address] [place] [address] Performed By: #### 5 5454-3 #### [facility] CLIA [id number] [address] [place] [address] [place] AST [Catalytic activity/Vol] 36 U/L Normal 14-40 [facility] Comment on above: Order Comment: Speci men Type: BLOOD SPECIMEN Order[facility] Facility: [facility] Address: [address] [place] [address] Performed By: #### 5 5454-3 #### [facility] CLIA [id number] [address] [place] [address] [place] Bilirubin [Mass/Vol] 0.8 mg/dL Normal 0.2-1.3 [facility] Comment on above: Order Comment: Speci men Type: BLOOD SPECIMEN Ordering Facility: [facility] Address: [address] [place], [place] [address] Performed By: #### 5 5454-3 #### [facility] CLIA [id number] [address] [place], [place] [address] [place] Calcium [Mass/Vol] 9.4 mg/dL Normal 8.5-10.[address] [facility] Comment on above: Order Comment: Speci men Type: BLOOD SPECIMEN Ordering Facility: [facility] Address: [address] [place] [address] Performed By: #### 5 5454-3 #### [facility] CLIA [id number] [address] [place], [place] [address] [place] Chloride [Moles/Vol] 107 mmol/L Normal 98-107 [facility] Comment on above: Order Comment: Speci men Type: BLOOD SPECIMEN Ordering Facility: [facility] Address: [address] [place], [place] [address] Performed By: #### 5 5454-3 #### [facility] CLIA [id number] [address] [place], [place] [address] [place] CO2 [Moles/Vol] 21 mmol/L Low 22-30 [facility] Comment on above: Order Comment: Speci men Type: BLOOD SPECIMEN Ordering Facility: [facility] Address: [address] [place], [place] [address] Performed By: #### 5 5454-3 #### [facility] CLIA [id number] [address] [place], [place] [address] [place] Creatinine [Mass/Vol] 1.01 mg/dL Normal 0.73-1.22 [facility] Comment on above: Order Comment: Zach vinson Type: BLOOD SPECIMEN Ordering Facility: [facility] Address: [address] [place] [address] Performed By: #### 5 5454-3 #### [facility] CLIA [id number] [address] [place] [address] [place] eGFRcr SerPlBld CKD-EPI 2020 72 mL/min/1.73m??? Normal >=60 [facility] Comment on above: Order Comment: Zach vinson Type: BLOOD SPECIMEN Ordering Facility: [facility] Address: [address] [place] [address] Result Comment: Toya mated Glomerular Filtration Rate [...] accurately reflect actual GFR. Performed By: #### 5 5454-3 #### [facility] CLIA [id number] [address] [place] [address] [place] Glucose [Mass/Vol] 89 mg/dL Normal 74-[address] [facility] Comment on above: Order Comment: Zach vinson Type: BLOOD SPECIMEN Ordering Facility: [facility] Address: [address] [place] [address] Result Comment: The [employer] Diabetes Association (ADA) provides guidance for cutoff [...] Standards of Medical Care in Diabetes 2016, [employer] Diabetes Association. Diabetes Care. 2016.39(Suppl 1). Performed By: #### 5 5454-3 #### [facility] CLIA [id number] [address] [place] [address] [place] Potassium [Moles/Vol] 4.8 mmol/L Normal 3.7-5.1 [facility] Comment on above: Order Comment: Speci men Type: BLOOD SPECIMEN Ordering Facility: [facility] Address: [address] [place] [address] Performed By: #### 5 5454-3 #### [facility] CLIA [id number] [address] [place] [address] [place] Protein [Mass/Vol] 6.2 g/dL Low 6.3-8.[address] [facility] Comment on above: Order Comment: Speci men Type: BLOOD SPECIMEN Ordering Facility: [facility] Address: [address] [place] [address] Performed By: #### 5 5454-3 #### [facility] CLIA [id number] [address] [place] [address] [place] Sodium [Moles/Vol] 140 mmol/L Normal 136-[address] [facility] Comment on above: Order Comment: Speci men Type: BLOOD SPECIMEN Ordering Facility: [facility] Address: [address] [place] [address] Performed By: #### 5 5454-3 #### [facility] CLIA [id number] [address] [place], [place] [address] [place] Urea nitrogen [Mass/Vol] 24 mg/dL Normal 9-24 [facility] Comment on above: Order Comment: Speci men Type: BLOOD SPECIMEN Ordering Facility: [facility] Address: [address] [place] [address] Performed By: #### 5 5454-3 #### [facility] CLIA [id number] [address] [place], [place] [address] [place] Magnesium SerPl-mCncon 09-24 -2025 Magnesium [Mass/Vol] 1.6 mg/dL Low 1.7-2.3 [facility] Comment on above: Order Comment: Speci men Type: BLOOD SPECIMEN Ordering Facility: [facility] Address: [address] [place] [address] Performed By: #### 5 5454-3 #### [facility] CLIA [id number] [address] [place] [address] [place] NT-proBNP SerPl-mCncon 04-10 Natriuretic peptide.B prohormone N-Terminal [Mass/Vol] 601 pg/mL High <450 [facility] Comment on above: Order Comment: Speci men Type: BLOOD SPECIMEN Ordering Facility: [facility] Address: [address] [place] [address] Performed By: #### 5 5454-3 #### [facility] CLIA [id number] [address] [place] [address] [place] TSH SerPl-aCncon 04-10-2025 TSH Qn 2.520 m[IU]/L Normal 0.270-4.20 0 [facility] Comment on above: Order Comment: Speci men Type: BLOOD SPECIMEN Ordering Facility: [facility] Address: [address] [place] [address] Performed By: #### 5 5454-3 #### [facility] CLIA [id number] [address] [place] [address] [place] CBC W Auto Differential pane l (Bld)on 04-08-2025 Basophils (Bld) [#/Vol] 0.08 10*3/uL Normal <0.11 [facility] Comment on above: Order Comment: Speci men Type: BLOOD SPECIMEN Ordering Facility: [facility] Address: [address] [place] [address] Performed By: #### 5 7021-8 #### [facility] CLIA [id number] [address] [place] [address] [place] Basophils/100 WBC (Bld) 1.2 % Normal [facility] Comment on above: Order Comment: Speci men Type: BLOOD SPECIMEN Ordering Facility: [facility] Address: [address] [place] [address] Performed By: #### 5 7021-8 #### [facility] CLIA [id number] [address] [place] [address] [place] Differential cell count method Nom (Bld) Auto Normal [facility] Comment on above: Order Comment: Speci men Type: BLOOD SPECIMEN Ordering Facility: [facility] Address: [address] [place] [address] Performed By: #### 5 7021-8 #### [facility] CLIA [id number] [address] [place] [address] [place] Eosinophils (Bld) [#/Vol] 0.12 10*3/uL Normal <0.46 [facility] Comment on above: Order Comment: Speci men Type: BLOOD SPECIMEN Ordering Facility: [facility] Address: [address] [place] [address] Performed By: #### 5 7021-8 #### [facility] CLIA [id number] [address] [place] [address] [place] Eosinophils/100 WBC (Bld) 1.8 % Normal [facility] Comment on above: Order Comment: Speci men Type: BLOOD SPECIMEN Ordering Facility: [facility] Address: [address] [place] [address] Performed By: #### 5 7021-8 #### [facility] CLIA [id number] [address] [place] [address] [place] Erythrocyte distribution width (RBC) [Ratio] 15.5 % High 11.5-15.0 [facility] Comment on above: Order Comment: Speci men Type: BLOOD SPECIMEN Ordering Facility: [facility] Address: [address] [place] [address] Performed By: #### 5 7021-8 #### [facility] CLIA [id number] [address] [place] [address] [place] Hematocrit (Bld) [Volume fraction] 37.8 % Low 39.0-51.0 [facility] Comment on above: Order Comment: Speci men Type: BLOOD SPECIMEN Ordering Facility: [facility] Address: [address] [place] [address] Performed By: #### 5 7021-8 #### [facility] CLIA [id number] [address] [place] [address] [place] Hemoglobin (Bld) [Mass/Vol] 12.3 g/dL Low 13.0-17.0 [facility] Comment on above: Order Comment: Speci men Type: BLOOD SPECIMEN Ordering Facility: [facility] Address: [address] [place] [address] Performed By: #### 5 7021-8 #### [facility] CLIA [id number] [address] [place] [address] [place] Immature granulocytes (Bld) [#/Vol] 10*3/uL Normal <0.10 [facility] Comment on above: Order Comment: Speci men Type: BLOOD SPECIMEN Ordering Facility: [facility] Address: [address] [place] [address] Performed By: #### 5 7021-8 #### [facility] CLIA [id number] [address] [place] [address] [place] Immature granulocytes/100 WBC (Bld) 0.1 % Normal [facility] Comment on above: Order Comment: Speci men Type: BLOOD SPECIMEN Ordering Facility: [facility] Address: [address] [place] [address] Performed By: #### 5 7021-8 #### [facility] CLIA [id number] [address] [place] [address] [place] Lymphocytes (Bld) [#/Vol] 1.59 10*3/uL Normal 1.00-4.00 [facility] Comment on above: Order Comment: Speci men Type: BLOOD SPECIMEN Ordering Facility: [facility] Address: [address] [place] [address] Performed By: #### 5 7021-8 #### [facility] CLIA [id number] [address] [place] [address] [place] Lymphocytes/100 WBC (Bld) 23.8 % Normal [facility] Comment on above: Order Comment: Speci men Type: BLOOD SPECIMEN Ordering Facility: [facility] Address: [address] [place] [address] Performed By: #### 5 7021-8 #### [facility] CLIA [id number] [address] [place] [address] [place] MCH (RBC) [Entitic mass] 31.9 pg Normal 26.0-34.0 [facility] Comment on above: Order Comment: Speci men Type: BLOOD SPECIMEN Ordering Facility: [facility] Address: [address] [place] [address] Performed By: #### 5 7021-8 #### [facility] CLIA [id number] [address] [place] [address] [place] MCHC (RBC) [Mass/Vol] 32.5 g/dL Normal 30.5-36.0 [facility] Comment on above: Order Comment: Speci men Type: BLOOD SPECIMEN Ordering Facility: [facility] Address: [address] [place] [address] Performed By: #### 5 7021-8 #### [facility] CLIA [id number] [address] [place] [address] [place] MCV (RBC) [Entitic vol] 98.2 fL Normal 80.0-100.0 [facility] Comment on above: Order Comment: Speci men Type: BLOOD SPECIMEN Ordering Facility: [facility] Address: [address] [place] [address] Performed By: #### 5 7021-8 #### [facility] CLIA [id number] [address] [place] [address] [place] Monocytes (Bld) [#/Vol] 0.83 10*3/uL Normal <0.87 [facility] Comment on above: Order Comment: Speci men Type: BLOOD SPECIMEN Ordering Facility: [facility] Address: [address] [place] [address] Performed By: #### 5 7021-8 #### [facility] CLIA [id number] [address] [place] [address] [place] Monocytes/100 WBC (Bld) 12.4 % Normal [facility] Comment on above: Order Comment: Speci men Type: BLOOD SPECIMEN Ordering Facility: [facility] Address: [address] [place] [address] Performed By: #### 5 7021-8 #### [facility] CLIA [id number] [address] [place] [address] [place] Neutrophils (Bld) [#/Vol] 4.05 10*3/uL Normal 1.45-7.50 [facility] Comment on above: Order Comment: Speci men Type: BLOOD SPECIMEN Ordering Facility: [facility] Address: [address] [place] [address] Performed By: #### 5 7021-8 #### [facility] CLIA [id number] [address] [place] [address] [place] Neutrophils/100 WBC (Bld) 60.7 % Normal [facility] Comment on above: Order Comment: Speci men Type: BLOOD SPECIMEN Ordering Facility: [facility] Address: [address] [place] [address] Performed By: #### 5 7021-8 #### [facility] CLIA [id number] [address] [place] [address] [place] Nucleated RBC (Bld) [#/Vol] 10*3/uL Normal <0.01 [facility] Comment on above: Order Comment: Speci men Type: BLOOD SPECIMEN Ordering Facility: [facility] Address: [address] [place] [address] Performed By: #### 5 7021-8 #### [facility] CLIA [id number] [address] [place] [address] [place] Nucleated RBC/100 WBC (Bld) [Ratio] 0.0 /100 WBC Normal [facility] Comment on above: Order Comment: Speci men Type: BLOOD SPECIMEN Ordering Facility: [facility] Address: [address] [place] [address] Performed By: #### 5 7021-8 #### [facility] CLIA [id number] [address] [place] [address] [place] Platelet mean volume (Bld) [Entitic vol] 10.1 fL Normal 9.0-12.7 [facility] Comment on above: Order Comment: Speci men Type: BLOOD SPECIMEN Ordering Facility: [facility] Address: [address] [place] [address] Performed By: #### 5 7021-8 #### [facility] CLIA [id number] [address] [place] [address] [place] Platelets (Bld) [#/Vol] 207 10*3/uL Normal 150-400 [facility] Comment on above: Order Comment: Speci men Type: BLOOD SPECIMEN Ordering Facility: [facility] Address: [address] [place] [address] Performed By: #### 5 7021-8 #### [facility] CLIA [id number] [address] [place] [address] [place] RBC (Bld) [#/Vol] 3.85 10*6/uL Low 4.20-6.00 [facility] Comment on above: Order Comment: Speci men Type: BLOOD SPECIMEN Ordering Facility: [facility] Address: [address] [place] [address] Performed By: #### 5 7021-8 #### [facility] CLIA [id number] [address] [place] [address] [place] WBC (Bld) [#/Vol] 6.68 10*3/uL Normal 3.70-11.00 [facility] Comment on above: Order Comment: Speci karel Type: BLOOD SPECIMEN Ordering Facility: [facility] Address: [address] [place] [address] Performed By: #### 5 7021-8 #### [facility] CLIA [id number] [address] [place] [address] [place] CNOVon 04-02-2025 CNOV Office Visit (PULMWS ) PACO WHITNEY Josefina ([id number]) 1935 M Date Time Provider Department 04/02/25 2:15 PM FRANCIA LUNA PULMWS During your visit today, we recorded the following information about you: Pulse Blood pressure Weight 76/minute 121/73 84.6 kg Francia Luna MD 04/02/2025 3:59 PM Signed . Respiratory [place] Note Patient name: Paco Whitney PCP: Clarice Murillo MD CC: COPD HPI: Paco Whitney 89 year old male former 60 pack year smoker, quitting 1990 with PMH significant for COPD/CB, GERD, HTN, AAA s/p repair, pulmonary nodules (3 cm mass s/p FNA 2014 negative for malignant cells), ILD. Current inhaled therapy with Symbicort and albuterol. From pulmonary standpoint he has been doing well no significant cough, sputum, wheezing or shortness of breath. No recent illnesses or hospitalizations. recently had a stroke and is now in [facility]. Has significant dementia and is non-ambulatory. This is very distressing to him. DATA: Imaging / Diagnostic Studies: 2022: 2021: 2018: 2016: 2015: Images reviewed, see HPI PAST MEDICAL HISTORY Diagnosis Date AAA [...] DYE.. Lopid [Gemfibrozil] Other: See Comments Myalgia. furosemide (LASIX) 20 mg tablet Take 1 tablet by mouth [...] Take 1 tablet by mouth once daily. sdxwlara-gizhhujav-izrbrbocg isone (CORTISPORIN) 3.5-10,000-1 mg/mL-unit/mL-% otic suspension Use 4 Drops in the ears four times daily. x 1 week clotrimazole-betamethasone (LOTRISONE) cream Apply 1 application to affected area two times a day. As needed acetaminophen (TYLENOL) 500 mg tablet Take 2 tablets by mouth every 6 hours. cholecalciferol (VITAMIN D3) 1,000 unit tab tablet Cholecalciferol (Vit D3) Active 3000 UNIT TWICE A DAY November 23, 2014 8:06am aspirin 81 mg cap Take 1 capsule by mouth once daily. SOCIAL HISTORY[1] FAMILY HISTORY Problem Relation Age of Onset [...] DX W/COLLJ SPEC WHEN PFRMD 09/19/2011 [facility] ENDOVASCULAR ANEURYSM REPAIR 01/2013 with bi-liac device HERNIA REPAIR HX 04/03/2013 PAST SURGICAL HISTORY OF 1971 Back Surgery PAST SURGICAL HISTORY OF 11/15/2016 Colonoscopy, Dr. Romeo RPR RETINAL DTCHMNT DRG SUBRETINAL FLUID PC 2003 Laser repair retinal detach, right eye TONSILLECTOMY PRIMARY/SECONDARY Tonsillectomy VASECTOMY UNI/BI SPX W/POSTOP SEMEN EXAMS 1963 PMH, Social history, fa (more content not included)... Normal [facility] CBC W Auto Differential pane l (Bld)on 03-27-2025 Basophils (Bld) [#/Vol] 0.06 10*3/uL NINF [facility] Basophils/100 WBC (Bld) 0.8 % [facility] Differential cell count method Nom (Bld) Auto [facility] Eosinophils (Bld) [#/Vol] 0.13 10*3/uL [facility] Eosinophils/100 WBC (Bld) 1.8 % [facility] Erythrocyte distribution width (RBC) [Ratio] 14.6 % 11.5 - 15.0 % [facility] Hematocrit (Bld) [Volume fraction] 35.8 % Low 39.0 - 51.0 % [facility] Hemoglobin (Bld) [Mass/Vol] 11.6 g/dL Low 13.0 - 17.0 g/dL [facility] Immature granulocytes (Bld) [#/Vol] [facility] Immature granulocytes/100 WBC (Bld) 0.3 % [facility] Interpretation and review of laboratory results Abnormal [facility] Lymphocytes (Bld) [#/Vol] 1.73 10*3/uL [facility] Lymphocytes/100 WBC (Bld) 23.7 % [facility] MCH (RBC) [Entitic mass] 31.8 pg 26.0 - 34.0 pg [facility] MCHC (RBC) [Mass/Vol] 32.4 g/dL 30.5 - 36.0 g/dL [facility] MCV (RBC) [Entitic vol] 98.1 fL 80.0 - 100.0 fL [facility] Monocytes (Bld) [#/Vol] 0.72 10*3/uL [facility] Monocytes/100 WBC (Bld) 9.9 % [facility] Neutrophils (Bld) [#/Vol] 4.64 10*3/uL [facility] Neutrophils/100 WBC (Bld) 63.5 % [facility] Nucleated RBC (Bld) [#/Vol] [facility] Nucleated RBC/100 WBC (Bld) [Ratio] 0.0 % /100 WBC [facility] Platelet mean volume (Bld) [Entitic vol] 9.7 fL 9.0 - 12.7 fL [facility] Platelets (Bld) [#/Vol] 279 10*3/uL [facility] RBC (Bld) [#/Vol] 3.65 10*6/uL Low 4.20 - 6.00 m/uL [facility] WBC (Bld) [#/Vol] 7.30 10*3/uL [facility] Basophils (Bld) [#/Vol] 0.06 10*3/uL Normal <0.11 [facility] Comment on above: Order Comment: Speci men Type: BLOOD SPECIMEN Ordering Facility: [facility] Address: [address] [place] [address] Performed By: #### 5 5454-3 #### [facility] CLIA [id number] [address] [place] [address] [place] Basophils/100 WBC (Bld) 0.8 % Normal [facility] Comment on above: Order Comment: Speci men Type: BLOOD SPECIMEN Ordering Facility: [facility] Address: [address] [place] [address] Performed By: #### 5 5454-3 #### [facility] CLIA [id number] [address] [place] [address] [place] Differential cell count method Nom (Bld) Auto Normal [facility] Comment on above: Order Comment: Speci men Type: BLOOD SPECIMEN Ordering Facility: [facility] Address: [address] [place] [address] Performed By: #### 5 5454-3 #### [facility] CLIA [id number] [address] [place] [address] [place] Eosinophils (Bld) [#/Vol] 0.13 10*3/uL Normal <0.46 [facility] Comment on above: Order Comment: Speci men Type: BLOOD SPECIMEN Ordering Facility: [facility] Address: [address] [place] [address] Performed By: #### 5 5454-3 #### [facility] CLIA [id number] [address] [place] [address] [place] Eosinophils/100 WBC (Bld) 1.8 % Normal [facility] Comment on above: Order Comment: Speci men Type: BLOOD SPECIMEN Ordering Facility: [facility] Address: [address] [place] [address] Performed By: #### 5 5454-3 #### [facility] CLIA [id number] [address] [place] [address] [place] Erythrocyte distribution width (RBC) [Ratio] 14.6 % Normal 11.5-15.0 [facility] Comment on above: Order Comment: Speci men Type: BLOOD SPECIMEN Ordering Facility: [facility] Address: [address] [place] [address] Performed By: #### 5 5454-3 #### [facility] CLIA [id number] [address] [place] [address] [place] Hematocrit (Bld) [Volume fraction] 35.8 % Low 39.0-51.0 [facility] Comment on above: Order Comment: Speci men Type: BLOOD SPECIMEN Ordering Facility: [facility] Address: [address] [place] [address] Performed By: #### 5 5454-3 #### [facility] CLIA [id number] [address] [place] [address] [place] Hemoglobin (Bld) [Mass/Vol] 11.6 g/dL Low 13.0-17.0 [facility] Comment on above: Order Comment: Speci men Type: BLOOD SPECIMEN Ordering Facility: [facility] Address: [address] [place] [address] Performed By: #### 5 5454-3 #### [facility] CLIA [id number] [address] [place] [address] [place] Immature granulocytes (Bld) [#/Vol] 10*3/uL Normal <0.10 [facility] Comment on above: Order Comment: Speci men Type: BLOOD SPECIMEN Ordering Facility: [facility] Address: [address] [place] [address] Performed By: #### 5 5454-3 #### [facility] CLIA [id number] [address] [place] [address] [place] Immature granulocytes/100 WBC (Bld) 0.3 % Normal [facility] Comment on above: Order Comment: Speci men Type: BLOOD SPECIMEN Ordering Facility: [facility] Address: [address] [place] [address] Performed By: #### 5 5454-3 #### [facility] CLIA [id number] [address] [place] [address] [place] Lymphocytes (Bld) [#/Vol] 1.73 10*3/uL Normal 1.00-4.00 [facility] Comment on above: Order Comment: Speci men Type: BLOOD SPECIMEN Ordering Facility: [facility] Address: [address] [place] [address] Performed By: #### 5 5454-3 #### [facility] CLIA [id number] [address] [place] [address] [place] Lymphocytes/100 WBC (Bld) 23.7 % Normal [facility] Comment on above: Order Comment: Speci men Type: BLOOD SPECIMEN Ordering Facility: [facility] Address: [address] [place] [address] Performed By: #### 5 5454-3 #### [facility] CLIA [id number] [address] [place] [address] [place] MCH (RBC) [Entitic mass] 31.8 pg Normal 26.0-34.0 [facility] Comment on above: Order Comment: Speci men Type: BLOOD SPECIMEN Ordering Facility: [facility] Address: [address] [place] [address] Performed By: #### 5 5454-3 #### [facility] CLIA [id number] [address] [place] [address] [place] MCHC (RBC) [Mass/Vol] 32.4 g/dL Normal 30.5-36.0 [facility] Comment on above: Order Comment: Speci men Type: BLOOD SPECIMEN Ordering Facility: [facility] Address: [address] [place] [address] Performed By: #### 5 5454-3 #### [facility] CLIA [id number] [address] [place] [address] [place] MCV (RBC) [Entitic vol] 98.1 fL Normal 80.0-100.0 [facility] Comment on above: Order Comment: Speci men Type: BLOOD SPECIMEN Ordering Facility: [facility] Address: [address] [place] [address] Performed By: #### 5 5454-3 #### [facility] CLIA [id number] [address] [place] [address] [place] Monocytes (Bld) [#/Vol] 0.72 10*3/uL Normal <0.87 [facility] Comment on above: Order Comment: Speci men Type: BLOOD SPECIMEN Ordering Facility: [facility] Address: [address] [place] [address] Performed By: #### 5 5454-3 #### [facility] CLIA [id number] [address] [place] [address] [place] Monocytes/100 WBC (Bld) 9.9 % Normal [facility] Comment on above: Order Comment: Speci men Type: BLOOD SPECIMEN Ordering Facility: [facility] Address: [address] [place] [address] Performed By: #### 5 5454-3 #### [facility] CLIA [id number] [address] [place] [address] [place] Neutrophils (Bld) [#/Vol] 4.64 10*3/uL Normal 1.45-7.50 [facility] Comment on above: Order Comment: Speci men Type: BLOOD SPECIMEN Ordering Facility: [facility] Address: [address] [place] [address] Performed By: #### 5 5454-3 #### [facility] CLIA [id number] [address] [id number] [address] [place] Neutrophils/100 WBC (Bld) 63.5 % Normal [facility] Comment on above: Order Comment: Speci men Type: BLOOD SPECIMEN Ordering Facility: [facility] Address: [address] [place] [address] Performed By: #### 5 5454-3 #### [facility] CLIA [id number] [address] [place] [address] [place] Nucleated RBC (Bld) [#/Vol] 10*3/uL Normal <0.01 [facility] Comment on above: Order Comment: Speci men Type: BLOOD SPECIMEN Ordering Facility: [facility] Address: [address] [place] [address] Performed By: #### 5 5454-3 #### [facility] CLIA [id number] [address] [place] [address] [place] Nucleated RBC/100 WBC (Bld) [Ratio] 0.0 /100 WBC Normal [facility] Comment on above: Order Comment: Speci men Type: BLOOD SPECIMEN Ordering Facility: [facility] Address: [address] [place] [address] Performed By: #### 5 5454-3 #### [facility] CLIA [id number] [address] [place] [address] [place] Platelet mean volume (Bld) [Entitic vol] 9.7 fL Normal 9.0-12.7 [facility] Comment on above: Order Comment: Speci men Type: BLOOD SPECIMEN Ordering Facility: [facility] Address: [address] [place] [address] Performed By: #### 5 5454-3 #### [facility] CLIA [id number] [address] [place] [address] [place] Platelets (Bld) [#/Vol] 279 10*3/uL Normal 150-400 [facility] Comment on above: Order Comment: Speci men Type: BLOOD SPECIMEN Ordering Facility: [facility] Address: [address] [place] [address] Performed By: #### 5 5454-3 #### [facility] CLIA [id number] [address] [place] [address] [place] RBC (Bld) [#/Vol] 3.65 10*6/uL Low 4.20-6.00 [facility] Comment on above: Order Comment: Speci men Type: BLOOD SPECIMEN Ordering Facility: [facility] Address: [address] [place] [address] Performed By: #### 5 5454-3 #### [facility] CLIA [id number] [address] [place] [address] [place] WBC (Bld) [#/Vol] 7.30 10*3/uL Normal 3.70-11.00 [facility] Comment on above: Order Comment: Speci men Type: BLOOD SPECIMEN Ordering Facility: [facility] Address: [address] [place] [address] Performed By: #### 5 5454-3 #### [facility] CLIA [id number] [address] [place] [address] OF [place] CNOVon 03-27-2025 [facility] PACO WHITNEY ([id number]) 1935 M Date Time Provider Department 03/27/25 1:40 PM NEISHA COPE During your visit today, we recorded the following information about you: Pulse Respiration Blood pressure Weight 72/minute 16/minute 98/54 86.6 kg Neisha Cope APRN.BORDER MEASURER 03/27/2025 2:17 PM Signed Take on furosemide daily X 3 days. Recheck in 2 weeks. Let us know if no better/worsening. Neisha Cope, ROSS.BORDER MEASURER 03/28/2025 10:23 AM Signed This is a 89 year old male who presents today with: The patient is an 89-year-old male with peripheral neuropathy, renal cysts, and fatty liver, presenting for evaluation of persistent bilateral lower extremity edema. HISTORY OF PRESENT ILLNESS: Bilateral Lower Extremity Edema: - Paco Rocha Whitney noted swelling in both legs and feet, initially in the right leg, now bilateral. - Edema persists overnight, particularly in the right leg. - Aggravated by prolonged walking. - Denies dyspnea or chest pain. - Family history of heart conditions. - Paco's attempts to use compression stockings were unsuccessful due to difficulty putting them on. - Elevates legs to alleviate swelling. Home BPs - 120's-130's. Peripheral Neuropathy: - Currently managed by Dr. Murillo. Recent Hospitalization: - Paco was hospitalized for two days due to a gastrointestinal bleed. - Underwent a colonoscopy, which revealed diverticulosis and hemorrhoids. - Previous episodes of bleeding associated with dietary intake (e.g., nevarez beans, corn, nuts). - Paco expressed dissatisfaction with the recent hospital experience. Was advised to recheck labs in 3-5 days. No bleeding since. PAST MEDICAL HISTORY: PAST MEDICAL HISTORY Diagnosis [...] W/COLLJ SPEC WHEN PFRMD 09/19/2011 Colonoscopy [facility] ENDOVASCULAR ANEURYSM REPAIR 01/2013 with bi-lia [...] [Gemfibrozil] MEDICATIONS Current Outpatient Medications Medication Sig furosemide (LASIX) 20 mg tablet Take 1 tablet by mouth [...] Take 1 tablet by mouth once daily. stapbjil-reocgzzxu-wecrnrzxz isone (CORTISPORIN) 3.5-10,000-1 mg/mL-unit/mL-% otic suspension Use 4 Drops in the ears four times daily. x 1 week clotrimazole-betamethasone (LOTRISONE) cream Apply 1 application to affected area two times a day. As needed acetaminophen (TYLENOL) 500 mg tablet Take 2 tablets by mouth every 6 hours. cholecalciferol (VITAMIN D3) 1,000 unit tab tablet Cholecalciferol (Vit D3) (more content not included)... Normal [facility] 12 Lead EKGon 03-12-2025 12 Lead EKG [facility] [address] [place] [address] 12 Lead EKG 03/12/25 0447 MR#: [id number] Acct: [id number] Name: PACO WHITNEY Rep #: [id number] : 1935 89 From: Kelly Ha MD Attending Dr: Dr. Jaspal Prasad MD Status : ADM IN Ordering Dr: Erlin Vences MD Date: 03/12/25 Location: [facility] Sex: M C Admitted: 03/10/25 Test Reason : PRE-OP Blood Pressure : */* mmHG Vent. Rate : 61 BPM Atrial Rate : 61 BPM P-R Int : 212 ms QRS Dur : 142 ms QT Int : 426 ms P-R-T Axes : 25 -72 18 degrees QTcB Int : 428 ms Sinus rhythm with 1st degree A-V block Left axis deviation Left bundle branch block Abnormal ECG When compared with ECG of 28-Jun-2018 12:26, [place] interval has increased Vent. rate has decreased by 30 bpm Left bundle branch block is now Present Confirmed by KELLY HA ([id number]), order editor ADITYA JUAREZ ([id number]) on 03/12/2025 1:10:47 PM Referred By: Confirmed By: KELLY HA 03/12/25 1310 Date Kelly Ha MD CC: Dr. Erlin Vences MD; Dr. Clarice Murillo MD; Dr. Jaspal Prasad MD Signed Normal [facility] Absolute lymphocyte countOrd ered By: Jaspal Prasad on 03-12-2025 Lymphocytes Auto (Unsp spec) [#/Vol] 1.31 10*3/uL 0.83-4.51 [facility] Absolute neutrophil countOrd ered By: Jaspal Prasad on 03-12-2025 Neutrophils (Bld) [#/Vol] 5.5 10*3/uL 2.0-7.7 [facility] Activated partial thrombopla stin time (aPTT) in platelet poor plasma by coagulation aOrdered By: Erlin Vences on 03-12-2025 aPTT Coag (PPP) [Time] 29.5 s 24.1-36.2 [facility] Anion gap in Serum or Plasma Ordered By: Jaspal Prasad on 03-12-2025 Anion gap [Moles/Vol] 8 mmol/L 5-15 [facility] Automated lymphocyte count a s percentage of total leukocytesOrdered By: Jaspal Prasad on 03-12-2025 Lymphocytes/100 WBC Auto (Unsp spec) 16.7 % Low -41 [facility] BUN/creatinine ratioOrdered By: Jaspal Prasad on 03-12-2025 Urea nitrogen/Creatinine [Mass ratio] 22.0 mg/mg High 10- [facility] Basic Metabolic Profile (BMP )on 03-12-2025 BUN/CRE 22.0 RATIO High 10- [facility] Comment on above: Performed By: #### L 300.4310, L300.3900 #### [facility] [address] [place], [address] Calcium [Mass/Vol] 9.8 mg/dL Normal 7.6-11.0 [facility] Comment on above: Performed By: #### L 300.4310, L300.3900 #### [facility] [address] [place], [address] Chloride [Moles/Vol] 104 mmol/L Normal 98-108 [facility] Comment on above: Performed By: #### L 300.4310, L300.3900 #### [facility] [address] [place], [address] CO2 [Moles/Vol] 24.7 mmol/L Normal 21.0-32.0 [facility] Comment on above: Performed By: #### L 300.4310, L300.3900 #### [facility] [address] [place], [address] Creatinine [Mass/Vol] 0.98 mg/dL Normal 0.70-1.20 [facility] Comment on above: Performed By: #### L 300.4310, L300.3900 #### [facility] [address] [place], [address] ECRCL 54.61 ml/min Normal 50-250 [facility] Comment on above: Performed By: #### L 300.4310, L300.3900 #### [facility] [address] [place], [address] GAP 8 Normal 5-15 [facility] Comment on above: Performed By: #### L 300.4310, L300.3900 #### [facility] [address] [place], [address] GFR/1.73 sq M.predicted among non-blacks MDRD (S/P/Bld) [Vol rate/Area] 74 mL/min/{1.73_m2} Normal >60 [facility] Comment on above: Result Comment: mL/m in/1.73m2 CKD-EPI Creatinine Equation (2020) Performed By: #### L 300.4310, L300.3900 #### [facility] [address] [place], [address] Glucose [Mass/Vol] 102 mg/dL High 70-99 [facility] Comment on above: Performed By: #### L 300.4310, L300.3900 #### [facility] [address] [place], [address] Potassium [Moles/Vol] 4.5 mmol/L Normal 3.3-5.1 [facility] Comment on above: Performed By: #### L 300.4310, L300.3900 #### [facility] [address] [place], [address] Sodium [Moles/Vol] 137 mmol/L Normal 133-145 [facility] Comment on above: Performed By: #### L 300.4310, L300.3900 #### [facility] [address] [place], [address] Urea nitrogen [Mass/Vol] 22 mg/dL High 4-19 [facility] Comment on above: Performed By: #### L 300.4310, L300.3900 #### [facility] [address] [place], [address] Basophil percentageOrdered B y: Jaspal Prasad on 03-12-2025 Basophils/100 WBC (Bld) 0.8 % 0-1 [facility] Bedside Glucoseon 03-12-2025 FINGERSTICK GLU 104 mg/dL Normal 74-106 [facility] Comment on above: Result Comment: MELISSA FORMAN OF PATIENT CARE PER NURSING PROTOCOL Performed By: #### L 501.080 #### [facility] [address] [place], [address] Bilirubin directOrdered By: Erlin Vences on 03-12-2025 Bilirubin.direct [Mass/Vol] 0.42 mg/dL High 0.00-0.30 [facility] Bilirubin, totalOrdered By: Erlin Vences on 03-12-2025 Bilirubin [Mass/Vol] 0.84 mg/dL 0.00-1.30 [facility] CBC W/Diff, Automatedon 02-16 Absolute Lymph 1.31 X10 3/uL Normal 0.83-4.51 [facility] Comment on above: Performed By: #### L 500.2500, L100.0100, L500.3400 #### [facility] [address] [place], [address] Absolute Neut 5.5 X10 3/uL Normal 2.0-7.7 [facility] Comment on above: Performed By: #### L 500.2500, L100.0100, L500.3400 #### [facility] [address] [place], [address] Basophils/100 WBC (Bld) 0.8 % Normal 0-1 [facility] Comment on above: Performed By: #### L 500.2500, L100.0100, L500.3400 #### [facility] [address] [place], [address] Eosinophils/100 WBC (Bld) 2.2 % Normal 0-5 [facility] Comment on above: Performed By: #### L 500.2500, L100.0100, L500.3400 #### [facility] [address] [place], [address] Erythrocyte distribution width (RBC) [Ratio] 13.9 % Normal 11.6-14.6 [facility] Comment on above: Performed By: #### L 500.2500, L100.0100, L500.3400 #### [facility] [address] [place], [address] Hematocrit (Bld) [Volume fraction] 37.2 % Low 40-54 [facility] Comment on above: Performed By: #### L 500.2500, L100.0100, L500.3400 #### [facility] [address] [place], [address] Hemoglobin (Bld) [Mass/Vol] 12.8 g/dL Low 13.0-16.5 [facility] Comment on above: Performed By: #### L 500.2500, L100.0100, L500.3400 #### [facility] [address] [place], [address] IG% 0.300 Normal 0.0-0.9 [facility] Comment on above: Result Comment: IG% - Immature Granulocytes (promyelocytes, myelocytes and metamyelocytes) > 1% indicates that a LEFT SHIFT is Present. Performed By: #### L 500.2500, L100.0100, L500.3400 #### [facility] [address] [place], [address] Lymphocytes/100 WBC (Bld) 16.7 % Low 19-41 [facility] Comment on above: Performed By: #### L 500.2500, L100.0100, L500.3400 #### [facility] [address] [place], [address] MCH (RBC) [Entitic mass] 32.5 pg High 27.0-32.0 [facility] Comment on above: Performed By: #### L 500.2500, L100.0100, L500.3400 #### [facility] [address] [place], [address] MCHC (RBC) [Mass/Vol] 34.4 g/dL Normal 32-36 [facility] Comment on above: Performed By: #### L 500.2500, L100.0100, L500.3400 #### [facility] [address] [place], [address] MCV (RBC) [Entitic vol] 94.4 fL High 80-94 [facility] Comment on above: Performed By: #### L 500.2500, L100.0100, L500.3400 #### [facility] [address] [place], [address] Monocytes/100 WBC (Bld) 9.7 % Normal 0-10 [facility] Comment on above: Performed By: #### L 500.2500, L100.0100, L500.3400 #### [facility] [address] [place], [address] Neutrophils/100 WBC (Bld) 70.3 % High 47-70 [facility] Comment on above: Performed By: #### L 500.2500, L100.0100, L500.3400 #### [facility] [address] [place], [address] Nucleated RBC (Bld) [#/Vol] 0 10*3/uL Normal 0-5 [facility] Comment on above: Performed By: #### L 500.2500, L100.0100, L500.3400 #### [facility] [address] [place], [address] Platelet mean volume (Bld) [Entitic vol] 9.3 fL Normal 6.2-12.0 [facility] Comment on above: Performed By: #### L 500.2500, L100.0100, L500.3400 #### [facility] [address] [place], [address] Platelets (Bld) [#/Vol] 190 10*3/uL Normal 150-450 [facility] Comment on above: Performed By: #### L 500.2500, L100.0100, L500.3400 #### [facility] [address] [place], [address] RBC (Bld) [#/Vol] 3.94 10*6/uL Low 4.6-6.2 [facility] Comment on above: Performed By: #### L 500.2500, L100.0100, L500.3400 #### [facility] [address] [place], [address] RDW SD 47.9 fl High 35.1-43.9 [facility] Comment on above: Performed By: #### L 500.2500, L100.0100, L500.3400 #### [facility] [address] [place], [address] WBC (Bld) [#/Vol] 7.8 10*3/uL Normal 4.4-11.0 [facility] Comment on above: Performed By: #### L 500.2500, L100.0100, L500.3400 #### [facility] [address] [place], [address] Carbon dioxide, total [Moles /volume] in Central venous bloodOrdered By: Jaspal Prasad on 03-12-2025 CO2 [Moles/Vol] 24.7 mmol/L 21.0-32.0 [facility] Chloride assayOrdered By: Serena Prasad on 03-12-2025 Chloride [Moles/Vol] 104 mmol/L 98-108 [facility] Colonoscopy Reporton 025 Colonoscopy Report [facility] Medical Records Department [address] [place] [address] Colonoscopy Report MR#: [id number] Acct: [id number] Name: PACO WHITNEY Rep #: [id number] : 1935 89 From: Jf Mack DO PCP: Dr. Clarice Murillo MD Status:ADM IN Patient Name: Paco Whitney Procedure Date: 03/12/2025 4:37 PM Date of : 1935 Age: 89 Procedure: Colonoscopy Indications: Hematochezia Providers: Jf Mack DO Medicines: Monitored Anesthesia Care Patient Profile: This is an 89 year old male. Refer to note in patient chart for documentation of history and physical. Last Colonoscopy: several years ago. Complications: No immediate complications. Procedure: Pre-Anesthesia Assessment: - Prior to the procedure, a History and Physical was performed, and patient medications and allergies were reviewed. The patient is competent. The risks and benefits of the procedure and the sedation options and risks were discussed with the patient. All questions were answered and informed consent was obtained. Patient identification and proposed procedure were verified by the physician in the pre-procedure area. Mental Status Examination: alert and oriented. Airway Examination: normal oropharyngeal airway and neck mobility. Respiratory Examination: clear to auscultation. CV Examination: normal. Prophylactic Antibiotics: The patient does not require prophylactic antibiotics. Prior Anticoagulants: The patient has taken no anticoagulant or antiplatelet agents. ASA Grade Assessment: III - A patient with severe systemic disease. After reviewing the risks and benefits, the patient was deemed in satisfactory condition to undergo the procedure. The anesthesia plan was to use monitored anesthesia care (MAC). Immediately prior to administration of medications, the patient was re-assessed for adequacy to receive sedatives. The heart rate, respiratory rate, oxygen saturations, blood pressure, adequacy of pulmonary ventilation, and response to care were monitored throughout the procedure. The physical status of the patient was re-assessed after the procedure. After I obtained informed consent, the scope was passed under direct vision. Throughout the procedure, the patient's blood pressure, pulse, and oxygen saturations were monitored continuously. The Colonoscope was introduced through the anus and advanced to the cecum, identified by appendiceal orifice and ileocecal valve. The colonoscopy was performed without difficulty. The patient tolerated the procedure well. The quality of the bowel preparation was fair. The ileocecal valve, appendiceal orifice, and rectum were photographed. Scope In: 4:38:16 PM Scope Withdrawal Time 0 hours 3 minutes 31 seconds Scope Out: 4:46:02 PM Total Procedure Duration Time 0 hours 7 minutes 46 seconds Findings: The perianal and digital rectal examinations were normal. Non-bleeding internal hemorrhoids were found during retroflexion. The hemorrhoids were severe, large and Grade IV (internal hemorrhoids that prolapse and cannot be reduced manually). 5 mm, non-bleeding rectal varices were found. Multiple small and large-mouthed diverticula were found in the entire colon. Stool was found in the entire colon. The exam was otherwise without abnormality on direct and retroflexion views. Impression: - Preparation of the colon was fair. - Non-bleeding internal hemorrhoids. - Rectal varices. - Diverticulosis in the entire examined colon. - Stool in the entire examined colon. - The examination was otherwise normal on direct and retroflexion views. - No specimens collected. Recommendation: - Discharge patient to home. - Resume regular diet. - Continue present medications. - No repeat colonoscopy due to age. Procedure Code(s): --- Professional --- 90648, Colonoscopy, flexible; diagnostic, including collection of specimen(s) by brushing or washing, when performed (separate procedure) CPT copyright 2021 [employer]. All rights reserved. The codes documented in this report are preliminary and upon seafood process worker review may be revised to meet current compliance requirements. Jf Mack DO 03/12/2025 4:55:03 PM This report has been signed electronically. Number of Addenda: 0 Note Initiated On: 03/12/2025 4:37 PM 03/12/25 1655 Date Jf Mack DO Cosigner Signature: Date (if indicated) CC: Dr. Clarice Murillo MD; Jf Mack DO Date Dictated: 03/12/25 1637 Date Transcribed: Press Tender Star Signal: AUGUSTINE Signed Normal [facility] Discharge Instructionon 02-16 Discharge Instruction [facility] Medical Records Department [address] [place] [address] Instructions for Home/Discharge Instructions 03/12/25 1321 MR#: [id number] Acct: [id number] Name: PACO WHITNEY Rep #: [id number] : 1935 89 From: Jaspal Prasad MD PCP: Dr. Clarice Murillo MD Status:ADM IN Discharge Instructions DC O2, CPAP, BIPAP needs Home O2 Discharge instructions: No Dressing / Incision Discharge Activity: Return to Normal Activity Dressing / Incision Call your doctor if you observe: Fever of 101 or Higher, Shortness of breath, Dizziness, Fainting spells, Swelling in the ankles, Chest pain and Increased palpitations (irregular heartbeat) Follow Up Care Test Results: Test results from this visit will be discussed in further detail at your follow-up appointment, if applicable. Discharge Plan Admission Admit Date/Time: 03/10/25 19:22 Attending Provider: Jaspal Prasad Primary Care Provider: Clarice Murillo Consulting Providers: Miller Vides; Riky Li; Jf Mack; Alessia Samuels; Samaria Carlin; Lauren Webber Instructions Additional Instructions / Restrictions: Follow-up with your PCP in 3 to 5 days to monitor your hemoglobin, as we discussed if you develop lightheadedness or dizziness while having bright red blood per rectum come to the hospital otherwise call your PCP to monitor your hemoglobin if you have intermittent episodes of bleeding to determine if and when you need to be evaluated as diverticular bleeding can be oftentimes self-limited. Discharge Orders/Prescriptions Prescriptions: Continued albuterol sulfate 1 INHALER inhaler 2 puff inhalation Q4H PRN (Reason: Sob /Or Wheezing) ramipril 10 MG capsule 10 mg PO DAILY Patient Comments: BLOOD PRESSURE pantoprazole 40 MG tablet 40 mg PO DAILY Patient Comments: ACID REFLUX tamsulosin 0.4 MG capsule 0.4 mg PO QHS Patient Comments: PROSTATE cholecalciferol (vitamin D3) 1,000 UNIT tablet 5,000 unit PO TID budesonide-formoterol 1 INHALER inhaler 2 puff inhalation BID fenofibrate 160 MG tablet 160 mg PO DAILY gabapentin 600 mg tablet 600 mg PO TID latanoprost 0.005 % drops 1 drp ophthalmic (eye) DAILY albuterol sulfate 2.5 mg /3 mL (0.083 %) solution for nebulization 2.5 mg continuous nebulization Q4H PRN (Reason: wheezing) Patient Comments: PT HAS NOT USED YET Referrals / Follow Up: Clarice Murillo MD [Primary Care Provider] - Within 1 Week Jf Mack DO [Med Staff - Active Staff] - Within 1 Month Disposition Disposition (needs filled in before D/C Order can be placed): Home, Self Care 03/12/25 1325 Jaspal Prasad MD CC: CHRIS Samuels; CHRIS Carlin; Dr. Miller Vides DO; Dr. Clarice Murillo MD; Dr. Riky Li MD; OLI Levine; Jf Mack DO Signed Normal [facility] Electrocardiogram reportOrde red By: Kelly Ha on 03-12-2025 EKG study [facility] Cardiovascular Services [address] [place] [address] 12 Lead EKG 03/12/25 0807 MR#: [id number] Acct: [id number] Name: PACO WHITNEY Rep #:[id number] : 1935 89 From: Kelly Ha MD Attending Dr: Dr. Jaspal Prasad MD Status: ADM IN Ordering Dr: Erlin Vences MD Date: 03/12/25 Location: [facility] Sex: M C Admitted: 03/10/25 Test Reason : PRE-OP Blood Pressure : */* mmHG Vent. Rate : 61 BPM Atrial Rate : 61 BPM P-R Int : 212 ms QRS Dur : 142 ms QT Int : 426 ms P-R-T Axes : 25 -72 18 degrees QTcB Int : 428 ms Sinus rhythm with 1st degree A-V block Left axis deviation Left bundle branch block Abnormal ECG When compared with ECG of 28-Jun-2018 12:26, [place] interval has increased Vent. rate has decreased by 30 bpm Left bundle branch block is now Present Confirmed by KELLY HA ([id number]), order editor ADITYA JUAREZ ([id number]) on 03/12/2025 1:10:47 PM Referred By: Confirmed By: KELLY HA 03/12/25 1310 Date _ Kelly Ha MD CC: Dr. Erlin Vences MD; Dr. Clarice Murillo MD; Dr. Jaspal Prasad MD ~ Signed [facility] Other Phone: Eosinophil percentageOrdered By: Jasapl Prasad on 03-12-2025 Eosinophils/100 WBC (Bld) 2.2 % 0-5 [facility] Erythrocyte distribution wid th ratioOrdered By: Jaspal Prasad on 03-12-2025 Erythrocyte distribution width (RBC) [Ratio] 13.9 % 11.6-14.6 [facility] Erythrocyte distribution wid th standard deviationOrdered By: Jaspal Prasad on 03-12-2025 Erythrocyte distribution width (RBC) [Ratio] 47.9 fl High 35.1-43.9 [facility] Glomerular filtration rate ( GFR) estimation/1.73 sq m using serum, plasma, or whole bOrdered By: Jaspal Prasad on 03-12-2025 GFR/1.73 sq M.predicted among non-blacks MDRD (S/P/Bld) [Vol rate/Area] 74 mL/min/{1.73_m2} >60 [facility] Comment on above: mL/min/1.73m2 CKD-EP I Creatinine Equation (2020) [facility] deOrdered By: Jaspal Prasad on 03-12-2025 Glucose [Mass/Vol] 104 mg/dL 74-106 [facility] Comment on above: MANAGEMENT OF PATIEN T CARE PER NURSING PROTOCOL Hematocrit Auto (Bld) [Volum e fraction]Ordered By: Jaspal Prasad on 03-12-2025 Hematocrit (Bld) [Volume fraction] 37.2 % Low 40-54 [facility] Hemoglobin measurementOrdere d By: Jaspal Prasad on 03-12-2025 Hemoglobin (Bld) [Mass/Vol] 12.8 g/dL Low 13.0-16.5 [facility] Immature granulocytes/100 WB C Auto (Bld)Ordered By: Jaspal Prasad on 03-12-2025 Immature granulocytes/100 WBC (Bld) 0.300 % 0.0-0.9 [facility] Comment on above: IG% - Immature Granu locytes (promyelocytes, myelocytes and metamyelocytes) > 1% indicates that a LEFT SHIFT is Present. International normalized rat io (INR) calculationOrdered By: Erlin Vences on 03-12-2025 INR Coag (Bld) [Relative time] 1.1 {INR} [facility] Laboratory - Chemistry and C hemistry - challengeOrdered By: Erlin Vences on 03-12-2025 AST [Catalytic activity/Vol] 29 U/L <38 [facility] Liver Profileon 03-12-2025 Albumin [Mass/Vol] 3.4 g/dL Normal 3.4-4.8 [facility] Comment on above: Performed By: #### L 300.5050, L300.3900 #### [facility] Laboratory [address] [place], [address] ALK PHOS 80 U/L Normal 40-129 [facility] Comment on above: Performed By: #### L 300.4310, L300.3900 #### [facility] Laboratory [address] [place], [address] ALT [Catalytic activity/Vol] 19 U/L Normal <=46 [facility] Comment on above: Performed By: #### L 300.4310, L300.3900 #### [facility] Laboratory [address] [place], [address] AST [Catalytic activity/Vol] 29 U/L Normal <=37 [facility] Comment on above: Performed By: #### L 300.4310, L300.3900 #### [facility] Laboratory [address] [place], [address] Bilirubin [Mass/Vol] 0.84 mg/dL Normal 0.00-1.30 [facility] Comment on above: Performed By: #### L 300.4310, L300.3900 #### [facility] Laboratory [address] [place], [address] Bilirubin.direct [Mass/Vol] 0.42 mg/dL High 0.00-0.30 [facility] Comment on above: Performed By: #### L 300.4310, L300.3900 #### [facility] Laboratory [address] [place], [address] Globulin (S) [Mass/Vol] 2.3 g/dL Normal 2.2-4.2 [facility] Comment on above: Performed By: #### L 300.4310, L300.3900 #### [facility] Laboratory [address] [place], [address] T PROT 5.7 g/dL Low 5.9-8.4 [facility] Comment on above: Performed By: #### L 300.4310, L300.3900 #### [facility] Laboratory [address] [place], [address] MCV (mean corpuscular volume ) determinationOrdered By: Jaspal Prasad on 03-12-2025 MCV (RBC) [Entitic vol] 94.4 fL High 80-94 [facility] MR/OP.PROVATon 03-12-2025 MR/OP.[facility] Medical Records Department [address] [place] [address] Provation Physician Letter MR#: [id number] Acct: [id number] Name: PACO WHITNEY Rep #: [id number] : 1935 89 From: Jf Mack DO PCP: Dr. Clarice Murillo MD Status:ADM IN 03/12/2025 Clarice Murillo [address] [place] [address] Re : Colonoscopy procedure for Paco Whitney Dear Dr. Murillo This procedure was performed on Wednesday, March 12, 2025. My impressions and recommendations are as follows: Impressions : - Preparation of the colon was fair. - Non-bleeding internal hemorrhoids. - Rectal varices. - Diverticulosis in the entire examined colon. - Stool in the entire examined colon. - The examination was otherwise normal on direct and retroflexion views. - No specimens collected. Recommendations : - Discharge patient to home. - Resume regular diet. - Continue present medications. - No repeat colonoscopy due to age. My findings are described in the full procedure note, which is enclosed. If I can be of further assistance, please feel free to contact me at . Sincerely, Jf Mack DO 03/12/2025 4:55:03 PM This report has been signed electronically. 03/12/25 9309 Date Jf Matias Signature: Date (if indicated) CC: CHRIS Samuels; CHRIS Carlin; Dr. Miller Vides DO; Dr. Clarice Murillo MD; Dr. Jaspal Prasad MD; Dr. Riky Li MD; OLI Levine; Jf Mack DO Date Dictated: 03/12/251636 Date Transcribed: Press Tender Star Signal: AUGUSTINE Signed [facility] MR/POSTOP.ANEon 03-12-2025 MR/POSTOP.[facility] Medical Records Department [address] [place] [address] Anesthesia Postop Eval I 03/12/251652 MR#: [id number] Acct: [id number] Name: PACO WHITNEY Rep #: [id number] : 1935 89 From: Jalen Nunez CRNA PCP: Dr. Clarice Murillo MD Status:ADM IN Y Race: C Location: [place] [address] Anesthesia: Postop Eval I Current Vital Signs Temperature: 97.8 F Pulse Rate: 84 Blood Pressure: 83/58 Respiratory Rate: 16 Pulse Ox: 97 Oxygen Delivery Method: Room Air Assessment Airway patent: Yes Spontaneous unlabored respirations: Yes Mental status: Awake and Calm nausea: No Vomiting: No Anesthesia Complication: No Fluid Hydration Crystalloid volume administer (ml): 100 Total IV fluid infused: 100 Progress Note Anesthesia document: Postop Eval 1 completed: Yes 03/12/251653 Date Jalen Nunez CRNA Cosigner Signature: Date CC: Signed [facility] MR/[id number] 03-12-2025 MR/POSTOPAN2 [facility] Medical Records Department [address] [place] [address] Anesthesia Postop Eval II 03/12/25 1713 MR#: [id number] Acct: [id number] Name: PACO WHITNEY Rep #: [id number] : 1935 89 From: Erlin Vences MD PCP: Dr. Clarice Murillo MD Status:ADM IN Y Race: C Location: [place] [address] Anesthesia Postop Eval I Sum Postop Eval Completion status Anesthesia document: Postop Eval 1 completed: Yes Anesthesia Postop Eval I Summary Anesthesia Postop Eval I Summary: Anesthesia Postop Eval I: Assessment Summary Airway patent Yes 03/12/25 16:54 OPERATOR [email or web address] Spontaneous unlabored Yes 03/12/25 16:54 OPERATOR [email or web address] respirations Mental status Awake,Calm 03/12/25 16:54 OPERATOR [email or web address] nausea No 03/12/25 16:54 OPERATOR [email or web address] Vomiting No 03/12/25 16:54 [email or web address] Anesthesia Postop Eval I: Fluid Summary Crystalloid volume administer 100 03/12/25 16:54 OPERATOR [email or web address] (ml) Colloids volume administered ( ml) Blood Product volume administered (ml) Total IV fluid infused 100 03/12/25 16:54 [email or web address] Anesthesia Postop Eval I: Summary Notes Anesthesia Complication No 03/12/25 16:54 [email or web address] Anesthesia Complication Comment: Post-operative progress note Anesthesia: Postop Eval II Evaluation Mental status: Awake and Calm Pain Level: 0 nausea: No Vomiting: No Complications Anesthesia Complication: No 03/12/25 171 Date Erlin Vences MD Cosigner Signature: Date CC: Signed Normal [facility] Mean corpuscular hemoglobin (MCH) determinationOrdered By: Jaspal Prasad on 03-12-2025 MCH (RBC) [Entitic mass] 32.5 pg High 27.0-32.0 [facility] Mean corpuscular hemoglobin concentration (MCHC) determinationOrdered By: Jaspal Prasad on 03-12-2025 MCHC (RBC) [Mass/Vol] 34.4 g/dL 32-36 [facility] Mean platelet volume determi nationOrdered By: Jaspal Prasad on 03-12-2025 Platelet mean volume (Bld) [Entitic vol] 9.3 fL 6.2-12.0 [facility] Monocyte percentageOrdered B y: Jaspal Prasad on 03-12-2025 Monocytes/100 WBC (Bld) 9.7 % 0-10 [facility] Neutrophil percentageOrdered By: Jaspal Prasad on 03-12-2025 Neutrophils/100 WBC (Bld) 70.3 % High 47-70 [facility] Nucleated red blood cell per centageOrdered By: Jaspal Prasad on 03-12-2025 Nucleated RBC/100 WBC (Bld) [Ratio] 0 % 0-5 [facility] Partial Thromboplast Timeon 03-12-2025 aPTT Coag (Bld) [Time] 29.5 s Normal 24.1-36.2 [facility] Comment on above: Performed By: #### L 300.4310, L300.3900 #### [facility] Laboratory [address] [place], [address] Platelet countOrdered By: Serena Prasad on 03-12-2025 Platelets (Bld) [#/Vol] 190 10*3/uL 150-450 [facility] Potassium measurement (mass/ volume)Ordered By: Jaspal Prasad on 03-12-2025 Potassium (Unsp spec) [Mass/Vol] 4.5 mmol/L 3.3-5.1 [facility] Prothrombin Time w/INRon INR Coag (PPP) [Relative time] 1.1 {INR} Normal [facility] Comment on above: Performed By: #### L 300.4310, L300.3900 #### [facility] Laboratory [address] [place], [address] PT Coag (PPP) [Time] 14.7 s Normal 11.7-14.9 [facility] Comment on above: Performed By: #### L 300.6301, L300.3900 #### [facility] Laboratory [address] [place], [place], [address] Prothrombin timeOrdered By: Erlin Vences on 03-12-2025 PT Coag (PPP) [Time] 14.7 s 11.7-14.9 [facility] RBC Auto (Bld) [#/Vol]Ordere d By: Jaspal Prasad on 03-12-2025 RBC (Bld) [#/Vol] 3.94 10*6/uL Low 4.6-6.2 [facility] Serum creatinine measurement (mass/volume)Ordered By: Jaspal Prasad on 03-12-2025 Creatinine [Mass/Vol] 0.98 mg/dL 0.70-1.20 [facility] Serum globulin measurementOr dered By: Erlin Vences on 03-12-2025 Globulin (S) [Mass/Vol] 2.3 g/dL 2.2-4.2 [facility] Serum glucose measurement (m ass/volume)Ordered By: Jaspal Prasad on 03-12-2025 Glucose [Mass/Vol] 102 mg/dL High 70-99 [facility] Serum or plasma alanine hopkins otransferase (ALT) measurementOrdered By: Erlin Vences on 03-12-2025 ALT [Catalytic activity/Vol] 19 U/L <47 [facility] Serum or plasma albumin saige urement (mass/volume)Ordered By: Erlin Vences on 03-12-2025 Albumin [Mass/Vol] 3.4 g/dL 3.4-4.8 [facility] Serum or plasma alkaline jaki sphatase measurementOrdered By: Erlin Vences on 03-12-2025 ALP [Catalytic activity/Vol] 80 U/L 40-129 [facility] Serum or plasma calcium saige urement (mass/volume)Ordered By: Jaspal Prasad on 03-12-2025 Calcium [Mass/Vol] 9.8 mg/dL 7.6-11.0 [facility] Serum or plasma urea nitroge n measurement (mass/volume)Ordered By: Jaspal Prasad on 03-12-2025 Urea nitrogen [Mass/Vol] 22 mg/dL High 4-19 [facility] Sodium levelOrdered By: Emeka Prasad on 03-12-2025 Sodium [Moles/Vol] 137 mmol/L 133-145 [facility] Stool Occult Blood iFOBon STOB Positive Normal [facility] Comment on above: Performed By: #### L 100.0500, L500.2500 #### [facility] Laboratory [address] [place], [address] Total proteinOrdered By: Anges Vences on 03-12-2025 Protein [Mass/Vol] 5.7 g/dL Low 5.9-8.4 [facility] White blood cell (WBC) count Ordered By: Jaspal Prasad on 03-12-2025 WBC (Bld) [#/Vol] 7.8 10*3/uL 4.4-11.0 [facility] Basic Metabolic Profile (BMP )on 03-11-2025 BUN/CRE 28.9 RATIO High 10-20 [facility] Comment on above: Performed By: #### L 100.0500, L500.2500 #### [facility] Laboratory [address] [place], [address] Calcium [Mass/Vol] 9.0 mg/dL Normal 7.6-11.0 [facility] Comment on above: Performed By: #### L 100.0500, L500.2500 #### [facility] Laboratory [address] [place], [address] Chloride [Moles/Vol] 107 mmol/L Normal 98-108 [facility] Comment on above: Performed By: #### L 100.0500, L500.2500 #### [facility] Laboratory [address] [place], [address] CO2 [Moles/Vol] 22.4 mmol/L Normal 21.0-32.0 [facility] Comment on above: Performed By: #### L 100.0500, L500.2500 #### [facility] Laboratory [address] [place], [address] Creatinine [Mass/Vol] 1.02 mg/dL Normal 0.70-1.20 [facility] Comment on above: Performed By: #### L 100.0500, L500.2500 #### [facility] Laboratory [address] [place], [address] ECRCL 52.47 ml/min Normal 50-250 [facility] Comment on above: Performed By: #### L 100.0500, L500.2500 #### [facility] Laboratory [address] [place], [address] GAP 10 Normal 5-15 [facility] Comment on above: Performed By: #### L 100.0500, L500.2500 #### [facility] Laboratory [address] [place], [address] GFR/1.73 sq M.predicted among non-blacks MDRD (S/P/Bld) [Vol rate/Area] 71 mL/min/{1.73_m2} Normal >60 [facility] Comment on above: Result Comment: mL/m in/1.73m2 CKD-EPI Creatinine Equation (2020) Performed By: #### L 100.0500, L500.2500 #### [facility] Laboratory [address] [place], [address] Glucose [Mass/Vol] 88 mg/dL Normal 70-99 [facility] Comment on above: Performed By: #### L 100.0500, L500.2500 #### [facility] Laboratory [address] [place], [address] Potassium [Moles/Vol] 4.1 mmol/L Normal 3.3-5.1 [facility] Comment on above: Performed By: #### L 100.0500, L500.2500 #### [facility] [address] [place], [address] Sodium [Moles/Vol] 140 mmol/L Normal 133-145 [facility] Comment on above: Performed By: #### L 100.0500, L500.2500 #### [facility] [address] [place], [address] Urea nitrogen [Mass/Vol] 30 mg/dL High 4-19 [facility] Comment on above: Performed By: #### L 100.0500, L500.2500 #### [facility] Laboratory [address] [place], [address] CBC-Complete Blood Cnt No Di ffon 03-11-2025 Erythrocyte distribution width (RBC) [Ratio] 14.0 % Normal 11.6-14.6 [facility] Comment on above: Performed By: #### L 100.0500, L500.2500 #### [facility] Laboratory [address] [place], [address] Hematocrit (Bld) [Volume fraction] 33.7 % Low 40-54 [facility] Comment on above: Performed By: #### L 100.0500, L500.2500 #### [facility] Laboratory [address] [place], [address] Hemoglobin (Bld) [Mass/Vol] 11.5 g/dL Low 13.0-16.5 [facility] Comment on above: Performed By: #### L 100.0500, L500.2500 #### [facility] Laboratory [address] [place], [address] MCH (RBC) [Entitic mass] 32.3 pg High 27.0-32.0 [facility] Comment on above: Performed By: #### L 100.0500, L500.2500 #### [facility] Laboratory [address] [place], [address] MCHC (RBC) [Mass/Vol] 34.1 g/dL Normal 32-36 [facility] Comment on above: Performed By: #### L 100.0500, L500.2500 #### [facility] Laboratory [address] [place], [address] MCV (RBC) [Entitic vol] 94.7 fL High 80-94 [facility] Comment on above: Performed By: #### L 100.0500, L500.2500 #### [facility] Laboratory [address] [place], [address] Platelet mean volume (Bld) [Entitic vol] 9.2 fL Normal 6.2-12.0 [facility] Comment on above: Performed By: #### L 100.0500, L500.2500 #### [facility] Laboratory [address] [place], [address] Platelets (Bld) [#/Vol] 174 10*3/uL Normal 150-450 [facility] Comment on above: Performed By: #### L 100.0500, L500.2500 #### [facility] Laboratory [address] [place], [address] RBC (Bld) [#/Vol] 3.56 10*6/uL Low 4.6-6.2 [facility] Comment on above: Performed By: #### L 100.0500, L500.2500 #### [facility] [address] [place], [address] RDW SD 49.3 fl High 35.1-43.9 [facility] Comment on above: Performed By: #### L 100.0500, L500.2500 #### [facility] [address] [place], [address] WBC (Bld) [#/Vol] 7.6 10*3/uL Normal 4.4-11.0 [facility] Comment on above: Performed By: #### L 100.0500, L500.2500 #### [facility] Laboratory [address] [place], [address] Abdomen/Pelvis W IV Cont ONL Yon 03-10-2025 Abdomen/Pelvis W IV Cont ONLY [facility] Imaging Services [address] [place] [address] Abdomen/Pelvis W IV Cont ONLY MR#: [id number] Acct: [id number] Name: PACO WHITNEY Rep #: [id number] : 1935 M 89 From: Darryl Zamora DO PCP: Dr. Clarice Murillo MD Status: REG ER Study: Abdomen/Pelvis W IV Cont ONLY Date of Exam: Exam# [id number] Ordering Dr: Arturo Naranjo MD PROCEDURE: ABDOMEN/PELVIS W IV CONT ONLY 03/10/2025 REASON FOR EXAM: ABDOMINAL PAIN TECHNIQUE: ABDOMEN/PELVIS W IV CONT ONLY Coronal and Sagittal reconstruction series were provided. CONTRAST: Isovue 370 VOLUME: 75 mL One or more dose reduction techniques were used (e.g., Automated exposure control, adjustment of the mA and/or kV according to patient size, use of iterative reconstruction technique. RADIATION DOSE SUMMARY: CTDlvol: 6.65 and 22.63 mGy DLP: 1102.96 mGycm FINDINGS: Lung bases: A 3 cm right lower lobe, medial segment solid mass is identified possibly stable since the prior chest radiograph of June 29, 2018. Previous CT on June 28, 2018 showed a 2 point a cm solid mass at this location Liver: Normal Gallbladder: not detected. No cholecystectomy clips identified. Spleen: Unremarkable Pancreas: Normal Adrenals: Normal Kidneys: Bilateral cysts. Bilateral parapelvic cysts. Bladder: Normal. Reproductive Organs: Unremarkable. Bowel: Diverticulosis of transverse and descending colon sigmoid colon Appendix: Normal appendix identified. Lymph nodes: No adenopathy. Vasculature: Aortoiliac aneurysms treated with aortoiliac metallic mesh stent graft. 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 No aggressive bone lesion. CT/Abdomen/Pelvis W IV Cont ONLY IMPRESSION: No obvious GI extravasation of contrast. No source of bleeding identified. Diverticulosis without identified diverticulitis. 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 Bilateral parapelvic cysts and cortical cystic lesions in the kidneys Reading Location: [facility] CC: Dr. Arturo Naranjo MD; Dr. Clarice uMrillo MD Press Tender Star Signal: Signed Normal [facility] Absolute lymphocyte countOrd ered By: Arturo Naranjo on 03-10-2025 Lymphocytes Auto (Unsp spec) [#/Vol] 1.51 10*3/uL 0.83-4.51 [facility] Absolute neutrophil countOrd ered By: Arturo Naranjo on 03-10-2025 Neutrophils (Bld) [#/Vol] 6.3 10*3/uL 2.0-7.7 [facility] Anion gap in Serum or Plasma Ordered By: Arturo Naranjo on 03-10-2025 Anion gap [Moles/Vol] 13 mmol/L 5-15 [facility] Automated lymphocyte count a s percentage of total leukocytesOrdered By: Arturo Naranjo on 03-10-2025 Lymphocytes/100 WBC Auto (Unsp spec) 17.5 % Low 19-41 [facility] BUN/creatinine ratioOrdered By: Arturo Naranjo on 03-10-2025 Urea nitrogen/Creatinine [Mass ratio] 25.0 mg/mg High 10-20 [facility] Basophil percentageOrdered B y: Arturo Naranjo on 03-10-2025 Basophils/100 WBC (Bld) 0.8 % 0-1 [facility] Bilirubin Test strip Ql (U)O rdered By: Arturo Naranjo on 03-10-2025 Bilirubin Ql (U) Negative Negative [facility] Bilirubin, totalOrdered By: Arturo Naranjo on 03-10-2025 Bilirubin [Mass/Vol] 0.45 mg/dL 0.00-1.30 [facility] CBC W/Diff, Automatedon 02-16 Absolute Lymph 1.51 X10 3/uL Normal 0.83-4.51 [facility] Comment on above: Performed By: #### L 300.4310, L300.3900 #### [facility] Laboratory [address] [place], [address] Absolute Neut 6.3 X10 3/uL Normal 2.0-7.7 [facility] Comment on above: Performed By: #### L 300.4310, L300.3900 #### [facility] Laboratory [address] [place], [address] Basophils/100 WBC (Bld) 0.8 % Normal 0-1 [facility] Comment on above: Performed By: #### L 300.4310, L300.3900 #### [facility] [address] [place], [address] Eosinophils/100 WBC (Bld) 0.9 % Normal 0-5 [facility] Comment on above: Performed By: #### L 300.4310, L300.3900 #### [facility] [address] [place], [address] Erythrocyte distribution width (RBC) [Ratio] 14.1 % Normal 11.6-14.6 [facility] Comment on above: Performed By: #### L 300.4310, L300.3900 #### [facility] [address] [place], [address] Hematocrit (Bld) [Volume fraction] 37.7 % Low 40-54 [facility] Comment on above: Performed By: #### L 300.4310, L300.3900 #### [facility] [facility] [address] [place], [address] Hemoglobin (Bld) [Mass/Vol] 12.9 g/dL Low 13.0-16.5 [facility] Comment on above: Performed By: #### L 300.4310, L300.3900 #### [facility] [address] [place], [address] IG% 0.300 Normal 0.0-0.9 [facility] Comment on above: Result Comment: IG% - Immature Granulocytes (promyelocytes, myelocytes and metamyelocytes) > 1% indicates that a LEFT SHIFT is Present. Performed By: #### L 300.4310, L300.3900 #### [facility] [address] [place], [address] Lymphocytes/100 WBC (Bld) 17.5 % Low 19-41 [facility] Comment on above: Performed By: #### L 300.4310, L300.3900 #### [facility] [address] [place], [address] MCH (RBC) [Entitic mass] 32.3 pg High 27.0-32.0 [facility] Comment on above: Performed By: #### L 300.4310, L300.3900 #### [facility] [address] [place], [address] MCHC (RBC) [Mass/Vol] 34.2 g/dL Normal 32-36 [facility] Comment on above: Performed By: #### L 300.4310, L300.3900 #### [facility] [address] [place], [address] MCV (RBC) [Entitic vol] 94.3 fL High 80-94 [facility] Comment on above: Performed By: #### L 300.4310, L300.3900 #### [facility] [address] [place], [address] Monocytes/100 WBC (Bld) 7.2 % Normal 0-10 [facility] Comment on above: Performed By: #### L 300.4310, L300.3900 #### [facility] [address] [place], [address] Neutrophils/100 WBC (Bld) 73.3 % High 47-70 [facility] Comment on above: Performed By: #### L 300.4310, L300.3900 #### [facility] [address] [place], [address] Nucleated RBC (Bld) [#/Vol] 0 10*3/uL Normal 0-5 [facility] Comment on above: Performed By: #### L 300.4310, L300.3900 #### [facility] [address] [place], [address] Platelet mean volume (Bld) [Entitic vol] 9.4 fL Normal 6.2-12.0 [facility] Comment on above: Performed By: #### L 300.4310, L300.3900 #### [facility] [address] [place], [address] Platelets (Bld) [#/Vol] 237 10*3/uL Normal 150-450 [facility] Comment on above: Performed By: #### L 300.4310, L300.3900 #### [facility] [address] [place], [address] RBC (Bld) [#/Vol] 4.00 10*6/uL Low 4.6-6.2 [facility] Comment on above: Performed By: #### L 300.4310, L300.3900 #### [facility] [address] [place], [address] RDW SD 48.0 fl High 35.1-43.9 [facility] Comment on above: Performed By: #### L 300.4310, L300.3900 #### [facility] [address] [place], [address] WBC (Bld) [#/Vol] 8.6 10*3/uL Normal 4.4-11.0 [facility] Comment on above: Performed By: #### L 300.4310, L300.3900 #### [facility] [address] [place], [address] CBC-Complete Blood Cnt No Di ffon 03-10-2025 Erythrocyte distribution width (RBC) [Ratio] 14.0 % Normal 11.6-14.6 [facility] Comment on above: Performed By: #### L 500.2500, L100.0100 #### [facility] [address] [place], [address] Hematocrit (Bld) [Volume fraction] 36.7 % Low 40-54 [facility] Comment on above: Performed By: #### L 500.2500, L100.0100 #### [facility] [address] [place], [address] Hemoglobin (Bld) [Mass/Vol] 12.1 g/dL Low 13.0-16.5 [facility] Comment on above: Performed By: #### L 500.2500, L100.0100 #### [facility] [address] [place], [address] MCH (RBC) [Entitic mass] 31.7 pg Normal 27.0-32.0 [facility] Comment on above: Performed By: #### L 500.2500, L100.0100 #### [facility] [address] [place], [address] MCHC (RBC) [Mass/Vol] 33.0 g/dL Normal 32-36 [facility] Comment on above: Performed By: #### L 500.2500, L100.0100 #### [facility] [address] [place], [address] MCV (RBC) [Entitic vol] 96.1 fL High 80-94 [facility] Comment on above: Performed By: #### L 500.2500, L100.0100 #### [facility] [address] [place], [address] Platelet mean volume (Bld) [Entitic vol] 9.3 fL Normal 6.2-12.0 [facility] Comment on above: Performed By: #### L 500.2500, L100.0100 #### [facility] [address] [place], [address] Platelets (Bld) [#/Vol] 201 10*3/uL Normal 150-450 [facility] Comment on above: Performed By: #### L 500.2500, L100.0100 #### [facility] [address] [place], [address] RBC (Bld) [#/Vol] 3.82 10*6/uL Low 4.6-6.2 [facility] Comment on above: Performed By: #### L 500.2500, L100.0100 #### [facility] [address] [place], [address] RDW SD 49.6 fl High 35.1-43.9 [facility] Comment on above: Performed By: #### L 500.2500, L100.0100 #### [facility] [address] [place], [address] WBC (Bld) [#/Vol] 9.2 10*3/uL Normal 4.4-11.0 [facility] Comment on above: Performed By: #### L 500.2500, L100.0100 #### [facility] [address] [place], [address] Carbon dioxide, total [Moles /volume] in Central venous bloodOrdered By: Arturo Naranjo on 03-10-2025 CO2 [Moles/Vol] 20.3 mmol/L Low 21.0-32.0 [facility] [place] assayOrdered By: Benji Naranjo on 03-10-2025 Ch[place]ide [Moles/Vol] 108 mmol/L 98-108 [facility] Comprehensive Metabolic Prof ilon 03-10-2025 Albumin [Mass/Vol] 3.5 g/dL Normal 3.4-4.8 [facility] Comment on above: Performed By: #### L 300.4310, L300.3900 #### [facility] [address] [place], [address] Albumin/Globulin [Mass ratio] 1.4 {ratio} Normal 0.9-2.4 [facility] Comment on above: Performed By: #### L 300.4310, L300.3900 #### [facility] [address] [place], [address] ALK PHOS 86 U/L Normal 40-129 [facility] Comment on above: Performed By: #### L 300.4310, L300.3900 #### [facility] [address] [place], [address] ALT [Catalytic activity/Vol] 21 U/L Normal <=46 [facility] Comment on above: Performed By: #### L 300.4310, L300.3900 #### [facility] [address] [place], [address] AST [Catalytic activity/Vol] 30 U/L Normal <=37 [facility] Comment on above: Performed By: #### L 300.4310, L300.3900 #### [facility] [address] [place], [address] Bilirubin [Mass/Vol] 0.45 mg/dL Normal 0.00-1.30 [facility] Comment on above: Performed By: #### L 300.4310, L300.3900 #### [facility] [address] [place], [address] BUN/CRE 25.0 RATIO High 10-20 [facility] Comment on above: Performed By: #### L 300.4310, L300.3900 #### [facility] [address] [place], [address] Calcium [Mass/Vol] 9.6 mg/dL Normal 7.6-11.0 [facility] Comment on above: Performed By: #### L 300.4310, L300.3900 #### [facility] [address] [place], [address] Chloride [Moles/Vol] 108 mmol/L Normal 98-108 [facility] Comment on above: Performed By: #### L 300.4310, L300.3900 #### [facility] [address] [place], [address] CO2 [Moles/Vol] 20.3 mmol/L Low 21.0-32.0 [facility] Comment on above: Performed By: #### L 300.4310, L300.3900 #### [facility] [address] [place], [address] Creatinine [Mass/Vol] 1.33 mg/dL High 0.70-1.20 [facility] Comment on above: Performed By: #### L 300.4310, L300.3900 #### [facility] [address] [place], [address] ECRCL 42.96 ml/min Low 50-250 [facility] Comment on above: Performed By: #### L 300.4310, L300.3900 #### [facility] [address] [place], [address] GAP 13 Normal 5-15 [facility] Comment on above: Performed By: #### L 300.4310, L300.3900 #### [facility] [address] [place], [address] GFR/1.73 sq M.predicted among non-blacks MDRD (S/P/Bld) [Vol rate/Area] 52 mL/min/{1.73_m2} Low >60 [facility] Comment on above: Result Comment: mL/m in/1.73m2 CKD-EPI Creatinine Equation (2020) Performed By: #### L 300.4310, L300.3900 #### [facility] [address] [place], [address] Globulin (S) [Mass/Vol] 2.4 g/dL Normal 2.2-4.2 [facility] Comment on above: Performed By: #### L 300.4310, L300.3900 #### [facility] [address] [place], [address] Glucose [Mass/Vol] 127 mg/dL High 70-99 [facility] Comment on above: Performed By: #### L 300.4310, L300.3900 #### [facility] [address] [place], [address] Potassium [Moles/Vol] 4.6 mmol/L Normal 3.3-5.1 [facility] Comment on above: Performed By: #### L 300.4310, L300.3900 #### [facility] [address] [place], [address] Sodium [Moles/Vol] 141 mmol/L Normal 133-145 [facility] Comment on above: Performed By: #### L 300.4310, L300.3900 #### [facility] [address] [place], [address] T PROT 5.9 g/dL Normal 5.9-8.4 [facility] Comment on above: Performed By: #### L 300.4310, L300.3900 #### [facility] [address] [place], [address] Urea nitrogen [Mass/Vol] 33 mg/dL High 4-19 [facility] Comment on above: Performed By: #### L 300.4310, L300.3900 #### [facility] [address] [place], [address] Emergency Department Summary on 03-10-2025 Emergency Department Summary [facility] Medical Records Department [address] [place] [address] Emergency Department Summary 03/10/25 MR#: [id number] Acct: [id number] Name: PACO WHITNEY Rep #: [id number] : 1935 89 From: Arturo Naranjo MD PCP: Dr. Clarice Murillo MD Status:ADM IN Location: [place] [id number] HPI HPI - GI History of Present Illness Chief Complaint: GI Bleed Narrative Narrative: 89-year-old male past medical history of remote diverticular bleed when he was on Plavix presents with lower GI bleeding that began today. He had a family related history that his currently hospitalized. He has been going back and forth and running himself ragged. This afternoon, he felt as if he had to have a bowel movement and he had a bloody stool. He states he passed dark red blood as well as clots. He returned home and had a second bloody bowel movement. He endorses fatigue and tiredness as he has been stressed recently. States he has diffuse abdominal pain as well. He currently does not take any blood thinners, no Plavix, but he does take a baby aspirin. No exacerbating or alleviating factors. [facility] Medical History PAD (peripheral artery disease) Renal [...] inhalation Q4H PRN Sob / Or 07/05/14 03/10/25 History aerosol inhaler Wheezing ramipril 10 mg capsule 10 mg PO DAILY BP 07/05/14 5 History pantoprazole 40 mg tablet,delayed 40 mg PO DAILY gerd 08/21/1410/17 History release cholecalciferol (vitamin D3) 25 5,000 unit PO TID Supplement 11/2303/10/25 History mcg (1,000 unit) tablet tamsulosin 0.4 mg capsule 0.4 mg PO QHS Prostate 11/23/14 20:40 History budesonide-formoterol HFA 160 2 puff inhalation BID Breathing 03/10/25 08:39 History mcg-4.5 mcg/actuation aerosol inhaler fenofibrate 160 mg tablet 160 mg PO DAILY cholesterol 03/10/25 History albuterol sulfate 2.5 mg/3 mL 2.5 mg continuous nebulization Q4H 11/08/24 Unknown History (0.083 %) solution for nebulization PRN wheezing gabapentin 600 mg tablet 600 mg PO TID neuropathy 11/08/24 03/10/25 02:40 History latanoprost 0.005 % eye drops 1 drp ophthalmic (eye) DAILY 11/0803/10/25 History glaucoma Allergy/AdvReac Type Severity Reaction Status Date / Time cerivastatin sodium (From Allergy Severe Other Verified 03/10/25 15:48 Baycol) gemfibrozil (From Lopid) AdvReac Other Verified 03/10/25 15:48 meperidine (From Demerol) AdvReac Other Verified 03/10/25 15:48 Surgical History Total knee replacement status History of colonoscopy ( 03/2019) History of esophagogastroduodenoscopy (EGD) ( 03/2019) History of back surgery History of detached retina repair Status post vasectomy History of cholecystectomy History of left knee replacement History of back surgery Social History (Updated 03/10/25 @ 16:21 by April Gardner) household members: none Smoking Status: Never smoker ROS ROS ED ROS Narrative Review of systems positive for dark blood in stool as well as passage of clots. No fevers or chills. No nausea or vomiting. Positive diffuse abdominal pain. History of AAA repair. Does not take blood thinners. No exacerbating or alleviating factors. EXAM Physical Exam Narrative Exam Narrative: Afebrile. Vital signs noted. Nontoxic-appearing. Cardiovascular examination reveals a regular rate and rhythm. Lungs are clear to auscultation bilaterally. The abdomen is soft with diffuse tenderness to palpation. Positive ventral hernia. Reducible. Positive bowel sounds. Neurological examination nonfocal, nonlateralizing. Const Vital Signs: 03/10/25 15:48 03/10/25 16:48 03/10/25 18:00 Temperature 98.5 F Temperature Source Oral Pulse Rate 84 59 L 64 Respiratory Rate 18 23 H 26 H Blood Pressure 95/64 140/57 H Blood Pressure Mean 74 84 Pulse Ox 97 98 96 Oxygen Delivery Method Room Air Room Air 03/10/25 19:00 Temperature Temperature Source Pulse Rate 62 Respiratory Rate 14 Blood Pressure 118/61 Blood Pressure Mean 80 Pulse Ox 96 Oxygen Delivery Method Room Air MDM MDM MDM Mitchell (more content not included)... Normal [facility] Eosinophil percentageOrdered By: Arturo Naranjo on 03-10-2025 Eosinophils/100 WBC (Bld) 0.9 % 0-5 [facility] Erythrocyte distribution wid th ratioOrdered By: Arturo Naranjo on 03-10-2025 Erythrocyte distribution width (RBC) [Ratio] 14.1 % 11.6-14.6 [facility] Erythrocyte distribution wid th standard deviationOrdered By: Arturo Naranjo on 03-10-2025 Erythrocyte distribution width (RBC) [Ratio] 48.0 fl High 35.1-43.9 [facility] Glomerular filtration rate ( GFR) estimation/1.73 sq m using serum, plasma, or whole bOrdered By: Arturo Naranjo on 03-10-2025 GFR/1.73 sq M.predicted among non-blacks MDRD (S/P/Bld) [Vol rate/Area] 52 mL/min/{1.73_m2} Low >60 [facility] Comment on above: mL/min/1.73m2 CKD-EP I Creatinine Equation (2020) H AND P Exam - [facility] 03-10-2025 H&P Exam - Hospitalist [facility] Medical Records Department [address] [place] [address] H P Exam - Hospitalist 03/10/251920 MR#: [id number] Acct: [id number] Name: PACO WHITNEY Rep #: [id number] : 1935 89 From: Miller Vides DO PCP: Dr. Clarice Murillo MD Status:ADM IN Location: [facility] [id number] HPI - General General Date of Admission: 03/10/25 Date of Service: 03/10/25 Chief Complaint: Lower GI bleed HPI Narrative PACO WHITNEY, is a 89 M who presented to [facility] ED on 03/10/2025 with lower GI bleed. Medical history significant for diverticulosis with diverticular bleeds. Last diverticular bleed was back in 2019. He presented with bright red blood per rectum with significant clots. Colonoscopy showed diverticulosis in the entire examined colon with blood in the sigmoid colon, no active signs of bleeding. Patient notes that his was hospitalized here this week and is now at [facility], and he has been on his normal routine and frequently going back and forth from home to the hospital and now [facility]. He has also been eating out with more meals over that timeframe. This afternoon while he was out of the house, he fell again to have an urgent bowel movement and went to the bathroom and had a bloody stool. He then went home and had another bloody bowel movement, so he came in for further evaluation. In the ED he had a third bright red stool. He was normotensive and hemodynamically stable on room air. Hemoglobin 12.9, baseline 12-13. BMP with creatinine 1.33, baseline 1.1-1.2. CT abdomen pelvis showed diverticulosis with no source of bleeding identified. Given the multiple episodes of BRBPR and history of diverticular hemorrhage, hospitalist was contacted for admission. I saw the patient at bedside in the ED, family members were present. Patient was mildly fatigued appearing but otherwise sitting back comfortably in bed, conversing normally, in no acute distress. Patient was alert and oriented x 3 and is mentally sharp for his age. Had mild left lower quadrant abdominal pain but otherwise denies any other pain or discomfort. No other acute concerns currently. Will be admitted for further management. [facility] Medical History PAD (peripheral artery disease) Renal [...] inhalation Q4H PRN Sob / Or 07/05/14 03/10/25 History aerosol inhaler Wheezing ramipril 10 mg capsule 10 mg PO DAILY BP 07/05/14 5 History pantoprazole 40 mg tablet,delayed 40 mg PO DAILY gerd 08/21/1410/17 History release cholecalciferol (vitamin D3) 25 5,000 unit PO TID Supplement 11/2303/10/25 History mcg (1,000 unit) tablet tamsulosin 0.4 mg capsule 0.4 mg PO QHS Prostate 11/23/14 20:40 History budesonide-formoterol HFA 160 2 puff inhalation BID Breathing 03/10/25 08:39 History mcg-4.5 mcg/actuation aerosol inhaler fenofibrate 160 mg tablet 160 mg PO DAILY cholesterol 03/10/25 History albuterol sulfate 2.5 mg/3 mL 2.5 mg continuous nebulization Q4H 11/08/24 Unknown History (0.083 %) solution for nebulization PRN wheezing gabapentin 600 mg tablet 600 mg PO TID neuropathy 11/08/24 03/10/25 02:40 History latanoprost 0.005 % eye drops 1 drp ophthalmic (eye) DAILY 11/0803/10/25 History glaucoma Allergy/AdvReac Type Severity Reaction Status Date / Time cerivastatin sodium (From Allergy Severe Other Verified 03/10/25 15:48 Baycol) gemfibrozil (From Lopid) AdvReac Other Verified 03/10/25 15:48 meperidine (From Demerol) AdvReac Other Verified 03/10/25 15:48 Surgical History Total knee replacement status History of colonoscopy ( 03/2019) History of esophagogastroduodenoscopy (EGD) ( 03/2019) History of back surgery History of detached retina repair Status post vasectomy History of cholecystectomy History of left knee replacement History of back surgery Social History (Updated 03/10/25 @ 16:21 by April Gardner) household members: none Smoking Status: Never smoker ROS Constitutional Constitutional: Reports fatigue; Denies chills, fever(s) or weakness Cardiovascular Cardiovascular: Denies chest pain Respiratory/Chest R (more content not included)... Normal [facility] Hematocrit Auto (Bld) [Volum e fraction]Ordered By: Arturo Naranjo on 03-10-2025 Hematocrit (Bld) [Volume fraction] 37.7 % Low 40-54 [facility] Hemoglobin measurementOrdere d By: Arturo Naranjo on 03-10-2025 Hemoglobin (Bld) [Mass/Vol] 12.9 g/dL Low 13.0-16.5 [facility] Immature granulocytes/100 WB C Auto (Bld)Ordered By: Arturo Naranjo on 03-10-2025 Immature granulocytes/100 WBC (Bld) 0.300 % 0.0-0.9 [facility] Comment on above: IG% - Immature Granu locytes (promyelocytes, myelocytes and metamyelocytes) > 1% indicates that a LEFT SHIFT is Present. Ketones Test strip Ql (U)Ord ered By: Arturo Naranjo on 03-10-2025 Ketones Ql (U) Negative Negative [facility] - Chemistry and C hemistry - challengeOrdered By: Arturo Naranjo on 03-10-2025 AST [Catalytic activity/Vol] 30 U/L <38 [facility] Lipaseon 03-10-2025 Lipase [Catalytic activity/Vol] 71 U/L Normal 13-75 [facility] Comment on above: Result Comment: Fabiola harris note: LIPASE revised reference range effective 22. New Lipase methodology. Expected to produce lower values than the previous assay method. NEW Reference Range: 13 - 75 U/L Performed By: #### L 300.4310, L300.3900 #### [facility] [place], [address] Lipase measurementOrdered By : Arturo Naranjo on 03-10-2025 Lipase [Catalytic activity/Vol] 71 U/L 13-75 [facility] Comment on above: Please note:LIPASE r evised reference range effective 22. New Lipase methodology. Expected to produce lower values than the previous assay method. NEW Reference Range: 13 - 75 U/L MCV (mean corpuscular volume ) determinationOrdered By: Arturo Naranjo on 03-10-2025 MCV (RBC) [Entitic vol] 94.3 fL High 80-94 [facility] Mean corpuscular hemoglobin (MCH) determinationOrdered By: Arturo Naranjo on 03-10-2025 MCH (RBC) [Entitic mass] 32.3 pg High 27.0-32.0 [facility] Mean corpuscular hemoglobin concentration (MCHC) determinationOrdered By: Arturo Naranjo on 03-10-2025 MCHC (RBC) [Mass/Vol] 34.2 g/dL 32-36 [facility] Mean platelet volume determi nationOrdered By: Arturo Naranjo on 03-10-2025 Platelet mean volume (Bld) [Entitic vol] 9.4 fL 6.2-12.0 [facility] Microscopic analysis of urin e for red blood cells (RBC)Ordered By: Arturo Naranjo on 03-10-2025 Microscopic analysis of urine for red blood cells (RBC) 0-5 SEEN /hpf 0-5 [facility] Monocyte percentageOrdered B y: Arturo Naranjo on 03-10-2025 Monocytes/100 WBC (Bld) 7.2 % 0-10 [facility] Mucus LM Ql (Urine sed)Order ed By: Arturo Naranjo on 03-10-2025 Mucus Ql (Urine sed) 0 SEEN /hpf [facility] Neutrophil percentageOrdered By: Arturo Naranjo on 03-10-2025 Neutrophils/100 WBC (Bld) 73.3 % High 47-70 [facility] Nitrite Test strip Ql (U)Ord ered By: Arturo Naranjo on 03-10-2025 Nitrite Ql (U) Negative Negative [facility] Nucleated red blood cell per centageOrdered By: Arturo Naranjo on 03-10-2025 Nucleated RBC/100 WBC (Bld) [Ratio] 0 % 0-5 [facility] Platelet countOrdered By: Benji Naranjo on 03-10-2025 Platelets (Bld) [#/Vol] 237 10*3/uL 150-450 [facility] Potassium measurement (mass/ volume)Ordered By: Arturo Naranjo on 03-10-2025 Potassium (Unsp spec) [Mass/Vol] 4.6 mmol/L 3.3-5.1 [facility] Protein Test strip Ql (U)Ord ered By: Arturo Naranjo on 03-10-2025 Protein Ql (U) 30 mg/dl High Negative [facility] RBC Auto (Bld) [#/Vol]Ordere d By: Arturo Naranjo on 03-10-2025 RBC (Bld) [#/Vol] 4.00 10*6/uL Low 4.6-6.2 [facility] Serum creatinine measurement (mass/volume)Ordered By: Arturo Naranjo on 03-10-2025 Creatinine [Mass/Vol] 1.33 mg/dL High 0.70-1.20 [facility] Serum globulin measurementOr dered By: Arturo Naranjo on 03-10-2025 Globulin (S) [Mass/Vol] 2.4 g/dL 2.2-4.2 [facility] Serum glucose measurement (m ass/volume)Ordered By: Arturo Naranjo on 03-10-2025 Glucose [Mass/Vol] 127 mg/dL High 70-99 [facility] Serum or plasma alanine hopkins otransferase (ALT) measurementOrdered By: Arturo Naranjo on 03-10-2025 ALT [Catalytic activity/Vol] 21 U/L <47 [facility] Serum or plasma albumin saige urement (mass/volume)Ordered By: Arturo Naranjo on 03-10-2025 Albumin [Mass/Vol] 3.5 g/dL 3.4-4.8 [facility] Serum or plasma albumin/glob ulin mass ratioOrdered By: Arturo Naranjo on 03-10-2025 Albumin/Globulin [Mass ratio] 1.4 {ratio} 0.9-2.4 [facility] Serum or plasma alkaline jaki sphatase measurementOrdered By: Arturo Naranjo on 03-10-2025 ALP [Catalytic activity/Vol] 86 U/L 40-129 [facility] Serum or plasma calcium saige urement (mass/volume)Ordered By: Arturo Naranjo on 03-10-2025 Calcium [Mass/Vol] 9.6 mg/dL 7.6-11.0 [facility] Serum or plasma urea nitroge n measurement (mass/volume)Ordered By: Arturo Naranjo on 03-10-2025 Urea nitrogen [Mass/Vol] 33 mg/dL High 4-19 [facility] Sodium levelOrdered By: Arturo Naranjo on 03-10-2025 Sodium [Moles/Vol] 141 mmol/L 133-145 [facility] Squamous epithelial cells de tection in urine sediment by light microscopyOrdered By: Arturo Naranjo on 03-10-2025 Epithelial cells.squamous LM Ql (Urine sed) 0-5 SEEN /hpf 0-5 [facility] Stool gastrointestinal hemog lobin detection by immunologic methodOrdered By: Arturo Naranjo on 03-10-2025 Lower GI hemoglobin IA Ql (Stl) Positive Abnormal [facility] Total proteinOrdered By: Ora Naranjo on 03-10-2025 Protein [Mass/Vol] 5.9 g/dL 5.9-8.4 [facility] Urinalysis, Completeon 03-10 EPI,SQUAMOUS 0-5 SEEN Normal 0-5 [facility] Comment on above: Order Comment: HARDY CTOR TO SPECIFY Performed By: #### L 300.4310, L300.3900 #### [facility] [address] [place], [address] RBC 0-5 SEEN Normal 0-5 [facility] Comment on above: Order Comment: HARDY CTOR TO SPECIFY Performed By: #### L 300.4310, L300.3900 #### [facility] [address] [place], [address] WBC 0-5 SEEN Normal 0-5 [facility] Comment on above: Order Comment: HARDY CTOR TO SPECIFY Performed By: #### L 300.4310, L300.3900 #### [facility] [address] [place], [address] BACTERIA 0 SEEN Normal None Seen [facility] Comment on above: Order Comment: HARDY CTOR TO SPECIFY Performed By: #### L 300.4310, L300.3900 #### [facility] [address] [place], [address] Mucus Ql (Urine sed) 0 SEEN Normal [facility] Comment on above: Order Comment: HARDY CTOR TO SPECIFY Performed By: #### L 300.4310, L300.3900 #### [facility] [address] [place], [address] Urine clarityOrdered By: Ora Naranjo on 03-10-2025 Clarity (U) Clear Clear [facility] Urine color determinationOrd ered By: Arturo Naranjo on 03-10-2025 Color (U) Straw Yellow [facility] Urine glucose detectionOrder ed By: Arturo Naranjo on 03-10-2025 Glucose Ql (U) Normal mg/dl Normal [facility] Urine leukocyte esterase det ection by dipstickOrdered By: Arturo Naranjo on 03-10-2025 Leukocyte esterase Test strip Ql (U) Negative Negative [facility] Urine pHOrdered By: Arturo lau on 03-10-2025 pH (U) 7.0 [pH] 5.0 - 8.0 [facility] Urine sediment bacteria coun t by microscopy (number/high power field)Ordered By: Arturo Naranjo on 03-10-2025 Bacteria LM.HPF (Urine sed) [#/Area] 0 /[HPF] None Seen [facility] Urine specific gravity measu rementOrdered By: Arturo Naranjo on 03-10-2025 Specific gravity (U) [Rel density] 1.010 1.002-1.03 0 [facility] Urine urobilinogen measureme ntOrdered By: Arturo Naranjo on 03-10-2025 Urobilinogen Ql (U) 1 mg/dl High Normal [facility] White blood cell (WBC) count Ordered By: Arturo Naranjo on 03-10-2025 WBC (Bld) [#/Vol] 8.6 10*3/uL 4.4-11.0 [facility] White blood cell countOrdere d By: Arturo Naranjo on 03-10-2025 White blood cell count 0-5 SEEN /hpf 0-5 [facility] Crystals, Body Fluidon 03-06 PATH REV Reviewed Normal [facility] Comment on above: Order Comment: Commmicaela nts: Left wrist aspirateComments: Left wrist aspirateReviewed by Dr. Fletcher.Sammie Fletcher MD 03/06/2025 Performed By: #### L 500.2500, L100.0100 #### [facility] [address] [place], [address] Synovial Fluid RBC, WBC AND Diffon 02-26-2025 PATH COM/SYFL Reviewed Normal [facility] Comment on above: Order Comment: Gina nts: Left wrist aspirateComments: Left wrist aspirate Result Comment: NEGA TIVE FOR CRYST[employer]. Sammie Fletcher MD 02/25/2025 AMENDED REPORT 02/26/25 0848 PATH COM/SYFL previously reported as: May follow Performed By: #### L 500.2500, L100.0100 #### [facility] [address] [place], [place], [address] CNOVon 02-22-2025 CNOV Office Visit (MALINDA ) PACO WHITNEY ([id number]) 1935 Melanie Date Time Provider Department 02/22/25 1:00 PM YNES SOUZA During your visit today, we recorded the following information about you: Mary Wagner MA 02/22/2025 1:42 PM Signed AMB ROOMING INTAKE FLOWSHEET DATA Pain Pain Level: 2 (as high as 10) Pain Location: (bilateral shoulders) Description: Aching, Sharp, Dull Duration Amount of Time: (ongoing) Frequency: Continuous Intervention/Comfort measure: Medication Ynes Souza PA-C 02/22/2025 1:42 PM Signed Ynes Souza PA-C Department of Orthopaedics Orthopaedics [address] [facility] [address] Dept: [phone] Dept February 22, 2025 CHIEF COMPLAINT: Pain [...] (M17.11) - Chronic right knee OA, likely [id number]. - Ordered new X-rays of the right [...] these instructions. Informed Consent Consent Obtained: Verbal [place] Protocol A moment to CARE was complete (more content not included)... Normal [facility] XR KNEE 4V AP/PA BOTH+LAT/ME R [...] medial and patellofemoral joint compartment narrowing with xyrc-tz-pzqh appearance and tricompartment spur formation. Chondrocalcinosis. No fracture or dislocation. Small joint effusion. Advanced vascular calcifications. Significant varus angulation. IMPRESSION: Advanced osteoarthrosis Press Tender Star Signal: [facility] Transcribe Date/Time: Feb 24 2025 5:22P Dictated by : SKYLAR JAIN MD This examination was interpreted and the report reviewed and electronically signed by: SKYLAR JAIN MD on Feb 24 2025 5:23PM EST [id number] Normal [facility] CNOVon 02-05-2025 CNOV Office Visit (FAMPWS ) PACO WHITNEY Josefina ([id number]) 1935 M Date Time Provider Department 02/05/25 3:00 PM [facility] During your visit today, we recorded the following information about you: Pulse Respiration Blood pressure Weight 76/minute 16/minute 110/68 86.4 kg Clarice Murillo MD 02/05/2025 3:42 PM Signed Chief Complaint Patient presents with: 6 Month Exam HPI Paco Rocha Devonte is a 89 year old male who presents here today for 6 month follow up. Pt recently discharged from [facility] to SNF as pt is not able to care for pt any longer. 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 Romeo RPR RETINAL DTCHMNT DRG SUBRETINAL FLUID PC 2004 Laser repair retinal detach, right eye TONSILLECTOMY [...] tamsulosin ( (more content not included)... Normal [facility] XR SHLDR >/=3V AP/TIA AP/OTH R [...] are unremarkable. IMPRESSION: Advanced bilateral glenohumeral osteoarthritis. Press Tender Star Signal: [facility] Transcribe Date/Time: Feb 08 2025 7:55A Dictated by : FRANCIA EDEN MD This examination was interpreted and the report reviewed and electronically signed by: FRANCIA EDEN MD on Feb 08 2025 7:56AM EST [id number] Normal [facility] XR SHLDR >/=3V AP/TIA AP/OTH R [...] are unremarkable. IMPRESSION: Advanced bilateral glenohumeral osteoarthritis. Press Tender Star Signal: [facility] Transcribe Date/Time: Feb 08 2025 7:55A Dictated by : FRANCIA EDEN MD This examination was interpreted and the report reviewed and electronically signed by: FRANCIA EDEN MD on Feb 08 2025 7:56AM EST [id number] Normal [facility] Comprehensive metabolic 2000 panelon 01-30-2025 Albumin [Mass/Vol] 3.8 g/dL Low 3.9-4.[address] [facility] Comment on above: Order Comment: Speci men Type: BLOOD SPECIMENOrdering Facility: [facility] Address: [address] [place] [address] Performed By: #### 2 4323-8, 96964-3 ####[facility] LABCLIA [id number] [place] [address] [place] ALP [Catalytic activity/Vol] 91 U/L Normal 38-113 [facility] Comment on above: Order Comment: Speci men Type: BLOOD SPECIMENOrdering Facility: [facility] Address: [address] [place] [address] Performed By: #### 2 4323-8, 23912-7 ####[facility] LABCLIA [id number] [place] [address] [place] ALT [Catalytic activity/Vol] 15 U/L Normal 10-54 [facility] Comment on above: Order Comment: Speci men Type: BLOOD SPECIMENOrdering Facility: [facility] Address: [address] [place] [address] Performed By: #### 2 4323-8, 41457-8 ####[facility] LABCLIA [id number] [place] [id number] [place] Anion gap [Moles/Vol] 10 mmol/L Normal 8-15 [facility] Comment on above: Order Comment: Speci men Type: BLOOD SPECIMENOrdering Facility: [facility] Address: [address] [place] [address] Performed By: #### 2 4323-8, 33744-7 ####[facility] LABCLIA [id number] [address] [address] [place] AST [Catalytic activity/Vol] 29 U/L Normal 14-40 [facility] Comment on above: Order Comment: Speci men Type: BLOOD SPECIMENOrdering Facility: [facility] Address: [address] [place] [address] Performed By: #### 2 4323-8, 41032-4 ####[facility] LABIA [id number] [place] [address] [place] Bilirubin [Mass/Vol] 0.9 mg/dL Normal 0.2-1.3 [facility] Comment on above: Order Comment: Speci men Type: BLOOD SPECIMENOrdering Facility: [facility] Address: [address] [place] [address] Performed By: #### 2 4323-8, 29046-1 ####[facility] LABIA [id number] [place] [address] [place] Calcium [Mass/Vol] 10.2 mg/dL Normal 8.5-10.[address] [facility] Comment on above: Order Comment: Speci men Type: BLOOD SPECIMENOrdering Facility: [facility] Address: [address] [place] [address] Performed By: #### 2 4323-8, 83053-4 ####[facility] LABIA [id number] [place] [address] [place] Chloride [Moles/Vol] 107 mmol/L Normal 98-107 [facility] Comment on above: Order Comment: Speci men Type: BLOOD SPECIMENOrdering Facility: [facility] Address: [address] [place] [address] Performed By: #### 2 4323-8, 76517-9 ####[facility] LABIA [id number] [place] [id number] [place] CO2 [Moles/Vol] 25 mmol/L Normal 22-30 [facility] Comment on above: Order Comment: Speci men Type: BLOOD SPECIMENOrdering Facility: [facility] Address: [address] [place] [address] Performed By: #### 2 4323-8, 30274-8 ####[facility] LABCLIA [id number] [address] [address] [place] Creatinine [Mass/Vol] 1.11 mg/dL Normal 0.73-1.22 [facility] Comment on above: Order Comment: Speci men Type: BLOOD SPECIMENOrdering Facility: [facility] Address: [address] [place] [address] Performed By: #### 2 4323-8, ####[facility] LABCLIA [id number] [place] [address] [place] eGFRcr SerPlBld CKD-EPI 2020 64 mL/min/1.73m??? Normal >=60 [facility] Comment on above: Order Comment: Speci men Type: BLOOD SPECIMENOrdering Facility: [facility] Address: [address] [place] [address] Result Comment: Toya mated Glomerular Filtration Rate [...] actual GFR. Performed By: #### 2 4323-8, 09101-6 ####[facility] LABCLIA [id number] [place] [id number] [place] Glucose [Mass/Vol] 90 mg/dL Normal 74-[address] [facility] Comment on above: Order Comment: Speci men Type: BLOOD SPECIMENOrdering Facility: [facility] Address: [address] [place] [address] Result Comment: The British Diabetes Association (ADA) provides guidance for cutoff [...] Standards of Medical Care in Diabetes 2016, British Diabetes Association. Diabetes Care. 2016.39(Suppl 1). Performed By: #### 2 4323-8, 65936-2 ####[facility] LABIA [id number] [place] [address] [place] Potassium [Moles/Vol] 4.8 mmol/L Normal 3.7-5.1 [facility] Comment on above: Order Comment: Speci men Type: BLOOD SPECIMENOrdering Facility: [facility] Address: [address] [place] [address] Performed By: #### 2 4323-8, 00498-5 ####[facility] LABIA [id number] [place] [address] [place] Protein [Mass/Vol] 6.5 g/dL Normal 6.3-8.[address] [facility] Comment on above: Order Comment: Speci men Type: BLOOD SPECIMENOrdering Facility: [facility] Address: [address] [place] [address] Performed By: #### 2 4323-8, 10563-4 ####[facility] LABIA [id number] [place] [id number] [place] Sodium [Moles/Vol] 142 mmol/L Normal 136-[address] [facility] Comment on above: Order Comment: Speci men Type: BLOOD SPECIMENOrdering Facility: [facility] Address: [address] [place] [address] Performed By: #### 2 4323-8, 43484-7 ####[facility] LABCLIA [id number] [place] [address] [place] Urea nitrogen [Mass/Vol] 29 mg/dL High 9-24 [facility] Comment on above: Order Comment: Zach vinson Type: BLOOD SPECIMENOrdering Facility: [facility] Address: [address] [place] [address] Performed By: #### 2 4323-8, 56985-4 ####[facility] LABCLIA [id number] [place] [address] [place] HbA1c (Bld)on 01-30-2025 Average glucose Estimated from glycated hemoglobin (Bld) [Mass/Vol] 88 mg/dL Normal [facility] Comment on above: Order Comment: [facility] Type: BLOOD SPECIMEN [facility] Address: [address] [place] [address] Result Comment: eAG: (Estimated average glucose) is a calculated value from HgbA1c and is quality control representative of the average blood glucose level in the last 2-3 month period. Performed By: #### 5 5454-3 #### [facility] LAB CLIA [id number] [address] [place] [address] [place] HbA1c (Bld) [Mass fraction] 4.7 % Normal 4.3-5.6 [facility] Comment on above: Order Comment: Maryi [facility] Type: BLOOD SPECIMEN [facility] Address: [address] [place] [address] Result Comment: Amer ican Diabetes Association guidelines indicate that patients with HgbA1c in the range 5.7-6.4% are at increased risk for development of diabetes, and intervention by lifestyle modification may be beneficial. HgbA1c greater or equal to 6.5% is considered diagnostic of diabetes. Performed By: #### 5 5454-3 #### [facility] CLIA [id number] [address] [place] [address] [place] Lipid 1996 panelon 5 Cholesterol [Mass/Vol] 143 mg/dL Normal <200 [facility] Comment on above: Order Comment: Speci men Type: BLOOD SPECIMENOrdering Facility: [facility] Address: [address] [place] [address] Result Comment: <200 mg/dL, Desirable 200-239 mg/dL, Borderline high >239 mg/dL, High Performed By: #### 2 4323-8, 15353-4 ####[facility] LABCLIA [id number] [facility] [address] [place] [address] [place] Cholesterol in HDL [Mass/Vol] 29 mg/dL Low >39 [facility] Comment on above: Order Comment: Speci men Type: BLOOD SPECIMENOrdering Facility: [facility] Address: [address] [place] [address] Result Comment: 40-5 9 mg/dL, Acceptable >59 mg/dL, High: Negative risk factor for coronary heart disease <40 mg/dL, Low: Positive risk factor for coronary heart disease Performed By: #### 2 4323-8, 00382-1 ####[facility] LABCLIA [id number] [address], [facility] [place] Cholesterol in LDL [Mass/Vol] 86 mg/dL Normal <100 [facility] Comment on above: Order Comment: Speci men Type: BLOOD SPECIMENOrdering Facility: [facility] Address: [address] [place] [address] Result Comment: <100 mg/dL, Optimal 100-129 mg/dL, Near optimal/above optimal 130-159 mg/dL, Borderline high 160-189 mg/dL, High >189 mg/dL, Very high Secondary prevention optimal LDL Cholesterol levels are recommended to be <70 mg/dL LDL cholesterol is calculated using the Torres-NIH equation. Performed By: #### 2 4323-8, 74624-9 ####[facility] LABCLIA [id number] [facility] [place] [id number] [address] [place] Cholesterol in LDL/Cholesterol in HDL [Mass ratio] 2.97 {ratio} High <2.54 [facility] Comment on above: Order Comment: Speci men Type: BLOOD SPECIMENOrdering Facility: [facility] Address: [address] [place] [address] Result Comment: Arnoldo ross: 1. National Cholesterol Education Program ATP III Guideline At-A-Glance Quick Desk Reference: National Heart, Lung, and Blood [place]. National Institutes of Health. 2001: NIH Publication No. 01-3305. 2. An International Atherosclerosis Society position paper: global recommendations for the management of dyslipidemia: executive summary, Atherosclerosis. 2014: 232(2):410-413. Performed By: #### 2 4323-8, 81033-0 ####[facility] LABCLIA [id number] [place] [address] [place] Cholesterol in VLDL [Mass/Vol] 25 mg/dL Normal <30 [facility] Comment on above: Order Comment: Maryi karel Type: BLOOD SPECIMENOrdering Facility: [facility] Address: [address] [place] [address] Performed By: #### 2 4323-8, 82162-5 ####[facility] LABCLIA [id number] [place] [address] [place] Cholesterol non HDL [Mass/Vol] 114 mg/dL Normal <130 [facility] Comment on above: Order Comment: Marychichi vinson Type: BLOOD SPECIMENOrdering Facility: [facility] Address: [address] [place] [address] Result Comment: <130 mg/dL, Optimal 130-159 mg/dL, Near optimal/above optimal 160-189 mg/dL, Borderline high 190-219 mg/dL, High >219 mg/dL, Very high Secondary prevention optimal non HDL Cholesterol levels are recommended to be <100 mg/dL Performed By: #### 2 4323-8, 32859-0 ####[facility] LABCLIA [id number] [address] [address] [place] Cholesterol.total/Chol esterol in HDL [Mass ratio] 4.93 {ratio} Normal <5.10 [facility] Comment on above: Order Comment: Speci men Type: BLOOD SPECIMENOrdering Facility: [facility] Address: [address] [place] [address] Performed By: #### 2 4323-8, 33106-1 ####[facility] LABCLIA [id number] [address] [address] [place] FASTING TIME 12 hrs Normal [facility] Comment on above: Order Comment: Speci men Type: BLOOD SPECIMENOrdering Facility: [facility] Address: [address] [place] [address] Performed By: #### 2 4323-8, 13287-7 ####[facility] LABCLIA [id number] [address] [address] [place] Triglyceride [Mass/Vol] 158 mg/dL High <150 [facility] Comment on above: Order Comment: Speci men Type: BLOOD SPECIMENOrdering Facility: [facility] Address: [address] [place] [address] Result Comment: <150 mg/dL, Normal 150-199 mg/dL, Borderline high 200-499 mg/dL, High >499 mg/dL, Very high Performed By: #### 2 4323-8, 62788-1 ####[facility] LABCLIA [id number] [address] [address] [place] Body Fluid Culton 11-14-2024 BFC Left wrist aspirate No growth aerobically. Normal [facility] Comment on above: Performed By: #### L 100.0500, L500.2500 #### [facility] [address] [facility] [facility] [address] [place], [place], [id number] Plastic Surgery Visit Report on 11-13-2024 Plastic Surgery Visit Report [facility] Plastic Reconstructive Surgery [address] [place] [address] OFFICE VISIT Date of Service: 11/13/24 MR#: [id number] Acct: [id number] Name: PACO WHITNEY Rep #: [id number] : 1935 Provider: Dr. Dennis Rocha MD Age/Sex: 89/M Location: [place] [address] Status: Signed Intake Vital Signs 3 11/08/24 [...] is a an 89-year-old male admitted to [facility] on 08 November 2024 for left hand [...] Clinical Qu (more content not included)... Normal [facility] Basic Metabolic Profile (BMP )on 11-11-2024 BUN Normal 4-19 [facility] Comment on above: Result Comment: Canc elled via OM: Order cancelled - Patient discharged Performed By: #### L 500.2500, L100.0100 #### [facility] [address] [facility] [address] BUN/CRE Normal 10-20 [facility] Comment on above: Result Comment: Canc elled via OM: Order cancelled - Patient discharged Performed By: #### L 500.2500, L100.0100 #### [facility] [address] [facility] [address] Calcium Normal 7.6-11.0 [facility] Comment on above: Result Comment: Canc elled via OM: Order cancelled - Patient discharged Performed By: #### L 500.2500, L100.0100 #### [facility] [address] [place], [address] CL Normal 98-108 [facility] Comment on above: Result Comment: Canc elled via OM: Order cancelled - Patient discharged Performed By: #### L 500.2500, L100.0100 #### [facility] [address] [facility] [address] CO2 Normal 21.0-32.0 [facility] Comment on above: Result Comment: Canc elled via OM: Order cancelled - Patient discharged Performed By: #### L 500.2500, L100.0100 #### [facility] [address] [place], [address] CREAT,SERUM Normal 0.70-1.20 [facility] Comment on above: Result Comment: Canc elled via OM: Order cancelled - Patient discharged Performed By: #### L 500.2500, L100.0100 #### [facility] [address] [place], [address] eGFR Normal >60 [facility] Comment on above: Result Comment: Canc elled via OM: Order cancelled - Patient discharged Performed By: #### L 500.2500, L100.0100 #### [facility] [address] [place], [address] GAP Normal 5-15 [facility] Comment on above: Result Comment: Canc elled via OM: Order cancelled - Patient discharged Performed By: #### L 500.2500, L100.0100 #### [facility] [address] [place], [address] GLU Normal 70-99 [facility] Comment on above: Result Comment: Canc elled via OM: Order cancelled - Patient discharged Performed By: #### L 500.2500, L100.0100 #### [facility] [address] [place], [address] Potassium Normal 3.3-5.1 [facility] Comment on above: Result Comment: Canc elled via OM: Order cancelled - Patient discharged Performed By: #### L 500.2500, L100.0100 #### [facility] [address] [place], [address] Basic Metabolic Profile (BMP) Normal 133-145 [facility] Comment on above: Result Comment: Canc elled via OM: Order cancelled - Patient discharged Performed By: #### L 500.2500, L100.0100 #### [facility] [address] [place], [address] CBC W/Diff, Automatedon 04-2 Absolute Neut Normal 2.0-7.7 [facility] Comment on above: Result Comment: Canc elled via OM: Order cancelled - Patient discharged Performed By: #### L 500.2500, L100.0100 #### [facility] [address] [place], [address] HCT Normal 40-54 [facility] Comment on above: Result Comment: Canc elled via OM: Order cancelled - Patient discharged Performed By: #### L 500.2500, L100.0100 #### [facility] [address] [place], [address] HGB Normal 13.0-16.5 [facility] Comment on above: Result Comment: Canc elled via OM: Order cancelled - Patient discharged Performed By: #### L 500.2500, L100.0100 #### [facility] [address] [place], [address] MCH Normal 27.0-32.0 [facility] Comment on above: Result Comment: Canc elled via OM: Order cancelled - Patient discharged Performed By: #### L 500.2500, L100.0100 #### [facility] [address] [place], [address] MCHC Normal 32-36 [facility] Comment on above: Result Comment: Canc elled via OM: Order cancelled - Patient discharged Performed By: #### L 500.2500, L100.0100 #### [facility] [address] [place], [address] MCV Normal 80-94 [facility] Comment on above: Result Comment: Canc elled via OM: Order cancelled - Patient discharged Performed By: #### L 500.2500, L100.0100 #### [facility] [address] [place], [address] NEUT% Normal 47-70 [facility] Comment on above: Result Comment: Canc elled via OM: Order cancelled - Patient discharged Performed By: #### L 500.2500, L100.0100 #### [facility] [address] [place], [address] PLT Normal 150-450 [facility] Comment on above: Result Comment: Canc elled via OM: Order cancelled - Patient discharged Performed By: #### L 500.2500, L100.0100 #### [facility] [address] [place], [address] RBC Normal 4.6-6.2 [facility] Comment on above: Result Comment: Canc elled via OM: Order cancelled - Patient discharged Performed By: #### L 500.2500, L100.0100 #### [facility] [address] [place], [address] RDW CV Normal 11.6-14.6 [facility] Comment on above: Result Comment: Canc elled via OM: Order cancelled - Patient discharged Performed By: #### L 500.2500, L100.0100 #### [facility] [address] [place], [address] RDW SD Normal 35.1-43.9 [facility] Comment on above: Result Comment: Canc elled via OM: Order cancelled - Patient discharged Performed By: #### L 500.2500, L100.0100 #### [facility] [address] [place], [address] WBC Normal 4.4-11.0 [facility] Comment on above: Result Comment: Canc elled via OM: Order cancelled - Patient discharged Performed By: #### L 500.2500, L100.0100 #### [facility] [address] [place], [address] Culture, Anaerobic Any Sourc sayda 11-11-2024 CUAN Left wrist aspirate No anaerobic bacteria isolated. Normal [facility] Comment on above: Performed By: #### L 500.2500, L100.0100 #### [facility] [address] [place], [address] Absolute lymphocyte countOrd ered By: Riky Li on 11-10-2024 Lymphocytes Auto (Unsp spec) [#/Vol] 1.91 10*3/uL 0.83-4.51 [facility] Absolute neutrophil countOrd ered By: [facility] Guillermo on 11-10-2024 Neutrophils (Bld) [#/Vol] 4.9 10*3/uL 2.0-7.7 [facility] Anion gap in Serum or Plasma Ordered By: Rikyhina Li on 11-10-2024 Anion gap [Moles/Vol] 9 mmol/L 5-15 [facility] Automated lymphocyte count a s percentage of total leukocytesOrdered By: Riky Li on 11-10-2024 Lymphocytes/100 WBC Auto (Unsp spec) 24.1 % 19-41 [facility] BUN/creatinine ratioOrdered By: Rikyglen Li on 11-10-2024 Urea nitrogen/Creatinine [Mass ratio] 19.7 mg/mg 10-20 [facility] Basic Metabolic Profile (BMP )on 11-10-2024 BUN/CRE 19.7 RATIO Normal 10-20 [facility] Comment on above: Performed By: #### L 500.2500, L501.2300 #### [facility] [address] [place], [address] Calcium [Mass/Vol] 9.1 mg/dL Normal 7.6-11.0 [facility] Comment on above: Performed By: #### L 500.2500, L501.2300 #### [facility] [address] [place], [address] Chloride [Moles/Vol] 105 mmol/L Normal 98-108 [facility] Comment on above: Performed By: #### L 500.2500, L501.2300 #### [facility] [address] [place], [address] CO2 [Moles/Vol] 24.1 mmol/L Normal 21.0-32.0 [facility] Comment on above: Performed By: #### L 500.2500, L501.2300 #### [facility] [address] [place], [address] Creatinine [Mass/Vol] 1.19 mg/dL Normal 0.70-1.20 [facility] Comment on above: Performed By: #### L 500.2500, L501.2300 #### [facility] [address] [place], [address] ECRCL 48.56 ml/min Low 50-250 [facility] Comment on above: Performed By: #### L 500.2500, L501.2300 #### [facility] [address] [place], [address] GAP 9 Normal 5-15 [facility] Comment on above: Performed By: #### L 500.2500, L501.2300 #### [facility] [address] [place], [address] GFR/1.73 sq M.predicted among non-blacks MDRD (S/P/Bld) [Vol rate/Area] 59 mL/min/{1.73_m2} Low >60 [facility] Comment on above: Result Comment: mL/m in/1.73m2 CKD-EPI Creatinine Equation (2020) Performed By: #### L 500.2500, L501.2300 #### [facility] [address] [place], [address] Glucose [Mass/Vol] 101 mg/dL High 70-99 [facility] Comment on above: Performed By: #### L 500.2500, L501.2300 #### [facility] [address] [place], [address] Potassium [Moles/Vol] 4.3 mmol/L Normal 3.3-5.1 [facility] Comment on above: Performed By: #### L 500.2500, L501.2300 #### [facility] [address] [place], [address] Sodium [Moles/Vol] 137 mmol/L Normal 133-145 [facility] Comment on above: Performed By: #### L 500.2500, L501.2300 #### [facility] [address] [place], [address] Urea nitrogen [Mass/Vol] 23 mg/dL High 4-19 [facility] Comment on above: Performed By: #### L 500.2500, L501.2300 #### [facility] [address] [place], [address] Basophil percentageOrdered B y: Riky Li on 11-10-2024 Basophils/100 WBC (Bld) 0.6 % 0-1 [facility] CBC W/Diff, Automatedon 10-17 Absolute Lymph 1.91 X10 3/uL Normal 0.83-4.51 [facility] Comment on above: Performed By: #### L 300.4310, L300.3900 #### [facility] [address] [place], [address] Absolute Neut 4.9 X10 3/uL Normal 2.0-7.7 [facility] Comment on above: Performed By: #### L 300.4310, L300.3900 #### [facility] [address] [place], [address] Basophils/100 WBC (Bld) 0.6 % Normal 0-1 [facility] Comment on above: Performed By: #### L 300.4310, L300.3900 #### [facility] [address] [place], [address] Eosinophils/100 WBC (Bld) 2.4 % Normal 0-5 [facility] Comment on above: Performed By: #### L 300.4310, L300.3900 #### [facility] [address] [place], [address] Erythrocyte distribution width (RBC) [Ratio] 14.0 % Normal 11.6-14.6 [facility] Comment on above: Performed By: #### L 300.4310, L300.3900 #### [facility] [address] [place], [address] Hematocrit (Bld) [Volume fraction] 38.7 % Low 40-54 [facility] Comment on above: Performed By: #### L 300.4310, L300.3900 #### [facility] [address] [place], [address] Hemoglobin (Bld) [Mass/Vol] 12.9 g/dL Low 13.0-16.5 [facility] Comment on above: Performed By: #### L 300.4310, L300.3900 #### [facility] [address] [place], [address] IG% 0.400 Normal 0.0-0.9 [facility] Comment on above: Result Comment: IG% - Immature Granulocytes (promyelocytes, myelocytes and metamyelocytes) > 1% indicates that a LEFT SHIFT is Present. Performed By: #### L 300.4310, L300.3900 #### [facility] [address] [place], [address] Lymphocytes/100 WBC (Bld) 24.1 % Normal 19-41 [facility] Comment on above: Performed By: #### L 300.4310, L300.3900 #### [facility] [address] [place], [address] MCH (RBC) [Entitic mass] 32.2 pg High 27.0-32.0 [facility] Comment on above: Performed By: #### L 300.4310, L300.3900 #### [facility] [address] [place], [address] MCHC (RBC) [Mass/Vol] 33.3 g/dL Normal 32-36 [facility] Comment on above: Performed By: #### L 300.4310, L300.3900 #### [facility] [address] [place], [address] MCV (RBC) [Entitic vol] 96.5 fL High 80-94 [facility] Comment on above: Performed By: #### L 300.4310, L300.3900 #### [facility] [address] [place], [address] Monocytes/100 WBC (Bld) 10.6 % High 0-10 [facility] Comment on above: Performed By: #### L 300.4310, L300.3900 #### [facility] [address] [place], [address] Neutrophils/100 WBC (Bld) 61.9 % Normal 47-70 [facility] Comment on above: Performed By: #### L 300.4310, L300.3900 #### [facility] [address] [place], [address] Nucleated RBC (Bld) [#/Vol] 0 10*3/uL Normal 0-5 [facility] Comment on above: Performed By: #### L 300.4310, L300.3900 #### [facility] [address] [place], [address] Platelet mean volume (Bld) [Entitic vol] 9.4 fL Normal 6.2-12.0 [facility] Comment on above: Performed By: #### L 300.4310, L300.3900 #### [facility] [address] [place], [address] Platelets (Bld) [#/Vol] 181 10*3/uL Normal 150-450 [facility] Comment on above: Performed By: #### L 300.4310, L300.3900 #### [facility] [address] [place], [address] RBC (Bld) [#/Vol] 4.01 10*6/uL Low 4.6-6.2 [facility] Comment on above: Performed By: #### L 300.4310, L300.3900 #### [facility] [address] [place], [address] RDW SD 49.6 fl High 35.1-43.9 [facility] Comment on above: Performed By: #### L 300.4310, L300.3900 #### [facility] [address] [place], [address] WBC (Bld) [#/Vol] 7.9 10*3/uL Normal 4.4-11.0 [facility] Comment on above: Performed By: #### L 300.4310, L300.3900 #### [facility] [address] [place], [address] Carbon dioxide, total [Moles /volume] in Central venous bloodOrdered By: Riky Li on 11-10-2024 CO2 [Moles/Vol] 24.1 mmol/L 21.0-32.0 [facility] Chloride assayOrdered By: Moses Li on 11-10-2024 Chloride [Moles/Vol] 105 mmol/L 98-108 [facility] Discharge Instructionon 10-17 Discharge Instruction [facility] Medical Records Department [address] [place] [address] Instructions for Home/Discharge Instructions 11/10/24 0940 MR#: [id number] Acct: [id number] Name: PACO WHITNEY Rep #: [id number] : [id number] From: Riky Li MD [...] me in clinic in 3 days at [facility] on Tuesday, 13 November 2024, Discharge Orders/Prescriptions [...] Staff] - (Follow-up in 3 days at [facility] in clinic) Disposition Disposition (needs filled in before D/C Order can be placed): Home, Self Care 11/10/24 0901 Riky Li MD CC: Dr. Evelyn Doss, DO; Dr. Clarice Murillo MD Signed Normal [facility] Eosinophil percentageOrdered By: Riky Li on 11-10-2024 Eosinophils/100 WBC (Bld) 2.4 % 0-5 [facility] Erythrocyte distribution wid th (RBC) [Ratio]Ordered By: Riky Li on 11-10-2024 Erythrocyte distribution width (RBC) [Entitic vol] 49.6 fL High 35.1-43.9 [facility] Erythrocyte distribution wid th ratioOrdered By: Riky Li on 11-10-2024 Erythrocyte distribution width (RBC) [Ratio] 14.0 % 11.6-14.6 [facility] Erythrocyte distribution wid th standard deviationOrdered By: Riky Li on 11-10-2024 Erythrocyte distribution width (RBC) [Ratio] 49.6 fl High 35.1-43.9 [facility] Estimation of creatinine alan aranceOrdered By: Riky Li on 11-10-2024 Estimated Creatinine Clearance Calc 48.56 ml/min Low 50-250 [facility] GFR/1.73 sq M.predicted mauro g non-blacks MDRD (S/P/Bld) [Vol rate/Area]Ordered By: Riky Li on 11-10-2024 Estimated GFR (MDRD) Non-Af Amer 59 Low >60 [facility] Comment on above: mL/min/1.73m2 CKD-EP I Creatinine Equation (2020) Glomerular filtration rate ( GFR) estimation/1.73 sq m using serum, plasma, or whole bOrdered By: Riky Li on 11-10-2024 GFR/1.73 sq M.predicted among non-blacks MDRD (S/P/Bld) [Vol rate/Area] 59 mL/min/{1.73_m2} Low >60 [facility] Comment on above: mL/min/1.73m2 CKD-EP I Creatinine Equation (2020) Hematocrit Auto (Bld) [Volum e fraction]Ordered By: Riky Li on 11-10-2024 Hematocrit (Bld) [Volume fraction] 38.7 % Low 40-54 [facility] Hemoglobin measurementOrdere d By: Riky Li on 11-10-2024 Hemoglobin (Bld) [Mass/Vol] 12.9 g/dL Low 13.0-16.5 [facility] Immature granulocytes/100 WB C Auto (Bld)Ordered By: Riky Li on 11-10-2024 Immature granulocytes/100 WBC (Bld) 0.400 % 0.0-0.9 [facility] Comment on above: IG% - Immature Granu locytes (promyelocytes, myelocytes and metamyelocytes) > 1% indicates that a LEFT SHIFT is Present. Lymphocytes Auto (Unsp spec) [#/Vol]Ordered By: Riky Li on 11-10-2024 Lymphocytes (Bld) [#/Vol] 1.91 10*3/uL 0.83-4.51 [facility] Lymphocytes/100 WBC Auto (Un sp spec)Ordered By: Riky Li on 11-10-2024 Lymphocytes/100 WBC (Bld) 24.1 % 19-41 [facility] MCV (mean corpuscular volume ) determinationOrdered By: Riky Li on 11-10-2024 MCV (RBC) [Entitic vol] 96.5 fL High 80-94 [facility] Mean corpuscular hemoglobin (MCH) determinationOrdered By: Riky Li on 11-10-2024 MCH (RBC) [Entitic mass] 32.2 pg High 27.0-32.0 [facility] Mean corpuscular hemoglobin concentration (MCHC) determinationOrdered By: Riky Li on 11-10-2024 MCHC (RBC) [Mass/Vol] 33.3 g/dL 32-36 [facility] Mean platelet volume determi nationOrdered By: Riky Li on 11-10-2024 Platelet mean volume (Bld) [Entitic vol] 9.4 fL 6.2-12.0 [facility] Monocyte percentageOrdered B y: Riky Li on 11-10-2024 Monocytes/100 WBC (Bld) 10.6 % High 0-10 [facility] Neutrophil percentageOrdered By: Riky Li on 11-10-2024 Neutrophils/100 WBC (Bld) 61.9 % 47-70 [facility] Nucleated red blood cell per centageOrdered By: Riky Li on 11-10-2024 Nucleated RBC/100 WBC (Bld) [Ratio] 0 % 0-5 [facility] Phosphoruson 11-10-2024 Phosphate [Mass/Vol] 3.3 mg/dL Normal 2.7-4.5 [facility] Comment on above: Performed By: #### L 500.2500, L501.2300 #### [facility] [address] [place], [address] Platelet countOrdered By: Moses Li on 11-10-2024 Platelets (Bld) [#/Vol] 181 10*3/uL 150-450 [facility] Potassium (Unsp spec) [Mass/ Vol]Ordered By: Riky Li on 11-10-2024 Potassium [Moles/Vol] 4.3 mmol/L 3.3-5.1 [facility] Potassium measurement (mass/ volume)Ordered By: Riky Li on 11-10-2024 Potassium (Unsp spec) [Mass/Vol] 4.3 mmol/L 3.3-5.1 [facility] RBC Auto (Bld) [#/Vol]Ordere d By: Riky Li on 11-10-2024 RBC (Bld) [#/Vol] 4.01 10*6/uL Low 4.6-6.2 [facility] Serum creatinine measurement (mass/volume)Ordered By: Riky Li on 11-10-2024 Creatinine [Mass/Vol] 1.19 mg/dL 0.70-1.20 [facility] Serum glucose measurement (m ass/volume)Ordered By: Riky Li on 11-10-2024 Glucose [Mass/Vol] 101 mg/dL High 70-99 [facility] Serum or plasma calcium saige urement (mass/volume)Ordered By: Riky Li on 11-10-2024 Calcium [Mass/Vol] 9.1 mg/dL 7.6-11.0 [facility] Serum or plasma urea nitroge n measurement (mass/volume)Ordered By: Riky Li on 11-10-2024 Urea nitrogen [Mass/Vol] 23 mg/dL High 4-19 [facility] Serum phosphorus measurement Ordered By: Evelyn Mccall on 11-10-2024 Phosphorus Level 3.3 mg/dL 2.7-4.5 [facility] Sodium levelOrdered By: Mike Li on 11-10-2024 Sodium [Moles/Vol] 137 mmol/L 133-145 [facility] White blood cell (WBC) count Ordered By: Riky Li on 11-10-2024 WBC (Bld) [#/Vol] 7.9 10*3/uL 4.4-11.0 [facility] Bilirubin, totalOrdered By: Evelyn Mccall on 11-09-2024 Bilirubin [Mass/Vol] 0.71 mg/dL 0.00-1.30 [facility] CBC W/Diff, Automatedon 10-17 Absolute Lymph 1.82 X10 3/uL Normal 0.83-4.51 [facility] Comment on above: Performed By: #### L 500.2500, L100.0100 #### [facility] [address] [place], [address] Absolute Neut 5.8 X10 3/uL Normal 2.0-7.7 [facility] Comment on above: Performed By: #### L 500.2500, L100.0100 #### [facility] [address] [place], [address] Basophils/100 WBC (Bld) 0.6 % Normal 0-1 [facility] Comment on above: Performed By: #### L 500.2500, L100.0100 #### [facility] [address] [facility] [place], [address] Eosinophils/100 WBC (Bld) 2.2 % Normal 0-5 [facility] Comment on above: Performed By: #### L 500.2500, L100.0100 #### [facility] [address] [place], [address] Erythrocyte distribution width (RBC) [Ratio] 13.9 % Normal 11.6-14.6 [facility] Comment on above: Performed By: #### L 500.2500, L100.0100 #### [facility] [address] [place], [address] Hematocrit (Bld) [Volume fraction] 39.5 % Low 40-54 [facility] Comment on above: Performed By: #### L 500.2500, L100.0100 #### [facility] [address] [place], [address] Hemoglobin (Bld) [Mass/Vol] 13.2 g/dL Normal 13.0-16.5 [facility] Comment on above: Performed By: #### L 500.2500, L100.0100 #### [facility] [address] [place], [address] IG% 0.300 Normal 0.0-0.9 [facility] Comment on above: Result Comment: IG% - Immature Granulocytes (promyelocytes, myelocytes and metamyelocytes) > 1% indicates that a LEFT SHIFT is Present. Performed By: #### L 500.2500, L100.0100 #### [facility] [address] [place], [address] Lymphocytes/100 WBC (Bld) 20.8 % Normal 19-41 [facility] Comment on above: Performed By: #### L 500.2500, L100.0100 #### [facility] [address] [place], [address] MCH (RBC) [Entitic mass] 32.3 pg High 27.0-32.0 [facility] Comment on above: Performed By: #### L 500.2500, L100.0100 #### [facility] [address] [place], [address] MCHC (RBC) [Mass/Vol] 33.4 g/dL Normal 32-36 [facility] Comment on above: Performed By: #### L 500.2500, L100.0100 #### [facility] [address] [place], [address] MCV (RBC) [Entitic vol] 96.6 fL High 80-94 [facility] Comment on above: Performed By: #### L 500.2500, L100.0100 #### [facility] [address] [place], [address] Monocytes/100 WBC (Bld) 9.7 % Normal 0-10 [facility] Comment on above: Performed By: #### L 500.2500, L100.0100 #### [facility] [address] [place], [address] Neutrophils/100 WBC (Bld) 66.4 % Normal 47-70 [facility] Comment on above: Performed By: #### L 500.2500, L100.0100 #### [facility] [address] [place], [address] Nucleated RBC (Bld) [#/Vol] 0 10*3/uL Normal 0-5 [facility] Comment on above: Performed By: #### L 500.2500, L100.0100 #### [facility] [address] [place], [address] Platelet mean volume (Bld) [Entitic vol] 9.8 fL Normal 6.2-12.0 [facility] Comment on above: Performed By: #### L 500.2500, L100.0100 #### [facility] [address] [place], [address] Platelets (Bld) [#/Vol] 196 10*3/uL Normal 150-450 [facility] Comment on above: Performed By: #### L 500.2500, L100.0100 #### [facility] [address] [place], [address] RBC (Bld) [#/Vol] 4.09 10*6/uL Low 4.6-6.2 [facility] Comment on above: Performed By: #### L 500.2500, L100.0100 #### [facility] [address] [place], [address] RDW SD 49.5 fl High 35.1-43.9 [facility] Comment on above: Performed By: #### L 500.2500, L100.0100 #### [facility] [address] [place], [address] WBC (Bld) [#/Vol] 8.8 10*3/uL Normal 4.4-11.0 [facility] Comment on above: Performed By: #### L 500.2500, L100.0100 #### [facility] [address] [place], [address] Calculated very low density lipoprotein (VLDL) cholesterol measurementOrdered By: Evelyn Mccall on 11-09-2024 Calculated very low density lipoprotein (VLDL) cholesterol measurement 31 mg/dL 5-40 [facility] VLDL Cholesterol 31 mg/dL 5-40 [facility] Comprehensive Metabolic Prof ilon 11-09-2024 Albumin [Mass/Vol] 3.2 g/dL Low 3.4-4.8 [facility] Comment on above: Performed By: #### L 500.2500, L100.0100 #### [facility] [address] [place], [address] Albumin/Globulin [Mass ratio] 1.5 {ratio} Normal 0.9-2.4 [facility] Comment on above: Performed By: #### L 500.2500, L100.0100 #### [facility] [address] [place], [address] ALK PHOS 60 U/L Normal 40-129 [facility] Comment on above: Performed By: #### L 500.2500, L100.0100 #### [facility] [address] [place], [address] ALT [Catalytic activity/Vol] 22 U/L Normal <=46 [facility] Comment on above: Performed By: #### L 500.2500, L100.0100 #### [facility] [address] [place], [address] AST [Catalytic activity/Vol] 24 U/L Normal <=37 [facility] Comment on above: Performed By: #### L 500.2500, L100.0100 #### [facility] [address] [place], [address] Bilirubin [Mass/Vol] 0.71 mg/dL Normal 0.00-1.30 [facility] Comment on above: Performed By: #### L 500.2500, L100.0100 #### [facility] [address] [place], [address] BUN/CRE 26.9 RATIO High 10-20 [facility] Comment on above: Performed By: #### L 500.2500, L100.0100 #### [facility] [address] [place], [address] Calcium [Mass/Vol] 8.8 mg/dL Normal 7.6-11.0 [facility] Comment on above: Performed By: #### L 500.2500, L100.0100 #### [facility] [address] [place], [address] Chloride [Moles/Vol] 107 mmol/L Normal 98-108 [facility] Comment on above: Performed By: #### L 500.2500, L100.0100 #### [facility] [address] [place], [address] CO2 [Moles/Vol] 23.1 mmol/L Normal 21.0-32.0 [facility] Comment on above: Performed By: #### L 500.2500, L100.0100 #### [facility] [address] [place], [address] Creatinine [Mass/Vol] 1.17 mg/dL Normal 0.70-1.20 [facility] Comment on above: Performed By: #### L 500.2500, L100.0100 #### [facility] [address] [place], [address] ECRCL 49.39 ml/min Low 50-250 [facility] Comment on above: Performed By: #### L 500.2500, L100.0100 #### [facility] [address] [place], [address] GAP 10 Normal 5-15 [facility] Comment on above: Performed By: #### L 500.2500, L100.0100 #### [facility] [address] [place], [address] GFR/1.73 sq M.predicted among non-blacks MDRD (S/P/Bld) [Vol rate/Area] 60 mL/min/{1.73_m2} Normal >60 [facility] Comment on above: Result Comment: mL/m in/1.73m2 CKD-EPI Creatinine Equation (2020) Performed By: #### L 500.2500, L100.0100 #### [facility] [address] [place], [address] Globulin (S) [Mass/Vol] 2.1 g/dL Low 2.2-4.2 [facility] Comment on above: Performed By: #### L 500.2500, L100.0100 #### [facility] [address] [place], [address] Glucose [Mass/Vol] 88 mg/dL Normal 70-99 [facility] Comment on above: Performed By: #### L 500.2500, L100.0100 #### [facility] [address] [place], [address] Potassium [Moles/Vol] 4.1 mmol/L Normal 3.3-5.1 [facility] Comment on above: Performed By: #### L 500.2500, L100.0100 #### [facility] [address] [place], [address] Sodium [Moles/Vol] 140 mmol/L Normal 133-145 [facility] Comment on above: Performed By: #### L 500.2500, L100.0100 #### [facility] [address] [place], [address] T PROT 5.3 g/dL Low 5.9-8.4 [facility] Comment on above: Performed By: #### L 500.2500, L100.0100 #### [facility] [address] [place], [address] Urea nitrogen [Mass/Vol] 32 mg/dL High 4-19 [facility] Comment on above: Performed By: #### L 500.2500, L100.0100 #### [facility] [address] [place], [address] Gram Stainon 11-09-2024 GS Left wrist aspirate Centrifuged Specimen? Culture performed on centrifuged specimen Gram Stain 4+ Red Blood Cells Rare White Blood Cells No organisms seen Normal [facility] Comment on above: Performed By: #### L 100.0500, L500.2500 #### [facility] [address] [place], [address] LDL calc ser/plasOrdered By: Evelyn Mccall on 11-09-2024 Cholesterol in LDL [Mass/Vol] 43 mg/dL [facility] Comment on above: Htrxsratch=300-136 m g/dL & Higher Zarv=941 mg/dL or greater LDL Cholesterol, Calculated 43 mg/dL [facility] Comment on above: Jhgfncbbkf=224-287 m g/dL & Higher Ymjr=175 mg/dL or greater Laboratory - Chemistry and C hemistry - challengeOrdered By: Evelyn Mccall on 11-09-2024 AST [Catalytic activity/Vol] 24 U/L <38 [facility] Lipid Profileon 11-09-2024 CHOL:HDL 3.52 Normal [facility] Comment on above: Performed By: #### L 500.2500, L100.0100 #### [facility] [address] [place], [address] Cholesterol [Mass/Vol] 103 mg/dL Normal <=200 [facility] Comment on above: Result Comment: Chol esterol level, Desirable <200 mg/dL Borderline high cholesterol 200-239 mg/dL High cholesterol >=240 mg/dL Recommendations of the NCEP Adult Treatment Panel for the following risk-cutoff thresholds for the [place] population. Performed By: #### L 500.2500, L100.0100 #### [facility] [address] [place], [address] Cholesterol in HDL [Mass/Vol] 29 mg/dL Low [facility] Comment on above: Result Comment: Maribell onal Cholesterol Education Program (NCEP) guidelines: <40 mg/dL: Low HDL-cholesterol (major risk factor for CHD) >= 60 mg/dL: High HDL-cholesterol (negative risk factor for CHD) HDL-cholesterol is affected by a number of factors, e.g. smoking, exercise, hormones, sex and age. Performed By: #### L 500.2500, L100.0100 #### [facility] [address] [place], [address] Cholesterol in LDL [Mass/Vol] 43 mg/dL Normal [facility] Comment on above: Result Comment: Bord vkaikd=473-777 mg/dL Higher Hbsq=122 mg/dL or greater Performed By: #### L 500.2500, L100.0100 #### [facility] [address] [place], [address] Cholesterol in VLDL [Mass/Vol] 31 mg/dL Normal 5-40 [facility] Comment on above: Performed By: #### L 500.2500, L100.0100 #### [facility] [address] [place], [address] Triglyceride [Mass/Vol] 155 mg/dL Normal [facility] Comment on above: Result Comment: The drugs N-Acetylcysteine and Metamizole may falsely depress this assay. Normal range: <150 mg/dL Borderline High: 150-199 mg/dL High: 200-499 mg/dL Very High: >500 mg/dL Performed By: #### L 500.2500, L100.0100 #### [facility] [address] [place], [address] Phosphoruson 11-09-2024 Phosphate [Mass/Vol] 3.6 mg/dL Normal 2.7-4.5 [facility] Comment on above: Performed By: #### L 500.2500, L100.0100 #### [facility] [address] [place], [address] Screening total cholesterol/ high density lipoprotein (HDL) cholesterol ratioOrdered By: Evelyn Mccall on 11-09-2024 Cholesterol.total/Chol esterol in HDL [Mass ratio] 3.52 {ratio} [facility] Serum globulin measurementOr dered By: Evelyn Mccall on 11-09-2024 Globulin (S) [Mass/Vol] 2.1 g/dL Low 2.2-4.2 [facility] Serum or plasma alanine hopkins otransferase (ALT) measurementOrdered By: Evelyn Mccall on 11-09-2024 ALT [Catalytic activity/Vol] 22 U/L <47 [facility] Serum or plasma albumin saige urement (mass/volume)Ordered By: Evelyn Mccall on 11-09-2024 Albumin [Mass/Vol] 3.2 g/dL Low 3.4-4.8 [facility] Serum or plasma albumin/glob ulin mass ratioOrdered By: Evelyn Mccall on 11-09-2024 Albumin/Globulin [Mass ratio] 1.5 {ratio} 0.9-2.4 [facility] Serum or plasma alkaline jaki sphatase measurementOrdered By: Evelyn Mccall on 11-09-2024 ALP [Catalytic activity/Vol] 60 U/L 40-129 [facility] Serum or plasma cholesterol in HDL measurement (mass/volume)Ordered By: Evelyn Mccall on 11-09-2024 Cholesterol in HDL [Mass/Vol] 29 mg/dL Low >40 [facility] Comment on above: National Cholesterol Education Program (NCEP) guidelines:<40 mg/dL: Low HDL-cholesterol (major risk factor for CHD)>= 60 mg/dL: High HDL-cholesterol (negative risk factor for CHD)HDL-cholesterol is affected by a number of factors, e.g. smoking, exercise, hormones, sex and age. Serum or plasma cholesterol measurement (mass/volume)Ordered By: Evelyn Mccall on 11-09-2024 Cholesterol [Mass/Vol] 103 mg/dL <201 [facility] Comment on above: Cholesterol level, D esirable <200 mg/dLBorderline high cholesterol 200-239 mg/dLHigh cholesterol >=240 mg/dLRecommendations of the NCEP Adult Treatment Panel for the following risk-cutoff thresholds for the [place] population. Total proteinOrdered By: Willem Mccall on 11-09-2024 Protein [Mass/Vol] 5.3 g/dL Low 5.9-8.4 [facility] Triglycerides measurementOrd ered By: Evelyn Mccall on 11-09-2024 Triglyceride [Mass/Vol] 155 mg/dL <199 [facility] Comment on above: The drugs N-Acetylcy steine and Metamizole may falsely depress this assay. Normal range: <150 mg/dLBorderline High: 150-199 mg/dLHigh: 200-499 mg/dLVery High: >500 mg/dL Anaerobic cultureOrdered By: Dennis Rocha on 11-08-2024 Bacteria identified Anaer cx Nom (Unsp spec) No anaerobic bacteria isolated. [facility] Appearance (Syn fld)Ordered By: Dennis Rocha on 11-08-2024 Synovial Fluid Appearance Opaque CLEAR [facility] Automated synovial fluid ramya kocytes count (number/volume)Ordered By: Dennis Rocha on 11-08-2024 WBC Auto (Syn fld) [#/Vol] 3.9810 10^3/uL High 0.000-0.00 2 [facility] Automated synovial fluid mon onuclear cell count (number/volume)Ordered By: Dennis Rocha on 11-08-2024 Mononuclear cells Auto (Syn fld) [#/Vol] 1.409 10^3/ul [facility] Automated synovial fluid pamela ymorphonuclear cell count (number/volume)Ordered By: Dennis Rocha on 11-08-2024 Polymorphonuclear cells Auto (Syn fld) [#/Vol] 2.572 10^3/uL [facility] Automated synovial fluid pamela ymorphonuclear cells as percentage of leukocytesOrdered By: Dennis Rocha on 11-08-2024 Polymorphonuclear cells/100 WBC Auto (Syn fld) 64.6 % [facility] Basic Metabolic Profile (BMP )on 11-08-2024 BUN/CRE 29.3 RATIO High 10-20 [facility] Comment on above: Performed By: #### L 500.2500, L100.0100 #### [facility] [address] [place], [address] Calcium [Mass/Vol] 9.5 mg/dL Normal 7.6-11.0 [facility] Comment on above: Performed By: #### L 500.2500, L100.0100 #### [facility] [address] [place], [address] Chloride [Moles/Vol] 108 mmol/L Normal 98-108 [facility] Comment on above: Performed By: #### L 500.2500, L100.0100 #### [facility] [address] [place], [address] CO2 [Moles/Vol] 22.8 mmol/L Normal 21.0-32.0 [facility] Comment on above: Performed By: #### L 500.2500, L100.0100 #### [facility] [address] [place], [address] Creatinine [Mass/Vol] 1.26 mg/dL High 0.70-1.20 [facility] Comment on above: Performed By: #### L 500.2500, L100.0100 #### [facility] [address] [place], [address] ECRCL 45.77 ml/min Low 50-250 [facility] Comment on above: Performed By: #### L 500.2500, L100.0100 #### [facility] [address] [place], [address] GAP 10 Normal 5-15 [facility] Comment on above: Performed By: #### L 500.2500, L100.0100 #### [facility] [address] [place], [address] GFR/1.73 sq M.predicted among non-blacks MDRD (S/P/Bld) [Vol rate/Area] 55 mL/min/{1.73_m2} Low >60 [facility] Comment on above: Result Comment: mL/m in/1.73m2 CKD-EPI Creatinine Equation (2020) Performed By: #### L 500.2500, L100.0100 #### [facility] [address] [place], [address] Glucose [Mass/Vol] 116 mg/dL High 70-99 [facility] Comment on above: Performed By: #### L 500.2499, L100.0100 #### [facility] [address] [place], [address] Potassium [Moles/Vol] 4.6 mmol/L Normal 3.3-5.1 [facility] Comment on above: Performed By: #### L 500.2500, L100.0100 #### [facility] [address] [place], [address] Sodium [Moles/Vol] 141 mmol/L Normal 133-145 [facility] Comment on above: Performed By: #### L 500.2500, L100.0100 #### [facility] [address] [place], [address] Urea nitrogen [Mass/Vol] 37 mg/dL High - [facility] Comment on above: Performed By: #### L 500.2500, L100.0100 #### [facility] [address] [place], [address] Blood lymphocytes/100 leukoc ytesOrdered By: Dennis Rocha on 11-08-2024 Lymphocytes/100 WBC (Bld) 40 % [facility] Body fluid crystal identific ation by light microscopyOrdered By: Dennis Rocha on 11-08-2024 Crystals LM Nom (Body fld) NO CRYSTALS SEEN [facility] Comment on above: CRYSTAL RESULT IS PRELIMINARY. SEE PATH REVIEW FOR FINAL REPORT. CBC W/Diff, Automatedon - Absolute Lymph 1.96 X10 3/uL Normal 0.83-4.51 [facility] Comment on above: Performed By: #### L 500.2500, L100.0100 #### [facility] [address] [place], [address] Absolute Neut 6.9 X10 3/uL Normal 2.0-7.7 [facility] Comment on above: Performed By: #### L 500.2500, L100.0100 #### [facility] [address] [place], [address] Basophils/100 WBC (Bld) 0.6 % Normal 0-1 [facility] Comment on above: Performed By: #### L 500.2500, L100.0100 #### [facility] [address] [place], [address] Eosinophils/100 WBC (Bld) 1.8 % Normal 0-5 [facility] Comment on above: Performed By: #### L 500.2500, L100.0100 #### [facility] [address] [place], [address] Erythrocyte distribution width (RBC) [Ratio] 13.9 % Normal 11.6-14.6 [facility] Comment on above: Performed By: #### L 500.2500, L100.0100 #### [facility] [address] [place], [address] Hematocrit (Bld) [Volume fraction] 43.0 % Normal 40-54 [facility] Comment on above: Performed By: #### L 500.2500, L100.0100 #### [facility] [address] [place], [address] Hemoglobin (Bld) [Mass/Vol] 14.3 g/dL Normal 13.0-16.5 [facility] Comment on above: Performed By: #### L 500.2500, L100.0100 #### [facility] [address] [place], [address] IG% 0.400 Normal 0.0-0.9 [facility] Comment on above: Result Comment: IG% - Immature Granulocytes (promyelocytes, myelocytes and metamyelocytes) > 1% indicates that a LEFT SHIFT is Present. Performed By: #### L 500.2500, L100.0100 #### [facility] [address] [place], [address] Lymphocytes/100 WBC (Bld) 19.5 % Normal 19-41 [facility] Comment on above: Performed By: #### L 500.2500, L100.0100 #### [facility] [address] [place], [address] MCH (RBC) [Entitic mass] 31.7 pg Normal 27.0-32.0 [facility] Comment on above: Performed By: #### L 500.2500, L100.0100 #### [facility] [address] [place], [address] MCHC (RBC) [Mass/Vol] 33.3 g/dL Normal 32-36 [facility] Comment on above: Performed By: #### L 500.2500, L100.0100 #### [facility] [address] [place], [address] MCV (RBC) [Entitic vol] 95.3 fL High 80-94 [facility] Comment on above: Performed By: #### L 500.2500, L100.0100 #### [facility] [address] [place], [address] Monocytes/100 WBC (Bld) 9.4 % Normal 0-10 [facility] Comment on above: Performed By: #### L 500.2500, L100.0100 #### [facility] [address] [place], [address] Neutrophils/100 WBC (Bld) 68.3 % Normal 47-70 [facility] Comment on above: Performed By: #### L 500.2500, L100.0100 #### [facility] [address] [place], [address] Nucleated RBC (Bld) [#/Vol] 0 10*3/uL Normal 0-5 [facility] Comment on above: Performed By: #### L 500.2500, L100.0100 #### [facility] [address] [place], [address] Platelet mean volume (Bld) [Entitic vol] 9.8 fL Normal 6.2-12.0 [facility] Comment on above: Performed By: #### L 500.2500, L100.0100 #### [facility] [address] [place], [address] Platelets (Bld) [#/Vol] 233 10*3/uL Normal 150-450 [facility] Comment on above: Performed By: #### L 500.2500, L100.0100 #### [facility] [address] [place], [address] RBC (Bld) [#/Vol] 4.51 10*6/uL Low 4.6-6.2 [facility] Comment on above: Performed By: #### L 500.2500, L100.0100 #### [facility] [address] [place], [address] RDW SD 49.1 fl High 35.1-43.9 [facility] Comment on above: Performed By: #### L 500.2500, L100.0100 #### [facility] [address] [place], [address] WBC (Bld) [#/Vol] 10.0 10*3/uL Normal 4.4-11.0 [facility] Comment on above: Performed By: #### L 500.2500, L100.0100 #### [facility] [address] [place], [address] CNOVon 11-08-2024 [facility] PACO WH[facility] ([id number]) 1935 M Date Time Provider Department 11/08/24 5:30 PM VASYL WELSH [facility] During your visit today, we recorded the following information about you: Temperature Pulse Respiration Blood pressure 99.5 degrees 79/minute 22/minute 118/68 Weight 90 kg Vasyl Welsh MD 11/08/2024 6:31 PM Signed [facility] Subjective Paco Josefina Whitney is a 89 year old male. [...] available. He will take himself to the [facility]. Vasyl Welsh MD History and Record [...] will be seeking further care outside the [facility] hospital system. Disposition The patient was other [...] 1 capsule by mouth once daily. - ztwpfbux-pywzzicbi-yikqeijrl isone (CORTISPORIN) 3.5-10,000-1 mg/mL-unit/mL-% otic suspension Use 4 Drops in the ears four times daily. x 1 week - clotrimazole-betamethasone (LOTRISONE) cream Apply 1 application to affected area two times (more content not included)... Normal [facility] CRPon 11-08-2024 C-REACTIVE PROT 5.25 mg/L High 0.0-3.0 [facility] Comment on above: Performed By: #### L 500.2500, L100.0100 #### [facility] [address] [place], [address] CRP [Mass/Vol]Ordered By: Mary Kay Hartley on 11-08-2024 C-Reactive Protein Extended Range 5.25 mg/L High 0.0-3.0 [facility] Cells Counted Total (Syn fld ) [#]Ordered By: Dennis Rocha on 11-08-2024 Synovial Fluid Total Cells Counted 4.0010 10^3/uL High 0.000-0.00 0 [facility] Comment on above: This is the Total Nu mber of Nucleated Cell Types in the Body Fluid. Color (Syn fld)Ordered By: Josefina Rocha on 11-08-2024 Synovial Fluid Color RED Pale Yellow [facility] Consultation - Surgicalon Consultation - Surgical [facility] Medical Records Department [address] [place] [address] Consultation - Surgical 11/08/24 1853 MR#: [id number] Acct: [id number] Name: PACO WHITNEY Rep #: [id number] : 1935 89 From: Dennis Rocha MD PCP: Dr. Clarice Murillo MD Status:DIS IN Location: [facility]3 [id number] Dennis Rocha MD on 12/13/24 at 0846 Addendum CPT 56050 (arthrocentesis, aspiration) 12/13/24 0846 Cosigner Signature (if [...] wnl (10). 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 Normal [facility] Crystals LM Nom (Body fld)Or dered By: Dennis Rocha on 11-08-2024 Body Fluid Crystals NO CRYSTALS SEEN [facility] Comment on above: CRYSTAL RESULT IS PRELIMINARY. SEE PATH REVIEW FOR FINAL REPORT. Determination of appearance of synovial fluid (nominal result)Ordered By: Dennis Rocha on 11-08-2024 Appearance (Syn fld) Opaque CLEAR [facility] Emergency Department Summary on 11-08-2024 Emergency Department Summary [facility] Medical Records Department [address] [place] [address] Emergency Department Summary 11/08/24 MR#: [id number] Acct: [id number] Name: PACO WHITNEY Rep #: [id number] : 1935 89 From: Eduardo Hartley DO PCP: Dr. Clarice Murillo MD Status:ADM IN [id number] History of Present Illness Chief Complaint: [...] Respiratory R (more content not included)... Normal [facility] Erythrocyte Sed Rateon 11-08 SED RATE < 1 Normal 0-20 [facility] Comment on above: Performed By: #### L 500.2500, L100.0100 #### [facility] [address] [place], [address] Erythrocyte sedimentation ra teOrdered By: Eduardo Hartley on 11-08-2024 ESR (Bld) [Velocity] mm/h 0-20 [facility] Gram stainOrdered By: Dennis Rocha on 11-08-2024 Microscopic observation Gram stain Nom (Unsp spec) [facility] H AND P Exam - Hospitaliston 11-08-2024 H&P Exam - Hospitalist [facility] Medical Records Department [address] [place] [address] H P Exam - Hospitalist 11/08/242000 MR#: [id number] Acct: [id number] Name: DEVONTEPACO Josefina Rep #: [id number] : 1935 89 From: Evelyn Doss DO PCP: Dr. Clarice Murillo MD Status:ADM IN Location[place] [facility] [id number] HPI - General General Date of Admission: [...] his first MTP joint who presents to [facility] ER complaining of Left wrist redness, swelling, [...] is expected to extend beyond 2 midnights. [facility] Medical History PAD (peripheral artery disease) Renal [...] Reaction Status (more content not included)... Normal [facility] Hand Min 3 Viewson Hand Min 3 Views [facility] Imaging Services [address] [place], [place] [address] Hand Min 3 Views MR#: [id number] Acct: [id number] Name: PACO WHITNEY Rep #: [id number] : 1935 M 89 From: Dennis Lechuga PCP: Dr. Clarice Murillo MD Status: REG ER Study: Hand Min 3 Views Date of Exam: 11/08/24 Exam# [id number] Ordering Dr: Dennis Rocha MD PROCEDURE: HAND [...] Clarice Murillo MD; Dr. Dennis Rocha MD Press Tender Star Signal: Signed Normal [facility] Lymphocytes/100 WBC (Bld)Ord ered By: Dennis Rocha on 11-08-2024 Synovial Fluid Lymphocytes 40 % [facility] Magnesiumon 11-08-2024 Magnesium [Mass/Vol] 1.6 mg/dL Normal 1.5-2.2 [facility] Comment on above: Performed By: #### L 100.0500, L500.2500 #### [facility] Laboratory [address] [facility] [place], [place], [address] Magnesium (Unsp spec) [Mass/ Vol]Ordered By: Evelyn Mccall on 11-08-2024 Magnesium [Mass/Vol] 1.6 mg/dL 1.5-2.2 [facility] Magnesium measurement (mass/ volume)Ordered By: Evelyn Mccall on 11-08-2024 Magnesium (Unsp spec) [Mass/Vol] 1.6 mg/dL 1.5-2.2 [facility] Monocytes/100 WBC (Syn fld)O rdered By: Dennis Rocha on 11-08-2024 Synovial Fluid Monocytes 14 % [facility] Mononuclear cells Auto (Syn fld) [#/Vol]Ordered By: Dennis Rocha on 11-08-2024 Synovial Fluid Mononuclear WBCs 1.409 10^3/ul [facility] Mononuclear cells/100 WBC (S yn fld)Ordered By: Dennis Rocha on 11-08-2024 Synovial Fluid Mononuclear WBCs % 35.4 % [facility] Neutrophils/100 WBC (Syn fld )Ordered By: Dennis Rocha on 11-08-2024 Synovial Fluid Neutrophils 46 % High 0-25 [facility] Pathologist review Mitchell (Unsp spec) [Interp]Ordered By: Dennis Rocha on 11-08-2024 Synovial Fluid Pathologist Comment May follow [facility] Pathologist review of result s (narrative result)Ordered By: Dennis Rocha on 11-08-2024 Pathologist review Mitchell (Unsp spec) [Interp] Reviewed [facility] Comment on above: Previous reported re sult: May follow Edited by: DEYANIRA on 02/26/25:0848NEGATIVE FOR CRYSTALS.Sammie Fletcher MD 02/25/2025 AMENDED REPORT 02/26/25 0848 PATH COM/SYFL previously reported as: May follow Polymorphonuclear cells Auto (Syn fld) [#/Vol]Ordered By: Dennis Rocha on 11-08-2024 Synovial Fluid Polynuclear WBCs 2.572 10^3/uL [facility] Polymorphonuclear cells/100 WBC Auto (Syn fld)Ordered By: Dennis Rocha on 11-08-2024 Synovial Fluid Polynuclear WBCs % 64.6 % [facility] RBC (Syn fld) [#/Vol]Ordered By: Dennis Rocha on 11-08-2024 Synovial Fluid RBC 2.743 10^6/uL High 0-0 [facility] Serum or plasma C reactive p rotein measurement (mass/volume)Ordered By: Eduardo Hartley on 11-08-2024 CRP [Mass/Vol] 5.25 mg/L High 0.0-3.0 [facility] Serum or plasma uric acid me asurement (mass/volume)Ordered By: Remus Hartley on 11-08-2024 Urate [Mass/Vol] 4.5 mg/dL 3.5-7.2 [facility] Comment on above: The drugs N-Acetylcy steine and Metamizole may falsely depress this assay. Specimen source Nom (Body fl d)Ordered By: Dennis Rocha on 11-08-2024 Body Fluid Crystal Source SYNOVIAL [facility] Synovial Fluid Source LEFT WRIST ASPIRATE [facility] Specimen source identificati on of body fluidOrdered By: Dennis Rocha on 11-08-2024 Specimen source Nom (Body fld) SYNOVIAL [facility] Specimen source Nom (Body fld) LEFT WRIST ASPIRATE [facility] Synovial fluid color determi nation (nominal result)Ordered By: Dennis Rocha on 11-08-2024 Color (Syn fld) RED Pale Yellow [facility] Synovial fluid erythrocytes count (number/volume)Ordered By: Dennis Rocha on 11-08-2024 RBC (Syn fld) [#/Vol] 2.743 10^6/uL High 0-0 [facility] Synovial fluid monocyte perc entageOrdered By: Dennis Rocha on 11-08-2024 Monocytes/100 WBC (Syn fld) 14 % [facility] Synovial fluid mononuclear c ells/100 leukocytesOrdered By: Dennis Rocha on 11-08-2024 Mononuclear cells/100 WBC (Syn fld) 35.4 % [facility] Synovial fluid neutrophil pe rcentageOrdered By: Dennis Rocha on 11-08-2024 Neutrophils/100 WBC (Syn fld) 46 % High 0-25 [facility] Synovial fluid total cell co untOrdered By: Dennis Rocha on 11-08-2024 Cells Counted Total (Syn fld) [#] 4.0010 10^3/uL High 0.000-0.00 0 [facility] Comment on above: This is the Total Nu mber of Nucleated Cell Types in the Body Fluid. TSH DL <= 0.005 mIU/L QnOrde red By: Evelyn Mccall on 11-08-2024 Thyroid Stimulating Hormone (TSH) 2.530 uIU/mL 0.300-4.20 0 [facility] TSH Qn 2.530 uIU/mL 0.300-4.20 0 [facility] Thyroid Stim Hormone (TSH)on 11-08-2024 TSH 2.530 uIU/mL Normal 0.300-4.20 0 [facility] Comment on above: Performed By: #### L 300.4310, L300.3900 #### [facility] Laboratory [address] [facility] [place], [address] Uric Acidon 11-08-2024 URIC 4.5 mg/dL Normal 3.5-7.2 [facility] Comment on above: Result Comment: The drugs N-Acetylcysteine and Metamizole may falsely depress this assay. Performed By: #### L 500.2500, L100.0100 #### [facility] Laboratory [address] [place], [address] WBC Auto (Syn fld) [#/Vol]Or dered By: Dennis Rocha on 11-08-2024 Synovial Fluid WBC 3.9810 10^3/uL High 0.000-0 .00 2 [facility] Wrist min 3 Viewson 11-09-19 25 Wrist min 3 Views [facility] Imaging Services [address] [place] [address] Wrist min 3 Views MR#: [id number] Acct: [id number] Name: PACO WHITNEY Rep #: [id number] : 1935 M 89 From: Dennis Lechuga PCP: Dr. Clarice Murillo MD Status: REG ER Study: Wrist min 3 Views Date of Exam: 11/08/24 Exam# [id number] Ordering Dr: Eduardo Hartley DO EXAM: Left wrist radiographs CLINICAL HISTORY: Pain, swelling COMPARISON: None TECHNIQUE: Three views of the left wrist FINDINGS: See impression RAD/Wrist min 3 Views IMPRESSION: Negative for acute displaced fracture or dislocation. 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 Severe diffuse soft tissue swelling about the wrist. No cortical destruction. Osteopenia. Reading Location: [facility] CC: Dr. Clarice Murillo MD; Dr. Eduardo Hartley DO Press Tender Star Signal: Signed Normal [facility] CNOVon 11-03-2024 [facility] Office Visit (UCWSTR ) PACO WHITNEY ([id number]) 1935 M Date Time Provider Department 11/03/24 8:30 AM JYOTHI MOSLEY [facility] During your visit today, we recorded the following information about you: Temperature Pulse Respiration Blood pressure 97.8 degrees 68/minute 16/minute 132/72 Weight 91.1 kg Jyothi Mosley APRN.BORDER MEASURER 11/03/2024 9:08 AM Signed [facility] Subjective Paco Whitney is a [...] history is provided by the patient. No foreign language stenographer was used. Review of Systems Constitutional: Negative [...] inhaler or nebulizer prn Follow up with machining associate as needed Diagnosis and treatment plan were discussed and questions were answered to the patient's satisfaction. Pt acknowledged understanding of concepts and follow up plan. Specific signs and symptoms that would indicate the need for higher level of (more content not included)... Normal [facility] COVID-19 MOLECULAR (POC)on 0 11-03-2024 Procedural Control Valid [facility] SARS-CoV-2 (COVID-19) RNA DEV+probe Ql (Unsp spec) Negative Negative [facility] Comment on above: Location:[facility], [address] [place] [address], [place], [address] [facility] CNOVon 09-24-2024 CNOV Office Visit (PULMWS ) PACO WHITNEY ([id number]) 1935 M Date Time Provider Department 09/24/24 10:00 AM FRANCIA LUNA PULMWS During your visit today, we recorded the following information about you: Pulse Respiration Blood pressure Weight 74/minute 16/minute 118/73 90.2 kg Francia Luna MD 09/24/2024 7:37 PM Signed . Respiratory [place] Note Patient name: Paco Whitney PCP: Clarice [...] Take 1 capsule by mouth once daily. zmjyqcxq-rnneqvyme-qrnxzcvcj isone (CORTISPORIN) 3.5-10,000-1 mg/mL-unit/mL-% otic suspension Use [...] no thrush. (more content not included)... Normal [facility] CNOVon 08-01-2024 CNOV Office Visit (DEANAWS ) PACO WHITNEY Josefina ([id number]) 1935 M Date Time Provider Department 08/01/24 2:40 PM KARLA CAMPUZANO During your visit today, we recorded the following information about you: Pulse Respiration Blood pressure Weight 71/minute 16/minute 104/62 89.7 kg Karla Campuzano APRN.BORDER MEASURER 08/01/2024 3:33 PM Signed This is a [...] W/COLLJ SPEC WHEN PFRMD 09/19/2011 Colonoscopy inpt [facility] ENDOVASCULAR ANEURYSM REPAIR 01/2013 with bi-liac [...] on empty stomach, 1/2 hr before meal. ahhqvmzp-opzaehldg-cuxjdfuln isone (CORTISPORIN) 3.5-10,000-1 mg/mL-unit/mL-% otic suspension Use [...] by mo (more content not included)... Normal [facility] Comprehensive metabolic 2000 panelon 07-24-2024 Albumin [Mass/Vol] 4.2 g/dL Normal 3.9-4.[address] [facility] Comment on above: Order Comment: Speci men Type: BLOOD SPECIMEN Ordering Facility: [facility] Address: [address] [place] [address] Performed By: #### 5 5454-3 #### [facility] CLIA [id number] [address] [place] [id number] [place] ALP [Catalytic activity/Vol] 81 U/L Normal 38-113 [facility] Comment on above: Order Comment: Speci men Type: BLOOD SPECIMEN Ordering Facility: [facility] Address: [address] [place] [address] Performed By: #### 5 5454-3 #### [facility] CLIA [id number] [address] [place] [address] [place] ALT [Catalytic activity/Vol] 20 U/L Normal 10-54 [facility] Comment on above: Order Comment: Speci men Type: BLOOD SPECIMEN Ordering Facility: [facility] Address: [address] [place] [address] Performed By: #### 5 5454-3 #### [facility] CLIA [id number] [address] [place] [address] [place] Anion gap [Moles/Vol] 12 mmol/L Normal 8-15 [facility] Comment on above: Order Comment: Speci men Type: BLOOD SPECIMEN Ordering Facility: [facility] Address: [address] [place] [address] Performed By: #### 5 5454-3 #### [facility] CLIA [id number] [address] [place] [address] [place] AST [Catalytic activity/Vol] 26 U/L Normal 14-40 [facility] Comment on above: Order Comment: Speci men Type: BLOOD SPECIMEN Ordering Facility: [facility] Address: [address] [place], [place] [address] Performed By: #### 5 5454-3 #### [facility] CLIA [id number] [address] [place] [address] [place] Bilirubin [Mass/Vol] 0.9 mg/dL Normal 0.2-1.3 [facility] Comment on above: Order Comment: Speci men Type: BLOOD SPECIMEN Ordering Facility: [facility] Address: [address] [place] [address] Performed By: #### 5 5454-3 #### [facility] CLIA [id number] [address] [place] [address] [place] Calcium [Mass/Vol] 10.2 mg/dL Normal 8.5-10.[address] [facility] Comment on above: Order Comment: Speci men Type: BLOOD SPECIMEN Ordering Facility: [facility] Address: [address] [place] [address] Performed By: #### 5 5454-3 #### [facility] CLIA [id number] [address] [place] [address] [place] Chloride [Moles/Vol] 106 mmol/L Normal 98-107 [facility] Comment on above: Order Comment: Speci men Type: BLOOD SPECIMEN Ordering Facility: [facility] Address: [address] [place] [address] Performed By: #### 5 5454-3 #### [facility] CLIA [id number] [address] [place] [address] [place] CO2 [Moles/Vol] 25 mmol/L Normal 22-30 [facility] Comment on above: Order Comment: Speci men Type: BLOOD SPECIMEN Ordering Facility: [facility] Address: [address] [place] [address] Performed By: #### 5 5454-3 #### [facility] CLIA [id number] [address] [place] [address] [place] Creatinine [Mass/Vol] 1.00 mg/dL Normal 0.73-1.22 [facility] Comment on above: Order Comment: Speci men Type: BLOOD SPECIMEN Ordering Facility: [facility] Address: [address] [place] [address] Performed By: #### 5 5454-3 #### [facility] CLIA [id number] [address] [place] [address] [place] Creatinine and Glomerular filtration rate.predicted panel (S/P/Bld) 73 mL/min/1.73m??? Normal >=60 [facility] Comment on above: Order Comment: Zach vinson Type: BLOOD SPECIMEN Ordering Facility: [facility] Address: [address] [place] [address] Result Comment: Toya mated Glomerular Filtration Rate [...] accurately reflect actual GFR. Performed By: #### 5 5454-3 #### [facility] CLIA [id number] [address] [place] [address] [place] Glucose [Mass/Vol] 107 mg/dL High 74-[address] [facility] Comment on above: Order Comment: Zach vinson Type: BLOOD SPECIMEN Ordering Facility: [facility] Address: [address] [place] [address] Result Comment: The British Diabetes Association (ADA) provides guidance for cutoff [...] Standards of Medical Care in Diabetes 2016, British Diabetes Association. Diabetes Care. 2016.39(Suppl 1). Performed By: #### 5 5454-3 #### [facility] CLIA [id number] [address] [place] [address] [place] Potassium [Moles/Vol] 4.5 mmol/L Normal 3.7-5.1 [facility] Comment on above: Order Comment: Speci men Type: BLOOD SPECIMEN Ordering Facility: [facility] Address: [address] [place] [address] Performed By: #### 5 5454-3 #### [facility] CLIA [id number] [address] [place] [address] [place] Protein [Mass/Vol] 7.0 g/dL Normal 6.3-8.[address] [facility] Comment on above: Order Comment: Speci men Type: BLOOD SPECIMEN Ordering Facility: [facility] Address: [address] [place] [address] Performed By: #### 5 5454-3 #### [facility] CLIA [id number] [address] [place] [address] [place] Sodium [Moles/Vol] 143 mmol/L Normal 136-[address] [facility] Comment on above: Order Comment: Speci men Type: BLOOD SPECIMEN Ordering Facility: [facility] Address: [address] [place] [address] Performed By: #### 5 5454-3 #### [facility] CLIA [id number] [address] [place] [address] [place] Urea nitrogen [Mass/Vol] 27 mg/dL High 9-24 [facility] Comment on above: Order Comment: Speci men Type: BLOOD SPECIMEN Ordering Facility: [facility] Address: [address] [place] [address] Performed By: #### 5 5454-3 #### [facility] CLIA [id number] [address] [place], [place] [address] [place] Lipid 1996 panelon 5 Cholesterol [Mass/Vol] 159 mg/dL Normal <200 [facility] Comment on above: Order Comment: Speci men Type: BLOOD SPECIMEN Ordering Facility: [facility] Address: [address] [place] [address] Result Comment: <200 mg/dL, Desirable 200-239 mg/dL, Borderline high >239 mg/dL, High Performed By: #### 5 5454-3 #### [facility] CLIA [id number] [address] [place] [address] [place] Cholesterol in HDL [Mass/Vol] 33 mg/dL Low >39 [facility] Comment on above: Order Comment: Zach vinson Type: BLOOD SPECIMEN Ordering Facility: [facility] Address: [address] [place] [address] Result Comment: 40-5 9 mg/dL, Acceptable >59 mg/dL, High: Negative risk factor for coronary heart disease <40 mg/dL, Low: Positive risk factor for coronary heart disease Performed By: #### 5 5454-3 #### [facility] CLIA [id number] [address] [place] [address] Cholesterol in LDL [Mass/Vol] 86 mg/dL Normal <100 [facility] Comment on above: Order Comment: Zach vinson Type: BLOOD SPECIMEN Ordering Facility: [facility] Address: [address] [place] [address] Result Comment: <100 mg/dL, Optimal 100-129 mg/dL, Near optimal/above optimal 130-159 mg/dL, Borderline high 160-189 mg/dL, High >189 mg/dL, Very high Secondary prevention optimal LDL Cholesterol levels are recommended to be < 70 mg/dL Performed By: #### 5 5454-3 #### [facility] CLIA [id number] [address] [place] [address] STATES [place] [facility] Cholesterol in LDL/Cholesterol in HDL [Mass ratio] 2.61 {ratio} High <2.54 [facility] Comment on above: Order Comment: Zach [facility] Type: BLOOD SPECIMEN Ordering Facility: [facility] Address: [address] [place] [address] Result Comment: Arnoldo ross: 1. National Cholesterol Education Program ATP III Guideline At-A-Glance Quick Desk Reference: National Heart, Lung, and Blood [place]. National Institutes of Health. 2001: NIH Publication No. 01-3305. 2. An International Atherosclerosis Society position paper: global recommendations for the management of dyslipidemia: executive summary, Atherosclerosis. 2014: 232(2):410-413. Performed By: #### 5 5454-3 #### [facility] CLIA [id number] [address] [place] [address] [place] Cholesterol in VLDL [Mass/Vol] 40 mg/dL High <30 [facility] Comment on above: Order Comment: Speci men Type: BLOOD SPECIMEN Ordering Facility: [facility] Address: [address] [place] [address] Performed By: #### 5 5454-3 #### [facility] CLIA [id number] [address] [place] [address] [place] Cholesterol non HDL [Mass/Vol] 126 mg/dL Normal <130 [facility] Comment on above: Order Comment: Zach vinson Type: BLOOD SPECIMEN Ordering Facility: [facility] Address: [address] [place] [address] Result Comment: <130 mg/dL, Optimal 130-159 mg/dL, Near optimal/above optimal 160-189 mg/dL, Borderline high 190-219 mg/dL, High >219 mg/dL, Very high Secondary prevention optimal non HDL Cholesterol levels are recommended to be <100 mg/dL Performed By: #### 5 5454-3 #### [facility] CLIA [id number] [address] [place] [address] [place] Cholesterol.total/Chol esterol in HDL [Mass ratio] 4.82 {ratio} Normal <5.10 [facility] Comment on above: Order Comment: Maryi men Type: BLOOD SPECIMEN Ordering Facility: [facility] Address: [address] [place] [address] Performed By: #### 5 5454-3 #### [facility] CLIA [id number] [address] [place], [place] [address] [place] FASTING TIME 12 hrs Normal [facility] Comment on above: Order Comment: Maryi men Type: BLOOD SPECIMEN Ordering Facility: [facility] Address: [address] [place] [address] Performed By: #### 5 5454-3 #### [facility] CLIA [id number] [address] [place] [address] [place] Triglyceride [Mass/Vol] 200 mg/dL High <150 [facility] Comment on above: Order Comment: Speci men Type: BLOOD SPECIMEN Ordering Facility: [facility] Address: [address] [place] [address] Result Comment: <150 mg/dL, Normal 150-199 mg/dL, Borderline high 200-499 mg/dL, High >499 mg/dL, Very high Performed By: #### 5 5454-3 #### [facility] CLIA [id number] [address] [place] [address] [place] CTA ABD/PEL WO/W IVCONon [facility] Basic metabolic 2000 panelon 02-01-2023 Anion gap [Moles/Vol] 7 mmol/L Low -18 [facility] Comment on above: Order Comment: Speci men Type: BLOOD SPECIMENOrdering Facility: [facility] Address: [address] Performed By: #### 2 4321-2, ####[facility]ORY[facility]IA [id number] [place] [address] [place] Calcium [Mass/Vol] 8.9 mg/dL Normal 8.5-10.2 [facility] Comment on above: Order Comment: Speci men Type: BLOOD SPECIMENOrdering Facility: [facility] Address: [address] [place] [address] Performed By: #### 2 4321-2, ####[facility]ORYCLIA [id number] [place] [address] [place] Chloride [Moles/Vol] 105 mmol/L Normal 97-105 [facility] Comment on above: Order Comment: Speci men Type: BLOOD SPECIMENOrdering Facility: [facility] Address: [address] [place] [address] Performed By: #### 2 432-2, ####[facility]ORYCLIA [id number] [place] [id number] [place] CO2 [Moles/Vol] 27 mmol/L Normal 22-30 [facility] Comment on above: Order Comment: Speci men Type: BLOOD SPECIMENOrdering Facility: [facility] Address: [address] [place] [address] Performed By: #### 2 4320-, ####[facility] LABORATORYCLIA [id number] [place] [id number] [place] Creatinine [Mass/Vol] 1.13 mg/dL Normal 0.73-1.22 [facility] Comment on above: Order Comment: Speci men Type: BLOOD SPECIMENOrdering Facility: [facility] Address: [address] [place] [address] Performed By: #### 2 4320-08, ####[facility]ORYCLIA [id number] [place] [address] [place] ESTIMATED GLOMERULAR FILTRATION RATE 64 mL/min/1.73m??? Normal >=60 [facility] Comment on above: Order Comment: Maryi men Type: BLOOD SPECIMENOrdering Facility: [facility] Address: [address] [place] [address] Result Comment: Toya mated Glomerular Filtration Rate [...] reflect actual GFR. Performed By: #### 2 2, ####[facility] LABORATORYCLIA [id number] [place] [id number] [place] Glucose [Mass/Vol] 118 mg/dL High 74-99 [facility] Comment on above: Order Comment: Speci men Type: BLOOD SPECIMENOrdering Facility: [facility] Address: [address] [place] [id number] Result Comment: The British Diabetes Association (ADA) provides guidance for cutoff [...] Standards of Medical Care in Diabetes 2016, British Diabetes Association. Diabetes Care. 2016.39(Suppl 1). Performed By: #### 2 4321-2, ####[facility]ORYCLIA [id number] [place] [address] [place] Potassium [Moles/Vol] 3.9 mmol/L Normal 3.7-5.1 [facility] Comment on above: Order Comment: Speci men Type: BLOOD SPECIMENOrdering Facility: [facility] Address: [address] [place] [address] Performed By: #### 2 4320-08, ####[facility] LABORATORYCLIA [id number] [place] [address] [place] Sodium [Moles/Vol] 139 mmol/L Normal 136-144 [facility] Comment on above: Order Comment: Speci men Type: BLOOD SPECIMENOrdering Facility: [facility] Address: [address] Performed By: #### 2 4320-2, ####[facility] LABORATORYCLIA [id number] [place] [address] [place] Urea nitrogen [Mass/Vol] 19 mg/dL Normal 9-24 [facility] Comment on above: Order Comment: Speci men Type: BLOOD SPECIMENOrdering Facility: [facility] Address: [address] [address] Performed By: #### 2 4320-2, 56042-1 ####[facility] LABORATORYCLIA [id number] [address] CBC panel Auto (Bld)on 02-01 Erythrocyte distribution width (RBC) [Ratio] 14.0 % Normal 11.5-15.0 [facility] Comment on above: Order Comment: Speci men Type: BLOOD SPECIMEN [facility] Address: [address] [place] [address] Performed By: #### 5 8410-2 #### [facility] CLIA [id number] [address] [place] [address] Hematocrit (Bld) [Volume fraction] 35.8 % Low 39.0-51.0 [facility] Comment on above: Order Comment: Speci men Type: BLOOD SPECIMEN [facility] Address: [address] [place] [address] Performed By: #### 5 8410-2 #### [facility] CLIA [id number] [address] [place] [address] [place] Hemoglobin (Bld) [Mass/Vol] 11.9 g/dL Low 13.0-17.0 [facility] Comment on above: Order Comment: Speci men Type: BLOOD SPECIMEN [facility] Address: [address] [place] [address] Performed By: #### 5 8410-2 #### [facility] CLIA [id number] [address] [place] [address] STATES [facility] MCH (RBC) [Entitic mass] 31.6 pg Normal 26.0-34.0 [facility] Comment on above: Order Comment: Speci men Type: BLOOD SPECIMEN [facility] Address: [address] [place] [address] Performed By: #### 5 8410-2 #### [facility] CLIA [id number] [address] [place] [address] [place] MCHC (RBC) [Mass/Vol] 33.2 g/dL Normal 30.5-36.0 [facility] Comment on above: Order Comment: Speci men Type: BLOOD SPECIMEN [facility] Address: [address] [address] Performed By: #### 5 8410-2 #### [facility] CLIA [id number] [address] [place] [address] [place] MCV (RBC) [Entitic vol] 95.0 fL Normal 80.0-100.0 [facility] Comment on above: Order Comment: Speci men Type: BLOOD SPECIMEN [facility] Address: [address] [address] Performed By: #### 5 8410-2 #### [facility] CLIA [id number] [address] [place] [address] [place] Nucleated RBC (Bld) [#/Vol] 10*3/uL Normal <0.01 [facility] Comment on above: Order Comment: Speci men Type: BLOOD SPECIMEN [facility] Address: [address] [address] Performed By: #### 5 8410-2 #### [facility] CLIA [id number] [address] [place] [address] [place] Platelet mean volume (Bld) [Entitic vol] 9.2 fL Normal 9.0-12.7 [facility] Comment on above: Order Comment: Speci men Type: BLOOD SPECIMEN [facility] Address: [address] [address] Performed By: #### 5 8410-2 #### [facility] CLIA [id number] [address] [place] [address] [place] Platelets (Bld) [#/Vol] 152 10*3/uL Normal 150-400 [facility] Comment on above: Order Comment: Speci men Type: BLOOD SPECIMEN [facility] Address: [address] [address] Performed By: #### 5 8410-2 #### [facility] CLIA [id number] [address] [place] [address] [place] RBC (Bld) [#/Vol] 3.77 10*6/uL Low 4.20-6.00 [facility] Comment on above: Order Comment: Speci men Type: BLOOD SPECIMEN [facility] Address: [address] [place] [address] Performed By: #### 5 8410-2 #### [facility] CLIA [id number] [place] [address] [place] WBC (Bld) [#/Vol] 6.60 10*3/uL Normal 3.70-11.00 [facility] Comment on above: Order Comment: Speci men Type: BLOOD SPECIMEN [facility] Address: [address] [place] [address] Performed By: #### 5 8410-2 #### [facility] CLIA [id number] [place] [address] [place] Magnesium SerPl-mCncon 02-01 Magnesium [Mass/Vol] 1.5 mg/dL Low 1.7-2.3 [facility] Comment on above: Order Comment: Speci men Type: BLOOD SPECIMENOrdering Facility: [facility] Address: [address] [place] [address] Performed By: #### 2 4321-2, 59288-3 ####[facility] LABORATORYCLIA [id number] [place] [address] [place] ANES POSTPROC EVALon 023 ANES POSTPROC EVAL HNO ID: [id number] Author: Rylie Schulz MD Service: Critical Care Author Type: Anesthesiologist Type: Anesthesia Postprocedure Evaluation Filed: 01/31/2023 12:42 PM Note Text: POST ANESTHESIA EVALUATION NOTE : 1935 Procedure Summary Date: 01/31/23 Room / Location: ORA / FV OR Anesthesia Start: 741 Anesthesia Stop: 7 Procedure: ENDOVASCULAR REPAIR AORTA TO RENAL LEVEL,W/AORTO-AORTIC [...] January 31, 2023 TIME: 12:41 PM CSN: [id number] [facility] ANES PRE-OPon 01-31-2023 ANES PRE-OP HNO ID: [id number] Author: Rylie Schulz MD Service: Critical Care Author Type: Anesthesiologist Type: Anesthesia Preprocedure Evaluation Filed: 01/31/2023 7:24 AM Note Text: ANESTHESIOLOGY DAY OF SURGERY NOTE : 1935 Procedure Information Date/Time: 01/31/23729 Procedure: ENDOVASCULAR REPAIR AORTA TO RENAL LEVEL,W/AORTO-AORTIC ENDOGRAFT,WITHOUT RUPTURE (Aorta) - Endovascular aortic aneurysm repair with iliac branch device - Damián Pierre from [employer] will bring implant - 01/17 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 Patient / Responsible [employer] Party agrees to proceed: yes Patient / [...] affected area twice daily. As needed) - hkocdsqr-rdjsqawgw-lsedokniz isone (CORTISPORIN) 3.5-10,000-1 mg/mL-unit/mL-% otic suspension Use [...] January 31, 2023 TIME: 7:18 AM CSN: [id number] [facility] BRIEF OP NOTon 01-31-2023 BRIEF OP NOT HNO ID: [id number] Author: Boris Ramey MD Service: Vascular Surgery Author Type: Resident Type: Brief Op Note Filed: 01/31/2023 12:11 PM Note Text: BRIEF OPERATIVE / PROCEDURE NOTE LOG ID: [id number] Surgery/Procedure Date: 01/31/2023 Incision/Procedure Start Time: 8:58 AM Incision Close/Procedure End Time: 11:51 AM Surgeon(s)/Proceduralist(s) and Artificial Inseminator(s): Surgeon(s) and Role: * Eladio Pablo MD - Primary * Boris Ramey MD - Resident - Assisting No Additional Staff Procedure(s): ENDOVASCULAR REPAIR AORTA TO RENAL LEVEL,W/AORTO-AORTIC ENDOGRAFT,WITHOUT RUPTURE: 83258 (CPT?) KRISTOPHER AAA: Endo AAA Hypogastric Intentionally Covered: No Hypogastric Unintentionally Covered: Right - Patent and Left - Patent Access: Percutaneous Contrast Volume: 80 cc Endoleak Type: Lumbar branch (II) Unfit for Open Repair: Yes, due to frailty Devices Used: [place] Excluder and Iliac branch device Fluoro Time: 32.2 min, 2196 mGy Anesthesia: General ASA Class: Findings: LEFT Iliac branch device [id number] mainbody and [id number] hypogastric limb. 32x14.5x14cm [place] Excluder Main body EVAR component, bridged IBD and main body with a 27mm Gould limb and extended the R iliac limb with a [id number] Gould limb into the R MARCIN aneurysm. [...] to affected area twice daily. As needed) fqgdhtrt-pagsxbjei-bzplrgsdz isone (CORTISPORIN) 3.5-10,000-1 mg/mL-unit/mL-% otic suspension Use [...] 31, 2023 TIME: 12:04 PM PAGER/CONTACT #: [phone] [facility] 01-31-2023 [facility] HNO ID: [id number] Author: Ibeth Paredes APRN.CNP Service: Vascular Surgery Author Type: Nurse Practitioner Type: Discharge Summary Filed: 02/01/2023 10:56 AM Note Text: Attestation signed by Eladio Pablo MD at 02/01/2023 1:13 PM agree Department of Vascular Surgery Discharge Summary (Template ID [id number]) PATIENT NAME: Paco Whitney ADMISSION DATE: 01/31/2023 [...] discharge * ID/Microbiology: Lauren-op Ancef * Pain: Shila Tylenol, Oxy PRN, Fentanyl breakthrough, home Gabapentin [...] abdominal 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) (01/31/2023) COPD (chronic obstructive pulmonary disease) ([facility]) () Essential hypertension, benign () Hyperlipidemia () [...] as: M (more content not included)... Normal [facility] CONFIRM BLOOD TYPEon 023 ABO O [facility] Comment on above: Order Comment: Speci men Type: BLOOD SPECIMENOrdering Facility: [facility] Address: [address] [place] [address] Performed By: #### C ONABO ####[facility]LO[facility] BANKCLIA [id number] [address] Rh Nom (Bld) Negative [facility] Comment on above: Order Comment: Speci men Type: BLOOD SPECIMENOrdering Facility: [facility] Address: [address] [place] [address] Performed By: #### C ONABO ####[facility]LO[facility] BANKCLIA [id number] [address] HISTORY PHYSICALon HISTORY PHYSICAL HNO ID: [id number] Author: Reji Zarco MD Service: Critical Care Author Type: Resident Type: HANDP Filed: 01/31/2023 12:52 PM Note Text: Attestation signed by Pallavi Cazares MD at 01/31/2023 3:58 PM [facility] STAFF PHYSICIAN SUPERVISING RESIDENT I have reviewed the progress note obtained and documented by the resident. I have discussed the case and the plan and management of the patient's care with the resident and the bedside nurse. The following comments revise or confirm relevant bah components of the note: 87 year old s/p SHAWNAAR is in ICU for vascular check. Currently [...] GERD, BPH, and AAA who presents to [facility] for AAA repair. The patient has undergone [...] W/COLLJ SPEC WHEN PFRMD 09/19/2011 Colonoscopy inpt [facility] HERNIA REPAIR HX 04/03/13 PAST SURGICAL [...] mouth once daily., Disp: 30 tablet, Rfl: 11, 01/31/2023 aspirin 81 mg cap, Take 1 capsule by mouth once daily., Disp: , Rfl: , Past Week albuterol HFA (VENTOLIN HFA) 90 mcg/actuation inhaler, Inhale 2 Puffs as instructed every 4 hours as needed for Wheezing/Shortness of Breath., Disp: 18 g, Rfl: 11, 01/31/2023 cholecalciferol (VITAMIN D3) 1,000 unit tab tablet, Cholecalciferol (Vit D3 (more content not included)... [facility] NURSING PROGon 01-31-2023 NURSING PROG HNO ID: [id number] Author: Pamela Sparks RN Service: Nursing Author [...] (RECOMMENDATION): None Electronically Signed By: Pamela Sparks [facility] OPERATIVE NOon 01-31-2023 OPERATIVE NO HNO ID: [id number] Author: Eladio Pablo MD Service: Vascular Surgery Author Type: Physician Type: Operative Report Filed: 01/31/2023 9:58 PM Note Text: OPERATIVE/PROCEDURE REPORT LOG ID: [id number] Surgery/Procedure Date: 01/31/2023 Incision/Procedure Start Time:8:58 AM Incision Close/Procedure End Time: 11:51 AM Surgeon(s)/Proceduralist(s) and Artificial Inseminator(s): Surgeon(s) and Role: * Eladio Pablo MD [...] tipped Amplatz wire was placed. A 14x7 [place] hypogastric limb was used to stent the [...] the appropriate length. A bridge graft 27x10 [place] Excluder was placed and deployed. The marking catheter was then placed up the ipsilateral side and a pelvic angiogram performed through the sheath to determine the location of the hypogastric artery and to determine the appropriate limb length extension. A 27 x10 bellbottom [place] extension was placed as the ipsilateral iliac [...] in stable condition. Implantable Devices: Main body [place] Excluder Conformable [id number] Ipsilateral extension [place] Excluder 27x10 gould bottom Iliac branch endoprosthesis [place] Excluder [id number] Hypogastric branch [place] Excluder 14 x 7 Bridge graft [place] Excluder 27x10 Pre-Op/Pre-Procedure Diagnosi (more content not included)... Normal [facility] TYPE AND SCREEN,30 DAYon ABO O [facility] HIstorical Ab Scr Status Negative [facility] Rh Nom (Bld) Negative [facility] NM CARDIAC PERF STRESS/PHARM on 11-29-2022 [...] later. See administered radiotracer and doses below. [facility] Date of service: 11/29/2022 9:55:40 AM Ordering [...] Final * * * Stress ECG Report: [facility] Date of service: 11/29/2022 9:55:40 AM Ordering physician: ELADIO PABLO strategic communications specialist: Tosha Fernando Artificial Inseminator: Lucina Mccarthy Interpreting physician: Kris Jones MD [...] 6 66 113 61 +-----+--+---+---+ +-----+--+---+---+ HR SYS TIM +-----+--+---+---+ Final 73 112 58 +-----+--+---+---+ [...] * Stress Super (more content not included)... [facility] Ortiz 11-26-2022 CNPN Telephone (CDLBME) PACO WHITNEY ([id number]) 1935 M Date Time Provider Department 11/26/22 TOSHA FERNANDO CDLBME During your visit today, we recorded the [...] Fully Assessed Reason for Visit: Reminder Call [7412] Prescriptions as of 11/26/2022 - ramipril (ALTACE) [...] 1 capsule by mouth once daily. - hyrcbsgv-ygrbkjxcd-saepszpaf isone (CORTISPORIN) 3.5-10,000-1 mg/mL-unit/mL-% otic suspension Use [...] Status:Closed by TOSHA FERNANDO on 11/26/22 Normal [facility] CT ABD/PEL WO IVCONon 2022 Radiology Result ACTIONABLE Abnormal [facility] No Panel Informationon 10-[address] [facility] [address] CHEST WO IVCONon 07-08-20 [facility] SPIROMETRY WITH DILATOR IF O BSTRUCTEDon 07-06-2022 RJN10-53% PRE (L/S) 1.60 L/S [facility] FEV1 PRE (L) 2.39 L [facility] FEV1/FVC PRE (%) 72 % [facility] FVC PRE (L) 3.30 L [facility] PEF PRE (L/S) 7.30 L/S [facility] XR Chest PA and Lateralon IMPRESSION: 1. Stable appearing 3 cm right lower lobe mass. 2. Underlying pulmonary fibrosis. Press Tender Star Signal: PENNY Transcribe Date/Time: Jun 08 2022 3:23P Dictated by : ZAC WASSERMAN MD This examination was interpreted and the report reviewed and electronically signed by: ZAC WASSERMAN MD on Jun 08 2022 3:27PM [facility] DIVISION OF RADIOLOGY * * [...] lumbar vertebral body. DIVISION OF RADIOLOGY [facility] * * *Final Report* [...] lower lobe mass. 2. Underlying pulmonary fibrosis. Press Tender Star Signal: PSCRaleigh Transcribe Date/Time: Jun 08 2022 3:23P Dictated by : ZAC WASSERMAN MD This examination was interpreted and the report reviewed and electronically signed by: ZAC WASSERMAN MD on Jun 08 2022 3:27PM EST [facility] Radiology Study observation (narrative) [facility] XR Chest PA and LateralOrder ed By: Ccf Provider on 06-08-2022 [facility] CNOVon 12-06-2018 CNOV Office Visit (AKURFL ) PACO WHITNEY ([id number]) 1935 M Date Time Provider Department 12/06/18 2:00 PM CHALINO VALDEZ During your visit today, we recorded the following information about you: Blood pressure Weight Height 122/66 97.5 kg 1.676 m Mecca Lombardo CMA 12/06/2018 2:25 PM Signed No urine sample given. Mecca Lombardo [facility] Chalino Valdez DO, MBA 12/07/2018 10:55 AM Signed ?? [facility] [place] [facility] LOCATION: [address] [place] [address] ESTABLISHED PATIENT PATIENT INFO: Paco Whitney 83 [...] 51.1 Lymph% (%) Date Value 12/20/2014 31.4 [place]% (%) Date Value 12/20/2014 13.2 Eosin% (%) Date Value 12/20/2014 3.8 Baso% (%) Date Value 12/20/2014 0.5 Abs Neut (ANC) (k/uL) Date Value 12/20/2014 2.97 Abs [place] (k/uL) Date Value 12/20/2014 0.77 Abs Eosin [...] Status 02/26/2009 5.0 4.5 - 8.0 Specific [place], Ur Date Value Ref Range Status 02/26/2009 [...] Take 5 mL by mouth twice daily. mctezanr-ugrwcmvbv-lfoutargt isone (CORTISPORIN) 3.5-10,000-1 mg/mL-unit/mL-% otic suspension Use [...] advantage with preservation of long-term renal function roasterman and the equivalent long-term cancer control rates [...] Time: 10:54 AM Referring Provider: JIL HENRIQUEZ) [[id number]] Allergies As of Date: 12/06/2018 Noted Allergy [...] symptoms present [N40.0] Order(s):CT KIDNEY WO/W IVCON [[id number]] Order #: [id number] FUTURE iv contrast (will be provided with [...] EachRfl: 0 CREATININE BLD [SQCRET] Order #: [id number] FUTURE Prescriptions as of 12/06/2018 Sig: IV [...] Take 5 mL by mouth twice leyla* UXYDENWY-TQOXQVNEM-LFTMHBMIW * Use 4 Drops in the ears [...] Encounter Status:Closed by CHALINO VALDEZ on 12/07/18 [facility] PROGRESSon 12-06-2018 Protein mass conc HNO ID: [id number] Author: Chalino Valdez Service: ? Author Type: Physician Type: Progress Notes Filed: 12/07/2018 10:55 AM Note Text: ?? [facility] [place] [facility] LOCATION: [address] [place] [address] ESTABLISHED PATIENT PATIENT INFO: Paco Whitney 83 [...] 51.1 Lymph% (%) Date Value 12/20/2014 31.4 [place]% (%) Date Value 12/20/2014 13.2 Eosin% (%) Date Value 12/20/2014 3.8 Baso% (%) Date Value 12/20/2014 0.5 Abs Neut (ANC) (k/uL) Date Value 12/20/2014 2.97 Abs [place] (k/uL) Date Value 12/20/2014 0.77 Abs Eosin [...] Status 02/26/2009 5.0 4.5 - 8.0 Specific [place]orton, Ur Date Value Ref Range Status 02/26/2009 [...] Take 5 mL by mouth twice daily. xuzztlgm-slzgnhqxa-ebjtqhpoo isone (CORTISPORIN) 3.5-10,000-1 mg/mL-unit/mL-% otic suspension Use [...] advantage with preservation of long-term renal function roasterman and the equivalent long-term cancer control rates [...] MBA Date: 12/07/2018 Time: 10:54 AM Normal [facility] CT BRAIN W/O CONTRASTon - CT BRAIN W/O CONTRAST [address] [place] [address] Patient: PACO WHITNEY Phone#: : 1935 Age: 82 Gender: M Pt. Type: ER Account: [id number] Location: 052 Ordering: EVELYN MADDEN Exam Date: 02/12/2018/13:39 Family Phys: CLARICE MURILLO Charge Code: [id number] Physician: [place] Order #: [id number] DLP Dose#: 57.50 PROCEDURE: CT BRAIN WITHOUT [...] 82 Gender: M Pt. Type: ER Account: [id number] Location: 052 Ordering: EVELYN MADDEN Exam Date: 02/12/2018/13:39 Family Phys: CLARICE MURILLO Charge Code: [id number] Physician: [place] Order #: [id number] DLP Dose#: 57.50 Dictated by: Gail Morrison MD on 02/12/2018 at 17:20 Approved by: Gail Morrison MD on 02/12/2018 at 17:[address] [facility] CT CERVICAL W/O CONTRASTon 0 02-12-2018 CT CERVICAL W/O CONTRAST [address] [place], [place] [address] Patient: PACO WHITNEY Phone#: : 1935 Age: 82 Gender: M Pt. Type: ER Account: [id number] Location: [facility] Ordering: EVELYN MADDEN Exam Date: 02/12/2018/13:39 Family Phys: CLARICE Aroldo MURILLO Charge Code: 202645 Physician: [place] Order #: [id number] DLP Dose#: 12.00 PROCEDURE: CT CERVICAL WITHOUT [...] 82 Gender: M Pt. Type: ER Account: [id number] Location: 052 Ordering: EVELYN MADDEN Exam Date: 02/12/2018/13:39 Family Phys: CLARICE MURILLO Charge Code: [id number] Physician: [place] Order #: [id number] DLP Dose#: 12.00 1. 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 2. There is disc space narrowing at the C3-4 level. Dictated by: Gail Morrison MD on 02/12/2018 at 17:23 Approved by: Gail Morrison MD on 02/12/2018 at 17:[address] [facility] CT CHEST/ABD/PELVIS C-C+on 0 02-12-2018 CT CHEST/ABD/PELVIS C-C+ [place] [address] Patient: PACO WHITNEY Phone#: : 1935 Age: 82 Gender: M Pt. Type: ER Account: [id number] Location: 052 Ordering: EVELYN MADDEN Exam Date: 02/12/2018/13:45 Family Phys: CLARICE MURILLO Charge Code: 618462 Physician: [place] Order #: [id number] DLP Dose#: 64.7 PROCEDURE: CT CHEST/ABD/PELVIS W/WO [...] 82 Gender: M Pt. Type: ER Account: [id number] Location: 2 Ordering: EVELYN MADDEN Exam Date: 02/12/2018/13:45 Family Phys: CLARICE MURILLO Charge Code: 427654 Physician: [place] Order #: [id number] DLP Dose#: 64.7 ADRENALS: Normal. No mass [...] Morrison MD on 02/13/2018 at 9:[address] [facility] Large Joint Arthro/Inj: bila teral glenohumerals [facility] Vital Signs Date Time Vital Sign Value Performing Clinician Facility 04-02-2025 13:59-0400 Body mass index (BMI) [Ratio] 26.77 kg/m2 Francia Luna MD Work Phone: [facility] 04-02-2025 13:59-0400 Body weight 84.64 kg Francia Luna MD Work Phone: [facility] 04-02-2025 13:59-0400 Diastolic blood pressure 73 mm[Hg] Francia Luna MD Work Phone: [facility] 04-02-2025 13:59-0400 Heart rate 76 /min Francia Luna MD Work Phone: [facility] 04-02-2025 13:59-0400 SaO2% (BldA) [Mass fraction] 94 % Francia Luna MD Work Phone: [facility] 04-02-2025 13:59-0400 Systolic blood pressure 121 mm[Hg] Francia Luna MD Work Phone: [facility] 03-27-2025 13:51-0400 Body mass index (BMI) [Ratio] 27.41 kg/m2 Neisha Cope APRN.BORDER MEASURER Work Phone: [facility] 03-27-2025 13:51-0400 Body weight 86.64 kg Neisha Cope APRN.BORDER MEASURER Work Phone: [facility] 03-27-2025 13:51-0400 Diastolic blood pressure 54 mm[Hg] Neisha Cope GUN FITTER.BORDER MEASURER Work Phone: [facility] 03-27-2025 13:51-0400 Heart rate 72 /min Neisha Haagen GUN FITTER.BORDER MEASURER Work Phone: [facility] 03-27-2025 13:51-0400 Respiratory rate 16 /min Neisha Haagen GUN FITTER.BORDER MEASURER Work Phone: [facility] 03-27-2025 13:51-0400 SaO2% (BldA) [Mass fraction] 95 % Neisha Haagen GUN FITTER.BORDER MEASURER Work Phone: [facility] 03-27-2025 13:51-0400 Systolic blood pressure 98 mm[Hg] Neisha Haagen GUN FITTER.BORDER MEASURER Work Phone: [facility] 03-12-2025 17:28-0400 Body temperature 97.7 [degF] Dr. Clarice Murillo MD Work Phone: [facility] 03-12-2025 17:28-0400 Diastolic blood pressure 66 mm[Hg] Dr. Clarice Murillo MD Work Phone: [facility] 03-12-2025 17:28-0400 Heart rate 70 /min Dr. Clarice Murillo MD Work Phone: [facility] 03-12-2025 17:28-0400 Respiratory rate 16 /min Dr. Clarice Murillo MD Work Phone: [facility] 03-12-2025 17:28-0400 SaO2% (BldA) [Mass fraction] 93 % Dr. Clarice Murillo MD Work Phone: [facility] 03-12-2025 17:28-0400 Systolic blood pressure 110 mm[Hg] Dr. Clarice Murillo MD Work Phone: [facility] 03-12-2025 14:56-0400 Body mass index (BMI) [Ratio] 28.5 kg/m2 Dr. Clarice Murillo MD Work Phone: [facility] 03-11-2025 21:29-0400 Body height 170.[address] Clarice Murillo MD Work Phone: 0(258)[phone] [address] 03-11-2025 21:29-0400 Body weight 82.[address] Clarice Murillo MD Work Phone: 6(920)715-499405 [place] [address] 03-10-2025 20:07-0400 Body temperature 98.8 [degF] Dr. Clarice Murillo MD Work Phone: 5(914)[phone] [place] [address] 03-10-2025 20:07-0400 Diastolic blood pressure 69 mm[Hg] Dr. Clarice Murillo MD Work Phone: 9(508)350-834805 [place] [address] 03-10-2025 20:07-0400 Heart rate 63 /min Dr. Clarice Murillo MD Work Phone: 3(737)668-113505 [place] [address] 03-10-2025 20:07-0400 Respiratory rate 16 /min Dr. Clarice Murillo MD Work Phone: 0(506)[phone] [place] [address] 03-10-2025 20:07-0400 SaO2% (BldA) [Mass fraction] 95 % Dr. Clarice Murillo MD Work Phone: 6(973)923-509505 [place] [address] 03-10-2025 20:07-0400 Systolic blood pressure 123 mm[Hg] Dr. Clarice Murillo MD Work Phone: 9(015)953-107905 [place] [address] 03-10-2025 16:22-0400 Body mass index (BMI) [Ratio] 28.6 kg/m2 Dr. Clarice Murillo MD Work Phone: 9(920)597-447868 [place] [address] 03-10-2025 16:22-0400 Body weight [address] Clarice Murillo MD Work Phone: [phone] [place] [address] 03-10-2025 15:48-0400 Body height 175.[address] Clarice Murillo MD Work Phone: [phone] [place] [address] 02-05-2025 14:48-0400 Body mass index (BMI) [Ratio] 27.33 kg/m2 Clarice Murillo MD Work Phone: [facility] 02-05-2025 14:48-0400 Body weight 86.4 kg Clarice Murillo MD Work Phone: [facility] 02-05-2025 14:48-0400 Diastolic blood pressure 68 mm[Hg] Clarice Murillo MD Work Phone: [facility] 02-05-2025 14:48-0400 Heart rate 76 /min Clarice Murillo MD Work Phone: [facility] 02-05-2025 14:48-0400 Respiratory rate 16 /min Clarice Murillo MD Work Phone: [facility] 02-05-2025 14:48-0400 SaO2% (BldA) [Mass fraction] 94 % Clarice Murillo MD Work Phone: [facility] 02-05-2025 14:48-0400 Systolic blood pressure 110 mm[Hg] Clarice Murillo MD Work Phone: [facility] 11-10-2024 09:46-0400 Body temperature 97.7 [degF] Dr. lCarice Murillo MD Work Phone: [facility] 11-10-2024 09:46-0400 Diastolic blood pressure 58 mm[Hg] Dr. Clarice Murillo MD Work Phone: [facility] 11-10-2024 09:46-0400 Heart rate 71 /min Dr. Clarice Murillo MD Work Phone: [facility] 11-10-2024 09:46-0400 Respiratory rate 18 /min Dr. Clarice Murillo MD Work Phone: [facility] 11-10-2024 09:46-0400 SaO2% (BldA) [Mass fraction] 95 % Dr. Clarice Murillo MD Work Phone: [facility] 11-10-2024 09:46-0400 Systolic blood pressure 103 mm[Hg] Dr. Clarice Murillo MD Work Phone: [facility] 11-10-2024 05:33-0400 Body mass index (BMI) [Ratio] 29.7 kg/m2 Dr. Clarice Murillo MD Work Phone: [facility] 11-10-2024 05:33-0400 Body weight 90.[address] Clarice Murillo MD Work Phone: [facility] 11-08-2024 21:03-0400 Body height 175.[address] Clarice Murillo MD Work Phone: [facility] 11-03-2024 08:25-0400 Body mass index (BMI) [Ratio] 28.82 kg/m2 Jyothi Melany GUN FITTER.BORDER MEASURER Work Phone: [facility] 11-03-2024 08:25-0400 Body temperature 97.81 [degF] Jyothi Melany GUN FITTER.BORDER MEASURER Work Phone: [facility] 11-03-2024 08:25-0400 Body weight 91.1 kg Jyothi Mosley GUN FITTER.BORDER MEASURER Work Phone: [facility] 11-03-2024 08:25-0400 Diastolic blood pressure 72 mm[Hg] Jyothi Melany GUN FITTER.BORDER MEASURER Work Phone: [facility] 11-03-2024 08:25-0400 Heart rate 68 /min Jyothi Melany GUN FITTER.BORDER MEASURER Work Phone: [facility] 11-03-2024 08:25-0400 Respiratory rate 16 /min Jyothi Mosley GUN FITTER.BORDER MEASURER Work Phone: [facility] 11-03-2024 08:25-0400 SaO2% (BldA) [Mass fraction] 95 % Jyothi Sabillonk GUN FITTER.BORDER MEASURER Work Phone: [facility] 11-03-2024 08:25-0400 Systolic blood pressure 132 mm[Hg] Jyothi Mosley GUN FITTER.BORDER MEASURER Work Phone: [facility] 09-24-2024 10:02-0400 Body mass index (BMI) [Ratio] 28.52 kg/m2 Francia Luna MD Work Phone: [facility] 09-24-2024 10:02-0400 Body weight 90.17 kg Francia Luna MD Work Phone: [facility] 09-24-2024 10:02-0400 Diastolic blood pressure 73 mm[Hg] Francia Luna MD Work Phone: [facility] 09-24-2024 10:02-0400 Heart rate 74 /min Francia Luna MD Work Phone: [facility] 09-24-2024 10:02-0400 Respiratory rate 16 /min Francia Luna MD Work Phone: [facility] 09-24-2024 10:02-0400 SaO2% (BldA) [Mass fraction] 96 % Francia Luna MD Work Phone: [facility] 09-24-2024 10:02-0400 Systolic blood pressure 118 mm[Hg] Francia Luna MD Work Phone: [facility] 08-01-2024 14:16-0500 Body mass index (BMI) [Ratio] 28.37 kg/m2 Karlacat Tiwarihof GUN FITTER.BORDER MEASURER Work Phone: [facility] 08-01-2024 14:16-0500 Body weight 89.7 kg Karlacat Tiwarihof GUN FITTER.BORDER MEASURER Work Phone: [facility] 08-01-2024 14:16-0500 Diastolic blood pressure 62 mm[Hg] Karla Tannhof GUN FITTER.BORDER MEASURER Work Phone: [facility] 08-01-2024 14:16-0500 Heart rate 71 /min Karla Tannhof GUN FITTER.BORDER MEASURER Work Phone: [facility] 08-01-2024 14:16-0500 Respiratory rate 16 /min Karla Tannhof GUN FITTER.BORDER MEASURER Work Phone: [facility] 08-01-2024 14:16-0500 SaO2% (BldA) [Mass fraction] 97 % Karlacat Tiwarihof GUN FITTER.BORDER MEASURER Work Phone: [facility] 08-01-2024 14:16-0500 Systolic blood pressure 104 mm[Hg] Karla Tannhof GUN FITTER.BORDER MEASURER Work Phone: [facility] 01-16-2024 12:59-0400 Body mass index (BMI) [Ratio] 29.13 kg/m2 Karla Tannhof GUN FITTER.BORDER MEASURER Work Phone: [facility] 01-16-2024 12:59-0400 Body weight 92.08 kg Karla Tannhof GUN FITTER.BORDER MEASURER Work Phone: [facility] 01-16-2024 12:59-0400 Diastolic blood pressure 70 mm[Hg] Karla Tannhof GUN FITTER.BORDER MEASURER Work Phone: [facility] 01-16-2024 12:59-0400 Heart rate 86 /min Karla Tannhof GUN FITTER.BORDER MEASURER Work Phone: [facility] 01-16-2024 12:59-0400 Respiratory rate 16 /min Karlacat Tiwarihof GUN FITTER.BORDER MEASURER Work Phone: [facility] 01-16-2024 12:59-0400 SaO2% (BldA) [Mass fraction] 95 % Karla Tannhof GUN FITTER.BORDER MEASURER Work Phone: [facility] 01-16-2024 12:59-0400 Systolic blood pressure 110 mm[Hg] Karla Tannhof GUN FITTER.BORDER MEASURER Work Phone: [facility] 01-03-2024 10:46-0400 Body mass index (BMI) [Ratio] 28.84 kg/m2 Francia Luna MD Work Phone: [facility] 01-03-2024 10:46-0400 Body weight 91.17 kg Francia Luna MD Work Phone: [facility] 01-03-2024 10:46-0400 Diastolic blood pressure 68 mm[Hg] Francia Luna MD Work Phone: [facility] 01-03-2024 10:46-0400 Heart rate 75 /min Francia Luna MD Work Phone: [facility] 01-03-2024 10:46-0400 Respiratory rate 14 /min Francia Luna MD Work Phone: [facility] 01-03-2024 10:46-0400 SaO2% (BldA) [Mass fraction] 96 % Francia Luna MD Work Phone: [facility] 01-03-2024 10:46-0400 Systolic blood pressure 120 mm[Hg] Francia Luna MD Work Phone: [facility] 10-07-2023 09:59-0400 Body weight 91.17 kg Karla Tannhof GUN FITTER.BORDER MEASURER Work Phone: [facility] 10-07-2023 09:59-0400 Diastolic blood pressure 72 mm[Hg] Karla Tannhof GUN FITTER.BORDER MEASURER Work Phone: [facility] 10-07-2023 09:59-0400 Heart rate 64 /min Karla Tannhof GUN FITTER.BORDER MEASURER Work Phone: [facility] 10-07-2023 09:59-0400 Respiratory rate 16 /min Karla Tannhof GUN FITTER.BORDER MEASURER Work Phone: [facility] 10-07-2023 09:59-0400 SaO2% (BldA) [Mass fraction] 95 % Karla Tannhof GUN FITTER.BORDER MEASURER Work Phone: [facility] 10-07-2023 09:59-0400 Systolic blood pressure 126 mm[Hg] Karla Tannhof GUN FITTER.BORDER MEASURER Work Phone: [facility] 07-04-2023 11:03-0500 Body weight 90.27 kg Samaria Lazcano PA-C Work Phone: [facility] 03-14-2023 12:55-0400 Body weight 91.17 kg Karla Tannhof GUN FITTER.BORDER MEASURER Work Phone: [facility] 03-14-2023 12:55-0400 Diastolic blood pressure 78 mm[Hg] Karla Tannhof GUN FITTER.BORDER MEASURER Work Phone: [facility] 03-14-2023 12:55-0400 Heart rate 51 /min Karla Tannhof GUN FITTER.BORDER MEASURER Work Phone: [facility] 03-14-2023 12:55-0400 Respiratory rate 16 /min Karla Tannhof GUN FITTER.BORDER MEASURER Work Phone: [facility] 03-14-2023 12:55-0400 SaO2% (BldA) [Mass fraction] 94 % Karla Tannhof GUN FITTER.BORDER MEASURER Work Phone: [facility] 03-14-2023 12:55-0400 Systolic blood pressure 102 mm[Hg] Karla Tannhof GUN FITTER.BORDER MEASURER Work Phone: [facility] 03-08-2023 10:40-0400 Diastolic blood pressure 80 mm[Hg] Ibeth Reggie GUN FITTER.BORDER MEASURER Work Phone: [facility] 03-08-2023 10:40-0400 Heart rate 78 /min Ibeth Reggie GUN FITTER.BORDER MEASURER Work Phone: [facility] 03-08-2023 10:40-0400 SaO2% (BldA) [Mass fraction] 97 % Ibeth Reggie GUN FITTER.BORDER MEASURER Work Phone: [facility] 03-08-2023 10:40-0400 Systolic blood pressure 132 mm[Hg] Ibeth Reggie GUN FITTER.BORDER MEASURER Work Phone: [facility] 01-24-2023 11:12-0400 Body height 167.6 cm Pacc 1 Work Phone: [facility] 01-24-2023 11:12-0400 Body temperature 98.49 [degF] Pacc 1 Work Phone: [facility] 01-24-2023 11:12-0400 Body weight 95.71 kg Pacc 1 Work Phone: [facility] 01-24-2023 11:12-0400 Diastolic blood pressure 64 mm[Hg] Pacc 1 Work Phone: [facility] 01-24-2023 11:12-0400 Heart rate 72 /min Pacc 1 Work Phone: [facility] 01-24-2023 11:12-0400 Respiratory rate 18 /min Pacc 1 Work Phone: [facility] 01-24-2023 11:12-0400 SaO2% (BldA) [Mass fraction] 92 % Pacc 1 Work Phone: [facility] 01-24-2023 11:12-0400 Systolic blood pressure 134 mm[Hg] Pacc 1 Work Phone: [facility] 01-06-2023 12:57-0400 Body weight 91.17 kg Samaria Jaleesa PA-C Work Phone: [facility] 01-06-2023 12:57-0400 Diastolic blood pressure 64 mm[Hg] Samaria Jaleesa PA-C Work Phone: [facility] 01-06-2023 12:57-0400 Heart rate 95 /min Samaria Jaleesa PA-C Work Phone: [facility] 01-06-2023 12:57-0400 Respiratory rate 14 /min Samaria Jaleesa PA-C Work Phone: [facility] 01-06-2023 12:57-0400 SaO2% (BldA) [Mass fraction] 96 % Samaria Jaleesa PA-C Work Phone: [facility] 01-06-2023 12:57-0400 Systolic blood pressure 98 mm[Hg] Samaria Jaleesa PA-C Work Phone: [facility] 11-11-2022 11:51-0400 Body height 167.6 cm Chalino Valdez DO Work Phone: [facility] 11-11-2022 11:51-0400 Body weight 96.16 kg Chalino Valdez DO Work Phone: [facility] 10-27-2022 14:28-0400 Body weight 97.07 kg Eladio Pablo MD Work Phone: [facility] 10-27-2022 14:28-0400 Diastolic blood pressure 65 mm[Hg] Eladio Pablo MD Work Phone: [facility] 10-27-2022 14:28-0400 Heart rate 83 /min Eladio Pablo MD Work Phone: [facility] 10-27-2022 14:28-0400 SaO2% (BldA) [Mass fraction] 95 % Eladio Pablo MD Work Phone: [facility] 10-27-2022 14:28-0400 Systolic blood pressure 116 mm[Hg] Eladio Pablo MD Work Phone: [facility] 09-06-2022 18:29-0500 Body weight 96.3 kg Clarice Murillo MD Work Phone: [facility] 09-06-2022 18:29-0500 Diastolic blood pressure 78 mm[Hg] Clarice Murillo MD Work Phone: [facility] 09-06-2022 18:29-0500 Heart rate 74 /min Clarice Murillo MD Work Phone: [facility] 09-06-2022 18:29-0500 Respiratory rate 16 /min Clarice Murillo MD Work Phone: [facility] 09-06-2022 18:29-0500 Systolic blood pressure 130 mm[Hg] Clarice Murillo MD Work Phone: [facility] 07-06-2022 13:25-0500 Body height 167.6 cm Francia Luna MD Work Phone: [facility] 07-06-2022 13:25-0500 Body weight 92.99 kg Francia Luna MD Work Phone: [facility] 07-06-2022 13:25-0500 Heart rate 69 /min Francia Luna MD Work Phone: [facility] 07-06-2022 13:25-0500 Respiratory rate 14 /min Francia Luna MD Work Phone: [facility] 07-06-2022 13:25-0500 SaO2% (BldA) [Mass fraction] 96 % Francia Luna MD Work Phone: [facility] 2022 09:49-0500 Body temperature 98.2 [degF] Keith Guillen GUN FITTER.BORDER MEASURER Work Phone: [facility] 2022 09:49-0500 Body weight 92.53 kg Keith Guillen GUN FITTER.BORDER MEASURER Work Phone: [facility] 2022 09:49-0500 Diastolic blood pressure 60 mm[Hg] Keith Guillen GUN FITTER.BORDER MEASURER Work Phone: [facility] 2022 09:49-0500 Heart rate 82 /min Keith Guillen GUN FITTER.BORDER MEASURER Work Phone: [facility] 2022 09:49-0500 Respiratory rate 16 /min Keith Guillen GUN FITTER.BORDER MEASURER Work Phone: [facility] 2022 09:49-0500 SaO2% (BldA) [Mass fraction] 97 % Keith Guillen GUN FITTER.BORDER MEASURER Work Phone: [facility] 2022 09:49-0500 Systolic blood pressure 110 mm[Hg] Keith Guillen GUN FITTER.BORDER MEASURER Work Phone: [facility] 06-04-2022 10:38-0500 Body weight 91.9 kg Clarice Murillo MD Work Phone: [facility] 06-04-2022 10:38-0500 Diastolic blood pressure 78 mm[Hg] Clarice Murillo MD Work Phone: [facility] 06-04-2022 10:38-0500 Heart rate 86 /min Clarice Murillo MD Work Phone: [facility] 06-04-2022 10:38-0500 Respiratory rate 20 /min Clarice Murillo MD Work Phone: [facility] 06-04-2022 10:38-0500 Systolic blood pressure 122 mm[Hg] Clarice Murillo MD Work Phone: [facility] 11-30-2021 15:45-0400 Body weight 91.63 kg Clarice Murillo MD Work Phone: [facility] 11-30-2021 15:45-0400 Diastolic blood pressure 60 mm[Hg] Clarice Murillo MD Work Phone: [facility] 11-30-2021 15:45-0400 Heart rate 62 /min Clarice Murillo MD Work Phone: [facility] 11-30-2021 15:45-0400 Respiratory rate 14 /min Clarice Murillo MD Work Phone: [facility] 11-30-2021 15:45-0400 Systolic blood pressure 100 mm[Hg] Clarice Murillo MD Work Phone: [facility] Encounters Encounter Date Encounter Type Care Provider Facility Start: 04-26-2025 End: 04-26-2025 ambulatory [facility] Facility:[facility] Start: 04-25-2025 End: 04-25-2025 ambulatory [facility] Facility:[facility] Start: 04-22-2025 End: 04-22-2025 ambulatory [facility] Facility:[facility] Start: 04-10-2025 End: 04-10-2025 ambulatory [facility] Facility:[facility] Start: 04-10-2025 End: 04-10-2025 ambulatory [facility] Facility:[facility] Start: 04-08-2025 End: 04-08-2025 ambulatory [facility] Facility:[facility] Start: 04-02-2025 End: 04-02-2025 Patient encounter procedure Francia Luna MD Work Phone: Pulmonary Medicine Comment on above: 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); Right lower lobe lung mass; Former cigarette smoker Start: 04-02-2025 End: 04-02-2025 ambulatory [facility] Facility:[facility] Start: 03-28-2025 End: 03-28-2025 Follow-up encounter Neisha Cope APRN.BORDER MEASURER Work Phone: [facility] Comment on above: Results Start: 03-27-2025 End: 03-27-2025 ambulatory [facility] Facility:[facility] Start: 03-27-2025 End: 03-27-2025 Office outpatient visit 25 minutes Neisha Cope APRN.BORDER MEASURER Work Phone: [facility] Comment on above: Leg swelling (Primar y Dx); Rectal bleeding Start: 03-27-2025 End: 03-27-2025 ambulatory [facility] Facility:[facility] Start: 03-12-2025 Non-patient / Non-visit Jf Kay nd, DO [facility] Start: 03-12-2025 Non-patient / Non-visit Dr. Serena Prasad MD -[facility] Work Phone: Start: 03-12-2025 ambulatory [facility] Facility:[facility] Start: 03-11-2025 Non-patient / Non-visit Dr. Serena Prasad MD -[facility] Work Phone: Start: 03-10-2025 ambulatory Miller Vides Fac ility:[facility] Start: 03-10-2025 End: 03-12-2025 Evaluation and management of inpatient Dr. Miller Vides DO -Progressive Care Unit Work Phone: Start: 02-22-2025 End: 02-22-2025 Subsequent hospital visit by physician Marisol [facility] Work Phone: Radiology Comment on above: Primary osteoarthrit is of right knee [M17.11] Start: 02-22-2025 End: 02-22-2025 ambulatory [facility] Facility:[facility] Start: 02-08-2025 End: 02-08-2025 Follow-up encounter Sid Frank APRN.BORDER MEASURER Work Phone: [facility] Comment on above: Results Start: 02-05-2025 ambulatory [facility] Facil ity:[facility] Start: 02-05-2025 End: 02-05-2025 Subsequent hospital visit by physician Xr [facility] Work Phone: Radiology Comment on above: Chronic pain of both shoulders [M25.511, G89.29, M25.512] Start: 02-05-2025 End: 02-05-2025 Office outpatient visit 25 minutes Clarice Murillo MD Work Phone: [facility] Comment on above: Essential hypertensi on, benign (Primary Dx); Abdominal aortic aneurysm (AAA) without rupture, unspecified part; Hyperlipidemia, unspecified hyperlipidemia type; Chronic pain of both shoulders; Neuropathy; Primary osteoarthritis of both shoulders; Pulmonary emphysema, unspecified emphysema type (HCC); Pedal edema Start: 02-05-2025 End: 02-05-2025 ambulatory [facility] Facility:[facility] Start: 01-31-2025 End: 04-02-2025 Follow-up encounter Sid Frank APRN.CNP Work Phone: [facility] Start: 01-30-2025 End: 01-30-2025 ambulatory [facility] Facility:[facility] Start: 11-19-2024 End: 11-19-2024 Refill Clarice Murillo MD Work Phone: [address] [place] [address] Comment on above: Refill Request Start: 11-13-2024 End: 11-13-[address] Dennis Rocha MD -[facility] Work Phone: Start: 11-13-2024 End: 11-13-2024 ambulatory Dennis Rocha Facility:[facility] Start: 11-10-2024 Non-patient / Non-visit Dr. Riky Li MD -[facility] Work Phone: Start: 11-09-2024 Non-patient / Non-visit Dr. Dennis hameed MD -[facility] Start: 11-08-2024 ambulatory Riky Li Facility: [facility] Start: 11-08-2024 End: 11-10-2024 Evaluation and management of inpatient Dr. Riky Li MD -Medical [facility] 3 Work Phone: Start: 11-08-2024 ambulatory Riky Li Facility: [facility] Start: 11-08-2024 Non-patient / Non-visit Dr. Dennis hameed MD -[facility] Start: 11-08-2024 End: 11-08-2024 ambulatory VASYL WELSH Facility:[facility] Start: 11-03-2024 End: 11-03-2024 Patient encounter procedure Jyothi Mosley APRN.BORDER MEASURER Work Phone: [facility] Comment on above: URI with cough and c ongestion (Primary Dx); COPD with acute exacerbation (HCC); Asthma with COPD with exacerbation (HCC) Start: 11-03-2024 End: 11-03-2024 ambulatory JYOTHI MOSLEY Facility:[facility] Start: 11-01-2024 End: 11-01-2024 Refill Francia Luna MD Work Phone: Pulmonary Medicine Comment on above: Refill Request Start: 09-24-2024 End: 09-24-2024 ambulatory CLARICE MURILLO Facility:[facility] Start: 09-24-2024 End: 09-24-2024 Patient encounter procedure Francia Luna MD Work Phone: Pulmonary Medicine Comment on above: COPD, mild (HCC) (Pr imary Dx); Lobular atelectasis; Former cigarette smoker Start: 09-07-2024 End: 09-07-2024 Refill Clarice Murillo MD Work Phone: [facility] Comment on above: Refill Request Start: 08-27-2024 End: 08-27-2024 ambulatory CLARICE MURILLO Facility:[facility] Start: 08-15-2024 End: 08-15-2024 Orders Only Fabio Noriega MD Work Phone: Orthopaedics Comment on above: Bilateral shoulder p ain, unspecified chronicity (Primary Dx) Start: 08-01-2024 End: 08-01-2024 Office outpatient visit 25 minutes Karla Campuzano APRN.BORDER MEASURER Work Phone: [facility] Comment on above: Essential hypertensi on, benign (Primary Dx); Abdominal aortic aneurysm (AAA) without rupture, unspecified part (HCC); Hyperlipidemia, unspecified hyperlipidemia type; GERD without esophagitis; COPD with exacerbation (HCC); Neuropathy; Chronic pain of both shoulders; Mild intermittent asthma without complication; Elevated glucose; Dizziness; Screening for depression; Encounter for screening examination for other mental health and behavioral disorders Start: 08-01-2024 End: 08-01-2024 ambulatory [facility] Facility:[facility] Start: 07-24-2024 End: 07-24-2024 [facility] Facility:[facility] Start: 06-21-2024 End: 06-21-2024 ambulatory Adriel Vides RN Work Phone: [facility] Comment on above: community monitoring outreach (CDM-Telephonic outreach) Start: 05-24-2024 End: 05-24-2024 ambulatory Adriel Vides RN Work Phone: [facility] Comment on above: community monitoring outreach (CDM-Telephonic outreach/) Start: 05-04-2024 End: 05-04-2024 Refill Clarice Murillo MD Work Phone: [facility] Comment on above: Refill Request Start: 04-26-2024 End: 04-26-2024 ambulatory Adriel Vides RN Work Phone: [facility] Comment on above: community monitoring outreach (CDM-Telephonic outreach) Start: 04-25-2024 End: 04-25-2024 ambulatory Adriel Vides RN Work Phone: [facility] Comment on above: community monitoring outreach (CDM-Telephonic outreach) Start: 03-26-2024 End: 03-26-2024 ambulatory Adriel Vides RN Work Phone: [facility] Comment on above: community monitoring outreach (CDM-Telephonic outreach) Start: 03-21-2024 End: 03-21-2024 Patient encounter procedure Karla Campuzano APRN.CNP Work Phone: [facility] Comment on above: Essential hypertensi on, benign (Primary Dx); Hyperlipidemia, unspecified hyperlipidemia type; Abdominal aortic aneurysm (AAA) without rupture, unspecified part (HCC); GERD without esophagitis; COPD with exacerbation (HCC); Neuropathy; Chronic pain of both shoulders; Encounter for immunization Start: 03-14-2024 End: 03-14-2024 Telephone encounter Karla Campuzano APRN.BORDER MEASURER Work Phone: [facility] Comment on above: Results Start: 02-24-2024 ambulatory Adriel Vides RN Work Phone: [facility] Comment on above: community monitoring outreach (CDM-Telephonic outreach) Start: 02-17-2024 Telephone encounter Clarice ellison MD Work Phone: [facility] Comment on above: Patient Update Start: 01-26-2024 ambulatory Adriel Vides RN Work Phone: [facility] Comment on above: community monitoring outreach (CDM-Telephonic outreach) Start: 01-25-2024 Telephone encounter Karla syed APRN.BORDER MEASURER Work Phone: [facility] Comment on above: Patient Update Start: 01-16-2024 End: 01-16-2024 Patient encounter procedure Karla Campuzano APRN.BORDER MEASURER Work Phone: [facility] Comment on above: Essential hypertensi on, benign [...] Clarice araujo MD Work Phone: [facility] Comment on above: Refill Request Start: 12-26-2023 ambulatory Adriel Vides RN Work Phone: [facility] Comment on above: community monitoring outreach (CDM-Telephonic outreach) Start: 12-02-2023 Refill Samaria ValerioC Work Phone: Pulmonary Medicine Comment on above: Refill Request Start: 11-23-2023 ambulatory Adriel Vides RN Work Phone: [facility] Comment on above: community monitoring outreach (CDM-Telephonic outreach) Start: 11-21-2023 Refill Clarice araujo MD Work Phone: [address] [place] [address] Comment on above: Refill Request Start: 10-24-2023 ambulatory Adriel Vides RN Work Phone: [facility] Comment on above: community monitoring outreach (CDM-Telephonic outreach) Start: 10-07-2023 End: 10-07-2023 Patient encounter procedure Karla Campuzano APRN.BORDER MEASURER Work Phone: [facility] Comment on above: Bronchitis (Primary Dx); GERD without esophagitis; Essential hypertension, benign; Abdominal aortic aneurysm (AAA) without rupture, unspecified part (HCC); Hyperlipidemia, unspecified hyperlipidemia type; Neuropathy; Chronic obstructive pulmonary disease, unspecified COPD type (HCC); Acute pain of both shoulders Start: 10-03-2023 Refill Clarice araujo MD Work Phone: [facility] Comment on above: Refill Request Start: 09-14-2023 ambulatory Adriel Vides RN Work Phone: [employer] Comment on above: community monitoring outreach (CDM-Telephonic outreach/) Start: 07-04-2023 End: 07-04-2023 Office outpatient visit 10 minutes Samaria Lazcano PA-C Work Phone: Pulmonary Medicine Comment on above: Asthma-COPD overlap syndrome (Primary Dx); Lung nodules; Former cigarette smoker Start: 06-01-2023 ambulatory Adriel Vides RN Work Phone: [employer] Comment on above: community monitoring outreach (CDM-Telephonic outreach) Start: 05-13-2023 Refill Clarice araujo MD Work Phone: Family Medicine [place] Comment on above: Refill Request Start: 05-02-2023 ambulatory Adriel Vides RN Work Phone: [employer] Comment on above: community monitoring outreach (CDM-Telephonic outreach) Start: 03-29-2023 ambulatory Adriel Vides RN Work Phone: [employer] Comment on above: community monitoring outreach (CDM-Telephonic outreach) Start: 03-14-2023 End: 03-14-2023 Patient encounter procedure Karla Campuzano GUN FITTER.BORDER MEASURER Work Phone: Family [facility] [place] Comment on above: COPD with exacerbati on (HCC) (Primary Dx); Essential hypertension, benign; Hyperlipidemia, unspecified hyperlipidemia type; Abdominal aortic aneurysm (AAA) without rupture, unspecified part (HCC); GERD without esophagitis; Acute pain of both shoulders; Neuropathy Start: 03-08-2023 End: 03-08-2023 Office outpatient visit 25 minutes Ibeth Paredes APRN.BORDER MEASURER Work Phone: Vascular Surgery Comment on above: Abdominal aortic ane urysm (AAA) without rupture, unspecified part (HCC) (Primary Dx); Peripheral arterial disease (HCC); Primary hypertension; Elevated HDL Start: 03-04-2023 End: 03-04-2023 Subsequent hospital visit by physician [facility] (I-Stat) Work Phone: Cat Scan Comment on above: 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) [I71.43] Start: 03-01-2023 Telephone encounter Samaria Lazcano PA-C Work Phone: Pulmonary Medicine Comment on above: Patient Update Start: 03-01-2023 End: 03-01-2023 Patient encounter procedure Ramses Jacinto GUN FITTER.BORDER MEASURER Work Phone: [facility] Comment on above: Procedure not susan d out (Primary Dx) Start: 02-23-2023 ambulatory Adriel Vides RN Work Phone: [employer] Comment on above: community monitoring outreach (CDM-Telephonic outreach/) Start: 01-31-2023 End: 02-01-2023 Evaluation and management of inpatient CLARICE MURILLO Facility:[facility] Start: 01-25-2023 ambulatory Adriel Vides RN Work Phone: [employer] Comment on above: community monitoring outreach (CDM-Telephonic outreach) Start: 01-24-2023 End: 01-24-2023 Admission to establishment [facility] [place] 1 Work Phone: CC [place] Start: 01-24-2023 End: 01-24-2023 ambulatory [facility] Work Phone: Pre Anesthesia Comment on [...] 01-24-2023 End: 01-24-2023 Preprocedural examination done [facility] Work Phone: [facility] Work Phone: Start: 01-06-2023 End: 01-06-2023 Patient encounter procedure Samaria Lazcano PA-C Work Phone: Pulmonary Medicine Comment on above: Asthma with COPD wit h exacerbation (HCC) (Primary Dx); Lung nodules; Former cigarette smoker Start: 12-22-2022 ambulatory Adriel Vides RN Work Phone: [employer] Comment on above: community monitoring outreach (CDM-Telephonic outreach/) Start: 11-29-2022 ambulatory UNKNOWN PROVIDER Facili ty:[facility] Start: 11-29-2022 ambulatory UNKNOWN PROVIDER Facili ty:[facility] Start: 11-29-2022 End: 11-29-2022 Subsequent hospital visit by physician [facility] Work Phone: Cardiology Lab Comment on above: Encounter for screen ing for cardiovascular disorders [Z13.6] Start: 11-29-2022 End: 11-29-2022 Subsequent hospital visit by physician [facility] Work Phone: Molecular Imaging Comment on above: Encounter for screen ing for cardiovascular disorders [Z13.6] Start: 11-26-2022 Telephone encounter Tosha cervantes occupational health and safety adviser Lab Comment on above: Reminder Call Start: 11-25-2022 Refill Clarice araujo MD Work Phone: [address] [place] [address] Comment on above: Refill Request Start: 11-19-2022 ambulatory Adriel Vides RN Work Phone: [employer] Comment on above: community monitoring outreach (CDM-Telephonic outreach) Start: 11-11-2022 End: 11-11-2022 Patient encounter procedure Osmaniprashant FreyJosé Miguelseth WILKERSON Work Phone: Urology Comment on above: Benign [...] Telephone encounter Clarice ellison MD Work Phone: [facility] Comment on above: question on CT incid ental finding Start: 10-21-2022 ambulatory Adriel Vides RN Work Phone: [employer] Comment on above: community monitoring outreach (CDM-Telephonic outreach) Start: 10-13-2022 End: 10-13-2022 Subsequent hospital visit by physician [facility] (I-Stat) Work Phone: Cat Scan Comment on above: 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) [I71.43] Start: 10-11-2022 End: 10-11-2022 Patient encounter procedure Fabio Noriega MD Work Phone: Orthopaedics Comment on above: Chronic pain of both shoulders (Primary Dx); Acute pain of both shoulders; Primary osteoarthritis of both shoulders Start: 10-11-2022 End: 10-11-2022 Subsequent hospital visit by physician Xr [facility] [place] Work Phone: Radiology Comment on above: Bilateral shoulder p ain, unspecified chronicity [M25.511, M25.512] Start: 10-06-2022 Orders Only Fabio Noriega MD Work Phone: Orthopaedics Comment on above: Bilateral shoulder p ain, unspecified chronicity (Primary Dx) Start: 09-29-2022 Telephone encounter Clarice ellison MD Work Phone: [facility] [place] Comment on above: Referral Request Start: 09-06-2022 End: 09-06-2022 Patient encounter procedure Clarice Murillo MD Work Phone: [facility] Comment on above: Acute pain of both s houlders (Primary Dx); Right renal mass; Abdominal aortic aneurysm (AAA) without rupture, unspecified part (HCC) Start: 09-02-2022 Refill Clarice araujo MD Work Phone: Family [facility] Comment on above: Refill Request Start: 08-19-2022 ambulatory Adriel Vides RN Work Phone: [employer] Comment on above: community monitoring outreach (CDM-Telephonic outreach) Start: 08-12-2022 Refill Clarice araujo MD Work Phone: [facility] [place] Comment on above: Refill Request Start: 07-16-2022 ambulatory Adriel Vides RN Work Phone: [employer] Comment on above: community monitoring outreach (CDM-Telephonic outreach) Start: 07-14-2022 Telephone encounter Francia Luna MD Work Phone: Pulmonary Medicine Comment on above: Results (Chest CT) Start: 07-08-2022 End: 07-08-2022 Subsequent hospital visit by physician [facility] (I-Stat) Work Phone: Cat Scan Comment on above: Lung nodules [R91.8] Start: 07-06-2022 End: 07-06-2022 Patient encounter procedure Francia Luna MD Work Phone: Pulmonary Medicine Comment on above: 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); Lung nodules; Former cigarette smoker Start: 2022 Telephone encounter Keith marie APRN.BORDER MEASURER Work Phone: [facility] [place] Comment on above: clarify doxycycline rx Start: 2022 End: 2022 Patient encounter procedure Keith Guillen APRN.BORDER MEASURER Work Phone: [facility] [place] Comment on above: Acute exacerbation o f chronic obstructive pulmonary disease (COPD) (HCC) (Primary Dx) Start: 06-11-2022 ambulatory Adriel Vides RN Work Phone: [employer] Comment on above: community monitoring outreach (CDM telephonic outreach/) Start: 06-09-2022 Telephone encounter Jyothi Mosley APRN.BORDER MEASURER Work Phone: [facility] Comment on above: Results Start: 06-08-2022 End: 06-08-2022 Subsequent hospital visit by physician Marisol [facility] [place] Work Phone: Radiology Comment on above: Acute cough [R05.1] Start: 06-04-2022 End: 06-04-2022 Patient encounter procedure Clarice Murillo MD Work Phone: [facility] [place] Comment on above: Essential hypertensi on, benign (Primary Dx); Hyperlipidemia, unspecified hyperlipidemia type; Chronic obstructive pulmonary disease, unspecified COPD type (HCC); Osteoarthritis of lumbar spine, unspecified spinal osteoarthritis complication status; Vitamin D deficiency; Benign prostatic hyperplasia, unspecified whether lower urinary tract symptoms present; Need for influenza vaccination; Acute pain of left shoulder; Left hip pain Start: 04-30-2022 Refill Clarice araujo MD Work Phone: [facility] [place] Comment on above: Refill Request Start: 04-12-2022 ambulatory Marianne alexis RN Work Phone: [employer] Comment on above: Community Monitoring Outreach (CDM Telephonic.) Start: 03-15-2022 ambulatory Marianne Hinojosa David alexis RN Work Phone: [facility] Start: 03-15-2022 Follow-up encounter Marianne Balderas RN Work Phone: [employer] Comment on above: Community Monitoring Outreach (CDM Telephonic Follow Up) Start: 02-16-2022 ambulatory Marianne Micaela David alexis RN Work Phone: [facility] Start: 02-16-2022 Follow-up encounter Marianne Balderas RN Work Phone: [employer] Comment on above: Community Monitoring Outreach (Telephonic Follow Up) Start: 02-15-2022 ambulatory Marianne E David alexis RN Work Phone: [facility] Start: 02-15-2022 Follow-up encounter Marianen Balderas RN Work Phone: [employer] Comment on above: Community Monitoring Outreach (Telephonic Follow Up) Start: 02-04-2022 Refill Clarice araujo MD Work Phone: [facility] Comment on above: Refill Request Start: 01-19-2022 ambulatory Marianne Hinojosa David alexis RN Work Phone: [facility] Start: 01-19-2022 Follow-up encounter Marianne Balderas RN Work Phone: [employer] [facility] Comment on above: Community Monitoring Outreach (Telephonic Follow Up) Start: 12-03-2021 Telephone encounter Clarice ellison MD Work Phone: [facility] Comment on above: Results Start: 11-30-2021 End: 11-30-2021 Patient encounter procedure Clarice Murillo MD Work Phone: Family [facility] [place] Comment on above: Hyperlipidemia, unsp ecified hyperlipidemia type (Primary Dx); BENIGN HYPERTENSION; Abdominal aortic aneurysm without rupture (HCC); Chronic obstructive pulmonary disease, unspecified COPD type (HCC); Vitamin D deficiency; Osteoarthritis of lumbar spine, unspecified spinal osteoarthritis complication status; Benign prostatic hyperplasia, unspecified whether lower urinary tract symptoms present; Vertebrobasilar artery syndrome Start: 11-02-2021 ambulatory Marianne alexis RN [facility] Start: 11-02-2021 Follow-up encounter Marianne Balderas RN [employer] Comment on above: Community Monitoring Outreach (Telephonic Follow Up) Start: 10-05-2021 ambulatory Marianne alexis RN [facility] Start: 10-05-2021 Follow-up encounter Marianne Balderas RN [employer] Comment on above: Community Monitoring Outreach (Telephonic Follow Up) Start: 02-12-2018 End: 02-12-2018 Emergency department patient visit [facility] Procedures Date Procedure Procedure Detail Performing Clinician Start: 03-12-[address] Clarice townsend MD Work Phone: Start: 03-12-[address] Clarice Murillo MD Work Phone: Start: 03-10-2025 Urnls dip stick/tabl et reagent auto microscopy Dr. Clarice Murillo MD Work Phone: Start: 03-10-2025 Computed tomography of abdomen and pelvis with intravenous contrast Dr. lCarice Murillo MD Work Phone: Start: 03-10-[address] Clarice Murillo MD Work Phone: Start: 03-10-2025 Measurement of occul t blood in stool specimen using immunoassay Dr. Clarice Murillo MD Work Phone: Start: 11-10-[address] Clarice Murillo MD Work Phone: Start: 11-10-2024 Serum inorganic phos phate measurement Dr. Clarice Murillo MD Work Phone: Start: 11-08-2024 Plain x-ray of hand Dr. Clarice Murillo MD Work Phone: Start: 11-08-2024 Plain x-ray of wrist Dr Collin Murillo MD Work Phone: Start: 11-08-[address] Clarice Murillo MD Work Phone: Start: 11-08-2024 Gram stain microscopy D rCollin Murillo MD Work Phone: Start: 11-08-2024 End: 11-08-2024 Microbial culture, body fluid Dr. Clarice Murillo MD Work Phone: Start: 11-03-2024 COVID-19 MOLECULAR (POC) Jyothi Mosley GUN FITTER.BORDER MEASURER Work Phone: Start: 08-01-2024 Adult depression scr eening assessment Karla Campuzano GUN FITTER.BORDER MEASURER Work Phone: Start: 03-04-2023 Ct angio abd&plvis [...] exam ches t 2 views Ramses Jacinto GUN FITTER.BORDER MEASURER Work Phone: Start: 06-04-2022 INFLUENZA SEASONAL QUADRIVALENT HIGH DOSE AGE 65+ Clarice Murillo MD Work Phone: Plan of Treatment Date Care Activity Detail Author Start: 01-31-2028 Diabetes Screening Diabetes Screening [facility] Start: 07-24-2027 Diabetes Screening Diabetes Screening [facility] Start: 03-07-2027 Diabetes Screening Diabetes Screening [facility] Start: 07-29-2026 Diabetes Screening Diabetes Screening [facility] Start: 02-01-2026 DIABETES SCREEN DIABETES SCREEN [facility] Start: 02-01-2026 Diabetes Screening Diabetes Screening [facility] Start: 12-02-2025 DIABETES SCREEN DIABETES SCREEN [facility] Start: 10-07-2025 End: 10-07-2025 Patient encounter procedure 10/07/2025 2:45 PM EDT Office Visit Pulmonary Medicine [address] [place] [address] Francia Luna MD [address] [place] [address] 6 month follow up Pulmonary Medicine Comment on above: 6 month follow up Start: 08-09-2025 End: 08-09-2025 Patient encounter procedure [facility] [place] Comment on above: transfer care/6 month follow up Start: 08-01-2025 Anxiety Screening Anxiety Screening [facility] Start: 08-01-2025 Covid-19 Vaccine ( season) Covid-19 Vaccine () [facility] Comment on above: Postponed from 03/18/2024 (Declined at t his time) Start: 08-01-2025 Depression Screening Depression Screening [facility] Start: 08-01-2025 RSV Vaccine (1 - 1-dose 75+ series) RSV Vaccine (1 - 1-dose 75+ series) [facility] Comment on above: Postponed from 2012 (Declined at t his time) Start: 08-01-2025 Shingrix Vaccine (1 of 2) Shingrix Vaccine (1 of 2) [facility] Comment on above: Postponed from 1987 (Declined at t his time) Start: 05-20-2025 DIABETES SCREEN DIABETES SCREEN [facility] Start: 04-22-2025 End: 04-22-2025 Patient encounter procedure 04/22/2025 1:30 PM EDT Office Visit Orthopaedics [address] [place] [address] Ynes Souza PA-C [address] [place] [address] right knee injection Orthopaedics Comment on above: right knee injection Start: 04-10-2025 End: 04-10-2025 Patient encounter procedure 04/10/2025 11:40 AM EDT Office Visit Family Medicine [place] [address] [place] [address] Neisha Cope APRN.BORDER MEASURER [address] [place] [address] 2 week follow up b/l lower leg edema [facility] Comment on above: 2 week follow up b/l lower leg edema Start: 04-02-2025 End: 04-02-2025 Patient encounter procedure 04/02/2025 2:15 PM EDT Office Visit Pulmonary Medicine [address] [place] [address] Francia Luna MD [address] [address] 6 month f/u Pulmonary Medicine Comment on above: 6 month f/u Start: 03-28-2025 End: 06-27-2025 CBC W Auto Differential panel - Blood COMPLETE BLOOD COUNT AND DIFFERENTIAL Lab Routine Anemia, unspecified type Expected: 03/28/2025, Expires: 06/27/2025 [facility] Work Phone: Comment on above: Expected: 03/28/2025, Expires: Start: 03-18-2025 Influenza vaccination Influ[facility] Start: 03-12-2025 Patient discharge [facility] Start: 03-11-2025 [facility] Start: 03-11-2025 Inhalation therapy procedure [facility] Start: 03-10-2025 End: 03-11-2025 [facility] Start: 03-10-2025 Application of intermittent pneumatic compression device [facility] Start: 03-10-2025 Following clinical pathway protocol [facility] Start: 03-10-2025 Ambulation without limitation [facility] Start: 03-10-2025 Assessment of risk of venous thromboembolism [facility] Start: 03-10-2025 Incentive spirometry [facility] Start: 03-10-2025 Insertion of catheter into peripheral vein [facility] Start: 03-10-2025 Measuring intake and output [facility] Start: 03-10-2025 Oxygen therapy [facility] Start: 03-10-2025 Providing care according to standard [facility] Start: 03-10-2025 Referral to gastroenterology service [facility] Start: 03-10-2025 Hospital admission, emergency, from emergency room, medical nature [facility] Start: 03-10-2025 Verification routine [facility] Start: 03-10-2025 Admission procedure [facility] Start: 03-10-2025 Measurement of occult blood in stool specimen using immunoassay [facility] Start: 02-22-2025 End: 02-22-2025 Patient encounter procedure 02/22/2025 1:00 PM EDT Office Visit Orthopaedics [address] [place] [address] Ynes Souza PA-C [address] [place] [address] Chronic pain of both shoulders [M25.511, G89.29, M25.512] Orthopaedics Comment on above: Chronic pain of both shoulders [M25.511, G89.29, M25.512] Start: 02-05-2025 End: 02-05-2025 Patient encounter procedure 02/05/2025 3:00 PM EDT Office Visit [facility] [address] [place] [address] Clarice Murillo MD [address] [place] [address] 6 month follow up and labs [facility] Comment on above: 6 month follow up and labs Start: 01-29-2025 End: 04-30-2025 Comprehensive metabolic 2000 panel - Serum or Plasma COMPREHENSIVE METABOLIC PANEL Lab Routine Hyperlipidemia, unspecified hyperlipidemia type Expected: 01/29/2025, Expires: 04/30/2025 [facility] Work Phone: Comment on above: Expected: 01/29/2025, Expires: Start: 01-29-2025 End: 04-30-2025 Hemoglobin A1c in Blood HEMOGLOBIN A1C Lab Routine Elevated glucose Expected: 01/29/2025, Expires: 04/30/2025 [facility] Comment on above: Expected: 01/29/2025, Expires: Start: 01-29-2025 End: 04-30-2025 Lipid 1996 panel - Serum or Plasma LIPID PANEL BASIC Lab Routine Hyperlipidemia, unspecified hyperlipidemia type Expected: 01/29/2025, Expires: 04/30/2025 [facility] Comment on above: Expected: 01/29/2025, Expires: Start: 12-01-2024 DIABETES SCREEN DIABETES SCREEN [facility] Start: 11-10-2024 Patient discharge [facility] Start: 11-10-2024 Inhalation therapy procedure [facility] Start: 11-08-2024 Assessment of risk of venous thromboembolism [facility] Start: 11-08-2024 Incentive spirometry [facility] Start: 11-08-2024 Insertion of catheter into peripheral vein [facility] Start: 11-08-2024 Measuring intake and output [facility] Start: 11-08-2024 Providing care according to standard [facility] Start: 11-08-2024 Provision of activity privileges [facility] Start: 11-08-2024 Referral to occupational therapist [facility] Start: 11-08-2024 Referral to service [facility] Start: 11-08-2024 [facility] Start: 11-08-2024 Verification routine [facility] Start: 11-08-2024 Admission procedure [facility] Start: 11-08-2024 Elevation of affected extremity [facility] Start: 11-08-2024 End: 11-08-2024 Microbial culture, body fluid [facility] Start: 11-08-2024 Anaerobic Culture Anaerobic Culture [facility] Start: 09-24-2024 End: 09-24-2024 Patient encounter procedure 09/24/2024 10:00 AM EDT Office Visit Pulmonary Medicine [address] [place] [address] Francia Luna MD [address] [place] [address] Follow up COPD Pulmonary Medicine Comment on above: Follow up COPD Start: 08-27-2024 End: 08-27-2024 Patient encounter procedure 08/27/2024 2:30 PM EST Office Visit Orthopaedics [address] [place] [address] Fabio Noriega MD [address] [place] [address] Shoulder Pain (Cortizone Injection)/Last visit 10/11/22) Orthopaedics Comment on above: Shoulder Pain (Cortizone Injection)/Last visit 10/11/22) Start: 08-01-2024 End: 08-01-2024 Patient encounter procedure 08/01/2024 2:40 PM EST Office Visit Family Medicine [place] [address] [facility] [place] [address] Karla Campuzano APRN.BORDER MEASURER [address] [facility] [place] [address] 4 month follow up with labs [facility] Comment on above: 4 month follow up with labs Start: 07-19-2024 End: 07-19-2024 Patient encounter procedure 07/19/2024 1:15 PM EST Office Visit Pulmonary Medicine [address] [place] [address] Francia Luna MD [address] [place] [address] 6 MTH F/U COPD Pulmonary Medicine Comment on above: 6 MTH F/U COPD Start: 07-18-2024 Advance Directive Discussion Advance Directive Discussion [facility] Start: 07-18-2024 End: 10-17-2024 Comprehensive metabolic 2000 panel - Serum or Plasma COMPREHENSIVE METABOLIC PANEL Lab Routine Hyperlipidemia, unspecified hyperlipidemia type Expected: 07/18/2024, Expires: 10/17/2024 [facility] Work Phone: Comment on above: Expected: 07/18/2024, Expires: Start: 07-18-2024 End: 10-17-2024 Lipid 1996 panel - Serum or Plasma LIPID PANEL BASIC Lab Routine Hyperlipidemia, unspecified hyperlipidemia type Expected: 07/18/2024, Expires: 10/17/2024 [facility] Comment on above: Expected: 07/18/2024, Expires: Start: 07-18-2024 Medicare Advantage Annual Wellness Visit Medicare Advantage Annual Wellness Visit [facility] Start: 05-12-2024 DIABETES SCREEN DIABETES SCREEN [facility] Start: 04-08-2024 End: 07-08-2024 Comprehensive metabolic 2000 panel - Serum or Plasma COMP METABOLIC PANEL Lab Routine Hyperlipidemia, unspecified hyperlipidemia type Expected: 04/08/2024, Expires: 07/08/2024 [facility] Work Phone: Comment on above: Expected: 04/08/2024, Expires: Start: 04-08-2024 End: 07-08-2024 Lipid 1996 panel - Serum or Plasma LIPID PANEL BASIC Lab Routine Hyperlipidemia, unspecified hyperlipidemia type Expected: 04/08/2024, Expires: 07/08/2024 [facility] Work Phone: Comment on above: Expected: 04/08/2024, Expires: Start: 03-21-2024 End: 03-21-2024 Patient encounter procedure 03/21/2024 1:40 PM EDT Office Visit [facility] [address] [place] [address] Karla Campuzano, GUN FITTER.BORDER MEASURER [address] [place] [address] 3 month follow up [facility] [place] Comment on above: 3 month follow up Start: 03-18-2024 Covid-19 Vaccine ( season) Covid-19 Vaccine ( season) [facility] Start: 03-18-2024 Covid-19 Vaccine () Covid-19 Vaccine () [facility] Start: 03-18-2024 Influenza vaccination Influenza Vaccine (#1) [facility] Start: 01-16-2024 End: 01-16-2024 Patient encounter procedure 01/16/2024 1:00 PM EDT Office Visit Family Medicine [facility] [address] [place], [place] [id number] Karla Campuzano APRN.BORDER MEASURER [address] [facility] [place] [address] 3 month follow up Family Medicine [facility] Comment on above: 3 month follow up Start: 01-03-2024 End: 01-03-2024 Patient encounter procedure 01/03/2024 11:00 AM EDT Office Visit Pulmonary Medicine [address] [place] [address] Francia Luna MD [address] [place] [address] six month follow up Pulmonary Medicine Comment on above: six month follow up Start: 09-08-2023 End: 03-08-2024 US ABD AORTA COMPLETE VAS LAB US ABD AORTA COMPLETE VAS LAB Vascular Lab Routine Abdominal aortic aneurysm (AAA) without rupture, unspecified part (HCC) Expected: 09/08/2023, Expires: 03/08/2024 [facility] Work Phone: Comment on above: Expected: 09/08/2023, Expires: Start: 07-18-2023 Advance Directive Discussion Advance Directive Discussion [facility] Start: 07-18-2023 Behavioral Health Screening Behavioral Health Screening [facility] Start: 07-18-2023 Depression Assessment Depression Assessment [facility] Start: 03-18-2023 Covid-19 Vaccine ( season) Covid-19 Vaccine () [facility] Start: 03-18-2023 Influenza vaccination [facility] Start: 01-24-2023 End: 03-26-2023 CONFIRM BLOOD TYPE CONFIRM BLOOD TYPE Blood Bank Routine Pre-operative examination Expected: 01/24/2023, Expires: 03/26/2023 [facility] Work Phone: Comment on above: Expected: 01/24/2023, Expires: Start: 12-02-2022 End: 02-01-2023 CBC W Auto Differential panel - Blood CBC + DIFF Lab Routine Hyperlipidemia, unspecified hyperlipidemia type Expected: 12/02/2022 (Approximate), Expires: 02/01/2023 [facility] Work Phone: Comment on above: Expected: 12/02/2022 (Approximate), Expi res: 02/01/2023 Start: 12-02-2022 End: 02-01-2023 Comprehensive metabolic 2000 panel - Serum or Plasma COMP METABOLIC PANEL Lab Routine Hyperlipidemia, unspecified hyperlipidemia type Expected: 12/02/2022 (Approximate), Expires: 02/01/2023 [facility] Work Phone: Comment on above: Expected: 12/02/2022 (Approximate), Expi res: 02/01/2023 Start: 12-02-2022 End: 02-01-2023 Lipid 1996 panel - Serum or Plasma LIPID PANEL BASIC Lab Routine Hyperlipidemia, unspecified hyperlipidemia type Expected: 12/02/2022 (Approximate), Expires: 02/01/2023 [facility] Work Phone: Comment on above: Expected: 12/02/2022 (Approximate), Expi res: 02/01/2023 Start: 07-18-2022 ADVANCE DIRECTIVE DISCUSSION ADVANCE DIRECTIVE DISCUSSION [facility] Start: 07-18-2022 DEPRESSION ASSESSMENT DEPRESSION ASSESSMENT [facility] Start: 03-18-2022 Influenza vaccination INFLUENZA (#1) [facility] Start: 09-30-2021 COVID-19 VACCINE (4 - Booster for Moderna series) COVID-19 VACCINE (4 - Booster for Moderna series) [facility] Start: 07-28-2021 COVID-19 VACCINE (4 - Booster for Moderna series) COVID-19 VACCINE (4 - Booster for Moderna series) [facility] Start: 07-28-2021 COVID-19 VACCINE (4 - Moderna series) COVID-19 VACCINE (4 - Moderna series) [facility] Start: 07-18-2021 ADVANCE DIRECTIVE DISCUSSION ADVANCE DIRECTIVE DISCUSSION [facility] Start: 07-18-2021 DEPRESSION ASSESSMENT DEPRESSION ASSESSMENT [facility] Start: 01-31-2021 COVID-19 VACCINE (3 - Booster for Moderna series) COVID-19 VACCINE (3 - Booster for Moderna series) [facility] Start: 2012 RSV Vaccine (1 - 1-dose 75+ series) RSV Vaccine (1 - 1-dose 75+ series) [facility] Start: 02-10-2012 Urine microalbumin profile [facility] Start: 1997 RSV Vaccine (1 - 1-dose 60+ series) RSV Vaccine (1 - 1-dose 60+ series) [facility] Start: 1987 SHINGRIX VACCINE (1 of 2) SHINGRIX VACCINE (1 of 2) [facility] Start: 1955 Anxiety Screening Anxiety Screening [facility] Start: 1955 Depression Screening Depression Screening [facility] Anion gap in Serum o r Plasma [facility] Bacteria identified in Unspecified specimen by Anaerobe culture [facility] BUN/Creatinine ratio [facility] Calcium [Mass/volume ] in Serum or Plasma [facility] Carbon dioxide, tota l [Moles/volume] in Central venous blood [facility] Creatinine [Mass/vol ume] in Serum or Plasma [facility] End: 08-05-2023 Ct thorax w/o contrast material CT CHEST WO IVCON Radiology Routine Lung nodules 1 Occurrences starting 07/06/2022 until 08/05/2023 [facility] Work Phone: Comment on above: 1 Occurrences starting 07/06/2022 until 08/05/2023 Erythrocyte mean corpuscular volume determination [facility] Glucose [Mass/volume ] in Serum or Plasma [facility] Hematocrit [Volume Fraction] of Blood [facility] Hemoglobin [Mass/vol ume] in Blood [facility] Leukocytes [#/volume ] in Blood [facility] Mean corpuscular hemoglobin concentration determination [facility] Mean corpuscular hemoglobin determination [facility] Measurement of renal function [facility] Neutrophil count [facility] Neutrophil percent differential count [facility] Patient referral [facility] Work Phone: Platelets [#/volume] in Blood [facility] Potassium measurement [facility] Red blood cell count [facility] Red cell distributio n width determination [facility] Serum chloride measurement [facility] Sodium measurement [facility] Urea nitrogen [Mass/volume] in Serum or Plasma [facility] XR Knee - right 4 Views XR KNEE GENERAL 4V AP BOTH/PA BOTH/LAT/MERC RIGHT Radiology Routine Primary osteoarthritis of right knee 02/22/2025 2:04 PM EDT [facility] Work Phone: End: 09-14-2025 XR Shoulder - left 3 Views XR SHOULDER GENERAL 3V OR MORE AP/TRUE AP/OTHER LEFT Radiology Routine Bilateral shoulder pain, unspecified chronicity 1 Occurrences starting 08/15/2024 until 09/14/2025 [facility] Work Phone: Comment on above: 1 Occurrences starting 08/15/2024 until 09/14/2025 End: 03-07-2026 XR Shoulder - left 3 Views XR SHOULDER GENERAL 3V OR MORE AP/TRUE AP/OTHER LEFT Radiology Routine Chronic pain of both shoulders 1 Occurrences starting 02/05/2025 until 03/07/2026 [facility] Comment on above: 1 Occurrences starting 02/05/2025 until 03/07/2026 XR Shoulder - left 3 Views XR SHOULDER GENERAL 3V OR MORE AP/TRUE AP/OTHER LEFT Radiology Routine Chronic pain of both shoulders 02/05/2025 4:07 PM EDT [facility] End: 09-14-2025 XR Shoulder - right 3 Views XR SHOULDER GENERAL 3V OR MORE AP/TRUE AP/OTHER RIGHT Radiology Routine Bilateral shoulder pain, unspecified chronicity 1 Occurrences starting 08/15/2024 until 09/14/2025 [facility] Comment on above: 1 Occurrences starting 08/15/2024 until 09/14/2025 End: 03-07-2026 XR Shoulder - right 3 Views XR SHOULDER GENERAL 3V OR MORE AP/TRUE AP/OTHER RIGHT Radiology Routine Chronic pain of both shoulders 1 Occurrences starting 02/05/2025 until 03/07/2026 [facility] Work Phone: Comment on above: 1 Occurrences starting 02/05/2025 until 03/07/2026 XR Shoulder - right 3 Views XR SHOULDER GENERAL 3V OR MORE AP/TRUE AP/OTHER RIGHT Radiology Routine Chronic pain of both shoulders 02/05/2025 4:07 PM EDT [facility] End: 11-05-2023 XR SHOULDER GENERAL 3V OR MORE AP/TRUE AP/OTHER LEFT XR SHOULDER GENERAL 3V OR MORE AP/TRUE AP/OTHER LEFT Radiology Routine Bilateral shoulder pain, unspecified chronicity 1 Occurrences starting 10/06/2022 until 11/05/2023 [facility] Work Phone: Comment on above: 1 Occurrences starting 10/06/2022 until 11/05/2023 End: 11-05-2023 XR SHOULDER GENERAL 3V OR MORE AP/TRUE AP/OTHER RIGHT XR SHOULDER GENERAL 3V OR MORE AP/TRUE AP/OTHER RIGHT Radiology Routine Bilateral shoulder pain, unspecified chronicity 1 Occurrences starting 10/06/2022 until 11/05/2023 [facility] Work Phone: Comment on above: 1 Occurrences starting 10/06/2022 until 11/05/2023 [facility] Immunizations Immunization Date Immunization Notes Care Provider Wilberto real 03-21-2024 influenza, high dose seasonal, preservative-free Karla Campuzano APRN.CNP Work Phone: [facility] 03-21-2024 influenza virus vacc ine, unspecified formulation Clarice Murillo MD Work Phone: [facility] 07-08-2023 influenza (HD-IIV4) vaccine, age 65+ yr, high dose, quadrivalent, PF (FLUZONE HIGH-DOSE) Adriel Vides RN Work Phone: [facility] 07-08-2023 influenza virus vacc ine, unspecified formulation Karla Justen FREEDBORDER MEASURER Work Phone: [facility] 06-04-2022 influenza, high-dose , quadrivalent vaccine (FLUZONE HIGH DOSE QUADRIVALENT) Clarice Murillo MD Work Phone: [facility] 06-04-2022 influenza virus vacc ine, unspecified formulation Adriel Vides RN Work Phone: [facility] 06-02-2021 COVID-19 original vaccine, full dose, monovalent (MODERNA) Adriel Vides RN Work Phone: [facility] 05-29-2021 influenza, high-dose , quadrivalent vaccine (FLUZONE HIGH DOSE QUADRIVALENT) Marianne Balderas RN [facility] 09-03-2020 COVID-19 vaccine, fu ll dose (MODERNA) Marianne Balderas RN [facility] 08-06-2020 COVID-19 vaccine, fu ll dose (MODERNA) Marianne Balderas RN [facility] 05-29-2020 influenza, high-dose , quadrivalent vaccine (FLUZONE HIGH DOSE QUADRIVALENT) Marianne Balderas RN [facility] 04-16-2019 influenza, high dose seasonal, preservative-free Marianne Balderas RN [facility] 05-22-2018 influenza, high dose seasonal, preservative-free Marianne Balderas RN [facility] 04-04-2018 influenza, injectabl e, quadrivalent, preservative free Dr. Clarice Murillo MD Work Phone: [facility] 03-31-2017 influenza, high dose seasonal, preservative-free Marianne Balderas RN [facility] 06-28-2016 influenza, high dose seasonal, preservative-free Marianne Balderas RN [facility] 06-17-[address] Clarice Murillo MD Work Phone: [facility] 06-25-2015 influenza, high dose seasonal, preservative-free Marianne Balderas RN [facility] 06-25-2015 pneumococcal conjuga te vaccine, 13 valent Marianne Balderas RN [facility] 05-13-2014 influenza, seasonal, injectable Marianne Balderas RN [facility] Work Phone: 05-21-2013 influenza virus vacc ine, unspecified formulation Marianne Balderas RN [facility] 05-22-2012 influenza virus vacc ine, unspecified formulation Marianne Balderas RN [facility] 02-09-2012 tetanus and diphther ia toxoids, adsorbed, preservative free, for adult use (2 Lf of tetanus toxoid and 2 Lf of diphtheria toxoid) Marianne Balderas RN [facility] 04-22-2010 influenza virus vacc ine, unspecified formulation Marianne Balderas RN [facility] 04-30-2009 influenza virus vacc ine, unspecified formulation Marianne Balderas RN [facility] Work Phone: 04-17-2006 pneumococcal polysaccharide vaccine, 23 valent Marianne Balderas RN [facility] Payers Date Payer Category Payer Self-pay 2022 Medicare (Managed Care) PRIMETIM E [id number] 2022 Unknown [id number] 2010 Unknown [employer]URED LIFE ASS [employer] LIFE MEDICARE SUPPLEMENT [id number] 2010-Present [phone] [address] [place] [address] Indemnity [id number] 2010 Unknown [id number] 2002 Medicare MEDICARE MEDICAR E A AND B [id number] 2002-Present [phone] [place] [id number] Medicare [id number] 2002 Medicare MEDICARE MEDICAR E A AND B [id number] 2002-Present [phone] [place] [address] Medicare [id number] Unknown [id number] Unknown [id number] Unknown [id number] 62 Unknown [id number] 62 Unknown [id number] 62 Unknown [id number] 62 Unknown [id number] 62 Unknown [id number] 62 Unknown [id number] 62 Unknown [id number] 62 Unknown [id number] 62 Unknown [id number] 62 Unknown [id number] 62 Unknown [id number] 62 Unknown [id number] 62 Unknown [id number] 62 Social History Date Type Detail Facility Start: 08-01-2018 End: 08-01-2024 Tobacco smoking status NHIS Ex-smoker [facility] Start: 1959 End: 10-30-1990 History of tobacco use Current smoker [facility] Start: 1959 End: 10-30-1990 History of tobacco use Cigarette Smoker [facility] Start: 05-29-2021 End: 11-08-2024 Alcohol intake Current non-drinker of alcohol (finding) [facility] Start: 08-01-2018 End: 06-04-2022 Tobacco Comment Multiple 4-5 year quits during smoking career. [facility] Start: 1935 Sex Assigned At Male [facility] Work Phone: Start: 11-20-2021 End: 06-08-2022 Exposure to SARS-CoV-2 (event) Not sure [facility] Start: 08-01-2018 End: 11-29-2022 Cigarettes smoked current (pack per day) - Reported 2 [facility] Work Phone: Start: 08-01-2018 End: 08-01-2024 Tobacco use and exposure Smokeless tobacco non-user [facility] Work Phone: Start: 11-29-2022 End: 01-24-2023 Tobacco use panel [facility] Work Phone: Start: 06-18-2012 Adult Depression Screening Assessment 0 [facility] Work Phone: Start: 07-25-2017 Gender identity Identifies as male gender (finding) [facility] Work Phone: Start: 07-25-2017 Sexual orientation Heterosexual (lori hyman) [facility] Work Phone: Start: 11-08-2024 End: 03-10-2025 Tobacco smoking status NHIS Never smoked tobacco (finding) [facility] Start: 11-08-2024 Rare Rare [facility] Start: 11-08-2024 None None [facility] Start: 06-28-2018 Spouse/ Significant Other Spouse/ Significant Other [facility] Start: 11-08-2024 Non-smoker Non-smoker [facility] Start: 11-10-2024 Sex Male (finding) [facility] Medical Equipment Procedure Code Equipment Code Equipment Origin al Text Equipment Identifier Dates Excluder Conform able Aaa Endoprostesis 32mm X 14.5mm X [id number] Start: 01-31-2023 Conform Aaa Capitation [id number] S tart: 01-31-2023 Excluder Stent E npros Excdr Ibc 23x12 [id number] Start: 01-31-2023 Excluder Stent E npros Excdr Hc [id number] Start: 01-31-2023 Graft Excluder 2 7mm 21.5-25mm [place]-Derek Nitinol Fep 10cm Endovascular Stent - [id number] Start: 01-31-2023 Graft Excluder 2 7mm 21.5-25mm [place]-Derek Nitinol Fep 10cm Endovascular Stent - [id number] Start: 01-31-2023 2-Pc Uni Perla Capitation [...] goals by 07/17/2023 (describe interventions done by [facility]) Functional Status Date Assessment Result Facility 03-12-2025 Functional status Ambulates [facility] Work Phone: 11-10-2024 Functional status Ambulates;Bath room Privilege [facility] Work Phone: 02-01-2023 Are you deaf, or do you have serious difficulty hearing No 02/01/2023 10:19 AM Jey Pearson RN No [facility] 02-01-2023 Are you blind, or do you have serious difficulty seeing, even when wearing glasses No 02/01/2023 10:19 AM Jey Pearson RN No [facility] 02-01-2023 Do you have serious difficulty walking or climbing stairs No 02/01/2023 10:19 AM EDT Jey Ahuja, RUBEN No [facility] 02-01-2023 Do you have difficul ty dressing or bathing No 02/01/2023 10:19 AM EDT Jey Ahuja RN No [facility] 02-01-2023 Because of a physica l, mental, or emotional condition, do you have difficulty doing errands alone such as visiting a physician's office or shopping No 02/01/2023 10:19 AM EDJey Obrien, RUBEN No [facility] Mental Status Date Assessment Result Facility 03-12-2025 Cognitive function Voice/Name [facility] Work Phone: 11-10-2024 Cognitive function Voice/Name [facility] Work Phone: 12-24-2014 Because of a physica l, mental, or emotional condition, do you have serious difficulty concentrating, remembering, or making decisions No 12/24/2014 10:18 AM EDT Marianne Escobar MA No [facility] Clinical Notes 07-09-2014 to 04-26-2025 Francia Luna MD - 04/02/2025 2:15 PM EDTTelephone Encounter - Elizabeth Alvarez LPN - 03/28/2025 4:39 PM EDTTelephone Encounter - Elizabeth Alvarez LPN - 03/28/2025 4:39 PM EDT Note Date & Type Note Facility 04-26-2025 Note HNO ID: [id number] Author: CLARICE MURILLO MD Service: ? Author Type: Physician Type: Progress Notes Filed: 04/26/2025 11:47 Note Text: Chief Complaint Follow up leg swelling Recording using [email or web address] software for draft documentation of the visit was discussed with the patient/authorized quality control representative; all questions welcomed and answered. Patient/authorized quality control representative agreed to proceed HPI Paco is a 89-year-old male with a history of mitral valve prolapse, aortic dilation, and COPD, presenting for follow-up on recent echocardiogram results and management of lower extremity edema. Paco reports significant lower extremity edema, which has improved since starting Lasix every other day. Initially, he took Lasix daily for a few days before transitioning to the current regimen. He notes that the edema was severe, describing it as swelled up like crazy, but now observes that his left leg is almost back to normal, while the other still has some residual swelling. He denies dyspnea, and attributes any occasional shortness of breath to his COPD. He also denies any new symptoms related to his mitral valve prolapse or aortic dilation. Paco received a cortisone injection in his knee yesterday, which provided partial relief. He mentions that his knee is worn out, similar to his shoulder. He is also taking a magnesium supplement but admits to occasionally forgetting to take it. He previously discontinued a different magnesium supplement due to gastrointestinal discomfort but reports no issues with the current one. Paco had an echocardiogram yesterday, and he inquires about the results. He recalls being told that his aorta was slightly dilated 15 years ago and wonders if there has been any change. He also mentions a past episode of carotid artery evaluation, which ultimately showed no significant issues. Past medical history, appointments, medications, allergies reviewed. [...] W/COLLJ SPEC WHEN PFRMD 09/19/2011 Colonoscopy [facility] ENDOVASCULAR ANEURYSM REPAIR 01/2013 with bi-liac [...] on File Prior to Visit Medication Sig magnesium oxide (MAGOX) 400 mg (241.3 mg magnesium) tablet Take 1 tablet by mouth once daily. furosemide (LASIX) 20 mg tablet Take daily X 3 days; then take one tablet every other day. ramipril (ALTACE) 10 mg capsule Take 1 [...] mouth daily before breakfast. Take on empty stom (more content not included)... [facility] 04-22-2025 Note HNO ID: [id number] Author: YNES SOUZA PA-C Service: ? Author Type: Physician Artificial Inseminator Type: Progress Notes Filed: 04/22/2025 13:38 Note Text: Large Joint Arthro/Inj: R knee joint 04/22/2025 1:38 PM The procedure site was prepped in the usual sterile fashion. Site: R knee joint Medications: 6 mg betamethasone acetate-betamethasone sodium phosphate 6 mg/mL Anesthetics: 5 mL lidocaine (PF) 10 mg/mL (1 %) Outcome: Tolerated well, no immediate complications Post-injection instructions were reviewed with the patient and the patient voiced understanding of these instructions. Informed Consent Consent Obtained: Verbal [place] Protocol A moment to CARE was completed. [...] procedure. Correct side/site marked and visible. Medications required for procedure verified. No fire risk assessment and interventions applicable. No implant(s) inserted. SIGN OUT No specimen collected. All instruments, equipment, possible retained foreign bodies accounted for. No post-procedure POC communication to the patient's multidisciplinary team (including the bedside nurse for hospitalized patients) applicable. [facility] 04-22-2025 Note HNO ID: [id number] Author: SAMARIA HALE MA Service: ? Author Type: Annual Campaign Manager Type: Progress Notes Filed: 04/22/2025 13:38 Note Text: AMB ROOMING INTAKE FLOWSHEET DATA Pain Pain Level: 8 Pain Location: Knee-Right Description: Sharp Duration Amount of Time: 2 Duration Units: Years Frequency: Continuous Intervention/Comfort measure: Medication [facility] 04-10-2025 Note HNO ID: [id number] Author: NEISHA COPE APRN.SARAI Service: ? Author Type: Nurse Practitioner Type: Progress Notes Filed: 04/10/2025 13:04 Note Text: This is a 89 year old male who presents today with: The patient is an 89-year-old male with CHF and COPD, presenting for evaluation of lower extremity edema. HISTORY OF PRESENT ILLNESS: Edema: - Generalized LE edema x1.5 months, initially starting in the right leg. - Paco describes sensation in legs as like there's a hole and jelly between the skin and the muscle. - Recent episode of right arm swelling after resting arm on 's chair. Did a 3-day trial of lasix. Pt reports no improvement. However, noted that there was a 5# weight loss between 03/27 and 04/02. - Paco denies dyspnea, chest pain, or palpitations. - Paco is unable to wear most shoes due to swelling; only one pair fits. - Paco is unable to wear compression socks due to difficulty putting them on. - Paco elevates feet daily in an easy chair. - Paco admits to high salt intake. - Paco denies cold sensation in feet. Concerned about possible CHF. - Last echocardiogram was a long time ago. - Paco no longer sees a hair or beauty salon assistant; distrusts previous cardiologists due to past medication issues. - History of mitral valve prolapse and calcification. PAST MEDICAL HISTORY: PAST MEDICAL HISTORY Diagnosis [...] W/COLLJ SPEC WHEN PFRMD 09/19/2011 Colonoscopy [facility]pt [facility] ENDOVASCULAR ANEURYSM REPAIR 01/2013 with bi-liac [...] [Gemfibrozil] MEDICATIONS Current Outpatient Medications Medication Sig furosemide (LASIX) 20 mg tablet Take daily X 3 days; then take one tablet every other day. ramipril (ALTACE) 10 mg capsule Take 1 [...] Take 1 tablet by mouth once daily. rddpsitu-xcuqrwxrx-qyzxxafehvqtx e (CORTISPORIN) 3.5-10,000-1 mg/mL-unit/mL-% otic suspension Use 4 Drops in the ears four times daily. x 1 week clotrimazole-betamethasone (LOTRISONE) cream Apply 1 application to affected area two times a day. As needed acetaminophen (TYLENOL) 500 mg tablet [...] Brother Heart disease Son No Family History (more content not included)... [facility] 04-02-2025 History of Presen t illness Narrative Images from the original note were not included. . [facility] [place] Note Patient name: Paco Whitney PCP: Clarice Murillo MD CC: COPD HPI: Paco Whitney 89 year old male former 60 pack year smoker, quitting 1990 with PMH significant for COPD/CB, GERD, HTN, AAA s/p repair, pulmonary nodules (3 cm mass s/p FNA 2015 negative for malignant cells), ILD. Current inhaled therapy with Symbicort and albuterol. From pulmonary standpoint he has been doing well no significant cough, sputum, wheezing or shortness of breath. No recent illnesses or hospitalizations. recently had a stroke and is now in [facility]. Has significant dementia and is non-ambulatory. This is very distressing to him. DATA: Imaging / Diagnostic Studies: 2022: 2021: 2018: 2016: 2015: Images reviewed, see HPI PAST MEDICAL HISTORY Diagnosis Date AAA [...] DYE.. Lopid [Gemfibrozil] Other: See Comments Myalgia. furosemide (LASIX) 20 mg tablet Take 1 tablet by mouth [...] Take 1 tablet by mouth once daily. lhstkqky-rriqlckwt-oyttfznvyruce e (CORTISPORIN) 3.5-10,000-1 mg/mL-unit/mL-% otic suspension Use 4 Drops in the ears four times daily. x 1 week clotrimazole-betamethasone (LOTRISONE) cream Apply 1 application to affected area two times a day. As needed acetaminophen (TYLENOL) 500 mg tablet Take 2 tablets by mouth every 6 hours. cholecalciferol (VITAMIN D3) 1,000 unit tab tablet Cholecalciferol (Vit D3) Active 3000 UNIT TWICE A DAY November 23, 2014 8:06am aspirin 81 mg cap Take 1 capsule by mouth once daily. SOCIAL HISTORY[1] FAMILY HISTORY Problem Relation Age of Onset [...] W/COLLJ SPEC WHEN PFRMD 09/19/2011 [facility] ENDOVASCULAR ANEURYSM REPAIR 01/2013 with bi-lia device HERNIA REPAIR HX 04/03/2013 PAST SURGICAL HISTORY OF 1971 Back Surgery PAST SURGICAL HISTORY OF 11/15/2016 Colonoscopy, Dr. Romeo RPR RETINAL DTCHMNT DRG SUBRETINAL FLUID PC 2003 Laser repair retinal detach, right eye TONSILLECTOMY PRIMARY/SECONDARY <AGE 14 Tonsillectomy VASECTOMY UNI/BI SPX W/POSTOP SEMEN EXAMS 1963 PMH, Social history, family history and surgical history reviewed and updated in EMR REVIEW OF SYSTEMS: CONSTITUTIONAL: No fevers, chills, nightsweats, unintended weight loss CARDIOVASCULAR: No chest pain, palpitations. Edema PULM: See HPI GI: No dysphagia/odynophagia, problematic reflux. NEURO: Balance issue, ambulates with walker INTEGUMENTARY: Ecchymoses PHYSICAL EXAMINATION: BP 121/73 Pulse 76 Wt 186 lb 9.6 oz (84.6kg) SpO2 94% General Appearance: Elderly, male NAD. Skin: Skin color, texture, turgor normal, no suspicious rashes or lesions. Ecchymoses Head: Normocephalic, no masses, lesions, tenderness or abnormalities. Chest: Kyphosis Oropharynx: Poor dentition, no thrush. Neck: No masses or adenopathy. Lungs: Not labored, no wheezes or crackles. Heart: RRR, no murmur. Extremities: Edema, no clubbing. Assessment/Plan: Mild COPD -Clinically stable. Continue Symbicort and albuterol Lung mass -Has appearance of rounded atelectasis from abdominal CT 2022. Previous fine needle aspirate negative for malignant cells. Review of imaging dating back to 2014 does show very slow increase in size which could be consistent with rounded atelectasis or a slow growing malignancy. Offered updated CT +/- PET scan. Patient declining further evaluation Former cigarette smoker -Former smoker with mild COPD -Continue abstinence Francia Luna MD [facility] [place] [1] Social History Tobacco Use Smoking status: Former Current packs/day: 0.00 Average packs/day: 2.0 packs/day for 32.0 years (64.0 ttl pk-yrs) Types: Cigarettes Start date: 1959 Quit date: 10/30/1990 Years since quittin.4 Smokeless tobacco: Never Tobacco comments: Multiple 4-5 year quits during smoking career. Vaping Use Vaping status: Never Used Substance Use Topics Alcohol use: No Drug use: No documented in this encounter [facility] 04-02-2025 Note HNO ID: [id number] Author: FRANCIA LUNA MD Service: ? Author Type: Physician Type: Progress Notes Filed: 04/02/2025 15:59 Note Text: . [facility] [place] Note Patient name: Paco Whitney PCP: Clarice Murillo MD CC: COPD HPI: Paco Whitney 89 year old male former 60 pack year smoker, quitting 1990 with PMH significant for COPD/CB, GERD, HTN, AAA s/p repair, pulmonary nodules (3 cm mass s/p FNA 2014 negative for malignant cells), ILD. Current inhaled therapy with Symbicort and albuterol. From pulmonary standpoint he has been doing well no significant cough, sputum, wheezing or shortness of breath. No recent illnesses or hospitalizations. recently had a stroke and is now in ECF. Has significant dementia and is non-ambulatory. This is very distressing to him. DATA: Imaging / Diagnostic Studies: 2022: 2021: 2018: 2016: 2015: Images reviewed, see HPI PAST MEDICAL HISTORY Diagnosis Date AAA [...] DYE.. Lopid [Gemfibrozil] Other: See Comments Myalgia. furosemide (LASIX) 20 mg tablet Take 1 tablet by mouth [...] Take 1 tablet by mouth once daily. pffzxomr-umdhcontp-ylzduxllgzbjk e (CORTISPORIN) 3.5-10,000-1 mg/mL-unit/mL-% otic suspension Use 4 Drops in the ears four times daily. x 1 week clotrimazole-betamethasone (LOTRISONE) cream Apply 1 application to affected area two times a day. As needed acetaminophen (TYLENOL) 500 mg tablet Take 2 tablets by mouth every 6 hours. cholecalciferol (VITAMIN D3) 1,000 unit tab tablet Cholecalciferol (Vit D3) Active 3000 UNIT TWICE A DAY November 23, 2014 8:06am aspirin 81 mg cap Take 1 capsule by mouth once daily. SOCIAL HISTORY[1] FAMILY HISTORY Problem Relation Age of Onset [...] W/COLLJ SPEC WHEN PFRMD 09/19/2011 [facility] ENDOVASCULAR ANEURYSM REPAIR 01/2013 with bi-liac device HERNIA REPAIR HX 04/03/2013 PAST SURGICAL HISTORY OF 1971 Back Surgery PAST SURGICAL HISTORY OF 11/15/2016 Colonoscopy, Dr. Romeo RPR RETINAL DTCHMNT DRG SUBRETINAL FLUID PC 2004 Laser repair retinal detach, right eye TONSILLECTOMY PRIMARY/SECONDARY Tonsillectomy VASECTOMY UNI/BI SPX W/POSTOP SEMEN EXAMS 1964 PMH, Social history, family history and surgical history reviewed and updated in EMR REVIEW OF SYSTEMS: CONSTITUTIONAL: No fevers, chills, nightsweats, unintended weight loss CARDIOVASCULAR: No chest pain, palpitations. Edema PULM: See HPI GI: No dysphagia/odynophagia, (more content not included)... [facility] 03-28-2025 Telephone encounter Note Phoned patient and went over results, notes from Neisha Cope VEGETABLE BUNCHER with understanding. He plans to get repeat lab done on 04/08 so can over it at 04/10 appt. [facility] 03-28-2025 Miscellaneous Notes Phoned patient and went over results, notes from Neisha Cope VEGETABLE BUNCHER with understanding. He plans to get repeat lab done on 04/08 so can over it at 04/10 appt. ----- Message from Neisha Cope APRN.BORDER MEASURER sent at 03/28/2025 2:16 PM EDT ----- ----- Message ----- From: Adilson, Background User Sent: 03/27/2025 7:18 PM EDT To: Neisha Cope APRN.BORDER MEASURER Can please let patient know that I received his lab results. He is just mildly anemic. He is a little bit lower than what he was at the hospital. Please verify that he has not had any further bleeding. Lets plan on rechecking this in two weeks when he returns for his recheck. The order is in. documented in this encounter [facility] 03-28-2025 Telephone encounter Note ----- Message from Neisha Cope APRN.BORDER MEASURER sent at 03/28/2025 2:16 PM EDT ----- ----- Message ----- From: Lab, Background User Sent: 03/27/2025 7:18 PM EDT To: Neisha Cope APRN.BORDER MEASURER [facility] 03-28-2025 Telephone encounter Note Can please let patient know that I received his lab results. He is just mildly anemic. He is a little bit lower than what he was at the hospital. Please verify that he has not had any further bleeding. Lets plan on rechecking this in two weeks when he returns for his recheck. The order is in. [facility] 03-28-2025 Note HNO ID: [id number] Author: NEISHA COPE APRN.SARAI Service: ? Author Type: Nurse Practitioner Type: Progress Notes Filed: 03/28/2025 10:23 Note Text: This is a 89 year old male who presents today with: The patient is an 89-year-old male with peripheral neuropathy, renal cysts, and fatty liver, presenting for evaluation of persistent bilateral lower extremity edema. HISTORY OF PRESENT ILLNESS: Bilateral Lower Extremity Edema: - Paco Whitney noted swelling in both legs and feet, initially in the right leg, now bilateral. - Edema persists overnight, particularly in the right leg. - Aggravated by prolonged walking. - Denies dyspnea or chest pain. - Family history of heart conditions. - Paco's attempts to use compression stockings were unsuccessful due to difficulty putting them on. - Elevates legs to alleviate swelling. Home BPs - 120's-130's. Peripheral Neuropathy: - Currently managed by Dr. Murillo. Recent Hospitalization: - Paco was hospitalized for two days due to a gastrointestinal bleed. - Underwent a colonoscopy, which revealed diverticulosis and hemorrhoids. - Previous episodes of bleeding associated with dietary intake (e.g., nevarez beans, corn, nuts). - Paco expressed dissatisfaction with the recent hospital experience. Was advised to recheck labs in 3-5 days. No bleeding since. PAST MEDICAL HISTORY: PAST MEDICAL HISTORY Diagnosis [...] W/COLLJ SPEC WHEN PFRMD 09/19/2011 [facility] ENDOVASCULAR ANEURYSM REPAIR 01/2013 with bi-lia [...] [Gemfibrozil] MEDICATIONS Current Outpatient Medications Medication Sig furosemide (LASIX) 20 mg tablet Take 1 tablet by mouth [...] Take 1 tablet by mouth once daily. xytaszgz-liayuxhsy-wqywapycgxirk e (CORTISPORIN) 3.5-10,000-1 mg/mL-unit/mL-% otic suspension Use 4 Drops in the ears four times daily. x 1 week clotrimazole-betamethasone (LOTRISONE) cream Apply 1 application to affected area two times a day. As needed acetaminophen (TYLENOL) 500 mg tablet [...] Diabetes Brother Heart disease Son No Family Hi (more content not included)... [facility] 03-28-2025 History of Presen t illness Narrative This is a 89 year old male who presents today with: The patient is an 89-year-old male with peripheral neuropathy, renal cysts, and fatty liver, presenting for evaluation of persistent bilateral lower extremity edema. HISTORY OF PRESENT ILLNESS: Bilateral Lower Extremity Edema: - Paco Whitney noted swelling in both legs and feet, initially in the right leg, now bilateral. - Edema persists overnight, particularly in the right leg. - Aggravated by prolonged walking. - Denies dyspnea or chest pain. - Family history of heart conditions. - Paco's attempts to use compression stockings were unsuccessful due to difficulty putting them on. - Elevates legs to alleviate swelling. Home BPs - 120's-130's. Peripheral Neuropathy: - Currently managed by Dr. Murillo. Recent Hospitalization: - Paco was hospitalized for two days due to a gastrointestinal bleed. - Underwent a colonoscopy, which revealed diverticulosis and hemorrhoids. - Previous episodes of bleeding associated with dietary intake (e.g., nevarez beans, corn, nuts). - Paco expressed dissatisfaction with the recent hospital experience. Was advised to recheck labs in 3-5 days. No bleeding since. PAST MEDICAL HISTORY: PAST MEDICAL HISTORY Diagnosis [...] W/COLLJ SPEC WHEN PFRMD 09/19/2011 [facility]oscopy [facility] ENDOVASCULAR ANEURYSM REPAIR 01/2013 with bi-liac [...] [Gemfibrozil] MEDICATIONS Current Outpatient Medications Medication Sig furosemide (LASIX) 20 mg tablet Take 1 tablet by mouth [...] Take 1 tablet by mouth once daily. zqmxxpzp-tdvxsbcuj-xhywvvwedskgq e (CORTISPORIN) 3.5-10,000-1 mg/mL-unit/mL-% otic suspension Use 4 Drops in the ears four times daily. x 1 week clotrimazole-betamethasone (LOTRISONE) cream Apply 1 application to affected area two times a day. As needed acetaminophen (TYLENOL) 500 mg tablet [...] Family History No COPD, lung cancer. SOCIAL HISTORY[1] REVIEW OF SYSTEMS Cardiovascular: (+) bilateral lower extremity edema Respiratory: (-) shortness of breath Gastrointestinal: (-) gastrointestinal bleeding Genitourinary: (-) urinary difficulty EXAM: BP 98/54 Pulse 72 Resp 16 Wt 86.6 kg (191 lb) SpO2 95% BMI 27.41 kg/m PHYSICAL EXAM: General Appearance: Well appearing, alert, in no acute distress, well-hydrated, well nourished.. Skin: Skin color, texture, turgor normal, no suspicious rashes or lesions. Head: Normocephalic, no masses, lesions, tenderness or abnormalities. Eyes: Anicteric sclera. Extraocular movements are intact. . Lungs: Lungs clear to auscultation. No wheezing, rhonchi, rales.. Heart: RRR without murmur, gallop, or rubs. No ectopy. Abdomen: Abdomen soft, non-tender. Bowel sounds normal. Extremities: No deformities, +2 pitting edema to midshin, skin discoloration, clubbing or cyanosis. Good capillary refill. . Neurologic: Gait normal. ASSESSMENT/PLAN 1. Leg swelling (M79.89) - Bilateral lower extremity edema, previously intermittent and primarily in the right, now persistent and including left foot. no associated dyspnea or chest pain; lungs clear to auscultation. - Start Lasix for 3 days to assess response. - Educated on potential for orthostatic hypotension and dizziness with diuretic use; advised to rise slowly from sitting or lying positions. - Encouraged adequate water intake to prevent dehydration. Prop feet, compression, limit sodium. - Follow-up in 2 weeks to reassess edema and response to Lasix. 2. Rectal bleeding (K62.5) No further bleeding. - Recent hospitalization for rectal bleeding; colonoscopy performed during admission revealed hemorrhoids, no other source identified. - Order repeat CBC to monitor for anemia. - Patient declined to have labs done at the hospital, but agreed to have them done here. Discussed treatment plan and patient voices understanding. Patient's questions answered appropriately. Medications and potential side effects were discussed and patient voices understanding. Return to the office as scheduled or as needed for worsening/no improvement. Neisha Cope APRN.BORDER MEASURER Recording using [email or web address] software for draft documentation of the visit was discussed with the patient/authorized quality control representative; all questions welcomed and answered. Patient/authorized quality control representative agreed to proceed [1] Social History Tobacco Use Smoking status: Former Current packs/day: 0.00 Average packs/day: 2.0 packs/day for 32.0 years (64.0 ttl pk-yrs) Types: Cigarettes Start date: 1959 Quit date: 10/30/1990 Years since quittin.4 Smokeless tobacco: Never Tobacco comments: Multiple 4-5 year quits during smoking career. Vaping Use Vaping status: Never Used Substance Use Topics Alcohol use: No Drug use: No documented in this encounter [facility] 03-27-2025 Instructions Neisha Cope APRN.CNP - 03/27/2025 2:17 PM EDT Take on furosemide daily X 3 days. Recheck in 2 weeks. Let us know if no better/worsening. documented in this encounter [facility] 03-12-2025 Consult note [facility] 03-12-2025 Discharge summary [facility] 03-12-2025 Consult note Note Date/Time March 12, 2025 3:28pm [facility] Medical Records Department [address] [place] [id number] Pre-Anesthesia Evaluation 03/12/25 1511 MR#: [id number] Acct: [id number] Name: PACO WHITNEY Rep #:[id number] : 1935 89 From: Erlin Vences MD PCP: Dr. Clarice Murillo MD Status:AD M IN Y Race: C Location: [place] [address] ASA Classification* ASA Classification ASA Classification: 3 Assessment & Plan Anesthesia* Anesthesia Assessment Anesthesia Assessment: Discussed sedation and/or anesthesia options, risks, benefits, and alternatives with patient/parents/legal guardian/POA. Questions invited. The patient/parents/legal guardian/POA seems to understand and agrees to proceedwith anesthesia plan. Reviewed the physical assessment, medical history, allergy history and patient home medications list prior to surgery/procedure/anesthetic and documented any changes. Performed airway and anesthesia risk assessments. Anesthesia Type Anesthesia Type: MAC History Source History Obtained from:: Patient and Chart Anesthesia Focused Assessment* Temperature: 98.0 F Pulse Rate: 90 Blood Pressure: 106/72 Respiratory Rate: 12 Pulse Ox: 98 Oxygen Delivery Method: Room Air Airway Assessment Mouth opens: >3 cm Mallampati Score: I Teeth Condition: Missing (Multiple missing teeth. Remaining teeth are tight.) Neck Range of motion (ROM): Limited ROM (Somewhat Decreased) Labs Anesthesia Preop lab: CBC WBC 7.8 K/mm3 (4.4-11.0) 03/12/25 04:48 03/12/25 RBC 3.94 M/mm3 (4.6-6.2) L 03/12/25 04:48 03/12/25 Hgb 12.8 g/dL (13.0-16.5) L 03/12/25 04:48 5 Hct 37.2 % (40-54) L 03/12/25 04:48 03/12/25 Plt Count 190 K/mm3 (150-450) 03/12/25 04:48 03/12/25 CHEMISTRY Potassium 4.5 mmol/L (3.3-5.1) 03/12/25 04:48 03/12/25 Sodium 137 mmol/L (133-145) 03/12/25 04:48 03/12/25 Magnesium 1.6 mg/dL (1.5-2.2) 11/08/24 18:28 11/08/24 Phosphorus 3.3 mg/dL (2.7-4.5) 11/10/24 03:56 11/10/24 BUN 22 mg/dL (4-19) H 03/12/25 04:48 03/12/25 Creatinine 0.98 mg/dL (0.70-1.20) 03/12/25 04:48 03/12/25 Glucose 102 mg/dL (70-99) H 03/12/25 04:48 03/12/25 POC Glucose 104 mg/dL (74-106) 03/12/25 13:14 03/12/25 TSH 2.530 uIU/mL (0.300-4.200) 11/08/24 18:28 10/17 11/09 COAG PT 14.7 SECONDS (11.7-14.9) 03/12/25 04:48 Pre-Assessment Diagnosis/Proposed Procedure Planned Operative Procedure(s): Colonoscopy with possible biopsy and/or polypectomy. Anesthesia History Anesthesia History - accounting administrative assistant: Anesthesia History - accounting administrative assistant Hx Hospitalization No 06/27/20 15:49 Any Problems With Anesthesia Yes: N/V, unsure which 03/11/25 21:24 medicaion Cholinesterase deficiency No 03/11/25 21:24 You/Your Family Experience No 03/11/25 21:24 fever (hyperthermia) with Relationship Recent Exposure to Contagious No 03/11/25 21:24 Disease Does patient have nerve No 03/11/25 21:24 stimulator Patient instructed to have No 03/11/25 21:24 device shut off --Does patient have Pacemaker No 03/12/25 14:56 or ICD? When Was Last Pacemaker Check QUESTION #4 FULL TEXT: You/Your Family Experience fever (hyperthermia) with Anesthesia Last Oral Intake Last Oral intake: Last Oral Intake NPO since 23:30 03/12/25 14:56 Meds taken in AM with sips of No 03/12/25 14:56 water? Meds patient instructed to take am of surgery PONV PONV - accounting administrative assistant: PONV - accounting administrative assistant Female HX of Motion Sickness HX of N/V After Surgery Non-Smoker Duration of Surgery greater than 60 minutes Number of Risk Factors PONV Score Height & Weight Height & Weight: Anesthesia: Height & Weight Height 5 ft 7 in 03/11/25 21:29 Weight: 82.6 kg 03/11/25 21:29 Body Mass Index (BMI) 28.5 03/12/25 14:56 Respiratory Assessment Respiratory Assessment - accounting administrative assistant: Respiratory Tract Infection Hx - accounting administrative assistant Hx Respiratory Tract Infection No 03/11/25 21:24 STOP Sleep Apnea STOP Sleep Apnea - accounting administrative assistant: STOP Sleep Apnea - accounting administrative assistant Hx Hypertension Yes 03/10/25 20:18 Hx Sleep Apnea No 03/10/25 20:18 CPAP BIPAP Do you snore loudly (louder No 03/10/25 20:18 than talking or can be heard Do you often feel tired/ No 03/10/25 20:18 fatigued/ sleepy during daytime? Has anyone observed you stop No 03/10/25 20:18 breathing during sleep? STOP Results Negative 03/10/25 20:18 QUESTION #5 FULL TEXT : Do you snore loudly (louder than talking or can be heard through closed doors)? Tobacco Use History Tobacco Use History - accounting administrative assistant: Tobacco Use History - accounting administrative assistant Tobacco Use Non-smoker 11/08/24 17:59 Smoking Status Never smoker 03/10/25 20:18 Hx Tobacco Use No 03/10/25 20:18 Years Smoking Packs Smoked per Day Smoking Cessation Date was within the last 15 years Hx Smoking Cessation Date Hx Smoking Cessation No 03/10/25 20:18 Counseling Hematologic Medial History Hematologic Hx - accounting administrative assistant: Hematologic Medical Hx - academic services professional Hx of Blood Transfusion Yes 03/10/25 20:18 Hx of Transfusion in last 3 No 03/10/25 20:18 Months Date of Last Transfusion (if within last 3 months) Ever experience any problems No 03/10/25 20:18 with transfusion(s)? Specify any problems Hx of Preganancy in last 3 N/A 03/10/25 20:18 Months Nurse Filling Out Transfusion [place]OW[place] 03/10/25 20:18 & Questions: Date: 03/10/25 03/10/25 20:18 Time: 20:28 03/10/25 20:18 Patient unable to answer at this time (ie. confused, unrespo /Reproduction History /Reproductive History - accounting administrative assistant: /Reproductive Hx- accounting administrative assistant Hx Now No 03/11/25 21:24 Gestational Age (in weeks): EDC: Hx Hx Para Hx Section SAB No 03/11/25 21:24 Active Medications Active Medications: Current Medications Generic Name Dose Route Start Last Admin Trade Name Freq PRN Reason Stop Dose Admin Acetaminophen 650 mg 03/10/25 20:18 03/11/25 21:15 Acetaminophen 325 Mg Tablet PO 650 mg Q6H PRN PRN Administration Pain 1-10 Or Fever>100.7 Albuterol Sulfate 2.5 mg 03/10/25 20:58 Albuterol 2.5 Mg/3 Ml Vial.Neb. INHALATION Q4H PRN PRN Sob &/Or Wheezing Albuterol Sulfate 2.5 mg 03/10/25 21:15 03/12/25 13:30 Albuterol 2.5 Mg/3 Ml Vial.Neb. INHALATION 2.5 mg Q6HWA.RT SHILA Administration Budesonide 0.5 mg 03/10/25 21:15 03/12/25 07:05 Budesonide Respules 0.5 Mg/2 Ml Ampul.Neb. INHALATION 0.5 mg Q12H.RT SHILA Administration Calamine/Phenol 1 applic 03/12/25 10:00 03/12/25 08:35 Menthol/Lanolin/Calamine/Znox 113 Gm Tube TOPICAL 1 dose BID SHILA Administration Protocol Cholecalciferol 125 mcg 03/11/25 10:00 03/12/25 08:36 Cholecalciferol (Vit D3) 125 Mcg Capsule (5,000 Units) PO 125 mcg DAILY SHILA Administration Fenofibrate 145 mg 03/11/25 10:00 03/12/25 08:36 Fenofibrate 145 Mg Tablet PO 145 mg DAILY SHILA Administration Gabapentin 600 mg 03/10/25 22:00 03/12/25 13:15 Gabapentin 600 Mg Tablet PO 600 mg TID SHILA Administration Sodium Chloride 250 mls @ 15 mls/hr 03/10/25 20:19 IV .[id number] PRN Saline Flush Sodium Chloride 250 mls @ 15 mls/hr 03/10/25 20:19 IV .[id number] PRN Additional IVPB Infusion Lactated Ringer's 1,000 mls @ 15 mls/hr 03/12/25 15:00 03/12/25 15:06 IV 15 mls/hr .Q48H SHILA Administration Latanoprost 1 drp 03/11/25 10:00 03/12/25 08:36 Latanoprost 0.005% 1 Bottle OPHTHALMIC 1 drp DAILY SHILA Administration Melatonin 3 mg 03/10/25 20:18 Melatonin 3 Mg Tablet PO QHS PRN PRN INSOMNIA Ondansetron HCl 4 mg 03/10/25 20:18 Ondansetron 4 Mg/2 Ml Vial IV Q8H PRN PRN NAUSEA/VOMITING Pantoprazole Sodium 40 mg 03/11/25 10:00 03/12/25 08:36 Pantoprazole Sodium 40 Mg Tablet PO 40 mg DAILY SHILA Administration Sodium Chloride 10 - 40 ml 03/10/25 20:19 03/11/25 14:59 0.9% Saline Lock 10 Ml Syringe IV 10 ml UD PRN Administration SALINE FLUSH Tamsulosin HCl 0.4 mg 03/10/25 22:00 03/11/25 21:16 Tamsulosin Hcl 0.4 Mg Capsule PO 0.4 mg QHS SHILA Administration PFSH Medical History PAD (peripheral artery disease) [...] inhalation Q 4H PRN Sob &/Or 07/05/14 03/10/25 History aerosol inhaler Wheezing ramipril 10 mg capsule 10 mg PO DAILY BP 07/05/14 0 03/10/25 History pantoprazole 40 mg tablet,delayed 40 mg PO DAILY gerd 08/21/14 11/08/24 History release cholecalciferol (vitamin D3) 25 5,000 unit PO TID Supp lement 11/23/14 03/10/25 History mcg (1,000 unit) tablet tamsulosin 0.4 mg capsule 0.4 mg PO QHS Prostate 11/2303/09/25 20:40 History budesonide-formoterol HFA 160 2 puff inhalation BID Br eathing 06/28/18 03/10/25 08:39 History mcg-4.5 mcg/actuation aerosol inhaler fenofibrate 160 mg tablet 160 mg PO DAILY cholesterol 04/10/19 03/10/25 History albuterol sulfate 2.5 mg/3 mL 2.5 mg continuous nebuli zation Q4H 11/08/24 Unknown History (0.083 %) solution for nebulization PRN wheezing gabapentin 600 mg tablet 600 mg PO TID neuropathy 03/10/25 02:40 History latanoprost 0.005 % eye drops 1 drp ophthalmic (eye) D AILY 11/08/24 03/10/25 History glaucoma Allergy/AdvReac Type Severity Reaction Status Date / Time cerivastatin sodium (From Allergy Severe Other Verified 03/10/25 15:48 [employer]) gemfibrozil (From Lopid) AdvReac Other Verified 03/10/25 15:48 meperidine (From Demerol) AdvReac Other Verified 03/10/25 15:48 Surgical History Total knee replacement status History of colonoscopy (~03/2019) History of esophagogastroduodenoscopy (EGD) (~03/2019) History of back surgery History of detached retina repair Status post vasectomy History of cholecystectomy History of left knee replacement History of back surgery Social History household members: none Smoking Status: Never smoker Review of Systems (Anesthesia) ROS Narrative System reviewed and no additional complaints, except as documented. Physical Exam Resp Auscultation: wheezes expiratory wheezes (Will plan to give DuoNeb nebulizer treatment.) 03/12/25 0476 <Electronically signed by Erlin fabian MD> Date _ Erlin Vences MD [facility] Signature: Date CC: ~ Signed [facility] Work Phone: 1(599) 478-985908-26-2025 [facility] Medical Records Department [address] [place] [address] Discharge Summary 03/12/251714 MR#: [id number] Acct: [id number] Name: PACO WHITNEY Rep #: [id number] : 1935 89 From: Jaspal Prasad MD PCP: Dr. Clarice Murillo MD Status:ADM IN Location: [place] [address] Providers Date of Admission: 03/10/25 Primary Care Physician: Dr. Clarice Murillo MD Consultations 03/10/25 20:18 Consult: Gastroenterology Routine Consulting Provider: [facility] Reason for Consult: lower GIB, h/o diverticular bleed EMERGENT Consult: No MD Notified: Yes Date Notified: 03/11/25 Time Notified: 19:24 Method of Notification: Text Reason For Visit: LOWER GI BLEED Diagnosis Discharge Diagnosis (1) Rectal bleed: Status: Acute Code(s): K62.5 - Hemorrhage of anus and rectum Medications at Discharge Home Medications albuterol sulfate 90 mcg/actuation aerosol inhaler 2 puff inhalation Q4H PRN Sob /Or Wheezing 07/05/14 ramipril 10 mg capsule 10 mg PO DAILY BP 07/05/14 pantoprazole 40 mg tablet,delayed release 40 mg PO DAILY gerd 08/21/14 cholecalciferol (vitamin D3) 25 mcg (1,000 unit) tablet 5,000 unit PO TID Supplement 11/23/14 tamsulosin 0.4 mg capsule 0.4 mg PO QHS Prostate 11/23/14 budesonide-formoterol HFA 160 mcg-4.5 mcg/actuation aerosol inhaler 2 puff inhalation BID Breathing 06/28/18 fenofibrate 160 mg tablet 160 mg PO DAILY cholesterol 04/10/19 albuterol sulfate 2.5 mg/3 mL (0.083 %) solution for nebulization 2.5 mg continuous nebulization Q4H PRN wheezing 11/08/24 gabapentin 600 mg tablet 600 mg PO TID neuropathy 11/08/24 latanoprost 0.005 % eye drops 1 drp ophthalmic (eye) DAILY glaucoma 11/08/24 Hospital Course Operations None Procedures Colonoscopy Summary of Care Provided Minutes Spent on Discharge: 45 Hospital Course: Per HPI: PACO WHITNEY, is a 89 M who presented to [facility] ED on 03/10/2025 with lower GI bleed. Medical history significant for diverticulosis with diverticular bleeds. Last diverticular bleed was back in 2019. He presented with bright red blood per rectum with significant clots. Colonoscopy showed diverticulosis in the entire examined colon with blood in the sigmoid colon, no active signs of bleeding. Patient notes that his was hospitalized here this week and is now at [facility], and he has been on his normal routine and frequently going back and forth from home to the hospital and now [facility]. He has also been eating out with more meals over that timeframe. This afternoon while he was out of the house, he fell again to have an urgent bowel movement and went to the bathroom and had a bloody stool. He then went home and had another bloody bowel movement, so he came in for further evaluation. In the ED he had a third bright red stool. He was normotensive and hemodynamically stable on room air. Hemoglobin 12.9, baseline 12-13. BMP with creatinine 1.33, baseline 1.1-1.2. CT abdomen pelvis showed diverticulosis with no source of bleeding identified. Given the multiple episodes of BRBPR and history of diverticular hemorrhage, hospitalist was contacted for admission. I saw the patient at bedside in the ED, family members were present. Patient was mildly fatigued appearing but otherwise sitting back comfortably in bed, conversing normally, in no acute distress. Patient was alert and oriented x 3 and is mentally sharp for his age. Had mild left lower quadrant abdominal pain but otherwise denies any other pain or discomfort. No other acute concerns currently. Will be admitted for further management. Hospital Course: 1. Bright red blood per rectum suspected secondary to recurrent diverticular bleed and internal hemorrhoids???89-year-old male presented from home to the hospital because of bright red blood per rectum and clots. Hemoglobin was minimally lowered on admission to 12.9 in October of this year he was around 13 and on the day of discharge she was 12.8. No further episodes of bleeding but he did have a colonoscopy which demonstrated significant diverticulosis as well as internal hemorrhoids. I discussed with him the possibly for discharge after his colonoscopy and he expressed understanding of the risks and benefits of going home and would like to go home today. Since there is no active bleeding on his colonoscopy I think going home is reasonable at this time. I do recommend that he follow-up with his PCP in 3 to 5 days to monitor his hemoglobin and I also have him following up with gastroenterology as an outpatient. We discussed indications for returning to the hospital and those include but not limited to symptomatic bleeding with lightheadedness and dizziness. 2. 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 [facility]08-26-2025 Procedure note [facility] Medical Records Department [address] [place] [address] Provation Physician Letter MR#: [id number] Acct: [id number] Name: PACO WHITNEY Rep #:[id number] : 1935 89 From: Jf Mack DO PCP: Dr. Clarice Murillo MD Status:AD M IN 03/12/2025 Clarice Murillo [address] [place] [address] Re : Colonoscopy procedure for Paco Whitney Dear Dr. Murillo This procedure was performed on Wednesday, March 12, 2025. My impressions and recommendations are as follows: Impressions : - Preparation of the colon was fair. - Non-bleeding internal hemorrhoids. - Rectal varices. - Diverticulosis in the entire examined colon. - Stool in the entire examined colon. - The examination was otherwise normal on direct and retroflexion views. - No specimens collected. Recommendations : - Discharge patient to home. - Resume regular diet. - Continue present medications. - No repeat colonoscopy due to age. My findings are described in the full procedure note, which is enclosed. If I can be of further assistance, please feel free to contact me at . Sincerely, Jf Mack DO 03/12/2025 4:55:03 PM This report has been signed electronically. 03/12/251654 Date _ Jf Mack DO Cosigner Signature: Date (if indicated) CC: CHRIS Samuels; CHRIS Carlin; Dr. Miller Vides DO; Dr. Clarice Murillo MD; Dr. Jaspal Prasad MD; Dr. Riky Li MD; OLI Levine; Jf Mack DO ~ Date Dictated: 03/12/257 Date Transcribed: Press Tender Star Signal: RF Signed [facility]08-26-2025 Procedure note [facility] Medical Records Department [address] [place] [address] Colonoscopy Report MR#: [id number] Acct: [id number] Name: PACO WHITNEY Rep #:[id number] : 1935 89 From: Jf Mack DO PCP: Dr. Clarice Murillo MD Status:AD M IN Patient Name: Paco Whitney Procedure Date: 03/12/2025 4:37 PM Date of : 1935 Age: 89 Procedure: Colonoscopy Indications: Hematochezia Providers: Jf Mack DO Medicines: Monitored Anesthesia Care Patient Profile: This is an 89 year old male. Refer to note in patient chart for documentation of history and physical. Last Colonoscopy: several years ago. Complications: No immediate complications. Procedure: Pre-Anesthesia Assessment: - Prior to the procedure, a History and Physical was performed, and patient medications and allergies were reviewed. The patient is competent. The risks and benefits of the procedure and the sedation options and risks were discussed with the patient. All questions were answered and informed consent was obtained. Patient identification and proposed procedure were verified by the physician in the pre-procedure area. Mental Status Examination: alert and oriented. Airway Examination: normal oropharyngeal airway and neck mobility. Respiratory Examination: clear to auscultation. CV Examination: normal. Prophylactic Antibiotics: The patient does not require prophylactic antibiotics. Prior Anticoagulants: The patient has taken no anticoagulant or antiplatelet agents. ASA Grade Assessment: III - A patient with severe systemic disease. After reviewing the risks and benefits, the patient was deemed in satisfactory condition to undergo the procedure. The anesthesia plan was to use monitored anesthesia care (MAC). Immediately prior to administration of medications, the patient was re-assessed for adequacy to receive sedatives. The heart rate, respiratory rate, oxygen saturations, blood pressure, adequacy of pulmonary ventilation, and response to care were monitored throughout the procedure. The physical status of the patient was re-assessed after the procedure. After I obtained informed consent, the scope was passed under direct vision. Throughout the procedure, the patient's blood pressure, pulse, and oxygen saturations were monitored continuously. The Colonoscope was introduced through the anus and advanced to the cecum, identified by appendiceal orifice and ileocecal valve. The colonoscopy was performed without difficulty. The patient tolerated the procedure well. The quality of the bowel preparation was fair. The ileocecal valve, appendiceal orifice, and rectum were photographed. Scope In: 4:38:16 PM Scope Withdrawal Time 0 hours 3 minutes 31 seconds Scope Out: 4:46:02 PM Total Procedure Duration Time 0 hours 7 minutes 46 seconds Findings: The perianal and digital rectal examinations were normal. Non-bleeding internal hemorrhoids were found during retroflexion. The hemorrhoids were severe, large and Grade IV (internal hemorrhoids that prolapse and cannot be reduced manually). 5 mm, non-bleeding rectal varices were found. Multiple small and large-mouthed diverticula were found in the entire colon. Stool was found in the entire colon. The exam was otherwise without abnormality on direct and retroflexion views. Impression: - Preparation of the colon was fair. - Non-bleeding internal hemorrhoids. - Rectal varices. - Diverticulosis in the entire examined colon. - Stool in the entire examined colon. - The examination was otherwise normal on direct and retroflexion views. - No specimens collected. Recommendation: - Discharge patient to home. - Resume regular diet. - Continue present medications. - No repeat colonoscopy due to age. Procedure Code(s): --- Professional --- 25759, Colonoscopy, flexible; diagnostic, including collection of specimen(s) by brushing or washing, when performed (separate procedure) CPT copyright 2021 [employer]. All rights reserved. The codes documented in this report are preliminary and upon seafood process worker review may be revised to meet current compliance requirements. Jf Mack DO 03/12/2025 4:55:03 PM This report has been signed electronically. Number of Addenda: 0 Note Initiated On: 03/12/2025 4:37 PM 03/12/25 8047 Date _ Jf Matias Signature: Date (if indicated) CC: Dr. Clarice Murillo MD; Jf Mack DO ~ Date Dictated: 03/12/25 1637 Date Transcribed: Press Tender Star Signal: RF Signed [facility]08-26-2025 Consult note [facility] Medical Records Department [address] [place] [address] Anesthesia Postop Eval I 03/12/25 1653 MR#: [id number] Acct: [id number] Name: WHITNEYPACO Josefina Rep #:[id number] : 1935 89 From: Jalen Nunez CRNA PCP: Dr. Clarice Murillo MD Status:AD M IN Y Race: C Location: [address] Anesthesia: Postop Eval I Current Vital Signs Temperature: 97.8 F Pulse Rate: 84 Blood Pressure: 83/58 Respiratory Rate: 16 Pulse Ox: 97 Oxygen Delivery Method: Room Air Assessment Airway patent: Yes Spontaneous unlabored respirations: Yes Mental status: Awake and Calm nausea: No Vomiting: No Anesthesia Complication: No Fluid Hydration Crystalloid volume administer (ml): 100 Total IV fluid infused: 100 Progress Note Anesthesia document: Postop Eval 1 completed: Yes 03/12/25 1654 y OPERATOR HELPER> Date _ Jalen Nunez OPERATOR HELPER Cosigner Signature: Date CC: ~ Signed [facility]08-26-2025 Progress note [facility] Medical Records Department [address] [place] [address] Progress Note 03/12/25 1624 MR#: [id number] Acct: [id number] Name: PACO WHITNEY Rep #:[id number] : 1935 89 From: Jf Mack DO PCP: Dr. Clarice Murillo MD Status:AD M IN Location: [place] [address] Progress Note Patient has been n.p.o. for colonoscopy today. He tolerated department any problems. Physical Exam Const alert, oriented x3, no apparent distress and healthy appearing General Appearance: cooperative GI normal to inspection, nondistended, normoactive bowel sounds, soft to palpation,non-tender and non-distended Percussion: normal to percussion Rectal Exam: deferred Assessment & Plan Assessment/Plan (1) Rectal bleed: PLAN: The patient will undergo colonoscopy to evaluate his lower GI tract. He was explained alternatives, risk and benefits include not withstanding bleeding,fracture, steps, perforation, need for surgery . He will have an ASA of 3. Visit Charges Inpatient E&M: 08085 Subs Hosp L2 03/12/25 1626 Jf Friend DO Cosigner Signature (if applicable): CC: ~ Signed [facility]08-26-2025 Consult note Author Gabrielle Burr [facility] Note Date/Time March 12, 2025 1: 36pm [facility] Medical Records Department [address] [place] [address] Counseling Note - Pharmacy 03/12/25 1336 MR#: [id number] Acct: [id number] Name: PACO WHITNEY Rep #:[id number] : 1935 89 From: Gabrielle Burr PCP: Dr. Clarice Murillo MD Status:AD M IN Y Location: [place] [address] Pharmacy ID Med Reconciliation Pharmacy Service has performed discharge medication reconciliation for this patient. The patient's discharge medication list was reviewed for discrepancies and discrepancies were resolved. Medications at Discharge Home Medications albuterol sulfate 90 mcg/actuation aerosol inhaler 2 puff inhalation Q4H PRN Sob&/Or Wheezing 07/05/14 ramipril 10 mg capsule 10 mg PO DAILY BP 07/05/14 pantoprazole 40 mg tablet,delayed release 40 mg PO DAILY gerd 08/21/14 cholecalciferol (vitamin D3) 25 mcg (1,000 unit) tablet 5,000 unit PO TID Supplement 11/23/14 tamsulosin 0.4 mg capsule 0.4 mg PO QHS Prostate 11/23/14 budesonide-formoterol HFA 160 mcg-4.5 mcg/actuation aerosol inhaler 2 puff inhalation BID Breathing 06/28/18 fenofibrate 160 mg tablet 160 mg PO DAILY cholesterol 04/10/19 albuterol sulfate 2.5 mg/3 mL (0.083 %) solution for nebulization 2.5 mg continuous nebulization Q4H PRN wheezing 11/08/24 gabapentin 600 mg tablet 600 mg PO TID neuropathy 11/08/24 latanoprost 0.005 % eye drops 1 drp ophthalmic (eye) DAILY glaucoma 11/08/24 03/12/25 1336 <Electronically signed by Gabrielle Burr> Date _ Gabrielle Burr Cosigner Signature (if applicable): Date CC: ~ Signed [facility] Work Phone: 1(252) 714-136608-26-2025 Consult note [facility] Medical Records Department [address] [place] [address] Pre-Anesthesia Evaluation 03/12/25 1511 MR#: [id number] Acct: [id number] Name: PACO WHITNEY Rep #:[id number] : 1935 89 From: Erlin Vences MD PCP: Dr. Clarice Murillo MD Status:AD M IN Y Race: C Location: [place] [address] ASA Classification* ASA Classification ASA Classification: 3 Assessment & Plan Anesthesia* Anesthesia Assessment Anesthesia Assessment: Discussed sedation and/or anesthesia options, risks, benefits, and alternatives with patient/parents/legal guardian/POA. Questions invited. The patient/parents/legal guardian/POA seems to understand and agrees to proceedwith anesthesia plan. Reviewed the physical assessment, medical history, allergy history and patient home medications list prior to surgery/procedure/anesthetic and documented any changes. Performed airway and anesthesia risk assessments. Anesthesia Type Anesthesia Type: MAC History Source History Obtained from:: Patient and Chart Anesthesia Focused Assessment* Temperature: 98.0 F Pulse Rate: 90 Blood Pressure: 106/72 Respiratory Rate: 12 Pulse Ox: 98 Oxygen Delivery Method: Room Air Airway Assessment Mouth opens: >3 cm Mallampati Score: I Teeth Condition: Missing (Multiple missing teeth. Remaining teeth are tight.) Neck Range of motion (ROM): Limited ROM (Somewhat Decreased) Labs Anesthesia Preop lab: CBC WBC 7.8 K/mm3 (4.4-11.0) 03/12/25 04:48 03/12/25 RBC 3.94 M/mm3 (4.6-6.2) L 03/12/25 04:48 03/12/25 Hgb 12.8 g/dL (13.0-16.5) L 03/12/25 04:48 5 Hct 37.2 % (40-54) L 03/12/25 04:48 03/12/25 Plt Count 190 K/mm3 (150-450) 03/12/25 04:48 03/12/25 CHEMISTRY Potassium 4.5 mmol/L (3.3-5.1) 03/12/25 04:48 03/12/25 Sodium 137 mmol/L (133-145) 03/12/25 04:48 03/12/25 Magnesium 1.6 mg/dL (1.5-2.2) 11/08/24 18:28 11/08/24 Phosphorus 3.3 mg/dL (2.7-4.5) 11/10/24 03:56 11/10/24 BUN 22 mg/dL (4-19) H 03/12/25 04:48 03/12/25 Creatinine 0.98 mg/dL (0.70-1.20) 03/12/25 04:48 03/12/25 Glucose 102 mg/dL (70-99) H 03/12/25 04:48 03/12/25 POC Glucose 104 mg/dL (74-106) 03/12/25 13:14 03/12/25 TSH 2.530 uIU/mL (0.300-4.200) 11/08/24 18:28 04/11/09 COAG PT 14.7 SECONDS (11.7-14.9) 03/12/25 04:48 Pre-Assessment Diagnosis/Proposed Procedure Planned Operative Procedure(s): Colonoscopy with possible biopsy and/or polypectomy. Anesthesia History Anesthesia History - accounting administrative assistant: Anesthesia History - accounting administrative assistant Hx Hospitalization No 06/27/20 15:49 Any Problems With Anesthesia Yes: N/V, unsure which 03/11/25 21:24 medicaion Cholinesterase deficiency No 03/11/25 21:24 You/Your Family Experience No 03/11/25 21:24 fever (hyperthermia) with Relationship Recent Exposure to Contagious No 03/11/25 21:24 Disease Does patient have nerve No 03/11/25 21:24 stimulator Patient instructed to have No 03/11/25 21:24 device shut off --Does patient have Pacemaker No 03/12/25 14:56 or ICD? When Was Last Pacemaker Check QUESTION #4 FULL TEXT: You/Your Family Experience fever (hyperthermia) with Anesthesia Last Oral Intake Last Oral intake: Last Oral Intake NPO since 23:30 03/12/25 14:56 Meds taken in AM with sips of No 03/12/25 14:56 water? Meds patient instructed to take am of surgery PONV PONV - accounting administrative assistant: PONV - accounting administrative assistant Female HX of Motion Sickness HX of N/V After Surgery Non-Smoker Duration of Surgery greater than 60 minutes Number of Risk Factors PONV Score Height & Weight Height & Weight: Anesthesia: Height & Weight Height 5 ft 7 in 03/11/25 21:29 Weight: 82.6 kg 03/11/25 21:29 Body Mass Index (BMI) 28.5 03/12/25 14:56 Respiratory Assessment Respiratory Assessment - accounting administrative assistant: Respiratory Tract Infection Hx - accounting administrative assistant Hx Respiratory Tract Infection No 03/11/25 21:24 STOP Sleep Apnea STOP Sleep Apnea - accounting administrative assistant: STOP Sleep Apnea - accounting administrative assistant Hx Hypertension Yes 03/10/25 20:18 Hx Sleep Apnea No 03/10/25 20:18 CPAP BIPAP Do you snore loudly (louder No 03/10/25 20:18 than talking or can be heard Do you often feel tired/ No 03/10/25 20:18 fatigued/ sleepy during daytime? Has anyone observed you stop No 03/10/25 20:18 breathing during sleep? STOP Results Negative 03/10/25 20:18 QUESTION #5 FULL TEXT : Do you snore loudly (louder than talking or can be heard through closeddoors)? Tobacco Use History Tobacco Use History - accounting administrative assistant: Tobacco Use History - accounting administrative assistant Tobacco Use Non-smoker 11/08/24 17:59 Smoking Status Never smoker 03/10/25 20:18 Hx Tobacco Use No 03/10/25 20:18 Years Smoking Packs Smoked per Day Smoking Cessation Date was within the last 15 years Hx Smoking Cessation Date Hx Smoking Cessation No 03/10/25 20:18 Counseling Hematologic Medial History Hematologic Hx - accounting administrative assistant: Hematologic Medical Hx - academic services professional Hx of Blood Transfusion Yes 03/10/25 20:18 Hx of Transfusion in last 3 No 03/10/25 20:18 Months Date of Last Transfusion (if within last 3 months) Ever experience any problems No 03/10/25 20:18 with transfusion(s)? Specify any problems Hx of Preganancy in last 3 N/A 03/10/25 20:18 Months Nurse Filling Out Transfusion ALOWDEN 03/10/25 20:18 & Questions: Date: 03/10/25 03/10/25 20:18 Time: 20:28 03/10/25 20:18 Patient unable to answer at this time (ie. confused, unrespo /Reproduction History /Reproductive History - accounting administrative assistant: /Reproductive Hx- accounting administrative assistant Hx Now No 03/11/25 21:24 Gestational Age (in weeks): EDC: Hx Hx Para Hx Section SAB No 03/11/25 21:24 Active Medications Active Medications: Current Medications Generic Name Dose Route Start Last Admin Trade Name Freq PRN Reason Stop Dose Admin Acetaminophen 650 mg 03/10/25 20:18 03/11/25 21:15 Acetaminophen 325 Mg Tablet PO 650 mg Q6H PRN PRN Administration Pain 1-10 Or Fever>100.7 Albuterol Sulfate 2.5 mg 03/10/25 20:58 Albuterol 2.5 Mg/3 Ml Vial.Neb. INHALATION Q4H PRN PRN Sob &/Or Wheezing Albuterol Sulfate 2.5 mg 03/10/25 21:15 03/12/25 13:30 Albuterol 2.5 Mg/3 Ml Vial.Neb. INHALATION 2.5 mg Q6HWA.RT SHILA Administration Budesonide 0.5 mg 03/10/25 21:15 03/12/25 07:05 Budesonide Respules 0.5 Mg/2 Ml Ampul.Neb. INHALATION 0.5 mg Q12H.RT SHILA Administration Calamine/Phenol 1 applic 03/12/25 10:00 03/12/25 08:35 Menthol/Lanolin/Calamine/Znox 113 Gm Tube TOPICAL 1 dose BID SHILA Administration Protocol Cholecalciferol 125 mcg 03/11/25 10:00 03/12/25 08:36 Cholecalciferol (Vit D3) 125 Mcg Capsule (5,000 Units) PO 125 mcg DAILY SHILA Administration Fenofibrate 145 mg 03/11/25 10:00 03/12/25 08:36 Fenofibrate 145 Mg Tablet PO 145 mg DAILY SHILA Administration Gabapentin 600 mg 03/10/25 22:00 03/12/25 13:15 Gabapentin 600 Mg Tablet PO 600 mg TID SHILA Administration Sodium [place] 250 mls @ 15 mls/hr 03/10/25 20:19 IV .[id number] PRN Saline Flush Sodium [place] 250 mls @ 15 mls/hr 03/10/25 20:19 IV .[id number] PRN Additional IVPB Infusion Lactated Ringer's 1,000 mls @ 15 mls/hr 03/12/25 15:00 03/12/25 15:06 IV 15 mls/hr .Q48H SHILA Administration Latanoprost 1 drp 03/11/25 10:00 03/12/25 08:36 Latanoprost 0.005% 1 Bottle OPHTHALMIC 1 drp DAILY SHILA Administration Melatonin 3 mg 03/10/25 20:18 Melatonin 3 Mg Tablet PO QHS PRN PRN INSOMNIA Ondansetron HCl 4 mg 03/10/25 20:18 Ondansetron 4 Mg/2 Ml Vial IV Q8H PRN PRN NAUSEA/VOMITING Pantoprazole Sodium 40 mg 03/11/25 10:00 03/12/25 08:36 Pantoprazole Sodium 40 Mg Tablet PO 40 mg DAILY SHILA Administration Sodium Chloride 10 - 40 ml 03/10/25 20:19 03/11/25 14:59 0.9% Saline Lock 10 Ml Syringe IV 10 ml UD PRN Administration SALINE FLUSH Tamsulosin HCl 0.4 mg 03/10/25 22:00 03/11/25 21:16 Tamsulosin Hcl 0.4 Mg Capsule PO 0.4 mg QHS SHILA Administration PFSH Medical History PAD (peripheral artery disease) [...] inhalation Q 4H PRN Sob &/Or 07/05/14 03/10/25 History aerosol inhaler Wheezing ramipril 10 mg capsule 10 mg PO DAILY BP 07/05/14 0 03/10/25 History pantoprazole 40 mg tablet,delayed 40 mg PO DAILY gerd 08/21/14 11/08/24 History release cholecalciferol (vitamin D3) 25 5,000 unit PO TID Supp lement 11/23/14 03/10/25 History mcg (1,000 unit) tablet tamsulosin 0.4 mg capsule 0.4 mg PO QHS Prostate 11/2303/09/25 20:40 History budesonide-formoterol HFA 160 2 puff inhalation BID Br eathing 06/28/18 03/10/25 08:39 History mcg-4.5 mcg/actuation aerosol inhaler fenofibrate 160 mg tablet 160 mg PO DAILY cholesterol 04/10/19 03/10/25 History albuterol sulfate 2.5 mg/3 mL 2.5 mg continuous nebuli zation Q4H 11/08/24 Unknown History (0.083 %) solution for nebulization PRN wheezing gabapentin 600 mg tablet 600 mg PO TID neuropathy 03/10/25 02:40 History latanoprost 0.005 % eye drops 1 drp ophthalmic (eye) D AILY 11/08/24 03/10/25 History glaucoma Allergy/AdvReac Type Severity Reaction Status Date / Time cerivastatin sodium (From Allergy Severe Other Verified 03/10/25 15:48 Baycol) gemfibrozil (From Lopid) AdvReac Other Verified 03/10/25 15:48 meperidine (From Demerol) AdvReac Other Verified 03/10/25 15:48 Surgical History Total knee replacement status History of colonoscopy (~03/2019) History of esophagogastroduodenoscopy (EGD) (~03/2019) History of back surgery History of detached retina repair Status post vasectomy History of cholecystectomy History of left knee replacement History of back surgery Social History household members: none Smoking Status: Never smoker Review of Systems (Anesthesia) ROS Narrative System reviewed and no additional complaints, except as documented. Physical Exam Resp Auscultation: wheezes expiratory wheezes (Will plan to give DuoNeb nebulizer treatment.) 03/12/25 1528 caren FWOLER> Date _ Erlin Vences MD Cosigner Signature: Date CC: ~ Signed [facility]08-26-2025 Discharge summary Author Jaspal Prasad [facility] Note Date/Time March 12, 2025 1: 25pm [facility] Medical Records Department [address] [place] [address] Instructions for Home/Discharge Instructions 03/12/25 1321 MR#: [id number] Acct: [id number] Name: DEVONTEPACO Josefina Rep #:[id number] : 1935 89 From: Jaspal quevedo MD PCP: Dr. Clarice Murillo MD Status:AD M IN Discharge Instructions DC O2, CPAP, BIPAP needs Home O2 Discharge instructions: No Dressing / Incision Discharge Activity: Return to Normal Activity Dressing / Incision Call your doctor if you observe: Fever of 101 or Higher, Shortness of breath, Dizziness, Fainting spells, Swelling in the ankles, Chest pain and Increased palpitations (irregular heartbeat) Follow Up Care Test Results: Test results from this visit will be discussed in further detail at your follow- up appointment, if applicable. Discharge Plan Admission Admit Date/Time: 03/10/25 19:22 Attending Provider: Jaspal Prasad Primary Care Provider: Clarice Murillo Consulting Providers: Miller Vides; Riky Li; Jf Mack; Alessia Samuels; Samaria Carlin; Lauren Webber Instructions Additional Instructions / Restrictions: Follow-up with your PCP in 3 to 5 days to monitor your hemoglobin, as we discussed if you develop lightheadedness or dizziness while having bright red blood per rectum come to the hospital otherwise call your PCP to monitor your hemoglobin if you have intermittent episodes of bleeding to determine if and when you need to be evaluated as diverticular bleeding can be oftentimes self-limited. Discharge Orders/Prescriptions Prescriptions: Continued albuterol sulfate 1 INHALER inhaler 2 puff inhalation Q4H PRN (Reason: Sob &/Or Wheezing) ramipril 10 MG capsule 10 mg PO DAILY Patient Comments: BLOOD PRESSURE pantoprazole 40 MG tablet 40 mg PO DAILY Patient Comments: ACID REFLUX tamsulosin 0.4 MG capsule 0.4 mg PO QHS Patient Comments: PROSTATE cholecalciferol (vitamin D3) 1,000 UNIT tablet 5,000 unit PO TID budesonide-formoterol 1 INHALER inhaler 2 puff inhalation BID fenofibrate 160 MG tablet 160 mg PO DAILY gabapentin 600 mg tablet 600 mg PO TID latanoprost 0.005 % drops 1 drp ophthalmic (eye) DAILY albuterol sulfate 2.5 mg /3 mL (0.083 %) solution for nebulization 2.5 mg continuous nebulization Q4H PRN (Reason: wheezing) Patient Comments: PT HAS NOT USED YET Referrals / Follow Up: Clarice Murillo MD [Primary Care Provider] - Within 1 Week Jf Mack DO [Med Staff - Active Staff] - Within 1 Month Disposition Disposition (needs filled in before D/C Order can be placed): Home, Self Care 03/12/25 1325<Electronically signed by Jaspal Prasad MD>Jaspal Prasad MD CC: VEGETABLE BUNCHERKeny Samuels; CHRIS Carlin; Dr. Miller Vides DO; Dr. Clarice Murillo MD; Dr. Riky Li MD; OLI Levine; Jf Mack, ~ Signed [facility] Work Phone: 1(617) 361-782408-26-2025 Progress note Author Jaspal Prasad [facility] Note Date/Time March 12, 2025 11 :37am [facility] Medical Records Department [address] [place] [address] Progress Note - Hospitalist 03/12/25 1134 MR#: [id number] Acct: [id number] Name: PACO WHITNEY Rep #:[id number] : 1935 89 From: Jaspal quevedo MD PCP: Dr. Clarice Murillo MD Status:AD M IN Location: [place] [address] Subjective Subjective Currently n.p.o. for possible endoscopy today. Hemoglobin is 12.8 so clearly what ever bleeding he has is not significant Objective Data Objective Data Vital Signs: Vital Signs Temp Pulse Resp BP Pulse Ox O2 Del Method 97.8 F 63 20 H 107/60 90 Room Air 03/12/25 06:20 03/12/25 07:05 03/12/25 07:05 03/12/25 06:20 03/12/25 07:05 03/12/25 07:05 Oxygen Delivery Method Room Air Weight: 182 lb 1.629 oz Body Mass Index (BMI) 28.5 Intake & Output: Intake and Output for Last 24 Hours 03/11/25 03/12/25 03/13/25 03:59 03:59 03:59 Intake Total 1100 / 1100 0 / 0 Balance 1100 / 1100 0 / 0 Lab / Micro Data 03/12/25 04:48 03/12/25 04:48 Labs: Laboratory Results - last 24 hr 03/12/25 04:48: WBC 7.8, RBC 3.94 L, Hgb 12.8 L, Hct 37.2 L, MCV 94.4 H, MCH 32.5 H, MCHC 34.4, RDW Std Deviation 47.9 H, RDW Coeff of Nohemi 13.9, Plt Count 190, MPV 9.3, Immature Gran % (Auto) 0.300, Neut % (Auto) 70.3 H, Lymph % (Auto)16.7 L, [place] % (Auto) 9.7, Eos % (Auto) 2.2, Baso % (Auto) 0.8, Absolute Neuts (auto) 5.5, Absolute Lymphs (auto) 1.31, Nucleated RBC % 0, PT 14.7, INR 1.1, APTT 29.5, Sodium 137, Potassium 4.5, Chloride 104, Carbon Dioxide 24.7, Anion Gap 8, BUN 22 H, Creatinine 0.98, Estim Creat Clear Calc 54.61, Est GFR (MDRD) Non-Af 74, BUN/Creatinine Ratio 22.0 H, Glucose 102 H, Calcium 9.8, Total Bilirubin 0.84, Direct Bilirubin 0.42 H, AST 29, ALT 19, Alkaline Phosphatase 80, Total Protein 5.7 L, Albumin 3.4, Globulin 2.3 Micro: Microbiology 03/10/25 08:12 Stool Stool Occult Blood (LEXI) - Final Occult Blood Positive Physical Exam Narrative General: Alert, Oriented x3, Cooperative, No apparent distress HEENT: Atraumatic, PERRLA, EOMI, Normocephalic Oral: Moist Mucosa Neck: Supple, No JVD Lungs: Diminished, Normal air movement, No rhonchi, No wheeze, No rales Cardiovascular: Regular rate, Regular Rhythm, Normal S1, Normal S2, No murmurs Abdomen: Soft, Non Tender, Non-Distended, No Hepato-splenomegaly Extremities: No edema, Capillary Refill Less than 3 Seconds Skin: No rashes, No breakdown Musculoskeletal: No Tenderness to Palpation of Joints or Extremities Neurological: No focal neurological deficits, Motor Exam 5/5 strength throughout, Sensory exam intact to light touch and pain Psych/Mental Status: Normal Affect, Appropriate Assessment & Plan Assessment/Plan (1) Lower GI bleed: PLAN: Plan 1. Bright red blood per rectum suspected secondary to recurrent diverticular bleed ? Admit under inpatient status to PCU. GI consulted. ? 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 Hemoglobin 12.9 on admit today he is 12.8 ? Will keep n.p.o. at midnight with plan for possible lower scope today though given the stability if he does not get it today we will plan for discharge and outpatient follow-up ? He did have a mild elevation in his creatinine, nothing that indicated an SANTOS and it is back to baseline today 2. Essential HTN/HLD ? Blood pressures are stable ? Will hold his ramipril as he is currently n.p.o. ? Continue with fenofibrate 3. GERD ? Stable ? Continue with PPI 4. Neuropathy ? Stable ? Continue with gabapentin 5. COPD ? Not in exacerbation ? Continue with his home inhalers 6. Glaucoma ? Stable ? 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 Continue with Flomax DVT: SCDs Charges/Coding Visit Charges Inpatient E&M: 58195 Subs Hosp L2 03/12/25 1137 <Electronically signed by Jaspal Prasad MD> Cosigner Signature (if applicable): CC: ~ Signed [facility] Work Phone: 1(671) 127-650608-26-2025 Consult note [facility] Medical Records Department [address] [place] [address] Counseling Note - Pharmacy 03/12/25 1336 MR#: [id number] Acct: [id number] Name: PACO WHITNEY Rep #:[id number] : 1935 89 From: Gabrielle Burr PCP: Dr. Clarice Murillo MD Status:AD M IN Y Location: [place] [address] Pharmacy ID Med Reconciliation Pharmacy Service has performed discharge medication reconciliation for this patient. The patient's discharge medication list was reviewed for discrepancies and discrepancies were resolved. Medications at Discharge Home Medications albuterol sulfate 90 mcg/actuation aerosol inhaler 2 puff inhalation Q4H PRN Sob&/Or Wheezing 07/05/14 ramipril 10 mg capsule 10 mg PO DAILY BP 07/05/14 pantoprazole 40 mg tablet,delayed release 40 mg PO DAILY gerd 08/21/14 cholecalciferol (vitamin D3) 25 mcg (1,000 unit) tablet 5,000 unit PO TID Supplement 11/23/14 tamsulosin 0.4 mg capsule 0.4 mg PO QHS Prostate 11/23/14 budesonide-formoterol HFA 160 mcg-4.5 mcg/actuation aerosol inhaler 2 puff inhalation BID [id number]/12/18 fenofibrate 160 mg tablet 160 mg PO DAILY cholesterol 04/10/19 albuterol sulfate 2.5 mg/3 mL (0.083 %) solution for nebulization 2.5 mg continuous nebulization Q4H PRN wheezing 11/08/24 gabapentin 600 mg tablet 600 mg PO TID neuropathy 11/08/24 latanoprost 0.005 % eye drops 1 drp ophthalmic (eye) DAILY glaucoma 11/08/24 03/12/25 1336 Date _ Gabrielle Solisigner Signature (if applicable): Date CC: ~ Signed [facility]08-26-2025 Discharge summary [facility] Medical Records Department [address] [place] [address] Instructions for Home/Discharge Instructions 03/12/25 1321 MR#: [id number] Acct: [id number] Name: PACO WHITNEY Rep #:[id number] : 1935 89 From: Jaspal quevedo MD PCP: Dr. Clarice Murillo MD Status:AD M IN Discharge Instructions DC O2, CPAP, BIPAP needs Home O2 Discharge instructions: No Dressing / Incision Discharge Activity: Return to Normal Activity Dressing / Incision Call your doctor if you observe: Fever of 101 or Higher, Shortness of breath, Dizziness, Fainting spells, Swelling in the ankles, Chest pain and Increased palpitations (irregular heartbeat) Follow Up Care Test Results: Test results from this visit will be discussed in further detail at your follow- up appointment, if applicable. Discharge Plan Admission Admit Date/Time: 03/10/25 19:22 Attending Provider: Jaspal Prasad Primary Care Provider: Clarice Murillo Consulting Providers: Miller Vides; Riky Li; Jf Mack; Alessia Samuels; Samaria Carlin; Lauren Webber Instructions Additional Instructions / Restrictions: Follow-up with your PCP in 3 to 5 days to monitor your hemoglobin, as we discussed if you develop lightheadedness or dizziness while having bright red blood per rectum come to the hospital otherwise call your PCP to monitor your hemoglobin if you have intermittent episodes of bleeding to determine if and when you need to be evaluated as diverticular bleeding can be oftentimes self-limited. Discharge Orders/Prescriptions Prescriptions: Continued albuterol sulfate 1 INHALER inhaler 2 puff inhalation Q4H PRN (Reason: Sob &/Or Wheezing) ramipril 10 MG capsule 10 mg PO DAILY Patient Comments: BLOOD PRESSURE pantoprazole 40 MG tablet 40 mg PO DAILY Patient Comments: ACID REFLUX tamsulosin 0.4 MG capsule 0.4 mg PO QHS Patient Comments: PROSTATE cholecalciferol (vitamin D3) 1,000 UNIT tablet 5,000 unit PO TID budesonide-formoterol 1 INHALER inhaler 2 puff inhalation BID fenofibrate 160 MG tablet 160 mg PO DAILY gabapentin 600 mg tablet 600 mg PO TID latanoprost 0.005 % drops 1 drp ophthalmic (eye) DAILY albuterol sulfate 2.5 mg /3 mL (0.083 %) solution for nebulization 2.5 mg continuous nebulization Q4H PRN (Reason: wheezing) Patient Comments: PT HAS NOT USED YET Referrals / Follow Up: Clarice Murillo MD [Primary Care Provider] - Within 1 Week Jf Mack DO [Med Staff - Active Staff] - Within 1 Month Disposition Disposition (needs filled in before D/C Order can be placed): Home, Self Care 03/12/25 1325Jaspal Prasad MD CC: VEGETABLE BUNCHERKeny Samuels; VEGETABLE BUNCHER-C Samaria Carlin; Dr. Miller Vides DO; Dr. Clarice Murillo MD; Dr. Riky Li MD; OLI Levine; Jf Mack DO ~ Signed [facility]08-26-2025 Progress note [facility] Medical Records Department [address] [place] [address] Progress Note - Hospitalist 03/12/25 1134 MR#: [id number] Acct: [id number] Name: PACO WHITNEY Rep #:[id number] : 1935 89 From: Jaspal quevedo MD PCP: Dr. Clarice Murillo MD Status:AD M IN Location: [place] [address] 1 Subjective Subjective Currently n.p.o. for possible endoscopy today. Hemoglobin is 12.8 so clearly what ever bleeding he has is not significant Objective Data Objective Data Vital Signs: Vital Signs Temp Pulse Resp BP Pulse Ox O2 Del Method 97.8 F 63 20 H 107/60 90 Room Air 03/12/25 06:20 03/12/25 07:05 03/12/25 07:05 03/12/25 06:20 03/12/25 07:05 03/12/25 07:05 Oxygen Delivery Method Room Air Weight: 182 lb 1.629 oz Body Mass Index (BMI) 28.5 Intake & Output: Intake and Output for Last 24 Hours 03/11/25 03/12/25 03/13/25 03:59 03:59 03:59 Intake Total 1100 / 1100 0 / 0 Balance 1100 / 1100 0 / 0 Lab / Micro Data 03/12/25 04:48 03/12/25 04:48 Labs: Laboratory Results - last 24 hr 03/12/25 04:48: WBC 7.8, RBC 3.94 L, Hgb 12.8 L, Hct 37.2 L, MCV 94.4 H, MCH 32.5 H, MCHC 34.4, RDWStd Deviation 47.9 H, RDW Coeff of Nohemi 13.9, Plt Count 190, MPV 9.3, Immature Gran % (Auto) 0.300, Neut % (Auto) 70.3 H, Lymph % (Auto)16.7 L, [place] % (Auto) 9.7, Eos % (Auto) 2.2, Baso % (Auto) 0.8, Absolute Neuts (auto) 5.5, Absolute Lymphs (auto) 1.31, Nucleated RBC % 0, PT 14.7, INR 1.1, APTT 29.5, Sodium 137, Potassium 4.5, Chloride 104, Carbon Dioxide 24.7, Anion Gap 8, BUN 22 H, Creatinine 0.98, Estim Creat Clear Calc 54.61, Est GFR (MDRD) Non-Af 74, BUN/Creatinine Ratio 22.0 H, Glucose 102 H, Calcium 9.8, Total Bilirubin 0.84, Direct Bilirubin 0.42 H, AST 29, ALT 19, Alkaline Phosphatase 80, Total Protein 5.7 L, Albumin 3.4, Globulin 2.3 Micro: Microbiology 03/10/25 08:12 Stool Stool Occult Blood (LEXI) - Final Occult Blood Positive Physical Exam Narrative General: Alert, Oriented x3, Cooperative, No apparent distress HEENT: Atraumatic, PERRLA, EOMI, Normocephalic Oral: Moist Mucosa Neck: Supple, No JVD Lungs: Diminished, Normal air movement, No rhonchi, No wheeze, No rales Cardiovascular: Regular rate, Regular Rhythm, Normal S1, Normal S2, No murmurs Abdomen: Soft, Non Tender, Non-Distended, No Hepato-splenomegaly Extremities: No edema, Capillary Refill Less than 3 Seconds Skin: No rashes, No breakdown Musculoskeletal: No Tenderness to Palpation of Joints or Extremities Neurological: No focal neurological deficits, Motor Exam 5/5 strength throughout, Sensory exam intact to light touch and pain Psych/Mental Status: Normal Affect, Appropriate Assessment & Plan Assessment/Plan (1) Lower GI bleed: PLAN: Plan 1. Bright red blood per rectum suspected secondary to recurrent diverticular bleed ? Admit under inpatient status to PCU. GI consulted. ? 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 Hemoglobin 12.9 on admit today he is 12.8 ? Will keep n.p.o. at midnight with plan for possible lower scope today though given the stability if he does not get it today we will plan for discharge and outpatient follow-up ? He did have a mild elevation in his creatinine, nothing that indicated an SANTOS and it is back to baseline today 2. Essential HTN/HLD ? Blood pressures are stable ? Will hold his ramipril as he is currently n.p.o. ? Continue with fenofibrate 3. GERD ? Stable ? Continue with PPI 4. Neuropathy ? Stable ? Continue with gabapentin 5. COPD ? Not in exacerbation ? Continue with his home inhalers 6. Glaucoma ? Stable ? 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 Continue with Flomax DVT: SCDs Charges/Coding Visit Charges Inpatient E&M: 68188 Subs Hosp L2 03/12/25 2427 Cosigner Signature (if applicable): CC: ~ Signed [id number] Hospital Discharge instructionsAdditional Instructions Follow-up with your PCP in 3 to 5 days to monitor your hemoglobin, as we discussed if you develop lightheadedness or dizziness while having bright red blood per rectum come to the hospital otherwise call your PCP to monitor your hemoglobin if you have intermittent episodes of bleeding to determine if and when you need to be evaluated as diverticular bleeding can be oftentimes self-limited.[facility] Work Phone: 1([phone]) 130-559408-25-2025 Progress note Author Jaspal Prasad [facility] Note Date/Time March 11, 2025 12 :30pm [facility] Medical Records Department [address] [place] [address] Progress Note - Hospitalist 03/11/25 1225 MR#: [id number] Acct: [id number] Name: PACO WHITNEY Rep #:[id number] : 1935 89 From: Jaspal quevedo MD PCP: Dr. Clarice Murillo MD Status:AD M IN Location: [place] [address]- Subjective Subjective No issues overnight, awaiting possible endoscopy Objective Data Objective Data Vital Signs: Vital Signs Temp Pulse Resp BP Pulse Ox O2 Del Method 97.8 F 70 16 123/62 H 95 Room Air 03/11/25 08:00 03/11/25 08:00 03/11/25 08:00 03/11/25 08:00 03/11/25 08:00 03/11/25 09:31 Oxygen Delivery Method Room Air Weight: 182 lb 1.629 oz Body Mass Index (BMI) 28.5 Intake & Output: Intake and Output for Last 24 Hours 03/10/25 03/11/25 03/12/25 03:59 03:59 03:59 Intake Total 1100 / 1100 0 / 0 Balance 1100 / 1100 0 / 0 Lab / Micro Data 03/11/25 03:39 03/11/25 03:39 Labs: Laboratory Results - last 24 hr 03/10/25 15:58: WBC 8.6, RBC 4.00 L, Hgb 12.9 L, Hct 37.7 L, MCV 94.3 H, MCH 32.3 H, MCHC 34.2, RDW Std Deviation 48.0 H, RDW Coeff of Nohemi 14.1, Plt Count 237, MPV 9.4, Immature Gran % (Auto) 0.300, Neut % (Auto) 73.3 H, Lymph % (Auto)17.5 L, [place] % (Auto) 7.2, Eos % (Auto) 0.9, Baso % (Auto) 0.8, Absolute Neuts (auto) 6.3, Absolute Lymphs (auto) 1.51, Nucleated RBC % 0, Sodium 141, Potassium 4.6, Chloride 108, Carbon Dioxide 20.3 L, Anion Gap 13, BUN 33 H, Creatinine 1.33 H, Estim Creat Clear Calc 42.96 L, Est GFR (MDRD) Non-Af 52 L, BUN/Creatinine Ratio 25.0 H, Glucose 127 H, Calcium 9.6, Total Bilirubin 0.45, AST 30, ALT 21, Alkaline Phosphatase 86, Total Protein 5.9, Albumin 3.5, Globulin 2.4, Albumin/Globulin Ratio 1.4, Lipase 71 03/10/25 18:18: Urine Color Straw, Urine Clarity Clear, Urine pH 7.0, Ur Specific Horton 1.010, Urine Protein 30 H, Urine Glucose (UA) Normal, Urine Ketones Negative, Urine Occult Blood Negative, Urine Nitrite Negative, Urine Bilirubin Negative, Urine Urobilinogen 1 H, Ur Leukocyte Esterase Negative, Urine RBC 0-5 SEEN, Urine WBC 0-5 SEEN, Ur Squamous Epith Cells 0-5 SEEN, Urine Bacteria 0 SEEN, Urine Mucus 0 SEEN 03/10/25 22:19: WBC 9.2, RBC 3.82 L, Hgb 12.1 L, Hct 36.7 L, MCV 96.1 H, MCH 31.7, MCHC 33.0, RDW Std Deviation 49.6 H, RDW Coeff of Nohemi 14.0, Plt Count 201,MPV 9.3 03/11/25 03:39: WBC 7.6, RBC 3.56 L, Hgb 11.5 L, Hct 33.7 L, MCV 94.7 H, MCH 32.3 H, MCHC 34.1, RDW Std Deviation 49.3 H, RDW Coeff of Nohemi 14.0, Plt Count 174, MPV 9.2, Sodium 140, Potassium 4.1, Chloride 107, Carbon Dioxide 22.4, Anion Gap 10, BUN 30 H, Creatinine 1.02, Estim Creat Clear Calc 52.47, Est GFR (MDRD) Non-Af 71, BUN/Creatinine Ratio 28.9 H, Glucose 88, Calcium 9.0 Radiography Diagnostic Testing: Radiology Impression Abdomen/Pelvis CT 03/10/25 16:05 IMPRESSION: No obvious GI extravasation of contrast. No source of bleeding identified. Diverticulosis without identified diverticulitis. 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 Bilateral parapelvic cysts and cortical cystic lesions in the kidneys Reading Location: [facility] Physical Exam Narrative General: Alert, Oriented x3, Cooperative, No apparent distress HEENT: Atraumatic, PERRLA, EOMI, Normocephalic Oral: Moist Mucosa Neck: Supple, No JVD Lungs: Diminished, Normal air movement, No rhonchi, No wheeze, No rales Cardiovascular: Regular rate, Regular Rhythm, Normal S1, Normal S2, No murmurs Abdomen: Soft, Non Tender, Non-Distended, No Hepato-splenomegaly Extremities: No edema, Capillary Refill Less than 3 Seconds Skin: No rashes, No breakdown Musculoskeletal: No Tenderness to Palpation of Joints or Extremities Neurological: No focal neurological deficits, Motor Exam 5/5 strength throughout, Sensory exam intact to light touch and pain Psych/Mental Status: Normal Affect, Appropriate Assessment & Plan Assessment/Plan (1) Lower GI bleed: PLAN: Plan 1. Bright red blood per rectum suspected secondary to recurrent diverticular bleed ? Admit under inpatient status to PCU. GI consulted. ? 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 Hemoglobin 12.9 on admit today he is 11.5 ? Will keep n.p.o. at midnight with plan for possible lower scope tomorrow if needed ? He did have a mild elevation in his creatinine, nothing that indicated an SANTOS and it is back to baseline today 2. Essential HTN/HLD ? Blood pressures are stable ? Will hold his ramipril as he is currently n.p.o. ? Continue with fenofibrate 3. GERD ? Stable ? Continue with PPI 4. Neuropathy ? Stable ? Continue with gabapentin 5. COPD ? Not in exacerbation ? Continue with his home inhalers 6. Glaucoma ? Stable ? 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 Continue with Flomax DVT: SCDs Charges/Coding Visit Charges Inpatient E&M: 88244 Subs Hosp L2 03/11/25 1230 <Electronically signed by Jaspal Prasad MD> Cosigner Signature (if applicable): CC: ~ Signed [facility] Work Phone: 1(394) 242-538808-25-2025 Progress note [facility] Medical Records Department [address] [place] [address] Progress Note - Hospitalist 03/11/25 1225 MR#: [id number] Acct: [id number] Name: PACO WHITNEY Rep #:[id number] : 1935 89 From: Jaspal quevedo MD PCP: Dr. Clarice Murillo MD Status:AD M IN Location: [place] [address] Subjective Subjective No issues overnight, awaiting possible endoscopy Objective Data Objective Data Vital Signs: Vital Signs Temp Pulse Resp BP Pulse Ox O2 Del Method 97.8 F 70 16 123/62 H 95 Room Air 03/11/25 08:00 03/11/25 08:00 03/11/25 08:00 03/11/25 08:00 03/11/25 08:00 03/11/25 09:31 Oxygen Delivery Method Room Air Weight: 182 lb 1.629 oz Body Mass Index (BMI) 28.5 Intake & Output: Intake and Output for Last 24 Hours 03/10/25 03/11/25 03/12/25 03:59 03:59 03:59 Intake Total 1100 / 1100 0 / 0 Balance 1100 / 1100 0 / 0 Lab / Micro Data 03/11/25 03:39 03/11/25 03:39 Labs: Laboratory Results - last 24 hr 03/10/25 15:58: WBC 8.6, RBC 4.00 L, Hgb 12.9 L, Hct 37.7 L, MCV 94.3 H, MCH 32.3 H, MCHC 34.2, RDWStd Deviation 48.0 H, RDW Coeff of Nohemi 14.1, Plt Count 237, MPV 9.4, Immature Gran % (Auto) 0.300, Neut % (Auto) 73.3 H, Lymph % (Auto)17.5 L, [place] % (Auto) 7.2, Eos % (Auto) 0.9, Baso % (Auto) 0.8, Absolute Neuts (auto) 6.3, Absolute Lymphs (auto) 1.51, Nucleated RBC % 0, Sodium 141, Potassium 4.6, Chloride 108, Carbon Dioxide 20.3 L, Anion Gap 13, BUN 33 H, Creatinine 1.33 H, Estim Creat Clear Calc 42.96 L, Est GFR (MDRD) Non-Af 52 L, BUN/Creatinine Ratio 25.0 H, Glucose 127 H, Calcium 9.6, Total Bilirubin 0.45, AST 30, ALT 21, Alkaline Phosphatase 86, Total Protein 5.9, Albumin 3.5, Globuli n 2.4, Albumin/Globulin Ratio 1.4, Lipase 71 03/10/25 18:18: Urine Color Straw, Urine Clarity Clear, Urine pH 7.0, Ur Specific Horton 1.010, Urine Protein 30 H, Urine Glucose (UA) Normal, Urine Ketones Negative, Urine Occult Blood Negative, Urine Nitrite Negative, Urine Bilirubin Negative, Urine Urobilinogen 1 H, Ur Leukocyte Esterase Negative, Urine RBC 0-5 SEEN, Urine WBC 0-5 SEEN, Ur Squamous Epith Cells 0-5 SEEN, Urine Bacteria 0 SEEN,Urine Mucus 0 SEEN 03/10/25 22:19: WBC 9.2, RBC 3.82 L, Hgb 12.1 L, Hct 36.7 L, MCV 96.1 H, MCH 31.7, MCHC 33.0, RDW Std Deviation 49.6 H, RDW Coeff of Nohemi 14.0, Plt Count 201,MPV 9.3 03/11/25 03:39: WBC 7.6, RBC 3.56 L, Hgb 11.5 L, Hct 33.7 L, MCV 94.7 H, MCH 32.3 H, MCHC 34.1, RDWStd Deviation 49.3 H, RDW Coeff of Nohemi 14.0, Plt Count 174, MPV 9.2, Sodium 140, Potassium 4.1, Chloride 107, Carbon Dioxide 22.4, Anion Gap 10, BUN 30 H, Creatinine 1.02, Estim Creat Clear Calc 52.47, Est GFR (MDRD) Non-Af 71, BUN/Creatinine Ratio 28.9 H, Glucose 88, Calcium 9.0 Radiography Diagnostic Testing: Radiology Impression Abdomen/Pelvis CT 03/10/25 16:05 IMPRESSION: No obvious GI extravasation of contrast. No source of bleeding identified. Diverticulosis without identified diverticulitis. 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 Bilateral parapelvic cysts and cortical cystic lesions in the kidneys Reading Location: [facility] Physical Exam Narrative General: Alert, Oriented x3, Cooperative, No apparent distress HEENT: Atraumatic, PERRLA, EOMI, Normocephalic Oral: Moist Mucosa Neck: Supple, No JVD Lungs: Diminished, Normal air movement, No rhonchi, No wheeze, No rales Cardiovascular: Regular rate, Regular Rhythm, Normal S1, Normal S2, No murmurs Abdomen: Soft, Non Tender, Non-Distended, No Hepato-splenomegaly Extremities: No edema, Capillary Refill Less than 3 Seconds Skin: No rashes, No breakdown Musculoskeletal: No Tenderness to Palpation of Joints or Extremities Neurological: No focal neurological deficits, Motor Exam 5/5 strength throughout, Sensory exam intact to light touch and pain Psych/Mental Status: Normal Affect, Appropriate Assessment & Plan Assessment/Plan (1) Lower GI bleed: PLAN: Plan 1. Bright red blood per rectum suspected secondary to recurrent diverticular bleed ? Admit under inpatient status to PCU. GI consulted. ? 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 Hemoglobin 12.9 on admit today he is 11.5 ? Will keep n.p.o. at midnight with plan for possible lower scope tomorrow if needed ? He did have a mild elevation in his creatinine, nothing that indicated an SANTOS and it is back to baseline today 2. Essential HTN/HLD ? Blood pressures are stable ? Will hold his ramipril as he is currently n.p.o. ? Continue with fenofibrate 3. GERD ? Stable ? Continue with PPI 4. Neuropathy ? Stable ? Continue with gabapentin 5. COPD ? Not in exacerbation ? Continue with his home inhalers 6. Glaucoma ? Stable ? 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 Continue with Flomax DVT: SCDs Charges/Coding Visit Charges Inpatient E&M: 64409 Subs Hosp L2 03/11/25 1230 Cosigner Signature (if applicable): CC: ~ Signed [facility]08-25-2025 Discharge summary Author Arturo Naranjo [facility] Note Date/Time March 10, 2025 10 :50pm [facility] Medical Records Department [address] [place] [address] Emergency Department Summary 03/10/25 MR#: [id number] Acct: [id number] Name: PACO WHITNEY Rep #:[id number] : 1935 89 From: Arturo Naranjo MD PCP: Dr. Clarice Murillo MD Status:AD M IN Location: [place] [address] HPI HPI - GI History of Present Illness Chief Complaint: GI Bleed Narrative Narrative: 89-year-old male past medical history of remote diverticular bleed when he was on Plavix presents with lower GI bleeding that began today. He had a family related history that his currently hospitalized. He has been going back and forth and running himself ragged. This afternoon, he felt as if he had to have a bowel movement and he had a bloody stool. He states he passed dark red blood as well as clots. He returned home and had a second bloody bowel movement. He endorses fatigue and tiredness as he has been stressed recently. States he has diffuse abdominal pain as well. He currently does not take any blood thinners, no Plavix, but he does take a baby aspirin. No exacerbating or alleviating factors. [facility] Medical History PAD (peripheral artery disease) Renal [...] inhalation Q 4H PRN Sob &/Or 07/05/14 03/10/25 History aerosol inhaler Wheezing ramipril 10 mg capsule 10 mg PO DAILY BP 07/05/14 0 03/10/25 History pantoprazole 40 mg tablet,delayed 40 mg PO DAILY gerd 08/21/14 11/08/24 History release cholecalciferol (vitamin D3) 25 5,000 unit PO TID Supp lement 11/23/14 03/10/25 History mcg (1,000 unit) tablet tamsulosin 0.4 mg capsule 0.4 mg PO QHS Prostate 11/2303/09/25 20:40 History budesonide-formoterol HFA 160 2 puff inhalation BID Br eathing 06/28/18 03/10/25 08:39 History mcg-4.5 mcg/actuation aerosol inhaler fenofibrate 160 mg tablet 160 mg PO DAILY cholesterol 04/10/19 03/10/25 History albuterol sulfate 2.5 mg/3 mL 2.5 mg continuous nebuli zation Q4H 11/08/24 Unknown History (0.083 %) solution for nebulization PRN wheezing gabapentin 600 mg tablet 600 mg PO TID neuropathy 03/10/25 02:40 History latanoprost 0.005 % eye drops 1 drp ophthalmic (eye) D AILY 11/08/24 03/10/25 History glaucoma Allergy/AdvReac Type Severity Reaction Status Date / Time cerivastatin sodium (From Allergy Severe Other Verified 03/10/25 15:48 Baycol) gemfibrozil (From Lopid) AdvReac Other Verified 03/10/25 15:48 meperidine (From Demerol) AdvReac Other Verified 03/10/25 15:48 Surgical History Total knee replacement status History of colonoscopy (~03/2019) History of esophagogastroduodenoscopy (EGD) (~03/2019) History of back surgery History of detached retina repair Status post vasectomy History of cholecystectomy History of left knee replacement History of back surgery Social History (Updated 03/10/25 @ 16:21 by April Gardner) household members: none Smoking Status: Never smoker ROS ROS ED ROS Narrative Review of systems positive for dark blood in stool as well as passage of clots. No fevers or chills. No nausea or vomiting. Positive diffuse abdominal pain. History of AAA repair. Does not take blood thinners. No exacerbating or alleviating factors. EXAM Physical Exam Narrative Exam Narrative: Afebrile. Vital signs noted. Nontoxic-appearing. Cardiovascular examination reveals a regular rate and rhythm. Lungs are clear to auscultation bilaterally. The abdomen is soft with diffuse tenderness to palpation. Positive ventral hernia. Reducible. Positive bowel sounds. Neurological examination nonfocal, nonlateralizing. Const Vital Signs: 03/10/25 15:48 03/10/25 16:48 03/10/25 18:00 Temperature 98.5 F Temperature Source Oral Pulse Rate 84 59 L 64 Respiratory Rate 18 23 H 26 H Blood Pressure 95/64 140/57 H Blood Pressure Mean 74 84 Pulse Ox 97 98 96 Oxygen Delivery Method Room Air Room Air 03/10/25 19:00 Temperature Temperature Source Pulse Rate 62 Respiratory Rate 14 Blood Pressure 118/61 Blood Pressure Mean 80 Pulse Ox 96 Oxygen Delivery Method Room Air MDM MDM MDM Narrative Medical decision making narrative: I reviewed the patient's prior records. In 2019 he did have suspected diverticular bleed on Plavix. He had been scoped by Dr. Smyth as an inpatient. Differential diagnosis includes but not limited to nonspecific abdominal pain versus diverticular bleed versus AV malformation versus diverticulitis versus hemorrhoidal bleed. I have lower suspicion for aortoenteric fistula. Currently having any bleeding. He may have dehydration as well. Comprehensive workup was pursued. I do feel CT imaging is indicated. I reviewed the patient's laboratory work and he has a normal white count of 8.6 with hemoglobin slightly anemic at 12.9, hematocrit 37.7, platelet count normal at 237. BUN is elevated 33 with creatinine 1.33, just above normal/his baselineof 1.1. LFTs are grossly unremarkable. Lipase normal at 71. I do not think hehas a pancreatitis. Urinalysis negative for infection with 0-5 WBCs. I do not feel he needs antibiotics for a UTI. I reviewed the radiology report of the CT of the abdomen and pelvis and while he has diverticulosis there is no evidence of diverticulitis or acute process. I was going to perform a fecal occult blood test, however the patient had a bloody bowel movement here in the emergency department. Given his age, and continued GI bleeding, while I suspect a diverticular bleed, I do feel that he merits at least observation overnight. Patient will be discussed with the hospitalist. I discussed patient with Dr. Vides. Disposition is admit in stable condition. History & Record Review Discussion w/independent historian: Patient and Family Additional record(s) reviewed:: Prior ED visit (2019 had diverticular hemorrhage) Lab Data Attestation: I reviewed the patient's lab results. Labs: Laboratory Results - last 24 hr 03/10/25 03/10/25 15:58 18:18 WBC 8.6 RBC 4.00 L Hgb 12.9 L Hct 37.7 L MCV 94.3 H MCH 32.3 H MCHC 34.2 RDW Std Deviation 48.0 H RDW Coeff of Nohemi 14.1 Plt Count 237 MPV 9.4 Immature Gran % (Auto) 0.300 Neut % (Auto) 73.3 H Lymph % (Auto) 17.5 L [place] % (Auto) 7.2 Eos % (Auto) 0.9 Baso % (Auto) 0.8 Absolute Neuts (auto) 6.3 Absolute Lymphs (auto) 1.51 Nucleated RBC % 0 Sodium 141 Potassium 4.6 [place] 108 Carbon Dioxide 20.3 L Anion Gap 13 BUN 33 H Creatinine 1.33 H Estim Creat Clear Calc 42.96 L Est GFR (MDRD) Non-Af 52 L BUN/Creatinine Ratio 25.0 H Glucose 127 H Calcium 9.6 Total Bilirubin 0.45 AST 30 ALT 21 Alkaline Phosphatase 86 Total Protein 5.9 Albumin 3.5 Globulin 2.4 Albumin/Globulin Ratio 1.4 Lipase 71 Urine Color Straw Urine Clarity Clear Urine pH 7.0 Ur Specific Horton 1.010 Urine Protein 30 H Urine Glucose (UA) Normal Urine Ketones Negative Urine Occult Blood Negative Urine Nitrite Negative Urine Bilirubin Negative Urine Urobilinogen 1 H Ur Leukocyte Esterase Negative Urine RBC 0-5 SEEN Urine WBC 0-5 SEEN Ur Squamous Epith Cells 0-5 SEEN Urine Bacteria 0 SEEN Urine Mucus 0 SEEN Radiography Diagnostic Testing: Clinical Impression(s) from Imaging Studies Abdomen/Pelvis CT 03/10/25 16:05 IMPRESSION: No obvious GI extravasation of contrast. No source of bleeding identified. Diverticulosis without identified diverticulitis. 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 Bilateral parapelvic cysts and cortical cystic lesions in the kidneys Reading Location: [facility] Management Discussion w/another healthcare provider: Hospitalist Discharge Plan Dx/Rx/DC Orders Clinical Impression: Lower GI bleed, History of gastrointestinal bleeding, Elevated serum creatinine, Rectal bleed Disposition Disposition: Acute Care Hospital [facility] Discharge Date/Time: 03/10/25 20:10 What to do if you have Problems For any increased pain, shortness of breath, bleeding, nausea or vomiting, chestpain, or any unexpected problems, contact your Primary Care Provider. Call [facility] ([phone]) or report to the closest Emergency Room. Call 911 if necessary. 03/10/252249 <Electronically signed by Arturo Naranjo MD> Cosigner Signature (if applicable): CC: Dr. Clarice Murillo MD ~ Signed [facility] Work Phone: [phone] Discharge summary [facility] Medical Records Department [address] [place] [address] Emergency Department Summary 03/10/25 MR#: [id number] Acct: [id number] Name: PACO WHITNEY Rep #:[id number] : 1935 89 From: Arturo Naranjo MD PCP: Dr. Clarice Murillo MD Status:AD M IN Location: [place] [id number]- [id number] HPI HPI - GI History of Present Illness Chief Complaint: GI Bleed Narrative Narrative: 89-year-old male past medical history of remote diverticular bleed when he was on Plavix presents with lower GI bleeding that began today. He had a family related history that his currently hospitalized. He has been going back and forth and running himself ragged. This afternoon, he felt as ifhe had to have a bowel movement and he had a bloody stool. He states he passed dark red blood as well as clots. He returned home and had a second bloody bowel movement. He endorses fatigue and tiredness as he has been stressed recently. States he has diffuse abdominal pain as well. He currently does not take any blood thinners, no Plavix, but he does take a baby aspirin. No exacerbating or alleviating factors. [facility] Medical History PAD (peripheral artery disease) Renal [...] inhalation Q 4H PRN Sob &/Or 07/05/14 03/10/25 History aerosol inhaler Wheezing ramipril 10 mg capsule 10 mg PO DAILY BP 07/05/14 0 03/10/25 History pantoprazole 40 mg tablet,delayed 40 mg PO DAILY gerd 08/21/14 11/08/24 History release cholecalciferol (vitamin D3) 25 5,000 unit PO TID Supp lement 11/23/14 03/10/25 History mcg (1,000 unit) tablet tamsulosin 0.4 mg capsule 0.4 mg PO QHS Prostate 11/2303/09/25 20:40 History budesonide-formoterol HFA 160 2 puff inhalation BID Br eathing 06/28/18 03/10/25 08:39 History mcg-4.5 mcg/actuation aerosol inhaler fenofibrate 160 mg tablet 160 mg PO DAILY cholesterol 04/10/19 03/10/25 History albuterol sulfate 2.5 mg/3 mL 2.5 mg continuous nebuli zation Q4H 11/08/24 Unknown History (0.083 %) solution for nebulization PRN wheezing gabapentin 600 mg tablet 600 mg PO TID neuropathy 03/10/25 02:40 History latanoprost 0.005 % eye drops 1 drp ophthalmic (eye) D AILY 11/08/24 03/10/25 History glaucoma Allergy/AdvReac Type Severity Reaction Status Date / Time cerivastatin sodium (From Allergy Severe Other Verified 03/10/25 15:48 Baycol) gemfibrozil (From Lopid) AdvReac Other Verified 03/10/25 15:48 meperidine (From Demerol) AdvReac Other Verified 03/10/25 15:48 Surgical History Total knee replacement status History of colonoscopy (~03/2019) History of esophagogastroduodenoscopy (EGD) (~03/2019) History of back surgery History of detached retina repair Status post vasectomy History of cholecystectomy History of left knee replacement History of back surgery Social History (Updated 03/10/25 @ 16:21 by April Gardner) household members: none Smoking Status: Never smoker ROS ROS ED ROS Narrative Review of systems positive for dark blood in stool as well as passage of clots. No fevers or chills. No nausea or vomiting. Positive diffuse abdominal pain. History of AAA repair. Does not take bloodthinners. No exacerbating or alleviating factors. EXAM Physical Exam Narrative Exam Narrative: Afebrile. Vital signs noted. Nontoxic-appearing. Cardiovascular examination reveals a regular rate and rhythm. Lungs are clear to auscultation bilaterally. The abdomen is soft with diffuse tendernessto palpation. Positive ventral hernia. Reducible. Positive bowel sounds. Neurological examination nonfocal, nonlateralizing. Const Vital Signs: 03/10/25 15:48 03/10/25 16:48 03/10/25 18:00 Temperature 98.5 F Temperature Source Oral Pulse Rate 84 59 L 64 Respiratory Rate 18 23 H 26 H Blood Pressure 95/64 140/57 H Blood Pressure Mean 74 84 Pulse Ox 97 98 96 Oxygen Delivery Method Room Air Room Air 03/10/25 19:00 Temperature Temperature Source Pulse Rate 62 Respiratory Rate 14 Blood Pressure 118/61 Blood Pressure Mean 80 Pulse Ox 96 Oxygen Delivery Method Room Air MDM MDM MDM Narrative Medical decision making narrative: I reviewed the patient's prior records. In 2019 he did have suspected diverticular bleed on Plavix.He had been scoped by Dr. Smyth as an inpatient. Differential diagnosis includes but not limited to nonspecific abdominal pain versus diverticular bleed versus AV malformation versus diverticulitis versus hemorrhoidal bleed. I have lower suspicion for aortoenteric fistula. Currently having anybleeding. He may have dehydration as well. Comprehensive workup was pursued. I do feel CT imaging is indicated. I reviewed the patient's laboratory work and he has a normal white count of 8.6 with hemoglobin slightly anemic at 12.9, hematocrit 37.7, platelet count normal at 237. BUN is elevated 33 with creatinine 1.33, just above normal/his baselineof 1.1. LFTs are grossly unremarkable. Lipase normal at 71. I do not think hehas a pancreatitis. Urinalysis negative for infection with 0-5 WBCs. I do not feel he needs antibiotics for a UTI. I reviewed the radiology report of the CT of the abdomen and pelvis and while he has diverticulosis there is no evidence of diverticulitis or acute process. I was going to perform a fecal occult blood test, however the patient had a bloody bowel movement here in the emergency department. Given his age, and continued GI bleeding, while I suspect a diverticular bleed, I do feel that he merits at least observation overnight. Patient will be discussed withthe hospitalist. I discussed patient with Dr. Vides. Disposition is admit in stable condition. History & Record Review Discussion w/independent historian: Patient and Family Additional record(s) reviewed:: Prior ED visit (2019 had diverticular hemorrhage) Lab Data Attestation: I reviewed the patient's lab results. Labs: Laboratory Results - last 24 hr 03/10/25 03/10/25 15:58 18:18 WBC 8.6 RBC 4.00 L Hgb 12.9 L Hct 37.7 L MCV 94.3 H MCH 32.3 H MCHC 34.2 RDW Std Deviation 48.0 H RDW Coeff of Nohemi 14.1 Plt Count 237 MPV 9.4 Immature Gran % (Auto) 0.300 Neut % (Auto) 73.3 H Lymph % (Auto) 17.5 L [place] % (Auto) 7.2 Eos % (Auto) 0.9 Baso % (Auto) 0.8 Absolute Neuts (auto) 6.3 Absolute Lymphs (auto) 1.51 Nucleated RBC % 0 Sodium 141 Potassium 4.6 Chloride 108 Carbon Dioxide 20.3 L Anion Gap 13 BUN 33 H Creatinine 1.33 H Estim Creat Clear Calc 42.96 L Est GFR (MDRD) Non-Af 52 L BUN/Creatinine Ratio 25.0 H Glucose 127 H Calcium 9.6 Total Bilirubin 0.45 AST 30 ALT 21 Alkaline Phosphatase 86 Total Protein 5.9 Albumin 3.5 Globulin 2.4 Albumin/Globulin Ratio 1.4 Lipase 71 Urine Color Straw Urine Clarity Clear Urine pH 7.0 Ur Specific Horton 1.010 Urine Protein 30 H Urine Glucose (UA) Normal Urine Ketones Negative Urine Occult Blood Negative Urine Nitrite Negative Urine Bilirubin Negative Urine Urobilinogen 1 H Ur Leukocyte Esterase Negative Urine RBC 0-5 SEEN Urine WBC 0-5 SEEN Ur Squamous Epith Cells 0-5 SEEN Urine Bacteria 0 SEEN Urine Mucus 0 SEEN Radiography Diagnostic Testing: Clinical Impression(s) from Imaging Studies Abdomen/Pelvis CT 03/10/25 16:05 IMPRESSION: No obvious GI extravasation of contrast. No source of bleeding identified. Diverticulosis without identified diverticulitis. 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 Bilateral parapelvic cysts and cortical cystic lesions in the kidneys Reading Location: [facility] Management Discussion w/another healthcare provider: Hospitalist Discharge Plan Dx/Rx/DC Orders Clinical Impression: Lower GI bleed, History of gastrointestinal bleeding, Elevated serum creatinine, Rectal bleed Disposition Disposition: Acute Care Hospital [facility] Discharge Date/Time: 03/10/25 20:10 What to do if you have Problems For any increased pain, shortness of breath, bleeding, nausea or vomiting, chestpain, or any unexpected problems, contact your Primary Care Provider. Call [facility] ([phone]) or report tothe closest Emergency Room. Call 911 if necessary. 03/10/25 2250 Cosigner Signature (if applicable): CC: Dr. Clarice Murillo MD ~ Signed [facility]08-24-2025 History and physical note Author Miller [facility] Note Date/Time March 10, 2025 8: 50pm [facility] Medical Records Department [address] [place] [address] H&P Exam - Hospitalist 03/10/251920 MR#: [id number] Acct: [id number] Name: WHITNEYPACO Josefina Rep #:[id number] : 1935 89 From: Miller garcia DO PCP: Dr. Clarice Murillo MD Status:AD M IN Location: [facility] [id number]- 1 HPI - General General Date of Admission: 03/10/25 Date of Service: 03/10/25 Chief Complaint: Lower GI bleed HPI Narrative PACO WHITNEY, is a 89 M who presented to [facility] ED on 03/10/2025 with lower GI bleed. Medical history significant for diverticulosis with diverticular bleeds. Last diverticular bleed was back in 2019. He presented with bright red blood per rectum with significant clots. Colonoscopy showed diverticulosis in the entire examined colon with blood in the sigmoid colon, no active signs of bleeding. Patient notes that his was hospitalized here this week and is now at [place], and he has been on his normal routine and frequently going back and forth from home to the hospital [facility]. He has also been eating out with more meals over that timeframe. This afternoon while he was out of the house, he fell again to have an urgent bowel movement and went to the bathroom and had a bloody stool. He then went home and had another bloody bowel movement, so he came in for further evaluation. In the ED he had a third bright red stool. He was normotensive andhemodynamically stable on room air. Hemoglobin 12.9, baseline 12-13. BMP with creatinine 1.33, baseline 1.1-1.2. CT abdomen pelvis showed diverticulosis withno source of bleeding identified. Given the multiple episodes of BRBPR and history of diverticular hemorrhage, hospitalist was contacted for admission. I saw the patient at bedside in the ED, family members were present. Patient was mildly fatigued appearing but otherwise sitting back comfortably in bed, conversing normally, in no acute distress. Patient was alert and oriented x 3 and is mentally sharp for his age. Had mild left lower quadrant abdominal pain but otherwise denies any other pain or discomfort. No other acute concerns currently. Will be admitted for further management. [facility] Medical History PAD (peripheral artery disease) Renal [...] inhalation Q 4H PRN Sob &/Or 07/05/14 03/10/25 History aerosol inhaler Wheezing ramipril 10 mg capsule 10 mg PO DAILY BP 07/05/14 0 03/10/25 History pantoprazole 40 mg tablet,delayed 40 mg PO DAILY gerd 08/21/14 11/08/24 History release cholecalciferol (vitamin D3) 25 5,000 unit PO TID Supp lement 11/23/14 03/10/25 History mcg (1,000 unit) tablet tamsulosin 0.4 mg capsule 0.4 mg PO QHS Prostate 11/2303/09/25 20:40 History budesonide-formoterol HFA 160 2 puff inhalation BID Br eathing 06/28/18 03/10/25 08:39 History mcg-4.5 mcg/actuation aerosol inhaler fenofibrate 160 mg tablet 160 mg PO DAILY cholesterol 04/10/19 03/10/25 History albuterol sulfate 2.5 mg/3 mL 2.5 mg continuous nebuli zation Q4H 11/08/24 Unknown History (0.083 %) solution for nebulization PRN wheezing gabapentin 600 mg tablet 600 mg PO TID neuropathy 03/10/25 02:40 History latanoprost 0.005 % eye drops 1 drp ophthalmic (eye) D AILY 11/08/24 03/10/25 History glaucoma Allergy/AdvReac Type Severity Reaction Status Date / Time cerivastatin sodium (From Allergy Severe Other Verified 03/10/25 15:48 Baycol) gemfibrozil (From Lopid) AdvReac Other Verified 03/10/25 15:48 meperidine (From Demerol) AdvReac Other Verified 03/10/25 15:48 Surgical History Total knee replacement status History of colonoscopy (~03/2019) History of esophagogastroduodenoscopy (EGD) (~03/2019) History of back surgery History of detached retina repair Status post vasectomy History of cholecystectomy History of left knee replacement History of back surgery Social History (Updated 03/10/25 @ 16:21 by April Gardner) household members: none Smoking Status: Never smoker ROS Constitutional Constitutional: Reports fatigue; Denies chills, fever(s) or weakness Cardiovascular Cardiovascular: Denies chest pain Respiratory/Chest Respiratory/Chest: Denies shortness of breath at rest Gastrointestinal Gastrointestinal: Reports abdominal pain and hematochezia; Denies constipation, diarrhea, nausea or vomiting Musculoskeletal Musculoskeletal: Denies arthralgias or myalgias Neurologic Neurologic: Denies dizziness, focal weakness, headache(s), numbness or tingling Vital Signs Vital Signs Vital Signs: 03/10/25 15:48 03/10/25 16:48 03/10/25 18:00 Temperature 98.5 F Temperature Source Oral Pulse Rate 84 59 L 64 Respiratory Rate 18 23 H 26 H Blood Pressure 95/64 140/57 H Blood Pressure Mean 74 84 Pulse Ox 97 98 96 Oxygen Delivery Method Room Air Room Air 03/10/25 19:00 Temperature Temperature Source Pulse Rate 62 Respiratory Rate 14 Blood Pressure 118/61 Blood Pressure Mean 80 Pulse Ox 96 Oxygen Delivery Method Room Air Weight Weight: 88 kg Body Mass Index (BMI) 28.6 Physical Exam Const alert, oriented x3, no apparent distress and average body habitus Constitutional Narrative: Pleasant elderly male, mentally sharp for his age, mildly fatigued appearing butotherwise sitting back comfortably in bed, conversing normally, in no acute distress. General Appearance: cooperative and comfortable HEENT normocephalic, head/scalp atraumatic, hearing grossly normal bilaterally, nasal mucous membranes and turbinates normal and moist oral mucous membranes Eyes PERRL, EOMs intact bilaterally and conjunctivae normal Neck full ROM Chest inspection of chest normal Resp normal respiratory effort, normal air movement, no use of accessory muscles and clear to auscultation bilaterally Cardio regular rate, regular rhythm, no murmurs and peripheral pulses 2+ throughout GI GI Narrative: Mild left lower quadrant tenderness palpation. Abdomen otherwise soft and nondistended. Back/Spine normal ROM Extremity normal to inspection, full ROM and no pedal edema Skin no rashes or lesions noted Psych mental status grossly normal Results Lab / Micro Data 03/10/25 15:58 03/10/25 15:58 Labs: Laboratory Results - last 24 hr 03/10/25 15:58: WBC 8.6, RBC 4.00 L, Hgb 12.9 L, Hct 37.7 L, MCV 94.3 H, MCH 32.3 H, MCHC 34.2, RDW Std Deviation 48.0 H, RDW Coeff of Nohemi 14.1, Plt Count 237, MPV 9.4, Immature Gran % (Auto) 0.300, Neut % (Auto) 73.3 H, Lymph % (Auto)17.5 L, [place] % (Auto) 7.2, Eos % (Auto) 0.9, Baso % (Auto) 0.8, Absolute Neuts (auto) 6.3, Absolute Lymphs (auto) 1.51, Nucleated RBC % 0, Sodium 141, Potassium 4.6, [place] 108, Carbon Dioxide 20.3 L, Anion Gap 13, BUN 33 H, Creatinine 1.33 H, Estim Creat Clear Calc 42.96 L, Est GFR (MDRD) Non-Af 52 L, BUN/Creatinine Ratio 25.0 H, Glucose 127 H, Calcium 9.6, Total Bilirubin 0.45, AST 30, ALT 21, Alkaline Phosphatase 86, Total Protein 5.9, Albumin 3.5, Globulin 2.4, Albumin/Globulin Ratio 1.4, Lipase 71 03/10/25 18:18: Urine Color Straw, Urine Clarity Clear, Urine pH 7.0, Ur Specific Horton 1.010, Urine Protein 30 H, Urine Glucose (UA) Normal, Urine Ketones Negative, Urine Occult Blood Negative, Urine Nitrite Negative, Urine Bilirubin Negative, Urine Urobilinogen 1 H, Ur Leukocyte Esterase Negative, Urine RBC 0-5 SEEN, Urine WBC 0-5 SEEN, Ur Squamous Epith Cells 0-5 SEEN, Urine Bacteria 0 SEEN, Urine Mucus 0 SEEN Imaging Radiology Impression Abdomen/Pelvis CT 03/10/25 16:05 IMPRESSION: No obvious GI extravasation of contrast. No source of bleeding identified. Diverticulosis without identified diverticulitis. 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 Bilateral parapelvic cysts and cortical cystic lesions in the kidneys [facility] Assessment & Plan Assessment/Plan (1) Lower GI bleed: PLAN: Plan Patient is an 89-year-old male who presented to [facility] ED on03/10/2025 with lower GI bleed. 1. Bright red blood per rectum suspected secondary to recurrent diverticular bleed ? Admit under inpatient status to PCU. GI consulted. Presented with multiple episodes of bright bloody stools. 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 Hemoglobin 12.9 on admit, stable at baseline but given his multiple episodes of bloody stools, suspect hemoglobin will begin to downtrend. Will keep n.p.o. at midnight with plan for possible lower scope tomorrow if needed. Follow-up a.m. CBC. 2. Mildly elevated creatinine ? Creatinine 1.33 on admit, baseline 1.1-1.2. Given 1 L of IV fluids in the ED for suspected dehydration in setting of multiple bowel movements. Follow-up a.m. BMP and monitor urine output. Chronic medical conditions: ? COPD: Stable on room air, not in acute exacerbation. Continue home inhalers. ? GERD: Continue home PPI. ? Hypertension/hyperlipidemia: Holding home FEDERICO inhibitor. Continue home fenofibrate. ? Neuropathy: Continue home gabapentin. DVT prophylaxis: SCDs CODE STATUS: Full code, verified Expected disposition: Home, TBD Total clinical time spent by myself addressing the patient's medical issues, reviewing all the data, and collaborating with patient's care team: 55 minutes. Charges/Coding Visit Charges Inpatient E&M: 96462 Init Hosp L2 03/10/252049 <Electronically signed by Miller Vides DO> Cosigner Signature (if applicable): CC: Dr. Miller Vides DO; Dr. Clarice Murillo MD~ Signed [facility] Work Phone: [phone]) 529-287608-24-2025 History and physical note [facility] Medical Records Department [address] [place] [address] H&P Exam - Hospitalist 03/10/251920 MR#: [id number] Acct: [id number] Name: PACO WHITNEY Rep #:[id number] : 1935 89 From: Miller garcia DO PCP: Dr. Clarice Murillo MD Status:AD M IN Location: [facility] [id number]- 1 HPI - General General Date of Admission: 03/10/25 Date of Service: 03/10/25 Chief Complaint: Lower GI bleed HPI Narrative PACO WHITNEY, is a 89 M who presented to [facility] ED on 03/10/2025 with lower GI bleed. Medical history significant for diverticulosis with diverticular bleeds. Last diverticular bleed was back in 2019. He presented with bright red blood per rectum with significant clots. Colonoscopy showed diverticulosis in the entire examined colon with blood in the sigmoid colon, no active signs of bleeding. Patient notes that his was hospitalized here this week and is now at [place],and he has been on his normal routine and frequently going back and forth from home to the [facility]. He has also been eating out with more meals over that timeframe. This afternoon while he was out of the house, he fell again to have an urgent bowel movement and went to the bathroomand had a bloody stool. He then went home and had another bloody bowel movement, so he came in for further evaluation. In the ED he had a third bright red stool. He was normotensive andhemodynamically stable on room air. Hemoglobin 12.9, baseline 12-13. BMP with creatinine 1.33, baseline 1.1-1.2. CT abdomen pelvis showed diverticulosis withno source of bleeding identified. Given the multiple episodes of BRBPR and history of diverticular hemorrhage, hospitalist was contacted for admission. I sawthe patient at bedside in the ED, family members were present. Patient was mildly fatigued appearing but otherwise sitting back comfortably in bed, conversing normally, in no acute distress. Patient was alert and oriented x 3 and is mentally sharp for his age. Had mild left lower quadrant abdominalpain but otherwise denies any other pain or discomfort. No other acute concerns currently. Will be admitted for further management. [facility] Medical History PAD (peripheral artery disease) Renal [...] inhalation Q 4H PRN Sob &/Or 07/05/14 03/10/25 History aerosol inhaler Wheezing ramipril 10 mg capsule 10 mg PO DAILY BP 07/05/14 0 03/10/25 History pantoprazole 40 mg tablet,delayed 40 mg PO DAILY gerd 08/21/14 11/08/24 History release cholecalciferol (vitamin D3) 25 5,000 unit PO TID Supp lement 11/23/14 03/10/25 History mcg (1,000 unit) tablet tamsulosin 0.4 mg capsule 0.4 mg PO QHS Prostate 11/2303/09/25 20:40 History budesonide-formoterol HFA 160 2 puff inhalation BID Br eathing 06/28/18 03/10/25 08:39 History mcg-4.5 mcg/actuation aerosol inhaler fenofibrate 160 mg tablet 160 mg PO DAILY cholesterol 04/10/19 03/10/25 History albuterol sulfate 2.5 mg/3 mL 2.5 mg continuous nebuli zation Q4H 11/08/24 Unknown History (0.083 %) solution for nebulization PRN wheezing gabapentin 600 mg tablet 600 mg PO TID neuropathy 03/10/25 02:40 History latanoprost 0.005 % eye drops 1 drp ophthalmic (eye) D AILY 11/08/24 03/10/25 History glaucoma Allergy/AdvReac Type Severity Reaction Status Date / Time cerivastatin sodium (From Allergy Severe Other Verified 03/10/25 15:48 Baycol) gemfibrozil (From Lopid) AdvReac Other Verified 03/10/25 15:48 meperidine (From Demerol) AdvReac Other Verified 03/10/25 15:48 Surgical History Total knee replacement status History of colonoscopy (~03/2019) History of esophagogastroduodenoscopy (EGD) (~03/2019) History of back surgery History of detached retina repair Status post vasectomy History of cholecystectomy History of left knee replacement History of back surgery Social History (Updated 03/10/25 @ 16:21 by April Gardner) household members: none Smoking Status: Never smoker ROS Constitutional Constitutional: Reports fatigue; Denies chills, fever(s) or weakness Cardiovascular Cardiovascular: Denies chest pain Respiratory/Chest Respiratory/Chest: Denies shortness of breath at rest Gastrointestinal Gastrointestinal: Reports abdominal pain and hematochezia; Denies constipation, diarrhea, nausea orvomiting Musculoskeletal Musculoskeletal: Denies arthralgias or myalgias Neurologic Neurologic: Denies dizziness, focal weakness, headache(s), numbness or tingling Vital Signs Vital Signs Vital Signs: 03/10/25 15:48 03/10/25 16:48 03/10/25 18:00 Temperature 98.5 F Temperature Source Oral Pulse Rate 84 59 L 64 Respiratory Rate 18 23 H 26 H Blood Pressure 95/64 140/57 H Blood Pressure Mean 74 84 Pulse Ox 97 98 96 Oxygen Delivery Method Room Air Room Air 03/10/25 19:00 Temperature Temperature Source Pulse Rate 62 Respiratory Rate 14 Blood Pressure 118/61 Blood Pressure Mean 80 Pulse Ox 96 Oxygen Delivery Method Room Air Weight Weight: 88 kg Body Mass Index (BMI) 28.6 Physical Exam Const alert, oriented x3, no apparent distress and average body habitus Constitutional Narrative: Pleasant elderly male, mentally sharp for his age, mildly fatigued appearing butotherwise sitting back comfortably in bed, conversing normally, in no acute distress. General Appearance: cooperative and comfortable HEENT normocephalic, head/scalp atraumatic, hearing grossly normal bilaterally, nasal mucous membranes and turbinates normal and moist oral mucous membranes Eyes PERRL, EOMs intact bilaterally and conjunctivae normal Neck full ROM Chest inspection of chest normal Resp normal respiratory effort, normal air movement, no use of accessory muscles and clear to auscultation bilaterally Cardio regular rate, regular rhythm, no murmurs and peripheral pulses 2+ throughout GI GI Narrative: Mild left lower quadrant tenderness palpation. Abdomen otherwise soft and nondistended. Back/Spine normal ROM Extremity normal to inspection, full ROM and no pedal edema Skin no rashes or lesions noted Psych mental status grossly normal Results Lab / Micro Data 03/10/25 15:58 03/10/25 15:58 Labs: Laboratory Results - last 24 hr 03/10/25 15:58: WBC 8.6, RBC 4.00 L, Hgb 12.9 L, Hct 37.7 L, MCV 94.3 H, MCH 32.3 H, MCHC 34.2, RDWStd Deviation 48.0 H, RDW Coeff of Nohemi 14.1, Plt Count 237, MPV 9.4, Immature Gran % (Auto) 0.300, Neut % (Auto) 73.3 H, Lymph % (Auto)17.5 L, [place]cy % (Auto) 7.2, Eos % (Auto) 0.9, Baso % (Auto) 0.8, Absolute Neuts (auto) 6.3, Absolute Lymphs (auto) 1.51, Nucleated RBC % 0, Sodium 141, Potassium 4.6, Chloride 108, Carbon Dioxide 20.3 L, Anion Gap 13, BUN 33 H, Creatinine 1.33 H, Estim Creat Clear Calc 42.96 L, Est GFR (MDRD) Non-Af 52 L, BUN/Creatinine Ratio 25.0 H, Glucose 127 H, Calcium 9.6, Total Bilirubin 0.45, AST 30, ALT 21, Alkaline Phosphatase 86, Total Protein 5.9, Albumin 3.5, Globuli n 2.4, Albumin/Globulin Ratio 1.4, Lipase 71 03/10/25 18:18: Urine Color Straw, Urine Clarity Clear, Urine pH 7.0, Ur Specific Horton 1.010, Urine Protein 30 H, Urine Glucose (UA) Normal, Urine Ketones Negative, Urine Occult Blood Negative, Urine Nitrite Negative, Urine Bilirubin Negative, Urine Urobilinogen 1 H, Ur Leukocyte Esterase Negative, Urine RBC 0-5 SEEN, Urine WBC 0-5 SEEN, Ur Squamous Epith Cells 0-5 SEEN, Urine Bacteria 0 SEEN,Urine Mucus 0 SEEN Imaging Radiology Impression Abdomen/Pelvis CT 03/10/25 16:05 IMPRESSION: No obvious GI extravasation of contrast. No source of bleeding identified. Diverticulosis without identified diverticulitis. 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 Bilateral parapelvic cysts and cortical cystic lesions in the kidneys Reading [facility] Assessment & Plan Assessment/Plan (1) Lower GI bleed: PLAN: Plan Patient is an 89-year-old male who presented to [facility] ED on03/10/2025 with lower GI bleed. 1. Bright red blood per rectum suspected secondary to recurrent diverticular bleed ? Admit under inpatient status to PCU. GI consulted. Presented with multiple episodes of bright bloody stools. 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 Hemoglobin 12.9 on admit, stable at baseline but given his multiple episodes of bloody stools, suspect hemoglobin will begin to downtrend. Will keep n.p.o. at midnight with plan for possible lower scope tomorrow if needed. Follow-up a.m. CBC. 2. Mildly elevated creatinine ? Creatinine 1.33 on admit, baseline 1.1-1.2. Given 1 L of IV fluids in the ED for suspected dehydration in setting of multiple bowel movements. Follow-up a.m. BMP and monitor urine output. Chronic medical conditions: ? COPD: Stable on room air, not in acute exacerbation. Continue home inhalers. ? GERD: Continue home PPI. ? Hypertension/hyperlipidemia: Holding home FEDERICO inhibitor. Continue home fenofibrate. ? Neuropathy: Continue home gabapentin. DVT prophylaxis: SCDs CODE STATUS: Full code, verified Expected disposition: Home, TBD Total clinical time spent by myself addressing the patient's medical issues, reviewing all the data, and collaborating with patient's care team: 55 minutes. Charges/Coding Visit Charges Inpatient E&M: 14149 Init Hosp L2 03/10/252049 Cosigner Signature (if applicable): CC: Dr. Miller Vides DO; Dr. Clarice Murillo MD~ Signed [facility]08-24-2025 Radiology Diagnostic study note [facility] Imaging Services [address] [place] [id number] Abdomen/Pelvis W IV Cont ONLY MR#: [id number] Acct: [id number] Name: PACO WHITNEY Rep #: [id number] : 1935 M 89 From: Pet er Peer DO PCP: Dr. Clarice Murillo MD Status: RE G ER Study:Abdomen/Pelvis W IV Cont ONLY Date of E xam: 03/10/25 Exam# [id number] Ordering Dr: Arturo Naranjo MD PROCEDURE: ABDOMEN/PELVIS W IV CONT ONLY 03/10/2025 REASON FOR EXAM: ABDOMINAL PAIN TECHNIQUE: ABDOMEN/PELVIS W IV CONT ONLY Coronal and Sagittal reconstruction series were provided. CONTRAST: Isovue 370 VOLUME: 75 mL One or more dose reduction techniques were used (e.g., Automated exposure control, adjustment of the mA and/or kV according to patient size, use of iterative reconstruction technique. RADIATION DOSE SUMMARY: CTDlvol: 6.65 and 22.63 mGy DLP: 1102.96 mGycm FINDINGS: Lung bases: A 3 cm right lower lobe, medial segment solid mass is identified possibly stable since the prior chest radiograph of June 29, 2018. Previous CT on June 28, 2018 showed a 2 point a cm solidmass at this location Liver: Normal Gallbladder: not detected. No cholecystectomy clips identified. Spleen: Unremarkable Pancreas: Normal Adrenals: Normal Kidneys: Bilateral cysts. Bilateral parapelvic cysts. Bladder: Normal. Reproductive Organs: Unremarkable. Bowel: Diverticulosis of transverse and descending colon sigmoid colon Appendix: Normal appendix identified. Lymph nodes: No adenopathy. Vasculature: Aortoiliac aneurysms treated with aortoiliac metallic mesh stent graft. 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 No aggressivebone lesion. CT/Abdomen/Pelvis W IV Cont ONLY IMPRESSION: No obvious GI extravasation of contrast. No source of bleeding identified. Diverticulosis without identified diverticulitis. 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 Bilateral parapelvic cysts and cortical cystic lesions in the kidneys Reading [facility] CC: Dr. Arturo Naranjo MD; Dr. Clarice Murillo MD ~ Press Tender Star Signal: Signed [facility]08-08-2025 NoteHNO ID: [id number] Author: YNES SOUZA PA-C Service: ? Author Type: Physician Artificial Inseminator Type: Progress Notes Filed: 02/22/2025 13:42 Note Text: Ynes Souza PA-C Department of Orthopaedics Orthopaedics [address] [facility] [address] Dept: [phone] Dept February 22, 2025 CHIEF COMPLAINT: Pain [...] (M17.11) - Chronic right knee OA, likely [id number]. - Ordered new X-rays of the right [...] these instructions. Informed Consent Consent Obtained: Verbal [place] Protocol A moment to CARE was completed. [...] and visible. Medications requ (more content not included)...[facility] 02-22-2025 NoteHNO ID: [id number] Author: MARY WAGNER MA Service: ? Author Type: Annual Campaign Manager Type: Progress Notes Filed: 02/22/2025 13:42 Note Text: AMB ROOMING INTAKE FLOWSHEET DATA Pain Pain Level: 2 (as high as 10) Pain Location: (bilateral shoulders) Description: Aching, Sharp, Dull Duration Amount of Time: (ongoing) Frequency: Continuous Intervention/Comfort measure: [facility]icationBar[facility]07-25-2025 Telephone encounter Note* Telephone Encounter - Korin Calixto MA - 02/08/2025 2:45 PM EDT Call to pt and notified him of results and recommendations below from Provider. Pt verbalized understanding. Korin Calixto MA [facility]07-25-2025 Miscellaneous Notes* Telephone Encounter - Korin Calixto MA - 02/08/2025 2:45 PM EDT Call to pt and notified him of results and recommendations below from Provider. Pt verbalized understanding. 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 Sid Frank APRN.CNP [facility]07-22-2025 History of Present illness Narrative* Alfonso Portillo RT(R) - 02/05/2025 3:50 PM EDT Radiology Service Progress Note PATIENT NAME: [...] PATIENT PRESENTS WITH AN IMPLANTABLE OR ATTACHED FORMING OPERATOR: No RADIOLOGY DEPARTMENT: General X-ray: Exam(s) Completed: Upper Extremity X- Ray(s): Shoulder, AP / TRUE AP / AXILLARY bilateral PERIPHERAL IV DATA: Not applicable SIGNED BY: MAHAD Santacruz) February 05, 2025 4:04 PM documented in this encounterNorwalk Memorial Hospital07-22-2025 NoteHNO ID: [id number] Author: ALFONSO PORTILLO RT(R) Service: ? Author Type: Block Cutter Type: Progress Notes Filed: 02/05/2025 16:05 Note [...] PATIENT PRESENTS WITH AN IMPLANTABLE OR ATTACHED FORMING OPERATOR: No RADIOLOGY DEPARTMENT: General X-ray: Exam(s) Completed: Upper Extremity X-Ray(s): Shoulder, AP / TRUE AP / AXILLARY bilateral PERIPHERAL IV DATA: Not applicable SIGNED BY: Alfonso Portillo, RT(R) February 05, 2025 4:04 [facility]07-22-2025 History of Present illness Narrative* Clarice Murillo MD - 02/05/2025 3:00 PM EDT Chief Complaint Patient presents with: 6 Month Exam HPI Paco Whitney is a 89 year old male who presents here today for 6 month follow up. Pt recently discharged from [facility] to SNF as pt is not able to care for pt any longer. She is in [facility] due to Stroke with left side [...] W/COLLJ SPEC WHEN PFRMD 09/19/2011 Colonoscopy inpt [facility] ENDOVASCULAR ANEURYSM REPAIR 01/2013 with bi-liac [...] Take 1 tablet by mouth once daily. uzmoslry-qclvudbiv-dhiipahjubyumi (CORTISPORIN) 3.5-10,000-1 mg/mL-unit/mL-% otic suspension Use 4 [...] in no acute distress, well-hydrated, well nourished. andWalker. Lungs: Lungs clear to auscultation. No wheezing, [...] type (HCC) (J43.9) Under the care of machining associate Dr. Luna, with a follow-up appointment scheduled for April 02. Continue current pulmonary management and attend scheduled follow-up with Dr. Luna. 7. Pedal edema (R60.0) Noted swelling in the lower extremities, particularly around the ankles, which reduces overnight. Monitor edema; consider compression stockings if swelling persists or worsens. Follow up in 6 months Recording using [email or web address] software for draft documentation of the visit was discussed with the patient/authorized quality control representative; all questions welcomed and answered. Patient/authorized quality control representative agreed to proceed I agree with the Chief Complaint, ROS, and Past Histories independently gathered by the clinical office support assistant and the remaining scribed note accurately describes [...] PM. Marianne Escobar MA documented in this encounterNorwalk Memorial Hospital07-22-2025 NoteHNO ID: [id number] Author: CLARICE MURILLO MD Service: ? Author Type: Physician Type: Progress Notes Filed: 02/05/2025 15:42 Note Text: Chief Complaint Patient presents with: 6 Month Exam HPI Paco Whitney is a 89 year old male who presents here today for 6 month follow up. Pt recently discharged from [facility] to [facility] as pt is not able to care for pt any longer. She is in [facility] due to Stroke with left side [...] W/COLLJ SPEC WHEN PFRMD 09/19/2011 Colonoscopy inpt [facility] ENDOVASCULAR ANEURYSM REPAIR 01/2013 with bi-liac [...] by mouth three breana (more content not included)...[facility]05-05-2025 Telephone encounter Note* Telephone Encounter - Sid Frank APRN.CNP - 11/19/2024 9:25 AM EDT The following approved medication requests have been transmitted electronically. Requested Prescriptions Pending Prescriptions Disp Refills ramipril (ALTACE) 10 mg capsule 90 capsule 3 Sig: Take 1 capsule by mouth once daily. Sid Frank APRN.CNP [facility]05-05-2025 Miscellaneous Notes* Telephone Encounter - Sid Frank APRN.CNP - 11/19/2024 9:25 AM EDT The following approved medication requests have been transmitted electronically. Requested Prescriptions Pending Prescriptions Disp Refills ramipril (ALTACE) 10 mg capsule 90 capsule 3 Sig: Take 1 capsule by mouth once daily. Sid Frank APRN.CNP * Telephone Encounter - Monet Jaquez - 11/19/2024 8:48 AM EDT Prescription Refill Information The patient [...] 19, 2024 8:50 AM documented in this encounterNorwalk Memorial Hospital05-05-2025 Telephone encounter Note * Telephone Encounter - Monet Jaquez - 11/19/2024 8:48 AM EDT Prescription Refill Information The patient [...] Monet Santiago November 19, 2024 8:50 AM [facility]04-29-2025 Evaluation note* Diagnosis Onset Date Resolution Status Admit Date Swelling of joint of left wrist acut e November 13, 2024 1:38pm Elevated serum creatinine acute March 10, 2025 7:22pm Lower GI bleed acute February 7:22pm Rectal bleed acute March 10, 2025 7:22pm History of gastrointestinal bleeding chronic March 10 7:22pm [facility] Work Phone: 1(649) 666-468204-26-2025 Discharge summary Author Riky Li [facility] Note Date/Time November 10, 2024 9:4 7am [facility] Medical Records Department [address] [place] [address] Instructions for Home/Discharge Instructions 11/10/24 0940 MR#: [id number] Acct: [id number] Name: PACO WHITNEY Rep #:[id number] : 1935 89 From: Riky Evans PCP: [...] me in clinic in 3 days at [facility] on Tuesday, 13 November 2024, Discharge Orders/Prescriptions [...] Staff] - (Follow-up in 3 days at [facility] in clinic) Disposition Disposition (needs filled in before D/C Order can be placed): Home, Self Care 11/10/24 0947<Electronically signed by Riky Li MD>Riky Li MD CC: Dr. Evelyn Doss, DO; Dr. Clarice Murillo MD ~ Signed [facility] Work Phone: 1(712) 415-422904-26-2025 Discharge summary Author Riky Li [facility] Note Date/Time November 10, 2024 10: 34am [facility] Medical Records Department [address] [place] [address] Discharge Summary 11/10/24 0947 MR#: [id number] Acct: [id number] Name: PACO WHITNEY Rep #:[id number] : 1935 89 From: Riky Evans PCP: Dr. Clarice Murillo MD Status:[facility] IN Location: [place] [address] Providers Date of Admission: 11/08/24 Date of [...] % (Auto) 61.9, Lymph % (Auto) 24.1, Montmorency % (Auto) 10.6 H, Eos % (Auto) [...] me in clinic in 3 days at [facility] on Tuesday, 13 November 2024, Discharge Orders/Prescriptions [...] Staff] - (Follow-up in 3 days at [facility] in clinic) Disposition Disposition (needs filled in before D/C Order can be placed): Home, Self Care Charges/Coding Visit Charges Inpatient E&M: 27245 Disch Hosp >30min 11/10/24 1034 <Electronically signed by Riky Li MD> Cosigner Signature (if applicable): CC: Dr. Clarice Murillo MD; Dr. Riky Li MD; Dr. Dennis Rocha MD~ Signed [facility] Work Phone: 1(559) 605-800504-26-2025 Progress note Author Dennis Rocha [facility] Note Date/Time November 10, 2024 9:4 1am [facility] Medical Records Department [address] [place] [address] Progress Note - Surgery 11/10/2438 MR#: [id number] Acct: [id number] Name: PACO WHITNEY Rep #:[id number] : 1935 89 From: Dennis Rocha MD PCP: Dr. Clarice Murillo MD Status:AD M IN Location: NE3 CI913-5 Subjective Subjective Doing well. Reports that pain [...] % (Auto) 61.9, Lymph % (Auto) 24.1, Montmorency % (Auto) 10.6 H, Eos % (Auto) [...] follow-up with me in 3 days at [facility] in clinic. Charges/Coding Visit Charges Inpatient E&M: 26696 Subs Hosp L1 11/10/24 0940 <Electronically signed by Dennis Rocha MD> Cosigner Signature (if applicable): CC: ~ Signed ADDENDUM by Dr. Dennis Rocha MD on 11/10/24 at 0941 Addendum Afebrile with stable vital signs Normal white blood cell count 11/10/24 0941<Electronically signed by Dennis Rocha MD> Cosigner Signature (if applicable): cc: ~* Signed [facility] Work Phone: 1(130) 892-658204-26-2025 Discharge summary [facility] Medical Records Department [address] [place] [address] Discharge Summary 11/10/24 0947 MR#: [id number] Acct: [id number] Name: PACO WHITNEY Rep #:[id number] : 1935 89 From: Riky Evans PCP: Dr. Clarice Murillo MD Status:AD M [place] [facility] [place] HN121-4 Providers Date of Admission: 11/08/24 Date of [...] mcg/actuation aerosol inhaler 2 puff inhalation BID Fnkryymom67/12/18 fenofibrate 160 mg tablet 160 mg PO [...] % (Auto) 61.9, Lymph % (Auto) 24.1, [place]ncy % (Auto) 10.6 H, Eos % (Auto) [...] me in clinic in 3 days at [facility] on Tuesday, 13 November 2024, Discharge Orders/Prescriptions [...] Staff] - (Follow-up in 3 days at [facility] in clinic) Disposition Disposition (needs filled in before D/C Order can be placed): Home, Self Care Charges/Coding Visit Charges Inpatient E&M: 11280 Disch Hosp >30min 11/10/24 1034 Cosigner Signature (if applicable): CC: Dr. Clarice Murillo MD; Dr. Riky Li MD; Dr. Dennis Rocha MD~ Signed [facility]04-26-2025 Discharge summary [facility] Medical Records Department [address] [place] [address] Instructions for Home/Discharge Instructions 11/10/24 0940 MR#: [id number] Acct: [id number] Name: PACO WHITNEY Rep #:[id number] : 1935 89 From: Riky Evans PCP: [...] me in clinic in 3 days at [facility] on Tuesday, 13 November 2024, Discharge Orders/Prescriptions [...] Staff] - (Follow-up in 3 days at [facility] in clinic) Disposition Disposition (needs filled in before D/C Order can be placed): Home, Self Care 11/10/24 0947Riky Li MD CC: Dr. Evelyn Doss DO; Dr. Clarice Murillo MD ~ Signed [facility]04-26-2025 [facility] Medical Records Department [address] [place] [address] Discharge Summary 11/10/24 0947 MR#: [id number] Acct: [id number] Name: PACO WHITNEY Rep #: [id number] : 1935 89 From: Riky Li MD PCP: Dr. Clarice Murillo MD Status:ADM IN [facility] Providers Date of Admission: 11/08/24 Date of [...] induced arthritis: [facility] Patient had joint tap, no [...] in bilateral lung base (more content not included)...[facility]04-26-2025 Progress note [facility] Medical Records Department [address] [place] [address] Progress Note - Surgery 11/10/24 0938 MR#: [id number] Acct: [id number] Name: PACO WHITNEY Rep #:[id number] : 1935 89 From: Dennis Rocha MD PCP: Dr. Clarice Murillo MD Status:AD M [place] [facility] [place] ZV253-7 Subjective Subjective Doing well. Reports that pain [...] % (Auto) 61.9, Lymph % (Auto) 24.1, [place]morency % (Auto) 10.6 H, Eos % (Auto) [...] follow-up with me in 3 days at [facility] in clinic. Charges/Coding Visit Charges Inpatient E&M: 68127 Subs Hosp L1 11/10/24 0940 Cosigner Signature (if applicable): CC: ~ Signed ADDENDUM by Dr. Dennis Rocha MD on 11/10/24 at 0941 Addendum Afebrile with stable vital signs Normal white blood cell count 11/10/24 0941 Cosigner Signature (if applicable): cc: ~* Signed [facility]04-25-2025 Progress note Author Riky Li [facility] Note Date/Time November 09, 2024 3:4 5pm [facility] Medical Records Department [address] [place] [address] Progress Note - Hospitalist 11/09/2449 MR#: [id number] Acct: [id number] Name: PACO WHITNEY Rep #:[id number] : 1935 89 From: Riky Evans PCP: Dr. Clarice Murillo MD Status:AD M IN [place] [facility] [place] SL643-3 Reason for Visit Reason for Visit: Diagnoses [...] % (Auto) 68.3, Lymph % (Auto) 19.5, [place]morency% (Auto) 9.4, Eos % (Auto) 1.8, Baso [...] % (Auto) 66.4, Lymph % (Auto) 20.8, [place] % (Auto) 9.7, Eos % (Auto) 2.2, [...] tissue swelling about the wrist. Reading [facility] Wrist X-Ray 11/08/24 19:37 IMPRESSION: Negative for acute displaced fracture or dislocation. 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 Severe diffuse soft tissue swelling about the wrist. No cortical destruction. Osteopenia. Reading Location: [facility] Physical Exam Narrative Seen and examined Patient [...] induced arthritis: [facility]. Patient had joint tap, no [...] plus SCD's. Charges/Coding Visit Charges Inpatient E&M: 59511 Subs Hosp L2 11/09/24 0984 <Electronically signed by Riky Li MD> Cosigner Signature (if applicable): CC: ~ Signed [facility] Work Phone: 1(837) 276-429504-25-2025 Progress note [facility] Medical Records Department [address] [place] [address] Progress Note - Hospitalist 11/09/24 0949 MR#: [id number] Acct: [id number] Name: PACO WHITNEY Rep #:[id number] : 1935 89 From: Riky Evans PCP: Dr. Clarice Murillo MD Status:AD M IN Location: [place] 417264-1 Reason for Visit Reason for Visit: Diagnoses [...] % (Auto) 68.3, Lymph % (Auto) 19.5, [place]morency% (Auto) 9.4, Eos % (Auto) 1.8, Baso [...] WBCs 1.409, Synovial Neutrophils 46 H, Synovial Xtxljizoodc35, Synovial Monocytes 14, Synovial Polynuclear % 64.6, [...] % (Auto) 66.4, Lymph % (Auto) 20.8, [place]cy % (Auto) 9.7, Eos % (Auto) 2.2, [...] tissue swelling about the wrist. Reading Location: [facility] Wrist X-Ray 11/08/24 19:37 IMPRESSION: Negative for acute displaced fracture or dislocation. 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 Severe diffuse soft tissue swelling about the wrist. No cortical destruction. Osteopenia. Reading Location: [facility] Physical Exam Narrative Seen and examined Patient [...] plus SCD's. Charges/Coding Visit Charges Inpatient E&M: 18095 Subs Hosp L2 11/09/24 1585 Cosigner Signature (if applicable): CC: ~ Signed [facility]04-25-2025 Progress note Author Dennis Rocha [facility] Note Date/Time November 09, 2024 10: 18am [facility] Medical Records Department [facility] [place] [address] Progress Note - Surgery 11/09/24 1009 MR#: [id number] Acct: [id number] Name: PACO WHITNEY Rep #:[id number] : 1935 89 From: Dennis Rocha MD PCP: Dr. Clarice Murillo MD Status:AD M IN Location: [place] [address] Subjective Subjective Patient doing well overall. Less [...] % (Auto) 68.3, Lymph % (Auto) 19.5, [place]morency% (Auto) 9.4, Eos % (Auto) 1.8, Baso [...] % (Auto) 66.4, Lymph % (Auto) 20.8, [place] % (Auto) 9.7, Eos % (Auto) 2.2, [...] tissue swelling about the wrist. [facility] Wrist X-Ray 11/08/24 19:37 IMPRESSION: Negative for acute displaced fracture or dislocation. 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 Severe diffuse soft tissue swelling about the wrist. No cortical destruction. Osteopenia. Reading [facility] Physical Exam Narrative Left Upper Extremity Inspection: [...] Multi Select Codes Visit Charges Visit Charges: 42459 Subs Hosp L1 11/09/24 1018 <Electronically signed by Dennis Rocha MD> Cosigner Signature (if applicable): CC: ~ Signed [facility] Work Phone: 1(542) 300-985104-25-2025 Progress note [facility] Medical Records Department [address] [place] [address] Progress Note - Surgery 11/09/24 1009 MR#: [id number] Acct: [id number] Name: PACO WHITNEY Rep #:[id number] : 1935 89 From: Dennis Rocha MD PCP: Dr. Clarice Murillo MD Status:AD M IN [place] [facility] [place] EA045-0 Subjective Subjective Patient doing well overall. Less [...] % (Auto) 68.3, Lymph % (Auto) 19.5, [place]morency% (Auto) 9.4, Eos % (Auto) 1.8, Baso [...] WBCs 1.409, Synovial Neutrophils 46 H, Synovial Csvzxucjgxr69, Synovial Monocytes 14, Synovial Polynuclear % 64.6, [...] % (Auto) 66.4, Lymph % (Auto) 20.8, [place]cy % (Auto) 9.7, Eos % (Auto) 2.2, [...] tissue swelling about the wrist. Reading Location: [facility] Wrist X-Ray 11/08/24 19:37 IMPRESSION: Negative for acute displaced fracture or dislocation. 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 Severe diffuse soft tissue swelling about the wrist. No cortical destruction. Osteopenia. Reading Location: [facility] Physical Exam Narrative Left Upper Extremity Inspection: [...] Multi Select Codes Visit Charges Visit Charges: 70887 Subs Hosp L1 11/09/24 1018 Cosigner Signature (if applicable): CC: ~ Signed [facility]04-25-2025 History and physical note Author Evelyn Mccall [facility] Note Date/Time November 09, 2024 6:2 3am [facility] Medical Records Department [address] [place] [address] H&P Exam - Hospitalist 11/08/242000 MR#: [id number] Acct: [id number] Name: PACO WHITNEY Rep #:[id number] : 1935 89 From: Evelyn Shah DO PCP: Dr. Clarice Murillo MD Status:AD M IN Location: NE3 GP068-5 HPI - General General Date of Admission: [...] his first MTP joint who presents to [facility] ER complaining of Left wrist redness, swelling, [...] is expected to extend beyond 2 midnights. [facility] Medical History PAD (peripheral artery disease) Renal [...] % (Auto) 68.3, Lymph % (Auto) 19.5, Montmorency% (Auto) 9.4, Eos % (Auto) 1.8, Baso [...] is greatly appreciated. Acetaminophen as needed for hqiw-dp-fivccznm (level 1-5/10) pain or fever. Give morphine [...] 55 minutes. Charges/Coding Visit Charges Inpatient E&M: 86349 Init Hosp L2 11/09/24 0623 <Electronically signed by Evelyn Doss DO> Cosigner Signature (if applicable): CC: Dr. Evelyn Doss DO; Dr. Clarice Murillo MD~ Signed [facility] Work Phone: 1(629) 389-220304-25-2025 History and physical note [facility] Medical Records Department [address] [place] [address] H&P Exam - Hospitalist 11/08/242000 MR#: [id number] Acct: [id number] Name: PACO WHITNEY Rep #:[id number] : 1935 89 From: Evelyn Shah DO PCP: Dr. Clarice Murillo MD Status:AD M IN [place] [facility] [place] EI811-5 [facility] - General General Date of Admission: 11/08/24 [...] his first MTP joint who presents to [facility] ER complaining of Left wrist redness, swelling, [...] is expected to extend beyond 2 midnights. [facility] Medical History PAD (peripheral artery disease) Renal [...] % (Auto) 68.3, Lymph % (Auto) 19.5, [place]morency% (Auto) 9.4, Eos % (Auto) 1.8, Baso [...] is greatly appreciated. Acetaminophen as needed for rmzl-dq-lktgggnx (level 1-5/10) pain or fever. Give morphine [...] 55 minutes. Charges/Coding Visit Charges Inpatient E&M: 07779 Init Hosp L2 11/09/24 0623 Cosigner Signature (if applicable): CC: Dr. Evelyn Doss DO; Dr. Clarice Murillo MD~ Signed [facility]04-25-2025 Discharge summary Author Myriamus Sibleyjuanjo [facility] Note Date/Time November 08, 2024 10: 09pm [facility] Medical Records Department [address] [place] [address] Emergency Department Summary 11/08/24 MR#: [id number] Acct: [id number] Name: PACO WHITNEY Rep #:[id number] : 1935 89 From: Eduardo Hartley DO PCP: Dr. Clarice Murillo MD Status:AD M IN Location: [place] 417264-1 HPI History of Present Illness Chief Complaint: [...] wrist pain Disposition Disposition: Acute Care Hospital [facility] What to do if you have Problems For any increased pain, shortness of breath, bleeding, nausea or vomiting, chestpain, or any unexpected problems, contact your Primary Care Provider. Call [facility] ([phone]) or report to the closest Emergency Room. Call 911 if necessary. 11/08/24 2427 <Electronically signed by Eduardo Hartley DO> Cosigner Signature (if applicable): CC: Dr. Clarice Murillo MD ~ Signed [facility] Work Phone: 1(850) 191-967804-24-2025 Evaluation note* Diagnosis Onset Date Resolution Status Admit Date Cellulitis acute November 08 8:32pm Dehydration acute November 08, 025 8:32pm Gout acute November 08 8:32pm History of hypertension acute A pril 2024 8:32pm Left wrist pain acute October h2024 8:32pm Overweight (BMI 25.0-29.9) acute November 08, 2024 8:32pm Swelling of joint of left wrist acut e November 08, 2024 8:32pm [facility] Work Phone: 1(896) 756-652804-24-2025 Evaluation note* Diagnosis Onset Date Resolution Status Admit Date Dehydration acute November 08, 025 8:32pm Gout acute November 08 8:32pm History of hypertension acute A pril 2024 8:32pm Left wrist pain acute October 8:32pm Overweight (BMI 25.0-29.9) acute November 08, 2024 8:32pm Swelling of joint of left wrist acut e November 08, 2024 8:32pm Cellulitis resolved November 08 8:32pm Swelling of joint of left wrist acut e November 13, 2024 1:38pm Elevated serum creatinine acute March 10, 2025 7:22pm Lower GI bleed acute February 7:22pm Rectal bleed acute March 10, 2025 7:22pm History of gastrointestinal bleeding chronic March 10 7:22pm [facility] Work Phone: 1([phone]) 442-480704-24-2025 Discharge summary [facility] Medical Records Department [address] [place] [address] Emergency Department Summary 11/08/24 MR#: [id number] Acct: [id number] Name: PACO WHITNEY Rep #:[id number] : 1935 89 From: Eduardo Hartley DO PCP: Dr. Clarice Murillo MD Status:AD M IN Location: [place] [address] HPI History of Present Illness Chief Complaint: [...] wrist pain Disposition Disposition: Acute Care Hospital [facility] What to do if you have Problems For any increased pain, shortness of breath, bleeding, nausea or vomiting, chestpain, or any unexpected problems, contact your Primary Care Provider. Call [facility] ([phone]) or report tothe closest Emergency Room. Call 911 if necessary. 11/08/242208 Cosigner Signature (if applicable): CC: Dr. Clarice Murillo MD ~ Signed [facility]04-24-2025 Consult note Author Dennis Rocha [facility] Note Date/Time November 08, 2024 7:4 1pm [facility] Medical Records Department [address] [place] [address] Consultation - Surgical 11/08/24 1853 MR#: [id number] Acct: [id number] Name: PACO WHITNEY Josefina Rep #:[id number] : 1935 89 From: Dennis Rocha MD [...] wnl (10). 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 [facility] Medical History PAD (peripheral artery disease) Renal [...] and DIP joints. 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 Sensory: Intact to light touch on the radial and ulnar borders. Vascular: Finger tips are warm and well perfused with <2 second capillary refill. Const alert and oriented x3 Lab / Micro Data 11/08/24 18:28 11/08/24 18:28 Charges/Coding Multi Select Codes Visit Charges Office Visit/Consults: 49383 OV L5 New 60min (This visit took greater than 60 minutes (history, physical exam, review of imaging). Procedure performed as well) 11/08/241940 <Electronically signed by Dennis Rocha MD> Cosigner Signature (if applicable): CC: Dr. Clarice Murillo MD~ Signed [facility] Work Phone: 1(457) 496-964704-24-2025 Radiology Diagnostic study note [facility] Imaging Services [address] [place], [place] [address] Hand Min 3 Views MR#: [id number] Acct: [id number] Name: PACO WHITNEY Rep #: [id number] : 1935 M 89 From: Davie Pino DO PCP: Dr. Clarice Murillo MD Status: RE G ER Study:Hand Min 3 Views Date of Exam: Exam# [id number] Ordering Dr: Lauryn Rocha MD PROCEDURE: HAND [...] tissue swelling about the wrist. Reading Location: [facility] CC: Dr. Clarice Murillo MD; Dr. Dennis Rocha MD ~ Press Tender Star Signal: Signed [facility]04-24-2025 Radiology Diagnostic study note [facility] Imaging Services [address] [place] [address] Wrist min 3 Views MR#: [id number] Acct: [id number] Name: PACO WHITNEY Josefina Rep #: [id number] : 1935 M 89 From: Davie Pino DO PCP: Dr. Clarice Murillo MD Status: RE G ER Study:Wrist min 3 Views Date of Exam: Exam# [id number] Ordering Dr: Mary Kay Hartley DO EXAM: Left wrist radiographs CLINICAL HISTORY: Pain, swelling COMPARISON: None TECHNIQUE: Three views of the left wrist FINDINGS: See impression RAD/Wrist min 3 Views IMPRESSION: Negative for acute displaced fracture or dislocation. 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 Severe diffuse soft tissue swelling about the wrist. No cortical destruction. Osteopenia. Reading [facility] CC: Dr. Clarice Murillo MD; Dr. Eduardo Hartley DO ~ Press Tender Star Signal: Signed [facility]04-24-2025 Consult note [facility] Medical Records Department [address] [place] [address] Consultation - Surgical 11/08/24 1853 MR#: [id number] Acct: [id number] Name: PACO WHITNEY Josefina Rep #:[id number] : 1935 89 From: Dennis Rocha MD [...] wnl (10). 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 [facility] Medical History PAD (peripheral artery disease) Renal [...] and DIP joints. 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 Sensory: Intact to light touch on the radial and ulnar borders. Vascular: Finger tips are warm and well perfused with <2 second capillary refill. Const alert and oriented x3 Lab / Micro Data 11/08/24 18:28 11/08/24 18:28 Charges/Coding Multi Select Codes Visit Charges Office Visit/Consults: 49038 OV L5 New 60min (This visit took greater than 60 minutes (history, physical exam, review of imaging). Procedure performed as well) 11/08/241940 Cosigner Signature (if applicable): CC: Dr. Clarice Murillo MD~ Signed [facility]04-24-2025 NoteHNO ID: [id number] Author: VASYL WELSH MD Service: ? Author Type: Physician Type: Progress Notes Filed: 11/08/2024 18:31 Note Text: [facility] Subjective Paco Whitney is a 89 [...] available. He will take himself to the [facility]. Vasyl Welsh MD History and Record [...] will be seeking further care outside the [facility] hospital system. Disposition The patient was other (comment) (Self transport to ER). [facility] Instructions* Patient Instructions* Jyothi Mosley APRN.BORDER MEASURER - 11/03/2024 8:58 AM EDT Use your [...] 4 hours as needed. [facility]04-[facility]-2025 NoteHNO ID: [id number] Author: JYOTHI MOSLEY APRN.SARAI Service: ? Author Type: Nurse Practitioner Type: Progress Notes Filed: 11/03/2024 09:08 Note Text: [facility] Subjective Paco Whitney is [...] history is provided by the patient. No foreign language stenographer was used. Review of Systems Constitutional: Negative [...] inhaler or nebulizer prn Follow up with machining associate as needed Diagnosis and treatment plan were discussed and questions were answered to the patient's satisfaction. Pt acknowledged understanding of concepts and follow up plan. Specific signs and symptoms that would indicate the need for higher level of care were discussed in detail warranting prompt ER evaluation. Jyothi Mosley APRN.[facility]IB[facility]04-19-2025 History of Present illness Narrative* Jyothi Mosley APRN.BORDER MEASURER - 11/03/2024 8:30 AM EDT [facility] [...] history is provided by the patient. No foreign language stenographer was used. Review of Systems Constitutional: Negative [...] inhaler or nebulizer prn Follow up with machining associate as needed Diagnosis and treatment plan were discussed and questions were answered to the patient's satisfaction. Pt acknowledged understanding of concepts and follow up plan. Specific signs and symptoms that would indicate the need for higher level of care were discussed indetail warranting prompt ER evaluation. Jyothi Mosley APRN.BORDER MEASURER documented in this encounterNorwalk [facility]04-17-2025 Telephone encounter Note * Telephone Encounter [...] is . I confirmed [facility] in [place] as pharmacy. He would like a call once it has been sent in so he can go pick up worker. [phone]. Requested Prescriptions Pending Prescriptions Disp Refills SYMBICORT 160-4.5 mcg/actuation inhaler 11 g 0 Sig: Inhale 2 puffs as instructed two times a day. Mary Wagner MA November 01, 2024 9:36 AM [facility]04-17-2025 Miscellaneous Notes* Telephone Encounter - Mary [...] his current inhaler is . I confirmed aNt Davis in [place] as pharmacy. He would like a call once it has been sent in so he can go pick up worker. [phone]. Requested Prescriptions Pending Prescriptions Disp Refills SYMBICORT 160-4.5 mcg/actuation inhaler 11 g 0 Sig: Inhale 2 puffs as instructed two times a day. Mary Wagner MA November 01, 2024 9:36 AM documented in this encounterNorwalk [facility] Hospital03-10-2025 History of Present illness Narrative* Francia Luna MD - 09/24/2024 10:00 AM EDT Images from the original note were not included. . [facility] [place] Note Patient name: Paco Whitney PCP: Clarice [...] Take 1 capsule by mouth once daily. iolyfgii-lexxcbnbx-gbxjdvadlyiqba (CORTISPORIN) 3.5-10,000-1 mg/mL-unit/mL-% otic suspension Use 4 [...] of smoking cessation Francia Luna MD [facility] [place] documented in this encounterNorwalk [facility] Hospital03-10-2025 NoteHNO ID: [id number] Author: FRANCIA LUNA MD Service: ? Author Type: Physician Type: Progress Notes Filed: 09/24/2024 19:37 Note Text: . [facility] [place] Note Patient name: Paco Whitney PCP: Clarice [...] Take 1 capsule by mouth once daily. hkepnzyh-ogmdjuksp-efasxazejzvtao (CORTISPORIN) 3.5-10,000-1 mg/mL-unit/mL-% otic suspension Use 4 [...] will continue abstinence f (more content not included)...[facility]02-21-2025 Telephone encounter Note* Telephone Encounter - [...] ONCE DAILY AT BEDTIME Monet Dahl RN [facility]02-21-2025 Miscellaneous Notes* Telephone Encounter - Monet [...] ONCE DAILY AT BEDTIME Monet Dahl RN documented in this encounterNorwalk Memorial Hospital01-15-2025 Instructions* Patient Instructions* Karla Campuzano APRN.CNP - 08/01/2024 3:03 PM EST Get repeat fasting labs completed in 6 months Continue to take all medication as prescribed Recommend follow up with Orthopedics to discuss shoulder pain Continue to eat a well balanced diet and stay active. Follow up in 6 months or sooner as needed. documented in this encounterNorwalk Memorial Hospital01-15-2025 History of Present illness Narrative* Karla [...] W/COLLJ SPEC WHEN PFRMD 09/19/2011 [facility]oscopy [facility] ENDOVASCULAR ANEURYSM REPAIR 01/2013 with bi-liac [...] on empty stomach, 1/2 hr before meal. gbvsbhdx-ylajgdroq-vizxusdzthhifp (CORTISPORIN) 3.5-10,000-1 mg/mL-unit/mL-% otic suspension Use 4 [...] discussed and patient voices understanding. Karla Campuzano APRN.BORDER MEASURER This note was partially generated using Dragon voice recognition system. Note was reviewed for accuracy. There may be minor misspellings or grammar miscues with Appscio voice recognition. documented in this encounterNorwalk Memorial Hospital01-15-2025 NoteHNO ID: [id number] Author: KARLA CAMPUZANO APRN.CNP Service: ? Author Type: Nurse Practitioner [...] W/COLLJ SPEC WHEN PFRMD 09/19/2011 Colonoscopy inpt [facility] ENDOVASCULAR ANEURYSM REPAIR 01/2013 with bi-lia [...] on empty stomach, 1/2 hr before meal. fyvtpkej-afvdsplid-mmalpavboppoja (CORTISPORIN) 3.5-10,000-1 mg/mL-unit/mL-% otic suspension Use 4 [...] Cancer Brother of jerrell (more content not included)...[facility]12-05-2024 NoteHNO ID: [id number] Author: ADRIEL VIDES RN Service: ? Author Type: Registered Nurse Type: Progress Notes Filed: 06/21/2024 15:08 Note Text: [facility] Telephonic Outreach Provider Action/FYI Contacted for: Routine Telephonic Outreach Contact made with patient: Yes Patient identified by name and date of . Discussed care with patient Are you experiencing any new or worsening symptoms you need to talk about today? No Based on energy consultant, the following disposition is advised: No symptoms or symptoms present, not severe. Routed to: No Action Needed GEOFF Education Provided this Outreach: No No concerns Cares for - She has appointment tomorrow to check B/P Adriel Vides RN June 21, 2024 3:07 [facility]12-05-2024 History of Present illness Narrative* Adriel Vides RN - 06/21/2024 3:02 PM EST [facility] Telephonic Outreach Provider Action/FYI Contacted for: Routine Telephonic Outreach Contact made with patient: Yes Patient identified by name and date of . Discussed care with patient Are you experiencing any new or worsening symptoms you need to talk about today? No Based on energy consultant, the following disposition is advised: No symptoms or symptoms present, not severe. Routed to: No Action Needed GEOFF Education Provided this Outreach: No No concerns Cares for - She has appointment tomorrow to check B/P Adriel Vides RN June 21, 2024 3:07 PM documented in this encounterNorwalk Memorial Hospital12-05-2024 NotePatient Outreach ([facility]) PACO WHITNEY ([id number]) 1935 M Date Time Provider Department 06/21/24 ADRIEL VIDES [facility] [place] During your visit today, we recorded the following information about you: Adriel Vides RN 06/21/2024 3:08 PM Signed [facility] Telephonic Outreach Provider Action/FYI Contacted for: Routine Telephonic Outreach Contact made with patient: Yes Patient identified by name and date of . Discussed care with patient Are you experiencing any new or worsening symptoms you need to talk about today? No Based on energy consultant, the following disposition is advised: No symptoms [...] Comments: Myalgia. Date Reviewed: 01/16/2024 Reviewed by: Pretty Siegel LPN - Fully Assessed Reason for [...] empty stomach, 1/2 hr before meal. - nlrtbhfl-mzyqurpaz-ujltpyhvgazwif (CORTISPORIN) 3.5-10,000-1 mg/mL-unit/mL-% otic suspension Use 4 [...] 03/08/2023 Encounter Status:Closed by ADRIEL VIDES on 06/21/24[facility] 05-24-[facility]24 NoteHNO ID: [id number] Author: ADRIEL VIDES RN Service: ? Author Type: Registered Nurse Type: Progress Notes Filed: 05/24/2024 14:33 Note Text: [facility] Telephonic Outreach Provider Action/FYI Contacted for: Routine Telephonic Outreach Contact made with patient: Yes Patient identified by name and date of . Discussed care with patient Are you experiencing any new or worsening symptoms you need to talk about today? No Based on energy consultant, the following disposition is advised: No symptoms or symptoms present, not severe. Routed to: No Action Needed GEOFF Education Provided this Outreach: No Doing well Chronic conditions at baseline Sabiha evans No concerns today Adriel Vides RN May 24, 2024 2:32 [facility]11-07-2024 History of Present illness Narrative* Adriel Vides RN - 05/24/2024 2:21 PM EST [facility] Telephonic Outreach Provider Action/FYI Contacted for: Routine Telephonic Outreach Contact made with patient: Yes Patient identified by name and date of . Discussed care with patient Are you experiencing any new or worsening symptoms you need to talk about today? No Based on energy consultant, the following disposition is advised: No symptoms or symptoms present, not severe. Routed to: No Action Needed GEOFF Education Provided this Outreach: No Doing well Chronic conditions at baseline Sabiha evans No concerns today Adriel Vides RN May 24, 2024 2:32 PM documented in this encounterNorwalk Memorial Hospital11-07-2024 NotePatient Outreach ([facility]) PACO WHITNEY ([id number]) 1935 M Date Time Provider Department 05/24/24 ADRIEL VIDES [facility] During your visit today, we recorded the following information about you: Adriel Vides RN 05/24/2024 2:33 PM Signed [facility] Telephonic Outreach Provider Action/FYI Contacted for: Routine Telephonic Outreach Contact made with patient: Yes Patient identified by name and date of . Discussed care with patient Are you experiencing any new or worsening symptoms you need to talk about today? No Based on energy consultant, the following disposition is advised: No symptoms [...] Comments: Myalgia. Date Reviewed: 01/16/2024 Reviewed by: Pretty Siegel LPN - Fully Assessed Reason for [...] empty stomach, 1/2 hr before meal. - tirjbpfz-gglzcqdtm-sesysndrjzgvsf (CORTISPORIN) 3.5-10,000-1 mg/mL-unit/mL-% otic suspension Use 4 [...] 03/08/2023 Encounter Status:Closed by ADRIEL VIDES on 05/24/24[facility] 05-04-2024 Telephone encounter Note* Telephone Encounter - Clarice Murillo MD - 05/04/2024 4:49 PM EDT OK to refill as ordered Clarice Murillo MD [facility]10-18-2024 Miscellaneous Notes* Telephone Encounter - Clarice [...] 04, 2024 3:57 PM documented in this encounterNorwalk Memorial Hospital10-18-2024 Telephone encounter Note * Telephone Encounter [...] Johanna Uribe May 04, 2024 3:57 PM [facility]10-10-2024 History of Present illness Narrative* Adriel Vides RN - 04/26/2024 11:23 AM EDT [facility] Telephonic Outreach Provider Action/FYI Contacted for: Routine Telephonic Outreach Contact made with patient: Yes Patient identified by name and date of . Discussed care with patient Are you experiencing any new or worsening symptoms you need to talk about today? No Based on energy consultant, the following disposition is advised: No symptoms [...] 26, 2024 11:32 AM documented in this encounterNorwalk Memorial Hospital10-09-2024 History of Present illness Narrative* Adriel Vides RN - 04/25/2024 3:18 PM EDT [facility] Telephonic Outreach Provider Action/FYI Contacted for: Routine Telephonic Outreach Contact made with patient: No, left message. Adriel Vides RN April 25, 2024 3:27 PM documented in this encounterNorwalk Memorial Hospital09-09-2024 History of Present illness Narrative* Adriel Vides RN - 03/26/2024 12:21 PM EDT [facility] Telephonic Outreach Provider Action/FYI Contacted for: Routine Telephonic Outreach Contact made with patient: Yes Patient identified by name and date of . Discussed care with patient Are you experiencing any new or worsening symptoms you need to talk about today? No Based on energy consultant, the following disposition is advised: No symptoms [...] 26, 2024 12:30 PM documented in this encounterNorwalk Memorial Hospital09-04-2024 Instructions* Patient Instructions* Karla Campuzano APRN.CNP - 03/21/2024 2:39 PM EDT Continue to take all medication as prescribed. 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 Romeo 2003: RPR RETINAL DTCHMNT DRG SUBRETINAL FLUID PC Comment: Laser repair retinal detach, right eye No date: TONSILLECTOMY PRIMARY/SECONDARY <AGE 14 Comment: Tonsillectomy 1964: VASECTOMY UNI/BI SPX W/POSTOP [...] on empty stomach, 1/2 hr before meal. bdicxgau-ptvjwcjnr-xoqzicqimpjdka (CORTISPORIN) 3.5-10,000-1 mg/mL-unit/mL-% otic suspension Use 4 [...] Gait normal. Sensation grossly intact. Latest Ref Rng 03/07/2024 Protein, Total 6.3 - 8.0 g/dL [...] current medication. 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 6. Neuropathy - ICD9: 355.9, ICD10: G62.9 [...] APRN.SARAI This note was partially generated using Appscio voice recognition system. Note was reviewed for accuracy. There may be minor misspellings or grammar miscues with Appscio voice recognition. documented in this encounterNorwalk Memorial Hospital08-28-2024 Telephone encounter Note * Telephone Encounter - Pretty Siegel LPN - 03/14/2024 2:24 PM EDT Patient notified of results, verbalizes understanding of instructions. Pretty Siegel LPN [facility]08-28-2024 Miscellaneous Notes* Telephone Encounter - Pretty Siegel LPN - 03/14/2024 2:24 PM EDT Patient notified of results, verbalizes understanding of instructions. Pretty Siegel LPN * Telephone Encounter - Karla [...] any questions. Thank you. Karla Campuzano APRN.CNP documented in this encounterNorwalk Memorial Hospital08-28-2024 Telephone encounter Note * Telephone Encounter [...] has any questions. Thank you. Karla Campuzano APRN.BORDER MEASURER [facility]08-09-20[facility] History of Present illness Narrative* Adriel Vides RN - 02/24/2024 2:34 PM EDT [facility] Telephonic Outreach Provider Action/FYI Contacted for: Routine Telephonic Outreach Contact made with patient: Yes Patient identified by name and date of . Discussed care with patient Are you experiencing any new or worsening symptoms you need to talk about today? No Based on energy consultant, the following disposition is advised: No symptoms or symptoms present, not severe. 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 Listened with HEART Adriel Vides RN February 24, 2024 2:47 PM documented in this encounterNorwalk Memorial Hospital08-02-2024 Telephone encounter Note * Telephone Encounter - Clarice Murillo MD - 02/17/2024 3:32 PM EDT Done and given to pt in office Clarice Murillo MD [facility]08-02-2024 Miscellaneous Notes* Telephone Encounter - Clarice Murillo MD - 02/17/2024 3:32 PM EDT Done and given to pt in office Clarice Murillo MD * Telephone Encounter - Korin Calixto MA - 02/17/2024 2:13 PM EDT Requesting renewal of handicap placard. In office with today for OV. Printed and on your desk to sign. Korin Calixto MA documented in this encounterNorwalk Memorial Hospital08-02-2024 Telephone encounter Note * Telephone Encounter - Korin Calixto MA - 02/17/2024 2:13 PM EDT Requesting renewal of handicap placard. In office with today for OV. Printed and on your desk to sign. Korin Calixto MA [facility]07-11-20[facility] History of Present illness Narrative* Adriel Vides, RN - 01/26/2024 2:39 PM EDT CDM [...] to talk about today? No Based on energy consultant, the following disposition is advised: No symptoms or symptoms present, not severe. Routed to: No Action Needed GEOFF Education Provided this Outreach: Isis Vides RN January 26, 2024 2:50 PM documented in this encounterNorwalk Memorial Hospital07-10-2024 Telephone encounter Note * Telephone Encounter - Karla Campuzano APRN.CNP - 01/25/2024 7:00 PM EDT The following approved medication requests have been transmitted electronically. Requested Prescriptions Signed Prescriptions Disp Refills gabapentin (NEURONTIN) 600 mg tablet 90 tablet 5 Sig: Take 1 tablet by mouth three times a day for 180 days. Authorizing Provider: KARLA CAMPUZANO APRN.CNP [facility]07-10-2024 Miscellaneous Notes* Telephone Encounter - Karla [...] Beebe. Whit Rodriguez RN documented in this encounterNorwalk Memorial Hospital07-10-2024 Telephone encounter Note * Telephone Encounter - Whit Rodriguez RN - 01/25/2024 4:11 PM EDT Patient calls and states that provider had increased patient's gabapentin to 600 mg TID from 300 mgTID. Patient states that this has been very helpful with his neuropathy. Patient will need a new prescription sent for this to [facility]. Whit Rodriguez RN [facility]07-01-2024 Instructions* Patient Instructions* Karla Campuzano APRN.CNP [...] up in 3 months. 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 rftcdlan-jawvfxqqa-vlllksathvjtsp (CORTISPORIN) 3.5-10,000-1 mg/mL-unit/mL-% otic suspension Use 4 [...] discussed and patient voices understanding. Karla Campuzano APRN.BORDER MEASURER This note was partially generated using Appscio voice recognition system. Note was reviewed for accuracy. There may be minor misspellings or grammar miscues with Appscio voice recognition. documented in this encounterNorwalk Memorial Hospital06-18-2024 History of Present illness Narrative* Francia Luna MD - 01/03/2024 1:39 PM EDT Images from the original note were not included. . [facility] [place] Note Patient name: Paco Whitney PCP: Clarice Murillo MD CC: follow-up CB HPI: Paco Whitney 88 year old male former 39-goxl-[id number] smoker quitting in 1990 with PMH significant [...] Take 1 capsule by mouth once daily. 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 . [facility] [place] Note Patient name: Paco Whitney PCP: Clarice Murillo MD CC: follow-up CB HPI: Paco Whitney 88 year old male former 25-voko-kxns smoker quitting in 1990 with PMH significant [...] Take 1 capsule by mouth once daily. 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 Romeo RPR RETINAL DTCHMNT DRG SUBRETINAL FLUID PC 2004 Laser repair retinal detach, right eye TONSILLECTOMY [...] Former cigarette smoker Francia Luna MD [facility] [place] documented in this encounterNorwalk Memorial Hospital06-11-2024 Telephone encounter Note * Telephone Encounter - Clarice Murillo MD - 12/27/2023 1:43 PM EDT OK to refill as ordered Clarice Murillo MD [facility]06-11-[facility] Miscellaneous Notes* Telephone Encounter - Clarice Murillo MD - 12/27/2023 1:43 PM EDT OK to refill as ordered Clarice Murillo MD * Telephone Encounter - [place] Katy Santiago - 12/27/2023 8:50 AM EDT Prescription Refill [...] a day for 180 days. Katy Rodriguez [facility] December 27, 2023 8:50 AM documented in this encounterNorwalk Memorial Hospital06-11-2024 Telephone encounter Note * Telephone Encounter - [place] Katy Santiago - 12/27/2023 8:50 AM EDT Prescription Refill [...] a day for 180 days. Katy Rodriguez [facility] December 27, 2023 8:50 AM [facility]06-10-[facility] History of Present illness Narrative* Adriel Vides, RN - 12/26/2023 8:59 AM EDT CDM Telephonic Outreach Provider Action/FYI Doing well Just need a new skeleton Discussed active lifestyle bah to aging well COPD- baseline- HTN- at goal Plans for follow up with PCP -last few visits with [facility] Contacted for: Routine Telephonic Outreach Contact made [...] more often than normal? No Based on energy consultant, the following disposition is advised: No symptoms or symptoms present, not severe. Routed to: No Action Needed GEOFF Education Provided this Outreach: Isis Vides RN December 26, 2023 11:07 AM documented in this encounterNorwalk Memorial Hospital05-08-2024 History of Present illness Narrative* Adriel [...] more often than normal? No Based on energy consultant, the following disposition is advised: No symptoms or symptoms present, not severe. Routed to: No Action Needed GEOFF Education Provided this Outreach: Isis Vides RN November 23, 2023 1:34 PM documented in this encounterNorwalk Memorial Hospital05-06-2024 Telephone encounter Note * Telephone Encounter - Karla Campuzano APRN.CNP - 11/21/2023 8:38 AM EDT The following approved medication requests have been transmitted electronically. Requested Prescriptions Pending Prescriptions Disp Refills ramipril (ALTACE) 10 mg capsule 90 capsule 3 Sig: Take 1 capsule by mouth once daily. Karla Campuzano APRN.CNP [facility]05-06-2024 Miscellaneous Notes* Telephone Encounter - Karla [...] 11/21/2023 8:15 AM EDT Pharmacy verified in [facility] Patient has been identified by name and [...] Not applicable Please advise. Samaria Martins Pss documented in this encounterNorwalk Memorial Hospital05-06-2024 Telephone encounter Note * Telephone Encounter - Malu Brower OCCA - 11/21/2023 8:36 AM EDT RAYO 10/07/2023 NOV 01/16/2024 Please review and advise. Thank you. TOM Graham [facility]05-06-2024 Telephone encounter Note* Telephone Encounter - Samaria Madison - 11/21/2023 8:15 AM EDT Pharmacy verified in [facility] Patient has been identified by name and [...] Not applicable Please advise. Samaria Martins Pss [facility]04-08-20[facility] History of Present illness Narrative* Adriel Vides, RUBEN - 10/24/2023 3:48 PM EDT CDM Telephonic [...] to talk about today? No Based on energy consultant, the following disposition is advised: No symptoms or symptoms present, not severe. Routed to: No Action Needed GEOFF Education Provided this Outreach: No Adriel Vides RN October 24, 2023 4:04 PM documented in this encounterNorwalk Memorial Hospital03-22-2024 Instructions* Patient Instructions* Karla Campuzano APRN.CNP - 10/07/2023 10:19 AM EDT If symptoms do not improve or get worse start prednisone and zpack Continue to take all medication as prescribed. Keep scheduled appointments with specialists. Get repeat fasting labs in 6 months. Follow up in 3 months or sooner as needed. 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 pnfsaleu-ropxhstwa-jplmbsofzxpcoz (CORTISPORIN) 3.5-10,000-1 mg/mL-unit/mL-% otic suspension Use 4 [...] Gait normal. Sensation grossly intact. Latest Ref Rng 07/29/2023 Protein, Total 6.3 - 8.0 g/dL [...] discussed and patient voices understanding. Karla Campuzano APRN.CNP This note was partially generated using Appscio voice recognition system. Note was reviewed for accuracy. There may be minor misspellings or grammar miscues with Appscio voice recognition. documented in this encounterNorwalk Memorial Hospital03-18-2024 Miscellaneous Notes* Telephone Encounter - Sid [...] name and date of : Yes, Provider [facility] Patient phones for refill(s): Requested Prescriptions Pending Prescriptions Disp Refills tamsulosin (FLOMAX) 0.4 mg 90 capsule 3 Sig: TAKE ONE CAPSULE BY MOUTH ONCE DAILY AT BEDTIME Date of last office visit in primary care: 07/08/2023 Date of next office visit in primary care: 10/07/2023 Please advise. Thank you. Indy Santiago. 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 Very nice gentlemen! Contacted for: Routine Telephonic [...] more often than normal? No Based on energy consultant, the following disposition is advised: No symptoms or symptoms present, not severe. Routed to: No Action Needed GEOFF Education Provided this Outreach: No Adriel Vides RN September 14, 2023 10:47 AM documented in this encounterNorwalk Memorial Hospital12-18-2023 History of Present illness Narrative* Samaria [...] DYE.. Lopid [Gemfibrozil] Other: See Comments Comment:Myalgia. rxmxukrh-touspualu-ikofwjeoxipwbi (CORTISPORIN) 3.5-10,000-1 mg/mL-unit/mL-% otic suspension Use 4 [...] W/COLLJ SPEC WHEN PFRMD 09/19/2011 [facility]oscopy [facility] HERNIA REPAIR HX 04/03/13 PAST SURGICAL [...] and updated in EMR. IMMUNIZATIONS Prevnar - 2014 Pneumovax 23 - 2005 Influenza [...] smoker - ICD9: V15.82, ICD10: Z87.891 Former 87-haiw-gizt smoking having quit in 1990 without sequelae [...] necessary. Samaria Lazcano PA-C documented in this encounterNorwalk Memorial Hospital11-15-2023 History of Present illness Narrative* Adriel Vides RN - 06/01/2023 9:22 AM EST CDM Telephonic Outreach Provider Action/FYI Doing well COPD [...] more often than normal? No Based on energy consultant, the following disposition is advised: No symptoms or symptoms present, not severe. Routed to: No Action Needed GEOFF Education Provided this Outreach: No Adriel Vides RN June 03, 2023 1:36 PM documented in this encounterNorwalk Memorial Hospital10-27-2023 Miscellaneous Notes* Telephone Encounter - Clarice Murillo MD - 05/13/2023 11:52 AM EDT OK to refill as ordered Clarice Murillo MD * Telephone Encounter - Tata Perry - 05/13/2023 9:53 AM EDT RAYO:03/14/23 NOV:06/15/23 * Telephone Encounter - EdgaryuryJohanna - 05/13/2023 9:36 AM EDT Patient has been identified by name and date of : Yes Requested Prescriptions Pending Prescriptions Disp Refills Fenofibrate (LOFIBRA) 160 mg tablet 30 tablet 11 Sig: Take 1 tablet by mouth once daily. RX INSTRUCTIONS: Patient aware RX will be sent to pharmacy. No need to notify patient. Johanna Jojo documented in this encounterNorwalk Memorial Hospital10-16-2023 History of Present illness Narrative* Adriel Vides RN - 05/02/2023 9:10 AM EDT [facility] Telephonic Outreach Provider Action/KOFFI Contacted for: Routine Telephonic Outreach Contact made with patient: No, left message. Adriel Vides RN May 02, 2023 4:25 PM documented in this encounterNorwalk Memorial Hospital09-12-2023 History of Present illness Narrative* Adriel Vides RN - 03/29/2023 9:43 AM EDT [facility] Telephonic Outreach Provider Action/FYI Patient states doing well today States he [...] more often than normal? No Based on energy consultant, the following disposition is advised: No symptoms or symptoms present, not severe. Routed to: No Action Needed GEOFF Education Provided this Outreach: No Adriel Vides RN March 30, 2023 1:44 PM documented in this encounterNorwalk Memorial Hospital08-28-2023 Instructions* Patient Instructions* Karla Campuzano APRN.SARAI [...] or sooner as needed. 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 wwdktzta-ohevezkjn-xfdmdjsmfbzmmk (CORTISPORIN) 3.5-10,000-1 mg/mL-unit/mL-% otic suspension Use 4 [...] APRN.SARAI This note was partially generated using Appscio voice recognition system. Note was reviewed for accuracy. There may be minor misspellings or grammar miscues with [employer] voice recognition. documented in this encounterNorwalk Memorial Hospital08-22-2023 History of Present illness Narrative* Ibeth Paredes APRN.BORDER MEASURER - 03/08/2023 11:00 AM EDT Images from the original note were not included. [facility] [place] DEPARTMENT OF VASCULAR SURGERY OUTPATIENT VISIT DATE [...] W/COLLJ SPEC WHEN PFRMD 09/19/2011 [facility] HERNIA REPAIR HX 04/03/13 PAST SURGICAL [...] Take 1 capsule by mouth once daily. cbkhjfeb-yklzwqpxi-dfypbluaqcbvwb (CORTISPORIN) 3.5-10,000-1 mg/mL-unit/mL-% otic suspension Use 4 [...] 2023 TIME: 9:01 AM documented in this encounterNorwalk Memorial Hospital08-18-2023 History of Present illness Narrative* Suzie Hickman RT(R) - 03/04/2023 1:00 PM EDT Radiology [...] 2023 TIME: 1:38 PM documented in this encounterNorwalk Memorial Hospital08-15-2023 Miscellaneous Notes* Telephone Encounter - Briana Nuñez LPN - 03/01/2023 2:32 PM EDT Patient triaged in today and directed to [facility]. Briana Nuñez LPN * Telephone Encounter - Suzie Landaverde LPN - 03/01/2023 10:39 AM EDT Patient called. Verified name and date of . States he started coughing three to four days ago. Is coughing brownish, some times greenish, thick/heavy. Headache- sinus. Denies fever. States this happens occasionally. Please review and advise. Preferred pharmacy is [facility]. Suzie Landaverde LPN documented in this encounterNorwalk Memorial Hospital08-15-2023 History of Present illness Narrative* Ramses [...] plan of care. Will be seen at [facility]. Ramses Jacinto APRN.SARAI documented in this encounterNorwalk Memorial Hospital08-09-2023 History of Present illness Narrative* Adriel Vides RN - 02/23/2023 5:00 PM EDT [facility] Telephonic Outreach Provider Action/FYI AAA surgery COPD Contacted for: Routine Telephonic Outreach Contact made with patient: No, left message. Adriel Vides RN February 23, 2023 5:02 PM documented in this encounterNorwalk Memorial Hospital07-18-2023 NoteHNO ID: [id number] Author: Too Kaur MD Service: Vascular Surgery Author Type: Resident Type: Progress Notes Filed: 02/01/2023 8:34 AM Note Text: [facility] V[facility]ULAR [facility] PROGRESS NOTE Template ID: [id number] Service Date: 02/01/2023 Admit Date: 01/31/2023Service Time: [...] tab(s) 81 mg ORAL DAILY Given, 02/01 75101/31/23 1219 -- 01/31/23 1230 heparin 5,000 Units injection (Surgical Risk Categories) 5,000 Units SUBCUTANEOUS EVERY 12 HOURS Given, 02/01 0751 01/31/23 1219 -- 01/31/23 1500 activity - mobilize patient (ky,wi) 01/31/23 1230 pneumatic compression stockings ([place] VTE Prophylaxis: VTE prophylaxis appropriate ALLERGIES [...] (!) 56 19 98 % -- -- 01/31/231999 (!) 117/49 36.7 ?C (98.1 ?F) Oral (!) 56 27 98 % -- -- 01/31/23 193 -- -- -- (!) 47 17 100 [...] DP, L PT DATA: Laboratory: Recent Labs 02/01/23258 WBC 6.60 HB 11.9* HCT 35.8* PLT 152 Recent Labs 02/01/23258 NA 139 K 3.9 BUN 19 CREAT 1.13 GLUC 118* MG 1.5* Impression: Paco Whitney is a 87 year old White male who is POD# 1 s/p EVAR with L iliac branch device Plan: Neuro/Pain: Continue pain contr (more content not included)...[facility] 02-01-2023 NoteHNO ID: [id number] Author: Reji Zarco MD Service: Critical Care Author Type: Resident Type: Progress Notes Filed: 02/01/2023 9:34 AM Note Text: Attestation signed by Pallavi Cazares MD at 02/01/2023 10:38 AM [facility] STAFF PHYSICIAN SUPERVISING RESIDENT I have [...] GERD, BPH, and AAA who presents to [facility] for AAA repair. The patient has undergone [...] 01/31/23699 - 02/01/2365802/01/23699 - 02/02/23 0659 Shift 9920-2758 9278-1817 2233-4376 24 Hour Total 7800-0974 2754-9349 0223-8748 24 Hour Total INTAKE PO 350 240 590 PO 350 240 590 IV 2800 2800 Volume (mL) (lactated ringers iv infusion) 1500 1500 Volume (mL) (lactated ringers iv infusion) 1000 1000 Volume (mL) (NaCl 0.9% iv infusion) 300 300 Shift Total 3150 240 3390 OUTPUT Urine 349 290 8544 2320 Void (ml) 600 1380 1980 Amount Voided Before Bladder Scan 0 0 0 0 OR Urine Output 340 340 # of BMs Number of BMs 0 x 0 x Blood 50 50 Estimated Blood loss 50 50 Shift Total 242 616 3954 2370 Weight (kg) 98.6 98.6 97.5 97.5 [...] q1hr vascular neurochecks Neuro: - Pain control: Shila Tylenol, Oxy PRN, dc Fentanyl, home gabapentin - Sedation: None (more content not included)...[id number] NoteHNO ID: [id number] Author: HOANG Barton Service: ? Author Type: Painter Foreman Type: Anesthesia Procedure Notes Filed: 01/31/2023 9:28 AM Note Text: ANESTHESIOLOGY PROCEDURE NOTE PIV General Information Procedure Start Time/Medication Administration: 01/31/2023 8:17 AM Staffing Anesthesiologist: Rylie Schulz MD OPERATOR HELPER: Jazz Sweet APRN.OPERATOR HELPER CAA: Ras Osuna AA Performed by: anesthesiologist Preparation Site Prep: alcohol Procedure Details Indication: need for IV access Needle Size/Type: 16 gauge angiocath Orientation: Right Location: Hand Imaging Guidance Used: No SIGNATURE: HOANG Barton PATIENT NAME: Paco Whitney DATE: January 31, 2023 TIME: 9:27 AM CSN: [id number] NoteHNO ID: [id number] Author: HOANG Barton Service: ? Author Type: Painter Foreman Type: Anesthesia Procedure Notes Filed: 01/31/2023 9:28 AM Note Text: ANESTHESIOLOGY PROCEDURE NOTE PIV General Information Procedure Start Time/Medication Administration: 01/31/2023 8:16 AM Patient Location: OR Staffing Anesthesiologist: Rylie Schulz MD OPERATOR HELPER: Jazz Sweet APRN.OPERATOR HELPER CAA: Ras Osuna AA Performed by: anesthesiologist Preparation Site Prep: alcohol Procedure Details Indication: need for IV access Needle Size/Type: 16 gauge angiocath Orientation: Left Location: Hand Imaging Guidance Used: No SIGNATURE: HOANG Barton PATIENT NAME: Paco Whitney DATE: January 31, 2023 TIME: 9:26 AM CSN: [id number] NoteHNO ID: [id number] Author: HOANG Barton Service: ? Author Type: Painter Foreman Type: Anesthesia Procedure Notes Filed: 01/31/2023 9:22 AM Note Text: ANESTHESIOLOGY PROCEDURE NOTE A-Line General Information Procedure Start Time/Medication Administration: 01/31/2023 8:05 AM Patient location during procedure: OR Indications: continuous blood pressure monitoring and blood sampling needed Staffing Anesthesiologist: Rylie Schulz MD OPERATOR HELPER: Jazz Sweet APRN.OPERATOR HELPER CAA: Ras Osuna AA Performed by: anesthesiologist [...] January 31, 2023 TIME: 9:15 AM CSN: [id number] NoteHNO ID: [id number] Author: HOANG Barton Service: ? Author Type: Painter Foreman Type: Anesthesia Procedure Notes Filed: 01/31/2023 9:15 AM Note Text: ANESTHESIOLOGY PROCEDURE NOTE Airway General Information Procedure Start Time/Medication Administration: 01/31/2023 8:15 AM Patient location during procedure: OR Patient identity confirmed: arm band, care stationary steam engineer and patient Staffing Anesthesiologist: Rylie Schulz MD OPERATOR HELPER: Jazz Sweet APRN.OPERATOR HELPER CAA: Ras Osuna AA Performed by: NICOLE Indications and Patient Condition Indications for airway management: anesthesia Preoxygenated: yes anesthesia circuit Patient position: sniffing Method: asleep Difficult Mask: No Airway Accessory: oral airway (9 cm) Final Airway Details Final airway type: endotracheal airway Final Endotracheal Airway: ETT Successful intubation technique: video laryngoscopy Devices used: Garibay Endotracheal tube insertion site: oral Blade size: [...] January 31, 2023 TIME: 9:08 AM CSN: [id number] History of Present illness Narrative* Adriel Vides RN - 01/25/2023 10:26 AM EDT [facility] Telephonic Outreach Provider Action/IHSANI Patient completed pre surgical testing for scheduled [...] improved. Very pleased with pulmonary visit and VEGETABLE BUNCHER taking time to review diagnotic imaging with [...] more often than normal? No Based on energy consultant, the following disposition is advised: No symptoms or symptoms present, not severe. 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 Negative for: cerebral palsy, HYDROLOGY TEACHER tumor, dementia, headaches, impaired sensorium, multiple sclerosis, [...] pain, CHF, congenital heart defect, DVT/PE, recent MO, open heart surgery and valve surgery. 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 Taking Yes ewmvrjtq-nswfnmpkp-duemkbhawuggbo (CORTISPORIN) 3.5-10,000-1 mg/mL-unit/mL-% otic suspension Use 4 Drops in the ears four times daily. x 1 week Taking Yes albuterol HFA (VENTOLIN HFA) 90 mcg/actuation inhaler Inhale 2 Puffs as instructed every 4 hours asneeded for Wheezing/Shortness of Breath. Taking Yes Medication Comments documented by Korin Calixto Ma on 11/27/2019 at 1501. Started Baby ASA 81 mg daily ALLERGIES Allergen Reactions [facility]] [Other] Other: See Comments Rhabdomyolysis. Demerol [Meperidine* [...] or any previous visit (from the past 52500 hour(s)). Assessment Patient has the following medical [...] smoker - ICD9: V15.82, ICD10: Z87.891 Former 49-ccdj-gacu smoking having quit in 1990 without sequelae [...] equal to 35 kg/m^2 STOP-Bang Score: 7 [id number] Score: Age: >=75 Sex: male CHF history: No Hypertension history: Yes Stroke/TIA/thromboembolism history: Yes Vascular disease history: Yes Diabetes history: No MAH5MS2-VOXu Score: 6 ARISCAT Score: Age: >80 Preoperative [...] and consent discussed: yes. Patient / Responsible Green Party agrees to proceed: yes Patient / [...] [facility] or Procedure: Answer: [place] Confirm Blood Type Standing Status: Future Standing [...] 11:44 AM PAGER/CONTACT #: documented in this encounterNorwalk Memorial Hospital07-10-2023 Instructions* Patient Instructions* Rose Wall APRN.CNP - 01/24/2023 11:44 AM EDT PATIENT PREOPERATIVE INSTRUCTIONS No ref. provider found has scheduled you for your procedure at this surgery center: [facility]: [phone] --[id number] [address]. Please check in on the1st floor at [...] Procedures: - YOU MUST HAVE A RESPONSIBLE MEDICATION TECHNICIAN TAKE YOU HOME. A STENCIL CUTTER OR SERVICE PLUMBER CANNOT BE MADE A RESPONSIBLE MEDICATION TECHNICIAN. - We recommend that a responsible person [...] Advance Directive, please fax a copy to [phone] or email to for it to be [...] day. Rose Wall APRN.SARAI documented in this encounterNorwalk Memorial Hospital06-22-2023 History of Present illness Narrative* Samaria [...] Take 1 capsule by mouth once daily. 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 Continue abstinence. Does not qualify for lung cancer screening with LDCT Portions of this documentation were copied and pasted from previous office visit notes in order to provide a cohesive continuity of the history. The note has been reviewed and edited and updated as necessary. Samaria Lazcano PA-C documented in this encounterNorwalk Memorial Hospital06-07-2023 History of Present illness Narrative* Adriel Vides RN - 12/22/2022 10:33 AM EDT [facility] Telephonic Outreach Provider Action/FYI Contacted for: Routine Telephonic Outreach Contact made with patient: No, left message. Adriel Vides RN December 22, 2022 3:55 PM documented in this encounterNorwalk Memorial Hospital05-15-2023 NoteHNO ID: [id number] Author: CLARA Dunham Service: Nuclear Medicine Author [...] POST EXAM PIV STATUS: Discontinued PROCEDURE TYPE: WA Stress: 12.4 mCi Pv08s-Kczhjqn was administered IV for Rest Imaging at 09:33 by . 33.7 mCi Ae53s-Rmqwzsf was administered IV for Stress Imaging at 10:19 by . PATIENT DISCHARGED TO: Ambulatory patient, left WA department area. A Diagnostic radioactive procedure has taken place, with no further precautions necessary other than routine body substance precautions. More information regarding radiation safety can be found using this link: [email or web address]%[email or web address] SIGNATURE: CLARA Dunham PATIENT NAME: Paco Whitney DATE: November 29, 2022 TIME: 10:20 AM [facility]AGER[facility]CONTACT [id number] History of Present illness Narrative* CLARA Dunham - 11/29/2022 9:30 AM EDT RADIOLOGY SERVICE [...] POST EXAM PIV STATUS: Discontinued PROCEDURE TYPE: WA Stress: 12.4 mCi Eo01s-Njafblq was administered IV for Rest Imaging at 09:33 by . 33.7 mCi Ft82p-Mvgtsuy was administered IV for Stress Imaging at 10:19 by . PATIENT DISCHARGED TO: Ambulatory patient, left WA department area. A Diagnostic radioactive procedure has taken place, with no further precautions necessary other than routine body substance precautions. More information regarding radiation safety can be found usingthis link: [email or web address] 20Diagnostic%20Nuclear%20Medicine%20Procedures.pdf SIGNATURE: CLARA Dunham PATIENT NAME: Paco Whitney DATE: November 29, 2022 TIME: 10:20 AM PAGER/CONTACT #: documented in this encounterNorwalk Memorial Hospital05-12-2023 Miscellaneous Notes* Telephone Encounter - Tosha Fernando RN - 11/26/2022 2:33 PM EDT Spoke with patient regarding reminder for stress test on Tuesday and given instructions documented in this encounterNorwalk Memorial Hospital05-11-2023 Miscellaneous Notes* Telephone Encounter - Clarice [...] and advise. Monet Santiago documented in this encounterNorwalk Memorial Hospital05-05-2023 History of Present illness Narrative* Adriel [...] more often than normal? No Based on energy consultant, the following disposition is advised: Symptoms present, not severe. Routed to: No Action Needed GEOFF Education Provided this Outreach: No Adriel Vides RN November 19, 2022 4:34 PM documented in this encounterNorwalk Memorial Hospital04-27-2023 History of Present illness Narrative* Chalino Valdez, DO - 11/11/2022 12:29 PM EDT Images from the original note were not included. [facility] [place] [facility] LOCATION: [address] [place] [address] ESTABLISHED PATIENT PATIENT INFO: Paco Whitney 87 [...] 64.1 Lymph% (%) Date Value 04/16/2019 21.3 [place]% (%) Date Value 04/16/2019 10.5 Eosin% (%) Date Value 04/16/2019 3.0 Baso% (%) Date Value 04/16/2019 1.1 Abs Neut (ANC) (k/uL) Date Value 04/16/2019 5.13 Abs [place] (k/uL) Date Value 04/16/2019 0.84 Abs Eosin [...] Take 1 capsule by mouth once daily. spivzzmq-kxgxukhzo-yianobkewxgufc (CORTISPORIN) 3.5-10,000-1 mg/mL-unit/mL-% otic suspension Use 4 [...] with more than 50% of the total yrre-pz-dvpi time of the visit in counseling / coordination of care. Chalino Valdez DO MBA documented in this encounterNorwalk Memorial Hospital04-13-2023 Miscellaneous Notes* Telephone Encounter - Charis Debi - 10/28/2022 9:34 AM EDT Patient calling with questions after OV on 10/27/22. Reviewed the plan from OV note from Patient plans to see urologist in a few weeks and will call the office if he decides to proceed with the procedure documented in this encounterNorwalk Memorial Hospital04-12-2023 History of Present illness Narrative* Eladio Pablo MD - 10/27/2022 2:45 PM EDT Images from the original note were not included. 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 wxrvpdnu-vowhzqrbv-tysgcjtjxueguy (CORTISPORIN) 3.5-10,000-1 mg/mL-unit/mL-% otic suspension Use 4 [...] medications for this visit. ALLERGIES Allergen Reactions [facility]] [Other] Other: See Comments Rhabdomyolysis. Demerol [Meperidine* [...] pre op cardiac evaluation documented in this encounterNorwalk Memorial Hospital04-10-2023 Miscellaneous Notes* Telephone Encounter - Korin [...] pt. Sofie Crain LPN documented in this encounterNorwalk Memorial Hospital04-06-2023 History of Present illness Narrative* Adriel Vides RN - 10/21/2022 8:39 AM EDT INSIGHT CDM TELEPHONIC OUTREACH Provider Action/FYI: Patient's spouse answered. They are at [facility], needed to stop and pay a bill. [...] Pt Outreach. End outreach documented in this encounterNorwalk Memorial Hospital03-29-2023 History of Present illness Narrative* Suzie [...] 13, 2022 12:11 PM documented in this encounterNorwalk Memorial Hospital03-27-2023 History of Present illness Narrative* Fabio Noriega MD - 10/11/2022 10:29 AM EDTAssociated Order(s): Large Joint Arthro/Inj: bilateral glenohumerals Post-Procedure Diagnose(s): Acute pain of both shoulders; Chronic pain of both shoulders; Primary osteoarthritis of both shoulders Patient presents with: Right Shoulder - Pain, New Left Shoulder - Pain, New Fabio Noriega MD Department of Orthopaedics Orthopaedics [address] [facility] [address] Dept: [phone] Dept October 11, 2022 CHIEF COMPLAINT: Pain [...] bilateral glenohumerals Informed Consent Consent Obtained: Verbal [place] Protocol A moment to CARE was completed. [...] osteoarthritis and bilateral subacromial subdeltoid calcific bursitis. Press Tender Star Signal: PENNY Transcribe Date/Time: Oct 13 2022 4:47P [...] None RESULT: Severe bilateral glenohumeral osteoarthritis with etke-le-xsvx contact. Mild degenerative change bilateral acromioclavicular joints. 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 wcrhohgt-qgdjpuaqh-cwjsrrkurmwlpa (CORTISPORIN) 3.5-10,000-1 mg/mL-unit/mL-% otic suspension Use 4 [...] physician via US mail. Karla Campuzano [address] [facility] [address] Clarice Murillo MD [address] [facility] [address] Fabio Noriega MD documented in this encounterNorwalk Memorial Hospital03-15-2023 Miscellaneous Notes* Telephone Encounter - Pretty Siegel LPN - 09/29/2022 1:25 PM EDT Patient notified of results, verbalizes understanding of instructions. Pretty Siegel LPN * Telephone Encounter - Karla Campuzano APRN.CNP - 09/29/2022 12:12 PM EDT Can you please call the patient and let him know that I have placed all the consults he requested. They are good for one year. Please let me know if he has any questions. Thank you. Karla Campuzano APRN.CNP * Telephone Encounter - Melanie Cruz RN [...] see Dr. Simpson first. 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 Marianne Escobar Ma documented in this encounterNorwalk Memorial Hospital02-16-2023 Miscellaneous Notes* Telephone Encounter - Sid Frank APRN.CNP - 09/02/2022 10:16 AM EST The following approved medication requests have been transmitted electronically. Requested Prescriptions Pending Prescriptions Disp Refills tamsulosin (FLOMAX) 0.4 mg 90 capsule 3 Sig: TAKE ONE CAPSULE BY MOUTH ONCE DAILY AT BEDTIME Sid Frank APRN.CNP * Telephone Encounter - Samaria Scotty - 09/02/2022 8:32 AM EST Patient has [...] and advise. Samaria Fajardo documented in this encounterNorwalk Memorial Hospital02-02-2023 History of Present illness Narrative* Adriel Vieds, RN - 08/19/2022 12:37 PM EST INSIGHT CDM TELEPHONIC OUTREACH Provider Action/FYI: Doing well.olviia Has PCP appointment on 09/06 to discuss [...] like to speak with a social work stationary steam engineer to help give you support for any [...] you up for automated weekly questionnaires through [employer]. This is an easy way for us [...] PtOutreach and End outreach. documented in this encounterNorwalk Memorial Hospital01-26-2023 Miscellaneous Notes* Telephone Encounter - Sid [...] 08/12/2022 10:41 AM EST Pharmacy verified in [facility] Patient has been identified by name and [...] advise. Samaria Martins Pss documented in this encounterNorwalk Memorial Hospital12-30-2022 History of Present illness Narrative* Adriel Vides RN - 07/16/2022 8:55 AM EST HO YEE TELEPHONIC OUTREACH Provider Alaina/KOFFI COPD-At baseline- Pulmonary visit 07/06. Trial increased Symbicort. BY-jsmordpi-fcyecsvtm from 2018 No concerns outside of his degenerative arthritis-Seems to worsen when damp outside. Advised discussion with PCP next visit if worsening. Does not access [employer] Contact made with patient: Yes Patient identified [...] like to speak with a social work stationary steam engineer to help give you support for any [...] you up for automated weekly questionnaires through [employer]. This is an easy way for us [...] PtOutreach and End outreach. documented in this encounterNor[facility]12-28-2022 Miscellaneous Notes* Telephone Encounter - Francia Luna MD - 07/14/2022 10:47 AM EST Spoke with patient regarding results of chest CT. ILD has not progressed and RLL mass-like infiltrate is the same compared to 2018, consistent with rounded atelectasis. documented in this encounterNorwalk [facility] Hospital12-22-2022 History of Present illness Narrative* Suzie Hickman RT(Josefina) - 07/08/2022 11:00 AM EST Radiology Service [...] 08, 2022 11:57 AM documented in this encounterNorwalk Memorial Hospital12-20-2022 History of Present illness Narrative* Francia Luna MD - 07/06/2022 1:30 PM EST Images from the original note were not included. . Respiratory [place] Note Patient name: Paco Whitney PCP: Clarice [...] cerebral ischemia x 2 ALLERGIES [facility] [Other] Other: See Comments Rhabdomyolysis. Demerol [Meperidine* [...] on empty stomach, 1/2 hr before meal. 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 Romeo RPR RETINAL DTCHMNT DRG SUBRETINAL FLUID PC 2004 Laser repair retinal detach, right eye TONSILLECTOMY [...] the chest 3. Former cigarette smoker -Former 90-gtja-gbhw smoker having quit in 1990 without sequelae of significant COPD or emphysema -Continued abstinence Francia Luna MD Respiratory [place] documented in this encounterNorwalk [facility] Hospital12-20-2022 Nurse Note* Briana Nuñez LPN - 07/06/2022 1:25 PM EST Intake information documented in the prior visit with TUYET Enciso today. documented in this encounterNorwalk [facility] Hospital11-29-2022 Miscellaneous Notes* Telephone Encounter - Elizabeth Alvarez LPN - 2022 10:49 AM EST [facility] calling to clarify rx for Doxycyline. Rx says one tablet twice daily for 10 days, rx sent for 10 tablets only. Please send new rx with amount wanted please. Please advise documented in this encounterNorwalk Memorial Hospital11-29-2022 Instructions* Patient Instructions* Keith Guillen APRN.SARAI - 2022 10:10 AM EST Continue prednisone and Doxycycline Start Mucinex Follow up with Dr. 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 Patient Allergies ALLERGIES Allergen Reactions [facility]] [Other] Other: See Comments Rhabdomyolysis. Demerol [Meperidine* [...] on empty stomach, 1/2 hr before meal. nvokahdn-cirdksovg-mxhemlewolymrd (CORTISPORIN) 3.5-10,000-1 mg/mL-unit/mL-% otic suspension Use 4 [...] exacerbation of chronic obstructive pulmonary disease (COPD) ([facility]) - ICD9: 491.21, ICD10: J44.1 - PREDNISONE 10 MG TABLET - DOXYCYCLINE HYCLATE 100 MG TABLET - GUAIFENESIN ER 600 MG TABLET, EXTENDED RELEASE 12 HR - CONSULT TO PULMONARY MEDICINE Keithozzy Guillen APRN.CNP documented in this encounterNorwalk Memorial Hospital11-28-2022 History of Present illness Narrative* Francia Rangel MA - 06/14/2022 9:29 AM EST POPULATION HEALTH NAVIGATION OUTREACH Action/FYI June 14, 2022 Spoke with patient. We have scheduled him with Keith Guillen CNP for tomorrow, 2022 to be seen for his cough, thank you Pt identified by name and : YES, via phone Outreach Outcome/Action Spoke to patient or caregiver: Patient scheduled Did you use a PCP flex slot to schedule this appointment? No Reason for Outreach [employer] [place] Payer: Payor: PRIMETIME / Plan: PRIMETIME HMO [...] EST INSIGHT [facility] TELEPHONIC OUTREACH Provider Action/FYI: COPD Received flu vaccine. Seen in express care 06/08 for cough Pulse ox 95% [...] PCP within 7 days - Routed to [facility] [[id number]] Medications Do you have any questions about [...] like to speak with a social work stationary steam engineer to help give you support for any [...] you up for automated weekly questionnaires through [employer]. This is an easy way for us [...] RN - 06/11/2022 9:42 AM EST INSIGHT [facility] TELEPHONIC OUTREACH Provider Action/FYI: Contact made with patient: No - Left message Timur my name is Adriel Vides RN your Bulk Plant Manager from the [facility] I am calling today for your bi-weekly check in. I am sorry I missed your call. I will reach out to you again tomorrow. (if the third call I will reach out to you again next week) Enter next patient outreach date forthe following using the Track Pt Outreach. End outreach. documented in this encounterNorwalk Memorial Hospital11-23-2022 Miscellaneous Notes* Telephone Encounter - Charis [...] ER. Jyothi Mosley APRN.CNP documented in this encounterNorwalk Memorial Hospital11-22-2022 History of Present illness Narrative* Amy Sawyer RT(R) - 06/08/2022 3:10 PM EST Radiology Service [...] IV DATA: Not applicable SIGNED BY: RT Kristy(R) June 08, 2022 3:06 PM documented in this encounterNorwalk Memorial Hospital11-18-2022 History of Present illness Narrative* Clarice [...] syndrome. Is taking Aspirin 81 mg daily. 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 skzodepm-vcoeeiejk-mjaukvatizcusq (CORTISPORIN) 3.5-10,000-1 mg/mL-unit/mL-% otic suspension Use 4 [...] Past Histories independently gathered by the clinical office support assistant and the remaining scribed note accurately describes [...] AM. Marianne Escobar Ma documented in this encounterNorwalk Memorial Hospital10-14-2022 Miscellaneous Notes* Telephone Encounter - Marianne [...] once daily. Please review and advise. Charis Jones Pss documented in this encounterNorwalk Memorial Hospital09-26-2022 History of Present illness Narrative* Marianne [...] like to speak with a social work stationary steam engineer to help give you support for any [...] you up for automated weekly questionnaires through [employer]. This is an easy way for us [...] PtOutreach and End outreach. documented in this encounterNorwalk Memorial Hospital08-29-2022 History of Present illness Narrative* Marianne Balderas RN - 03/15/2022 9:17 AM EDT INSIGHT [facility] TELEPHONIC OUTREACH Provider Action/FYI: Patient reports they [...] like to speak with a social work stationary steam engineer to help give you support for any [...] you up for automated weekly questionnaires through [employer]. This is an easy way for us [...] PtOutreach and End outreach. documented in this encounterNorwalk Memorial Hospital08-02-2022 History of Present illness Narrative* Marianne [...] like to speak with a social work stationary steam engineer to help give you support for any [...] you up for automated weekly questionnaires through [employer]. This is an easy way for us [...] PtOutreach and End outreach. documented in this encounterNorwalk [facility] Hospital08-01-2022 History of Present illness Narrative* Marianne Balderas RN - 02/15/2022 10:48 AM EDT INSIGHT [facility] TELEPHONIC OUTREACH Provider Action/FYI: Contact made with patient: No - Left message Hello my name is Marianne Balderas RN your Bulk Plant Manager from the [facility] I am calling today for your monthly check in. I am sorry I missed your call. I will reach out to you again tomorrow. (if the third call I will reach out to you again next week) Enter next patient outreach datefor the following using the Track Pt Outreach. End outreach. documented in this encounterNorwalk Memorial Hospital07-21-2022 Miscellaneous Notes* Telephone Encounter - Sid Frank APRN.SARAI - 02/04/2022 9:45 AM EDT The following [...] Frank APRN.CNP * Telephone Encounter - Johanna Jojo - 02/04/2022 9:15 AM EDT Patient has [...] Patient asking for a return call. Johanna Jojo documented in this encounterNorwalk Memorial Hospital07-05-2022 History of Present illness Narrative* Marianne Balderas RN - 01/19/2022 9:33 AM EDT INSIGHT [facility] TELEPHONIC OUTREACH Provider Action/FYI: Pt reports he [...] like to speak with a social work stationary steam engineer to help give you support for any [...] you up for automated weekly questionnaires through [employer]. This is an easy way for us [...] PtOutreach and End outreach. documented in this encounterNorwalk Memorial Hospital05-20-2022 Miscellaneous Notes* Telephone Encounter - Elisa Granger Ma - 12/04/2021 10:32 AM EDT Pt notified. * Telephone Encounter - Clarice Murillo MD - 12/03/2021 6:08 PM EDT Please notify patient that his blood work all looks good. Clarice Murillo MD documented in this encounterNorwalk Memorial Hospital05-16-2022 History of Present illness Narrative* Clarice [...] W/COLLJ SPEC WHEN PFRMD 09/19/2011 [facility] HERNIA REPAIR HX 04/03/13 PAST SURGICAL [...] Inhale 2 Puffs as instructed twice daily. wjcdghmq-kajfsgeva-jtfxpgmpkjkked (CORTISPORIN) 3.5-10,000-1 mg/mL-unit/mL-% otic suspension Use 4 [...] Past Histories independently gathered by the clinical office support assistant and the remaining scribed note accurately describes [...] PM. Marianne Escobar Ma documented in this encounterNorwalk Memorial Hospital05-16-2022 Nurse Note* Marianne Escobar Ma - [...] Falls and Maintaining Balance documented in this encounterNorwalk Memorial Hospital04-18-2022 History of Present illness Narrative* Marianne [...] like to speak with a social work stationary steam engineer to help give you support for any [...] you up for automated weekly questionnaires through [employer]. This is an easy way for us [...] PtOutreach and End outreach. documented in this encounterNorwalk Memorial Hospital03-21-2022 History of Present illness Narrative* Marianne [...] like to speak with a social work stationary steam engineer to help give you support for any [...] you up for automated weekly questionnaires through [employer]. This is an easy way for us [...] PtOutreach and End outreach. documented in this encounterNorwalk Memorial Hospital12-23-2014 History of Past illness Narrative* Problem Noted Date Resolved Date AAA (abdominal aortic aneurysm) 07/09/2014 11/25/2020 Overview: CT abd 06/2014 showing 4.4 x 4.2 cm AAA documented as of this encounter (statuses as of 10/05/2021) [facility] Narrative* Problem Noted Date Resolved Date AAA (abdominal aortic aneurysm) 07/09/2014 11/25/2020 Overview: CT abd 06/2014 showing 4.4 x 4.2 cm AAA documented as of this encounter (statuses as of 11/02/2021) [facility] Narrative* Problem Noted Date Resolved Date AAA (abdominal aortic aneurysm) 07/09/2014 11/25/2020 Overview: CT abd 06/2014 showing 4.4 x 4.2 cm AAA documented as of this encounter (statuses as of 12/01/2021) [facility] Narrative* Problem Noted Date Resolved Date AAA (abdominal aortic aneurysm) 07/09/2014 11/25/2020 Overview: CT abd 06/2014 showing 4.4 x 4.2 cm AAA documented as of this encounter (statuses as of 12/04/2021) [facility] Narrative* Problem Noted Date Resolved Date AAA (abdominal aortic aneurysm) 07/09/2014 11/25/2020 Overview: CT abd 06/2014 showing 4.4 x 4.2 cm AAA documented as of this encounter (statuses as of 01/19/2022) [facility] Narrative* Problem Noted Date Resolved Date AAA (abdominal aortic aneurysm) 07/09/2014 11/25/2020 Overview: CT abd 06/2014 showing 4.4 x 4.2 cm AAA documented as of this encounter (statuses as of 02/04/2022) [facility] Narrative* Problem Noted Date Resolved Date AAA (abdominal aortic aneurysm) 07/09/2014 11/25/2020 Overview: CT abd 06/2014 showing 4.4 x 4.2 cm AAA documented as of this encounter (statuses as of 02/15/2022) [facility] Narrative* Problem Noted Date Resolved Date AAA (abdominal aortic aneurysm) 07/09/2014 11/25/2020 Overview: CT abd 06/2014 showing 4.4 x 4.2 cm AAA documented as of this encounter (statuses as of 02/16/2022) [facility] Narrative* Problem Noted Date Resolved Date AAA (abdominal aortic aneurysm) 07/09/2014 11/25/2020 Overview: CT abd 06/2014 showing 4.4 x 4.2 cm AAA documented as of this encounter (statuses as of 03/15/2022) [facility] Narrative* Problem Noted Date Resolved Date AAA (abdominal aortic aneurysm) 07/09/2014 11/25/2020 Overview: CT abd 06/2014 showing 4.4 x 4.2 cm AAA documented as of this encounter (statuses as of 04/12/2022) [facility] Narrative* Problem Noted Date Resolved Date AAA (abdominal aortic aneurysm) 07/09/2014 11/25/2020 Overview: CT abd 06/2014 showing 4.4 x 4.2 cm AAA documented as of this encounter (statuses as of 04/30/2022) [facility] Narrative* Problem Noted Date Resolved Date AAA (abdominal aortic aneurysm) 07/09/2014 11/25/2020 Overview: CT abd 06/2014 showing 4.4 x 4.2 cm AAA documented as of this encounter (statuses as of 06/04/2022) [facility] Narrative* Problem Noted Date Resolved Date AAA (abdominal aortic aneurysm) 07/09/2014 11/25/2020 Overview: CT abd 06/2014 showing 4.4 x 4.2 cm AAA documented as of this encounter (statuses as of 06/14/2022) [facility] Narrative* Problem Noted Date Resolved Date AAA (abdominal aortic aneurysm) 07/09/2014 11/25/2020 Overview: CT abd 06/2014 showing 4.4 x 4.2 cm AAA documented as of this encounter (statuses as of 2022) [facility] Narrative* Problem Noted Date Resolved Date AAA (abdominal aortic aneurysm) 07/09/2014 11/25/2020 Overview: CT abd 06/2014 showing 4.4 x 4.2 cm AAA documented as of this encounter (statuses as of 2022) [facility] Narrative* Problem Noted Date Resolved Date AAA (abdominal aortic aneurysm) 07/09/2014 11/25/2020 Overview: CT abd 06/2014 showing 4.4 x 4.2 cm AAA documented as of this encounter (statuses as of 07/05/2022) [facility] Narrative* Problem Noted Date Resolved Date AAA (abdominal aortic aneurysm) 07/09/2014 11/25/2020 Overview: CT abd 06/2014 showing 4.4 x 4.2 cm AAA documented as of this encounter (statuses as of 07/06/2022) [facility] Narrative* Problem Noted Date Resolved Date AAA (abdominal aortic aneurysm) 07/09/2014 11/25/2020 Overview: CT abd 06/2014 showing 4.4 x 4.2 cm AAA documented as of this encounter (statuses as of 07/20/2022) [facility] Narrative* Problem Noted Date Resolved Date AAA (abdominal aortic aneurysm) 07/09/2014 11/25/2020 Overview: CT abd 06/2014 showing 4.4 x 4.2 cm AAA documented as of this encounter (statuses as of 07/21/2022) [facility] Narrative* Problem Noted Date Resolved Date AAA (abdominal aortic aneurysm) 07/09/2014 11/25/2020 Overview: CT abd 06/2014 showing 4.4 x 4.2 cm AAA documented as of this encounter (statuses as of 08/12/2022) [facility] Narrative* Problem Noted Date Resolved Date AAA (abdominal aortic aneurysm) 07/09/2014 11/25/2020 Overview: CT abd 06/2014 showing 4.4 x 4.2 cm AAA documented as of this encounter (statuses as of 08/19/2022) [address]23-2014 History of Past illness Narrative* Problem Noted Date Resolved Date AAA (abdominal aortic aneurysm) 07/09/2014 11/25/2020 Overview: CT abd 06/2014 showing 4.4 x 4.2 cm AAA documented as of this encounter (statuses as of 09/02/2022) [address]23-2014 History of Past illness Narrative* Problem Noted Date Resolved Date AAA (abdominal aortic aneurysm) 07/09/2014 11/25/2020 Overview: CT abd 06/2014 showing 4.4 x 4.2 cm AAA documented as of this encounter (statuses as of 09/07/2022) [facility] Narrative* Problem Noted Date Resolved Date AAA (abdominal aortic aneurysm) 07/09/2014 11/25/2020 Overview: CT abd 06/2014 showing 4.4 x 4.2 cm AAA documented as of this encounter (statuses as of 09/29/2022) [facility] Narrative* Problem Noted Date Resolved Date AAA (abdominal aortic aneurysm) 07/09/2014 11/25/2020 Overview: CT abd 06/2014 showing 4.4 x 4.2 cm AAA documented as of this encounter (statuses as of 10/06/2022) [facility]arrative* Problem Noted Date Resolved Date AAA (abdominal aortic aneurysm) 07/09/2014 11/25/2020 Overview: CT abd 06/2014 showing 4.4 x 4.2 cm AAA documented as of this encounter (statuses as of 10/21/2022) [facility]arr[facility]* Problem Noted Date Resolved Date AAA (abdominal aortic aneurysm) 07/09/2014 11/25/2020 Overview: CT abd 06/2014 showing 4.4 x 4.2 cm AAA documented as of this encounter (statuses as of 10/26/2022) [facility] Narrative* Problem Noted Date Resolved Date AAA (abdominal aortic aneurysm) 07/09/2014 11/25/2020 Overview: CT abd 06/2014 showing 4.4 x 4.2 cm AAA documented as of this encounter (statuses as of 10/28/2022) [facility]arr[facility]* Problem Noted Date Resolved Date AAA (abdominal aortic aneurysm) 07/09/2014 11/25/2020 Overview: CT abd 06/2014 showing 4.4 x 4.2 cm AAA documented as of this encounter (statuses as of 10/29/2022) [facility]arrative* Problem Noted Date Resolved Date AAA (abdominal aortic aneurysm) 07/09/2014 11/25/2020 Overview: CT abd 06/2014 showing 4.4 x 4.2 cm AAA documented as of this encounter (statuses as of 11/11/2022) [facility] Narrative* Problem Noted Date Resolved Date AAA (abdominal aortic aneurysm) 07/09/2014 11/25/2020 Overview: CT abd 06/2014 showing 4.4 x 4.2 cm AAA documented as of this encounter (statuses as of 11/15/2022) [facility]arr[facility]* Problem Noted Date Resolved Date AAA (abdominal aortic aneurysm) 07/09/2014 11/25/2020 Overview: CT abd 06/2014 showing 4.4 x 4.2 cm AAA documented as of this encounter (statuses as of 11/20/2022) [facility]arr[facility]* Problem Noted Date Resolved Date AAA (abdominal aortic aneurysm) 07/09/2014 11/25/2020 Overview: CT abd 06/2014 showing 4.4 x 4.2 cm AAA documented as of this encounter (statuses as of 11/26/2022) [place] [address]23-2014 History of Past illness Narrative* Problem Noted Date Resolved Date AAA (abdominal aortic aneurysm) 07/09/2014 11/25/2020 Overview: CT abd 06/2014 showing 4.4 x 4.2 cm AAA documented as of this encounter (statuses as of 11/26/2022) [place] [address]2014 History of Past illness Narrative* Problem Noted Date Resolved Date AAA (abdominal aortic aneurysm) 07/09/2014 11/25/2020 Overview: CT abd 06/2014 showing 4.4 x 4.2 cm AAA documented as of this encounter (statuses as of 11/30/2022) [facility]* Problem Noted Date Resolved Date AAA (abdominal aortic aneurysm) 07/09/2014 11/25/2020 Overview: CT abd 06/2014 showing 4.4 x 4.2 cm AAA documented as of this encounter (statuses as of 11/30/2022) [place] [address]2014 History of Past illness Narrative* Problem Noted Date Resolved Date AAA (abdominal aortic aneurysm) 07/09/2014 11/25/2020 Overview: CT abd 06/2014 showing 4.4 x 4.2 cm AAA documented as of this encounter (statuses as of 12/23/2022) [place] [address] History of Past illness Narrative* Problem Noted Date Resolved Date AAA (abdominal aortic aneurysm) 07/09/2014 11/25/2020 Overview: CT abd 06/2014 showing 4.4 x 4.2 cm AAA documented as of this encounter (statuses as of 01/06/2023) [facility]* Problem Noted Date Diagnosed Date Resolved Date AAA (abdominal aortic aneurysm) 07/09/2014 11/25/2020 Overview: CT abd 06/2014 showing 4.4 x 4.2 cm AAA documented as of this encounter (statuses as of 01/27/2023) [facility]arr[facility]* Problem Noted Date Diagnosed Date Resolved Date AAA (abdominal aortic aneurysm) 07/09/2014 11/25/2020 Overview: CT abd 06/2014 showing 4.4 x 4.2 cm AAA documented as of this encounter (statuses as of 01/28/2023) [facility] Narrative* Problem Noted Date Diagnosed Date Resolved Date AAA (abdominal aortic aneurysm) 07/09/2014 11/25/2020 Overview: CT abd 06/2014 showing 4.4 x 4.2 cm AAA documented as of this encounter (statuses as of 02/24/2023) [facility] Narrative* Problem Noted Date Diagnosed Date Resolved Date AAA (abdominal aortic aneurysm) 07/09/2014 11/25/2020 Overview: CT abd 06/2014 showing 4.4 x 4.2 cm AAA documented as of this encounter (statuses as of 03/02/2023) [facility] Narrative* Problem Noted Date Diagnosed Date Resolved Date AAA (abdominal aortic aneurysm) 07/09/2014 11/25/2020 Overview: CT abd 06/2014 showing 4.4 x 4.2 cm AAA documented as of this encounter (statuses as of 03/02/2023) [facility] Narrative* Problem Noted Date Diagnosed Date Resolved Date AAA (abdominal aortic aneurysm) 07/09/2014 11/25/2020 Overview: CT abd 06/2014 showing 4.4 x 4.2 cm AAA documented as of this encounter (statuses as of 03/08/2023) [facility] Narrative* Problem Noted Date Diagnosed Date Resolved Date AAA (abdominal aortic aneurysm) 07/09/2014 11/25/2020 Overview: CT abd 06/2014 showing 4.4 x 4.2 cm AAA documented as of this encounter (statuses as of 03/15/2023) [facility] Narrative* Problem Noted Date Diagnosed Date Resolved Date AAA (abdominal aortic aneurysm) 07/09/2014 11/25/2020 Overview: CT abd 06/2014 showing 4.4 x 4.2 cm AAA documented as of this encounter (statuses as of 03/30/2023) [facility] Narrative* Problem Noted Date Diagnosed Date Resolved Date AAA (abdominal aortic aneurysm) 07/09/2014 11/25/2020 Overview: CT abd 06/2014 showing 4.4 x 4.2 cm AAA documented as of this encounter (statuses as of 05/03/2023) [facility] Narrative* Problem Noted Date Diagnosed Date Resolved Date AAA (abdominal aortic aneurysm) 07/09/2014 11/25/2020 Overview: CT abd 06/2014 showing 4.4 x 4.2 cm AAA documented as of this encounter (statuses as of 05/13/2023) [facility] Narrative* Problem Noted Date Diagnosed Date Resolved Date AAA (abdominal aortic aneurysm) 07/09/2014 11/25/2020 Overview: CT abd 06/2014 showing 4.4 x 4.2 cm AAA documented as of this encounter (statuses as of 05/22/2023) [facility] Narrative* Problem Noted Date Diagnosed Date Resolved Date AAA (abdominal aortic aneurysm) 07/09/2014 11/25/2020 Overview: CT abd 06/2014 showing 4.4 x 4.2 cm AAA documented as of this encounter (statuses as of 05/22/2023) [facility] Narrative* Problem Noted Date Diagnosed Date Resolved Date AAA (abdominal aortic aneurysm) 07/09/2014 11/25/2020 Overview: CT abd 06/2014 showing 4.4 x 4.2 cm AAA documented as of this encounter (statuses as of 05/22/2023) [place] [address]-23-2014 History of Past illness Narrative* Problem Noted Date Diagnosed Date Resolved Date AAA (abdominal aortic aneurysm) 07/09/2014 11/25/2020 Overview: CT abd 06/2014 showing 4.4 x 4.2 cm AAA documented as of this encounter (statuses as of 05/22/2023) [facility] History of Past illness Narrative* Problem Noted Date Diagnosed Date Resolved Date AAA (abdominal aortic aneurysm) 07/09/2014 11/25/2020 Overview: CT abd 06/2014 showing 4.4 x 4.2 cm AAA documented as of this encounter (statuses as of 06/03/2023) [facility] History of Past illness Narrative* Problem Noted Date Diagnosed Date Resolved Date AAA (abdominal aortic aneurysm) 07/09/2014 11/25/2020 Overview: CT abd 06/2014 showing 4.4 x 4.2 cm AAA documented as of this encounter (statuses as of 07/05/2023) [place] [address]-23-2014 History of Past illness Narrative* Problem Noted Date Diagnosed Date Resolved Date AAA (abdominal aortic aneurysm) 07/09/2014 11/25/2020 Overview: CT abd 06/2014 showing 4.4 x 4.2 cm AAA documented as of this encounter (statuses as of 09/14/2023) [place] [address]-23-2014 History of Past illness Narrative* Problem Noted Date Diagnosed Date Resolved Date AAA (abdominal aortic aneurysm) 07/09/2014 11/25/2020 Overview: CT abd 06/2014 showing 4.4 x 4.2 cm AAA documented as of this encounter (statuses as of 10/03/2023) [facility] History of Past illness Narrative* Problem Noted Date Diagnosed Date Resolved Date AAA (abdominal aortic aneurysm) 07/09/2014 11/25/2020 Overview: CT abd 06/2014 showing 4.4 x 4.2 cm AAA documented as of this encounter (statuses as of 10/07/2023) [facility] History of Past illness Narrative* Problem Noted Date Diagnosed Date Resolved Date AAA (abdominal aortic aneurysm) 07/09/2014 11/25/2020 Overview: CT abd 06/2014 showing 4.4 x 4.2 cm AAA documented as of this encounter (statuses as of 10/24/2023) [facility] Jalen Nunez [facility] Note Date/Time March 12, 2025 4: 54pm [facility] Medical Records Department [address] [place] [id number] Anesthesia Postop Eval I 03/12/251652 MR#: [id number] Acct: [id number] Name: PACO WHITNEY Rep #:[id number] : 1935 89 From: Jalen Nunez CRNA PCP: Dr. Clarice Murillo MD Status:AD M IN Y Race: C Location: [place] [address] Anesthesia: Postop Eval I Current Vital Signs Temperature: 97.8 F Pulse Rate: 84 Blood Pressure: 83/58 Respiratory Rate: 16 Pulse Ox: 97 Oxygen Delivery Method: Room Air Assessment Airway patent: Yes Spontaneous unlabored respirations: Yes Mental status: Awake and Calm nausea: No Vomiting: No Anesthesia Complication: No Fluid Hydration Crystalloid volume administer (ml): 100 Total IV fluid infused: 100 Progress Note Anesthesia document: Postop Eval 1 completed: Yes 03/12/251653 <Electronically signed by Jalen pate CRNA> Date _ Jalen Nunez CRNA Cosigner Signature: Date CC: ~ Signed [facility] Work Phone: Consult note Author Erlin Vences [facility] Note Date/Time March 12, 2025 5: 53pm [facility] Medical Records Department [address] [place] [address] Anesthesia Postop Eval II 03/12/251712 MR#: [id number] Acct: [id number] Name: PACO WHITNEY Rep #:[id number] : 1935 89 From: Erlin Vences MD PCP: Dr. Clarice Murillo MD Status:AD M IN Y Race: C Location: [place] [address] 7- Anesthesia Postop Eval I Sum Postop Eval Completion status Anesthesia document: Postop Eval 1 completed: Yes Anesthesia Postop Eval I Summary Anesthesia Postop Eval I Summary: Anesthesia Postop Eval I: Assessment Summary Airway patent Yes 03/12/25 16:54 [email or web address] Spontaneous unlabored Yes 03/12/25 16:54 OPERATOR [email or web address] respirations Mental status Awake,Calm 03/12/25 16:54 [email or web address] nausea No 03/12/25 16:54 OPERATOR [email or web address] Vomiting No 03/12/25 16:54 [email or web address] Anesthesia Postop Eval I: Fluid Summary Crystalloid volume administer 100 03/12/25 16:54 [email or web address] (ml) Colloids volume administered ( ml) Blood Product volume administered (ml) Total IV fluid infused 100 03/12/25 16:54 [email or web address] Anesthesia Postop Eval I: Summary Notes Anesthesia Complication No 03/12/25 16:54 [email or web address] Anesthesia Complication Comment: Post-operative progress note Anesthesia: Postop Eval II Evaluation Mental status: Awake and Calm Pain Level: 0 nausea: No Vomiting: No Complications Anesthesia Complication: No 03/12/251712 <Electronically signed by Erlin fabian MD> Date _ Erlin Vences MD Cosigner Signature: Date CC: ~ Signed [facility] Work Phone: Discharge summary Author Jaspal Prasad [facility] Note Date/Time March 12, 2025 5: 30pm [facility] Medical Records Department [address] [place] [address] Discharge Summary 03/12/25 1715 MR#: [id number] Acct: [id number] Name: PACO WHITNEY Rep #:[id number] : 1935 89 From: Jaspal quevedo MD PCP: Dr. Clarice Murillo MD Status:[facility] Location: [place] [address] Providers Date of Admission: 03/10/25 Primary Care Physician: Dr. Clarice Murillo MD Consultations 03/10/25 20:18 Consult: Gastroenterology Routine Consulting Provider: [facility] Reason for Consult: lower GIB, h/o diverticular bleed EMERGENT Consult: No MD Notified: Yes Date Notified: 03/11/25 Time Notified: 19:24 Method of Notification: Text Reason For Visit: LOWER GI BLEED Diagnosis Discharge Diagnosis (1) Rectal bleed: Status: Acute Code(s): K62.5 - Hemorrhage of anus and rectum Medications at Discharge Home Medications albuterol sulfate 90 mcg/actuation aerosol inhaler 2 puff inhalation Q4H PRN Sob&/Or Wheezing 07/05/14 ramipril 10 mg capsule 10 mg PO DAILY BP 07/05/14 pantoprazole 40 mg tablet,delayed release 40 mg PO DAILY gerd 08/21/14 cholecalciferol (vitamin D3) 25 mcg (1,000 unit) tablet 5,000 unit PO TID Supplement 11/23/14 tamsulosin 0.4 mg capsule 0.4 mg PO QHS Prostate 11/23/14 budesonide-formoterol HFA 160 mcg-4.5 mcg/actuation aerosol inhaler 2 puff inhalation BID Breathing 06/28/18 fenofibrate 160 mg tablet 160 mg PO DAILY cholesterol 04/10/19 albuterol sulfate 2.5 mg/3 mL (0.083 %) solution for nebulization 2.5 mg continuous nebulization Q4H PRN wheezing 11/08/24 gabapentin 600 mg tablet 600 mg PO TID neuropathy 11/08/24 latanoprost 0.005 % eye drops 1 drp ophthalmic (eye) DAILY glaucoma 11/08/24 Hospital Course Operations None Procedures Colonoscopy Summary of Care Provided Minutes Spent on Discharge: 45 Hospital Course: Per HPI: PACO WHITNEY, is a 89 M who presented to [facility] 03/10/2025 with lower GI bleed. Medical history significant for diverticulosis with diverticular bleeds. Last diverticular bleed was back in 2019. He presented with bright red blood per rectum with significant clots. Colonoscopy showed diverticulosis in the entire examined colon with blood in thesigmoid colon, no active signs of bleeding. Patient notes that his was hospitalized here this week and is now at [place], and he has been on his normal routine and frequently going back and forth from home to the hospital [facility]. He has also been eating out with more meals over that timeframe. This afternoon while he was out of the house, he fell again to have an urgent bowel movement and went to the bathroom and had a bloody stool. He then went home and had another bloody bowel movement, so he came in for further evaluation. In the ED he had a third bright red stool. He was normotensive andhemodynamically stable on room air. Hemoglobin 12.9, baseline 12-13. BMP with creatinine 1.33, baseline 1.1-1.2. CT abdomen pelvis showed diverticulosis withno source of bleeding identified. Given the multiple episodes of BRBPR and history of diverticular hemorrhage, hospitalist was contacted for admission. I saw the patient at bedside in the ED, family members were present. Patient was mildly fatigued appearing but otherwise sitting back comfortably in bed, conversing normally, in no acute distress. Patient was alert and oriented x 3 and is mentally sharp for his age. Had mild left lower quadrant abdominal pain but otherwise denies any other pain or discomfort. No other acute concerns currently. Will be admitted for further management. Hospital Course: 1. Bright red blood per rectum suspected secondary to recurrent diverticular bleed and internal hemorrhoids?89-year-old male presented from home to the hospital because of bright red blood per rectum and clots. Hemoglobin was minimally lowered on admission to 12.9 in October of this year he was around 13 and on the day of discharge she was 12.8. No further episodes of bleeding but he did have a colonoscopy which demonstrated significant diverticulosis as well as internal hemorrhoids. I discussed with him the possibly for discharge after his colonoscopy and he expressed understanding of the risks and benefits of going home and would like to go home today. Since there is no active bleeding on his colonoscopy I think going home is reasonable at this time. I do recommend that he follow-up with his PCP in 3 to 5 days to monitor his hemoglobin and I also have him following up with gastroenterology as an outpatient. We discussed indications for returning to the hospital and those include but not limited to symptomatic bleeding with lightheadedness and dizziness. 2. 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 His home medications were continued where appropriate. Physical Exam Narrative General: Alert, Oriented x3, Cooperative, No apparent distress HEENT: Atraumatic, PERRLA, EOMI, Normocephalic Oral: Moist Mucosa Neck: Supple, No JVD Lungs: Diminished, Normal air movement, No rhonchi, No wheeze, No rales Cardiovascular: Regular rate, Regular Rhythm, Normal S1, Normal S2, No murmurs Abdomen: Soft, Non Tender, Non-Distended, No Hepato-splenomegaly Extremities: No edema, Capillary Refill Less than 3 Seconds Skin: No rashes, No breakdown Musculoskeletal: No Tenderness to Palpation of Joints or Extremities Neurological: No focal neurological deficits, Motor Exam 5/5 strength throughout, Sensory exam intact to light touch and pain Psych/Mental Status: Normal Affect, Appropriate Weight / BMI Weight Weight: 182 lb 1.629 oz Body Mass Index (BMI) 28.5 ABG / Lab / Microbiology Data 03/12/25 04:48 03/12/25 04:48 Laboratory: Laboratory Results - last 24 hr 03/12/25 04:48: WBC 7.8, RBC 3.94 L, Hgb 12.8 L, Hct 37.2 L, MCV 94.4 H, MCH 32.5 H, MCHC 34.4, RDW Std Deviation 47.9 H, RDW Coeff of Nohemi 13.9, Plt Count 190, MPV 9.3, Immature Gran % (Auto) 0.300, Neut % (Auto) 70.3 H, Lymph % (Auto)16.7 L, [place] % (Auto) 9.7, Eos % (Auto) 2.2, Baso % (Auto) 0.8, Absolute Neuts (auto) 5.5, Absolute Lymphs (auto) 1.31, Nucleated RBC % 0, PT 14.7, INR 1.1, APTT 29.5, Sodium 137, Potassium 4.5, [place] 104, Carbon Dioxide 24.7, Anion Gap 8, BUN 22 H, Creatinine 0.98, Estim Creat Clear Calc 54.61, Est GFR (MDRD) Non-Af 74, BUN/Creatinine Ratio 22.0 H, Glucose 102 H, Calcium 9.8, Total Bilirubin 0.84, Direct Bilirubin 0.42 H, AST 29, ALT 19, Alkaline Phosphatase 80, Total Protein 5.7 L, Albumin 3.4, Globulin 2.3 03/12/25 13:14: POC Glucose 104 Microbiology: Microbiology 03/10/25 08:12 Stool Stool Occult Blood (LEXI) - Final Occult Blood Positive D/C Instructions Call your doctor if you observe: Fever of 101 or Higher, Shortness of breath, Dizziness, Fainting spells, Swelling in the ankles, Chest pain and Increased palpitations (irregular heartbeat) DC O2, CPAP, BIPAP Needs Home O2 Discharge instructions: No Meaningful Use Info Meaningful Use Meaningful Use Diagnoses (Choose all that apply): None applicable Discharge Plan Admission Admit Date/Time: 03/10/25 19:22 Attending Provider: Jaspal Prasad Primary Care Provider: Clarice Murillo Consulting Providers: Miller Vides; Riky Li; Jf Mack; Alessia Samuels; Samaria Carlin; Lauren Webber Instructions Additional Instructions / Restrictions: Follow-up with your PCP in 3 to 5 days to monitor your hemoglobin, as we discussed if you develop lightheadedness or dizziness while having bright red blood per rectum come to the hospital otherwise call your PCP to monitor your hemoglobin if you have intermittent episodes of bleeding to determine if and when you need to be evaluated as diverticular bleeding can be oftentimes self-limited. Discharge Orders/Prescriptions Prescriptions: Continued albuterol sulfate 1 INHALER inhaler 2 puff inhalation Q4H PRN (Reason: Sob &/Or Wheezing) ramipril 10 MG capsule 10 mg PO DAILY Patient Comments: BLOOD PRESSURE pantoprazole 40 MG tablet 40 mg PO DAILY Patient Comments: ACID REFLUX tamsulosin 0.4 MG capsule 0.4 mg PO QHS Patient Comments: PROSTATE cholecalciferol (vitamin D3) 1,000 UNIT tablet 5,000 unit PO TID budesonide-formoterol 1 INHALER inhaler 2 puff inhalation BID fenofibrate 160 MG tablet 160 mg PO DAILY gabapentin 600 mg tablet 600 mg PO TID latanoprost 0.005 % drops 1 drp ophthalmic (eye) DAILY albuterol sulfate 2.5 mg /3 mL (0.083 %) solution for nebulization 2.5 mg continuous nebulization Q4H PRN (Reason: wheezing) Patient Comments: PT HAS NOT USED YET Referrals / Follow Up: Clarice Murillo MD [Primary Care Provider] - 03/19/25 9:00 am (APPOINTMENT WITH[facility]) Jf Mack DO [Med Staff - Active Staff] - 04/08/25 9:30 am (NEW PATIENT APPOINTMENT WITH [facility] Disposition Disposition (needs filled in before D/C Order can be placed): Home, Self Care Charges/Coding Visit Charges Inpatient E&M: 23635 Disch Hosp >30min 03/12/25 1730 <Electronically signed by Jaspal Prasad MD> Cosigner Signature (if applicable): CC: Dr. Clarice Murillo MD; Dr. Jaspal Prasad MD~ Signed [facility] Work Phone: Evaluation note* Diagnosis Hyperlipidemia, unspecified hyperlipidemia type- Primary [...] Vertebrobasilar artery syndrome documented in this encounter [facility] note* Diagnosis Tinea pedis of left foot Dermatophytosis of foot documented in this encounter [facility] note* Diagnosis Hyperlipidemia, unspecified hyperlipidemia type documented in this encounter [facility] note* Diagnosis Essential hypertension, benign- Primary Hyperlipidemia, [...] region and thigh documented in this encounter [facility] note* Diagnosis Acute exacerbation of chronic obstructive pulmonary disease (COPD) (HCC)- Primary Obstructive chronic bronchitis with exacerbation documented in this encounter [facility] note* Diagnosis Acute exacerbation of chronic obstructive pulmonary disease (COPD) (HCC) Obstructive chronic bronchitis with exacerbation documented in this encounter [facility] note* Diagnosis 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- Primary Lung nodules Other nonspecific abnormal finding of lung field Former cigarette smoker Personal history of tobacco use, presenting hazards to health documented in this encounter [facility] note* Diagnosis GERD without esophagitis Esophageal reflux documented in this encounter [facility] note* Diagnosis Acute pain of both shoulders- Primary Right renal mass Unspecified disorder of kidney and ureter Abdominal aortic aneurysm (AAA) without rupture, unspecified part (HCC) documented in this encounter [facility] note* Diagnosis Acute pain of both shoulders- Primary Right renal mass Unspecified disorder of kidney and ureter Abdominal aortic aneurysm (AAA) without rupture, unspecified part (HCC) documented in this encounter [facility] note* Diagnosis Bilateral shoulder pain, unspecified chronicity- Primary documented in this encounter [facility] note* Diagnosis Abdominal aortic aneurysm (AAA) without rupture, unspecified part (HCC) documented in this encounter [facility] note* Diagnosis Benign non-nodular prostatic hyperplasia with lower urinary tract symptoms- Primary Right renal mass Unspecified disorder of kidney and ureter documented in this encounter [facility] note* Diagnosis Chronic pain of both shoulders- Primary Pain in joint, shoulder region Acute pain of both shoulders Primary osteoarthritis of both shoulders [facility] Diagnosis BENIGN HYPERTENSION Essential hypertension, benign documented in this encounter [facility] note* Diagnosis Encounter for screening for cardiovascular disorders Screening for other and unspecified cardiovascular conditions [facility] Diagnosis Asthma with COPD with exacerbation (HCC)- Primary Chronic obstructive asthma with exacerbation Lung nodules Other nonspecific abnormal finding of lung field Former cigarette smoker Personal history of tobacco use, presenting hazards to health Abdominal aortic aneurysm (AAA) without rupture, unspecified part (HCC) [facility] Diagnosis Pre-operative examination- Primary Preoperative examination, [...] unspecified part (HCC) [facility] Diagnosis Procedure not carried out- Primary Procedure not carried out for other reasons [facility] Diagnosis Abdominal aortic aneurysm (AAA) without rupture, unspecified part (HCC)- Primary Peripheral arterial disease (HCC) Peripheral vascular disease, unspecified Primary hypertension Unspecified essential hypertension Elevated HDL Other symptoms involving cardiovascular system [facility] Diagnosis COPD with exacerbation (HCC)- Primary Obstructive chronic bronchitis with exacerbation Essential hypertension, benign Hyperlipidemia, unspecified hyperlipidemia type Abdominal aortic aneurysm (AAA) without rupture, unspecified part (HCC) GERD without esophagitis Esophageal reflux Acute pain of both shoulders Neuropathy Mononeuritis of unspecified site [facility] Diagnosis Hyperlipidemia, unspecified hyperlipidemia type [facility] Diagnosis 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) [facility] Diagnosis 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) [facility] Diagnosis Bilateral shoulder pain, unspecified chronicity [facility] Diagnosis Lung nodules Other nonspecific abnormal finding of lung field [facility] Diagnosis Asthma-COPD overlap syndrome- Primary Lung [...] of unspecified site [facility]* Diagnosis Bronchitis- Primary Bronchitis, not specified as acute or chronic GERD without esophagitis Esophageal reflux Essential hypertension, benign Abdominal aortic aneurysm (AAA) without rupture, unspecified part (HCC) Hyperlipidemia, unspecified hyperlipidemia type Neuropathy Mononeuritis of unspecified site Chronic obstructive pulmonary disease, unspecified COPD type (HCC) Acute pain of both shoulders [facility] Diagnosis BENIGN HYPERTENSION Essential hypertension, benign [facility]* Diagnosis Asthma-COPD overlap syndrome (HCC) [facility]* Diagnosis COPD with chronic bronchitis (HCC)- Primary Obstructive chronic bronchitis without exacerbation Right lower lobe lung mass Swelling, mass, or lump in chest ILD (interstitial lung disease) (HCC) Postinflammatory pulmonary fibrosis Former cigarette smoker Personal history of tobacco use, presenting hazards to health [facility] Diagnosis Essential hypertension, benign- Primary Hyperlipidemia, unspecified hyperlipidemia type Abdominal aortic aneurysm (AAA) without rupture, unspecified part (HCC) GERD without esophagitis Esophageal reflux Neuropathy Mononeuritis of unspecified site Chronic obstructive pulmonary disease, unspecified COPD type (HCC) Acute pain of both shoulders [facility]* Diagnosis Neuropathy- Primary Mononeuritis of unspecified site [facility] Diagnosis Pre-operative examination- Primary Preoperative examination, [...] single bacterial disease [facility]* Diagnosis Acute cough Pre-operative examination- Primary [...] Solitary pulmonary nodule documented [facility]* Diagnosis Pre-operative examination- Primary Preoperative examination, [...] unspecified hyperlipidemia type [facility] Diagnosis Pre-operative examination- Primary Preoperative examination, [...] and behavioral disorders [facility] Diagnosis Pre-operative examination- Primary Preoperative examination, [...] unspecified chronicity- Primary documented in this encounter [facility] note* Diagnosis Pre-operative examination- Primary Preoperative examination, [...] esophagitis Esophageal reflux documented in this encounter [facility] note* Diagnosis Pre-operative examination- Primary Preoperative examination, [...] hazards to health documented in this encounter [facility] note* Diagnosis Pre-operative examination- Primary Preoperative examination, [...] overlap syndrome (HCC) documented in this encounter [facility] note* Diagnosis Pre-operative examination- Primary Preoperative examination, [...] asthma with exacerbation documented in this encounter [facility] note* Diagnosis Pre-operative examination- Primary Preoperative examination, [...] Essential hypertension, benign [facility] Diagnosis Pre-operative examination- Primary Preoperative examination, [...] Pedal edema Edema [facility] Diagnosis Pre-operative examination- Primary Preoperative examination, [...] joint, shoulder region [facility] Diagnosis Pre-operative examination- Primary Preoperative examination, [...] osteoarthrosis, lower leg documented in this encounter [facility] note* Diagnosis Pre-operative examination- Primary Preoperative examination, [...] cerebral infarction Lung nodule Solitary pulmonary nodule Leg swelling- Primary Swelling of limb Rectal bleeding Hemorrhage of rectum and anus documented in this encounter [facility] note* Diagnosis Pre-operative examination- Primary Preoperative examination, [...] cerebral infarction Lung nodule Solitary pulmonary nodule Anemia, unspecified type- Primary documented in this encounter [facility] note* Diagnosis Pre-operative examination- Primary Preoperative examination, [...] cerebral infarction Lung nodule Solitary pulmonary nodule 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)- Primary Right lower lobe lung mass Swelling, mass, or lump in chest Former cigarette smoker Personal history of tobacco use, presenting hazards to health documented in this encounter [facility] Jf Mack [facility] Note Date/Time March 12, 2025 4: 26pm [facility] Medical Records Department [address] [place] [address] Progress Note 03/12/25 1624 MR#: [id number] Acct: [id number] Name: PACO WHITNEY Rep #:[id number] : 1935 89 From: Jf Mack DO PCP: Dr. Clarice Murillo MD Status:AD M IN Location: [place] [address] Progress Note Patient has been n.p.o. for colonoscopy today. He tolerated department any problems. Physical Exam Const alert, oriented x3, no apparent distress and healthy appearing General Appearance: cooperative GI normal to inspection, nondistended, normoactive bowel sounds, soft to palpation,non-tender and non-distended Percussion: normal to percussion Rectal Exam: deferred Assessment & Plan Assessment/Plan (1) Rectal bleed: PLAN: The patient will undergo colonoscopy to evaluate his lower GI tract. He was explained alternatives, risk and benefits include not withstanding bleeding,fracture, steps, perforation, need for surgery . He will have an ASA of 3. Visit Charges Inpatient E&M: 47127 Subs Hosp L2 03/12/251625 <Electronically signed by Jf Mack DO> Jf Mack DO Cosigner Signature (if applicable): CC: ~ Signed [facility] Work Phone: Reason for referral (narrative)* Diagnostic Procedure Only (Routine) - Pending Review Specialty Diagnoses / Procedures Referred By Contac t Referred To Contact XR IMAGING Diagnoses Bilateral shoulder pain, unspecified chronicity Procedures XR SHOULDER GENERAL 3V OR MORE AP/TRUE AP/OTHER RIGHT RADEX SHOULDER COMPLETE MINIMUM 2 VIEWS Fabio Noriega MD [address] [place] [address] Xr Imaging Referral ID Status Reason Start Date Expiration Date Visits Requested Visits Authorized [id number] Pending Review Auto-Generat ed Referral 10/06/2022 11/05/2023 1 1 * Diagnostic Procedure Only (Routine) - Pending Review Specialty Diagnoses / Procedures Referred By Isaura t Referred To Contact XR IMAGING Diagnoses Bilateral shoulder pain, unspecified chronicity Procedures XR SHOULDER GENERAL 3V OR MORE AP/TRUE AP/OTHER LEFT RADEX SHOULDER COMPLETE MINIMUM 2 VIEWS Fabio Noriega MD [address] [place] [address] Xr Imaging Referral ID Status Reason Start Date Expiration Date Visits Requested Visits Authorized [id number] Pending Review Auto-Generat ed Referral 10/06/2022 11/05/2023 1 1 [facility] for referral (narrative)* Diagnostic Procedure Only (Routine) - Closed Specialty Diagnoses / Procedures Referred By Jose Ramonac t Referred To Contact MOLECULAR & FUNCTIONAL IMAGING Diagnoses Encounter for screening for cardiovascular disorders Procedures NM CARDIAC PERF STRESS/PHARM MYOCARDIAL SPECT MULTIPLE STUDIES Eladio Pablo MD [address] [place] [address] Molecular & Functional Imaging [address] [place] [address] Referral ID Status Reason Start Date Expiration Date V isits Requested Visits Authorized [id number] Closed Auto-Generate d Referral 11/17/2022 07/17/2023 1 1 [facility] for referral (narrative)* Outpatient Procedure (Routine) - Pending Review Specialty Diagnoses / Procedures [facility] To [facility] Diagnoses Abdominal aortic aneurysm (AAA) without rupture, unspecified part (HCC) Procedures US ABD AORTA COMPLETE VAS LAB DUP-SCAN AORTA IVC ILIAC VASCL/BPGS COMPLETE Ibeth Paredes, GUN FITTER.BORDER MEASURER [address] [place] [address] [facility] [place] [address] [place] [address] Referral ID Status Reason Start Date Expiration Date Visits Requested Visits Authorized [id number] Pending Review Auto-Generat ed Referral 09/08/2023 03/07/2024 1 1 [facility] for referral (narrative)* Diagnostic Procedure Only (Routine) - Closed Specialty Diagnoses / Procedures Referred By Contac t Referred To Contact XR IMAGING Diagnoses Bilateral shoulder pain, unspecified chronicity Procedures XR SHOULDER GENERAL 3V OR MORE AP/TRUE AP/OTHER RIGHT RADEX SHOULDER COMPLETE MINIMUM 2 VIEWS Fabio Noriega MD [address] [place] [address] [place] [address] Referral ID Status Reason Start Date Expiration Date V isits Requested Visits Authorized [id number] Closed Auto-Generate d Referral 10/06/2022 11/05/2023 1 1 * Diagnostic Procedure Only (Routine) - Closed Specialty Diagnoses / Procedures Referred By Contac t Referred To Contact XR IMAGING Diagnoses Bilateral shoulder pain, unspecified chronicity Procedures XR SHOULDER GENERAL 3V OR MORE AP/TRUE AP/OTHER LEFT RADEX SHOULDER COMPLETE MINIMUM 2 VIEWS Fabio Noriega MD [address] [place] [address] [place] [address] Referral ID Status Reason Start Date Expiration Date V isits Requested Visits Authorized [id number] Closed Auto-Generate d Referral 10/06/2022 11/05/2023 1 1 [facility] for referral (narrative)* Diagnostic Procedure Only (Routine) - New Request Specialty Diagnoses / Procedures Referred By Contac t Referred To Contact XR IMAGING Diagnoses Bilateral shoulder pain, unspecified chronicity Procedures XR SHOULDER GENERAL 3V OR MORE AP/TRUE AP/OTHER RIGHT RADEX SHOULDER COMPLETE MINIMUM 2 VIEWS Fabio Noriega MD [address] [place] [address] [place] [address] Referral ID Status Reason Start Date Expiration Date Visits Requested Visits Authorized [id number] New Request Auto-Generat ed Referral 08/15/2024 09/14/2025 1 1 * Diagnostic Procedure Only (Routine) - New Request Specialty Diagnoses / Procedures Referred By Contac t Referred To Contact XR IMAGING Diagnoses Bilateral shoulder pain, unspecified chronicity Procedures XR SHOULDER GENERAL 3V OR MORE AP/TRUE AP/OTHER LEFT RADEX SHOULDER COMPLETE MINIMUM 2 VIEWS Fabio Noriega MD [address] [place] [address] [place] [address] Referral ID Status Reason Start Date Expiration Date Visits Requested Visits Authorized [id number] New Request Auto-Generat ed Referral 08/15/2024 09/14/2025 1 1 [facility] for visit Narrative* Diagnostic Procedure Only (Routine) - Closed Specialty Diagnoses / Procedures Referred By Contac t Referred To Contact MOLECULAR & FUNCTIONAL IMAGING Diagnoses Encounter for screening for cardiovascular disorders Procedures NM CARDIAC PERF STRESS/PHARM MYOCARDIAL SPECT MULTIPLE STUDIES Eladio Pablo MD [address] [place] [address] Molecular & Functional Imaging [address] [place] [address] Referral ID Status Reason Start Date Expiration Date V isits Requested Visits Authorized [id number] Closed Auto-Generate d Referral 11/17/2022 07/17/2023 1 1 [facility] for visit Narrative* Diagnostic Procedure Only (Routine) - Closed Specialty Diagnoses / Procedures Referred By Contac t Referred To Contact XR IMAGING Diagnoses Bilateral shoulder pain, unspecified chronicity Procedures XR SHOULDER GENERAL 3V OR MORE AP/TRUE AP/OTHER RIGHT RADEX SHOULDER COMPLETE MINIMUM 2 VIEWS Fabio Noriega MD [address] [place] [address] [place] [address] Referral ID Status Reason Start Date Expiration Date V isits Requested Visits Authorized [id number] Closed Auto-Generate d Referral 10/06/2022 11/05/2023 1 1 [facility] for visit Narrative* Diagnostic Procedure Only (Routine) - Closed Specialty Diagnoses / Procedures Referred By Contac t Referred To Contact XR IMAGING Diagnoses Chronic pain of both shoulders Procedures XR SHOULDER GENERAL 3V OR MORE AP/TRUE AP/OTHER LEFT RADEX SHOULDER COMPLETE MINIMUM 2 VIEWS Clarice Murillo MD [address] [place] [address] Phone: tel: fax: [place] [address] Referral ID Status Reason Start Date Expiration Date V isits Requested Visits Authorized [id number] Closed Auto-Generate d Referral 02/05/2025 03/07/2026 1 1 [facility] for visit Narrative* Diagnostic Procedure Only (Routine) - Closed Specialty Diagnoses / Procedures Referred By Contac t Referred To Contact XR IMAGING Diagnoses Primary osteoarthritis of right knee Procedures XR KNEE GENERAL 4V AP BOTH/PA BOTH/LAT/MERC RIGHT RADIOLOGIC EXAM KNEE COMPLETE 4/MORE VIEWS Ynes Souza PA-C [address] [place] [address] Phone: tel: fax: [place] [address] Referral ID Status Reason Start Date Expiration Date V isits Requested Visits Authorized [id number] Closed Auto-Generate d Referral 02/22/2025 03/24/2026 1 1 [facility] Summary Purpose Family History No Family History Records Found Relationship Condition Age at Onset Recorded Date/T angela Unknown Family History?Heart Disease Unknown June 28, 2018 5:20pm Family History?Hypertension, - Unknown June 28, 2018 5:20pm Family History?Hypertension, - Unknown April 11, 2019 10:29am Advance Directives No Advanced Directives Records FoundDocuments on File Type Date Recorded Patient Rn Gyn Expl anation Advance Directive(s) 11/15/2016 12:20 PM Advance Directive Response Recorded Date/ Time Do you have a Healthcare Power of Collision Mechanic? No November 08, 2024 9:03pm Advance Directives No March 10:29am Advance Directive Response Recorded Date/ Time Do you have a Healthcare Power of Collision Mechanic? No November 08, 2024 9:03pm Do you have a Healthcare Power of Collision Mechanic? No March 10, 2025 4:21pm Advance Directives No March 10:29am Advance Directive Response Recorded Date/ Time Do you have a Healthcare Power of Collision Mechanic? Yes March 10, 2025 8:18pm Name of Medical Power of Collision Mechanic daughter March 10, 2025 8:18pm Advance Directives No March 10:29am Documents on File Type Date Recorded Patient Rn Gyn Expl anation Advance Directive(s) 03/28/2025 3:38 PM Health Concerns Infection Onset Date Last Indicated Resolved Time COVID-19 Rule-Out 06/08/2022 06/08/2022 06/09/2022 5:29 AM EST Reason for Referral Specialty Diagnoses / Procedures Referred By Contac t Referred To Contact CT IMAGING Diagnoses Lung nodules Procedures CT CHEST WO IVCON DIAGNOSTIC COMPUTED TOMOGRAPHY THORAX W/O CNTRSFrancia Clifton MD [address] [place] [address] Ct Imaging Referral ID Status Reason Start Date Expiration Date Visits Requested Visits Authorized [id number] Pending Review Auto-Generat ed Referral 08/05/2023 1 1 Specialty Diagnoses / Procedures Referred By Contac t Referred To Contact [facility] Diagnoses SOB (shortness of breath) Procedures SPIROMETRY WITH DILATOR IF OBSTRUCTED BRNCDILAT RSPSE SPMTRY PRE&POST-BRNCDILAT ADMFrancia Chase MD [address] [place] [address] Respiratory [place] [address] [place] [address] Referral ID Status Reason Start Date Expiration Date V isits Requested Visits Authorized [id number] Closed Auto-Generate d Referral 07/06/2022 08/05/2023 1 1 Specialty Diagnoses / Procedures Referred By Contac t Referred To Contact Orthopedics Diagnoses Acute pain of both shoulders Procedures CONSULT TO ORTHOPAEDICS OFFICE/OUTPATIENT NEW HIGH MDM 60-74 MINUTES Karla Campuzano APRN.BORDER MEASURER [address] [place] [address] Referral ID Status Reason Start Date Expiration Date Visits Requested Visits Authorized [id number] Pending Review PCP Requested Referral 09/29/2022 09/29/2023 1 1 Specialty Diagnoses / Procedures Referred By Contac t Referred To Contact Urology Diagnoses Right renal mass Procedures CONSULT TO UROLOGY OFFICE/OUTPATIENT NEW HIGH MDM 60-74 MINUTES Karla Campuzano APRN.BORDER MEASURER [address] [place] [address] Referral ID Status Reason Start Date Expiration Date Visits Requested Visits Authorized [id number] Pending Review PCP Requested Referral 09/29/2022 09/29/2023 1 1 Specialty Diagnoses / Procedures Referred By Contac t Referred To Contact Vascular Surgery Diagnoses Abdominal aortic aneurysm (AAA) without rupture, unspecified part (HCC) Procedures CONSULT TO VASCULAR SURGERY OFFICE/OUTPATIENT NEW HIGH MDM 60-74 MINUTES Karla Campuzano APRN.BORDER MEASURER [address] [place] [address] Referral ID Status Reason Start Date Expiration Date Visits Requested Visits Authorized [id number] Pending Review PCP Requested Referral 09/29/2022 09/29/2023 1 1 Specialty Diagnoses / Procedures Referred By Contac t Referred To Contact CT IMAGING Diagnoses 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) Procedures CT ABD/PEL WO IVCON CT ABD & PELVIS W/O CONTRAST Briana Nolen, DO [address] [place] [address] Ct Imaging [place] [address] Referral ID Status Reason Start Date Expiration Date V isits Requested Visits Authorized [id number] Closed Auto-Generate d Referral 09/30/2022 07/17/2023 1 1 Specialty Diagnoses / Procedures Referred By Contac t Referred To Contact CT IMAGING Diagnoses 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) Procedures CTA ABD/PEL WO/W IVCON CT ANGIO ABD&PLVIS CNTRST MTRL W/WO CNTRST Eladio Mckoy MD [address] [place] [address] [place] [address] Referral ID Status Reason Start Date Expiration Date V isits Requested Visits Authorized [id number] Closed Auto-Generate d Referral 02/25/2023 07/17/2023 1 1 Specialty Diagnoses / Procedures Referred By Contac t Referred To Contact CT IMAGING Diagnoses Lung nodules Procedures CT CHEST WO IVCON DIAGNOSTIC COMPUTED TOMOGRAPHY THORAX W/O Francia Arredondo MD [address] [place] [address] [place] [address] Referral ID Status Reason Start Date Expiration Date V isits Requested Visits Authorized [id number] Closed Auto-Generat ed Referral Patient Cleared - [...] 0.4 mg, INTRAVENOUS, ONCE, 1 dose, On 11/29/22 at 1200, Give 0.4 mg (5 mL) [...] 2024 8:3 2pm Overweight (BMI 25.0-29.9) November 08, 025 8:32pm Swelling of joint of left wrist November 082024 8:32pm Chief Complaint Admit Date LEFT WRIST CELLULITIS WITH POSSIBLE SEPT IC November 08, 2024 8:32pm LEFT WRIST CELLULITIS WITH POSSIBLE SEPT IC November 10, 2024 9:38am LEFT WRIST CELLULITIS WITH POSSIBLE SEPT IC November 10, 2024 9:47am ED FOLLOW UP November 13, 2024 1:3 8pm LOWER GI BLEED March 10, 2025 7: 22pm Reason for Visit Admit Date Dehydration November 08, 2024 8:3 2pm Gout November 08, 2024 8:3 2pm History of hypertension November 08, 2024 8:32pm Left wrist pain November 08, 2024 8:3 2pm Overweight (BMI 25.0-29.9) November 08, 2 025 8:32pm Swelling of joint of left wrist November 082024 8:32pm Cellulitis November 08, 2024 8:3 2pm Swelling of joint of left wrist November 132024 1:38pm Elevated serum creatinine March 10, 2 025 7:22pm Lower GI bleed March 10, 2025 7: 22pm Rectal bleed March 10, 2025 7: 22pm History of gastrointestinal bleeding Feb ust 2024 7:22pm Chief Complaint Admit Date ED FOLLOW UP November 13, 2024 1:3 8pm LOWER GI BLEED March 10, 2025 7: 22pm LOWER GI BLEED March 11, 2025 12 :25pm LOWER GI BLEED March 12, 2025 11 :34am LOWER GI BLEED March 12, 2025 4: 24pm Reason for Visit Admit Date Swelling of joint of left wrist November 132024 1:38pm Elevated serum creatinine March 10, 2 025 7:22pm Lower GI bleed March 10, 2025 7: 22pm Rectal bleed March 10, 2025 7: 22pm History of gastrointestinal bleeding Feb ust 2024 7:22pm Additional Source Comments (unrecognized sect ion and content) No Status Records FoundNo Status Records FoundNo Status Records FoundNo Status Records FoundNo Status Records FoundNo Status Records Found INFORMATION SOURCE (unrecogn ized section and content) DATE CREATED AUTHOR [facility] DATE CREATED AUTHOR AUTHOR'S ORGANIZ ATION 12/18/2018 [facility] DATE CREATED AUTHOR AUTHOR'S ORGANIZ ATION 11/29/2022 [facility] DATE CREATED AUTHOR AUTHOR'S ORGANIZ ATION 02/01/2023 [facility] DATE CREATED AUTHOR AUTHOR'S ORGANIZ ATION 04/06/2025 [facility] DATE CREATED AUTHOR AUTHOR'S ORGANIZ ATION 05/01/2025 [facility] Source Comments (unrecognize d section and content) In the event this informatio n is protected by the Federal Confidentiality of Alcohol and Drug Abuse Patient Records regulations: The Federal rules restrict any use of the information to criminally investigate or prosecute any alcohol or drug abuse patient.[facility] the event this information is protected by the Federal Confidentiality of Alcohol and Drug Abuse Patient Records regulations: The Federal rules restrict any use of the information to criminally investigate or prosecute any alcohol or drug abuse patient.[facility] HospitalIn the event this information is protected by the Federal Confidentiality of Alcohol and Drug Abuse Patient Records regulations: The Federal rules restrict any use of the information to criminally investigate or prosecute any alcohol or drug abuse patient.[facility] Hospital[facility] the event this information is protected by the Federal Confidentiality of Alcohol and Drug Abuse Patient Records regulations: The Federal rules restrict any use of the information to criminally investigate or prosecute any alcohol or drug abuse patient.[facility] HospitalIn the event this information is protected by the Federal Confidentiality of Alcohol and Drug Abuse Patient Records regulations: The Federal rules restrict any use of the information to criminally investigate or prosecute any alcohol or drug abuse patient.[facility] HospitalIn the event this information is protected by the Federal Confidentiality of Alcohol and Drug Abuse Patient Records regulations: The Federal rules restrict any use of the information to criminally investigate or prosecute any alcohol or drug abuse patient.[facility] HospitalIn the event this information is protected by the Federal Confidentiality of Alcohol and Drug Abuse Patient Records regulations: The Federal rules restrict any use of the information to criminally investigate or prosecute any alcohol or drug abuse patient.[facility] HospitalIn the event this information is protected by the Federal Confidentiality of Alcohol and Drug Abuse Patient Records regulations: The Federal rules restrict any use of the information to criminally investigate or prosecute any alcohol or drug abuse patient.[facility] HospitalIn the event this information is protected by the Federal Confidentiality of Alcohol and Drug Abuse Patient Records regulations: The Federal rules restrict any use of the information to criminally investigate or prosecute any alcohol or drug abuse patient.[facility] HospitalIn the event this information is protected by the Federal Confidentiality of Alcohol and Drug Abuse Patient Records regulations: The Federal rules restrict any use of the information to criminally investigate or prosecute any alcohol or drug abuse patient.[facility] HospitalIn the event this information is protected by the Federal Confidentiality of Alcohol and Drug Abuse Patient Records regulations: The Federal rules restrict any use of the information to criminally investigate or prosecute any alcohol or drug abuse patient.[facility] HospitalIn the event this information is protected by the Federal Confidentiality of Alcohol and Drug Abuse Patient Records regulations: The Federal rules restrict any use of the information to criminally investigate or prosecute any alcohol or drug abuse patient.[facility] HospitalIn the event this information is protected by the Federal Confidentiality of Alcohol and Drug Abuse Patient Records regulations: The Federal rules restrict any use of the information to criminally investigate or prosecute any alcohol or drug abuse patient.[facility] HospitalIn the event this information is protected by the Federal Confidentiality of Alcohol and Drug Abuse Patient Records regulations: The Federal rules restrict any use of the information to criminally investigate or prosecute any alcohol or drug abuse patient.[facility] HospitalIn the event this information is protected by the Federal Confidentiality of Alcohol and Drug Abuse Patient Records regulations: The Federal rules restrict any use of the information to criminally investigate or prosecute any alcohol or drug abuse patient.[facility] HospitalIn the event this information is protected by the Federal Confidentiality of Alcohol and Drug Abuse Patient Records regulations: The Federal rules restrict any use of the information to criminally investigate or prosecute any alcohol or drug abuse patient.[facility] HospitalIn the event this information is protected by the Federal Confidentiality of Alcohol and Drug Abuse Patient Records regulations: The Federal rules restrict any use of the information to criminally investigate or prosecute any alcohol or drug abuse patient.[facility] HospitalIn the event this information is protected by the Federal Confidentiality of Alcohol and Drug Abuse Patient Records regulations: The Federal rules restrict any use of the information to criminally investigate or prosecute any alcohol or drug abuse patient.[facility] HospitalIn the event this information is protected by the Federal Confidentiality of Alcohol and Drug Abuse Patient Records regulations: The Federal rules restrict any use of the information to criminally investigate or prosecute any alcohol or drug abuse patient.[facility] HospitalIn the event this information is protected by the Federal Confidentiality of Alcohol and Drug Abuse Patient Records regulations: The Federal rules restrict any use of the information to criminally investigate or prosecute any alcohol or drug abuse patient.[facility] HospitalIn the event this information is protected by the Federal Confidentiality of Alcohol and Drug Abuse Patient Records regulations: The Federal rules restrict any use of the information to criminally investigate or prosecute any alcohol or drug abuse patient.[facility] HospitalIn the event this information is protected by the Federal Confidentiality of Alcohol and Drug Abuse Patient Records regulations: The Federal rules restrict any use of the information to criminally investigate or prosecute any alcohol or drug abuse patient.[facility] HospitalIn the event this information is protected by the Federal Confidentiality of Alcohol and Drug Abuse Patient Records regulations: The Federal rules restrict any use of the information to criminally investigate or prosecute any alcohol or drug abuse patient.[facility] HospitalIn the event this information is protected by the Federal Confidentiality of Alcohol and Drug Abuse Patient Records regulations: The Federal rules restrict any use of the information to criminally investigate or prosecute any alcohol or drug abuse patient.[facility] HospitalIn the event this information is protected by the Federal Confidentiality of Alcohol and Drug Abuse Patient Records regulations: The Federal rules restrict any use of the information to criminally investigate or prosecute any alcohol or drug abuse patient.[facility] HospitalIn the event this information is protected by the Federal Confidentiality of Alcohol and Drug Abuse Patient Records regulations: The Federal rules restrict any use of the information to criminally investigate or prosecute any alcohol or drug abuse patient.[facility] HospitalIn the event this information is protected by the Federal Confidentiality of Alcohol and Drug Abuse Patient Records regulations: The Federal rules restrict any use of the information to criminally investigate or prosecute any alcohol or drug abuse patient.[facility] HospitalIn the event this information is protected by the Federal Confidentiality of Alcohol and Drug Abuse Patient Records regulations: The Federal rules restrict any use of the information to criminally investigate or prosecute any alcohol or drug abuse patient.[facility] HospitalIn the event this information is protected by the Federal Confidentiality of Alcohol and Drug Abuse Patient Records regulations: The Federal rules restrict any use of the information to criminally investigate or prosecute any alcohol or drug abuse patient.[facility] HospitalIn the event this information is protected by the Federal Confidentiality of Alcohol and Drug Abuse Patient Records regulations: The Federal rules restrict any use of the information to criminally investigate or prosecute any alcohol or drug abuse patient.[facility] HospitalIn the event this information is protected by the Federal Confidentiality of Alcohol and Drug Abuse Patient Records regulations: The Federal rules restrict any use of the information to criminally investigate or prosecute any alcohol or drug abuse patient.[facility] HospitalIn the event this information is protected by the Federal Confidentiality of Alcohol and Drug Abuse Patient Records regulations: The Federal rules restrict any use of the information to criminally investigate or prosecute any alcohol or drug abuse patient.[facility] HospitalIn the event this information is protected by the Federal Confidentiality of Alcohol and Drug Abuse Patient Records regulations: The Federal rules restrict any use of the information to criminally investigate or prosecute any alcohol or drug abuse patient.[facility] HospitalIn the event this information is protected by the Federal Confidentiality of Alcohol and Drug Abuse Patient Records regulations: The Federal rules restrict any use of the information to criminally investigate or prosecute any alcohol or drug abuse patient.[facility] HospitalIn the event this information is protected by the Federal Confidentiality of Alcohol and Drug Abuse Patient Records regulations: The Federal rules restrict any use of the information to criminally investigate or prosecute any alcohol or drug abuse patient.[facility] HospitalIn the event this information is protected by the Federal Confidentiality of Alcohol and Drug Abuse Patient Records regulations: The Federal rules restrict any use of the information to criminally investigate or prosecute any alcohol or drug abuse patient.[facility] HospitalIn the event this information is protected by the Federal Confidentiality of Alcohol and Drug Abuse Patient Records regulations: The Federal rules restrict any use of the information to criminally investigate or prosecute any alcohol or drug abuse patient.[facility] HospitalIn the event this information is protected by the Federal Confidentiality of Alcohol and Drug Abuse Patient Records regulations: The Federal rules restrict any use of the information to criminally investigate or prosecute any alcohol or drug abuse patient.[facility] HospitalIn the event this information is protected by the Federal Confidentiality of Alcohol and Drug Abuse Patient Records regulations: The Federal rules restrict any use of the information to criminally investigate or prosecute any alcohol or drug abuse patient.[facility] HospitalIn the event this information is protected by the Federal Confidentiality of Alcohol and Drug Abuse Patient Records regulations: The Federal rules restrict any use of the information to criminally investigate or prosecute any alcohol or drug abuse patient.[facility] HospitalIn the event this information is protected by the Federal Confidentiality of Alcohol and Drug Abuse Patient Records regulations: The Federal rules restrict any use of the information to criminally investigate or prosecute any alcohol or drug abuse patient.[facility] HospitalIn the event this information is protected by the Federal Confidentiality of Alcohol and Drug Abuse Patient Records regulations: The Federal rules restrict any use of the information to criminally investigate or prosecute any alcohol or drug abuse patient.[facility] HospitalIn the event this information is protected by the Federal Confidentiality of Alcohol and Drug Abuse Patient Records regulations: The Federal rules restrict any use of the information to criminally investigate or prosecute any alcohol or drug abuse patient.[facility] HospitalIn the event this information is protected by the Federal Confidentiality of Alcohol and Drug Abuse Patient Records regulations: The Federal rules restrict any use of the information to criminally investigate or prosecute any alcohol or drug abuse patient.[facility] HospitalIn the event this information is protected by the Federal Confidentiality of Alcohol and Drug Abuse Patient Records regulations: The Federal rules restrict any use of the information to criminally investigate or prosecute any alcohol or drug abuse patient.[facility] HospitalIn the event this information is protected by the Federal Confidentiality of Alcohol and Drug Abuse Patient Records regulations: The Federal rules restrict any use of the information to criminally investigate or prosecute any alcohol or drug abuse patient.[facility] HospitalIn the event this information is protected by the Federal Confidentiality of Alcohol and Drug Abuse Patient Records regulations: The Federal rules restrict any use of the information to criminally investigate or prosecute any alcohol or drug abuse patient.[facility] HospitalIn the event this information is protected by the Federal Confidentiality of Alcohol and Drug Abuse Patient Records regulations: The Federal rules restrict any use of the information to criminally investigate or prosecute any alcohol or drug abuse patient.[facility] HospitalIn the event this information is protected by the Federal Confidentiality of Alcohol and Drug Abuse Patient Records regulations: The Federal rules restrict any use of the information to criminally investigate or prosecute any alcohol or drug abuse patient.[facility] HospitalIn the event this information is protected by the Federal Confidentiality of Alcohol and Drug Abuse Patient Records regulations: The Federal rules restrict any use of the information to criminally investigate or prosecute any alcohol or drug abuse patient.[facility] HospitalIn the event this information is protected by the Federal Confidentiality of Alcohol and Drug Abuse Patient Records regulations: The Federal rules restrict any use of the information to criminally investigate or prosecute any alcohol or drug abuse patient.[facility] HospitalIn the event this information is protected by the Federal Confidentiality of Alcohol and Drug Abuse Patient Records regulations: The Federal rules restrict any use of the information to criminally investigate or prosecute any alcohol or drug abuse patient.[facility] HospitalIn the event this information is protected by the Federal Confidentiality of Alcohol and Drug Abuse Patient Records regulations: The Federal rules restrict any use of the information to criminally investigate or prosecute any alcohol or drug abuse patient.[facility] HospitalIn the event this information is protected by the Federal Confidentiality of Alcohol and Drug Abuse Patient Records regulations: The Federal rules restrict any use of the information to criminally investigate or prosecute any alcohol or drug abuse patient.[facility] HospitalIn the event this information is protected by the Federal Confidentiality of Alcohol and Drug Abuse Patient Records regulations: The Federal rules restrict any use of the information to criminally investigate or prosecute any alcohol or drug abuse patient.[facility] HospitalIn the event this information is protected by the Federal Confidentiality of Alcohol and Drug Abuse Patient Records regulations: The Federal rules restrict any use of the information to criminally investigate or prosecute any alcohol or drug abuse patient.[facility] HospitalIn the event this information is protected by the Federal Confidentiality of Alcohol and Drug Abuse Patient Records regulations: The Federal rules restrict any use of the information to criminally investigate or prosecute any alcohol or drug abuse patient.[facility] HospitalIn the event this information is protected by the Federal Confidentiality of Alcohol and Drug Abuse Patient Records regulations: The Federal rules restrict any use of the information to criminally investigate or prosecute any alcohol or drug abuse patient.[facility] HospitalIn the event this information is protected by the Federal Confidentiality of Alcohol and Drug Abuse Patient Records regulations: The Federal rules restrict any use of the information to criminally investigate or prosecute any alcohol or drug abuse patient.[facility] HospitalIn the event this information is protected by the Federal Confidentiality of Alcohol and Drug Abuse Patient Records regulations: The Federal rules restrict any use of the information to criminally investigate or prosecute any alcohol or drug abuse patient.[facility] HospitalIn the event this information is protected by the Federal Confidentiality of Alcohol and Drug Abuse Patient Records regulations: The Federal rules restrict any use of the information to criminally investigate or prosecute any alcohol or drug abuse patient.[facility] HospitalIn the event this information is protected by the Federal Confidentiality of Alcohol and Drug Abuse Patient Records regulations: The Federal rules restrict any use of the information to criminally investigate or prosecute any alcohol or drug abuse patient.[facility] HospitalIn the event this information is protected by the Federal Confidentiality of Alcohol and Drug Abuse Patient Records regulations: The Federal rules restrict any use of the information to criminally investigate or prosecute any alcohol or drug abuse patient.[facility] HospitalIn the event this information is protected by the Federal Confidentiality of Alcohol and Drug Abuse Patient Records regulations: The Federal rules restrict any use of the information to criminally investigate or prosecute any alcohol or drug abuse patient.[facility] HospitalIn the event this information is protected by the Federal Confidentiality of Alcohol and Drug Abuse Patient Records regulations: The Federal rules restrict any use of the information to criminally investigate or prosecute any alcohol or drug abuse patient.[facility] HospitalIn the event this information is protected by the Federal Confidentiality of Alcohol and Drug Abuse Patient Records regulations: The Federal rules restrict any use of the information to criminally investigate or prosecute any alcohol or drug abuse patient.[facility] HospitalIn the event this information is protected by the Federal Confidentiality of Alcohol and Drug Abuse Patient Records regulations: The Federal rules restrict any use of the information to criminally investigate or prosecute any alcohol or drug abuse patient.[facility] HospitalIn the event this information is protected by the Federal Confidentiality of Alcohol and Drug Abuse Patient Records regulations: The Federal rules restrict any use of the information to criminally investigate or prosecute any alcohol or drug abuse patient.[facility] HospitalIn the event this information is protected by the Federal Confidentiality of Alcohol and Drug Abuse Patient Records regulations: The Federal rules restrict any use of the information to criminally investigate or prosecute any alcohol or drug abuse patient.[facility] HospitalIn the event this information is protected by the Federal Confidentiality of Alcohol and Drug Abuse Patient Records regulations: The Federal rules restrict any use of the information to criminally investigate or prosecute any alcohol or drug abuse patient.[facility] HospitalIn the event this information is protected by the Federal Confidentiality of Alcohol and Drug Abuse Patient Records regulations: The Federal rules restrict any use of the information to criminally investigate or prosecute any alcohol or drug abuse patient.[facility] HospitalIn the event this information is protected by the Federal Confidentiality of Alcohol and Drug Abuse Patient Records regulations: The Federal rules restrict any use of the information to criminally investigate or prosecute any alcohol or drug abuse patient.[facility] HospitalIn the event this information is protected by the Federal Confidentiality of Alcohol and Drug Abuse Patient Records regulations: The Federal rules restrict any use of the information to criminally investigate or prosecute any alcohol or drug abuse patient.[facility] HospitalIn the event this information is protected by the Federal Confidentiality of Alcohol and Drug Abuse Patient Records regulations: The Federal rules restrict any use of the information to criminally investigate or prosecute any alcohol or drug abuse patient.[facility] HospitalIn the event this information is protected by the Federal Confidentiality of Alcohol and Drug Abuse Patient Records regulations: The Federal rules restrict any use of the information to criminally investigate or prosecute any alcohol or drug abuse patient.[facility] HospitalIn the event this information is protected by the Federal Confidentiality of Alcohol and Drug Abuse Patient Records regulations: The Federal rules restrict any use of the information to criminally investigate or prosecute any alcohol or drug abuse patient.[facility] HospitalIn the event this information is protected by the Federal Confidentiality of Alcohol and Drug Abuse Patient Records regulations: The Federal rules restrict any use of the information to criminally investigate or prosecute any alcohol or drug abuse patient.[facility] HospitalIn the event this information is protected by the Federal Confidentiality of Alcohol and Drug Abuse Patient Records regulations: The Federal rules restrict any use of the information to criminally investigate or prosecute any alcohol or drug abuse patient.[facility] HospitalIn the event this information is protected by the Federal Confidentiality of Alcohol and Drug Abuse Patient Records regulations: The Federal rules restrict any use of the information to criminally investigate or prosecute any alcohol or drug abuse patient.[facility] HospitalIn the event this information is protected by the Federal Confidentiality of Alcohol and Drug Abuse Patient Records regulations: The Federal rules restrict any use of the information to criminally investigate or prosecute any alcohol or drug abuse patient.[facility] HospitalIn the event this information is protected by the Federal Confidentiality of Alcohol and Drug Abuse Patient Records regulations: The Federal rules restrict any use of the information to criminally investigate or prosecute any alcohol or drug abuse patient.[facility] HospitalIn the event this information is protected by the Federal Confidentiality of Alcohol and Drug Abuse Patient Records regulations: The Federal rules restrict any use of the information to criminally investigate or prosecute any alcohol or drug abuse patient.[facility] HospitalIn the event this information is protected by the Federal Confidentiality of Alcohol and Drug Abuse Patient Records regulations: The Federal rules restrict any use of the information to criminally investigate or prosecute any alcohol or drug abuse patient.[facility] HospitalIn the event this information is protected by the Federal Confidentiality of Alcohol and Drug Abuse Patient Records regulations: The Federal rules restrict any use of the information to criminally investigate or prosecute any alcohol or drug abuse patient.[facility] HospitalIn the event this information is protected by the Federal Confidentiality of Alcohol and Drug Abuse Patient Records regulations: The Federal rules restrict any use of the information to criminally investigate or prosecute any alcohol or drug abuse patient.[facility] HospitalIn the event this information is protected by the Federal Confidentiality of Alcohol and Drug Abuse Patient Records regulations: The Federal rules restrict any use of the information to criminally investigate or prosecute any alcohol or drug abuse patient.[facility] HospitalIn the event this information is protected by the Federal Confidentiality of Alcohol and Drug Abuse Patient Records regulations: The Federal rules restrict any use of the information to criminally investigate or prosecute any alcohol or drug abuse patient.[facility] HospitalIn the event this information is protected by the Federal Confidentiality of Alcohol and Drug Abuse Patient Records regulations: The Federal rules restrict any use of the information to criminally investigate or prosecute any alcohol or drug abuse patient.[facility] HospitalIn the event this information is protected by the Federal Confidentiality of Alcohol and Drug Abuse Patient Records regulations: The Federal rules restrict any use of the information to criminally investigate or prosecute any alcohol or drug abuse patient.[facility] HospitalIn the event this information is protected by the Federal Confidentiality of Alcohol and Drug Abuse Patient Records regulations: The Federal rules restrict any use of the information to criminally investigate or prosecute any alcohol or drug abuse patient.[facility] HospitalIn the event this information is protected by the Federal Confidentiality of Alcohol and Drug Abuse Patient Records regulations: The Federal rules restrict any use of the information to criminally investigate or prosecute any alcohol or drug abuse patient.[facility] HospitalIn the event this information is protected by the Federal Confidentiality of Alcohol and Drug Abuse Patient Records regulations: The Federal rules restrict any use of the information to criminally investigate or prosecute any alcohol or drug abuse patient.[facility] HospitalIn the event this information is protected by the Federal Confidentiality of Alcohol and Drug Abuse Patient Records regulations: The Federal rules restrict any use of the information to criminally investigate or prosecute any alcohol or drug abuse patient.[facility] Reason for Visit (unrecogniz ed section [...] Onset Date Comments community monitoring outreach 08/19/2022 CD M-Telephonic outreach Reason Comments Refill Request Reason Comments Pain (Shoulder Pain) Bilateral Reason Comments Referral Request Reason Onset Date Comments community monitoring outreach 10/21/2022 CD M-Telephonic outreach Reason Comments question on CT incidental finding Reason Comments Follow Up Specialty Diagnoses / Procedures Referred By Isaura dickey Referred To Contact Vascular Surgery / [facility] Diagnoses Abdominal aortic aneurysm (AAA) without rupture, unspecified part (HCC) Procedures CONSULT TO VASCULAR SURGERY OFFICE/OUTPATIENT NEW HIGH MDM 60-74 MINUTES Karla Campuzano, GUN FITTER.BORDER MEASURER [address] [place] [address] [place] [facility] [address] [address] Referral ID Status Reason Start Date Expiration Date Visits Requested Visits Authorized [id number] Pending Review PCP Requested Referral 09/29/2022 09/29/2023 1 1 Reason Comments Patient Question Reason Comments Established Patient Renal mass Specialty Diagnoses / Procedures Referred By Contac t Referred To Contact Urology Diagnoses Right renal mass Procedures CONSULT TO UROLOGY OFFICE/OUTPATIENT NEW HIGH MDM 60-74 MINUTES Karla Campuzano APRN.BORDER MEASURER [address] [place] [address] Referral ID Status Reason Start Date Expiration Date Visits Requested Visits Authorized [id number] Pending Review PCP Requested Referral 09/29/2022 09/29/2023 1 1 Reason Comments Pain New Specialty Diagnoses / Procedures Referred By Contac t Referred To Contact Orthopedics Diagnoses Acute pain of both shoulders Procedures CONSULT TO ORTHOPAEDICS OFFICE/OUTPATIENT NEW HIGH MDM 60-74 MINUTES Karla Campuzano APRN.CNP [address] [place] [address] Referral ID Status Reason Start Date Expiration Date Visits Requested Visits Authorized [id number] Pending Review PCP Requested Referral 09/29/2022 09/29/2023 [...] CT ABD & PELVIS W/O CONTRAST Briana Nolen, DO [address] [place] [address] [place] [address] Referral ID Status Reason Start Date Expiration Date V isits Requested Visits Authorized [id number] Closed Auto-Generate d Referral 09/30/2022 07/17/2023 1 1 Specialty Diagnoses / Procedures Referred By Contac t Referred To Contact CT IMAGING Diagnoses 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) Procedures CTA ABD/PEL WO/W IVCON CT ANGIO ABD&PLVIS CNTRST MTRL W/WO CNTRST Eladio Mckoy MD [address] [place] [address] [place] [address] Referral ID Status Reason Start Date Expiration Date V isits Requested Visits Authorized [id number] Closed Auto-Generate d Referral 02/25/2023 07/17/2023 1 1 Specialty Diagnoses / Procedures Referred By Contac t Referred To Contact CT IMAGING Diagnoses Lung nodules Procedures CT CHEST WO IVCON DIAGNOSTIC COMPUTED TOMOGRAPHY THORAX W/O CNTRST Francia Luna MD [address] [place] [address] [place] [address] Referral ID Status Reason Start Date Expiration Date V isits Requested Visits Authorized [id number] Closed Auto-Generat ed Referral Patient Cleared - [...] Exam Reason Onset Date Comments Results 02/08/2025 Reason Comments Acute Visit Bilateral lower leg edema Reason Onset Date Comments Results 03/28/2025 Reason Comments Established Patient Follow-Up 6 month COPD Care Teams (unrecognized sec tion and content) Trade Clerk Relationship Specialty Start Date End Date Clarice Murillo MD [address] [place], [place] [phone] PCP - General 02/07/09 Marianne Balderas RN Senior Quality Manager 03/19/21 Manuel Bravo MD [address] [phone] Electrical Fitter Pulmonary and Critical Care Medicine 06/01/21 Trade Clerk Relationship Specialty Start Date End Date Clarice Murillo MD [address] [place], [place] [address] PCP - General 02/07/09 Marianne Balderas RN [address] [place], [place] [phone] Senior Quality Manager 03/19/21 Manuel Bravo MD [address] [phone] Electrical Fitter Pulmonary and Critical Care Medicine 06/01/21 Trade Clerk Relationship Specialty Start Date End Date Clarice Murillo MD [address] [place] [address] PCP - General 02/07/09 Marianne Balderas, RUBEN [address] [place], [place] [phone] Senior Quality Manager 03/19/21 Manuel Bravo MD [address] [phone] Electrical Fitter Pulmonary and Critical Care Medicine 06/01/21 Trade Clerk Relationship Specialty Start Date End Date Clarice Murillo MD [address] [place] [address] PCP - General 02/07/09 Marianne Balderas RN [address] [place] [address] Senior Quality Manager 03/19/21 Manuel Bravo MD [address] [phone] Electrical Fitter Pulmonary and Critical Care Medicine 06/01/21 Trade Clerk Relationship Specialty Start Date End Date Clarice Murillo MD [address] [place] [address] PCP - General 02/07/09 Marianne Balderas RN [address] [place] [address] Senior Quality Manager 03/19/21 Manuel rBavo MD [address] [phone] Electrical Fitter Pulmonary and Critical Care Medicine 06/01/21 Trade Clerk Relationship Specialty Start Date End Date Clarice Murillo MD [address] [place] [address] PCP - General 02/07/09 Marianne Balderas RN [address] [facility], [place] [phone] Senior Quality Manager 03/19/21 Manuel Bravo MD [address] [address] Electrical Fitter Pulmonary and Critical Care Medicine 06/01/21 Trade Clerk Relationship Specialty Start Date End Date Clarice Murillo MD [address] [place] [address] PCP - General 02/07/09 Marianne Balderas RN [address] [place], [place] [phone] Senior Quality Manager 03/19/21 Manuel Bravo MD [address] [phone] Electrical Fitter Pulmonary and Critical Care Medicine 06/01/21 Trade Clerk Relationship Specialty Start Date End Date Clarice Murillo MD [address] [place] [address] PCP - General 02/07/09 Manuel Bravo MD [address] [address] Electrical Fitter Pulmonary and Critical Care Medicine 06/01/21 Adriel Vides RN [address] [place], [place] [phone] Senior Quality Manager Family Medicine 03/19/21 Trade Clerk Relationship Specialty Start Date End Date Clarice Murillo MD [address] [place], [place] [id number] PCP - General 02/07/09 Manuel Bravo MD [address] [address] Electrical Fitter Pulmonary and Critical Care Medicine 06/01/21 Adriel Vides RN [address] [place] [address] Senior Quality Manager Family Medicine 03/19/21 Trade Clerk Relationship Specialty Start Date End Date Clarice Murillo MD [address] [place], [place] 728931 [phone] PCP - General 02/07/09 Manuel Bravo MD [address] [address] Electrical Fitter Pulmonary and Critical Care Medicine 06/01/21 Adriel Vides RN [address] [place], [place] [phone] Senior Quality Manager [facility] 03/19/21 Trade Clerk Relationship Specialty Start Date End Date Clarice Murillo MD [address] [place] [address] PCP - General 02/07/09 Manuel Bravo MD [address] [phone] Electrical Fitter Pulmonary and Critical Care Medicine 06/01/21 Adriel Vides RN [address] [place], [place] [phone] Senior Quality Manager Family [facility] 05/19/22 Trade Clerk Relationship Specialty Start Date End Date Clarice Murillo MD [address] [place] [address] PCP - General 02/07/09 Manuel Bravo MD [address] [id number] Electrical Fitter Pulmonary and Critical Care Medicine 06/01/21 Adriel Vides RN [address] [place], [place] [phone] Senior Quality Manager [facility] 05/19/22 Trade Clerk Relationship Specialty Start Date End Date Clarice Murillo MD [address] [place] [address] PCP - General 02/07/09 Manuel Bravo MD [address] [id number] Electrical Fitter Pulmonary and Critical Care Medicine 06/01/21 Adriel Vides RN [address] [place], [place] [phone] Senior Quality Manager Family [facility] 05/19/22 Trade Clerk Relationship Specialty Start Date End Date Clarice Murillo MD [address] [place] [address] PCP - General 02/07/09 Manuel Bravo MD [address] [phone] Electrical Fitter Pulmonary and Critical Care Medicine 06/01/21 Adriel Vides RN [address] [place], [place] [phone] Senior Quality Manager Family Medicine 05/19/22 Trade Clerk Relationship Specialty Start Date End Date Clarice Murillo MD [address] [place], [place] 145361 [phone] PCP - General 02/07/09 Manuel Bravo MD [facility] [address] [phone] Electrical Fitter Pulmonary and Critical Care Medicine 06/01/21 Adriel Vides RN [address] [place] [address] Senior Quality Manager Family Medicine 05/19/22 Trade Clerk Relationship Specialty Start Date End Date Clarice Murillo MD [address] [place], [place] 936471 PCP - General 02/07/09 Manuel Bravo MD [address] [id number] Electrical Fitter Pulmonary and Critical Care Medicine 06/01/21 Adriel Vides RN [address] [place], [place] [phone] Senior Quality Manager Family Medicine 05/19/22 Trade Clerk Relationship Specialty Start Date End Date Clarice Murillo MD [address] [place], [place] [id number] PCP - General 02/07/09 Manuel Bravo MD [facility] [address] [id number] Electrical Fitter Pulmonary and Critical Care Medicine 06/01/21 Adriel Vides RN [address] [place] [address] Senior Quality Manager Family Medicine 05/19/22 Trade Clerk Relationship Specialty Start Date End Date Clarice Murillo MD [address] [place] [address] PCP - General 02/07/09 Manuel Bravo MD [address] [phone] Electrical Fitter Pulmonary and Critical Care Medicine 06/01/21 Adriel Vides RN [address] [place], [place] [phone] Senior Quality Manager Family Medicine 05/19/22 Trade Clerk Relationship Specialty Start Date End Date Clarice Murillo MD [address] [place], [place] 632741 PCP - General 02/07/09 aMnuel Bravo MD [address] [phone] Electrical Fitter Pulmonary and Critical Care Medicine 06/01/21 Adriel Vides RN [address] [place], [place] [phone] Senior Quality Manager Family [facility] 05/19/22 Trade Clerk Relationship Specialty Start Date End Date Clarice Murillo MD [address] [place] [address] PCP - General 02/07/09 Manuel Bravo MD [address] [phone] Electrical Fitter Pulmonary and Critical Care Medicine 06/01/21 Adriel Vides RN [address] [place], [place] [phone] Senior Quality Manager Family Medicine 05/19/22 Trade Clerk Relationship Specialty Start Date End Date Clarice Murillo MD [address] [place] [address] PCP - General 02/07/09 Manuel Bravo MD [address] [phone] Electrical Fitter Pulmonary and Critical Care Medicine 06/01/21 Adriel Vides RN [address] [place], [place] [phone] Senior Quality Manager Family Medicine 05/19/22 Trade Clerk Relationship Specialty Start Date End Date Clarice Murillo MD [address] [place] [address] PCP - General 02/07/09 Manuel Bravo MD [address] [address] Electrical Fitter Pulmonary and Critical Care Medicine 06/01/21 Adriel Vides RN [address] [place], [place] [phone] Senior Quality Manager Family [facility] 05/19/22 Trade Clerk Relationship Specialty Start Date End Date Clarice Murillo MD [address] [place] [address] PCP - General 02/07/09 Manuel Bravo MD [address] [address] Electrical Fitter Pulmonary and Critical Care Medicine 06/01/21 Adriel Vides RN [address] [place], [place] [phone] Senior Quality Manager [facility] 05/19/22 Trade Clerk Relationship Specialty Start Date End Date Clarice Murillo MD [address] [place], [place] [id number] [phone] PCP - General 02/07/09 Manuel Bravo MD [address] [address] Electrical Fitter Pulmonary and Critical Care Medicine 06/01/21 Adriel Vides RN [address] [place] [address] Senior Quality Manager [facility] 05/19/22 Trade Clerk Relationship Specialty Start Date End Date Clarice Murillo MD [address] [place], [place] 739829 [phone] PCP - General 02/07/09 Manuel Bravo MD [address] [address] Electrical Fitter Pulmonary and Critical Care Medicine 06/01/21 Adriel Vides RN [address] [place], [place] [phone] Senior Quality Manager [facility] 05/19/22 Trade Clerk Relationship Specialty Start Date End Date Clarice Murillo MD [address] [place] [address] PCP - General 02/07/09 Manuel Bravo MD [address] [address] Electrical Fitter Pulmonary and Critical Care Medicine 06/01/21 Adriel Vides RN [address] [place], [place] [phone] Senior Quality Manager [facility] 05/19/22 Trade Clerk Relationship Specialty Start Date End Date Clarice Murillo MD [address] [place] [address] PCP - General 02/07/09 Mnauel Bravo MD [address] [phone] Electrical Fitter Pulmonary and Critical Care Medicine 06/01/21 Adriel Vides RN [address] [place], [place] [phone] Senior Quality Manager Family [facility] 05/19/22 Trade Clerk Relationship Specialty Start Date End Date Clarice Murillo MD [address] [place] [address] PCP - General 02/07/09 Manuel Bravo MD [address] [phone] Electrical Fitter Pulmonary and Critical Care Medicine 06/01/21 Adriel Vides RN [address] [place] [address] Senior Quality Manager Family Medicine 05/19/22 Trade Clerk Relationship Specialty Start Date End Date Clarice Murillo MD [address] [place] [address] PCP - General 02/07/09 Manuel Bravo MD [address] [address] Electrical Fitter Pulmonary and Critical Care Medicine 06/01/21 Adriel Vides RN [address] [place], [place] [phone] Senior Quality Manager Family Medicine 05/19/22 Trade Clerk Relationship Specialty Start Date End Date Clarice Murillo MD [address] [place] [address] PCP - General 02/07/09 Manuel Bravo MD [address] [address] Electrical Fitter Pulmonary and Critical Care Medicine 06/01/21 Adriel Vides RN [address] [place], [place] [phone] Senior Quality Manager Family Medicine 05/19/22 Trade Clerk Relationship Specialty Start Date End Date Clarice Murillo MD [address] [place] [address] PCP - General 02/07/09 Manuel Bravo MD [address] [phone] Electrical Fitter Pulmonary and Critical Care Medicine 06/01/21 Adriel Vides RN [address] [place] [address] Senior Quality Manager Family Medicine 05/19/22 Trade Clerk Relationship Specialty Start Date End Date Clarice Murillo MD [address] [place] [address] PCP - General 02/07/09 Manuel Bravo MD [address] [address] Electrical Fitter Pulmonary and Critical Care Medicine 06/01/21 Adriel Vides RN [address] [place], [place] [phone] Senior Quality Manager Family Medicine 05/19/22 Trade Clerk Relationship Specialty Start Date End Date Clarice Murillo MD [address] [place] [address] PCP - General 02/07/09 Manuel Bravo MD [address] [phone] Electrical Fitter Pulmonary and Critical Care Medicine 06/01/21 Adriel Vides RN [address] [place] [address] Senior Quality Manager Family Medicine 05/19/22 Trade Clerk Relationship Specialty Start Date End Date Clarice Murillo MD [address] [place] [address] PCP - General 02/07/09 Manuel Bravo MD [address] [phone] Electrical Fitter Pulmonary and Critical Care Medicine 06/01/21 Adriel Vides RN [address] [place] [phone] Senior Quality Manager Family Medicine 05/19/22 Trade Clerk Relationship Specialty Start Date End Date Clarice Murillo MD [address] [place], [place] 646661 PCP - General 02/07/09 Manuel Bravo MD [address] [phone] Electrical Fitter Pulmonary and Critical Care Medicine 06/01/21 Adriel Vides RN [address] [place], [place] [phone] Senior Quality Manager Family Medicine 05/19/22 Trade Clerk Relationship Specialty Start Date End Date Clarice Murillo MD [address] [place] [address] PCP - General 02/07/09 Manuel Bravo MD [address] [address] Electrical Fitter Pulmonary and Critical Care Medicine 06/01/21 Adriel Vides RN [address] [place] [address] Senior Quality Manager Family Medicine 05/19/22 Trade Clerk Relationship Specialty Start Date End Date Clarice Murillo MD [address] [place] [address] PCP - General 02/07/09 Manuel Bravo MD [address] [phone] Electrical Fitter Pulmonary and Critical Care Medicine 06/01/21 Adriel Vides RN [address] [place], [place] 1507631 Senior Quality Manager Family [facility] 05/19/22 Trade Clerk Relationship Specialty Start Date End Date Clarice Murillo MD [address] [place] [address] PCP - General 02/07/09 Manuel Bravo MD [address] [phone] Electrical Fitter Pulmonary and Critical Care Medicine 06/01/21 Adriel Vides RN [address] [place] [address] Senior Quality Manager Family Medicine 05/19/22 Trade Clerk Relationship Specialty Start Date End Date Clarice Murillo MD [address] [place] [address] PCP - General 02/07/09 Manuel Bravo MD [address] [address] Electrical Fitter Pulmonary and Critical Care Medicine 06/01/21 Adriel Vides RN [address] [place], [place] [phone] Senior Quality Manager Family Medicine 05/19/22 Trade Clerk Relationship Specialty Start Date End Date Clarice Murillo MD [address] [place] [address] PCP - General 02/07/09 Manuel Bravo MD [facility] [address] [phone] Electrical Fitter Pulmonary and Critical Care Medicine 06/01/21 Adriel Vides RN [address] [place] [address] Senior Quality Manager Family Medicine 05/19/22 Trade Clerk Relationship Specialty Start Date End Date Clarice Murillo MD [address] [place] [address] PCP - General 02/07/09 Manuel Bravo MD [facility] [address] [address] Electrical Fitter Pulmonary and Critical Care Medicine 06/01/21 Adriel Vides RN [address] [place] [address] Senior Quality Manager Family Medicine 05/19/22 Trade Clerk Relationship Specialty Start Date End Date Clarice Murillo MD [address] [place] [address] PCP - General 02/07/09 Manuel Bravo MD [address] [address] Electrical Fitter Pulmonary and Critical Care Medicine 06/01/21 Adriel Vides RN [address] [place], [place] [phone] Senior Quality Manager [facility] 05/19/22 Trade Clerk Relationship Specialty Start Date End Date Clarice Murillo MD [address] [place] [address] PCP - General 02/07/09 Manuel Bravo MD [address] [phone] Electrical Fitter Pulmonary and Critical Care Medicine 06/01/21 Adriel Vides RN [address] [place] [address] Senior Quality Manager Family Medicine 05/19/22 Trade Clerk Relationship Specialty Start Date End Date Clarice Murillo MD [address] [place] [address] PCP - General 02/07/09 Manuel Bravo MD [address] [address] Electrical Fitter Pulmonary and Critical Care Medicine 06/01/21 Adriel Vides RN [address] [place], [place] [phone] Senior Quality Manager [facility] 05/19/22 Trade Clerk Relationship Specialty Start Date End Date Clarice Murillo MD [address] [place] [address] PCP - General 02/07/09 Manuel Bravo MD [address] [phone] Electrical Fitter Pulmonary and Critical Care Medicine 06/01/21 Adriel Vides RN [address] [place], [place] [phone] Senior Quality Manager Family Medicine 05/19/22 Trade Clerk Relationship Specialty Start Date End Date Clarice Murillo MD [address] [place] [address] PCP - General 02/07/09 Manuel Bravo MD [address] [address] Electrical Fitter Pulmonary and Critical Care Medicine 06/01/21 Adriel Vides RN [address] [place] [address] Senior Quality Manager Family Medicine 05/19/22 Trade Clerk Relationship Specialty Start Date End Date Clarice Murillo MD [address] [place] [address] PCP - General 02/07/09 Manuel Bravo MD [address] [phone] Electrical Fitter Pulmonary and Critical Care Medicine 06/01/21 Adriel Vides RN [address] [place], [place] [phone] Senior Quality Manager Family Medicine 05/19/22 Trade Clerk Relationship Specialty Start Date End Date Clarice Murillo MD [address] [place] [address] PCP - General 02/07/09 Manuel Bravo MD [address] [phone] Electrical Fitter Pulmonary and Critical Care Medicine 06/01/21 Adriel Vides RN [address] [place] [address] Senior Quality Manager Family Medicine 05/19/22 Trade Clerk Relationship Specialty Start Date End Date Clarice Murillo MD [address] [place] [address] PCP - General 02/07/09 Manuel Bravo MD [address] [phone] Electrical Fitter Pulmonary and Critical Care Medicine 06/01/21 Adriel Vides RN [address] [place] [phone] Senior Quality Manager Family Medicine 05/19/22 Trade Clerk Relationship Specialty Start Date End Date Clarice Murillo MD [address] [place], [place] 997251 PCP - General 02/07/09 Manuel Bravo MD [address] [phone] Electrical Fitter Pulmonary and Critical Care Medicine 06/01/21 Adriel Vides RN [address] [place] [phone] Senior Quality Manager Family Medicine 05/19/22 Trade Clerk Relationship Specialty Start Date End Date Clarice Murillo MD [address] [place] [address] PCP - General 02/07/09 Manuel Bravo MD [address] [phone] Electrical Fitter Pulmonary and Critical Care Medicine 06/01/21 Karla Campuzano, GUN FITTER.BORDER MEASURER [address] [place] [address] Commodities Trader Family Medicine 06/24/24 Sid Frank, ROSS.BORDER MEASURER [address] [place] [address] Commodities Trader Family Medicine 07/03/24 Trade Clerk Relationship Specialty Start Date End Date Clarice Murillo MD [address] [place] [address] PCP - General 02/07/09 Manuel Bravo MD [address] [address] Electrical Fitter Pulmonary and Critical Care Medicine 06/01/21 Karla Campuzano GUN FITTER.BORDER MEASURER [address] [place] [address] Commodities Trader Family Medicine 06/24/24 Sid Frank APRN.BORDER MEASURER [address] [place] [address] Commodities Trader Family Medicine 07/03/24 Trade Clerk Relationship Specialty Start Date End Date Clarice Murillo MD [address] [place] [address] PCP - General 02/07/09 Manuel Bravo MD [address] [address] Electrical Fitter Pulmonary and Critical Care Medicine 06/01/21 Karla Campuzano GUN FITTER.BORDER MEASURER [address] [place] [address] Commodities Trader Family Medicine 06/24/24 Sid Frank APRN.BORDER MEASURER [address] [place] [address] Commodities Trader Family Medicine 07/03/24 Trade Clerk Relationship Specialty Start Date End Date Clarice Murillo MD [address] [place] [address] PCP - General 02/07/09 Manuel Bravo MD [address] [address] Electrical Fitter Pulmonary and Critical Care Medicine 06/01/21 Karla Campuzano GUN FITTER.BORDER MEASURER [address] [address] Commodities Trader [facility] 06/24/24 Sid Frank GUN FITTER.BORDER MEASURER [address] [place] [address] [facility] 07/03/24 Trade Clerk Relationship Specialty Start Date End Date Clarice Murillo MD [address] [place] [address] PCP - General 02/07/09 Manuel Bravo MD [address] [address] Electrical Fitter Pulmonary and Critical Care Medicine 06/01/21 Karla Campuzano APRN.BORDER MEASURER [address] [address] [facility] 06/24/24 Sid Frank GUN FITTER.BORDER MEASURER [address] [place] [address] [facility] 07/03/24 Team Status: Active Member Role Status [...] Start: November 10, 2024 Dr. Eduardo Hartley , Emergency Provider Active S tart: November 10, 2024 Dr. Evelyn Doss , Admit Provider Active Start: November 10, 2024 Dr. Evelyn Doss , Other Provider Active Start: November 10, 2024 Dr. Riky Li MD Attending Provider Active Start: November 10, 2024 Dr. Riky Li MD Other Provider Active Sta rt: November 10, 2024 Trade Clerk Relationship Specialty Start Date End Date Clarice Murillo MD [address] [place] [address] PCP - General 02/07/09 Manuel Bravo MD [address] [phone] Electrical Fitter Pulmonary and Critical Care Medicine 06/01/21 Karla Campuzano, GUN FITTER.BORDER MEASURER [address] [address] Commodities Trader Family Medicine 06/24/24 Sid Frank GUN FITTER.BORDER MEASURER [address] [place] [address] Commodities Trader [facility] 07/03/24 Trade Clerk Relationship Specialty Start Date End Date Clarice Murillo MD [address] [place] [address] PCP - General 02/07/09 Manuel Bravo MD [address] [address] Electrical Fitter Pulmonary and Critical Care Medicine 06/01/21 Sid Frank GUN FITTER.BORDER MEASURER [address] [place] [address] Commodities Trader Family Medicine 07/03/24 Trade Clerk Relationship Specialty Start Date End Date Clarice Murillo MD [address] [place] [address] PCP - General 02/07/09 Manuel Bravo MD [address] [address] Electrical Fitter Pulmonary and Critical Care Medicine 06/01/21 Sid Frank APRN.BORDER MEASURER [address] [place] [address] [facility] 07/03/24 Trade Clerk Relationship Specialty Start Date End Date Clarice Murillo MD [address] [place] [address] PCP - General 02/07/09 Manuel Bravo MD [address] [address] Electrical Fitter Pulmonary and Critical Care Medicine 06/01/21 Sid Frank APRN.BORDER MEASURER [address] [place] [address] [facility] 07/03/24 Trade Clerk Relationship Specialty Start Date End Date Clarice Murillo MD [address] [place] [address] PCP - General 02/07/09 Manuel Bravo MD [address] [address] Electrical Fitter Pulmonary and Critical Care Medicine 06/01/21 Sid Frank GUN FITTER.BORDER MEASURER [address] [place] [address] Commodities Trader Family Medicine 07/03/24 Team Status: Active Member Role/Relationship Status Dates Dr. Clarice Murillo MD Primary Care Provider Active Team Status: Inactive Member Role/Relationship Status Dates Dr. Clarice Murillo MD Primary [...] November 10, 2024 Team Status: Active Member Role/Relationship Status Dates Dr. Clarice Murillo MD Primary [...] November 10, 2024 Team Status: Active Member Role/Relationship Status Dates Dr. Clarice Murillo MD Primary [...] Provider Active Sta rt: November 10, 2024 Team Status: Inactive Member Role/Relationship Status Dates Dr. Clarice Murillo MD Primary Care Provider Active Start: November 13, 2024 End: November 13, 2024 Dr. Clarice Murillo MD Referring Provider Active Start: November 13, 2024 End: November 13, 2024 Dr. Dennis Rocha MD Attending Provider Active Start: November 13, 2024 End: November 13, 2024 Team Status: Active Member Role/Relationship Status Dates Dr. Clarice Murillo MD Primary Care Provider Active Start: March 10, 2025 Arturo Naranjo MD Emergency Provider Active Star t: March 10, 2025 Dr. Miller Vides DO Admit Provider Active Start: March 10, 2025 Dr. Miller Vides DO Attending Provider Active Start: March 10, 2025 Team Status: Inactive Member Role/Relationship Status Dates Dr. Clarice Murillo MD Primary Care Provider Active Start: November 13, 2024 End: November 13, 2024 Dr. Clarice Murillo MD Referring Provider Active Start: November 13, 2024 End: November 13, 2024 Dr. Dennis Rocha MD Attending Provider Active Start: November 13, 2024 End: November 13, 2024 Team Status: Inactive Member Role/Relationship Status Dates Dr. Clarice Murillo MD Primary Care Provider Active Start: March 10, 2025 End: March 12, 2025 Arturo Naranjo MD Emergency Provider Active Star t: March 10, 2025 End: March 12, 2025 Dr. Miller Vides DO Admit Provider Active Start: March 10, 2025 End: March 12, 2025 Dr. Miller Vides DO Other Provider Active Start: March 10, 2025 End: March 12, 2025 Dr. Jaspal Prasad MD Attending Provider Active Start: March 10, 2025 End: March 12, 2025 Dr. Riky Li MD Other Provider Active Sta rt: March 10, 2025 End: March 12, 2025 Dr. Jf Mack DO Other Provider Active St art: March 10, 2025 End: March 12, 2025 CHRIS Correia Other Provider Active Start : March 10, 2025 End: March 12, 2025 CHRIS Zaidi Other Provider Active St art: March 10, 2025 End: March 12, 2025 OLI Levine Other Provider Active Star t: March 10, 2025 End: March 12, 2025 Team Status: Active Member Role/Relationship Status Dates Dr. Clarice Murillo MD Primary Care Provider Active Start: March 11, 2025 Arturo Naranjo MD Emergency Provider Active Star t: March 11, 2025 Dr. Miller Vides , Admit Provider Active Start: March 11, 2025 Dr. Miller Vides DO Other Provider Active Start: March 11, 2025 Dr. Jaspal Prasad MD Attending Provider Active Start: March 11, 2025 Dr. Jaspal Prasad MD Other Provider Active Start: March 11, 2025 Dr. Riky Li MD Other Provider Active Sta rt: March 11, 2025 Dr. Jf Mack DO Other Provider Active St art: March 11, 2025 CHRIS Correia Other Provider Active Start : March 11, 2025 CHRIS Zaidi Other Provider Active St art: March 11, 2025 OLI Levine Other Provider Active Star t: March 11, 2025 Team Status: Active Member Role/Relationship Status Dates Dr. Clarice Murillo MD Primary Care Provider Active Start: March 12, 2025 Arturo Naranjo MD Emergency Provider Active Star t: March 12, 2025 Dr. Miller Vides , Admit Provider Active Start: March 12, 2025 Dr. Miller Vides DO Other Provider Active Start: March 12, 2025 Dr. Jaspal Prasad MD Attending Provider Active Start: March 12, 2025 Dr. Jaspal Prasad MD Other Provider Active Start: March 12, 2025 Dr. Riky Li MD Other Provider Active Sta rt: March 12, 2025 Dr. Jf Mack DO Other Provider Active St art: March 12, 2025 CHRIS Correia Other Provider Active Start : March 12, 2025 CHRIS Zaidi Other Provider Active St art: March 12, 2025 OLI Levine Other Provider Active Star t: March 12, 2025 Team Status: Active Member Role/Relationship Status Dates Dr. Clarice Murillo MD Primary Care Provider Active Start: March 12, 2025 Arturo Naranjo MD Emergency Provider Active Star t: March 12, 2025 Dr. Miller Vides , DO Admit Provider Active Start: March 12, 2025 Dr. Miller Vides , DO Other Provider Active Start: March 12, 2025 Dr. Jaspal Prasad MD Other Provider Active Start: March 12, 2025 Dr. Riky Li MD Other Provider Active Sta rt: March 12, 2025 Dr. Jf Mack DO Attending Provider Active Start: March 12, 2025 Dr. Jf Mack DO Other Provider Active St art: March 12, 2025 Alessia Samuels NP-C Other Provider Active Start : March 12, 2025 Samaria Carlin NP-C Other Provider Active St art: March 12, 2025 OLI Levine Other Provider Active Star t: March 12, 2025 Trade Clerk Relationship Specialty Start Date End Date Clarice Murillo MD [address] [place] [address] PCP - General 02/07/09 Manuel Bravo MD [address] [phone] Electrical Fitter Pulmonary and Critical Care Medicine 06/01/21 Sid Frank, ROSS.BORDER MEASURER [address] [place] [address] Commodities Trader Family [facility] 07/03/24 Trade Clerk Relationship Specialty Start Date End Date Clarice Murillo MD [address] [place] [address] PCP - General 02/07/09 Manuel Bravo MD [address] [phone] Electrical Fitter Pulmonary and Critical Care Medicine 06/01/21 Sid Frank APRN.BORDER MEASURER [address] [place], [place] [id number] [facility] 07/03/24 Trade Clerk Relationship Specialty Start Date End Date Clarice Murillo MD [address] [facility] [facility] [place] [id number] PCP - General 02/07/09 Manuel Bravo MD [address] [id number] [employer] Pulmonary and Critical Care Medicine 06/01/21 Sid Frank APRN.BORDER MEASURER [address] [facility] [place] [id number] [facility] 07/03/24 FOR RECORDS PERTAINING TO PATIENTS WHO [...] BE BASED ON THE PRIMARY CLINICAL RECORDS. [facility] [employer] provides no warranty or guarantee of the accuracy or completeness of information in this document.
--- NOTE | 2025-05-19 15:00 | CT_ITS ---
PROCEDURE: ABDOMEN/PELVIS W IV CONT ONLY 05/19/2025 REASON FOR EXAM: UPPER ABDOMINAL PAIN TECHNIQUE: Procedure Code: [id number] Modality: CT Procedure: ABDOMEN/PELVIS W IV CONT ONLY Coronal and Sagittal reconstruction series were provided. CONTRAST: Isovue 370 VOLUME: 98 mL One or more dose reduction techniques were used (e.g., Automated exposure control, adjustment of the mA and/or kV according to patient size, use of iterative reconstruction technique. RADIATION DOSE SUMMARY: DLP: 1108.7 mGycm COMPARISON: CT abdomen pelvis March 10, 2025. CT abdomen pelvis June 2018. FINDINGS: Normal heart size. 2.8 cm nodule in the medial right lower lobe, unchanged from 2018 suggesting a benign process such as pulmonary hamartoma. Mild interstitial lung disease, unchanged from more recent exam. Liver is unremarkable. Cholecystectomy. No biliary dilatation. Pancreas and spleen are unremarkable. 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 The right adrenal is unremarkable. Lower right renal pole cortical lesion measuring 4.1 cm craniocaudally, previously 2.1 cm in 2018. This is suspicious for a slow growing renal cell carcinoma. A few other right renal cysts are noted. There is filling defect in the right renal vein and hepatic IVC suggesting tumor thrombus. Retrospectively, this is similar to February 2025. Regional aortocaval and retrocaval adenopathy suspicious for metastatic carcinoma. Greatest short axis diameter of a lymph node is 2.8 cm. These lymph nodes are new from 2018, unchanged from most recent. Small cortical and parapelvic left renal cysts. Left kidney otherwise unremarkable. Previous EVAR, unchanged. 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 Colonic diverticulosis without diverticulitis. No bowel obstruction. Normal appendix. 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 Retrospectively, it measured 2.6 cm in 2018. Extensive degenerative changes of the spine. No fracture or osseous metastasis. CT/Abdomen/Pelvis W IV Cont ONLY IMPRESSION: 1. 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 Regional adenopathy in the aortocaval and retrocaval regions. Retrospectively, findings are similar to February 2025. The right renal neoplasm currently measures 4.1 cm, previously measured 2.1 cm in 2018. 2. No superimposed acute findings in the abdomen or pelvis. Colonic diverticu losis without diverticulitis. Reading Location: [facility] [place]
[2025-05-19 15:40] LABS: AST(SGOT) 33 U/L (<=37); Alanine Aminotransfer ALT/SGPT 17 U/L (<=46); Albumin, Serum 3.4 g/dL (3.4-4.8); Alkaline Phosphatase 81 U/L (40-129); Bilirubin, Direct 0.54 mg/dL (0.00-0.30); Globulin 2.6 g/dL (2.2-4.2); Lipase 46 U/L (13-75)
[2025-05-19 16:14] LABS: Troponin T High Sens 2 HR 64 ng/L (<=22)
--- NOTE | 2025-05-19 16:57 | PCM.HP.STD ---
HPI - General HPI Narrative PACO WHITNEY, is a 89 M who presents to the hospital complaining of chest pain that started on Tuesday. He states that has been intermittent and nothing specifically brings it on though he has noticed that if he tries to take a deep breath he will have pain on his left side. He does not have a previous cardiac history. In the ER he was indicating that his pain may also been a little bit in the abdominal area so CT scan of his abdomen and pelvis is pending though on my read I do not see anything new, he does have a known renal mass, lipase was normal. He does have slightly elevated high-sensitivity troponins, the initial troponin was 67 and subsequent troponin was 64. He does not have any new changes on his EKG, which is nonischemic. With intervention in the emergency room with an aspirin and nitro his pain is resolved. He denies any shortness of breath or lightheadedness. [facility] Medical History (Updated 05/19/25 @ 17:[address] Mervin Blanco, DO) Mass of right lung Mass of right kidney Cirrhosis GI bleed Former smoker Chest pain Hypertension Migraines Stroke/cerebrovascular accident PAD (peripheral artery disease) Renal cyst Vertebrobasilar artery syndrome Diverticulosis Kidney stone Lung nodule AAA (abdominal aortic aneurysm) Bilateral carotid artery stenosis Asthma Arthritis Diverticular hemorrhage Lower GI bleed BPH (benign prostatic hyperplasia) GERD (gastroesophageal reflux disease) Peripheral neuropathy History of gastrointestinal bleeding Hx-TIA (transient ischemic attack) Chronic obstructive lung disease HTN (hypertension), benign Home Medications ?Medication ?Instructions ?Recorded ?Last Taken ?Type albuterol sulfate 90 mcg/actuation 2 puff inhalation Q4H PRN Sob &/Or 07/05/14 03/10/25 History aerosol inhaler Wheezing ramipril 10 mg capsule 10 mg PO DAILY BP 07/05/14 03/10/25 History pantoprazole 40 mg tablet,delayed 40 mg PO DAILY gerd 08/21/14 11/08/24 History release cholecalciferol (vitamin D3) 25 5,000 unit PO TID Supplement 11/23/14 03/10/25 History mcg (1,000 unit) tablet tamsulosin 0.4 mg capsule 0.4 mg PO QHS Prostate 11/23/14 03/09/25 20:40 History budesonide-formoterol HFA 160 2 puff inhalation BID Breathing 06/28/18 03/10/25 08:39 History mcg-4.5 mcg/actuation aerosol inhaler fenofibrate 160 mg tablet 160 mg PO DAILY cholesterol 04/10/19 03/10/25 History albuterol sulfate 2.5 mg/3 mL 2.5 mg continuous nebulization Q4H 11/08/24 Unknown History (0.083 %) solution for nebulization PRN wheezing gabapentin 600 mg tablet 600 mg PO TID neuropathy 11/08/24 03/10/25 02:40 History latanoprost 0.005 % eye drops 1 drp ophthalmic (eye) DAILY 11/08/24 03/10/25 History glaucoma furosemide 20 mg tablet 20 mg PO QODAY 05/19/25 Unknown History Allergy/AdvReac Type Severity Reaction Status Date / Time cerivastatin sodium (From Allergy Severe Other Verified 05/19/25 12:58 Baycol) gemfibrozil (From Lopid) AdvReac Other Verified 05/19/25 12:58 meperidine (From Demerol) AdvReac Other Verified 05/19/25 12:58 Surgical History Total knee replacement status History of colonoscopy (~03/2019) History of esophagogastroduodenoscopy (EGD) (~03/2019) History of back surgery History of detached retina repair Status post vasectomy History of cholecystectomy History of left knee replacement History of back surgery Social History household members: none Smoking Status: Former smoker ROS Constitutional Constitutional: Denies chills, fatigue, fever(s) or malaise Eyes Eyes: Denies blurry vision ENT HEENT: Denies headache(s) or nasal discharge Cardiovascular Cardiovascular: Reports chest pain; Denies dyspnea on exertion or syncope Respiratory/Chest Respiratory/Chest: Denies cough, shortness of breath at rest or shortness of breath with exertion Gastrointestinal Gastrointestinal: Denies constipation, diarrhea, nausea or vomiting Genitourinary Genitourinary: Denies dysuria Neurologic Neurologic: Denies focal weakness, numbness or tremor(s) Psychiatric Psychiatric: Denies anxiety or depression Vital Signs Vital Signs Vital Signs: 05/19/25 12:59 05/19/25 14:00 05/19/25 14:11 Temperature 97.8 F Temperature Source Temporal Pulse Rate 75 81 65 Respiratory Rate 18 Blood Pressure 102/58 L 115/72 115/72 Blood Pressure Mean 72 86 Pulse Ox 98 98 Oxygen Delivery Method Room Air Oxygen Flow Rate (L/min) 05/19/25 14:16 05/19/25 15:00 05/19/25 16:00 Temperature Temperature Source Pulse Rate 61 62 Respiratory Rate Blood Pressure 120/63 130/55 H Blood Pressure Mean 82 80 Pulse Ox Oxygen Delivery Method Room Air Oxygen Flow Rate (L/min) 94 05/19/25 16:54 Temperature Temperature Source Pulse Rate 71 Respiratory Rate Blood Pressure 129/63 H Blood Pressure Mean Pulse Ox Oxygen Delivery Method Oxygen Flow Rate (L/min) Weight Weight: 189 lb Body Mass Index (BMI) 29.6 Physical Exam Narrative General: Alert, Oriented x3, Cooperative, No apparent distress HEENT: Atraumatic, PERRLA, EOMI, Normocephalic Oral: Moist Mucosa Neck: Supple, No JVD Lungs: Diminished, Normal air movement, No rhonchi, No wheeze, No rales Cardiovascular: Regular rate, Regular Rhythm, Normal S1, Normal S2, No murmurs Abdomen: Soft, Non Tender, Non-Distended, No Hepato-splenomegaly Extremities: No edema, Capillary Refill Less than 3 Seconds Skin: No rashes, No breakdown Musculoskeletal: No Tenderness to Palpation of Joints or Extremities Neurological: No focal neurological deficits, moves all extremities Psych/Mental Status: Normal Affect, Appropriate Results Lab / Micro Data 05/19/25 13:25 05/19/25 13:25 Labs: Laboratory Results - last 24 hr 05/19/25 13:25: WBC 11.8 H, RBC 3.72 L, Hgb 12.0 L, Hct 36.1 L, MCV 97.0 H, MCH 32.3 H, MCHC 33.2, RDW Std Deviation 51.2 H, RDW Coeff of Nohemi 14.3, Plt Count 187, MPV 9.4, Immature Gran % (Auto) 0.300, Neut % (Auto) 75.0 H, Lymph % (Auto) 11.3 L, [facility] % (Auto) 12.8 H, Eos % (Auto) 0.2, Baso % (Auto) 0.4, Absolute Neuts (auto) 8.8 H, Absolute Lymphs (auto) 1.33, Nucleated RBC % 0, Sodium 136, Potassium 4.3, Chloride 103, Carbon Dioxide 24.2, Anion Gap 9, BUN 33 H, Creatinine 1.07, Est GFR (MDRD) Non-Af 67, BUN/Creatinine Ratio 30.8 H, Glucose 90, Calcium 9.5, Total Bilirubin 0.92, Direct Bilirubin 0.54 H, AST 33, ALT 17, Alkaline Phosphatase 81, Troponin T High Sens 67 H*, Total Protein 6.0, Albumin 3.4, Globulin 2.6, Lipase 46 05/19/25 15:38: Troponin T Hi Sens 2 Hr 64 H* Imaging Radiology Impression Chest X-Ray 05/19/25 14:20 IMPRESSION: No acute process. DJD left shoulder. Reading [facility] Assessment & Plan Assessment/Plan (1) Chest pain: PLAN: Plan 1. Chest pain rule out/essential HTN/HLD ? His lipid panel in October with an LDL of 43, HDL of 29 ? Will obtain a stress test and echocardiogram ? Renal function is stable ? Can resume his home blood pressure medications ? Continue with his fenofibrate 2. GERD with a history of bright red blood per rectum from recurrent diverticular bleed ? Continue with PPI ? Stable ? He had a colonoscopy on 03/12/2025 with large hemorrhoids as well as nonbleeding rectal varices 3. COPD ? Not in exacerbation ? Continue with his home inhalers 4. Glaucoma ? Stable ? Continue with his eyedrops 5. Neuropathy ? Stable ? Continue with gabapentin 6. BPH with obstruction/right renal mass ? Stable ? Continue with Flomax ? Attempted to see if he has ever had a biopsy done as this was discovered in 2018 and it is enlarging and traveling up his IVC. Will call the urology office tomorrow during business hours to see if he has ever been seen by her local urologist DVT: Lovenox 75 minutes was spent on direct patient care, including documentation as well as chart review and collaboration with colleagues Charges/Coding Visit Charges Inpatient E&M: 50660 Init Hosp L3
[2025-05-19 19:04] LABS: Troponin T High Sens 4 HR 58 ng/L (<=22)
--- OUTSIDE RECORDS SUMMARY | 2025-05-19 19:26 | XMS RPT_ITS | CCD ---
Author Organization [facility] Care Team Providers Care Sewing Department Supervisor Name Role Phone EVELYN MADDEN DO Unavailable Unavailable EVELYN MADDEN DO Unavailable Unavailable CLARICE MURILLO Unavailable Unavailable EVELYN MADDEN DO Unavailable Unavailable CLARICE MURILLO Unavailable Unavailable PROVIDER, UNKNOWN Unavailable Unavailable Clarice Murillo MD Primary Care Provider Marianne Balderas RN Unavailable Unavail able Manuel Bravo MD Unavailable [phone] Marianne Balderas RN Unavailable Clarice Murillo MD Primary Care Provider Marianne Balderas RN Unavailable Manuel Bravo MD Unavailable [phone] Clarice Murillo MD Primary Care Provider Marianne [...] Clarice Murillo MD Primary Care Provider Tannhof ROPE SILICA MACHINE OPERATOR.RD SCIENTIST, Karla Unavailable Zac ROPE SILICA MACHINE OPERATOR.RD SCIENTIST, Sid Unavailable Tannhof ROPE SILICA MACHINE OPERATOR.RD SCIENTIST, Karla Unavailable Unavail able Chidi FOWLER, Dr. Melo Primary Care Provider Odilia WILKERSON, Dr. Clark Emergency Provider Josefina FOWLER, Dr. Collins Attending Provider de Cal WILKERSON, Dr. Hewitt Admit Provider Unavail able Doss DO, Dr. Hewitt Other Provider Unavail able Guillermo FOWLER, Dr. Lan Attending Provider Guillermo FOWLER, Dr. Lan Other Provider Tannho ROPE SILICA MACHINE OPERATOR.RD SCIENTIST, Karla Unavailable Chidi FOWLER, Dr. Melo Primary Care Provider [phone] Odilia WILKERSON, Dr. Clark Emergency Provider Guillermo [...] Dr. Jf Mack DO Other Provider Arvind ARTISTIC DIRECTOR-C, Alessia Other Provider Tesfaye ARTISTIC DIRECTOR-C, Samaria Other Provider Lauren Curry Other Provider Shanice FOWLER, Dr. Jaspal Price Other Provider Friend DO, Dr. Rhoades Attending Provider Kelly Ha Referring Unavailable Kelly Ha Attending Unavailable Elderbrock, Clarice Primary Care Unavailable Guillermo, Riky Attending Unavailable Evelyn Doss Admitting Unavailable Elderbrock, Clarice Primary Care Unavailable Evelyn Doss Consulting Unavailable Guillermo, Riky Consulting Unavailable [...] Primary Care Unavailable Dennis Rocha Attending Unavailable ElderbrockClarice Referring Unavailable Elderbrock, Clarice Primary Care Unavailable [...] Unavailable FABIO NORIEGA Attending Unavailable ELDERBROCK, CLARICE rCistina Primary Care Unavailable SELF Referring Unavailable FRANCIA [...] 3 Other: See Comments [facility] Work Phone: Gemfibrozil (1 source) Gemfibrozil Drug Allergy 6 Other: See Comments [facility] Work Phone: Iodine (and Iodine containting drugs) (1 source) Iodine Drug Allergy [address] [facility] Opioid Agonists (1 source) Meperidine Drug Allergy 7 Mental Status Change [facility] (1 source) meperidine Drug Allergy [facility] Repository (20 sources) Gemfibrozil; Translations: [GEMFIBROZIL] Drug Allergy 6 Other: See Comments [facility] Work Phone: (20 sources) Iodine; Translations: [IODINE] Drug Allergy [address] [facility] (20 sources) Meperidine; Translations: [MEPERIDINE (PF)] Drug Allergy 7 Mental Status Change [facility] (20 sources) baycolOther] [Other] Propensity to adverse reactions 7 Other: See Comments [facility] Work Phone: (1 source) OTHER; Translations: [OTHER] Propensity to adverse reactions (disorder) 7 [facility] Repository (20 sources) cerivastatin; Translations: [BAYCOL] Drug Allergy 3 Other: See Comments [facility] Repository (4 sources) cerivastatin; Translations: [cerivastatin sodium] Drug Allergy 5 Other [facility] Comment on above: KIDNEY FAILURE (3 sources) Meperidine Drug Allergy 5 Other [facility] (1 source) Gemfibrozil Drug Allergy 5 [facility] Repository (1 source) Meperidine Drug Allergy 5 [facility] Repository Medications Current Medications Medication [...] Comment on above: Take 1 capsule by [facility] once daily. azithromycin 250 mg oral tablet [...] Discontinued Start: 06-28-2018 End: 12-06-2022 budesonide-formoterol (SYMBI OLIIVA) 160-4.5 mcg/actuation inhaler Budesonide/Formoterol 160/4.5 Active 2 [...] three times daily. Take 1 capsule by [facility] three times daily for 180 days. Take 1 capsule by [facility] three times a day for 180 days. 12 hr guaiFENesin 600 mg extended release oral tablet (20 sources) Start: 06-15-20 End: 03-27-20 take 2 tablets by mouth twice daily guaiFENesin (MUCINEX) 600 mg 12 hr tablet Take 2 tablets by mouth two times a day. 24 tablet 11/03/2024 Active Comment on above: Take 2 tablets by [facility] twice daily. Take 2 tablets by [facility] twice daily. As needed hydrocortisone 10 mg/ml / neomycin 3.5 mg/ml / polymyxin b 47674 unt/ml otic suspension (20 sources) Aminoglycoside Antibacterial, Polymyxin-class Antibacterial, Corticosteroid Start: 07-08-20 23 neomycin-polymyxin -hydrocortisone (CORTISPORIN) 3.5-10,000-1 mg/mL-unit/mL-% otic suspension Use 4 Drops in the ears four times daily. x 1 week 10 mL 2 07/08/2023 Active Start: 05-29-2021 End: 05-18-2023 qbldvozx-sueejwqmt-hynmngrjw isone (CORTISPORIN) 3.5-10,000-1 mg/mL-unit/mL-% otic suspension Use [...] Comment on above: Take 1 tablet by [facility] every 6 hours as needed. FOR DIZZINESS [...] for 5 days. Take 2 tablets by [facility] once daily for 5 days. Take 1 tablet by [facility] once daily for 5 days. ramipril 10 mg oral capsule (20 sources) Angiotensin Converting Enzyme Inhibitor Start: 4 End: 6 take 1 capsule by mouth once daily ramipril (ALTACE) 10 mg capsule Indications: Essential hypertension, benign Take 1 capsule by mouth once daily. 90 capsule 3 11/19/2024 11/19/2025 Active Comment on above: Take 1 capsule by [facility] once daily. tamsulosin hydrochloride 0.4 mg oral capsule (20 sources) alpha-Adrenergic Edward Start: 1 End: 5 take 1 capsule by mouth once daily at bedtime tamsulosin (FLOMAX) 0.4 mg TAKE ONE CAPSULE BY MOUTH ONCE DAILY AT BEDTIME 90 capsule 3 09/07/2024 Active Start: 11-23-2014 take 1 capsule by [facility] at bedtime Tamsulosin 0.4 MG capsule Active [...] eight hours as needed for wheezing Ipratropium Kemp 0.5 MG/2.5 ML solution Discontinued 0.5 mg [...] November 10, 2024 9:41am polyethylene glycol 3350 94875 mg powder for oral solution (3 sources) [...] (2 sources) Follow-up in 3 days at [facility] in clinic Unclassified (3 sources) Bilateral chronic [...] Test Name Value Interpretation Reference Range Facility [facility] 04-26-2025 [facility] PACO WHITNEY ([id number]) 1935 M Date Time Provider Department 04/26/25 10:20 AM CLARICE MURILLO During your visit today, we recorded the following information about you: Pulse Respiration Blood pressure Weight 84/minute 14/minute 120/56 82.9 kg Height 1.778 m Clarice Murillo MD 04/26/2025 11:47 AM Signed Chief Complaint Follow up leg swelling Recording using skyrockit software for draft documentation of the visit was discussed with the patient/authorized surgical sales representative; all questions welcomed and answered. Patient/authorized surgical sales representative agreed to proceed HPI Paco is [...] W/COLLJ SPEC WHEN PFRMD 09/19/2011 Colonoscopy inpt [facility] ENDOVASCULAR ANEURYSM REPAIR 01/2013 with bi-liac [...] for wheezing/shortne (more content not included)... Normal [facility] ECHOon 04-25-2025 Echocardiography Echocardiography Rep ort: Transthoracic Echo [facility] Date of service: 04/25/2025 12:56:45 PM MACHINE OPERATOR GAS Ordering physician: NEISHA COPE Exam indication: Abnormal ECG Technologist: Whit Gallegos [facility] Interpreting physician: Shree Pereira MD [...] * * Final * * * CC [employer] Image : [id number] Normal [facility] Magnesium SerPl-mCncon 04-25 Magnesium [Mass/Vol] 1.6 mg/dL Low 1.7-2.3 [facility] Comment on above: Order Comment: Speci men Type: BLOOD SPECIMEN Ordering Facility: [facility] Address: [address] [place] [address] Performed By: #### 5 5454-3 #### [facility] CLIA [id number] [address] [place] [address] [facility] CNOVon 04-22-2025 CNOV Office Visit ([facility] ) PACO WHITNEY ([id number]) 1935 M Date Time Provider Department 04/22/25 [...] these instructions. Informed Consent Consent Obtained: Verbal Beryl Protocol A moment to CARE was completed. [...] [M17.11] Order(s):Large Joint Arthro/Inj: R knee joint [[id number]] Order #: [id number] [] betamethasone acetate-betamethasone sodium phosphate 6 mg [...] 1 tablet by mouth once daily. - laeqvjmr-lhycblvce-yqgjfhbnw isone (CORTISPORIN) 3.5-10,000-1 mg/mL-unit/mL-% otic suspension Use [...] D deficiency (more content not included)... Normal [facility] CBC W Auto Differential pane l (Bld)on 04-10-2025 Basophils (Bld) [#/Vol] 0.07 10*3/uL Normal <0.11 [facility] Comment on above: Order Comment: Speci men Type: BLOOD SPECIMENOrdering Facility: [facility] Address: [address] [place] [address] Performed By: #### 5 7021-8 ####[facility] [id number] [address], [place] [address] [place] Basophils/100 WBC (Bld) 1.0 % Normal [facility] Comment on above: Order Comment: Speci men Type: BLOOD SPECIMENOrdering Facility: [facility] Address: [address] [place] [address] Performed By: #### 5 7021-8 ####[facility] [id number] [address], [place] [address] [place] Differential cell count method Nom (Bld) Auto Normal [facility] Comment on above: Order Comment: Speci men Type: BLOOD SPECIMENOrdering Facility: [facility] Address: [address] [place] [address] Performed By: #### 5 7021-8 ####[facility] [id number] [address], [place] [address] [place] Eosinophils (Bld) [#/Vol] 0.12 10*3/uL Normal <0.46 [facility] Comment on above: Order Comment: Speci men Type: BLOOD SPECIMENOrdering Facility: [facility] Address: [address] [place] [address] Performed By: #### 5 7021-8 ####[facility] [id number] [address], [facility] [place] Eosinophils/100 WBC (Bld) 1.7 % Normal [facility] Comment on above: Order Comment: Speci men Type: BLOOD SPECIMENOrdering Facility: [facility] Address: [address] [place] [address] Performed By: #### 5 7021-8 ####[facility] [id number] [address], [facility] [place] Erythrocyte distribution width (RBC) [Ratio] 15.2 % High 11.5-15.0 [facility] Comment on above: Order Comment: Speci men Type: BLOOD SPECIMENOrdering Facility: [facility] Address: [address] [place] [address] Performed By: #### 5 7021-8 ####[facility] [id number] [place] [address] [place] Hematocrit (Bld) [Volume fraction] 39.1 % Normal 39.0-51.0 [facility] Comment on above: Order Comment: Speci men Type: BLOOD SPECIMENOrdering Facility: [facility] Address: [address] [place] [address] Performed By: #### 5 7021-8 ####[facility] [id number] [place] [address] [place] Hemoglobin (Bld) [Mass/Vol] 12.9 g/dL Low 13.0-17.0 [facility] Comment on above: Order Comment: Speci men Type: BLOOD SPECIMENOrdering Facility: [facility] Address: [address] [place] [address] Performed By: #### 5 7021-8 ####[facility] [id number] [place] [address] [place] Immature granulocytes (Bld) [#/Vol] 10*3/uL Normal <0.10 [facility] Comment on above: Order Comment: Speci men Type: BLOOD SPECIMENOrdering Facility: [facility] Address: [address] [place] [address] Performed By: #### 5 7021-8 ####[facility] [id number] [place] [address] [place] Immature granulocytes/100 WBC (Bld) 0.1 % Normal [facility] Comment on above: Order Comment: Speci men Type: BLOOD SPECIMENOrdering Facility: [facility] Address: [address] [place] [address] Performed By: #### 5 7021-8 ####[facility] [id number] [place] [address] [place] Lymphocytes (Bld) [#/Vol] 1.98 10*3/uL Normal 1.00-4.00 [facility] Comment on above: Order Comment: Speci men Type: BLOOD SPECIMENOrdering Facility: [facility] Address: [address] [place] [address] Performed By: #### 5 7021-8 ####[facility] [id number] [place] [address] [place] Lymphocytes/100 WBC (Bld) 27.7 % Normal [facility] Comment on above: Order Comment: Speci men Type: BLOOD SPECIMENOrdering Facility: [facility] Address: [address] [place] [address] Performed By: #### 5 7021-8 ####[facility] [id number] [place] [address] [place] MCH (RBC) [Entitic mass] 32.4 pg Normal 26.0-34.0 [facility] Comment on above: Order Comment: Speci men Type: BLOOD SPECIMENOrdering Facility: [facility] Address: [address] [place] [address] Performed By: #### 5 7021-8 ####[facility] [id number] [place] [id number] [place] MCHC (RBC) [Mass/Vol] 33.0 g/dL Normal 30.5-36.0 [facility] Comment on above: Order Comment: Speci men Type: BLOOD SPECIMENOrdering Facility: [facility] Address: [address] [place] [address] Performed By: #### 5 7021-8 ####[facility] [id number] [place] [address] [place] MCV (RBC) [Entitic vol] 98.2 fL Normal 80.0-100.0 [facility] Comment on above: Order Comment: Speci men Type: BLOOD SPECIMENOrdering Facility: [facility] Address: [address] [place] [address] Performed By: #### 5 7021-8 ####[facility] [id number] [place] [address] [place] Monocytes (Bld) [#/Vol] 0.74 10*3/uL Normal <0.87 [facility] Comment on above: Order Comment: Speci men Type: BLOOD SPECIMENOrdering Facility: [facility] Address: [address] [place] [address] Performed By: #### 5 7021-8 ####[facility] [id number] [place] [address] [place] Monocytes/100 WBC (Bld) 10.3 % Normal [facility] Comment on above: Order Comment: Speci men Type: BLOOD SPECIMENOrdering Facility: [facility] Address: [address] [place] [address] Performed By: #### 5 7021-8 ####[facility] [id number] [place] [address] [place] Neutrophils (Bld) [#/Vol] 4.23 10*3/uL Normal 1.45-7.50 [facility] Comment on above: Order Comment: Speci men Type: BLOOD SPECIMENOrdering Facility: [facility] Address: [address] [place] [address] Performed By: #### 5 7021-8 ####[facility] [id number] [place] [id number] [place] Neutrophils/100 WBC (Bld) 59.2 % Normal [facility] Comment on above: Order Comment: Speci men Type: BLOOD SPECIMENOrdering Facility: [facility] Address: [address] [place] [address] Performed By: #### 5 7021-8 ####[facility] [id number] [place] [address] [place] Nucleated RBC (Bld) [#/Vol] 10*3/uL Normal <0.01 [facility] Comment on above: Order Comment: Speci men Type: BLOOD SPECIMENOrdering Facility: [facility] Address: [address] [place] [address] Performed By: #### 5 7021-8 ####[facility] [id number] [place] [address] [place] Nucleated RBC/100 WBC (Bld) [Ratio] 0.0 /100 WBC Normal [facility] Comment on above: Order Comment: Speci men Type: BLOOD SPECIMENOrdering Facility: [facility] Address: [address] [place] [address] Performed By: #### 5 7021-8 ####[facility] [id number] [place] [address] [place] Platelet mean volume (Bld) [Entitic vol] 10.1 fL Normal 9.0-12.7 [facility] Comment on above: Order Comment: Speci men Type: BLOOD SPECIMENOrdering Facility: [facility] Address: [address] [place] [address] Performed By: #### 5 7021-8 ####[facility] [id number] [place] [address] [place] Platelets (Bld) [#/Vol] 216 10*3/uL Normal 150-400 [facility] Comment on above: Order Comment: Speci men Type: BLOOD SPECIMENOrdering Facility: [facility] Address: [address] [place] [address] Performed By: #### 5 7021-8 ####[facility] [id number] [place] [address] [place] RBC (Bld) [#/Vol] 3.98 10*6/uL Low 4.20-6.00 [facility] Comment on above: Order Comment: Speci men Type: BLOOD SPECIMENOrdering Facility: [facility] Address: [address] [place] [address] Performed By: #### 5 7021-8 ####[facility] [id number] [place] [address] [place] WBC (Bld) [#/Vol] 7.15 10*3/uL Normal 3.70-11.00 [facility] Comment on above: Order Comment: Speci men Type: BLOOD SPECIMENOrdering Facility: [facility] Address: [address] [place] [address] Performed By: #### 5 7021-8 ####[facility] [id number] [address] [place] CNOVon 04-10-2025 [facility] PACO WHITNEY ([id number]) 1935 M Date Time Provider Department 04/10/25 11:40 AM [facility] During [facility] visit today, we recorded the following information about you: Pulse Respiration Blood pressure Weight 80/minute 16/minute 104/62 85.7 kg Neisha Cope APRN.RD SCIENTIST 04/10/2025 12:15 PM Signed Get the labwork. [...] as salami, corned beef, etc. Fettuccine [place] con carne Beef burrito Potato salad Cottage cheese (both regular and low fat are high in sodium) Mongolian [place] Two-egg omelet, ham and cheese Chop suey (not even homemade!) Macaroni and cheese (not even homemade!) Cheeseburger Fish Sticks TIPS: Plain [place] breast is OK as sandwich meat Look [...] ago. - Paco no longer sees a adjuster piano action; distrusts previous cardiologists due to past medication [...] W/COLLJ SPEC WHEN PFRMD 09/19/2011 Colonoscopy inpt [facility] ENDOVASCULAR ANEURYSM REPAIR 01/2013 with bi-liac [...] day. pantoprazole (more content not included)... Normal [facility] Comprehensive metabolic 2000 panelon 04-10-2025 Albumin [Mass/Vol] 3.6 g/dL Low 3.9-4.9 [facility] Comment on above: Order Comment: Speci men Type: BLOOD SPECIMEN Ordering Facility: [facility] Address: [address] [place] [address] Performed By: #### 5 5454-3 #### [facility] CLIA [id number] [address] [place] [address] [place] ALP [Catalytic activity/Vol] 95 U/L Normal 38-113 [facility] Comment on above: Order Comment: Speci men Type: BLOOD SPECIMEN Ordering Facility: [facility] Address: [address] [place] [address] Performed By: #### 5 5454-3 #### [facility] CLIA [id number] [address] [place] [address] [place] ALT [Catalytic activity/Vol] 19 U/L Normal 10-54 [facility] Comment on above: Order Comment: Speci men Type: BLOOD SPECIMEN Ordering Facility: [facility] Address: [address] [place] [address] Performed By: #### 5 5454-3 #### [facility] CLIA [id number] [address] [place] [address] [place] Anion gap [Moles/Vol] 12 mmol/L Normal 8-15 [facility] Comment on above: Order Comment: Speci men Type: BLOOD SPECIMEN Ordering Facility: [facility] Address: [address] [place] [address] Performed By: #### 5 5454-3 #### [facility] CLIA [id number] [address] [place] [address] [place] AST [Catalytic activity/Vol] 36 U/L Normal 14-40 [facility] Comment on above: Order Comment: Speci men Type: BLOOD SPECIMEN Ordering Facility: [facility] Address: [address] [place] [address] Performed By: #### 5 5454-3 #### [facility] CLIA [id number] [address] [place] [address] [place] Bilirubin [Mass/Vol] 0.8 mg/dL Normal 0.2-1.3 [facility] Comment on above: Order Comment: Speci men Type: BLOOD SPECIMEN Ordering Facility: [facility] Address: [address] [place], [place] [address] Performed By: #### 5 5454-3 #### [facility] CLIA [id number] [address] [place], [place] [address] [place] Calcium [Mass/Vol] 9.4 mg/dL Normal 8.5-10.2 [facility] Comment on above: Order Comment: Speci men Type: BLOOD SPECIMEN Ordering Facility: [facility] Address: [address] [place] [address] Performed By: #### 5 5454-3 #### [facility] CLIA [id number] [address] [place], [place] [address] [place] Chloride [Moles/Vol] 107 mmol/L Normal 98-107 [facility] Comment on above: Order Comment: Speci men Type: BLOOD SPECIMEN Ordering Facility: [facility] Address: [address] [place], [place] [address] Performed By: #### 5 5454-3 #### [facility] CLIA [id number] [address] [place], [place] [address] [place] CO2 [Moles/Vol] 21 mmol/L Low 22-30 [facility] Comment on above: Order Comment: Speci men Type: BLOOD SPECIMEN Ordering Facility: [facility] Address: [address] [place], [place] [address] Performed By: #### 5 5454-3 #### [facility] CLIA [id number] [address] [place], [place] [address] [place] Creatinine [Mass/Vol] 1.01 mg/dL Normal 0.73-1.22 [facility] Comment on above: Order Comment: Zach vinson Type: BLOOD SPECIMEN Ordering Facility: [facility] Address: [address] [place] [address] Performed By: #### 5 5454-3 #### [facility] CLIA [id number] [address] [place] [address] [place] eGFRcr SerPlBld CKD-EPI 2020 72 mL/min/1.73m??? Normal >=60 [facility] Comment on above: Order Comment: Zach vinson Type: BLOOD SPECIMEN Ordering Facility: [facility] Address: [address] [place] [address] Result Comment: Toya mated Glomerular Filtration Rate [...] GFR. Performed By: #### 5 5454-3 #### [facility] CLIA [id number] [address] [place] [address] [place] Glucose [Mass/Vol] 89 mg/dL Normal 74-99 [facility] Comment on above: Order Comment: Zach vinson Type: BLOOD SPECIMEN Ordering Facility: [facility] Address: [address] [place] [address] Result Comment: The [place] [employer] (ADA) provides guidance for cutoff [...] Standards of Medical Care in Diabetes 2016, [place] [employer]. Diabetes Care. 2016.39(Suppl 1). Performed By: #### 5 5454-3 #### [facility] CLIA [id number] [address] [place] [address] [place] Potassium [Moles/Vol] 4.8 mmol/L Normal 3.7-5.1 [facility] Comment on above: Order Comment: Speci men Type: BLOOD SPECIMEN Ordering Facility: [facility] Address: [address] [place] [address] Performed By: #### 5 5454-3 #### [facility] CLIA [id number] [address] [place] [address] [place] Protein [Mass/Vol] 6.2 g/dL Low 6.3-8.0 [facility] Comment on above: Order Comment: Speci men Type: BLOOD SPECIMEN Ordering Facility: [facility] Address: [address] [place] [address] Performed By: #### 5 5454-3 #### [facility] CLIA [id number] [address] [place] [address] [place] Sodium [Moles/Vol] 140 mmol/L Normal 136-144 [facility] Comment on above: Order Comment: Speci men Type: BLOOD SPECIMEN Ordering Facility: [facility] Address: [address] [place] [address] Performed By: #### 5 5454-3 #### [facility] CLIA [id number] [address] [place], [place] [address] [place] Urea nitrogen [Mass/Vol] 24 mg/dL Normal 9-24 [facility] Comment on above: Order Comment: Speci men Type: BLOOD SPECIMEN Ordering Facility: [facility] Address: [address] [place] [address] Performed By: #### 5 5454-3 #### [facility] CLIA [id number] [address] [place], [place] [address] [place] Magnesium SerPl-mCncon 09-24 -2025 Magnesium [Mass/Vol] 1.6 mg/dL Low 1.7-2.3 [facility] Comment on above: Order Comment: Speci men Type: BLOOD SPECIMEN Ordering Facility: [facility] Address: [address] [place] [address] Performed By: #### 5 5454-3 #### [facility] CLIA [id number] [address] [place] [address] [place] NT-proBNP SerPl-mCncon 04-10 Natriuretic peptide.B prohormone N-Terminal [Mass/Vol] 601 pg/mL High <450 [facility] Comment on above: Order Comment: Speci men Type: BLOOD SPECIMEN Ordering Facility: [facility] Address: [address] [place] [address] Performed By: #### 5 5454-3 #### [facility] CLIA [id number] [address] [place] [address] [place] TSH SerPl-aCncon 04-10-2025 TSH Qn 2.520 m[IU]/L Normal 0.270-4.20 0 [facility] Comment on above: Order Comment: Speci men Type: BLOOD SPECIMEN Ordering Facility: [facility] Address: [address] [place] [address] Performed By: #### 5 5454-3 #### [facility] CLIA [id number] [address] [place] [address] [place] CBC W Auto Differential pane l (Bld)on 04-08-2025 Basophils (Bld) [#/Vol] 0.08 10*3/uL Normal <0.11 [facility] Comment on above: Order Comment: Speci men Type: BLOOD SPECIMEN Ordering Facility: [facility] Address: [address] [place] [address] Performed By: #### 5 7021-8 #### [facility] CLIA [id number] [address] [place] [address] [place] Basophils/100 WBC (Bld) 1.2 % Normal [facility] Comment on above: Order Comment: Speci men Type: BLOOD SPECIMEN Ordering Facility: [facility] Address: [address] [place] [address] Performed By: #### 5 7021-8 #### [facility] CLIA [id number] [address] [place] [address] [place] Differential cell count method Nom (Bld) Auto Normal [facility] Comment on above: Order Comment: Speci men Type: BLOOD SPECIMEN Ordering Facility: [facility] Address: [address] [place] [address] Performed By: #### 5 7021-8 #### [facility] CLIA [id number] [address] [place] [address] [place] Eosinophils (Bld) [#/Vol] 0.12 10*3/uL Normal <0.46 [facility] Comment on above: Order Comment: Speci men Type: BLOOD SPECIMEN Ordering Facility: [facility] Address: [address] [place] [address] Performed By: #### 5 7021-8 #### [facility] CLIA [id number] [address] [place] [address] [place] Eosinophils/100 WBC (Bld) 1.8 % Normal [facility] Comment on above: Order Comment: Speci men Type: BLOOD SPECIMEN Ordering Facility: [facility] Address: [address] [place] [address] Performed By: #### 5 7021-8 #### [facility] CLIA [id number] [address] [place] [address] [place] Erythrocyte distribution width (RBC) [Ratio] 15.5 % High 11.5-15.0 [facility] Comment on above: Order Comment: Speci men Type: BLOOD SPECIMEN Ordering Facility: [facility] Address: [address] [place] [address] Performed By: #### 5 7021-8 #### [facility] CLIA [id number] [address] [place] [address] [place] Hematocrit (Bld) [Volume fraction] 37.8 % Low 39.0-51.0 [facility] Comment on above: Order Comment: Speci men Type: BLOOD SPECIMEN Ordering Facility: [facility] Address: [address] [place] [address] Performed By: #### 5 7021-8 #### [facility] CLIA [id number] [address] [place] [address] [place] Hemoglobin (Bld) [Mass/Vol] 12.3 g/dL Low 13.0-17.0 [facility] Comment on above: Order Comment: Speci men Type: BLOOD SPECIMEN Ordering Facility: [facility] Address: [address] [place] [address] Performed By: #### 5 7021-8 #### [facility] CLIA [id number] [address] [place] [address] [place] Immature granulocytes (Bld) [#/Vol] 10*3/uL Normal <0.10 [facility] Comment on above: Order Comment: Speci men Type: BLOOD SPECIMEN Ordering Facility: [facility] Address: [address] [place] [address] Performed By: #### 5 7021-8 #### [facility] CLIA [id number] [address] [place] [address] [place] Immature granulocytes/100 WBC (Bld) 0.1 % Normal [facility] Comment on above: Order Comment: Speci men Type: BLOOD SPECIMEN Ordering Facility: [facility] Address: [address] [place] [address] Performed By: #### 5 7021-8 #### [facility] CLIA [id number] [address] [place] [address] [place] Lymphocytes (Bld) [#/Vol] 1.59 10*3/uL Normal 1.00-4.00 [facility] Comment on above: Order Comment: Speci men Type: BLOOD SPECIMEN Ordering Facility: [facility] Address: [address] [place] [address] Performed By: #### 5 7021-8 #### [facility] CLIA [id number] [address] [place] [address] [place] Lymphocytes/100 WBC (Bld) 23.8 % Normal [facility] Comment on above: Order Comment: Speci men Type: BLOOD SPECIMEN Ordering Facility: [facility] Address: [address] [place] [address] Performed By: #### 5 7021-8 #### [facility] CLIA [id number] [address] [place] [address] [place] MCH (RBC) [Entitic mass] 31.9 pg Normal 26.0-34.0 [facility] Comment on above: Order Comment: Speci men Type: BLOOD SPECIMEN Ordering Facility: [facility] Address: [address] [place] [address] Performed By: #### 5 7021-8 #### [facility] CLIA [id number] [address] [place] [address] [place] MCHC (RBC) [Mass/Vol] 32.5 g/dL Normal 30.5-36.0 [facility] Comment on above: Order Comment: Speci men Type: BLOOD SPECIMEN Ordering Facility: [facility] Address: [address] [place] [address] Performed By: #### 5 7021-8 #### [facility] CLIA [id number] [address] [place] [address] [place] MCV (RBC) [Entitic vol] 98.2 fL Normal 80.0-100.0 [facility] Comment on above: Order Comment: Speci men Type: BLOOD SPECIMEN Ordering Facility: [facility] Address: [address] [place] [address] Performed By: #### 5 7021-8 #### [facility] CLIA [id number] [address] [place] [address] [place] Monocytes (Bld) [#/Vol] 0.83 10*3/uL Normal <0.87 [facility] Comment on above: Order Comment: Speci men Type: BLOOD SPECIMEN Ordering Facility: [facility] Address: [address] [place] [address] Performed By: #### 5 7021-8 #### [facility] CLIA [id number] [address] [place] [address] [place] Monocytes/100 WBC (Bld) 12.4 % Normal [facility] Comment on above: Order Comment: Speci men Type: BLOOD SPECIMEN Ordering Facility: [facility] Address: [address] [place] [address] Performed By: #### 5 7021-8 #### [facility] CLIA [id number] [address] [place] [address] [place] Neutrophils (Bld) [#/Vol] 4.05 10*3/uL Normal 1.45-7.50 [facility] Comment on above: Order Comment: Speci men Type: BLOOD SPECIMEN Ordering Facility: [facility] Address: [address] [place] [address] Performed By: #### 5 7021-8 #### [facility] CLIA [id number] [address] [place] [address] [place] Neutrophils/100 WBC (Bld) 60.7 % Normal [facility] Comment on above: Order Comment: Speci men Type: BLOOD SPECIMEN Ordering Facility: [facility] Address: [address] [place] [address] Performed By: #### 5 7021-8 #### [facility] CLIA [id number] [address] [place] [address] [place] Nucleated RBC (Bld) [#/Vol] 10*3/uL Normal <0.01 [facility] Comment on above: Order Comment: Speci men Type: BLOOD SPECIMEN Ordering Facility: [facility] Address: [address] [place] [address] Performed By: #### 5 7021-8 #### [facility] CLIA [id number] [address] [place] [address] [place] Nucleated RBC/100 WBC (Bld) [Ratio] 0.0 /100 WBC Normal [facility] Comment on above: Order Comment: Speci men Type: BLOOD SPECIMEN Ordering Facility: [facility] Address: [address] [place] [address] Performed By: #### 5 7021-8 #### [facility] CLIA [id number] [address] [place] [address] [place] Platelet mean volume (Bld) [Entitic vol] 10.1 fL Normal 9.0-12.7 [facility] Comment on above: Order Comment: Speci men Type: BLOOD SPECIMEN Ordering Facility: [facility] Address: [address] [place] [address] Performed By: #### 5 7021-8 #### [facility] CLIA [id number] [address] [place] [address] [place] Platelets (Bld) [#/Vol] 207 10*3/uL Normal 150-400 [facility] Comment on above: Order Comment: Speci men Type: BLOOD SPECIMEN Ordering Facility: [facility] Address: [address] [place] [address] Performed By: #### 5 7021-8 #### [facility] CLIA [id number] [address] [place] [address] [place] RBC (Bld) [#/Vol] 3.85 10*6/uL Low 4.20-6.00 [facility] Comment on above: Order Comment: Speci men Type: BLOOD SPECIMEN Ordering Facility: [facility] Address: [address] [place] [address] Performed By: #### 5 7021-8 #### [facility] CLIA [id number] [address] [place] [address] [place] WBC (Bld) [#/Vol] 6.68 10*3/uL Normal 3.70-11.00 [facility] Comment on above: Order Comment: Speci karel Type: BLOOD SPECIMEN Ordering Facility: [facility] Address: [address] [place] [address] Performed By: #### 5 7021-8 #### [facility] CLIA [id number] [address] [place] [address] [place] CNOVon 04-02-2025 CNOV Office Visit (PULMWS ) PACO WHITNEY Josefina ([id number]) 1935 M Date Time Provider Department 04/02/25 2:15 PM FRANCIA LUNA PULMWS During your visit today, we recorded the following information about you: Pulse Blood pressure Weight 76/minute 121/73 84.6 kg Francia Luna MD 04/02/2025 3:59 PM Signed . [facility]piratory [place] Note Patient name: Paco Whitney PCP: Clarice [...] Take 1 tablet by mouth once daily. 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 Romeo RPR RETINAL DTCHMNT DRG SUBRETINAL FLUID PC 2003 Laser repair retinal detach, right eye TONSILLECTOMY PRIMARY/SECONDARY Tonsillectomy VASECTOMY UNI/BI SPX W/POSTOP SEMEN EXAMS 1963 PMH, Social history, fa (more content not included)... Normal [facility] CBC W Auto Differential pane l (Bld)on 03-27-2025 Basophils (Bld) [#/Vol] 0.06 10*3/uL NINF [facility] Basophils/100 WBC (Bld) 0.8 % [facility] Differential cell count method Nom (Bld) Auto [facility] Eosinophils (Bld) [#/Vol] 0.13 10*3/uL [facility] Eosinophils/100 WBC (Bld) 1.8 % [facility] Erythrocyte distribution width (RBC) [Ratio] 14.6 % 11.5 - 15.0 % [facility] Hematocrit (Bld) [Volume fraction] 35.8 % Low 39.0 - 51.0 % [facility] Hemoglobin (Bld) [Mass/Vol] 11.6 g/dL Low 13.0 - 17.0 g/dL [facility] Immature granulocytes (Bld) [#/Vol] [facility] Immature granulocytes/100 WBC (Bld) 0.3 % [facility] Interpretation and review of laboratory results Abnormal [facility] Lymphocytes (Bld) [#/Vol] 1.73 10*3/uL [facility] Lymphocytes/100 WBC (Bld) 23.7 % [facility] MCH (RBC) [Entitic mass] 31.8 pg 26.0 - 34.[address] [facility] MCHC (RBC) [Mass/Vol] 32.4 g/dL 30.5 - 36.0 g/dL [facility] MCV (RBC) [Entitic vol] 98.1 fL 80.0 - 100.[address] [facility] Monocytes (Bld) [#/Vol] 0.72 10*3/uL [facility] Monocytes/100 WBC (Bld) 9.9 % [facility] Neutrophils (Bld) [#/Vol] 4.64 10*3/uL [facility] Neutrophils/100 WBC (Bld) 63.5 % [facility] Nucleated RBC (Bld) [#/Vol] [facility] Nucleated RBC/100 WBC (Bld) [Ratio] 0.0 % /[address] [facility] Platelet mean volume (Bld) [Entitic vol] 9.7 fL 9.0 - 12.[address] [facility] Platelets (Bld) [#/Vol] 279 10*3/uL [facility] RBC (Bld) [#/Vol] 3.65 10*6/uL Low 4.20 - 6.00 m/uL [facility] WBC (Bld) [#/Vol] 7.30 10*3/uL [facility] Basophils (Bld) [#/Vol] 0.06 10*3/uL Normal <0.11 [facility] Comment on above: Order Comment: Speci men Type: BLOOD SPECIMEN Ordering Facility: [facility] Address: [address] [place] [address] Performed By: #### 5 5454-3 #### [facility] CLIA [id number] [address] [place] [address] [place] Basophils/100 WBC (Bld) 0.8 % Normal [facility] Comment on above: Order Comment: Speci men Type: BLOOD SPECIMEN Ordering Facility: [facility] Address: [address] [place] [address] Performed By: #### 5 5454-3 #### [facility] CLIA [id number] [address] [place] [address] [place] Differential cell count method Nom (Bld) Auto Normal [facility] Comment on above: Order Comment: Speci men Type: BLOOD SPECIMEN Ordering Facility: [facility] Address: [address] [place] [address] Performed By: #### 5 5454-3 #### [facility] CLIA [id number] [address] [place] [address] [place] Eosinophils (Bld) [#/Vol] 0.13 10*3/uL Normal <0.46 [facility] Comment on above: Order Comment: Speci men Type: BLOOD SPECIMEN Ordering Facility: [facility] Address: [address] [place] [address] Performed By: #### 5 5454-3 #### [facility] CLIA [id number] [address] [place] [address] [place] Eosinophils/100 WBC (Bld) 1.8 % Normal [facility] Comment on above: Order Comment: Speci men Type: BLOOD SPECIMEN Ordering Facility: [facility] Address: [address] [place] [address] Performed By: #### 5 5454-3 #### [facility] CLIA [id number] [address] [place] [address] [place] Erythrocyte distribution width (RBC) [Ratio] 14.6 % Normal 11.5-15.0 [facility] Comment on above: Order Comment: Speci men Type: BLOOD SPECIMEN Ordering Facility: [facility] Address: [address] [place] [address] Performed By: #### 5 5454-3 #### [facility] CLIA [id number] [address] [place] [address] [place] Hematocrit (Bld) [Volume fraction] 35.8 % Low 39.0-51.0 [facility] Comment on above: Order Comment: Speci men Type: BLOOD SPECIMEN Ordering Facility: [facility] Address: [address] [place] [address] Performed By: #### 5 5454-3 #### [facility] CLIA [id number] [address] [place] [address] [place] Hemoglobin (Bld) [Mass/Vol] 11.6 g/dL Low 13.0-17.0 [facility] Comment on above: Order Comment: Speci men Type: BLOOD SPECIMEN Ordering Facility: [facility] Address: [address] [place] [address] Performed By: #### 5 5454-3 #### [facility] CLIA [id number] [address] [place] [address] [place] Immature granulocytes (Bld) [#/Vol] 10*3/uL Normal <0.10 [facility] Comment on above: Order Comment: Speci men Type: BLOOD SPECIMEN Ordering Facility: [facility] Address: [address] [place] [address] Performed By: #### 5 5454-3 #### [facility] CLIA [id number] [address] [place] [address] [place] Immature granulocytes/100 WBC (Bld) 0.3 % Normal [facility] Comment on above: Order Comment: Speci men Type: BLOOD SPECIMEN Ordering Facility: [facility] Address: [address] [place] [address] Performed By: #### 5 5454-3 #### [facility] CLIA [id number] [address] [place] [address] [place] Lymphocytes (Bld) [#/Vol] 1.73 10*3/uL Normal 1.00-4.00 [facility] Comment on above: Order Comment: Speci men Type: BLOOD SPECIMEN Ordering Facility: [facility] Address: [address] [place] [address] Performed By: #### 5 5454-3 #### [facility] CLIA [id number] [address] [place] [address] [place] Lymphocytes/100 WBC (Bld) 23.7 % Normal [facility] Comment on above: Order Comment: Speci men Type: BLOOD SPECIMEN Ordering Facility: [facility] Address: [address] [place] [address] Performed By: #### 5 5454-3 #### [facility] CLIA [id number] [address] [place] [address] [place] MCH (RBC) [Entitic mass] 31.8 pg Normal 26.0-34.0 [facility] Comment on above: Order Comment: Speci men Type: BLOOD SPECIMEN Ordering Facility: [facility] Address: [address] [place] [address] Performed By: #### 5 5454-3 #### [facility] CLIA [id number] [address] [place] [address] [place] MCHC (RBC) [Mass/Vol] 32.4 g/dL Normal 30.5-36.0 [facility] Comment on above: Order Comment: Speci men Type: BLOOD SPECIMEN Ordering Facility: [facility] Address: [address] [place] [address] Performed By: #### 5 5454-3 #### [facility] CLIA [id number] [address] [place] [address] [place] MCV (RBC) [Entitic vol] 98.1 fL Normal 80.0-100.0 [facility] Comment on above: Order Comment: Speci men Type: BLOOD SPECIMEN Ordering Facility: [facility] Address: [address] [place] [address] Performed By: #### 5 5454-3 #### [facility] CLIA [id number] [address] [place] [address] [place] Monocytes (Bld) [#/Vol] 0.72 10*3/uL Normal <0.87 [facility] Comment on above: Order Comment: Speci men Type: BLOOD SPECIMEN Ordering Facility: [facility] Address: [address] [place] [address] Performed By: #### 5 5454-3 #### [facility] CLIA [id number] [address] [place] [address] [place] Monocytes/100 WBC (Bld) 9.9 % Normal [facility] Comment on above: Order Comment: Speci men Type: BLOOD SPECIMEN Ordering Facility: [facility] Address: [address] [place] [address] Performed By: #### 5 5454-3 #### [facility] CLIA [id number] [address] [place] [address] [place] Neutrophils (Bld) [#/Vol] 4.64 10*3/uL Normal 1.45-7.50 [facility] Comment on above: Order Comment: Speci men Type: BLOOD SPECIMEN Ordering Facility: [facility] Address: [address] [place] [address] Performed By: #### 5 5454-3 #### [facility] CLIA [id number] [address] [id number] [address] [place] Neutrophils/100 WBC (Bld) 63.5 % Normal [facility] Comment on above: Order Comment: Speci men Type: BLOOD SPECIMEN Ordering Facility: [facility] Address: [address] [place] [address] Performed By: #### 5 5454-3 #### [facility] CLIA [id number] [address] [place] [address] [place] Nucleated RBC (Bld) [#/Vol] 10*3/uL Normal <0.01 [facility] Comment on above: Order Comment: Speci men Type: BLOOD SPECIMEN Ordering Facility: [facility] Address: [address] [place] [address] Performed By: #### 5 5454-3 #### [facility] CLIA [id number] [address] [place] [address] [place] Nucleated RBC/100 WBC (Bld) [Ratio] 0.0 /100 WBC Normal [facility] Comment on above: Order Comment: Speci men Type: BLOOD SPECIMEN Ordering Facility: [facility] Address: [address] [place] [address] Performed By: #### 5 5454-3 #### [facility] CLIA [id number] [address] [place] [address] [place] Platelet mean volume (Bld) [Entitic vol] 9.7 fL Normal 9.0-12.7 [facility] Comment on above: Order Comment: Speci men Type: BLOOD SPECIMEN Ordering Facility: [facility] Address: [address] [place] [address] Performed By: #### 5 5454-3 #### [facility] CLIA [id number] [address] [place] [address] [place] Platelets (Bld) [#/Vol] 279 10*3/uL Normal 150-400 [facility] Comment on above: Order Comment: Speci men Type: BLOOD SPECIMEN Ordering Facility: [facility] Address: [address] [place] [address] Performed By: #### 5 5454-3 #### [facility] CLIA [id number] [address] [place] [address] [place] RBC (Bld) [#/Vol] 3.65 10*6/uL Low 4.20-6.00 [facility] Comment on above: Order Comment: Speci men Type: BLOOD SPECIMEN Ordering Facility: [facility] Address: [address] [place] [address] Performed By: #### 5 5454-3 #### [facility] CLIA [id number] [address] [place] [address] [place] WBC (Bld) [#/Vol] 7.30 10*3/uL Normal 3.70-11.00 [facility] Comment on above: Order Comment: Speci men Type: BLOOD SPECIMEN Ordering Facility: [facility] Address: [address] [place] [address] Performed By: #### 5 5454-3 #### [facility] CLIA [id number] [address] [place] [address] OF [place]ICK CNOVon 03-27-2025 [facility] PACO WHITNEY ([id number]) 1935 M Date Time Provider Department 03/27/25 1:40 PM NEISHA COPE During your visit today, we recorded the following information about you: Pulse Respiration Blood pressure Weight 72/minute 16/minute 98/54 86.6 kg Neisha Cope APRN.RD SCIENTIST 03/27/2025 2:17 PM Signed Take on furosemide daily X 3 days. Recheck in 2 weeks. Let us know if no better/worsening. 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 ntuuayqt-sbxqcjqkn-wwdooztbl isone (CORTISPORIN) 3.5-10,000-1 mg/mL-unit/mL-% otic suspension Use 4 Drops in the ears four times daily. x 1 week clotrimazole-betamethasone (LOTRISONE) cream Apply 1 application to affected area two times a day. As needed acetaminophen (TYLENOL) 500 mg tablet Take 2 tablets by mouth every 6 hours. cholecalciferol (VITAMIN D3) 1,000 unit tab tablet Cholecalciferol (Vit D3) (more content not included)... Normal [facility] 12 Lead EKGon 03-12-2025 12 Lead EKG [facility] Cardiovascular Services [address] [place] [address] 12 Lead EKG 03/12/25 0447 MR#: [id number] Acct: [id number] Name: PACO WHITNEY Rep #: [id number] : 1935 89 From: Kelly Ha MD Attending Dr: Dr. Jaspal Prasad MD Status : ADM IN Ordering Dr: Erlin Vences MD Date: 03/12/25 Location: [facility] Sex: M C Admitted: 03/10/25 Test Reason [...] When compared with ECG of 28-Jun-2018 12:26, [place] interval has increased Vent. rate has decreased by 30 bpm Left bundle branch block is now Present Confirmed by KELLY AH ([id number]), multimedia editor ADITYA JUAREZ ([id number]) on 03/12/2025 1:10:47 PM Referred By: Confirmed By: KELLY HA 03/12/25 1310 Date Kelly Ha MD CC: Dr. Erlin Vences MD; Dr. Clarice Murillo MD; Dr. Jaspal Prasad MD Signed Normal [facility] Absolute lymphocyte countOrd ered By: Jaspal Prasad on 03-12-2025 Lymphocytes Auto (Unsp spec) [#/Vol] 1.31 10*3/uL 0.83-4.51 [facility] Absolute neutrophil countOrd ered By: Jaspal Prasad on 03-12-2025 Neutrophils (Bld) [#/Vol] 5.5 10*3/uL 2.0-7.7 [facility] Activated partial thrombopla stin time (aPTT) in platelet poor plasma by coagulation aOrdered By: Erlin Vences on 03-12-2025 aPTT Coag (PPP) [Time] 29.5 s 24.1-36.2 [facility] Anion gap in Serum or Plasma Ordered By: Jaspal Prasad on 03-12-2025 Anion gap [Moles/Vol] 8 mmol/L 5-15 [facility] Automated lymphocyte count a s percentage of total leukocytesOrdered By: Jaspal Prasad on 03-12-2025 Lymphocytes/100 WBC Auto (Unsp spec) 16.7 % Low -41 [facility] BUN/creatinine ratioOrdered By: Jaspal Prasad on 03-12-2025 Urea nitrogen/Creatinine [Mass ratio] 22.0 mg/mg High 10- [facility] Basic Metabolic Profile (BMP )on 03-12-2025 BUN/CRE 22.0 RATIO High 10- [facility] Comment on above: Performed By: #### L 300.4310, L300.3900 #### [facility] [address] [place], [address] Calcium [Mass/Vol] 9.8 mg/dL Normal 7.6-11.0 [facility] Comment on above: Performed By: #### L 300.4310, L300.3900 #### [facility] [address] [place], [address] Chloride [Moles/Vol] 104 mmol/L Normal 98-108 [facility] Comment on above: Performed By: #### L 300.4310, L300.3900 #### [facility] [address] [place], [address] CO2 [Moles/Vol] 24.7 mmol/L Normal 21.0-32.0 [facility] Comment on above: Performed By: #### L 300.4310, L300.3900 #### [facility] [address] [place], [address] Creatinine [Mass/Vol] 0.98 mg/dL Normal 0.70-1.20 [facility] Comment on above: Performed By: #### L 300.4310, L300.3900 #### [facility] [address] [place], [address] ECRCL 54.61 ml/min Normal 50-250 [facility] Comment on above: Performed By: #### L 300.4310, L300.3900 #### [facility] [address] [place], [address] GAP 8 Normal 5-15 [facility] Comment on above: Performed By: #### L 300.4310, L300.3900 #### [facility] [address] [place], [address] GFR/1.73 sq M.predicted among non-blacks MDRD (S/P/Bld) [Vol rate/Area] 74 mL/min/{1.73_m2} Normal >60 [facility] Comment on above: Result Comment: mL/m in/1.73m2 CKD-EPI Creatinine Equation (2020) Performed By: #### L 300.4310, L300.3900 #### [facility] [address] [place], [address] Glucose [Mass/Vol] 102 mg/dL High 70-99 [facility] Comment on above: Performed By: #### L 300.4310, L300.3900 #### [facility] [address] [place], [address] Potassium [Moles/Vol] 4.5 mmol/L Normal 3.3-5.1 [facility] Comment on above: Performed By: #### L 300.4310, L300.3900 #### [facility] [address] [place], [address] Sodium [Moles/Vol] 137 mmol/L Normal 133-145 [facility] Comment on above: Performed By: #### L 300.4310, L300.3900 #### [facility] [address] [place], [address] Urea nitrogen [Mass/Vol] 22 mg/dL High 4-19 [facility] Comment on above: Performed By: #### L 300.4310, L300.3900 #### [facility] [address] [place], [address] Basophil percentageOrdered B y: Jaspal Prasad on 03-12-2025 Basophils/100 WBC (Bld) 0.8 % 0-1 [facility] Bedside Glucoseon 03-12-2025 FINGERSTICK GLU 104 mg/dL Normal 74-106 [facility] Comment on above: Result Comment: MELISSA FORMAN OF PATIENT CARE PER NURSING PROTOCOL Performed By: #### L 501.080 #### [facility] [address] [place], [address] Bilirubin directOrdered By: Erlin Vences on 03-12-2025 Bilirubin.direct [Mass/Vol] 0.42 mg/dL High 0.00-0.30 [facility] Bilirubin, totalOrdered By: Erlin Vences on 03-12-2025 Bilirubin [Mass/Vol] 0.84 mg/dL 0.00-1.30 [facility] CBC W/Diff, Automatedon 02-16 Absolute Lymph 1.31 X10 3/uL Normal 0.83-4.51 [facility] Comment on above: Performed By: #### L 500.2500, L100.0100, L500.3400 #### [facility] [address] [place], [address] Absolute Neut 5.5 X10 3/uL Normal 2.0-7.7 [facility] Comment on above: Performed By: #### L 500.2500, L100.0100, L500.3400 #### [facility] [address] [place], [address] Basophils/100 WBC (Bld) 0.8 % Normal 0-1 [facility] Comment on above: Performed By: #### L 500.2500, L100.0100, L500.3400 #### [facility] [address] [place], [address] Eosinophils/100 WBC (Bld) 2.2 % Normal 0-5 [facility] Comment on above: Performed By: #### L 500.2500, L100.0100, L500.3400 #### [facility] [address] [place], [address] Erythrocyte distribution width (RBC) [Ratio] 13.9 % Normal 11.6-14.6 [facility] Comment on above: Performed By: #### L 500.2500, L100.0100, L500.3400 #### [facility] [address] [place], [address] Hematocrit (Bld) [Volume fraction] 37.2 % Low 40-54 [facility] Comment on above: Performed By: #### L 500.2500, L100.0100, L500.3400 #### [facility] [address] [place], [address] Hemoglobin (Bld) [Mass/Vol] 12.8 g/dL Low 13.0-16.5 [facility] Comment on above: Performed By: #### L 500.2500, L100.0100, L500.3400 #### [facility] [address] [place], [address] IG% 0.300 Normal 0.0-0.9 [facility] Comment on above: Result Comment: IG% - Immature Granulocytes (promyelocytes, myelocytes and metamyelocytes) > 1% indicates that a LEFT SHIFT is Present. Performed By: #### L 500.2500, L100.0100, L500.3400 #### [facility] [address] [place], [address] Lymphocytes/100 WBC (Bld) 16.7 % Low 19-41 [facility] Comment on above: Performed By: #### L 500.2500, L100.0100, L500.3400 #### [facility] [address] [place], [address] MCH (RBC) [Entitic mass] 32.5 pg High 27.0-32.0 [facility] Comment on above: Performed By: #### L 500.2500, L100.0100, L500.3400 #### [facility] [address] [place], [address] MCHC (RBC) [Mass/Vol] 34.4 g/dL Normal 32-36 [facility] Comment on above: Performed By: #### L 500.2500, L100.0100, L500.3400 #### [facility] [address] [place], [address] MCV (RBC) [Entitic vol] 94.4 fL High 80-94 [facility] Comment on above: Performed By: #### L 500.2500, L100.0100, L500.3400 #### [facility] [address] [place], [address] Monocytes/100 WBC (Bld) 9.7 % Normal 0-10 [facility] Comment on above: Performed By: #### L 500.2500, L100.0100, L500.3400 #### [facility] [address] [place], [address] Neutrophils/100 WBC (Bld) 70.3 % High 47-70 [facility] Comment on above: Performed By: #### L 500.2500, L100.0100, L500.3400 #### [facility] [address] [place], [address] Nucleated RBC (Bld) [#/Vol] 0 10*3/uL Normal 0-5 [facility] Comment on above: Performed By: #### L 500.2500, L100.0100, L500.3400 #### [facility] [address] [place], [address] Platelet mean volume (Bld) [Entitic vol] 9.3 fL Normal 6.2-12.0 [facility] Comment on above: Performed By: #### L 500.2500, L100.0100, L500.3400 #### [facility] [address] [place], [address] Platelets (Bld) [#/Vol] 190 10*3/uL Normal 150-450 [facility] Comment on above: Performed By: #### L 500.2500, L100.0100, L500.3400 #### [facility] [address] [place], [address] RBC (Bld) [#/Vol] 3.94 10*6/uL Low 4.6-6.2 [facility] Comment on above: Performed By: #### L 500.2500, L100.0100, L500.3400 #### [facility] [address] [place], [address] RDW SD 47.9 fl High 35.1-43.9 [facility] Comment on above: Performed By: #### L 500.2500, L100.0100, L500.3400 #### [facility] [address] [place], [address] WBC (Bld) [#/Vol] 7.8 10*3/uL Normal 4.4-11.0 [facility] Comment on above: Performed By: #### L 500.2500, L100.0100, L500.3400 #### [facility] [address] [place], [address] Carbon dioxide, total [Moles /volume] in Central venous bloodOrdered By: Jaspal Prasad on 03-12-2025 CO2 [Moles/Vol] 24.7 mmol/L 21.0-32.0 [facility] Chloride assayOrdered By: Serena Prasad on 03-12-2025 Chloride [Moles/Vol] 104 mmol/L 98-108 [facility] Colonoscopy Reporton 025 Colonoscopy Report [facility] Medical Records Department [address] [place] [address] Colonoscopy Report MR#: [id number] Acct: [id number] Name: PACO WHITNEY Rep #: [id number] : 1935 89 From: Jf Mack DO [...] to age. Procedure Code(s): --- Professional --- 33895, Colonoscopy, flexible; diagnostic, including collection of specimen(s) by brushing or washing, when performed (separate procedure) CPT copyright 2021 [employer]. All rights reserved. The codes documented in this report are preliminary and upon weigh tank operator review may be revised to meet current compliance requirements. Jf Mack DO 03/12/2025 4:55:03 PM This report has been signed electronically. Number of Addenda: 0 Note Initiated On: 03/12/2025 4:37 PM 03/12/25 1655 Date Jf Mack DO Cosigner Signature: Date (if indicated) CC: Dr. Clarice Murillo MD; Jf Mack DO Date Dictated: 03/12/25 1637 Date Transcribed: 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: AUGUSTINE Signed Normal [facility] Discharge Instructionon 02-16 Discharge Instruction [facility] Medical Records Department [address] [place] [address] Instructions for Home/Discharge Instructions 03/12/25 1321 MR#: [id number] Acct: [id number] Name: PACO WHITNEY Rep #: [id number] : 1935 89 From: Jaspal Prasad MD [...] OLI Levine; Jf Mack DO Signed Normal [facility] Electrocardiogram reportOrde red By: Kelly Ha on 03-12-2025 EKG study [facility] Cardiovascular Services [address] [place] [address] 12 Lead EKG 03/12/25 1427 MR#: [id number] Acct: [id number] Name: PACO WHITNEY Rep #:[id number] : 1935 89 From: Kelly Ha MD Attending Dr: Dr. Jaspal Prasad MD Status: ADM IN Ordering Dr: Erlin Vences MD Date: 03/12/25 Location: [facility] Sex: M C Admitted: 03/10/25 Test Reason [...] When compared with ECG of 28-Jun-2018 12:26, [place] interval has increased Vent. rate has decreased by 30 bpm Left bundle branch block is now Present Confirmed by KELLY HA ([id number]), multimedia editor ADITYA JUAREZ ([id number]) on 03/12/2025 1:10:47 PM Referred By: Confirmed By: KELLY HA 03/12/25 1310 Date _ Kelly Ha MD CC: Dr. Erlin Vences MD; Dr. Clarice Murillo MD; Dr. Jaspal Prasad MD ~ Signed [facility] Other Phone: Eosinophil percentageOrdered By: Jaspal Prasad on 03-12-2025 Eosinophils/100 WBC (Bld) 2.2 % 0-5 [facility] Erythrocyte distribution wid th ratioOrdered By: Jaspal Prasad on 03-12-2025 Erythrocyte distribution width (RBC) [Ratio] 13.9 % 11.6-14.6 [facility] Erythrocyte distribution wid th standard deviationOrdered By: Jaspal Prasad on 03-12-2025 Erythrocyte distribution width (RBC) [Ratio] 47.9 fl High 35.1-43.9 [facility] Glomerular filtration rate ( GFR) estimation/1.73 sq m using serum, plasma, or whole bOrdered By: Jaspal Prasad on 03-12-2025 GFR/1.73 sq M.predicted among non-blacks MDRD (S/P/Bld) [Vol rate/Area] 74 mL/min/{1.73_m2} >60 [facility] Comment on above: mL/min/1.73m2 CKD-EP I Creatinine Equation (2020) [facility] deOrdered By: Jaspal Prasad on 03-12-2025 Glucose [Mass/Vol] 104 mg/dL 74-106 [facility] Comment on above: MANAGEMENT OF PATIEN T CARE PER NURSING PROTOCOL Hematocrit Auto (Bld) [Volum e fraction]Ordered By: Jaspal Prasad on 03-12-2025 Hematocrit (Bld) [Volume fraction] 37.2 % Low 40-54 [facility] Hemoglobin measurementOrdere d By: Jaspal Prasad on 03-12-2025 Hemoglobin (Bld) [Mass/Vol] 12.8 g/dL Low 13.0-16.5 [facility] Immature granulocytes/100 WB C Auto (Bld)Ordered By: Jaspal Prasad on 03-12-2025 Immature granulocytes/100 WBC (Bld) 0.300 % 0.0-0.9 [facility] Comment on above: IG% - Immature Granu locytes (promyelocytes, myelocytes and metamyelocytes) > 1% indicates that a LEFT SHIFT is Present. International normalized rat io (INR) calculationOrdered By: Erlin Vences on 03-12-2025 INR Coag (Bld) [Relative time] 1.1 {INR} [facility] Laboratory - Chemistry and C hemistry - challengeOrdered By: Erlin Vences on 03-12-2025 AST [Catalytic activity/Vol] 29 U/L <38 [facility] Liver Profileon 03-12-2025 Albumin [Mass/Vol] 3.4 g/dL Normal 3.4-4.8 [facility] Comment on above: Performed By: #### L 300.5050, L300.3900 #### [facility] [address] [place], [address] ALK PHOS 80 U/L Normal 40-129 [facility] Comment on above: Performed By: #### L 300.4310, L300.3900 #### [facility] [address] [place], [address] ALT [Catalytic activity/Vol] 19 U/L Normal <=46 [facility] Comment on above: Performed By: #### L 300.4310, L300.3900 #### [facility] [address] [place], [address] AST [Catalytic activity/Vol] 29 U/L Normal <=37 [facility] Comment on above: Performed By: #### L 300.4310, L300.3900 #### [facility] [address] [place], [address] Bilirubin [Mass/Vol] 0.84 mg/dL Normal 0.00-1.30 [facility] Comment on above: Performed By: #### L 300.4310, L300.3900 #### [facility] [address] [place], [address] Bilirubin.direct [Mass/Vol] 0.42 mg/dL High 0.00-0.30 [facility] Comment on above: Performed By: #### L 300.4310, L300.3900 #### [facility] [address] [place], [address] Globulin (S) [Mass/Vol] 2.3 g/dL Normal 2.2-4.2 [facility] Comment on above: Performed By: #### L 300.4310, L300.3900 #### [facility] [address] [place], [address] T PROT 5.7 g/dL Low 5.9-8.4 [facility] Comment on above: Performed By: #### L 300.4310, L300.3900 #### [facility] [address] [place], [address] MCV (mean corpuscular volume ) determinationOrdered By: Jaspal Prasad on 03-12-2025 MCV (RBC) [Entitic vol] 94.4 fL High 80-94 [facility] MR/OP.PROVATon 03-12-2025 MR/OP.[facility] Medical Records Department [address] [place] [address] Provation Physician Letter MR#: [id number] Acct: [id number] Name: PACO WHITNEY Rep #: [id number] : 1935 89 From: Jf Mack DO PCP: Dr. Clarice Murillo MD Status:ADM IN 03/12/2025 Clarice Murlilo [address] [place] [address] Re : Colonoscopy procedure for Paco Whitney [...] This report has been signed electronically. 03/12/25 4022 Date Jf Matias Signature: Date (if indicated) CC: CHRIS Samuels; CHRIS Carlin; Dr. Miller Vides DO; Dr. Clarice Murillo MD; Dr. Jaspal Prasad MD; Dr. Riky Li MD; OLI Levine; Jf Mack DO Date Dictated: 03/12/251636 Date Transcribed: 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: AUGUSTINE Signed [facility] MR/POSTOP.ANEon 03-12-2025 MR/POSTOP.[facility] Medical Records Department [address] [place] [address] Anesthesia Postop Eval I 03/12/251652 MR#: [id number] Acct: [id number] Name: PACO WHITNEY Rep #: [id number] : 1935 89 From: Jalen Nunez CRNA PCP: Dr. Clarice Murillo MD Status:ADM IN Y Race: C Location: [place] [address] Anesthesia: Postop Eval I Current Vital Signs [...] Nunez CRNA Cosigner Signature: Date CC: Signed [facility] MR/OYISTWYW9mm 03-12-2025 MR/POSTOPAN2 [facility] Medical Records Department [address] [place] [address] Anesthesia Postop Eval II 03/12/25 1713 MR#: [id number] Acct: [id number] Name: PACO WHITNEY Rep #: [id number] : 1935 89 From: Erlin Vences MD PCP: Dr. Clarice Murillo MD Status:ADM IN Y Race: C Location: [place] [address] Anesthesia Postop Eval I Sum Postop Eval Completion status Anesthesia document: Postop Eval 1 completed: Yes Anesthesia Postop Eval I Summary Anesthesia Postop Eval I Summary: Anesthesia Postop Eval I: Assessment Summary Airway patent Yes 03/12/25 16:54 LEATHER STRETCHER.PKEL Spontaneous unlabored Yes 03/12/25 16:54 LEATHER STRETCHER.PKEL respirations Mental status Awake,Calm 03/12/25 16:54 LEATHER STRETCHER.PKEL nausea No 03/12/25 16:54 LEATHER STRETCHER.PKEL Vomiting No 03/12/25 16:54 LEATHER STRETCHER.PKEL Anesthesia Postop Eval I: Fluid Summary Crystalloid volume administer 100 03/12/25 16:54 LEATHER [email or web address] (ml) Colloids volume administered ( ml) Blood Product volume administered (ml) Total IV fluid infused 100 03/12/25 16:54 LEATHER [email or web address] Anesthesia Postop Eval I: Summary Notes Anesthesia Complication No 03/12/25 16:54 LEATHER [email or web address] Anesthesia Complication Comment: Post-operative progress note Anesthesia: Postop Eval II Evaluation Mental status: Awake and Calm Pain Level: 0 nausea: No Vomiting: No Complications Anesthesia Complication: No 03/12/25 171 Date Erlin Vences MD Cosigner Signature: Date CC: Signed Normal [facility] Mean corpuscular hemoglobin (MCH) determinationOrdered By: Jaspal Prasad on 03-12-2025 MCH (RBC) [Entitic mass] 32.5 pg High 27.0-32.0 [facility] Mean corpuscular hemoglobin concentration (MCHC) determinationOrdered By: Jaspal Prasad on 03-12-2025 MCHC (RBC) [Mass/Vol] 34.4 g/dL 32-36 [facility] Mean platelet volume determi nationOrdered By: Jaspal Prasad on 03-12-2025 Platelet mean volume (Bld) [Entitic vol] 9.3 fL 6.2-12.0 [facility] Monocyte percentageOrdered B y: Jaspal Prasad on 03-12-2025 Monocytes/100 WBC (Bld) 9.7 % 0-10 [facility] Neutrophil percentageOrdered By: Jaspal Prasad on 03-12-2025 Neutrophils/100 WBC (Bld) 70.3 % High 47-70 [facility] Nucleated red blood cell per centageOrdered By: Jaspal Prasad on 03-12-2025 Nucleated RBC/100 WBC (Bld) [Ratio] 0 % 0-5 [facility] Partial Thromboplast Timeon 03-12-2025 aPTT Coag (Bld) [Time] 29.5 s Normal 24.1-36.2 [facility] Comment on above: Performed By: #### L 300.4310, L300.3900 #### [facility] [address] [place], [address] Platelet countOrdered By: Serena Prasad on 03-12-2025 Platelets (Bld) [#/Vol] 190 10*3/uL 150-450 [facility] Potassium measurement (mass/ volume)Ordered By: Jaspal Prasad on 03-12-2025 Potassium (Unsp spec) [Mass/Vol] 4.5 mmol/L 3.3-5.1 [facility] Prothrombin Time w/INRon INR Coag (PPP) [Relative time] 1.1 {INR} Normal [facility] Comment on above: Performed By: #### L 300.4310, L300.3900 #### [facility] [address] [place], [address] PT Coag (PPP) [Time] 14.7 s Normal 11.7-14.9 [facility] Comment on above: Performed By: #### L 300.8795, L300.3900 #### [facility] [address] [place], [place], [address] Prothrombin timeOrdered By: Erlin Vences on 03-12-2025 PT Coag (PPP) [Time] 14.7 s 11.7-14.9 [facility] RBC Auto (Bld) [#/Vol]Ordere d By: Jaspal Prasad on 03-12-2025 RBC (Bld) [#/Vol] 3.94 10*6/uL Low 4.6-6.2 [facility] Serum creatinine measurement (mass/volume)Ordered By: Jaspal Prasad on 03-12-2025 Creatinine [Mass/Vol] 0.98 mg/dL 0.70-1.20 [facility] Serum globulin measurementOr dered By: Erlin Vences on 03-12-2025 Globulin (S) [Mass/Vol] 2.3 g/dL 2.2-4.2 [facility] Serum glucose measurement (m ass/volume)Ordered By: Jaspal Prasad on 03-12-2025 Glucose [Mass/Vol] 102 mg/dL High 70-99 [facility] Serum or plasma alanine hopkins otransferase (ALT) measurementOrdered By: Erlin Vences on 03-12-2025 ALT [Catalytic activity/Vol] 19 U/L <47 [facility] Serum or plasma albumin saige urement (mass/volume)Ordered By: Erlin Vences on 03-12-2025 Albumin [Mass/Vol] 3.4 g/dL 3.4-4.8 [facility] Serum or plasma alkaline jaki sphatase measurementOrdered By: Erlin Vences on 03-12-2025 ALP [Catalytic activity/Vol] 80 U/L 40-129 [facility] Serum or plasma calcium saige urement (mass/volume)Ordered By: Jaspal Prasad on 03-12-2025 Calcium [Mass/Vol] 9.8 mg/dL 7.6-11.0 [facility] Serum or plasma urea nitroge n measurement (mass/volume)Ordered By: Jaspal Prasad on 03-12-2025 Urea nitrogen [Mass/Vol] 22 mg/dL High 4-19 [facility] Sodium levelOrdered By: Emeka Prasad on 03-12-2025 Sodium [Moles/Vol] 137 mmol/L 133-145 [facility] Stool Occult Blood iFOBon STOB Positive Normal [facility] Comment on above: Performed By: #### L 100.0500, L500.2500 #### [facility] [address] [place], [address] Total proteinOrdered By: Agnes Vences on 03-12-2025 Protein [Mass/Vol] 5.7 g/dL Low 5.9-8.4 [facility] White blood cell (WBC) count Ordered By: Jaspal Prasad on 03-12-2025 WBC (Bld) [#/Vol] 7.8 10*3/uL 4.4-11.0 [facility] Basic Metabolic Profile (BMP )on 03-11-2025 BUN/CRE 28.9 RATIO High 10-20 [facility] Comment on above: Performed By: #### L 100.0500, L500.2500 #### [facility] [address] [place], [address] Calcium [Mass/Vol] 9.0 mg/dL Normal 7.6-11.0 [facility] Comment on above: Performed By: #### L 100.0500, L500.2500 #### [facility] [address] [place], [address] Chloride [Moles/Vol] 107 mmol/L Normal 98-108 [facility] Comment on above: Performed By: #### L 100.0500, L500.2500 #### [facility] [address] [place], [address] CO2 [Moles/Vol] 22.4 mmol/L Normal 21.0-32.0 [facility] Comment on above: Performed By: #### L 100.0500, L500.2500 #### [facility] [address] [place], [address] Creatinine [Mass/Vol] 1.02 mg/dL Normal 0.70-1.20 [facility] Comment on above: Performed By: #### L 100.0500, L500.2500 #### [facility] [address] [place], [address] ECRCL 52.47 ml/min Normal 50-250 [facility] Comment on above: Performed By: #### L 100.0500, L500.2500 #### [facility] [address] [place], [address] GAP 10 Normal 5-15 [facility] Comment on above: Performed By: #### L 100.0500, L500.2500 #### [facility] [address] [place], [address] GFR/1.73 sq M.predicted among non-blacks MDRD (S/P/Bld) [Vol rate/Area] 71 mL/min/{1.73_m2} Normal >60 [facility] Comment on above: Result Comment: mL/m in/1.73m2 CKD-EPI Creatinine Equation (2020) Performed By: #### L 100.0500, L500.2500 #### [facility] [address] [place], [address] Glucose [Mass/Vol] 88 mg/dL Normal 70-99 [facility] Comment on above: Performed By: #### L 100.0500, L500.2500 #### [facility] [address] [place], [address] Potassium [Moles/Vol] 4.1 mmol/L Normal 3.3-5.1 [facility] Comment on above: Performed By: #### L 100.0500, L500.2500 #### [facility] [address] [place], [address] Sodium [Moles/Vol] 140 mmol/L Normal 133-145 [facility] Comment on above: Performed By: #### L 100.0500, L500.2500 #### [facility] [address] [place], [address] Urea nitrogen [Mass/Vol] 30 mg/dL High 4-19 [facility] Comment on above: Performed By: #### L 100.0500, L500.2500 #### [facility] [address] [place], [address] CBC-Complete Blood Cnt No Di ffon 03-11-2025 Erythrocyte distribution width (RBC) [Ratio] 14.0 % Normal 11.6-14.6 [facility] Comment on above: Performed By: #### L 100.0500, L500.2500 #### [facility] [address] [place], [address] Hematocrit (Bld) [Volume fraction] 33.7 % Low 40-54 [facility] Comment on above: Performed By: #### L 100.0500, L500.2500 #### [facility] [address] [place], [address] Hemoglobin (Bld) [Mass/Vol] 11.5 g/dL Low 13.0-16.5 [facility] Comment on above: Performed By: #### L 100.0500, L500.2500 #### [facility] [address] [place], [address] MCH (RBC) [Entitic mass] 32.3 pg High 27.0-32.0 [facility] Comment on above: Performed By: #### L 100.0500, L500.2500 #### [facility] [address] [place], [address] MCHC (RBC) [Mass/Vol] 34.1 g/dL Normal 32-36 [facility] Comment on above: Performed By: #### L 100.0500, L500.2500 #### [facility] [address] [place], [address] MCV (RBC) [Entitic vol] 94.7 fL High 80-94 [facility] Comment on above: Performed By: #### L 100.0500, L500.2500 #### [facility] [address] [place], [address] Platelet mean volume (Bld) [Entitic vol] 9.2 fL Normal 6.2-12.0 [facility] Comment on above: Performed By: #### L 100.0500, L500.2500 #### [facility] [address] [place], [address] Platelets (Bld) [#/Vol] 174 10*3/uL Normal 150-450 [facility] Comment on above: Performed By: #### L 100.0500, L500.2500 #### [facility] [address] [place], [address] RBC (Bld) [#/Vol] 3.56 10*6/uL Low 4.6-6.2 [facility] Comment on above: Performed By: #### L 100.0500, L500.2500 #### [facility] [address] [place], [address] RDW SD 49.3 fl High 35.1-43.9 [facility] Comment on above: Performed By: #### L 100.0500, L500.2500 #### [facility] [address] [place], [address] WBC (Bld) [#/Vol] 7.6 10*3/uL Normal 4.4-11.0 [facility] Comment on above: Performed By: #### L 100.0500, L500.2500 #### [facility] [address] [place], [address] Abdomen/Pelvis W IV Cont ONL Yon 03-10-2025 Abdomen/Pelvis W IV Cont ONLY [facility] Imaging Services [address] [place] [address] Abdomen/Pelvis W IV Cont ONLY MR#: [id number] Acct: [id number] Name: PACO WHITNEY Rep #: [id number] : 1935 M 89 From: Darryl Zamora DO PCP: Dr. Clarice Murillo MD Status: REG ER Study: Abdomen/Pelvis W IV Cont ONLY Date of Exam: Exam# [id number] Ordering Dr: Arturo Naranjo MD PROCEDURE: ABDOMEN/PELVIS [...] cystic lesions in the kidneys Reading [facility] CC: Dr. Arturo Naranjo MD; Dr. Clarice Murillo MD 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: Signed Normal [facility] Absolute lymphocyte countOrd ered By: Arturo Naranjo on 03-10-2025 Lymphocytes Auto (Unsp spec) [#/Vol] 1.51 10*3/uL 0.83-4.51 [facility] Absolute neutrophil countOrd ered By: Arturo Naranjo on 03-10-2025 Neutrophils (Bld) [#/Vol] 6.3 10*3/uL 2.0-7.7 [facility] Anion gap in Serum or Plasma Ordered By: Arturo Naranjo on 03-10-2025 Anion gap [Moles/Vol] 13 mmol/L 5-15 [facility] Automated lymphocyte count a s percentage of total leukocytesOrdered By: Arturo Naranjo on 03-10-2025 Lymphocytes/100 WBC Auto (Unsp spec) 17.5 % Low 19-41 [facility] BUN/creatinine ratioOrdered By: Arturo Naranjo on 03-10-2025 Urea nitrogen/Creatinine [Mass ratio] 25.0 mg/mg High 10-20 [facility] Basophil percentageOrdered B y: Arturo Naranjo on 03-10-2025 Basophils/100 WBC (Bld) 0.8 % 0-1 [facility] Bilirubin Test strip Ql (U)O rdered By: Arturo Naranjo on 03-10-2025 Bilirubin Ql (U) Negative Negative [facility] Bilirubin, totalOrdered By: Arturo Naranjo on 03-10-2025 Bilirubin [Mass/Vol] 0.45 mg/dL 0.00-1.30 [facility] CBC W/Diff, Automatedon 02-16 Absolute Lymph 1.51 X10 3/uL Normal 0.83-4.51 [facility] Comment on above: Performed By: #### L 300.4310, L300.3900 #### [facility] [address] [place], [address] Absolute Neut 6.3 X10 3/uL Normal 2.0-7.7 [facility] Comment on above: Performed By: #### L 300.4310, L300.3900 #### [facility] [address] [place], [address] Basophils/100 WBC (Bld) 0.8 % Normal 0-1 [facility] Comment on above: Performed By: #### L 300.4310, L300.3900 #### [facility] [address] [place], [address] Eosinophils/100 WBC (Bld) 0.9 % Normal 0-5 [facility] Comment on above: Performed By: #### L 300.4310, L300.3900 #### [facility] [address] [place], [address] Erythrocyte distribution width (RBC) [Ratio] 14.1 % Normal 11.6-14.6 [facility] Comment on above: Performed By: #### L 300.4310, L300.3900 #### [facility] [address] [place], [address] Hematocrit (Bld) [Volume fraction] 37.7 % Low 40-54 [facility] Comment on above: Performed By: #### L 300.4310, L300.3900 #### [facility] [address] [place], [address] Hemoglobin (Bld) [Mass/Vol] 12.9 g/dL Low 13.0-16.5 [facility] Comment on above: Performed By: #### L 300.4310, L300.3900 #### [facility] [address] [place], [address] IG% 0.300 Normal 0.0-0.9 [facility] Comment on above: Result Comment: IG% - Immature Granulocytes (promyelocytes, myelocytes and metamyelocytes) > 1% indicates that a LEFT SHIFT is Present. Performed By: #### L 300.4310, L300.3900 #### [facility] [address] [place], [address] Lymphocytes/100 WBC (Bld) 17.5 % Low 19-41 [facility] Comment on above: Performed By: #### L 300.4310, L300.3900 #### [facility] [address] [place], [address] MCH (RBC) [Entitic mass] 32.3 pg High 27.0-32.0 [facility] Comment on above: Performed By: #### L 300.4310, L300.3900 #### [facility] [address] [place], [address] MCHC (RBC) [Mass/Vol] 34.2 g/dL Normal 32-36 [facility] Comment on above: Performed By: #### L 300.4310, L300.3900 #### [facility] [address] [place], [address] MCV (RBC) [Entitic vol] 94.3 fL High 80-94 [facility] Comment on above: Performed By: #### L 300.4310, L300.3900 #### [facility] [address] [place], [address] Monocytes/100 WBC (Bld) 7.2 % Normal 0-10 [facility] Comment on above: Performed By: #### L 300.4310, L300.3900 #### [facility] [address] [place], [address] Neutrophils/100 WBC (Bld) 73.3 % High 47-70 [facility] Comment on above: Performed By: #### L 300.4310, L300.3900 #### [facility] [address] [place], [address] Nucleated RBC (Bld) [#/Vol] 0 10*3/uL Normal 0-5 [facility] Comment on above: Performed By: #### L 300.4310, L300.3900 #### [facility] [address] [place], [address] Platelet mean volume (Bld) [Entitic vol] 9.4 fL Normal 6.2-12.0 [facility] Comment on above: Performed By: #### L 300.4310, L300.3900 #### [facility] [address] [place], [address] Platelets (Bld) [#/Vol] 237 10*3/uL Normal 150-450 [facility] Comment on above: Performed By: #### L 300.4310, L300.3900 #### [facility] [address] [place], [address] RBC (Bld) [#/Vol] 4.00 10*6/uL Low 4.6-6.2 [facility] Comment on above: Performed By: #### L 300.4310, L300.3900 #### [facility] [address] [place], [address] RDW SD 48.0 fl High 35.1-43.9 [facility] Comment on above: Performed By: #### L 300.4310, L300.3900 #### [facility] [address] [place], [address] WBC (Bld) [#/Vol] 8.6 10*3/uL Normal 4.4-11.0 [facility] Comment on above: Performed By: #### L 300.4310, L300.3900 #### [facility] [address] [place], [address] CBC-Complete Blood Cnt No Di ffon 03-10-2025 Erythrocyte distribution width (RBC) [Ratio] 14.0 % Normal 11.6-14.6 [facility] Comment on above: Performed By: #### L 500.2500, L100.0100 #### [facility] [address] [place], [address] Hematocrit (Bld) [Volume fraction] 36.7 % Low 40-54 [facility] Comment on above: Performed By: #### L 500.2500, L100.0100 #### [facility] [address] [place], [address] Hemoglobin (Bld) [Mass/Vol] 12.1 g/dL Low 13.0-16.5 [facility] Comment on above: Performed By: #### L 500.2500, L100.0100 #### [facility] [address] [place], [address] MCH (RBC) [Entitic mass] 31.7 pg Normal 27.0-32.0 [facility] Comment on above: Performed By: #### L 500.2500, L100.0100 #### [facility] [address] [place], [address] MCHC (RBC) [Mass/Vol] 33.0 g/dL Normal 32-36 [facility] Comment on above: Performed By: #### L 500.2500, L100.0100 #### [facility] [address] [place], [address] MCV (RBC) [Entitic vol] 96.1 fL High 80-94 [facility] Comment on above: Performed By: #### L 500.2500, L100.0100 #### [facility] [address] [place], [address] Platelet mean volume (Bld) [Entitic vol] 9.3 fL Normal 6.2-12.0 [facility] Comment on above: Performed By: #### L 500.2500, L100.0100 #### [facility] [address] [place], [address] Platelets (Bld) [#/Vol] 201 10*3/uL Normal 150-450 [facility] Comment on above: Performed By: #### L 500.2500, L100.0100 #### [facility] [address] [place], [address] RBC (Bld) [#/Vol] 3.82 10*6/uL Low 4.6-6.2 [facility] Comment on above: Performed By: #### L 500.2500, L100.0100 #### [facility] [address] [place], [address] RDW SD 49.6 fl High 35.1-43.9 [facility] Comment on above: Performed By: #### L 500.2500, L100.0100 #### [facility] [address] [place], [address] WBC (Bld) [#/Vol] 9.2 10*3/uL Normal 4.4-11.0 [facility] Comment on above: Performed By: #### L 500.2500, L100.0100 #### [facility] [address] [place], [address] Carbon dioxide, total [Moles /volume] in Central venous bloodOrdered By: Arturo Naranjo on 03-10-2025 CO2 [Moles/Vol] 20.3 mmol/L Low 21.0-32.0 [facility] Chloride assayOrdered By: Benji Naranjo on 03-10-2025 Chloride [Moles/Vol] 108 mmol/L 98-108 [facility] Comprehensive Metabolic Prof ilon 03-10-2025 Albumin [Mass/Vol] 3.5 g/dL Normal 3.4-4.8 [facility] Comment on above: Performed By: #### L 300.4310, L300.3900 #### [facility] [address] [place], [address] Albumin/Globulin [Mass ratio] 1.4 {ratio} Normal 0.9-2.4 [facility] Comment on above: Performed By: #### L 300.4310, L300.3900 #### [facility] [address] [place], [address] ALK PHOS 86 U/L Normal 40-129 [facility] Comment on above: Performed By: #### L 300.4310, L300.3900 #### [facility] [address] [place], [address] ALT [Catalytic activity/Vol] 21 U/L Normal <=46 [facility] Comment on above: Performed By: #### L 300.4310, L300.3900 #### [facility] [address] [place], [address] AST [Catalytic activity/Vol] 30 U/L Normal <=37 [facility] Comment on above: Performed By: #### L 300.4310, L300.3900 #### [facility] [address] [place], [address] Bilirubin [Mass/Vol] 0.45 mg/dL Normal 0.00-1.30 [facility] Comment on above: Performed By: #### L 300.4310, L300.3900 #### [facility] [address] [place], [address] BUN/CRE 25.0 RATIO High 10-20 [facility] Comment on above: Performed By: #### L 300.4310, L300.3900 #### [facility] [address] [place], [address] Calcium [Mass/Vol] 9.6 mg/dL Normal 7.6-11.0 [facility] Comment on above: Performed By: #### L 300.4310, L300.3900 #### [facility] [address] [place], [address] Chloride [Moles/Vol] 108 mmol/L Normal 98-108 [facility] Comment on above: Performed By: #### L 300.4310, L300.3900 #### [facility] [address] [place], [address] CO2 [Moles/Vol] 20.3 mmol/L Low 21.0-32.0 [facility] Comment on above: Performed By: #### L 300.4310, L300.3900 #### [facility] [address] [place], [address] Creatinine [Mass/Vol] 1.33 mg/dL High 0.70-1.20 [facility] Comment on above: Performed By: #### L 300.4310, L300.3900 #### [facility] [address] [place], [address] ECRCL 42.96 ml/min Low 50-250 [facility] Comment on above: Performed By: #### L 300.4310, L300.3900 #### [facility] [address] [place], [address] GAP 13 Normal 5-15 [facility] Comment on above: Performed By: #### L 300.4310, L300.3900 #### [facility] [address] [place], [address] GFR/1.73 sq M.predicted among non-blacks MDRD (S/P/Bld) [Vol rate/Area] 52 mL/min/{1.73_m2} Low >60 [facility] Comment on above: Result Comment: mL/m in/1.73m2 CKD-EPI Creatinine Equation (2020) Performed By: #### L 300.4310, L300.3900 #### [facility] [address] [place], [address] Globulin (S) [Mass/Vol] 2.4 g/dL Normal 2.2-4.2 [facility] Comment on above: Performed By: #### L 300.4310, L300.3900 #### [facility] [address] [place], [address] Glucose [Mass/Vol] 127 mg/dL High 70-99 [facility] Comment on above: Performed By: #### L 300.4310, L300.3900 #### [facility] [address] [place], [address] Potassium [Moles/Vol] 4.6 mmol/L Normal 3.3-5.1 [facility] Comment on above: Performed By: #### L 300.4310, L300.3900 #### [facility] [address] [place], [address] Sodium [Moles/Vol] 141 mmol/L Normal 133-145 [facility] Comment on above: Performed By: #### L 300.4310, L300.3900 #### [facility] [address] [place], [address] T PROT 5.9 g/dL Normal 5.9-8.4 [facility] Comment on above: Performed By: #### L 300.4310, L300.3900 #### [facility] [address] [place], [address] Urea nitrogen [Mass/Vol] 33 mg/dL High 4-19 [facility] Comment on above: Performed By: #### L 300.4310, L300.3900 #### [facility] [address] [place], [address] Emergency Department Summary on 03-10-2025 Emergency Department Summary [place] [facility] Medical Records Department [address] [place] [address] Emergency Department Summary 03/10/25 MR#: [id number] Acct: [id number] Name: PACO WHITNEY Rep #: [id number] : 1935 89 From: Arturo Naranjo MD PCP: Dr. Clarice Murillo MD Status:ADM IN Location: [place] [id number] HPI HPI - GI History of Present [...] baby aspirin. No exacerbating or alleviating factors. [facility] Medical History PAD (peripheral artery [...] MDM Mitchell (more content not included)... Normal [facility] Eosinophil percentageOrdered By: Arturo Naranjo on 03-10-2025 Eosinophils/100 WBC (Bld) 0.9 % 0-5 [facility] Erythrocyte distribution wid th ratioOrdered By: Arturo Naranjo on 03-10-2025 Erythrocyte distribution width (RBC) [Ratio] 14.1 % 11.6-14.6 [facility] Erythrocyte distribution wid th standard deviationOrdered By: Arturo Naranjo on 03-10-2025 Erythrocyte distribution width (RBC) [Ratio] 48.0 fl High 35.1-43.9 [facility] Glomerular filtration rate ( GFR) estimation/1.73 sq m using serum, plasma, or whole bOrdered By: Arturo Naranjo on 03-10-2025 GFR/1.73 sq M.predicted among non-blacks MDRD (S/P/Bld) [Vol rate/Area] 52 mL/min/{1.73_m2} Low >60 [facility] Comment on above: mL/min/1.73m2 CKD-EP I Creatinine Equation (2020) H AND P Exam - [place] 03-10-2025 H&P Exam - Hospitalist [facility] Medical Records Department [address] [place] [address] H P Exam - Hospitalist 03/10/251920 MR#: [id number] Acct: [id number] Name: PACO WHITNEY Rep #: [id number] : 1935 89 From: Miller Vides DO PCP: Dr. Clarice Murillo MD Status:ADM IN Location: [facility] [id number] HPI - General General Date of Admission: 03/10/25 Date of Service: 03/10/25 Chief Complaint: Lower GI bleed HPI Narrative PACO WHITNEY, is a 89 M who presented to [facility] ED on 03/10/2025 with lower [...] here this week and is now at [place], and he has been on his normal routine and frequently going back and forth from home to the hospital and now [place]. He has also been eating out with [...] currently. Will be admitted for further management. [facility] Medical History PAD (peripheral artery disease) [...] Respiratory/Chest R (more content not included)... Normal [facility] Hematocrit Auto (Bld) [Volum e fraction]Ordered By: Arturo Naranjo on 03-10-2025 Hematocrit (Bld) [Volume fraction] 37.7 % Low 40-54 [facility] Hemoglobin measurementOrdere d By: Arturo Naranjo on 03-10-2025 Hemoglobin (Bld) [Mass/Vol] 12.9 g/dL Low 13.0-16.5 [facility] Immature granulocytes/100 WB C Auto (Bld)Ordered By: Arturo Naranjo on 03-10-2025 Immature granulocytes/100 WBC (Bld) 0.300 % 0.0-0.9 [facility] Comment on above: IG% - Immature Granu locytes (promyelocytes, myelocytes and metamyelocytes) > 1% indicates that a LEFT SHIFT is Present. Ketones Test strip Ql (U)Ord ered By: Arturo Naranjo on 03-10-2025 Ketones Ql (U) Negative Negative [facility] Laboratory - Chemistry and C hemistry - challengeOrdered By: Arturo Naranjo on 03-10-2025 AST [Catalytic activity/Vol] 30 U/L <38 [facility] Lipaseon 03-10-2025 Lipase [Catalytic activity/Vol] 71 U/L Normal 13-75 [facility] Comment on above: Result Comment: Fabiola harris note: LIPASE revised reference range effective 22. New Lipase methodology. Expected to produce lower values than the previous assay method. NEW Reference Range: 13 - 75 U/L Performed By: #### L 300.4310, L300.3900 #### [facility] Laboratory [facility] [place], [address] Lipase measurementOrdered By : Arturo Naranjo on 03-10-2025 Lipase [Catalytic activity/Vol] 71 U/L 13-75 [facility] Comment on above: Please note:LIPASE r evised reference range effective 22. New Lipase methodology. Expected to produce lower values than the previous assay method. NEW Reference Range: 13 - 75 U/L MCV (mean corpuscular volume ) determinationOrdered By: Arturo Naranjo on 03-10-2025 MCV (RBC) [Entitic vol] 94.3 fL High 80-94 [facility] Mean corpuscular hemoglobin (MCH) determinationOrdered By: Arturo Naranjo on 03-10-2025 MCH (RBC) [Entitic mass] 32.3 pg High 27.0-32.0 [facility] Mean corpuscular hemoglobin concentration (MCHC) determinationOrdered By: Arturo Naranjo on 03-10-2025 MCHC (RBC) [Mass/Vol] 34.2 g/dL 32-36 [facility] Mean platelet volume determi nationOrdered By: Arturo Naranjo on 03-10-2025 Platelet mean volume (Bld) [Entitic vol] 9.4 fL 6.2-12.0 [facility] Microscopic analysis of urin e for red blood cells (RBC)Ordered By: Arturo Naranjo on 03-10-2025 Microscopic analysis of urine for red blood cells (RBC) 0-5 SEEN /hpf 0-5 [facility] Monocyte percentageOrdered B y: Arturo Naranjo on 03-10-2025 Monocytes/100 WBC (Bld) 7.2 % 0-10 [facility] Mucus LM Ql (Urine sed)Order ed By: Arturo Naranjo on 03-10-2025 Mucus Ql (Urine sed) 0 SEEN /hpf [facility] Neutrophil percentageOrdered By: Arturo Naranjo on 03-10-2025 Neutrophils/100 WBC (Bld) 73.3 % High 47-70 [facility] Nitrite Test strip Ql (U)Ord ered By: Arturo Naranjo on 03-10-2025 Nitrite Ql (U) Negative Negative [facility] Nucleated red blood cell per centageOrdered By: Arturo Naranjo on 03-10-2025 Nucleated RBC/100 WBC (Bld) [Ratio] 0 % 0-5 [facility] Platelet countOrdered By: Benji Naranjo on 03-10-2025 Platelets (Bld) [#/Vol] 237 10*3/uL 150-450 [facility] Potassium measurement (mass/ volume)Ordered By: Arturo Naranjo on 03-10-2025 Potassium (Unsp spec) [Mass/Vol] 4.6 mmol/L 3.3-5.1 [facility] Protein Test strip Ql (U)Ord ered By: Arturo Naranjo on 03-10-2025 Protein Ql (U) 30 mg/dl High Negative [facility] RBC Auto (Bld) [#/Vol]Ordere d By: Arturo Naranjo on 03-10-2025 RBC (Bld) [#/Vol] 4.00 10*6/uL Low 4.6-6.2 [facility] Serum creatinine measurement (mass/volume)Ordered By: Arturo Naranjo on 03-10-2025 Creatinine [Mass/Vol] 1.33 mg/dL High 0.70-1.20 [facility] Serum globulin measurementOr dered By: Arturo Naranjo on 03-10-2025 Globulin (S) [Mass/Vol] 2.4 g/dL 2.2-4.2 [facility] Serum glucose measurement (m ass/volume)Ordered By: Arturo Naranjo on 03-10-2025 Glucose [Mass/Vol] 127 mg/dL High 70-99 [facility] Serum or plasma alanine hopkins otransferase (ALT) measurementOrdered By: Arturo Naranjo on 03-10-2025 ALT [Catalytic activity/Vol] 21 U/L <47 [facility] Serum or plasma albumin saige urement (mass/volume)Ordered By: Arturo Naranjo on 03-10-2025 Albumin [Mass/Vol] 3.5 g/dL 3.4-4.8 [facility] Serum or plasma albumin/glob ulin mass ratioOrdered By: Arturo Naranjo on 03-10-2025 Albumin/Globulin [Mass ratio] 1.4 {ratio} 0.9-2.4 [facility] Serum or plasma alkaline jaki sphatase measurementOrdered By: Arturo Naranjo on 03-10-2025 ALP [Catalytic activity/Vol] 86 U/L 40-129 [facility] Serum or plasma calcium saige urement (mass/volume)Ordered By: Arturo Naranjo on 03-10-2025 Calcium [Mass/Vol] 9.6 mg/dL 7.6-11.0 [facility] Serum or plasma urea nitroge n measurement (mass/volume)Ordered By: Arturo Naranjo on 03-10-2025 Urea nitrogen [Mass/Vol] 33 mg/dL High 4-19 [facility] Sodium levelOrdered By: Arturo Naranjo on 03-10-2025 Sodium [Moles/Vol] 141 mmol/L 133-145 [facility] Squamous epithelial cells de tection in urine sediment by light microscopyOrdered By: Arturo Naranjo on 03-10-2025 Epithelial cells.squamous LM Ql (Urine sed) 0-5 SEEN /hpf 0-5 [facility] Stool gastrointestinal hemog lobin detection by immunologic methodOrdered By: Arturo Naranjo on 03-10-2025 Lower GI hemoglobin IA Ql (Stl) Positive Abnormal [facility] Total proteinOrdered By: Ora Naranjo on 03-10-2025 Protein [Mass/Vol] 5.9 g/dL 5.9-8.4 [facility] Urinalysis, Completeon 03-10 EPI,SQUAMOUS 0-5 SEEN Normal 0-5 [facility] Comment on above: Order Comment: HARDY CTOR TO SPECIFY Performed By: #### L 300.4310, L300.3900 #### [facility] [address] [place], [address] RBC 0-5 SEEN Normal 0-5 [facility] Comment on above: Order Comment: HARDY CTOR TO SPECIFY Performed By: #### L 300.4310, L300.3900 #### [facility] [address] [place], [address] WBC 0-5 SEEN Normal 0-5 [facility] Comment on above: Order Comment: HARDY CTOR TO SPECIFY Performed By: #### L 300.4310, L300.3900 #### [facility] [address] [place], [address] BACTERIA 0 SEEN Normal None Seen [facility] Comment on above: Order Comment: HARDY CTOR TO SPECIFY Performed By: #### L 300.4310, L300.3900 #### [facility] [address] [place], [address] Mucus Ql (Urine sed) 0 SEEN Normal [facility] Comment on above: Order Comment: HARDY CTOR TO SPECIFY Performed By: #### L 300.4310, L300.3900 #### [facility] [address] [place], [address] Urine clarityOrdered By: Ora Naranjo on 03-10-2025 Clarity (U) Clear Clear [facility] Urine color determinationOrd ered By: Arturo Naranjo on 03-10-2025 Color (U) Straw Yellow [facility] Urine glucose detectionOrder ed By: Arturo Naranjo on 03-10-2025 Glucose Ql (U) Normal mg/dl Normal [facility] Urine leukocyte esterase det ection by dipstickOrdered By: Arturo Naranjo on 03-10-2025 Leukocyte esterase Test strip Ql (U) Negative Negative [facility] Urine pHOrdered By: Arturo lau on 03-10-2025 pH (U) 7.0 [pH] 5.0 - 8.0 [facility] Urine sediment bacteria coun t by microscopy (number/high power field)Ordered By: Arturo Naranjo on 03-10-2025 Bacteria LM.HPF (Urine sed) [#/Area] 0 /[HPF] None Seen [facility] Urine specific gravity measu rementOrdered By: Arturo Naranjo on 03-10-2025 Specific gravity (U) [Rel density] 1.010 1.002-1.03 0 [facility] Urine urobilinogen measureme ntOrdered By: Arturo Naranjo on 03-10-2025 Urobilinogen Ql (U) 1 mg/dl High Normal [facility] White blood cell (WBC) count Ordered By: Arturo Naranjo on 03-10-2025 WBC (Bld) [#/Vol] 8.6 10*3/uL 4.4-11.0 [facility] White blood cell countOrdere d By: Arturo Naranjo on 03-10-2025 White blood cell count 0-5 SEEN /hpf 0-5 [facility] Crystals, Body Fluidon 03-06 PATH REV Reviewed Normal [facility] Comment on above: Order Comment: Commmicaela nts: Left wrist aspirateComments: Left wrist aspirateReviewed by Dr. Fletcher.Sammie Fletcher MD 03/06/2025 Performed By: #### L 500.2500, L100.0100 #### [facility] [address] [place], [address] Synovial Fluid RBC, WBC AND Diffon 02-26-2025 PATH COM/SYFL Reviewed Normal [facility] Comment on above: Order Comment: Gina nts: Left wrist aspirateComments: Left wrist aspirate Result Comment: NEGA TIVE FOR CRYSTALS. Sammie Fletcher MD 02/25/2025 AMENDED REPORT 02/26/25 0848 PATH COM/SYFL previously reported as: May follow Performed By: #### L 500.2500, L100.0100 #### [facility] [address] [place], [place], [address] CNOVon 02-22-2025 CNOV Office Visit (MALINDA ) PACO WHITNEY ([id number]) 1935 Melanie Date Time Provider Department 02/22/25 [...] PA-C Department of Orthopaedics Orthopaedics [address] [facility] [address] Dept: [phone] Dept February 22, 2025 CHIEF COMPLAINT: Pain [...] (M17.11) - Chronic right knee OA, likely [id number]. - Ordered new X-rays of the right [...] these instructions. Informed Consent Consent Obtained: Verbal Beryl Protocol A moment to CARE was complete (more content not included)... Normal [facility] XR KNEE 4V AP/PA BOTH+LAT/ME R [...] medial and patellofemoral joint compartment narrowing with [id number] appearance and tricompartment spur formation. Chondrocalcinosis. No fracture or dislocation. Small joint effusion. Advanced vascular calcifications. Significant varus angulation. 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: [employer] Transcribe Date/Time: Feb 24 2025 5:22P Dictated by : SKYLAR JAIN MD This examination was interpreted and the report reviewed and electronically signed by: SKYLAR JAIN MD on Feb 24 2025 5:23PM EST [id number] Normal [facility] CNOVon 02-05-2025 CNOV Office Visit (FAMPWS ) PACO WHITNEY Josefina ([id number]) 1935 M Date Time Provider Department 02/05/25 3:00 PM [facility] During [facility] visit today, we recorded the following information about you: Pulse Respiration Blood pressure Weight 76/minute 16/minute 110/68 86.4 kg Clarice Murillo MD 02/05/2025 3:42 PM Signed Chief Complaint Patient presents with: 6 Month Exam HPI Paco Rocha Devonte is a 89 year old male who presents here today for 6 month follow up. Pt recently discharged from [facility] to SNF as pt is not able to care for pt any longer. 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 [...] W/COLLJ SPEC WHEN PFRMD 09/19/2011 Colonoscopy [facility] ENDOVASCULAR ANEURYSM REPAIR 01/2013 with bi-liac [...] tamsulosin ( (more content not included)... Normal [facility] XR SHLDR >/=3V AP/TIA AP/OTH R [...] are unremarkable. IMPRESSION: Advanced bilateral glenohumeral osteoarthritis. 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 IMPRESSION: Advanced bilateral glenohumeral osteoarthritis. 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: [facility] Transcribe Date/Time: Feb 08 2025 7:55A Dictated by : FRANCIA EDEN MD This examination was interpreted and the report reviewed and electronically signed by: FRANCIA EDEN MD on Feb 08 2025 7:56AM EST [id number] Normal [facility] Comprehensive metabolic 2000 panelon 01-30-2025 Albumin [Mass/Vol] 3.8 g/dL Low 3.9-4.9 [facility] Comment on above: Order Comment: Speci men Type: BLOOD SPECIMENOrdering Facility: [facility] Address: [address] [place] [address] Performed By: #### 2 4323-8, 86503-8 ####[facility] LABCLIA [id number] [place] [address] [place] ALP [Catalytic activity/Vol] 91 U/L Normal 38-113 [facility] Comment on above: Order Comment: Speci men Type: BLOOD SPECIMENOrdering Facility: [facility] Address: [address] [place] [address] Performed By: #### 2 4323-8, 07846-1 ####[facility] LABCLIA [id number] [place] [address] [place] ALT [Catalytic activity/Vol] 15 U/L Normal 10-54 [facility] Comment on above: Order Comment: Speci men Type: BLOOD SPECIMENOrdering Facility: [facility] Address: [address] [place] [address] Performed By: #### 2 4323-8, 75912-3 ####[facility] LABCLIA [id number] [place] [id number] [place] Anion gap [Moles/Vol] 10 mmol/L Normal 8-15 [facility] Comment on above: Order Comment: Speci men Type: BLOOD SPECIMENOrdering Facility: [facility] Address: [address] [place] [address] Performed By: #### 2 4323-8, 18764-1 ####[facility] LABCLIA [id number] [address] [address] [place] AST [Catalytic activity/Vol] 29 U/L Normal 14-40 [facility] Comment on above: Order Comment: Speci men Type: BLOOD SPECIMENOrdering Facility: [facility] Address: [address] [place] [address] Performed By: #### 2 4323-8, 14476-0 ####[facility] LABIA [id number] [place] [address] [place] Bilirubin [Mass/Vol] 0.9 mg/dL Normal 0.2-1.3 [facility] Comment on above: Order Comment: Speci men Type: BLOOD SPECIMENOrdering Facility: [facility] Address: [address] [place] [address] Performed By: #### 2 4323-8, 54502-9 ####[facility] LABIA [id number] [place] [address] [place] Calcium [Mass/Vol] 10.2 mg/dL Normal 8.5-10.2 [facility] Comment on above: Order Comment: Speci men Type: BLOOD SPECIMENOrdering Facility: [facility] Address: [address] [place] [address] Performed By: #### 2 4323-8, 98171-4 ####[facility] LABIA [id number] [place] [address] [place] Chloride [Moles/Vol] 107 mmol/L Normal 98-107 [facility] Comment on above: Order Comment: Speci men Type: BLOOD SPECIMENOrdering Facility: [facility] Address: [address] [place] [address] Performed By: #### 2 4323-8, 93407-4 ####[facility] LABIA [id number] [place] [id number] [place] CO2 [Moles/Vol] 25 mmol/L Normal 22-30 [facility] Comment on above: Order Comment: Speci men Type: BLOOD SPECIMENOrdering Facility: [facility] Address: [address] [place] [address] Performed By: #### 2 4323-8, 67080-0 ####[facility] LABCLIA [id number] [address] [address] [place] Creatinine [Mass/Vol] 1.11 mg/dL Normal 0.73-1.22 [facility] Comment on above: Order Comment: Speci men Type: BLOOD SPECIMENOrdering Facility: [facility] Address: [address] [place] [address] Performed By: #### 2 4323-8, ####[facility] LABCLIA [id number] [place] [address] [place] eGFRcr SerPlBld CKD-EPI 2020 64 mL/min/1.73m??? Normal >=60 [facility] Comment on above: Order Comment: Speci men Type: BLOOD SPECIMENOrdering Facility: [facility] Address: [address] [place] [address] Result Comment: Toya mated Glomerular Filtration Rate [...] actual GFR. Performed By: #### 2 4323-8, 85448-6 ####[facility] LABCLIA [id number] [place] [id number] [place] Glucose [Mass/Vol] 90 mg/dL Normal 74-99 [facility] Comment on above: Order Comment: Speci men Type: BLOOD SPECIMENOrdering Facility: [facility] Address: [address] [place] [address] Result Comment: The [place] Diabetes Association (ADA) provides guidance for cutoff [...] Standards of Medical Care in Diabetes 2016, [place] Diabetes Association. Diabetes Care. 2016.39(Suppl 1). Performed By: #### 2 4323-8, 84499-0 ####[facility] LABIA [id number] [place] [address] [place] Potassium [Moles/Vol] 4.8 mmol/L Normal 3.7-5.1 [facility] Comment on above: Order Comment: Speci men Type: BLOOD SPECIMENOrdering Facility: [facility] Address: [address] [place] [address] Performed By: #### 2 4323-8, 52227-4 ####[facility] LABIA [id number] [place] [address] [place] Protein [Mass/Vol] 6.5 g/dL Normal 6.3-8.0 [facility] Comment on above: Order Comment: Speci men Type: BLOOD SPECIMENOrdering Facility: [facility] Address: [address] [place] [address] Performed By: #### 2 4323-8, 17711-6 ####[facility] LABIA [id number] [place] [id number] [place] Sodium [Moles/Vol] 142 mmol/L Normal 136-144 [facility] Comment on above: Order Comment: Speci men Type: BLOOD SPECIMENOrdering Facility: [facility] Address: [address] [place] [address] Performed By: #### 2 4323-8, 90843-2 ####[facility] LABCLIA [id number] [place] [address] [place] Urea nitrogen [Mass/Vol] 29 mg/dL High 9-24 [facility] Comment on above: Order Comment: Zach vinson Type: BLOOD SPECIMENOrdering Facility: [facility] Address: [address] [place] [address] Performed By: #### 2 4323-8, 46569-1 ####[facility] LABCLIA [id number] [place] [address] [place] HbA1c (Bld)on 01-30-2025 Average glucose Estimated from glycated hemoglobin (Bld) [Mass/Vol] 88 mg/dL Normal [facility] Comment on above: Order Comment: [facility] Type: BLOOD SPECIMEN Ordering Facility: [facility] Address: [address] [place] [address] Result Comment: eAG: (Estimated average glucose) is a calculated value from HgbA1c and is surgical sales representative of the average blood glucose level in the last 2-3 month period. Performed By: #### 5 5454-3 #### [facility] CLIA [id number] [address] [place] [address] [place] HbA1c (Bld) [Mass fraction] 4.7 % Normal 4.3-5.6 [facility] Comment on above: Order Comment: Maryi [facility] Type: BLOOD SPECIMEN Ordering Facility: [facility] Address: [address] [place] [address] Result Comment: [place] Diabetes Association guidelines indicate that patients with HgbA1c in the range 5.7-6.4% are at increased risk for development of diabetes, and intervention by lifestyle modification may be beneficial. HgbA1c greater or equal to 6.5% is considered diagnostic of diabetes. Performed By: #### 5 5454-3 #### [facility] CLIA [id number] [address] [place] [address] [place] Lipid 1996 panelon 5 Cholesterol [Mass/Vol] 143 mg/dL Normal <200 [facility] Comment on above: Order Comment: Speci men Type: BLOOD SPECIMENOrdering Facility: [facility] Address: [address] [place] [address] Result Comment: <200 mg/dL, Desirable 200-239 mg/dL, Borderline high >239 mg/dL, High Performed By: #### 2 4323-8, 44658-5 ####[facility] LABCLIA [id number] [facility] [address] [place] [address] [place] Cholesterol in HDL [Mass/Vol] 29 mg/dL Low >39 [facility] Comment on above: Order Comment: Speci men Type: BLOOD SPECIMENOrdering Facility: [facility] Address: [address] [place] [address] Result Comment: 40-5 9 mg/dL, Acceptable >59 mg/dL, High: Negative risk factor for coronary heart disease <40 mg/dL, Low: Positive risk factor for coronary heart disease Performed By: #### 2 4323-8, 20779-0 ####[facility] LABCLIA [id number] [address], [facility] [facility] [place] Cholesterol in LDL [Mass/Vol] 86 mg/dL Normal <100 [facility] Comment on above: Order Comment: Speci men Type: BLOOD SPECIMENOrdering Facility: [facility] Address: [address] [place] [address] Result Comment: <100 mg/dL, Optimal 100-129 mg/dL, Near optimal/above optimal 130-159 mg/dL, Borderline high 160-189 mg/dL, High >189 mg/dL, Very high Secondary prevention optimal LDL Cholesterol levels are recommended to be <70 mg/dL LDL cholesterol is calculated using the Torres-NIH equation. Performed By: #### 2 4323-8, 97125-4 ####[facility] LABCLIA [id number] [facility] [place] [id number] [address] [place] Cholesterol in LDL/Cholesterol in HDL [Mass ratio] 2.97 {ratio} High <2.54 [facility] Comment on above: Order Comment: Speci men Type: BLOOD SPECIMENOrdering Facility: [facility] Address: [address] [place] [address] Result Comment: Arnoldo ross: 1. National Cholesterol Education Program ATP III Guideline At-A-Glance Quick Desk Reference: National Heart, Lung, and Blood [place]. National Institutes of Health. 2001: NIH Publication No. 01-3305. 2. An International Atherosclerosis Society position paper: global recommendations for the management of dyslipidemia: executive summary, Atherosclerosis. 2014: 232(2):410-413. Performed By: #### 2 4323-8, 34901-2 ####[facility] LABCLIA [id number] [place] [address] [place] Cholesterol in VLDL [Mass/Vol] 25 mg/dL Normal <30 [facility] Comment on above: Order Comment: Maryi karel Type: BLOOD SPECIMENOrdering Facility: [facility] Address: [address] [place] [address] Performed By: #### 2 4323-8, 84957-3 ####[facility] LABCLIA [id number] [place] [address] [place] Cholesterol non HDL [Mass/Vol] 114 mg/dL Normal <130 [facility] Comment on above: Order Comment: Marychichi vinson Type: BLOOD SPECIMENOrdering Facility: [facility] Address: [address] [place] [address] Result Comment: <130 mg/dL, Optimal 130-159 mg/dL, Near optimal/above optimal 160-189 mg/dL, Borderline high 190-219 mg/dL, High >219 mg/dL, Very high Secondary prevention optimal non HDL Cholesterol levels are recommended to be <100 mg/dL Performed By: #### 2 4323-8, 59925-2 ####[facility] LABCLIA [id number] [address] [address] [place] Cholesterol.total/Chol esterol in HDL [Mass ratio] 4.93 {ratio} Normal <5.10 [facility] Comment on above: Order Comment: Speci men Type: BLOOD SPECIMENOrdering Facility: [facility] Address: [address] [place] [address] Performed By: #### 2 4323-8, 22522-9 ####[facility] LABCLIA [id number] [address] [address] [place] FASTING TIME 12 hrs Normal [facility] Comment on above: Order Comment: Speci men Type: BLOOD SPECIMENOrdering Facility: [facility] Address: [address] [place] [address] Performed By: #### 2 4323-8, 81919-9 ####[facility] LABCLIA [id number] [address] [address] [place] Triglyceride [Mass/Vol] 158 mg/dL High <150 [facility] Comment on above: Order Comment: Speci men Type: BLOOD SPECIMENOrdering Facility: [facility] Address: [address] [place] [address] Result Comment: <150 mg/dL, Normal 150-199 mg/dL, Borderline high 200-499 mg/dL, High >499 mg/dL, Very high Performed By: #### 2 4323-8, 19986-8 ####[facility] LABCLIA [id number] [address] [address] [place] Body Fluid Culton 11-14-2024 BFC Left wrist aspirate No growth aerobically. Normal [facility] Comment on above: Performed By: #### L 100.0500, L500.2500 #### [facility] [address] [place], [place], [id number] Plastic Surgery Visit Report on 11-13-2024 Plastic Surgery Visit Report [facility] Plastic Reconstructive Surgery [address], [address] [place] [address] OFFICE VISIT Date of Service: 11/13/24 MR#: [id number] Acct: [id number] Name: PACO WHITNEY Rep #: [id number] : 1935 Provider: Dr. Dennis Rocha MD Age/Sex: 89/M Location: [place] [address] Status: Signed Intake Vital Signs 3 11/08/24 [...] is a an 89-year-old male admitted to [facility] on 08 November 2024 for [...] Clinical Qu (more content not included)... Normal [facility] Basic Metabolic Profile (BMP )on 11-11-2024 BUN Normal 4-19 [facility] Comment on above: Result Comment: Canc elled via OM: Order cancelled - Patient discharged Performed By: #### L 500.2500, L100.0100 #### [facility] [address] [facility] [address] BUN/CRE Normal 10-20 [facility] Comment on above: Result Comment: Canc elled via OM: Order cancelled - Patient discharged Performed By: #### L 500.2500, L100.0100 #### [facility] [address] [facility] [address] Calcium Normal 7.6-11.0 [facility] Comment on above: Result Comment: Canc elled via OM: Order cancelled - Patient discharged Performed By: #### L 500.2500, L100.0100 #### [facility] [address] [place], [address] CL Normal 98-108 [facility] Comment on above: Result Comment: Canc elled via OM: Order cancelled - Patient discharged Performed By: #### L 500.2500, L100.0100 #### [facility] [address] [facility] [address] CO2 Normal 21.0-32.0 [facility] Comment on above: Result Comment: Canc elled via OM: Order cancelled - Patient discharged Performed By: #### L 500.2500, L100.0100 #### [facility] [address] [place], [address] CREAT,SERUM Normal 0.70-1.20 [facility] Comment on above: Result Comment: Canc elled via OM: Order cancelled - Patient discharged Performed By: #### L 500.2500, L100.0100 #### [facility] [address] [place], [address] eGFR Normal >60 [facility] Comment on above: Result Comment: Canc elled via OM: Order cancelled - Patient discharged Performed By: #### L 500.2500, L100.0100 #### [facility] [address] [place], [address] GAP Normal 5-15 [facility] Comment on above: Result Comment: Canc elled via OM: Order cancelled - Patient discharged Performed By: #### L 500.2500, L100.0100 #### [facility] [address] [place], [address] GLU Normal 70-99 [facility] Comment on above: Result Comment: Canc elled via OM: Order cancelled - Patient discharged Performed By: #### L 500.2500, L100.0100 #### [facility] [address] [place], [address] Potassium Normal 3.3-5.1 [facility] Comment on above: Result Comment: Canc elled via OM: Order cancelled - Patient discharged Performed By: #### L 500.2500, L100.0100 #### [facility] [address] [place], [address] Basic Metabolic Profile (BMP) Normal 133-145 [facility] Comment on above: Result Comment: Canc elled via OM: Order cancelled - Patient discharged Performed By: #### L 500.2500, L100.0100 #### [facility] [address] [place], [address] CBC W/Diff, Automatedon 04-2 Absolute Neut Normal 2.0-7.7 [facility] Comment on above: Result Comment: Canc elled via OM: Order cancelled - Patient discharged Performed By: #### L 500.2500, L100.0100 #### [facility] [address] [place], [address] HCT Normal 40-54 [facility] Comment on above: Result Comment: Canc elled via OM: Order cancelled - Patient discharged Performed By: #### L 500.2500, L100.0100 #### [facility] [address] [place], [address] HGB Normal 13.0-16.5 [facility] Comment on above: Result Comment: Canc elled via OM: Order cancelled - Patient discharged Performed By: #### L 500.2500, L100.0100 #### [facility] [address] [place], [address] MCH Normal 27.0-32.0 [facility] Comment on above: Result Comment: Canc elled via OM: Order cancelled - Patient discharged Performed By: #### L 500.2500, L100.0100 #### [facility] [address] [place], [address] MCHC Normal 32-36 [facility] Comment on above: Result Comment: Canc elled via OM: Order cancelled - Patient discharged Performed By: #### L 500.2500, L100.0100 #### [facility] [address] [place], [address] MCV Normal 80-94 [facility] Comment on above: Result Comment: Canc elled via OM: Order cancelled - Patient discharged Performed By: #### L 500.2500, L100.0100 #### [facility] [address] [place], [address] NEUT% Normal 47-70 [facility] Comment on above: Result Comment: Canc elled via OM: Order cancelled - Patient discharged Performed By: #### L 500.2500, L100.0100 #### [facility] [address] [place], [address] PLT Normal 150-450 [facility] Comment on above: Result Comment: Canc elled via OM: Order cancelled - Patient discharged Performed By: #### L 500.2500, L100.0100 #### [facility] [address] [place], [address] RBC Normal 4.6-6.2 [facility] Comment on above: Result Comment: Canc elled via OM: Order cancelled - Patient discharged Performed By: #### L 500.2500, L100.0100 #### [facility] [address] [place], [address] RDW CV Normal 11.6-14.6 [facility] Comment on above: Result Comment: Canc elled via OM: Order cancelled - Patient discharged Performed By: #### L 500.2500, L100.0100 #### [facility] [address] [place], [address] RDW SD Normal 35.1-43.9 [facility] Comment on above: Result Comment: Canc elled via OM: Order cancelled - Patient discharged Performed By: #### L 500.2500, L100.0100 #### [facility] [address] [place], [address] WBC Normal 4.4-11.0 [facility] Comment on above: Result Comment: Canc elled via OM: Order cancelled - Patient discharged Performed By: #### L 500.2500, L100.0100 #### [facility] [address] [place], [address] Culture, Anaerobic Any Sourc sayda 11-11-2024 CUAN Left wrist aspirate No anaerobic bacteria isolated. Normal [facility] Comment on above: Performed By: #### L 500.2500, L100.0100 #### [facility] [address] [place], [address] Absolute lymphocyte countOrd ered By: Riky Li on 11-10-2024 Lymphocytes Auto (Unsp spec) [#/Vol] 1.91 10*3/uL 0.83-4.51 [facility] Absolute neutrophil countOrd ered By: [facility] Guillermo on 11-10-2024 Neutrophils (Bld) [#/Vol] 4.9 10*3/uL 2.0-7.7 [facility] Anion gap in Serum or Plasma Ordered By: Rikyhina Li on 11-10-2024 Anion gap [Moles/Vol] 9 mmol/L 5-15 [facility] Automated lymphocyte count a s percentage of total leukocytesOrdered By: Riky Li on 11-10-2024 Lymphocytes/100 WBC Auto (Unsp spec) 24.1 % 19-41 [facility] BUN/creatinine ratioOrdered By: Rikyglen Li on 11-10-2024 Urea nitrogen/Creatinine [Mass ratio] 19.7 mg/mg 10-20 [facility] Basic Metabolic Profile (BMP )on 11-10-2024 BUN/CRE 19.7 RATIO Normal 10-20 [facility] Comment on above: Performed By: #### L 500.2500, L501.2300 #### [facility] [address] [place], [address] Calcium [Mass/Vol] 9.1 mg/dL Normal 7.6-11.0 [facility] Comment on above: Performed By: #### L 500.2500, L501.2300 #### [facility] [address] [place], [address] Chloride [Moles/Vol] 105 mmol/L Normal 98-108 [facility] Comment on above: Performed By: #### L 500.2500, L501.2300 #### [facility] [address] [place], [address] CO2 [Moles/Vol] 24.1 mmol/L Normal 21.0-32.0 [facility] Comment on above: Performed By: #### L 500.2500, L501.2300 #### [facility] [address] [place], [address] Creatinine [Mass/Vol] 1.19 mg/dL Normal 0.70-1.20 [facility] Comment on above: Performed By: #### L 500.2500, L501.2300 #### [facility] [address] [place], [address] ECRCL 48.56 ml/min Low 50-250 [facility] Comment on above: Performed By: #### L 500.2500, L501.2300 #### [facility] [address] [place], [address] GAP 9 Normal 5-15 [facility] Comment on above: Performed By: #### L 500.2500, L501.2300 #### [facility] [address] [place], [address] GFR/1.73 sq M.predicted among non-blacks MDRD (S/P/Bld) [Vol rate/Area] 59 mL/min/{1.73_m2} Low >60 [facility] Comment on above: Result Comment: mL/m in/1.73m2 CKD-EPI Creatinine Equation (2020) Performed By: #### L 500.2500, L501.2300 #### [facility] [address] [place], [address] Glucose [Mass/Vol] 101 mg/dL High 70-99 [facility] Comment on above: Performed By: #### L 500.2500, L501.2300 #### [facility] [address] [place], [address] Potassium [Moles/Vol] 4.3 mmol/L Normal 3.3-5.1 [facility] Comment on above: Performed By: #### L 500.2500, L501.2300 #### [facility] [address] [place], [address] Sodium [Moles/Vol] 137 mmol/L Normal 133-145 [facility] Comment on above: Performed By: #### L 500.2500, L501.2300 #### [facility] [address] [place], [address] Urea nitrogen [Mass/Vol] 23 mg/dL High 4-19 [facility] Comment on above: Performed By: #### L 500.2500, L501.2300 #### [facility] [address] [place], [address] Basophil percentageOrdered B y: Riky Li on 11-10-2024 Basophils/100 WBC (Bld) 0.6 % 0-1 [facility] CBC W/Diff, Automatedon 10-17 Absolute Lymph 1.91 X10 3/uL Normal 0.83-4.51 [facility] Comment on above: Performed By: #### L 300.4310, L300.3900 #### [facility] [address] [place], [address] Absolute Neut 4.9 X10 3/uL Normal 2.0-7.7 [facility] Comment on above: Performed By: #### L 300.4310, L300.3900 #### [facility] [address] [place], [address] Basophils/100 WBC (Bld) 0.6 % Normal 0-1 [facility] Comment on above: Performed By: #### L 300.4310, L300.3900 #### [facility] [address] [place], [address] Eosinophils/100 WBC (Bld) 2.4 % Normal 0-5 [facility] Comment on above: Performed By: #### L 300.4310, L300.3900 #### [facility] [address] [place], [address] Erythrocyte distribution width (RBC) [Ratio] 14.0 % Normal 11.6-14.6 [facility] Comment on above: Performed By: #### L 300.4310, L300.3900 #### [facility] [address] [place], [address] Hematocrit (Bld) [Volume fraction] 38.7 % Low 40-54 [facility] Comment on above: Performed By: #### L 300.4310, L300.3900 #### [facility] [address] [place], [address] Hemoglobin (Bld) [Mass/Vol] 12.9 g/dL Low 13.0-16.5 [facility] Comment on above: Performed By: #### L 300.4310, L300.3900 #### [facility] [address] [place], [address] IG% 0.400 Normal 0.0-0.9 [facility] Comment on above: Result Comment: IG% - Immature Granulocytes (promyelocytes, myelocytes and metamyelocytes) > 1% indicates that a LEFT SHIFT is Present. Performed By: #### L 300.4310, L300.3900 #### [facility] [address] [place], [address] Lymphocytes/100 WBC (Bld) 24.1 % Normal 19-41 [facility] Comment on above: Performed By: #### L 300.4310, L300.3900 #### [facility] [address] [place], [address] MCH (RBC) [Entitic mass] 32.2 pg High 27.0-32.0 [facility] Comment on above: Performed By: #### L 300.4310, L300.3900 #### [facility] [address] [place], [address] MCHC (RBC) [Mass/Vol] 33.3 g/dL Normal 32-36 [facility] Comment on above: Performed By: #### L 300.4310, L300.3900 #### [facility] [address] [place], [address] MCV (RBC) [Entitic vol] 96.5 fL High 80-94 [facility] Comment on above: Performed By: #### L 300.4310, L300.3900 #### [facility] [address] [place], [address] Monocytes/100 WBC (Bld) 10.6 % High 0-10 [facility] Comment on above: Performed By: #### L 300.4310, L300.3900 #### [facility] [address] [place], [address] Neutrophils/100 WBC (Bld) 61.9 % Normal 47-70 [facility] Comment on above: Performed By: #### L 300.4310, L300.3900 #### [facility] [address] [place], [address] Nucleated RBC (Bld) [#/Vol] 0 10*3/uL Normal 0-5 [facility] Comment on above: Performed By: #### L 300.4310, L300.3900 #### [facility] [address] [place], [address] Platelet mean volume (Bld) [Entitic vol] 9.4 fL Normal 6.2-12.0 [facility] Comment on above: Performed By: #### L 300.4310, L300.3900 #### [facility] [address] [place], [address] Platelets (Bld) [#/Vol] 181 10*3/uL Normal 150-450 [facility] Comment on above: Performed By: #### L 300.4310, L300.3900 #### [facility] [address] [place], [address] RBC (Bld) [#/Vol] 4.01 10*6/uL Low 4.6-6.2 [facility] Comment on above: Performed By: #### L 300.4310, L300.3900 #### [facility] [address] [place], [address] RDW SD 49.6 fl High 35.1-43.9 [facility] Comment on above: Performed By: #### L 300.4310, L300.3900 #### [facility] [address] [place], [address] WBC (Bld) [#/Vol] 7.9 10*3/uL Normal 4.4-11.0 [facility] Comment on above: Performed By: #### L 300.4310, L300.3900 #### [facility] [address] [place], [address] Carbon dioxide, total [Moles /volume] in Central venous bloodOrdered By: Riky Li on 11-10-2024 CO2 [Moles/Vol] 24.1 mmol/L 21.0-32.0 [facility] Chloride assayOrdered By: Moses Li on 11-10-2024 Chloride [Moles/Vol] 105 mmol/L 98-108 [facility] Discharge Instructionon 10-17 Discharge Instruction [facility] Medical Records Department [address] [place] [address] Instructions for Home/Discharge Instructions 11/10/24 0940 MR#: [id number] Acct: [id number] Name: PACO WHITNEY Rep #: [id number] : 1935 89 From: Riky Li MD [...] clinic in 3 days at [facility] on Tuesday, 13 November 2024, Discharge Orders/Prescriptions [...] (Follow-up in 3 days at [facility] in clinic) Disposition Disposition (needs filled in before D/C Order can be placed): Home, Self Care 11/10/24 0960 Riky Li MD CC: Dr. Evelyn Doss, DO; Dr. Clarice Murillo MD Signed Normal [facility] Eosinophil percentageOrdered By: Riky Li on 11-10-2024 Eosinophils/100 WBC (Bld) 2.4 % 0-5 [facility] Erythrocyte distribution wid th (RBC) [Ratio]Ordered By: Riky Li on 11-10-2024 Erythrocyte distribution width (RBC) [Entitic vol] 49.6 fL High 35.1-43.9 [facility] Erythrocyte distribution wid th ratioOrdered By: Riky Li on 11-10-2024 Erythrocyte distribution width (RBC) [Ratio] 14.0 % 11.6-14.6 [facility] Erythrocyte distribution wid th standard deviationOrdered By: Riky Li on 11-10-2024 Erythrocyte distribution width (RBC) [Ratio] 49.6 fl High 35.1-43.9 [facility] Estimation of creatinine alan aranceOrdered By: Riky Li on 11-10-2024 Estimated Creatinine Clearance Calc 48.56 ml/min Low 50-250 [facility] GFR/1.73 sq M.predicted mauro g non-blacks MDRD (S/P/Bld) [Vol rate/Area]Ordered By: Riky Li on 11-10-2024 Estimated GFR (MDRD) Non-Af Amer 59 Low >60 [facility] Comment on above: mL/min/1.73m2 CKD-EP I Creatinine Equation (2020) Glomerular filtration rate ( GFR) estimation/1.73 sq m using serum, plasma, or whole bOrdered By: Riky Li on 11-10-2024 GFR/1.73 sq M.predicted among non-blacks MDRD (S/P/Bld) [Vol rate/Area] 59 mL/min/{1.73_m2} Low >60 [facility] Comment on above: mL/min/1.73m2 CKD-EP I Creatinine Equation (2020) Hematocrit Auto (Bld) [Volum e fraction]Ordered By: Riky Li on 11-10-2024 Hematocrit (Bld) [Volume fraction] 38.7 % Low 40-54 [facility] Hemoglobin measurementOrdere d By: Riky Li on 11-10-2024 Hemoglobin (Bld) [Mass/Vol] 12.9 g/dL Low 13.0-16.5 [facility] Immature granulocytes/100 WB C Auto (Bld)Ordered By: Riky Li on 11-10-2024 Immature granulocytes/100 WBC (Bld) 0.400 % 0.0-0.9 [facility] Comment on above: IG% - Immature Granu locytes (promyelocytes, myelocytes and metamyelocytes) > 1% indicates that a LEFT SHIFT is Present. Lymphocytes Auto (Unsp spec) [#/Vol]Ordered By: Riky Li on 11-10-2024 Lymphocytes (Bld) [#/Vol] 1.91 10*3/uL 0.83-4.51 [facility] Lymphocytes/100 WBC Auto (Un sp spec)Ordered By: Riky Li on 11-10-2024 Lymphocytes/100 WBC (Bld) 24.1 % 19-41 [facility] MCV (mean corpuscular volume ) determinationOrdered By: Riky Li on 11-10-2024 MCV (RBC) [Entitic vol] 96.5 fL High 80-94 [facility] Mean corpuscular hemoglobin (MCH) determinationOrdered By: Riky Li on 11-10-2024 MCH (RBC) [Entitic mass] 32.2 pg High 27.0-32.0 [facility] Mean corpuscular hemoglobin concentration (MCHC) determinationOrdered By: Riky Li on 11-10-2024 MCHC (RBC) [Mass/Vol] 33.3 g/dL 32-36 [facility] Mean platelet volume determi nationOrdered By: Riky Li on 11-10-2024 Platelet mean volume (Bld) [Entitic vol] 9.4 fL 6.2-12.0 [facility] Monocyte percentageOrdered B y: Riky Li on 11-10-2024 Monocytes/100 WBC (Bld) 10.6 % High 0-10 [facility] Neutrophil percentageOrdered By: Riky Li on 11-10-2024 Neutrophils/100 WBC (Bld) 61.9 % 47-70 [facility] Nucleated red blood cell per centageOrdered By: Riky Li on 11-10-2024 Nucleated RBC/100 WBC (Bld) [Ratio] 0 % 0-5 [facility] Phosphoruson 11-10-2024 Phosphate [Mass/Vol] 3.3 mg/dL Normal 2.7-4.5 [facility] Comment on above: Performed By: #### L 500.2500, L501.2300 #### [facility] [address] [place], [address] Platelet countOrdered By: Moses Li on 11-10-2024 Platelets (Bld) [#/Vol] 181 10*3/uL 150-450 [facility] Potassium (Unsp spec) [Mass/ Vol]Ordered By: Riky Li on 11-10-2024 Potassium [Moles/Vol] 4.3 mmol/L 3.3-5.1 [facility] Potassium measurement (mass/ volume)Ordered By: Riky Li on 11-10-2024 Potassium (Unsp spec) [Mass/Vol] 4.3 mmol/L 3.3-5.1 [facility] RBC Auto (Bld) [#/Vol]Ordere d By: Riky Li on 11-10-2024 RBC (Bld) [#/Vol] 4.01 10*6/uL Low 4.6-6.2 [facility] Serum creatinine measurement (mass/volume)Ordered By: Riky Li on 11-10-2024 Creatinine [Mass/Vol] 1.19 mg/dL 0.70-1.20 [facility] Serum glucose measurement (m ass/volume)Ordered By: Riky Li on 11-10-2024 Glucose [Mass/Vol] 101 mg/dL High 70-99 [facility] Serum or plasma calcium saige urement (mass/volume)Ordered By: Riky Li on 11-10-2024 Calcium [Mass/Vol] 9.1 mg/dL 7.6-11.0 [facility] Serum or plasma urea nitroge n measurement (mass/volume)Ordered By: Riky Li on 11-10-2024 Urea nitrogen [Mass/Vol] 23 mg/dL High 4-19 [facility] Serum phosphorus measurement Ordered By: Evelyn Mccall on 11-10-2024 Phosphorus Level 3.3 mg/dL 2.7-4.5 [facility] Sodium levelOrdered By: Mike Li on 11-10-2024 Sodium [Moles/Vol] 137 mmol/L 133-145 [facility] White blood cell (WBC) count Ordered By: Riky Li on 11-10-2024 WBC (Bld) [#/Vol] 7.9 10*3/uL 4.4-11.0 [facility] Bilirubin, totalOrdered By: Evelyn Mccall on 11-09-2024 Bilirubin [Mass/Vol] 0.71 mg/dL 0.00-1.30 [facility] CBC W/Diff, Automatedon 10-17 Absolute Lymph 1.82 X10 3/uL Normal 0.83-4.51 [facility] Comment on above: Performed By: #### L 500.2500, L100.0100 #### [facility] [address] [place], [address] Absolute Neut 5.8 X10 3/uL Normal 2.0-7.7 [facility] Comment on above: Performed By: #### L 500.2500, L100.0100 #### [facility] [address] [place], [address] Basophils/100 WBC (Bld) 0.6 % Normal 0-1 [facility] Comment on above: Performed By: #### L 500.2500, L100.0100 #### [facility] [address] [facility] [place], [address] Eosinophils/100 WBC (Bld) 2.2 % Normal 0-5 [facility] Comment on above: Performed By: #### L 500.2500, L100.0100 #### [facility] [address] [place], [address] Erythrocyte distribution width (RBC) [Ratio] 13.9 % Normal 11.6-14.6 [facility] Comment on above: Performed By: #### L 500.2500, L100.0100 #### [facility] [address] [place], [address] Hematocrit (Bld) [Volume fraction] 39.5 % Low 40-54 [facility] Comment on above: Performed By: #### L 500.2500, L100.0100 #### [facility] [address] [place], [address] Hemoglobin (Bld) [Mass/Vol] 13.2 g/dL Normal 13.0-16.5 [facility] Comment on above: Performed By: #### L 500.2500, L100.0100 #### [facility] [address] [place], [address] IG% 0.300 Normal 0.0-0.9 [facility] Comment on above: Result Comment: IG% - Immature Granulocytes (promyelocytes, myelocytes and metamyelocytes) > 1% indicates that a LEFT SHIFT is Present. Performed By: #### L 500.2500, L100.0100 #### [facility] [address] [place], [address] Lymphocytes/100 WBC (Bld) 20.8 % Normal 19-41 [facility] Comment on above: Performed By: #### L 500.2500, L100.0100 #### [facility] [address] [place], [address] MCH (RBC) [Entitic mass] 32.3 pg High 27.0-32.0 [facility] Comment on above: Performed By: #### L 500.2500, L100.0100 #### [facility] [address] [place], [address] MCHC (RBC) [Mass/Vol] 33.4 g/dL Normal 32-36 [facility] Comment on above: Performed By: #### L 500.2500, L100.0100 #### [facility] [address] [place], [address] MCV (RBC) [Entitic vol] 96.6 fL High 80-94 [facility] Comment on above: Performed By: #### L 500.2500, L100.0100 #### [facility] [address] [place], [address] Monocytes/100 WBC (Bld) 9.7 % Normal 0-10 [facility] Comment on above: Performed By: #### L 500.2500, L100.0100 #### [facility] [address] [place], [address] Neutrophils/100 WBC (Bld) 66.4 % Normal 47-70 [facility] Comment on above: Performed By: #### L 500.2500, L100.0100 #### [facility] [address] [place], [address] Nucleated RBC (Bld) [#/Vol] 0 10*3/uL Normal 0-5 [facility] Comment on above: Performed By: #### L 500.2500, L100.0100 #### [facility] [address] [place], [address] Platelet mean volume (Bld) [Entitic vol] 9.8 fL Normal 6.2-12.0 [facility] Comment on above: Performed By: #### L 500.2500, L100.0100 #### [facility] [address] [place], [address] Platelets (Bld) [#/Vol] 196 10*3/uL Normal 150-450 [facility] Comment on above: Performed By: #### L 500.2500, L100.0100 #### [facility] [address] [place], [address] RBC (Bld) [#/Vol] 4.09 10*6/uL Low 4.6-6.2 [facility] Comment on above: Performed By: #### L 500.2500, L100.0100 #### [facility] [address] [place], [address] RDW SD 49.5 fl High 35.1-43.9 [facility] Comment on above: Performed By: #### L 500.2500, L100.0100 #### [facility] [address] [place], [address] WBC (Bld) [#/Vol] 8.8 10*3/uL Normal 4.4-11.0 [facility] Comment on above: Performed By: #### L 500.2500, L100.0100 #### [facility] [address] [place], [address] Calculated very low density lipoprotein (VLDL) cholesterol measurementOrdered By: Evelyn Mccall on 11-09-2024 Calculated very low density lipoprotein (VLDL) cholesterol measurement 31 mg/dL 5-40 [facility] VLDL Cholesterol 31 mg/dL 5-40 [facility] Comprehensive Metabolic Prof ilon 11-09-2024 Albumin [Mass/Vol] 3.2 g/dL Low 3.4-4.8 [facility] Comment on above: Performed By: #### L 500.2500, L100.0100 #### [facility] [address] [place], [address] Albumin/Globulin [Mass ratio] 1.5 {ratio} Normal 0.9-2.4 [facility] Comment on above: Performed By: #### L 500.2500, L100.0100 #### [facility] [address] [place], [address] ALK PHOS 60 U/L Normal 40-129 [facility] Comment on above: Performed By: #### L 500.2500, L100.0100 #### [facility] [address] [place], [address] ALT [Catalytic activity/Vol] 22 U/L Normal <=46 [facility] Comment on above: Performed By: #### L 500.2500, L100.0100 #### [facility] [address] [place], [address] AST [Catalytic activity/Vol] 24 U/L Normal <=37 [facility] Comment on above: Performed By: #### L 500.2500, L100.0100 #### [facility] [address] [place], [address] Bilirubin [Mass/Vol] 0.71 mg/dL Normal 0.00-1.30 [facility] Comment on above: Performed By: #### L 500.2500, L100.0100 #### [facility] [address] [place], [address] BUN/CRE 26.9 RATIO High 10-20 [facility] Comment on above: Performed By: #### L 500.2500, L100.0100 #### [facility] [address] [place], [address] Calcium [Mass/Vol] 8.8 mg/dL Normal 7.6-11.0 [facility] Comment on above: Performed By: #### L 500.2500, L100.0100 #### [facility] [address] [place], [address] Chloride [Moles/Vol] 107 mmol/L Normal 98-108 [facility] Comment on above: Performed By: #### L 500.2500, L100.0100 #### [facility] [address] [place], [address] CO2 [Moles/Vol] 23.1 mmol/L Normal 21.0-32.0 [facility] Comment on above: Performed By: #### L 500.2500, L100.0100 #### [facility] [address] [place], [address] Creatinine [Mass/Vol] 1.17 mg/dL Normal 0.70-1.20 [facility] Comment on above: Performed By: #### L 500.2500, L100.0100 #### [facility] [address] [place], [address] ECRCL 49.39 ml/min Low 50-250 [facility] Comment on above: Performed By: #### L 500.2500, L100.0100 #### [facility] [address] [place], [address] GAP 10 Normal 5-15 [facility] Comment on above: Performed By: #### L 500.2500, L100.0100 #### [facility] [address] [place], [address] GFR/1.73 sq M.predicted among non-blacks MDRD (S/P/Bld) [Vol rate/Area] 60 mL/min/{1.73_m2} Normal >60 [facility] Comment on above: Result Comment: mL/m in/1.73m2 CKD-EPI Creatinine Equation (2020) Performed By: #### L 500.2500, L100.0100 #### [facility] [address] [place], [address] Globulin (S) [Mass/Vol] 2.1 g/dL Low 2.2-4.2 [facility] Comment on above: Performed By: #### L 500.2500, L100.0100 #### [facility] [address] [place], [address] Glucose [Mass/Vol] 88 mg/dL Normal 70-99 [facility] Comment on above: Performed By: #### L 500.2500, L100.0100 #### [facility] [address] [place], [address] Potassium [Moles/Vol] 4.1 mmol/L Normal 3.3-5.1 [facility] Comment on above: Performed By: #### L 500.2500, L100.0100 #### [facility] [address] [place], [address] Sodium [Moles/Vol] 140 mmol/L Normal 133-145 [facility] Comment on above: Performed By: #### L 500.2500, L100.0100 #### [facility] [address] [place], [address] T PROT 5.3 g/dL Low 5.9-8.4 [facility] Comment on above: Performed By: #### L 500.2500, L100.0100 #### [facility] [address] [place], [address] Urea nitrogen [Mass/Vol] 32 mg/dL High 4-19 [facility] Comment on above: Performed By: #### L 500.2500, L100.0100 #### [facility] [address] [place], [address] Gram Stainon 11-09-2024 GS Left wrist aspirate Centrifuged Specimen? Culture performed on centrifuged specimen Gram Stain 4+ Red Blood Cells Rare White Blood Cells No organisms seen Normal [facility] Comment on above: Performed By: #### L 100.0500, L500.2500 #### [facility] [address] [place], [address] LDL calc ser/plasOrdered By: Evelyn Mccall on 11-09-2024 Cholesterol in LDL [Mass/Vol] 43 mg/dL [facility] Comment on above: Sdbkrtljoz=867-245 m g/dL & Higher Fzpy=517 mg/dL or greater LDL Cholesterol, Calculated 43 mg/dL [facility] Comment on above: Lxgpiupowh=164-883 m g/dL & Higher Rbrj=025 mg/dL or greater Laboratory - Chemistry and C hemistry - challengeOrdered By: Evelyn Mccall on 11-09-2024 AST [Catalytic activity/Vol] 24 U/L <38 [facility] Lipid Profileon 11-09-2024 CHOL:HDL 3.52 Normal [facility] Comment on above: Performed By: #### L 500.2500, L100.0100 #### [facility] [address] [place], [address] Cholesterol [Mass/Vol] 103 mg/dL Normal <=200 [facility] Comment on above: Result Comment: Chol esterol level, Desirable <200 mg/dL Borderline high cholesterol 200-239 mg/dL High cholesterol >=240 mg/dL Recommendations of the NCEP Adult Treatment Panel for the following risk-cutoff thresholds for the [place] population. Performed By: #### L 500.2500, L100.0100 #### [facility] [address] [place], [address] Cholesterol in HDL [Mass/Vol] 29 mg/dL Low [facility] Comment on above: Result Comment: Maribell onal Cholesterol Education Program (NCEP) guidelines: <40 mg/dL: Low HDL-cholesterol (major risk factor for CHD) >= 60 mg/dL: High HDL-cholesterol (negative risk factor for CHD) HDL-cholesterol is affected by a number of factors, e.g. smoking, exercise, hormones, sex and age. Performed By: #### L 500.2500, L100.0100 #### [facility] [address] [place], [address] Cholesterol in LDL [Mass/Vol] 43 mg/dL Normal [facility] Comment on above: Result Comment: Bord zedona=748-406 mg/dL Higher Ddzj=546 mg/dL or greater Performed By: #### L 500.2500, L100.0100 #### [facility] [address] [place], [address] Cholesterol in VLDL [Mass/Vol] 31 mg/dL Normal 5-40 [facility] Comment on above: Performed By: #### L 500.2500, L100.0100 #### [facility] [address] [place], [address] Triglyceride [Mass/Vol] 155 mg/dL Normal [facility] Comment on above: Result Comment: The drugs N-Acetylcysteine and Metamizole may falsely depress this assay. Normal range: <150 mg/dL Borderline High: 150-199 mg/dL High: 200-499 mg/dL Very High: >500 mg/dL Performed By: #### L 500.2500, L100.0100 #### [facility] [address] [place], [address] Phosphoruson 11-09-2024 Phosphate [Mass/Vol] 3.6 mg/dL Normal 2.7-4.5 [facility] Comment on above: Performed By: #### L 500.2500, L100.0100 #### [facility] [address] [place], [address] Screening total cholesterol/ high density lipoprotein (HDL) cholesterol ratioOrdered By: Evelyn Mccall on 11-09-2024 Cholesterol.total/Chol esterol in HDL [Mass ratio] 3.52 {ratio} [facility] Serum globulin measurementOr dered By: Evelyn Mccall on 11-09-2024 Globulin (S) [Mass/Vol] 2.1 g/dL Low 2.2-4.2 [facility] Serum or plasma alanine hopkins otransferase (ALT) measurementOrdered By: Evelyn Mccall on 11-09-2024 ALT [Catalytic activity/Vol] 22 U/L <47 [facility] Serum or plasma albumin saige urement (mass/volume)Ordered By: Evelyn Mccall on 11-09-2024 Albumin [Mass/Vol] 3.2 g/dL Low 3.4-4.8 [facility] Serum or plasma albumin/glob ulin mass ratioOrdered By: Evelyn Mccall on 11-09-2024 Albumin/Globulin [Mass ratio] 1.5 {ratio} 0.9-2.4 [facility] Serum or plasma alkaline jaki sphatase measurementOrdered By: Evelyn Mccall on 11-09-2024 ALP [Catalytic activity/Vol] 60 U/L 40-129 [facility] Serum or plasma cholesterol in HDL measurement (mass/volume)Ordered By: Evelyn Mccall on 11-09-2024 Cholesterol in HDL [Mass/Vol] 29 mg/dL Low >40 [facility] Comment on above: National Cholesterol Education Program (NCEP) guidelines:<40 mg/dL: Low HDL-cholesterol (major risk factor for CHD)>= 60 mg/dL: High HDL-cholesterol (negative risk factor for CHD)HDL-cholesterol is affected by a number of factors, e.g. smoking, exercise, hormones, sex and age. Serum or plasma cholesterol measurement (mass/volume)Ordered By: Evelyn Mccall on 11-09-2024 Cholesterol [Mass/Vol] 103 mg/dL <201 [facility] Comment on above: Cholesterol level, D esirable <200 mg/dLBorderline high cholesterol 200-239 mg/dLHigh cholesterol >=240 mg/dLRecommendations of the NCEP Adult Treatment Panel for the following risk-cutoff thresholds for the [place] population. Total proteinOrdered By: Willem Mccall on 11-09-2024 Protein [Mass/Vol] 5.3 g/dL Low 5.9-8.4 [facility] Triglycerides measurementOrd ered By: Evelyn Mccall on 11-09-2024 Triglyceride [Mass/Vol] 155 mg/dL <199 [facility] Comment on above: The drugs N-Acetylcy steine and Metamizole may falsely depress this assay. Normal range: <150 mg/dLBorderline High: 150-199 mg/dLHigh: 200-499 mg/dLVery High: >500 mg/dL Anaerobic cultureOrdered By: Dennis Rocha on 11-08-2024 Bacteria identified Anaer cx Nom (Unsp spec) No anaerobic bacteria isolated. [facility] Appearance (Syn fld)Ordered By: Dennis Rocha on 11-08-2024 Synovial Fluid Appearance Opaque CLEAR [facility] Automated synovial fluid ramya kocytes count (number/volume)Ordered By: Dennis Rocha on 11-08-2024 WBC Auto (Syn fld) [#/Vol] 3.9810 10^3/uL High 0.000-0.00 2 [facility] Automated synovial fluid mon onuclear cell count (number/volume)Ordered By: Dennis Rocha on 11-08-2024 Mononuclear cells Auto (Syn fld) [#/Vol] 1.409 10^3/ul [facility] Automated synovial fluid pamela ymorphonuclear cell count (number/volume)Ordered By: Dennis Rocha on 11-08-2024 Polymorphonuclear cells Auto (Syn fld) [#/Vol] 2.572 10^3/uL [facility] Automated synovial fluid pamela ymorphonuclear cells as percentage of leukocytesOrdered By: Dennis Rocha on 11-08-2024 Polymorphonuclear cells/100 WBC Auto (Syn fld) 64.6 % [facility] Basic Metabolic Profile (BMP )on 11-08-2024 BUN/CRE 29.3 RATIO High 10-20 [facility] Comment on above: Performed By: #### L 500.2500, L100.0100 #### [facility] [address] [place], [address] Calcium [Mass/Vol] 9.5 mg/dL Normal 7.6-11.0 [facility] Comment on above: Performed By: #### L 500.2500, L100.0100 #### [facility] [address] [place], [address] Chloride [Moles/Vol] 108 mmol/L Normal 98-108 [facility] Comment on above: Performed By: #### L 500.2500, L100.0100 #### [facility] [address] [place], [address] CO2 [Moles/Vol] 22.8 mmol/L Normal 21.0-32.0 [facility] Comment on above: Performed By: #### L 500.2500, L100.0100 #### [facility] [address] [place], [address] Creatinine [Mass/Vol] 1.26 mg/dL High 0.70-1.20 [facility] Comment on above: Performed By: #### L 500.2500, L100.0100 #### [facility] [address] [place], [address] ECRCL 45.77 ml/min Low 50-250 [facility] Comment on above: Performed By: #### L 500.2500, L100.0100 #### [facility] [address] [place], [address] GAP 10 Normal 5-15 [facility] Comment on above: Performed By: #### L 500.2500, L100.0100 #### [facility] [address] [place], [address] GFR/1.73 sq M.predicted among non-blacks MDRD (S/P/Bld) [Vol rate/Area] 55 mL/min/{1.73_m2} Low >60 [facility] Comment on above: Result Comment: mL/m in/1.73m2 CKD-EPI Creatinine Equation (2020) Performed By: #### L 500.2500, L100.0100 #### [facility] [address] [place], [address] Glucose [Mass/Vol] 116 mg/dL High 70-99 [facility] Comment on above: Performed By: #### L 500.2499, L100.0100 #### [facility] [address] [place], [address] Potassium [Moles/Vol] 4.6 mmol/L Normal 3.3-5.1 [facility] Comment on above: Performed By: #### L 500.2500, L100.0100 #### [facility] [address] [place], [address] Sodium [Moles/Vol] 141 mmol/L Normal 133-145 [facility] Comment on above: Performed By: #### L 500.2500, L100.0100 #### [facility] [address] [place], [address] Urea nitrogen [Mass/Vol] 37 mg/dL High - [facility] Comment on above: Performed By: #### L 500.2500, L100.0100 #### [facility] [address] [place], [address] Blood lymphocytes/100 leukoc ytesOrdered By: Dennis Rocha on 11-08-2024 Lymphocytes/100 WBC (Bld) 40 % [facility] Body fluid crystal identific ation by light microscopyOrdered By: Dennis Rocha on 11-08-2024 Crystals LM Nom (Body fld) NO CRYSTALS SEEN [facility] Comment on above: CRYSTAL RESULT IS PRELIMINARY. SEE PATH REVIEW FOR FINAL REPORT. CBC W/Diff, Automatedon - Absolute Lymph 1.96 X10 3/uL Normal 0.83-4.51 [facility] Comment on above: Performed By: #### L 500.2500, L100.0100 #### [facility] [address] [place], [address] Absolute Neut 6.9 X10 3/uL Normal 2.0-7.7 [facility] Comment on above: Performed By: #### L 500.2500, L100.0100 #### [facility] [address] [place], [address] Basophils/100 WBC (Bld) 0.6 % Normal 0-1 [facility] Comment on above: Performed By: #### L 500.2500, L100.0100 #### [facility] [address] [place], [address] Eosinophils/100 WBC (Bld) 1.8 % Normal 0-5 [facility] Comment on above: Performed By: #### L 500.2500, L100.0100 #### [facility] [address] [place], [address] Erythrocyte distribution width (RBC) [Ratio] 13.9 % Normal 11.6-14.6 [facility] Comment on above: Performed By: #### L 500.2500, L100.0100 #### [facility] [address] [place], [address] Hematocrit (Bld) [Volume fraction] 43.0 % Normal 40-54 [facility] Comment on above: Performed By: #### L 500.2500, L100.0100 #### [facility] [address] [place], [address] Hemoglobin (Bld) [Mass/Vol] 14.3 g/dL Normal 13.0-16.5 [facility] Comment on above: Performed By: #### L 500.2500, L100.0100 #### [facility] [address] [place], [address] IG% 0.400 Normal 0.0-0.9 [facility] Comment on above: Result Comment: IG% - Immature Granulocytes (promyelocytes, myelocytes and metamyelocytes) > 1% indicates that a LEFT SHIFT is Present. Performed By: #### L 500.2500, L100.0100 #### [facility] [address] [place], [address] Lymphocytes/100 WBC (Bld) 19.5 % Normal 19-41 [facility] Comment on above: Performed By: #### L 500.2500, L100.0100 #### [facility] [address] [place], [address] MCH (RBC) [Entitic mass] 31.7 pg Normal 27.0-32.0 [facility] Comment on above: Performed By: #### L 500.2500, L100.0100 #### [facility] [address] [place], [address] MCHC (RBC) [Mass/Vol] 33.3 g/dL Normal 32-36 [facility] Comment on above: Performed By: #### L 500.2500, L100.0100 #### [facility] [address] [place], [address] MCV (RBC) [Entitic vol] 95.3 fL High 80-94 [facility] Comment on above: Performed By: #### L 500.2500, L100.0100 #### [facility] [address] [place], [address] Monocytes/100 WBC (Bld) 9.4 % Normal 0-10 [facility] Comment on above: Performed By: #### L 500.2500, L100.0100 #### [facility] [address] [place], [address] Neutrophils/100 WBC (Bld) 68.3 % Normal 47-70 [facility] Comment on above: Performed By: #### L 500.2500, L100.0100 #### [facility] [address] [place], [address] Nucleated RBC (Bld) [#/Vol] 0 10*3/uL Normal 0-5 [facility] Comment on above: Performed By: #### L 500.2500, L100.0100 #### [facility] [address] [place], [address] Platelet mean volume (Bld) [Entitic vol] 9.8 fL Normal 6.2-12.0 [facility] Comment on above: Performed By: #### L 500.2500, L100.0100 #### [facility] [address] [place], [address] Platelets (Bld) [#/Vol] 233 10*3/uL Normal 150-450 [facility] Comment on above: Performed By: #### L 500.2500, L100.0100 #### [facility] [address] [place], [address] RBC (Bld) [#/Vol] 4.51 10*6/uL Low 4.6-6.2 [facility] Comment on above: Performed By: #### L 500.2500, L100.0100 #### [facility] [address] [place], [address] RDW SD 49.1 fl High 35.1-43.9 [facility] Comment on above: Performed By: #### L 500.2500, L100.0100 #### [facility] [address] [place], [address] WBC (Bld) [#/Vol] 10.0 10*3/uL Normal 4.4-11.0 [facility] Comment on above: Performed By: #### L 500.2500, L100.0100 #### [facility] [address] [place], [address] CNOVon 11-08-2024 [facility] PACO WHITNEY ([id number]) 1935 M Date Time Provider Department 11/08/24 5:30 PM VASYL WELSH [facility] During your visit today, we recorded the following information about you: Temperature Pulse Respiration Blood pressure 99.5 degrees 79/minute 22/minute 118/68 Weight 90 kg Vasyl Welsh MD 11/08/2024 6:31 PM Signed [facility] Subjective Paco Josefina Whitney is [...] available. He will take himself to the [facility]. Vasyl Welsh MD History and Record [...] will be seeking further care outside the [facility] hospital system. Disposition The patient was [...] 1 capsule by mouth once daily. - nlvxgbtf-hhabetsqw-foapvwcey isone (CORTISPORIN) 3.5-10,000-1 mg/mL-unit/mL-% otic suspension Use 4 Drops in the ears four times daily. x 1 week - clotrimazole-betamethasone (LOTRISONE) cream Apply 1 application to affected area two times (more content not included)... Normal [facility] CRPon 11-08-2024 C-REACTIVE PROT 5.25 mg/L High 0.0-3.0 [facility] Comment on above: Performed By: #### L 500.2500, L100.0100 #### [facility] [address] [place], [address] CRP [Mass/Vol]Ordered By: Mary Kay Hartley on 11-08-2024 C-Reactive Protein Extended Range 5.25 mg/L High 0.0-3.0 [facility] Cells Counted Total (Syn fld ) [#]Ordered By: Dennis Rocha on 11-08-2024 Synovial Fluid Total Cells Counted 4.0010 10^3/uL High 0.000-0.00 0 [facility] Comment on above: This is the Total Nu mber of Nucleated Cell Types in the Body Fluid. Color (Syn fld)Ordered By: Josefina Rocha on 11-08-2024 Synovial Fluid Color RED Pale Yellow [facility] Consultation - Surgicalon Consultation - Surgical [facility] Medical Records Department [address] [place] [address] Consultation - Surgical 11/08/24 1853 MR#: [id number] Acct: [id number] Name: PACO WHITNEY Rep #: [id number] : 1935 89 From: Dennis Rocha MD PCP: Dr. Clarice Murillo MD Status:DIS IN Location: MS3 [id number] Dennis Rocha MD on 12/13/24 at 0846 Addendum CPT 40403 (arthrocentesis, aspiration) 12/13/24 0846 Cosigner Signature (if [...] wnl (10). 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 Normal [facility] Crystals LM Nom (Body fld)Or dered By: Dennis Rocha on 11-08-2024 Body Fluid Crystals NO CRYSTALS SEEN [facility] Comment on above: CRYSTAL RESULT IS PRELIMINARY. SEE PATH REVIEW FOR FINAL REPORT. Determination of appearance of synovial fluid (nominal result)Ordered By: Dennis Rocha on 11-08-2024 Appearance (Syn fld) Opaque CLEAR [facility] Emergency Department Summary on 11-08-2024 Emergency Department Summary [facility] Medical Records Department [address] [place] [address] Emergency Department Summary 11/08/24 MR#: [id number] Acct: [id number] Name: PACO WHITNEY Rep #: [id number] : 1935 89 From: Eduardo Hartley DO PCP: Dr. Clarice Murillo MD Status:ADM IN [facility] History of Present Illness Chief Complaint: [...] Respiratory R (more content not included)... Normal [facility] Erythrocyte Sed Rateon 11-08 SED RATE < 1 Normal 0-20 [facility] Comment on above: Performed By: #### L 500.2500, L100.0100 #### [facility] [address] [facility], [address] Erythrocyte sedimentation ra teOrdered By: Eduardo Hartley on 11-08-2024 ESR (Bld) [Velocity] mm/h 0-20 [facility] Gram stainOrdered By: Dennis Rocha on 11-08-2024 Microscopic observation Gram stain Nom (Unsp spec) [facility] H AND P Exam - Hospitaliston 11-08-2024 H&P Exam - Hospitalist [facility] Medical Records Department [address] [place] [address] H P Exam - Hospitalist 11/08/242000 MR#: [id number] Acct: [id number] Name: DEVONTEPACO Josefina Rep #: [id number] : 1935 89 From: Evelyn Doss DO PCP: Dr. Clarice Murillo MD Status:ADM IN Location: [facility] JV076-3 HPI - General General Date of Admission: [...] his first MTP joint who presents to [facility] ER complaining of Left wrist [...] is expected to extend beyond 2 midnights. [facility] Medical History PAD (peripheral artery disease) [...] Reaction Status (more content not included)... Normal [facility] Hand Min 3 Viewson Hand Min 3 Views [facility] Imaging Services [address] [place], [place] [address] Hand Min 3 Views MR#: [id number] Acct: [id number] Name: PACO WHITNEY Rep #: [id number] : 1935 M 89 From: Dennis Lechuga PCP: Dr. Clarice Murillo MD Status: REG ER Study: Hand Min 3 Views Date of Exam: 11/08/24 Exam# [id number] Ordering Dr: Dennis Rocha MD PROCEDURE: HAND [...] Clarice Murillo MD; Dr. 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 [place], [place], [address] Magnesium (Unsp spec) [Mass/ Vol]Ordered By: Evelyn Mccall on 11-08-2024 Magnesium [Mass/Vol] 1.6 mg/dL 1.5-2.2 [facility] Magnesium measurement (mass/ volume)Ordered By: Evelyn Mccall on 11-08-2024 Magnesium (Unsp spec) [Mass/Vol] 1.6 mg/dL 1.5-2.2 [facility] Monocytes/100 WBC (Syn fld)O rdered By: Dennis Rocha on 11-08-2024 Synovial Fluid Monocytes 14 % [facility] Mononuclear cells Auto (Syn fld) [#/Vol]Ordered By: Dennis Rocha on 11-08-2024 Synovial Fluid Mononuclear WBCs 1.409 10^3/ul [facility] Mononuclear cells/100 WBC (S yn fld)Ordered By: Dennis Rocha on 11-08-2024 Synovial Fluid Mononuclear WBCs % 35.4 % [facility] Neutrophils/100 WBC (Syn fld )Ordered By: Dennis Rocha on 11-08-2024 Synovial Fluid Neutrophils 46 % High 0-25 [facility] Pathologist review Mitchell (Unsp spec) [Interp]Ordered By: Dennis Rocha on 11-08-2024 Synovial Fluid Pathologist Comment May follow [facility] Pathologist review of result s (narrative result)Ordered By: Dennis Rocha on 11-08-2024 Pathologist review Mitchell (Unsp spec) [Interp] Reviewed [facility] Comment on above: Previous reported re sult: May follow Edited by: DEYANIRA on 02/26/25:0848NEGATIVE FOR CRYSTALS.Sammie Fletcher MD 02/25/2025 AMENDED REPORT 02/26/25 0848 PATH COM/SYFL previously reported as: May follow Polymorphonuclear cells Auto (Syn fld) [#/Vol]Ordered By: Dennis Rocha on 11-08-2024 Synovial Fluid Polynuclear WBCs 2.572 10^3/uL [facility] Polymorphonuclear cells/100 WBC Auto (Syn fld)Ordered By: Dennis Rocha on 11-08-2024 Synovial Fluid Polynuclear WBCs % 64.6 % [facility] RBC (Syn fld) [#/Vol]Ordered By: Dennis Rocha on 11-08-2024 Synovial Fluid RBC 2.743 10^6/uL High 0-0 [facility] Serum or plasma C reactive p rotein measurement (mass/volume)Ordered By: Eduardo Hartley on 11-08-2024 CRP [Mass/Vol] 5.25 mg/L High 0.0-3.0 [facility] Serum or plasma uric acid me asurement (mass/volume)Ordered By: Remus Hartley on 11-08-2024 Urate [Mass/Vol] 4.5 mg/dL 3.5-7.2 [facility] Comment on above: The drugs N-Acetylcy steine and Metamizole may falsely depress this assay. Specimen source Nom (Body fl d)Ordered By: Dennis Rocha on 11-08-2024 Body Fluid Crystal Source SYNOVIAL [facility] Synovial Fluid Source LEFT WRIST ASPIRATE [facility] Specimen source identificati on of body fluidOrdered By: Dennis Rocha on 11-08-2024 Specimen source Nom (Body fld) SYNOVIAL [facility] Specimen source Nom (Body fld) LEFT WRIST ASPIRATE [facility] Synovial fluid color determi nation (nominal result)Ordered By: Dennis Rocha on 11-08-2024 Color (Syn fld) RED Pale Yellow [facility] Synovial fluid erythrocytes count (number/volume)Ordered By: Dennis Rocha on 11-08-2024 RBC (Syn fld) [#/Vol] 2.743 10^6/uL High 0-0 [facility] Synovial fluid monocyte perc entageOrdered By: Dennis Rocha on 11-08-2024 Monocytes/100 WBC (Syn fld) 14 % [facility] Synovial fluid mononuclear c ells/100 leukocytesOrdered By: Dennis Rocha on 11-08-2024 Mononuclear cells/100 WBC (Syn fld) 35.4 % [facility] Synovial fluid neutrophil pe rcentageOrdered By: Dennis Rocha on 11-08-2024 Neutrophils/100 WBC (Syn fld) 46 % High 0-25 [facility] Synovial fluid total cell co untOrdered By: Dennis Rocha on 11-08-2024 Cells Counted Total (Syn fld) [#] 4.0010 10^3/uL High 0.000-0.00 0 [facility] Comment on above: This is the Total Nu mber of Nucleated Cell Types in the Body Fluid. TSH DL <= 0.005 mIU/L QnOrde red By: Evelyn Mccall on 11-08-2024 Thyroid Stimulating Hormone (TSH) 2.530 uIU/mL 0.300-4.20 0 [facility] TSH Qn 2.530 uIU/mL 0.300-4.20 0 [facility] Thyroid Stim Hormone (TSH)on 11-08-2024 TSH 2.530 uIU/mL Normal 0.300-4.20 0 [facility] Comment on above: Performed By: #### L 300.4310, L300.3900 #### [facility] [address] [facility], [address] Uric Acidon 11-08-2024 URIC 4.5 mg/dL Normal 3.5-7.2 [facility] Comment on above: Result Comment: The drugs N-Acetylcysteine and Metamizole may falsely depress this assay. Performed By: #### L 500.2500, L100.0100 #### [facility] [address] [place], [address] WBC Auto (Syn fld) [#/Vol]Or dered By: Dennis Rocha on 11-08-2024 Synovial Fluid WBC 3.9810 10^3/uL High 0.000-0 .00 2 [facility] Wrist min 3 Viewson 11-09-19 25 Wrist min 3 Views [facility] Imaging Services [address] [place] [address] Wrist min 3 Views MR#: [id number] Acct: [id number] Name: PACO WHITNEY Rep #: [id number] : 1935 M 89 From: Dennis Lechuga PCP: Dr. Clarice Murillo MD Status: REG ER Study: Wrist min 3 Views Date of Exam: 11/08/24 Exam# [id number] Ordering Dr: Eduardo Hartley DO EXAM: Left wrist radiographs CLINICAL HISTORY: Pain, swelling COMPARISON: None TECHNIQUE: Three views of the left wrist FINDINGS: See impression RAD/Wrist min 3 Views IMPRESSION: Negative for acute displaced fracture or dislocation. 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 Severe diffuse soft tissue swelling about the wrist. No cortical destruction. Osteopenia. Reading Location: [facility] CC: Dr. Clarice Murillo MD; Dr. 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 No survey superintendent was used. Review of Systems Constitutional: Negative [...] inhaler or nebulizer prn Follow up with body mechanic apprentice as needed Diagnosis and treatment plan were discussed and questions were answered to the patient's satisfaction. Pt acknowledged understanding of concepts and follow up plan. Specific signs and symptoms that would indicate the need for higher level of (more content not included)... Normal [facility] COVID-19 MOLECULAR (POC)on 0 11-03-2024 Procedural Control Valid [facility] SARS-CoV-2 (COVID-19) RNA DEV+probe Ql (Unsp spec) Negative Negative [facility] Comment on above: Location:[facility], [address] [place] [address], [place], [address] [facility] CNOVon 09-24-2024 [facility] Office Visit (PULMWS ) PACO WHITNEY ([id number]) 1935 M Date Time Provider Department 09/24/24 10:00 AM FRANCIA LUNA [facility] During your visit today, we recorded the following information about you: Pulse Respiration Blood pressure Weight 74/minute 16/minute 118/73 90.2 kg Francia Luna MD 09/24/2024 7:37 PM Signed . Respiratory [place] Note Patient name: Paco Whitney PCP: Clarice Murillo MD CC: COPD HPI: aPco Whitney 89 year old male former 62 [...] Take 1 capsule by mouth once daily. ntjsmnxe-gglawvnve-zznvpzcel isone (CORTISPORIN) 3.5-10,000-1 mg/mL-unit/mL-% otic suspension Use [...] no thrush. (more content not included)... Normal [facility] CNOVon 08-01-2024 [facility] Office Visit (DEANAWS ) PACO WHITNEY Josefina ([id number]) 1935 M Date Time Provider Department 08/01/24 2:40 PM KARLA CAMPUZANO During your visit today, we recorded the following information about you: Pulse Respiration Blood pressure Weight 71/minute 16/minute 104/62 89.7 kg Karla Campuzano APRN.RD SCIENTIST 08/01/2024 3:33 PM Signed This is a [...] W/COLLJ SPEC WHEN PFRMD 09/19/2011 Colonoscopy [facility] ENDOVASCULAR ANEURYSM REPAIR 01/2013 with bi-liac [...] on empty stomach, 1/2 hr before meal. dkeqyvnk-zttugsnwr-dnkegzrqc isone (CORTISPORIN) 3.5-10,000-1 mg/mL-unit/mL-% otic suspension Use [...] by mo (more content not included)... Normal [facility] Comprehensive metabolic 2000 panelon 07-24-2024 Albumin [Mass/Vol] 4.2 g/dL Normal 3.9-4.9 [facility] Comment on above: Order Comment: Speci men Type: BLOOD SPECIMEN Ordering Facility: [facility] Address: [address] [place] [address] Performed By: #### 5 5454-3 #### [facility] CLIA [id number] [address] [place] [id number] [place] ALP [Catalytic activity/Vol] 81 U/L Normal 38-113 [facility] Comment on above: Order Comment: Speci men Type: BLOOD SPECIMEN Ordering Facility: [facility] Address: [address] [place] [address] Performed By: #### 5 5454-3 #### [facility] CLIA [id number] [address] [place] [address] [place] ALT [Catalytic activity/Vol] 20 U/L Normal 10-54 [facility] Comment on above: Order Comment: Speci men Type: BLOOD SPECIMEN Ordering Facility: [facility] Address: [address] [place] [address] Performed By: #### 5 5454-3 #### [facility] CLIA [id number] [address] [place] [address] [place] Anion gap [Moles/Vol] 12 mmol/L Normal 8-15 [facility] Comment on above: Order Comment: Speci men Type: BLOOD SPECIMEN Ordering Facility: [facility] Address: [address] [place] [address] Performed By: #### 5 5454-3 #### [facility] CLIA [id number] [address] [place] [address] [place] AST [Catalytic activity/Vol] 26 U/L Normal 14-40 [facility] Comment on above: Order Comment: Speci men Type: BLOOD SPECIMEN Ordering Facility: [facility] Address: [address] [place], [place] [address] Performed By: #### 5 5454-3 #### [facility] CLIA [id number] [address] [place] [address] [place] Bilirubin [Mass/Vol] 0.9 mg/dL Normal 0.2-1.3 [facility] Comment on above: Order Comment: Speci men Type: BLOOD SPECIMEN Ordering Facility: [facility] Address: [address] [place] [address] Performed By: #### 5 5454-3 #### [facility] CLIA [id number] [address] [place] [address] [place] Calcium [Mass/Vol] 10.2 mg/dL Normal 8.5-10.2 [facility] Comment on above: Order Comment: Speci men Type: BLOOD SPECIMEN Ordering Facility: [facility] Address: [address] [place] [address] Performed By: #### 5 5454-3 #### [facility] CLIA [id number] [address] [place] [address] [place] Chloride [Moles/Vol] 106 mmol/L Normal 98-107 [facility] Comment on above: Order Comment: Speci men Type: BLOOD SPECIMEN Ordering Facility: [facility] Address: [address] [place] [address] Performed By: #### 5 5454-3 #### [facility] CLIA [id number] [address] [place] [address] [place] CO2 [Moles/Vol] 25 mmol/L Normal 22-30 [facility] Comment on above: Order Comment: Speci men Type: BLOOD SPECIMEN Ordering Facility: [facility] Address: [address] [place] [address] Performed By: #### 5 5454-3 #### [facility] CLIA [id number] [address] [place] [address] [place] Creatinine [Mass/Vol] 1.00 mg/dL Normal 0.73-1.22 [facility] Comment on above: Order Comment: Speci men Type: BLOOD SPECIMEN Ordering Facility: [facility] Address: [address] [place] [address] Performed By: #### 5 5454-3 #### [facility] CLIA [id number] [address] [place] [address] [place] Creatinine and Glomerular filtration rate.predicted panel (S/P/Bld) 73 mL/min/1.73m??? Normal >=60 [facility] Comment on above: Order Comment: Zach vinson Type: BLOOD SPECIMEN Ordering Facility: [facility] Address: [address] [place] [address] Result Comment: Toya mated Glomerular Filtration Rate [...] GFR. Performed By: #### 5 5454-3 #### [facility] CLIA [id number] [address] [place] [address] [place] Glucose [Mass/Vol] 107 mg/dL High 74-99 [facility] Comment on above: Order Comment: Zach vinson Type: BLOOD SPECIMEN Ordering Facility: [facility] Address: [address] [place] [address] Result Comment: The [place] [employer] (ADA) provides guidance for cutoff [...] Standards of Medical Care in Diabetes 2016, [place] [employer]. Diabetes Care. 2016.39(Suppl 1). Performed By: #### 5 5454-3 #### [facility] CLIA [id number] [address] [place] [address] [place] Potassium [Moles/Vol] 4.5 mmol/L Normal 3.7-5.1 [facility] Comment on above: Order Comment: Speci men Type: BLOOD SPECIMEN Ordering Facility: [facility] Address: [address] [place] [address] Performed By: #### 5 5454-3 #### [facility] CLIA [id number] [address] [place] [address] [place] Protein [Mass/Vol] 7.0 g/dL Normal 6.3-8.0 [facility] Comment on above: Order Comment: Speci men Type: BLOOD SPECIMEN Ordering Facility: [facility] Address: [address] [place] [address] Performed By: #### 5 5454-3 #### [facility] CLIA [id number] [address] [place] [address] [place] Sodium [Moles/Vol] 143 mmol/L Normal 136-144 [facility] Comment on above: Order Comment: Speci men Type: BLOOD SPECIMEN Ordering Facility: [facility] Address: [address] [place] [address] Performed By: #### 5 5454-3 #### [facility] CLIA [id number] [address] [place] [address] [place] Urea nitrogen [Mass/Vol] 27 mg/dL High 9-24 [facility] Comment on above: Order Comment: Speci men Type: BLOOD SPECIMEN Ordering Facility: [facility] Address: [address] [place] [address] Performed By: #### 5 5454-3 #### [facility] CLIA [id number] [address] [place], [place] [address] [place] Lipid 1996 panelon 5 Cholesterol [Mass/Vol] 159 mg/dL Normal <200 [facility] Comment on above: Order Comment: Speci men Type: BLOOD SPECIMEN Ordering Facility: [facility] Address: [address] [place] [address] Result Comment: <200 mg/dL, Desirable 200-239 mg/dL, Borderline high >239 mg/dL, High Performed By: #### 5 5454-3 #### [facility] CLIA [id number] [address] [place] [address] [place] Cholesterol in HDL [Mass/Vol] 33 mg/dL Low >39 [facility] [facility] Comment on above: Order Comment: Zach vinson Type: BLOOD SPECIMEN Ordering Facility: [facility] Address: [address] [place] [address] Result Comment: 40-5 9 mg/dL, Acceptable >59 mg/dL, High: Negative risk factor for coronary heart disease <40 mg/dL, Low: Positive risk factor for coronary heart disease Performed By: #### 5 5454-3 #### [facility] CLIA [id number] [address] [place] [address] Cholesterol in LDL [Mass/Vol] 86 mg/dL Normal <100 [facility] Comment on above: Order Comment: Zach vinson Type: BLOOD SPECIMEN Ordering Facility: [facility] Address: [address] [place] [address] Result Comment: <100 mg/dL, Optimal 100-129 mg/dL, Near optimal/above optimal 130-159 mg/dL, Borderline high 160-189 mg/dL, High >189 mg/dL, Very high Secondary prevention optimal LDL Cholesterol levels are recommended to be < 70 mg/dL Performed By: #### 5 5454-3 #### [facility] CLIA [id number] [address] [place] [address] STATES OF [facility] Cholesterol in LDL/Cholesterol in HDL [Mass ratio] 2.61 {ratio} High <2.54 [facility] Comment on above: Order Comment: Zach [facility] Type: BLOOD SPECIMEN Ordering Facility: [facility] Address: [address] [place] [address] Result Comment: Arnoldo ross: 1. National Cholesterol Education Program ATP III Guideline At-A-Glance Quick Desk Reference: National Heart, Lung, and Blood [place]. National Institutes of Health. 2001: NIH Publication No. 01-3305. 2. An International Atherosclerosis Society position paper: global recommendations for the management of dyslipidemia: executive summary, Atherosclerosis. 2014: 232(2):410-413. Performed By: #### 5 5454-3 #### [facility] CLIA [id number] [address] [place] [address] [place] Cholesterol in VLDL [Mass/Vol] 40 mg/dL High <30 [facility] Comment on above: Order Comment: Speci men Type: BLOOD SPECIMEN Ordering Facility: [facility] Address: [address] [place] [address] Performed By: #### 5 5454-3 #### [facility] CLIA [id number] [address] [place] [address] [place] Cholesterol non HDL [Mass/Vol] 126 mg/dL Normal <130 [facility] Comment on above: Order Comment: Zach vinson Type: BLOOD SPECIMEN Ordering Facility: [facility] Address: [address] [place] [address] Result Comment: <130 mg/dL, Optimal 130-159 mg/dL, Near optimal/above optimal 160-189 mg/dL, Borderline high 190-219 mg/dL, High >219 mg/dL, Very high Secondary prevention optimal non HDL Cholesterol levels are recommended to be <100 mg/dL Performed By: #### 5 5454-3 #### [facility] CLIA [id number] [address] [place] [address] [place] Cholesterol.total/Chol esterol in HDL [Mass ratio] 4.82 {ratio} Normal <5.10 [facility] Comment on above: Order Comment: Maryi men Type: BLOOD SPECIMEN Ordering Facility: [facility] Address: [address] [place] [address] Performed By: #### 5 5454-3 #### [facility] CLIA [id number] [address] [place], [place] [address] [place] FASTING TIME 12 hrs Normal [facility] Comment on above: Order Comment: Maryi men Type: BLOOD SPECIMEN Ordering Facility: [facility] Address: [address] [place] [address] Performed By: #### 5 5454-3 #### [facility] CLIA [id number] [address] [place] [address] [place] Triglyceride [Mass/Vol] 200 mg/dL High <150 [facility] Comment on above: Order Comment: Speci men Type: BLOOD SPECIMEN Ordering Facility: [facility] Address: [address] [place] [address] Result Comment: <150 mg/dL, Normal 150-199 mg/dL, Borderline high 200-499 mg/dL, High >499 mg/dL, Very high Performed By: #### 5 5454-3 #### [facility] CLIA [id number] [address] [place] [address] [place] CTA ABD/PEL WO/W IVCONon [facility] Basic metabolic 2000 panelon 02-01-2023 Anion gap [Moles/Vol] 7 mmol/L Low -18 [facility] Comment on above: Order Comment: Speci men Type: BLOOD SPECIMENOrdering Facility: [facility] Address: [address] Performed By: #### 2 4321-2, ####[facility] [id number] [place] [address] [place] Calcium [Mass/Vol] 8.9 mg/dL Normal 8.5-10.2 [facility] Comment on above: Order Comment: Speci men Type: BLOOD SPECIMENOrdering Facility: [facility] Address: [address] [place] [address] Performed By: #### 2 4321-2, ####[facility]IA [id number] [place] [address] [place] Chloride [Moles/Vol] 105 mmol/L Normal 97-105 [facility] Comment on above: Order Comment: Speci men Type: BLOOD SPECIMENOrdering Facility: [facility] Address: [address] [place] [address] Performed By: #### 2 432-2, ####[facility] [id number] [place] [id number] [place] CO2 [Moles/Vol] 27 mmol/L Normal 22-30 [facility] Comment on above: Order Comment: Speci men Type: BLOOD SPECIMENOrdering Facility: [facility] Address: [address] [place] [address] Performed By: #### 2 4320-, ####[facility]ORYCLIA [id number] [place] [id number] [place] Creatinine [Mass/Vol] 1.13 mg/dL Normal 0.73-1.22 [facility] Comment on above: Order Comment: Speci men Type: BLOOD SPECIMENOrdering Facility: [facility] Address: [address] [place] [address] Performed By: #### 2 4320-08, ####[facility] [id number] [place] [address] [place] ESTIMATED GLOMERULAR FILTRATION RATE 64 mL/min/1.73m??? Normal >=60 [facility] Comment on above: Order Comment: Maryi men Type: BLOOD SPECIMENOrdering Facility: [facility] Address: [address] [place] [address] Result Comment: Toya mated Glomerular Filtration Rate [...] actual GFR. Performed By: #### 2 2, ####[facility]ATORYCLIA [id number] [place] [id number] [place] Glucose [Mass/Vol] 118 mg/dL High 74-99 [facility] Comment on above: Order Comment: Speci men Type: BLOOD SPECIMENOrdering Facility: [facility] Address: [address] [place] [id number] Result Comment: The [place] Diabetes Association (ADA) provides guidance for cutoff [...] Standards of Medical Care in Diabetes 2016, [place] Diabetes Association. Diabetes Care. 2016.39(Suppl 1). Performed By: #### 2 4321-2, ####[facility]ORYCLIA [id number] [place] [address] [place] Potassium [Moles/Vol] 3.9 mmol/L Normal 3.7-5.1 [facility] Comment on above: Order Comment: Speci men Type: BLOOD SPECIMENOrdering Facility: [facility] Address: [address] [place] [address] Performed By: #### 2 4320-08, ####[facility] LABORATORYCLIA [id number] [place] [address] [place] Sodium [Moles/Vol] 139 mmol/L Normal 136-144 [facility] Comment on above: Order Comment: Speci men Type: BLOOD SPECIMENOrdering Facility: [facility] Address: [address] Performed By: #### 2 4320-2, ####[facility] LABORATORYCLIA [id number] [place] [address] [place] Urea nitrogen [Mass/Vol] 19 mg/dL Normal 9-24 [facility] Comment on above: Order Comment: Speci men Type: BLOOD SPECIMENOrdering Facility: [facility] Address: [address] [place] [address] Performed By: #### 2 4320-2, 61218-6 ####[facility]ORYCLIA [id number] [address] CBC panel Auto (Bld)on 02-01 Erythrocyte distribution width (RBC) [Ratio] 14.0 % Normal 11.5-15.0 [facility] Comment on above: Order Comment: Speci men Type: BLOOD SPECIMEN Ordering Facility: [facility] Address: [address] [place] [address] Performed By: #### 5 8410-2 #### [facility] CLIA [id number] [address] [place] [address] Hematocrit (Bld) [Volume fraction] 35.8 % Low 39.0-51.0 [facility] Comment on above: Order Comment: Speci men Type: BLOOD SPECIMEN Ordering Facility: [facility] Address: [address] [place] [address] Performed By: #### 5 8410-2 #### [facility] CLIA [id number] [address] [place] [address] OF [place] Hemoglobin (Bld) [Mass/Vol] 11.9 g/dL Low 13.0-17.0 [facility] Comment on above: Order Comment: Speci men Type: BLOOD SPECIMEN Ordering Facility: [facility] Address: [address] [place] [address] Performed By: #### 5 8410-2 #### [facility] CLIA [id number] [address] [place] [address] [facility] MCH (RBC) [Entitic mass] 31.6 pg Normal 26.0-34.0 [facility] Comment on above: Order Comment: Speci men Type: BLOOD SPECIMEN Ordering Facility: [facility] Address: [address] [place] [address] Performed By: #### 5 8410-2 #### [facility] CLIA [id number] [address] [place] [address] [place] MCHC (RBC) [Mass/Vol] 33.2 g/dL Normal 30.5-36.0 [facility] Comment on above: Order Comment: Speci men Type: BLOOD SPECIMEN Ordering Facility: [facility] Address: [address] [place] [address] Performed By: #### 5 8410-2 #### [facility] CLIA [id number] [address] [place] [address] [place] MCV (RBC) [Entitic vol] 95.0 fL Normal 80.0-100.0 [facility] Comment on above: Order Comment: Speci men Type: BLOOD SPECIMEN Ordering Facility: [facility] Address: [address] [place] [address] Performed By: #### 5 8410-2 #### [facility] CLIA [id number] [address] [place] [address] [place] Nucleated RBC (Bld) [#/Vol] 10*3/uL Normal <0.01 [facility] Comment on above: Order Comment: Speci men Type: BLOOD SPECIMEN Ordering Facility: [facility] Address: [address] [place] [address] Performed By: #### 5 8410-2 #### [facility] CLIA [id number] [address] [place] [address] [place] Platelet mean volume (Bld) [Entitic vol] 9.2 fL Normal 9.0-12.7 [facility] Comment on above: Order Comment: Speci men Type: BLOOD SPECIMEN Ordering Facility: [facility] Address: [address] [place] [address] Performed By: #### 5 8410-2 #### [facility] CLIA [id number] [address] [place] [address] [place] Platelets (Bld) [#/Vol] 152 10*3/uL Normal 150-400 [facility] Comment on above: Order Comment: Speci men Type: BLOOD SPECIMEN Ordering Facility: [facility] Address: [address] [place] [address] Performed By: #### 5 8410-2 #### [facility] CLIA [id number] [address] [place] [address] [place] RBC (Bld) [#/Vol] 3.77 10*6/uL Low 4.20-6.00 [facility] Comment on above: Order Comment: Speci men Type: BLOOD SPECIMEN Ordering Facility: [facility] Address: [address] [place] [address] Performed By: #### 5 8410-2 #### [facility] CLIA [id number] [place] [address] [place] WBC (Bld) [#/Vol] 6.60 10*3/uL Normal 3.70-11.00 [facility] Comment on above: Order Comment: Speci men Type: BLOOD SPECIMEN Ordering Facility: [facility] Address: [address] [place] [address] Performed By: #### 5 8410-2 #### [facility] CLIA [id number] [place] [address] [place] Magnesium SerPl-mCncon 02-01 Magnesium [Mass/Vol] 1.5 mg/dL Low 1.7-2.3 [facility] Comment on above: Order Comment: Speci men Type: BLOOD SPECIMENOrdering Facility: [facility] Address: [address] [place] [address] Performed By: #### 2 4321-2, 18991-7 ####[facility] LABORATORYCLIA [id number] [place] [address] [place] ANES POSTPROC EVALon 023 ANES POSTPROC EVAL HNO ID: [id number] Author: Rylie Schulz MD Service: Critical Care [...] January 31, 2023 TIME: 12:41 PM CSN: [id number] [facility] ANES PRE-OPon 01-31-2023 ANES PRE-OP HNO ID: [id number] Author: Rylie Schulz MD Service: Critical Care Author Type: Anesthesiologist Type: Anesthesia Preprocedure Evaluation Filed: 01/31/2023 7:24 AM Note Text: ANESTHESIOLOGY DAY OF SURGERY NOTE : 1935 Procedure Information Date/Time: 01/31/23729 Procedure: ENDOVASCULAR REPAIR AORTA TO RENAL LEVEL,W/AORTO-AORTIC ENDOGRAFT,WITHOUT RUPTURE (Aorta) - Endovascular aortic aneurysm repair with iliac branch device - Damián Pierre from [place] will bring implant - 01/17 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 Patient / Responsible Alliance Party agrees to proceed: yes Patient / [...] affected area twice daily. As needed) - lwrzdlyo-kewhokoqq-bafwpnbtv isone (CORTISPORIN) 3.5-10,000-1 mg/mL-unit/mL-% otic suspension Use [...] January 31, 2023 TIME: 7:18 AM CSN: [id number] [facility] BRIEF OP NOTon 01-31-2023 BRIEF OP NOT HNO ID: [id number] Author: Boris Ramey MD Service: Vascular Surgery Author Type: Resident Type: Brief Op Note Filed: 01/31/2023 12:11 PM Note Text: BRIEF OPERATIVE / PROCEDURE NOTE LOG ID: [id number] Surgery/Procedure Date: 01/31/2023 Incision/Procedure Start Time: 8:58 AM Incision Close/Procedure End Time: 11:51 AM Surgeon(s)/Proceduralist(s) and Dictaphone Technician(s): Surgeon(s) and Role: * Eladio Pablo MD - Primary * Boris Ramey MD - Resident - Assisting No Additional Staff Procedure(s): ENDOVASCULAR REPAIR AORTA TO RENAL LEVEL,W/AORTO-AORTIC ENDOGRAFT,WITHOUT RUPTURE: 16677 (CPT?) KRISTOPHER AAA: Endo AAA Hypogastric Intentionally Covered: No Hypogastric Unintentionally Covered: Right - Patent and Left - Patent Access: Percutaneous Contrast Volume: 80 cc Endoleak Type: Lumbar branch (II) Unfit for Open Repair: Yes, due to frailty Devices Used: [place] Excluder and Iliac branch device Fluoro Time: 32.2 min, 2196 mGy Anesthesia: General ASA Class: Findings: LEFT Iliac branch device [id number] mainbody and 94x31n5ct hypogastric limb. 32x14.5x14cm [place] Excluder Main body EVAR component, bridged IBD and main body with a 27mm Gould limb and extended the R iliac limb with a [id number] [place] limb into the R MARCIN aneurysm. [...] to affected area twice daily. As needed) vengbqcz-qxdbgopot-skmnkrnku isone (CORTISPORIN) 3.5-10,000-1 mg/mL-unit/mL-% otic suspension Use [...] 31, 2023 TIME: 12:04 PM PAGER/CONTACT #: [phone] [facility] 01-31-2023 [facility] HNO ID: [id number] Author: Ibteh Paredes APRN.CNP Service: Vascular Surgery Author Type: Nurse Practitioner Type: Discharge Summary Filed: 02/01/2023 10:56 AM Note Text: Attestation signed by Eladio Pablo MD at 02/01/2023 1:13 PM agree Department of Vascular Surgery Discharge Summary (Template ID [id number]) PATIENT NAME: Paco Whitney ADMISSION DATE: 01/31/2023 [...] (HCC) (01/31/2023) COPD (chronic obstructive pulmonary disease) ([facility]) () Essential hypertension, benign () Hyperlipidemia () [...] as: M (more content not included)... Normal [facility] CONFIRM BLOOD TYPEon 023 ABO O [facility] Comment on above: Order Comment: Speci men Type: BLOOD SPECIMENOrdering Facility: [facility] Address: [address] [place] [address] Performed By: #### C ONABO ####[facility] [id number] [address] Rh Nom (Bld) Negative [facility] Comment on above: Order Comment: Speci men Type: BLOOD SPECIMENOrdering Facility: [facility] Address: [address] [place] [address] Performed By: #### C ONABO ####[facility]CL[facility] [id number] [address] HISTORY PHYSICALon HISTORY PHYSICAL HNO ID: [id number] Author: Reji Zarco MD Service: Critical Care Author Type: Resident Type: HANDP Filed: 01/31/2023 12:52 PM Note Text: Attestation signed by Pallavi Cazares MD at 01/31/2023 3:58 PM [facility] STAFF PHYSICIAN SUPERVISING RESIDENT I [...] GERD, BPH, and AAA who presents to [facility] for AAA repair. The patient has [...] W/COLLJ SPEC WHEN PFRMD 09/19/2011 Colonoscopy inpt [facility] HERNIA REPAIR HX 04/03/13 PAST SURGICAL [...] Cholecalciferol (Vit D3 (more content not included)... [facility] NURSING PROGon 01-31-2023 NURSING PROG HNO ID: [id number] Author: Pamela Sparks RN Service: Nursing Author [...] (RECOMMENDATION): None Electronically Signed By: Pamela Sparks [facility] OPERATIVE NOon 01-31-2023 OPERATIVE NO HNO ID: [id number] Author: Eladio Pablo MD Service: Vascular Surgery Author Type: Physician Type: Operative Report Filed: 01/31/2023 9:58 PM Note Text: OPERATIVE/PROCEDURE REPORT LOG ID: [id number] Surgery/Procedure Date: 01/31/2023 Incision/Procedure Start Time:8:58 AM Incision Close/Procedure End Time: 11:51 AM Surgeon(s)/Proceduralist(s) and Dictaphone Technician(s): Surgeon(s) and Role: * Eladio Pablo MD [...] tipped Amplatz wire was placed. A 14x7 [place] hypogastric limb was used to stent the [...] the appropriate length. A bridge graft 27x10 [place] Excluder was placed and deployed. The marking catheter was then placed up the ipsilateral side and a pelvic angiogram performed through the sheath to determine the location of the hypogastric artery and to determine the appropriate limb length extension. A 27 x10 bellbottom [place] extension was placed as the ipsilateral iliac [...] in stable condition. Implantable Devices: Main body [place] Excluder Conformable [id number] Ipsilateral extension [place] Excluder 27x10 gould bottom Iliac branch endoprosthesis [place] Excluder [id number] Hypogastric branch [place] Excluder 14 x 7 Bridge graft [place] Excluder 27x10 Pre-Op/Pre-Procedure Diagnosi (more content not included)... Normal [facility] TYPE AND SCREEN,30 DAYon ABO O [facility] HIstorical Ab Scr Status Negative [facility] Rh Nom (Bld) Negative [facility] NM CARDIAC PERF STRESS/PHARM on 11-29-2022 [...] later. See administered radiotracer and doses below. [facility] Date of service: 11/29/2022 9:55:40 AM [...] Final * * * Stress ECG Report: [facility] Date of service: 11/29/2022 9:55:40 AM Ordering physician: ELADIO PABLO forensic specialist: Tosha Fernando Dictaphone Technician: Lucina Mccarthy Interpreting physician: Kris Jones MD [...] * Stress Super (more content not included)... [facility] Ortiz 11-26-2022 CNPN Telephone (CDLBME) PACO WHITNEY ([id number]) 1935 M Date Time Provider Department 11/26/22 [...] Fully Assessed Reason for Visit: Reminder Call [[id number]] Prescriptions as of 11/26/2022 - ramipril (ALTACE) [...] 1 capsule by mouth once daily. - yglycqky-ehjcghkff-fplsutwha isone (CORTISPORIN) 3.5-10,000-1 mg/mL-unit/mL-% otic suspension Use [...] Status:Closed by TOSHA FERNANDO on 11/26/22 Normal [facility] CT ABD/PEL WO IVCONon 2022 Radiology Result ACTIONABLE Abnormal [facility] No Panel Informationon 10-[address] [facility] CT CHEST WO IVCONon 07-08-[address] [facility] SPIROMETRY WITH DILATOR IF O BSTRUCTEDon 07-06-2022 BZQ93-84% PRE (L/S) 1.60 L/S [facility] FEV1 PRE (L) 2.[address] [facility] FEV1/FVC PRE (%) 72 % [facility] FVC PRE (L) 3.[address] [facility] PEF PRE (L/S) 7.30 L/S [facility] XR Chest PA and Lateralon IMPRESSION: 1. Stable appearing 3 cm right lower lobe mass. 2. Underlying pulmonary fibrosis. 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: PENNY Transcribe Date/Time: Jun 08 2022 3:23P Dictated by : ZAC WASSERMAN MD This examination was interpreted and the report reviewed and electronically signed by: ZAC WASSERMAN MD on Jun 08 2022 3:27PM [facility] DIVISION OF RADIOLOGY * * *Final [...] lumbar vertebral body. DIVISION OF RADIOLOGY [facility] * * *Final Report* [...] lower lobe mass. 2. Underlying pulmonary fibrosis. 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: PSCRaleigh Transcribe Date/Time: Jun 08 2022 3:23P Dictated by : ZAC WASSERMAN MD This examination was interpreted and the report reviewed and electronically signed by: ZAC WASSERMAN MD on Jun 08 2022 3:27PM EST [facility] Radiology Study observation (narrative) [facility] XR Chest PA and LateralOrder ed By: Ccf Provider on 06-08-[address] [facility] CNOVon 12-06-2018 CNOV Office Visit (AKURFL ) PACO WHITNEY ([id number]) 1935 M Date Time Provider Department 12/06/18 2:00 PM CHALINO VALDEZ During your visit today, we recorded the following information about you: Blood pressure Weight Height 122/66 97.5 kg 1.676 m Mecca Lombardo CMA 12/06/2018 2:25 PM Signed No urine sample given. Mecca Lombardo [facility] Chalino Valdez DO, MBA 12/07/2018 10:55 AM Signed ?? [facility] [place] [facility] UROLOGY LOCATION: [address] [place] [address] ESTABLISHED PATIENT PATIENT INFO: Paco Whitney 83 [...] 51.1 Lymph% (%) Date Value 12/20/2014 31.4 [place]% (%) Date Value 12/20/2014 13.2 Eosin% (%) Date Value 12/20/2014 3.8 Baso% (%) Date Value 12/20/2014 0.5 Abs Neut (ANC) (k/uL) Date Value 12/20/2014 2.97 Abs [place] (k/uL) Date Value 12/20/2014 0.77 Abs Eosin [...] Status 02/26/2009 5.0 4.5 - 8.0 Specific [place], Ur Date Value Ref Range Status 02/26/2009 [...] Take 5 mL by mouth twice daily. ozxibtdu-prhxguhcu-tsegkdliz isone (CORTISPORIN) 3.5-10,000-1 mg/mL-unit/mL-% otic suspension Use [...] advantage with preservation of long-term renal function longwall foreman and the equivalent long-term cancer control rates [...] Time: 10:54 AM Referring Provider: JIL HENRIQUEZ) [[id number]] Allergies As of Date: 12/06/2018 Noted Allergy [...] symptoms present [N40.0] Order(s):CT KIDNEY WO/W IVCON [[id number]] Order #: [id number] FUTURE iv contrast (will be provided with [...] EachRfl: 0 CREATININE BLD [SQCRET] Order #: [id number] FUTURE Prescriptions as of 12/06/2018 Sig: IV [...] Take 5 mL by mouth twice leyla* QXPGYIWC-QKBIWIXVR-QBIRKRSPU * Use 4 Drops in the ears [...] Encounter Status:Closed by CHALINO VALDEZ on 12/07/18 [facility] PROGRESSon 12-06-2018 Protein mass conc HNO ID: [id number] Author: Chalino Valdez Service: ? Author Type: Physician Type: Progress Notes Filed: 12/07/2018 10:55 AM Note Text: ?? [facility] [place] [facility] [facility] LOCATION: [address] [place] [address] ESTABLISHED PATIENT PATIENT INFO: Paco Whitney 83 [...] 51.1 Lymph% (%) Date Value 12/20/2014 31.4 [place]% (%) Date Value 12/20/2014 13.2 Eosin% (%) Date Value 12/20/2014 3.8 Baso% (%) Date Value 12/20/2014 0.5 Abs Neut (ANC) (k/uL) Date Value 12/20/2014 2.97 Abs [place] (k/uL) Date Value 12/20/2014 0.77 Abs Eosin [...] Status 02/26/2009 5.0 4.5 - 8.0 Specific [place], Ur Date Value Ref Range Status 02/26/2009 [...] Take 5 mL by mouth twice daily. awnmxawm-ppqfxfesq-asctuiwyr isone (CORTISPORIN) 3.5-10,000-1 mg/mL-unit/mL-% otic suspension Use [...] advantage with preservation of long-term renal function longwall foreman and the equivalent long-term cancer control rates [...] MBA Date: 12/07/2018 Time: 10:[address] [facility] CT BRAIN W/O CONTRASTon - CT BRAIN W/O CONTRAST [place] [address] Patient: PACO WHITNEY Phone#: : 1935 Age: 82 Gender: M Pt. Type: ER Account: [id number] Location: 052 Ordering: EVELYN MADDEN Exam Date: 02/12/2018/13:39 Family Phys: CLARICE MURILLO Charge Code: [id number] Physician: [facility] Order #: [id number] DLP Dose#: [id number] PROCEDURE: CT BRAIN WITHOUT [...] 82 Gender: M Pt. Type: ER Account: [id number] Location: 052 Ordering: EVELYN MADDEN Exam Date: 02/12/2018/13:39 Family Phys: CLARICE MURILLO Charge Code: [id number] Physician: [facility] Order #: [id number] DLP Dose#: [id number] Dictated by: Gail Morrison MD on 02/12/2018 at 17:20 Approved by: Gail Morrison MD on 02/12/2018 at 17:20 Normal [facility] CT CERVICAL W/O CONTRASTon 0 02-12-2018 CT CERVICAL W/O CONTRAST [place] [id number] [place], [place] [address] Patient: PACO WHITNEY Phone#: : 1935 Age: 82 Gender: M Pt. Type: ER Account: [id number] Location: [facility] Ordering: EVELYN MADDEN Exam Date: 02/12/2018/13:39 Family Phys: CLARICE Aroldo MURILLO Charge Code: [id number] Physician: [facility] Order #: [id number] DLP Dose#: [id number] PROCEDURE: CT CERVICAL WITHOUT [...] 82 Gender: M Pt. Type: ER Account: [id number] Location: 052 Ordering: EVELYN MADDEN Exam Date: 02/12/2018/13:39 Family Phys: CLARICE MURILLO Charge Code: [id number] Physician: [facility] Order #: [id number] DLP Dose#: [id number] 1. 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 2. There is disc space narrowing at the C3-4 level. Dictated by: Gail Morrison MD on 02/12/2018 at 17:23 Approved by: Gail Morrison MD on 02/12/2018 at 17:23 Normal [facility] CT CHEST/ABD/PELVIS C-C+on 0 02-12-2018 CT CHEST/ABD/PELVIS C-C+ [place] [address] Patient: PACO WHITNEY Phone#: : 1935 Age: 82 Gender: M Pt. Type: ER Account: [id number] Location: 052 Ordering: EVELYN MADDEN Exam Date: 02/12/2018/13:45 Family Phys: CLARICE MURILLO Charge Code: [id number] Physician: [facility] Order #: [id number] DLP Dose#: [id number] PROCEDURE: CT CHEST/ABD/PELVIS W/WO [...] 82 Gender: M Pt. Type: ER Account: [id number] Location: 2 Ordering: EVELYN MADDEN Exam Date: 02/12/2018/13:45 Family Phys: CLARICE MURILLO Charge Code: 875659 Physician: [facility] Order #: [id number] DLP Dose#: 64.7 ADRENALS: Normal. No mass [...] MD on 02/13/2018 at 9:46 Normal [facility] Large Joint Arthro/Inj: bila teral glenohumerals [facility] Vital Signs Date Time Vital Sign Value Performing Clinician Facility 04-02-2025 13:59-0400 Body mass index (BMI) [Ratio] 26.77 kg/m2 Francia Luna MD Work Phone: [facility] 04-02-2025 13:59-0400 Body weight 84.64 kg Francia Luna MD Work Phone: [facility] 04-02-2025 13:59-0400 Diastolic blood pressure 73 mm[Hg] Francia Luna MD Work Phone: [facility] 04-02-2025 13:59-0400 Heart rate 76 /min Francia Luna MD Work Phone: [facility] 04-02-2025 13:59-0400 SaO2% (BldA) [Mass fraction] 94 % Francia Luna MD Work Phone: [facility] 04-02-2025 13:59-0400 Systolic blood pressure 121 mm[Hg] Francia Luna MD Work Phone: [facility] 03-27-2025 13:51-0400 Body mass index (BMI) [Ratio] 27.41 kg/m2 Neisha Cope APRN.RD SCIENTIST Work Phone: [facility] 03-27-2025 13:51-0400 Body weight 86.64 kg Neisha Cope APRN.RD SCIENTIST Work Phone: [facility] 03-27-2025 13:51-0400 Diastolic blood pressure 54 mm[Hg] Neisha Cope ROPE SILICA MACHINE OPERATOR.RD SCIENTIST Work Phone: [facility] 03-27-2025 13:51-0400 Heart rate 72 /min Neisha Haagen ROPE SILICA MACHINE OPERATOR.RD SCIENTIST Work Phone: [facility] 03-27-2025 13:51-0400 Respiratory rate 16 /min Neisha Haagen ROPE SILICA MACHINE OPERATOR.RD SCIENTIST Work Phone: [facility] 03-27-2025 13:51-0400 SaO2% (BldA) [Mass fraction] 95 % Neisha Haagen ROPE SILICA MACHINE OPERATOR.RD SCIENTIST Work Phone: [facility] 03-27-2025 13:51-0400 Systolic blood pressure 98 mm[Hg] Neisha Haagen ROPE SILICA MACHINE OPERATOR.RD SCIENTIST Work Phone: [facility] 03-12-2025 17:28-0400 Body temperature 97.7 [degF] Dr. Clarice Murillo MD Work Phone: [facility] 03-12-2025 17:28-0400 Diastolic blood pressure 66 mm[Hg] Dr. Clarice Murillo MD Work Phone: [facility] 03-12-2025 17:28-0400 Heart rate 70 /min Dr. Clarice Murillo MD Work Phone: [facility] 03-12-2025 17:28-0400 Respiratory rate 16 /min Dr. Clarice Murillo MD Work Phone: [facility] 03-12-2025 17:28-0400 SaO2% (BldA) [Mass fraction] 93 % Dr. Clarice Murillo MD Work Phone: [facility] 03-12-2025 17:28-0400 Systolic blood pressure 110 mm[Hg] Dr. Clarice Murillo MD Work Phone: [facility] 03-12-2025 14:56-0400 Body mass index (BMI) [Ratio] 28.5 kg/m2 Dr. Clarice Murillo MD Work Phone: [facility] 03-11-2025 21:29-0400 Body height 170.[address] Clarice Murillo MD Work Phone: 0(153)992-929551 [address] 03-11-2025 21:29-0400 Body weight 82.[address] Clarice Murillo MD Work Phone: 4(629)705-391087 [place] [address] 03-10-2025 20:07-0400 Body temperature 98.8 [degF] Dr. Clarice Murillo MD Work Phone: 6(839)551-399587 [place] [address] 03-10-2025 20:07-0400 Diastolic blood pressure 69 mm[Hg] Dr. Clarice Murillo MD Work Phone: 7(761)403-558887 [place] [address] 03-10-2025 20:07-0400 Heart rate 63 /min Dr. Clarice Murillo MD Work Phone: 4(808)637-998187 [place] [address] 03-10-2025 20:07-0400 Respiratory rate 16 /min Dr. Clarice Murillo MD Work Phone: 5(323)847-256287 [place] [address] 03-10-2025 20:07-0400 SaO2% (BldA) [Mass fraction] 95 % Dr. Clarice Murillo MD Work Phone: 4(314)458-292787 [place] [address] 03-10-2025 20:07-0400 Systolic blood pressure 123 mm[Hg] Dr. Clarice Murillo MD Work Phone: 1(122)773-012787 [place] [address] 03-10-2025 16:22-0400 Body mass index (BMI) [Ratio] 28.6 kg/m2 Dr. Clarice Murillo MD Work Phone: 4(656)387-370550 [place] [address] 03-10-2025 16:22-0400 Body weight [address] Clarice Murillo MD Work Phone: 9(527)193-775087 [place] [address] 03-10-2025 15:48-0400 Body height 175.[address] Clarice Murillo MD Work Phone: 8(091)331-402387 [place] [address] 02-05-2025 14:48-0400 Body mass index (BMI) [Ratio] 27.33 kg/m2 Clarice Murillo MD Work Phone: [facility] 02-05-2025 14:48-0400 Body weight 86.4 kg Clarice Murillo MD Work Phone: [facility] 02-05-2025 14:48-0400 Diastolic blood pressure 68 mm[Hg] Clarice Murillo MD Work Phone: [facility] 02-05-2025 14:48-0400 Heart rate 76 /min Clarice Murillo MD Work Phone: [facility] 02-05-2025 14:48-0400 Respiratory rate 16 /min Clarice Murillo MD Work Phone: [facility] 02-05-2025 14:48-0400 SaO2% (BldA) [Mass fraction] 94 % Clarice Murillo MD Work Phone: [facility] 02-05-2025 14:48-0400 Systolic blood pressure 110 mm[Hg] Clarice Murillo MD Work Phone: [facility] 11-10-2024 09:46-0400 Body temperature 97.7 [degF] Dr. Clarice Murillo MD Work Phone: [facility] 11-10-2024 09:46-0400 Diastolic blood pressure 58 mm[Hg] Dr. Clarice Murillo MD Work Phone: [facility] 11-10-2024 09:46-0400 Heart rate 71 /min Dr. Clarice Murillo MD Work Phone: [facility] 11-10-2024 09:46-0400 Respiratory rate 18 /min Dr. Clarice Murillo MD Work Phone: [facility] 11-10-2024 09:46-0400 SaO2% (BldA) [Mass fraction] 95 % Dr. Clarice Murillo MD Work Phone: [facility] 11-10-2024 09:46-0400 Systolic blood pressure 103 mm[Hg] Dr. Clarice Murillo MD Work Phone: [facility] 11-10-2024 05:33-0400 Body mass index (BMI) [Ratio] 29.7 kg/m2 Dr. Clarice Murillo MD Work Phone: [facility] 11-10-2024 05:33-0400 Body weight 90.[address] Clarice Murillo MD Work Phone: [facility] 11-08-2024 21:03-0400 Body height 175.[address] Clarice Murillo MD Work Phone: [facility] 11-03-2024 08:25-0400 Body mass index (BMI) [Ratio] 28.82 kg/m2 Jyothi Melany ROPE SILICA MACHINE OPERATOR.RD SCIENTIST Work Phone: [facility] 11-03-2024 08:25-0400 Body temperature 97.81 [degF] Jyothi Melany ROPE SILICA MACHINE OPERATOR.RD SCIENTIST Work Phone: [facility] 11-03-2024 08:25-0400 Body weight 91.1 kg Jyothi Mosley ROPE SILICA MACHINE OPERATOR.RD SCIENTIST Work Phone: [facility] 11-03-2024 08:25-0400 Diastolic blood pressure 72 mm[Hg] Jyothi Melany ROPE SILICA MACHINE OPERATOR.RD SCIENTIST Work Phone: [facility] 11-03-2024 08:25-0400 Heart rate 68 /min Jyothi Melany ROPE SILICA MACHINE OPERATOR.RD SCIENTIST Work Phone: [facility] 11-03-2024 08:25-0400 Respiratory rate 16 /min Jyothi Mosley ROPE SILICA MACHINE OPERATOR.RD SCIENTIST Work Phone: [facility] 11-03-2024 08:25-0400 SaO2% (BldA) [Mass fraction] 95 % Jyothi Sabillonk ROPE SILICA MACHINE OPERATOR.RD SCIENTIST Work Phone: [facility] 11-03-2024 08:25-0400 Systolic blood pressure 132 mm[Hg] Jyothi Mosley ROPE SILICA MACHINE OPERATOR.RD SCIENTIST Work Phone: [facility] 09-24-2024 10:02-0400 Body mass index (BMI) [Ratio] 28.52 kg/m2 Francia Luna MD Work Phone: [facility] 09-24-2024 10:02-0400 Body weight 90.17 kg Francia Luna MD Work Phone: [facility] 09-24-2024 10:02-0400 Diastolic blood pressure 73 mm[Hg] Francia Luna MD Work Phone: [facility] 09-24-2024 10:02-0400 Heart rate 74 /min Francia Luna MD Work Phone: [facility] 09-24-2024 10:02-0400 Respiratory rate 16 /min Francia Luna MD Work Phone: [facility] 09-24-2024 10:02-0400 SaO2% (BldA) [Mass fraction] 96 % Francia Luna MD Work Phone: [facility] 09-24-2024 10:02-0400 Systolic blood pressure 118 mm[Hg] Francia Luna MD Work Phone: [facility] 08-01-2024 14:16-0500 Body mass index (BMI) [Ratio] 28.37 kg/m2 Karlacat Tiwarihof ROPE SILICA MACHINE OPERATOR.RD SCIENTIST Work Phone: [facility] 08-01-2024 14:16-0500 Body weight 89.7 kg Karlacat Tiwarihof ROPE SILICA MACHINE OPERATOR.RD SCIENTIST Work Phone: [facility] 08-01-2024 14:16-0500 Diastolic blood pressure 62 mm[Hg] Karla Tannhof ROPE SILICA MACHINE OPERATOR.RD SCIENTIST Work Phone: [facility] 08-01-2024 14:16-0500 Heart rate 71 /min Akrla Tannhof ROPE SILICA MACHINE OPERATOR.RD SCIENTIST Work Phone: [facility] 08-01-2024 14:16-0500 Respiratory rate 16 /min Karla Tannhof ROPE SILICA MACHINE OPERATOR.RD SCIENTIST Work Phone: [facility] 08-01-2024 14:16-0500 SaO2% (BldA) [Mass fraction] 97 % Karlacat Tiwarihof ROPE SILICA MACHINE OPERATOR.RD SCIENTIST Work Phone: [facility] 08-01-2024 14:16-0500 Systolic blood pressure 104 mm[Hg] Karla Tannhof ROPE SILICA MACHINE OPERATOR.RD SCIENTIST Work Phone: [facility] 01-16-2024 12:59-0400 Body mass index (BMI) [Ratio] 29.13 kg/m2 Karla Tannhof ROPE SILICA MACHINE OPERATOR.RD SCIENTIST Work Phone: [facility] 01-16-2024 12:59-0400 Body weight 92.08 kg Karla Tannhof ROPE SILICA MACHINE OPERATOR.RD SCIENTIST Work Phone: [facility] 01-16-2024 12:59-0400 Diastolic blood pressure 70 mm[Hg] Karla Tannhof ROPE SILICA MACHINE OPERATOR.RD SCIENTIST Work Phone: [facility] 01-16-2024 12:59-0400 Heart rate 86 /min Karla Tannhof ROPE SILICA MACHINE OPERATOR.RD SCIENTIST Work Phone: [facility] 01-16-2024 12:59-0400 Respiratory rate 16 /min Karlacat Tiwarihof ROPE SILICA MACHINE OPERATOR.RD SCIENTIST Work Phone: [facility] 01-16-2024 12:59-0400 SaO2% (BldA) [Mass fraction] 95 % Karla Tannhof ROPE SILICA MACHINE OPERATOR.RD SCIENTIST Work Phone: [facility] 01-16-2024 12:59-0400 Systolic blood pressure 110 mm[Hg] Karla Tannhof ROPE SILICA MACHINE OPERATOR.RD SCIENTIST Work Phone: [facility] 01-03-2024 10:46-0400 Body mass index (BMI) [Ratio] 28.84 kg/m2 Francia Luna MD Work Phone: [facility] 01-03-2024 10:46-0400 Body weight 91.17 kg Francia Luna MD Work Phone: [facility] 01-03-2024 10:46-0400 Diastolic blood pressure 68 mm[Hg] Francia Luna MD Work Phone: [facility] 01-03-2024 10:46-0400 Heart rate 75 /min Francia Luna MD Work Phone: [facility] 01-03-2024 10:46-0400 Respiratory rate 14 /min Francia Luna MD Work Phone: [facility] 01-03-2024 10:46-0400 SaO2% (BldA) [Mass fraction] 96 % Francia Luna MD Work Phone: [facility] 01-03-2024 10:46-0400 Systolic blood pressure 120 mm[Hg] Francia Luna MD Work Phone: [facility] 10-07-2023 09:59-0400 Body weight 91.17 kg Karla Tannhof ROPE SILICA MACHINE OPERATOR.RD SCIENTIST Work Phone: [facility] 10-07-2023 09:59-0400 Diastolic blood pressure 72 mm[Hg] Karla Tannhof ROPE SILICA MACHINE OPERATOR.RD SCIENTIST Work Phone: [facility] 10-07-2023 09:59-0400 Heart rate 64 /min Karla Tannhof ROPE SILICA MACHINE OPERATOR.RD SCIENTIST Work Phone: [facility] 10-07-2023 09:59-0400 Respiratory rate 16 /min Karla Tannhof ROPE SILICA MACHINE OPERATOR.RD SCIENTIST Work Phone: [facility] 10-07-2023 09:59-0400 SaO2% (BldA) [Mass fraction] 95 % Karla Tannhof ROPE SILICA MACHINE OPERATOR.RD SCIENTIST Work Phone: [facility] 10-07-2023 09:59-0400 Systolic blood pressure 126 mm[Hg] Karla Tannhof ROPE SILICA MACHINE OPERATOR.RD SCIENTIST Work Phone: [facility] 07-04-2023 11:03-0500 Body weight 90.27 kg Samaria Lazcano PA-C Work Phone: [facility] 03-14-2023 12:55-0400 Body weight 91.17 kg Karla Tannhof ROPE SILICA MACHINE OPERATOR.RD SCIENTIST Work Phone: [facility] 03-14-2023 12:55-0400 Diastolic blood pressure 78 mm[Hg] Karla Tannhof ROPE SILICA MACHINE OPERATOR.RD SCIENTIST Work Phone: [facility] 03-14-2023 12:55-0400 Heart rate 51 /min Karla Tannhof ROPE SILICA MACHINE OPERATOR.RD SCIENTIST Work Phone: [facility] 03-14-2023 12:55-0400 Respiratory rate 16 /min Karla Tannhof ROPE SILICA MACHINE OPERATOR.RD SCIENTIST Work Phone: [facility] 03-14-2023 12:55-0400 SaO2% (BldA) [Mass fraction] 94 % Karla Tannhof ROPE SILICA MACHINE OPERATOR.RD SCIENTIST Work Phone: [facility] 03-14-2023 12:55-0400 Systolic blood pressure 102 mm[Hg] Karla Tannhof ROPE SILICA MACHINE OPERATOR.RD SCIENTIST Work Phone: [facility] 03-08-2023 10:40-0400 Diastolic blood pressure 80 mm[Hg] Ibeth Reggie ROPE SILICA MACHINE OPERATOR.RD SCIENTIST Work Phone: [facility] 03-08-2023 10:40-0400 Heart rate 78 /min Ibeth Reggie ROPE SILICA MACHINE OPERATOR.RD SCIENTIST Work Phone: [facility] 03-08-2023 10:40-0400 SaO2% (BldA) [Mass fraction] 97 % Ibeth Reggie ROPE SILICA MACHINE OPERATOR.RD SCIENTIST Work Phone: [facility] 03-08-2023 10:40-0400 Systolic blood pressure 132 mm[Hg] Ibeth Reggie ROPE SILICA MACHINE OPERATOR.RD SCIENTIST Work Phone: [facility] 01-24-2023 11:12-0400 Body height 167.6 cm Pacc 1 Work Phone: [facility] 01-24-2023 11:12-0400 Body temperature 98.49 [degF] Pacc 1 Work Phone: [facility] 01-24-2023 11:12-0400 Body weight 95.71 kg Pacc 1 Work Phone: [facility] 01-24-2023 11:12-0400 Diastolic blood pressure 64 mm[Hg] Pacc 1 Work Phone: [facility] 01-24-2023 11:12-0400 Heart rate 72 /min Pacc 1 Work Phone: [facility] 01-24-2023 11:12-0400 Respiratory rate 18 /min Pacc 1 Work Phone: [facility] 01-24-2023 11:12-0400 SaO2% (BldA) [Mass fraction] 92 % Pacc 1 Work Phone: [facility] 01-24-2023 11:12-0400 Systolic blood pressure 134 mm[Hg] Pacc 1 Work Phone: [facility] 01-06-2023 12:57-0400 Body weight 91.17 kg Samaria Jaleesa PA-C Work Phone: [facility] 01-06-2023 12:57-0400 Diastolic blood pressure 64 mm[Hg] Samaria Jaleesa PA-C Work Phone: [facility] 01-06-2023 12:57-0400 Heart rate 95 /min Samaria Jaleesa PA-C Work Phone: [facility] 01-06-2023 12:57-0400 Respiratory rate 14 /min Samaria Jaleesa PA-C Work Phone: [facility] 01-06-2023 12:57-0400 SaO2% (BldA) [Mass fraction] 96 % Samaria Jaleesa PA-C Work Phone: [facility] 01-06-2023 12:57-0400 Systolic blood pressure 98 mm[Hg] Samaria Jaleesa PA-C Work Phone: [facility] 11-11-2022 11:51-0400 Body height 167.6 cm Chalino Valdez DO Work Phone: [facility] 11-11-2022 11:51-0400 Body weight 96.16 kg Chalino Valdez DO Work Phone: [facility] 10-27-2022 14:28-0400 Body weight 97.07 kg Eladio Pablo MD Work Phone: [facility] 10-27-2022 14:28-0400 Diastolic blood pressure 65 mm[Hg] Eladio Pablo MD Work Phone: [facility] 10-27-2022 14:28-0400 Heart rate 83 /min Eladio Pablo MD Work Phone: [facility] 10-27-2022 14:28-0400 SaO2% (BldA) [Mass fraction] 95 % Eladio Pablo MD Work Phone: [facility] 10-27-2022 14:28-0400 Systolic blood pressure 116 mm[Hg] Eladio Pablo MD Work Phone: [facility] 09-06-2022 18:29-0500 Body weight 96.3 kg Clarice Murillo MD Work Phone: [facility] 09-06-2022 18:29-0500 Diastolic blood pressure 78 mm[Hg] Clarice Murillo MD Work Phone: [facility] 09-06-2022 18:29-0500 Heart rate 74 /min Clarice Murillo MD Work Phone: [facility] 09-06-2022 18:29-0500 Respiratory rate 16 /min Clarice Murillo MD Work Phone: [facility] 09-06-2022 18:29-0500 Systolic blood pressure 130 mm[Hg] Clarice Murillo MD Work Phone: [facility] 07-06-2022 13:25-0500 Body height 167.6 cm Francia Luna MD Work Phone: [facility] 07-06-2022 13:25-0500 Body weight 92.99 kg Francia Luna MD Work Phone: [facility] 07-06-2022 13:25-0500 Heart rate 69 /min Francia Luna MD Work Phone: [facility] 07-06-2022 13:25-0500 Respiratory rate 14 /min Francia Luna MD Work Phone: [facility] 07-06-2022 13:25-0500 SaO2% (BldA) [Mass fraction] 96 % Francia Luna MD Work Phone: [facility] 2022 09:49-0500 Body temperature 98.2 [degF] Keith Guillen ROPE SILICA MACHINE OPERATOR.RD SCIENTIST Work Phone: [facility] 2022 09:49-0500 Body weight 92.53 kg Keith Guillen ROPE SILICA MACHINE OPERATOR.RD SCIENTIST Work Phone: [facility] 2022 09:49-0500 Diastolic blood pressure 60 mm[Hg] Keith Guillen ROPE SILICA MACHINE OPERATOR.RD SCIENTIST Work Phone: [facility] 2022 09:49-0500 Heart rate 82 /min Keith Guillen ROPE SILICA MACHINE OPERATOR.RD SCIENTIST Work Phone: [facility] 2022 09:49-0500 Respiratory rate 16 /min Keith Guillen ROPE SILICA MACHINE OPERATOR.RD SCIENTIST Work Phone: [facility] 2022 09:49-0500 SaO2% (BldA) [Mass fraction] 97 % Keith Guillen ROPE SILICA MACHINE OPERATOR.RD SCIENTIST Work Phone: [facility] 2022 09:49-0500 Systolic blood pressure 110 mm[Hg] Keith Guillen ROPE SILICA MACHINE OPERATOR.RD SCIENTIST Work Phone: [facility] 06-04-2022 10:38-0500 Body weight 91.9 kg Clarice Murillo MD Work Phone: [facility] 06-04-2022 10:38-0500 Diastolic blood pressure 78 mm[Hg] Clarice Murillo MD Work Phone: [facility] 06-04-2022 10:38-0500 Heart rate 86 /min Clarice Murillo MD Work Phone: [facility] 06-04-2022 10:38-0500 Respiratory rate 20 /min Clarice Murillo MD Work Phone: [facility] 06-04-2022 10:38-0500 Systolic blood pressure 122 mm[Hg] Clarice Murillo MD Work Phone: [facility] 11-30-2021 15:45-0400 Body weight 91.63 kg Clarice Murillo MD Work Phone: [facility] 11-30-2021 15:45-0400 Diastolic blood pressure 60 mm[Hg] Clarice Murillo MD Work Phone: [facility] 11-30-2021 15:45-0400 Heart rate 62 /min Clarice Murillo MD Work Phone: [facility] 11-30-2021 15:45-0400 Respiratory rate 14 /min Clarice Murillo MD Work Phone: [facility] 11-30-2021 15:45-0400 Systolic blood pressure 100 mm[Hg] Clarice Murillo MD Work Phone: [facility] Encounters Encounter Date Encounter Type Care Provider Facility Start: 04-26-2025 End: 04-26-2025 ambulatory [facility] Facility:[facility] Start: 04-25-2025 End: 04-25-2025 ambulatory [facility] Facility:[facility] Start: 04-22-2025 End: 04-22-2025 ambulatory [facility] Facility:[facility] Start: 04-10-2025 End: 04-10-2025 ambulatory [facility] Facility:[facility] Start: 04-10-2025 End: 04-10-2025 ambulatory [facility] Facility:[facility] Start: 04-08-2025 End: 04-08-2025 ambulatory [facility] Facility:[facility] Start: 04-02-2025 End: 04-02-2025 Patient encounter procedure Francia Luna MD Work Phone: Pulmonary Medicine Comment on above: 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); Right lower lobe lung mass; Former cigarette smoker Start: 04-02-2025 End: 04-02-2025 ambulatory [facility] Facility:[facility] Start: 03-28-2025 End: 03-28-2025 Follow-up encounter Neisha Cope APRN.RD SCIENTIST Work Phone: [facility] [place] Comment on above: Results Start: 03-27-2025 End: 03-27-2025 ambulatory [facility] Facility:[facility] Start: 03-27-2025 End: 03-27-2025 Office outpatient visit 25 minutes Neisha Cope APRN.RD SCIENTIST Work Phone: [facility] [place] Comment on above: Leg swelling (Primar y Dx); Rectal bleeding Start: 03-27-2025 End: 03-27-2025 ambulatory [facility] Facility:[facility] Start: 03-12-2025 Non-patient / Non-visit Jf Kay nd, DO [facility] Start: 03-12-2025 Non-patient / Non-visit Dr. Serena Prasad MD -[facility] Work Phone: Start: 03-12-2025 ambulatory [facility] Start: 03-11-2025 Non-patient / Non-visit Dr. Serena Prasad MD -[facility] Work Phone: Start: 03-10-2025 ambulatory Miller Vides Fac ility:[facility] Start: 03-10-2025 End: 03-12-2025 Evaluation and management of inpatient Dr. Miller Vides DO -Progressive Care Unit Work Phone: Start: 02-22-2025 End: 02-22-2025 Subsequent [facility] Work Phone: Radiology Comment on above: Primary osteoarthrit is of right knee [M17.11] Start: 02-22-2025 End: 02-22-2025 ambulatory [facility] Facility:[facility] Start: 02-08-2025 End: 02-08-2025 Follow-up encounter Sid Frank APRN.RD SCIENTIST Work Phone: [facility] [place] Comment on above: Results Start: 02-05-2025 ambulatory [facility] Facil ity:[facility] Start: 02-05-2025 End: 02-05-2025 Subsequent hospital visit by physician Xr [facility] [place] Work Phone: Radiology Comment on above: Chronic pain of both shoulders [M25.511, G89.29, M25.512] Start: 02-05-2025 End: 02-05-2025 Office outpatient visit 25 minutes Clarice Murillo MD Work Phone: [facility] Comment on above: Essential hypertensi on, benign (Primary Dx); Abdominal aortic aneurysm (AAA) without rupture, unspecified part; Hyperlipidemia, unspecified hyperlipidemia type; Chronic pain of both shoulders; Neuropathy; Primary osteoarthritis of both shoulders; Pulmonary emphysema, unspecified emphysema type (HCC); Pedal edema Start: 02-05-2025 End: 02-05-2025 ambulatory [facility] Facility:[facility] Start: 01-31-2025 End: 04-02-2025 Follow-up encounter Sid Frank APRN.CNP Work Phone: [facility] Start: 01-30-2025 End: 01-30-2025 ambulatory [facility] Facility:[facility] Start: 11-19-2024 End: 11-19-2024 Refill Clarice Murillo MD Work Phone: [address] [place] [address] Comment on above: Refill Request Start: 11-13-2024 End: 11-13-[address] Dennis Rocha MD -[facility] Work Phone: Start: 11-13-2024 End: 11-13-2024 ambulatory Dennis Rocha Facility:[facility] Start: 11-10-2024 Non-patient / Non-visit Dr. Riky Li MD -[facility] Work Phone: Start: 11-09-2024 Non-patient / Non-visit Dr. Dennis hameed MD -[facility] Start: 11-08-2024 ambulatory Riky Li Facility: [facility] Start: 11-08-2024 End: 11-10-2024 Evaluation and management of inpatient Dr. Riky Li MD -[facility] 3 Work Phone: Start: 11-08-2024 ambulatory Riky Li Facility: [facility] Start: 11-08-2024 Non-patient / Non-visit Dr. Dennis hameed MD -[facility] Start: 11-08-2024 End: 11-08-2024 ambulatory VASYL WELSH Facility:[facility] Start: 11-03-2024 End: 11-03-2024 Patient encounter procedure Jyothi Mosley APRN.RD SCIENTIST Work Phone: [facility] Comment on above: URI with cough and c ongestion (Primary Dx); COPD with acute exacerbation (HCC); Asthma with COPD with exacerbation (HCC) Start: 11-03-2024 End: 11-03-2024 ambulatory JYOTHI MOSLEY Facility:[facility] Start: 11-01-2024 End: 11-01-2024 Refill Francia Luna MD Work Phone: Pulmonary Medicine Comment on above: Refill Request Start: 09-24-2024 End: 09-24-2024 ambulatory CLARICE MURILLO Facility:[facility] Start: 09-24-2024 End: 09-24-2024 Patient encounter procedure Francia Luna MD Work Phone: Pulmonary Medicine Comment on above: COPD, mild (HCC) (Pr imary Dx); Lobular atelectasis; Former cigarette smoker Start: 09-07-2024 End: 09-07-2024 Refill Clarice Murillo MD Work Phone: [facility] [place] Comment on above: Refill Request Start: 08-27-2024 End: 08-27-2024 ambulatory CLARICE UMRILLO Facility:[facility] Start: 08-15-2024 End: 08-15-2024 Orders Only Fabio Noriega MD Work Phone: Orthopaedics Comment on above: Bilateral shoulder p ain, unspecified chronicity (Primary Dx) Start: 08-01-2024 End: 08-01-2024 Office outpatient visit 25 minutes Karla Campuzano APRN.RD SCIENTIST Work Phone: [facility] [place] Comment on [...] behavioral disorders Start: 08-01-2024 End: 08-01-2024 ambulatory [facility] Facility:[facility] Start: 07-24-2024 End: 07-24-2024 [facility] Facility:[facility] Start: 06-21-2024 End: 06-21-2024 ambulatory Adriel Vides RN Work Phone: [employer] Comment on above: community monitoring outreach (CDM-Telephonic outreach) Start: 05-24-2024 End: 05-24-2024 ambulatory Adriel Vides RN Work Phone: [employer] Comment on above: community monitoring outreach (CDM-Telephonic outreach/) Start: 05-04-2024 End: 05-04-2024 Refill Clarice Murillo MD Work Phone: [facility] [place] Comment on above: Refill Request Start: 04-26-2024 End: 04-26-2024 ambulatory Adriel Vides RN Work Phone: [employer] Comment on above: community monitoring outreach (CDM-Telephonic outreach) Start: 04-25-2024 End: 04-25-2024 ambulatory Adriel Vides RN Work Phone: [employer] Comment on above: community monitoring outreach (CDM-Telephonic outreach) Start: 03-26-2024 End: 03-26-2024 ambulatory Adriel Vides RN Work Phone: [employer] Comment on above: community monitoring outreach (CDM-Telephonic outreach) Start: 03-21-2024 End: 03-21-2024 Patient encounter procedure Karla Campuzano APRN.CNP Work Phone: [facility] [place] Comment on above: Essential hypertensi on, benign (Primary Dx); Hyperlipidemia, unspecified hyperlipidemia type; Abdominal aortic aneurysm (AAA) without rupture, unspecified part (HCC); GERD without esophagitis; COPD with exacerbation (HCC); Neuropathy; Chronic pain of both shoulders; Encounter for immunization Start: 03-14-2024 End: 03-14-2024 Telephone encounter Karla Campuzano APRN.RD SCIENTIST Work Phone: [facility] [place] Comment on above: Results Start: 02-24-2024 ambulatory Adriel Vides RN Work Phone: [employer] Comment on above: community monitoring outreach (CDM-Telephonic outreach) Start: 02-17-2024 Telephone encounter Clarice ellison MD Work Phone: [facility] [place] Comment on above: Patient Update Start: 01-26-2024 ambulatory Adriel Vides RN Work Phone: [employer] Comment on above: community monitoring outreach (CDM-Telephonic outreach) Start: 01-25-2024 Telephone encounter Karla syed APRN.RD SCIENTIST Work Phone: [facility] [place] Comment on above: Patient Update Start: 01-16-2024 End: 01-16-2024 Patient encounter procedure Karla Campuzano APRN.RD SCIENTIST Work Phone: [facility] [place] Comment on above: Essential hypertensi on, benign [...] Clarice araujo MD Work Phone: [facility] [place] Comment on above: Refill Request Start: 12-26-2023 ambulatory Adriel Vides RN Work Phone: [employer] Comment on above: community monitoring outreach (CDM-Telephonic outreach) Start: 12-02-2023 Refill Samaria ValerioC Work Phone: Pulmonary Medicine Comment on above: Refill Request Start: 11-23-2023 ambulatory Adriel Vides RN Work Phone: [employer] Comment on above: community monitoring outreach (CDM-Telephonic outreach) Start: 11-21-2023 Refill Clarice araujo MD Work Phone: [address] [place] [address] Comment on above: Refill Request Start: 10-24-2023 ambulatory Adriel Vides RN Work Phone: [employer] Comment on above: community monitoring outreach (CDM-Telephonic outreach) Start: 10-07-2023 End: 10-07-2023 Patient encounter procedure Karla Campuzano APRN.RD SCIENTIST Work Phone: [facility] [place] Comment on above: Bronchitis (Primary Dx); GERD without esophagitis; Essential hypertension, benign; Abdominal aortic aneurysm (AAA) without rupture, unspecified part (HCC); Hyperlipidemia, unspecified hyperlipidemia type; Neuropathy; Chronic obstructive pulmonary disease, unspecified COPD type (HCC); Acute pain of both shoulders Start: 10-03-2023 Refill Clarice araujo MD Work Phone: [facility] Comment on above: Refill Request Start: 09-14-2023 ambulatory Adriel Vides RN Work Phone: [employer] Comment on above: community monitoring outreach (CDM-Telephonic outreach/) Start: 07-04-2023 End: 07-04-2023 Office outpatient visit 10 minutes Samaria Lazcano PA-C Work Phone: Pulmonary Medicine Comment on above: Asthma-COPD overlap syndrome (Primary Dx); Lung nodules; Former cigarette smoker Start: 06-01-2023 ambulatory Adriel Vides RN Work Phone: [employer] Comment on above: community monitoring outreach (CDM-Telephonic outreach) Start: 05-13-2023 Refill Clarice araujo MD Work Phone: [facility] [place] Comment on above: Refill Request Start: 05-02-2023 ambulatory Adriel Vides RN Work Phone: [employer] Comment on above: community monitoring outreach (CDM-Telephonic outreach) Start: 03-29-2023 ambulatory Adriel Vides RN Work Phone: [employer] Comment on above: community monitoring outreach (CDM-Telephonic outreach) Start: 03-14-2023 End: 03-14-2023 Patient encounter procedure Karla Campuzano ROPE SILICA MACHINE OPERATOR.RD SCIENTIST Work Phone: [facility] [place] Comment on above: COPD with exacerbati on (HCC) (Primary Dx); Essential hypertension, benign; Hyperlipidemia, unspecified hyperlipidemia type; Abdominal aortic aneurysm (AAA) without rupture, unspecified part (HCC); GERD without esophagitis; Acute pain of both shoulders; Neuropathy Start: 03-08-2023 End: 03-08-2023 Office outpatient visit 25 minutes Ibeth Paredes APRN.RD SCIENTIST Work Phone: Vascular Surgery Comment on above: Abdominal aortic ane urysm (AAA) without rupture, unspecified part (HCC) (Primary Dx); Peripheral arterial disease (HCC); Primary hypertension; Elevated HDL Start: 03-04-2023 End: 03-04-2023 Subsequent hospital visit by physician [facility] ([facility]) Work Phone: Cat Scan Comment on above: 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) [I71.43] Start: 03-01-2023 Telephone encounter Samaria Lazcano PA-C Work Phone: Pulmonary Medicine Comment on above: Patient Update Start: 03-01-2023 End: 03-01-2023 Patient encounter procedure Ramses Jacinto ROPE SILICA MACHINE OPERATOR.RD SCIENTIST Work Phone: [facility] Comment on above: Procedure not susan d out (Primary Dx) Start: 02-23-2023 ambulatory Adriel Vides RN Work Phone: [employer] Comment on above: community monitoring outreach (CDM-Telephonic outreach/) Start: 01-31-2023 End: 02-01-2023 Evaluation and management of inpatient CLARICE MURILLO Facility:[facility] Start: 01-25-2023 ambulatory Adriel Vides RN Work Phone: [employer] Comment on above: community monitoring outreach (CDM-Telephonic outreach) Start: 01-24-2023 End: 01-24-2023 Admission to establishment [facility] [place] [facility] Work Phone: [facility] Start: 01-24-2023 End: 01-24-2023 ambulatory Pac [place] [facility] Work Phone: Pre Anesthesia Comment on [...] 01-24-2023 End: 01-24-2023 Preprocedural examination done Pac [place] 1 Work Phone: [facility] Work Phone: Start: 01-06-2023 End: 01-06-2023 Patient encounter procedure Samaria Lazcano PA-C Work Phone: Pulmonary Medicine Comment on above: Asthma with COPD wit h exacerbation (HCC) (Primary Dx); Lung nodules; Former cigarette smoker Start: 12-22-2022 ambulatory Adriel Vides RN Work Phone: [employer] Comment on above: community monitoring outreach (CDM-Telephonic outreach/) Start: 11-29-2022 ambulatory UNKNOWN PROVIDER Facili ty:[facility] Start: 11-29-2022 ambulatory UNKNOWN PROVIDER Facili ty:[facility] Start: 11-29-2022 End: 11-29-2022 Subsequent hospital visit by physician [facility] Work Phone: Cardiology Lab Comment on above: Encounter for screen ing for cardiovascular disorders [Z13.6] Start: 11-29-2022 End: 11-29-2022 Subsequent hospital visit by physician [facility] Work Phone: Molecular Imaging Comment on above: Encounter for screen ing for cardiovascular disorders [Z13.6] Start: 11-26-2022 Telephone encounter Tosha cervantes typewriter tester Lab Comment on above: Reminder Call Start: 11-25-2022 Refill Clarice araujo MD Work Phone: [address] [place] [address] Comment on above: Refill Request Start: 11-19-2022 ambulatory Adriel Vides RN Work Phone: [employer] Comment on above: community monitoring outreach [...] Telephone encounter Clarice ellison MD Work Phone: [facility] Comment on above: question on CT incid ental finding Start: 10-21-2022 ambulatory Adriel Vides RN Work Phone: [employer] Comment on above: community monitoring outreach (CDM-Telephonic outreach) Start: 10-13-2022 End: 10-13-2022 Subsequent hospital visit by physician [facility] ([facility]) Work Phone: Cat Scan Comment on above: 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) [I71.43] Start: 10-11-2022 End: 10-11-2022 Patient encounter procedure Fabio Noriega MD Work Phone: Orthopaedics Comment on above: Chronic pain of both shoulders (Primary Dx); Acute pain of both shoulders; Primary osteoarthritis of both shoulders Start: 10-11-2022 End: 10-11-2022 Subsequent hospital visit by physician Xr [facility] [place] Work Phone: Radiology Comment on above: Bilateral shoulder p ain, unspecified chronicity [M25.511, M25.512] Start: 10-06-2022 Orders Only Fabio Noriega MD Work Phone: Orthopaedics Comment on above: Bilateral shoulder p ain, unspecified chronicity (Primary Dx) Start: 09-29-2022 Telephone encounter Clarice ellison MD Work Phone: [facility] [place] Comment on above: Referral Request Start: 09-06-2022 End: 09-06-2022 Patient encounter procedure Clarice Murillo MD Work Phone: [facility] Comment on above: Acute pain of both s houlders (Primary Dx); Right renal mass; Abdominal aortic aneurysm (AAA) without rupture, unspecified part (HCC) Start: 09-02-2022 Refill Clarice araujo MD Work Phone: [facility] Comment on above: Refill Request Start: 08-19-2022 ambulatory Adriel Vides RN Work Phone: [employer] Comment on above: community monitoring outreach (CDM-Telephonic outreach) Start: 08-12-2022 Refill Clarice araujo MD Work Phone: [facility] [place] Comment on above: Refill Request Start: 07-16-2022 ambulatory Adriel Vides RN Work Phone: [employer] Comment on above: community monitoring outreach (CDM-Telephonic outreach) Start: 07-14-2022 Telephone encounter Francia Luna MD Work Phone: Pulmonary Medicine Comment on above: Results (Chest CT) Start: 07-08-2022 End: 07-08-2022 Subsequent hospital visit by physician [facility] ([facility]) Work Phone: Cat Scan Comment on above: Lung nodules [R91.8] Start: 07-06-2022 End: 07-06-2022 Patient encounter procedure Francia Luna MD Work Phone: Pulmonary Medicine Comment on above: 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); Lung nodules; Former cigarette smoker Start: 2022 Telephone encounter Keith marie APRN.RD SCIENTIST Work Phone: [facility] [place] Comment on above: clarify doxycycline rx Start: 2022 End: 2022 Patient encounter procedure Keith Guillen APRN.RD SCIENTIST Work Phone: [facility] [place] Comment on above: Acute exacerbation o f chronic obstructive pulmonary disease (COPD) (HCC) (Primary Dx) Start: 06-11-2022 ambulatory Adriel Vides RN Work Phone: [employer] Comment on above: community monitoring outreach (CDM telephonic outreach/) Start: 06-09-2022 Telephone encounter Jyothi Mosley APRN.RD SCIENTIST Work Phone: [facility] Comment on above: Results Start: 06-08-2022 End: 06-08-2022 Subsequent hospital visit by physician Marisol [facility] [place] Work Phone: Radiology Comment on above: Acute cough [R05.1] Start: 06-04-2022 End: 06-04-2022 Patient encounter procedure Clarice Murillo MD Work Phone: [facility] [place] Comment on above: Essential hypertensi on, benign [...] Refill Clarice araujo MD Work Phone: [facility] [place] Comment on above: Refill Request Start: 04-12-2022 ambulatory Marianne alexis RN Work Phone: [employer] Comment on above: Community Monitoring Outreach (CDM Telephonic.) Start: 03-15-2022 ambulatory Marianne Hinojosa Davdi alexis RN Work Phone: [facility] Start: 03-15-2022 Follow-up encounter Marianne Balderas RN Work Phone: [employer] Comment on above: Community Monitoring Outreach (CDM Telephonic Follow Up) Start: 02-16-2022 ambulatory Marianne Micaela David alexis RN Work Phone: [facility] Start: 02-16-2022 Follow-up encounter Marianne Balderas RN Work Phone: [employer] Comment on above: Community Monitoring Outreach (Telephonic Follow Up) Start: 02-15-2022 ambulatory Marianne E David alexis RN Work Phone: [facility] Start: 02-15-2022 Follow-up encounter Marianne Balderas RN Work Phone: [employer] Comment on above: Community Monitoring Outreach (Telephonic Follow Up) Start: 02-04-2022 Refill Clarice araujo MD Work Phone: [facility] [place] Comment on above: Refill Request Start: 01-19-2022 ambulatory Marianne Hinojosa David alexis RN Work Phone: [facility] Start: 01-19-2022 Follow-up encounter Marianne Balderas RN Work Phone: [employer] Comment on above: Community Monitoring Outreach (Telephonic Follow Up) Start: 12-03-2021 Telephone encounter Clarice ellison MD Work Phone: [facility] [place] Comment on above: Results Start: 11-30-2021 End: [...] syndrome Start: 11-02-2021 ambulatory Marianne alexis RN [facility] Start: 11-02-2021 Follow-up encounter Marianne Balderas RN [employer] Comment on above: Community Monitoring Outreach (Telephonic Follow Up) Start: 10-05-2021 ambulatory Marianne alexis RN [facility] Start: 10-05-2021 Follow-up encounter Marianne Balderas RN [employer] Comment on above: Community Monitoring Outreach (Telephonic Follow Up) Start: 02-12-2018 End: 02-12-2018 Emergency department patient visit [facility] Procedures Date Procedure Procedure Detail Performing Clinician Start: 03-12-[address] Clarice townsend MD Work Phone: Start: 03-12-[address] Clarice Murillo MD Work Phone: Start: 03-10-2025 Urnls dip stick/tabl et reagent auto microscopy Dr. Clarice Murillo MD Work Phone: Start: 03-10-2025 Computed tomography of abdomen and pelvis with intravenous contrast Dr. Clarice Murillo MD Work Phone: Start: 03-10-2025 Estimated [...] Start: 11-03-2024 COVID-19 MOLECULAR (POC) Jyothi Mosley ROPE SILICA MACHINE OPERATOR.RD SCIENTIST Work Phone: Start: 08-01-2024 Adult depression scr eening assessment Karla Campuzano ROPE SILICA MACHINE OPERATOR.RD SCIENTIST Work Phone: Start: 03-04-2023 Ct angio abd&plvis [...] exam ches t 2 views Ramses Jacinto ROPE SILICA MACHINE OPERATOR.RD SCIENTIST Work Phone: Start: 06-04-2022 INFLUENZA SEASONAL QUADRIVALENT HIGH DOSE AGE 65+ Clarice Murillo MD Work Phone: Plan of Treatment Date Care Activity Detail Author Start: 01-31-2028 Diabetes Screening Diabetes Screening [facility] Start: 07-24-2027 Diabetes Screening Diabetes Screening [facility] Start: 03-07-2027 Diabetes Screening Diabetes Screening [facility] Start: 07-29-2026 Diabetes Screening Diabetes Screening [facility] Start: 02-01-2026 DIABETES SCREEN DIABETES SCREEN [facility] Start: 02-01-2026 Diabetes Screening Diabetes Screening [facility] Start: 12-02-2025 DIABETES SCREEN DIABETES SCREEN [facility] Start: 10-07-2025 End: 10-07-2025 Patient encounter procedure 10/07/2025 2:45 PM EDT Office Visit Pulmonary Medicine [address] [place] [address] Francia Luna MD [address] [place] [address] 6 month follow up Pulmonary Medicine Comment on above: 6 month follow up Start: 08-09-2025 End: 08-09-2025 Patient encounter procedure Family Medicine [place] Comment on above: transfer care/6 month follow up Start: 08-01-2025 Anxiety Screening Anxiety Screening [facility] Start: 08-01-2025 Covid-19 Vaccine ( season) Covid-19 Vaccine () [facility] Comment on above: Postponed from 03/18/2024 (Declined at t his time) Start: 08-01-2025 Depression Screening Depression Screening [facility] Start: 08-01-2025 RSV Vaccine (1 - 1-dose 75+ series) RSV Vaccine (1 - 1-dose 75+ series) [facility] Comment on above: Postponed from 2012 (Declined at t his time) Start: 08-01-2025 Shingrix Vaccine (1 of 2) Shingrix Vaccine (1 of 2) [facility] Comment on above: Postponed from 1987 (Declined at t his time) Start: 05-20-2025 DIABETES SCREEN DIABETES SCREEN [facility] Start: 04-22-2025 End: 04-22-2025 Patient encounter procedure 04/22/2025 1:30 PM EDT Office Visit Orthopaedics [address] [place] [address] Ynes Souza PA-C [address] [place] [address] right knee injection Orthopaedics Comment on above: right knee injection Start: 04-10-2025 End: 04-10-2025 Patient encounter procedure 04/10/2025 11:40 AM EDT Office Visit Family Medicine [place] [address] [facility] [place] [address] Neisha Cope APRN.RD SCIENTIST [address] [facility] [place] [address] 2 week follow up b/l lower leg edema [facility] [place] Comment on above: 2 week follow up b/l lower leg edema Start: 04-02-2025 End: 04-02-2025 Patient encounter procedure 04/02/2025 2:15 PM EDT Office Visit Pulmonary Medicine [address] [place] [address] Francia Luna MD [address] [place] [address] 6 month f/u Pulmonary Medicine Comment on above: 6 month f/u Start: 03-28-2025 End: 06-27-2025 CBC W Auto Differential panel - Blood COMPLETE BLOOD COUNT AND DIFFERENTIAL Lab Routine Anemia, unspecified type Expected: 03/28/2025, Expires: 06/27/2025 [facility] Work Phone: Comment on above: Expected: 03/28/2025, Expires: Start: 03-18-2025 Influenza vaccination Influ[facility] Vacc[facility] Start: 03-12-2025 Patient discharge [facility] Start: 03-11-2025 [facility] Start: 03-11-2025 Inhalation therapy procedure [facility] Start: 03-10-2025 End: 03-11-2025 [facility] Start: 03-10-2025 Application of intermittent pneumatic compression device [facility] Start: 03-10-2025 Following clinical pathway protocol [facility] Start: 03-10-2025 Ambulation without limitation [facility] Start: 03-10-2025 Assessment of risk of venous thromboembolism [facility] Start: 03-10-2025 Incentive spirometry [facility] Start: 03-10-2025 Insertion of catheter into peripheral vein [facility] Start: 03-10-2025 Measuring intake and output [facility] Start: 03-10-2025 Oxygen therapy [facility] Start: 03-10-2025 Providing care according to standard [facility] Start: 03-10-2025 Referral to gastroenterology service [facility] Start: 03-10-2025 Hospital admission, emergency, from emergency room, medical nature [facility] Start: 03-10-2025 Verification routine [facility] Start: 03-10-2025 Admission procedure [facility] Start: 03-10-2025 Measurement of occult blood in stool specimen using immunoassay [facility] Start: 02-22-2025 End: 02-22-2025 Patient encounter procedure 02/22/2025 1:00 PM EDT Office Visit Orthopaedics [address] [place] [address] Ynes Souza PA-C [address] [place] [address] Chronic pain of both shoulders [M25.511, G89.29, M25.512] Orthopaedics Comment on above: Chronic pain of both shoulders [M25.511, G89.29, M25.512] Start: 02-05-2025 End: 02-05-2025 Patient encounter procedure 02/05/2025 3:00 PM EDT Office Visit [facility] [place] [address] [place] [address] Clarice Murillo MD [address] [place] [address] 6 month follow up and labs [facility] [place] Comment on above: 6 month follow up and labs Start: 01-29-2025 End: 04-30-2025 Comprehensive metabolic 2000 panel - Serum or Plasma COMPREHENSIVE METABOLIC PANEL Lab Routine Hyperlipidemia, unspecified hyperlipidemia type Expected: 01/29/2025, Expires: 04/30/2025 [facility] Work Phone: Comment on above: Expected: 01/29/2025, Expires: Start: 01-29-2025 End: 04-30-2025 Hemoglobin A1c in Blood HEMOGLOBIN A1C Lab Routine Elevated glucose Expected: 01/29/2025, Expires: 04/30/[address] [facility] Comment on above: Expected: 01/29/2025, Expires: Start: 01-29-2025 End: 04-30-2025 Lipid 1996 panel - Serum or Plasma LIPID PANEL BASIC Lab Routine Hyperlipidemia, unspecified hyperlipidemia type Expected: 01/29/2025, Expires: 04/30/[address] [facility] Comment on above: Expected: 01/29/2025, Expires: Start: 12-01-2024 DIABETES SCREEN DIABETES SCREEN [facility] Start: 11-10-2024 Patient discharge [facility] Start: 11-10-2024 Inhalation therapy procedure [facility] Start: 11-08-2024 Assessment of risk of venous thromboembolism [facility] Start: 11-08-2024 Incentive spirometry [facility] Start: 11-08-2024 Insertion of catheter into peripheral vein [facility] Start: 11-08-2024 Measuring intake and output [facility] Start: 11-08-2024 Providing care according to standard [facility] Start: 11-08-2024 Provision of activity privileges [facility] Start: 11-08-2024 Referral to occupational therapist [facility] Start: 11-08-2024 Referral to service [facility] Start: 11-08-2024 [facility] Start: 11-08-2024 Verification routine [facility] Start: 11-08-2024 Admission procedure [facility] Start: 11-08-2024 Elevation of affected extremity [facility] Start: 11-08-2024 End: 11-08-2024 Microbial culture, body fluid [facility] Start: 11-08-2024 Anaerobic Culture Anaerobic Culture [facility] Start: 09-24-2024 End: 09-24-2024 Patient encounter procedure 09/24/2024 10:00 AM EDT Office Visit Pulmonary Medicine [address] [place] [address] Francia Luna MD [address] [place] [address] Follow up COPD Pulmonary Medicine Comment on above: Follow up COPD Start: 08-27-2024 End: 08-27-2024 Patient encounter procedure 08/27/2024 2:30 PM EST Office Visit Orthopaedics [address] [place] [address] Fabio Noriega MD [address] [place] [address] Shoulder Pain (Cortizone Injection)/Last visit 10/11/22) Orthopaedics Comment on above: Shoulder Pain (Cortizone Injection)/Last visit 10/11/22) Start: 08-01-2024 End: 08-01-2024 Patient encounter procedure 08/01/2024 2:40 PM EST Office Visit Family Medicine [place] [address] [facility] [address] Karla Campuzano APRN.RD SCIENTIST [address] [facility] [place] [address] 4 month follow up with labs [facility] [place] Comment on above: 4 month follow up with labs Start: 07-19-2024 End: 07-19-2024 Patient encounter procedure 07/19/2024 1:15 PM EST Office Visit Pulmonary Medicine [address] [place] [address] Francia Luna MD [address] [place] [address] 6 MTH F/U COPD [facility] Comment on above: 6 MTH F/U COPD Start: 07-18-2024 Advance Directive Discussion Advance Directive Discussion [facility] Start: 07-18-2024 End: 10-17-2024 Comprehensive metabolic 2000 panel - Serum or Plasma COMPREHENSIVE METABOLIC PANEL Lab Routine Hyperlipidemia, unspecified hyperlipidemia type Expected: 07/18/2024, Expires: 10/17/2024 [facility] Work Phone: Comment on above: Expected: 07/18/2024, Expires: Start: 07-18-2024 End: 10-17-2024 Lipid 1996 panel - Serum or Plasma LIPID PANEL BASIC Lab Routine Hyperlipidemia, unspecified hyperlipidemia type Expected: 07/18/2024, Expires: 10/17/[address] [facility] Comment on above: Expected: 07/18/2024, Expires: Start: 07-18-2024 Medicare Advantage Annual Wellness Visit Medicare Advantage Annual Wellness Visit [facility] Start: 05-12-2024 DIABETES SCREEN DIABETES SCREEN [facility] Start: 04-08-2024 End: 07-08-2024 Comprehensive metabolic 2000 panel - Serum or Plasma COMP METABOLIC PANEL Lab Routine Hyperlipidemia, unspecified hyperlipidemia type Expected: 04/08/2024, Expires: 07/08/2024 [facility] Work Phone: Comment on above: Expected: 04/08/2024, Expires: Start: 04-08-2024 End: 07-08-2024 Lipid 1996 panel - Serum or Plasma LIPID PANEL BASIC Lab Routine Hyperlipidemia, unspecified hyperlipidemia type Expected: 04/08/2024, Expires: 07/08/2024 [facility] Work Phone: Comment on above: Expected: 04/08/2024, Expires: Start: 03-21-2024 End: 03-21-2024 Patient encounter procedure 03/21/2024 1:40 PM EDT Office Visit [facility] [place] [address] [place] [address] Karla Campuzano, [employer] MACHINE OPERATOR.RD SCIENTIST [address] [facility] [place] [place] [address] 3 month follow up [facility] [place] Comment on above: 3 month follow up Start: 03-18-2024 Covid-19 Vaccine ( season) Covid-19 Vaccine ( season) [facility] Start: 03-18-2024 Covid-19 Vaccine () Covid-19 Vaccine () [facility] Start: 03-18-2024 Influenza vaccination Influenza Vaccine (#1) [facility] Start: 01-16-2024 End: 01-16-2024 Patient encounter procedure 01/16/2024 1:00 PM EDT Office Visit Family Medicine [place] [address] [place], [place] [address] Karla Campuzano APRN.RD SCIENTIST [address] [facility] [place] [address] 3 month follow up [facility] [place] Comment on above: 3 month follow up Start: 01-03-2024 End: 01-03-2024 Patient encounter procedure 01/03/2024 11:00 AM EDT Office Visit Pulmonary Medicine [address] [place] [address] Francia Luna MD [address] [place] [address] six month follow up Pulmonary Medicine Comment on above: six month follow up Start: 09-08-2023 End: 03-08-2024 US ABD AORTA COMPLETE VAS LAB US ABD AORTA COMPLETE VAS LAB Vascular Lab Routine Abdominal aortic aneurysm (AAA) without rupture, unspecified part (HCC) Expected: 09/08/2023, Expires: 03/08/2024 [facility] Work Phone: Comment on above: Expected: 09/08/2023, Expires: Start: 07-18-2023 Advance Directive Discussion Advance Directive Discussion [facility] Start: 07-18-2023 Behavioral Health Screening Behavioral Health Screening [facility] Start: 07-18-2023 Depression Assessment Depression Assessment [facility] Start: 03-18-2023 Covid-19 Vaccine ( season) Covid-19 Vaccine () [facility] Start: 03-18-2023 Influenza vaccination [facility] Start: 01-24-2023 End: 03-26-2023 CONFIRM BLOOD TYPE CONFIRM BLOOD TYPE Blood Bank Routine Pre-operative examination Expected: 01/24/2023, Expires: 03/26/2023 [facility] Work Phone: Comment on above: Expected: 01/24/2023, Expires: Start: 12-02-2022 End: 02-01-2023 CBC W Auto Differential panel - Blood CBC + DIFF Lab Routine Hyperlipidemia, unspecified hyperlipidemia type Expected: 12/02/2022 (Approximate), Expires: 02/01/2023 [facility] Work Phone: Comment on above: Expected: 12/02/2022 (Approximate), Expi res: 02/01/2023 Start: 12-02-2022 End: 02-01-2023 Comprehensive metabolic 2000 panel - Serum or Plasma COMP METABOLIC PANEL Lab Routine Hyperlipidemia, unspecified hyperlipidemia type Expected: 12/02/2022 (Approximate), Expires: 02/01/2023 [facility] Work Phone: Comment on above: Expected: 12/02/2022 (Approximate), Expi res: 02/01/2023 Start: 12-02-2022 End: 02-01-2023 Lipid 1996 panel - Serum or Plasma LIPID PANEL BASIC Lab Routine Hyperlipidemia, unspecified hyperlipidemia type Expected: 12/02/2022 (Approximate), Expires: 02/01/2023 [facility] Work Phone: Comment on above: Expected: 12/02/2022 (Approximate), Expi res: 02/01/2023 Start: 07-18-2022 ADVANCE DIRECTIVE DISCUSSION ADVANCE DIRECTIVE DISCUSSION [facility] Start: 07-18-2022 DEPRESSION ASSESSMENT DEPRESSION ASSESSMENT [facility] Start: 03-18-2022 Influenza vaccination INFLUENZA (#1) [facility] Start: 09-30-2021 COVID-19 VACCINE (4 - Booster for Moderna series) COVID-19 VACCINE (4 - Booster for Moderna series) [facility] Start: 07-28-2021 COVID-19 VACCINE (4 - Booster for Moderna series) COVID-19 VACCINE (4 - Booster for Moderna series) [facility] Start: 07-28-2021 COVID-19 VACCINE (4 - Moderna series) COVID-19 VACCINE (4 - Moderna series) [facility] Start: 07-18-2021 ADVANCE DIRECTIVE DISCUSSION ADVANCE DIRECTIVE DISCUSSION [facility] Start: 07-18-2021 DEPRESSION ASSESSMENT DEPRESSION ASSESSMENT [facility] Start: 01-31-2021 COVID-19 VACCINE (3 - Booster for Moderna series) COVID-19 VACCINE (3 - Booster for Moderna series) [facility] Start: 2012 RSV Vaccine (1 - 1-dose 75+ series) RSV Vaccine (1 - 1-dose 75+ series) [facility] Start: 02-10-2012 Urine microalbumin profile [facility] Start: 1997 RSV Vaccine (1 - 1-dose 60+ series) RSV Vaccine (1 - 1-dose 60+ series) [facility] Start: 1987 SHINGRIX VACCINE (1 of 2) SHINGRIX VACCINE (1 of 2) [facility] Start: 1955 Anxiety Screening Anxiety Screening [facility] Start: 1955 Depression Screening Depression Screening [facility] Anion gap in Serum o r Plasma [facility] Bacteria identified in Unspecified specimen by Anaerobe culture [facility] BUN/Creatinine ratio [facility] Calcium [Mass/volume ] in Serum or Plasma [facility] Carbon dioxide, tota l [Moles/volume] in Central venous blood [facility] Creatinine [Mass/vol ume] in Serum or Plasma [facility] End: 08-05-2023 Ct thorax w/o contrast material CT CHEST WO IVCON Radiology Routine Lung nodules 1 Occurrences starting 07/06/2022 until 08/05/2023 [facility] Work Phone: Comment on above: 1 Occurrences starting 07/06/2022 until 08/05/2023 Erythrocyte mean corpuscular volume determination [facility] Glucose [Mass/volume ] in Serum or Plasma [facility] Hematocrit [Volume Fraction] of Blood [facility] Hemoglobin [Mass/vol ume] in Blood [facility] Leukocytes [#/volume ] in Blood [facility] Mean corpuscular hemoglobin concentration determination [facility] Mean corpuscular hemoglobin determination [facility] Measurement of renal function [facility] Neutrophil count [facility] Neutrophil percent differential count [facility] Patient referral [facility] Work Phone: Platelets [#/volume] in Blood [facility] Potassium measurement [facility] Red blood cell count [facility] Red cell distributio n width determination [facility] Serum chloride measurement [facility] Sodium measurement [facility] Urea nitrogen [Mass/volume] in Serum or Plasma [facility] XR Knee - right 4 Views XR KNEE GENERAL 4V AP BOTH/PA BOTH/LAT/MERC RIGHT Radiology Routine Primary osteoarthritis of right knee 02/22/2025 2:04 PM EDT [facility] Work Phone: End: 09-14-2025 XR Shoulder - left 3 Views XR SHOULDER GENERAL 3V OR MORE AP/TRUE AP/OTHER LEFT Radiology Routine Bilateral shoulder pain, unspecified chronicity 1 Occurrences starting 08/15/2024 until 09/14/2025 [facility] Work Phone: Comment on above: 1 Occurrences starting 08/15/2024 until 09/14/2025 End: 03-07-2026 XR Shoulder - left 3 Views XR SHOULDER GENERAL 3V OR MORE AP/TRUE AP/OTHER LEFT Radiology Routine Chronic pain of both shoulders 1 Occurrences starting 02/05/2025 until 03/07/[address] [facility] Comment on above: 1 Occurrences starting 02/05/2025 until 03/07/2026 XR Shoulder - left 3 Views XR SHOULDER GENERAL 3V OR MORE AP/TRUE AP/OTHER LEFT Radiology Routine Chronic pain of both shoulders 02/05/2025 4:07 PM EDT [facility] End: 09-14-2025 XR Shoulder - right 3 Views XR SHOULDER GENERAL 3V OR MORE AP/TRUE AP/OTHER RIGHT Radiology Routine Bilateral shoulder pain, unspecified chronicity 1 Occurrences starting 08/15/2024 until 09/14/[address] [facility] Comment on above: 1 Occurrences starting 08/15/2024 until 09/14/2025 End: 03-07-2026 XR Shoulder - right 3 Views XR SHOULDER GENERAL 3V OR MORE AP/TRUE AP/OTHER RIGHT Radiology Routine Chronic pain of both shoulders 1 Occurrences starting 02/05/2025 until 03/07/2026 [facility] Work Phone: Comment on above: 1 Occurrences starting 02/05/2025 until 03/07/2026 XR Shoulder - right 3 Views XR SHOULDER GENERAL 3V OR MORE AP/TRUE AP/OTHER RIGHT Radiology Routine Chronic pain of both shoulders 02/05/2025 4:07 PM EDT [facility] End: 11-05-2023 XR SHOULDER GENERAL 3V OR MORE AP/TRUE AP/OTHER LEFT XR SHOULDER GENERAL 3V OR MORE AP/TRUE AP/OTHER LEFT Radiology Routine Bilateral shoulder pain, unspecified chronicity 1 Occurrences starting 10/06/2022 until 11/05/2023 [facility] Work Phone: Comment on above: 1 Occurrences starting 10/06/2022 until 11/05/2023 End: 11-05-2023 XR SHOULDER GENERAL 3V OR MORE AP/TRUE AP/OTHER RIGHT XR SHOULDER GENERAL 3V OR MORE AP/TRUE AP/OTHER RIGHT Radiology Routine Bilateral shoulder pain, unspecified chronicity 1 Occurrences starting 10/06/2022 until 11/05/2023 [facility] Work Phone: Comment on above: 1 Occurrences starting 10/06/2022 until 11/05/2023 [facility] Immunizations Immunization Date Immunization Notes Care Provider Wilberto real 03-21-2024 influenza, high dose seasonal, preservative-free Karla Campuzano APRN.CNP Work Phone: [facility] 03-21-2024 influenza virus vacc ine, unspecified formulation Clarice Murillo MD Work Phone: [facility] 07-08-2023 influenza (HD-IIV4) vaccine, age 65+ yr, high dose, quadrivalent, PF (FLUZONE HIGH-DOSE) Adriel Vides RN Work Phone: [facility] 07-08-2023 influenza virus vacc ine, unspecified formulation Karla Justen FREEDRD SCIENTIST Work Phone: [facility] 06-04-2022 influenza, high-dose , quadrivalent vaccine (FLUZONE HIGH DOSE QUADRIVALENT) Clarice Murillo MD Work Phone: [facility] 06-04-2022 influenza virus vacc ine, unspecified formulation Adriel Vides RN Work Phone: [facility] 06-02-2021 COVID-19 original vaccine, full dose, monovalent (MODERNA) Adriel Vides RN Work Phone: [facility] 05-29-2021 influenza, high-dose , quadrivalent vaccine (FLUZONE HIGH DOSE QUADRIVALENT) Marianne Balderas RN [facility] 09-03-2020 COVID-19 vaccine, fu ll dose (MODERNA) Marianne Balderas RN [facility] 08-06-2020 COVID-19 vaccine, fu ll dose (MODERNA) Marianne Balderas RN [facility] 05-29-2020 influenza, high-dose , quadrivalent vaccine (FLUZONE HIGH DOSE QUADRIVALENT) Marianne Balderas RN [facility] 04-16-2019 influenza, high dose seasonal, preservative-free Marianne Balderas RN [facility] 05-22-2018 influenza, high dose seasonal, preservative-free Marianne Balderas RN [facility] 04-04-2018 influenza, injectabl e, quadrivalent, preservative free Dr. Clarice Murillo MD Work Phone: [facility] 03-31-2017 influenza, high dose seasonal, preservative-free Marianne Balderas RN [facility] 06-28-2016 influenza, high dose seasonal, preservative-free Marianne Balderas RN [facility] 06-17-[address] Clarice Murillo MD Work Phone: [facility] 06-25-2015 influenza, high dose seasonal, preservative-free Marianne Balderas RN [facility] 06-25-2015 pneumococcal conjuga te vaccine, 13 valent Marianne Balderas RN [facility] 05-13-2014 influenza, seasonal, injectable Marianne Balderas RN [facility] Work Phone: 05-21-2013 influenza virus vacc ine, unspecified formulation Marianne Balderas RN [facility] 05-22-2012 influenza virus vacc ine, unspecified formulation Marianne Balderas RN [facility] 02-09-2012 tetanus and diphther ia toxoids, adsorbed, preservative free, for adult use (2 Lf of tetanus toxoid and 2 Lf of diphtheria toxoid) Marianne Balderas RN [facility] 04-22-2010 influenza virus vacc ine, unspecified formulation Marianne Balderas RN [facility] 04-30-2009 influenza virus vacc ine, unspecified formulation Marianne Balderas RN [facility] Work Phone: 04-17-2006 pneumococcal polysaccharide vaccine, 23 valent Marianne Balderas RN [facility] Payers Date Payer Category Payer Self-pay 2022 Medicare (Managed Care) PRIMETIM E [id number] 2022 Unknown [id number] 2010 Unknown [employer] MEDICARE SUPPLEMENT [id number] 2010-Present [phone] [address] [place] [address] Indemnity [id number] 2010 Unknown [id number] 2002 Medicare MEDICARE MEDICAR E A AND B [id number] 2002-Present [phone] [address] [place] [id number] Medicare [id number] 2002 Medicare MEDICARE MEDICAR E A AND B [id number] 2002-Present [phone] [place] [address] Medicare [id number] Unknown [id number] Unknown [id number] Unknown [id number] 62 Unknown [id number] 62 Unknown [id number] 62 Unknown [id number] 62 Unknown [id number] [id number] 62 Unknown [id number] [id number] 62 Unknown [id number] 62 Unknown [id number] [id number] 62 Unknown [id number] [id number] 62 Unknown [id number] [id number] 62 Unknown [id number] 62 Unknown [id number] [id number] 62 Unknown [id number] 62 Unknown [id number] 62 Social History Date Type Detail Facility Start: 08-01-2018 End: 08-01-2024 Tobacco smoking status NHIS Ex-smoker [facility] Start: 1959 End: 10-30-1990 History of tobacco use Current smoker [facility] Start: 1959 End: 10-30-1990 History of tobacco use Cigarette Smoker [facility] Start: 05-29-2021 End: 11-08-2024 Alcohol intake Current non-drinker of alcohol (finding) [facility] Start: 08-01-2018 End: 06-04-2022 Tobacco Comment Multiple 4-5 year quits during smoking career. [facility] Start: 1935 Sex Assigned At Male C [facility] Work Phone: Start: 11-20-2021 End: 06-08-2022 Exposure to SARS-CoV-2 (event) Not sure [facility] Start: 08-01-2018 End: 11-29-2022 Cigarettes smoked current (pack per day) - Reported [address] [facility] Work Phone: Start: 08-01-2018 End: 08-01-2024 Tobacco use and exposure Smokeless tobacco non-user [facility] Work Phone: Start: 11-29-2022 End: 01-24-2023 Tobacco use panel [facility] Work Phone: Start: 06-18-2012 Adult Depression Screening Assessment [address] [facility] Work Phone: Start: 07-25-2017 Gender identity Identifies as male gender (finding) [facility] Work Phone: Start: 07-25-2017 Sexual orientation Heterosexual (lori hyman) [facility] Work Phone: Start: 11-08-2024 End: 03-10-2025 Tobacco smoking status NHIS Never smoked tobacco (finding) [facility] Start: 11-08-2024 Rare Rare [facility] Start: 11-08-2024 None None [facility] Start: 06-28-2018 Spouse/ Significant Other Spouse/ Significant Other [facility] Start: 11-08-2024 Non-smoker Non-smoker [facility] Start: 11-10-2024 Sex Male (finding) [facility] Medical Equipment Procedure Code Equipment Code Equipment Origin al Text Equipment Identifier Dates Excluder Conform able Aaa Endoprostesis 32mm X 14.5mm X [id number] Start: 01-31-2023 Conform Aaa Capitation [id number] S tart: 01-31-2023 Excluder Stent E npros Excdr Ibc 23x12 [id number] Start: 01-31-2023 Excluder Stent E npros Excdr Hc [id number] Start: 01-31-2023 Graft Excluder 2 7mm 21.5-25mm [place]rek Nitinol Fep 10cm Endovascular Stent - [id number] Start: 01-31-2023 Graft Excluder 2 7mm 21.5-25mm [place]rek Nitinol Fep 10cm Endovascular Stent - [id number] Start: 01-31-2023 2-Pc Uni Perla Capitation [...] goals by 07/17/2023 (describe interventions done by [facility]) Functional Status Date Assessment Result Facility 03-12-2025 Functional status Ambulates [facility] Work Phone: 11-10-2024 Functional status Ambulates;Bath room Privilege [facility] Work Phone: 02-01-2023 Are you deaf, or do you have serious difficulty hearing No 02/01/2023 10:19 AM Jey Pearson RN No [facility] 02-01-2023 Are you blind, or do you have serious difficulty seeing, even when wearing glasses No 02/01/2023 10:19 AM Jey Pearson RN No [facility] 02-01-2023 Do you have serious difficulty walking or climbing stairs No 02/01/2023 10:19 AM EDT Jey Ahuja, RUBEN No [facility] 02-01-2023 Do you have difficul ty dressing or bathing No 02/01/2023 10:19 AM EDT Jey Ahuja RN No [facility] 02-01-2023 Because of a physica l, mental, or emotional condition, do you have difficulty doing errands alone such as visiting a physician's office or shopping No 02/01/2023 10:19 AM EDJey Obrien, RUBEN No [facility] Mental Status Date Assessment Result Facility 03-12-2025 Cognitive function Voice/Name [facility] Work Phone: 11-10-2024 Cognitive function Voice/Name [facility] Work Phone: 12-24-2014 Because of a physica l, mental, or emotional condition, do you have serious difficulty concentrating, remembering, or making decisions No 12/24/2014 10:18 AM EDT Marianne Escobar MA No [facility] Clinical Notes 07-09-2014 to 04-26-2025 Francia Luna MD - 04/02/2025 2:15 PM EDTTelephone Encounter - Elizabeth Alvarez LPN - 03/28/2025 4:39 PM EDTTelephone Encounter - Elizabeth Alvarez LPN - 03/28/2025 4:39 PM EDT Note Date & Type Note Facility 04-26-2025 Note HNO ID: [id number] Author: CLARICE MURILLO MD Service: ? Author Type: Physician Type: Progress Notes Filed: 04/26/2025 11:47 Note Text: Chief Complaint Follow up leg swelling Recording using skyrockit software for draft documentation of the visit was discussed with the patient/authorized surgical sales representative; all questions welcomed and answered. Patient/authorized surgical sales representative agreed to proceed HPI Paco is [...] W/COLLJ SPEC WHEN PFRMD 09/19/2011 Colonoscopy inpt [facility] ENDOVASCULAR ANEURYSM REPAIR 01/2013 with bi-liac [...] on empty stom (more content not included)... [facility] 04-22-2025 Note HNO ID: [id number] Author: YNES SOUZA PA-C Service: ? Author Type: Physician Dictaphone Technician Type: Progress Notes Filed: 04/22/2025 13:38 Note [...] these instructions. Informed Consent Consent Obtained: Verbal Beryl Protocol A moment to CARE was completed. [...] the bedside nurse for hospitalized patients) applicable. [facility] 04-22-2025 Note HNO ID: [id number] Author: SAMARIA HALE MA Service: ? Author Type: Cordwood Cutter Type: Progress Notes Filed: 04/22/2025 13:38 Note Text: AMB ROOMING INTAKE FLOWSHEET DATA Pain Pain Level: 8 Pain Location: Knee-Right Description: Sharp Duration Amount of Time: 2 Duration Units: Years Frequency: Continuous Intervention/Comfort measure: Medication [facility] 04-10-2025 Note HNO ID: [id number] Author: NEISHA COPE APRN.SARAI Service: ? Author [...] ago. - Paco no longer sees a adjuster piano action; distrusts previous cardiologists due to past medication [...] W/COLLJ SPEC WHEN PFRMD 09/19/2011 Colonoscopy inpt [facility] ENDOVASCULAR ANEURYSM REPAIR 01/2013 with bi-liac [...] Take 1 tablet by mouth once daily. kptvgmlv-qbghfvbdr-ivjizgqeoytri e (CORTISPORIN) 3.5-10,000-1 mg/mL-unit/mL-% otic suspension Use [...] No Family History (more content not included)... [facility] 04-02-2025 History of Presen t illness Narrative Images from the original note were not included. . [facility] Note Patient name: Paco Whitney PCP: Clarice [...] Take 1 tablet by mouth once daily. pakpefwg-yririwsrh-lpvgcbqoyvlap e (CORTISPORIN) 3.5-10,000-1 mg/mL-unit/mL-% otic suspension Use [...] W/COLLJ SPEC WHEN PFRMD 09/19/2011 Colonoscopy inpt [facility] ENDOVASCULAR ANEURYSM REPAIR 01/2013 with bi-lia [...] COPD -Continue abstinence Francia Luna MD [facility] [1] Social History Tobacco Use Smoking status: Former Current packs/day: 0.00 Average packs/day: 2.0 packs/day for 32.0 years (64.0 ttl pk-yrs) Types: Cigarettes Start date: 1957 Quit date: 10/30/1990 Years since quittin.4 Smokeless tobacco: Never Tobacco comments: Multiple 4-5 year quits during smoking career. Vaping Use Vaping status: Never Used Substance Use Topics Alcohol use: No Drug use: No documented in this encounter [facility] 04-02-2025 Note HNO ID: [id number] Author: FRANCIA LUNA MD Service: ? Author Type: Physician Type: Progress Notes Filed: 04/02/2025 15:59 Note Text: . Res[facility] [place] Note Patient name: Paco Whitney PCP: Clarice [...] Take 1 tablet by mouth once daily. wzbwupcz-ngdbvwveg-eaekwhegnjuvp e (CORTISPORIN) 3.5-10,000-1 mg/mL-unit/mL-% otic suspension Use [...] W/COLLJ SPEC WHEN PFRMD 09/19/2011 Colonoscopy inpt [facility] ENDOVASCULAR ANEURYSM REPAIR 01/2013 with bi-liac [...] GI: No dysphagia/odynophagia, (more content not included)... [facility] 03-28-2025 Telephone encounter Note Phoned patient and went over results, notes from Neisha Cope ARTISTIC DIRECTOR with understanding. He plans to get repeat lab done on 04/08 so can over it at 04/[address] [facility] 03-28-2025 Miscellaneous Notes Phoned patient and went over results, notes from Neisha Cope ARTISTIC DIRECTOR with understanding. He plans to get repeat lab done on 04/08 so can over it at 04/10 appt. ----- Message from Neisha Cope APRN.RD SCIENTIST sent at 03/28/2025 2:16 PM EDT ----- ----- Message ----- From: Adilson, Background User Sent: 03/27/2025 7:18 PM EDT To: Neisha Cope APRN.RD SCIENTIST Can please let patient know that I received his lab results. He is just mildly anemic. He is a little bit lower than what he was at the hospital. Please verify that he has not had any further bleeding. Lets plan on rechecking this in two weeks when he returns for his recheck. The order is in. documented in this encounter [facility] 03-28-2025 Telephone encounter Note ----- Message from Neisha Cope APRN.RD SCIENTIST sent at 03/28/2025 2:16 PM EDT ----- ----- Message ----- From: Lab, Background User Sent: 03/27/2025 7:18 PM EDT To: Neisha Cope APRN.RD SCIENTIST [facility] 03-28-2025 Telephone encounter Note Can please let patient know that I received his lab results. He is just mildly anemic. He is a little bit lower than what he was at the hospital. Please verify that he has not had any further bleeding. Lets plan on rechecking this in two weeks when he returns for his recheck. The order is in. [facility] 03-28-2025 Note HNO ID: [id number] Author: NEISHA COPE APRN.SARAI Service: ? Author [...] W/COLLJ SPEC WHEN PFRMD 09/19/2011 Colonoscopy inpt [facility] ENDOVASCULAR ANEURYSM REPAIR 01/2013 with bi-lia [...] Take 1 tablet by mouth once daily. zvhcsckz-nvdkwdlux-jvpgxshraibbv e (CORTISPORIN) 3.5-10,000-1 mg/mL-unit/mL-% otic suspension Use [...] No Family Hi (more content not included)... [facility] 03-28-2025 History of Presen t illness [...] W/COLLJ SPEC WHEN PFRMD 09/19/2011 Colonoscopy inpt [facility] ENDOVASCULAR ANEURYSM REPAIR 01/2013 with bi-liac [...] Take 1 tablet by mouth once daily. cppzhplo-rkhkkghsn-ziqjifwctljhp e (CORTISPORIN) 3.5-10,000-1 mg/mL-unit/mL-% otic suspension Use [...] as needed for worsening/no improvement. Neisha Cope APRN.RD SCIENTIST Recording using skyrockit software for draft documentation of the visit was discussed with the patient/authorized surgical sales representative; all questions welcomed and answered. Patient/authorized surgical sales representative agreed to proceed [1] Social History [...] Drug use: No documented in this encounter [facility] 03-27-2025 Instructions Neisha Cope APRN.CNP - 03/27/2025 2:17 PM EDT Take on furosemide daily X 3 days. Recheck in 2 weeks. Let us know if no better/worsening. documented in this encounter [facility] 03-12-2025 Consult note [facility] 03-12-2025 Discharge summary [facility] 03-12-2025 Consult note Note Date/Time March 12, 2025 3:28pm [facility] Medical Records Department [address] [place] [address] Pre-Anesthesia Evaluation 03/12/25 1511 MR#: [id number] Acct: [id number] Name: PACO WHITNEY Rep #:[id number] : 1935 89 From: Erlin Vences MD PCP: Dr. Clarice Murillo MD Status:AD M IN Y Race: C Location: [place] [address] ASA Classification* ASA Classification ASA Classification: 3 [...] and/or polypectomy. 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 Female HX of Motion Sickness HX of N/V After Surgery Non-Smoker Duration of Surgery greater than 60 minutes Number of Risk Factors PONV Score Height & Weight Height & Weight: Anesthesia: Height & Weight Height 5 ft 7 in 03/11/25 21:29 Weight: 82.6 kg 03/11/25 21:29 Body Mass Index (BMI) 28.5 03/12/25 14:56 Respiratory Assessment Respiratory Assessment - 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: Respiratory Tract Infection Hx - 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 Hx Respiratory Tract Infection No 03/11/25 21:24 STOP Sleep Apnea STOP Sleep Apnea - 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: STOP Sleep Apnea - 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 Hx Hypertension Yes 03/10/25 20:18 Hx Sleep [...] Tobacco Use History 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 Tobacco Use Non-smoker 11/08/24 17:59 Smoking Status Never smoker 03/10/25 20:18 Hx Tobacco Use No 03/10/25 20:18 Years Smoking Packs Smoked per Day Smoking Cessation Date was within the last 15 years Hx Smoking Cessation Date Hx Smoking Cessation No 03/10/25 20:18 Counseling Hematologic Medial History 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 Hx of Blood Transfusion Yes 03/10/25 20:18 [...] confused, unrespo /Reproduction History /Reproductive History - 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: /Reproductive Hx- 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 Hx Now No 03/11/25 21:24 Gestational Age [...] mls @ 15 mls/hr 03/10/25 20:19 IV .[id number] PRN Saline Flush Sodium Chloride 250 mls @ 15 mls/hr 03/10/25 20:19 IV .[id number] PRN Additional IVPB Infusion Lactated Ringer's 1,000 [...] plan to give DuoNeb nebulizer treatment.) 03/12/25 2817 <Electronically signed by Erlin fabian MD> Date _ Erlin Vences MD [facility] Signature: Date CC: ~ Signed [facility] Work Phone: 1(275) 135-102208-26-2025 [facility] Medical Records Department [address] [place] [address] Discharge Summary 03/12/251714 MR#: [id number] Acct: [id number] Name: PACO WHITNEY Rep #: [id number] : 1935 89 From: Jaspal Prasad MD PCP: Dr. Clarice Murillo MD Status:ADM IN Location: [place] [address] Providers Date of Admission: 03/10/25 Primary Care Physician: Dr. Clarice Murillo MD Consultations 03/10/25 20:18 Consult: Gastroenterology Routine Consulting Provider: [facility] Reason for Consult: lower GIB, h/o [...] is a 89 M who presented to [facility] ED on 03/10/2025 with lower [...] here this week and is now at [place], and he has been on his normal routine and frequently going back and forth from home to the hospital and now [place]. He has also been eating out with [...] conditions which compli (more content not included)... [facility]08-26-2025 Procedure note [facility] Medical Records Department [address] [place] [address] Provation Physician Letter MR#: [id number] Acct: [id number] Name: PACO WHITNEY Rep #:[id number] : 1935 89 From: Jf Mack DO PCP: Dr. Clarice Murillo MD Status:AD M IN 03/12/2025 Clarice Murillo [address] [place] [address] Re : Colonoscopy procedure for Paco Whitney [...] DO ~ Date Dictated: 03/12/257 Date Transcribed: 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: RF Signed [facility]08-26-2025 Procedure note [facility] Medical Records Department [address] [place] [address] Colonoscopy Report MR#: [id number] Acct: [id number] Name: PACO WHITNEY Rep #:[id number] : 1935 89 From: Jf Mack DO [...] to age. Procedure Code(s): --- Professional --- 64981, Colonoscopy, flexible; diagnostic, including collection of specimen(s) by brushing or washing, when performed (separate procedure) CPT copyright 2021 [employer]. All rights reserved. The codes documented in this report are preliminary and upon weigh tank operator review may be revised to meet current compliance requirements. Jf Mack DO 03/12/2025 4:55:03 PM This report has been signed electronically. Number of Addenda: 0 Note Initiated On: 03/12/2025 4:37 PM 03/12/25 0508 Date _ Jf Matias Signature: Date (if indicated) CC: Dr. Clarice Murillo MD; Jf Mack DO ~ Date Dictated: 03/12/25 1637 Date Transcribed: 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: RF Signed [facility]08-26-2025 Consult note [facility] Medical Records Department [address] [place] [address] Anesthesia Postop Eval I 03/12/25 1653 MR#: [id number] Acct: [id number] Name: WHITNEYPACO Josefina Rep #:[id number] : 1935 89 From: Jalen Nunez CRNA PCP: Dr. Clarice Murillo MD Status:AD M IN Y Race: C Location: [address] Anesthesia: Postop Eval I Current Vital [...] Eval 1 completed: Yes 03/12/25 1654 y LEATHER STRETCHER> Date _ Jalen Nunez LEATHER STRETCHER Cosigner Signature: Date CC: ~ Signed [facility]08-26-2025 Progress note [facility] Medical Records Department [address] [place] [address] Progress Note 03/12/25 1624 MR#: [id number] Acct: [id number] Name: PACO WHITNEY Rep #:[id number] : 1935 89 From: Jf Mack DO PCP: Dr. Clarice Mruillo MD Status:AD M IN Location: [place] [address] Progress Note Patient has been n.p.o. for [...] ASA of 3. Visit Charges Inpatient E&M: 52108 Subs Hosp L2 03/12/25 1626 Jf Friend DO Cosigner Signature (if applicable): CC: ~ Signed [facility]08-26-2025 Consult note Author Gabrielle Burr [facility] Note Date/Time March 12, 2025 1: 36pm [facility] Medical Records Department [address] [place] [address] Counseling Note - Pharmacy 03/12/25 1336 MR#: [id number] Acct: [id number] Name: PACO WHITNEY Rep #:[id number] : 1935 89 From: Gabrielle Burr PCP: Dr. Clarice Murillo MD Status:AD M IN Y Location: [place] [address] [place] [facility] Pharmacy Service has performed discharge [...] Signature (if applicable): Date CC: ~ Signed [facility] Work Phone: 1(302) 373-976308-26-2025 Consult note [facility] Medical Records Department [address] [place] [address] Pre-Anesthesia Evaluation 03/12/25 1511 MR#: [id number] Acct: [id number] Name: PACO WHITNEY Rep #:[id number] : 1935 89 From: Erlin Vences MD PCP: Dr. Clarice Murillo MD Status:AD M IN Y Race: C Location: [place] [address] ASA Classification* ASA Classification ASA Classification: 3 [...] and/or polypectomy. 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 Female HX of Motion Sickness HX of N/V After Surgery Non-Smoker Duration of Surgery greater than 60 minutes Number of Risk Factors PONV Score Height & Weight Height & Weight: Anesthesia: Height & Weight Height 5 ft 7 in 03/11/25 21:29 Weight: 82.6 kg 03/11/25 21:29 Body Mass Index (BMI) 28.5 03/12/25 14:56 Respiratory Assessment Respiratory Assessment - 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: Respiratory Tract Infection Hx - 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 Hx Respiratory Tract Infection No 03/11/25 21:24 STOP Sleep Apnea STOP Sleep Apnea - 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: STOP Sleep Apnea - 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 Hx Hypertension Yes 03/10/25 20:18 Hx Sleep [...] Tobacco Use History 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 Tobacco Use Non-smoker 11/08/24 17:59 Smoking Status Never smoker 03/10/25 20:18 Hx Tobacco Use No 03/10/25 20:18 Years Smoking Packs Smoked per Day Smoking Cessation Date was within the last 15 years Hx Smoking Cessation Date Hx Smoking Cessation No 03/10/25 20:18 Counseling Hematologic Medial History 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 Hx of Blood Transfusion Yes 03/10/25 20:18 [...] confused, unrespo /Reproduction History /Reproductive History - 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: /Reproductive Hx- 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 Hx Now No 03/11/25 21:24 Gestational Age [...] mls @ 15 mls/hr 03/10/25 20:19 IV .[id number] PRN Saline Flush Sodium Chloride 250 mls @ 15 mls/hr 03/10/25 20:19 IV .[id number] PRN Additional IVPB Infusion Lactated Ringer's 1,000 [...] give DuoNeb nebulizer treatment.) 03/12/25 1528 caren FOWLER> Date _ Erlin Vences MD Cosigner Signature: Date CC: ~ Signed [facility]08-26-2025 Discharge summary Author Jaspal Prasad [facility] Note Date/Time March 12, 2025 1: 25pm [facility] Medical Records Department [address] [place] [address] Instructions for Home/Discharge Instructions 03/12/25 1321 MR#: [id number] Acct: [id number] Name: DEVONTEPACO Josefina Rep #:[id number] : 1935 89 From: Jaspal quevedo MD [...] by Jaspal Prasad MD>Jaspal Prasad MD CC: ARTISTIC DIRECTORKeny Samuels; CHRIS Carlin; Dr. Miller Vides DO; Dr. Clarice Murillo MD; Dr. Riky Li MD; OLI Levine; Jf Mack, ~ Signed [facility] Work Phone: 1(107) 130-867708-26-2025 Progress note Author Jaspal Prasad [facility] Note Date/Time March 12, 2025 11 :37am [facility] Medical Records Department [address] [place] [address] Progress Note - Hospitalist 03/12/25 1134 MR#: [id number] Acct: [id number] Name: PACO WHITNEY Rep #:[id number] : 1935 89 From: Jaspal quevedo MD PCP: Dr. Clarice Murillo MD Status:AD M IN Location: [place] [address] Subjective Subjective Currently n.p.o. for possible endoscopy [...] (Auto) 70.3 H, Lymph % (Auto)16.7 L, [place] % (Auto) 9.7, Eos % (Auto) 2.2, [...] DVT: SCDs Charges/Coding Visit Charges Inpatient E&M: 62598 Subs Hosp L2 03/12/25 1137 <Electronically signed by Jaspal Prasad MD> Cosigner Signature (if applicable): CC: ~ Signed [facility] Work Phone: 1(118) 945-453308-26-2025 Consult note [facility] Medical Records Department [address] [place] [address] Counseling Note - Pharmacy 03/12/25 1336 MR#: [id number] Acct: [id number] Name: PACO WHITNEY Rep #:[id number] : 1935 89 From: Gabrielle Burr PCP: Dr. Clarice Murillo MD Status:AD M IN Y Location: [place] [address] [place]acy Service has performed discharge [...] mcg/actuation aerosol inhaler 2 puff inhalation BID Rkmvdeuyu72/12/18 fenofibrate 160 mg tablet 160 mg PO DAILY cholesterol 04/10/19 albuterol sulfate 2.5 mg/3 mL (0.083 %) solution for nebulization 2.5 mg continuous nebulization Q4H PRN wheezing 11/08/24 gabapentin 600 mg tablet 600 mg PO TID neuropathy 11/08/24 latanoprost 0.005 % eye drops 1 drp ophthalmic (eye) DAILY glaucoma 11/08/24 03/12/25 1336 Date _ Gabrielle Solisigner Signature (if applicable): Date CC: ~ Signed [facility]08-26-2025 Discharge summary [facility] Medical Records Department [address] [place] [address] Instructions for Home/Discharge Instructions 03/12/25 1321 MR#: [id number] Acct: [id number] Name: PACO WHITNEY Rep #:[id number] : 1935 89 From: Jaspal quevedo MD [...] Self Care 03/12/25 1325Jaspal Prasad MD CC: ARTISTIC DIRECTORKeny Samuels; ARTISTIC DIRECTOR-C Samaria Carlin; Dr. Miller Vides DO; Dr. Clarice Murillo MD; Dr. Riky Li MD; OLI Levine; Jf Mack DO ~ Signed [facility]08-26-2025 Progress note [facility] Medical Records Department [address] [place] [address] Progress Note - Hospitalist 03/12/25 1134 MR#: [id number] Acct: [id number] Name: PACO WHITNEY Rep #:[id number] : 1935 89 From: Jaspal quevedo MD PCP: Dr. Clarice Murillo MD Status:AD M IN Location: [place] [address] 1 Subjective Subjective Currently n.p.o. for possible [...] (Auto) 70.3 H, Lymph % (Auto)16.7 L, [place] % (Auto) 9.7, Eos % (Auto) 2.2, [...] DVT: SCDs Charges/Coding Visit Charges Inpatient E&M: 13194 Subs Hosp L2 03/12/25 1496 Cosigner Signature (if applicable): CC: ~ Signed [facility] [id number] Hospital Discharge instructionsAdditional Instructions Follow-up with your [...] evaluated as diverticular bleeding can be oftentimes self-limited.[facility] Work Phone: 1(502) 850-266108-25-2025 Progress note Author Jaspal Prasad [facility] Note Date/Time March 11, 2025 12 :30pm [facility] Medical Records Department [address] [place] [address] Progress Note - Hospitalist 03/11/25 1225 MR#: [id number] Acct: [id number] Name: PACO WHITNEY Rep #:[id number] : 1935 89 From: Jaspal quevedo MD PCP: Dr. Clarice Murillo MD Status:AD M IN Location: [place] [address]- Subjective Subjective No issues overnight, awaiting possible [...] (Auto) 73.3 H, Lymph % (Auto)17.5 L, [place] % (Auto) 7.2, Eos % (Auto) 0.9, [...] Clarity Clear, Urine pH 7.0, Ur Specific [place] 1.010, Urine Protein 30 H, Urine Glucose [...] cystic lesions in the kidneys Reading Location[facility] Physical Exam Narrative General: Alert, Oriented x3, [...] DVT: SCDs Charges/Coding Visit Charges Inpatient E&M: 91193 Subs Hosp L2 03/11/25 1230 <Electronically signed by Jaspal Prasad MD> Cosigner Signature (if applicable): CC: ~ Signed [facility] Work Phone: 1(314) 201-109908-25-2025 Progress note [facility] Medical Records Department [address] [place] [address] Progress Note - Hospitalist 03/11/25 1225 MR#: [id number] Acct: [id number] Name: PACO WHITNEY Rep #:[id number] : 1935 89 From: Jaspal quevedo MD PCP: Dr. Clarice Murillo MD Status:AD M IN Location: [place] [address] Subjective Subjective No issues overnight, awaiting possible [...] (Auto) 73.3 H, Lymph % (Auto)17.5 L, [place] % (Auto) 7.2, Eos % (Auto) 0.9, [...] Clarity Clear, Urine pH 7.0, Ur Specific [place] 1.010, Urine Protein 30 H, Urine Glucose [...] cystic lesions in the kidneys Reading Location: [facility] Physical Exam Narrative General: Alert, Oriented x3, [...] DVT: SCDs Charges/Coding Visit Charges Inpatient E&M: 56961 Subs Hosp L2 03/11/25 1230 Cosigner Signature (if applicable): CC: ~ Signed [facility]08-25-2025 Discharge summary Author Arturo Naranjo [facility] Note Date/Time March 10, 2025 10 :50pm [facility] Medical Records Department [address] [place] [address] Emergency Department Summary 03/10/25 MR#: [id number] Acct: [id number] Name: PACO WHITNEY Rep #:[id number] : 1935 89 From: Arturo Naranjo MD PCP: Dr. Clarice Murillo MD Status:AD M IN Location: [place] [address] HPI HPI - GI History of Present [...] baby aspirin. No exacerbating or alleviating factors. [facility] Medical History PAD (peripheral artery [...] 73.3 H Lymph % (Auto) 17.5 L [place] % (Auto) 7.2 Eos % (Auto) 0.9 [...] Clarity Clear Urine pH 7.0 Ur Specific [place] 1.010 Urine Protein 30 H Urine Glucose [...] cystic lesions in the kidneys Reading Location: [facility] Management Discussion w/another healthcare provider: Hospitalist Discharge Plan Dx/Rx/DC Orders Clinical Impression: Lower GI bleed, History of gastrointestinal bleeding, Elevated serum creatinine, Rectal bleed Disposition Disposition: Acute Care Hospital [facility] Discharge Date/Time: 03/10/25 20:10 What to do if you have Problems For any increased pain, shortness of breath, bleeding, nausea or vomiting, chestpain, or any unexpected problems, contact your Primary Care Provider. Call [facility] ([phone]) or report to the closest Emergency Room. Call 911 if necessary. 03/10/252249 <Electronically signed by Arturo Naranjo MD> Cosigner Signature (if applicable): CC: Dr. Clarice Murillo MD ~ Signed [facility] Work Phone: 1(800) 410-174308-24-2025 Discharge summary [facility] Medical Records Department [address] [place] [address] Emergency Department Summary 03/10/25 MR#: [id number] Acct: [id number] Name: PACO WHITNEY Rep #:[id number] : 1935 89 From: Arturo Naranjo MD PCP: Dr. Clarice Murillo MD Status:AD M IN Location: [place] [id number]- [id number] HPI HPI - GI History of [...] baby aspirin. No exacerbating or alleviating factors. [facility] Medical History PAD (peripheral artery [...] 73.3 H Lymph % (Auto) 17.5 L [place] % (Auto) 7.2 Eos % (Auto) 0.9 [...] Clarity Clear Urine pH 7.0 Ur Specific [place] 1.010 Urine Protein 30 H Urine Glucose [...] cystic lesions in the kidneys Reading Location: [facility] Management Discussion w/another healthcare provider: Hospitalist Discharge Plan Dx/Rx/DC Orders Clinical Impression: Lower GI bleed, History of gastrointestinal bleeding, Elevated serum creatinine, Rectal bleed Disposition Disposition: Acute Care Hospital [facility] Discharge Date/Time: 03/10/25 20:10 What to do if you have Problems For any increased pain, shortness of breath, bleeding, nausea or vomiting, chestpain, or any unexpected problems, contact your Primary Care Provider. Call [facility] ([phone]) or report tothe closest Emergency Room. Call 911 if necessary. 03/10/25 2250 Cosigner Signature (if applicable): CC: Dr. Clarice Murillo MD ~ Signed [facility]08-24-2025 History and physical note Author Miller [facility] Note Date/Time March 10, 2025 8: 50pm [facility] Medical Records Department [address] [place] [address] H&P Exam - Hospitalist 03/10/251920 MR#: [id number] Acct: [id number] Name: WHITNEYPACO Josefina Rep #:[id number] : 1935 89 From: Miller garcia DO PCP: Dr. Clarice Murillo MD Status:AD M IN Location: [facility] BAL904- 1 HPI - General General Date of Admission: 03/10/25 Date of Service: 03/10/25 Chief Complaint: Lower GI bleed HPI Narrative PACO WHITNEY, is a 89 M who presented to [facility] ED on 03/10/2025 with lower [...] here this week and is now at [place], and he has been on his normal routine and frequently going back and forth from home to the hospital [facility]. He has also been eating out with [...] currently. Will be admitted for further management. [facility] Medical History PAD (peripheral artery disease) [...] (Auto) 73.3 H, Lymph % (Auto)17.5 L, [place] % (Auto) 7.2, Eos % (Auto) 0.9, [...] Clarity Clear, Urine pH 7.0, Ur Specific [place] 1.010, Urine Protein 30 H, Urine Glucose [...] cystic lesions in the kidneys Reading [facility] Assessment & Plan Assessment/Plan (1) Lower GI bleed: PLAN: Plan Patient is an 89-year-old male who presented to [facility] ED on03/10/2025 with lower GI [...] 55 minutes. Charges/Coding Visit Charges Inpatient E&M: 07715 Init Hosp L2 03/10/252049 <Electronically signed by Miller Vides DO> Cosigner Signature (if applicable): CC: Dr. Miller Vides DO; Dr. Clarice Murillo MD~ Signed [facility] Work Phone: 1(168) 481-577008-24-2025 History and physical note [facility] Medical Records Department [address] [place] [address] H&P Exam - Hospitalist 03/10/251920 MR#: [id number] Acct: [id number] Name: PACO WHITNEY Rep #:[id number] : 1935 89 From: Miller garcia DO PCP: Dr. Clarice Murillo MD Status:AD M IN Location: [facility] RMP525- 1 HPI - General General Date of Admission: 03/10/25 Date of Service: 03/10/25 Chief Complaint: Lower GI bleed HPI Narrative PACO WHITNEY, is a 89 M who presented to [facility] ED on 03/10/2025 with lower [...] here this week and is now at [place],and he has been on his normal routine and frequently going back and forth from home to the [facility]. He has also been eating out [...] currently. Will be admitted for further management. [facility] Medical History PAD (peripheral artery disease) [...] (Auto) 73.3 H, Lymph % (Auto)17.5 L, [place] % (Auto) 7.2, Eos % (Auto) 0.9, [...] Clarity Clear, Urine pH 7.0, Ur Specific [place] 1.010, Urine Protein 30 H, Urine Glucose [...] cystic lesions in the kidneys Reading [facility] Assessment & Plan Assessment/Plan (1) Lower GI bleed: PLAN: Plan Patient is an 89-year-old male who presented to [facility] ED on03/10/2025 with lower GI [...] 55 minutes. Charges/Coding Visit Charges Inpatient E&M: 88637 Init Hosp L2 03/10/252049 Cosigner Signature (if applicable): CC: Dr. Miller Vides DO; Dr. Clarice Murillo MD~ Signed [facility]08-24-2025 Radiology Diagnostic study note [facility] Imaging Services [address] [place] [address] Abdomen/Pelvis W IV Cont ONLY MR#: [id number] Acct: [id number] Name: PACO WHITNEY Rep #: [id number] : 1935 M 89 From: Pet er Peer DO PCP: Dr. Clarice Murillo MD Status: RE G ER Study:Abdomen/Pelvis W IV Cont ONLY Date of E xam: 03/10/25 Exam# [id number] Ordering Dr: Arturo Naranjo MD PROCEDURE: ABDOMEN/PELVIS [...] cystic lesions in the kidneys Reading [facility] CC: Dr. Arturo Naranjo MD; Dr. Clarice Murillo MD ~ 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: Signed [facility]08-08-2025 NoteHNO ID: [id number] Author: YNES SOUZA PA-C Service: ? Author Type: Physician Dictaphone Technician Type: Progress Notes Filed: 02/22/2025 13:42 Note Text: Ynes Souza PA-C Department of Orthopaedics Orthopaedics [address] [facility] [address] Dept: [phone] Dept February 22, 2025 CHIEF COMPLAINT: Pain [...] (M17.11) - Chronic right knee OA, likely gtjq-vk-gouf. - Ordered new X-rays of the right [...] these instructions. Informed Consent Consent Obtained: Verbal Beryl Protocol A moment to CARE was completed. [...] and visible. Medications requ (more content not included)...[facility] 02-22-2025 NoteHNO ID: [id number] Author: MARY WAGNER MA Service: ? Author Type: Cordwood Cutter Type: Progress Notes Filed: 02/22/2025 13:42 Note Text: AMB ROOMING INTAKE FLOWSHEET DATA Pain Pain Level: 2 (as high as 10) Pain Location: (bilateral shoulders) Description: Aching, Sharp, Dull Duration Amount of Time: (ongoing) Frequency: Continuous Intervention/Comfort measure: [facility]ication[facility]07-25-2025 Telephone encounter Note* Telephone Encounter - Korin Calixto MA - 02/08/2025 2:45 PM EDT Call to pt and notified him of results and recommendations below from Provider. Pt verbalized understanding. Korin Calixto MA [facility]07-25-2025 Miscellaneous Notes* Telephone Encounter - Korin [...] intervention. Sid Frank APRN.CNP documented in this encounterMer[facility]-2025 Telephone encounter Note * Telephone Encounter - Sid Frank APRN.CNP - 02/08/2025 9:12 AM EDT Please let the patient know that the xray of his shoulders show advanced arthritis present in both.Recommendation is to continue with his upcoming appointment with orthopedics to see if they can provide an intervention. Sid Frank APRN.CNP [facility]07-22-2025 History of Present illness Narrative* Alfonso [...] PATIENT PRESENTS WITH AN IMPLANTABLE OR ATTACHED RECOIL SPRING WINDER: No RADIOLOGY DEPARTMENT: General X-ray: Exam(s) Completed: Upper Extremity X- Ray(s): Shoulder, AP / TRUE AP / AXILLARY bilateral PERIPHERAL IV DATA: Not applicable SIGNED BY: MAHAD Santacruz) February 05, 2025 4:04 PM documented in this encounterMercy Health St. [facility]07-22-2025 NoteHNO ID: [id number] Author: ALFONSO PORTILLO RT(R) Service: ? Author Type: Line Painting Machine Operator Type: Progress Notes Filed: 02/05/2025 16:05 Note [...] PATIENT PRESENTS WITH AN IMPLANTABLE OR ATTACHED RECOIL SPRING WINDER: No RADIOLOGY DEPARTMENT: General X-ray: Exam(s) Completed: Upper Extremity X-Ray(s): Shoulder, AP / TRUE AP / AXILLARY bilateral PERIPHERAL IV DATA: Not applicable SIGNED BY: Alfonso Portillo, RT(R) February 05, 2025 4:04 [facility]07-22-2025 History of Present illness Narrative* Clarice Murillo MD - 02/05/2025 3:00 PM EDT Chief Complaint Patient presents with: 6 Month Exam HPI Paco Whitney is a 89 year old male who presents here today for 6 month follow up. Pt recently discharged from [facility] to SNF as pt is not able to care for pt any longer. 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 [...] W/COLLJ SPEC WHEN PFRMD 09/19/2011 Colonoscopy [facility] ENDOVASCULAR ANEURYSM REPAIR 01/2013 with bi-liac [...] Take 1 tablet by mouth once daily. 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 Luna, with a follow-up appointment scheduled for April 02. Continue current pulmonary management and attend scheduled follow-up with Dr. Luna. 7. Pedal edema (R60.0) Noted swelling in the lower extremities, particularly around the ankles, which reduces overnight. Monitor edema; consider compression stockings if swelling persists or worsens. Follow up in 6 months Recording using skyrockit software for draft documentation of the visit was discussed with the patient/authorized surgical sales representative; all questions welcomed and answered. Patient/authorized surgical sales representative agreed to proceed I agree with the Chief Complaint, ROS, and Past Histories independently gathered by the clinical customer support manager and the remaining scribed note accurately describes [...] PM. Marianne Escobar MA documented in this encounterMercy Health St[facility]07-22-2025 NoteHNO ID: [id number] Author: CLARICE MURILLO MD Service: ? Author Type: Physician Type: Progress Notes Filed: 02/05/2025 15:42 Note Text: Chief Complaint Patient presents with: 6 Month Exam HPI Paco Whitney is a 89 year old male who presents here today for 6 month follow up. Pt recently discharged from [facility] to [facility] as pt is not able to care for pt any longer. 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 [...] W/COLLJ SPEC WHEN PFRMD 09/19/2011 Colonoscopy [facility] ENDOVASCULAR ANEURYSM REPAIR 01/2013 with bi-liac [...] by mouth three breana (more content not included)...[facility]05-05-2025 Telephone encounter Note* Telephone Encounter - Sid Frank APRN.CNP - 11/19/2024 9:25 AM EDT The following approved medication requests have been transmitted electronically. Requested Prescriptions Pending Prescriptions Disp Refills ramipril (ALTACE) 10 mg capsule 90 capsule 3 Sig: Take 1 capsule by mouth once daily. Sid Frank APRN.CNP [facility]05-05-2025 Miscellaneous Notes* Telephone Encounter - Sid [...] 1 capsule by mouth once daily. Monet Satniago November 19, 2024 8:50 AM documented in this encounterMer[facility]05-[facility]-2025 Telephone encounter Note * Telephone Encounter [...] Monet Santiago November 19, 2024 8:[address] [facility]04-29-2025 Evaluation note* Diagnosis Onset Date Resolution Status Admit Date Swelling of joint of left wrist acut e November 13, 2024 1:38pm Elevated serum creatinine acute March 10, 2025 7:22pm Lower GI bleed acute February 7:22pm Rectal bleed acute March 10, 2025 7:22pm History of gastrointestinal bleeding chronic March 10 7:22pm [facility] Work Phone: 1(490) 920-221404-26-2025 Discharge summary Author Riky Li [facility] Note Date/Time November 10, 2024 9:4 7am [facility] Medical Records Department [address] [place] [address] Instructions for Home/Discharge Instructions 11/10/24 0940 MR#: [id number] Acct: [id number] Name: PACO WHITNEY Rep #:[id number] : 1935 89 From: Riky Evans PCP: [...] clinic in 3 days at [facility] on Tuesday, 13 November 2024, Discharge Orders/Prescriptions [...] (Follow-up in 3 days at [facility] in clinic) Disposition Disposition (needs filled in before D/C Order can be placed): Home, Self Care 11/10/24 0947<Electronically signed by Riky Li MD>Riky Li MD CC: Dr. Evelyn Doss, DO; Dr. Clarice Murillo MD ~ Signed [facility] Work Phone: 1(470) 232-555704-26-2025 Discharge summary Author Riky Li [facility] Note Date/Time November 10, 2024 10: 34am [facility] Medical Records Department [address] [place] [address] Discharge Summary 11/10/24 0947 MR#: [id number] Acct: [id number] Name: PACO WHITNEY Rep #:[id number] : 1935 89 From: Riky Evans PCP: Dr. Clarice Murillo MD Status:[facility] [place] Location: [place] [address] Providers Date of Admission: 11/08/24 Date of [...] % (Auto) 61.9, Lymph % (Auto) 24.1, [place] % (Auto) 10.6 H, Eos % (Auto) [...] clinic in 3 days at [facility] on Tuesday, 13 November 2024, Discharge Orders/Prescriptions [...] (Follow-up in 3 days at [facility] in clinic) Disposition Disposition (needs filled in before D/C Order can be placed): Home, Self Care Charges/Coding Visit Charges Inpatient E&M: 77362 Disch Hosp >30min 11/10/24 1034 <Electronically signed by Riky Li MD> Cosigner Signature (if applicable): CC: Dr. Clarice Murillo MD; Dr. Riky Li MD; Dr. Dennis Rocha MD~ Signed [facility] Work Phone: 1(787) 298-137704-26-2025 Progress note Author Dennis Rocha [facility] Note Date/Time November 10, 2024 9:4 1am [facility] Medical Records Department [address] [place] [address] Progress Note - Surgery 11/10/2438 MR#: [id number] Acct: [id number] Name: PACO WHITNEY Rep #:[id number] : 1935 89 From: Dennis Rocha MD PCP: Dr. Clarice Murillo MD Status:AD M [place] Location: [place] FI513-6 Subjective Subjective Doing well. Reports that pain [...] % (Auto) 61.9, Lymph % (Auto) 24.1, [place] % (Auto) 10.6 H, Eos % (Auto) [...] me in 3 days at [facility] in clinic. Charges/Coding Visit Charges Inpatient E&M: 51130 Subs Hosp L1 11/10/24 0940 <Electronically signed by Dennis Rocha MD> Cosigner Signature (if applicable): CC: ~ Signed ADDENDUM by Dr. Dennis Rocha MD on 11/10/24 at 0941 Addendum Afebrile with stable vital signs Normal white blood cell count 11/10/24 0941<Electronically signed by Dennis Rocha MD> Cosigner Signature (if applicable): cc: ~* Signed [facility] Work Phone: 1(363) 876-342004-26-2025 Discharge summary [facility] Medical Records Department [address] [place] [address] Discharge Summary 11/10/24 0947 MR#: [id number] Acct: [id number] Name: PACO WHITNEY Rep #:[id number] : 1935 89 From: Riky Evans PCP: Dr. Clarice Murillo MD Status:AD M IN Location: [facility] PA349-8 Providers Date of Admission: 11/08/24 Date of [...] mcg/actuation aerosol inhaler 2 puff inhalation BID Uooxchhvb81/12/18 fenofibrate 160 mg tablet 160 mg PO [...] % (Auto) 61.9, Lymph % (Auto) 24.1, [place] % (Auto) 10.6 H, Eos % (Auto) [...] clinic in 3 days at [facility] on Tuesday, 13 November 2024, Discharge Orders/Prescriptions [...] (Follow-up in 3 days at [facility] in clinic) Disposition Disposition (needs filled in before D/C Order can be placed): Home, Self Care Charges/Coding Visit Charges Inpatient E&M: 26221 Disch Hosp >30min 11/10/24 1034 Cosigner Signature (if applicable): CC: Dr. Clarice Murillo MD; Dr. Riky Li MD; Dr. Dennis Rocha MD~ Signed [facility]04-26-2025 Discharge summary [facility] Medical Records Department [address] [place] [address] Instructions for Home/Discharge Instructions 11/10/24 0940 MR#: [id number] Acct: [id number] Name: PACO WHITNEY Rep #:[id number] : 1935 89 From: Riky Evans PCP: [...] clinic in 3 days at [facility] on Tuesday, 13 November 2024, Discharge Orders/Prescriptions [...] (Follow-up in 3 days at [facility] in clinic) Disposition Disposition (needs filled in before D/C Order can be placed): Home, Self Care 11/10/24 0947Riky Li MD CC: Dr. Evelyn Doss DO; Dr. Clarice Murillo MD ~ Signed [facility]04-26-2025 [facility] Medical Records Department [address] [place] [address] Discharge Summary 11/10/24 0947 MR#: [id number] Acct: [id number] Name: PACO WHITNEY Rep #: [id number] : 1935 89 From: Riky Li MD PCP: Dr. Clarice Murillo MD Status:ADM IN [facility] Prov[facility] Date of Admission: 11/08/24 Date of [...] induced arthritis: [facility] Patient had joint tap, no crystals [...] in bilateral lung base (more content not included)...[facility]04-26-2025 Progress note [facility] Medical Records Department [address] [place] [address] Progress Note - Surgery 11/10/24 0938 MR#: [id number] Acct: [id number] Name: PACO WHITNEY Rep #:[id number] : 1935 89 From: Dennis Rocha MD PCP: Dr. Clarice Murillo MD Status:AD M IN Location: [facility] PE088-9 Subjective Subjective Doing well. Reports that pain [...] % (Auto) 61.9, Lymph % (Auto) 24.1, [place] % (Auto) 10.6 H, Eos % (Auto) [...] me in 3 days at [facility] in clinic. Charges/Coding Visit Charges Inpatient E&M: 72615 Subs Hosp L1 11/10/24 0940 Cosigner Signature (if applicable): CC: ~ Signed ADDENDUM by Dr. Dennis Rocha MD on 11/10/24 at 0941 Addendum Afebrile with stable vital signs Normal white blood cell count 11/10/24 0941 Cosigner Signature (if applicable): cc: ~* Signed [facility]04-25-2025 Progress note Author Riky Li [facility] Note Date/Time November 09, 2024 3:4 5pm [facility] Medical Records Department [address] [place] [address] Progress Note - Hospitalist 11/09/2449 MR#: [id number] Acct: [id number] Name: PACO WHITNEY Rep #:[id number] : 1935 89 From: Riky Evans PCP: Dr. Clarice Murillo MD Status:AD M IN Location: [facility] YY105-9 Reason for Visit Reason for Visit: Diagnoses [...] % (Auto) 68.3, Lymph % (Auto) 19.5, [place]% (Auto) 9.4, Eos % (Auto) 1.8, Baso [...] % (Auto) 66.4, Lymph % (Auto) 20.8, [place] % (Auto) 9.7, Eos % (Auto) 2.2, [...] tissue swelling about the wrist. [facility] 11/08/24 19:37 IMPRESSION: Negative for acute displaced fracture or dislocation. 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 Severe diffuse soft tissue swelling about the wrist. No cortical destruction. Osteopenia. Reading Location: [facility] Physical Exam Narrative Seen and examined [...] induced arthritis: [facility]. Patient had joint tap, no crystals [...] plus SCD's. Charges/Coding Visit Charges Inpatient E&M: 73213 Subs Hosp L2 11/09/24 8929 <Electronically signed by Riky Li MD> Cosigner Signature (if applicable): CC: ~ Signed [facility] Work Phone: 1(256) 962-558504-25-2025 Progress note [facility] Medical Records Department [address] [place] [address] Progress Note - Hospitalist 11/09/24 0949 MR#: [id number] Acct: [id number] Name: PACO WHITNEY Rep #:[id number] : 1935 89 From: Riky Evans PCP: Dr. Clarice Murillo MD Status:AD M IN Location: [place] [address]884-1 Reason for Visit Reason for Visit: Diagnoses [...] % (Auto) 68.3, Lymph % (Auto) 19.5, [place]% (Auto) 9.4, Eos % (Auto) 1.8, Baso [...] WBCs 1.409, Synovial Neutrophils 46 H, Synovial Mxfkpqiwrvz49, Synovial Monocytes 14, Synovial Polynuclear % 64.6, [...] % (Auto) 66.4, Lymph % (Auto) 20.8, [place] % (Auto) 9.7, Eos % (Auto) 2.2, [...] tissue swelling about the wrist. Reading Location: [facility] Wrist X-Ray 11/08/24 19:37 IMPRESSION: Negative for acute displaced fracture or dislocation. 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 Severe diffuse soft tissue swelling about the wrist. No cortical destruction. Osteopenia. Reading Location: [facility] Physical Exam Narrative Seen and examined [...] plus SCD's. Charges/Coding Visit Charges Inpatient E&M: 66556 Subs Hosp L2 11/09/24 5893 Cosigner Signature (if applicable): CC: ~ Signed [facility]04-25-2025 Progress note Author Dennis Rocha [facility] Note Date/Time November 09, 2024 10: 18am [facility] Medical Records Department [facility] [place] [address] Progress Note - Surgery 11/09/24 1009 MR#: [id number] Acct: [id number] Name: PACO WHITNEY Rep #:[id number] : 1935 89 From: Dennis Rocha MD PCP: Dr. Clarice Murillo MD Status:AD M IN Location: [place] [address] Subjective Subjective Patient doing well overall. Less [...] % (Auto) 68.3, Lymph % (Auto) 19.5, [place]% (Auto) 9.4, Eos % (Auto) 1.8, Baso [...] % (Auto) 66.4, Lymph % (Auto) 20.8, [place] % (Auto) 9.7, Eos % (Auto) 2.2, [...] tissue swelling about the wrist. [facility] 11/08/24 19:37 IMPRESSION: Negative for acute displaced fracture or dislocation. 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 Severe diffuse soft tissue swelling about the wrist. No cortical destruction. Osteopenia. [facility] Physical Exam Narrative Left Upper Extremity Inspection: [...] Multi Select Codes Visit Charges Visit Charges: 45412 Subs Hosp L1 11/09/24 1018 <Electronically signed by Dennis Rocha MD> Cosigner Signature (if applicable): CC: ~ Signed [facility] Work Phone: 1(868) 311-956404-25-2025 Progress note [facility] Medical Records Department [address] [place] [address] Progress Note - Surgery 11/09/24 1009 MR#: [id number] Acct: [id number] Name: PACO WHITNEY Rep #:[id number] : 1935 89 From: Dennis Rocha MD PCP: Dr. Clarice Murillo MD Status:AD M IN Location: [facility] AP957-0 Subjective Subjective Patient doing well overall. Less [...] % (Auto) 68.3, Lymph % (Auto) 19.5, [place]% (Auto) 9.4, Eos % (Auto) 1.8, Baso [...] WBCs 1.409, Synovial Neutrophils 46 H, Synovial Colteemryuy96, Synovial Monocytes 14, Synovial Polynuclear % 64.6, [...] % (Auto) 66.4, Lymph % (Auto) 20.8, [place] % (Auto) 9.7, Eos % (Auto) 2.2, [...] tissue swelling about the wrist. Reading Location: [facility] Wrist X-Ray 11/08/24 19:37 IMPRESSION: Negative for acute displaced fracture or dislocation. 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 Severe diffuse soft tissue swelling about the wrist. No cortical destruction. Osteopenia. Reading Location: [facility] Physical Exam Narrative Left Upper Extremity [...] Multi Select Codes Visit Charges Visit Charges: 46942 Subs Hosp L1 11/09/24 1018 Cosigner Signature (if applicable): CC: ~ Signed [facility]04-25-2025 History and physical note Author Evelyn Mccall [facility] Note Date/Time November 09, 2024 6:2 3am [facility] Medical Records Department [address] [place] [address] H&P Exam - Hospitalist 11/08/242000 MR#: [id number] Acct: [id number] Name: PACO WHITNEY Rep #:[id number] : 1935 89 From: Evelyn Shah DO PCP: Dr. Clarice Murillo MD Status:AD M [place] Location: [place]-2 HPI - General General Date of Admission: [...] his first MTP joint who presents to [facility] ER complaining of Left wrist redness, swelling, pain and fever. Mr. Whiteny reports his symptoms began approximately 6 hours [...] is expected to extend beyond 2 midnights. [facility] Medical History PAD (peripheral artery disease) [...] % (Auto) 68.3, Lymph % (Auto) 19.5, [place]% (Auto) 9.4, Eos % (Auto) 1.8, Baso [...] is greatly appreciated. Acetaminophen as needed for idgt-zi-kckvjgxj (level 1-5/10) pain or fever. Give morphine [...] 55 minutes. Charges/Coding Visit Charges Inpatient E&M: 08528 Init Hosp L2 11/09/24 0623 <Electronically signed by Evelyn Doss DO> Cosigner Signature (if applicable): CC: Dr. Evelyn Doss DO; Dr. Clarice Murillo MD~ Signed [facility] Work Phone: 1(568) 215-890604-25-2025 History and physical note [facility] Medical Records Department [address] [place] [address] H&P Exam - Hospitalist 11/08/242000 MR#: [id number] Acct: [id number] Name: PACO WHITNEY Rep #:[id number] : 1935 89 From: Evelyn Shah DO PCP: Dr. Clraice Murillo MD Status:AD M IN Location: [facility] OZ859-7 [facility] - General General Date of [...] his first MTP joint who presents to [facility] ER complaining of Left wrist [...] is expected to extend beyond 2 midnights. [facility] Medical History PAD (peripheral artery disease) [...] % (Auto) 68.3, Lymph % (Auto) 19.5, [place]% (Auto) 9.4, Eos % (Auto) 1.8, Baso [...] is greatly appreciated. Acetaminophen as needed for jvee-gt-piczclqt (level 1-5/10) pain or fever. Give morphine [...] 55 minutes. Charges/Coding Visit Charges Inpatient E&M: 85484 Init Hosp L2 11/09/24 0623 Cosigner Signature (if applicable): CC: Dr. Evelyn Doss DO; Dr. Clarice Murillo MD~ Signed [facility]04-25-2025 Discharge summary Author Myriamus Sibleyjuanjo [facility] Note Date/Time November 08, 2024 10: 09pm [facility] Medical Records Department [address] [place] [address] Emergency Department Summary 11/08/24 MR#: [id number] Acct: [id number] Name: PACO WHITNEY Rep #:[id number] : 1935 89 From: Eduardo Hartley DO PCP: Dr. Clarice Murillo MD Status:AD M IN Location: [place] [address]884-1 HPI History of Present Illness Chief Complaint: [...] wrist pain Disposition Disposition: Acute Care Hospital [facility] What to do if you have Problems For any increased pain, shortness of breath, bleeding, nausea or vomiting, chestpain, or any unexpected problems, contact your Primary Care Provider. Call [facility] ([phone]) or report to the closest Emergency Room. Call 911 if necessary. 11/08/24 2595 <Electronically signed by Eduardo Hartley DO> Cosigner Signature (if applicable): CC: Dr. Clarice Murillo MD ~ Signed [facility] Work Phone: 1(309) 840-362504-24-2025 Evaluation note* Diagnosis Onset Date Resolution Status Admit Date Cellulitis acute November 08 8:32pm Dehydration acute November 08, 025 8:32pm Gout acute November 08 8:32pm History of hypertension acute A pril 2024 8:32pm Left wrist pain acute October h2024 8:32pm Overweight (BMI 25.0-29.9) acute November 08, 2024 8:32pm Swelling of joint of left wrist acut e November 08, 2024 8:32pm [facility] Work Phone: 1(575) 687-724704-24-2025 Evaluation note* Diagnosis Onset Date Resolution Status [...] of gastrointestinal bleeding chronic March 10 7:22pm [facility] Work Phone: 1(849) 406-886204-24-2025 Discharge summary [facility] Medical Records Department [address] [place] [address] Emergency Department Summary 11/08/24 MR#: [id number] Acct: [id number] Name: PACO WHITNEY Rep #:[id number] : 1935 89 From: Eduardo Hartley DO PCP: Dr. Clarice Murillo MD Status:AD M IN Location: [place] [address] HPI History of Present Illness Chief Complaint: [...] wrist pain Disposition Disposition: Acute Care Hospital [facility] What to do if you have Problems For any increased pain, shortness of breath, bleeding, nausea or vomiting, chestpain, or any unexpected problems, contact your Primary Care Provider. Call [facility] ([phone]) or report tothe closest Emergency Room. Call 911 if necessary. 11/08/242208 Cosigner Signature (if applicable): CC: Dr. Clarice Murillo MD ~ Signed [facility]04-24-2025 Consult note Author Dennis Rocha [facility] Note Date/Time November 08, 2024 7:4 1pm [facility] Medical Records Department [address] [place] [address] Consultation - Surgical 11/08/24 1853 MR#: [id number] Acct: [id number] Name: PACO WHITNEY Josefina Rep #:[id number] : 1935 89 From: Dennis Rocha MD [...] wnl (10). 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 Sensory: Intact to light touch on the radial and ulnar borders. Vascular: Finger tips are warm and well perfused with <2 second capillary refill. Const alert and oriented x3 Lab / Micro Data 11/08/24 18:28 11/08/24 18:28 Charges/Coding Multi Select Codes Visit Charges Office Visit/Consults: 95094 OV L5 New 60min (This visit took greater than 60 minutes (history, physical exam, review of imaging). Procedure performed as well) 11/08/241940 <Electronically signed by Dennis Rocha MD> Cosigner Signature (if applicable): CC: Dr. Clarice Murillo MD~ Signed [facility] Work Phone: 1(284) 641-923104-24-2025 Radiology Diagnostic study note [facility] Imaging Services [address] [place], [place] [address] Hand Min 3 Views MR#: [id number] Acct: [id number] Name: PACO WHITNEY Rep #: [id number] : 1935 M 89 From: Davie Pino DO PCP: Dr. Clarice Murillo MD Status: RE G ER Study:Hand Min 3 Views Date of Exam: Exam# [id number] Ordering Dr: Lauryn Rocha MD PROCEDURE: HAND [...] tissue swelling about the wrist. Reading Location: [facility] CC: Dr. Clarice Murillo MD; Dr. Dennis Rocha MD ~ 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: Signed [facility]04-24-2025 Radiology Diagnostic study note [facility] Imaging Services [address] [place] [address] Wrist min 3 Views MR#: [id number] Acct: [id number] Name: PACO WHITNEY Josefina Rep #: [id number] : 1935 M 89 From: Davie Pino DO PCP: Dr. Clarice Murillo MD Status: RE G ER Study:Wrist min 3 Views Date of Exam: Exam# [id number] Ordering Dr: Mary Kay Hartley DO EXAM: Left wrist radiographs CLINICAL HISTORY: Pain, swelling COMPARISON: None TECHNIQUE: Three views of the left wrist FINDINGS: See impression RAD/Wrist min 3 Views IMPRESSION: Negative for acute displaced fracture or dislocation. 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 Severe diffuse soft tissue swelling about the wrist. No cortical destruction. Osteopenia. [facility] CC: Dr. Clarice Murillo MD; Dr. Eduardo Hartley DO ~ 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: Signed [facility]04-24-2025 Consult note [facility] Medical Records Department [address] [place] [address] Consultation - Surgical 11/08/24 1853 MR#: [id number] Acct: [id number] Name: PACO WHITNEY Josefina Rep #:[id number] : 1935 89 From: Dennis Rocha MD [...] wnl (10). 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 Sensory: Intact to light touch on the radial and ulnar borders. Vascular: Finger tips are warm and well perfused with <2 second capillary refill. Const alert and oriented x3 Lab / Micro Data 11/08/24 18:28 11/08/24 18:28 Charges/Coding Multi Select Codes Visit Charges Office Visit/Consults: 65802 OV L5 New 60min (This visit took greater than 60 minutes (history, physical exam, review of imaging). Procedure performed as well) 11/08/241940 Cosigner Signature (if applicable): CC: Dr. Clarice Murillo MD~ Signed [facility]04-24-2025 NoteHNO ID: [id number] Author: VASYL WELSH MD Service: ? Author Type: Physician Type: Progress Notes Filed: 11/08/2024 18:31 Note Text: [facility] Subjective Paco Whitney is a [...] available. He will take himself to the [facility]. Vasyl Welsh MD History and Record [...] will be seeking further care outside the [facility] hospital system. Disposition The patient was other (comment) (Self transport to ER). [facility] Instructions* Patient Instructions* Jyothi Mosley APRN.RD SCIENTIST - 11/03/2024 8:58 AM EDT Use your [...] needed. documented in this [facility]2025 NoteHNO ID: [id number] Author: JYOTHI MOSLEY APRN.SARAI Service: ? Author [...] history is provided by the patient. No survey superintendent was used. Review of Systems Constitutional: Negative [...] inhaler or nebulizer prn Follow up with body mechanic apprentice as needed Diagnosis and treatment plan were discussed and questions were answered to the patient's satisfaction. Pt acknowledged understanding of concepts and follow up plan. Specific signs and symptoms that would indicate the need for higher level of care were discussed in detail warranting prompt ER evaluation. Jyothi Mosley APRN.[facility]04-19-2025 History of Present illness Narrative* Jyothi Mosley APRN.RD SCIENTIST - 11/03/2024 8:30 AM EDT [facility] [...] history is provided by the patient. No survey superintendent was used. Review of Systems Constitutional: Negative [...] inhaler or nebulizer prn Follow up with body mechanic apprentice as needed Diagnosis and treatment plan were discussed and questions were answered to the patient's satisfaction. Pt acknowledged understanding of concepts and follow up plan. Specific signs and symptoms that would indicate the need for higher level of care were discussed indetail warranting prompt ER evaluation. Jyothi Mosley APRN.RD SCIENTIST documented in this encounterMer[facility]04-17-2025 Telephone encounter Note * Telephone Encounter [...] is . I confirmed [facility] in [place] as pharmacy. He would like a call once it has been sent in so he can go burr picker. [phone]. Requested Prescriptions Pending Prescriptions Disp Refills SYMBICORT 160-4.5 mcg/actuation inhaler 11 g 0 Sig: Inhale 2 puffs as instructed two times a day. Mary Wagner MA November 01, 2024 9:[address] [facility]04-17-2025 Miscellaneous Notes* Telephone Encounter - Mary [...] is . I confirmed [facility] in [place] as pharmacy. He would like a call once it has been sent in so he can go burr picker. [phone]. Requested Prescriptions Pending Prescriptions Disp Refills SYMBICORT 160-4.5 mcg/actuation inhaler 11 g 0 Sig: Inhale 2 puffs as instructed two times a day. Mary Wagner MA November 01, 2024 9:36 AM documented in this encounterMer[facility]03-10-2025 History of Present illness Narrative* Francia Luna MD - 09/24/2024 10:00 AM EDT Images from the original note were not included. . [facility] Note Patient name: Paco Whitney PCP: Clarice [...] Take 1 capsule by mouth once daily. xmujpynh-wswbviioh-ggcvchedoywakq (CORTISPORIN) 3.5-10,000-1 mg/mL-unit/mL-% otic suspension Use 4 [...] of smoking cessation Francia Luna MD [facility] documented in this encounterMer[facility]03-10-2025 NoteHNO ID: [id number] Author: FRANCIA LUNA MD Service: ? Author Type: Physician Type: Progress Notes Filed: 09/24/2024 19:37 Note Text: . [facility] Note Patient name: Paco Whitney PCP: Clarice [...] Take 1 capsule by mouth once daily. padtpiiu-fpgnpdmjm-agzyvtprqmrqxp (CORTISPORIN) 3.5-10,000-1 mg/mL-unit/mL-% otic suspension Use 4 [...] will continue abstinence f (more content not included)...[facility]02-21-2025 Telephone encounter Note* Telephone Encounter - [...] BEDTIME Monet Dahl RN [facility]02-21-2025 Miscellaneous Notes* Telephone Encounter - Monet [...] BEDTIME Monet Dahl RN documented in this encounterMer[facility]01-15-2025 Instructions* Patient Instructions* Karla Campuzano APRN.CNP - 08/01/2024 3:03 PM EST Get repeat fasting labs completed in 6 months Continue to take all medication as prescribed Recommend follow up with Orthopedics to discuss shoulder pain Continue to eat a well balanced diet and stay active. Follow up in 6 months or sooner as needed. documented in this encounterMer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 czpcywzu-dlshmgdkg-wcvzwlyxzupkkv (CORTISPORIN) 3.5-10,000-1 mg/mL-unit/mL-% otic suspension Use 4 [...] discussed and patient voices understanding. Karla Campuzano APRN.RD SCIENTIST This note was partially generated using Dragon voice recognition system. Note was reviewed for accuracy. There may be minor misspellings or grammar miscues with [employer] voice recognition. documented in this encounterMer[facility] St[facility]01-15-2025 NoteHNO ID: [id number] Author: KARLA CAMPUZANO APRN.CNP Service: ? 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 wmuikkyp-xiovsbvhs-mokwnwrtgmfroh (CORTISPORIN) 3.5-10,000-1 mg/mL-unit/mL-% otic suspension Use 4 [...] Cancer Brother of jerrell (more content not included)...[facility]12-05-2024 NoteHNO ID: [id number] Author: ADRIEL VIDES RN Service: ? Author Type: Registered Nurse Type: Progress Notes Filed: 06/21/2024 15:08 Note Text: [facility] Telephonic Outreach Provider Action/FYI Contacted for: Routine Telephonic Outreach Contact made with patient: Yes Patient identified by name and date of . Discussed care with patient Are you experiencing any new or worsening symptoms you need to talk about today? No Based on data abstractor, the following disposition is advised: No symptoms or symptoms present, not severe. Routed to: No Action Needed GEOFF Education Provided this Outreach: No No concerns Cares for - She has appointment tomorrow to check B/P Adriel Vides RN June 21, 2024 3:07 [facility]12-05-2024 History of Present illness Narrative* Adriel Vides RN - 06/21/2024 3:02 PM EST [facility] Telephonic Outreach Provider Action/FYI Contacted for: Routine Telephonic Outreach Contact made with patient: Yes Patient identified by name and date of . Discussed care with patient Are you experiencing any new or worsening symptoms you need to talk about today? No Based on data abstractor, the following disposition is advised: No symptoms or symptoms present, not severe. Routed to: No Action Needed GEOFF Education Provided this Outreach: No No concerns Cares for - She has appointment tomorrow to check B/P Adriel Vides RN June 21, 2024 3:07 PM documented in this encounterMer[facility]12-05-2024 NotePatient Outreach ([facility]) PACO WHITNEY ([id number]) 1935 M Date Time Provider Department 06/21/24 [facility] your visit today, we recorded the following information about you: Adriel Vides RN 06/21/2024 3:08 PM Signed [facility] Telephonic Outreach Provider Action/FYI Contacted for: Routine Telephonic Outreach Contact made with patient: Yes Patient identified by name and date of . Discussed care with patient Are you experiencing any new or worsening symptoms you need to talk about today? No Based on data abstractor, the following disposition is advised: No symptoms [...] empty stomach, 1/2 hr before meal. - zbcmahey-qlctyiclh-foncnzxqagzxbc (CORTISPORIN) 3.5-10,000-1 mg/mL-unit/mL-% otic suspension Use 4 [...] 03/08/2023 Encounter Status:Closed by ADRIEL VIDES on 06/21/24[facility] 05-24-2024 NoteHNO ID: [id number] Author: ADRIEL VIDES RN Service: ? Author Type: Registered Nurse Type: Progress Notes Filed: 05/24/2024 14:33 Note Text: [facility] Telephonic Outreach Provider Action/FYI Contacted for: Routine Telephonic Outreach Contact made with patient: Yes Patient identified by name and date of . Discussed care with patient Are you experiencing any new or worsening symptoms you need to talk about today? No Based on data abstractor, the following disposition is advised: No symptoms or symptoms present, not severe. Routed to: No Action Needed GEOFF Education Provided this Outreach: No Doing well Chronic conditions at baseline Sabiha evans No concerns today Adriel Vides RN May 24, 2024 2:32 [facility]11-07-2024 History of Present illness Narrative* Adriel Vides RN - 05/24/2024 2:21 PM EST [facility] Telephonic Outreach Provider Action/FYI Contacted for: Routine Telephonic Outreach Contact made with patient: Yes Patient identified by name and date of . Discussed care with patient Are you experiencing any new or worsening symptoms you need to talk about today? No Based on data abstractor, the following disposition is advised: No symptoms or symptoms present, not severe. Routed to: No Action Needed GEOFF Education Provided this Outreach: No Doing well Chronic conditions at baseline Sabiha evans No concerns today Adriel Vides RN May 24, 2024 2:32 PM documented in this encounterMer[facility]11-07-2024 NotePatient Outreach ([facility]) PACO WHITNEY ([id number]) 1935 M Date Time Provider Department 05/24/24 ADRIEL VIDES [facility] During your visit today, we recorded the following information about you: Adriel Vides RN 05/24/2024 2:33 PM Signed [facility] Telephonic Outreach Provider Action/FYI Contacted for: Routine Telephonic Outreach Contact made with patient: Yes Patient identified by name and date of . Discussed care with patient Are you experiencing any new or worsening symptoms you need to talk about today? No Based on data abstractor, the following disposition is advised: No symptoms [...] empty stomach, 1/2 hr before meal. - ymeyvjuj-jddcovhsw-gqbioemswqogsk (CORTISPORIN) 3.5-10,000-1 mg/mL-unit/mL-% otic suspension Use 4 [...] 03/08/2023 Encounter Status:Closed by ADRIEL VIDES on 05/24/24[facility] 05-04-[facility] Telephone encounter Note* Telephone Encounter - Clarice Murillo MD - 05/04/2024 4:49 PM EDT OK to refill as ordered Clarice Murillo MD [facility]10-18-2024 Miscellaneous Notes* Telephone Encounter - Clarice [...] PM documented in this encounterMer[facility] Telephone encounter Note * Telephone Encounter [...] 04, 2024 3:[address] [facility]10-10-2024 History of Present illness Narrative* Adriel Vides RN - 04/26/2024 11:23 AM EDT [facility] Telephonic Outreach Provider Action/FYI Contacted for: Routine Telephonic Outreach Contact made with patient: Yes Patient identified by name and date of . Discussed care with patient Are you experiencing any new or worsening symptoms you need to talk about today? No Based on data abstractor, the following disposition is advised: No symptoms [...] AM documented in this encounterMer[facility]10-09-2024 History of Present illness Narrative* Adriel Vides RN - 04/25/2024 3:18 PM EDT [facility] Telephonic Outreach Provider Action/FYI Contacted for: Routine Telephonic Outreach Contact made with patient: No, left message. Adriel Vides RN April 25, 2024 3:27 PM documented in this encounterMer[facility]09-09-2024 History of Present illness Narrative* Adriel Vides RN - 03/26/2024 12:21 PM EDT [facility] Telephonic Outreach Provider Action/FYI Contacted for: Routine Telephonic Outreach Contact made with patient: Yes Patient identified by name and date of . Discussed care with patient Are you experiencing any new or worsening symptoms you need to talk about today? No Based on data abstractor, the following disposition is advised: No symptoms [...] PM documented in this encounterMer[facility]09-04-2024 Instructions* Patient Instructions* Karla Campuzano APRN.CNP - 03/21/2024 2:39 PM EDT Continue to take all medication as prescribed. Flu vaccine given Keep scheduled appointments with specialists Follow up in 3 months, get repeat labs in early July documented in this encounterMer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 fptaicuj-xlnvzensx-xtdbaghjldyslz (CORTISPORIN) 3.5-10,000-1 mg/mL-unit/mL-% otic suspension Use 4 [...] current medication. 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 6. Neuropathy - ICD9: 355.9, ICD10: G62.9 [...] APRN.SARAI This note was partially generated using [employer] voice recognition system. Note was reviewed for accuracy. There may be minor misspellings or grammar miscues with [employer] voice recognition. documented in this encounterMer[facility]08-28-2024 Telephone encounter Note * Telephone Encounter - Prtety Siegel LPN - 03/14/2024 2:24 PM EDT Patient notified of results, verbalizes understanding of instructions. Pretty Siegel LPN [facility]08-28-2024 Miscellaneous Notes* Telephone Encounter - Pretty [...] you. Karla Campuzano APRN.CNP documented in this encounterMercy Health St. [facility]08-28-2024 Telephone encounter Note * Telephone Encounter [...] has any questions. Thank you. Karla Campuzano APRN.RD SCIENTIST [facility]08-09-2024 History of Present illness Narrative* Adriel Vides RN - 02/24/2024 2:34 PM EDT [facility] Telephonic Outreach Provider Action/FYI Contacted for: Routine Telephonic Outreach Contact made with patient: Yes Patient identified by name and date of . Discussed care with patient Are you experiencing any new or worsening symptoms you need to talk about today? No Based on data abstractor, the following disposition is advised: No symptoms or symptoms present, not severe. 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 Listened with HEART Adriel Vides RN February 24, 2024 2:47 PM documented in this encounterMer[facility]08-02-2024 Telephone encounter Note * Telephone Encounter - Clarice uMrillo MD - 02/17/2024 3:32 PM EDT Done and given to pt in office Clarice Murillo MD [facility]08-02-2024 Miscellaneous Notes* Telephone Encounter - Clarice Murillo MD - 02/17/2024 3:32 PM EDT Done and given to pt in office Clarice Murillo MD * Telephone Encounter - Korin Calixto MA - 02/17/2024 2:13 PM EDT Requesting renewal of handicap placard. In office with today for OV. Printed and on your desk to sign. Korin Calixto MA documented in this encounterMer[facility]08-02-2024 Telephone encounter Note * Telephone Encounter - Korin Calixto MA - 02/17/2024 2:13 PM EDT Requesting renewal of handicap placard. In office with today for OV. Printed and on your desk to sign. Korin Calixto MA [facility]07-11-2024 History of Present illness Narrative* Adriel [...] to talk about today? No Based on data abstractor, the following disposition is advised: No symptoms or symptoms present, not severe. Routed to: No Action Needed GEOFF Education Provided this Outreach: Isis Vides RN January 26, 2024 2:50 PM documented in this encounterMer[facility]. [facility]07-10-2024 Telephone encounter Note * Telephone Encounter - Karla Campuzano APRN.CNP - 01/25/2024 7:00 PM EDT The following approved medication requests have been transmitted electronically. Requested Prescriptions Signed Prescriptions Disp Refills gabapentin (NEURONTIN) 600 mg tablet 90 tablet 5 Sig: Take 1 tablet by mouth three times a day for 180 days. Authorizing Provider: KARLA CAMPUZANO APRN.CNP [facility]07-10-2024 Miscellaneous Notes* Telephone Encounter - Karla [...] RN documented in this encounterMercy Health St. [facility]07-10-2024 Telephone encounter Note * Telephone Encounter - Whit Rodriguez RN - 01/25/2024 4:11 PM EDT Patient calls and states that provider had increased patient's gabapentin to 600 mg TID from 300 mgTID. Patient states that this has been very helpful with his neuropathy. Patient will need a new prescription sent for this to [facility]. Whit Rodriguez RN [facility]07-01-2024 Instructions* Patient Instructions* Karla Campuzano APRN.CNP [...] months. documented in this encounterMer[facility] St. 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 vdwqcigo-cctdygzdc-bctintitlyjyua (CORTISPORIN) 3.5-10,000-1 mg/mL-unit/mL-% otic suspension Use 4 [...] discussed and patient voices understanding. Karla Campuzano APRN.RD SCIENTIST This note was partially generated using [employer] voice recognition system. Note was reviewed for accuracy. There may be minor misspellings or grammar miscues with [employer] voice recognition. documented in this encounterMercy [facility] St. [facility]06-18-2024 History of Present illness Narrative* Francia Luna MD - 01/03/2024 1:39 PM EDT Images from the original note were not included. . [facility] Note Patient name: Paco Whitney PCP: Clarice Murillo MD CC: follow-up CB HPI: Paco Whitney 88 year old male former 60-olgi-inas smoker quitting in 1990 with PMH significant [...] Take 1 capsule by mouth once daily. gwqmwtaa-gtqeoqagh-iaxifvmlwwetrc (CORTISPORIN) 3.5-10,000-1 mg/mL-unit/mL-% otic suspension Use 4 [...] DX W/COLLJ SPEC WHEN [facility] 01/2013 with bi-liac [...] to age and duration of smoking cessation rFancia Luna MD [facility] * Francia Luna MD - 01/03/2024 11:00 AM EDT Images from the original note were not included. . [facility] Note Patient name: Paco Whitney PCP: Clarice Murillo MD CC: follow-up CB HPI: Paco Whitney 88 year old male former 77-uxjv-ypji smoker quitting in 1990 with PMH significant [...] Take 1 capsule by mouth once daily. 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06-11-2024 Telephone encounter Note * Telephone Encounter - Clarice Murillo MD - 12/27/2023 1:43 PM EDT OK to refill as ordered Clarice Murillo MD [facility]06-11-2024 Miscellaneous Notes* Telephone Encounter - Clarice Murillo MD - 12/27/2023 1:43 PM EDT OK to refill as ordered Clarice Murillo MD * Telephone Encounter - [place] Katy Santiago - 12/27/2023 8:50 AM EDT [...] a day for 180 days. Katy Rodriguez [facility] December 27, 2023 8:50 AM documented in this encounterMercy [facility] St[facility]06-11-2024 Telephone encounter Note * Telephone Encounter - [place] Katy Santiago - 12/27/2023 8:50 AM EDT [...] a day for 180 days. Katy Rodriguez [facility] December 27, 2023 8:[address] [facility]06-10-2024 History of Present illness Narrative* Adriel Vides, RN - 12/26/2023 8:59 AM EDT [facility] Telephonic Outreach Provider Action/FYI Doing well Just need a new skeleton Discussed active lifestyle bah to aging well COPD- baseline- HTN- at goal Plans for follow up with PCP -last few visits with ARTISTIC DIRECTOR Contacted for: Routine Telephonic Outreach Contact made [...] more often than normal? No Based on data abstractor, the following disposition is advised: No symptoms or symptoms present, not severe. Routed to: No Action Needed GEOFF Education Provided this Outreach: Isis Vides RN December 26, 2023 11:07 AM documented in this encounterMercy Health [facility]. [facility]05-08-2024 History of Present illness Narrative* Adriel [...] more often than normal? No Based on data abstractor, the following disposition is advised: No symptoms or symptoms present, not severe. Routed to: No Action Needed GEOFF Education Provided this Outreach: Isis Vides RN November 23, 2023 1:34 PM documented in this encounterMer[facility]. [facility]05-06-2024 Telephone encounter Note * Telephone Encounter - Karla Campuzano APRN.CNP - 11/21/2023 8:38 AM EDT The following approved medication requests have been transmitted electronically. Requested Prescriptions Pending Prescriptions Disp Refills ramipril (ALTACE) 10 mg capsule 90 capsule 3 Sig: Take 1 capsule by mouth once daily. Karla Campuzano APRN.CNP [facility]05-06-2024 Miscellaneous Notes* Telephone Encounter - Karla [...] 11/21/2023 8:15 AM EDT Pharmacy verified in [facility] Patient has been identified by name [...] Pss documented in this encounterMercy Health St. [facility]05-06-2024 Telephone encounter Note * Telephone Encounter - Malu Brower OCCA - 11/21/2023 8:36 AM EDT [facility] 10/07/2023 NOV 01/16/2024 Please review and advise. Thank you. TOM Graham [facility]05-06-2024 Telephone encounter Note* Telephone Encounter - Samaria Madison - 11/21/2023 8:15 AM EDT Pharmacy verified in [facility] Patient has been identified by name [...] advise. Samaria Martins Pss [facility]04-08-2024 History of Present illness Narrative* Adriel [...] to talk about today? No Based on data abstractor, the following disposition is advised: No symptoms or symptoms present, not severe. Routed to: No Action Needed GEOFF Education Provided this Outreach: No Adriel Vides RN October 24, 2023 4:04 PM documented in this encounterMer[facility]. [facility]03-22-2024 Instructions* Patient Instructions* Karla Campuzano APRN.CNP - 10/07/2023 10:19 AM EDT If symptoms do not improve or get worse start prednisone and zpack Continue to take all medication as prescribed. Keep scheduled appointments with specialists. Get repeat fasting labs in 6 months. Follow up in 3 months or sooner as needed. documented in this encounterMercy [facility] St. 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 usshueev-thtnlkmua-ruydmscysuzngr (CORTISPORIN) 3.5-10,000-1 mg/mL-unit/mL-% otic suspension Use 4 [...] APRN.CNP This note was partially generated using [employer] voice recognition system. Note was reviewed for accuracy. There may be minor misspellings or grammar miscues with [employer] voice recognition. documented in this encounterMer[facility]. [facility]03-18-2024 Miscellaneous Notes* Telephone Encounter - Sid [...] name and date of : Yes, Provider [facility] Patient phones for refill(s): Requested Prescriptions Pending Prescriptions Disp Refills tamsulosin (FLOMAX) 0.4 mg 90 capsule 3 Sig: TAKE ONE CAPSULE BY MOUTH ONCE DAILY AT BEDTIME Date of last office visit in primary care: 07/08/2023 Date of next office visit in primary care: 10/07/2023 Please advise. Thank you. Indy Santiago. documented in this encounterMercy Health St. 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 Very nice gentlemen! Contacted for: Routine Telephonic [...] more often than normal? No Based on data abstractor, the following disposition is advised: No symptoms or symptoms present, not severe. Routed to: No Action Needed GEOFF Education Provided this Outreach: No Adriel Vides RN September 14, 2023 10:47 AM documented in this encounterMer[facility]. [facility]12-18-2023 History of Present illness Narrative* Samaria [...] DYE.. Lopid [Gemfibrozil] Other: See Comments Comment:Myalgia. 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11-15-2023 History of Present illness Narrative* Adriel [...] more often than normal? No Based on data abstractor, the following disposition is advised: No symptoms or symptoms present, not severe. Routed to: No Action Needed GEOFF Education Provided this Outreach: No Adriel Vides RN June 03, 2023 1:36 PM documented in this encounterMer[facility]10-27-2023 Miscellaneous Notes* Telephone Encounter - Clarice [...] to pharmacy. No need to notify patient. Johnana Jojo documented in this encounterMer[facility] Health [facility]. [facility]10-16-2023 History of Present illness Narrative* Adriel Vides RN - 05/02/2023 9:10 AM EDT [facility] Telephonic Outreach Provider Action/KOFFI Contacted for: Routine Telephonic Outreach Contact made with patient: No, left message. Adriel Vides RN May 02, 2023 4:25 PM documented in this encounterMer[facility]09-12-2023 History of Present illness Narrative* Adriel Vides RN - 03/29/2023 9:43 AM EDT [facility] Telephonic Outreach Provider Action/FYI Patient states doing [...] more often than normal? No Based on data abstractor, the following disposition is advised: No symptoms or symptoms present, not severe. Routed to: No Action Needed GEOFF Education Provided this Outreach: No Adriel Vides RN March 30, 2023 1:44 PM documented in this encounterMer[facility]. [facility]08-28-2023 Instructions* Patient Instructions* Karla Campuzano APRN.SARAI [...] needed. documented in this encounterMercy Health St. 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 cbtiyxpb-dyxkfruts-hlzqtlysnvwyar (CORTISPORIN) 3.5-10,000-1 mg/mL-unit/mL-% otic suspension Use 4 [...] APRN.SARAI This note was partially generated using [employer] voice recognition system. Note was reviewed for accuracy. There may be minor misspellings or grammar miscues with [employer] voice recognition. documented in this encounterMer[facility]08-22-2023 History of Present illness Narrative* Ibeth Paredes APRN.RD SCIENTIST - 03/08/2023 11:00 AM EDT Images from the original note were not included. 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 uuifgcte-fuinaxyod-gijupfmsglokzs (CORTISPORIN) 3.5-10,000-1 mg/mL-unit/mL-% otic suspension Use 4 [...] AM documented in this encounterMer[facility]08-18-2023 History of Present illness Narrative* Suzie [...] PM documented in this encounterMercy Health St. [facility]08-15-2023 Miscellaneous Notes* Telephone Encounter - Briana Nuñez LPN - 03/01/2023 2:32 PM EDT Patient triaged in today and directed to [facility]. Briana Nuñez LPN * Telephone Encounter - Suzie Landaverde LPN - 03/01/2023 10:39 AM EDT Patient called. Verified name and date of . States he started coughing three to four days ago. Is coughing brownish, some times greenish, thick/heavy. Headache- sinus. Denies fever. States this happens occasionally. Please review and advise. Preferred pharmacy is [facility]. Suzie Landaverde LPN documented in this encounterMercy Health St. [facility]08-15-2023 History of Present illness Narrative* Ramses [...] plan of care. [facility] be seen at [facility]. Ramses Jacinto APRN.SARAI documented in this encounterMercy Health St. [facility]08-09-2023 History of Present illness Narrative* Adriel Vides RN - 02/23/2023 5:00 PM EDT [facility] Telephonic Outreach Provider Action/FYI AAA surgery COPD Contacted for: Routine Telephonic Outreach Contact made with patient: No, left message. Adriel Vides RN February 23, 2023 5:02 PM documented in this encounterMercy Health St. [facility]07-18-2023 NoteHNO ID: [id number] Author: Too Kaur MD Service: Vascular Surgery Author Type: Resident Type: Progress Notes Filed: 02/01/2023 8:34 AM Note Text: [facility] V[facility]ULAR [facility] PROGRESS NOTE Template ID: [id number] Service Date: 02/01/2023 Admit Date: 01/31/2023Service Time: [...] -- 01/31/23 1500 activity - mobilize patient (dc,il) 01/31/23 1230 pneumatic compression stockings ([place], [place]) VTE Prophylaxis: VTE prophylaxis appropriate ALLERGIES [...] Neuro/Pain: Continue pain contr (more content not included)...[facility] 02-01-2023 NoteHNO ID: [id number] Author: Reji Zarco MD Service: Critical Care Author Type: Resident Type: Progress Notes Filed: 02/01/2023 9:34 AM Note Text: Attestation signed by Pallavi Cazares MD at 02/01/2023 10:38 AM [facility] STAFF PHYSICIAN SUPERVISING RESIDENT I [...] GERD, BPH, and AAA who presents to [facility] for AAA repair. The patient has [...] 01/31/23699 - 02/01/2365802/01/23699 - 02/02/23 0659 Shift 6432-8114 4319-3450 4924-9714 24 Hour Total 8074-3283 4281-5028 1298-9612 24 Hour Total INTAKE PO 350 240 590 PO 350 240 590 IV 2800 2800 Volume (mL) (lactated ringers iv infusion) 1500 1500 Volume (mL) (lactated ringers iv infusion) 1000 1000 Volume (mL) (NaCl 0.9% iv infusion) 300 300 Shift Total 3150 240 3390 OUTPUT Urine 715 376 6653 2320 Void (ml) 600 1380 1980 Amount Voided Before Bladder Scan 0 0 0 0 OR Urine Output 340 340 # of BMs Number of BMs 0 x 0 x Blood 50 50 Estimated Blood loss 50 50 Shift Total 122 170 4897 2370 Weight (kg) 98.6 98.6 97.5 97.5 [...] gabapentin - Sedation: None (more content not included)...[facility] [id number] NoteHNO ID: [id number] Author: HOANG Barton Service: ? Author Type: Metal Burnisher Type: Anesthesia Procedure Notes Filed: 01/31/2023 9:28 AM Note Text: ANESTHESIOLOGY PROCEDURE NOTE PIV General Information Procedure Start Time/Medication Administration: 01/31/2023 8:17 AM Staffing Anesthesiologist: Rylie Schulz MD LEATHER STRETCHER: Jazz Sweet APRN.LEATHER STRETCHER CAA: Ras Osuna AA Performed by: anesthesiologist Preparation Site Prep: alcohol Procedure Details Indication: need for IV access Needle Size/Type: 16 gauge angiocath Orientation: Right Location: Hand Imaging Guidance Used: No SIGNATURE: HOANG Barton PATIENT NAME: Paco Whitney DATE: January 31, 2023 TIME: 9:27 AM CSN: [id number] NoteHNO ID: [id number] Author: HOANG Barton Service: ? Author Type: Metal Burnisher Type: Anesthesia Procedure Notes Filed: 01/31/2023 9:28 AM Note Text: ANESTHESIOLOGY PROCEDURE NOTE PIV General Information Procedure Start Time/Medication Administration: 01/31/2023 8:16 AM Patient Location: OR Staffing Anesthesiologist: Rylie Schulz MD LEATHER STRETCHER: Jazz Sweet APRN.LEATHER STRETCHER CAA: Ras Osuna AA Performed by: anesthesiologist Preparation Site Prep: alcohol Procedure Details Indication: need for IV access Needle Size/Type: 16 gauge angiocath Orientation: Left Location: Hand Imaging Guidance Used: No SIGNATURE: HOANG Barton PATIENT NAME: Paco Whitney DATE: January 31, 2023 TIME: 9:26 AM CSN: [id number] NoteHNO ID: [id number] Author: HOANG Barton Service: ? Author Type: Metal Burnisher Type: Anesthesia Procedure Notes Filed: 01/31/2023 9:22 AM Note Text: ANESTHESIOLOGY PROCEDURE NOTE A-Line General Information Procedure Start Time/Medication Administration: 01/31/2023 8:05 AM Patient location during procedure: OR Indications: continuous blood pressure monitoring and blood sampling needed Staffing Anesthesiologist: Rylie Schulz MD LEATHER STRETCHER: Jazz Sweet APRN.LEATHER STRETCHER CAA: Ras Osuna AA Performed by: anesthesiologist [...] January 31, 2023 TIME: 9:15 AM CSN: [id number] NoteHNO ID: [id number] Author: HOANG Barton Service: ? Author Type: Metal Burnisher Type: Anesthesia Procedure Notes Filed: 01/31/2023 9:15 AM Note Text: ANESTHESIOLOGY PROCEDURE NOTE Airway General Information Procedure Start Time/Medication Administration: 01/31/2023 8:15 AM Patient location during procedure: OR Patient identity confirmed: arm band, care inspector outside steam distribution and patient Staffing Anesthesiologist: Rylie Schulz MD LEATHER STRETCHER: Jazz Sweet APRN.LEATHER STRETCHER CAA: Ras Osuna AA Performed by: NICOLE [...] January 31, 2023 TIME: 9:08 AM CSN: [id number] History of Present illness Narrative* Adriel Vides RN - 01/25/2023 10:26 AM EDT [facility] Telephonic Outreach Provider Action/IHSANI Patient completed pre [...] improved. Very pleased with pulmonary visit and ARTISTIC DIRECTOR taking time to review diagnotic imaging with [...] more often than normal? No Based on data abstractor, the following disposition is advised: No symptoms or symptoms present, not severe. Routed to: No Action Needed GEOFF Education Provided this Outreach: No Adriel Vides RN January 26, 2023 12:50 PM documented in this encounterMercy [facility]07-10-2023 History and physical note * Rose [...] iliac branch device - Damián Pierre from [place] will bring implant - kf7/3 RETAIL CLIENT MANAGER NEEDED at the request of Eladio Livingston [...] without residual deficits. 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 Taking Yes wfuolsqv-mnzbutpnm-xkpgzjhdmxhkdh (CORTISPORIN) 3.5-10,000-1 mg/mL-unit/mL-% otic suspension Use 4 Drops in the ears four times daily. x 1 week Taking Yes albuterol HFA (VENTOLIN HFA) 90 mcg/actuation inhaler Inhale 2 Puffs as instructed every 4 hours asneeded for Wheezing/Shortness of Breath. Taking Yes Medication Comments documented by Korin Calixto Ma on 11/27/2019 at 1501. Started Baby ASA 81 mg daily ALLERGIES Allergen Reactions [facility]] [Other] Other: See Comments Rhabdomyolysis. Demerol [Meperidine* [...] or any previous visit (from the past 01291 hour(s)). Assessment Patient has the following medical [...] smoker - ICD9: V15.82, ICD10: Z87.891 Former 43-ujoq-thza smoking having quit in 1990 without sequelae [...] equal to 35 kg/m^2 STOP-Bang Score: 7 [id number] Score: Age: >=75 Sex: male CHF history: No Hypertension history: Yes Stroke/TIA/thromboembolism history: Yes Vascular disease history: Yes Diabetes history: No [id number] Score: 6 ARISCAT Score: Age: >80 Preoperative [...] and consent discussed: yes. Patient / Responsible Alliance Party agrees to proceed: yes Patient / [...] [facility] or Procedure: Answer: [place] Confirm Blood Type Standing Status: Future Standing [...] #: documented in this encounterMer[facility] Instructions* Patient Instructions* Rose Wall APRN.CNP - 01/24/2023 11:44 AM EDT PATIENT PREOPERATIVE INSTRUCTIONS No ref. provider found has scheduled you for your procedure at this surgery center: [facility]: [phone] --[id number] [address]. Please check in on the1st floor at [...] Procedures: - YOU MUST HAVE A RESPONSIBLE MILLED RUBBER TENDER TAKE YOU HOME. A CAREER DEVELOPMENT FACILITATOR OR SUPERVISOR ACCOUNTING CLERKS CANNOT BE MADE A RESPONSIBLE MILLED RUBBER TENDER. - We recommend that a responsible person [...] Advance Directive, please fax a copy to [phone] or email to for it to be [...] APRN.SARAI documented in this encounterMercy Health [facility]06[facility] History of Present illness Narrative* Samaria [...] Take 1 capsule by mouth once daily. 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06[facility]07[facility] History of Present illness Narrative* Adriel Vides RN - 12/22/2022 10:33 AM EDT [facility] Telephonic Outreach Provider Action/FYI Contacted for: Routine Telephonic Outreach Contact made with patient: No, left message. Adriel Vides RN December 22, 2022 3:55 PM documented in this encounterMercy Health St[facility]05-15-2023 NoteHNO ID: [id number] Author: CLARA Dunham Service: Nuclear Medicine Author [...] POST EXAM PIV STATUS: Discontinued PROCEDURE TYPE: GA Stress: 12.4 mCi Du69d-Hjptydk was administered IV for Rest Imaging at 09:33 by . 33.7 mCi Sh41g-Irybwmv was administered IV for Stress Imaging at 10:19 by . PATIENT DISCHARGED TO: Ambulatory patient, left GA department area. A Diagnostic radioactive procedure has taken place, with no further precautions necessary other than routine body substance precautions. More information regarding radiation safety can be found using this link: [email or web address] SIGNATURE: CLARA Dunham PATIENT NAME: Paco Whitney DATE: November 29, 2022 TIME: 10:20 AM [phone] History of Present illness Narrative* CLARA Dunham [...] POST EXAM PIV STATUS: Discontinued PROCEDURE TYPE: GA Stress: 12.4 mCi Vz20f-Umunadu was administered IV for Rest Imaging at 09:33 by . 33.7 mCi Oa04t-Aurmvtm was administered IV for Stress Imaging at 10:19 by . PATIENT DISCHARGED TO: Ambulatory patient, left GA department area. A Diagnostic radioactive procedure has taken place, with no further precautions necessary other than routine body substance precautions. More information regarding radiation safety can be found usingthis link: [email or web address] 20Diagnostic%20Nuclear%20Medicine%20Procedures.pdf SIGNATURE: CLARA Dunham PATIENT NAME: Paco Whtiney DATE: November 29, 2022 TIME: 10:20 AM PAGER/CONTACT #: documented in this encounterMercy Health [facility]05-12-2023 Miscellaneous Notes* Telephone Encounter - Tosha Fernando RN - 11/26/2022 2:33 PM EDT Spoke with patient regarding reminder for stress test on Tuesday and given instructions documented in this encounterMer[facility]05-11-2023 Miscellaneous Notes* Telephone Encounter - Clarice [...] Santiago documented in this encounterMercy Health St. [facility]05-05-2023 History of Present illness Narrative* Adriel [...] more often than normal? No Based on data abstractor, the following disposition is advised: Symptoms present, not severe. Routed to: No Action Needed GEOFF Education Provided this Outreach: No Adriel Vides RN November 19, 2022 4:34 PM documented in this encounterMercy Health St[facility]04-27-2023 History of Present illness Narrative* Chalino Valdez, DO - 11/11/2022 12:29 PM EDT Images from the original note were not included. [facility] [place] [facility] UR[facility] LOCATION: [address] [place] [address] ESTABLISHED PATIENT PATIENT INFO: Paco Whitney 87 [...] 64.1 Lymph% (%) Date Value 04/16/2019 21.3 [place]% (%) Date Value 04/16/2019 10.5 Eosin% (%) Date Value 04/16/2019 3.0 Baso% (%) Date Value 04/16/2019 1.1 Abs Neut (ANC) (k/uL) Date Value 04/16/2019 5.13 Abs [place] (k/uL) Date Value 04/16/2019 0.84 Abs Eosin [...] Take 1 capsule by mouth once daily. ektmtxjf-njqzqasxc-acdouzajkmonwo (CORTISPORIN) 3.5-10,000-1 mg/mL-unit/mL-% otic suspension Use 4 [...] with more than 50% of the total niyo-wt-ilin time of the visit in counseling / coordination of care. Chalino Valdez DO MBA documented in this encounterMercy Health [facility]04-13-2023 Miscellaneous Notes* Telephone Encounter - Charis Debi - 10/28/2022 9:34 AM EDT Patient calling with questions after OV on 10/27/22. Reviewed the plan from OV note from Patient plans to see urologist in a few weeks and will call the office if he decides to proceed with the procedure documented in this encounterMercy Health St[facility]04-12-2023 History of Present illness Narrative* Eladio Pablo MD - 10/27/2022 2:45 PM EDT Images from the original note were not included. 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 iecbzjdh-vvkwckusw-cdtcujhcfiaozm (CORTISPORIN) 3.5-10,000-1 mg/mL-unit/mL-% otic suspension Use 4 [...] medications for this visit. ALLERGIES Allergen Reactions [facility]] [Other] Other: See Comments Rhabdomyolysis. Demerol [Meperidine* [...] evaluation documented in this encounterMercy Health St[facility]04-10-2023 Miscellaneous Notes* Telephone Encounter - Korin [...] LPN documented in this encounterMercy Health St. [facility]04-06-2023 History of Present illness Narrative* Adriel Vides RN - 10/21/2022 8:39 AM EDT INSIGHT [facility] TELEPHONIC OUTREACH Provider Action/FYI: Patient's spouse answered. They are at [facility], needed to stop and pay a bill. [...] outreach documented in this encounterMercy Health St. [facility]03-29-2023 History of Present illness Narrative* Suzie [...] PM documented in this encounterMercy Health St. [facility]03-27-2023 History of Present illness Narrative* Fabio Noriega MD - 10/11/2022 10:29 AM EDTAssociated Order(s): Large Joint Arthro/Inj: bilateral glenohumerals Post-Procedure Diagnose(s): Acute pain of both shoulders; Chronic pain of both shoulders; Primary osteoarthritis of both shoulders Patient presents with: Right Shoulder - Pain, New Left Shoulder - Pain, New Fabio Noriega MD Department of Orthopaedics Orthopaedics [address] [facility] [address] Dept: [phone] Dept October 11, 2022 CHIEF COMPLAINT: Pain [...] bilateral glenohumerals Informed Consent Consent Obtained: Verbal Beryl Protocol A moment to CARE was completed. [...] osteoarthritis and bilateral subacromial subdeltoid calcific bursitis. 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: PENNY Transcribe Date/Time: Oct 13 2022 4:47P [...] None RESULT: Severe bilateral glenohumeral osteoarthritis with pumz-gx-jpsd contact. Mild degenerative change bilateral acromioclavicular joints. 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 npnmmjwf-eokkyaasw-hzisdbprjxlwfm (CORTISPORIN) 3.5-10,000-1 mg/mL-unit/mL-% otic suspension Use 4 [...] physician via US mail. Karla Campuzano [address] [facility] [address] Clarice Murillo MD [address] [facility] [address] Fabio Noriega MD documented in this encounterMercy Health St. [facility]03-15-2023 Miscellaneous Notes* Telephone Encounter - Pretty [...] first. documented in this encounterMercy Health St. [facility]02-20-2023 Instructions* Patient Instructions* Clarice Murillo MD - 09/06/2022 6:51 PM EST Follow up with Dr Nolen, Vascular Surgery, for aneurysm Follow up with Dr Valdez, Urology, for kidney documented in this encounterMercy Health St. 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02-16-2023 Miscellaneous Notes* Telephone Encounter - Sid [...] Fajardo documented in this encounterMercy Health St. [facility]02-02-2023 History of Present illness Narrative* Adriel Vides, RN - 08/19/2022 12:37 PM EST INSIGHT [...] like to speak with a social work inspector outside steam distribution to help give you support for any [...] you up for automated weekly questionnaires through [employer]. This is an easy way for us [...] outreach. documented in this encounterMercy Health St[facility]01-26-2023 Miscellaneous Notes* Telephone Encounter - Sid [...] 08/12/2022 10:41 AM EST Pharmacy verified in [facility] Patient has been identified by name [...] Pss documented in this encounterMercy Health St. [facility]12-30-2022 History of Present illness Narrative* Adriel Vides RN - 07/16/2022 8:55 AM EST HO YEE TELEPHONIC OUTREACH Provider Alaina/KOFFI COPD-At baseline- Pulmonary visit 07/06. Trial increased Symbicort. RZ-gapvprsi-khpbjdkol from 2018 No concerns outside of his degenerative arthritis-Seems to worsen when damp outside. Advised discussion with PCP next visit if worsening. Does not access [employer] Contact made with patient: Yes Patient identified [...] like to speak with a social work inspector outside steam distribution to help give you support for any [...] you up for automated weekly questionnaires through [employer]. This is an easy way for us [...] outreach. documented in this encounterMercy Health St[facility]12-28-2022 Miscellaneous Notes* Telephone Encounter - Francia Luna MD - 07/14/2022 10:47 AM EST Spoke with patient regarding results of chest CT. ILD has not progressed and RLL mass-like infiltrate is the same compared to 2018, consistent with rounded atelectasis. documented in this encounterMercy [facility]12-22-2022 History of Present illness Narrative* Suzie [...] AM documented in this encounterMercy Health St. [facility]12-20-2022 History of Present illness Narrative* Francia Luna MD - 07/06/2022 1:30 PM EST Images from the original note were not included. . [facility] [place] Note Patient name: Paco Whitney PCP: Clarice [...] cerebral ischemia x 2 ALLERGIES [facility]actions [facility]] [Other] Other: See Comments Rhabdomyolysis. Demerol [Meperidine* [...] on empty stomach, 1/2 hr before meal. 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 Former cigarette smoker -Former 54-zmdl-kgfp smoker having quit in 1990 without sequelae of significant COPD or emphysema -Continued abstinence Francia Luna MD [facility] [place] documented in this encounterMercy Health [facility]12-20-2022 Nurse Note* Briana Nuñez LPN - 07/06/2022 1:25 PM EST Intake information documented in the prior visit with TUYET Enciso today. documented in this encounterMercy Health St[facility]11-29-2022 Miscellaneous Notes* Telephone Encounter - Elizabeth Alvarez LPN - 2022 10:49 AM EST [facility] calling to clarify rx for Doxycyline. Rx says one tablet twice daily for 10 days, rx sent for 10 tablets only. Please send new rx with amount wanted please. Please advise documented in this encounterMercy Health St[facility]11-29-2022 Instructions* Patient Instructions* Keith Guillen APRN.SARAI - 2022 10:10 AM EST Continue prednisone and Doxycycline Start Mucinex Follow up with Dr. Bravo documented in this encounterMercy Health St. 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 Patient Allergies ALLERGIES Allergen Reactions [facility]] [Other] Other: See Comments Rhabdomyolysis. Demerol [Meperidine* [...] on empty stomach, 1/2 hr before meal. yebatfgv-ivmretlxm-uywdrmqjnqrkwn (CORTISPORIN) 3.5-10,000-1 mg/mL-unit/mL-% otic suspension Use 4 [...] exacerbation of chronic obstructive pulmonary disease (COPD) ([facility]) - ICD9: 491.21, ICD10: J44.1 - PREDNISONE 10 MG TABLET - DOXYCYCLINE HYCLATE 100 MG TABLET - GUAIFENESIN ER 600 MG TABLET, EXTENDED RELEASE 12 HR - CONSULT TO PULMONARY MEDICINE Keithozzy Guillen APRN.CNP documented in this encounterMercy Health St. [facility]11-28-2022 History of Present illness Narrative* Francia [...] appointment? No Reason for Outreach Community Monitoring [place] Payer: Payor: PRIMETIME / Plan: PRIMETIME HMO [...] PCP within 7 days - Routed to [facility] [[phone]] Medications Do you have any questions about [...] like to speak with a social work inspector outside steam [employer] to help give you support for any [...] you up for automated weekly questionnaires through [employer]. This is an easy way for us [...] - 06/11/2022 9:42 AM EST [facility]IGHT [facility] TELEPHONIC OUTREACH Provider Action/FYI: Contact made with patient: No - Left message Timur my name is Adriel Vides RN your Chief Station Engineer from the [facility] I am calling today for your bi-weekly check in. I am sorry I missed your call. I will reach out to you again tomorrow. (if the third call I will reach out to you again next week) Enter next patient outreach date forthe following using the Track Pt Outreach. End outreach. documented in this encounterMercy Health St[facility]11-23-2022 Miscellaneous Notes* Telephone Encounter - Charis [...] APRN.CNP documented in this encounterMercy Health St. [facility]11-22-2022 History of Present illness Narrative* Amy [...] PM documented in this encounterMercy Health St. 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 tnxqywaz-zdlzlwwbb-mtczupsjgiqkit (CORTISPORIN) 3.5-10,000-1 mg/mL-unit/mL-% otic suspension Use 4 [...] Past Histories independently gathered by the clinical customer support manager and the remaining scribed note accurately describes [...] Ma documented in this encounterMercy Health St. [facility]10-14-2022 Miscellaneous Notes* Telephone Encounter - Marianne [...] advise. Charis Jones Pss documented in this encounterMercy Health St. [facility]09-26-2022 History of Present illness Narrative* Marianne [...] like to speak with a social work inspector outside [employer] to help give you support for any [...] you up for automated weekly questionnaires through [employer]. This is an easy way for us [...] outreach. documented in this encounterMercy Health [facility]08-29-2022 History of Present illness Narrative* Marianne Balderas RN - 03/15/2022 9:17 AM EDT [facility] TELEPHONIC OUTREACH Provider Action/FYI: Patient reports they [...] like to speak with a social work inspector outside steam distribution to help give you support for any [...] you up for automated weekly questionnaires through [employer]. This is an easy way for us [...] outreach. documented in this encounterMercy [facility]08-02-2022 History of Present illness Narrative* Marianne [...] like to speak with a social work inspector outside [employer] to help give you support for any [...] you up for automated weekly questionnaires through [employer]. This is an easy way for us [...] outreach. documented in this encounterMercy Health [facility]08-01-2022 History of Present illness Narrative* Marianne Balderas RN - 02/15/2022 10:48 AM EDT INSIGHT [facility] TELEPHONIC OUTREACH Provider Action/FYI: Contact made with patient: No - Left message Hello my name is Marianne Balderas RN your Chief Station Engineer from the [facility] I am calling today for your monthly check in. I am sorry I missed your call. I will reach out to you again tomorrow. (if the third call I will reach out to you again next week) Enter next patient outreach datefor the following using the Track Pt Outreach. End outreach. documented in this encounterMercy Health [facility]07-21-2022 Miscellaneous Notes* Telephone Encounter - Sid [...] return call. Johanna Jojo documented in this encounterMercy Health [facility]. [facility]07-05-2022 History of Present illness Narrative* Marianne Balderas RN - 01/19/2022 9:33 AM EDT [facility] TELEPHONIC OUTREACH Provider Action/FYI: Pt reports he [...] like to speak with a social work inspector outside steam distribution to help give you support for any [...] you up for automated weekly questionnaires through [employer]. This is an easy way for us [...] outreach. documented in this encounterMercy [facility]05-20-2022 Miscellaneous Notes* Telephone Encounter - Elisa Granger Ma - 12/04/2021 10:32 AM EDT Pt notified. * Telephone Encounter - Clarice Murillo MD - 12/03/2021 6:08 PM EDT Please notify patient that his blood work all looks good. Clarice Murillo MD documented in this encounterMercy Health [facility]. [facility]05-16-2022 History of Present illness Narrative* Clarice [...] W/COLLJ SPEC WHEN PFRMD 09/19/2011 [facility] HERNIA REPAIR HX 04/03/13 PAST SURGICAL [...] Inhale 2 Puffs as instructed twice daily. dvpkcyef-ibsbxojln-mxqzwgmzrjejhx (CORTISPORIN) 3.5-10,000-1 mg/mL-unit/mL-% otic suspension Use 4 [...] Past Histories independently gathered by the clinical customer support manager and the remaining scribed note accurately describes [...] Ma documented in this encounterMercy Health St. [facility]05-16-2022 Nurse Note* Marianne Escobar Ma - [...] Balance documented in this encounterMercy Health St. [facility]04-18-2022 History of Present illness Narrative* Marianne [...] like to speak with a social work inspector outside [employer] to help give you support for any [...] you up for automated weekly questionnaires through [employer]. This is an easy way for us [...] outreach. documented in this encounterMercy [facility]03-21-2022 History of Present illness Narrative* Marianne [...] like to speak with a social work inspector outside [employer] to help give you support for any [...] you up for automated weekly questionnaires through [employer]. This is an easy way for us [...] outreach. documented in this encounterMercy Health [facility]12-23-2014 History of Past illness Narrative* Problem Noted Date Resolved Date AAA (abdominal aortic aneurysm) 07/09/2014 11/25/2020 Overview: CT abd 06/2014 showing 4.4 x 4.2 cm AAA documented as of this encounter (statuses as of 10/05/2021) [facility]12[facility]-2014 History of Past illness Narrative* Problem Noted Date Resolved Date AAA (abdominal aortic aneurysm) 07/09/2014 11/25/2020 Overview: CT abd 06/2014 showing 4.4 x 4.2 cm AAA documented as of this encounter (statuses as of 11/02/2021) [facility]12[facility]-2014 History of Past illness Narrative* Problem Noted Date Resolved Date AAA (abdominal aortic aneurysm) 07/09/2014 11/25/2020 Overview: CT abd 06/2014 showing 4.4 x 4.2 cm AAA documented as of this encounter (statuses as of 12/01/2021) [facility]12[facility] History of Past illness Narrative* Problem Noted Date Resolved Date AAA (abdominal aortic aneurysm) 07/09/2014 11/25/2020 Overview: CT abd 06/2014 showing 4.4 x 4.2 cm AAA documented as of this encounter (statuses as of 12/04/2021) [facility]12[facility] History of Past illness Narrative* Problem Noted Date Resolved Date AAA (abdominal aortic aneurysm) 07/09/2014 11/25/2020 Overview: CT abd 06/2014 showing 4.4 x 4.2 cm AAA documented as of this encounter (statuses as of 01/19/2022) [facility]12[facility] History of Past illness Narrative* Problem Noted Date Resolved Date AAA (abdominal aortic aneurysm) 07/09/2014 11/25/2020 Overview: CT abd 06/2014 showing 4.4 x 4.2 cm AAA documented as of this encounter (statuses as of 02/04/2022) [facility]12-23-2014 History of Past illness Narrative* Problem Noted Date Resolved Date AAA (abdominal aortic aneurysm) 07/09/2014 11/25/2020 Overview: CT abd 06/2014 showing 4.4 x 4.2 cm AAA documented as of this encounter (statuses as of 02/15/2022) [facility]12-23-2014 History of Past illness Narrative* Problem Noted Date Resolved Date AAA (abdominal aortic aneurysm) 07/09/2014 11/25/2020 Overview: CT abd 06/2014 showing 4.4 x 4.2 cm AAA documented as of this encounter (statuses as of 02/16/2022) [facility]12-[facility]-2014 History of Past illness Narrative* Problem Noted Date Resolved Date AAA (abdominal aortic aneurysm) 07/09/2014 11/25/2020 Overview: CT abd 06/2014 showing 4.4 x 4.2 cm AAA documented as of this encounter (statuses as of 03/15/2022) [facility]12-23-2014 History of Past illness Narrative* Problem Noted Date Resolved Date AAA (abdominal aortic aneurysm) 07/09/2014 11/25/2020 Overview: CT abd 06/2014 showing 4.4 x 4.2 cm AAA documented as of this encounter (statuses as of 04/12/2022) [facility]12-[facility]-2014 History of Past illness Narrative* Problem Noted Date Resolved Date AAA (abdominal aortic aneurysm) 07/09/2014 11/25/2020 Overview: CT abd 06/2014 showing 4.4 x 4.2 cm AAA documented as of this encounter (statuses as of 04/30/2022) [facility]12-[facility]-2014 History of Past illness Narrative* Problem Noted Date Resolved Date AAA (abdominal aortic aneurysm) 07/09/2014 11/25/2020 Overview: CT abd 06/2014 showing 4.4 x 4.2 cm AAA documented as of this encounter (statuses as of 06/04/2022) [facility]12-[facility]-2014 History of Past illness Narrative* Problem Noted Date Resolved Date AAA (abdominal aortic aneurysm) 07/09/2014 11/25/2020 Overview: CT abd 06/2014 showing 4.4 x 4.2 cm AAA documented as of this encounter (statuses as of 06/14/2022) [facility]12[facility]2014 History of Past illness Narrative* Problem Noted Date Resolved Date AAA (abdominal aortic aneurysm) 07/09/2014 11/25/2020 Overview: CT abd 06/2014 showing 4.4 x 4.2 cm AAA documented as of this encounter (statuses as of 2022) [facility]12-[facility]2014 History of Past illness Narrative* Problem Noted Date Resolved Date AAA (abdominal aortic aneurysm) 07/09/2014 11/25/2020 Overview: CT abd 06/2014 showing 4.4 x 4.2 cm AAA documented as of this encounter (statuses as of 2022) [facility]12[facility]2014 History of Past illness Narrative* Problem Noted Date Resolved Date AAA (abdominal aortic aneurysm) 07/09/2014 11/25/2020 Overview: CT abd 06/2014 showing 4.4 x 4.2 cm AAA documented as of this encounter (statuses as of 07/05/2022) [facility]12[facility]2014 History of Past illness Narrative* Problem Noted Date Resolved Date AAA (abdominal aortic aneurysm) 07/09/2014 11/25/2020 Overview: CT abd 06/2014 showing 4.4 x 4.2 cm AAA documented as of this encounter (statuses as of 07/06/2022) [facility]12-[facility]-2014 History of Past illness Narrative* Problem Noted Date Resolved Date AAA (abdominal aortic aneurysm) 07/09/2014 11/25/2020 Overview: CT abd 06/2014 showing 4.4 x 4.2 cm AAA documented as of this encounter (statuses as of 07/20/2022) [facility]12[facility] History of Past illness Narrative* Problem Noted Date Resolved Date AAA (abdominal aortic aneurysm) 07/09/2014 11/25/2020 Overview: CT abd 06/2014 showing 4.4 x 4.2 cm AAA documented as of this encounter (statuses as of 07/21/2022) [facility]12[facility] History of Past illness Narrative* Problem Noted Date Resolved Date AAA (abdominal aortic aneurysm) 07/09/2014 11/25/2020 Overview: CT abd 06/2014 showing 4.4 x 4.2 cm AAA documented as of this encounter (statuses as of 08/12/2022) [facility]12[facility] History of Past illness Narrative* Problem Noted Date Resolved Date AAA (abdominal aortic aneurysm) 07/09/2014 11/25/2020 Overview: CT abd 06/2014 showing 4.4 x 4.2 cm AAA documented as of this encounter (statuses as of 08/19/2022) [address]23-2014 History of Past illness Narrative* Problem Noted Date Resolved Date AAA (abdominal aortic aneurysm) 07/09/2014 11/25/2020 Overview: CT abd 06/2014 showing 4.4 x 4.2 cm AAA documented as of this encounter (statuses as of 09/02/2022) [address]23-2014 History of Past illness Narrative* Problem Noted Date Resolved Date AAA (abdominal aortic aneurysm) 07/09/2014 11/25/2020 Overview: CT abd 06/2014 showing 4.4 x 4.2 cm AAA documented as of this encounter (statuses as of 09/07/2022) [facility]12[facility]2014 History of Past illness Narrative* Problem Noted Date Resolved Date AAA (abdominal aortic aneurysm) 07/09/2014 11/25/2020 Overview: CT abd 06/2014 showing 4.4 x 4.2 cm AAA documented as of this encounter (statuses as of 09/29/2022) [facility]12[facility] History of Past illness Narrative* Problem Noted Date Resolved Date AAA (abdominal aortic aneurysm) 07/09/2014 11/25/2020 Overview: CT abd 06/2014 showing 4.4 x 4.2 cm AAA documented as of this encounter (statuses as of 10/06/2022) [facility]12[facility] History of Past illness Narrative* Problem Noted Date Resolved Date AAA (abdominal aortic aneurysm) 07/09/2014 11/25/2020 Overview: CT abd 06/2014 showing 4.4 x 4.2 cm AAA documented as of this encounter (statuses as of 10/21/2022) [facility]12[facility]2014 History of Past illness Narrative* Problem Noted Date Resolved Date AAA (abdominal aortic aneurysm) 07/09/2014 11/25/2020 Overview: CT abd 06/2014 showing 4.4 x 4.2 cm AAA documented as of this encounter (statuses as of 10/26/2022) [facility]12[facility]-2014 History of Past illness Narrative* Problem Noted Date Resolved Date AAA (abdominal aortic aneurysm) 07/09/2014 11/25/2020 Overview: CT abd 06/2014 showing 4.4 x 4.2 cm AAA documented as of this encounter (statuses as of 10/28/2022) [facility]12[facility]-2014 History of Past illness Narrative* Problem Noted Date Resolved Date AAA (abdominal aortic aneurysm) 07/09/2014 11/25/2020 Overview: CT abd 06/2014 showing 4.4 x 4.2 cm AAA documented as of this encounter (statuses as of 10/29/2022) [facility]12-[facility]-2014 History of Past illness Narrative* Problem Noted Date Resolved Date AAA (abdominal aortic aneurysm) 07/09/2014 11/25/2020 Overview: CT abd 06/2014 showing 4.4 x 4.2 cm AAA documented as of this encounter (statuses as of 11/11/2022) [facility]12-[facility]-2014 History of Past illness Narrative* Problem Noted Date Resolved Date AAA (abdominal aortic aneurysm) 07/09/2014 11/25/2020 Overview: CT abd 06/2014 showing 4.4 x 4.2 cm AAA documented as of this encounter (statuses as of 11/15/2022) [facility]12[facility]-2014 History of Past illness Narrative* Problem Noted Date Resolved Date AAA (abdominal aortic aneurysm) 07/09/2014 11/25/2020 Overview: CT abd 06/2014 showing 4.4 x 4.2 cm AAA documented as of this encounter (statuses as of 11/20/2022) [facility]12[facility]-2014 History of Past illness Narrative* Problem Noted Date Resolved Date AAA (abdominal aortic aneurysm) 07/09/2014 11/25/2020 Overview: CT abd 06/2014 showing 4.4 x 4.2 cm AAA documented as of this encounter (statuses as of 11/26/2022) [place] [address]-23-2014 History of Past illness Narrative* Problem Noted Date Resolved Date AAA (abdominal aortic aneurysm) 07/09/2014 11/25/2020 Overview: CT abd 06/2014 showing 4.4 x 4.2 cm AAA documented as of this encounter (statuses as of 11/26/2022) [place] [address]-23-2014 History of Past illness Narrative* Problem Noted Date Resolved Date AAA (abdominal aortic aneurysm) 07/09/2014 11/25/2020 Overview: CT abd 06/2014 showing 4.4 x 4.2 cm AAA documented as of this encounter (statuses as of 11/30/2022) [facility]12[facility] History of Past illness Narrative* Problem Noted Date Resolved Date AAA (abdominal aortic aneurysm) 07/09/2014 11/25/2020 Overview: CT abd 06/2014 showing 4.4 x 4.2 cm AAA documented as of this encounter (statuses as of 11/30/2022) [place] [address]-23-2014 History of Past illness Narrative* Problem Noted Date Resolved Date AAA (abdominal aortic aneurysm) 07/09/2014 11/25/2020 Overview: CT abd 06/2014 showing 4.4 x 4.2 cm AAA documented as of this encounter (statuses as of 12/23/2022) [place] [address]-23-2014 History of Past illness Narrative* Problem Noted Date Resolved Date AAA (abdominal aortic aneurysm) 07/09/2014 11/25/2020 Overview: CT abd 06/2014 showing 4.4 x 4.2 cm AAA documented as of this encounter (statuses as of 01/06/2023) [facility]12-[facility]-2014 History of Past illness Narrative* Problem Noted Date Diagnosed Date Resolved Date AAA (abdominal aortic aneurysm) 07/09/2014 11/25/2020 Overview: CT abd 06/2014 showing 4.4 x 4.2 cm AAA documented as of this encounter (statuses as of 01/27/2023) [facility]12-[facility]-2014 History of Past illness Narrative* Problem Noted Date Diagnosed Date Resolved Date AAA (abdominal aortic aneurysm) 07/09/2014 11/25/2020 Overview: CT abd 06/2014 showing 4.4 x 4.2 cm AAA documented as of this encounter (statuses as of 01/28/2023) [facility]12-[facility]-2014 History of Past illness Narrative* Problem Noted Date Diagnosed Date Resolved Date AAA (abdominal aortic aneurysm) 07/09/2014 11/25/2020 Overview: CT abd 06/2014 showing 4.4 x 4.2 cm AAA documented as of this encounter (statuses as of 02/24/2023) [facility]12-[facility]-2014 History of Past illness Narrative* Problem Noted Date Diagnosed Date Resolved Date AAA (abdominal aortic aneurysm) 07/09/2014 11/25/2020 Overview: CT abd 06/2014 showing 4.4 x 4.2 cm AAA documented as of this encounter (statuses as of 03/02/2023) [facility]12-23-2014 History of Past illness Narrative* Problem Noted Date Diagnosed Date Resolved Date AAA (abdominal aortic aneurysm) 07/09/2014 11/25/2020 Overview: CT abd 06/2014 showing 4.4 x 4.2 cm AAA documented as of this encounter (statuses as of 03/02/2023) [facility]12-[facility]-2014 History of Past illness Narrative* Problem Noted Date Diagnosed Date Resolved Date AAA (abdominal aortic aneurysm) 07/09/2014 11/25/2020 Overview: CT abd 06/2014 showing 4.4 x 4.2 cm AAA documented as of this encounter (statuses as of 03/08/2023) [facility]12[facility]-2014 History of Past illness Narrative* Problem Noted Date Diagnosed Date Resolved Date AAA (abdominal aortic aneurysm) 07/09/2014 11/25/2020 Overview: CT abd 06/2014 showing 4.4 x 4.2 cm AAA documented as of this encounter (statuses as of 03/15/2023) [facility]12-23-2014 History of Past illness Narrative* Problem Noted Date Diagnosed Date Resolved Date AAA (abdominal aortic aneurysm) 07/09/2014 11/25/2020 Overview: CT abd 06/2014 showing 4.4 x 4.2 cm AAA documented as of this encounter (statuses as of 03/30/2023) [facility]12[facility]2014 History of Past illness Narrative* Problem Noted Date Diagnosed Date Resolved Date AAA (abdominal aortic aneurysm) 07/09/2014 11/25/2020 Overview: CT abd 06/2014 showing 4.4 x 4.2 cm AAA documented as of this encounter (statuses as of 05/03/2023) [facility] History of Past illness Narrative* Problem Noted Date Diagnosed Date Resolved Date AAA (abdominal aortic aneurysm) 07/09/2014 11/25/2020 Overview: CT abd 06/2014 showing 4.4 x 4.2 cm AAA documented as of this encounter (statuses as of 05/13/2023) [facility]12[facility]2014 History of Past illness Narrative* Problem Noted Date Diagnosed Date Resolved Date AAA (abdominal aortic aneurysm) 07/09/2014 11/25/2020 Overview: CT abd 06/2014 showing 4.4 x 4.2 cm AAA documented as of this encounter (statuses as of 05/22/2023) [facility]12[facility] History of Past illness Narrative* Problem Noted Date Diagnosed Date Resolved Date AAA (abdominal aortic aneurysm) 07/09/2014 11/25/2020 Overview: CT abd 06/2014 showing 4.4 x 4.2 cm AAA documented as of this encounter (statuses as of 05/22/2023) [facility] History of Past illness Narrative* Problem Noted Date Diagnosed Date Resolved Date AAA (abdominal aortic aneurysm) 07/09/2014 11/25/2020 Overview: CT abd 06/2014 showing 4.4 x 4.2 cm AAA documented as of this encounter (statuses as of 05/22/2023) [place] [address]-23-2014 History of Past illness Narrative* Problem Noted Date Diagnosed Date Resolved Date AAA (abdominal aortic aneurysm) 07/09/2014 11/25/2020 Overview: CT abd 06/2014 showing 4.4 x 4.2 cm AAA documented as of this encounter (statuses as of 05/22/2023) [facility]12[facility] History of Past illness Narrative* Problem Noted Date Diagnosed Date Resolved Date AAA (abdominal aortic aneurysm) 07/09/2014 11/25/2020 Overview: CT abd 06/2014 showing 4.4 x 4.2 cm AAA documented as of this encounter (statuses as of 06/03/2023) [facility] History of Past illness Narrative* Problem Noted Date Diagnosed Date Resolved Date AAA (abdominal aortic aneurysm) 07/09/2014 11/25/2020 Overview: CT abd 06/2014 showing 4.4 x 4.2 cm AAA documented as of this encounter (statuses as of 07/05/2023) [place] [address]-23-2014 History of Past illness Narrative* Problem Noted Date Diagnosed Date Resolved Date AAA (abdominal aortic aneurysm) 07/09/2014 11/25/2020 Overview: CT abd 06/2014 showing 4.4 x 4.2 cm AAA documented as of this encounter (statuses as of 09/14/2023) [place] [address]-23-2014 History of Past illness Narrative* Problem Noted Date Diagnosed Date Resolved Date AAA (abdominal aortic aneurysm) 07/09/2014 11/25/2020 Overview: CT abd 06/2014 showing 4.4 x 4.2 cm AAA documented as of this encounter (statuses as of 10/03/2023) [facility] History of Past illness Narrative* Problem Noted Date Diagnosed Date Resolved Date AAA (abdominal aortic aneurysm) 07/09/2014 11/25/2020 Overview: CT abd 06/2014 showing 4.4 x 4.2 cm AAA documented as of this encounter (statuses as of 10/07/2023) [facility] History of Past illness Narrative* Problem Noted Date Diagnosed Date Resolved Date AAA (abdominal aortic aneurysm) 07/09/2014 11/25/2020 Overview: CT abd 06/2014 showing 4.4 x 4.2 cm AAA documented as of this encounter (statuses as of 10/24/2023) [facility] Author Jalen Nunez [facility] Note Date/Time March 12, 2025 4: 54pm [facility] Medical Records Department [address] [place] [address] Anesthesia Postop Eval I 03/12/251652 MR#: [id number] Acct: [id number] Name: PACO WHITNEY Rep #:[id number] : 1935 89 From: Jalen Nunez CRNA PCP: Dr. Clarice Murillo MD Status:AD M IN Y Race: C Location: [place] [address] Anesthesia: Postop Eval I Current Vital Signs [...] CRNA Cosigner Signature: Date CC: ~ Signed [facility] Work Phone: Consult note Author Erlin Vences [facility] Note Date/Time March 12, 2025 5: 53pm [facility] Medical Records Department [address] [place] [address] Anesthesia Postop Eval II 03/12/251712 MR#: [id number] Acct: [id number] Name: PACO WHITNEY Rep #:[id number] : 1935 89 From: Erlin Vences MD PCP: Dr. Clarice Murillo MD Status:AD M IN Y Race: C Location: [place] [address] 7- Anesthesia Postop Eval I Sum Postop Eval Completion status Anesthesia document: Postop Eval 1 completed: Yes Anesthesia Postop Eval I Summary Anesthesia Postop Eval I Summary: Anesthesia Postop Eval I: Assessment Summary Airway patent Yes 03/12/25 16:54 [email or web address] Spontaneous unlabored Yes 03/12/25 16:54 [email or web address] [email or web address] respirations Mental status Awake,Calm 03/12/25 16:54 [email or web address] nausea No 03/12/25 16:54 [email or web address] Vomiting No 03/12/25 16:54 [email or web address] Anesthesia Postop Eval I: Fluid Summary Crystalloid volume administer 100 03/12/25 16:54 [email or web address] (ml) Colloids volume administered ( ml) Blood Product volume administered (ml) Total IV fluid infused 100 03/12/25 16:54 [email or web address] Anesthesia Postop Eval I: Summary Notes Anesthesia Complication No 03/12/25 16:54 [email or web address] Anesthesia Complication Comment: Post-operative progress note Anesthesia: Postop Eval II Evaluation Mental status: Awake and Calm Pain Level: 0 nausea: No Vomiting: No Complications Anesthesia Complication: No 03/12/251712 <Electronically signed by Erlin fabian MD> Date _ Erlin Vences MD Cosigner Signature: Date CC: ~ Signed [facility] Work Phone: Discharge summary Author Jaspal Prasad [facility] Note Date/Time March 12, 2025 5: 30pm [facility] Medical Records Department [address] [place] [address] Discharge Summary 03/12/25 1715 MR#: [id number] Acct: [id number] Name: PACO WHITNEY Rep #:[id number] : 1935 89 From: Jaspal quevedo MD PCP: Dr. Clarice Murillo MD Status:[facility] IN Location: [place] [address] Providers Date of Admission: 03/10/25 Primary Care Physician: Dr. Clarice Murillo MD Consultations 03/10/25 20:18 Consult: Gastroenterology Routine Consulting Provider: [facility] Reason for Consult: lower GIB, h/o [...] is a 89 M who presented to [facility] 03/10/2025 with lower GI [...] here this week and is now at [place], and he has been on his normal routine and frequently going back and forth from home to the hospital [facility]. He has also been eating out with [...] (Auto) 70.3 H, Lymph % (Auto)16.7 L, [place] % (Auto) 9.7, Eos % (Auto) 2.2, [...] Jf Mack; Alessia Samuels; Samaria Carlin; Lauren Webebr Instructions Additional Instructions / Restrictions: Follow-up with [...] 04/08/25 9:30 am (NEW PATIENT APPOINTMENT WITH [facility] Disposition Disposition (needs filled in before D/C Order can be placed): Home, Self Care Charges/Coding Visit Charges Inpatient E&M: 35654 Disch Hosp >30min 03/12/25 1730 <Electronically signed by Jaspal Prasad MD> Cosigner Signature (if applicable): CC: Dr. Clarice Murillo MD; Dr. Jaspal Prasad MD~ Signed [facility] Work Phone: Evaluation note* Diagnosis [...] Vertebrobasilar artery syndrome documented in this encounter [facility] note* Diagnosis Tinea pedis of left foot Dermatophytosis of foot documented in this encounter [facility] note* Diagnosis Hyperlipidemia, unspecified hyperlipidemia type documented in this encounter [facility] note* Diagnosis Essential hypertension, benign- Primary Hyperlipidemia, [...] region and thigh documented in this encounter [facility] note* Diagnosis Acute exacerbation of chronic obstructive pulmonary disease (COPD) (HCC)- Primary Obstructive chronic bronchitis with exacerbation documented in this encounter [facility] note* Diagnosis Acute exacerbation of chronic obstructive pulmonary disease (COPD) (HCC) Obstructive chronic bronchitis with exacerbation documented in this encounter [facility] note* Diagnosis 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- Primary Lung nodules Other nonspecific abnormal finding of lung field Former cigarette smoker Personal history of tobacco use, presenting hazards to health documented in this encounter [facility] note* Diagnosis GERD without esophagitis Esophageal reflux documented in this encounter [facility] note* Diagnosis Acute pain of both shoulders- Primary Right renal mass Unspecified disorder of kidney and ureter Abdominal aortic aneurysm (AAA) without rupture, unspecified part (HCC) documented in this encounter [facility] note* Diagnosis Acute pain of both shoulders- Primary Right renal mass Unspecified disorder of kidney and ureter Abdominal aortic aneurysm (AAA) without rupture, unspecified part (HCC) documented in this encounter [facility] note* Diagnosis Bilateral shoulder pain, unspecified chronicity- Primary documented in this encounter [facility] note* Diagnosis Abdominal aortic aneurysm (AAA) without rupture, unspecified part (HCC) documented in this encounter [facility] note* Diagnosis Benign non-nodular prostatic hyperplasia with lower urinary tract symptoms- Primary Right renal mass Unspecified disorder of kidney and ureter documented in this encounter [facility] note* Diagnosis Chronic pain of both shoulders- Primary Pain in joint, shoulder region Acute pain of both shoulders Primary osteoarthritis of both shoulders [facility] Diagnosis BENIGN HYPERTENSION Essential hypertension, benign documented in this encounter [facility] note* Diagnosis Encounter for screening for cardiovascular disorders Screening for other and unspecified cardiovascular conditions [facility] Diagnosis Asthma with COPD with exacerbation (HCC)- Primary Chronic obstructive asthma with exacerbation Lung nodules Other nonspecific abnormal finding of lung field Former cigarette smoker Personal history of tobacco use, presenting hazards to health Abdominal aortic aneurysm (AAA) without rupture, unspecified part (HCC) [facility] Diagnosis Pre-operative examination- Primary Preoperative examination, [...] [facility] Diagnosis Procedure not carried out- Primary Procedure not carried out for other reasons documented [facility] Diagnosis Abdominal aortic aneurysm (AAA) without rupture, unspecified part (HCC)- Primary Peripheral arterial disease (HCC) Peripheral vascular disease, unspecified Primary hypertension Unspecified essential hypertension Elevated HDL Other symptoms involving cardiovascular system [facility] Diagnosis COPD with exacerbation (HCC)- Primary Obstructive chronic bronchitis with exacerbation Essential hypertension, benign Hyperlipidemia, unspecified hyperlipidemia type Abdominal aortic aneurysm (AAA) without rupture, unspecified part (HCC) GERD without esophagitis Esophageal reflux Acute pain of both shoulders Neuropathy Mononeuritis of unspecified site [facility] this [facility] Diagnosis Hyperlipidemia, unspecified hyperlipidemia type 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 Diagnosis Bilateral shoulder pain, unspecified chronicity documented in this [facility] Diagnosis Lung nodules Other nonspecific abnormal finding of lung field documented [facility] this [facility] Diagnosis Asthma-COPD overlap syndrome- Primary Lung [...] of unspecified site [facility] Diagnosis Bronchitis- Primary Bronchitis, not specified as acute or chronic GERD without esophagitis Esophageal reflux Essential hypertension, benign Abdominal aortic aneurysm (AAA) without rupture, unspecified part (HCC) Hyperlipidemia, unspecified hyperlipidemia type Neuropathy Mononeuritis of unspecified site Chronic obstructive pulmonary disease, unspecified COPD type (HCC) Acute pain of both shoulders [facility] Diagnosis BENIGN HYPERTENSION Essential hypertension, benign [facility]* Diagnosis Asthma-COPD overlap syndrome (HCC) documented [facility]* Diagnosis COPD with chronic bronchitis (HCC)- Primary Obstructive chronic bronchitis without exacerbation Right lower lobe lung mass Swelling, mass, or lump in chest ILD (interstitial lung disease) (HCC) Postinflammatory pulmonary fibrosis Former cigarette smoker Personal history of tobacco use, presenting hazards to health documented [facility] Diagnosis Essential hypertension, benign- Primary Hyperlipidemia, unspecified hyperlipidemia type Abdominal aortic aneurysm (AAA) without rupture, unspecified part (HCC) GERD without esophagitis Esophageal reflux Neuropathy Mononeuritis of unspecified site Chronic obstructive pulmonary disease, unspecified COPD type (HCC) Acute pain of both shoulders [facility]* Diagnosis Neuropathy- Primary Mononeuritis of unspecified site documented [facility] this [facility] Diagnosis Pre-operative examination- Primary Preoperative examination, [...] single bacterial disease [facility] this [facility]* Diagnosis Acute cough Pre-operative examination- Primary [...] Solitary pulmonary nodule documented [facility]* Diagnosis Pre-operative examination- Primary Preoperative examination, [...] documented [facility] Diagnosis Pre-operative examination- Primary Preoperative examination, [...] and behavioral disorders [facility] Diagnosis Pre-operative examination- Primary Preoperative examination, [...] unspecified chronicity- Primary documented in this encounter [facility] note* Diagnosis Pre-operative examination- Primary Preoperative examination, [...] esophagitis Esophageal reflux documented in this encounter [facility] note* Diagnosis Pre-operative examination- Primary Preoperative examination, [...] hazards to health documented in this encounter [facility] note* Diagnosis Pre-operative examination- Primary Preoperative examination, [...] overlap syndrome (HCC) documented in this encounter [facility] note* Diagnosis Pre-operative examination- Primary Preoperative examination, [...] asthma with exacerbation documented in this encounter [facility] note* Diagnosis Pre-operative examination- Primary Preoperative examination, [...] Essential hypertension, benign [facility] Diagnosis Pre-operative examination- Primary Preoperative examination, [...] Pedal edema Edema documented [facility] this [facility] Diagnosis Pre-operative examination- Primary Preoperative examination, [...] documented [facility] this [facility]* Diagnosis Pre-operative examination- Primary Preoperative examination, [...] osteoarthrosis, lower leg documented in this encounter [facility] note* Diagnosis Pre-operative examination- Primary Preoperative examination, [...] rectum and anus documented in this encounter [facility] note* Diagnosis Pre-operative examination- Primary Preoperative examination, [...] unspecified type- Primary documented in this encounter [facility] note* Diagnosis Pre-operative examination- Primary Preoperative examination, [...] documented in this [facility] Author Jf Mack [facility] Note Date/Time March 12, 2025 4: 26pm [facility] Medical Records Department [address] [place] [address] Progress Note 03/12/25 1624 MR#: [id number] Acct: [id number] Name: PACO WHITNEY Rep #:[id number] : 1935 89 From: Jf Mack DO PCP: Dr. Clarice Murillo MD Status:AD M IN Location: [place] [address] Progress Note Patient has been n.p.o. for [...] ASA of 3. Visit Charges Inpatient E&M: 49004 Subs Hosp L2 03/12/251625 <Electronically signed by fJ Mack DO> Jf Mack DO Cosigner Signature (if applicable): CC: ~ Signed [facility] Work Phone: Reason for referral (narrative)* Diagnostic Procedure Only (Routine) - Pending Review Specialty Diagnoses / Procedures Referred By Contac t Referred To Contact XR IMAGING Diagnoses Bilateral shoulder pain, unspecified chronicity Procedures XR SHOULDER GENERAL 3V OR MORE AP/TRUE AP/OTHER RIGHT RADEX SHOULDER COMPLETE MINIMUM 2 VIEWS Fabio Noriega MD [address] [place] [address] Xr Imaging Referral ID Status Reason Start Date Expiration Date Visits Requested Visits Authorized [id number] Pending Review Auto-Generat ed Referral 10/06/2022 11/05/2023 1 1 * Diagnostic Procedure Only (Routine) - Pending Review Specialty Diagnoses / Procedures Referred By Isaura t Referred To Contact XR IMAGING Diagnoses Bilateral shoulder pain, unspecified chronicity Procedures XR SHOULDER GENERAL 3V OR MORE AP/TRUE AP/OTHER LEFT RADEX SHOULDER COMPLETE MINIMUM 2 VIEWS Fabio Noriega MD [address] [place] [address] Xr Imaging Referral ID Status Reason Start Date Expiration Date Visits Requested Visits Authorized [id number] Pending Review Auto-Generat ed Referral 10/06/2022 11/05/2023 1 1 [facility] for referral (narrative)* Diagnostic Procedure Only (Routine) - Closed Specialty Diagnoses / Procedures Referred By Jose Ramonac t Referred To Contact MOLECULAR & FUNCTIONAL IMAGING Diagnoses Encounter for screening for cardiovascular disorders Procedures NM CARDIAC PERF STRESS/PHARM MYOCARDIAL SPECT MULTIPLE STUDIES Eladio Pablo MD [address] [place] [address] Molecular & Functional Imaging [address] [place] [address] Referral ID Status Reason Start Date Expiration Date V isits Requested Visits Authorized [id number] Closed Auto-Generate d Referral 11/17/2022 07/17/2023 1 1 [facility] for referral (narrative)* Outpatient Procedure (Routine) - Pending Review Specialty Diagnoses / Procedures [facility] Diagnoses Abdominal aortic aneurysm (AAA) without rupture, unspecified part (HCC) Procedures US ABD AORTA COMPLETE VAS LAB DUP-SCAN AORTA IVC ILIAC VASCL/BPGS COMPLETE Ibeth Paredes, ROPE SILICA MACHINE OPERATOR.RD SCIENTIST [address] [place] [address] [facility] [place] [address] [place] [address] Referral ID Status Reason Start Date Expiration Date Visits Requested Visits Authorized [id number] Pending Review Auto-Generat ed Referral 09/08/2023 03/07/2024 1 1 [facility] for referral (narrative)* Diagnostic Procedure Only (Routine) - Closed Specialty Diagnoses / Procedures Referred By Contac t Referred To Contact XR IMAGING Diagnoses Bilateral shoulder pain, unspecified chronicity Procedures XR SHOULDER GENERAL 3V OR MORE AP/TRUE AP/OTHER RIGHT RADEX SHOULDER COMPLETE MINIMUM 2 VIEWS Fabio Noriega MD [address] [place] [address] [place] [address] Referral ID Status Reason Start Date Expiration Date V isits Requested Visits Authorized [id number] Closed Auto-Generate d Referral 10/06/2022 11/05/2023 1 1 * Diagnostic Procedure Only (Routine) - Closed Specialty Diagnoses / Procedures Referred By Contac t Referred To Contact XR IMAGING Diagnoses Bilateral shoulder pain, unspecified chronicity Procedures XR SHOULDER GENERAL 3V OR MORE AP/TRUE AP/OTHER LEFT RADEX SHOULDER COMPLETE MINIMUM 2 VIEWS Fabio Noriega MD [address] [place] [address] [place] [address] Referral ID Status Reason Start Date Expiration Date V isits Requested Visits Authorized [id number] Closed Auto-Generate d Referral 10/06/2022 11/05/2023 1 1 [facility] for referral (narrative)* Diagnostic Procedure Only (Routine) - New Request Specialty Diagnoses / Procedures Referred By Contac t Referred To Contact XR IMAGING Diagnoses Bilateral shoulder pain, unspecified chronicity Procedures XR SHOULDER GENERAL 3V OR MORE AP/TRUE AP/OTHER RIGHT RADEX SHOULDER COMPLETE MINIMUM 2 VIEWS Fabio Noriega MD [address] [place] [address] [place] [address] Referral ID Status Reason Start Date Expiration Date Visits Requested Visits Authorized [id number] New Request Auto-Generat ed Referral 08/15/2024 09/14/2025 1 1 * Diagnostic Procedure Only (Routine) - New Request Specialty Diagnoses / Procedures Referred By Contac t Referred To Contact XR IMAGING Diagnoses Bilateral shoulder pain, unspecified chronicity Procedures XR SHOULDER GENERAL 3V OR MORE AP/TRUE AP/OTHER LEFT RADEX SHOULDER COMPLETE MINIMUM 2 VIEWS Fabio Noriega MD [address] [place] [address] [place] [address] Referral ID Status Reason Start Date Expiration Date Visits Requested Visits Authorized [id number] New Request Auto-Generat ed Referral 08/15/2024 09/14/2025 1 1 [facility] for visit Narrative* Diagnostic Procedure Only (Routine) - Closed Specialty Diagnoses / Procedures Referred By Contac t Referred To Contact MOLECULAR & FUNCTIONAL IMAGING Diagnoses Encounter for screening for cardiovascular disorders Procedures NM CARDIAC PERF STRESS/PHARM MYOCARDIAL SPECT MULTIPLE STUDIES Eladio Pablo MD [address] [place] [address] Molecular & Functional Imaging [address] [place] [address] Referral ID Status Reason Start Date Expiration Date V isits Requested Visits Authorized [id number] Closed Auto-Generate d Referral 11/17/2022 07/17/2023 1 1 [facility] for visit Narrative* Diagnostic Procedure Only (Routine) - Closed Specialty Diagnoses / Procedures Referred By Contac t Referred To Contact XR IMAGING Diagnoses Bilateral shoulder pain, unspecified chronicity Procedures XR SHOULDER GENERAL 3V OR MORE AP/TRUE AP/OTHER RIGHT RADEX SHOULDER COMPLETE MINIMUM 2 VIEWS Fabio Noriega MD [address] [place] [address] [place] [address] Referral ID Status Reason Start Date Expiration Date V isits Requested Visits Authorized [id number] Closed Auto-Generate d Referral 10/06/2022 11/05/2023 1 1 [facility] for visit Narrative* Diagnostic Procedure Only (Routine) - Closed Specialty Diagnoses / Procedures Referred By Contac t Referred To Contact XR IMAGING Diagnoses Chronic pain of both shoulders Procedures XR SHOULDER GENERAL 3V OR MORE AP/TRUE AP/OTHER LEFT RADEX SHOULDER COMPLETE MINIMUM 2 VIEWS Clarice Murillo MD [address] [place] [address] Phone: tel: fax: [place] [address] Referral ID Status Reason Start Date Expiration Date V isits Requested Visits Authorized [id number] Closed Auto-Generate d Referral 02/05/2025 03/07/2026 1 1 [facility] for visit Narrative* Diagnostic Procedure Only (Routine) - Closed Specialty Diagnoses / Procedures Referred By Contac t Referred To Contact XR IMAGING Diagnoses Primary osteoarthritis of right knee Procedures XR KNEE GENERAL 4V AP BOTH/PA BOTH/LAT/MERC RIGHT RADIOLOGIC EXAM KNEE COMPLETE 4/MORE VIEWS Ynes Souza PA-C [address] [place] [address] Phone: tel: fax: [place] [address] Referral ID Status Reason Start Date Expiration Date V isits Requested Visits Authorized [id number] Closed Auto-Generate d Referral 02/22/2025 03/24/2026 [address] 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 No November 08, 2024 9:03pm Advance Directives No March 10:29am Advance Directive Response Recorded Date/ Time Do you have a Healthcare Power of Narcotics Agent? No November 08, 2024 9:03pm Do you have a Healthcare Power of Narcotics Agent? No March 10, 2025 4:21pm Advance Directives No March 10:29am Advance Directive Response Recorded Date/ Time Do you have a Healthcare Power of Narcotics Agent? 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 Advance Directive(s) 03/28/2025 3:38 PM Health Concerns Infection Onset Date Last Indicated Resolved Time COVID-19 Rule-Out 06/08/2022 06/08/2022 06/09/2022 5:29 AM EST Reason for Referral Specialty Diagnoses / Procedures Referred By Contac t Referred To Contact CT IMAGING Diagnoses Lung nodules Procedures CT CHEST WO IVCON DIAGNOSTIC COMPUTED TOMOGRAPHY THORAX W/O CNTRSFrancia Clifton MD [address] [place] [address] Ct Imaging Referral ID Status Reason Start Date Expiration Date Visits Requested Visits Authorized [id number] Pending Review Auto-Generat ed Referral 08/05/2023 1 1 Specialty Diagnoses / Procedures Referred By Contac t Referred To Contact [facility] Diagnoses SOB (shortness of breath) Procedures SPIROMETRY WITH DILATOR IF OBSTRUCTED BRNCDILAT RSPSE SPMTRY PRE&POST-BRNCDILAT ADMFrancia Chase MD [address] [place] [address] Res[facility] [place] [address] [place] [address] Referral ID Status Reason Start Date Expiration Date V isits Requested Visits Authorized [id number] Closed Auto-Generate d Referral 07/06/2022 08/05/2023 1 1 Specialty Diagnoses / Procedures Referred By Contac t Referred To Contact Orthopedics Diagnoses Acute pain of both shoulders Procedures CONSULT TO ORTHOPAEDICS OFFICE/OUTPATIENT NEW HIGH MDM 60-74 MINUTES Karla Campuzano APRN.RD SCIENTIST [address] [place] [address] Referral ID Status Reason Start Date Expiration Date Visits Requested Visits Authorized [id number] Pending Review PCP Requested Referral 09/29/2022 09/29/2023 1 1 Specialty Diagnoses / Procedures Referred By Contac t Referred To Contact Urology Diagnoses Right renal mass Procedures CONSULT TO UROLOGY OFFICE/OUTPATIENT NEW HIGH MDM 60-74 MINUTES Karla Campuzano APRN.RD SCIENTIST [address] [place] [address] Referral ID Status Reason Start Date Expiration Date Visits Requested Visits Authorized [id number] Pending Review PCP Requested Referral 09/29/2022 09/29/2023 1 1 Specialty Diagnoses / Procedures Referred By Contac t Referred To Contact Vascular Surgery Diagnoses Abdominal aortic aneurysm (AAA) without rupture, unspecified part (HCC) Procedures CONSULT TO VASCULAR SURGERY OFFICE/OUTPATIENT NEW HIGH MDM 60-74 MINUTES Karla Campuzano APRN.RD SCIENTIST [address] [place] [address] Referral ID Status Reason Start Date Expiration Date Visits Requested Visits Authorized [id number] Pending Review PCP Requested Referral 09/29/2022 09/29/2023 1 1 Specialty Diagnoses / Procedures Referred By Contac t Referred To Contact CT IMAGING Diagnoses 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) Procedures CT ABD/PEL WO IVCON CT ABD & PELVIS W/O CONTRAST Briana Nolen, DO [address] [place] [address] Ct [facility] [place] [address] Referral ID Status Reason Start Date Expiration Date V isits Requested Visits Authorized [id number] Closed Auto-Generate d Referral 09/30/2022 07/17/2023 1 1 Specialty Diagnoses / Procedures Referred By Contac t Referred To Contact CT IMAGING Diagnoses 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) Procedures CTA ABD/PEL WO/W IVCON CT ANGIO ABD&PLVIS CNTRST MTRL W/WO CNTRST Eladio Mckoy MD [address] [place] [address] [place] [address] Referral ID Status Reason Start Date Expiration Date V isits Requested Visits Authorized [id number] Closed Auto-Generate d Referral 02/25/2023 07/17/2023 1 1 Specialty Diagnoses / Procedures Referred By Contac t Referred To Contact CT IMAGING Diagnoses Lung nodules Procedures CT CHEST WO IVCON DIAGNOSTIC COMPUTED TOMOGRAPHY THORAX W/O Francia Arredondo MD [address] [place] [address] [place] [address] Referral ID Status Reason Start Date Expiration Date V isits Requested Visits Authorized [id number] Closed Auto-Generat ed Referral Patient Cleared - [...] content) DATE CREATED AUTHOR [facility] DATE CREATED AUTHOR AUTHOR'S ORGANIZ ATION 12/18/2018 [facility] DATE CREATED AUTHOR AUTHOR'S ORGANIZ ATION 11/29/2022 [facility] DATE CREATED AUTHOR AUTHOR'S ORGANIZ ATION 02/01/2023 [facility] DATE CREATED AUTHOR AUTHOR'S ORGANIZ ATION 04/06/2025 [facility] DATE CREATED AUTHOR AUTHOR'S ORGANIZ ATION 05/01/2025 [facility] Source Comments (unrecognize d section and content) In the event this informatio n is protected by the Federal Confidentiality of Alcohol and Drug Abuse Patient Records regulations: The Federal rules restrict any use of the information to criminally investigate or prosecute any alcohol or drug abuse patient.[facility] the event this information is protected by the Federal Confidentiality of Alcohol and Drug Abuse Patient Records regulations: The Federal rules restrict any use of the information to criminally investigate or prosecute any alcohol or drug abuse patient.[facility] the event this information is protected by the Federal Confidentiality of Alcohol and Drug Abuse Patient Records regulations: The Federal rules restrict any use of the information to criminally investigate or prosecute any alcohol or drug abuse patient.[facility] the event this information is protected by the Federal Confidentiality of Alcohol and Drug Abuse Patient Records regulations: The Federal rules restrict any use of the information to criminally investigate or prosecute any alcohol or drug abuse patient.[facility] the event this information is protected by the Federal Confidentiality of Alcohol and Drug Abuse Patient Records regulations: The Federal rules restrict any use of the information to criminally investigate or prosecute any alcohol or drug abuse patient.[facility] the event this information is protected by the Federal Confidentiality of Alcohol and Drug Abuse Patient Records regulations: The Federal rules restrict any use of the information to criminally investigate or prosecute any alcohol or drug abuse patient.[facility] the event this information is protected by the Federal Confidentiality of Alcohol and Drug Abuse Patient Records regulations: The Federal rules restrict any use of the information to criminally investigate or prosecute any alcohol or drug abuse patient.[facility] the event this information is protected by the Federal Confidentiality of Alcohol and Drug Abuse Patient Records regulations: The Federal rules restrict any use of the information to criminally investigate or prosecute any alcohol or drug abuse patient.[facility] the event this information is protected by the Federal Confidentiality of Alcohol and Drug Abuse Patient Records regulations: The Federal rules restrict any use of the information to criminally investigate or prosecute any alcohol or drug abuse patient.[facility] the event this information is protected by the Federal Confidentiality of Alcohol and Drug Abuse Patient Records regulations: The Federal rules restrict any use of the information to criminally investigate or prosecute any alcohol or drug abuse patient.[facility] the event this information is protected by the Federal Confidentiality of Alcohol and Drug Abuse Patient Records regulations: The Federal rules restrict any use of the information to criminally investigate or prosecute any alcohol or drug abuse patient.[facility] the event this information is protected by the Federal Confidentiality of Alcohol and Drug Abuse Patient Records regulations: The Federal rules restrict any use of the information to criminally investigate or prosecute any alcohol or drug abuse patient.[facility] the event this information is protected by the Federal Confidentiality of Alcohol and Drug Abuse Patient Records regulations: The Federal rules restrict any use of the information to criminally investigate or prosecute any alcohol or drug abuse patient.[facility] the event this information is protected by the Federal Confidentiality of Alcohol and Drug Abuse Patient Records regulations: The Federal rules restrict any use of the information to criminally investigate or prosecute any alcohol or drug abuse patient.[facility] the event this information is protected by the Federal Confidentiality of Alcohol and Drug Abuse Patient Records regulations: The Federal rules restrict any use of the information to criminally investigate or prosecute any alcohol or drug abuse patient.[facility] the event this information is protected by the Federal Confidentiality of Alcohol and Drug Abuse Patient Records regulations: The Federal rules restrict any use of the information to criminally investigate or prosecute any alcohol or drug abuse patient.[facility] the event this information is protected by the Federal Confidentiality of Alcohol and Drug Abuse Patient Records regulations: The Federal rules restrict any use of the information to criminally investigate or prosecute any alcohol or drug abuse patient.[facility] the event this information is protected by the Federal Confidentiality of Alcohol and Drug Abuse Patient Records regulations: The Federal rules restrict any use of the information to criminally investigate or prosecute any alcohol or drug abuse patient.[facility] the event this information is protected by the Federal Confidentiality of Alcohol and Drug Abuse Patient Records regulations: The Federal rules restrict any use of the information to criminally investigate or prosecute any alcohol or drug abuse patient.[facility] the event this information is protected by the Federal Confidentiality of Alcohol and Drug Abuse Patient Records regulations: The Federal rules restrict any use of the information to criminally investigate or prosecute any alcohol or drug abuse patient.[facility] HospitalIn the event this information is protected by the Federal Confidentiality of Alcohol and Drug Abuse Patient Records regulations: The Federal rules restrict any use of the information to criminally investigate or prosecute any alcohol or drug abuse patient.[facility] HospitalIn the event this information is protected by the Federal Confidentiality of Alcohol and Drug Abuse Patient Records regulations: The Federal rules restrict any use of the information to criminally investigate or prosecute any alcohol or drug abuse patient.[facility] HospitalIn the event this information is protected by the Federal Confidentiality of Alcohol and Drug Abuse Patient Records regulations: The Federal rules restrict any use of the information to criminally investigate or prosecute any alcohol or drug abuse patient.[facility] HospitalIn the event this information is protected by the Federal Confidentiality of Alcohol and Drug Abuse Patient Records regulations: The Federal rules restrict any use of the information to criminally investigate or prosecute any alcohol or drug abuse patient.[facility] HospitalIn the event this information is protected by the Federal Confidentiality of Alcohol and Drug Abuse Patient Records regulations: The Federal rules restrict any use of the information to criminally investigate or prosecute any alcohol or drug abuse patient.[facility] HospitalIn the event this information is protected by the Federal Confidentiality of Alcohol and Drug Abuse Patient Records regulations: The Federal rules restrict any use of the information to criminally investigate or prosecute any alcohol or drug abuse patient.[facility] HospitalIn the event this information is protected by the Federal Confidentiality of Alcohol and Drug Abuse Patient Records regulations: The Federal rules restrict any use of the information to criminally investigate or prosecute any alcohol or drug abuse patient.[facility] HospitalIn the event this information is protected by the Federal Confidentiality of Alcohol and Drug Abuse Patient Records regulations: The Federal rules restrict any use of the information to criminally investigate or prosecute any alcohol or drug abuse patient.[facility] HospitalIn the event this information is protected by the Federal Confidentiality of Alcohol and Drug Abuse Patient Records regulations: The Federal rules restrict any use of the information to criminally investigate or prosecute any alcohol or drug abuse patient.[facility] HospitalIn the event this information is protected by the Federal Confidentiality of Alcohol and Drug Abuse Patient Records regulations: The Federal rules restrict any use of the information to criminally investigate or prosecute any alcohol or drug abuse patient.[facility] HospitalIn the event this information is protected by the Federal Confidentiality of Alcohol and Drug Abuse Patient Records regulations: The Federal rules restrict any use of the information to criminally investigate or prosecute any alcohol or drug abuse patient.[facility] HospitalIn the event this information is protected by the Federal Confidentiality of Alcohol and Drug Abuse Patient Records regulations: The Federal rules restrict any use of the information to criminally investigate or prosecute any alcohol or drug abuse patient.[facility] HospitalIn the event this information is protected by the Federal Confidentiality of Alcohol and Drug Abuse Patient Records regulations: The Federal rules restrict any use of the information to criminally investigate or prosecute any alcohol or drug abuse patient.[facility] HospitalIn the event this information is protected by the Federal Confidentiality of Alcohol and Drug Abuse Patient Records regulations: The Federal rules restrict any use of the information to criminally investigate or prosecute any alcohol or drug abuse patient.[facility] HospitalIn the event this information is protected by the Federal Confidentiality of Alcohol and Drug Abuse Patient Records regulations: The Federal rules restrict any use of the information to criminally investigate or prosecute any alcohol or drug abuse patient.[facility] HospitalIn the event this information is protected by the Federal Confidentiality of Alcohol and Drug Abuse Patient Records regulations: The Federal rules restrict any use of the information to criminally investigate or prosecute any alcohol or drug abuse patient.[facility] HospitalIn the event this information is protected by the Federal Confidentiality of Alcohol and Drug Abuse Patient Records regulations: The Federal rules restrict any use of the information to criminally investigate or prosecute any alcohol or drug abuse patient.[facility] HospitalIn the event this information is protected by the Federal Confidentiality of Alcohol and Drug Abuse Patient Records regulations: The Federal rules restrict any use of the information to criminally investigate or prosecute any alcohol or drug abuse patient.[facility] HospitalIn the event this information is protected by the Federal Confidentiality of Alcohol and Drug Abuse Patient Records regulations: The Federal rules restrict any use of the information to criminally investigate or prosecute any alcohol or drug abuse patient.[facility] HospitalIn the event this information is protected by the Federal Confidentiality of Alcohol and Drug Abuse Patient Records regulations: The Federal rules restrict any use of the information to criminally investigate or prosecute any alcohol or drug abuse patient.[facility] HospitalIn the event this information is protected by the Federal Confidentiality of Alcohol and Drug Abuse Patient Records regulations: The Federal rules restrict any use of the information to criminally investigate or prosecute any alcohol or drug abuse patient.[facility] HospitalIn the event this information is protected by the Federal Confidentiality of Alcohol and Drug Abuse Patient Records regulations: The Federal rules restrict any use of the information to criminally investigate or prosecute any alcohol or drug abuse patient.[facility] HospitalIn the event this information is protected by the Federal Confidentiality of Alcohol and Drug Abuse Patient Records regulations: The Federal rules restrict any use of the information to criminally investigate or prosecute any alcohol or drug abuse patient.[facility] HospitalIn the event this information is protected by the Federal Confidentiality of Alcohol and Drug Abuse Patient Records regulations: The Federal rules restrict any use of the information to criminally investigate or prosecute any alcohol or drug abuse patient.[facility] HospitalIn the event this information is protected by the Federal Confidentiality of Alcohol and Drug Abuse Patient Records regulations: The Federal rules restrict any use of the information to criminally investigate or prosecute any alcohol or drug abuse patient.[facility] HospitalIn the event this information is protected by the Federal Confidentiality of Alcohol and Drug Abuse Patient Records regulations: The Federal rules restrict any use of the information to criminally investigate or prosecute any alcohol or drug abuse patient.[facility] HospitalIn the event this information is protected by the Federal Confidentiality of Alcohol and Drug Abuse Patient Records regulations: The Federal rules restrict any use of the information to criminally investigate or prosecute any alcohol or drug abuse patient.[facility] HospitalIn the event this information is protected by the Federal Confidentiality of Alcohol and Drug Abuse Patient Records regulations: The Federal rules restrict any use of the information to criminally investigate or prosecute any alcohol or drug abuse patient.[facility] HospitalIn the event this information is protected by the Federal Confidentiality of Alcohol and Drug Abuse Patient Records regulations: The Federal rules restrict any use of the information to criminally investigate or prosecute any alcohol or drug abuse patient.[facility] HospitalIn the event this information is protected by the Federal Confidentiality of Alcohol and Drug Abuse Patient Records regulations: The Federal rules restrict any use of the information to criminally investigate or prosecute any alcohol or drug abuse patient.[facility] HospitalIn the event this information is protected by the Federal Confidentiality of Alcohol and Drug Abuse Patient Records regulations: The Federal rules restrict any use of the information to criminally investigate or prosecute any alcohol or drug abuse patient.[facility] HospitalIn the event this information is protected by the Federal Confidentiality of Alcohol and Drug Abuse Patient Records regulations: The Federal rules restrict any use of the information to criminally investigate or prosecute any alcohol or drug abuse patient.[facility] HospitalIn the event this information is protected by the Federal Confidentiality of Alcohol and Drug Abuse Patient Records regulations: The Federal rules restrict any use of the information to criminally investigate or prosecute any alcohol or drug abuse patient.[facility] HospitalIn the event this information is protected by the Federal Confidentiality of Alcohol and Drug Abuse Patient Records regulations: The Federal rules restrict any use of the information to criminally investigate or prosecute any alcohol or drug abuse patient.[facility] HospitalIn the event this information is protected by the Federal Confidentiality of Alcohol and Drug Abuse Patient Records regulations: The Federal rules restrict any use of the information to criminally investigate or prosecute any alcohol or drug abuse patient.[facility] HospitalIn the event this information is protected by the Federal Confidentiality of Alcohol and Drug Abuse Patient Records regulations: The Federal rules restrict any use of the information to criminally investigate or prosecute any alcohol or drug abuse patient.[facility] HospitalIn the event this information is protected by the Federal Confidentiality of Alcohol and Drug Abuse Patient Records regulations: The Federal rules restrict any use of the information to criminally investigate or prosecute any alcohol or drug abuse patient.[facility] HospitalIn the event this information is protected by the Federal Confidentiality of Alcohol and Drug Abuse Patient Records regulations: The Federal rules restrict any use of the information to criminally investigate or prosecute any alcohol or drug abuse patient.[facility] HospitalIn the event this information is protected by the Federal Confidentiality of Alcohol and Drug Abuse Patient Records regulations: The Federal rules restrict any use of the information to criminally investigate or prosecute any alcohol or drug abuse patient.[facility] HospitalIn the event this information is protected by the Federal Confidentiality of Alcohol and Drug Abuse Patient Records regulations: The Federal rules restrict any use of the information to criminally investigate or prosecute any alcohol or drug abuse patient.[facility] HospitalIn the event this information is protected by the Federal Confidentiality of Alcohol and Drug Abuse Patient Records regulations: The Federal rules restrict any use of the information to criminally investigate or prosecute any alcohol or drug abuse patient.[facility] HospitalIn the event this information is protected by the Federal Confidentiality of Alcohol and Drug Abuse Patient Records regulations: The Federal rules restrict any use of the information to criminally investigate or prosecute any alcohol or drug abuse patient.[facility] HospitalIn the event this information is protected by the Federal Confidentiality of Alcohol and Drug Abuse Patient Records regulations: The Federal rules restrict any use of the information to criminally investigate or prosecute any alcohol or drug abuse patient.[facility] HospitalIn the event this information is protected by the Federal Confidentiality of Alcohol and Drug Abuse Patient Records regulations: The Federal rules restrict any use of the information to criminally investigate or prosecute any alcohol or drug abuse patient.[facility] HospitalIn the event this information is protected by the Federal Confidentiality of Alcohol and Drug Abuse Patient Records regulations: The Federal rules restrict any use of the information to criminally investigate or prosecute any alcohol or drug abuse patient.[facility] HospitalIn the event this information is protected by the Federal Confidentiality of Alcohol and Drug Abuse Patient Records regulations: The Federal rules restrict any use of the information to criminally investigate or prosecute any alcohol or drug abuse patient.[facility] HospitalIn the event this information is protected by the Federal Confidentiality of Alcohol and Drug Abuse Patient Records regulations: The Federal rules restrict any use of the information to criminally investigate or prosecute any alcohol or drug abuse patient.[facility] HospitalIn the event this information is protected by the Federal Confidentiality of Alcohol and Drug Abuse Patient Records regulations: The Federal rules restrict any use of the information to criminally investigate or prosecute any alcohol or drug abuse patient.[facility] HospitalIn the event this information is protected by the Federal Confidentiality of Alcohol and Drug Abuse Patient Records regulations: The Federal rules restrict any use of the information to criminally investigate or prosecute any alcohol or drug abuse patient.[facility] HospitalIn the event this information is protected by the Federal Confidentiality of Alcohol and Drug Abuse Patient Records regulations: The Federal rules restrict any use of the information to criminally investigate or prosecute any alcohol or drug abuse patient.[facility] HospitalIn the event this information is protected by the Federal Confidentiality of Alcohol and Drug Abuse Patient Records regulations: The Federal rules restrict any use of the information to criminally investigate or prosecute any alcohol or drug abuse patient.[facility] HospitalIn the event this information is protected by the Federal Confidentiality of Alcohol and Drug Abuse Patient Records regulations: The Federal rules restrict any use of the information to criminally investigate or prosecute any alcohol or drug abuse patient.[facility] HospitalIn the event this information is protected by the Federal Confidentiality of Alcohol and Drug Abuse Patient Records regulations: The Federal rules restrict any use of the information to criminally investigate or prosecute any alcohol or drug abuse patient.[facility] HospitalIn the event this information is protected by the Federal Confidentiality of Alcohol and Drug Abuse Patient Records regulations: The Federal rules restrict any use of the information to criminally investigate or prosecute any alcohol or drug abuse patient.[facility] HospitalIn the event this information is protected by the Federal Confidentiality of Alcohol and Drug Abuse Patient Records regulations: The Federal rules restrict any use of the information to criminally investigate or prosecute any alcohol or drug abuse patient.[facility] HospitalIn the event this information is protected by the Federal Confidentiality of Alcohol and Drug Abuse Patient Records regulations: The Federal rules restrict any use of the information to criminally investigate or prosecute any alcohol or drug abuse patient.[facility] HospitalIn the event this information is protected by the Federal Confidentiality of Alcohol and Drug Abuse Patient Records regulations: The Federal rules restrict any use of the information to criminally investigate or prosecute any alcohol or drug abuse patient.[facility] HospitalIn the event this information is protected by the Federal Confidentiality of Alcohol and Drug Abuse Patient Records regulations: The Federal rules restrict any use of the information to criminally investigate or prosecute any alcohol or drug abuse patient.[facility] HospitalIn the event this information is protected by the Federal Confidentiality of Alcohol and Drug Abuse Patient Records regulations: The Federal rules restrict any use of the information to criminally investigate or prosecute any alcohol or drug abuse patient.[facility] HospitalIn the event this information is protected by the Federal Confidentiality of Alcohol and Drug Abuse Patient Records regulations: The Federal rules restrict any use of the information to criminally investigate or prosecute any alcohol or drug abuse patient.[facility] HospitalIn the event this information is protected by the Federal Confidentiality of Alcohol and Drug Abuse Patient Records regulations: The Federal rules restrict any use of the information to criminally investigate or prosecute any alcohol or drug abuse patient.[facility] HospitalIn the event this information is protected by the Federal Confidentiality of Alcohol and Drug Abuse Patient Records regulations: The Federal rules restrict any use of the information to criminally investigate or prosecute any alcohol or drug abuse patient.[facility] HospitalIn the event this information is protected by the Federal Confidentiality of Alcohol and Drug Abuse Patient Records regulations: The Federal rules restrict any use of the information to criminally investigate or prosecute any alcohol or drug abuse patient.[facility] HospitalIn the event this information is protected by the Federal Confidentiality of Alcohol and Drug Abuse Patient Records regulations: The Federal rules restrict any use of the information to criminally investigate or prosecute any alcohol or drug abuse patient.[facility] HospitalIn the event this information is protected by the Federal Confidentiality of Alcohol and Drug Abuse Patient Records regulations: The Federal rules restrict any use of the information to criminally investigate or prosecute any alcohol or drug abuse patient.[facility] HospitalIn the event this information is protected by the Federal Confidentiality of Alcohol and Drug Abuse Patient Records regulations: The Federal rules restrict any use of the information to criminally investigate or prosecute any alcohol or drug abuse patient.[facility] HospitalIn the event this information is protected by the Federal Confidentiality of Alcohol and Drug Abuse Patient Records regulations: The Federal rules restrict any use of the information to criminally investigate or prosecute any alcohol or drug abuse patient.[facility] HospitalIn the event this information is protected by the Federal Confidentiality of Alcohol and Drug Abuse Patient Records regulations: The Federal rules restrict any use of the information to criminally investigate or prosecute any alcohol or drug abuse patient.[facility] HospitalIn the event this information is protected by the Federal Confidentiality of Alcohol and Drug Abuse Patient Records regulations: The Federal rules restrict any use of the information to criminally investigate or prosecute any alcohol or drug abuse patient.[facility] HospitalIn the event this information is protected by the Federal Confidentiality of Alcohol and Drug Abuse Patient Records regulations: The Federal rules restrict any use of the information to criminally investigate or prosecute any alcohol or drug abuse patient.[facility] HospitalIn the event this information is protected by the Federal Confidentiality of Alcohol and Drug Abuse Patient Records regulations: The Federal rules restrict any use of the information to criminally investigate or prosecute any alcohol or drug abuse patient.[facility] HospitalIn the event this information is protected by the Federal Confidentiality of Alcohol and Drug Abuse Patient Records regulations: The Federal rules restrict any use of the information to criminally investigate or prosecute any alcohol or drug abuse patient.[facility] HospitalIn the event this information is protected by the Federal Confidentiality of Alcohol and Drug Abuse Patient Records regulations: The Federal rules restrict any use of the information to criminally investigate or prosecute any alcohol or drug abuse patient.[facility] Reason for Visit (unrecogniz ed section [...] dickey Referred To Contact Vascular Surgery / [facility] Diagnoses Abdominal aortic aneurysm (AAA) without rupture, unspecified part (HCC) Procedures CONSULT TO VASCULAR SURGERY OFFICE/OUTPATIENT NEW HIGH MDM 60-74 MINUTES Karla Campuzano, [employer] MACHINE OPERATOR.RD SCIENTIST [address] [place] [address] [address] [facility] [address] [address] Referral ID Status Reason Start Date Expiration Date Visits Requested Visits Authorized [id number] Pending Review PCP Requested Referral 09/29/2022 09/29/2023 1 1 Reason Comments Patient Question Reason Comments Established Patient Renal mass Specialty Diagnoses / Procedures Referred By Contac t Referred To Contact Urology Diagnoses Right renal mass Procedures CONSULT TO UROLOGY OFFICE/OUTPATIENT NEW HIGH MDM 60-74 MINUTES Karla Campuzano APRN.RD SCIENTIST [address] [place] [address] Referral ID Status Reason Start Date Expiration Date Visits Requested Visits Authorized [id number] Pending Review PCP Requested Referral 09/29/2022 09/29/2023 1 1 Reason Comments Pain New Specialty Diagnoses / Procedures Referred By Contac t Referred To Contact Orthopedics Diagnoses Acute pain of both shoulders Procedures CONSULT TO ORTHOPAEDICS OFFICE/OUTPATIENT NEW HIGH MDM 60-74 MINUTES Karla Campuzano APRN.CNP [address] [place] [address] Referral ID Status Reason Start Date Expiration Date Visits Requested Visits Authorized [id number] Pending Review PCP Requested Referral 09/29/2022 09/29/2023 [...] CONTRAST Briana Nolen, DO [address] [place] [address] [place] [address] Referral ID Status Reason Start Date Expiration Date V isits Requested Visits Authorized [id number] Closed Auto-Generate d Referral 09/30/2022 07/17/2023 1 1 Specialty Diagnoses / Procedures Referred By Contac t Referred To Contact CT IMAGING Diagnoses 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) Procedures CTA ABD/PEL WO/W IVCON CT ANGIO ABD&PLVIS CNTRST MTRL W/WO CNTRST Eladio Mckoy MD [address] [place] [address] [place] [address] Referral ID Status Reason Start Date Expiration Date V isits Requested Visits Authorized [id number] Closed Auto-Generate d Referral 02/25/2023 07/17/2023 1 1 Specialty Diagnoses / Procedures Referred By Contac t Referred To Contact CT IMAGING Diagnoses Lung nodules Procedures CT CHEST WO IVCON DIAGNOSTIC COMPUTED TOMOGRAPHY THORAX W/O CNTRST Francia Luna MD [address] [place] [address] [place] [address] Referral ID Status Reason Start Date Expiration Date V isits Requested Visits Authorized [id number] Closed Auto-Generat ed Referral Patient Cleared - [...] Care Teams (unrecognized sec tion and content) Sewing Department Supervisor Relationship Specialty Start Date End Date Clarice Murillo MD [address] [place], [place] [id number] PCP - General 02/07/09 Marianne Balderas RN Shoder Filler 03/19/21 Manuel Bravo MD [address] [id number] [facility] 06/01/21 Sewing Department Supervisor Relationship Specialty Start Date End Date Clarice Murillo MD [address] [place], [place] 769841 PCP - General 02/07/09 Marianne Balderas RN [address] [place], [place] [id number] Shoder Filler 03/19/21 Manuel Bravo MD [address] [id number] [facility] 06/01/21 Sewing Department Supervisor Relationship Specialty Start Date End Date Clarice Murillo MD [address] [place] [address] PCP - General 02/07/09 Marianne Balderas, RUBEN [address] [place], [place] [id number] Shoder Filler 03/19/21 Manuel Bravo MD [address] [id number] [facility] 06/01/21 Sewing Department Supervisor Relationship Specialty Start Date End Date Clarice Murillo MD [address] [place] [address] PCP - General 02/07/09 Marianne Balderas RN [address] [place] [address] Shoder Filler 03/19/21 Manuel Bravo MD [address] [id number] [facility] 06/01/21 Sewing Department Supervisor Relationship Specialty Start Date End Date Clarice Murillo MD [address] [place] [address] PCP - General 02/07/09 Marianne Balderas RN [address] [place] [address] Shoder Filler 03/19/21 Manuel Bravo MD [address] [id number] [facility] 06/01/21 Sewing Department Supervisor Relationship Specialty Start Date End Date Clarice Murillo MD [address] [place] [address] PCP - General 02/07/09 Marianne Balderas RN [address] [facility], [place] [phone] Shoder Filler 03/19/21 Manuel Bravo MD [address] [address] [facility] 06/01/21 Sewing Department Supervisor Relationship Specialty Start Date End Date Clarice Murillo MD [address] [place] [address] PCP - General 02/07/09 Marianne Balderas RN [address] [place], [place] 8908231 Shoder Filler 03/19/21 Manuel Bravo MD [address] [id number] [facility] 06/01/21 Sewing Department Supervisor Relationship Specialty Start Date End Date Clarice Murillo MD [address] [place] [address] PCP - General 02/07/09 Manuel Bravo MD [address] [address] [facility] 06/01/21 Adriel Vides RN [address] [place], [place] [id number] [facility] 03/19/21 Sewing Department Supervisor Relationship Specialty Start Date End Date Clarice Murillo MD [address] [place], [place] [id number] PCP - General 02/07/09 Manuel Bravo MD [address] [address] [facility] 06/01/21 Adriel Vides RN [address] [place] [address] [facility] 03/19/21 Sewing Department Supervisor Relationship Specialty Start Date End Date Clarice Murillo MD [address] [place], [place] 507599 [phone] PCP - General 02/07/09 Manuel Bravo MD [address] [address] [facility] 06/01/21 Adriel Vides RN [address] [place], [place] 5576031 Shoder Filler [facility] 03/19/21 Sewing Department Supervisor Relationship Specialty Start Date End Date Clarice Murillo MD [address] [place] [address] PCP - General 02/07/09 Manuel Bravo MD [address] [id number] [facility] 06/01/21 Adriel Vides RN [address] [place], [place] 6431431 Shoder Filler [facility] 05/19/22 Sewing Department Supervisor Relationship Specialty Start Date End Date Clarice Murillo MD [address] [place] [address] PCP - General 02/07/09 Manuel Bravo MD [address] [id number] [facility] 06/01/21 Adriel Vides RN [address] [place], [place] 2406931 Shoder Filler [facility] 05/19/22 Sewing Department Supervisor Relationship Specialty Start Date End Date Clarice Murillo MD [address] [place] [address] PCP - General 02/07/09 Manuel Bravo MD [address] [id number] [facility] 06/01/21 Adriel Vides RN [address] [place], [place] [id number] Shoder Filler [facility] 05/19/22 Sewing Department Supervisor Relationship Specialty Start Date End Date Clarice Murillo MD [address] [place] [address] PCP - General 02/07/09 Manuel Bravo MD [address] [id number] [facility] 06/01/21 Adriel Vides RN [address] [place], [place] [id number] [facility] 05/19/22 Sewing Department Supervisor Relationship Specialty Start Date End Date Clarice Murillo MD [address] [place], [place] 607472 [phone] PCP - General 02/07/09 Manuel Bravo MD [facility] [address] [id number] [facility] 06/01/21 Adriel Vides RN [address] [place] [address] [facility] 05/19/22 Sewing Department Supervisor Relationship Specialty Start Date End Date Clarice Murillo MD [address] [place], [place] 808151 PCP - General 02/07/09 Manuel Bravo MD [address] [id number] [facility] 06/01/21 Adriel Vides RN [address] [place], [place] 0746331 [facility] 05/19/22 Sewing Department Supervisor Relationship Specialty Start Date End Date Clarice Murillo MD [address] [place], [place] [id number] PCP - General 02/07/09 Manuel Bravo MD [facility] [address] [id number] [facility] 06/01/21 Adriel Vides RN [address] [place] [address] [facility] 05/19/22 Sewing Department Supervisor Relationship Specialty Start Date End Date Clarice Murillo MD [address] [place] [address] PCP - General 02/07/09 Manuel Bravo MD [address] [id number] [facility] 06/01/21 Adriel Vides RN [address] [place], [place] 2728431 [facility] 05/19/22 Sewing Department Supervisor Relationship Specialty Start Date End Date Clarice Murillo MD [address] [place], [place] 265381 PCP - General 02/07/09 Manuel Bravo MD [address] [id number] [facility] 06/01/21 Adriel Vides RN [address] [place], [place] [id number] Shoder Filler [facility] 05/19/22 Sewing Department Supervisor Relationship Specialty Start Date End Date Clarice Murillo MD [address] [place] [address] PCP - General 02/07/09 Manuel Bravo MD [address] [id number] [facility] 06/01/21 Adriel Vides RN [address] [place], [place] 8466031 [facility] 05/19/22 Sewing Department Supervisor Relationship Specialty Start Date End Date Clarice Murillo MD [address] [place] [address] PCP - General 02/07/09 Manuel Bravo MD [address] [id number] [facility] 06/01/21 Adriel Vides RN [address] [place], [place] 2737231 [facility] 05/19/22 Sewing Department Supervisor Relationship Specialty Start Date End Date Clarice Murillo MD [address] [place] [address] PCP - General 02/07/09 Manuel Bravo MD [address] [address] [facility] 06/01/21 Adriel Vides RN [address] [place], [place] 7542731 Shoder Filler [facility] 05/19/22 Sewing Department Supervisor Relationship Specialty Start Date End Date Clarice Murillo MD [address] [place] [address] PCP - General 02/07/09 Manuel Bravo MD [address] [address] [facility] 06/01/21 Adriel Vides RN [address] [place], [place] 0663531 Shoder Filler [facility] 05/19/22 Sewing Department Supervisor Relationship Specialty Start Date End Date Clarice Murillo MD [address] [place], [place] 55939204 [phone] PCP - General 02/07/09 Manuel Bravo MD [address] [address] [facility] 06/01/21 Adriel Vides RN [address] [place] [address] Shoder Filler [facility] 05/19/22 Sewing Department Supervisor Relationship Specialty Start Date End Date Clarice Murillo MD [address] [place], [place] 816171 [phone] PCP - General 02/07/09 Manuel Bravo MD [address] [address] [facility] 06/01/21 Adriel Vides RN [address] [place], [place] 4987531 Shoder Filler [facility] 05/19/22 Sewing Department Supervisor Relationship Specialty Start Date End Date Clarice Murillo MD [address] [place] [address] PCP - General 02/07/09 Manuel Bravo MD [address] [address] [facility] 06/01/21 Adriel Vides RN [address] [place], [place] 0974731 Shoder Filler [facility] 05/19/22 Sewing Department Supervisor Relationship Specialty Start Date End Date Clarice Murillo MD [address] [place] [address] PCP - General 02/07/09 Manuel Bravo MD [address] [id number] [facility] 06/01/21 Adriel Vides RN [address] [place], [place] 1320731 Shoder Filler [facility] 05/19/22 Sewing Department Supervisor Relationship Specialty Start Date End Date Clarice Murillo MD [address] [place] [address] PCP - General 02/07/09 Manuel Bravo MD [address] [id number] [facility] 06/01/21 Adriel Vides RN [address] [place] [address] [facility] 05/19/22 Sewing Department Supervisor Relationship Specialty Start Date End Date Clarice Murillo MD [address] [place] [address] PCP - General 02/07/09 Manuel Bravo MD [address] [address] [facility] 06/01/21 Adriel Vides RN [address] [place], [place] [id number] [facility] 05/19/22 Sewing Department Supervisor Relationship Specialty Start Date End Date Clarice Murillo MD [address] [place] [address] PCP - General 02/07/09 Manuel Bravo MD [address] [address] [facility] 06/01/21 Adriel Vides RN [address] [place], [place] [id number] [facility] 05/19/22 Sewing Department Supervisor Relationship Specialty Start Date End Date Clarice Murillo MD [address] [place] [address] PCP - General 02/07/09 Manuel Bravo MD [address] [id number] [facility] 06/01/21 Adriel Vides RN [address] [place] [address] [facility] 05/19/22 Sewing Department Supervisor Relationship Specialty Start Date End Date Clarice Murillo MD [address] [place] [address] PCP - General 02/07/09 Manuel Bravo MD [address] [address] [facility] 06/01/21 Adriel Vides RN [address] [place], [place] 9624431 [facility] 05/19/22 Sewing Department Supervisor Relationship Specialty Start Date End Date Clarice Murillo MD [address] [place] [address] PCP - General 02/07/09 Manuel Bravo MD [address] [id number] [facility] 06/01/21 Adriel Vides RN [address] [place] [address] [facility] 05/19/22 Sewing Department Supervisor Relationship Specialty Start Date End Date Clarice Murillo MD [address] [place] [address] PCP - General 02/07/09 Manuel Bravo MD [address] [id number] [facility] 06/01/21 Adriel Vides RN [address] [place] [id number] [facility] 05/19/22 Sewing Department Supervisor Relationship Specialty Start Date End Date Clarice Murillo MD [address] [place], [place] 546401 PCP - General 02/07/09 Manuel Bravo MD [address] [id number] [facility] 06/01/21 Adriel Vides RN [address] [place], [place] 3409231 [facility] 05/19/22 Sewing Department Supervisor Relationship Specialty Start Date End Date Clarice Murillo MD [address] [place] [address] PCP - General 02/07/09 Manuel Bravo MD [address] [address] [facility] 06/01/21 Adriel Vides RN [address] [place] [address] [facility] 05/19/22 Sewing Department Supervisor Relationship Specialty Start Date End Date Clarice Murillo MD [address] [place] [address] PCP - General 02/07/09 Manuel Bravo MD [address] [id number] [facility] 06/01/21 Adriel Vides RN [address] [place], [place] [id number] Shoder Filler [facility] 05/19/22 Sewing Department Supervisor Relationship Specialty Start Date End Date Clarice Murillo MD [address] [place] [address] PCP - General 02/07/09 Manuel Bravo MD [address] [id number] [facility] 06/01/21 Adriel Vides RN [address] [place] [address] [facility] 05/19/22 Sewing Department Supervisor Relationship Specialty Start Date End Date Clarice Murillo MD [address] [place] [address] PCP - General 02/07/09 Manuel Bravo MD [address] [address] [facility] 06/01/21 Adriel Vides RN [address] [place], [place] [id number] [facility] 05/19/22 Sewing Department Supervisor Relationship Specialty Start Date End Date Clarice Murillo MD [address] [place] [address] PCP - General 02/07/09 Manuel Bravo MD [facility] [address] [id number] [facility] 06/01/21 Adriel Vides RN [address] [place] [address] [facility] 05/19/22 Sewing Department Supervisor Relationship Specialty Start Date End Date Clarice Murillo MD [address] [place] [address] PCP - General 02/07/09 Manuel Bravo MD [facility] [address] [address] [facility] 06/01/21 Adriel Vides RN [address] [place] [address] [facility] 05/19/22 Sewing Department Supervisor Relationship Specialty Start Date End Date Clarice Murillo MD [address] [place] [address] PCP - General 02/07/09 Manuel Bravo MD [address] [address] [facility] 06/01/21 Adriel Vides RN [address] [place], [place] 5195831 Shoder Filler [facility] 05/19/22 Sewing Department Supervisor Relationship Specialty Start Date End Date Clarice Murillo MD [address] [place] [address] PCP - General 02/07/09 Manuel Bravo MD [address] [id number] [facility] 06/01/21 Adriel Vides RN [address] [place] [address] [facility] 05/19/22 Sewing Department Supervisor Relationship Specialty Start Date End Date Clarice Murillo MD [address] [place] [address] PCP - General 02/07/09 Manuel Bravo MD [address] [address] [facility] 06/01/21 Adriel Vides RN [address] [place], [place] [id number] Shoder Filler [facility] 05/19/22 Sewing Department Supervisor Relationship Specialty Start Date End Date Clarice Murillo MD [address] [place] [address] PCP - General 02/07/09 Manuel Bravo MD [address] [id number] [facility] 06/01/21 Adriel Vides RN [address] [place], [place] 2197431 [facility] 05/19/22 Sewing Department Supervisor Relationship Specialty Start Date End Date Clarice Murillo MD [address] [place] [address] PCP - General 02/07/09 Manuel Bravo MD [address] [address] [facility] 06/01/21 Adriel Vides RN [address] [place] [address] [facility] 05/19/22 Sewing Department Supervisor Relationship Specialty Start Date End Date Clarice Murillo MD [address] [place] [address] PCP - General 02/07/09 Manuel Bravo MD [address] [id number] [facility] 06/01/21 Adriel Vides RN [address] [place], [place] 9821031 [facility] 05/19/22 Sewing Department Supervisor Relationship Specialty Start Date End Date Clarice Murillo MD [address] [place] [address] PCP - General 02/07/09 Manuel Bravo MD [address] [id number] [facility] 06/01/21 Adriel Vides RN [address] [place] [address] [facility] 05/19/22 Sewing Department Supervisor Relationship Specialty Start Date End Date Clarice Murillo MD [address] [place] [address] PCP - General 02/07/09 Manuel Bravo MD [address] [id number] [facility] 06/01/21 Adriel Vides RN [address] [place] [id number] [facility] 05/19/22 Sewing Department Supervisor Relationship Specialty Start Date End Date Clarice Murillo MD [address] [place], [place] 662191 PCP - General 02/07/09 Manuel Bravo MD [address] [id number] [facility] 06/01/21 Adriel Vides RN [address] [place] [id number] [facility] 05/19/22 Sewing Department Supervisor Relationship Specialty Start Date End Date Clarice Murillo MD [address] [place] [address] PCP - General 02/07/09 Manuel Bravo MD [address] [id number] [facility] 06/01/21 Karla Campuzano, ROPE SILICA MACHINE OPERATOR.RD SCIENTIST [address] [place] [address] Hr Business Partner Consultant Family [facility] 06/24/24 Sid Frank, ROSS.RD SCIENTIST [address] [place] [address] Hr Business Partner Consultant [facility] 07/03/24 Sewing Department Supervisor Relationship Specialty Start Date End Date Clarice Murillo MD [address] [facility] [place] [address] PCP - General 02/07/09 Manuel Bravo MD [address] [address] [facility] 06/01/21 Karla Campuzano ROPE SILICA MACHINE OPERATOR.RD SCIENTIST [address] [place] [address] Hr Business Partner Consultant Family [facility] 06/24/24 Sid Frank APRN.RD SCIENTIST [address] [place] [address] Hr Business Partner Consultant [facility] 07/03/24 Sewing Department Supervisor Relationship Specialty Start Date End Date Clarice Murillo MD [address] [facility] [place] [address] PCP - General 02/07/09 Manuel Bravo MD [address] [address] [facility] 06/01/21 Karla Campuzano ROPE SILICA MACHINE OPERATOR.RD SCIENTIST [address] [place] [address] Hr Business Partner Consultant Family Medicine 06/24/24 Sid Frank APRN.RD SCIENTIST [address] [facility] [place] [address] Hr Business Partner Consultant [facility] 07/03/24 Sewing Department Supervisor Relationship Specialty Start Date End Date Clarice Murillo MD [address] [place] [address] PCP - General 02/07/09 Manuel Bravo MD [address] [address] [facility] 06/01/21 Karla Campuzano ROPE SILICA MACHINE OPERATOR.RD SCIENTIST [address] [address] Hr Business Partner Consultant [facility] 06/24/24 Sid Frank ROPE SILICA MACHINE OPERATOR.RD SCIENTIST [address] [place] [address] [facility] 07/03/24 Sewing Department Supervisor Relationship Specialty Start Date End Date Clarice Murillo MD [address] [place] [address] PCP - General 02/07/09 Manuel Bravo MD [address] [address] [facility] 06/01/21 Karla Campuzano APRN.RD SCIENTIST [address] [address] [facility]r [facility] 06/24/24 Sid Frank ROPE SILICA MACHINE OPERATOR.RD SCIENTIST [address] [place] [address] [facility] 07/03/24 Team Status: Active Member Role Status [...] Provider Active Sta rt: November 10, 2024 Sewing Department Supervisor Relationship Specialty Start Date End Date Clarice Murillo MD [address] [place] [address] PCP - General 02/07/09 Manuel Bravo MD [address] [id number] [facility] 06/01/21 Karla Campuzano, ROPE SILICA MACHINE OPERATOR.RD SCIENTIST [address] [address] Hr Business Partner Consultant Family Medicine 06/24/24 Sid Frank ROPE SILICA MACHINE OPERATOR.RD SCIENTIST [address] [place] [address] Hr Business Partner Consultant [facility] 07/03/24 Sewing Department Supervisor Relationship Specialty Start Date End Date Clarice Murillo MD [address] [place] [address] PCP - General 02/07/09 Manuel Bravo MD [address] [address] [facility] 06/01/21 Sid Frank ROPE SILICA MACHINE OPERATOR.RD SCIENTIST [address] [place] [address] Hr Business Partner Consultant [facility] 07/03/24 Sewing Department Supervisor Relationship Specialty Start Date End Date Clarice Murillo MD [address] [place] [address] PCP - General 02/07/09 Manuel Bravo MD [address] [address] [facility] 06/01/21 Sid Frank APRN.RD SCIENTIST [address] [place] [address] [facility] 07/03/24 Sewing Department Supervisor Relationship Specialty Start Date End Date Clarice Murillo MD [address] [place] [address] PCP - General 02/07/09 Manuel Bravo MD [address] [address] [facility] 06/01/21 Sid Frank APRN.RD SCIENTIST [address] [place] [address] [facility] 07/03/24 Sewing Department Supervisor Relationship Specialty Start Date End Date Clarice Murillo MD [address] [place] [address] PCP - General 02/07/09 Manuel Bravo MD [address] [address] [facility] 06/01/21 Sid Frank ROPE SILICA MACHINE OPERATOR.RD SCIENTIST [address] [place] [address] Hr Business Partner Consultant [facility] 07/03/24 Team Status: Active Member [...] Provider Active Star t: March 12, 2025 Sewing Department Supervisor Relationship Specialty Start Date End Date Clarice Murillo MD [address] [place] [address] PCP - General 02/07/09 Manuel Bravo MD [address] [phone] [facility] 06/01/21 Sid Frank, ROSS.RD SCIENTIST [address] [place] [address] Hr Business Partner Consultant [facility] 07/03/24 Sewing Department Supervisor Relationship Specialty Start Date End Date Clarice Murillo MD [address] [place] [address] PCP - General 02/07/09 Manuel Bravo MD [address] [id number] [facility] 06/01/21 Sid Frank APRN.RD SCIENTIST [address] [place], [place] [id number] [facility] 07/03/24 Sewing Department Supervisor Relationship Specialty Start Date End Date Clarice Murillo MD [address] [facility] [place] [id number] PCP - General 02/07/09 Manuel Bravo MD [address] [id number] [facility] 06/01/21 Sid Frank APRN.RD SCIENTIST [address] [facility] [place] [id number] [facility] 07/03/24 FOR RECORDS PERTAINING TO PATIENTS WHO [...] BE BASED ON THE PRIMARY CLINICAL RECORDS. [facility] [employer] provides no warranty or guarantee of the accuracy or completeness of information in this document.
--- NOTE | 2025-05-19 19:53 | ECHOD_ITS ---
Reason For Study Reason For Study: CHEST PAIN Procedure This was a 2D Doppler, Color Flow transthoracic echocardiogram. The study was technically difficult. Exam performed in department. Left Ventricle Normal LV size. The left ventricular ejection fraction is 50 %. Stage 1 diastolic dysfunction. Right Ventricle Normal RV size. Normal systolic function. Atria The left and right atria are normal. Mitral Valve Mild mitral valve prolapse. Mild (1+) eccentric mitral valve insufficiency. Tricuspid Valve Normal tricuspid valve. Trivial tricuspid valve insufficiency. Pulmonary artery systolic pressure is 29 mmHg. Aortic Valve Trisinus/trileaflet aortic valve. Mild diffuse aortic valve thickening. Aortic sclerosis, no stenosis. Pulmonic Valve Normal pulmonic valve. Trivial pulmonic valve insufficiency. Great Vessels Mildly dilated aortic root. Pericardium/Pleural No pericardial effusion. MMode/2D Measurements & Calculations LVIDd: 4.6 cm IVSd: 1.1 cm LVOT diam: 2.3 cm LVIDs: 3.3 cm LVPWd: 1.0 cm LVOT area: 4.3 cm2 RVDd: 3.4 cm FS: 27.7 % asc Aorta Diam: 4.3 cm LAV(MOD-bp): 45.7 ml LVAd ap4: 28.8 cm2 LAV(MOD-bp) Indexed: 23.6 ml/m2 LVLd ap4: 8.1 cm LAV(MOD-sp2): 48.3 ml EDV(MOD-sp4): 83.2 ml LAV(MOD-sp4): 42.0 ml EDV(sp4-el): 86.8 ml LVAs ap4: 19.7 cm2 LVLs ap4: 7.3 cm ESV(MOD-sp4): 43.5 ml ESV(sp4-el): 44.8 ml EF(MOD-sp4): 47.7 % EF(sp4-el): 48.4 % LVAd ap2: 26.1 cm2 SV(MOD-sp4): 39.7 ml SV(MOD-sp2): 37.9 ml LVLd ap2: 7.9 cm SI(MOD-sp4): 20.5 ml/m2 SI(MOD-sp2): 19.5 ml/m2 EDV(MOD-sp2): 71.7 ml EDV(sp2-el): 73.4 ml LVAs ap2: 17.1 cm2 LVLs ap2: 7.1 cm ESV(MOD-sp2): 33.9 ml ESV(sp2-el): 34.8 ml EF(MOD-sp2): 52.8 % SV(sp4-el): 42.0 ml Ao sinus diam: 3.[address] Junction: 3.3 cm LA dimension(2D): 4.0 cm LA A4 area: 16.9 cm2 RA A4 area: 15.5 cm2 TAPSE: 1.7 cm Time Measurements MV dec time: 0.26 sec Doppler Measurements & Calculations MV E max mikey: 51.3 cm/sec Lat Peak E' Mikey: 9.0 cm/sec Med Peak E' Mikey: 5.1 cm/sec MV A max mikey: 78.2 cm/sec E/E' lat: 5.7 E/E' med: 10.1 MV E/A: 0.66 MV dec slope: 195.8 cm/sec2 Ao V2 max: 140.3 cm/sec LV V1 max: 96.2 cm/sec Ao max P.9 mmHg LV V1 max P.7 mmHg Ao V2 mean: 88.9 cm/sec LV V1 mean P.3 mmHg Ao mean P.8 mmHg LV V1 mean: 73.2 cm/sec Ao V2 VTI: 28.3 cm LV V1 VTI: 19.9 cm AV (velocity ratio): 0.70 ASHLYN(I,D): 3.0 cm2 ASHLYN(V,D): 3.0 cm2 SV(LVOT): 85.7 ml PA V2 max: 94.1 cm/sec TR max mikey: 257.6 cm/sec TR max P.5 mmHg ECHO/Echo Complete Interpretation Summary The left ventricular ejection fraction is 50 %. Stage 1 diastolic dysfunction. Mild mitral valve prolapse with mild mitral valve regurgitation. Aortic sclerosis, no stenosis. Mildly dilated aortic root. Ordering Physician: Jaspal Prasad Referring Physician: MD Chidi Kameron Performed By: Irina Bianchi, RDV[place]
--- NOTE | 2025-05-19 19:58 | EKG12_ITS ---
Test Reason : ADMIT Blood Pressure : */* mmHG Vent. 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
--- NOTE | 2025-05-19 21:05 | PCM.HOSP.N ---
Hospitalist Note Patient with repeat EKG with questionable sinus arrhythmia versus PAF/flutter, no reported history. Not certain of rhythm, will continue to monitor on telemetry and will plan repeat EKG. noted plan for a.m. echocardiogram and also stress testing. Troponins have remained stable. Will add magnesium check.
[2025-05-19 21:39] LABS: Magnesium 1.5 mg/dL (1.5-2.2)
[2025-05-20 02:43] VITALS: BP 104/83; PULSE 62; RESP 18; TEMP 37; O2SAT 98
[2025-05-20] MEDS: MENTHOL 226.8 GM JAR 1 APPLIC TOPICAL (02:50)
[2025-05-20 04:55] LABS: Hematocrit 33.5 % (40-54); Hemoglobin 11.1 g/dL (13.0-16.5); Immature Granulocytes Count 0.030 X10^3/uL (0.0-0.0); Mean Corp Hgb Conc 33.1 g/dL (32-36); Mean Corpuscular Volume 96.5 fL (80-94); Mean Platelet Vol. 9.9 fl (6.2-12.0); NRBC Flagged by Analyzer 0 % (0-5); Platelet Count 175 K/mm3 (150-450); RBC Distribution Width CV 14.2 % (11.6-14.6); RBC Distribution Width SD 50.3 fl (35.1-43.9); Red Blood Count 3.47 M/mm3 (4.6-6.2); White Blood Count 9.3 K/mm3 (4.4-11.0)
[2025-05-20 05:21] LABS: Anion Gap 7 (5-15); BUN 30 mg/dL (4-19); BUN/Creat Ratio 31.6 RATIO (10-20); Calcium,Total 9.3 mg/dL (7.6-11.0); Carbon Dioxide 24.6 mmol/L (21.0-32.0); Chloride 105 mmol/L (98-108); Estimated Creatinine Clearance 55.68 ml/min (50-250); Glucose 110 mg/dL (70-99); Potassium 4.3 mmol/L (3.3-5.1)
[2025-05-20 05:40] VITALS: BP 102/55; PULSE 62; RESP 18; TEMP 36.6; O2SAT 94
[2025-05-20] MEDS: Aspirin E.C. 81 MG Tablet PO (05:43)
--- NOTE | 2025-05-20 07:00 | EKG12_ITS ---
Test Reason : ARRYTH Blood Pressure : */* mmHG Vent. Rate : 61 BPM Atrial Rate : 61 BPM P-R Int : 200 ms QRS Dur : 142 ms QT Int : 422 ms P-R-T Axes : 29 -71 23 degrees QTcB Int : 424 ms Normal sinus rhythm Left axis deviation Left bundle branch block Abnormal ECG When compared with ECG of 19-May-2025 20:19, MANUAL COMPARISON REQUIRED DATA IS UNCONFIRMED Confirmed by Juan Brown ([id number]), newspaper editor managing ADITYA JUAREZ ([id number]) on 05/21/2025 7:54:39 AM Referred By: Confirmed By: Juan Brown
[2025-05-20] MEDS: Albuterol 2.5 MG/3 ML VIAL.NEB. INHALATION (07:23)
[2025-05-20] MEDS: Budesonide Respules 0.5 MG/2 ML AMPUL.NEB. INHALATION (07:23)
[2025-05-20 07:25] VITALS: PULSE 62; RESP 20; O2SAT 91
[2025-05-20 11:00] VITALS: BP 121/61; PULSE 65; RESP 18; TEMP 36.7; O2SAT 97
[2025-05-20] MEDS: Latanoprost 0.005% 1 Bottle 1 DRP EACH EYE (11:12)
--- NOTE | 2025-05-20 13:48 | STRESSREP ---
Stress Test Report Date: 05/20/2025 Procedure: Pharmacologic stress nuclear imaging study Indications: Chest pain Consent: Per the patient Procedure: The patient underwent pharmacologic (Regadenoson 0.4mg ) evaluation with a peak heart rate of 80 beats per minute (60%predicted maximal heart rate) and a peak blood pressure of 108/72 mmHg. The baseline ECG demonstrated sinus rhythm with left bundle branch block. The peak pharmacologic ECG was nondiagnostic secondary to baseline abnormality. There were no cardiac dysrhythmias pretest, during pharmacologic infusion, or recovery. There was no complaint of chest discomfort during pharmacologic infusion or recovery. The patient was injected with 14.0 millicuries of technetium 99m Cardiolite and subsequently rest SPECT Cardiolite nuclear imaging was obtained in the horizontal long, vertical long, and short axis views. The patient underwent pharmacologic (Regadenoson) evaluation. The patient was injected with 42.2 millicuries of technetium 99m Cardiolite and subsequently stress SPECT Cardiolite nuclear imaging was obtained in the horizontal long, vertical long, and short axis views. A gated Cardiolite study at peak stress was obtained. The examination was stopped secondary to completion of protocol. Rest and stress SPECT Cardiolite nuclear imaging status post realignment, normalization, and attenuation correction demonstrate no fixed or reversible perfusion defects. There is end systolic thickening and brightening. The gated Cardiolite study demonstrates myocardial thickening and inward wall motion. The reported LVEF is 56%. Impression: 1. Pharmacologic (Regadenoson) evaluation 2. Peak pharmacologic ECG with no diagnostic changes secondary to baseline left bundle branch block. 3. There were no cardiac dysrhythmias pretest, during pharmacologic infusion, or recovery. 5. Rest and stress SPECT Cardiolite nuclear imaging demonstrate relative uniform tracer uptake and myocardial perfusion appearing within normal limits. 6. The gated Cardiolite study reports an LVEF of 56%. This note was generated with [employer] software. It may contain incorrect words, spelling, and punctuation that were not noted in checking the note before signing.
--- NOTE | 2025-05-20 14:02 | PCM.DC ---
Discharge Instructions DC O2, CPAP, BIPAP needs Home O2 Discharge instructions: No Dressing / Incision Discharge Activity: Return to Normal Activity Dressing / Incision Call your doctor if you observe: Fever of 101 or Higher, Shortness of breath, Dizziness, Fainting spells, Swelling in the ankles, Chest pain and Increased palpitations (irregular heartbeat) Follow Up Care Test Results: Test results from this visit will be discussed in further detail at your follow-up appointment, if applicable. Discharge Plan Admission Admit Date/Time: 05/19/25 16:52 Attending Provider: Jaspal Prasad Primary Care Provider: Kameron Murillo Discharge Orders/Prescriptions Prescriptions: Continued albuterol sulfate 1 INHALER inhaler 2 puff inhalation Q4H PRN (Reason: Sob &/Or Wheezing) ramipril 10 MG capsule 10 mg PO DAILY Patient Comments: BLOOD PRESSURE pantoprazole 40 MG tablet 40 mg PO DAILY Patient Comments: ACID REFLUX tamsulosin 0.4 MG capsule 0.4 mg PO QHS Patient Comments: PROSTATE cholecalciferol (vitamin D3) 1,000 UNIT tablet 5,000 unit PO TID budesonide-formoterol 1 INHALER inhaler 2 puff inhalation BID fenofibrate 160 MG tablet 160 mg PO DAILY gabapentin 600 mg tablet 600 mg PO TID latanoprost 0.005 % drops 1 drp ophthalmic (eye) DAILY albuterol sulfate 2.5 mg /3 mL (0.083 %) solution for nebulization 2.5 mg continuous nebulization Q4H PRN (Reason: wheezing) Patient Comments: PT HAS NOT USED YET furosemide 20 mg tablet 20 mg PO QODAY aspirin [Adult Low Dose Aspirin] 81 mg tablet,delayed release (DR/EC) 81 mg PO DAILY Referrals / Follow Up: Kameron Murillo MD [Primary Care Provider, Family Practice] Disposition Disposition (needs filled in before D/C Order can be placed): Home, Self Care
--- NOTE | 2025-05-20 14:08 | PHA.DC_ITS ---
Pharmacy [place] Med Reconciliation Pharmacy Service has performed discharge medication reconciliation for this patient. The patient's discharge medication list was reviewed for discrepancies and discrepancies were resolved. Medications at Discharge Home Medications albuterol sulfate 90 mcg/actuation aerosol inhaler 2 puff inhalation Q4H PRN Sob &/Or Wheezing 07/05/14 ramipril 10 mg capsule 10 mg PO DAILY BP 07/05/14 pantoprazole 40 mg tablet,delayed release 40 mg PO DAILY gerd 08/21/14 cholecalciferol (vitamin D3) 25 mcg (1,000 unit) tablet 5,000 unit PO TID Supplement 11/23/14 tamsulosin 0.4 mg capsule 0.4 mg PO QHS Prostate 11/23/14 budesonide-formoterol HFA 160 mcg-4.5 mcg/actuation aerosol inhaler 2 puff inhalation BID Breathing 06/28/18 fenofibrate 160 mg tablet 160 mg PO DAILY cholesterol 04/10/19 albuterol sulfate 2.5 mg/3 mL (0.083 %) solution for nebulization 2.5 mg cont inuous nebulization Q4H PRN wheezing 11/08/24 gabapentin 600 mg tablet 600 mg PO TID neuropathy 11/08/24 latanoprost 0.005 % eye drops 1 drp ophthalmic (eye) DAILY glaucoma 11/08/24 aspirin 81 mg tablet,delayed release (Adult Low Dose Aspirin) 81 mg PO DAILY 05/19/25 furosemide 20 mg tablet 20 mg PO QODAY 05/19/25
--- NOTE | 2025-05-20 14:25 | CASEMGMT ---
Patient has order for discharge. RN CM in to discuss needs at discharge. Patient denies needs or help at discharge. Patient had no further questions or concerns.
--- NOTE | 2025-05-20 14:27 | CHAPLAIN ---
Type of Pastoral Visit _x__ Initial Visit ___ Follow-up Visit ___ On-call Visit ___ General Patient Visit ___ Spiritual Assessment ___ Family Conference ___ Bereavement ___ Rapid Response ___ Code Blue ___ Other (describe below) Pastoral Care Referral From _x__ Patient ___ Family ___ Nurse ___ Physician ___ Core Piler ___ [place]herette Machine Operator ___ Other (describe below) Sacrament/Intervention _x__ Active listening ___ Anointing ___ Mu-Ism ___ Bereavement ___ Communion ___ Theodora exploration ___ ___ Life review _x__ Prayer ___ Reconciliation ___ Sacrament of Sick _x__ Supportive presence ___ Wedding ___ Other (describe below) Pastoral Comments patient remembers this coroner/medical examiner from previous admissions; pt is coming out of the bathroom and reports on his pain; pt wants to get back to bed and does so on his own power; pt insists that this is the pain that I can in with and I don't think it is the heart; this coroner/medical examiner assists pt to use the call button and wants with him for a response; pt is talkative while describing his pain and is focused on what he is experiencing; pt is asked about his that is in the jail and how the pt is coping with that experience; pt speaks of his theodora background and asks for a prayer; presence and prayer given; AEROSPACE QUALITY ENGINEER comes to assist patient
[2025-05-20 14:30] VITALS: BP 104/52; PULSE 67; RESP 18; TEMP 36.7; O2SAT 95
--- NOTE | 2025-05-20 15:44 | PCM.DC.SUM ---
Providers Date of Admission: 05/19/25 Primary Care Physician: Dr. Kameron Murillo MD Reason For Visit: CHEST PAIN Diagnosis Discharge Diagnosis (1) Chest pain: Status: Acute Code(s): R07.9 - Chest pain, unspecified Medications at Discharge Home Medications albuterol sulfate 90 mcg/actuation aerosol inhaler 2 puff inhalation Q4H PRN Sob &/Or Wheezing 07/05/14 ramipril 10 mg capsule 10 mg PO DAILY BP 07/05/14 pantoprazole 40 mg tablet,delayed release 40 mg PO DAILY gerd 08/21/14 cholecalciferol (vitamin D3) 25 mcg (1,000 unit) tablet 5,000 unit PO TID Supplement 11/23/14 tamsulosin 0.4 mg capsule 0.4 mg PO QHS Prostate 11/23/14 budesonide-formoterol HFA 160 mcg-4.5 mcg/actuation aerosol inhaler 2 puff inhalation BID Breathing 06/28/18 fenofibrate 160 mg tablet 160 mg PO DAILY cholesterol 04/10/19 albuterol sulfate 2.5 mg/3 mL (0.083 %) solution for nebulization 2.5 mg continuous nebulization Q4H PRN wheezing 11/08/24 gabapentin 600 mg tablet 600 mg PO TID neuropathy 11/08/24 latanoprost 0.005 % eye drops 1 drp ophthalmic (eye) DAILY glaucoma 11/08/24 aspirin 81 mg tablet,delayed release (Adult Low Dose Aspirin) 81 mg PO DAILY 05/19/25 furosemide 20 mg tablet 20 mg PO QODAY 05/19/25 Hospital Course Operations None Procedures 2-D Echocardiogram and Nuclear stress test Summary of Care Provided Minutes Spent on Discharge: 33 Hospital Course: Per HPI: PACO WHITNEY, is a 89 M who presents to the hospital complaining of chest pain that started on Tuesday. He states that has been intermittent and nothing specifically brings it on though he has noticed that if he tries to take a deep breath he will have pain on his left side. He does not have a previous cardiac history. In the ER he was indicating that his pain may also been a little bit in the abdominal area so CT scan of his abdomen and pelvis is pending though on my read I do not see anything new, he does have a known renal mass, lipase was normal. He does have slightly elevated high-sensitivity troponins, the initial troponin was 67 and subsequent troponin was 64. He does not have any new changes on his EKG, which is nonischemic. With intervention in the emergency room with an aspirin and nitro his pain is resolved. He denies any shortness of breath or lightheadedness. Hospital Course: 1. Chest pain rule out/essential HTN/HLD?89-year-old male presented to the hospital with chest pain that is started on Tuesday and have been intermittent. He has noticed it mostly whenever he tried to take a deep breath but he felt that it was more internal than external chest pain or musculoskeletal chest pain at that time. He did have indeterminant enzymes with his first troponin being 67 and his third being 58, echocardiogram was unremarkable with an EF of 50% and stage I diastolic dysfunction. He had a stress test today that was also negative for ischemia and his EKGs remain negative for ischemia. He was chest pain-free today while ambulating however when he sat down and started taking deep breaths he said that he noticed the pain again and now he thinks that it might be musculoskeletal. Still denies any lightheadedness or dizziness. I discussed with him the possibility for discharge and he expressed understanding of the risks and benefits of going home and would like to go home today. 2. Renal cancer?he has a renal cancer that is extending up to his IVC from the right kidney. He is aware of this as it has been there since approximately 2018 and he states that he is being monitored at the [facility] with ultrasound but they recommended no surgery or chemotherapy at this time as it is slow-growing given his age. 3. 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 His home medications were continued where appropriate Physical Exam Narrative General: Alert, Oriented x3, Cooperative, No apparent distress HEENT: Atraumatic, PERRLA, EOMI, Normocephalic Oral: Moist Mucosa Neck: Supple, No JVD Lungs: Diminished, Normal air movement, No rhonchi, No wheeze, No rales Cardiovascular: Regular rate, Regular Rhythm, Normal S1, Normal S2, No murmurs Abdomen: Soft, Non Tender, Non-Distended, No Hepato-splenomegaly Extremities: No edema, Capillary Refill Less than 3 Seconds Skin: No rashes, No breakdown Musculoskeletal: No Tenderness to Palpation of Joints or Extremities Neurological: No focal neurological deficits, moves all extremities Psych/Mental Status: Normal Affect, Appropriate Weight / BMI Weight Weight: 181 lb 10.574 oz Body Mass Index (BMI) 28.4 ABG / Lab / Microbiology Data 05/20/25 03:56 05/20/25 03:56 Laboratory: Laboratory Results - last 24 hr 05/19/25 15:38: Troponin T Hi Sens 2 Hr 64 H* 05/19/25 18:25: Magnesium 1.5, Troponin T Hi Sens 4Hr 58 H* 05/20/25 03:56: WBC 9.3, RBC 3.47 L, Hgb 11.1 L, Hct 33.5 L, MCV 96.5 H, MCH 32.0, MCHC 33.1, RDW Std Deviation 50.3 H, RDW Coeff of Nohemi 14.2, Plt Count 175, MPV 9.9, Immature Gran % (Auto) 0.300, Neut % (Auto) 70.3 H, Lymph % (Auto) 13.9 L, Cook % (Auto) 13.7 H, Eos % (Auto) 1.3, Baso % (Auto) 0.5, Absolute Neuts (auto) 6.5, Absolute Lymphs (auto) 1.29, Nucleated RBC % 0, Sodium 136, Potassium 4.3, Chloride 105, Carbon Dioxide 24.6, Anion Gap 7, BUN 30 H, Creatinine 0.96, Estim Creat Clear Calc 55.68, Est GFR (MDRD) Non-Af 77, BUN/Creatinine Ratio 31.6 H, Glucose 110 H, Calcium 9.3 Radiography Diagnostic Testing: Radiology Impression Abdomen/Pelvis CT 05/19/25 15:00 IMPRESSION: 1. 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 Regional adenopathy in the aortocaval and retrocaval regions. Retrospectively, findings are similar to February 2025. The right renal neoplasm currently measures 4.1 cm, previously measured 2.1 cm in 2018. 2. No superimposed acute findings in the abdomen or pelvis. Colonic diverticulosis without diverticulitis. [facility] Echocardiogram 11/02/25 19:53 Interpretation Summary The left ventricular ejection fraction is 50 %. Stage 1 diastolic dysfunction. Mild mitral valve prolapse with mild mitral valve regurgitation. Aortic sclerosis, no stenosis. Mildly dilated aortic root. Ordering Physician: Jaspal Prasad Referring Physician: MD Kameron Murillo Performed By: Irina Bianchi RDCS D/C Instructions Call your doctor if you observe: Fever of 101 or Higher, Shortness of breath, Dizziness, Fainting spells, Swelling in the ankles, Chest pain and Increased palpitations (irregular heartbeat) DC O2, CPAP, BIPAP Needs Home O2 Discharge instructions: No Meaningful Use Info Meaningful Use Meaningful Use Diagnoses (Choose all that apply): None applicable Discharge Plan Admission Admit Date/Time: 05/19/25 16:52 Attending Provider: Jaspal Prasad Primary Care Provider: Kameron Murillo Discharge Orders/Prescriptions Prescriptions: Continued albuterol sulfate 1 INHALER inhaler 2 puff inhalation Q4H PRN (Reason: Sob &/Or Wheezing) ramipril 10 MG capsule 10 mg PO DAILY Patient Comments: BLOOD PRESSURE pantoprazole 40 MG tablet 40 mg PO DAILY Patient Comments: ACID REFLUX tamsulosin 0.4 MG capsule 0.4 mg PO QHS Patient Comments: PROSTATE cholecalciferol (vitamin D3) 1,000 UNIT tablet 5,000 unit PO TID budesonide-formoterol 1 INHALER inhaler 2 puff inhalation BID fenofibrate 160 MG tablet 160 mg PO DAILY gabapentin 600 mg tablet 600 mg PO TID latanoprost 0.005 % drops 1 drp ophthalmic (eye) DAILY albuterol sulfate 2.5 mg /3 mL (0.083 %) solution for nebulization 2.5 mg continuous nebulization Q4H PRN (Reason: wheezing) Patient Comments: PT HAS NOT USED YET furosemide 20 mg tablet 20 mg PO QODAY aspirin [Adult Low Dose Aspirin] 81 mg tablet,delayed release (DR/EC) 81 mg PO DAILY Referrals / Follow Up: Kameron Murillo MD [Primary Care Provider, Family Practice] Disposition Disposition (needs filled in before D/C Order can be placed): Home, Self Care Charges/Coding Visit Charges Inpatient E&M: 10815 Disch Hosp >30min
== END 2025-05-20 16:17 | disposition home or self-care (01) ==
LOC: ED 17:39 → PCU 19:19
PROVIDERS: Family Medicine; Admitting Provider Family Medicine; Emergency Provider Emergency Medicine; PCP Family Medicine; Visit Provider Family Medicine
DX: C64.1 Malignant neoplasm of right kidney, except renal pelvis (principal); J44.9 Chronic obstructive pulmonary disease, unspecified; I10 Essential (primary) hypertension; H40.9 Unspecified glaucoma; R79.89 Other specified abnormal findings of blood chemistry; G62.9 Polyneuropathy, unspecified; Z87.891 Personal history of nicotine dependence; K21.9 Gastro-esophageal reflux disease without esophagitis; I77.819 Aortic ectasia, unspecified site; Z86.73 Personal history of transient ischemic attack (TIA), and cerebral infarction without residual deficits; N40.1 Benign prostatic hyperplasia with lower urinary tract symptoms; N13.8 Other obstructive and reflux uropathy; Z90.49 Acquired absence of other specified parts of digestive tract; E78.5 Hyperlipidemia, unspecified
CPT/HCPCS: 36415; 71045; 74177; 78452; 80048; 80076; 83690; 83735; 84484; 85025; 93005; 93017; 93306; 94640; 97162; 99221; 99285; A9500; Q9967; A4216; G0378; J2785